=== PATIENT | male | born 1985 | race American Indian/Alaskan Native ===

== ENCOUNTER 2018-06-05 23:47 | Emergency (ER) | payer SELFPAY ==
[2018-06-05] MEDS ORDERED: ZOFRAN ONE (23:56)
[2018-06-05] MEDS ORDERED: NACL 0.9% 1000 ML 1,000 ML ONE (23:57)
[2018-06-06] MEDS ORDERED: NACL 0.9% 1000 ML 1,000 ML IV ONE ×2 (00:10→01:25)
[2018-06-06] MEDS ORDERED: ZOFRAN IV ONE (00:10)
[2018-06-06] MEDS ORDERED: PEPCID IV ONE (00:18)
[2018-06-06] MEDS ORDERED: HALDOL IM ONE (00:18)
--- NOTE | 2018-06-06 00:19 | Emergency Department Report ---
ED General Adult HPI - General Chief complaint: Nausea/Vomiting/Diarrhea Stated complaint: BLOOD IN EMESIS Time Seen by Provider: 06/06/18 00:13 Source: patient, EMS (ems notes not available at time of chart dictation), RN notes reviewed Mode of arrival: Stretcher Limitations: No Limitations - History of Present Illness Initial comments: This is a 32-year-old male who is unknown to this provider previously. Patient reports being a type II diabetic since the age of 18, also reports a history of appendectomy. he does not know his hemoglobin A1c. He presents to the ER with a complaint of left lower quadrant cramping, initial nonbloody, nonbilious emesis, and then subsequent multiple episodes of emesis, which have become coffee ground. His symptoms are constant, did not radiate anywhere, and did not have exacerbating or relieving factors. He denies testicular pain, and urinary symptoms. He denies cannabis consumption. He indicates his symptoms have no change when taking a hot bath or hot shower. -: Gradual Location: abdomen Quality: aching Consistency: constant Improves with: none Worsens with: none Associated Symptoms: diaphoresis, loss of appetite, malaise, nausea/vomiting, weakness. denies: confusion, chest pain, cough, fever/chills, headaches, rash, seizure, shortness of breath, syncope - Related Data Previous Rx's Medication Instructions Recorded Last Taken Type Acetaminophen [Tylenol Arthritis] 650 mg PO Q6HR PRN #30 tablet.er 06/06/18 Unknown Rx Famotidine [Pepcid] 20 mg PO BID #60 tablet 06/06/18 Unknown Rx Metoclopramide [Reglan] 10 mg PO QID PRN #30 tablet 06/06/18 Unknown Rx Promethazine [Phenergan SUPPOS] 50 mg AR Q6H PRN #20 supp.rect 06/06/18 Unknown Rx Allergies Allergy/AdvReac Type Severity Reaction Status Date / Time No Known Allergies Allergy Unverified 06/06/18 00:04 ED Review of Systems ROS: Stated complaint: BLOOD IN EMESIS Other details as noted in HPI Constitutional: malaise Eyes: denies: eye discharge ENT: denies: epistaxis Respiratory: denies: cough Cardiovascular: denies: chest pain Gastrointestinal: abdominal pain, nausea, vomiting Genitourinary: denies: urgency, dysuria Neurological: weakness ED Past Medical Hx - Past Medical History Hx Diabetes: Yes - Surgical History Past Surgical History?: No - Social History Smoking Status: Never Smoker Substance Use Type: None - Medications Home Medications: Home Medications Medication Instructions Recorded Confirmed Last Taken Type Acetaminophen [Tylenol Arthritis] 650 mg PO Q6HR PRN #30 tablet.er 06/06/18 Unknown Rx Famotidine [Pepcid] 20 mg PO BID #60 tablet 06/06/18 Unknown Rx Metoclopramide [Reglan] 10 mg PO QID PRN #30 tablet 06/06/18 Unknown Rx Promethazine [Phenergan SUPPOS] 50 mg AR Q6H PRN #20 supp.rect 06/06/18 Unknown Rx ED Physical Exam - General Limitations: No Limitations General appearance: alert, in distress - Head Head exam: Present: atraumatic, normocephalic - Eye Eye exam: Present: normal appearance, EOMI. Absent: nystagmus - ENT ENT exam: Present: normal exam, mucous membranes dry, normal external ear exam - Neck Neck exam: Present: normal inspection, full ROM - Respiratory Respiratory exam: Present: normal lung sounds bilaterally. Absent: respiratory distress - Cardiovascular Cardiovascular Exam: Present: normal rhythm, tachycardia, normal heart sounds. Absent: systolic murmur, diastolic murmur, rubs, gallop - GI/Abdominal GI/Abdominal exam: Present: soft. Absent: distended, tenderness, guarding, rebound, rigid, pulsatile mass - Rectal Rectal exam: Present: deferred - exam: Present: normal inspection, other (there is no testicular tenderness. There is normal testicular lie bilaterally. There is normal cremasteric reflex bilaterally.). Absent: testicular tenderness External exam: Present: normal external exam, other (escorted by nurse Ivette Singh) - Extremities Exam Extremities exam: Present: normal inspection, full ROM, normal capillary refill , other (2+ pulses noted in the bilateral upper, lower extremities. Compartments soft. No long bony tenderness. The pelvis is stable.). Absent: pedal edema, joint swelling, calf tenderness - Back Exam Back exam: Present: normal inspection, full ROM. Absent: tenderness, CVA tenderness (R), paraspinal tenderness, vertebral tenderness - Neurological Exam Neurological exam: Present: alert, CN II-XII intact, other (Extraocular movements intact. Tongue midline. No facial droop. Facial sensation intact to light touch in the V1, V2, V3 distribution bilaterally. 5 and 5 strength in 4 extremities.. Sensation is intact to light touch in 4 extremities.). Absent : motor sensory deficit - Psychiatric Psychiatric exam: Present: anxious - Skin Skin exam: Present: warm, dry, intact, normal color. Absent: rash ED Course Vital Signs 06/06/18 06/06/18 06/06/18 00:06 00:16 00:19 Temperature 98.7 F Pulse Rate 106 H 103 H Respiratory 18 20 Rate Blood Pressure 172/113 Blood Pressure 173/113 [Right] O2 Sat by Pulse 100 100 100 Oximetry 06/06/18 06/06/18 06/06/18 00:30 00:46 00:50 Temperature Pulse Rate 100 H 98 H 104 H Respiratory 12 15 17 Rate Blood Pressure 210/103 210/103 210/103 Blood Pressure [Right] O2 Sat by Pulse 96 97 95 Oximetry 06/06/18 06/06/18 06/06/18 00:52 00:54 00:56 Temperature Pulse Rate 98 H 106 H 105 H Respiratory 13 14 16 Rate Blood Pressure 210/103 210/103 210/103 Blood Pressure [Right] O2 Sat by Pulse 96 98 98 Oximetry 06/06/18 06/06/18 06/06/18 00:58 01:00 01:02 Temperature Pulse Rate 110 H 109 H 104 H Respiratory 17 11 L 15 Rate Blood Pressure 210/103 173/66 173/66 Blood Pressure [Right] O2 Sat by Pulse 98 98 99 Oximetry 06/06/18 06/06/18 06/06/18 01:04 01:06 01:08 Temperature Pulse Rate 100 H 105 H 101 H Respiratory 13 17 13 Rate Blood Pressure 173/66 173/66 173/66 Blood Pressure [Right] O2 Sat by Pulse 97 96 98 Oximetry 06/06/18 06/06/18 06/06/18 01:10 01:12 01:14 Temperature Pulse Rate 107 H 103 H 108 H Respiratory 17 12 20 Rate Blood Pressure 173/66 210/103 210/103 Blood Pressure [Right] O2 Sat by Pulse 99 99 98 Oximetry 06/06/18 06/06/18 01:16 01:18 Temperature Pulse Rate 106 H 104 H Respiratory 13 15 Rate Blood Pressure 210/103 210/103 Blood Pressure [Right] O2 Sat by Pulse 99 99 Oximetry - Reevaluation(s) Reevaluation #1: 06/06/18 00:46 Differential diagnosis, including not limited to: Constipation, gastroparesis, rheumatoid hyperemesis syndrome, cyclic vomiting syndrome, Ayaka-Cevallos tear Assessment and plan: 32-year-old male, diabetic, hyperglycemic, presenting initially with nontraumatic nausea and vomiting, and lower abdominal cramping. He is afebrile, and has no abdominal tenderness, rebound or guarding. Also a diabetic gastroparesis. He is medicated with Zofran, IV fluids, and 2.5 mg of IM Haldol. He will also be given insulin. Laboratory studies pending. Reevaluation #2: 06/06/18 01:26 Patient is looking much improved. He is currently sleeping. Heart rate in the low 100s. Blood pressure in the 170s. Laboratories demonstrate acute renal insufficiency, mild hyperglycemia and no anion gap acidosis. Does not have significant anemia. Hemodynamically stable. He can follow up with outpatient primary care for his mild renal insufficiency, mild anemia and hyperglycemia. Urinalysis is pending. Abdomen remained soft on repeat examination. Reevaluation #3: 06/06/18 02:37 Heart rate in the 90s. Blood pressure in the 150s, 160s. No active vomiting. Sleeping comfortably. Belly soft on yet another repeat examination. Patient appears to be medically suitable for discharge at this time. ED Medical Decision Making - Lab Data Result diagrams: 06/06/18 00:24 06/06/18 00:25 Critical care attestation.: If time is entered above; I have spent that time in minutes in the direct care of this critically ill patient, excluding procedure time. ED Disposition Clinical Impression: Nausea and vomiting Disposition: DC-01 TO HOME OR SELFCARE Is pt being admited?: No Does the pt Need Aspirin: No Condition: Stable Instructions: Acute Nausea and Vomiting (ED) Additional Instructions: Avoid consumption of alcohol, Motrin, ibuprofen, Naprosyn, Aleve. Laboratory studies indicated high blood sugar level as well as mild renal impairment. This is most likely coming from dehydration. Symptoms also most likely coming from combination of gastroparesis, secondary to diabetes, and small tear in the lining of the stomach (Ayaka Cevallos tear.) Take the pain medication, nausea medication as needed/directed. Take the Reglan first, and then use the Phenergan suppository as needed for intractable nausea, vomiting. Follow up with a primary care doctor within the next month for multiple abnormalities noted today, including mild renal insufficiency, as well as elevated blood pressure and elevated blood sugar level. Long-term complications of the aforementioned can cause stroke, disability, paralysis, loss of quality of life. Dr. Kraus is a local primary care doctor. Alternatively, the patient may follow up with the nephrology specialist, such as Dr. Reddy, for the mild renal impairment. Patient should also follow up with the gastroenterology specialist within the next [address] Gonzales is a local gastroenterology specialist. Please return to the ER right away with new pain, worsened pain, migration of pain, intractable nausea or vomiting, confusion, fevers or chills, inability to tolerate liquid feeds. Referrals: PRIMARY CARE, [Primary Care Provider] - 3-5 Days MARSHA KRAUS MD [Staff Physician] - 3-5 Days HELENA TATE MD [Staff Physician] - 3-5 Days CARLYN GONZALES MD [Staff Physician] - 3-5 Days
[2018-06-06] MEDS ORDERED: HumuLIN R IV ONE (00:42)
[2018-06-06 00:56] LABS: Hematocrit 32.2 % (35.5-45.6); Hemoglobin 10.4 gm/dl (11.8-15.2); Mean Corpuscular HGB Conc 32 % (32-34); Mean Corpuscular Hemoglobin 26 pg (28-32); Mean Corpuscular Volume 82 fl (84-94); Platelet Count 284 K/mm3 (140-440); Red Blood Count 3.94 M/mm3 (3.65-5.03)
[2018-06-06 01:12] LABS: Albumin 3.7 g/dL (3.9-5); Calcium 9.4 mg/dL (8.4-10.2)
[2018-06-06] MEDS ORDERED: APRESOLINE IV ONE (01:21)
[2018-06-06] MEDS ORDERED: HALDOL IM PRN (04:22)
[2018-06-06 05:44] VITALS: BP 162/99
== END 2018-06-06 05:46 | disposition home or self-care (01) ==
LOC: EDSEX → ED 23:47
DX: R11.2 Nausea with vomiting, unspecified (principal); R10.32 Left lower quadrant pain; R53.1 Weakness; E11.9 Type 2 diabetes mellitus without complications
CPT/HCPCS: 36415; 80053; 82805; 82962; 83690; 85027; 96361; 96372; 96374; 96375; 99284; J1630; J2405; J7030; J1815

== ENCOUNTER 2018-11-12 06:33 | Inpatient (IN) | payer SELFPAY ==
[2018-11-12] MEDS ORDERED: NACL 0.9% 1000 ML 1,000 ML IV ONE ×2 (07:13→12:52)
[2018-11-12] MEDS ORDERED: ZOFRAN IV ONE (08:03)
[2018-11-12] MEDS ORDERED: PROTONIX IV ONE (08:05)
[2018-11-12] MEDS ORDERED: CATAPRES PO ONE (08:09)
--- NOTE | 2018-11-12 08:10 | Emergency Department Report ---
HPI - General Chief Complaint: GI Bleed Time Seen by Provider: 11/12/18 07:55 - HPI HPI: Room 7 The patient is a 33-year-old male presenting with a chief complaint of hematemesis. The patient states this morning he developed vomiting with streaks of blood. The patient has a history of severe ulcerative esophagitis seen on EGD approximately one week ago. Patient states he has been compliant with all of his medication including his Protonix. Patient denies bright red blood per rectum or melena. Patient denies pain of any type Location: Gastrointestinal system Duration: Onset this morning Quality: Painless Severity: [See above] Modifying factors: [see above] Context: [see above] Mode of transportation: Unknown ED Past Medical Hx - Past Medical History Previous Medical History?: Yes Hx Hypertension: Yes Hx Diabetes: Yes Additional medical history: Ulcerative esophagitis - Surgical History Hx Appendectomy: Yes - Family History Family history: no significant - Social History Smoking Status: Never Smoker Substance Use Type: None (denies illicit drug use) - Medications Home Medications: Home Medications Medication Instructions Recorded Confirmed Last Taken Type Acetaminophen [Tylenol Arthritis] 650 mg PO Q6HR PRN #30 tablet.er 10/25/18 11/01/18 10/31/18 09:00 Rx Labetalol [Normodyne TAB] 300 mg PO BID #180 tablet 11/03/18 Unknown Rx Metoclopramide [Reglan TAB] 10 mg PO QID PRN #30 tablet 11/03/18 Unknown Rx Pantoprazole [Protonix TAB] 40 mg PO BID #60 tablet 11/03/18 Unknown Rx Promethazine [Phenergan SUPPOS] 50 mg LA Q6H PRN #20 supp.rect 11/03/18 Unknown Rx amLODIPine [Norvasc] 10 mg PO QDAY #30 tablet 11/03/18 Unknown Rx ED Review of Systems ROS: Stated complaint: EMESIS/BLOOD Other details as noted in HPI Constitutional: no symptoms reported Eyes: denies: eye pain ENT: denies: throat pain Respiratory: no symptoms reported Cardiovascular: denies: chest pain Endocrine: no symptoms reported Gastrointestinal: nausea, vomiting, hematemesis. denies: abdominal pain, melena, hematochezia Genitourinary: denies: dysuria Musculoskeletal: denies: back pain Neurological: denies: headache Physical Exam - Physical Exam Vital Signs: Vital Signs 11/12/18 07:09 Temperature 99.2 F Pulse Rate 117 H Respiratory 20 Rate Blood Pressure 214/113 O2 Sat by Pulse 98 Oximetry Physical Exam: GENERAL: The patient is well-developed well-nourished male lying on stretcher holding an emesis bag but not appearing to be in acute distress HEENT: Normocephalic. Atraumatic. Extraocular motions are intact. Patient has moist mucous membranes. Dried blood around mouth and nose NECK: Supple. Trachea midline CHEST/LUNGS: Clear to auscultation. There is no respiratory distress noted. HEART/CARDIOVASCULAR: Regular. There is no tachycardia. There is no gallop rub or murmur. ABDOMEN: Abdomen is soft, nontender. Patient has normal bowel sounds. There is no abdominal distention. SKIN: There is no rash. There is no edema. There is no diaphoresis. NEURO: The patient is awake, alert, and oriented. The patient is cooperative. The patient has normal speech MUSCULOSKELETAL: There is no evidence of acute injury. ED Course Vital Signs 11/12/18 07:09 Temperature 99.2 F Pulse Rate 117 H Respiratory 20 Rate Blood Pressure 214/113 O2 Sat by Pulse 98 Oximetry - Reevaluation(s) Reevaluation #1: 11/12/18 14:42 Patient has failed po challenge 2 despite medication. Will admit the patient to the hospital for intractable nausea and vomiting ED Medical Decision Making - Lab Data Result diagrams: 11/12/18 07:41 11/12/18 07:41 - EKG Data -: EKG Interpreted by Pa EKG shows normal: sinus rhythm Rate: tachycardia (116 bpm) - EKG Data When compared to previous EKG there are: previous EKG unavailable Interpretation: other (no ischemic changes seen) - Differential Diagnosis GI bleed Critical care attestation.: If time is entered above; I have spent that time in minutes in the direct care of this critically ill patient, excluding procedure time. ED Disposition Clinical Impression: Intractable nausea and vomiting, Ulcerative esophagitis Disposition: OP ADMIT IP TO THIS HOSP Is pt being admited?: Yes Does the pt Need Aspirin: No Condition: Fair Referrals: PRIMARY CARE,MD [Primary Care Provider] - 3-5 Days Forms: Accompanied Note Time of Disposition: 14:43 (hospitalist paged (Dr Gaytan))
[2018-11-12 08:21] LABS: Basophils # (Auto) 0.1 K/mm3 (0.0-0.1); Basophils % (Auto) 1.1 % (0.0-1.8); Eosinophils % (Auto) 0.1 % (0.0-4.3); Hematocrit 33.4 % (35.5-45.6); Hemoglobin 10.9 gm/dl (11.8-15.2); Lymphocytes # (Auto) 1.3 K/mm3 (1.2-5.4); Lymphocytes % (Auto) 14.5 % (13.4-35.0); Mean Corpuscular HGB Conc 33 % (32-34); Mean Corpuscular Volume 85 fl (84-94); Monocytes # (Auto) 0.6 K/mm3 (0.0-0.8); Monocytes % (Auto) 6.1 % (0.0-7.3); Platelet Count 437 K/mm3 (140-440); Red Blood Count 3.93 M/mm3 (3.65-5.03); Red Cell Distribution Width 15.4 % (13.2-15.2)
[2018-11-12 08:26] LABS: Albumin 2.6 g/dL (3.9-5); Calcium 9.2 mg/dL (8.4-10.2)
[2018-11-12 08:30] LABS: INR 0.94 (0.87-1.13)
[2018-11-12] MEDS ORDERED: NORMODYNE IV ONE ×2 (10:49→10:52)
[2018-11-12] MEDS ORDERED: REGLAN IV ONE (13:45)
[2018-11-12] MEDS ORDERED: PHENERGAN PR ONE (14:42)
[2018-11-12] MEDS ORDERED: SODIUM CHLORIDE FLUSH SYRINGE 10 ML IV PRN (21:20)
[2018-11-12] MEDS ORDERED: DILAUDID IV PRN (21:20)
[2018-11-12] MEDS ORDERED: TYLENOL PO PRN (21:20)
[2018-11-12] MEDS ORDERED: REGLAN PO PRN (21:20)
--- NOTE | 2018-11-12 21:20 | Event Note ---
Date: 11/12/18 See H/p in reports Upper GI Bleed
[2018-11-12] MEDS: D5NS 1,000 ML IV SCH (22:35)
[2018-11-12] MEDS: SODIUM CHLORIDE FLUSH SYRINGE 10 ML IV SCH (22:35)
[2018-11-12] MEDS: PROTONIX 80 MG in NACL 0.9% 100 ML IV SCH (22:35)
[2018-11-13 00:23] LABS: Hematocrit 29.5 % (35.5-45.6); Hemoglobin 9.9 gm/dl (11.8-15.2)
[2018-11-13] MEDS ORDERED: APRESOLINE IV PRN ×2 (00:31→07:33)
[2018-11-13] MEDS: PROTONIX 80 MG in NACL 0.9% 100 ML IV SCH (06:17)
[2018-11-13 06:33] LABS: Basophils # (Auto) 0.1 K/mm3 (0.0-0.1); Basophils % (Auto) 0.8 % (0.0-1.8); Eosinophils % (Auto) 0.2 % (0.0-4.3); Hematocrit 28.9 % (35.5-45.6); Hemoglobin 9.8 gm/dl (11.8-15.2); Lymphocytes % (Auto) 19.2 % (13.4-35.0); Mean Corpuscular HGB Conc 34 % (32-34); Mean Corpuscular Volume 84 fl (84-94); Monocytes # (Auto) 0.7 K/mm3 (0.0-0.8); Platelet Count 378 K/mm3 (140-440); Red Blood Count 3.43 M/mm3 (3.65-5.03); Red Cell Distribution Width 15.2 % (13.2-15.2)
[2018-11-13 07:01] LABS: Albumin 2.5 g/dL (3.9-5); Calcium 8.4 mg/dL (8.4-10.2)
--- NOTE | 2018-11-13 07:57 | History and Physical Report ---
CHIEF COMPLAINT: Hematemesis. HISTORY OF PRESENT ILLNESS: A 33-year-old male comes in for vomiting of blood since morning. The patient apparently had a severe ulcerative esophagitis on EGD approximately one week ago. The patient has been compliant with his medications including Protonix. Denies any bright red blood per rectum or melena. PAST MEDICAL HISTORY: Ulcerative esophagitis, hypertension, diabetes. PAST SURGICAL HISTORY: Appendectomy. FAMILY HISTORY: No significant family history. SOCIAL HISTORY: Does not smoke. No drugs. CURRENT MEDICATIONS: Protonix 40 mg twice a day, amlodipine 10 mg once a day, labetalol 300 mg twice a day. REVIEW OF SYSTEMS: Significant for hematemesis. No syncope. No melena, no bright red blood per rectum. A 14-point review of systems done. PHYSICAL EXAMINATION: GENERAL: Young male, cooperative during examination. VITAL SIGNS: Blood pressure is 209/120, temperature is 99.2, pulse is 100, respirations are 18. HEENT: Unremarkable. NECK: Supple, no lymphadenopathy, no thyromegaly. LUNGS: Clear to auscultation and percussion. Good air entry. CARDIOVASCULAR: S1, S2 heard. No gallop, no murmur, no rub. Apical impulse in left fifth intercostal space and midclavicular line. ABDOMEN: Soft and benign. No hepatosplenomegaly. No guarding, no rigidity. EXTREMITIES: Good pedal pulses. No pedal edema. CENTRAL NERVOUS SYSTEM: Alert and oriented x 4, nonfocal exam. SKIN: Normal. LABORATORY DATA: Significant for white count of 9300, H and H of 10.9 and 33.4, platelet count is 432,000. Electrolytes: Sodium is 142, potassium is 4.2, bicarbonate is 18, BUN and creatinine is 25 and 2.5. Total protein is 2.9, albumin is 2.6, glucose is 297. ASSESSMENT AND PLAN: 1. Upper gastrointestinal bleed. IV Protonix drip started. The patient's hemoglobin and hematocrit check q. 6-8 hours. Transfuse if necessary. If H and H is less than 8 and 24. IV fluids. 2. Uncontrolled diabetes. Accu-Cheks and insulin. 3. Hypertensive emergency. Catapres patch initiated. Also, hydralazine IV q.3 hours p.r.n. 4. Acute kidney injury. IV fluids for the time being. 5. Malnutrition. The patient's albumin of 2.6. We will get a dietary consult. 6. Deep venous thrombosis prophylaxis, SCDs only. JOB# [id number] MORRIS/NTS
[2018-11-13] MEDS: ZOFRAN IV PRN ×2 (09:35→23:20)
[2018-11-13 09:45] LABS: Hematocrit 27.9 % (35.5-45.6); Hemoglobin 9.4 gm/dl (11.8-15.2)
[2018-11-13] MEDS: HumaLOG SUB-Q SCH ×3 (10:00→17:39)
[2018-11-13] MEDS ORDERED: CATAPRES-TTS PATCH TD SCH (10:00)
--- NOTE | 2018-11-13 10:17 | Gastroenterology Consultation ---
<EZEQUIEL SMITH - Last Filed: 11/13/18 10:42> History of Present Illness - Reason for Consult Consult date: 11/13/18 UGIB Requesting physician: BRENDA MORFIN - History of Present Illness Patient is a 33 y/o male with PMH of HTN, DM (uncontrolled), PUD, appendectomy, and renal insufficiency who presented to ED with c/o hematemesis to which GI has been consulted. Patient is previously known to our service from 2 prior hospitalizations/consults within the last month for similar symptoms with patient undergoing an EGD on 10/20/18 and again on 11/01/18 that revealed ulcerative esophagitis. This morning patient was resting in bed w/o acute d istress. Reports onset of N/V that began on Saturday (3 days ago) with first few episodes with non-bloody emesis and then developed hematemesis with bright red blood. Last episode of hematemesis was yesterday morning (no active signs of bleeding overnight or this am per pt and nursing). No melena or hematochezia. Denies fever, CP, SOB, wt loss, abd pain, or LGI symptoms. No NSAID or alcohol use. No hx of liver disease. Admits to being noncompliant with taking PPI at home as previously recommended due to cost. Past History Past Medical History: diabetes, hypertension, other (PUD, renal insufficiency) Past Surgical History: appendectomy Social history: denies: smoking, alcohol abuse Family history: hypertension Medications and Allergies Allergies Allergy/AdvReac Type Severity Reaction Status Date / Time No Known Allergies Allergy Unverified 06/06/18 00:04 Home Medications Medication Instructions Recorded Confirmed Last Taken Type Labetalol [Normodyne TAB] 300 mg PO BID #180 tablet 11/03/18 11/12/18 Unknown Rx Metoclopramide [Reglan TAB] 10 mg PO QID PRN #30 tablet 11/03/18 11/12/18 Unknown Rx Pantoprazole [Protonix TAB] 40 mg PO BID #60 tablet 11/03/18 11/12/18 Unknown Rx Promethazine [Phenergan SUPPOS] 50 mg TN Q6H PRN #20 supp.rect 11/03/18 11/12/18 Unknown Rx amLODIPine [Norvasc] 10 mg PO QDAY #30 tablet 11/03/18 11/12/18 Unknown Rx Active Meds: Active Medications Acetaminophen (Tylenol) 650 mg PO Q4H PRN PRN Reason: Pain MILD(1-3)/Fever >100.5/LANZA Clonidine HCl (Catapres-Tts Patch) 0.2 mg TD Th KESHIA Hydralazine HCl (Apresoline) 10 mg IV Q3H PRN PRN Reason: Hypertension Hydralazine HCl (Apresoline) 10 mg IV Q6H KESHIA Hydromorphone HCl (Dilaudid) 0.5 mg IV Q3H PRN PRN Reason: Pain , Severe (7-10) Dextrose/Sodium Chloride (D5ns) 1,000 mls @ 100 mls/hr IV DIRECT [facility] Last Admin: 11/12/18 22:35 Dose: 100 mls/hr Documented by: Pantoprazole Sodium 80 mg/ (Sodium Chloride) 100 mls @ 10 mls/hr IV DIRECT KESHIA Last Admin: 11/13/18 06:17 Dose: 8 mg/hr, 10 mls/hr Documented by: Insulin Human Lispro (Humalog) 0 unit SUB-Q Q6HR [facility]; Protocol Metoclopramide HCl (Reglan) 10 mg PO Q6H PRN PRN Reason: Nausea And Vomiting Last Admin: 11/12/18 22:55 Dose: 10 mg Documented by: Ondansetron HCl (Zofran) 4 mg IV Q3H PRN PRN Reason: Nausea And Vomiting Last Admin: 11/13/18 09:35 Dose: 4 mg Documented by: Sodium Chloride (Sodium Chloride Flush Syringe 10 Ml) 10 ml IV BID [facility] Last Admin: 11/12/18 22:35 Dose: 10 ml Documented by: Sodium Chloride (Sodium Chloride Flush Syringe 10 Ml) 10 ml IV PRN PRN PRN Reason: LINE FLUSH medications reviewed/updated as required Review of Systems - Review of Systems All systems: negative Gastrointestinal: hematemesis Exam - Constitutional Vital Signs: Temp Pulse Resp BP Pulse Ox 99.2 F 92 H 18 199/103 100 11/13/18 05:25 11/13/18 06:08 11/13/18 05:25 11/13/18 06:08 11/12/18 21:45 General appearance: no acute distress - Respiratory Respiratory: bilateral: CTA - Cardiovascular Rhythm: regular Heart Sounds: Present: S1 & S2 - Gastrointestinal General gastrointestinal: Present: soft, non-tender, non-distended, normal bowel sounds - Neurologic Neurological: alert and oriented x3 - Labs CBC & Chem 7: 11/13/18 09:11 11/13/18 05:48 Lab Results: Laboratory Results - last 24 hr 11/12/18 11/13/18 11/13/18 23:51 05:48 05:48 WBC 10.3 RBC 3.43 L Hgb 9.9 L 9.8 L Hct 29.5 L 28.9 L MCV 84 MCH 29 MCHC 34 RDW 15.2 Plt Count 378 Lymph % (Auto) 19.2 [place] % (Auto) 7.0 Eos % (Auto) 0.2 Baso % (Auto) 0.8 Lymph # 2.0 [place] # 0.7 Eos # 0.0 Baso # 0.1 Seg Neutrophils % 72.8 H Seg Neutrophils # 7.5 Sodium 144 Potassium 4.3 Chloride 111.0 H Carbon Dioxide 24 Anion Gap 13 BUN 25 H Creatinine 2.3 H Estimated GFR 40 BUN/Creatinine Ratio 11 Glucose 283 H Calcium 8.4 Total Bilirubin 0.40 AST 16 ALT 12 Alkaline Phosphatase 56 Total Protein 4.8 L Albumin 2.5 L Albumin/Globulin Ratio 1.1 11/13/18 09:11 WBC RBC Hgb 9.4 L Hct 27.9 L MCV MCH MCHC RDW Plt Count Lymph % (Auto) [place] % (Auto) Eos % (Auto) Baso % (Auto) Lymph # [place] # Eos # Baso # Seg Neutrophils % Seg Neutrophils # Sodium Potassium Chloride Carbon Dioxide Anion Gap BUN Creatinine Estimated GFR BUN/Creatinine Ratio Glucose Calcium Total Bilirubin AST ALT Alkaline Phosphatase Total Protein Albumin Albumin/Globulin Ratio Assessment and Plan 1.UGIB 2.DM (uncontrolled) -H/H 9.4/27.9-stable compared to previous labs -continue to monitor H/H and transfuse as needed -patient reports N/V x 3 days with hematemesis noted after multiple episodes of vomiting. No melena or hematochezia. -no active signs of bleeding overnight or this am -currently HD stable -recent EGDs on 10/20/18 and 11/01/18 for similar symptoms showed ulcerative esophagitis -etiology-likely 2/2 known ulcerative esophagitis vs other (M-W tear?) -no plans to repeat EGD at this time unless overt bleeding develops -continue high dose PPI -okay for clear liquids as tolerated -continue supportive care (IVF, antiemetics, etc.) -optimize glycemic control (likely has gastroparesis although no diagnostic test yet; consider GES in future) -will follow <ULISES HAMLIN - Last Filed: 11/13/18 15:03> Medications and Allergies Active Meds: Active Medications Acetaminophen (Tylenol) 650 mg PO Q4H PRN PRN Reason: Pain MILD(1-3)/Fever >100.5/LANZA Clonidine HCl (Catapres-Tts Patch) 0.2 mg TD Th [facility] Last Admin: 11/13/18 13:06 Dose: 0.2 mg Documented by: Hydralazine HCl (Apresoline) 10 mg IV Q3H PRN PRN Reason: Hypertension Hydralazine HCl (Apresoline) 10 mg IV Q6H [facility] Last Admin: 11/13/18 11:09 Dose: 10 mg Documented by: Hydromorphone HCl (Dilaudid) 0.5 mg IV Q3H PRN PRN Reason: Pain , Severe (7-10) Dextrose/Sodium Chloride (D5ns) 1,000 mls @ 100 mls/hr IV DIRECT [facility] Last Admin: 11/12/18 22:35 Dose: 100 mls/hr Documented by: Insulin Human Lispro (Humalog) 0 unit SUB-Q Q6HR [facility]; Protocol Last Admin: 11/13/18 12:57 Dose: 4 unit Documented by: Metoclopramide HCl (Reglan) 10 mg PO Q6H PRN PRN Reason: Nausea And Vomiting Last Admin: 11/12/18 22:55 Dose: 10 mg Documented by: Ondansetron HCl (Zofran) 4 mg IV Q3H PRN PRN Reason: Nausea And Vomiting Last Admin: 11/13/18 09:35 Dose: 4 mg Documented by: Pantoprazole Sodium (Protonix) 40 mg IV BID [facility] Sodium Chloride (Sodium Chloride Flush Syringe 10 Ml) 10 ml IV BID [facility] Last Admin: 11/13/18 11:10 Dose: 10 ml Documented by: Sodium Chloride (Sodium Chloride Flush Syringe 10 Ml) 10 ml IV PRN PRN PRN Reason: LINE FLUSH Exam - Constitutional Vital Signs: Temp Pulse Resp BP Pulse Ox 99.9 F H 101 H 20 172/104 99 11/13/18 11:03 11/13/18 14:00 11/13/18 11:03 11/13/18 14:00 11/12/18 22:20 - Labs CBC & Chem 7: 11/13/18 09:11 11/13/18 05:48 Lab Results: Laboratory Results - last 24 hr 11/12/18 11/13/18 11/13/18 23:51 05:48 05:48 WBC 10.3 RBC 3.43 L Hgb 9.9 L 9.8 L Hct 29.5 L 28.9 L MCV 84 MCH 29 MCHC 34 RDW 15.2 Plt Count 378 Lymph % (Auto) 19.2 [place] % (Auto) 7.0 Eos % (Auto) 0.2 Baso % (Auto) 0.8 Lymph # 2.0 [place] # 0.7 Eos # 0.0 Baso # 0.1 Seg Neutrophils % 72.8 H Seg Neutrophils # 7.5 Sodium 144 Potassium 4.3 Chloride 111.0 H Carbon Dioxide 24 Anion Gap 13 BUN 25 H Creatinine 2.3 H Estimated GFR 40 BUN/Creatinine Ratio 11 Glucose 283 H POC Glucose Calcium 8.4 Total Bilirubin 0.40 AST 16 ALT 12 Alkaline Phosphatase 56 Total Protein 4.8 L Albumin 2.5 L Albumin/Globulin Ratio 1.1 11/13/18 11/13/18 09:11 11:33 WBC RBC Hgb 9.4 L Hct 27.9 L MCV MCH MCHC RDW Plt Count Lymph % (Auto) [place] % (Auto) Eos % (Auto) Baso % (Auto) Lymph # [place] # Eos # Baso # Seg Neutrophils % Seg Neutrophils # Sodium Potassium Chloride Carbon Dioxide Anion Gap BUN Creatinine Estimated GFR BUN/Creatinine Ratio Glucose POC Glucose 292 H Calcium Total Bilirubin AST ALT Alkaline Phosphatase Total Protein Albumin Albumin/Globulin Ratio Assessment and Plan Pt seen and examined. Has known ulcerative esophagitis, scoped x 2 last month. Not taking meds at home. - would avoid narcotics - Consider SW referral so pt can be seen in indigent clinic and get help with meds. No further GI recommendations. Will sign off. Thanks.
[2018-11-13] MEDS: APRESOLINE IV SCH ×3 (11:09→22:29)
[2018-11-13] MEDS: SODIUM CHLORIDE FLUSH SYRINGE 10 ML IV SCH ×2 (11:10→22:30)
--- NOTE | 2018-11-13 11:53 | Progress Note ---
Assessment and Plan Assessment and plan: Acute GI bleed with hematemesis. Now resolved H/H stable. Discussed with GI-no plans for EGD since H/H stable EGD done X2 within past 1 month-revealed ulcertaive Esophagitis Protonix bid Hypertension Monotor BP Diabetes mellitus type 2. Monitor Qac and HS Full code History Interval history: Vomiting blood Hospitalist Physical - Physical exam Narrative exam: GEN: Not in acute distress, HEENT: Normocephalic, atraumatic, Neck: supple, No JVD Lungs: Clear to auscultation, no wheeze Heart:S1 and S2 regular, no murmurs, rubs or gallop, Abd:soft, non tender, non distended, normal bowel sounds Ext: No edema, no clubbing or cyanosis Neuro: Awake,alert, oriented x 3, No focal signs - Constitutional Vitals: Temp Pulse Resp BP Pulse Ox 99.2 F 92 H 18 195/111 100 11/13/18 05:25 11/13/18 11:09 11/13/18 05:25 11/13/18 11:09 11/12/18 21:45 Results - Labs CBC & Chem 7: 11/13/18 09:11 11/13/18 05:48 Labs: Laboratory Last Values WBC 10.3 K/mm3 (4.5-11.0) 11/13/18 05:48 RBC 3.43 M/mm3 (3.65-5.03) L 11/13/18 05:48 Hgb 9.4 gm/dl (11.8-15.2) L 11/13/18 09:11 Hct 27.9 % (35.5-45.6) L 11/13/18 09:11 MCV 84 fl (84-94) 11/13/18 05:48 MCH 29 pg (28-32) 11/13/18 05:48 MCHC 34 % (32-34) 11/13/18 05:48 RDW 15.2 % (13.2-15.2) 11/13/18 05:48 Plt Count 378 K/mm3 (140-440) 11/13/18 05:48 Lymph % (Auto) 19.2 % (13.4-35.0) 11/13/18 05:48 [place] % (Auto) 7.0 % (0.0-7.3) 11/13/18 05:48 Eos % (Auto) 0.2 % (0.0-4.3) 11/13/18 05:48 Baso % (Auto) 0.8 % (0.0-1.8) 11/13/18 05:48 Lymph # 2.0 K/mm3 (1.2-5.4) 11/13/18 05:48 [place] # 0.7 K/mm3 (0.0-0.8) 11/13/18 05:48 Eos # 0.0 K/mm3 (0.0-0.4) 11/13/18 05:48 Baso # 0.1 K/mm3 (0.0-0.1) 11/13/18 05:48 Seg Neutrophils % 72.8 % (40.0-70.0) H 11/13/18 05:48 Seg Neutrophils # 7.5 K/mm3 (1.8-7.7) 11/13/18 05:48 PT 13.0 Sec. (12.2-14.9) 11/12/18 07:41 INR 0.94 (0.87-1.13) 11/12/18 07:41 APTT 25.0 Sec. (24.2-36.6) 11/12/18 07:41 Sodium 144 mmol/L (137-145) 11/13/18 05:48 Potassium 4.3 mmol/L (3.6-5.0) 11/13/18 05:48 Chloride 111.0 mmol/L (98-107) H 11/13/18 05:48 Carbon Dioxide 24 mmol/L (22-30) 11/13/18 05:48 Anion Gap 13 mmol/L 11/13/18 05:48 BUN 25 mg/dL (9-20) H 11/13/18 05:48 Creatinine 2.3 mg/dL (0.8-1.5) H 11/13/18 05:48 Estimated GFR 40 ml/min 11/13/18 05:48 BUN/Creatinine Ratio 11 % 11/13/18 05:48 Glucose 283 mg/dL (75-100) H 11/13/18 05:48 POC Glucose 292 (70-105) H 11/13/18 11:33 Calcium 8.4 mg/dL (8.4-10.2) 11/13/18 05:48 Total Bilirubin 0.40 mg/dL (0.1-1.2) 11/13/18 05:48 AST 16 units/L (5-40) 11/13/18 05:48 ALT 12 units/L (7-56) 11/13/18 05:48 Alkaline Phosphatase 56 units/L (35-129) 11/13/18 05:48 Total Protein 4.8 g/dL (6.3-8.2) L 11/13/18 05:48 Albumin 2.5 g/dL (3.9-5) L 11/13/18 05:48 Albumin/Globulin Ratio 1.1 % 11/13/18 05:48 Lipase 36 units/L (13-60) 11/12/18 07:41 Blood Type O POSITIVE 11/12/18 07:41 Antibody Screen Negative 11/12/18 07:41
[2018-11-13] MEDS: D5NS 1,000 ML IV SCH (19:03)
[2018-11-13] MEDS: PROTONIX IV SCH (22:29)
[2018-11-13] MEDS: NORVASC PO SCH (23:20)
[2018-11-13] MEDS: NORMODYNE PO SCH (23:21)
[2018-11-14] MEDS: HumaLOG SUB-Q SCH ×4 (01:14→16:30)
[2018-11-14] MEDS: ZOFRAN IV PRN ×4 (04:37→17:30)
[2018-11-14] MEDS: APRESOLINE IV SCH ×3 (04:38→17:30)
[2018-11-14] MEDS: D5NS 1,000 ML IV SCH (04:38)
[2018-11-14 05:37] LABS: Hematocrit 27.4 % (35.5-45.6); Hemoglobin 9.2 gm/dl (11.8-15.2)
[2018-11-14] MEDS: PROTONIX IV SCH ×2 (07:51→17:31)
[2018-11-14] MEDS: NORMODYNE PO SCH (11:47)
[2018-11-14] MEDS ORDERED: HumaLOG SUB-Q ONE ×2 (12:53→15:37)
[2018-11-14] MEDS: SODIUM CHLORIDE FLUSH SYRINGE 10 ML IV SCH (13:25)
[2018-11-14] MEDS: NORVASC PO SCH (13:25)
--- NOTE | 2018-11-14 15:42 | Discharge Summary ---
Providers - Providers Date of Admission: 11/12/18 21:20 Date of discharge: 11/14/18 Attending physician: GAIL PERRY 11/12/18 21:20 Consult to Physician [CONS] Routine Comment: Consulting Provider: ULISES GARCIA Physician Instructions: Reason For Exam: UGI Bleed Primary care physician: BOOKKEEPING ASSISTANT Hospitalization Condition: Fair Hospital course: Patient is 33-year-old with history of ulcerative esophagitis. He presented with vomiting of blood. He was evaluated in Emergency Department, hemoglobin was 10.9. He was admitted for further management. Serial H/H was stable. Patient evaluated by GI physician. He has had 2 EGDs in less than a month and his H&H was stable therefore GI Physician recommended patient to be discharged home to follow as outpatient. Disposition: TO HOME OR SELFCARE - Discharge Diagnoses (1) Hematemesis Status: Acute (2) Upper GI bleed Status: Acute (3) HTN (hypertension) Status: Chronic Qualifiers: (4) T2DM (type 2 diabetes mellitus) Status: Chronic Core Measure Documentation - Palliative Care Palliative Care/ Comfort Measures: Not Applicable - Core Measures Any of the following diagnoses?: none Exam - Constitutional Vitals: Temp Pulse Resp BP Pulse Ox 99.0 F 113 H 20 170/77 98 11/14/18 06:14 11/14/18 13:25 11/14/18 06:14 11/14/18 13:25 11/14/18 06:14 Plan Activity: no restrictions Diet: low fat, low cholesterol, low salt, other (GI soft diet) Additional Instructions: 1.Follow up with PCP or [facility] in 1 week. 2.Follow up with Dr. Garcia in 1 week. Follow up with: PRIMARY MD ISABEL [Primary Care Provider] - 3-5 Days Forms: Accompanied Note
[2018-11-14 17:30] VITALS: BP 148/76
== END 2018-11-14 19:30 | disposition home or self-care (01) | DRG 378 ==
LOC: ED 06:33 → 3A 21:20
PROVIDERS: ADMIT Internal Medicine; ATTEND Internal Medicine
DX: K92.0 Hematemesis (principal); E46 Unspecified protein-calorie malnutrition; N17.9 Acute kidney failure, unspecified; I16.1 Hypertensive emergency; I10 Essential (primary) hypertension; E11.65 Type 2 diabetes mellitus with hyperglycemia; Z90.49 Acquired absence of other specified parts of digestive tract; Z79.899 Other long term (current) drug therapy; Z87.11 Personal history of peptic ulcer disease; Z82.49 Family history of ischemic heart disease and other diseases of the circulatory system; Z68.28 Body mass index [BMI] 28.0-28.9, adult
CPT/HCPCS: 36415; 80053; 82962; 83036; 83690; 85014; 85018; 85025; 85610; 85730; 86850; 86900; 86901; 93005; 93010; 96361; 96374; 96375; G0378; C9113; J0360; J1815; J2405; J2765; J7030; J7042

== ENCOUNTER 2018-11-21 17:41 | Inpatient (IN) | payer SELFPAY ==
[2018-11-21] MEDS ORDERED: ZOFRAN IV ONE ×2 (17:57→19:16)
[2018-11-21] MEDS ORDERED: ZOFRAN ONE (18:01)
[2018-11-21 18:43] LABS: Basophils # (Auto) 0.1 K/mm3 (0.0-0.1); Basophils % (Auto) 0.9 % (0.0-1.8); Eosinophils # (Auto) 0.1 K/mm3 (0.0-0.4); Eosinophils % (Auto) 1.2 % (0.0-4.3); Hematocrit 33.5 % (35.5-45.6); Lymphocytes # (Auto) 1.3 K/mm3 (1.2-5.4); Lymphocytes % (Auto) 18.6 % (13.4-35.0); Mean Corpuscular HGB Conc 33 % (32-34); Mean Corpuscular Volume 86 fl (84-94); Monocytes # (Auto) 0.3 K/mm3 (0.0-0.8); Monocytes % (Auto) 4.6 % (0.0-7.3); Platelet Count 369 K/mm3 (140-440); Red Blood Count 3.92 M/mm3 (3.65-5.03); Red Cell Distribution Width 15.4 % (13.2-15.2)
[2018-11-21] MEDS ORDERED: PROTONIX IV ONE (18:47)
[2018-11-21] MEDS ORDERED: PROTONIX 80 MG in NACL 0.9% 100 ML IV ONE (18:47)
[2018-11-21] MEDS ORDERED: NACL 0.9% 1000 ML 1,000 ML IV ONE ×2 (18:47→18:49)
[2018-11-21 18:56] LABS: Calcium 8.9 mg/dL (8.4-10.2)
[2018-11-21] MEDS ORDERED: APRESOLINE IV ONE (19:18)
[2018-11-21] MEDS ORDERED: REGLAN IV ONE (19:18)
--- NOTE | 2018-11-21 19:18 | Emergency Department Report ---
ED GI Bleed HPI - General Chief complaint: GI Bleed Stated complaint: VOMITING BLOOD Time Seen by Provider: 11/21/18 18:31 Source: patient Mode of arrival: Stretcher Limitations: No Limitations - History of Present Illness MD complaint: coffee ground emesis -: Sudden, This afternoon Severity scale (0 -10): 0 Consistency: constant Improves with: none Worsens with: none Context: history of GI bleed Associated Symptoms: nausea, vomiting Treatments Prior to Arrival: none - Related Data Home Medications Medication Instructions Recorded Confirmed Last Taken Humalog 7 units SC AC 11/14/18 11/14/18 11/12/18 Levemir VIAL 15 units SC HS 11/14/18 11/14/18 11/12/18 Previous Rx's Medication Instructions Recorded Last Taken Type Metoclopramide [Reglan TAB] 10 mg PO QID PRN #30 tablet 11/03/18 Unknown Rx Promethazine [Phenergan SUPPOS] [address] Q6H PRN #20 supp.rect 11/03/18 Unknown Rx Hydralazine HCl 50 mg PO TID 30 Days tablet 11/14/18 Unknown Rx Labetalol [Normodyne TAB] 300 mg PO BID 30 Days tablet 11/14/18 Unknown Rx Pantoprazole [Protonix TAB] 40 mg PO BID #60 tablet 11/14/18 Unknown Rx amLODIPine [Norvasc] 10 mg PO QDAY #30 tablet 11/14/18 Unknown Rx Allergies Allergy/AdvReac Type Severity Reaction Status Date / Time No Known Allergies Allergy Verified 11/21/18 17:51 ED Review of Systems ROS: Stated complaint: VOMITING BLOOD Other details as noted in HPI Comment: All other systems reviewed and negative Constitutional: denies: chills, fever Eyes: denies: eye pain, eye discharge, vision change ENT: denies: ear pain, throat pain Respiratory: denies: cough, shortness of breath, wheezing Cardiovascular: denies: chest pain, palpitations Endocrine: no symptoms reported Gastrointestinal: nausea, vomiting, hematemesis (coffee grounds). denies: abdominal pain, diarrhea Genitourinary: denies: urgency, dysuria Musculoskeletal: denies: back pain, joint swelling, arthralgia Skin: denies: rash, lesions Neurological: denies: headache, weakness, numbness, paresthesias Psychiatric: denies: anxiety, depression Hematological/Lymphatic: denies: easy bleeding, easy bruising ED Past Medical Hx - Past Medical History Hx Hypertension: Yes Hx Heart Attack/AMI: No Hx Congestive Heart Failure: No Hx Diabetes: Yes Hx Asthma: Yes Hx COPD: No Additional medical history: Ulcerative esophagitis - Surgical History Hx Appendectomy: Yes - Social History Smoking Status: Never Smoker Substance Use Type: None - Medications Home Medications: Home Medications Medication Instructions Recorded Confirmed Last Taken Type Metoclopramide [Reglan TAB] 10 mg PO QID PRN #30 tablet 11/03/18 11/12/18 Unknown Rx Promethazine [Phenergan SUPPOS] [address] Q6H PRN #20 supp.rect 11/03/18 11/12/18 Unknown Rx Humalog 7 units SC AC 11/14/18 11/14/18 11/12/18 History Hydralazine HCl 50 mg PO TID 30 Days tablet 11/14/18 Unknown Rx Labetalol [Normodyne TAB] 300 mg PO BID 30 Days tablet 11/14/18 Unknown Rx Levemir VIAL 15 units SC HS 11/14/18 11/14/18 11/12/18 History Pantoprazole [Protonix TAB] 40 mg PO BID #60 tablet 11/14/18 Unknown Rx amLODIPine [Norvasc] 10 mg PO QDAY #30 tablet 11/14/18 Unknown Rx ED Physical Exam - General Limitations: No Limitations General appearance: alert, in no apparent distress - Head Head exam: Present: atraumatic, normocephalic, normal inspection - Eye Eye exam: Present: normal appearance Pupils: Present: normal accommodation - ENT ENT exam: Present: mucous membranes moist - Neck Neck exam: Present: normal inspection - Respiratory Respiratory exam: Present: normal lung sounds bilaterally. Absent: respiratory distress - Cardiovascular Cardiovascular Exam: Present: regular rate, normal rhythm, normal heart sounds. Absent: systolic murmur, diastolic murmur, rubs, gallop - GI/Abdominal GI/Abdominal exam: Present: soft, normal bowel sounds. Absent: distended, tenderness, guarding, rebound - Rectal Rectal exam: Present: deferred - Extremities Exam Extremities exam: Present: normal inspection, full ROM, normal capillary refill - Back Exam Back exam: Present: normal inspection, full ROM - Neurological Exam Neurological exam: Present: alert, oriented X3, CN II-XII intact - Psychiatric Psychiatric exam: Present: normal affect, normal mood - Skin Skin exam: Present: warm, intact, normal color, diaphoretic. Absent: rash ED Course Vital Signs 11/21/18 11/21/18 11/21/18 17:54 19:40 19:45 Temperature 99.4 F Pulse Rate 94 H 93 H 94 H Respiratory 18 12 13 Rate Blood Pressure 175/99 Blood Pressure 200/109 186/107 [Right] O2 Sat by Pulse 100 94 100 Oximetry 11/21/18 11/21/18 11/21/18 20:00 20:15 20:30 Temperature Pulse Rate 100 H 106 H 106 H Respiratory 15 16 16 Rate Blood Pressure 167/98 162/89 163/99 Blood Pressure [Right] O2 Sat by Pulse 100 99 Oximetry 11/21/18 11/21/18 11/21/18 20:46 21:06 21:15 Temperature Pulse Rate 125 H 110 H 101 H Respiratory 18 19 15 Rate Blood Pressure 135/78 135/78 151/92 Blood Pressure [Right] O2 Sat by Pulse 99 91 Oximetry - Consultations Consultation #1: 11/21/18 20:45 I consulted the [employer] Repairer outbound sales consultant Dr Kian Stokes, she wants patient admitte d by the hospitalist for further management. Consultation #2: 11/21/18 21:05 Dr Raquel Ward to admit patient. - EJ/Peripheral Line Neck R Time Out Performed: Yes Indications: nurses unable to establis Skin Cleansed in Sterile Fashion: Yes Size: 18 Dressing Placed: Tegaderm, tape Patient Tolerated Procedure: well, no complications ED Medical Decision Making - Lab Data Result diagrams: 11/21/18 21:20 11/21/18 18:22 Lab Results 11/21/18 11/21/18 11/21/18 Range/Units 18:04 18:22 18:22 WBC 6.9 (4.5-11.0) K/mm3 RBC 3.92 (3.65-5.03) M/mm3 Hgb 11.0 L (11.8-15.2) gm/dl Hct 33.5 L (35.5-45.6) % MCV 86 (84-94) fl MCH 28 (28-32) pg MCHC 33 (32-34) % RDW 15.4 H (13.2-15.2) % Plt Count 369 (140-440) K/mm3 Lymph % (Auto) 18.6 (13.4-35.0) % [place] % (Auto) 4.6 (0.0-7.3) % Eos % (Auto) 1.2 (0.0-4.3) % Baso % (Auto) 0.9 (0.0-1.8) % Lymph # 1.3 (1.2-5.4) K/mm3 [place] # 0.3 (0.0-0.8) K/mm3 Eos # 0.1 (0.0-0.4) K/mm3 Baso # 0.1 (0.0-0.1) K/mm3 Seg Neutrophils % 74.7 H (40.0-70.0) % Seg Neutrophils # 5.2 (1.8-7.7) K/mm3 PT (12.2-14.9) Sec. INR (0.87-1.13) APTT (24.2-36.6) Sec. Sodium 141 (137-145) mmol/L Potassium 4.5 (3.6-5.0) mmol/L Chloride 103.3 (98-107) mmol/L Carbon Dioxide 23 (22-30) mmol/L Anion Gap 19 mmol/L BUN 19 (9-20) mg/dL Creatinine 2.5 H (0.8-1.5) mg/dL Estimated GFR 37 ml/min BUN/Creatinine Ratio 8 % Glucose 225 H (75-100) mg/dL POC Glucose 222 H (70-105) Lactic Acid (0.7-2.0) mmol/L Calcium 8.9 (8.4-10.2) mg/dL Magnesium (1.7-2.3) mg/dL Total Bilirubin (0.1-1.2) mg/dL AST (5-40) units/L ALT (7-56) units/L Alkaline Phosphatase (35-129) units/L Total Protein (6.3-8.2) g/dL Albumin (3.9-5) g/dL Albumin/Globulin Ratio % Lipase (13-60) units/L Blood Type Antibody Screen Crossmatch 11/21/18 11/21/18 11/21/18 Range/Units 18:22 18:22 19:07 WBC 6.2 (4.5-11.0) K/mm3 RBC 3.37 L (3.65-5.03) M/mm3 Hgb 9.2 L (11.8-15.2) gm/dl Hct 28.3 L (35.5-45.6) % MCV 84 (84-94) fl MCH 27 L (28-32) pg MCHC 33 (32-34) % RDW 14.9 (13.2-15.2) % Plt Count 382 (140-440) K/mm3 Lymph % (Auto) 15.1 (13.4-35.0) % [place] % (Auto) 6.3 (0.0-7.3) % Eos % (Auto) 0.8 (0.0-4.3) % Baso % (Auto) 1.3 (0.0-1.8) % Lymph # 0.9 L (1.2-5.4) K/mm3 [place] # 0.4 (0.0-0.8) K/mm3 Eos # 0.1 (0.0-0.4) K/mm3 Baso # 0.1 (0.0-0.1) K/mm3 Seg Neutrophils % 76.5 H (40.0-70.0) % Seg Neutrophils # 4.8 (1.8-7.7) K/mm3 PT (12.2-14.9) Sec. INR (0.87-1.13) APTT (24.2-36.6) Sec. Sodium 141 (137-145) mmol/L Potassium 4.5 (3.6-5.0) mmol/L Chloride 103.7 (98-107) mmol/L Carbon Dioxide 22 (22-30) mmol/L Anion Gap 20 mmol/L BUN 18 (9-20) mg/dL Creatinine 2.6 H (0.8-1.5) mg/dL Estimated GFR 35 ml/min BUN/Creatinine Ratio 7 % Glucose 236 H (75-100) mg/dL POC Glucose (70-105) Lactic Acid (0.7-2.0) mmol/L Calcium 9.0 (8.4-10.2) mg/dL Magnesium 1.90 (1.7-2.3) mg/dL Total Bilirubin 0.40 (0.1-1.2) mg/dL AST 19 (5-40) units/L ALT 13 (7-56) units/L Alkaline Phosphatase 71 (35-129) units/L Total Protein 5.4 L (6.3-8.2) g/dL Albumin 3.0 L (3.9-5) g/dL Albumin/Globulin Ratio 1.3 % Lipase 24 (13-60) units/L Blood Type O POSITIVE Antibody Screen Negative Crossmatch See Detail 11/21/18 11/21/18 11/21/18 Range/Units 19:07 19:07 21:20 WBC (4.5-11.0) K/mm3 RBC (3.65-5.03) M/mm3 Hgb 9.4 L (11.8-15.2) gm/dl Hct 26.6 L (35.5-45.6) % MCV (84-94) fl MCH (28-32) pg MCHC (32-34) % RDW (13.2-15.2) % Plt Count (140-440) K/mm3 Lymph % (Auto) (13.4-35.0) % [place] % (Auto) (0.0-7.3) % Eos % (Auto) (0.0-4.3) % Baso % (Auto) (0.0-1.8) % Lymph # (1.2-5.4) K/mm3 [place] # (0.0-0.8) K/mm3 Eos # (0.0-0.4) K/mm3 Baso # (0.0-0.1) K/mm3 Seg Neutrophils % (40.0-70.0) % Seg Neutrophils # (1.8-7.7) K/mm3 PT 13.1 (12.2-14.9) Sec. INR 0.95 (0.87-1.13) APTT 24.4 (24.2-36.6) Sec. Sodium (137-145) mmol/L Potassium (3.6-5.0) mmol/L Chloride (98-107) mmol/L Carbon Dioxide (22-30) mmol/L Anion Gap mmol/L BUN (9-20) mg/dL Creatinine (0.8-1.5) mg/dL Estimated GFR ml/min BUN/Creatinine Ratio % Glucose (75-100) mg/dL POC Glucose (70-105) Lactic Acid 1.10 (0.7-2.0) mmol/L Calcium (8.4-10.2) mg/dL Magnesium (1.7-2.3) mg/dL Total Bilirubin (0.1-1.2) mg/dL AST (5-40) units/L ALT (7-56) units/L Alkaline Phosphatase (35-129) units/L Total Protein (6.3-8.2) g/dL Albumin (3.9-5) g/dL Albumin/Globulin Ratio % Lipase (13-60) units/L Blood Type Antibody Screen Crossmatch - Radiology Data Radiology results: report reviewed, image reviewed CXR is negative. - Medical Decision Making Upper G.I. Bleeding. Poorly controlled Diabetes. Intractable Nausea and vomiting. Critical Care Time: Yes Critical care time in (mins) excluding proc time.: 65 Critical care attestation.: If time is entered above; I have spent that time in minutes in the direct care of this critically ill patient, excluding procedure time. ED Disposition Clinical Impression: Upper GI bleed Intractable nausea and vomiting Qualifiers: Vomiting type: unspecified Qualified Code(s): R11.2 - Nausea with vomiting, unspecified Uncontrolled diabetes mellitus Qualifiers: Diabetes mellitus type: type 2 Glycemic state: with hyperglycemia Qualified Code(s): E11.65 - Type 2 diabetes mellitus with hyperglycemia Disposition: 09 OP ADMIT IP TO THIS HOSP Is pt being admited?: Yes Does the pt Need Aspirin: No Condition: Stable Instructions: Diabetes Mellitus Type 2 in Adults (ED) Referrals: PRIMARY CARE, [Primary Care Provider] - 3-5 Days Forms: Accompanied Note Time of Disposition: 21:10
[2018-11-21 20:17] LABS: Basophils # (Auto) 0.1 K/mm3 (0.0-0.1); Basophils % (Auto) 1.3 % (0.0-1.8); Eosinophils # (Auto) 0.1 K/mm3 (0.0-0.4); Eosinophils % (Auto) 0.8 % (0.0-4.3); Hematocrit 28.3 % (35.5-45.6); Hemoglobin 9.2 gm/dl (11.8-15.2); Lymphocytes # (Auto) 0.9 K/mm3 (1.2-5.4); Lymphocytes % (Auto) 15.1 % (13.4-35.0); Mean Corpuscular HGB Conc 33 % (32-34); Mean Corpuscular Volume 84 fl (84-94); Monocytes # (Auto) 0.4 K/mm3 (0.0-0.8); Monocytes % (Auto) 6.3 % (0.0-7.3); Platelet Count 382 K/mm3 (140-440); Red Blood Count 3.37 M/mm3 (3.65-5.03); Red Cell Distribution Width 14.9 % (13.2-15.2)
--- NOTE | 2018-11-21 20:19 | XRay Report ---
FINAL REPORT PROCEDURE: Chest. TECHNIQUE: Portable AP view. HISTORY: Gastrointestinal hemorrhage. COMPARISON: Chest 11/01/2018. FINDINGS: The heart and mediastinum appear normal. The lungs are clear and well expanded. There are no pleural effusions. The soft tissues and regional skeleton are unremarkable. IMPRESSION: Negative portable chest.
[2018-11-21 20:22] LABS: INR 0.95 (0.87-1.13)
[2018-11-21 20:23] LABS: Partial Thromboplastin Time 24.4 Sec. (24.2-36.6)
[2018-11-21] MEDS ORDERED: NACL 0.9% 500 ML 500 ML IV ONE (20:25)
[2018-11-21] MEDS ORDERED: PHENERGAN PR ONE (20:27)
[2018-11-21 21:43] LABS: Hematocrit 26.6 % (35.5-45.6); Hemoglobin 9.4 gm/dl (11.8-15.2)
[2018-11-21] MEDS ORDERED: SODIUM CHLORIDE FLUSH SYRINGE 10 ML IV PRN (22:31)
[2018-11-21] MEDS ORDERED: TYLENOL PO PRN (22:31)
[2018-11-21] MEDS ORDERED: D50W (25GM) Syringe IV PRN (22:31)
[2018-11-21] MEDS ORDERED: REGLAN IV PRN (22:31)
--- NOTE | 2018-11-21 22:34 | History and Physical Report ---
History of Present Illness Date of examination: 11/21/18 History of present illness: 33-year-old man with a history of hypertension, diabetes, complicated by gastroparesis, chronic kidney disease, gastric ulcer comes emergency room because he has been vomiting blood today, 8 episodes. Prior to this he had several episodes of nausea vomiting. Admits to dizziness, mild shortness of breath, no melena. Status post endoscopy in October which shows esophagitis Review of systems Constitutional: no weight loss, chills, fever Ears, eyes, nose, mouth and throat: no nasal congestion, no nasal discharge, no sinus pressure, no vision change, no red eye. Neck: No neck pain or rigidity. Cardiovascular: no chest pain, palpitations Respiratory: no cough Gastrointestinal: no hematochezia, abdominal pain Genitourinary : no frequency , no hematuria Musculoskeletal: no joint swelling or muscle ache Integumentary: no rash, no pruritis Neurological: no parathesias, no numbness, no focal weakness Endocrine: no cold or heat intolerance, no polyuria or polydipsia Hematologic/Lymphatic: no easy bruising, no easy bleeding, no gland swelling Allergic/Immunologic: no urticaria, no angioedema. PAST MEDICAL HISTORY: Hypertension, diabetes, compensated by gastroparesis, chronic kidney disease, gastric ulcer PAST SURGICAL HISTORY: Appendectomy SOCIAL HISTORY: No alcohol, no drugs, tobacco FAMILY HISTORY: Hypertension Medications and Allergies Allergies Allergy/AdvReac Type Severity Reaction Status Date / Time No Known Allergies Allergy Verified 11/21/18 17:51 Home Medications Medication Instructions Recorded Confirmed Last Taken Type Metoclopramide [Reglan TAB] 10 mg PO QID PRN #30 tablet 11/03/18 11/12/18 Unknown Rx Promethazine [Phenergan SUPPOS] 50 mg [place] Q6H PRN #20 supp.rect 11/03/18 11/12/18 Unknown Rx Humalog 7 units SC AC 11/14/18 11/14/18 11/12/18 History Hydralazine HCl 50 mg PO TID 30 Days tablet 11/14/18 Unknown Rx Labetalol [Normodyne TAB] 300 mg PO BID 30 Days tablet 11/14/18 Unknown Rx Levemir VIAL 15 units SC HS 11/14/18 11/14/18 11/12/18 History Pantoprazole [Protonix TAB] 40 mg PO BID #60 tablet 11/14/18 Unknown Rx amLODIPine [Norvasc] 10 mg PO QDAY #30 tablet 11/14/18 Unknown Rx Active Meds: Active Medications Pantoprazole Sodium 80 mg/ (Sodium Chloride) 100 mls @ 10 mls/hr IV ONCE ONE Stop: 11/22/18 04:46 Last Admin: 11/21/18 19:44 Dose: 8 mg/hr, 10 mls/hr Documented by: Exam - Physical Exam Narrative exam: Gen. appearance: Patient lying in bed, no apparent distress HEENT: Normocephalic, atraumatic, pupils equally round and reactive to light, extraocular movement intact, and no sclericterus,. No JVD or thyromegaly or nodule,neck supple, no carotid bruit ,mucous membranes moist, no exudate or erythema Heart: S1, S2, regular rate and rhythm Lungs: Clear bilaterally, breathing comfortable Abdomen: Positive bowel sounds, non-tender, nondistended, no organomegaly Extremity:no edema cyanosis, clubbing Skin: no rash, dry, warm Neuro: Oriented 3, cranial nerves II-12 intact, speech is fluent, motor and sensory intact - Constitutional Vitals: Temp Pulse Resp BP Pulse Ox 99.4 F 101 H 15 151/92 91 11/21/18 17:54 11/21/18 21:15 11/21/18 21:15 11/21/18 21:15 11/21/18 21:15 Results - Labs CBC & Chem 7: 11/22/18 02:13 11/22/18 02:13 Labs: Abnormal lab results 11/21/18 11/21/18 11/21/18 Range/Units 18:04 18:22 18:22 RBC (3.65-5.03) M/mm3 Hgb 11.0 L (11.8-15.2) gm/dl Hct 33.5 L (35.5-45.6) % MCH (28-32) pg RDW 15.4 H (13.2-15.2) % Lymph # (1.2-5.4) K/mm3 Seg Neutrophils % 74.7 H (40.0-70.0) % Creatinine 2.5 H (0.8-1.5) mg/dL Glucose 225 H (75-100) mg/dL POC Glucose 222 H (70-105) Total Protein (6.3-8.2) g/dL Albumin (3.9-5) g/dL Crossmatch 11/21/18 11/21/18 11/21/18 Range/Units 18:22 18:22 19:07 RBC 3.37 L (3.65-5.03) M/mm3 Hgb 9.2 L (11.8-15.2) gm/dl Hct 28.3 L (35.5-45.6) % MCH 27 L (28-32) pg RDW (13.2-15.2) % Lymph # 0.9 L (1.2-5.4) K/mm3 Seg Neutrophils % 76.5 H (40.0-70.0) % Creatinine 2.6 H (0.8-1.5) mg/dL Glucose 236 H (75-100) mg/dL POC Glucose (70-105) Total Protein 5.4 L (6.3-8.2) g/dL Albumin 3.0 L (3.9-5) g/dL Crossmatch See Detail 11/21/18 Range/Units 21:20 RBC (3.65-5.03) M/mm3 Hgb 9.4 L (11.8-15.2) gm/dl Hct 26.6 L (35.5-45.6) % MCH (28-32) pg RDW (13.2-15.2) % Lymph # (1.2-5.4) K/mm3 Seg Neutrophils % (40.0-70.0) % Creatinine (0.8-1.5) mg/dL Glucose (75-100) mg/dL POC Glucose (70-105) Total Protein (6.3-8.2) g/dL Albumin (3.9-5) g/dL Crossmatch - Imaging and Cardiology EKG: image reviewed Chest x-ray: report reviewed Assessment and Plan Assessment GI bleed, history of gastric ulcer gastroparesis, acute on chronic Hypertension Diabetes Chronic kidney disease Plan Admit to medicine Start IV fluid, Protonix drip Consult GI, check serial hemoglobin Check fingersticks, initiate insulin sliding scale DVT prophylaxis
[2018-11-21 23:06] LABS: Hematocrit 24.3 % (35.5-45.6); Hemoglobin 8.4 gm/dl (11.8-15.2)
[2018-11-22] MEDS ORDERED: APRESOLINE IV PRN (01:20)
[2018-11-22 02:44] LABS: Hemolysis Index 0
[2018-11-22 02:46] LABS: BUN/Creatinine Ratio TNR; Basophils # (Auto) 0.1 K/mm3 (0.0-0.1); Basophils % (Auto) 1.5 % (0.0-1.8); Blood Urea Nitrogen TNR mg/dL (9-20); Calcium TNR mg/dL (8.4-10.2); Eosinophils # (Auto) 0.1 K/mm3 (0.0-0.4); Hematocrit 28.2 % (35.5-45.6); Hemoglobin 9.5 gm/dl (11.8-15.2); Lymphocytes # (Auto) 1.4 K/mm3 (1.2-5.4); Lymphocytes % (Auto) 21.6 % (13.4-35.0); Mean Corpuscular HGB Conc 34 % (32-34); Mean Corpuscular Volume 83 fl (84-94); Monocytes # (Auto) 0.5 K/mm3 (0.0-0.8); Monocytes % (Auto) 7.7 % (0.0-7.3); Platelet Count 341 K/mm3 (140-440); Red Cell Distribution Width 14.9 % (13.2-15.2)
[2018-11-22] MEDS: HumaLOG SUB-Q SCH ×4 (05:56→18:49)
[2018-11-22] MEDS: APRESOLINE IV PRN ×2 (07:15→21:41)
[2018-11-22 09:00] LABS: Hematocrit 24.7 % (35.5-45.6); Hemoglobin 8.4 gm/dl (11.8-15.2)
[2018-11-22 09:25] LABS: Calcium 8.2 mg/dL (8.4-10.2)
[2018-11-22] MEDS: SODIUM CHLORIDE FLUSH SYRINGE 10 ML IV SCH ×2 (10:37→21:41)
[2018-11-22 15:09] LABS: Hemoglobin 8.4 gm/dl (11.8-15.2)
--- NOTE | 2018-11-22 16:08 | Progress Note ---
Assessment and Plan GI bleed, history of gastric ulcer Gastroparesis, acute on chronic Hypertension Diabetes Chronic kidney disease Plan No EGD per Dr Burnette IV fluid and Protonix drip check serial hemoglobin Check fingersticks, initiate insulin sliding scale DVT prophylaxis Probable discharge tomorrow Subjective Date of service: 11/22/18 Principal diagnosis: GI Bleed Interval history: No further bleed Objective - Constitutional Vitals: Vital Signs - 12hr 11/22/18 11/22/18 11/22/18 05:37 06:40 08:32 Temperature 98.1 F Pulse Rate 101 H Pulse Rate [ 90 84 Apical] Respiratory 18 20 18 Rate Blood Pressure 180/103 O2 Sat by Pulse 100 97 98 Oximetry 11/22/18 11/22/18 11/22/18 09:19 12:08 12:41 Temperature 98.9 F 99.0 F Pulse Rate 102 H 93 H Pulse Rate [ Apical] Respiratory 18 18 Rate Blood Pressure 168/99 184/104 O2 Sat by Pulse 100 100 100 Oximetry General appearance: Present: no acute distress, well-nourished - EENT Eyes: PERRL, EOM intact ENT: hearing intact, clear oral mucosa Ears: bilateral: normal - Neck Neck: supple, normal ROM - Respiratory Respiratory effort: normal Respiratory: bilateral: CTA - Breasts Breasts: normal - Cardiovascular Rhythm: regular Heart Sounds: Present: S1 & S2. Absent: gallop, rub Extremities: pulses intact, No edema, normal color, Full ROM - Gastrointestinal General gastrointestinal: Present: soft, non-tender, non-distended, normal bowel sounds - Genitourinary Male genitourinary: normal - Integumentary Integumentary: clear, warm, dry - Musculoskeletal Musculoskeletal: 1, strength equal bilaterally - Neurologic Neurologic: moves all extremities - Psychiatric Psychiatric: memory intact, appropriate mood/affect, intact judgment & insight - Labs CBC & Chem 7: 11/22/18 14:47 11/22/18 08:50 Labs: Abnormal lab results 11/21/18 11/21/18 11/21/18 Range/Units 18:04 18:22 18:22 RBC (3.65-5.03) M/mm3 Hgb 11.0 L (11.8-15.2) gm/dl Hct 33.5 L (35.5-45.6) % MCV (84-94) fl MCH (28-32) pg RDW 15.4 H (13.2-15.2) % [place] % (Auto) (0.0-7.3) % Lymph # (1.2-5.4) K/mm3 Seg Neutrophils % 74.7 H (40.0-70.0) % Sodium (137-145) mmol/L Chloride (98-107) mmol/L Creatinine 2.5 H (0.8-1.5) mg/dL Glucose 225 H (75-100) mg/dL POC Glucose 222 H (70-105) Calcium (8.4-10.2) mg/dL Total Protein (6.3-8.2) g/dL Albumin (3.9-5) g/dL Crossmatch 11/21/18 11/21/18 11/21/18 Range/Units 18:22 18:22 19:07 RBC 3.37 L (3.65-5.03) M/mm3 Hgb 9.2 L (11.8-15.2) gm/dl Hct 28.3 L (35.5-45.6) % MCV (84-94) fl MCH 27 L (28-32) pg RDW (13.2-15.2) % [place] % (Auto) (0.0-7.3) % Lymph # 0.9 L (1.2-5.4) K/mm3 Seg Neutrophils % 76.5 H (40.0-70.0) % Sodium (137-145) mmol/L Chloride (98-107) mmol/L Creatinine 2.6 H (0.8-1.5) mg/dL Glucose 236 H (75-100) mg/dL POC Glucose (70-105) Calcium (8.4-10.2) mg/dL Total Protein 5.4 L (6.3-8.2) g/dL Albumin 3.0 L (3.9-5) g/dL Crossmatch See Detail 11/21/18 11/21/18 11/22/18 Range/Units 21:20 22:59 01:10 RBC (3.65-5.03) M/mm3 Hgb 9.4 L 8.4 L (11.8-15.2) gm/dl Hct 26.6 L 24.3 L (35.5-45.6) % MCV (84-94) fl MCH (28-32) pg RDW (13.2-15.2) % [place] % (Auto) (0.0-7.3) % Lymph # (1.2-5.4) K/mm3 Seg Neutrophils % (40.0-70.0) % Sodium (137-145) mmol/L Chloride (98-107) mmol/L Creatinine (0.8-1.5) mg/dL Glucose (75-100) mg/dL POC Glucose 192 H (70-105) Calcium (8.4-10.2) mg/dL Total Protein (6.3-8.2) g/dL Albumin (3.9-5) g/dL Crossmatch 11/22/18 11/22/18 11/22/18 Range/Units 02:13 06:50 08:50 RBC 3.40 L (3.65-5.03) M/mm3 Hgb 9.5 L 8.4 L (11.8-15.2) gm/dl Hct 28.2 L 24.7 L (35.5-45.6) % MCV 83 L (84-94) fl MCH (28-32) pg RDW (13.2-15.2) % [place] % (Auto) 7.7 H (0.0-7.3) % Lymph # (1.2-5.4) K/mm3 Seg Neutrophils % (40.0-70.0) % Sodium (137-145) mmol/L Chloride (98-107) mmol/L Creatinine (0.8-1.5) mg/dL Glucose (75-100) mg/dL POC Glucose 174 H (70-105) Calcium (8.4-10.2) mg/dL Total Protein (6.3-8.2) g/dL Albumin (3.9-5) g/dL Crossmatch 11/22/18 11/22/18 11/22/18 Range/Units 08:50 12:41 14:47 RBC (3.65-5.03) M/mm3 Hgb 8.4 L (11.8-15.2) gm/dl Hct 25.0 L (35.5-45.6) % MCV (84-94) fl MCH (28-32) pg RDW (13.2-15.2) % [place] % (Auto) (0.0-7.3) % Lymph # (1.2-5.4) K/mm3 Seg Neutrophils % (40.0-70.0) % Sodium 146 H (137-145) mmol/L Chloride 111.5 H (98-107) mmol/L Creatinine 2.8 H (0.8-1.5) mg/dL Glucose 170 H (75-100) mg/dL POC Glucose 54 L (70-105) Calcium 8.2 L (8.4-10.2) mg/dL Total Protein (6.3-8.2) g/dL Albumin (3.9-5) g/dL Crossmatch 11/22/18 Range/Units 14:57 RBC (3.65-5.03) M/mm3 Hgb (11.8-15.2) gm/dl Hct (35.5-45.6) % MCV (84-94) fl MCH (28-32) pg RDW (13.2-15.2) % [place] % (Auto) (0.0-7.3) % Lymph # (1.2-5.4) K/mm3 Seg Neutrophils % (40.0-70.0) % Sodium (137-145) mmol/L Chloride (98-107) mmol/L Creatinine (0.8-1.5) mg/dL Glucose (75-100) mg/dL POC Glucose 179 H (70-105) Calcium (8.4-10.2) mg/dL Total Protein (6.3-8.2) g/dL Albumin (3.9-5) g/dL Crossmatch
--- NOTE | 2018-11-22 18:19 | Gastroenterology Consultation ---
History of Present Illness - Reason for Consult Consult date: 11/22/18 nausea/vomiting Requesting physician: BRENDA MORFIN - History of Present Illness This is a 33 yo AAM with pmh of uncontrolled DM, PUD, and ulcerative esophagitis admitted overnight for nausea/vomiting and hematemesis concerning upper GI bleed. No further episodes of hematemesis today. Tolerating liquids this afternoon. He has h/o chronic nausea/vomiting for past 1 year. He had admission late last year 2017 at [facility] for nausea/vomiting and had EGD. He was admitted 2 times in 10/2018 at [facility] for similar presentations and underwent EGD x 2 showing ulcerative esophagitis and normal appearing stomach. He was placed on PPI bid. He had taken NSAIDs recently. Past History Past Medical History: diabetes Social history: lives with family Medications and Allergies Allergies Allergy/AdvReac Type Severity Reaction Status Date / Time No Known Allergies Allergy Verified 11/21/18 17:51 Home Medications Medication Instructions Recorded Confirmed Last Taken Type Metoclopramide [Reglan TAB] 10 mg PO QID PRN #30 tablet 11/03/18 11/22/18 11/21/18 10:00 Rx Promethazine [Phenergan SUPPOS] 50 mg [place] Q6H PRN #20 supp.rect 11/03/18 11/22/18 11/21/18 10:00 Rx Humalog 7 units SC AC 11/14/18 11/22/18 11/21/18 10:00 History Hydralazine HCl 50 mg PO TID 30 Days tablet 11/14/18 11/22/18 11/21/18 10:00 Rx Labetalol [Normodyne TAB] 300 mg PO BID 30 Days tablet 11/14/18 11/22/18 11/21/18 10:00 Rx 100mg Levemir VIAL 15 units SC HS 11/14/18 11/22/18 11/21/18 10:00 History Pantoprazole [Protonix TAB] 40 mg PO BID #60 tablet 11/14/18 11/22/18 11/21/18 10:00 Rx 10mg amLODIPine [Norvasc] 10 mg PO QDAY #30 tablet 11/14/18 11/22/18 1 Day Ago Rx ~11/21/18 Active Meds: Active Medications Acetaminophen (Tylenol) 650 mg PO Q4H PRN PRN Reason: Pain MILD(1-3)/Fever >100.5/LANZA Dextrose (D50w (25gm) Syringe) 50 ml IV PRN PRN PRN Reason: Hypoglycemia Hydralazine HCl (Apresoline) 5 mg IV Q4H PRN PRN Reason: Hypertension Last Admin: 11/22/18 07:15 Dose: 5 mg Documented by: Insulin Human Lispro (Humalog) 0 unit SUB-Q Q6HR KESHIA; Protocol Last Admin: 11/22/18 07:08 Dose: 1 unit Documented by: Metoclopramide HCl (Reglan) 5 mg IV Q6H PRN PRN Reason: Nausea And Vomiting Ondansetron HCl (Zofran) 4 mg IV Q4H PRN PRN Reason: Nausea And Vomiting Sodium Chloride (Sodium Chloride Flush Syringe 10 Ml) 10 ml IV BID KESHIA Sodium Chloride (Sodium Chloride Flush Syringe 10 Ml) 10 ml IV PRN PRN PRN Reason: LINE FLUSH Sucralfate (Carafate) 1 gm PO Q6HR KESHIA Review of Systems - Review of Systems Constitutional: no weight loss, no weight gain Cardiovascular: no chest pain, no edema Gastrointestinal: abdominal pain, nausea, vomiting, hematemesis, no diarrhea, no constipation, no melena Musculoskeletal: no joint pain Exam - Constitutional Vital Signs: Temp Pulse Resp BP Pulse Ox 99.0 F 89 18 181/104 100 11/22/18 17:30 11/22/18 17:33 11/22/18 17:33 11/22/18 17:33 11/22/18 17:33 General appearance: no acute distress, obese - EENT Eyes: PERRL, EOM intact ENT: hearing intact, clear oral mucosa - Neck Neck: supple, normal ROM - Respiratory Respiratory effort: normal Respiratory: bilateral: CTA - Cardiovascular Rhythm: regular Heart Sounds: Present: S1 & S2 - Gastrointestinal General gastrointestinal: Present: soft, non-tender, non-distended, normal bowel sounds - Integumentary Integumentary: Present: clear, warm - Neurologic Neurological: alert and oriented x3 - Labs CBC & Chem 7: 11/22/18 14:47 11/22/18 08:50 Lab Results: Laboratory Results - last 24 hr 11/21/18 11/21/18 11/21/18 18:04 18:22 18:22 WBC 6.9 RBC 3.92 Hgb 11.0 L Hct 33.5 L MCV 86 MCH 28 MCHC 33 RDW 15.4 H Plt Count 369 Lymph % (Auto) 18.6 [place] % (Auto) 4.6 Eos % (Auto) 1.2 Baso % (Auto) 0.9 Lymph # 1.3 [place] # 0.3 Eos # 0.1 Baso # 0.1 Seg Neutrophils % 74.7 H Seg Neutrophils # 5.2 PT INR APTT Sodium 141 Potassium 4.5 Chloride 103.3 Carbon Dioxide 23 Anion Gap 19 BUN 19 Creatinine 2.5 H Estimated GFR 37 BUN/Creatinine Ratio 8 Glucose 225 H POC Glucose 222 H Lactic Acid Calcium 8.9 Magnesium Total Bilirubin AST ALT Alkaline Phosphatase Total Protein Albumin Albumin/Globulin Ratio Lipase Blood Type Antibody Screen Crossmatch 11/21/18 11/21/18 11/21/18 18:22 18:22 19:07 WBC 6.2 RBC 3.37 L Hgb 9.2 L Hct 28.3 L MCV 84 MCH 27 L MCHC 33 RDW 14.9 Plt Count 382 Lymph % (Auto) 15.1 [place] % (Auto) 6.3 Eos % (Auto) 0.8 Baso % (Auto) 1.3 Lymph # 0.9 L [place] # 0.4 Eos # 0.1 Baso # 0.1 Seg Neutrophils % 76.5 H Seg Neutrophils # 4.8 PT INR APTT Sodium 141 Potassium 4.5 Chloride 103.7 Carbon Dioxide 22 Anion Gap 20 BUN 18 Creatinine 2.6 H Estimated GFR 35 BUN/Creatinine Ratio 7 Glucose 236 H POC Glucose Lactic Acid Calcium 9.0 Magnesium 1.90 Total Bilirubin 0.40 AST 19 ALT 13 Alkaline Phosphatase 71 Total Protein 5.4 L Albumin 3.0 L Albumin/Globulin Ratio 1.3 Lipase 24 Blood Type O POSITIVE Antibody Screen Negative Crossmatch See Detail 11/21/18 11/21/18 11/21/18 19:07 19:07 21:20 WBC RBC Hgb 9.4 L Hct 26.6 L MCV MCH MCHC RDW Plt Count Lymph % (Auto) [place] % (Auto) Eos % (Auto) Baso % (Auto) Lymph # [place] # Eos # Baso # Seg Neutrophils % Seg Neutrophils # PT 13.1 INR 0.95 APTT 24.4 Sodium Potassium Chloride Carbon Dioxide Anion Gap BUN Creatinine Estimated GFR BUN/Creatinine Ratio Glucose POC Glucose Lactic Acid 1.10 Calcium Magnesium Total Bilirubin AST ALT Alkaline Phosphatase Total Protein Albumin Albumin/Globulin Ratio Lipase Blood Type Antibody Screen Crossmatch 11/21/18 11/22/18 11/22/18 22:59 01:10 02:13 WBC 6.7 RBC 3.40 L Hgb 8.4 L 9.5 L Hct 24.3 L 28.2 L MCV 83 L MCH 28 MCHC 34 RDW 14.9 Plt Count 341 Lymph % (Auto) 21.6 [place] % (Auto) 7.7 H Eos % (Auto) 1.0 Baso % (Auto) 1.5 Lymph # 1.4 [place] # 0.5 Eos # 0.1 Baso # 0.1 Seg Neutrophils % 68.2 Seg Neutrophils # 4.6 PT INR APTT Sodium Potassium Chloride Carbon Dioxide Anion Gap BUN Creatinine Estimated GFR BUN/Creatinine Ratio Glucose POC Glucose 192 H Lactic Acid Calcium Magnesium Total Bilirubin AST ALT Alkaline Phosphatase Total Protein Albumin Albumin/Globulin Ratio Lipase Blood Type Antibody Screen Crossmatch 11/22/18 11/22/18 11/22/18 02:13 06:50 08:50 WBC RBC Hgb 8.4 L Hct 24.7 L MCV MCH MCHC RDW Plt Count Lymph % (Auto) [place] % (Auto) Eos % (Auto) Baso % (Auto) Lymph # [place] # Eos # Baso # Seg Neutrophils % Seg Neutrophils # PT INR APTT Sodium TNR Potassium TNR Chloride TNR Carbon Dioxide TNR Anion Gap TNR BUN TNR Creatinine TNR Estimated GFR > 60 BUN/Creatinine Ratio TNR Glucose TNR POC Glucose 174 H Lactic Acid Calcium TNR Magnesium Total Bilirubin AST ALT Alkaline Phosphatase Total Protein Albumin Albumin/Globulin Ratio Lipase Blood Type Antibody Screen Crossmatch 11/22/18 11/22/18 11/22/18 08:50 12:41 14:47 WBC RBC Hgb 8.4 L Hct 25.0 L MCV MCH MCHC RDW Plt Count Lymph % (Auto) [place] % (Auto) Eos % (Auto) Baso % (Auto) Lymph # [place] # Eos # Baso # Seg Neutrophils % Seg Neutrophils # PT INR APTT Sodium 146 H Potassium 3.9 Chloride 111.5 H Carbon Dioxide 25 Anion Gap 13 BUN 19 Creatinine 2.8 H Estimated GFR 32 BUN/Creatinine Ratio 7 Glucose 170 H POC Glucose 54 L Lactic Acid Calcium 8.2 L Magnesium Total Bilirubin AST ALT Alkaline Phosphatase Total Protein Albumin Albumin/Globulin Ratio Lipase Blood Type Antibody Screen Crossmatch 11/22/18 14:57 WBC RBC Hgb Hct MCV MCH MCHC RDW Plt Count Lymph % (Auto) [place] % (Auto) Eos % (Auto) Baso % (Auto) Lymph # [place] # Eos # Baso # Seg Neutrophils % Seg Neutrophils # PT INR APTT Sodium Potassium Chloride Carbon Dioxide Anion Gap BUN Creatinine Estimated GFR BUN/Creatinine Ratio Glucose POC Glucose 179 H Lactic Acid Calcium Magnesium Total Bilirubin AST ALT Alkaline Phosphatase Total Protein Albumin Albumin/Globulin Ratio Lipase Blood Type Antibody Screen Crossmatch Assessment and Plan 33 yo AAM with poorly controlled DM and ulcerative esophagitis and chronic nausea/vomiting admitted for hematemesis. - Patient Problems (1) Intractable nausea and vomiting Current Visit: Yes Status: Acute Qualifiers: Vomiting type: unspecified Qualified Code(s): R11.2 - Nausea with vomiting, unspecified (2) Upper GI bleed Current Visit: Yes Status: Acute Plan to address problem: Nausea/vomiting/hematemesis - currently tolerating liquids well. No additional episodes of hematemesis. - likely 2/2 possible gastroparesis and known ulcerative esophagitis. - H/H stable. Rec: - advance diet slowly. changed to full liquids. - continue with antiemetics with reglan. - monitor H/H. - no plans for EGD. Patient has had EGD x 2 in 10/2018 and previously recent EGD at [facility] for similar symptoms and all with similar findings of esophagitis.
[2018-11-22] MEDS: CARAFATE PO SCH (21:41)
[2018-11-23] MEDS: HumaLOG SUB-Q SCH ×5 (00:55→23:45)
[2018-11-23] MEDS: CARAFATE PO SCH ×5 (01:49→23:30)
[2018-11-23 05:33] LABS: Basophils % (Auto) 0.3 % (0.0-1.8); Eosinophils # (Auto) 0.1 K/mm3 (0.0-0.4); Eosinophils % (Auto) 2.3 % (0.0-4.3); Hematocrit 26.2 % (35.5-45.6); Hemoglobin 8.5 gm/dl (11.8-15.2); Lymphocytes % (Auto) 32.2 % (13.4-35.0); Mean Corpuscular HGB Conc 33 % (32-34); Mean Corpuscular Volume 86 fl (84-94); Monocytes # (Auto) 0.6 K/mm3 (0.0-0.8); Monocytes % (Auto) 9.2 % (0.0-7.3); Platelet Count 292 K/mm3 (140-440); Red Blood Count 3.06 M/mm3 (3.65-5.03); Red Cell Distribution Width 14.9 % (13.2-15.2)
[2018-11-23 05:48] LABS: Albumin 1.7 g/dL (3.9-5)
[2018-11-23] MEDS: SODIUM CHLORIDE FLUSH SYRINGE 10 ML IV SCH ×2 (09:20→21:28)
--- NOTE | 2018-11-23 13:46 | Discharge Summary ---
Providers - Providers Date of Admission: 11/21/18 22:31 Date of discharge: 11/23/18 Attending physician: BRENDA MORFIN 11/21/18 22:31 Consult to Physician [CONS] Routine Comment: Dr. Ivory spoke with Dr. 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: [employer] Hospitalization Condition: Stable Hospital course: GI bleed Resolved Gastroparesis, acute on chronic Hypertension Diabetes Chronic kidney disease Plan No EGD per Dr Burnette PO Protonix and Reglan Serial hemoglobin-Stable Disposition: - TO HOME OR SELFCARE Core Measure Documentation - Palliative Care Palliative Care/ Comfort Measures: Not Applicable - Core Measures Any of the following diagnoses?: none Exam - Constitutional Vitals: Temp Pulse Resp BP Pulse Ox 98.8 F 85 18 177/101 98 11/23/18 11:40 11/23/18 11:38 11/23/18 11:38 11/23/18 11:38 11/23/18 11:38 General appearance: Present: no acute distress, well-nourished - EENT Eyes: Present: PERRL ENT: hearing intact, clear oral mucosa - Neck Neck: Present: supple, normal ROM - Respiratory Respiratory effort: normal Respiratory: bilateral: CTA - Cardiovascular Heart Sounds: Present: S1 & S2. Absent: rub, click - Extremities Extremities: pulses symmetrical, No edema Peripheral Pulses: within normal limits - Abdominal General gastrointestinal: Present: soft, non-tender, non-distended, normal bowel sounds Male genitourinary: Present: normal - Integumentary Integumentary: Present: clear, warm, dry - Musculoskeletal Musculoskeletal: gait normal, strength equal bilaterally - Psychiatric Psychiatric: appropriate mood/affect, intact judgment & insight - Neurologic Neurologic: CNII-XII intact, moves all extremities Plan Activity: advance as tolerated Diet: low fat, low cholesterol, low salt, diabetic Follow up with: CLEOPATRA HALL MD [Primary Care Provider] - 3-5 Days MIKY YOUNG MD [Staff Physician] - 7 Days Forms: Accompanied Note
--- NOTE | 2018-11-23 15:24 | Gastroenterology Progress Note ---
Assessment and Plan 33 yo AAM with poorly controlled DM and ulcerative esophagitis and chronic nausea/vomiting admitted for hematemesis. Nausea/vomiting/hematemesis - currently tolerating full liquid diet. No additional episodes of hematemesis. - likely 2/2 possible gastroparesis and known ulcerative esophagitis. - H/H stable. Rec: - advance diet. - continue with antiemetics with reglan. - no plans for EGD. Patient has had EGD x 2 in 10/2018 and previously recent EGD at [place] for similar symptoms and all with similar findings of esophagitis. - ok for discharge per GI standpoint. follow up outpatient GI clinic. - optimize DM control. - Patient Problems (1) Intractable nausea and vomiting Current Visit: Yes Status: Acute Qualifiers: Vomiting type: unspecified Qualified Code(s): R11.2 - Nausea with vomiting, unspecified (2) Upper GI bleed Current Visit: Yes Status: Acute Subjective Date of service: 11/23/18 Principal diagnosis: GI Bleed Objective - Constitutional Vitals: Temp Pulse Resp BP Pulse Ox 98.8 F 85 18 177/101 98 11/23/18 11:40 11/23/18 11:38 11/23/18 11:38 11/23/18 11:38 11/23/18 11:38 - Labs CBC & Chem 7: 11/23/18 05:01 11/23/18 05:01 Labs: Laboratory Results - last 24 hr 11/22/18 11/22/18 11/23/18 17:31 23:38 05:01 WBC 6.2 RBC 3.06 L Hgb 8.5 L Hct 26.2 L MCV 86 MCH 28 MCHC 33 RDW 14.9 Plt Count 292 Lymph % (Auto) 32.2 [place] % (Auto) 9.2 H Eos % (Auto) 2.3 Baso % (Auto) 0.3 Lymph # 2.0 [place] # 0.6 Eos # 0.1 Baso # 0.0 Seg Neutrophils % 56.0 Seg Neutrophils # 3.5 Sodium Potassium Chloride Carbon Dioxide Anion Gap BUN Creatinine Estimated GFR BUN/Creatinine Ratio Glucose POC Glucose 220 H 231 H Calcium Total Bilirubin AST ALT Alkaline Phosphatase Total Protein Albumin Albumin/Globulin Ratio 11/23/18 11/23/18 11/23/18 05:01 06:16 11:38 WBC RBC Hgb Hct MCV MCH MCHC RDW Plt Count Lymph % (Auto) [place] % (Auto) Eos % (Auto) Baso % (Auto) Lymph # [place] # Eos # Baso # Seg Neutrophils % Seg Neutrophils # Sodium 140 Potassium 3.9 Chloride 109.1 H Carbon Dioxide 22 Anion Gap 13 BUN 16 Creatinine 2.3 H Estimated GFR 40 BUN/Creatinine Ratio 7 Glucose 100 POC Glucose 76 127 H Calcium 8.0 L Total Bilirubin 0.20 AST 13 ALT 8 Alkaline Phosphatase 50 Total Protein 4.0 L D Albumin 1.7 L Albumin/Globulin Ratio 0.7
[2018-11-23] MEDS: APRESOLINE IV PRN (19:01)
[2018-11-24] MEDS: CARAFATE PO SCH ×3 (05:21→18:15)
[2018-11-24] MEDS: APRESOLINE IV PRN ×3 (05:26→18:20)
[2018-11-24] MEDS: ZOFRAN IV PRN ×3 (05:26→18:20)
[2018-11-24] MEDS: HumaLOG SUB-Q SCH ×3 (08:00→18:29)
[2018-11-24] MEDS: SODIUM CHLORIDE FLUSH SYRINGE 10 ML IV SCH (10:58)
[2018-11-24] MEDS ORDERED: APRESOLINE IV ONE (14:11)
[2018-11-24] MEDS ORDERED: CATAPRES-TTS PATCH TD SCH (18:14)
--- NOTE | 2018-11-24 23:34 | Progress Note ---
Assessment and Plan - Patient Problems (1) Intractable nausea and vomiting Current Visit: Yes Status: Acute Qualifiers: Vomiting type: unspecified Qualified Code(s): R11.2 - Nausea with vomiting, unspecified Plan to address problem: Cont IV protonix IV Zofran and IV Reglan (2) GI bleed Current Visit: Yes Status: Inactive Plan to address problem: No acteive GI bleed Cont IV Protonix No EGD Reconsult GI if necessary (3) Gastroparesis Current Visit: Yes Status: Acute Plan to address problem: Patient has Gastroparesis causing recurrent vomiting episodes Unclear whether he had NM Gastric emptying scan (4) HTN (hypertension) Current Visit: Yes Status: Chronic Qualifiers: Hypertension type: essential hypertension Qualified Code(s): I10 - Essential (primary) hypertension Plan to address problem: Cont antihypertensives (5) T2DM (type 2 diabetes mellitus) Current Visit: Yes Status: Chronic Qualifiers: Diabetes mellitus intermediate insulin use: without terminal carman use Plan to address problem: Cont coverage (6) CKD (chronic kidney disease) Current Visit: Yes Status: Chronic Qualifiers: Chronic kidney disease stage: stage 3 (moderate) Qualified Code(s): N18.3 - Chronic kidney disease, stage 3 (moderate) Plan to address problem: Stable Renal consult requested (7) DVT prophylaxis Current Visit: Yes Status: Acute Plan to address problem: On Scd's and GI prophylaxis Subjective Date of service: 11/24/18 Principal diagnosis: GI Bleed Interval history: Continues to vomit Objective - Constitutional Vitals: Vital Signs - 12hr 11/24/18 11/24/18 11/24/18 12:54 13:01 13:46 Temperature Pulse Rate 114 H 105 H Respiratory Rate Blood Pressure 182/125 182/125 191/116 Blood Pressure [Right] O2 Sat by Pulse 97 Oximetry 11/24/18 11/24/18 11/24/18 14:30 18:06 18:11 Temperature Pulse Rate 103 H Respiratory Rate Blood Pressure 181/111 187/105 Blood Pressure 191/116 [Right] O2 Sat by Pulse Oximetry 11/24/18 11/24/18 11/24/18 18:20 18:42 18:45 Temperature Pulse Rate 109 H 103 H Respiratory Rate Blood Pressure 181/111 194/115 194/115 Blood Pressure [Right] O2 Sat by Pulse Oximetry 11/24/18 11/24/18 19:19 22:00 Temperature 98.0 F Pulse Rate 100 H 93 H Respiratory 18 Rate Blood Pressure 165/93 Blood Pressure [Right] O2 Sat by Pulse 98 Oximetry General appearance: Present: no acute distress, well-nourished - EENT Eyes: PERRL, EOM intact ENT: hearing intact, clear oral mucosa Ears: bilateral: normal - Neck Neck: supple, normal ROM - Respiratory Respiratory effort: normal Respiratory: bilateral: CTA - Breasts Breasts: normal - Cardiovascular Heart rate: 78 Rhythm: regular Heart Sounds: Present: S1 & S2. Absent: gallop, rub Extremities: pulses intact, No edema, normal color, Full ROM - Gastrointestinal General gastrointestinal: Present: soft, non-tender, non-distended, normal bowel sounds - Genitourinary Male genitourinary: normal - Integumentary Integumentary: clear, warm, dry - Musculoskeletal Musculoskeletal: 1, strength equal bilaterally - Neurologic Neurologic: moves all extremities - Psychiatric Psychiatric: memory intact, appropriate mood/affect, intact judgment & insight - Allied health notes Allied health notes reviewed: nursing, case management - Labs CBC & Chem 7: 11/23/18 05:01 11/23/18 05:01 Labs: Abnormal lab results 11/24/18 11/24/18 11/24/18 Range/Units 06:45 12:21 18:18 POC Glucose 208 H 226 H 190 H (70-105) 11/24/18 Range/Units 21:28 POC Glucose 199 H (70-105)
--- NOTE | 2018-11-24 23:41 | Progress Note ---
Assessment and Plan - Patient Problems (1) Intractable nausea and vomiting Current Visit: Yes Status: Acute Qualifiers: Vomiting type: unspecified Qualified Code(s): R11.2 - Nausea with vomiting, unspecified Plan to address problem: Cont IV protonix IV Zofran and IV Reglan (2) GI bleed Current Visit: Yes Status: Inactive Plan to address problem: No acteive GI bleed Cont IV Protonix No EGD Reconsult GI if necessary (3) Gastroparesis Current Visit: Yes Status: Acute Plan to address problem: Patient has Gastroparesis causing recurrent vomiting episodes Unclear whether he had NM Gastric emptying scan (4) HTN (hypertension) Current Visit: Yes Status: Chronic Qualifiers: Hypertension type: essential hypertension Qualified Code(s): I10 - Essential (primary) hypertension Plan to address problem: Cont antihypertensives (5) T2DM (type 2 diabetes mellitus) Current Visit: Yes Status: Chronic Qualifiers: Diabetes mellitus fci insulin use: without vermin exterminator use Plan to address problem: Cont coverage (6) CKD (chronic kidney disease) Current Visit: Yes Status: Chronic Qualifiers: Chronic kidney disease stage: stage 3 (moderate) Qualified Code(s): N18.3 - Chronic kidney disease, stage 3 (moderate) Plan to address problem: Stable Renal consult requested (7) DVT prophylaxis Current Visit: Yes Status: Acute Plan to address problem: On Scd's and GI prophylaxis Subjective Date of service: 11/24/18 Principal diagnosis: GI Bleed Interval history: Continues to vomit Objective - Constitutional Vitals: Vital Signs - 12hr 11/24/18 11/24/18 11/24/18 12:54 13:01 13:46 Temperature Pulse Rate 114 H 105 H Respiratory Rate Blood Pressure 182/125 182/125 191/116 Blood Pressure [Right] O2 Sat by Pulse 97 Oximetry 11/24/18 11/24/18 11/24/18 14:30 18:06 18:11 Temperature Pulse Rate 103 H Respiratory Rate Blood Pressure 181/111 187/105 Blood Pressure 191/116 [Right] O2 Sat by Pulse Oximetry 11/24/18 11/24/18 11/24/18 18:20 18:42 18:45 Temperature Pulse Rate 109 H 103 H Respiratory Rate Blood Pressure 181/111 194/115 194/115 Blood Pressure [Right] O2 Sat by Pulse Oximetry 11/24/18 11/24/18 19:19 22:00 Temperature 98.0 F Pulse Rate 100 H 93 H Respiratory 18 Rate Blood Pressure 165/93 Blood Pressure [Right] O2 Sat by Pulse 98 Oximetry General appearance: Present: no acute distress, well-nourished - EENT Eyes: PERRL, EOM intact ENT: hearing intact, clear oral mucosa Ears: bilateral: normal - Neck Neck: supple, normal ROM - Respiratory Respiratory effort: normal Respiratory: bilateral: CTA - Breasts Breasts: normal - Cardiovascular Heart rate: 78 Rhythm: regular Heart Sounds: Present: S1 & S2. Absent: gallop, rub Extremities: no ischemia, pulses intact, No edema, normal color, Full ROM - Gastrointestinal General gastrointestinal: Present: soft, non-tender, non-distended, normal bowel sounds - Genitourinary Male genitourinary: normal - Integumentary Integumentary: clear, warm, dry - Musculoskeletal Musculoskeletal: 1, strength equal bilaterally - Neurologic Neurologic: moves all extremities - Psychiatric Psychiatric: memory intact, appropriate mood/affect, intact judgment & insight - Allied health notes Allied health notes reviewed: nursing, case management - Labs CBC & Chem 7: 11/23/18 05:01 11/23/18 05:01 Labs: Abnormal lab results 11/24/18 11/24/18 11/24/18 Range/Units 06:45 12:21 18:18 POC Glucose 208 H 226 H 190 H (70-105) 11/24/18 Range/Units 21:28 POC Glucose 199 H (70-105)
[2018-11-25] MEDS: ZOFRAN IV PRN
[2018-11-25] MEDS: HumaLOG SUB-Q SCH ×4 (04:17→20:19)
[2018-11-25] MEDS: APRESOLINE IV PRN ×4 (05:10→20:11)
[2018-11-25] MEDS: CARAFATE PO SCH ×5 (06:55→23:05)
--- NOTE | 2018-11-25 08:35 | Progress Note ---
Assessment and Plan Assessment and plan: Patient is 33 yo man with a history of Type 1 DM, gastroparesis and hypertension who presented with n/v which is still present -Intractable n/v most likely due to Gastroparesis flare: check labs for electrolyte dysfunction -Gastroparesis flare: downgrade diet back to clear liquids, change reglan from prn to achs and increase the dose -Type 1 DM: continue q6hr ssi -IV lines assessment: remove the right EJ line and right finger IV line and establish new peripheral iv line in a better location (pt initially refusing to get rid of right finger iv line, ?reason) History Interval history: Patient was seen and examined. Follow-up on current diagnosis of n/v, actively vomiting during visit. Overnight uneventful. Imaging, nursing note, chart, labs and old chart reviewed. Discussed with patient. Hospitalist Physical - Physical exam Narrative exam: GEN: WDWN, unkempt with stool soiled sheets and musty odor, ill appearing with n/v, NAD, Awake, Alert, Orientated HEENT: NCAT, EOMI, PERRL, OP Clear NECK: supple, no adenopathy, no thyromegaly, no JVD, right EJ CVS/HEART: RRR, normal S1S2, pulses present bilaterally CHEST/LUNGS: CTA B, Symmetrical chest expansion, good air entry bilaterally GI/Abdomen: soft, diffuse tenderness, nondistended good bowel sounds, no guarding or rebound /Bladder: no suprapubic tenderness, no CVA or paraspinal tenderness EXT/Skin: no c/c/e, no obvious rash, right finger iv line MSK: FROM x 4 Neuro: CN 2-12 grossly intact, no new focal deficits Psych: calm - Constitutional Vitals: Temp Pulse Resp BP Pulse Ox 98.0 F 100 H 18 179/89 98 11/25/18 04:16 11/25/18 04:16 11/25/18 04:16 11/25/18 05:10 11/25/18 04:16 General appearance: Present: no acute distress, well-nourished Results - Labs CBC & Chem 7: 11/23/18 05:01 11/23/18 05:01 Labs: Laboratory Last Values WBC 6.2 K/mm3 (4.5-11.0) 11/23/18 05:01 RBC 3.06 M/mm3 (3.65-5.03) L 11/23/18 05:01 Hgb 8.5 gm/dl (11.8-15.2) L 11/23/18 05:01 Hct 26.2 % (35.5-45.6) L 11/23/18 05:01 MCV 86 fl (84-94) 11/23/18 05:01 MCH 28 pg (28-32) 11/23/18 05:01 MCHC 33 % (32-34) 11/23/18 05:01 RDW 14.9 % (13.2-15.2) 11/23/18 05:01 Plt Count 292 K/mm3 (140-440) 11/23/18 05:01 Lymph % (Auto) 32.2 % (13.4-35.0) 11/23/18 05:01 [place] % (Auto) 9.2 % (0.0-7.3) H 11/23/18 05:01 Eos % (Auto) 2.3 % (0.0-4.3) 11/23/18 05:01 Baso % (Auto) 0.3 % (0.0-1.8) 11/23/18 05:01 Lymph # 2.0 K/mm3 (1.2-5.4) 11/23/18 05:01 [place] # 0.6 K/mm3 (0.0-0.8) 11/23/18 05:01 Eos # 0.1 K/mm3 (0.0-0.4) 11/23/18 05:01 Baso # 0.0 K/mm3 (0.0-0.1) 11/23/18 05:01 Seg Neutrophils % 56.0 % (40.0-70.0) 11/23/18 05:01 Seg Neutrophils # 3.5 K/mm3 (1.8-7.7) 11/23/18 05:01 PT 13.1 Sec. (12.2-14.9) 11/21/18 19:07 INR 0.95 (0.87-1.13) 11/21/18 19:07 APTT 24.4 Sec. (24.2-36.6) 11/21/18 19:07 Sodium 140 mmol/L (137-145) 11/23/18 05:01 Potassium 3.9 mmol/L (3.6-5.0) 11/23/18 05:01 Chloride 109.1 mmol/L (98-107) H 11/23/18 05:01 Carbon Dioxide 22 mmol/L (22-30) 11/23/18 05:01 Anion Gap 13 mmol/L 11/23/18 05:01 BUN 16 mg/dL (9-20) 11/23/18 05:01 Creatinine 2.3 mg/dL (0.8-1.5) H 11/23/18 05:01 Estimated GFR 40 ml/min 11/23/18 05:01 BUN/Creatinine Ratio 7 % 11/23/18 05:01 Glucose 100 mg/dL (75-100) 11/23/18 05:01 POC Glucose 196 (70-105) H 11/25/18 06:07 Lactic Acid 1.10 mmol/L (0.7-2.0) 11/21/18 19:07 Calcium 8.0 mg/dL (8.4-10.2) L 11/23/18 05:01 Magnesium 1.90 mg/dL (1.7-2.3) 11/21/18 18:22 Total Bilirubin 0.20 mg/dL (0.1-1.2) 11/23/18 05:01 AST 13 units/L (5-40) 11/23/18 05:01 ALT 8 units/L (7-56) 11/23/18 05:01 Alkaline Phosphatase 50 units/L (35-129) 11/23/18 05:01 Total Protein 4.0 g/dL (6.3-8.2) L D 11/23/18 05:01 Albumin 1.7 g/dL (3.9-5) L 11/23/18 05:01 Albumin/Globulin Ratio 0.7 % 11/23/18 05:01 Lipase 24 units/L (13-60) 11/21/18 18:22 Blood Type O POSITIVE 11/21/18 18:22 Antibody Screen Negative 11/21/18 18:22 Crossmatch See Detail 11/21/18 18:22
[2018-11-25] MEDS: REGLAN FEEDTUBE SCH ×3 (13:06→23:05)
[2018-11-25] MEDS: SODIUM CHLORIDE FLUSH SYRINGE 10 ML IV SCH ×3 (13:16→23:05)
[2018-11-25] MEDS: PROTONIX IV SCH (13:19)
[2018-11-25] MEDS ORDERED: K-DUR PO ONE (16:03)
[2018-11-26] MEDS: HumaLOG SUB-Q SCH ×3 (01:22→12:55)
[2018-11-26] MEDS: CARAFATE PO SCH ×2 (05:35→12:34)
[2018-11-26 05:44] LABS: Hematocrit 24.8 % (35.5-45.6); Hemoglobin 8.4 gm/dl (11.8-15.2); Mean Corpuscular HGB Conc 34 % (32-34); Mean Corpuscular Volume 84 fl (84-94); Platelet Count 316 K/mm3 (140-440); Red Blood Count 2.96 M/mm3 (3.65-5.03)
[2018-11-26 06:07] LABS: Calcium 7.7 mg/dL (8.4-10.2)
[2018-11-26] MEDS: REGLAN FEEDTUBE SCH ×2 (10:32→13:09)
[2018-11-26] MEDS: PROTONIX IV SCH (12:33)
[2018-11-26] MEDS: SODIUM CHLORIDE FLUSH SYRINGE 10 ML IV SCH (12:34)
[2018-11-26] MEDS ORDERED: POTASSIUM CHLORIDE PO ONE (12:52)
--- NOTE | 2018-11-26 12:59 | Discharge Summary ---
Providers - Providers Date of Admission: 11/21/18 22:31 Date of discharge: 11/26/18 Attending physician: RODIRGUEZ HAMMONDS 11/21/18 22:31 Consult to Physician [CONS] Routine Comment: Dr. Ivory spoke with Dr. 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 Hospitalization Condition: Stable Hospital course: Patient is 33 yo man with a history of Type 1 DM, gastroparesis and hypertension who presented with n/v -Intractable n/v most likely due to Gastroparesis flare resolved with clear diet and reglan -Gastroparesis flare: patient on reglan at home, counseled on side effects and voiced understanding and wants to continue -Hematemesis/AGIB anemia most likely due to ulcerative esophagitis -Type 1 DM: difference in previous discharge summary is changed levemir to novolin 70/30 because of cost and patient doesnt have insurance and changed humalog to novolin r ssi Disposition: DC- TO HOME OR SELFCARE Time spent for discharge: 35 minutes Core Measure Documentation - Palliative Care Palliative Care/ Comfort Measures: Not Applicable - Core Measures Any of the following diagnoses?: none - VTE Discharge Requirements Deep Vein Thrombosis/Pulmonary Embolism Present on Admission: No Has pt received <5 days of overlap therapy or INR<2.0: No Anticoagulant overlap therapy prescribed at discharge: No Contraindication No Overlap Therapy order at DC: Not Indicated Exam - Physical Exam Narrative exam: GEN: WDWN, unkempt with stool soiled sheets and musty odor, ill appearing with n/v, NAD, Awake, Alert, Orientated HEENT: NCAT, EOMI, PERRL, OP Clear NECK: supple, no adenopathy, no thyromegaly, no JVD, right EJ CVS/HEART: RRR, normal S1S2, pulses present bilaterally CHEST/LUNGS: CTA B, Symmetrical chest expansion, good air entry bilaterally GI/Abdomen: soft, diffuse tenderness, nondistended good bowel sounds, no guarding or rebound /Bladder: no suprapubic tenderness, no CVA or paraspinal tenderness EXT/Skin: no c/c/e, no obvious rash, right finger iv line MSK: FROM x 4 Neuro: CN 2-12 grossly intact, no new focal deficits Psych: calm - Constitutional Vitals: Temp Pulse Resp BP Pulse Ox 97.9 F 68 18 143/90 97 11/26/18 04:44 11/26/18 04:44 11/26/18 04:44 11/26/18 04:44 11/26/18 04:44 Plan Activity: other (no strenous activity unless cleared by PCP) Diet: diabetic (NO Breads, no Broccoli, No cauliflower) Follow up with: CLEOPATRA HALL MD [Primary Care Provider] - 3-5 Days MIKY YOUNG MD [Staff Physician] - 7 Days Forms: Accompanied Note Prescriptions: amLODIPine [Norvasc] 10 mg PO QDAY #30 tablet Hydralazine HCl 50 mg PO TID 30 Days #90 tablet Insulin NPH/Regular [Novolin 70/30] 7 unit SQ BIDDIAB #1 vial Insulin Regular, Human [Novolin R] 1 dose SQ ACHS PRN #1 vial PRN Reason: Hyperglycemia Labetalol [Normodyne TAB] 300 mg PO BID 30 Days #60 tablet Metoclopramide [Reglan TAB] 10 mg PO QID PRN #60 tablet PRN Reason: Nausea Pantoprazole [Protonix TAB] 40 mg PO BID #60 tablet Promethazine [Phenergan SUPPOS] 50 mg MD Q6H PRN #20 supp.rect PRN Reason: Nausea Sucralfate [Carafate] 1 gm PO Q6HR #120 oral.liqd
[2018-11-26 13:33] VITALS: BP 167/99
== END 2018-11-26 16:25 | disposition home or self-care (01) | DRG 73 ==
LOC: ED 17:41 → 4A 22:31 → 3A 11-25 20:44
PROVIDERS: ADMIT Internal Medicine; ATTEND Internal Medicine
DX: E10.43 Type 1 diabetes mellitus with diabetic autonomic (poly)neuropathy (principal); K22.11 Ulcer of esophagus with bleeding; K31.84 Gastroparesis; N18.3 Chronic kidney disease, stage 3 (moderate); E10.22 Type 1 diabetes mellitus with diabetic chronic kidney disease; E10.65 Type 1 diabetes mellitus with hyperglycemia; I12.9 Hypertensive chronic kidney disease with stage 1 through stage 4 chronic kidney disease, or unspecified chronic kidney disease; Z82.49 Family history of ischemic heart disease and other diseases of the circulatory system; Z90.49 Acquired absence of other specified parts of digestive tract; Z87.11 Personal history of peptic ulcer disease
CPT/HCPCS: 36415; 71045; 80048; 80053; 82140; 82962; 83690; 83735; 85014; 85018; 85025; 85027; 85610; 85730; 86850; 86900; 86901; 86920; 87116; 93005; 93010; 96374; G0378; C9113; J0360; J1815; J2405; J2765; J7030

== ENCOUNTER 2018-12-01 11:00 | Emergency (ER) | payer SELFPAY ==
[2018-12-01] MEDS ORDERED: NACL 0.9% 1000 ML 1,000 ML IV ONE (11:10)
[2018-12-01] MEDS ORDERED: NACL 0.9% 500 ML 500 ML IV ONE (11:23)
[2018-12-01] MEDS ORDERED: PEPCID IV ONE (11:23)
[2018-12-01] MEDS ORDERED: HALDOL IM STA (11:24)
--- NOTE | 2018-12-01 11:24 | Emergency Department Report ---
ED GI Bleed HPI - General Chief complaint: GI Bleed Stated complaint: N/V Time Seen by Provider: 12/01/18 11:14 Source: patient, RN notes reviewed, old records reviewed Mode of arrival: Ambulatory Limitations: No Limitations - History of Present Illness Initial comments: This is a 33-year-old gentleman. I have evaluated this patient multiple times in the past. Has a history of renal insufficiency, endoscopically proven esophagitis, self- induced vomiting, stomach ulcer, hypertension, diabetes. Today, patient presents to the ER with a complaint of unopposed nausea and vomiting, which is accompanied by bloody emesis. He has vomited 4 times since this morning by his report. His symptoms are constant. They worsened with eating and drinking. It decreased with rest. He has mild abdominal wall pain. He denies headache, neck pain, severe shortness of breath, chest pain, bright red blood per rectum. Of note, patient has recently had multiple endoscopies at this hospital, which have demonstrated erosive esophagitis. He also has a history of self-induced vomiting, for which she was evaluated by psychiatry. In the emergency room, the patient is given Haldol, IV fluids, intravenous histamine antagonist, and all these improved his symptoms. He is now currently sleeping on a stretcher, and in no acute distress. MD complaint: blood streaked emesis -: Gradual Location: epigastric Radiation: none Quality: cramping Consistency: intermittent Improves with: other Worsens with: other Context: history of GI bleed, other Associated Symptoms: nausea, vomiting, loss of appetite, malaise, weakness. denies: epistaxis, fever/chills, headaches, easy bruising, rash, other bleeding, shortness of breath, syncope - Related Data Previous Rx's Medication Instructions Recorded Last Taken Type Hydralazine HCl 50 mg PO TID 30 Days #90 tablet 11/23/18 Unknown Rx Labetalol [Normodyne TAB] 300 mg PO BID 30 Days #60 tablet 11/23/18 Unknown Rx amLODIPine [Norvasc] 10 mg PO QDAY #30 tablet 11/23/18 Unknown Rx Insulin NPH/Regular [Novolin 70/30] 7 unit SQ BIDDIAB #1 vial 11/26/18 Unknown Rx Insulin Regular, Human [Novolin R] 1 dose SQ ACHS PRN #1 vial 11/26/18 Unknown Rx Metoclopramide [Reglan TAB] 10 mg PO QID PRN #60 tablet 12/01/18 Unknown Rx Pantoprazole [Protonix TAB] 40 mg PO BID #60 tablet 12/01/18 Unknown Rx Promethazine [Phenergan SUPPOS] 50 mg [place] Q6H PRN #20 supp.rect 12/01/18 Unknown Rx Sucralfate [Carafate] 1 gm PO Q6HR #120 oral.liqd 12/01/18 Unknown Rx Allergies Allergy/AdvReac Type Severity Reaction Status Date / Time No Known Allergies Allergy Verified 11/21/18 17:51 ED Review of Systems ROS: Stated complaint: N/V Other details as noted in HPI Constitutional: malaise. denies: fever Eyes: denies: eye discharge, vision change ENT: denies: epistaxis Respiratory: denies: cough Cardiovascular: denies: syncope Gastrointestinal: abdominal pain, nausea, vomiting Genitourinary: denies: dysuria Musculoskeletal: arthralgia, myalgia Skin: denies: lesions Neurological: weakness Psychiatric: anxiety ED Past Medical Hx - Past Medical History Hx Hypertension: Yes Hx Heart Attack/AMI: No Hx Congestive Heart Failure: No Hx Diabetes: Yes Hx Asthma: Yes Hx COPD: No Hx HIV: No Additional medical history: Ulcerative esophagitis - Surgical History Hx Appendectomy: Yes Additional Surgical History: right great toe removed - Social History Smoking Status: Never Smoker Substance Use Type: None - Medications Home Medications: Home Medications Medication Instructions Recorded Confirmed Last Taken Type Hydralazine HCl 50 mg PO TID 30 Days #90 tablet 11/23/18 Unknown Rx Labetalol [Normodyne TAB] 300 mg PO BID 30 Days #60 tablet 11/23/18 Unknown Rx amLODIPine [Norvasc] 10 mg PO QDAY #30 tablet 11/23/18 Unknown Rx Insulin NPH/Regular [Novolin 70/30] 7 unit SQ BIDDIAB #1 vial 11/26/18 Unknown Rx Insulin Regular, Human [Novolin R] 1 dose SQ ACHS PRN #1 vial 11/26/18 Unknown Rx Metoclopramide [Reglan TAB] 10 mg PO QID PRN #60 tablet 12/01/18 Unknown Rx Pantoprazole [Protonix TAB] 40 mg PO BID #60 tablet 12/01/18 Unknown Rx Promethazine [Phenergan SUPPOS] 50 mg [place] Q6H PRN #20 supp.rect 12/01/18 Unknown Rx Sucralfate [Carafate] 1 gm PO Q6HR #120 oral.liqd 12/01/18 Unknown Rx ED Physical Exam - General Limitations: No Limitations General appearance: alert, anxious - Head Head exam: Present: atraumatic, normocephalic - Eye Eye exam: Present: normal appearance, EOMI. Absent: nystagmus - ENT ENT exam: Present: normal exam, normal orophraynx, mucous membranes moist, normal external ear exam - Neck Neck exam: Present: normal inspection, full ROM. Absent: tenderness, meningismus - Respiratory Respiratory exam: Present: normal lung sounds bilaterally. Absent: respiratory distress - Cardiovascular Cardiovascular Exam: Present: normal rhythm, tachycardia, normal heart sounds. Absent: systolic murmur, diastolic murmur, rubs, gallop - GI/Abdominal GI/Abdominal exam: Present: soft. Absent: distended, tenderness, guarding, rebound, rigid, pulsatile mass - Rectal Rectal exam: Present: deferred - Extremities Exam Extremities exam: Present: normal inspection, full ROM, other (2+ pulses noted in the bilateral upper, lower extremities. Compartments soft. No long bony tenderness. The pelvis is stable.). Absent: calf tenderness - Back Exam Back exam: Present: normal inspection, full ROM. Absent: tenderness, CVA tender ness (R), paraspinal tenderness, vertebral tenderness - Neurological Exam Neurological exam: Present: alert, other (Extraocular movements intact. Tongue midline. No facial droop. Facial sensation intact to light touch in the V1, V2, V3 distribution bilaterally. 5 and 5 strength in 4 extremities.. Sensation is intact to light touch in 4 extremities.). Absent: motor sensory deficit - Psychiatric Psychiatric exam: Present: anxious - Skin Skin exam: Present: warm, dry, intact, normal color. Absent: rash ED Course Vital Signs 12/01/18 12/01/18 12/01/18 11:06 12:46 13:24 Temperature 98.4 F 99 F Pulse Rate 117 H 99 H 97 H Respiratory 18 18 16 Rate Blood Pressure 188/143 Blood Pressure 184/106 153/81 [Right] O2 Sat by Pulse 99 99 99 Oximetry - Reevaluation(s) Reevaluation #1: 12/01/18 13:29 Differential diagnosis, including but not limited to: Gastroparesis, hiatal hernia, Ayaka-Cevallos tear, esophagitis, medication noncompliance Assessment and plan: 33-year-old gentleman with recurrent presentation of hypertension, nausea and vomiting, emesis which is bloody. Patient has been evaluated by gastroenterology multiple times at this hospital. Laboratory studies appear to be at baseline. No active vomiting currently. We will continue the patient's current outpatient medications, and he'll be counseled to follow up with outpatient gastroenterology. He was treated supportively and symptomatically with IV fluids, pain control, antiemetic medication, and desmopressin given his history of mild renal insufficiency. ED Medical Decision Making - Lab Data Result diagrams: 12/01/18 11:27 12/01/18 11:27 Vital Signs 12/01/18 12/01/18 12/01/18 11:06 12:46 13:24 Temperature 98.4 F 99 F Pulse Rate 117 H 99 H 97 H Respiratory 18 18 16 Rate Blood Pressure 188/143 Blood Pressure 184/106 153/81 [Right] O2 Sat by Pulse 99 99 99 Oximetry Lab Results 12/01/18 12/01/18 12/01/18 Range/Units 11:27 11:27 11:27 WBC 7.7 (4.5-11.0) K/mm3 RBC 3.49 L (3.65-5.03) M/mm3 Hgb 9.9 L (11.8-15.2) gm/dl Hct 29.4 L (35.5-45.6) % MCV 84 (84-94) fl MCH 28 (28-32) pg MCHC 34 (32-34) % RDW 15.1 (13.2-15.2) % Plt Count 472 H (140-440) K/mm3 Lymph % (Auto) 24.2 (13.4-35.0) % [place] % (Auto) 6.2 (0.0-7.3) % Eos % (Auto) 1.2 (0.0-4.3) % Baso % (Auto) 0.8 (0.0-1.8) % Lymph # 1.9 (1.2-5.4) K/mm3 [place] # 0.5 (0.0-0.8) K/mm3 Eos # 0.1 (0.0-0.4) K/mm3 Baso # 0.1 (0.0-0.1) K/mm3 Seg Neutrophils % 67.6 (40.0-70.0) % Seg Neutrophils # 5.2 (1.8-7.7) K/mm3 PT 13.6 (12.2-14.9) Sec. INR 1.00 (0.87-1.13) APTT 35.5 (24.2-36.6) Sec. Sodium 142 (137-145) mmol/L Potassium 4.4 (3.6-5.0) mmol/L Chloride 106.4 (98-107) mmol/L Carbon Dioxide 20 L (22-30) mmol/L Anion Gap 20 mmol/L BUN 18 (9-20) mg/dL Creatinine 2.5 H (0.8-1.5) mg/dL Estimated GFR 37 ml/min BUN/Creatinine Ratio 7 % Glucose 258 H (75-100) mg/dL Calcium 8.9 (8.4-10.2) mg/dL Magnesium (1.7-2.3) mg/dL Total Bilirubin 0.30 (0.1-1.2) mg/dL AST 18 (5-40) units/L ALT 12 (7-56) units/L Alkaline Phosphatase 69 (35-129) units/L Total Protein 5.7 L (6.3-8.2) g/dL Albumin 2.6 L (3.9-5) g/dL Albumin/Globulin Ratio 0.8 % Blood Type Antibody Screen 12/01/18 12/01/18 Range/Units 11:27 11:27 WBC (4.5-11.0) K/mm3 RBC (3.65-5.03) M/mm3 Hgb (11.8-15.2) gm/dl Hct (35.5-45.6) % MCV (84-94) fl MCH (28-32) pg MCHC (32-34) % RDW (13.2-15.2) % Plt Count (140-440) K/mm3 Lymph % (Auto) (13.4-35.0) % [place] % (Auto) (0.0-7.3) % Eos % (Auto) (0.0-4.3) % Baso % (Auto) (0.0-1.8) % Lymph # (1.2-5.4) K/mm3 [place] # (0.0-0.8) K/mm3 Eos # (0.0-0.4) K/mm3 Baso # (0.0-0.1) K/mm3 Seg Neutrophils % (40.0-70.0) % Seg Neutrophils # (1.8-7.7) K/mm3 PT (12.2-14.9) Sec. INR (0.87-1.13) APTT (24.2-36.6) Sec. Sodium (137-145) mmol/L Potassium (3.6-5.0) mmol/L Chloride (98-107) mmol/L Carbon Dioxide (22-30) mmol/L Anion Gap mmol/L BUN (9-20) mg/dL Creatinine (0.8-1.5) mg/dL Estimated GFR ml/min BUN/Creatinine Ratio % Glucose (75-100) mg/dL Calcium (8.4-10.2) mg/dL Magnesium 1.90 (1.7-2.3) mg/dL Total Bilirubin (0.1-1.2) mg/dL AST (5-40) units/L ALT (7-56) units/L Alkaline Phosphatase (35-129) units/L Total Protein (6.3-8.2) g/dL Albumin (3.9-5) g/dL Albumin/Globulin Ratio % Blood Type O POSITIVE Antibody Screen Negative - EKG Data -: EKG Interpreted by Ri EKG shows normal: sinus rhythm - EKG Data 12/01/18 13:29 Sinus tachycardia, 105 bpm, normal intervals, normal axis, motion artifact, not consistent with ST elevation myocardial infarction. - Radiology Data Radiology results: report reviewed, image reviewed X-ray of the chest is negative for acute disease Critical care attestation.: If time is entered above; I have spent that time in minutes in the direct care of this critically ill patient, excluding procedure time. ED Disposition Clinical Impression: CKD (chronic kidney disease), Ulcerative esophagitis Disposition: - TO HOME OR SELFCARE Is pt being admited?: No Does the pt Need Aspirin: No Condition: Stable Instructions: Corrosive Esophagitis (ED) Additional Instructions: Avoid consumption of Motrin, ibuprofen, Naprosyn, Aleve, heavy, spicy foods. Take the medications as needed/directed. Follow-up with a components engineer within the next month. Follow up with a photo print specialist for chronic renal insufficiency within the next 4-6 weeks. Please return to the ER right away with new pain, worsened pain, migration of pain, persistent or worsening vomiting, change in mental status, confusion, inability to speak, inability to breathe, it, worsened or different symptoms. Referrals: BRENDA MORFIN MD [Primary Care Provider] - 3-5 Days HELENA TATE MD [Staff Physician] - 7-10 days CARLYN GONZALES MD [Staff Physician] - 7-10 days Forms: Accompanied Note
[2018-12-01] MEDS ORDERED: DDAVP IV ONE (12:00)
[2018-12-01] MEDS ORDERED: NACL 0.9% IV ONE (12:00)
[2018-12-01 12:05] LABS: Basophils # (Auto) 0.1 K/mm3 (0.0-0.1); Basophils % (Auto) 0.8 % (0.0-1.8); Eosinophils # (Auto) 0.1 K/mm3 (0.0-0.4); Eosinophils % (Auto) 1.2 % (0.0-4.3); Hematocrit 29.4 % (35.5-45.6); Hemoglobin 9.9 gm/dl (11.8-15.2); Lymphocytes # (Auto) 1.9 K/mm3 (1.2-5.4); Lymphocytes % (Auto) 24.2 % (13.4-35.0); Mean Corpuscular HGB Conc 34 % (32-34); Mean Corpuscular Volume 84 fl (84-94); Monocytes # (Auto) 0.5 K/mm3 (0.0-0.8); Monocytes % (Auto) 6.2 % (0.0-7.3); Platelet Count 472 K/mm3 (140-440); Red Blood Count 3.49 M/mm3 (3.65-5.03); Red Cell Distribution Width 15.1 % (13.2-15.2)
[2018-12-01 12:18] LABS: Partial Thromboplastin Time 35.5 Sec. (24.2-36.6)
[2018-12-01 12:33] LABS: Albumin 2.6 g/dL (3.9-5); Calcium 8.9 mg/dL (8.4-10.2)
--- NOTE | 2018-12-01 12:48 | XRay Report ---
AP CHEST: HISTORY: Nausea and vomiting, hematemesis AP view of the chest demonstrates a normal mediastinal and cardiac contour with clear lungs and normal bony and soft tissue structures. IMPRESSION: Unremarkable AP chest. No change since 11/21/18.
[2018-12-01 15:19] VITALS: BP 155/77
== END 2018-12-01 15:30 | disposition home or self-care (01) ==
LOC: ED 11:00
DX: K22.10 Ulcer of esophagus without bleeding (principal); I12.9 Hypertensive chronic kidney disease with stage 1 through stage 4 chronic kidney disease, or unspecified chronic kidney disease; N18.9 Chronic kidney disease, unspecified; E11.22 Type 2 diabetes mellitus with diabetic chronic kidney disease; J45.909 Unspecified asthma, uncomplicated; Z90.49 Acquired absence of other specified parts of digestive tract
CPT/HCPCS: 36415; 71045; 80053; 83735; 85025; 85610; 85730; 86850; 86900; 86901; 93005; 93010; 96361; 96365; 96366; 96375; 99284; J2597; J7040

== ENCOUNTER 2019-04-16 20:31 | Inpatient (IN) | payer OTHER ==
[2019-04-16] MEDS ORDERED: ZOFRAN ODT PO ONE (21:19)
--- NOTE | 2019-04-16 21:19 | Event Note ---
ED Screening Note ED Screening Note: pt presents with N/V/D that began two days ago abd cramping subjective fever "recent abx at [place] for his stomach" does not know what it was PMHx DM, esophagitis, gastroparesis non smoker non drinker no drug use This initial assessment/diagnostic orders/clinical plan/treatment(s) is/are subject to change based on patients health status, clinical progression and re- assessment by fellow clinical providers in the ED. Further treatment and workup at subsequent clinical providers discretion. Patient/guardian urged not to elope from the ED as their condition may be serious if not clinically assessed and managed. Initial orders include: labs zofran given in triage
[2019-04-16] MEDS ORDERED: ZOFRAN ODT ONE (21:22)
[2019-04-16] MEDS ORDERED: ZOFRAN IV ONE (21:31)
[2019-04-16] MEDS ORDERED: NACL 0.9% 1000 ML 1,000 ML IV ONE (21:31)
[2019-04-16] MEDS ORDERED: CATAPRES PO ONE (21:31)
[2019-04-16] MEDS ORDERED: APRESOLINE IV ONE (21:33)
--- NOTE | 2019-04-16 21:58 | Emergency Department Report ---
Blank Doc - Documentation Documentation: This is a 33-year-old male that presents with upper GI bleed. Hypertension in ED. I will start IV fluids, hydralazine, Zofran, Pepcid. Labs ordered. EKG ordered. CT of abdomen with IV contrast has been ordered. Patient signed out to Dr. Harp for further evaluation and treatment. Patient sent to MAIN side ED.
[2019-04-16 22:47] LABS: Basophils # (Auto) 0.1 K/mm3 (0.0-0.1); Basophils % (Auto) 0.6 % (0.0-1.8); Hematocrit 22.8 % (35.5-45.6); Hemoglobin 7.8 gm/dl (11.8-15.2); Lymphocytes # (Auto) 1.5 K/mm3 (1.2-5.4); Lymphocytes % (Auto) 15.1 % (13.4-35.0); Mean Corpuscular HGB Conc 34 % (32-34); Mean Corpuscular Volume 82 fl (84-94); Monocytes # (Auto) 0.8 K/mm3 (0.0-0.8); Monocytes % (Auto) 7.7 % (0.0-7.3); Platelet Count 381 K/mm3 (140-440); Red Blood Count 2.77 M/mm3 (3.65-5.03); Red Cell Distribution Width 15.1 % (13.2-15.2)
[2019-04-16 22:57] LABS: INR 1.01 (0.87-1.13)
[2019-04-16] MEDS ORDERED: REGLAN IV ONE (23:04)
[2019-04-16] MEDS ORDERED: PROTONIX IV ONE (23:04)
[2019-04-16] MEDS ORDERED: MORPHINE IV ONE (23:04)
[2019-04-16 23:09] LABS: Albumin 2.3 g/dL (3.9-5); Calcium 8.7 mg/dL (8.4-10.2)
--- NOTE | 2019-04-16 23:18 | Emergency Department Report ---
ED GI Bleed HPI - General Chief complaint: GI Bleed Stated complaint: VOMITING Time Seen by Provider: 04/16/19 21:17 Source: patient, EMS Mode of arrival: Ambulatory Limitations: No Limitations - History of Present Illness Initial comments: 33-year-old male with history of diabetes, gastroparesis, esophagitis, chronic kidney disease presents to ED with epigastric pain and coffee-ground emesis. Patient states symptoms began 2 days ago, however, patient reports he was discharged from [facility] 4 days ago following a 5 day admission for same symptoms. Patient denies getting EGD at [place] or receiving a blood transfusion. Patient states that is diffuse, however worse in the epigastric region. Patient states this is the usual location of his pain. MD complaint: coffee ground emesis -: days(s) (2) Location: epigastric Radiation: other (diffusely) Quality: cramping, sharp Consistency: constant Improves with: none Worsens with: none Context: history of GI bleed Associated Symptoms: abdominal pain, nausea, vomiting - Related Data Previous Rx's Medication Instructions Recorded Last Taken Type Hydralazine HCl 50 mg PO TID 30 Days #90 tablet 11/23/18 Unknown Rx Labetalol [Labetalol 100mg TAB] 300 mg PO BID 30 Days #60 tablet 11/23/18 Unk nown Rx amLODIPine [Norvasc] 10 mg PO QDAY #30 tablet 11/23/18 Unknown Rx Insulin NPH/Regular [Novolin 70/30] 7 unit SQ BIDDIAB #1 vial 11/26/18 Unknown Rx Insulin Regular, Human [Novolin R] 1 dose SQ ACHS PRN #1 vial 11/26/18 Unknown Rx Metoclopramide [Reglan TAB] 10 mg PO QID PRN #60 tablet 12/01/18 Unknown Rx Pantoprazole [Protonix TAB] 40 mg PO BID #60 tablet 12/01/18 Unknown Rx Promethazine [Phenergan SUPPOS] [address] Q6H PRN #20 supp.rect 12/01/18 Unknown Rx Sucralfate [Carafate] 1 gm PO Q6HR #120 oral.liqd 12/01/18 Unknown Rx Allergies Allergy/AdvReac Type Severity Reaction Status Date / Time No Known Allergies Allergy Verified 11/21/18 17:51 ED Review of Systems ROS: Stated complaint: VOMITING Other details as noted in HPI Comment: All other systems reviewed and negative Constitutional: denies: chills, fever Gastrointestinal: abdominal pain, nausea, vomiting, hematemesis ED Past Medical Hx - Past Medical History Previous Medical History?: Yes Hx Hypertension: Yes Hx Heart Attack/AMI: No Hx Congestive Heart Failure: No Hx Diabetes: Yes Hx Asthma: Yes Hx COPD: No Hx HIV: No Additional medical history: Ulcerative esophagitis, Gastroparesis - Surgical History Past Surgical History?: Yes Hx Appendectomy: Yes Additional Surgical History: right great toe removed - Social History Smoking Status: Never Smoker Substance Use Type: None - Medications Home Medications: Home Medications Medication Instructions Recorded Confirmed Last Taken Type Hydralazine HCl 50 mg PO TID 30 Days #90 tablet 11/23/18 Unknown Rx Labetalol [Labetalol 100mg TAB] 300 mg PO BID 30 Days #60 tablet 11/23/18 Unknown Rx amLODIPine [Norvasc] 10 mg PO QDAY #30 tablet 11/23/18 Unknown Rx Insulin NPH/Regular [Novolin 70/30] 7 unit SQ BIDDIAB #1 vial 11/26/18 Unknown Rx Insulin Regular, Human [Novolin R] 1 dose SQ ACHS PRN #1 vial 11/26/18 Unknown Rx Metoclopramide [Reglan TAB] 10 mg PO QID PRN #60 tablet 12/01/18 Unknown Rx Pantoprazole [Protonix TAB] 40 mg PO BID #60 tablet 12/01/18 Unknown Rx Promethazine [Phenergan SUPPOS] [address] Q6H PRN #20 supp.rect 12/01/18 Unknown Rx Sucralfate [Carafate] 1 gm PO Q6HR #120 oral.liqd 12/01/18 Unknown Rx ED Physical Exam - General Limitations: No Limitations General appearance: alert, in no apparent distress - Head Head exam: Present: atraumatic, normocephalic - Eye Eye exam: Present: normal appearance - ENT ENT exam: Present: mucous membranes moist - Neck Neck exam: Present: normal inspection - Respiratory Respiratory exam: Present: normal lung sounds bilaterally. Absent: respiratory distress - Cardiovascular Cardiovascular Exam: Present: normal rhythm, tachycardia - GI/Abdominal GI/Abdominal exam: Present: soft, tenderness. Absent: distended - Extremities Exam Extremities exam: Present: pedal edema - Neurological Exam Neurological exam: Present: alert, oriented X3 - Psychiatric Psychiatric exam: Present: normal affect, normal mood - Skin Skin exam: Present: warm, dry, intact, normal color ED Course Vital Signs 04/16/19 04/16/19 04/16/19 20:44 23:02 23:31 Temperature 99.5 F 99.5 F Pulse Rate 115 H 97 H 113 H Respiratory 20 18 20 Rate Blood Pressure 196/120 204/109 204/112 Blood Pressure 204/109 [Left] O2 Sat by Pulse 100 100 100 Oximetry 04/16/19 04/17/19 23:45 00:00 Temperature Pulse Rate 106 H 109 H Respiratory 18 19 Rate Blood Pressure 204/112 171/92 Blood Pressure [Left] O2 Sat by Pulse 100 100 Oximetry - Consultations Consultation #1: 04/16/19 23:18 Spoke w/ Dr Lagunas. Aware of pt. ED Medical Decision Making - Lab Data Result diagrams: 04/16/19 22:25 04/16/19 22:25 - Medical Decision Making 33-year-old male with epigastric pain and coffee-ground emesis. Patient has had multiple admissions for same in the past. Patient actively vomiting coffee grounds, however no bright red blood has been present in his emesis. Patient started on Protonix drip. Hemoglobin of 7.8, baseline has been around 9, so one unit of PRBCs ordered for transfusion. Dr. Lagunas with GI was consultated, is aware of the patient. Patient has history of chronic kidney disease, however currently has acute on chronic renal failure with BUN and creatinine currently 50 and 5.9, baseline creatinine is usually around 2.5. Potassium is normal. Patient given IV fluid bolus. Patient was also hypertensive upon arrival, with history of hypertension. Hydralazine and clonidine given the improvement in blood pressure. NG tube was ordered, however patient refused. Will admit to hospitalist, Dr Ward, for further management. - Differential Diagnosis ulcer, gastritis, esophagitis Critical Care Time: Yes Critical care time in (mins) excluding proc time.: 35 Critical care attestation.: If time is entered above; I have spent that time in minutes in the direct care of this critically ill patient, excluding procedure time. Critical Care Time: 35 minutes ED Disposition Clinical Impression: Upper GI bleed, Hypertensive urgency, Anemia, Acute on chronic renal insufficiency Disposition: OP ADMIT IP TO THIS HOSP Is pt being admited?: Yes Condition: Stable Referrals: SANCHEZ NANCE MD [Primary Care Provider] - 3-5 Days Forms: Accompanied Note
[2019-04-16] MEDS ORDERED: NACL 0.9% 500 ML 500 ML IV ONE (23:19)
[2019-04-17] MEDS: PROTONIX 80 MG in NACL 0.9% 100 ML IV SCH ×3 (00:12→19:53)
[2019-04-17] MEDS ORDERED: APRESOLINE IV PRN ×2 (01:07→04:18)
--- NOTE | 2019-04-17 01:07 | History and Physical Report ---
History of Present Illness Date of examination: 04/16/19 History of present illness: 33-year-old man with a history of hypertension, diabetes, complicated by gastroparesis, chronic kidney disease, gastric ulcer, esophagitis comes emergency room because he has been vomiting blood for 2 days, unable to tolerate oral intake, + coffee ground emesis. He was at [facility] 4 days ago for similar symptoms, he was admitted there for 4 days, status post endoscopy does not know the results. Blood transfusion started in the ER Review of systems Constitutional: no weight loss, chills, fever Ears, eyes, nose, mouth and throat: no nasal congestion, no nasal discharge, no sinus pressure, no vision change, no red eye. Neck: No neck pain or rigidity. Cardiovascular: no chest pain, palpitations Respiratory: no cough Gastrointestinal: no hematochezia, abdominal pain Genitourinary : no frequency , no hematuria Musculoskeletal: no joint swelling or muscle ache Integumentary: no rash, no pruritis Neurological: no parathesias, no numbness, no focal weakness Endocrine: no cold or heat intolerance, no polyuria or polydipsia Hematologic/Lymphatic: no easy bruising, no easy bleeding, no gland swelling Allergic/Immunologic: no urticaria, no angioedema. PAST MEDICAL HISTORY: Hypertension, diabetes, compensated by gastroparesis, chronic kidney disease, gastric ulcer PAST SURGICAL HISTORY: Appendectomy SOCIAL HISTORY: No alcohol, no drugs, tobacco FAMILY HISTORY: Hypertension Medications and Allergies Allergies Allergy/AdvReac Type Severity Reaction Status Date / Time No Known Allergies Allergy Verified 11/21/18 17:51 Home Medications Medication Instructions Recorded Confirmed Last Taken Type Hydralazine HCl 50 mg PO TID 30 Days #90 tablet 11/23/18 04/17/19 Unknown Rx Insulin NPH/Regular [Novolin 70/30] 7 unit SQ BIDDIAB #1 vial 11/26/18 04/17/19 Unknown Rx Insulin Regular, Human [Novolin R] 1 dose SQ ACHS PRN #1 vial 11/26/18 04/17/19 Unknown Rx Active Meds: Active Medications Pantoprazole Sodium 80 mg/ (Sodium Chloride) 100 mls @ 10 mls/hr IV DIRECT KESHIA Last Admin: 04/17/19 00:12 Dose: 8 mg/hr, 10 mls/hr Documented by: Exam - Physical Exam Narrative exam: General Apperance: The patient lying in bed, breathing comfortable HEENT: Normocephalic, atraumatic. Pupils equally round and reactive to light, EOMI, no sclericterus or JVD or thyromegaly or nodule. , no carotid bruit, mucous membranes moist, no exudate or erythema Heart: S1-S2, regular is rhythm Lungs: Clear to auscultation bilaterally, breathing comfortable Abdomen: Positive bowel sounds, soft, nontender, nondistended, no organomegaly Extremities: No edema cyanosis clubbing Skin: no rash, nodule, warm and dry Neuro: cranial nerves 2-12 intact, speech is fluent, motor/sensory intact - Constitutional Vitals: Temp Pulse Resp BP Pulse Ox 99.5 F 109 H 19 171/92 100 04/16/19 23:02 04/17/19 00:00 04/17/19 00:00 04/17/19 00:00 04/17/19 00:00 Results - Labs CBC & Chem 7: 04/19/19 Unknown 04/19/19 Unknown Labs: Abnormal lab results 04/16/19 04/16/19 Range/Units 22:25 22:25 RBC 2.77 L (3.65-5.03) M/mm3 Hgb 7.8 L (11.8-15.2) gm/dl Hct 22.8 L (35.5-45.6) % MCV 82 L (84-94) fl [place] % (Auto) 7.7 H (0.0-7.3) % Seg Neutrophils % 76.6 H (40.0-70.0) % Chloride 109.6 H (98-107) mmol/L Carbon Dioxide 20 L (22-30) mmol/L BUN 50 H (9-20) mg/dL Creatinine 5.9 H (0.8-1.5) mg/dL Glucose 322 H (75-100) mg/dL Total Protein 5.1 L (6.3-8.2) g/dL Albumin 2.3 L (3.9-5) g/dL Assessment and Plan Assessment Upper GI bleed, history of gastric ulcer Acute on Chronic kidney disease gastroparesis, acute on chronic Hypertension Diabetes Plan Admit to medicine Start IV fluid, Protonix drip Consult GI,follow hemoglobin Check fingersticks, initiate insulin sliding scale IV hydralazine for blood pressure control DVT prophylaxis
[2019-04-17] MEDS ORDERED: D50W (25GM) Syringe IV PRN (01:30)
[2019-04-17] MEDS ORDERED: REGLAN IV PRN (01:34)
[2019-04-17] MEDS ORDERED: MORPHINE IV PRN (04:19)
[2019-04-17] MEDS ORDERED: SODIUM CHLORIDE FLUSH SYRINGE 10 ML IV PRN (04:19)
[2019-04-17] MEDS ORDERED: TYLENOL PO PRN (04:19)
[2019-04-17] MEDS ORDERED: ZOFRAN ONE (04:51)
[2019-04-17 05:24] LABS: Chol/HDL Ratio 5.48 %
[2019-04-17] MEDS ORDERED: NACL 0.9% 500 ML 500 ML ONE (05:39)
[2019-04-17] MEDS: REGLAN IV PRN ×2 (06:26→17:09)
[2019-04-17] MEDS: HumaLOG SUB-Q SCH ×3 (06:26→18:17)
[2019-04-17] MEDS: SODIUM CHLORIDE FLUSH SYRINGE 10 ML IV SCH (10:26)
[2019-04-17] MEDS: ZOFRAN IV PRN ×2 (11:17→22:43)
[2019-04-17] MEDS: NACL 0.45% 1000 ML 1,000 ML IV SCH (11:28)
[2019-04-17 12:20] LABS: Bilirubin,Urine NEG (Negative); Blood,Urine NEG (Negative); Color,Urine Yellow (Yellow); Mucus,Urine FEW /HPF; Urobilinogen,Urine < 2.0 mg/dL (<2.0)
[2019-04-17 12:23] LABS: Protein,Urine >500 mg/dL (Negative)
--- NOTE | 2019-04-17 13:00 | Consultation ---
History of Present Illness - Reason for Consult Consult date: 04/17/19 acute renal failure - History of Present Illness Patient is a poor historian. Only states that he feels "different". History obtained from medical records Mr. Eddy is a 33-year-old male with Type I diabetes, diabetic gastroparesis, and chronic kidney disease who presented to ED with c/o epigastric pain and coffee-ground emesis. Patient reported that symptoms began 2 days prior to admission; he also reports recent d/c from [facility] 4 days ago Past History Past Medical History: diabetes, other (chronic kidney disease) Social history: other (unable to obtain) Family history: other (unable to obtain) Medications and Allergies Allergies Allergy/AdvReac Type Severity Reaction Status Date / Time No Known Allergies Allergy Verified 11/21/18 17:51 Home Medications Medication Instructions Recorded Confirmed Last Taken Type Hydralazine HCl 50 mg PO TID 30 Days #90 tablet 11/23/18 04/17/19 Unknown Rx Insulin NPH/Regular [Novolin 70/30] 7 unit SQ BIDDIAB #1 vial 11/26/18 04/17/19 Unknown Rx Insulin Regular, Human [Novolin R] 1 dose SQ ACHS PRN #1 vial 11/26/18 04/17/19 Unknown Rx Active Meds: Active Medications Acetaminophen (Tylenol) 650 mg PO Q4H PRN PRN Reason: Pain MILD(1-3)/Fever >100.5/LANZA Dextrose (D50w (25gm) Syringe) 50 ml IV PRN PRN PRN Reason: Hypoglycemia Hydralazine HCl (Apresoline) 10 mg IV Q6H PRN PRN Reason: Hypertension Pantoprazole Sodium 80 mg/ (Sodium Chloride) 100 mls @ 10 mls/hr IV DIRECT KESHIA Last Admin: 04/17/19 10:26 Dose: 8 mg/hr, 10 mls/hr Documented by: Sodium Chloride (Nacl 0.45% 1000 Ml) 1,000 mls @ 75 mls/hr IV DIRECT KESHIA Last Admin: 04/17/19 11:28 Dose: 75 mls/hr Documented by: Insulin Human Lispro (Humalog) 0 unit SUB-Q Q6HR KESHIA; Protocol Last Admin: 04/17/19 11:25 Dose: 2 unit Documented by: Metoclopramide HCl (Reglan) 5 mg IV Q6H PRN PRN Reason: Nausea And Vomiting Last Admin: 04/17/19 06:26 Dose: 5 mg Documented by: Morphine Sulfate (Morphine) 2 mg IV Q4H PRN PRN Reason: Pain, Moderate (4-6) Ondansetron HCl (Zofran) 4 mg IV Q4H PRN PRN Reason: Nausea And Vomiting Last Admin: 04/17/19 11:17 Dose: 4 mg Documented by: Sodium Chloride (Sodium Chloride Flush Syringe 10 Ml) 10 ml IV BID KESHIA Last Admin: 04/17/19 10:26 Dose: 10 ml Documented by: Sodium Chloride (Sodium Chloride Flush Syringe 10 Ml) 10 ml IV PRN PRN PRN Reason: LINE FLUSH Review of Systems ROS unobtainable: due to mental status Exam - Vital Signs Vital signs: Vital Signs Temp Pulse Resp BP Pulse Ox 99.5 F 115 H 20 196/120 100 04/16/19 20:44 04/16/19 20:44 04/16/19 20:44 04/16/19 20:44 04/16/19 20:44 - General Appearance General appearance: well-developed, well-nourished EENT: ATNC Respiratory: Clear to Ascultation Heart: regular, S1S2 Gastrointestinal: Present: normal. Absent: tenderness, distended Integumentary: no rash, warm and dry Musculoskeletal: Present: other (no edema) Results - Lab Results 04/17/19 12:46 04/17/19 12:46 Most recent lab results WBC 9.8 K/mm3 (4.5-11.0) 04/16/19 22:25 RBC 2.77 M/mm3 (3.65-5.03) L 04/16/19 22:25 Hgb 7.8 gm/dl (11.8-15.2) L 04/16/19 22:25 Hct 22.8 % (35.5-45.6) L 04/16/19 22:25 MCV 82 fl (84-94) L 04/16/19 22:25 MCH 28 pg (28-32) 04/16/19 22:25 MCHC 34 % (32-34) 04/16/19 22:25 RDW 15.1 % (13.2-15.2) 04/16/19 22:25 Plt Count 381 K/mm3 (140-440) 04/16/19 22:25 Lymph % (Auto) 15.1 % (13.4-35.0) 04/16/19 22:25 [place] % (Auto) 7.7 % (0.0-7.3) H 04/16/19 22:25 Eos % (Auto) 0.0 % (0.0-4.3) 04/16/19 22:25 Baso % (Auto) 0.6 % (0.0-1.8) 04/16/19 22:25 Lymph # 1.5 K/mm3 (1.2-5.4) 04/16/19 22:25 [place] # 0.8 K/mm3 (0.0-0.8) 04/16/19 22:25 Eos # 0.0 K/mm3 (0.0-0.4) 04/16/19 22:25 Baso # 0.1 K/mm3 (0.0-0.1) 04/16/19 22:25 Seg Neutrophils % 76.6 % (40.0-70.0) H 04/16/19 22:25 Seg Neutrophils # 7.5 K/mm3 (1.8-7.7) 04/16/19 22:25 PT 13.9 Sec. (12.2-14.9) 04/16/19 22:25 INR 1.01 (0.87-1.13) 04/16/19 22:25 APTT 28.0 Sec. (24.2-36.6) 04/16/19 22:25 Sodium 144 mmol/L (137-145) 04/16/19 22:25 Potassium 4.4 mmol/L (3.6-5.0) 04/16/19 22:25 Chloride 109.6 mmol/L (98-107) H 04/16/19 22:25 Carbon Dioxide 20 mmol/L (22-30) L 04/16/19 22:25 19 mmol/L 04/16/19 22:25 BUN 50 mg/dL (9-20) H 04/16/19 22:25 5.9 mg/dL (0.8-1.5) H 04/16/19 22:25 Estimated GFR 14 ml/min 04/16/19 22:25 8 % 04/16/19 22:25 Glucose 322 mg/dL (75-100) H 04/16/19 22:25 POC Glucose 219 (70-105) H 04/17/19 11:21 Calcium 8.7 mg/dL (8.4-10.2) 04/16/19 22:25 0.20 mg/dL (0.1-1.2) 04/16/19 22:25 AST 14 units/L (5-40) 04/16/19 22:25 ALT 12 units/L (7-56) 04/16/19 22:25 56 units/L (35-129) 04/16/19 22:25 Cancelled 04/16/19 22:25 CK-MB (CK-2) Cancelled 04/16/19 22:25 CK-MB (CK-2) Rel Index Cancelled 04/16/19 22:25 0.166 ng/mL (0.00-0.029) H* 04/16/19 22:25 5.1 g/dL (6.3-8.2) L 04/16/19 22:25 2.3 g/dL (3.9-5) L 04/16/19 22:25 0.8 % 04/16/19 22:25 Triglycerides 170 mg/dL (2-149) H 04/16/19 22:25 Cholesterol 274 mg/dL (50-199) H 04/16/19 22:25 214 mg/dL (50-130) H 04/16/19 22:25 50 mg/dL (40-59) 04/16/19 22:25 5.48 % 04/16/19 22:25 26 units/L (13-60) 04/16/19 22:25 Yellow (Yellow) 04/17/19 11:15 Clear (Clear) 04/17/19 11:15 7.0 (5.0-7.0) 04/17/19 11:15 Ur Specific [place] 1.017 (1.003-1.030) 04/17/19 11:15 >500 mg/dL (Negative) 04/17/19 11:15 >=500 mg/dL (Negative) 04/17/19 11:15 Neg mg/dL (Negative) 04/17/19 11:15 Neg (Negative) 04/17/19 11:15 Neg (Negative) 04/17/19 11:15 Neg (Negative) 04/17/19 11:15 < 2.0 mg/dL (<2.0) 04/17/19 11:15 Ur Leukocyte Esterase Neg (Negative) 04/17/19 11:15 3.0 /HPF (0.0-6.0) 04/17/19 11:15 2.0 /HPF (0.0-6.0) 04/17/19 11:15 U Epithel Cells (Auto) < 1.0 /HPF (0-13.0) 04/17/19 11:15 Few /HPF 04/17/19 11:15 Assessment and Plan Impression: * Acute kidney injury secondary to volume depletion on Stage III CKD * Coffee ground emesis r/o UGIB * Diabetic gastroparesis * Type I DM * Accelerated HTN * Anemia Plan: * Agree w/ IVF for hydration. Renal prognosis is guarded * GI consultation pending * Glycemic control per primary team * Will order clonidine patch for BP control * Avoid potential nephrotoxic agents * Dose medications for renal function * Strict I/O * AM labs
--- NOTE | 2019-04-17 13:00 | Event Note ---
Date: 04/17/19 Patient with hematemesis, acute on CKD. I have seen and examined him. Consulted nephrology.
[2019-04-17 13:33] LABS: Hematocrit 25.4 % (35.5-45.6); Hemoglobin 8.5 gm/dl (11.8-15.2); Mean Corpuscular HGB Conc 33 % (32-34); Mean Corpuscular Volume 83 fl (84-94); Platelet Count 389 K/mm3 (140-440); Red Blood Count 3.05 M/mm3 (3.65-5.03); Red Cell Distribution Width 15.3 % (13.2-15.2)
[2019-04-17 13:45] LABS: Alanine Aminotransferase 11 units/L (7-56); Albumin 2.2 g/dL (3.9-5); BUN/Creatinine Ratio 8; Blood Urea Nitrogen 50 mg/dL (9-20); Calcium 8.5 mg/dL (8.4-10.2); Hemolysis Index 3
[2019-04-17 13:47] LABS: Bilirubin,Direct < 0.2 mg/dL (0-0.2)
[2019-04-17 14:42] LABS: Basophils % (Manual) 0 % (0.0-1.8); Eosinophils % (Manual) 0 % (0.0-4.3); Myelocytes # (Manual) 0.1 K/mm3; Total Cells Counted 100
[2019-04-17 14:43] LABS: Anisocytosis 1+; Platelet Estimate Consistent w Auto; Poikilocytosis 1+
[2019-04-17] MEDS ORDERED: CATAPRES-TTS PATCH TD SCH (16:00)
[2019-04-17] MEDS ORDERED: ATIVAN IV PRN (16:37)
--- NOTE | 2019-04-17 16:37 | Gastroenterology Consultation ---
History of Present Illness - Reason for Consult Consult date: 04/17/19 coffee ground emesis Requesting physician: GAIL PERRY - History of Present Illness This is a 33 yo male with pmh of poorly controlled type 1 DM, PUD, and ulcerative esophagitis admitted overnight for nausea/vomiting and coffee ground emesis. History is limited as he is a poor historian. He was admitted at [facility] last week for same symptoms and had EGD 4 days ago. He does not know the resul ts. He states he had persistent nausea/vomiting even on discharge. He complains of diffuse abdominal pain, which started after nausea/vomiting. Work up so far revealed acute on chronic kidney disease with worsening kidney function. nephrology was consulted. He continues to vomit today but no hematemesis. No blood in the stool or melena. Past History Past Medical History: diabetes, other (chronic kidney disease) Social history: other (unable to obtain) Family history: other (unable to obtain) Medications and Allergies Allergies Allergy/AdvReac Type Severity Reaction Status Date / Time No Known Allergies Allergy Verified 11/21/18 17:51 Home Medications Medication Instructions Recorded Confirmed Last Taken Type Hydralazine HCl 50 mg PO TID 30 Days #90 tablet 11/23/18 04/17/19 Unknown Rx Insulin NPH/Regular [Novolin 70/30] 7 unit SQ BIDDIAB #1 vial 11/26/18 04/17/19 Unknown Rx Insulin Regular, Human [Novolin R] 1 dose SQ ACHS PRN #1 vial 11/26/18 04/17/19 Unknown Rx Active Meds: Active Medications Acetaminophen (Tylenol) 650 mg PO Q4H PRN PRN Reason: Pain MILD(1-3)/Fever >100.5/LANZA Clonidine HCl (Catapres-Tts Patch) 0.1 mg TD Fr KESHIA Dextrose (D50w (25gm) Syringe) 50 ml IV PRN PRN PRN Reason: Hypoglycemia Hydralazine HCl (Apresoline) 10 mg IV Q6H PRN PRN Reason: Hypertension Pantoprazole Sodium 80 mg/ (Sodium Chloride) 100 mls @ 10 mls/hr IV DIRECT KESHIA Last Admin: 04/17/19 10:26 Dose: 8 mg/hr, 10 mls/hr Documented by: Sodium Chloride (Nacl 0.45% 1000 Ml) 1,000 mls @ 75 mls/hr IV DIRECT [facility] Last Admin: 04/17/19 11:28 Dose: 75 mls/hr Documented by: Insulin Human Lispro (Humalog) 0 unit SUB-Q Q6HR [facility]; Protocol Last Admin: 04/17/19 11:25 Dose: 2 unit Documented by: Metoclopramide HCl (Reglan) 5 mg IV Q6H PRN PRN Reason: Nausea And Vomiting Last Admin: 04/17/19 06:26 Dose: 5 mg Documented by: Morphine Sulfate (Morphine) 2 mg IV Q4H PRN PRN Reason: Pain, Moderate (4-6) Ondansetron HCl (Zofran) 4 mg IV Q4H PRN PRN Reason: Nausea And Vomiting Last Admin: 04/17/19 11:17 Dose: 4 mg Documented by: Sodium Chloride (Sodium Chloride Flush Syringe 10 Ml) 10 ml IV BID [facility] Last Admin: 04/17/19 10:26 Dose: 10 ml Documented by: Sodium Chloride (Sodium Chloride Flush Syringe 10 Ml) 10 ml IV PRN PRN PRN Reason: LINE FLUSH Medication list reviewed and updated Review of Systems - Review of Systems All systems: negative (j) Eyes: deferred Cardiovascular: no chest pain Gastrointestinal: abdominal pain, nausea, vomiting Rectal: no pain Neurological: weakness Exam - Constitutional Vital Signs: Temp Pulse Resp BP Pulse Ox 98.3 F 93 H 16 173/97 99 04/17/19 06:19 04/17/19 08:08 04/17/19 08:08 04/17/19 08:08 04/17/19 10:19 General appearance: no acute distress - EENT Eyes: EOM intact ENT: hearing intact - Neck Neck: supple - Respiratory Respiratory effort: normal - Cardiovascular Rhythm: regular Heart Sounds: Present: S1 & S2 - Gastrointestinal General gastrointestinal: Present: soft, tender, non-distended, normal bowel sounds - Integumentary Integumentary: Present: warm, dry - Neurologic Neurological: alert and oriented x3 - Labs CBC & Chem 7: 04/17/19 12:46 04/17/19 12:46 Lab Results: Laboratory Results - last 24 hr 04/16/19 04/16/19 04/16/19 22:25 22:25 22:25 WBC 9.8 RBC 2.77 L Hgb 7.8 L Hct 22.8 L MCV 82 L MCH 28 MCHC 34 RDW 15.1 Plt Count 381 Lymph % (Auto) 15.1 [place] % (Auto) 7.7 H Eos % (Auto) 0.0 Baso % (Auto) 0.6 Lymph # 1.5 [place] # 0.8 Eos # 0.0 Baso # 0.1 Add Manual Diff Total Counted Seg Neutrophils % 76.6 H Seg Neuts % (Manual) Band Neutrophils % Lymphocytes % (Manual) Reactive Lymphs % (Man) Monocytes % (Manual) Eosinophils % (Manual) Basophils % (Manual) Metamyelocytes % Myelocytes % Promyelocytes % Blast Cells % Nucleated RBC % Seg Neutrophils # 7.5 Seg Neutrophils # Man Band Neutrophils # Lymphocytes # (Manual) Abs React Lymphs (Man) Monocytes # (Manual) Eosinophils # (Manual) Basophils # (Manual) Metamyelocytes # Myelocytes # Promyelocytes # Blast Cells # WBC Morphology Hypersegmented Neuts Hyposegmented Neuts Hypogranular Neuts Smudge Cells Toxic Granulation Toxic Vacuolation Dohle Bodies Pelger-Huet Anomaly Julio Cesar Rods Platelet Estimate Clumped Platelets Plt Clumps, EDTA Large Platelets Giant Platelets Platelet Satelliting Plt Morphology Comment RBC Morphology Dimorphic RBCs Polychromasia Hypochromasia Poikilocytosis Anisocytosis Microcytosis Macrocytosis Spherocytes Pappenheimer Bodies Sickle Cells Target Cells Tear Drop Cells Ovalocytes Helmet Cells Pak-[place] Bodies [place] Rings Olive Cells Bite Cells Crenated Cell Elliptocytes Acanthocytes (Spur) Rouleaux Hemoglobin C Crystals Schistocytes Malaria parasites David Bodies Hem Pathologist Commnt PT INR APTT Sodium 144 Potassium 4.4 Chloride 109.6 H Carbon Dioxide 20 L Anion Gap 19 BUN 50 H Creatinine 5.9 H Estimated GFR 14 BUN/Creatinine Ratio 8 Glucose 322 H POC Glucose Calcium 8.7 Total Bilirubin 0.20 Direct Bilirubin AST 14 ALT 12 Alkaline Phosphatase 56 Total Creatine Kinase CK-MB (CK-2) CK-MB (CK-2) Rel Index Troponin T Total Protein 5.1 L Albumin 2.3 L Albumin/Globulin Ratio 0.8 Triglycerides Cholesterol LDL Cholesterol Direct HDL Cholesterol Cholesterol/HDL Ratio Lipase 26 Urine Color Urine Turbidity Urine pH Ur Specific [place] Urine Protein Urine Glucose (UA) Urine Ketones Urine Blood Urine Nitrite Urine Bilirubin Urine Urobilinogen Ur Leukocyte Esterase Urine WBC (Auto) Urine RBC (Auto) U Epithel Cells (Auto) Urine Mucus Blood Type Antibody Screen Crossmatch 04/16/19 04/16/19 04/16/19 22:25 22:25 23:30 WBC RBC Hgb Hct MCV MCH MCHC RDW Plt Count Lymph % (Auto) [place] % (Auto) Eos % (Auto) Baso % (Auto) Lymph # [place] # Eos # Baso # Add Manual Diff Total Counted Seg Neutrophils % Seg Neuts % (Manual) Band Neutrophils % Lymphocytes % (Manual) Reactive Lymphs % (Man) Monocytes % (Manual) Eosinophils % (Manual) Basophils % (Manual) Metamyelocytes % Myelocytes % Promyelocytes % Blast Cells % Nucleated RBC % Seg Neutrophils # Seg Neutrophils # Man Band Neutrophils # Lymphocytes # (Manual) Abs React Lymphs (Man) Monocytes # (Manual) Eosinophils # (Manual) Basophils # (Manual) Metamyelocytes # Myelocytes # Promyelocytes # Blast Cells # WBC Morphology Hypersegmented Neuts Hyposegmented Neuts Hypogranular Neuts Smudge Cells Toxic Granulation Toxic Vacuolation Dohle Bodies Pelger-Huet Anomaly Julio Cesar Rods Platelet Estimate Clumped Platelets Plt Clumps, EDTA Large Platelets Giant Platelets Platelet Satelliting Plt Morphology Comment RBC Morphology Dimorphic RBCs Polychromasia Hypochromasia Poikilocytosis Anisocytosis Microcytosis Macrocytosis Spherocytes Pappenheimer Bodies Sickle Cells Target Cells Tear Drop Cells Ovalocytes Helmet Cells Pak-[place] Bodies [place] Rings Olive Cells Bite Cells Crenated Cell Elliptocytes Acanthocytes (Spur) Rouleaux Hemoglobin C Crystals Schistocytes Malaria parasites David Bodies Hem Pathologist Commnt PT 13.9 INR 1.01 APTT 28.0 Sodium Potassium Chloride Carbon Dioxide Anion Gap BUN Creatinine Estimated GFR BUN/Creatinine Ratio Glucose POC Glucose Calcium Total Bilirubin Direct Bilirubin AST ALT Alkaline Phosphatase Total Creatine Kinase Cancelled CK-MB (CK-2) Cancelled CK-MB (CK-2) Rel Index Cancelled Troponin T 0.166 H* Total Protein Albumin Albumin/Globulin Ratio Triglycerides 170 H Cholesterol 274 H LDL Cholesterol Direct 214 H HDL Cholesterol 50 Cholesterol/HDL Ratio 5.48 Lipase Urine Color Urine Turbidity Urine pH Ur Specific [place] Urine Protein Urine Glucose (UA) Urine Ketones Urine Blood Urine Nitrite Urine Bilirubin Urine Urobilinogen Ur Leukocyte Esterase Urine WBC (Auto) Urine RBC (Auto) U Epithel Cells (Auto) Urine Mucus Blood Type O POSITIVE Antibody Screen Negative Crossmatch See Detail 04/17/19 04/17/19 04/17/19 06:21 11:15 11:21 WBC RBC Hgb Hct MCV MCH MCHC RDW Plt Count Lymph % (Auto) [place] % (Auto) Eos % (Auto) Baso % (Auto) Lymph # [place] # Eos # Baso # Add Manual Diff Total Counted Seg Neutrophils % Seg Neuts % (Manual) Band Neutrophils % Lymphocytes % (Manual) Reactive Lymphs % (Man) Monocytes % (Manual) Eosinophils % (Manual) Basophils % (Manual) Metamyelocytes % Myelocytes % Promyelocytes % Blast Cells % Nucleated RBC % Seg Neutrophils # Seg Neutrophils # Man Band Neutrophils # Lymphocytes # (Manual) Abs React Lymphs (Man) Monocytes # (Manual) Eosinophils # (Manual) Basophils # (Manual) Metamyelocytes # Myelocytes # Promyelocytes # Blast Cells # WBC Morphology Hypersegmented Neuts Hyposegmented Neuts Hypogranular Neuts Smudge Cells Toxic Granulation Toxic Vacuolation Dohle Bodies Pelger-Huet Anomaly Julio Cesar Rods Platelet Estimate Clumped Platelets Plt Clumps, EDTA Large Platelets Giant Platelets Platelet Satelliting Plt Morphology Comment RBC Morphology Dimorphic RBCs Polychromasia Hypochromasia Poikilocytosis Anisocytosis Microcytosis Macrocytosis Spherocytes Pappenheimer Bodies Sickle Cells Target Cells Tear Drop Cells Ovalocytes Helmet Cells Pak-[place] Bodies [place] Rings [place] Cells Bite Cells Crenated Cell Elliptocytes Acanthocytes (Spur) Rouleaux Hemoglobin C Crystals Schistocytes Malaria parasites David Bodies Hem Pathologist Commnt PT INR APTT Sodium Potassium Chloride Carbon Dioxide Anion Gap BUN Creatinine Estimated GFR BUN/Creatinine Ratio Glucose POC Glucose 342 H 219 H Calcium Total Bilirubin Direct Bilirubin AST ALT Alkaline Phosphatase Total Creatine Kinase CK-MB (CK-2) CK-MB (CK-2) Rel Index Troponin T Total Protein Albumin Albumin/Globulin Ratio Triglycerides Cholesterol LDL Cholesterol Direct HDL Cholesterol Cholesterol/HDL Ratio Lipase Urine Color Yellow Urine Turbidity Clear Urine pH 7.0 Ur Specific [place] 1.017 Urine Protein >500 Urine Glucose (UA) >=500 Urine Ketones Neg Urine Blood Neg Urine Nitrite Neg Urine Bilirubin Neg Urine Urobilinogen < 2.0 Ur Leukocyte Esterase Neg Urine WBC (Auto) 3.0 Urine RBC (Auto) 2.0 U Epithel Cells (Auto) < 1.0 Urine Mucus Few Blood Type Antibody Screen Crossmatch 04/17/19 04/17/19 12:46 12:46 WBC 13.0 H RBC 3.05 L Hgb 8.5 L Hct 25.4 L MCV 83 L MCH 28 MCHC 33 RDW 15.3 H Plt Count 389 Lymph % (Auto) [place] % (Auto) Eos % (Auto) Baso % (Auto) Lymph # [place] # Eos # Baso # Add Manual Diff Complete Total Counted 100 Seg Neutrophils % Seg Neuts % (Manual) 83.0 H Band Neutrophils % 0 Lymphocytes % (Manual) 14.0 Reactive Lymphs % (Man) 0 Monocytes % (Manual) 2.0 Eosinophils % (Manual) 0 Basophils % (Manual) 0 Metamyelocytes % 0 Myelocytes % 1.0 Promyelocytes % 0 Blast Cells % 0 Nucleated RBC % Not Reportable Seg Neutrophils # Seg Neutrophils # Man 10.8 H Band Neutrophils # 0.0 Lymphocytes # (Manual) 1.8 Abs React Lymphs (Man) 0.0 Monocytes # (Manual) 0.3 Eosinophils # (Manual) 0.0 Basophils # (Manual) 0.0 Metamyelocytes # 0.0 Myelocytes # 0.1 Promyelocytes # 0.0 Blast Cells # 0.0 WBC Morphology Not Reportable Hypersegmented Neuts Not Reportable Hyposegmented Neuts Not Reportable Hypogranular Neuts Not Reportable Smudge Cells Not Reportable Toxic Granulation Not Reportable Toxic Vacuolation Not Reportable Dohle Bodies Not Reportable Pelger-Huet Anomaly Not Reportable Julio Cesar Rods Not Reportable Platelet Estimate Consistent w auto Clumped Platelets Not Reportable Plt Clumps, EDTA Not Reportable Large Platelets Not Reportable Giant Platelets Not Reportable Platelet Satelliting Not Reportable Plt Morphology Comment Not Reportable RBC Morphology Not Reportable Dimorphic RBCs Not Reportable Polychromasia Not Reportable Hypochromasia Not Reportable Poikilocytosis 1+ Anisocytosis 1+ Microcytosis Not Reportable Macrocytosis Not Reportable Spherocytes Not Reportable Pappenheimer Bodies Not Reportable Sickle Cells Not Reportable Target Cells Not Reportable Tear Drop Cells Not Reportable Ovalocytes Not Reportable Helmet Cells Not Reportable [place] Bodies Not Reportable [place] Rings Not Reportable Olive Cells Not Reportable Bite Cells Not Reportable Crenated Cell Not Reportable Elliptocytes Not Reportable Acanthocytes (Spur) Not Reportable Rouleaux Not Reportable Hemoglobin C Crystals Not Reportable Schistocytes Not Reportable Malaria parasites Not Reportable David Bodies Not Reportable Hem Pathologist Commnt No PT INR APTT Sodium 145 Potassium 4.0 Chloride 109.6 H Carbon Dioxide 21 L Anion Gap 18 BUN 50 H Creatinine 6.0 H Estimated GFR 13 BUN/Creatinine Ratio 8 Glucose 211 H POC Glucose Calcium 8.5 Total Bilirubin 0.30 Direct Bilirubin < 0.2 AST 13 ALT 11 Alkaline Phosphatase 56 Total Creatine Kinase CK-MB (CK-2) CK-MB (CK-2) Rel Index Troponin T 0.160 H* Total Protein 5.0 L Albumin 2.2 L Albumin/Globulin Ratio 0.8 Triglycerides Cholesterol LDL Cholesterol Direct HDL Cholesterol Cholesterol/HDL Ratio Lipase Urine Color Urine Turbidity Urine pH Ur Specific [place] Urine Protein Urine Glucose (UA) Urine Ketones Urine Blood Urine Nitrite Urine Bilirubin Urine Urobilinogen Ur Leukocyte Esterase Urine WBC (Auto) Urine RBC (Auto) U Epithel Cells (Auto) Urine Mucus Blood Type Antibody Screen Crossmatch Assessment and Plan # Nausea/vomiting/coffee ground emesis # Abdominal pain - persistent vomiting but no overt bleeding. Hgb responded to blood transfusion and at 8. - likely 2/2 possible gastroparesis and known ulcerative esophagitis. - recent EGD at [facility] 4 days ago per report but records not available at this time. - Previous EGD at [facility] twice in 10/2018 both showing severe esophagitis. Rec: - keep NPO given persistent vomiting. - continue with antiemetics with reglan. - add ativan prn for vomiting. - monitor H/H. - no plans for EGD. Patient has had EGD x 2 in 10/2018 and previously recent EGD at [facility] for similar symptoms. - recommend CT abdomen/pelvis for evaluation of diffuse abdominal pain. - will follow. - Patient Problems (1) Intractable nausea and vomiting Current Visit: No Status: Acute Qualifiers: Vomiting type: unspecified Qualified Code(s): R11.2 - Nausea with vomiting, unspecified (2) Ulcerative esophagitis Current Visit: No Status: Acute
[2019-04-17] MEDS: APRESOLINE IV PRN (19:52)
[2019-04-18] MEDS: APRESOLINE IV PRN ×5 (00:15→21:15)
[2019-04-18 05:34] LABS: Hematocrit 21.4 % (35.5-45.6); Hemoglobin 7.1 gm/dl (11.8-15.2); Mean Corpuscular HGB Conc 33 % (32-34); Mean Corpuscular Volume 84 fl (84-94); Platelet Count 302 K/mm3 (140-440); Red Blood Count 2.53 M/mm3 (3.65-5.03); Red Cell Distribution Width 15.9 % (13.2-15.2)
[2019-04-18 05:59] LABS: Calcium 8.1 mg/dL (8.4-10.2)
[2019-04-18] MEDS ORDERED: NACL 0.9% 500 ML 500 ML IV ONE (09:00)
[2019-04-18] MEDS: HumaLOG SUB-Q SCH ×4 (09:06→18:06)
--- NOTE | 2019-04-18 09:51 | Cat Scan Report ---
PROCEDURE: CT ABDOMEN PELVIS WO CON TECHNIQUE: Axial images obtained from pelvis without intravenous contrast. Sagittal and coronal refo rmatted images obtained. HISTORY: abdominal pain COMPARISONS: Abdominal pelvic CT October 19, 2018 FINDINGS: There is generalized subcutaneous edema which is increased compared to prior study. There are small bilateral pleural effusions increased compared to prior study Bibasilar airspace disease compatible with atelectasis Low volume ascites which is increased compared to prior study Small hypodense focus right lobe of liver unchanged from prior study compatible with cyst. Liver othe rwise unremarkable noncontrast appearance Normal size spleen Inflammatory change and fluid surrounding the pancreas are improved compared to prior study. Pancreas demonstrates no ductal dilatation. Adrenal glands unremarkable Nonspecific perinephric stranding. No renal calculus. No hydronephrosis. No ureteral calculus. Bladde r unremarkable. Aorta normal caliber. Note is made the cardiac blood pool is hypodense compatible with anemia. No retroperitoneal adenopathy No bowel obstruction. No diverticulosis. No diverticulitis. Status post appendectomy. Omentum and mes entery are otherwise unremarkable. The gastric wall is thickened and edematous. No acute bony abnormality IMPRESSION: Increase in subcutaneous edema. Increase in bilateral effusion. Mild increase in ascites. Findings atkins ggest anasarca Thickened and edematous gastric wall compatible with gastritis Hypodense blood pool compatible with anemia No free air. No bowel obstruction No hydronephrosis. This document is electronically signed by Wilner Benítez MD., April 18 2019 09:49:47 AM ET
[2019-04-18] MEDS ORDERED: CATAPRES-TTS PATCH TD SCH (10:00)
[2019-04-18] MEDS: LOPRESSOR IV SCH ×3 (10:36→17:46)
[2019-04-18] MEDS: SODIUM CHLORIDE FLUSH SYRINGE 10 ML IV SCH ×2 (10:37→21:20)
--- NOTE | 2019-04-18 12:16 | Progress Note ---
Assessment and Plan Assessment and plan: Upper GI bleed gregorio hematemesis Admitted to Telemetry protonix iv GI following Monitor H/H Transfused PRBC Acute on CKD Neohrology following iv fluids Diabetes mellitus type 2 Accucheck q ac and hs Hypertensive urgency Clonidine patch Hyydralazine iv prn Full code status History Interval history: Vomiting blood shortness of breath Hospitalist Physical - Physical exam Narrative exam: Gen: Not in acute distress, lying in bed, morbidly obese HEENT: Normocephalic, atraumatic Neck: supple, no JVD Heart: S1 and S2 reg, no murmurs, rubs or gallop Lungs: Clear, no crackles, no wheeze Abd: soft, non tender, non distended, normal BS Ext: No edema, no clubbing, no cyanosis, Neuro: Awake,alert, oriented x 3, moves all ext, non focal Psych:Normal mood - Constitutional Vitals: Temp Pulse Resp BP Pulse Ox 98.3 F 103 H 16 212/112 99 04/18/19 08:44 04/18/19 08:44 04/18/19 08:44 04/18/19 08:44 04/18/19 08:44 Results - Labs CBC & Chem 7: 04/19/19 Unknown 04/19/19 Unknown Labs: Laboratory Last Values WBC 9.9 K/mm3 (4.5-11.0) 04/18/19 04:51 RBC 2.53 M/mm3 (3.65-5.03) L 04/18/19 04:51 Hgb 7.1 gm/dl (11.8-15.2) L 04/18/19 04:51 Hct 21.4 % (35.5-45.6) L 04/18/19 04:51 MCV 84 fl (84-94) 04/18/19 04:51 MCH 28 pg (28-32) 04/18/19 04:51 MCHC 33 % (32-34) 04/18/19 04:51 RDW 15.9 % (13.2-15.2) H 04/18/19 04:51 Plt Count 302 K/mm3 (140-440) 04/18/19 04:51 Lymph % (Auto) 15.1 % (13.4-35.0) 04/16/19 22:25 [place] % (Auto) 7.7 % (0.0-7.3) H 04/16/19 22:25 Eos % (Auto) 0.0 % (0.0-4.3) 04/16/19 22:25 Baso % (Auto) 0.6 % (0.0-1.8) 04/16/19 22:25 Lymph # 1.5 K/mm3 (1.2-5.4) 04/16/19 22:25 [place] # 0.8 K/mm3 (0.0-0.8) 04/16/19 22:25 Eos # 0.0 K/mm3 (0.0-0.4) 04/16/19 22:25 Baso # 0.1 K/mm3 (0.0-0.1) 04/16/19 22:25 Add Manual Diff Complete 04/17/19 12:46 Total Counted 100 04/17/19 12:46 Seg Neutrophils % 76.6 % (40.0-70.0) H 04/16/19 22:25 Seg Neuts % (Manual) 83.0 % (40.0-70.0) H 04/17/19 12:46 0 % 04/17/19 12:46 14.0 % (13.4-35.0) 04/17/19 12:46 Reactive Lymphs % (Man) 0 % 04/17/19 12:46 2.0 % (0.0-7.3) 04/17/19 12:46 0 % (0.0-4.3) 04/17/19 12:46 0 % (0.0-1.8) 04/17/19 12:46 0 % 04/17/19 12:46 1.0 % 04/17/19 12:46 0 % 04/17/19 12:46 0 % 04/17/19 12:46 Nucleated RBC % Not Reportable 04/17/19 12:46 Seg Neutrophils # 7.5 K/mm3 (1.8-7.7) 04/16/19 22:25 Seg Neutrophils # Man 10.8 K/mm3 (1.8-7.7) H 04/17/19 12:46 Band Neutrophils # 0.0 K/mm3 04/17/19 12:46 1.8 K/mm3 (1.2-5.4) 04/17/19 12:46 Abs React Lymphs (Man) 0.0 K/mm3 04/17/19 12:46 0.3 K/mm3 (0.0-0.8) 04/17/19 12:46 0.0 K/mm3 (0.0-0.4) 04/17/19 12:46 0.0 K/mm3 (0.0-0.1) 04/17/19 12:46 0.0 K/mm3 04/17/19 12:46 0.1 K/mm3 04/17/19 12:46 0.0 K/mm3 04/17/19 12:46 Blast Cells # 0.0 K/mm3 04/17/19 12:46 WBC Morphology Not Reportable 04/17/19 12:46 Hypersegmented Neuts Not Reportable 04/17/19 12:46 Hyposegmented Neuts Not Reportable 04/17/19 12:46 Hypogranular Neuts Not Reportable 04/17/19 12:46 Not Reportable 04/17/19 12:46 Not Reportable 04/17/19 12:46 Not Reportable 04/17/19 12:46 Not Reportable 04/17/19 12:46 Not Reportable 04/17/19 12:46 Not Reportable 04/17/19 12:46 Consistent w auto 04/17/19 12:46 Not Reportable 04/17/19 12:46 Plt Clumps, EDTA Not Reportable 04/17/19 12:46 Not Reportable 04/17/19 12:46 Not Reportable 04/17/19 12:46 Not Reportable 04/17/19 12:46 Plt Morphology Comment Not Reportable 04/17/19 12:46 RBC Morphology Not Reportable 04/17/19 12:46 Dimorphic RBCs Not Reportable 04/17/19 12:46 Not Reportable 04/17/19 12:46 Not Reportable 04/17/19 12:46 1+ 04/17/19 12:46 1+ 04/17/19 12:46 Not Reportable 04/17/19 12:46 Not Reportable 04/17/19 12:46 Not Reportable 04/17/19 12:46 Not Reportable 04/17/19 12:46 Not Reportable 04/17/19 12:46 Not Reportable 04/17/19 12:46 Not Reportable 04/17/19 12:46 Not Reportable 04/17/19 12:46 Not Reportable 04/17/19 12:46 Not Reportable 04/17/19 12:46 Not Reportable 04/17/19 12:46 Not Reportable 04/17/19 12:46 Not Reportable 04/17/19 12:46 Not Reportable 04/17/19 12:46 Not Reportable 04/17/19 12:46 Acanthocytes (Spur) Not Reportable 04/17/19 12:46 Rouleaux Not Reportable 04/17/19 12:46 Not Reportable 04/17/19 12:46 Not Reportable 04/17/19 12:46 Not Reportable 04/17/19 12:46 Not Reportable 04/17/19 12:46 Hem Pathologist Commnt No 04/17/19 12:46 PT 13.9 Sec. (12.2-14.9) 04/16/19 22:25 INR 1.01 (0.87-1.13) 04/16/19 22:25 APTT 28.0 Sec. (24.2-36.6) 04/16/19 22:25 Sodium 145 mmol/L (137-145) 04/18/19 04:51 Potassium 4.4 mmol/L (3.6-5.0) 04/18/19 04:51 Chloride 115.4 mmol/L (98-107) H 04/18/19 04:51 Carbon Dioxide 22 mmol/L (22-30) 04/18/19 04:51 12 mmol/L 04/18/19 04:51 BUN 48 mg/dL (9-20) H 04/18/19 04:51 5.9 mg/dL (0.8-1.5) H 04/18/19 04:51 Estimated GFR 14 ml/min 04/18/19 04:51 8 % 04/18/19 04:51 Glucose 190 mg/dL (75-100) H 04/18/19 04:51 POC Glucose 201 (70-105) H 04/18/19 11:36 Calcium 8.1 mg/dL (8.4-10.2) L 04/18/19 04:51 0.30 mg/dL (0.1-1.2) 04/17/19 12:46 < 0.2 mg/dL (0-0.2) 04/17/19 12:46 AST 13 units/L (5-40) 04/17/19 12:46 ALT 11 units/L (7-56) 04/17/19 12:46 56 units/L (35-129) 04/17/19 12:46 Cancelled 04/16/19 22:25 CK-MB (CK-2) Cancelled 04/16/19 22:25 CK-MB (CK-2) Rel Index Cancelled 04/16/19 22:25 0.160 ng/mL (0.00-0.029) H* 04/17/19 12:46 5.0 g/dL (6.3-8.2) L 04/17/19 12:46 2.2 g/dL (3.9-5) L 04/17/19 12:46 0.8 % 04/17/19 12:46 Triglycerides 170 mg/dL (2-149) H 04/16/19 22:25 Cholesterol 274 mg/dL (50-199) H 04/16/19 22:25 214 mg/dL (50-130) H 04/16/19 22:25 50 mg/dL (40-59) 04/16/19 22:25 5.48 % 04/16/19 22:25 26 units/L (13-60) 04/16/19 22:25 Yellow (Yellow) 04/17/19 11:15 Clear (Clear) 04/17/19 11:15 7.0 (5.0-7.0) 04/17/19 11:15 Ur Specific [place] 1.017 (1.003-1.030) 04/17/19 11:15 >500 mg/dL (Negative) 04/17/19 11:15 >=500 mg/dL (Negative) 04/17/19 11:15 Neg mg/dL (Negative) 04/17/19 11:15 Neg (Negative) 04/17/19 11:15 Neg (Negative) 04/17/19 11:15 Neg (Negative) 04/17/19 11:15 < 2.0 mg/dL (<2.0) 04/17/19 11:15 Ur Leukocyte Esterase Neg (Negative) 06/07/19 11:15 3.0 /HPF (0.0-6.0) 04/17/19 11:15 2.0 /HPF (0.0-6.0) 04/17/19 11:15 U Epithel Cells (Auto) < 1.0 /HPF (0-13.0) 04/17/19 11:15 Few /HPF 04/17/19 11:15 Blood Type O POSITIVE 04/16/19 23:30 Antibody Screen Negative 04/16/19 23:30 Crossmatch See Detail 04/16/19 23:30 Active Medications - Current Medications Current Medications: Generic Name Dose Route Start Last Admin Trade Name Freq PRN Reason Stop Dose Admin Acetaminophen 650 mg 04/17/19 04:19 Tylenol PO Q4H PRN Pain MILD(1-3)/Fever >100.5/LANZA Clonidine HCl 0.3 mg 04/18/19 10:00 Catapres-Tts Patch TD QWEEK KESHIA Dextrose 50 ml 04/17/19 01:30 D50w (25gm) Syringe IV PRN PRN Hypoglycemia Hydralazine HCl 20 mg 04/17/19 17:35 04/18/19 09:06 Apresoline IV 20 mg Q4HR PRN Administration SBP>170 or DBP>110 Pantoprazole Sodium 80 mg/ 100 mls @ 10 mls/hr 04/16/19 23:45 04/17/19 19:53 Sodium Chloride IV 8 mg/hr DIRECT KESHIA 10 mls/hr Administration 8 MG/HR Sodium Chloride 1,000 mls @ 75 mls/hr 04/17/19 02:00 04/17/19 11:28 Nacl 0.45% 1000 Ml IV 75 mls/hr DIRECT KESHIA Administration Insulin Human Lispro 0 unit 04/17/19 06:00 04/18/19 09:06 Humalog SUB-Q Not Given Q6HR KESHIA Protocol Lorazepam 1 mg 04/17/19 16:37 04/17/19 17:09 Ativan IV 1 mg Q6HR PRN Administration Vomiting Metoclopramide HCl 5 mg 04/17/19 01:41 04/17/19 17:09 Reglan IV 5 mg Q6H PRN Administration Nausea And Vomiting Metoprolol Tartrate 5 mg 04/18/19 09:20 04/18/19 10:36 Lopressor IV 5 mg Q6HR KESHIA Administration Morphine Sulfate 2 mg 04/17/19 04:19 Morphine IV Q4H PRN Pain, Moderate (4-6) Ondansetron HCl 4 mg 04/17/19 04:19 04/17/19 22:43 Zofran IV 4 mg Q4H PRN Administration Nausea And Vomiting Sodium Chloride 10 ml 04/17/19 10:00 04/18/19 10:37 Sodium Chloride Flush Syringe 10 Ml IV 10 ml BID KESHIA Administration Sodium Chloride 10 ml 04/17/19 04:19 Sodium Chloride Flush Syringe 10 Ml IV PRN PRN LINE FLUSH
[2019-04-18] MEDS: PROTONIX 80 MG in NACL 0.9% 100 ML IV SCH (13:07)
--- NOTE | 2019-04-18 13:44 | XRay Report ---
EXAM: XR CHEST 1V AP HISTORY: PICC LINE PLACEMENT TECHNIQUE: Portable CXR dated 04/18/2019 at 1:24 PM. COMPARISON: None available. FINDINGS: There is a left upper extremity PICC line with the distal tip in the expected location of the distal SVC (adequate position). Recommend careful clinical correlation to ensure venous blood return. There is evidence for cardiomegaly. The pulmonary vascularity and interstitial markings are diffusely prominent, consistent with CHF or volume overload in the appropriate clinical setting. There is no gross focal lung consolidation, pleural effusion, or pneumothorax seen. The visualized karthik ny structures are within normal limits. IMPRESSION: 1. Findings consistent with mild CHF or volume overload in the appropriate clinical setting. Recomme nd clinical correlation and appropriate follow-up evaluation to ensure complete clearance. 2. Left upper extremity PICC line with the distal tip in the expected location of the distal SVC (ad equate position). Recommend careful clinical correlation to ensure venous blood return. This document is electronically signed by Stephanie Kaplan MD., April 18 2019 01:42:52 PM ET
[2019-04-18] MEDS: NACL 0.45% 1000 ML 1,000 ML IV SCH (17:43)
--- NOTE | 2019-04-18 18:54 | Progress Note ---
Assessment and Plan Impression: * Acute kidney injury secondary to volume depletion on Stage III CKD * Coffee ground emesis r/o UGIB * Diabetic gastroparesis * Type I DM * Accelerated HTN * Anemia Plan: * Renal prognosis is guarded - may require initiation of renal replacement therapy if renal function fails to improve * GI recommendations reviewed * Glycemic control per primary team * Continue antiHTN medications * pRBC transfusion in progress * Avoid potential nephrotoxic agents * Dose medications for renal function * Strict I/O * AM labs Subjective Date of service: 04/18/19 Interval history: Patient more communicative today. He has no complaints - states that he is feeling better. Objective - Vital Signs Vital signs: Vital Signs - 12hr 04/18/19 04/18/19 04/18/19 08:44 11:29 13:40 Temperature 98.3 F 98.6 F Pulse Rate 103 H 88 Respiratory 16 16 18 Rate Blood Pressure 212/112 187/103 187/106 O2 Sat by Pulse 99 99 Oximetry 04/18/19 04/18/19 04/18/19 13:53 14:28 14:30 Temperature Pulse Rate Respiratory 18 18 Rate Blood Pressure 183/101 165/105 O2 Sat by Pulse Oximetry 04/18/19 04/18/19 04/18/19 16:09 16:44 17:46 Temperature 98.3 F Pulse Rate Respiratory 18 14 Rate Blood Pressure 205/113 181/95 171/109 O2 Sat by Pulse Oximetry 04/18/19 04/18/19 17:47 18:37 Temperature Pulse Rate Respiratory 18 18 Rate Blood Pressure 150/93 O2 Sat by Pulse Oximetry - General Appearance General appearance: well-developed, well-nourished EENT: ATNC Respiratory: Present: Clear to Ascultation Cardiology: regular, S1S2 Gastrointestinal: normal, no tenderness, no distended Integumentary: no rash, warm and dry Neurologic: alert and oriented x3 Musculoskeletal: other (no edema) Psychiatric: cooperative - Lab 04/18/19 04:51 04/18/19 04:51 Most recent lab results Calcium 8.1 mg/dL (8.4-10.2) L 04/18/19 04:51 Medications & Allergies - Medications Allergies/Adverse Reactions: Allergies No Known Allergies Allergy (Verified 11/21/18 17:51) Home Medications: Home Medications Medication Instructions Recorded Confirmed Last Taken Type Hydralazine HCl 50 mg PO TID 30 Days #90 tablet 11/23/18 04/17/19 Unknown Rx Insulin NPH/Regular [Novolin 70/30] 7 unit SQ BIDDIAB #1 vial 11/26/18 04/17/19 Unknown Rx Insulin Regular, Human [Novolin R] 1 dose SQ ACHS PRN #1 vial 11/26/18 04/17/19 Unknown Rx Active Medications: Generic Name Dose Route Start Last Admin Trade Name Edmundo PRN Reason Stop Dose Admin Acetaminophen 650 mg 04/17/19 04:19 Tylenol PO Q4H PRN Pain MILD(1-3)/Fever >100.5/LANZA Clonidine HCl 0.3 mg 04/18/19 10:00 04/18/19 13:08 Catapres-Tts Patch TD 0.3 mg QWEEK KESHIA Administration Dextrose 50 ml 04/17/19 01:30 D50w (25gm) Syringe IV PRN PRN Hypoglycemia Hydralazine HCl 20 mg 04/17/19 17:35 04/18/19 16:11 Apresoline IV 20 mg Q4HR PRN Administration SBP>170 or DBP>110 Pantoprazole Sodium 80 mg/ 100 mls @ 10 mls/hr 04/16/19 23:45 04/18/19 13:07 Sodium Chloride IV 8 mg/hr DIRECT KESHIA 10 mls/hr Administration 8 MG/HR Sodium Chloride 1,000 mls @ 75 mls/hr 04/17/19 02:00 04/18/19 17:43 Nacl 0.45% 1000 Ml IV 75 mls/hr DIRECT KESHIA Administration Insulin Human Lispro 0 unit 04/17/19 06:00 04/18/19 18:06 Humalog SUB-Q 2 unit Q6HR KESHIA Administration Protocol Lorazepam 1 mg 04/17/19 16:37 04/17/19 17:09 Ativan IV 1 mg Q6HR PRN Administration Vomiting Metoclopramide HCl 5 mg 04/17/19 01:41 04/17/19 17:09 Reglan IV 5 mg Q6H PRN Administration Nausea And Vomiting Metoprolol Tartrate 5 mg 04/18/19 09:20 04/18/19 17:46 Lopressor IV 5 mg Q6HR KESHIA Administration Morphine Sulfate 2 mg 04/17/19 04:19 Morphine IV Q4H PRN Pain, Moderate (4-6) Ondansetron HCl 4 mg 04/17/19 04:19 04/17/19 22:43 Zofran IV 4 mg Q4H PRN Administration Nausea And Vomiting Sodium Chloride 10 ml 04/17/19 10:00 04/18/19 10:37 Sodium Chloride Flush Syringe 10 Ml IV 10 ml BID KESHIA Administration Sodium Chloride 10 ml 04/17/19 04:19 Sodium Chloride Flush Syringe 10 Ml IV PRN PRN LINE FLUSH
[2019-04-19] MEDS: HumaLOG SUB-Q SCH ×4 (00:24→17:59)
[2019-04-19] MEDS: LOPRESSOR IV SCH ×4 (00:24→17:59)
[2019-04-19] MEDS: PROTONIX 80 MG in NACL 0.9% 100 ML IV SCH ×2 (05:39→13:38)
[2019-04-19] MEDS: APRESOLINE IV PRN (08:04)
[2019-04-19] MEDS: SODIUM CHLORIDE FLUSH SYRINGE 10 ML IV SCH ×2 (09:18→21:49)
[2019-04-19 09:23] LABS: Hematocrit 29.2 % (35.5-45.6); Mean Corpuscular HGB Conc 34 % (32-34); Mean Corpuscular Volume 83 fl (84-94); Platelet Count 323 K/mm3 (140-440); Red Blood Count 3.51 M/mm3 (3.65-5.03); Red Cell Distribution Width 15.7 % (13.2-15.2)
[2019-04-19 09:37] LABS: Calcium 7.8 mg/dL (8.4-10.2)
[2019-04-19] MEDS: NACL 0.45% 1000 ML 1,000 ML IV SCH (11:30)
--- NOTE | 2019-04-19 14:36 | Progress Note ---
Assessment and Plan Impression: * Acute kidney injury secondary to volume depletion on Stage III CKD vs progression of CKD to ESRD * Coffee ground emesis r/o UGIB * Diabetic gastroparesis * Type I DM * Accelerated HTN * Anemia s/p pRBC transfusion Plan: * Renal prognosis is guarded - has failed to improve with conservative management; potential need for dialysis discussed with patient * Will start 24h urine CrCl * CT reviewed; will order renal u/s to assess echogenicity/size * Tolerating po; continue clonidine patch; will resume hydralazine (home med), will also add amlodipine * GI recommendations reviewed * Glycemic control per primary team * Avoid potential nephrotoxic agents * Dose medications for renal function * Strict I/O * AM labs Subjective Date of service: 04/19/19 Interval history: Patient denies vomiting. He has no complaints today. Objective - Vital Signs Vital signs: Vital Signs - 12hr 04/19/19 04/19/19 04/19/19 05:36 05:38 07:41 Temperature 98.1 F 98.3 F Pulse Rate 70 70 69 Pulse Rate [ From Monitor] Respiratory 18 18 Rate Blood Pressure 183/91 192/102 Blood Pressure 183/91 [Left] O2 Sat by Pulse 98 98 Oximetry 04/19/19 04/19/19 04/19/19 08:04 10:00 12:25 Temperature 98.3 F Pulse Rate 67 67 68 Pulse Rate [ 69 From Monitor] Respiratory 18 16 Rate Blood Pressure 192/102 171/96 Blood Pressure [Left] O2 Sat by Pulse 98 97 Oximetry - General Appearance General appearance: well-developed, well-nourished EENT: ATNC Respiratory: Present: Clear to Ascultation Cardiology: regular, S1S2 Gastrointestinal: normal, no tenderness, no distended Musculoskeletal: other (no edema) Psychiatric: cooperative - Lab 04/19/19 Unknown 04/19/19 Unknown Most recent lab results Calcium 7.8 mg/dL (8.4-10.2) L 04/19/19 Unknown Medications & Allergies - Medications Allergies/Adverse Reactions: Allergies No Known Allergies Allergy (Verified 11/21/18 17:51) Home Medications: Home Medications Medication Instructions Recorded Confirmed Last Taken Type Hydralazine HCl 50 mg PO TID 30 Days #90 tablet 11/23/18 04/17/19 Unknown Rx Insulin NPH/Regular [Novolin 70/30] 7 unit SQ BIDDIAB #1 vial 11/26/18 04/17/19 Unknown Rx Insulin Regular, Human [Novolin R] 1 dose SQ ACHS PRN #1 vial 11/26/18 04/17/19 Unknown Rx Active Medications: Generic Name Dose Route Start Last Admin Trade Name Freq PRN Reason Stop Dose Admin Acetaminophen 650 mg 04/17/19 04:19 Tylenol PO Q4H PRN Pain MILD(1-3)/Fever >100.5/LANZA Clonidine HCl 0.3 mg 04/18/19 10:00 04/18/19 13:08 Catapres-Tts Patch TD 0.3 mg QWEEK KESHIA Administration Dextrose 50 ml 04/17/19 01:30 D50w (25gm) Syringe IV PRN PRN Hypoglycemia Hydralazine HCl 20 mg 04/17/19 17:35 04/19/19 08:04 Apresoline IV 20 mg Q4HR PRN Administration SBP>170 or DBP>110 Pantoprazole Sodium 80 mg/ 100 mls @ 10 mls/hr 04/16/19 23:45 04/19/19 13:38 Sodium Chloride IV 8 mg/hr DIRECT KESHIA 10 mls/hr Administration 8 MG/HR Sodium Chloride 1,000 mls @ 75 mls/hr 04/17/19 02:00 04/19/19 11:30 Nacl 0.45% 1000 Ml IV 75 mls/hr DIRECT KESHIA Administration Insulin Human Lispro 0 unit 04/17/19 06:00 04/19/19 13:16 Humalog SUB-Q 2 unit Q6HR KESHIA Administration Protocol Lorazepam 1 mg 04/17/19 16:37 04/17/19 17:09 Ativan IV 1 mg Q6HR PRN Administration Vomiting Metoclopramide HCl 5 mg 04/17/19 01:41 04/17/19 17:09 Reglan IV 5 mg Q6H PRN Administration Nausea And Vomiting Metoprolol Tartrate 5 mg 04/18/19 09:20 04/19/19 13:17 Lopressor IV 5 mg Q6HR KESHIA Administration Morphine Sulfate 2 mg 04/17/19 04:19 Morphine IV Q4H PRN Pain, Moderate (4-6) Ondansetron HCl 4 mg 04/17/19 04:19 04/17/19 22:43 Zofran IV 4 mg Q4H PRN Administration Nausea And Vomiting Sodium Chloride 10 ml 04/17/19 10:00 04/19/19 09:18 Sodium Chloride Flush Syringe 10 Ml IV 10 ml BID KESHIA Administration Sodium Chloride 10 ml 04/17/19 04:19 Sodium Chloride Flush Syringe 10 Ml IV PRN PRN LINE FLUSH
--- NOTE | 2019-04-19 14:57 | Progress Note ---
Assessment and Plan Assessment and plan: Upper GI bleed with hematemesis Subsided Admitted to Telemetry protonix iv GI following Monitor H/H Transfused PRBC Acute on CKD Nephrology following iv fluids Cr improving, trending downwards Diabetes mellitus type 2 Accucheck q ac and hs Hypertensive urgency Clonidine patch Hyydralazine iv prn Full code status History Interval history: No more vomiting blood Asking about more food Hospitalist Physical - Physical exam Narrative exam: Gen: Not in acute distress, lying in bed, morbidly obese HEENT: Normocephalic, atraumatic Neck: supple, no JVD Heart: S1 and S2 reg, no murmurs, rubs or gallop Lungs: Clear, no crackles, no wheeze Abd: soft, non tender, non distended, normal BS Ext: No edema, no clubbing, no cyanosis, Neuro: Awake,alert, oriented x 3, moves all ext, non focal Psych:Normal mood - Constitutional Vitals: Temp Pulse Resp BP Pulse Ox 98.3 F 68 16 171/96 97 04/19/19 12:25 04/19/19 12:25 04/19/19 12:25 04/19/19 12:25 04/19/19 12:25 Results - Labs CBC & Chem 7: 04/19/19 Unknown 04/19/19 Unknown Labs: Laboratory Last Values WBC 8.0 K/mm3 (4.5-11.0) 04/19/19 Unknown RBC 3.51 M/mm3 (3.65-5.03) L 04/19/19 Unknown Hgb 10.0 gm/dl (11.8-15.2) L 04/19/19 Unknown Hct 29.2 % (35.5-45.6) L D 04/19/19 Unknown MCV 83 fl (84-94) L 04/19/19 Unknown MCH 29 pg (28-32) 04/19/19 Unknown MCHC 34 % (32-34) 04/19/19 Unknown RDW 15.7 % (13.2-15.2) H 04/19/19 Unknown Plt Count 323 K/mm3 (140-440) 04/19/19 Unknown Lymph % (Auto) 15.1 % (13.4-35.0) 04/16/19 22:25 [place] % (Auto) 7.7 % (0.0-7.3) H 04/16/19 22:25 Eos % (Auto) 0.0 % (0.0-4.3) 04/16/19 22:25 Baso % (Auto) 0.6 % (0.0-1.8) 04/16/19 22:25 Lymph # 1.5 K/mm3 (1.2-5.4) 04/16/19 22:25 [place] # 0.8 K/mm3 (0.0-0.8) 04/16/19 22:25 Eos # 0.0 K/mm3 (0.0-0.4) 04/16/19 22:25 Baso # 0.1 K/mm3 (0.0-0.1) 04/16/19 22:25 Add Manual Diff Complete 04/17/19 12:46 Total Counted 100 04/17/19 12:46 Seg Neutrophils % 76.6 % (40.0-70.0) H 04/16/19 22:25 Seg Neuts % (Manual) 83.0 % (40.0-70.0) H 04/17/19 12:46 0 % 04/17/19 12:46 14.0 % (13.4-35.0) 04/17/19 12:46 Reactive Lymphs % (Man) 0 % 04/17/19 12:46 2.0 % (0.0-7.3) 04/17/19 12:46 0 % (0.0-4.3) 04/17/19 12:46 0 % (0.0-1.8) 04/17/19 12:46 0 % 04/17/19 12:46 1.0 % 04/17/19 12:46 0 % 04/17/19 12:46 0 % 04/17/19 12:46 Nucleated RBC % Not Reportable 04/17/19 12:46 Seg Neutrophils # 7.5 K/mm3 (1.8-7.7) 04/16/19 22:25 Seg Neutrophils # Man 10.8 K/mm3 (1.8-7.7) H 04/17/19 12:46 Band Neutrophils # 0.0 K/mm3 04/17/19 12:46 1.8 K/mm3 (1.2-5.4) 04/17/19 12:46 Abs React Lymphs (Man) 0.0 K/mm3 04/17/19 12:46 0.3 K/mm3 (0.0-0.8) 04/17/19 12:46 0.0 K/mm3 (0.0-0.4) 04/17/19 12:46 0.0 K/mm3 (0.0-0.1) 04/17/19 12:46 0.0 K/mm3 04/17/19 12:46 0.1 K/mm3 04/17/19 12:46 0.0 K/mm3 04/17/19 12:46 Blast Cells # 0.0 K/mm3 04/17/19 12:46 WBC Morphology Not Reportable 04/17/19 12:46 Hypersegmented Neuts Not Reportable 04/17/19 12:46 Hyposegmented Neuts Not Reportable 04/17/19 12:46 Hypogranular Neuts Not Reportable 04/17/19 12:46 Not Reportable 04/17/19 12:46 Not Reportable 04/17/19 12:46 Not Reportable 04/17/19 12:46 Not Reportable 04/17/19 12:46 Not Reportable 04/17/19 12:46 Not Reportable 04/17/19 12:46 Consistent w auto 04/17/19 12:46 Not Reportable 04/17/19 12:46 Plt Clumps, EDTA Not Reportable 04/17/19 12:46 Not Reportable 04/17/19 12:46 Not Reportable 04/17/19 12:46 Not Reportable 04/17/19 12:46 Plt Morphology Comment Not Reportable 04/17/19 12:46 RBC Morphology Not Reportable 04/17/19 12:46 Dimorphic RBCs Not Reportable 04/17/19 12:46 Not Reportable 04/17/19 12:46 Not Reportable 04/17/19 12:46 1+ 04/17/19 12:46 1+ 04/17/19 12:46 Not Reportable 04/17/19 12:46 Not Reportable 04/17/19 12:46 Not Reportable 04/17/19 12:46 Not Reportable 04/17/19 12:46 Not Reportable 04/17/19 12:46 Not Reportable 04/17/19 12:46 Not Reportable 04/17/19 12:46 Not Reportable 04/17/19 12:46 Not Reportable 04/17/19 12:46 Not Reportable 04/17/19 12:46 Not Reportable 04/17/19 12:46 Not Reportable 04/17/19 12:46 Not Reportable 04/17/19 12:46 Not Reportable 04/17/19 12:46 Not Reportable 04/17/19 12:46 Acanthocytes (Spur) Not Reportable 04/17/19 12:46 Rouleaux Not Reportable 04/17/19 12:46 Not Reportable 04/17/19 12:46 Not Reportable 04/17/19 12:46 Not Reportable 04/17/19 12:46 Not Reportable 04/17/19 12:46 Hem Pathologist Commnt No 04/17/19 12:46 PT 13.9 Sec. (12.2-14.9) 04/16/19 22:25 INR 1.01 (0.87-1.13) 04/16/19 22:25 APTT 28.0 Sec. (24.2-36.6) 04/16/19 22:25 Sodium 136 mmol/L (137-145) L D 04/19/19 Unknown Potassium 3.8 mmol/L (3.6-5.0) 04/19/19 Unknown Chloride 102.9 mmol/L (98-107) 04/19/19 Unknown Carbon Dioxide 22 mmol/L (22-30) 04/19/19 Unknown 15 mmol/L 04/19/19 Unknown BUN 40 mg/dL (9-20) H 04/19/19 Unknown 5.3 mg/dL (0.8-1.5) H 04/19/19 Unknown Estimated GFR 15 ml/min 04/19/19 Unknown 8 % 04/19/19 Unknown Glucose 213 mg/dL (75-100) H 04/19/19 Unknown POC Glucose 216 (70-105) H 04/19/19 12:28 Calcium 7.8 mg/dL (8.4-10.2) L 04/19/19 Unknown 0.30 mg/dL (0.1-1.2) 04/17/19 12:46 < 0.2 mg/dL (0-0.2) 04/17/19 12:46 AST 13 units/L (5-40) 04/17/19 12:46 ALT 11 units/L (7-56) 04/17/19 12:46 56 units/L (35-129) 04/17/19 12:46 Cancelled 04/16/19 22:25 CK-MB (CK-2) Cancelled 04/16/19 22:25 CK-MB (CK-2) Rel Index Cancelled 04/16/19 22:25 0.160 ng/mL (0.00-0.029) H* 04/17/19 12:46 5.0 g/dL (6.3-8.2) L 04/17/19 12:46 2.2 g/dL (3.9-5) L 04/17/19 12:46 0.8 % 04/17/19 12:46 Triglycerides 170 mg/dL (2-149) H 04/16/19 22:25 Cholesterol 274 mg/dL (50-199) H 04/16/19 22:25 214 mg/dL (50-130) H 04/16/19 22:25 50 mg/dL (40-59) 04/16/19 22:25 5.48 % 04/16/19 22:25 26 units/L (13-60) 04/16/19 22:25 Yellow (Yellow) 04/17/19 11:15 Clear (Clear) 04/17/19 11:15 7.0 (5.0-7.0) 04/17/19 11:15 Ur Specific [place] 1.017 (1.003-1.030) 04/17/19 11:15 >500 mg/dL (Negative) 04/17/19 11:15 >=500 mg/dL (Negative) 04/17/19 11:15 Neg mg/dL (Negative) 04/17/19 11:15 Neg (Negative) 04/17/19 11:15 Neg (Negative) 04/17/19 11:15 Neg (Negative) 04/17/19 11:15 < 2.0 mg/dL (<2.0) 04/17/19 11:15 Ur Leukocyte Esterase Neg (Negative) 04/17/19 11:15 3.0 /HPF (0.0-6.0) 04/17/19 11:15 2.0 /HPF (0.0-6.0) 04/17/19 11:15 U Epithel Cells (Auto) < 1.0 /HPF (0-13.0) 04/17/19 11:15 Few /HPF 04/17/19 11:15 Blood Type O POSITIVE 04/16/19 23:30 Antibody Screen Negative 04/16/19 23:30 Crossmatch See Detail 04/16/19 23:30 Active Medications - Current Medications Current Medications: Generic Name Dose Route Start Last Admin Trade Name Freq PRN Reason Stop Dose Admin Acetaminophen 650 mg 04/17/19 04:19 Tylenol PO Q4H PRN Pain MILD(1-3)/Fever >100.5/LANZA Clonidine HCl 0.3 mg 04/18/19 10:00 04/18/19 13:08 Catapres-Tts Patch TD 0.3 mg QWEEK KESHIA Administration Dextrose 50 ml 04/17/19 01:30 D50w (25gm) Syringe IV PRN PRN Hypoglycemia Hydralazine HCl 20 mg 04/17/19 17:35 04/19/19 08:04 Apresoline IV 20 mg Q4HR PRN Administration SBP>170 or DBP>110 Pantoprazole Sodium 80 mg/ 100 mls @ 10 mls/hr 04/16/19 23:45 04/19/19 13:38 Sodium Chloride IV 8 mg/hr DIRECT KESHIA 10 mls/hr Administration 8 MG/HR Sodium Chloride 1,000 mls @ 75 mls/hr 04/17/19 02:00 04/19/19 11:30 Nacl 0.45% 1000 Ml IV 75 mls/hr DIRECT KESHIA Administration Insulin Human Lispro 0 unit 04/17/19 06:00 04/19/19 13:16 Humalog SUB-Q 2 unit Q6HR KESHIA Administration Protocol Lorazepam 1 mg 04/17/19 16:37 04/17/19 17:09 Ativan IV 1 mg Q6HR PRN Administration Vomiting Metoclopramide HCl 5 mg 04/17/19 01:41 04/17/19 17:09 Reglan IV 5 mg Q6H PRN Administration Nausea And Vomiting Metoprolol Tartrate 5 mg 04/18/19 09:20 04/19/19 13:17 Lopressor IV 5 mg Q6HR KESHIA Administration Morphine Sulfate 2 mg 06/07/19 04:19 Morphine IV Q4H PRN Pain, Moderate (4-6) Ondansetron HCl 4 mg 04/17/19 04:19 04/17/19 22:43 Zofran IV 4 mg Q4H PRN Administration Nausea And Vomiting Sodium Chloride 10 ml 04/17/19 10:00 04/19/19 09:18 Sodium Chloride Flush Syringe 10 Ml IV 10 ml BID KESHIA Administration Sodium Chloride 10 ml 04/17/19 04:19 Sodium Chloride Flush Syringe 10 Ml IV PRN PRN LINE FLUSH
--- NOTE | 2019-04-19 16:19 | Progress Note ---
Assessment and Plan 1. N/V - multifactorial, and due to poorly controlled DM. Resolved. - adv diet 2. Gastritis - s/p recent EGD at [place]. H/H stable. No evid of active bleeding. - no evaluation at present Subjective Date of service: 04/19/19 Interval history: Pt doing well. No N/V. Osvaldo clears well. Was seen yesterday, but neglected to write note though I spoke with Dr. Barr. Objective - Constitutional Vitals: Vital Signs - 12hr 04/19/19 04/19/19 04/19/19 05:36 05:38 07:41 Temperature 98.1 F 98.3 F Pulse Rate 70 70 69 Pulse Rate [ From Monitor] Respiratory 18 18 Rate Blood Pressure 183/91 192/102 Blood Pressure 183/91 [Left] O2 Sat by Pulse 98 98 Oximetry 04/19/19 04/19/19 04/19/19 08:04 10:00 12:25 Temperature 98.3 F Pulse Rate 67 67 68 Pulse Rate [ 69 From Monitor] Respiratory 18 16 Rate Blood Pressure 192/102 171/96 Blood Pressure [Left] O2 Sat by Pulse 98 97 Oximetry 04/19/19 16:16 Temperature 98.2 F Pulse Rate 64 Pulse Rate [ From Monitor] Respiratory 20 Rate Blood Pressure Blood Pressure 175/86 [Left] O2 Sat by Pulse 96 Oximetry General appearance: Present: no acute distress - EENT Eyes: PERRL, EOM intact ENT: hearing intact - Respiratory Respiratory effort: normal - Gastrointestinal General gastrointestinal: Present: soft, non-tender - Labs CBC & Chem 7: 04/19/19 Unknown 04/19/19 Unknown Labs: Abnormal lab results 04/16/19 04/18/19 04/18/19 Range/Units 23:30 18:04 23:25 RBC (3.65-5.03) M/mm3 Hgb (11.8-15.2) gm/dl Hct (35.5-45.6) % MCV (84-94) fl RDW (13.2-15.2) % Sodium (137-145) mmol/L BUN (9-20) mg/dL Creatinine (0.8-1.5) mg/dL Glucose (75-100) mg/dL POC Glucose 225 H 219 H (70-105) Calcium (8.4-10.2) mg/dL Crossmatch See Detail 04/19/19 04/19/19 04/19/19 Range/Units 07:08 12:28 Unknown RBC 3.51 L (3.65-5.03) M/mm3 Hgb 10.0 L (11.8-15.2) gm/dl Hct 29.2 L D (35.5-45.6) % MCV 83 L (84-94) fl RDW 15.7 H (13.2-15.2) % Sodium (137-145) mmol/L BUN (9-20) mg/dL Creatinine (0.8-1.5) mg/dL Glucose (75-100) mg/dL POC Glucose 179 H 216 H (70-105) Calcium (8.4-10.2) mg/dL Crossmatch 04/19/19 Range/Units Unknown RBC (3.65-5.03) M/mm3 Hgb (11.8-15.2) gm/dl Hct (35.5-45.6) % MCV (84-94) fl RDW (13.2-15.2) % Sodium 136 L D (137-145) mmol/L BUN 40 H (9-20) mg/dL Creatinine 5.3 H (0.8-1.5) mg/dL Glucose 213 H (75-100) mg/dL POC Glucose (70-105) Calcium 7.8 L (8.4-10.2) mg/dL Crossmatch Medications & Allergies - Medications Allergies/Adverse Reactions: Allergies No Known Allergies Allergy (Verified 11/21/18 17:51) Home Medications: Home Medications Medication Instructions Recorded Confirmed Last Taken Type Hydralazine HCl 50 mg PO TID 30 Days #90 tablet 11/23/18 04/17/19 Unknown Rx Insulin NPH/Regular [Novolin 70/30] 7 unit SQ BIDDIAB #1 vial 11/26/18 04/17/19 Unknown Rx Insulin Regular, Human [Novolin R] 1 dose SQ ACHS PRN #1 vial 11/26/18 04/17/19 Unknown Rx Active Medications: Generic Name Dose Route Start Last Admin Trade Name Freq PRN Reason Stop Dose Admin Acetaminophen 650 mg 04/17/19 04:19 Tylenol PO Q4H PRN Pain MILD(1-3)/Fever >100.5/LANZA Clonidine HCl 0.3 mg 04/18/19 10:00 04/18/19 13:08 Catapres-Tts Patch TD 0.3 mg QWEEK KESHIA Administration Dextrose 50 ml 04/17/19 01:30 D50w (25gm) Syringe IV PRN PRN Hypoglycemia Hydralazine HCl 20 mg 04/17/19 17:35 04/19/19 08:04 Apresoline IV 20 mg Q4HR PRN Administration SBP>170 or DBP>110 Pantoprazole Sodium 80 mg/ 100 mls @ 10 mls/hr 04/16/19 23:45 04/19/19 13:38 Sodium Chloride IV 8 mg/hr DIRECT KESHIA 10 mls/hr Administration 8 MG/HR Sodium Chloride 1,000 mls @ 75 mls/hr 04/17/19 02:00 04/19/19 11:30 Nacl 0.45% 1000 Ml IV 75 mls/hr DIRECT KESHIA Administration Insulin Human Lispro 0 unit 04/17/19 06:00 04/19/19 13:16 Humalog SUB-Q 2 unit Q6HR KESHIA Administration Protocol Lorazepam 1 mg 04/17/19 16:37 04/17/19 17:09 Ativan IV 1 mg Q6HR PRN Administration Vomiting Metoclopramide HCl 5 mg 04/17/19 01:41 04/17/19 17:09 Reglan IV 5 mg Q6H PRN Administration Nausea And Vomiting Metoprolol Tartrate 5 mg 04/18/19 09:20 04/19/19 13:17 Lopressor IV 5 mg Q6HR KESHIA Administration Morphine Sulfate 2 mg 04/17/19 04:19 Morphine IV Q4H PRN Pain, Moderate (4-6) Ondansetron HCl 4 mg 04/17/19 04:19 04/17/19 22:43 Zofran IV 4 mg Q4H PRN Administration Nausea And Vomiting Sodium Chloride 10 ml 04/17/19 10:00 04/19/19 09:18 Sodium Chloride Flush Syringe 10 Ml IV 10 ml BID KESHIA Administration Sodium Chloride 10 ml 04/17/19 04:19 Sodium Chloride Flush Syringe 10 Ml IV PRN PRN LINE FLUSH
[2019-04-19 17:26] LABS: Hepatitis B Surface Antigen Non-Reactive (Negative); Hepatitis C Virus Antibody Non-Reactive (NonReactive)
[2019-04-19] MEDS: APRESOLINE PO SCH ×2 (17:59→21:48)
[2019-04-19] MEDS: NORVASC PO SCH (17:59)
[2019-04-20] MEDS: LOPRESSOR IV SCH ×3 (01:00→14:45)
[2019-04-20] MEDS: PROTONIX 80 MG in NACL 0.9% 100 ML IV SCH (03:36)
[2019-04-20] MEDS: NACL 0.45% 1000 ML 1,000 ML IV SCH ×2 (03:37→19:56)
[2019-04-20] MEDS: APRESOLINE PO SCH ×4 (05:28→21:19)
[2019-04-20 05:43] LABS: Hematocrit 25.6 % (35.5-45.6); Hemoglobin 8.7 gm/dl (11.8-15.2); Mean Corpuscular HGB Conc 34 % (32-34); Mean Corpuscular Volume 83 fl (84-94); Platelet Count 283 K/mm3 (140-440); Red Blood Count 3.09 M/mm3 (3.65-5.03); Red Cell Distribution Width 15.1 % (13.2-15.2)
[2019-04-20 06:09] LABS: Calcium 7.2 mg/dL (8.4-10.2)
--- NOTE | 2019-04-20 09:50 | Progress Note ---
Subjective Interval history: Patient was seen today for follow-up on multiple renal related issues Events of this hospitalization noted Patient denies having any chest pain pressure or shortness of breath Vitals labs intake output medications were reviewed Social history: Reviewed Allergies: Reviewed Family history: Reviewed Physical examination HEENT: Oral mucosa moist no pallor or icterus Neck: Supple no JVD Chest: Clear to auscultation anteriorly CVS: Regular rate and rhythm S1 and S2 heard Abdomen: Soft nontender no suprapubic masses no organomegaly appreciable Extremity: Dry skin less than 1+ peripheral edema Musculoskeletal: No joint effusion noted in knees and ankle Neurological: Alert awake Dermatology: No petechial rashes Psychiatry: No evidence of any agitation and aggression noted Assessment and plan; Acute kidney injury with underlying stage III chronic kidney disease, patient's renal prognosis is guarded at this time, admitted with upper GI bleed coffee- ground emesis in the setting of diabetes as well as diabetic gastroparesis/also noted to have ulcerative esophagitis/has had an endoscopy done at [facility] y being followed by gastroenterology Baseline creatinine has been around 2.5 in November 2018, patient is a very high risk candidate for progression of renal failure due to underlying chronic kidney disease and gradual progression overtime Metabolic acidosis may consider starting sodium bicarbonate tablets CT scan of abdomen obtain April 17 shows evidence of perinephric stranding, Sodium currently 135 potassium 3.7 bicarbonate 20 BUN 35 creatinine is 4.5 which is slowly improving Abnormal cardiac enzyme likely due to renal failure, patient is at risk, and hence will need to follow-up with cardiology as well GI bleeding, status post packed red blood cell transfusion some of the anemia could be due to underlying chronic kidney disease Current hemoglobin is currently 8.7 which was 10.0 on the April 19 platelet count normal 283,000 Patient is a high risk for progression of renal failure too end-stage renal disease made aware Patient was adequately counseled and educated regarding multiple renal related issues, advised to make a follow-up appointment in the office upon discharge Pertinent lab findings were discussed with patient and patient does exhibit good understanding of renal issues. We'll continue to follow and make recommendation from renal standpoint Objective - Vital Signs Vital signs: Vital Signs - 12hr 04/20/19 04/20/19 04/20/19 00:00 01:00 04:38 Temperature 98.1 F 98.4 F Pulse Rate 65 65 59 L Respiratory 18 18 Rate Blood Pressure 141/91 142/79 Blood Pressure 141/91 [Left] O2 Sat by Pulse 100 99 Oximetry 04/20/19 04/20/19 05:28 07:55 Temperature 98.1 F Pulse Rate 68 Respiratory 18 Rate Blood Pressure 142/79 166/89 Blood Pressure [Left] O2 Sat by Pulse Oximetry - Lab 04/20/19 Unknown 04/20/19 Unknown Most recent lab results Calcium 7.2 mg/dL (8.4-10.2) L 04/20/19 Unknown Medications & Allergies - Medications Allergies/Adverse Reactions: Allergies No Known Allergies Allergy (Verified 11/21/18 17:51) Home Medications: Home Medications Medication Instructions Recorded Confirmed Last Taken Type Hydralazine HCl 50 mg PO TID 30 Days #90 tablet 11/23/18 04/17/19 Unknown Rx Insulin NPH/Regular [Novolin 70/30] 7 unit SQ BIDDIAB #1 vial 11/26/18 04/17/19 Unknown Rx Insulin Regular, Human [Novolin R] 1 dose SQ ACHS PRN #1 vial 11/26/18 04/17/19 Unknown Rx Active Medications: Generic Name Dose Route Start Last Admin Trade Name Freq PRN Reason Stop Dose Admin Acetaminophen 650 mg 04/17/19 04:19 Tylenol PO Q4H PRN Pain MILD(1-3)/Fever >100.5/LANZA Amlodipine Besylate 10 mg 04/19/19 18:00 04/19/19 17:59 Norvasc PO 10 mg QDAY KESHIA Administration Clonidine HCl 0.3 mg 04/18/19 10:00 04/18/19 13:08 Catapres-Tts Patch TD 0.3 mg QWEEK KESHIA Administration Dextrose 50 ml 04/17/19 01:30 D50w (25gm) Syringe IV PRN PRN Hypoglycemia Hydralazine HCl 20 mg 04/17/19 17:35 04/19/19 08:04 Apresoline IV 20 mg Q4HR PRN Administration SBP>170 or DBP>110 Hydralazine HCl 50 mg 04/19/19 18:00 04/20/19 05:28 Apresoline PO 50 mg Q8HR KESHIA Administration Pantoprazole Sodium 80 mg/ 100 mls @ 10 mls/hr 04/16/19 23:45 04/20/19 03:36 Sodium Chloride IV 8 mg/hr DIRECT KESHIA 10 mls/hr Administration 8 MG/HR Sodium Chloride 1,000 mls @ 75 mls/hr 04/17/19 02:00 04/20/19 03:37 Nacl 0.45% 1000 Ml IV 75 mls/hr DIRECT KESHIA Administration Insulin Human Lispro 0 unit 04/20/19 07:30 Humalog SUB-Q ACHS KESHIA Protocol Lorazepam 1 mg 04/17/19 16:37 04/17/19 17:09 Ativan IV 1 mg Q6HR PRN Administration Vomiting Metoclopramide HCl 5 mg 04/17/19 01:41 04/17/19 17:09 Reglan IV 5 mg Q6H PRN Administration Nausea And Vomiting Metoprolol Tartrate 5 mg 04/18/19 09:20 04/20/19 05:28 Lopressor IV 5 mg Q6HR KESHIA Administration Morphine Sulfate 2 mg 04/17/19 04:19 Morphine IV Q4H PRN Pain, Moderate (4-6) Ondansetron HCl 4 mg 04/17/19 04:19 04/17/19 22:43 Zofran IV 4 mg Q4H PRN Administration Nausea And Vomiting Sodium Chloride 10 ml 04/17/19 10:00 04/19/19 21:49 Sodium Chloride Flush Syringe 10 Ml IV 10 ml BID KESHIA Administration Sodium Chloride 10 ml 04/17/19 04:19 Sodium Chloride Flush Syringe 10 Ml IV PRN PRN LINE FLUSH
[2019-04-20] MEDS: SODIUM CHLORIDE FLUSH SYRINGE 10 ML IV SCH ×2 (11:37→21:20)
[2019-04-20] MEDS: HumaLOG SUB-Q SCH ×4 (11:37→22:44)
[2019-04-20] MEDS: NORVASC PO SCH (11:38)
--- NOTE | 2019-04-20 12:07 | Progress Note ---
Assessment and Plan Assessment and plan: Patient is 33-year-old man with a history of hypertension, diabetes, complicated by gastroparesis, chronic kidney disease, gastric ulcer, esophagitis comes to emergency room because he has been vomiting blood for 2 days, unable to tolerate oral intake, and had coffee ground emesis. He was at [facility] 4 days prior to this admission for similar symptoms, he was admitted there for 4 days, status post endoscopy does not know the results. He was seen and evaluated in Emergency Department. Hemoglobin was 7.8 and Creatinine 5.9. He was diagnosed with acute on chronic kidney disease and upper GI bleed. He was admitted and put on Protonix drip, transfused total 3 units PRBC bringing hemoglobin to 8.7. He was seen by GI physician who recommended conservative management since he has had a recent evaluation at [facility]. He was also seen by a break out worker and creatinine has improved from 5.9 on admission down to 4.5 today. Plan is to follow Cr and to discharge when at baseline. Upper GI bleed with hematemesis Subsided, no more hematemesis Admitted to Telemetry protonix iv GI following Monitor H/H Transfused PRBC Anemia due to acute blood loss s/p 3 Units PRBC Acute on CKD Nephrology following iv fluids Cr improving, trending downwards Diabetes mellitus type 2 Accucheck q ac and hs Hypertensive urgency Clonidine patch Hyydralazine iv prn Full code status History Interval history: No more vomiting blood No chest pain or SOB Hospitalist Physical - Physical exam Narrative exam: Gen: Not in acute distress, lying in bed, HEENT: Normocephalic, atraumatic Neck: supple, no JVD Heart: S1 and S2 reg, no murmurs, rubs or gallop Lungs: Clear, no crackles, no wheeze Abd: soft, non tender, non distended, normal BS Ext: No edema, no clubbing, no cyanosis, Neuro: Awake,alert, oriented x 3, moves all ext, non focal Psych:Normal mood - Constitutional Vitals: Temp Pulse Resp BP Pulse Ox 98.1 F 70 18 166/80 99 04/20/19 07:55 04/20/19 11:38 04/20/19 07:55 04/20/19 11:38 04/20/19 04:38 General appearance: Present: no acute distress Results - Labs CBC & Chem 7: 04/20/19 Unknown 04/20/19 Unknown Labs: Laboratory Last Values WBC 6.3 K/mm3 (4.5-11.0) 04/20/19 Unknown RBC 3.09 M/mm3 (3.65-5.03) L 04/20/19 Unknown Hgb 8.7 gm/dl (11.8-15.2) L 04/20/19 Unknown Hct 25.6 % (35.5-45.6) L 04/20/19 Unknown MCV 83 fl (84-94) L 04/20/19 Unknown MCH 28 pg (28-32) 04/20/19 Unknown MCHC 34 % (32-34) 04/20/19 Unknown RDW 15.1 % (13.2-15.2) 04/20/19 Unknown Plt Count 283 K/mm3 (140-440) 04/20/19 Unknown Lymph % (Auto) 15.1 % (13.4-35.0) 04/16/19 22:25 [place] % (Auto) 7.7 % (0.0-7.3) H 04/16/19 22:25 Eos % (Auto) 0.0 % (0.0-4.3) 04/16/19 22:25 Baso % (Auto) 0.6 % (0.0-1.8) 04/16/19 22:25 Lymph # 1.5 K/mm3 (1.2-5.4) 04/16/19 22:25 [place] # 0.8 K/mm3 (0.0-0.8) 04/16/19 22:25 Eos # 0.0 K/mm3 (0.0-0.4) 04/16/19 22:25 Baso # 0.1 K/mm3 (0.0-0.1) 04/16/19 22:25 Add Manual Diff Complete 04/17/19 12:46 Total Counted 100 04/17/19 12:46 Seg Neutrophils % 76.6 % (40.0-70.0) H 04/16/19 22:25 Seg Neuts % (Manual) 83.0 % (40.0-70.0) H 04/17/19 12:46 0 % 04/17/19 12:46 14.0 % (13.4-35.0) 04/17/19 12:46 Reactive Lymphs % (Man) 0 % 04/17/19 12:46 2.0 % (0.0-7.3) 04/17/19 12:46 0 % (0.0-4.3) 04/17/19 12:46 0 % (0.0-1.8) 04/17/19 12:46 0 % 04/17/19 12:46 1.0 % 04/17/19 12:46 0 % 04/17/19 12:46 0 % 04/17/19 12:46 Nucleated RBC % Not Reportable 04/17/19 12:46 Seg Neutrophils # 7.5 K/mm3 (1.8-7.7) 04/16/19 22:25 Seg Neutrophils # Man 10.8 K/mm3 (1.8-7.7) H 04/17/19 12:46 Band Neutrophils # 0.0 K/mm3 04/17/19 12:46 1.8 K/mm3 (1.2-5.4) 04/17/19 12:46 Abs React Lymphs (Man) 0.0 K/mm3 04/17/19 12:46 0.3 K/mm3 (0.0-0.8) 04/17/19 12:46 0.0 K/mm3 (0.0-0.4) 04/17/19 12:46 0.0 K/mm3 (0.0-0.1) 04/17/19 12:46 0.0 K/mm3 04/17/19 12:46 0.1 K/mm3 04/17/19 12:46 0.0 K/mm3 04/17/19 12:46 Blast Cells # 0.0 K/mm3 04/17/19 12:46 WBC Morphology Not Reportable 04/17/19 12:46 Hypersegmented Neuts Not Reportable 04/17/19 12:46 Hyposegmented Neuts Not Reportable 04/17/19 12:46 Hypogranular Neuts Not Reportable 04/17/19 12:46 Not Reportable 04/17/19 12:46 Not Reportable 04/17/19 12:46 Not Reportable 04/17/19 12:46 Not Reportable 04/17/19 12:46 Not Reportable 04/17/19 12:46 Not Reportable 04/17/19 12:46 Consistent w auto 04/17/19 12:46 Not Reportable 04/17/19 12:46 Plt Clumps, EDTA Not Reportable 04/17/19 12:46 Not Reportable 04/17/19 12:46 Not Reportable 04/17/19 12:46 Not Reportable 04/17/19 12:46 Plt Morphology Comment Not Reportable 04/17/19 12:46 RBC Morphology Not Reportable 04/17/19 12:46 Dimorphic RBCs Not Reportable 04/17/19 12:46 Not Reportable 04/17/19 12:46 Not Reportable 04/17/19 12:46 1+ 04/17/19 12:46 1+ 04/17/19 12:46 Not Reportable 04/17/19 12:46 Not Reportable 04/17/19 12:46 Not Reportable 04/17/19 12:46 Not Reportable 04/17/19 12:46 Not Reportable 04/17/19 12:46 Not Reportable 04/17/19 12:46 Not Reportable 04/17/19 12:46 Not Reportable 04/17/19 12:46 Not Reportable 04/17/19 12:46 Not Reportable 04/17/19 12:46 Not Reportable 04/17/19 12:46 Not Reportable 04/17/19 12:46 Not Reportable 04/17/19 12:46 Not Reportable 04/17/19 12:46 Not Reportable 04/17/19 12:46 Acanthocytes (Spur) Not Reportable 04/17/19 12:46 [place] Not Reportable 04/17/19 12:46 Not Reportable 04/17/19 12:46 Not Reportable 04/17/19 12:46 Not Reportable 04/17/19 12:46 Not Reportable 04/17/19 12:46 Hem Pathologist Commnt No 04/17/19 12:46 PT 13.9 Sec. (12.2-14.9) 04/16/19 22:25 INR 1.01 (0.87-1.13) 04/16/19 22:25 APTT 28.0 Sec. (24.2-36.6) 04/16/19 22:25 Sodium 135 mmol/L (137-145) L 04/20/19 Unknown Potassium 3.7 mmol/L (3.6-5.0) 04/20/19 Unknown Chloride 106.7 mmol/L (98-107) 04/20/19 Unknown Carbon Dioxide 20 mmol/L (22-30) L 04/20/19 Unknown 12 mmol/L 04/20/19 Unknown BUN 34 mg/dL (9-20) H 04/20/19 Unknown 4.5 mg/dL (0.8-1.5) H 04/20/19 Unknown Estimated GFR 19 ml/min 04/20/19 Unknown 8 % 04/20/19 Unknown Glucose 228 mg/dL (75-100) H 04/20/19 Unknown POC Glucose 233 (70-105) H 04/20/19 07:59 Calcium 7.2 mg/dL (8.4-10.2) L 04/20/19 Unknown 0.30 mg/dL (0.1-1.2) 04/17/19 12:46 < 0.2 mg/dL (0-0.2) 04/17/19 12:46 AST 13 units/L (5-40) 04/17/19 12:46 ALT 11 units/L (7-56) 04/17/19 12:46 56 units/L (35-129) 04/17/19 12:46 Cancelled 04/16/19 22:25 CK-MB (CK-2) Cancelled 04/16/19 22:25 CK-MB (CK-2) Rel Index Cancelled 04/16/19 22:25 0.160 ng/mL (0.00-0.029) H* 04/17/19 12:46 5.0 g/dL (6.3-8.2) L 04/17/19 12:46 2.2 g/dL (3.9-5) L 04/17/19 12:46 0.8 % 04/17/19 12:46 Triglycerides 170 mg/dL (2-149) H 04/16/19 22:25 Cholesterol 274 mg/dL (50-199) H 04/16/19 22:25 214 mg/dL (50-130) H 04/16/19 22:25 50 mg/dL (40-59) 04/16/19 22:25 5.48 % 04/16/19 22:25 26 units/L (13-60) 04/16/19 22:25 Yellow (Yellow) 04/17/19 11:15 Clear (Clear) 04/17/19 11:15 7.0 (5.0-7.0) 04/17/19 11:15 Ur Specific [place] 1.017 (1.003-1.030) 04/17/19 11:15 >500 mg/dL (Negative) 04/17/19 11:15 >=500 mg/dL (Negative) 04/17/19 11:15 Neg mg/dL (Negative) 04/17/19 11:15 Neg (Negative) 04/17/19 11:15 Neg (Negative) 04/17/19 11:15 Neg (Negative) 04/17/19 11:15 < 2.0 mg/dL (<2.0) 04/17/19 11:15 Ur Leukocyte Esterase Neg (Negative) 04/17/19 11:15 3.0 /HPF (0.0-6.0) 04/17/19 11:15 2.0 /HPF (0.0-6.0) 04/17/19 11:15 U Epithel Cells (Auto) < 1.0 /HPF (0-13.0) 04/17/19 11:15 Few /HPF 04/17/19 11:15 Hepatitis A IgM Ab Non-reactive (NonReactive) 04/19/19 Unknown Hep Bs Antigen Non-reactive (Negative) 04/19/19 Unknown Hep B Core IgM Ab Non-reactive (NonReactive) 04/19/19 Unknown Non-reactive (NonReactive) 04/19/19 Unknown Blood Type O POSITIVE 04/16/19 23:30 Antibody Screen Negative 04/16/19 23:30 Crossmatch See Detail 04/16/19 23:30 Active Medications - Current Medications Current Medications: Generic Name Dose Route Start Last Admin Trade Name Freq PRN Reason Stop Dose Admin Acetaminophen 650 mg 04/17/19 04:19 Tylenol PO Q4H PRN Pain MILD(1-3)/Fever >100.5/LANZA Amlodipine Besylate 10 mg 04/19/19 18:00 04/20/19 11:38 Norvasc PO 10 mg QDAY KESHIA Administration Clonidine HCl 0.3 mg 04/18/19 10:00 04/18/19 13:08 Catapres-Tts Patch TD 0.3 mg QWEEK KESHIA Administration Dextrose 50 ml 04/17/19 01:30 D50w (25gm) Syringe IV PRN PRN Hypoglycemia Hydralazine HCl 20 mg 04/17/19 17:35 04/19/19 08:04 Apresoline IV 20 mg Q4HR PRN Administration SBP>170 or DBP>110 Hydralazine HCl 50 mg 04/19/19 18:00 04/20/19 05:28 Apresoline PO 50 mg Q8HR KESHIA Administration Pantoprazole Sodium 80 mg/ 100 mls @ 10 mls/hr 04/16/19 23:45 04/20/19 03:36 Sodium Chloride IV 8 mg/hr DIRECT KESHIA 10 mls/hr Administration 8 MG/HR Sodium Chloride 1,000 mls @ 75 mls/hr 04/17/19 02:00 04/20/19 03:37 Nacl 0.45% 1000 Ml IV 75 mls/hr DIRECT KESHIA Administration Insulin Human Lispro 0 unit 04/20/19 07:30 04/20/19 11:37 Humalog SUB-Q 2 unit ACHS KESHIA Administration Protocol Lorazepam 1 mg 04/17/19 16:37 04/17/19 17:09 Ativan IV 1 mg Q6HR PRN Administration Vomiting Metoclopramide HCl 5 mg 04/17/19 01:41 04/17/19 17:09 Reglan IV 5 mg Q6H PRN Administration Nausea And Vomiting Metoprolol Tartrate 5 mg 04/18/19 09:20 04/20/19 05:28 Lopressor IV 5 mg Q6HR KESHIA Administration Morphine Sulfate 2 mg 04/17/19 04:19 Morphine IV Q4H PRN Pain, Moderate (4-6) Ondansetron HCl 4 mg 04/17/19 04:19 04/17/19 22:43 Zofran IV 4 mg Q4H PRN Administration Nausea And Vomiting Sodium Chloride 10 ml 04/17/19 10:00 04/20/19 11:37 Sodium Chloride Flush Syringe 10 Ml IV 10 ml BID KESHIA Administration Sodium Chloride 10 ml 04/17/19 04:19 Sodium Chloride Flush Syringe 10 Ml IV PRN PRN LINE FLUSH
[2019-04-20] MEDS ORDERED: PROTONIX IV SCH (13:00)
--- NOTE | 2019-04-20 14:07 | Ultrasound Report ---
ULTRASOUND RENAL BILATERAL HISTORY: Acute kidney injury. TECHNIQUE: transabdominal ultrasound with color Doppler interrogation. COMPARISON: None. FINDINGS: The right kidney measures 12.2cm. Right renal cortex: 2.4cm. The left kidney measures 11.1cm. Left renal cortex: 2.4cm. The kidneys are normal size, contour and position. There is increased renal cortical echotexture bilaterally consistent with nonspecific renal parenchymal disease. Corticomedullary differentiation is preserved. No evidence for cystic disease, mass, nephrolithiasis, hydronephrosis or perinephric fluid. The views of the bladder and the region of the ureters appear normal. IMPRESSION: Renal parenchymal disease.
[2019-04-20] MEDS: PROTONIX PO SCH ×2 (14:45→22:44)
[2019-04-20 17:46] LABS: Creatinine,Urine 106.6 mg/dL (0.1-20.0)
[2019-04-20 17:48] LABS: Patient Weight,Urine 217.2 lbs
[2019-04-20] MEDS ORDERED: APRESOLINE PO SCH (17:50)
[2019-04-20] MEDS: APRESOLINE IV PRN (18:13)
[2019-04-21] MEDS: APRESOLINE PO SCH ×3 (06:45→23:25)
[2019-04-21 08:20] LABS: Hematocrit 26.3 % (35.5-45.6); Hemoglobin 9.1 gm/dl (11.8-15.2); Mean Corpuscular HGB Conc 35 % (32-34); Mean Corpuscular Volume 83 fl (84-94); Platelet Count 297 K/mm3 (140-440); Red Blood Count 3.18 M/mm3 (3.65-5.03); Red Cell Distribution Width 14.9 % (13.2-15.2)
[2019-04-21 08:35] LABS: Calcium 7.4 mg/dL (8.4-10.2)
--- NOTE | 2019-04-21 08:50 | Progress Note ---
Subjective Interval history: Patient was seen today for follow-up on multiple renal related issues Events of this hospitalization noted Patient is better aware about the degree and severity of renal failure now Is willing to make an appointment in the office for follow-up Patient denies having any chest pain pressure or shortness of breath Vitals labs intake output medications were reviewed Social history: Reviewed Allergies: Reviewed Family history: Reviewed Physical examination HEENT: Oral mucosa moist no pallor or icterus Neck: Supple no JVD Chest: Clear to auscultation anteriorly CVS: Regular rate and rhythm S1 and S2 heard Abdomen: Soft nontender no suprapubic masses no organomegaly appreciable Extremity: Dry skin less than 1+ peripheral edema Musculoskeletal: No joint effusion noted in knees and ankle Neurological: Alert awake Dermatology: No petechial rashes Psychiatry: No evidence of any agitation and aggression noted Assessment and plan; Acute kidney injury with underlying stage III chronic kidney disease, patient's renal prognosis is guarded at this time, admitted with upper GI bleed coffee- ground emesis in the setting of diabetes as well as diabetic gastroparesis/also noted to have ulcerative esophagitis/has had an endoscopy done at [place] currently being followed by gastroenterology Will also order workup for anemia, if required may receive iron infusion His creatinine is currently stabilizing around 4.5-4.8, baseline creatinine is around the 2.5 as of November 2018 Patient is high risk for progression of renal failure over time in the absence of proper renal follow-up There is no emergent indication for renal replacement therapy, need to patiently monitor renal function for now Mild hyponatremia: We'll continue to follow, discontinue half-normal saline Anemia in chronic kidney disease Will give erythropoietin Metabolic acidosis Will start the patient and sodium bicarbonate Currently his creatinine clearance has been estimated to be around 20 mL/m, hepatitis profile is negative CT scan of abdomen obtain April 17 shows evidence of perinephric stranding, Abnormal cardiac enzyme likely due to renal failure, patient is at risk, and hence will need to follow-up with cardiology as well GI bleeding, status post packed red blood cell transfusion some of the anemia could be due to underlying chronic kidney disease Patient is a high risk for progression of renal failure too end-stage renal disease made aware Patient was adequately counseled and educated regarding multiple renal related issues, advised to make a follow-up appointment in the office upon discharge Pertinent lab findings were discussed with patient and patient does exhibit good understanding of renal issues. We'll continue to follow and make recommendation from renal standpoint Objective - Vital Signs Vital signs: Vital Signs - 12hr 04/20/19 04/21/19 04/21/19 21:16 00:16 06:01 Temperature 97.3 F L 97.3 F L 97.9 F Pulse Rate 67 68 69 Respiratory 18 17 18 Rate Blood Pressure 158/95 158/95 157/95 O2 Sat by Pulse 98 97 98 Oximetry - Lab 04/21/19 08:00 04/21/19 08:00 Most recent lab results Calcium 7.4 mg/dL (8.4-10.2) L 04/21/19 08:00 106.6 mg/dL (0.1-20.0) H 04/20/19 Unknown Medications & Allergies - Medications Allergies/Adverse Reactions: Allergies No Known Allergies Allergy (Verified 11/21/18 17:51) Home Medications: Home Medications Medication Instructions Recorded Confirmed Last Taken Type Hydralazine HCl 50 mg PO TID 30 Days #90 tablet 11/23/18 04/17/19 Unknown Rx Insulin NPH/Regular [Novolin 70/30] 7 unit SQ BIDDIAB #1 vial 11/26/18 04/17/19 Unknown Rx Insulin Regular, Human [Novolin R] 1 dose SQ ACHS PRN #1 vial 11/26/18 04/17/19 Unknown Rx Active Medications: Generic Name Dose Route Start Last Admin Trade Name Freq PRN Reason Stop Dose Admin Acetaminophen 650 mg 04/17/19 04:19 Tylenol PO Q4H PRN Pain MILD(1-3)/Fever >100.5/LANZA Amlodipine Besylate 10 mg 04/19/19 18:00 04/20/19 11:38 Norvasc PO 10 mg QDAY KESHIA Administration Dextrose 50 ml 04/17/19 01:30 D50w (25gm) Syringe IV PRN PRN Hypoglycemia Hydralazine HCl 20 mg 04/17/19 17:35 04/20/19 18:13 Apresoline IV 20 mg Q4HR PRN Administration SBP>170 or DBP>110 Hydralazine HCl 100 mg 04/20/19 18:00 04/21/19 06:45 Apresoline PO 100 mg Q8HR KESHIA Administration Sodium Chloride 1,000 mls @ 75 mls/hr 04/17/19 02:00 04/20/19 19:56 Nacl 0.45% 1000 Ml IV 75 mls/hr DIRECT KESHIA Administration Insulin Human Lispro 0 unit 04/20/19 07:30 04/20/19 22:44 Humalog SUB-Q 1 unit ACHS KESHIA Administration Protocol Lorazepam 1 mg 04/17/19 16:37 04/17/19 17:09 Ativan IV 1 mg Q6HR PRN Administration Vomiting Metoclopramide HCl 5 mg 04/17/19 01:41 04/17/19 17:09 Reglan IV 5 mg Q6H PRN Administration Nausea And Vomiting Morphine Sulfate 2 mg 04/17/19 04:19 Morphine IV Q4H PRN Pain, Moderate (4-6) Ondansetron HCl 4 mg 04/17/19 04:19 04/17/19 22:43 Zofran IV 4 mg Q4H PRN Administration Nausea And Vomiting Pantoprazole Sodium 40 mg 04/20/19 14:00 04/20/19 22:44 Protonix PO 40 mg BID KESHIA Administration Sodium Chloride 10 ml 04/17/19 10:00 04/20/19 21:20 Sodium Chloride Flush Syringe 10 Ml IV 10 ml BID KESHIA Administration Sodium Chloride 10 ml 04/17/19 04:19 Sodium Chloride Flush Syringe 10 Ml IV PRN PRN LINE FLUSH
[2019-04-21] MEDS ORDERED: PROCRIT SUB-Q NR (08:52)
[2019-04-21] MEDS: HumaLOG SUB-Q SCH ×4 (09:17→23:35)
[2019-04-21] MEDS: PROTONIX PO SCH ×2 (09:18→23:25)
[2019-04-21] MEDS: NORVASC PO SCH (09:18)
[2019-04-21] MEDS: NACL 0.45% 1000 ML 1,000 ML IV SCH (09:19)
[2019-04-21] MEDS: SODIUM BICARBONATE PO SCH ×2 (09:23→23:25)
[2019-04-21] MEDS: SODIUM CHLORIDE FLUSH SYRINGE 10 ML IV SCH ×2 (09:24→23:25)
[2019-04-21 10:33] LABS: % Iron Saturation 23.44 %
--- NOTE | 2019-04-21 11:17 | Progress Note ---
Assessment and Plan Assessment and plan: Upper GI bleed with hematemesis Subsided, no more hematemesis protonix iv GI signing off today Monitor H/H Transfused PRBC Anemia due to acute blood loss s/p 3 Units PRBC Acute on CKD Nephrology following iv fluids Await creatinine returned to baseline. Diabetes mellitus type 2 Accucheck q ac and hs Hypertensive urgency Clonidine patch Hyydralazine iv prn Resolved Full code status History Interval history: Patient is 33-year-old man with a history of hypertension, diabetes, complicated by gastroparesis, chronic kidney disease, gastric ulcer, esophagitis comes to emergency room because he has been vomiting blood for 2 days, unable to tolerate oral intake, and had coffee ground emesis. He was at [place] 4 days prior to this admission for similar symptoms, he was admitted there for 4 days, status post endoscopy does not know the results. He was seen and evaluated in Emergency Department. Hemoglobin was 7.8 and Creatinine 5.9. He was diagnosed with acute on chronic kidney disease and upper GI bleed. He was admitted and put on Protonix drip, transfused total 3 units PRBC bringing hemoglobin to 8.7. He was seen by GI physician who recommended conservative management since he has had a recent evaluation at [place]. He was also seen by a learning and development director and creatinine has improved from 5.9 on admission down to 4.5 today. Plan is to follow Cr and to discharge when at baseline. Hospitalist Physical - Constitutional Vitals: Temp Pulse Resp BP Pulse Ox 97.9 F 70 18 157/95 98 04/21/19 06:01 04/21/19 09:40 04/21/19 06:01 04/21/19 06:01 04/21/19 06:01 General appearance: Present: no acute distress - EENT Eyes: Present: PERRL, EOM intact ENT: hearing intact, clear oral mucosa, dentition normal - Neck Neck: Present: supple, normal ROM - Respiratory Respiratory effort: normal Respiratory: bilateral: CTA - Cardiovascular Rhythm: regular Heart Sounds: Present: S1 & S2. Absent: gallop, rub - Extremities Extremities: no ischemia, No edema, Full ROM - Abdominal General gastrointestinal: soft, non-tender, non-distended, normal bowel sounds - Integumentary Integumentary: Present: clear, warm, dry - Neurologic Neurologic: CNII-XII intact, moves all extremities Results - Labs CBC & Chem 7: 04/21/19 08:00 04/21/19 08:00 Labs: Laboratory Last Values WBC 5.4 K/mm3 (4.5-11.0) 04/21/19 08:00 RBC 3.18 M/mm3 (3.65-5.03) L 04/21/19 08:00 Hgb 9.1 gm/dl (11.8-15.2) L 04/21/19 08:00 Hct 26.3 % (35.5-45.6) L 04/21/19 08:00 MCV 83 fl (84-94) L 04/21/19 08:00 MCH 29 pg (28-32) 04/21/19 08:00 MCHC 35 % (32-34) H 04/21/19 08:00 RDW 14.9 % (13.2-15.2) 04/21/19 08:00 Plt Count 297 K/mm3 (140-440) 04/21/19 08:00 Lymph % (Auto) 15.1 % (13.4-35.0) 04/16/19 22:25 [place] % (Auto) 7.7 % (0.0-7.3) H 04/16/19 22:25 Eos % (Auto) 0.0 % (0.0-4.3) 04/16/19 22:25 Baso % (Auto) 0.6 % (0.0-1.8) 04/16/19 22:25 Lymph # 1.5 K/mm3 (1.2-5.4) 04/16/19 22:25 [place] # 0.8 K/mm3 (0.0-0.8) 04/16/19 22:25 Eos # 0.0 K/mm3 (0.0-0.4) 04/16/19 22:25 Baso # 0.1 K/mm3 (0.0-0.1) 04/16/19 22:25 Add Manual Diff Complete 04/17/19 12:46 Total Counted 100 04/17/19 12:46 Seg Neutrophils % 76.6 % (40.0-70.0) H 04/16/19 22:25 Seg Neuts % (Manual) 83.0 % (40.0-70.0) H 04/17/19 12:46 0 % 04/17/19 12:46 14.0 % (13.4-35.0) 04/17/19 12:46 Reactive Lymphs % (Man) 0 % 04/17/19 12:46 2.0 % (0.0-7.3) 04/17/19 12:46 0 % (0.0-4.3) 04/17/19 12:46 0 % (0.0-1.8) 04/17/19 12:46 0 % 04/17/19 12:46 1.0 % 04/17/19 12:46 0 % 04/17/19 12:46 0 % 04/17/19 12:46 Nucleated RBC % Not Reportable 04/17/19 12:46 Seg Neutrophils # 7.5 K/mm3 (1.8-7.7) 04/16/19 22:25 Seg Neutrophils # Man 10.8 K/mm3 (1.8-7.7) H 04/17/19 12:46 Band Neutrophils # 0.0 K/mm3 04/17/19 12:46 1.8 K/mm3 (1.2-5.4) 04/17/19 12:46 Abs React Lymphs (Man) 0.0 K/mm3 04/17/19 12:46 0.3 K/mm3 (0.0-0.8) 04/17/19 12:46 0.0 K/mm3 (0.0-0.4) 04/17/19 12:46 0.0 K/mm3 (0.0-0.1) 04/17/19 12:46 0.0 K/mm3 04/17/19 12:46 0.1 K/mm3 04/17/19 12:46 0.0 K/mm3 04/17/19 12:46 Blast Cells # 0.0 K/mm3 04/17/19 12:46 WBC Morphology Not Reportable 04/17/19 12:46 Hypersegmented Neuts Not Reportable 04/17/19 12:46 Hyposegmented Neuts Not Reportable 04/17/19 12:46 Hypogranular Neuts Not Reportable 04/17/19 12:46 Not Reportable 04/17/19 12:46 Not Reportable 04/17/19 12:46 Not Reportable 04/17/19 12:46 Not Reportable 04/17/19 12:46 Not Reportable 04/17/19 12:46 Not Reportable 04/17/19 12:46 Consistent w auto 04/17/19 12:46 Not Reportable 04/17/19 12:46 Plt Clumps, EDTA Not Reportable 04/17/19 12:46 Not Reportable 04/17/19 12:46 Not Reportable 04/17/19 12:46 Not Reportable 04/17/19 12:46 Plt Morphology Comment Not Reportable 04/17/19 12:46 RBC Morphology Not Reportable 04/17/19 12:46 Dimorphic RBCs Not Reportable 04/17/19 12:46 Not Reportable 04/17/19 12:46 Not Reportable 04/17/19 12:46 1+ 04/17/19 12:46 1+ 04/17/19 12:46 Not Reportable 04/17/19 12:46 Not Reportable 04/17/19 12:46 Not Reportable 04/17/19 12:46 Not Reportable 04/17/19 12:46 Not Reportable 04/17/19 12:46 Not Reportable 04/17/19 12:46 Not Reportable 04/17/19 12:46 Not Reportable 04/17/19 12:46 Not Reportable 04/17/19 12:46 Not Reportable 04/17/19 12:46 Not Reportable 04/17/19 12:46 Not Reportable 04/17/19 12:46 Not Reportable 04/17/19 12:46 Not Reportable 04/17/19 12:46 Not Reportable 04/17/19 12:46 Acanthocytes (Spur) Not Reportable 04/17/19 12:46 Rouleaux Not Reportable 04/17/19 12:46 Not Reportable 04/17/19 12:46 Not Reportable 04/17/19 12:46 Not Reportable 04/17/19 12:46 Percent Retic 1.65 % (0.78-2.58) 04/21/19 09:35 Not Reportable 04/17/19 12:46 Hem Pathologist Commnt No 04/17/19 12:46 PT 13.9 Sec. (12.2-14.9) 04/16/19 22:25 INR 1.01 (0.87-1.13) 04/16/19 22:25 APTT 28.0 Sec. (24.2-36.6) 04/16/19 22:25 Sodium 132 mmol/L (137-145) L 04/21/19 08:00 Potassium 4.3 mmol/L (3.6-5.0) 04/21/19 08:00 Chloride 103.2 mmol/L (98-107) 04/21/19 08:00 Carbon Dioxide 21 mmol/L (22-30) L 04/21/19 08:00 12 mmol/L 04/21/19 08:00 BUN 37 mg/dL (9-20) H 04/21/19 08:00 4.8 mg/dL (0.8-1.5) H 04/21/19 08:00 Estimated GFR 17 ml/min 04/21/19 08:00 8 % 04/21/19 08:00 Glucose 298 mg/dL (75-100) H 04/21/19 08:00 POC Glucose 324 (70-105) H 04/21/19 07:58 Calcium 7.4 mg/dL (8.4-10.2) L 04/21/19 08:00 Iron 30 ug/dL (49-181) L 04/21/19 09:35 TIBC 128 mcg/dL (250-450) L 04/21/19 09:35 % Saturation 23.44 % 04/21/19 09:35 119 mg/dl (180-329) L 04/21/19 09:35 233.1 ng/mL (13.0-400.0) 04/21/19 09:35 0.30 mg/dL (0.1-1.2) 04/17/19 12:46 < 0.2 mg/dL (0-0.2) 04/17/19 12:46 AST 13 units/L (5-40) 04/17/19 12:46 ALT 11 units/L (7-56) 04/17/19 12:46 56 units/L (35-129) 04/17/19 12:46 Cancelled 04/16/19 22:25 CK-MB (CK-2) Cancelled 04/16/19 22:25 CK-MB (CK-2) Rel Index Cancelled 04/16/19 22:25 0.160 ng/mL (0.00-0.029) H* 04/17/19 12:46 5.0 g/dL (6.3-8.2) L 04/17/19 12:46 2.2 g/dL (3.9-5) L 04/17/19 12:46 0.8 % 04/17/19 12:46 Triglycerides 170 mg/dL (2-149) H 04/16/19 22:25 Cholesterol 274 mg/dL (50-199) H 04/16/19 22:25 214 mg/dL (50-130) H 04/16/19 22:25 50 mg/dL (40-59) 04/16/19 22:25 5.48 % 04/16/19 22:25 26 units/L (13-60) 04/16/19 22:25 Vitamin B12 949.0 pg/mL (211-911) H 04/21/19 09:35 Yellow (Yellow) 04/17/19 11:15 Clear (Clear) 04/17/19 11:15 7.0 (5.0-7.0) 04/17/19 11:15 Ur Specific [place] 1.017 (1.003-1.030) 04/17/19 11:15 >500 mg/dL (Negative) 04/17/19 11:15 >=500 mg/dL (Negative) 04/17/19 11:15 Neg mg/dL (Negative) 04/17/19 11:15 Neg (Negative) 04/17/19 11:15 Neg (Negative) 04/17/19 11:15 Neg (Negative) 04/17/19 11:15 < 2.0 mg/dL (<2.0) 04/17/19 11:15 Ur Leukocyte Esterase Neg (Negative) 04/17/19 11:15 3.0 /HPF (0.0-6.0) 04/17/19 11:15 2.0 /HPF (0.0-6.0) 04/17/19 11:15 U Epithel Cells (Auto) < 1.0 /HPF (0-13.0) 04/17/19 11:15 Few /HPF 04/17/19 11:15 1600 ml 04/20/19 Unknown 106.6 mg/dL (0.1-20.0) H 04/20/19 Unknown Height (in) 75.0 inches 04/20/19 Unknown Weight (lb) 217.2 lbs 04/20/19 Unknown 20 04/20/19 Unknown Hepatitis A IgM Ab Non-reactive (NonReactive) 04/19/19 Unknown Hep Bs Antigen Non-reactive (Negative) 04/19/19 Unknown Hep B Core IgM Ab Non-reactive (NonReactive) 04/19/19 Unknown Non-reactive (NonReactive) 04/19/19 Unknown Blood Type O POSITIVE 04/16/19 23:30 Antibody Screen Negative 04/16/19 23:30 Crossmatch See Detail 04/16/19 23:30 Active Medications - Current Medications Current Medications: Generic Name Dose Route Start Last Admin Trade Name Freq PRN Reason Stop Dose Admin Acetaminophen 650 mg 04/17/19 04:19 Tylenol PO Q4H PRN Pain MILD(1-3)/Fever >100.5/LANZA Amlodipine Besylate 10 mg 04/19/19 18:00 04/21/19 09:18 Norvasc PO 10 mg QDAY KESHIA Administration Dextrose 50 ml 04/17/19 01:30 D50w (25gm) Syringe IV PRN PRN Hypoglycemia Hydralazine HCl 20 mg 04/17/19 17:35 04/20/19 18:13 Apresoline IV 20 mg Q4HR PRN Administration SBP>170 or DBP>110 Hydralazine HCl 100 mg 04/20/19 18:00 04/21/19 06:45 Apresoline PO 100 mg Q8HR KESHIA Administration Insulin Human Lispro 0 unit 04/20/19 07:30 04/21/19 09:17 Humalog SUB-Q 4 unit ACHS KESHIA Administration Protocol Lorazepam 1 mg 04/17/19 16:37 04/17/19 17:09 Ativan IV 1 mg Q6HR PRN Administration Vomiting Metoclopramide HCl 5 mg 04/17/19 01:41 04/17/19 17:09 Reglan IV 5 mg Q6H PRN Administration Nausea And Vomiting Morphine Sulfate 2 mg 04/17/19 04:19 Morphine IV Q4H PRN Pain, Moderate (4-6) Ondansetron HCl 4 mg 04/17/19 04:19 04/17/19 22:43 Zofran IV 4 mg Q4H PRN Administration Nausea And Vomiting Pantoprazole Sodium 40 mg 04/20/19 14:00 04/21/19 09:18 Protonix PO 40 mg BID KESHIA Administration Sodium Bicarbonate 1,300 mg 04/21/19 10:00 04/21/19 09:23 Sodium Bicarbonate PO 1,300 mg BID KESHIA Administration Sodium Chloride 10 ml 04/17/19 10:00 04/21/19 09:24 Sodium Chloride Flush Syringe 10 Ml IV 10 ml BID KESHIA Administration Sodium Chloride 10 ml 04/17/19 04:19 Sodium Chloride Flush Syringe 10 Ml IV PRN PRN LINE FLUSH
--- NOTE | 2019-04-21 12:02 | Gastroenterology Progress Note ---
Assessment and Plan 1. N/V - multifactorial, and due to poorly controlled DM. Resolved. - tolerating diet 2. Gastritis - s/p recent EGD at [place]. H/H stable. No evid of active bleeding. - no plan for repeat scope - continue PPI and supportive care - patient okay to be d/c per GI standpoint with f/u in clinic - will sign off, please call if needed Subjective Date of service: 04/21/19 Principal diagnosis: UGIB Interval history: No acute distress. N/V resolved and tolerating diet. No abd pain or signs of bleeding. Objective - Constitutional Vitals: Temp Pulse Resp BP Pulse Ox 97.9 F 70 18 157/95 98 04/21/19 06:01 04/21/19 09:40 04/21/19 06:01 04/21/19 06:01 04/21/19 06:01 General appearance: no acute distress - Respiratory Respiratory effort: normal - Cardiovascular Rhythm: regular - Gastrointestinal General gastrointestinal: Present: soft, non-tender, non-distended, normal bowel sounds - Labs CBC & Chem 7: 04/21/19 08:00 04/21/19 08:00 Labs: Laboratory Results - last 24 hr 04/20/19 04/20/19 04/20/19 14:47 16:59 21:28 WBC RBC Hgb Hct MCV MCH MCHC RDW Plt Count Percent Retic Sodium Potassium Chloride Carbon Dioxide Anion Gap BUN Creatinine Estimated GFR BUN/Creatinine Ratio Glucose POC Glucose 248 H 208 H 152 H Calcium Iron TIBC % Saturation Transferrin Ferritin Vitamin B12 Urine Total Volume Urine Creatinine Height (in) Weight (lb) Creatinine Clearance 04/20/19 04/21/19 04/21/19 Unknown 07:58 08:00 WBC 5.4 RBC 3.18 L Hgb 9.1 L Hct 26.3 L MCV 83 L MCH 29 MCHC 35 H RDW 14.9 Plt Count 297 Percent Retic Sodium Potassium Chloride Carbon Dioxide Anion Gap BUN Creatinine Estimated GFR BUN/Creatinine Ratio Glucose POC Glucose 324 H Calcium Iron TIBC % Saturation Transferrin Ferritin Vitamin B12 Urine Total Volume 1600 Urine Creatinine 106.6 H Height (in) 75.0 Weight (lb) 217.2 Creatinine Clearance 20 04/21/19 04/21/19 04/21/19 08:00 09:35 09:35 WBC RBC Hgb Hct MCV MCH MCHC RDW Plt Count Percent Retic 1.65 Sodium 132 L Potassium 4.3 Chloride 103.2 Carbon Dioxide 21 L Anion Gap 12 BUN 37 H Creatinine 4.8 H Estimated GFR 17 BUN/Creatinine Ratio 8 Glucose 298 H POC Glucose Calcium 7.4 L Iron 30 L TIBC 128 L % Saturation 23.44 Transferrin 119 L Ferritin Vitamin B12 Urine Total Volume Urine Creatinine Height (in) Weight (lb) Creatinine Clearance 04/21/19 04/21/19 09:35 09:35 WBC RBC Hgb Hct MCV MCH MCHC RDW Plt Count Percent Retic Sodium Potassium Chloride Carbon Dioxide Anion Gap BUN Creatinine Estimated GFR BUN/Creatinine Ratio Glucose POC Glucose Calcium Iron TIBC % Saturation Transferrin Ferritin 233.1 Vitamin B12 949.0 H Urine Total Volume Urine Creatinine Height (in) Weight (lb) Creatinine Clearance
[2019-04-22] MEDS: APRESOLINE PO SCH ×2 (05:55→13:25)
--- NOTE | 2019-04-22 08:02 | Discharge Summary ---
Providers - Providers Date of Admission: 04/17/19 01:00 Date of discharge: 04/22/19 Attending physician: CLEMENT CHEN 04/16/19 23:17 Consult to Physician [CONS] Stat Comment: Consulting Provider: RJ RICHARDSON Physician Instructions: Reason For Exam: upper gi bleed 04/17/19 07:28 Consult to Physician [CONS] Routine Comment: Consulting Provider: NYA MORENO Physician Instructions: Reason For Exam: Acute on CKD 04/18/19 10:23 PICC Line Insertion [Consult to PICC Line RN] [CONS] Routine Reason For Exam: PICC LINE Type Line:: PICC 04/20/19 12:12 Consult to Dietitian/Nutrition [CONS] Routine Physician Instructions: Reason For Exam: Reason for Consult: Diet education [facility] Hospital[facility] Reason for admission: N/V, UGIB Condition: Stable Hospital course: Patient is 33-year-old man with a history of hypertension, diabetes, complicated by gastroparesis, chronic kidney disease, gastric ulcer, esophagitis comes to emergency room because he has been vomiting blood for 2 days, unable to tolerate oral intake, and had coffee ground emesis. He was at [place] 4 days prior to this admission for similar symptoms, he was admitted there for 4 days, status post endoscopy does not know the results. He was seen and evaluated in Em ergency Department. Hemoglobin was 7.8 and Creatinine 5.9. He was diagnosed with acute on chronic kidney disease and upper GI bleed. He was admitted and put on Protonix drip, transfused total 3 units PRBC bringing hemoglobin to 8.7. He was seen by GI physician who recommended conservative management since he has had a recent evaluation at [place]. No evid of active bleeding. GI with no plan for repeat scope. GI reports patient okay to be d/c from there standpoint with f/u in clinic. He was also seen by a engraver automatic for the chronic kidney disease and was to creatinine remained stable. Dedicated discharge time 32 minutes. Disposition: - TO HOME OR SELFCARE Time spent for discharge: 32 - Discharge Diagnoses (1) Anemia Status: Acute (2) Upper GI bleed Status: Acute (3) Gastroparesis Status: Acute (4) Hematemesis Status: Acute (5) CKD (chronic kidney disease) Status: Chronic Qualifiers: (6) Accelerated hypertension Status: Resolved Core Measure Documentation - Palliative Care Palliative Care/ Comfort Measures: Not Applicable - Core Measures Any of the following diagnoses?: none Exam - Constitutional Vitals: Temp Pulse Resp BP Pulse Ox 98.2 F 64 18 164/92 98 04/22/19 05:17 04/22/19 05:54 04/22/19 05:54 04/22/19 05:54 04/22/19 05:54 General appearance: Present: no acute distress, well-nourished - EENT Eyes: Present: PERRL ENT: hearing intact, clear oral mucosa - Neck Neck: Present: supple, normal ROM - Respiratory Respiratory effort: normal Respiratory: bilateral: CTA - Cardiovascular Heart Sounds: Present: S1 & S2. Absent: rub, click - Extremities Extremities: pulses symmetrical, No edema Peripheral Pulses: within normal limits - Abdominal General gastrointestinal: Present: soft, non-tender, non-distended, normal bowel sounds Male genitourinary: Present: normal - Integumentary Integumentary: Present: clear, warm, dry - Musculoskeletal Musculoskeletal: gait normal, strength equal bilaterally - Psychiatric Psychiatric: appropriate mood/affect, intact judgment & insight - Neurologic Neurologic: CNII-XII intact, moves all extremities Plan Activity: no restrictions Weight Bearing Status: Full Weight Bearing Follow up with: SANCHEZ NANCE MD [Primary Care Provider] - 3-5 Days Forms: Accompanied Note Prescriptions: hydrALAZINE [Apresoline TAB] 100 mg PO Q8HR #90 tab Hydralazine HCl 50 mg PO TID 30 Days #90 tablet amLODIPine [Norvasc] 10 mg PO QDAY #30 tablet Pantoprazole [Protonix TAB] 40 mg PO BID #60 tablet Sodium Bicarbonate 1,300 mg PO BID #60 tablet
[2019-04-22] MEDS: HumaLOG SUB-Q SCH ×2 (09:03→12:42)
[2019-04-22] MEDS: SODIUM BICARBONATE PO SCH (10:55)
[2019-04-22] MEDS: NORVASC PO SCH (10:55)
[2019-04-22] MEDS: SODIUM CHLORIDE FLUSH SYRINGE 10 ML IV SCH (10:56)
[2019-04-22] MEDS: PROTONIX PO SCH (10:56)
[2019-04-22] MEDS ORDERED: TRIPLE ANTIBIOTIC TP ONE (13:15)
[2019-04-22 13:26] VITALS: BP 121/85
[2019-04-22] MEDS ORDERED: CATAPRES PO SCH (14:00)
[2019-04-22 20:22] LABS: Myeloperoxidase Antibody <1.0 AI (<1.0)
== END 2019-04-22 14:10 | disposition home or self-care (01) | DRG 682 ==
LOC: ED 20:31 → 4A 04-17 01:00 → 3A 04-20 16:26
PROVIDERS: ADMIT Internal Medicine; ATTEND Hospitalist
PROC: 30233N1 Transfusion of Nonautologous Red Blood Cells into Peripheral Vein, Percutaneous Approach (ICD-10-PCS; principal; 2019-04-17)
PROC: 02HV33Z Insertion of Infusion Device into Superior Vena Cava, Percutaneous Approach (ICD-10-PCS; 2019-04-18)
DX: N17.9 Acute kidney failure, unspecified (principal); K22.11 Ulcer of esophagus with bleeding; K29.71 Gastritis, unspecified, with bleeding; E87.2 Acidosis; D62 Acute posthemorrhagic anemia; E87.1 Hypo-osmolality and hyponatremia; E11.22 Type 2 diabetes mellitus with diabetic chronic kidney disease; E11.43 Type 2 diabetes mellitus with diabetic autonomic (poly)neuropathy; I16.0 Hypertensive urgency; I12.9 Hypertensive chronic kidney disease with stage 1 through stage 4 chronic kidney disease, or unspecified chronic kidney disease; K31.84 Gastroparesis; J45.909 Unspecified asthma, uncomplicated; E86.9 Volume depletion, unspecified; N18.3 Chronic kidney disease, stage 3 (moderate); Z90.49 Acquired absence of other specified parts of digestive tract; Z82.49 Family history of ischemic heart disease and other diseases of the circulatory system; Z79.899 Other long term (current) drug therapy; Z79.4 Long term (current) use of insulin
CPT/HCPCS: 36415; 36430; 71045; 74176; 76770; 80048; 80053; 80061; 80074; 80076; 81001; 82565; 82570; 82575; 82607; 82728; 82962; 83550; 83690; 84484; 85007; 85025; 85027; 85045; 85610; 85730; 86021; 86160; 86334; 86850; 86900; 86901; 86920; 93005; 93010; 96374; G0378; A6250; C9113; J0360; J0885; J1815; J2060; J2270; J2405; J2765; J7030; J7040; P9016; Q0162

== ENCOUNTER 2019-08-21 09:31 | Inpatient (IN) | payer OTHER ==
--- NOTE | 2019-08-21 10:06 | Emergency Department Report ---
ED GI Bleed HPI - General Chief complaint: GI Bleed Stated complaint: VOMITING BLOOD Time Seen by Provider: 08/21/19 10:04 Source: patient, EMS Mode of arrival: Stretcher Limitations: No Limitations - Related Data Previous Rx's Medication Instructions Recorded Last Taken Type Insulin NPH/Regular [NovoLIN 70/30] 7 unit SQ BIDDIAB #1 vial 11/26/18 Unknown Rx Insulin Regular, Human [Novolin R] 1 dose SQ ACHS PRN #1 vial 11/26/18 Unknown Rx Hydralazine HCl 50 mg PO TID 30 Days #90 tablet 04/22/19 Unknown Rx Pantoprazole [Protonix TAB] 40 mg PO BID #60 tablet 04/22/19 Unknown Rx Sodium Bicarbonate 1,300 mg PO BID #60 tablet 04/22/19 Unknown Rx amLODIPine [Norvasc] 10 mg PO QDAY #30 tablet 04/22/19 Unknown Rx hydrALAZINE [Apresoline TAB] 100 mg PO Q8HR #90 tab 04/22/19 Unknown Rx Allergies Allergy/AdvReac Type Severity Reaction Status Date / Time No Known Allergies Allergy Verified 11/21/18 17:51 ED Review of Systems ROS: Stated complaint: VOMITING BLOOD Other details as noted in HPI ED Past Medical Hx - Past Medical History Hx Hypertension: Yes Hx Heart Attack/AMI: No Hx Congestive Heart Failure: No Hx Diabetes: Yes Hx Deep Vein Thrombosis: No Hx Asthma: Yes Hx COPD: No Hx HIV: No Additional medical history: Ulcerative esophagitis, Gastroparesis - Surgical History Hx Pacemaker: No Hx Internal Defibrillator: No Hx Appendectomy: Yes Additional Surgical History: right great toe removed - Social History Smoking Status: Never Smoker Substance Use Type: Alcohol - Medications Home Medications: Home Medications Medication Instructions Recorded Confirmed Last Taken Type Insulin NPH/Regular [NovoLIN 70/30] 7 unit SQ BIDDIAB #1 vial 11/26/18 04/17/19 Unknown Rx Insulin Regular, Human [Novolin R] 1 dose SQ ACHS PRN #1 vial 11/26/18 04/17/19 Unknown Rx Hydralazine HCl 50 mg PO TID 30 Days #90 tablet 04/22/19 Unknown Rx Pantoprazole [Protonix TAB] 40 mg PO BID #60 tablet 04/22/19 Unknown Rx Sodium Bicarbonate 1,300 mg PO BID #60 tablet 04/22/19 Unknown Rx amLODIPine [Norvasc] 10 mg PO QDAY #30 tablet 04/22/19 Unknown Rx hydrALAZINE [Apresoline TAB] 100 mg PO Q8HR #90 tab 04/22/19 Unknown Rx ED Physical Exam - General Limitations: No Limitations ED Course Vital Signs 08/21/19 09:52 Temperature 98.9 F Pulse Rate 114 H Respiratory 20 Rate Blood Pressure 222/129 O2 Sat by Pulse 100 Oximetry Critical care attestation.: If time is entered above; I have spent that time in minutes in the direct care of this critically ill patient, excluding procedure time. ED Disposition Condition: Stable
[2019-08-21] MEDS ORDERED: ONDANSETRON 4 MG/2 ML INJ IV ONE (10:11)
[2019-08-21] MEDS ORDERED: PANTOPRAZOLE 40 MG INJ IV ONE ×2 (10:12→12:18)
[2019-08-21] MEDS ORDERED: hydrALAZINE 20 MG/1 ML INJ IV ONE ×2 (10:12→13:10)
--- NOTE | 2019-08-21 10:22 | Emergency Department Report ---
HPI - General Chief Complaint: GI Bleed Time Seen by Provider: 08/21/19 10:04 - HPI HPI: 33-year-old -Portuguese male presents to the emergency department via EMS from home with complaint of abdominal pain, nausea, vomiting and vomiting of blood that has been going on over the past 3 days. The patient does have a history of ulcerative esophagitis, gastroparesis, CK D without hemodialysis, diabetes, hypertension. The patient was seen here in April of this year for similar symptoms. He did not take anything for his symptoms prior to arrival. He does not have a primary care physician or it web development consultant. Currently, the patient is just nodding/shaking his head to answer questions. He did have an episode of vomiting with hematemesis upon arrival to the emergency department. ED Past Medical Hx - Past Medical History Hx Hypertension: Yes Hx Heart Attack/AMI: No Hx Congestive Heart Failure: No Hx Diabetes: Yes Hx Deep Vein Thrombosis: No Hx Asthma: Yes Hx COPD: No Hx HIV: No Additional medical history: Ulcerative esophagitis, Gastroparesis - Surgical History Hx Pacemaker: No Hx Internal Defibrillator: No Hx Appendectomy: Yes Additional Surgical History: right great toe removed - Social History Smoking Status: Never Smoker Substance Use Type: Alcohol - Medications Home Medications: Home Medications Medication Instructions Recorded Confirmed Last Taken Type Insulin NPH/Regular [NovoLIN 70/30] 7 unit SQ BIDDIAB #1 vial 11/26/18 04/17/19 Unknown Rx Insulin Regular, Human [Novolin R] 1 dose SQ ACHS PRN #1 vial 11/26/18 04/17/19 Unknown Rx Hydralazine HCl 50 mg PO TID 30 Days #90 tablet 04/22/19 Unknown Rx Pantoprazole [Protonix TAB] 40 mg PO BID #60 tablet 04/22/19 Unknown Rx Sodium Bicarbonate 1,300 mg PO BID #60 tablet 04/22/19 Unknown Rx amLODIPine [Norvasc] 10 mg PO QDAY #30 tablet 04/22/19 Unknown Rx hydrALAZINE [Apresoline TAB] 100 mg PO Q8HR #90 tab 04/22/19 Unknown Rx ED Review of Systems ROS: Stated complaint: VOMITING BLOOD Other details as noted in HPI Comment: All other systems reviewed and negative Constitutional: denies: chills, fever Eyes: denies: eye pain, vision change Respiratory: denies: cough, shortness of breath Cardiovascular: denies: chest pain, palpitations Gastrointestinal: abdominal pain, nausea, vomiting, hematemesis Physical Exam - Physical Exam Vital Signs: Vital Signs 08/21/19 09:52 Temperature 98.9 F Pulse Rate 114 H Respiratory 20 Rate Blood Pressure 222/129 O2 Sat by Pulse 100 Oximetry Physical Exam: GENERAL: Patient is seen and vomiting some dark coffee-ground emesis. HENT: Normocephalic. Atraumatic. Patient has moist mucous membranes. EYES: Extraocular motions are intact. NECK: Supple. Trachea is midline. CHEST/LUNGS: Clear to auscultation. There is no respiratory distress noted. HEART/CARDIOVASCULAR: Regular. There is mild tachycardia. There is no murmur. ABDOMEN: Abdomen is soft midline and epigastric tenderness to palpation. No guarding. Patient has normal bowel sounds. There is no abdominal distention. SKIN: Skin is warm and dry. NEURO: The patient is awake, alert. Follows commands. Withdraws from painful stimuli. MUSCULOSKELETAL: There is no tenderness or deformity. There is no evidence of acute injury. ED Course Vital Signs 08/21/19 09:52 Temperature 98.9 F Pulse Rate 114 H Respiratory 20 Rate Blood Pressure 222/129 O2 Sat by Pulse 100 Oximetry - Consultations Consultation #1: I spoke with the it web development consultant on-call, Dr. Lagunas, to let him know the patient's admission and his presentation for coffee ground hematemesis. They will see the patient has a consult. 08/21/19 13:58 ED Medical Decision Making - Lab Data Result diagrams: 08/21/19 10:29 08/21/19 10:29 - Radiology Data Radiology results: image reviewed interpreted by me: Chest x-ray does not show any acute process. There are no pleural effusions, obvious pneumonia and there is no pneumothorax. Abdominal x-ray shows nonspecific nonobstructive bowel gas - Medical Decision Making Patient presents with 3 days of upper abdominal pain and nausea with vomiting and now has some dark coffee-ground hematemesis. He did have a few episodes of this upon presentation to the emergency department. He does have anemia with hemoglobin of 8.5 which is slightly decreased from his last visit in April. He has some acute on chronic renal insufficiency/failure. Patient also presents with hypertensive urgency. He was given Protonix bolus and drip, antihypertensive medication and antiemetics. Patient will be admitted to the hospital for further evaluation and treatment, as well as a GI consult, and the patient was accepted for admission by the hospitalist, Dr. Gaytan. - Differential Diagnosis esophagitis, Ayaka-Cevallos tear, variceal Critical Care Time: No Critical care attestation.: If time is entered above; I have spent that time in minutes in the direct care of this critically ill patient, excluding procedure time. ED Disposition Clinical Impression: Upper GI bleed, Intractable nausea and vomiting, Gastroparesis, Acute on chronic renal insufficiency, Hematemesis, Hypertensive urgency Disposition: DC-09 OP ADMIT IP TO THIS HOSP Is pt being admited?: Yes Condition: Fair Referrals: PRIMARY CARE, [Primary Care Provider] - 3-5 Days Forms: Accompanied Note Time of Disposition: 13:12
[2019-08-21 10:59] LABS: Basophils # (Auto) 0.1 K/mm3 (0.0-0.1); Basophils % (Auto) 0.8 % (0.0-1.8); Hematocrit 25.1 % (35.5-45.6); Hemoglobin 8.5 gm/dl (11.8-15.2); Lymphocytes # (Auto) 1.1 K/mm3 (1.2-5.4); Lymphocytes % (Auto) 10.2 % (13.4-35.0); Mean Corpuscular HGB Conc 34 % (32-34); Mean Corpuscular Volume 83 fl (84-94); Monocytes # (Auto) 0.4 K/mm3 (0.0-0.8); Monocytes % (Auto) 3.5 % (0.0-7.3); Platelet Count 469 K/mm3 (140-440); Red Blood Count 3.02 M/mm3 (3.65-5.03); Red Cell Distribution Width 14.7 % (13.2-15.2)
--- NOTE | 2019-08-21 11:04 | XRay Report ---
ABDOMINAL SERIES WITH CHEST X-RAY ONE VIEW HISTORY: Abdominal pain, hematemesis, upper GI bleed FINDINGS: No comparison. Single view of the chest is within normal limits. Supine and upright views the abdomen demonstrate a normal bowel gas pattern. No dilated bowel, fluid levels or free air. No pathologic ca lcifications. IMPRESSION: Normal exam. Signer Name: Jakub Dupree Jr, MD Signed: 08/21/2019 11:00 AM Workstation Name: [id number]
[2019-08-21 11:05] LABS: INR 1.12 (0.87-1.13)
[2019-08-21 11:06] LABS: Partial Thromboplastin Time 34.3 Sec. (24.2-36.6)
[2019-08-21 11:17] LABS: Albumin 2.5 g/dL (3.9-5); Calcium 8.5 mg/dL (8.4-10.2)
[2019-08-21] MEDS ORDERED: ONDANSETRON 4 MG/2 ML INJ ONE (12:18)
[2019-08-21] MEDS ORDERED: hydrALAZINE 20 MG/1 ML INJ ONE (12:19)
[2019-08-21] MEDS ORDERED: LABETALOL 20 MG/4 ML INJ IV ONE ×2 (13:56→14:23)
[2019-08-21] MEDS ORDERED: PANTOPRAZOLE 80 MG in SODIUM CHLORIDE 0.9% 100 ML IV SCH (14:00)
--- NOTE | 2019-08-21 14:08 | Gastroenterology Consultation ---
History of Present Illness - Reason for Consult Consult date: 08/21/19 Coffee ground emesis Requesting physician: CIARA ESTRADA - History of Present Illness The patient is a 33 yo aam with h/o ulcerative esophagitis presenting with abdominal/chest pain, htn, and coffee ground emesis. pt reports having abd/chest pain x 3 days. Symptoms similar to prior presentations. he has had coffee ground emesis during same time frame, similar to past presentations. he has had recent endoscopy at [facility] which showed ulcerative esophagitis. His H/H on admission similar to his baseline. Emesis episodes in ED revealed dark brown color without blood. He has a h/o gastroparesis, poorly controlled dm, and CKD not on dialysis (creatinine 11 on admission). Denies nsaid use Past History Past Medical History: diabetes, hypertension, renal failure Past Surgical History: No surgical history Social history: no significant social history Family history: no significant family history Medications and Allergies Allergies Allergy/AdvReac Type Severity Reaction Status Date / Time No Known Allergies Allergy Verified 11/21/18 17:51 Home Medications Medication Instructions Recorded Confirmed Last Taken Type Insulin NPH/Regular [NovoLIN 70/30] 7 unit SQ BIDDIAB #1 vial 11/26/18 04/17/19 Unknown Rx Insulin Regular, Human [Novolin R] 1 dose SQ ACHS PRN #1 vial 11/26/18 04/17/19 Unknown Rx Hydralazine HCl 50 mg PO TID 30 Days #90 tablet 04/22/19 Unknown Rx Pantoprazole [Protonix TAB] 40 mg PO BID #60 tablet 04/22/19 Unknown Rx Sodium Bicarbonate 1,300 mg PO BID #60 tablet 04/22/19 Unknown Rx amLODIPine [Norvasc] 10 mg PO QDAY #30 tablet 04/22/19 Unknown Rx hydrALAZINE [Apresoline TAB] 100 mg PO Q8HR #90 tab 04/22/19 Unknown Rx Active Meds: Active Medications Pantoprazole Sodium 80 mg/ (Sodium Chloride) 100 mls @ 10 mls/hr IV DIRECT KESHIA Revoewed/updated patient's home and current medications Review of Systems - Review of Systems All systems: negative (per HPI) Exam - Constitutional Vital Signs: Temp Pulse Resp BP Pulse Ox 98.9 F 114 H 18 190/106 99 08/21/19 09:52 08/21/19 13:30 08/21/19 11:51 08/21/19 13:30 08/21/19 11:51 General appearance: mild distress - EENT Eyes: PERRL ENT: hearing intact - Respiratory Respiratory effort: normal Respiratory: bilateral: CTA - Cardiovascular Rhythm: regular Heart Sounds: Present: S1 & S2 - Gastrointestinal General gastrointestinal: Present: soft, tender, non-distended, normal bowel sounds - Integumentary Integumentary: Present: clear, warm - Neurologic Neurological: alert and oriented x3 - Psychiatric Psychiatric: appropriate mood/affect - Labs CBC & Chem 7: 08/21/19 10:29 08/21/19 10:29 Lab Results: Laboratory Results - last 24 hr 08/21/19 08/21/19 08/21/19 10:20 10:20 10:29 WBC 10.7 RBC 3.02 L Hgb 8.5 L Hct 25.1 L MCV 83 L MCH 28 MCHC 34 RDW 14.7 Plt Count 469 H Lymph % (Auto) 10.2 L [place] % (Auto) 3.5 Eos % (Auto) 0.0 Baso % (Auto) 0.8 Lymph # 1.1 L [place] # 0.4 Eos # 0.0 Baso # 0.1 Seg Neutrophils % 85.5 H Seg Neutrophils # 9.2 H PT 14.1 INR 1.12 APTT 34.3 Sodium Potassium Chloride Carbon Dioxide Anion Gap BUN Creatinine Estimated GFR BUN/Creatinine Ratio Glucose Calcium Total Bilirubin AST ALT Alkaline Phosphatase Total Protein Albumin Albumin/Globulin Ratio Blood Type O POSITIVE Antibody Screen Negative 08/21/19 10:29 WBC RBC Hgb Hct MCV MCH MCHC RDW Plt Count Lymph % (Auto) [place] % (Auto) Eos % (Auto) Baso % (Auto) Lymph # [place] # Eos # Baso # Seg Neutrophils % Seg Neutrophils # PT INR APTT Sodium 147 H Potassium 4.1 Chloride 107.3 H Carbon Dioxide 15 L Anion Gap 29 BUN 68 H Creatinine 11.5 H Estimated GFR 6 BUN/Creatinine Ratio 6 Glucose 305 H Calcium 8.5 Total Bilirubin 0.30 AST 16 ALT 9 Alkaline Phosphatase 57 Total Protein 6.0 L Albumin 2.5 L Albumin/Globulin Ratio 0.7 Blood Type Antibody Screen Assessment and Plan 1. Abdominal pain, nausea/vomiting 2. Coffee ground emesis 3. H/o ulcerative esophagitis 4. poorly controlled diabetes complicated by gastroparesis -pt with acute on chronic renal failure; abd pain with n/v, ? related to renal failure vs gastroparesis/poorly controlled dm. emesis episodes with dark brown material, no blood and H/H within baseline. supportive/conservative care from gi stand point unless change in clinical course. PPI IV, trend labs, and diabetes control per primary. will follow
--- NOTE | 2019-08-21 23:20 | History and Physical Report ---
History of Present Illness Date of examination: 08/21/19 Date of admission: 08/21/19 13:12 Chief complaint: Vomiting coffee ground emesisx3 since AM History of present illness: 33-year-old -Salvad[place] male presents to the emergency department via EMS from home with complaint of abdominal pain, nausea, vomiting and vomiting of blood that has been going on over the past 3 days. The patient does have a history of ulcerative esophagitis, gastroparesis, CK D without hemodialysis, diabetes, hypertension. The patient was seen here in April of this year for similar symptoms. He did not take anything for his symptoms prior to arrival. He does not have a primary care physician or pictures editor. Currently, the patient is just nodding/shaking his head to answer questions. He did have an episode of vomiting with hematemesis upon arrival to the emergency department. Past Medical History Hypertension Diabetes-Insulin dependent Asthma Additional medical history: Ulcerative esophagitis, Gastroparesis Surgical History Hx Appendectomy: Yes Additional Surgical History: right great toe removed Social History Smoking Status: Never Smoker Substance Use Type: Alcohol Family history Htn - Medications Home Medications: Home Medications Medication Instructions Recorded Confirmed Last Taken Type Insulin NPH/Regular [NovoLIN 70/30] 7 unit SQ BIDDIAB #1 vial 11/26/18 04/17/19 Unknown Rx Insulin Regular, Human [Novolin R] 1 dose SQ ACHS PRN #1 vial 11/26/18 04/17/19 Unknown Rx Hydralazine HCl 50 mg PO TID 30 Days #90 tablet 04/22/19 Unknown Rx Pantoprazole [Protonix TAB] 40 mg PO BID #60 tablet 04/22/19 Unknown Rx Sodium Bicarbonate 1,300 mg PO BID #60 tablet 04/22/19 Unknown Rx amLODIPine [Norvasc] 10 mg PO QDAY #30 tablet 04/22/19 Unknown Rx hydrALAZINE [Apresoline TAB] 100 mg PO Q8HR #90 tab 04/22/19 Unknown Rx Review of Systems ROS: Stated complaint: VOMITING BLOOD Other details as noted in HPI Comment: All other systems reviewed and negative Constitutional: denies: chills, fever Eyes: denies: eye pain, vision change Respiratory: denies: cough, shortness of breath Cardiovascular: denies: chest pain, palpitations Gastrointestinal: abdominal pain, nausea, vomiting, hematemesis Past History Past Medical History: diabetes, hypertension, renal failure Past Surgical History: No surgical history Social history: no significant social history Family history: no significant family history Medications and Allergies Allergies Allergy/AdvReac Type Severity Reaction Status Date / Time No Known Allergies Allergy Verified 11/21/18 17:51 Home Medications Medication Instructions Recorded Confirmed Last Taken Type ALBUTEROL Inhaler (OR & NICU) 1 puff IH Q4H PRN 08/21/19 08/21/19 Unknown History [Proair] Carvedilol [Coreg] 25 mg PO Q12H 08/21/19 08/21/19 Unknown History Furosemide [Lasix TAB] 40 mg PO BID 08/21/19 08/21/19 Unknown History Lisinopril [Zestril] 5 mg PO QDAY 08/21/19 08/21/19 Unknown History Metoclopramide [Reglan ORAL LIQ] 10 mg PO QID 08/21/19 08/21/19 Unknown History Pantoprazole [Protonix TAB] 40 mg PO BIDAC 08/21/19 08/21/19 Unknown History hydrALAZINE [Apresoline] 25 mg PO Q8HR 08/21/19 08/21/19 Unknown History Active Meds: Active Medications Pantoprazole Sodium 80 mg/ (Sodium Chloride) 100 mls @ 10 mls/hr IV DIRECT KESHIA Last Admin: 08/21/19 14:28 Dose: 8 mg/hr, 10 mls/hr Documented by: Exam - Constitutional Vitals: Temp Pulse Resp BP Pulse Ox 98.6 F 106 H 18 177/93 100 08/21/19 21:44 08/21/19 21:44 08/21/19 21:44 08/21/19 21:44 08/21/19 21:44 General appearance: Present: mild distress, well-nourished - EENT Eyes: Present: PERRL ENT: hearing intact, clear oral mucosa - Neck Neck: Present: supple, normal ROM - Respiratory Respiratory effort: normal Respiratory: bilateral: CTA - Cardiovascular Heart rate: 78 Rhythm: regular Heart Sounds: Present: S1 & S2. Absent: rub, click - Extremities Extremities: no ischemia, pulses intact, pulses symmetrical, No edema Peripheral Pulses: within normal limits - Abdominal General gastrointestinal: Present: soft, tender, non-distended, normal bowel sounds Localized gastrointestinal: tender: epigastric periumbilical, guarding: epig astric periumbilical Male genitourinary: Present: normal - Rectal Rectal Exam: stool brown - Integumentary Integumentary: Present: clear, warm, dry - Musculoskeletal Musculoskeletal: gait normal, strength equal bilaterally - Psychiatric Psychiatric: appropriate mood/affect, intact judgment & insight - Neurologic Neurologic: CNII-XII intact, moves all extremities - Allied Health Allied health notes reviewed: nursing, case management Results - Labs CBC & Chem 7: 08/21/19 10:08/21/19 10:29 Labs: Laboratory Last Values WBC 10.7 K/mm3 (4.5-11.0) 08/21/19 10: RBC 3.02 M/mm3 (3.65-5.03) L 08/21/19 10: Hgb 8.5 gm/dl (11.8-15.2) L 08/21/19 10: Hct 25.1 % (35.5-45.6) L 08/21/19 10: MCV 83 fl (84-94) L 08/21/19 10:29 MCH 28 pg (28-32) 08/21/19 10: MCHC 34 % (32-34) 08/21/19 10: RDW 14.7 % (13.2-15.2) 08/21/19 10: Plt Count 469 K/mm3 (140-440) H 08/21/19 10:29 Lymph % (Auto) 10.2 % (13.4-35.0) L 08/21/19 10: [place] % (Auto) 3.5 % (0.0-7.3) 08/21/19 10:29 Eos % (Auto) 0.0 % (0.0-4.3) 08/21/19 10:29 Baso % (Auto) 0.8 % (0.0-1.8) 08/21/19 10: Lymph # 1.1 K/mm3 (1.2-5.4) L 08/21/19 10:29 [place] # 0.4 K/mm3 (0.0-0.8) 08/21/19 10:29 Eos # 0.0 K/mm3 (0.0-0.4) 08/21/19 10:29 Baso # 0.1 K/mm3 (0.0-0.1) 08/21/19 10:29 Seg Neutrophils % 85.5 % (40.0-70.0) H 08/21/19 10:29 Seg Neutrophils # 9.2 K/mm3 (1.8-7.7) H 08/21/19 10:29 PT 14.1 Sec. (12.2-14.9) 08/21/19 10:20 INR 1.12 (0.87-1.13) 08/21/19 10:20 APTT 34.3 Sec. (24.2-36.6) 08/21/19 10:20 Sodium 147 mmol/L (137-145) H 08/21/19 10:29 Potassium 4.1 mmol/L (3.6-5.0) 08/21/19 10:29 Chloride 107.3 mmol/L (98-107) H 08/21/19 10:29 Carbon Dioxide 15 mmol/L (22-30) L 08/21/19 10:29 Anion Gap 29 mmol/L 08/21/19 10:29 BUN 68 mg/dL (9-20) H 08/21/19 10:29 Creatinine 11.5 mg/dL (0.8-1.5) H 08/21/19 10:29 Estimated GFR 6 ml/min 08/21/19 10:29 BUN/Creatinine Ratio 6 % 08/21/19 10:29 Glucose 305 mg/dL (75-100) H 08/21/19 10:29 Calcium 8.5 mg/dL (8.4-10.2) 08/21/19 10:29 Total Bilirubin 0.30 mg/dL (0.1-1.2) 08/21/19 10:29 AST 16 units/L (5-40) 08/21/19 10:29 ALT 9 units/L (7-56) 08/21/19 10:29 Alkaline Phosphatase 57 units/L (35-129) 08/21/19 10:29 Total Protein 6.0 g/dL (6.3-8.2) L 08/21/19 10:29 Albumin 2.5 g/dL (3.9-5) L 08/21/19 10:29 Albumin/Globulin Ratio 0.7 % 08/21/19 10:29 Blood Type O POSITIVE 08/21/19 10:20 Antibody Screen Negative 08/21/19 10:20 Short CBC 08/21/19 Range/Units 10:29 WBC 10.7 (4.5-11.0) K/mm3 Hgb 8.5 L (11.8-15.2) gm/dl Hct 25.1 L (35.5-45.6) % Plt Count 469 H (140-440) K/mm3 BMP 08/21/19 10:29 Sodium 147 H Potassium 4.1 Chloride 107.3 H Carbon Dioxide 15 L BUN 68 H Creatinine 11.5 H Glucose 305 H Calcium 8.5 Liver Function 08/21/19 Range/Units 10:29 Total Bilirubin 0.30 (0.1-1.2) mg/dL AST 16 (5-40) units/L ALT 9 (7-56) units/L Alkaline Phosphatase 57 (35-129) units/L Albumin 2.5 L (3.9-5) g/dL - Imaging and Cardiology EKG: report reviewed Chest x-ray: report reviewed (NAF) CT scan - abdomen: report reviewed (NAF) Assessment and Plan Advance Directives: Yes (Full code) VTE prophylaxis?: Chemical, Mechanical Plan of care discussed with patient/family: Yes - Patient Problems (1) Upper GI bleed Current Visit: Yes Status: Acute Plan to address problem: IV protonix drip IV zofran and IV Reglan (2) Gastroparesis Current Visit: Yes Status: Acute Plan to address problem: IV Reglan and IV Zofran for now (3) IDDM (insulin dependent diabetes mellitus) Current Visit: Yes Status: Chronic Plan to address problem: Accu cheks q6 and Moderae dose s/s Insulin protocol. (4) HTN (hypertension) Current Visit: Yes Status: Chronic Qualifiers: Hypertension type: essential hypertension Qualified Code(s): I10 - Essential (primary) hypertension Plan to address problem: Hold oral antihypertensives Catapress TTs 2 patch (5) Asthma Current Visit: Yes Status: Inactive Qualifiers: Asthma severity: mild Plan to address problem: Albuterol MDI qid prn (6) Anemia Current Visit: Yes Status: Chronic Qualifiers: Anemia type: due to chronic kidney disease Chronic kidney disease stage: stage 5, not on chronic dialysis Qualified Code(s): N18.5 - Chronic kidney disease, stage 5; D63.1 - Anemia in chronic kidney disease Plan to address problem: Sec to ESRD Monitor H/H and transfuse as necessary (7) Hypernatremia Current Visit: Yes Status: Acute Plan to address problem: Volume depleted?? IV NS at 42 cc/hr (8) Malnutrition Current Visit: Yes Status: Chronic Qualifiers: Malnutrition type: protein-calorie malnutrition Protein-calorie malnutrition severity: severe Qualified Code(s): E43 - Unspecified severe protein-calorie malnutrition Plan to address problem: Dietitian consult (9) DVT prophylaxis Current Visit: Yes Status: Acute Plan to address problem: SCd's only and GI prophylaxis
[2019-08-21] MEDS ORDERED: ALBUTEROL 8.5 GM INHALATION IH PRN (23:51)
[2019-08-22] MEDS ORDERED: ALBUTEROL 2.5 MG/3 ML NEBU IH PRN (00:01)
[2019-08-22] MEDS ORDERED: METOCLOPRAMIDE 10 MG/2 ML INJ IV PRN ×3 (00:20→12:32)
[2019-08-22] MEDS ORDERED: SODIUM CHLORIDE 0.9% 1000 ML 1,000 ML IV SCH (01:00)
[2019-08-22] MEDS: INSULIN LISPRO 100 UNIT/ML SUB-Q SCH ×5 (01:27→22:23)
[2019-08-22 02:04] LABS: Hematocrit 23.5 % (35.5-45.6); Hemoglobin 7.9 gm/dl (11.8-15.2)
[2019-08-22] MEDS: ONDANSETRON 4 MG/2 ML INJ IV PRN ×3 (02:52→22:35)
--- NOTE | 2019-08-22 08:27 | Progress Note ---
Assessment and Plan Assessment and plan: Upper GI bleed IV protonix drip IV zofran and IV Reglan GI consulted Gastroparesis IV Reglan and IV Zofran for now IDDM (insulin dependent diabetes mellitus) Accu cheks q6 and Moderae dose s/s Insulin protocol. Hypertension Hold oral antihypertensives Catapress TTs 2 patch Asthma Albuterol MDI qid prn Anemia due to acute blood loss from GI bleed and ESRD Hgb 7.1 Transfuse 1 unit PRBC Hypernatremia Volume depleted?? IV NS at 42 cc/hr Malnutrition Dietitian consult DVT prophylaxis SCd's only and GI prophylaxis History Interval history: Patient admitted with GI bleed Vomited blood Hospitalist Physical - Physical exam Narrative exam: Gen: Not in acute distress, lying in bed, HEENT: Normocephalic, atraumatic Neck: supple, no JVD Heart: S1 and S2 reg, no murmurs, rubs or gallop Lungs: Clear to auscultation, no rhonchi, no wheeze Abd: soft, non tender, non distended, normal BS, Ext: No edema, no clubbing, no cyanosis Neuro: Awake, alert, oriented X 3, no focal neurological signs - Constitutional Vitals: Temp Pulse Resp BP Pulse Ox 99.0 F 123 H 18 151/111 99 08/22/19 04:05 08/22/19 04:05 08/22/19 04:05 08/22/19 04:05 08/22/19 04:05 Results - Labs CBC & Chem 7: 08/22/19 08:57 08/21/19 10:29 Labs: Laboratory Last Values WBC 10.7 K/mm3 (4.5-11.0) 08/21/19 10:29 RBC 3.02 M/mm3 (3.65-5.03) L 08/21/19 10:29 Hgb 7.9 gm/dl (11.8-15.2) L 08/22/19 01:46 Hct 23.5 % (35.5-45.6) L 08/22/19 01:46 MCV 83 fl (84-94) L 08/21/19 10:29 MCH 28 pg (28-32) 08/21/19 10:29 MCHC 34 % (32-34) 08/21/19 10:29 RDW 14.7 % (13.2-15.2) 08/21/19 10:29 Plt Count 469 K/mm3 (140-440) H 08/21/19 10:29 Lymph % (Auto) 10.2 % (13.4-35.0) L 08/21/19 10:29 [place] % (Auto) 3.5 % (0.0-7.3) 08/21/19 10:29 Eos % (Auto) 0.0 % (0.0-4.3) 08/21/19 10:29 Baso % (Auto) 0.8 % (0.0-1.8) 08/21/19 10:29 Lymph # 1.1 K/mm3 (1.2-5.4) L 08/21/19 10:29 [place] # 0.4 K/mm3 (0.0-0.8) 08/21/19 10:29 Eos # 0.0 K/mm3 (0.0-0.4) 08/21/19 10:29 Baso # 0.1 K/mm3 (0.0-0.1) 08/21/19 10:29 Seg Neutrophils % 85.5 % (40.0-70.0) H 08/21/19 10:29 Seg Neutrophils # 9.2 K/mm3 (1.8-7.7) H 08/21/19 10:29 PT 14.1 Sec. (12.2-14.9) 08/21/19 10:20 INR 1.12 (0.87-1.13) 08/21/19 10:20 APTT 34.3 Sec. (24.2-36.6) 08/21/19 10:20 Sodium 147 mmol/L (137-145) H 08/21/19 10:29 Potassium 4.1 mmol/L (3.6-5.0) 08/21/19 10:29 Chloride 107.3 mmol/L (98-107) H 08/21/19 10:29 Carbon Dioxide 15 mmol/L (22-30) L 08/21/19 10:29 Anion Gap 29 mmol/L 08/21/19 10:29 BUN 68 mg/dL (9-20) H 08/21/19 10:29 Creatinine 11.5 mg/dL (0.8-1.5) H 08/21/19 10:29 Estimated GFR 6 ml/min 08/21/19 10:29 BUN/Creatinine Ratio 6 % 08/21/19 10:29 Glucose 305 mg/dL (75-100) H 08/21/19 10:29 POC Glucose 326 (70-105) H 08/22/19 01:21 Calcium 8.5 mg/dL (8.4-10.2) 08/21/19 10:29 Total Bilirubin 0.30 mg/dL (0.1-1.2) 08/21/19 10:29 AST 16 units/L (5-40) 08/21/19 10:29 ALT 9 units/L (7-56) 08/21/19 10:29 Alkaline Phosphatase 57 units/L (35-129) 08/21/19 10:29 Total Protein 6.0 g/dL (6.3-8.2) L 08/21/19 10:29 Albumin 2.5 g/dL (3.9-5) L 08/21/19 10:29 Albumin/Globulin Ratio 0.7 % 08/21/19 10:29 Blood Type O POSITIVE 08/21/19 10:20 Antibody Screen Negative 08/21/19 10:20 Active Medications - Current Medications Current Medications: Generic Name Dose Route Start Last Admin Trade Name Freq PRN Reason Stop Dose Admin Albuterol 2.5 mg 08/22/19 00:01 Proventil IH Q4HRT PRN Shortness Of Breath Clonidine HCl 0.3 mg 08/22/19 10:00 Catapres-Tts Patch TD Sa KESHIA Pantoprazole Sodium 80 mg/ 100 mls @ 10 mls/hr 08/21/19 14:00 08/21/19 14:28 Sodium Chloride IV 8 mg/hr DIRECT KESHIA 10 mls/hr Administration 8 MG/HR Sodium Chloride 1,000 mls @ 45 mls/hr 08/22/19 01:00 Nacl 0.9% 1000 Ml IV DIRECT KESHIA Insulin Human Lispro 0 unit 08/22/19 00:00 08/22/19 06:08 Humalog SUB-Q 3 unit Q6HR KESHIA Administration Protocol Metoclopramide HCl 5 mg 08/22/19 00:26 Reglan IV Q6H PRN Nausea And Vomiting Ondansetron HCl 4 mg 08/21/19 23:10 10/12/19 02:52 Zofran IV 4 mg Q6H PRN Administration Nausea And Vomiting
--- NOTE | 2019-08-22 08:32 | Consultation ---
History of Present Illness - Reason for Consult Consult date: 08/22/19 end stage renal disease Requesting physician: BERNARDINO PHAN - History of Present Illness 33-year-old -H[place] male presents to the emergency department via EMS from home with complaint of abdominal pain, nausea, vomiting and vomiting of blood that has been going on over the past 3 days. The patient does have a history of ulcerative esophagitis, gastroparesis, CK D without hemodialysis, diabetes, hypertension. The patient was seen here in April of this year for similar symptoms. He did not take anything for his symptoms prior to arrival. He does not have a primary care physician or basket patcher. Currently, the patient is just nodding/shaking his head to answer questions. He did have an episode of vomiting with hematemesis upon arrival to the emergency department. - Past Medical History Hx Hypertension: Yes Hx Heart Attack/AMI: No Hx Congestive Heart Failure: No Hx Diabetes: Yes Hx Deep Vein Thrombosis: No Hx Asthma: Yes Hx COPD: No Hx HIV: No Additional medical history: Ulcerative esophagitis, Gastroparesis - Surgical History Hx Pacemaker: No Hx Internal Defibrillator: No Hx Appendectomy: Yes Additional Surgical History: right great toe removed - Social History Smoking Status: Never Smoker Substance Use Type: Alcohol ROS: Stated complaint: VOMITING BLOOD Other details as noted in HPI Comment: All other systems reviewed and negative Constitutional: denies: chills, fever Eyes: denies: eye pain, vision change Respiratory: denies: cough, shortness of breath Cardiovascular: denies: chest pain, palpitations Gastrointestinal: abdominal pain, nausea, vomiting, hematemesis Past History Past Medical History: diabetes, hypertension, renal failure Past Surgical History: No surgical history Social history: no significant social history Family history: no significant family history Medications and Allergies Allergies Allergy/AdvReac Type Severity Reaction Status Date / Time No Known Allergies Allergy Verified 11/21/18 17:51 Home Medications Medication Instructions Recorded Confirmed Last Taken Type ALBUTEROL Inhaler (OR & NICU) 1 puff IH Q4H PRN 08/21/19 08/21/19 Unknown History [Proair] Carvedilol [Coreg] 25 mg PO Q12H 08/21/19 08/21/19 Unknown History Furosemide [Lasix TAB] 40 mg PO BID 08/21/19 08/21/19 Unknown History Lisinopril [Zestril] 5 mg PO QDAY 08/21/19 08/21/19 Unknown History Metoclopramide [Reglan ORAL LIQ] 10 mg PO QID 08/21/19 08/21/19 Unknown History Pantoprazole [Protonix TAB] 40 mg PO BIDAC 08/21/19 08/21/19 Unknown History hydrALAZINE [Apresoline] 25 mg PO Q8HR 08/21/19 08/21/19 Unknown History Active Meds: Active Medications Albuterol (Proventil) 2.5 mg IH Q4HRT PRN PRN Reason: Shortness Of Breath Clonidine HCl (Catapres-Tts Patch) 0.3 mg TD Sa KESHIA Pantoprazole Sodium 80 mg/ (Sodium Chloride) 100 mls @ 10 mls/hr IV DIRECT KESHIA Last Admin: 08/21/19 14:28 Dose: 8 mg/hr, 10 mls/hr Documented by: Sodium Chloride (Nacl 0.9% 1000 Ml) 1,000 mls @ 45 mls/hr IV DIRECT KESHIA Insulin Human Lispro (Humalog) 0 unit SUB-Q Q6HR KESHIA; Protocol Last Admin: 08/22/19 06:08 Dose: 3 unit Documented by: Metoclopramide HCl (Reglan) 5 mg IV Q6H PRN PRN Reason: Nausea And Vomiting Ondansetron HCl (Zofran) 4 mg IV Q6H PRN PRN Reason: Nausea And Vomiting Last Admin: 08/22/19 02:52 Dose: 4 mg Documented by: Exam - Vital Signs Vital signs: Vital Signs Temp Pulse Resp BP Pulse Ox 98.9 F 114 H 20 222/129 100 08/21/19 09:52 08/21/19 09:52 08/21/19 09:52 08/21/19 09:52 08/21/19 09:52 - Physical Exam Narrative exam: GENERAL: Patient is seen and vomiting some dark coffee-ground emesis. HENT: Normocephalic. Atraumatic. Patient has moist mucous membranes. EYES: Extraocular motions are intact. NECK: Supple. Trachea is midline. CHEST/LUNGS: Clear to auscultation. There is no respiratory distress noted. HEART/CARDIOVASCULAR: Regular. There is mild tachycardia. There is no murmur. ABDOMEN: Abdomen is soft midline and epigastric tenderness to palpation. No guarding. Patient has normal bowel sounds. There is no abdominal distention. SKIN: Skin is warm and dry. NEURO: The patient is awake, alert. Follows commands. Withdraws from painful stimuli. MUSCULOSKELETAL: There is no tenderness or deformity. There is no evidence of acute injury. Results - Lab Results 08/22/19 01:46 08/21/19 10:29 Most recent lab results Calcium 8.5 mg/dL (8.4-10.2) 08/21/19 10:29 Assessment and Plan Impression: * Acute kidney injury secondary to volume depletion on Stage 5 CKD vs progression of CKD to ESRD * UGIB * Diabetic gastroparesis * Type I DM * Accelerated HTN * Anemia Plan: * Renal prognosis is guarded - if fails to improve with conservative management; potential need for dialysis discussed with patient * Will start 24h urine CrCl * previous CT and ultrasound reviewed * GI recommendations needed * Glycemic control per primary team * Avoid potential nephrotoxic agents * Dose medications for renal function * Strict I/O * AM labs
[2019-08-22 09:31] LABS: Hematocrit 21.1 % (35.5-45.6); Hemoglobin 7.1 gm/dl (11.8-15.2)
[2019-08-22] MEDS ORDERED: SODIUM CHLORIDE 0.9% 500 ML 500 ML IV NR (09:49)
[2019-08-22] MEDS ORDERED: cloNIDine TTS 0.3 MG/24 HR PATCH TD SCH (10:00)
[2019-08-22] MEDS ORDERED: DEXTROSE 50% IN WATER (25GM) 50 ML SYRINGE IV STA (12:32)
--- NOTE | 2019-08-22 12:44 | Gastroenterology Progress Note ---
Assessment and Plan 1. Coffee ground emesis - resolved; drop in H/H from admission but no further vomiting episodes or signs of bleeding. monitor for time being unless signs of overt bleeding develops. known ulcerative esophagitis. PPI BID and carafate QID. 2. Poorly controlled diabetes 3. CKD Subjective Date of service: 08/22/19 Principal diagnosis: n/v, abd pain Interval history: pt seen and examined; no further emesis episodes since admission. n/v improved. Objective - Exam Narrative Exam: Gen: NAD CV: RRR Lungs: CTAB Abd: soft, mild epigastric ttp, no r/g, +bs - Constitutional Vitals: Temp Pulse Resp BP Pulse Ox 98.3 F 91 H 18 172/106 100 08/22/19 11:52 08/22/19 11:52 08/22/19 11:52 08/22/19 11:52 08/22/19 11:52 - Labs CBC & Chem 7: 08/22/19 08:57 08/21/19 10:29 Labs: Laboratory Results - last 24 hr 08/21/19 08/22/19 08/22/19 10:20 01:21 01:46 Hgb 7.9 L Hct 23.5 L POC Glucose 326 H Blood Type O POSITIVE Antibody Screen Negative Crossmatch See Detail 08/22/19 08/22/19 08/22/19 05:13 08:57 11:25 Hgb 7.1 L Hct 21.1 L POC Glucose 210 H 213 H Blood Type Antibody Screen Crossmatch
[2019-08-22] MEDS: hydrALAZINE 20 MG/1 ML INJ IV PRN ×2 (13:05→19:11)
[2019-08-22] MEDS: SODIUM BICARBONATE 75 MEQ in DEXTROSE 5% IN WATER 1,000 ML IV SCH (14:08)
[2019-08-22 14:54] LABS: Hematocrit 23.3 % (35.5-45.6); Hemoglobin 7.8 gm/dl (11.8-15.2)
[2019-08-22] MEDS: PANTOPRAZOLE 40 MG TAB PO SCH (22:24)
[2019-08-23] MEDS: SODIUM BICARBONATE 75 MEQ in DEXTROSE 5% IN WATER 1,000 ML IV SCH (02:11)
[2019-08-23] MEDS: hydrALAZINE 20 MG/1 ML INJ IV PRN (05:34)
[2019-08-23] MEDS: ONDANSETRON 4 MG/2 ML INJ IV PRN ×3 (05:35→17:15)
--- NOTE | 2019-08-23 08:38 | Progress Note ---
Assessment and Plan Assessment and plan: Upper GI bleed IV protonix drip IV zofran and IV Reglan GI consulted, following No indication for EGD for now Gastroparesis IV Reglan and IV Zofran for now IDDM (insulin dependent diabetes mellitus) Accu [facility] Acute on CKD stage 5 may need dialysis if no improvement Hypertension Hold oral antihypertensives Catapress TTS patch Asthma Albuterol MDI qid prn Anemia due to acute blood loss from GI bleed and ESRD Hgb 9.8 after 1 Unit it PRBC Hypernatremia Malnutrition Dietitian consult DVT prophylaxis SCd's only and GI prophylaxis History Interval history: Patient admitted with GI bleed Vomited blood prior to admission No more vomiting of blood Non compliant, initially refused blood draw, later agreed Hospitalist Physical - Physical exam Narrative exam: Gen: Not in acute distress, lying in bed, HEENT: Normocephalic, atraumatic Neck: supple, no JVD Heart: S1 and S2 reg, no murmurs, rubs or gallop Lungs: Clear to auscultation, no rhonchi, no wheeze Abd: soft, non tender, non distended, normal BS, Ext: No edema, no clubbing, no cyanosis Neuro: Awake, alert, oriented X 3, no focal neurological signs - Constitutional Vitals: Temp Pulse Resp BP Pulse Ox 97.5 F L 107 H 18 136/72 100 08/23/19 04:58 08/23/19 05:34 08/23/19 04:58 08/23/19 06:36 08/23/19 04:58 Results - Labs CBC & Chem 7: 08/23/19 08:55 08/21/19 10:29 Labs: Laboratory Last Values WBC 10.7 K/mm3 (4.5-11.0) 08/21/19 10:29 RBC 3.02 M/mm3 (3.65-5.03) L 08/21/19 10:29 Hgb 7.8 gm/dl (11.8-15.2) L 08/22/19 14:19 Hct 23.3 % (35.5-45.6) L 08/22/19 14:19 MCV 83 fl (84-94) L 08/21/19 10:29 MCH 28 pg (28-32) 08/21/19 10:29 MCHC 34 % (32-34) 08/21/19 10:29 RDW 14.7 % (13.2-15.2) 08/21/19 10:29 Plt Count 469 K/mm3 (140-440) H 08/21/19 10:29 Lymph % (Auto) 10.2 % (13.4-35.0) L 08/21/19 10:29 [place] % (Auto) 3.5 % (0.0-7.3) 08/21/19 10:29 Eos % (Auto) 0.0 % (0.0-4.3) 08/21/19 10:29 Baso % (Auto) 0.8 % (0.0-1.8) 08/21/19 10:29 Lymph # 1.1 K/mm3 (1.2-5.4) L 08/21/19 10:29 [place] # 0.4 K/mm3 (0.0-0.8) 08/21/19 10:29 Eos # 0.0 K/mm3 (0.0-0.4) 08/21/19 10:29 Baso # 0.1 K/mm3 (0.0-0.1) 08/21/19 10:29 Seg Neutrophils % 85.5 % (40.0-70.0) H 08/21/19 10:29 Seg Neutrophils # 9.2 K/mm3 (1.8-7.7) H 08/21/19 10:29 PT 14.1 Sec. (12.2-14.9) 08/21/19 10:20 INR 1.12 (0.87-1.13) 08/21/19 10:20 APTT 34.3 Sec. (24.2-36.6) 08/21/19 10:20 Sodium 147 mmol/L (137-145) H 08/21/19 10:29 Potassium 4.1 mmol/L (3.6-5.0) 08/21/19 10:29 Chloride 107.3 mmol/L (98-107) H 08/21/19 10:29 Carbon Dioxide 15 mmol/L (22-30) L 08/21/19 10:29 Anion Gap 29 mmol/L 08/21/19 10:29 BUN 68 mg/dL (9-20) H 08/21/19 10:29 Creatinine 11.5 mg/dL (0.8-1.5) H 08/21/19 10:29 Estimated GFR 6 ml/min 08/21/19 10:29 BUN/Creatinine Ratio 6 % 08/21/19 10:29 Glucose 305 mg/dL (75-100) H 08/21/19 10:29 POC Glucose 315 (70-105) H 08/23/19 07:26 Calcium 8.5 mg/dL (8.4-10.2) 08/21/19 10:29 Magnesium 1.80 mg/dL (1.7-2.3) 08/22/19 14:12 Total Bilirubin 0.30 mg/dL (0.1-1.2) 08/21/19 10:29 AST 16 units/L (5-40) 08/21/19 10:29 ALT 9 units/L (7-56) 08/21/19 10:29 Alkaline Phosphatase 57 units/L (35-129) 08/21/19 10:29 Total Protein 6.0 g/dL (6.3-8.2) L 08/21/19 10:29 Albumin 2.5 g/dL (3.9-5) L 08/21/19 10:29 Albumin/Globulin Ratio 0.7 % 08/21/19 10:29 Hep Bs Antigen Non-reactive (Negative) 08/22/19 14:12 Hepatitis C Antibody Non-reactive (NonReactive) 08/22/19 14:12 Blood Type O POSITIVE 08/21/19 10:20 Antibody Screen Negative 08/21/19 10:20 Crossmatch See Detail 08/21/19 10:20 Active Medications - Current Medications Current Medications: Generic Name Dose Route Start Last Admin Trade Name Freq PRN Reason Stop Dose Admin Albuterol 2.5 mg 08/22/19 00:01 Proventil IH Q4HRT PRN Shortness Of Breath Clonidine HCl 0.3 mg 08/22/19 10:00 08/22/19 09:53 Catapres-Tts Patch TD 0.3 mg Sa KESHIA Administration Hydralazine HCl 20 mg 08/22/19 12:29 08/23/19 05:34 Apresoline IV 20 mg Q4H PRN Administration SBP>160 or DBP>110 Sodium Bicarbonate 75 meq/ 1,075 mls @ 100 mls/hr 08/22/19 09:00 08/23/19 02:11 Dextrose IV 100 mls/hr DIRECT KESHIA Administration Insulin Human Lispro 0 unit 08/22/19 22:00 08/22/19 22:23 Humalog SUB-Q 3 unit ACHS KESHIA Administration Protocol Metoclopramide HCl 5 mg 08/22/19 00:26 Reglan IV Q6H PRN Nausea And Vomiting Ondansetron HCl 4 mg 08/21/19 23:10 08/23/19 05:35 Zofran IV 4 mg Q6H PRN Administration Nausea And Vomiting Pantoprazole Sodium 40 mg 08/22/19 22:00 08/22/19 22:24 Protonix PO 40 mg BID KESHIA Administration Nutrition/Malnutrition Assess - Dietary Evaluation Nutrition/Malnutrition Findings: Nutrition Notes Start: 08/22/19 12: 39 Freq: Status: Active Protocol: Document 08/22/19 12:39 JOSUE (Rec: 08/22/19 12:48 JOSUE [email or web address]) Nutrition Notes Need for Assessment generated from: MD Order Initial or Follow up Assessment Current Diagnosis CKD(stage I-IV),Diabetes, Hypertension Other Pertinent Diagnosis Upper GIB, Anemia, Gastroparesis Current Diet No diet ordered Labs/Tests POC Glu 326 08/21/19: BUN 68, Cr 11.5 Pertinent Medications Protonix gtt Height 6 ft 3 in Weight 88.4 kg Usual Body Weight 88.6 kg [place] Body Weight (kg) 89.09 BMI 24.3 Intake Prior to Admission Poor Weight change and time frame Pt reports no recent wt loss Weight Status Appropriate Subjective/Other Information RD consulted for NTR recommendations and malnutrition. Pt groggy at time of visit; reports last PO meal nearly three days ago. Per records, pt with hx of ulcerative esophagitis and poorly controlled DM. Per nephrology, pt may need HD if renal function fails to improve with conservative management. Burn Absent Trauma Absent GI Symptoms Nausea,Vomiting Minimum of two criteria No #1 Nutrition Diagnosis Altered GI function Etiology gastroparesis, upper GIB As Evidenced by Signs and Symptoms pt NPO and has not tolerated PO intake for past three days Is patient on ventilator? No Is Patient Ambulatory and/or Out of Bed Yes REE-([facility]. Jeor-ambulatory/OOB) [ 2502.019 [id number]] Calculation Used for Recommendations Elizabeth Haque Additional Notes Pro needs 0.8-0.9g/k-80g/ day Fluid needs 1ml/kcal Nutrition Intervention Change Diet Order: Advance diet to Renal/ Consistent CHO when medically feasible Goal #1 Diet advancement to meet nutrient needs Anticipated Discharge Needs: Renal/CHO-controlled diet Follow-Up By: 08/24/19 Additional Comments F/U: diet advancement
[2019-08-23] MEDS: INSULIN LISPRO 100 UNIT/ML SUB-Q SCH ×4 (09:11→22:05)
[2019-08-23 09:17] LABS: Basophils # (Auto) 0.1 K/mm3 (0.0-0.1); Basophils % (Auto) 0.5 % (0.0-1.8); Eosinophils % (Auto) 0.3 % (0.0-4.3); Hematocrit 27.4 % (35.5-45.6); Hemoglobin 9.2 gm/dl (11.8-15.2); Lymphocytes # (Auto) 1.5 K/mm3 (1.2-5.4); Lymphocytes % (Auto) 12.8 % (13.4-35.0); Mean Corpuscular HGB Conc 33 % (32-34); Mean Corpuscular Volume 84 fl (84-94); Monocytes # (Auto) 0.8 K/mm3 (0.0-0.8); Monocytes % (Auto) 6.4 % (0.0-7.3); Platelet Count 392 K/mm3 (140-440); Red Blood Count 3.28 M/mm3 (3.65-5.03); Red Cell Distribution Width 14.7 % (13.2-15.2)
[2019-08-23 09:34] LABS: Calcium 8.1 mg/dL (8.4-10.2)
--- NOTE | 2019-08-23 09:34 | Progress Note ---
Assessment and Plan Impression: * Acute kidney injury on CKD 5 with progression to ESRD * UGIB * UREMIA * Diabetic gastroparesis * Type I DM * Accelerated HTN * Anemia Plan: * Renal prognosis is guarded - will need dialysis discussed with patient * plans to initiate hd in am * po sodium bicarb, stop gtt * nausea and emesis likely uremia * he was intially refusing labs this morning, results noted * attempt 24h urine CrCl * previous CT and ultrasound reviewed * GI recommendations needed * Glycemic control per primary team * Avoid potential nephrotoxic agents * Dose medications for renal function * Strict I/O * AM labs if patient agrees Subjective Date of service: 08/23/19 Principal diagnosis: n/v, abd pain Interval history: resting well in bed today Objective - Exam Narrative Exam: GENERAL: Patient is seen and vomiting some dark coffee-ground emesis. HENT: Normocephalic. Atraumatic. Patient has moist mucous membranes. EYES: Extraocular motions are intact. NECK: Supple. Trachea is midline. CHEST/LUNGS: Clear to auscultation. There is no respiratory distress noted. HEART/CARDIOVASCULAR: Regular. There is mild tachycardia. There is no murmur. ABDOMEN: Abdomen is soft midline and epigastric tenderness to palpation. No guarding. Patient has normal bowel sounds. There is no abdominal distention. SKIN: Skin is warm and dry. NEURO: The patient is awake, alert. Follows commands. Withdraws from painful stimuli. MUSCULOSKELETAL: There is no tenderness or deformity. There is no evidence of acute injury. - Vital Signs Vital signs: Vital Signs - 12hr 08/23/19 08/23/19 08/23/19 04:58 05:34 06:36 Temperature 97.5 F L Pulse Rate 117 H 107 H Respiratory 18 Rate Blood Pressure 187/104 187/104 136/72 O2 Sat by Pulse 100 Oximetry - Lab 08/23/19 08:55 08/23/19 08:55 Most recent lab results Calcium 8.5 mg/dL (8.4-10.2) 08/21/19 10:29 Magnesium 1.80 mg/dL (1.7-2.3) 08/22/19 14:12 Medications & Allergies - Medications Allergies/Adverse Reactions: Allergies No Known Allergies Allergy (Verified 11/21/18 17:51) Home Medications: Home Medications Medication Instructions Recorded Confirmed Last Taken Type ALBUTEROL Inhaler (OR & NICU) 1 puff IH Q4H PRN 08/21/19 08/21/19 Unknown History [Proair] Carvedilol [Coreg] 25 mg PO Q12H 08/21/19 08/21/19 Unknown History Furosemide [Lasix TAB] 40 mg PO BID 08/21/19 08/21/19 Unknown History Lisinopril [Zestril] 5 mg PO QDAY 08/21/19 08/21/19 Unknown History Metoclopramide [Reglan ORAL LIQ] 10 mg PO QID 08/21/19 08/21/19 Unknown History RX: Pantoprazole [Protonix TAB] 40 mg PO BIDAC 08/21/19 08/21/19 Unknown History hydrALAZINE [Apresoline] 25 mg PO Q8HR 08/21/19 08/21/19 Unknown History Active Medications: Generic Name Dose Route Start Last Admin Trade Name Freq PRN Reason Stop Dose Admin Albuterol 2.5 mg 08/22/19 00:01 Proventil IH Q4HRT PRN Shortness Of Breath Clonidine HCl 0.3 mg 08/22/19 10:00 08/22/19 09:53 Catapres-Tts Patch TD 0.3 mg Sa KESHIA Administration Hydralazine HCl 20 mg 08/22/19 12:29 08/23/19 05:34 Apresoline IV 20 mg Q4H PRN Administration SBP>160 or DBP>110 Sodium Bicarbonate 75 meq/ 1,075 mls @ 100 mls/hr 08/22/19 09:00 08/23/19 02:11 Dextrose IV 100 mls/hr DIRECT KESHIA Administration Insulin Human Lispro 0 unit 08/22/19 22:00 08/23/19 09:11 Humalog SUB-Q 6 unit ACHS KESHIA Administration Protocol Metoclopramide HCl 5 mg 08/22/19 00:26 Reglan IV Q6H PRN Nausea And Vomiting Ondansetron HCl 4 mg 08/21/19 23:10 08/23/19 05:35 Zofran IV 4 mg Q6H PRN Administration Nausea And Vomiting Pantoprazole Sodium 40 mg 08/22/19 22:00 08/22/19 22:24 Protonix PO 40 mg BID KESHIA Administration
[2019-08-23] MEDS ORDERED: SODIUM CHLORIDE 0.9% 100 ML IV PRN (10:13)
[2019-08-23] MEDS ORDERED: ALBUMIN HUMAN 25% (25 GM/100 ML) INJ IV PRN (10:13)
[2019-08-23] MEDS: CARVEDILOL 25 MG TAB PO SCH ×2 (11:12→22:04)
[2019-08-23] MEDS: hydrALAZINE 25 MG TAB PO SCH ×3 (11:13→21:25)
[2019-08-23] MEDS: PANTOPRAZOLE 40 MG TAB PO SCH ×2 (11:13)
[2019-08-23] MEDS: SODIUM BICARBONATE 650 MG TAB PO SCH ×2 (11:13→21:26)
[2019-08-23 11:49] LABS: % Iron Saturation 30.38 %
[2019-08-23 12:05] LABS: Bacteria,Urine 1+ /HPF (Negative); Bilirubin,Urine NEG (Negative); Blood,Urine SM (Negative); Color,Urine Yellow (Yellow); Hyaline Casts,Urine 6 /LPF; Mucus,Urine FEW /HPF; Urobilinogen,Urine < 2.0 mg/dL (<2.0)
[2019-08-23 12:06] LABS: Protein,Urine >500 mg/dL (Negative)
--- NOTE | 2019-08-23 16:01 | Gastroenterology Progress Note ---
Assessment and Plan 1. Coffee ground emesis - resolved, H/H stable; h/o known ulcerative esophagitis (egd x 2 this year) 2. Renal failure - nephrology following for possible dialysis -no plans for EGD at this time unless signs of further bleeding or inability to tolerate po (change in symptoms). cont anti-acid medication daily Will sign off, please call as needed or with questions Subjective Date of service: 08/23/19 Principal diagnosis: n/v, abd pain Interval history: Pt seen and examined; no further vomiting episodes. H/H stable. tolerating po but + nausea symptoms Objective - Constitutional Vitals: Temp Pulse Resp BP Pulse Ox 98.4 F 93 H 18 120/67 98 08/23/19 12:06 08/23/19 12:06 08/23/19 12:06 08/23/19 12:06 08/23/19 12:06 General appearance: no acute distress - Respiratory Respiratory effort: normal Respiratory: bilateral: CTA - Cardiovascular Rhythm: regular Heart Sounds: Present: S1 & S2 - Gastrointestinal General gastrointestinal: Present: soft, non-tender, non-distended - Labs CBC & Chem 7: 08/23/19 08:55 08/23/19 08:55 Labs: Laboratory Results - last 24 hr 08/21/19 08/22/19 08/22/19 10:20 14:12 16:23 WBC RBC Hgb Hct MCV MCH MCHC RDW Plt Count Lymph % (Auto) [place] % (Auto) Eos % (Auto) Baso % (Auto) Lymph # [place] # Eos # Baso # Seg Neutrophils % Seg Neutrophils # Sodium Potassium Chloride Carbon Dioxide Anion Gap BUN Creatinine Estimated GFR BUN/Creatinine Ratio Glucose POC Glucose 143 H Calcium Phosphorus Iron TIBC % Saturation Transferrin Urine Color Urine Turbidity Urine pH Ur Specific [place] Urine Protein Urine Glucose (UA) Urine Ketones Urine Blood Urine Nitrite Urine Bilirubin Urine Urobilinogen Ur Leukocyte Esterase Urine WBC (Auto) Urine RBC (Auto) U Epithel Cells (Auto) Urine Bacteria (Auto) Hyaline Casts Urine Mucus Urine Eosinophils Hep Bs Antigen Non-reactive Crossmatch See Detail 08/22/19 08/23/19 08/23/19 21:35 07:26 08:55 WBC 12.0 H RBC 3.28 L Hgb 9.2 L Hct 27.4 L MCV 84 MCH 28 MCHC 33 RDW 14.7 Plt Count 392 Lymph % (Auto) 12.8 L [place] % (Auto) 6.4 Eos % (Auto) 0.3 Baso % (Auto) 0.5 Lymph # 1.5 [place] # 0.8 Eos # 0.0 Baso # 0.1 Seg Neutrophils % 80.0 H Seg Neutrophils # 9.6 H Sodium Potassium Chloride Carbon Dioxide Anion Gap BUN Creatinine Estimated GFR BUN/Creatinine Ratio Glucose POC Glucose 217 H 315 H Calcium Phosphorus Iron TIBC % Saturation Transferrin Urine Color Urine Turbidity Urine pH Ur Specific [place] Urine Protein Urine Glucose (UA) Urine Ketones Urine Blood Urine Nitrite Urine Bilirubin Urine Urobilinogen Ur Leukocyte Esterase Urine WBC (Auto) Urine RBC (Auto) U Epithel Cells (Auto) Urine Bacteria (Auto) Hyaline Casts Urine Mucus Urine Eosinophils Hep Bs Antigen Crossmatch 08/23/19 08/23/19 08/23/19 08:55 08:55 11:43 WBC RBC Hgb Hct MCV MCH MCHC RDW Plt Count Lymph % (Auto) [place] % (Auto) Eos % (Auto) Baso % (Auto) Lymph # [place] # Eos # Baso # Seg Neutrophils % Seg Neutrophils # Sodium 141 Potassium 3.6 Chloride 101.9 Carbon Dioxide 19 L Anion Gap 24 BUN 77 H Creatinine 11.5 H Estimated GFR 6 BUN/Creatinine Ratio 7 Glucose 298 H POC Glucose Calcium 8.1 L Phosphorus 5.70 H Iron 48 L TIBC 158 L % Saturation 30.38 Transferrin 138 L Urine Color Yellow Urine Turbidity Clear Urine pH 6.0 Ur Specific [place] 1.016 Urine Protein >500 Urine Glucose (UA) >=500 Urine Ketones Neg Urine Blood Sm Urine Nitrite Neg Urine Bilirubin Neg Urine Urobilinogen < 2.0 Ur Leukocyte Esterase Neg Urine WBC (Auto) 5.0 Urine RBC (Auto) 1.0 U Epithel Cells (Auto) < 1.0 Urine Bacteria (Auto) 1+ Hyaline Casts 6 Urine Mucus Few Urine Eosinophils Hep Bs Antigen Crossmatch 08/23/19 08/23/19 11:43 11:48 WBC RBC Hgb Hct MCV MCH MCHC RDW Plt Count Lymph % (Auto) [place] % (Auto) Eos % (Auto) Baso % (Auto) Lymph # [place] # Eos # Baso # Seg Neutrophils % Seg Neutrophils # Sodium Potassium Chloride Carbon Dioxide Anion Gap BUN Creatinine Estimated GFR BUN/Creatinine Ratio Glucose POC Glucose 244 H Calcium Phosphorus Iron TIBC % Saturation Transferrin Urine Color Urine Turbidity Urine pH Ur Specific [place] Urine Protein Urine Glucose (UA) Urine Ketones Urine Blood Urine Nitrite Urine Bilirubin Urine Urobilinogen Ur Leukocyte Esterase Urine WBC (Auto) Urine RBC (Auto) U Epithel Cells (Auto) Urine Bacteria (Auto) Hyaline Casts Urine Mucus Urine Eosinophils None seen Hep Bs Antigen Crossmatch
[2019-08-24] MEDS: hydrALAZINE 25 MG TAB PO SCH ×3 (05:42→21:28)
[2019-08-24 07:14] LABS: Basophils # (Auto) 0.1 K/mm3 (0.0-0.1); Basophils % (Auto) 0.7 % (0.0-1.8); Eosinophils # (Auto) 0.3 K/mm3 (0.0-0.4); Eosinophils % (Auto) 2.8 % (0.0-4.3); Hematocrit 22.7 % (35.5-45.6); Hemoglobin 7.7 gm/dl (11.8-15.2); Lymphocytes # (Auto) 2.9 K/mm3 (1.2-5.4); Lymphocytes % (Auto) 32.5 % (13.4-35.0); Mean Corpuscular HGB Conc 34 % (32-34); Mean Corpuscular Volume 84 fl (84-94); Monocytes # (Auto) 0.6 K/mm3 (0.0-0.8); Monocytes % (Auto) 7.2 % (0.0-7.3); Platelet Count 321 K/mm3 (140-440); Red Blood Count 2.69 M/mm3 (3.65-5.03); Red Cell Distribution Width 14.3 % (13.2-15.2)
[2019-08-24 07:28] LABS: Calcium 7.3 mg/dL (8.4-10.2)
[2019-08-24] MEDS: INSULIN LISPRO 100 UNIT/ML SUB-Q SCH ×4 (08:46→21:23)
[2019-08-24] MEDS ORDERED: SODIUM CHLORIDE 0.9% 100 ML IV PRN (09:21)
[2019-08-24] MEDS ORDERED: HEPARIN/NS 5000 UNIT/500ML 500 ML IR ONE (09:25)
[2019-08-24] MEDS ORDERED: SODIUM CHLORIDE 0.9% 250ML 250 ML ONE (09:26)
[2019-08-24] MEDS ORDERED: LIDOCAINE 1%/EPINEPHRINE 1:100,000 VIAL (20 ML) INFILTRATI ONE ×2 (09:26→10:11)
[2019-08-24] MEDS: fentaNYL 100 MCG/2 ML INJ ONE ×2 (09:55→09:59)
[2019-08-24] MEDS: MIDAZOLAM 2 MG/2 ML INJ ONE ×2 (09:55→09:59)
[2019-08-24] MEDS: HEPARIN 10,000 UNITS/10 ML VIAL ONE ×3 (10:11→10:15)
[2019-08-24] MEDS ORDERED: hydrALAZINE 20 MG/1 ML INJ ONE (10:16)
--- NOTE | 2019-08-24 10:53 | Progress Note ---
Subjective Principal diagnosis: n/v, abd pain Interval history: Patient was seen today for follow-up of multiple renal related issues No complaints of any chest pain pressure or shortness of breath Interdisciplinary notes that also reviewed Events of 24 hours vitals labs intake output medications were reviewed Past medical history: Reviewed Family history: Reviewed Social history: Reviewed Allergies: Reviewed Physical examination: Vitals: Reviewed HEENT: No pallor or icterus oral mucosa moist Neck: Supple no JVD no thyromegaly Chest: Bilateral clear to auscultation anteriorly Heart: Regular rate and rhythm S1-S2 heard no S3-S4 Abdomen: Soft nontender no voluntary guarding rigidity rebound Extremity: Dry skin less than 1+ peripheral edema Psychiatric: No evidence of agitation and aggression noted Dermatology: No petechial rashes Labs and x-rays: Reviewed from today Assessment and plan Acute kidney injury with underlying stage V chronic kidney disease patient has progressed to end-stage renal disease, renal notes reviewed, patient will need ongoing hemodialysis Uremia, anemia, accelerated hypertension metabolic acidosis coffee-ground emesis could be due to uremic gastritis/peptic ulcer disease Patient will need ongoing dialysis from now on and also requires placement in the outpatient setting renal ultrasound obtained 2017 shows evidence of chronic kidney disease Anemia: Hemoglobin is currently 7.7 Hypokalemia potassium is 3.3 Metabolic acidosis bicarbonate is currently 20 Iron saturation 30% patient will need erythropoietin at least 10,000 units 3 times a week for now We'll check intact PTH, calcium is 7.3 phosphorus 5.7 magnesium 1.8 Patient was adequately counseled and educated regarding all the renal related issues Laboratory studies, pertinent for discussed with patient All questions were answered and simple [place] We'll continue to follow and make recommendation for renal standpoint Objective - Vital Signs Vital signs: Vital Signs - 12hr 08/24/19 08/24/19 04:43 05:42 Temperature 98.3 F Pulse Rate 71 71 Respiratory 16 Rate Blood Pressure 131/83 131/83 O2 Sat by Pulse 99 Oximetry - Lab 08/24/19 06:11 08/24/19 06:11 Most recent lab results Calcium 7.3 mg/dL (8.4-10.2) L 08/24/19 06:11 Phosphorus 5.70 mg/dL (2.5-4.5) H 08/23/19 08:55 Magnesium 1.80 mg/dL (1.7-2.3) 08/22/19 14:12 Medications & Allergies - Medications Allergies/Adverse Reactions: Allergies No Known Allergies Allergy (Verified 11/21/18 17:51) Home Medications: Home Medications Medication Instructions Recorded Confirmed Last Taken Type ALBUTEROL Inhaler (OR & NICU) 1 puff IH Q4H PRN 08/21/19 08/21/19 Unknown History [Proair] Carvedilol [Coreg] 25 mg PO Q12H 08/21/19 08/21/19 Unknown History Furosemide [Lasix TAB] 40 mg PO BID 08/21/19 08/21/19 Unknown History Lisinopril [Zestril] 5 mg PO QDAY 08/21/19 08/21/19 Unknown History Metoclopramide [Reglan ORAL LIQ] 10 mg PO QID 08/21/19 08/21/19 Unknown History Pantoprazole [Protonix TAB] 40 mg PO BIDAC 08/21/19 08/21/19 Unknown History hydrALAZINE [Apresoline] 25 mg PO Q8HR 08/21/19 08/21/19 Unknown History Active Medications: Generic Name Dose Route Start Last Admin Trade Name Freq PRN Reason Stop Dose Admin Albumin Human 25 gm 08/23/19 10:13 Alburx 25% (Albumin) IV BRENDAN PRN Hypotension Albuterol 2.5 mg 08/22/19 00:01 Proventil IH Q4HRT PRN Shortness Of Breath Carvedilol 25 mg 08/23/19 10:00 08/23/19 22:04 Coreg PO 25 mg Q12H KESHIA Administration Clonidine HCl 0.3 mg 08/22/19 10:00 08/22/19 09:53 Catapres-Tts Patch TD 0.3 mg Sa KESHIA Administration Epoetin Wale 10,000 unit 08/23/19 10:13 Procrit IV BRENDAN PRN hemodialysis Hydralazine HCl 20 mg 08/22/19 12:29 08/23/19 05:34 Apresoline IV 20 mg Q4H PRN Administration SBP>160 or DBP>110 Hydralazine HCl 25 mg 08/23/19 10:00 08/24/19 05:42 Apresoline PO 25 mg Q8HR KESHIA Administration Sodium Chloride 100 mls @ 999 mls/hr 08/23/19 10:13 Nacl 0.9% IV BRENDAN PRN Hypotension Sodium Chloride 100 mls @ 999 mls/hr 08/24/19 09:21 Nacl 0.9% IV BRENDAN PRN Hypotension Insulin Human Lispro 0 unit 08/22/19 22:00 08/24/19 08:46 Humalog SUB-Q Not Given ACHS [facility] Protocol Metoclopramide HCl 5 mg 08/22/19 00:26 08/23/19 11:15 Reglan IV 5 mg Q6H PRN Administration Nausea And Vomiting Ondansetron HCl 4 mg 08/21/19 23:10 08/23/19 17:15 Zofran IV 4 mg Q6H PRN Administration Nausea And Vomiting Pantoprazole Sodium 40 mg 08/23/19 11:00 08/23/19 11:13 Protonix PO Not Given QDAY [facility] Sodium Bicarbonate 1,300 mg 08/23/19 10:00 08/23/19 21:26 Sodium Bicarbonate PO 1,300 mg BID KESHIA Administration
--- NOTE | 2019-08-24 11:45 | Consultation ---
History of Present Illness - Reason for Consult Consult date: 08/24/19 ESRD - History of Present Illness 33-year-old -[place] male presents to the emergency department via EMS from home with complaint of abdominal pain, nausea, vomiting and vomiting of blood that has been going on over the past 3 days. The patient does have a history of ulcerative esophagitis, gastroparesis, CK D without hemodialysis, diabetes, hypertension. The patient was seen here in April of this year for roc lar symptoms. He did not take anything for his symptoms prior to arrival. 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 Currently, the patient is just nodding/shaking his head to answer questions. He did have an episode of vomiting with hematemesis upon arrival to the emergency department. During his hospitalization he progressed to ESRD. Vascular was then consulted. - Past Medical History Hx Hypertension: Yes Hx Heart Attack/AMI: No Hx Congestive Heart Failure: No Hx Diabetes: Yes Hx Deep Vein Thrombosis: No Hx Asthma: Yes Hx COPD: No Hx HIV: No Additional medical history: Ulcerative esophagitis, Gastroparesis - Surgical History Hx Pacemaker: No Hx Internal Defibrillator: No Hx Appendectomy: Yes Additional Surgical History: right great toe removed - Social History Smoking Status: Never Smoker Substance Use Type: Alcohol ROS: Stated complaint: VOMITING BLOOD Other details as noted in HPI Comment: All other systems reviewed and negative Constitutional: denies: chills, fever Eyes: denies: eye pain, vision change Respiratory: denies: cough, shortness of breath Cardiovascular: denies: chest pain, palpitations Gastrointestinal: abdominal pain, nausea, vomiting, hematemesis Past History Past Medical History: diabetes, hypertension, renal failure Past Surgical History: No surgical history Social history: no significant social history Family history: no significant family history Medications and Allergies Allergies Allergy/AdvReac Type Severity Reaction Status Date / Time No Known Allergies Allergy Verified 11/21/18 17:51 Home Medications Medication Instructions Recorded Confirmed Last Taken Type ALBUTEROL Inhaler (OR & NICU) 1 puff IH Q4H PRN 08/21/19 08/21/19 Unknown History [Proair] Carvedilol [Coreg] 25 mg PO Q12H 08/21/19 08/21/19 Unknown History Furosemide [Lasix TAB] 40 mg PO BID 08/21/19 08/21/19 Unknown History Lisinopril [Zestril] 5 mg PO QDAY 08/21/19 08/21/19 Unknown History Metoclopramide [Reglan ORAL LIQ] 10 mg PO QID 08/21/19 08/21/19 Unknown History Pantoprazole [Protonix TAB] 40 mg PO BIDAC 08/21/19 08/21/19 Unknown History hydrALAZINE [Apresoline] 25 mg PO Q8HR 08/21/19 08/21/19 Unknown History Active Meds: Active Medications Albumin Human (Alburx 25% (Albumin)) 25 gm IV BRENDAN PRN PRN Reason: Hypotension Albuterol (Proventil) 2.5 mg IH Q4HRT PRN PRN Reason: Shortness Of Breath Carvedilol (Coreg) 25 mg PO Q12H [facility] Last Admin: 08/23/19 22:04 Dose: 25 mg Documented by: Clonidine HCl (Catapres-Tts Patch) 0.3 mg TD Sa [facility] Last Admin: 08/22/19 09:53 Dose: 0.3 mg Documented by: Epoetin Wale (Procrit) 10,000 unit IV BRENDAN PRN PRN Reason: hemodialysis Hydralazine HCl (Apresoline) 20 mg IV Q4H PRN PRN Reason: SBP>160 or DBP>110 Last Admin: 08/23/19 05:34 Dose: 20 mg Documented by: Hydralazine HCl (Apresoline) 25 mg PO Q8HR [facility] Last Admin: 08/24/19 05:42 Dose: 25 mg Documented by: Sodium Chloride (Nacl 0.9%) 100 mls @ 999 mls/hr IV BRENDAN PRN PRN Reason: Hypotension Sodium Chloride (Nacl 0.9%) 100 mls @ 999 mls/hr IV BRENDAN PRN PRN Reason: Hypotension Insulin Human Lispro (Humalog) 0 unit SUB-Q ACHS [facility]; Protocol Last Admin: 08/24/19 08:46 Dose: Not Given Documented by: Metoclopramide HCl (Reglan) 5 mg IV Q6H PRN PRN Reason: Nausea And Vomiting Last Admin: 08/23/19 11:15 Dose: 5 mg Documented by: Ondansetron HCl (Zofran) 4 mg IV Q6H PRN PRN Reason: Nausea And Vomiting Last Admin: 08/23/19 17:15 Dose: 4 mg Documented by: Pantoprazole Sodium (Protonix) 40 mg PO QDAY [facility] Last Admin: 08/23/19 11:13 Dose: Not Given Documented by: Sodium Bicarbonate (Sodium Bicarbonate) 1,300 mg PO BID [facility] Last Admin: 08/23/19 21:26 Dose: 1,300 mg Documented by: Review of Systems All systems: negative (see HPI) Exam - Constitutional Vitals: Temp Pulse Resp BP Pulse Ox 98.3 F 71 16 131/83 99 08/24/19 04:43 08/24/19 05:42 08/24/19 04:43 08/24/19 05:42 08/24/19 04:43 General appearance: Present: no acute distress - EENT Eyes: Present: EOM intact ENT: hearing intact - Respiratory Respiratory effort: normal - Psychiatric Psychiatric: appropriate mood/affect, cooperative Results - Labs CBC & Chem 7: 08/24/19 06:11 08/24/19 06:11 Labs: Abnormal lab results 08/23/19 08/23/19 08/23/19 Range/Units 08:55 11:48 16:39 RBC (3.65-5.03) M/mm3 Hgb (11.8-15.2) gm/dl Hct (35.5-45.6) % Potassium (3.6-5.0) mmol/L BUN (9-20) mg/dL Creatinine (0.8-1.5) mg/dL Glucose (75-100) mg/dL POC Glucose 244 H 123 H (70-105) Calcium (8.4-10.2) mg/dL Phosphorus 5.70 H (2.5-4.5) mg/dL Iron 48 L (49-181) ug/dL TIBC 158 L (250-450) mcg/dL Transferrin 138 L (180-329) mg/dl 08/23/19 08/24/19 08/24/19 Range/Units 21:24 06:11 06:11 RBC 2.69 L (3.65-5.03) M/mm3 Hgb 7.7 L (11.8-15.2) gm/dl Hct 22.7 L (35.5-45.6) % Potassium 3.3 L (3.6-5.0) mmol/L BUN 69 H (9-20) mg/dL Creatinine 11.3 H (0.8-1.5) mg/dL Glucose 136 H (75-100) mg/dL POC Glucose 228 H (70-105) Calcium 7.3 L (8.4-10.2) mg/dL Phosphorus (2.5-4.5) mg/dL Iron (49-181) ug/dL TIBC (250-450) mcg/dL Transferrin (180-329) mg/dl 08/24/19 Range/Units 08:20 RBC (3.65-5.03) M/mm3 Hgb (11.8-15.2) gm/dl Hct (35.5-45.6) % Potassium (3.6-5.0) mmol/L BUN (9-20) mg/dL Creatinine (0.8-1.5) mg/dL Glucose (75-100) mg/dL POC Glucose 172 H (70-105) Calcium (8.4-10.2) mg/dL Phosphorus (2.5-4.5) mg/dL Iron (49-181) ug/dL TIBC (250-450) mcg/dL Transferrin (180-329) mg/dl Assessment and Plan 33-year-old male with end-stage renal disease who requires permacath placement. Risks, benefits, and alternatives of permacath placement discussed with patient. Avoid venipunctures, intramuscular sticks, or IVs in the right upper extremity. Patient is left-handed and all future IV/IM/BP cuff measurement should be through the left left upper extremity in order to save the right upper extremity for possible hemodialysis. Vein mapping ordered. Card provided.
--- NOTE | 2019-08-24 11:50 | Operative Report ---
Operative Report Operative Report: EXAM: 1. Ultrasound-guided puncture of the right internal jugular vein 2. Fluoroscopic-guided placement of a right internal jugular tunneled cuffed hemodialysis catheter. DATE: 08/24/19 INDICATION: End stage renal disease requiring hemodialysis MEDICATIONS: Please see nursing report for full details. DEVICES: 23 cm tip to cuff 15 Fr dual lumen hemodialysis catheter DIRECTOR OF OPTIMIZATION: ERNESTINA ALLISON MD CONTRAST: None PROCEDURE: The risks, benefits, and alternatives were discussed and informed consent was ob tained. The patient was transported to the angiography suite in satisfactory/stable condition and was transported onto the angiography table. The patient's right internal jugular vein was assessed with ultrasound and determined to be patent prior to procedure. The patient was prepped and draped in a sterile fashion. The puncture site was anesthetized. Under sonographic guidance, the right inte rnal jugular vein was punctured with a 21-gauge micropuncture needle and a 0.018 inch wire was advanced into the inferior vena cava. The micropuncture needle was exchanged for a transitional dilator and the wire was retracted into the right atrium to natalee intravascular distance. The wire and inner dilator were removed. 0.035 inch wire was advanced through the transitional dilator into the inferior vena cava. A suitable exit site was identified on the patient's chest inferior and lateral to the venotomy. The site was anesthetized with local anesthetic and the track was anesthetized. Dermatotomy was made. The PermCath was attached to the tunneling device and tunneled between the dermatotomy to the venotomy. Over the 0.035 inch wire, serial dilatation was performed with ultimate place ment of a peel-away sheath. The catheter was advanced through the peel-away sheath after the wire was removed and positioned centrally under fluoroscopic guidance. The peel-away sheath was removed. 4-0 Vicryl suture was used to close the venotomy and Dermabond was then applied. 2-0 Ethilon suture was used to secure the catheter at the dermatotomy. The catheter was charged with heparin 1000 units per mL of space. Sterile dressing and Biopatch applied. The patient was transferred from the angiography suite back to the floor in stable condition. FINDINGS: 1. Excellent flow was obtained through the dialysis catheter with 20 mL syringes. 2. The catheter tip is in the right atrium. IMPRESSION: 1. Successful ultrasound and fluoroscopically guided placement of a right internal jugular tunneled cuffed hemodialysis catheter.
[2019-08-24] MEDS: EPOETIN ALFA 10,000 UNIT/1 ML INJ IV PRN (13:00)
[2019-08-24] MEDS: CARVEDILOL 25 MG TAB PO SCH ×2 (14:24→21:26)
[2019-08-24] MEDS: SODIUM BICARBONATE 650 MG TAB PO SCH ×2 (14:24→21:25)
[2019-08-24] MEDS: PANTOPRAZOLE 40 MG TAB PO SCH (14:24)
[2019-08-24 14:33] LABS: Creatinine,Urine 142.7 mg/dL (0.1-20.0)
[2019-08-24 14:41] LABS: Creatinine 24 Hour,Urine 1.7 (0.8-2.8)
--- NOTE | 2019-08-24 15:02 | Progress Note ---
Assessment and Plan Assessment and plan: Patient is 33-year-old -[place] male presents to the emergency department via EMS from home with complaint of abdominal pain, nausea, vomiting and vomiting of blood that has been going on for 3 days prior to presentation. The patient does have a history of ulcerative esophagitis, gastroparesis, CKD stage 5 not on without hemodialysis, diabetes, hypertension. 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 He was seen and evaluated in ED and admitted. he was evaluated by Nephrology and GI Physician. Conservative management was recommended by GI Physician since he has had EGD X 2 this year. Nephrology recommend to initiate dialysis fo acute on chronic kidney disease stage 5, going to ESRD. hemodialysis cather placed today. Upper GI bleed IV protonix IV zofran and IV Reglan GI consulted, following No indication for EGD for now Gastroparesis IV Reglan and IV Zofran for now IDDM (insulin dependent diabetes mellitus) Accu cheks Qac Acute on CKD stage 5 To initiate hemodiialysis Dialysis catheter placed today Hypertension Monitor BP Asthma Albuterol MDI qid prn Anemia due to acute blood loss from GI bleed and ESRD Hgb 7.7 after 1 Unit PRBC Hypernatremia Malnutrition Dietitian consult DVT prophylaxis SCD's only because GI bleed History Interval history: Patient admitted with GI bleed Vomited blood prior to admission No more vomiting of blood Non compliant, initially refused blood draw for labs, later agreed Hospitalist Physical - Physical exam Narrative exam: Gen: Not in acute distress, lying in bed, HEENT: Normocephalic, atraumatic Neck: supple, no JVD Heart: S1 and S2 reg, no murmurs, rubs or gallop Lungs: Clear to auscultation, no rhonchi, no wheeze Abd: soft, non tender, non distended, normal BS, Ext: No edema, no clubbing, no cyanosis Neuro: Awake, alert, oriented X 3, no focal neurological signs - Constitutional Vitals: Temp Pulse Resp BP Pulse Ox 97.1 F L 69 16 118/85 99 08/24/19 14:36 08/24/19 14:36 08/24/19 14:36 08/24/19 14:36 08/24/19 14:36 General appearance: Present: no acute distress Results - Labs CBC & Chem 7: 08/24/19 06:11 10/14/19 06:11 Labs: Laboratory Last Values WBC 9.0 K/mm3 (4.5-11.0) 08/24/19 06:11 RBC 2.69 M/mm3 (3.65-5.03) L 08/24/19 06:11 Hgb 7.7 gm/dl (11.8-15.2) L 08/24/19 06:11 Hct 22.7 % (35.5-45.6) L 08/24/19 06:11 MCV 84 fl (84-94) 08/24/19 06:11 MCH 29 pg (28-32) 08/24/19 06:11 MCHC 34 % (32-34) 08/24/19 06:11 RDW 14.3 % (13.2-15.2) 08/24/19 06:11 Plt Count 321 K/mm3 (140-440) 08/24/19 06:11 Lymph % (Auto) 32.5 % (13.4-35.0) 08/24/19 06:11 [place] % (Auto) 7.2 % (0.0-7.3) 08/24/19 06:11 Eos % (Auto) 2.8 % (0.0-4.3) 08/24/19 06:11 Baso % (Auto) 0.7 % (0.0-1.8) 08/24/19 06:11 Lymph # 2.9 K/mm3 (1.2-5.4) 08/24/19 06:11 [place] # 0.6 K/mm3 (0.0-0.8) 08/24/19 06:11 Eos # 0.3 K/mm3 (0.0-0.4) 08/24/19 06:11 Baso # 0.1 K/mm3 (0.0-0.1) 08/24/19 06:11 Seg Neutrophils % 56.8 % (40.0-70.0) 08/24/19 06:11 Seg Neutrophils # 5.1 K/mm3 (1.8-7.7) 08/24/19 06:11 PT 14.1 Sec. (12.2-14.9) 08/21/19 10:20 INR 1.12 (0.87-1.13) 08/21/19 10:20 APTT 34.3 Sec. (24.2-36.6) 08/21/19 10:20 Sodium 138 mmol/L (137-145) 08/24/19 06:11 Potassium 3.3 mmol/L (3.6-5.0) L 08/24/19 06:11 Chloride 99.4 mmol/L (98-107) 08/24/19 06:11 Carbon Dioxide 22 mmol/L (22-30) 08/24/19 06:11 Anion Gap 20 mmol/L 08/24/19 06:11 BUN 69 mg/dL (9-20) H 08/24/19 06:11 Creatinine 11.3 mg/dL (0.8-1.5) H 08/24/19 06:11 Estimated GFR 6 ml/min 08/24/19 06:11 BUN/Creatinine Ratio 6 % 08/24/19 06:11 Glucose 136 mg/dL (75-100) H 08/24/19 06:11 POC Glucose 172 (70-105) H 08/24/19 08:20 Calcium 7.3 mg/dL (8.4-10.2) L 08/24/19 06:11 Phosphorus 5.70 mg/dL (2.5-4.5) H 08/23/19 08:55 Magnesium 1.80 mg/dL (1.7-2.3) 08/22/19 14:12 Iron 48 ug/dL (49-181) L 08/23/19 08:55 TIBC 158 mcg/dL (250-450) L 08/23/19 08:55 % Saturation 30.38 % 08/23/19 08:55 Transferrin 138 mg/dl (180-329) L 08/23/19 08:55 Ferritin 211.5 ng/mL (13.0-400.0) 08/24/19 03:01 Total Bilirubin 0.30 mg/dL (0.1-1.2) 08/21/19 10:29 AST 16 units/L (5-40) 08/21/19 10:29 ALT 9 units/L (7-56) 08/21/19 10:29 Alkaline Phosphatase 57 units/L (35-129) 08/21/19 10:29 Total Protein 6.0 g/dL (6.3-8.2) L 08/21/19 10:29 Albumin 2.5 g/dL (3.9-5) L 08/21/19 10: Albumin/Globulin Ratio 0.7 % 08/21/19 10:29 Urine Color Yellow (Yellow) 08/23/19 11:43 Urine Turbidity Clear (Clear) 08/23/19 11:43 Urine pH 6.0 (5.0-7.0) 08/23/19 11:43 Ur Specific [place] 1.016 (1.003-1.030) 08/23/19 11:43 Urine Protein >500 mg/dL (Negative) 08/23/19 11:43 Urine Glucose (UA) >=500 mg/dL (Negative) 08/23/19 11:43 Urine Ketones Neg mg/dL (Negative) 08/23/19 11:43 Urine Blood Sm (Negative) 08/23/19 11:43 Urine Nitrite Neg (Negative) 08/23/19 11:43 Urine Bilirubin Neg (Negative) 08/23/19 11:43 Urine Urobilinogen < 2.0 mg/dL (<2.0) 08/23/19 11:43 Ur Leukocyte Esterase Neg (Negative) 08/23/19 11:43 Urine WBC (Auto) 5.0 /HPF (0.0-6.0) 08/23/19 11:43 Urine RBC (Auto) 1.0 /HPF (0.0-6.0) 08/23/19 11:43 U Epithel Cells (Auto) < 1.0 /HPF (0-13.0) 08/23/19 11:43 Urine Bacteria (Auto) 1+ /HPF (Negative) 08/23/19 11:43 Hyaline Casts 6 /LPF 08/23/19 11:43 Urine Mucus Few /HPF 08/23/19 11:43 Urine Eosinophils None seen (None Seen) 08/23/19 11:43 Urine Total Volume 1200 ml 08/22/19 08:36 Urine Creatinine 142.7 mg/dL (0.1-20.0) H 08/22/19 08:36 Ur Creatinine 24 Hour 1.7 (0.8-2.8) 08/22/19 08:36 Hep Bs Antigen Non-reactive (Negative) 08/22/19 14:12 Hepatitis C Antibody Non-reactive (NonReactive) 08/22/19 14:12 Blood Type O POSITIVE 08/21/19 10:20 Antibody Screen Negative 08/21/19 10:20 Crossmatch See Detail 08/21/19 10:20 Active Medications - Current Medications Current Medications: Generic Name Dose Route Start Last Admin Trade Name Freq PRN Reason Stop Dose Admin Albumin Human 25 gm 08/23/19 10:13 Alburx 25% (Albumin) IV BRENDAN PRN Hypotension Albuterol 2.5 mg 08/22/19 00:01 Proventil IH Q4HRT PRN Shortness Of Breath Carvedilol 25 mg 08/23/19 10:00 08/24/19 14:24 Coreg PO 25 mg Q12H KESHIA Administration Clonidine HCl 0.3 mg 08/22/19 10:00 08/22/19 09:53 Catapres-Tts Patch TD 0.3 mg Sa KESHIA Administration Epoetin Wale 10,000 unit 08/23/19 10:13 Procrit IV BRENDAN PRN hemodialysis Hydralazine HCl 20 mg 08/22/19 12:29 08/23/19 05:34 Apresoline IV 20 mg Q4H PRN Administration SBP>160 or DBP>110 Hydralazine HCl 25 mg 08/23/19 10:00 08/24/19 14:25 Apresoline PO 25 mg Q8HR KESHIA Administration Sodium Chloride 100 mls @ 999 mls/hr 08/24/19 09:21 Nacl 0.9% IV BRENDAN PRN Hypotension Insulin Human Lispro 0 unit 08/22/19 22:00 08/24/19 12:38 Humalog SUB-Q Not Given ACHS [facility] Protocol Metoclopramide HCl 5 mg 08/22/19 00:26 08/23/19 11:15 Reglan IV 5 mg Q6H PRN Administration Nausea And Vomiting Ondansetron HCl 4 mg 08/21/19 23:10 08/23/19 17:15 Zofran IV 4 mg Q6H PRN Administration Nausea And Vomiting Pantoprazole Sodium 40 mg 08/23/19 11:00 08/24/19 14:24 Protonix PO 40 mg QDAY KESHIA Administration Sodium Bicarbonate 1,300 mg 08/23/19 10:00 08/24/19 14:24 Sodium Bicarbonate PO 1,300 mg BID KESHIA Administration Nutrition/Malnutrition Assess - Dietary Evaluation Nutrition/Malnutrition Findings: Nutrition Notes Start: 08/22/19 12:39 Freq: Status: Active Protocol: Document 08/24/19 12:19 JOSUE (Rec: 08/24/19 12:21 JOSUE [id number] [email or web address]) Nutrition Notes Initial or Follow up Brief Note Current Diet NPO Subjective/Other Information Diet advanced yesterday, but pt currently NPO for procedure today. Pt not in room at time of visit (11:15). He is scheduled for VasCath placement today for initiation of HD. Nutrition Intervention Follow-Up By: 08/25/19 Additional Comments F/U: diet advancement, PO tolerance
[2019-08-24 16:41] LABS: Hepatitis B Surface Antigen Non-Reactive (Negative); Hepatitis C Virus Antibody Non-Reactive (NonReactive)
--- NOTE | 2019-08-24 18:30 | Vascular Lab Report ---
DOPPLER ULTRASOUND UPPER EXTREMITY VENOUS MAPPING, BILATERAL INDICATION: vein mapping for ESRD TECHNIQUE: Grayscale, color and spectral Doppler imaging of the venous system of the right and left upper extrem ities was performed. COMPARISON: None available. FINDINGS: RIGHT UPPER EXTREMITY: Subclavian Vein: Patent. Axillary Vein: Patent. Cephalic Vein (Diameter / Depth in mm): - Upper Arm: 0.22 / not recorded - Mid Arm: 0.11 / - Antecubital: 0.10 / - Upper Forearm: 0.10 / - Mid Forearm: 0.08 / - Wrist: 0.08 / Basilic Vein (Diameter / Depth in mm): - Upper Arm: 0.24 / not recorded - Mid Arm: 0.19 / - Antecubital: 0.12 / - Upper Forearm: 0.14 / - Mid Forearm: 0.08 / - Wrist: 0.09 / Peak systolic velocity within the radial artery is 106 cm/s. Peak systolic velocity within the brachial artery is 80 cm/s. LEFT UPPER EXTREMITY: Subclavian Vein: Patent. Axillary Vein: Patent. Cephalic Vein (Diameter / Depth in mm): - Upper Arm: 0.18 / not recorded - Mid Arm: 0.12 / - Antecubital: 0.11 / - Upper Forearm: 0.1 / - Mid Forearm: 0.12 / - Wrist: 0.08 / Basilic Vein (Diameter / Depth in mm): - Upper Arm: 0.26 / not recorded - Mid Arm: 0.24 / - Antecubital: 0.14 / - Upper Forearm: 0.1 / - Mid Forearm: 0.1 / - Wrist: 0.07 / Peak systolic velocity within the radial artery is 132 cm/s. Peak systolic velocity within the brachial artery is 95 cm/s. Additional Findings: None. IMPRESSION: 1. No thrombus identified. 2. Upper extremity venous mapping as above. Signer Name: Jai Clark MD Signed: 08/24/2019 6:26 PM Workstation Name: [id number]
[2019-08-24] MEDS: oxyCODONE /ACETAMINOPHEN 5-325MG TAB PO PRN (21:15)
[2019-08-25] MEDS: hydrALAZINE 25 MG TAB PO SCH (05:35)
[2019-08-25] MEDS ORDERED: HYDROmorphone 1 MG/1 ML INJ IV PRN (07:17)
[2019-08-25 07:58] LABS: Basophils # (Auto) 0.1 K/mm3 (0.0-0.1); Eosinophils # (Auto) 0.2 K/mm3 (0.0-0.4); Eosinophils % (Auto) 3.6 % (0.0-4.3); Hematocrit 24.3 % (35.5-45.6); Hemoglobin 8.1 gm/dl (11.8-15.2); Lymphocytes # (Auto) 2.8 K/mm3 (1.2-5.4); Lymphocytes % (Auto) 39.7 % (13.4-35.0); Mean Corpuscular HGB Conc 33 % (32-34); Mean Corpuscular Volume 85 fl (84-94); Monocytes # (Auto) 0.5 K/mm3 (0.0-0.8); Monocytes % (Auto) 7.3 % (0.0-7.3); Platelet Count 321 K/mm3 (140-440); Red Blood Count 2.84 M/mm3 (3.65-5.03); Red Cell Distribution Width 14.4 % (13.2-15.2)
[2019-08-25] MEDS: INSULIN LISPRO 100 UNIT/ML SUB-Q SCH ×4 (08:19→21:47)
--- NOTE | 2019-08-25 08:46 | Progress Note ---
Subjective Principal diagnosis: n/v, abd pain Interval history: Patient was seen today for follow-up of multiple renal related issues No complaints of any chest pain pressure or shortness of breath tolerating hemodialysis treatment fairly well Discussed with nurse blood pressure has been on the low side Interdisciplinary notes that also reviewed Events of 24 hours vitals labs intake output medications were reviewed Past medical history: Reviewed Family history: Reviewed Social history: Reviewed Allergies: Reviewed Physical examination: Vitals: Reviewed HEENT: No pallor or icterus oral mucosa moist Neck: Supple no JVD no thyromegaly Chest: Bilateral clear to auscultation anteriorly Heart: Regular rate and rhythm S1-S2 heard no S3-S4 Abdomen: Soft nontender no voluntary guarding rigidity rebound Extremity: Dry skin less than 1+ peripheral edema Psychiatric: No evidence of agitation and aggression noted Dermatology: No petechial rashes Labs and x-rays: Reviewed from today Assessment and plan Acute kidney injury with underlying stage V chronic kidney disease patient has progressed to end-stage renal disease, for hypertension would like to discontinue clonidine and discontinue hydralazine would also like to discontinue sodium bicarbonate will start the patient on losartan Uremia, anemia, accelerated hypertension metabolic acidosis Patient is clinically feeling better He will require fistula once he receives his insurance He will need placement for dialysis in the [facility] coffee-ground emesis could be due to uremic gastritis/peptic ulcer disease Patient will need ongoing dialysis from now on and also requires placement in the outpatient setting renal ultrasound obtained 2017 shows evidence of chronic kidney disease Anemia: Hemoglobin is currently 7.7 Hypokalemia potassium is 3.3 Metabolic acidosis bicarbonate is currently 20 Iron saturation 30% patient will need erythropoietin at least 10,000 units 3 times a week for now We'll check intact PTH, calcium is 7.3 phosphorus 5.7 magnesium 1.8 Patient was adequately counseled and educated regarding all the renal related issues Laboratory studies, pertinent for discussed with patient All questions were answered and simple Spanish We'll continue to follow and make recommendation for renal standpoint Objective - Vital Signs Vital signs: Vital Signs - 12hr 08/24/19 08/24/19 08/24/19 21:15 21:19 21:26 Temperature 97.5 F L Pulse Rate 71 71 Respiratory 18 24 Rate Blood Pressure 138/87 138/87 O2 Sat by Pulse 99 Oximetry 08/24/19 08/25/19 08/25/19 21:28 05:01 05:35 Temperature 97.5 F L Pulse Rate 71 79 Respiratory 24 Rate Blood Pressure 138/87 120/73 120/73 O2 Sat by Pulse Oximetry - Lab 08/25/19 07:28 08/25/19 07:28 Most recent lab results Calcium 7.0 mg/dL (8.4-10.2) L 08/25/19 07:28 Phosphorus 5.70 mg/dL (2.5-4.5) H 08/23/19 08:55 Magnesium 1.80 mg/dL (1.7-2.3) 08/22/19 14:12 Urine Creatinine 142.7 mg/dL (0.1-20.0) H 08/22/19 08:36 Medications & Allergies - Medications Allergies/Adverse Reactions: Allergies No Known Allergies Allergy (Verified 11/21/18 17:51) Home Medications: Home Medications Medication Instructions Recorded Confirmed Last Taken Type ALBUTEROL Inhaler (OR & NICU) 1 puff IH Q4H PRN 08/21/19 08/21/19 Unknown History [Proair] Carvedilol [Coreg] 25 mg PO Q12H 08/21/19 08/21/19 Unknown History Furosemide [Lasix TAB] 40 mg PO BID 08/21/19 08/21/19 Unknown History Lisinopril [Zestril] 5 mg PO QDAY 08/21/19 08/21/19 Unknown History Metoclopramide [Reglan ORAL LIQ] 10 mg PO QID 08/21/19 08/21/19 Unknown History Pantoprazole [Protonix TAB] 40 mg PO BIDAC 08/21/19 08/21/19 Unknown History hydrALAZINE [Apresoline] 25 mg PO Q8HR 08/21/19 08/21/19 Unknown History Active Medications: Generic Name Dose Route Start Last Admin Trade Name Freq PRN Reason Stop Dose Admin Albumin Human 25 gm 08/23/19 10:13 Alburx 25% (Albumin) IV BRENDAN PRN Hypotension Albuterol 2.5 mg 08/22/19 00:01 Proventil IH Q4HRT PRN Shortness Of Breath Carvedilol 25 mg 08/23/19 10:00 08/24/19 21:26 Coreg PO 25 mg Q12H KESHIA Administration Clonidine HCl 0.3 mg 08/22/19 10:00 08/22/19 09:53 Catapres-Tts Patch TD 0.3 mg Sa KESHIA Administration Epoetin Wale 10,000 unit 08/23/19 10:13 08/24/19 13:00 Procrit IV 10,000 unit BRENDAN PRN Administration hemodialysis Hydralazine HCl 20 mg 08/22/19 12:29 08/23/19 05:34 Apresoline IV 20 mg Q4H PRN Administration SBP>160 or DBP>110 Hydralazine HCl 25 mg 08/23/19 10:00 08/25/19 05:35 Apresoline PO 25 mg Q8HR KESHIA Administration Hydromorphone HCl 0.5 mg 08/25/19 07:17 Dilaudid IV Q3H PRN Pain , Severe (7-10) Sodium Chloride 100 mls @ 999 mls/hr 08/24/19 09:21 Nacl 0.9% IV BRENDAN PRN Hypotension Insulin Human Lispro 0 unit 08/22/19 22:00 08/25/19 08:19 Humalog SUB-Q 4 unit ACHS KESHIA Administration Protocol Metoclopramide HCl 5 mg 08/22/19 00:26 08/23/19 11:15 Reglan IV 5 mg Q6H PRN Administration Nausea And Vomiting Ondansetron HCl 4 mg 08/21/19 23:10 08/23/19 17:15 Zofran IV 4 mg Q6H PRN Administration Nausea And Vomiting Oxycodone/Acetaminophen 1 tab 08/24/19 20:39 08/24/19 21:15 Percocet 5/325 PO 1 tab Q6H PRN Administration Pain, Moderate (4-6) Pantoprazole Sodium 40 mg 08/23/19 11:00 08/24/19 14:24 Protonix PO 40 mg QDAY KESHIA Administration Sodium Bicarbonate 1,300 mg 08/23/19 10:00 08/24/19 21:25 Sodium Bicarbonate PO 1,300 mg BID KESHIA Administration
[2019-08-25] MEDS: PANTOPRAZOLE 40 MG TAB PO SCH (10:14)
[2019-08-25] MEDS: CARVEDILOL 25 MG TAB PO SCH ×2 (10:17→21:45)
[2019-08-25] MEDS: LOSARTAN 50 MG TAB PO SCH (10:17)
--- NOTE | 2019-08-25 18:51 | Progress Note ---
Assessment and Plan Assessment and plan: Patient is 33-year-old -[place] male presents to the emergency department via EMS from home with complaint of abdominal pain, nausea, vomiting and vomiting of blood that has been going on for 3 days prior to presentation. The patient does have a history of ulcerative esophagitis, gastroparesis, CKD stage 5 not on without hemodialysis, diabetes, hypertension. 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 He was seen and evaluated in ED and admitted. he was evaluated by Nephrology and GI Physician. Conservative management was recommended by GI Physician since he has had EGD X 2 this year. Nephrology recommend to initiate dialysis fo acute on chronic kidney disease stage 5, going to ESRD. hemodialysis cather placed today. Upper GI bleed IV protonix IV zofran and IV Reglan GI consulted, following No indication for EGD for now Gastroparesis IV Reglan and IV Zofran for now IDDM (insulin dependent diabetes mellitus) Accu cheks Qac Acute on CKD stage 5 To initiate hemodiialysis Dialysis catheter placed Hypertension Monitor BP Asthma Albuterol MDI qid prn Anemia due to acute blood loss from GI bleed and ESRD Hgb 7.7 after 1 Unit PRBC Hypernatremia Malnutrition Dietitian consult DVT prophylaxis SCD's only because GI bleed History Interval history: Patient seen and examined, reports no new complaints. Hospitalist Physical - Physical exam Narrative exam: Gen: Not in acute distress, lying in bed, HEENT: Normocephalic, atraumatic Neck: supple, no JVD Heart: S1 and S2 reg, no murmurs, rubs or gallop Lungs: Clear to auscultation, no rhonchi, no wheeze Abd: soft, non tender, non distended, normal BS, Ext: No edema, no clubbing, no cyanosis, swelling on the left upper ext, non tender. Neuro: Awake, alert, oriented X 3, no focal neurological signs, - Constitutional Vitals: Temp Pulse Resp BP Pulse Ox 98.4 F 70 16 120/73 100 08/25/19 16:51 08/25/19 16:51 08/25/19 16:51 08/25/19 16:51 08/25/19 16:51 General appearance: Present: no acute distress Results - Labs CBC & Chem 7: 08/26/19 05:18 08/26/19 05:18 Labs: Laboratory Last Values WBC 7.0 K/mm3 (4.5-11.0) 08/25/19 07:28 RBC 2.84 M/mm3 (3.65-5.03) L 08/25/19 07:28 Hgb 8.1 gm/dl (11.8-15.2) L 08/25/19 07:28 Hct 24.3 % (35.5-45.6) L 08/25/19 07:28 MCV 85 fl (84-94) 08/25/19 07:28 MCH 28 pg (28-32) 08/25/19 07: MCHC 33 % (32-34) 08/25/19 07: RDW 14.4 % (13.2-15.2) 08/25/19 07:28 Plt Count 321 K/mm3 (140-440) 08/25/19 07:28 Lymph % (Auto) 39.7 % (13.4-35.0) H 08/25/19 07:28 [place] % (Auto) 7.3 % (0.0-7.3) 08/25/19 07:28 Eos % (Auto) 3.6 % (0.0-4.3) 08/25/19 07: Baso % (Auto) 1.0 % (0.0-1.8) 08/25/19 07:28 Lymph # 2.8 K/mm3 (1.2-5.4) 08/25/19 07:28 [place] # 0.5 K/mm3 (0.0-0.8) 08/25/19 07:28 Eos # 0.2 K/mm3 (0.0-0.4) 08/25/19 07:28 Baso # 0.1 K/mm3 (0.0-0.1) 08/25/19 07:28 Seg Neutrophils % 48.4 % (40.0-70.0) 08/25/19 07: Seg Neutrophils # 3.4 K/mm3 (1.8-7.7) 08/25/19 07:28 PT 14.1 Sec. (12.2-14.9) 08/21/19 10:20 INR 1.12 (0.87-1.13) 08/21/19 10:20 APTT 34.3 Sec. (24.2-36.6) 08/21/19 10:20 Sodium 133 mmol/L (137-145) L 08/25/19 07:28 Potassium 3.6 mmol/L (3.6-5.0) 08/25/19 07:28 Chloride 97.1 mmol/L (98-107) L 08/25/19 07:28 Carbon Dioxide 23 mmol/L (22-30) 08/25/19 07:28 Anion Gap 17 mmol/L 08/25/19 07:28 BUN 49 mg/dL (9-20) H 08/25/19 07:28 Creatinine 8.4 mg/dL (0.8-1.5) H 08/25/19 07:28 Estimated GFR 9 ml/min 08/25/19 07:28 BUN/Creatinine Ratio 6 % 08/25/19 07:28 Glucose 258 mg/dL (75-100) H 08/25/19 07:28 POC Glucose 131 (70-105) H 08/25/19 17:03 Calcium 7.0 mg/dL (8.4-10.2) L 08/25/19 07:28 Phosphorus 5.70 mg/dL (2.5-4.5) H 08/23/19 08:55 Magnesium 1.80 mg/dL (1.7-2.3) 08/22/19 14:12 Iron 48 ug/dL (49-181) L 08/23/19 08:55 TIBC 158 mcg/dL (250-450) L 08/23/19 08:55 % Saturation 30.38 % 08/23/19 08:55 Transferrin 138 mg/dl (180-329) L 08/23/19 08:55 Ferritin 211.5 ng/mL (13.0-400.0) 08/24/19 03:01 Total Bilirubin 0.30 mg/dL (0.1-1.2) 08/21/19 10:29 AST 16 units/L (5-40) 08/21/19 10:29 ALT 9 units/L (7-56) 08/21/19 10:29 Alkaline Phosphatase 57 units/L (35-129) 08/21/19 10:29 Total Protein 6.0 g/dL (6.3-8.2) L 08/21/19 10:29 Albumin 2.5 g/dL (3.9-5) L 08/21/19 10:29 Albumin/Globulin Ratio 0.7 % 08/21/19 10:29 Urine Color Yellow (Yellow) 08/23/19 11:43 Urine Turbidity Clear (Clear) 08/23/19 11:43 Urine pH 6.0 (5.0-7.0) 08/23/19 11:43 Ur Specific [place] 1.016 (1.003-1.030) 08/23/19 11:43 Urine Protein >500 mg/dL (Negative) 08/23/19 11:43 Urine Glucose (UA) >=500 mg/dL (Negative) 08/23/19 11:43 Urine Ketones Neg mg/dL (Negative) 08/23/19 11:43 Urine Blood Sm (Negative) 08/23/19 11:43 Urine Nitrite Neg (Negative) 08/23/19 11:43 Urine Bilirubin Neg (Negative) 08/23/19 11:43 Urine Urobilinogen < 2.0 mg/dL (<2.0) 08/23/19 11:43 Ur Leukocyte Esterase Neg (Negative) 08/23/19 11:43 Urine WBC (Auto) 5.0 /HPF (0.0-6.0) 08/23/19 11:43 Urine RBC (Auto) 1.0 /HPF (0.0-6.0) 08/23/19 11:43 U Epithel Cells (Auto) < 1.0 /HPF (0-13.0) 08/23/19 11:43 Urine Bacteria (Auto) 1+ /HPF (Negative) 08/23/19 11:43 Hyaline Casts 6 /LPF 08/23/19 11:43 Urine Mucus Few /HPF 08/23/19 11:43 Urine Eosinophils None seen (None Seen) 08/23/19 11:43 Urine Total Volume 1200 ml 08/22/19 08:36 Urine Creatinine 142.7 mg/dL (0.1-20.0) H 08/22/19 08:36 Ur Creatinine 24 Hour 1.7 (0.8-2.8) 08/22/19 08:36 Hepatitis A IgM Ab Non-reactive (NonReactive) 08/24/19 15:01 Hep Bs Antigen Non-reactive (Negative) 08/24/19 15:01 Hep B Core IgM Ab Non-reactive (NonReactive) 08/24/19 15:01 Hepatitis C Antibody Non-reactive (NonReactive) 08/24/19 15:01 Blood Type O POSITIVE 08/21/19 10:20 Antibody Screen Negative 08/21/19 10:20 Crossmatch See Detail 08/21/19 10:20 Active Medications - Current Medications Current Medications: Generic Name Dose Route Start Last Admin Trade Name Freq PRN Reason Stop Dose Admin Albumin Human 25 gm 08/23/19 10:13 Alburx 25% (Albumin) IV BRENDAN PRN Hypotension Albuterol 2.5 mg 08/22/19 00:01 Proventil IH Q4HRT PRN Shortness Of Breath Carvedilol 25 mg 08/23/19 10:00 08/25/19 10:17 Coreg PO Not Given Q12H [facility] Epoetin [place]ale 10,000 unit 08/23/19 10:13 08/24/19 13:00 Procrit IV 10,000 unit BRENDAN PRN Administration hemodialysis Hydralazine HCl 20 mg 08/22/19 12:29 08/23/19 05:34 Apresoline IV 20 mg Q4H PRN Administration SBP>160 or DBP>110 Hydromorphone HCl 0.5 mg 08/25/19 07:17 Dilaudid IV Q3H PRN Pain , Severe (7-10) Sodium Chloride 100 mls @ 999 mls/hr 08/24/19 09:21 Nacl 0.9% IV BRENDAN PRN Hypotension Insulin Human Lispro 0 unit 08/22/19 22:00 08/25/19 17:07 Humalog SUB-Q Not Given ACHS [facility] Protocol Losartan Potassium 100 mg 08/25/19 10:00 08/25/19 10:17 Cozaar PO Not Given QDAY KESHIA Metoclopramide HCl 5 mg 08/22/19 00:26 08/23/19 11:15 Reglan IV 5 mg Q6H PRN Administration Nausea And Vomiting Ondansetron HCl 4 mg 08/21/19 23:10 08/23/19 17:15 Zofran IV 4 mg Q6H PRN Administration Nausea And Vomiting Oxycodone/Acetaminophen 1 tab 08/24/19 20:39 08/24/19 21:15 Percocet 5/325 PO 1 tab Q6H PRN Administration Pain, Moderate (4-6) Pantoprazole Sodium 40 mg 08/23/19 11:00 08/25/19 10:14 Protonix PO 40 mg QDAY KESIHA Administration Nutrition/Malnutrition Assess - Dietary Evaluation Nutrition/Malnutrition Findings: Nutrition Notes Start: 08/22/19 12:39 Freq: Status: Active Protocol: Document 08/25/19 10:31 CC (Rec: 08/25/19 13:40 CC [email or web address]) Co-Sign 08/25/19 10:31 KH Nutrition Notes Initial or Follow up Reassessment Current Diagnosis CKD(stage I-IV),Diabetes, Hypertension Other Pertinent Diagnosis Upper GIB, Anemia, Gastroparesis Current Diet Renal Labs/Tests Na 133, GFR 9, Creat 8.4, BUN 49, Glu 258 Pertinent Medications Reviewed Height 6 ft 3 in Weight 85.4 kg Usual Body Weight 88.6 kg [place] Body Weight (kg) 89.09 BMI 23.5 Intake Prior to Admission Good Weight change and time frame Pt continues to deny recent wt loss. Pt denied holding fluid Weight Status Appropriate Subjective/Other Information F/U for diet advancement, PO tolerance Advanced to renal diet per pt tolerating well. Per ADL note pt consumed 75% of dinner . Nurse stated pt has been asking for more food and requested double portions. Pharmaceutical Officer observed 100% of lunch consumed. Pt has no visible signs of muscle or fat wasting Percent of energy/protein needs met: 85%/100% Burn Absent Trauma Absent Current % PO Good (75-100%) Minimum of two criteria No physical signs of malnutrition #2 Nutrition Diagnosis Food and nutrition-related knowledge deficit Etiology Pt is to begin HD once placement is found As Evidenced by Signs and Symptoms Pt report of no knowledge of renal diet #1 Nutrition Diagnosis Altered GI function As Evidenced by Signs and Symptoms Pt tolerating renal diet Diagnosis Progress(for reassessment Resolved documentation) Is patient on ventilator? No Is Patient Ambulatory and/or Out of Bed Yes REE-([place]-St. Jeor-ambulatory/OOB) [ 2463.019 [id number]] Calculation Used for Recommendations [place]-St Jeor Additional Notes Pro needs 0.8-0.9g/k-80g/ day Fluid needs 1ml/kcal Nutrition Intervention Change Diet Order: Continue renal diet Teaching Recipient Patient Learning Readiness Good Teaching Methods Discussion,Handout Response to Teaching Verbalize understanding Education Handouts Provided CKD Stage 5 Tips for People on Dialysis Barriers to Learning Financial RD phone number provided Yes Patient aware of follow up options Yes Anticipated Discharge Needs: Renal/CHO-controlled diet Revisit per MD consult or patient Sign Off request:
[2019-08-26 05:40] LABS: Basophils # (Auto) 0.1 K/mm3 (0.0-0.1); Basophils % (Auto) 0.8 % (0.0-1.8); Eosinophils # (Auto) 0.3 K/mm3 (0.0-0.4); Eosinophils % (Auto) 3.9 % (0.0-4.3); Hematocrit 26.4 % (35.5-45.6); Hemoglobin 8.8 gm/dl (11.8-15.2); Lymphocytes # (Auto) 2.9 K/mm3 (1.2-5.4); Lymphocytes % (Auto) 36.6 % (13.4-35.0); Mean Corpuscular HGB Conc 33 % (32-34); Mean Corpuscular Volume 85 fl (84-94); Monocytes # (Auto) 0.7 K/mm3 (0.0-0.8); Monocytes % (Auto) 8.6 % (0.0-7.3); Platelet Count 349 K/mm3 (140-440); Red Blood Count 3.09 M/mm3 (3.65-5.03); Red Cell Distribution Width 14.7 % (13.2-15.2)
[2019-08-26 06:06] LABS: Calcium 7.5 mg/dL (8.4-10.2)
[2019-08-26] MEDS: INSULIN LISPRO 100 UNIT/ML SUB-Q SCH ×4 (07:30→22:55)
[2019-08-26] MEDS: CARVEDILOL 25 MG TAB PO SCH ×2 (09:25→22:57)
[2019-08-26] MEDS: LOSARTAN 50 MG TAB PO SCH (09:26)
[2019-08-26] MEDS: PANTOPRAZOLE 40 MG TAB PO SCH (09:30)
--- NOTE | 2019-08-26 11:04 | Progress Note ---
Subjective Principal diagnosis: n/v, abd pain Interval history: Patient was seen today for follow-up of multiple renal related issues No complaints of any chest pain pressure or shortness of breath currently on dialysis now will require 3 times a week Interdisciplinary notes that also reviewed Events of 24 hours vitals labs intake output medications were reviewed Past medical history: Reviewed Family history: Reviewed Social history: Reviewed Allergies: Reviewed Physical examination: Vitals: Reviewed HEENT: No pallor or icterus oral mucosa moist Neck: Supple no JVD no thyromegaly Chest: Bilateral clear to auscultation anteriorly Heart: Regular rate and rhythm S1-S2 heard no S3-S4 Abdomen: Soft nontender no voluntary guarding rigidity rebound Extremity: Dry skin less than 1+ peripheral edema Psychiatric: No evidence of agitation and aggression noted Dermatology: No petechial rashes Labs and x-rays: Reviewed from today Assessment and plan end-stage renal disease continue with hemodialysis Saturday Gastritis peptic ulcer disease coffee-ground emesis being followed by gastroenterology service Will place him on hemodialysis Saturday and Saturday Monitor dialysis-related labs periodically Needs outpatient placement had dialysis facility Current dialysis access is central venous catheter Fistula when he gets insurance renal ultrasound obtained 2017 shows evidence of chronic kidney disease Metabolic acidosis bicarbonate is currently 20 Iron saturation 30% patient will need erythropoietin at least 10,000 units 3 times a week for now We'll check intact PTH, calcium is 7.3 phosphorus 5.7 magnesium 1.8 Patient was adequately counseled and educated regarding all the renal related issues Laboratory studies, pertinent for discussed with patient All questions were answered and simple Swedish We'll continue to follow and make recommendation for renal standpoint Objective - Vital Signs Vital signs: Vital Signs - 12hr 08/26/19 08/26/19 08/26/19 05:27 09:25 09:26 Temperature 98.1 F Pulse Rate 76 76 76 Respiratory 18 Rate Blood Pressure 120/78 107/61 107/61 O2 Sat by Pulse 99 Oximetry - Lab 08/26/19 05:18 08/26/19 05:18 Most recent lab results Calcium 7.5 mg/dL (8.4-10.2) L 08/26/19 05:18 Phosphorus 5.70 mg/dL (2.5-4.5) H 08/23/19 08:55 Magnesium 1.80 mg/dL (1.7-2.3) 08/22/19 14:12 Urine Creatinine 142.7 mg/dL (0.1-20.0) H 08/22/19 08:36 Medications & Allergies - Medications Allergies/Adverse Reactions: Allergies No Known Allergies Allergy (Verified 11/21/18 17:51) Home Medications: Home Medications Medication Instructions Recorded Confirmed Last Taken Type ALBUTEROL Inhaler (OR & NICU) 1 puff IH Q4H PRN 08/21/19 08/21/19 Unknown History [Proair] Carvedilol [Coreg] 25 mg PO Q12H 08/21/19 08/21/19 Unknown History Furosemide [Lasix TAB] 40 mg PO BID 08/21/19 08/21/19 Unknown History Lisinopril [Zestril] 5 mg PO QDAY 08/21/19 08/21/19 Unknown History Metoclopramide [Reglan ORAL LIQ] 10 mg PO QID 08/21/19 08/21/19 Unknown History Pantoprazole [Protonix TAB] 40 mg PO BIDAC 08/21/19 08/21/19 Unknown History hydrALAZINE [Apresoline] 25 mg PO Q8HR 08/21/19 08/21/19 Unknown History Active Medications: Generic Name Dose Route Start Last Admin Trade Name Freq PRN Reason Stop Dose Admin Albumin Human 25 gm 08/23/19 10:13 Alburx 25% (Albumin) IV BRENDAN PRN Hypotension Albuterol 2.5 mg 08/22/19 00:01 Proventil IH Q4HRT PRN Shortness Of Breath Carvedilol 25 mg 08/23/19 10:00 08/26/19 09:25 Coreg PO Not Given Q12H KESHIA Epoetin [place] 10,000 unit 08/23/19 10:13 08/24/19 13:00 Procrit IV 10,000 unit BRENDAN PRN Administration hemodialysis Hydralazine HCl 20 mg 08/22/19 12:29 08/23/19 05:34 Apresoline IV 20 mg Q4H PRN Administration SBP>160 or DBP>110 Hydromorphone HCl 0.5 mg 08/25/19 07:17 Dilaudid IV Q3H PRN Pain , Severe (7-10) Sodium Chloride 100 mls @ 999 mls/hr 08/24/19 09:21 Nacl 0.9% IV BRENDAN PRN Hypotension Insulin Human Lispro 0 unit 08/22/19 22:00 08/26/19 07:30 Humalog SUB-Q 3 unit ACHS KESHIA Administration Protocol Losartan Potassium 100 mg 08/25/19 10:00 08/26/19 09:26 Cozaar PO Not Given QDAY KESHIA Metoclopramide HCl 5 mg 08/22/19 00:26 08/23/19 11:15 Reglan IV 5 mg Q6H PRN Administration Nausea And Vomiting Ondansetron HCl 4 mg 08/21/19 23:10 08/23/19 17:15 Zofran IV 4 mg Q6H PRN Administration Nausea And Vomiting Oxycodone/Acetaminophen 1 tab 08/24/19 20:39 08/24/19 21:15 Percocet 5/325 PO 1 tab Q6H PRN Administration Pain, Moderate (4-6) Pantoprazole Sodium 40 mg 08/23/19 11:00 08/26/19 09:30 Protonix PO 40 mg QDAY KESHIA Administration
--- NOTE | 2019-08-26 15:49 | Progress Note ---
Assessment and Plan Assessment and plan: Patient is 33-year-old -[place] male presents to the emergency department via EMS from home with complaint of abdominal pain, nausea, vomiting and vomiting of blood that has been going on for 3 days prior to presentation. The patient does have a history of ulcerative esophagitis, gastroparesis, CKD stage 5 not on without hemodialysis, diabetes, hypertension. 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 He was seen and evaluated in ED and admitted. he was evaluated by Nephrology and GI Physician. Conservative management was recommended by GI Physician since he has had EGD X 2 this year. Nephrology recommend to initiate dialysis fo acute on chronic kidney disease stage 5, going to ESRD. hemodialysis cather placed today. Acute on CKD stage 5 Started on hemodilaysis Dialysis catheter placed Upper GI bleed IV protonix IV zofran and IV Reglan GI consulted, following No indication for EGD for now will consider changing to PO Gastroparesis IV Reglan and IV Zofran for now IDDM (insulin dependent diabetes mellitus) Accu cheks Qac Hypertension Monitor BP Asthma Albuterol MDI qid prn Anemia due to acute blood loss from GI bleed and ESRD Hgb 7.7 after 1 Unit PRBC now 8.8 Hypernatremia Malnutrition Dietitian consult DVT prophylaxis SCD's only because GI bleed awaiting placement for dialysis chiar time History Interval history: Patient seen and examined, reports no new complaints. had reported right upper ext swelling, now improved Hospitalist Physical - Physical exam Narrative exam: Gen: Not in acute distress, lying in bed, HEENT: Normocephalic, atraumatic Neck: supple, no JVD Heart: S1 and S2 reg, no murmurs, rubs or gallop Lungs: Clear to auscultation, no rhonchi, no wheeze Abd: soft, non tender, non distended, normal BS, Ext: No edema, no clubbing, no cyanosis, swelling on the left upper ext now improved, non tender. Neuro: Awake, alert, oriented X 3, no focal neurological signs, - Constitutional Vitals: Temp Pulse Resp BP Pulse Ox 98.1 F 69 20 122/79 100 08/26/19 12:16 08/26/19 12:16 08/26/19 12:16 08/26/19 12:16 08/26/19 12:16 General appearance: Present: no acute distress Results - Labs CBC & Chem 7: 08/26/19 05:18 08/26/19 05:18 Labs: Laboratory Last Values WBC 7.9 K/mm3 (4.5-11.0) 08/26/19 05:18 RBC 3.09 M/mm3 (3.65-5.03) L 08/26/19 05:18 Hgb 8.8 gm/dl (11.8-15.2) L 08/26/19 05:18 Hct 26.4 % (35.5-45.6) L 08/26/19 05:18 MCV 85 fl (84-94) 08/26/19 05:18 MCH 28 pg (28-32) 08/26/19 05:18 MCHC 33 % (32-34) 08/26/19 05:18 RDW 14.7 % (13.2-15.2) 08/26/19 05:18 Plt Count 349 K/mm3 (140-440) 08/26/19 05:18 Lymph % (Auto) 36.6 % (13.4-35.0) H 08/26/19 05:18 [place] % (Auto) 8.6 % (0.0-7.3) H 08/26/19 05:18 Eos % (Auto) 3.9 % (0.0-4.3) 08/26/19 05:18 Baso % (Auto) 0.8 % (0.0-1.8) 08/26/19 05:18 Lymph # 2.9 K/mm3 (1.2-5.4) 08/26/19 05:18 [place] # 0.7 K/mm3 (0.0-0.8) 08/26/19 05:18 Eos # 0.3 K/mm3 (0.0-0.4) 08/26/19 05:18 Baso # 0.1 K/mm3 (0.0-0.1) 08/26/19 05:18 Seg Neutrophils % 50.1 % (40.0-70.0) 08/26/19 05:18 Seg Neutrophils # 3.9 K/mm3 (1.8-7.7) 08/26/19 05:18 PT 14.1 Sec. (12.2-14.9) 08/21/19 10:20 INR 1.12 (0.87-1.13) 08/21/19 10:20 APTT 34.3 Sec. (24.2-36.6) 08/21/19 10:20 Sodium 136 mmol/L (137-145) L 08/26/19 05:18 Potassium 3.6 mmol/L (3.6-5.0) 08/26/19 05:18 Chloride 99.6 mmol/L (98-107) 08/26/19 05:18 Carbon Dioxide 23 mmol/L (22-30) 08/26/19 05:18 Anion Gap 17 mmol/L 08/26/19 05:18 BUN 52 mg/dL (9-20) H 08/26/19 05:18 Creatinine 8.9 mg/dL (0.8-1.5) H 08/26/19 05:18 Estimated GFR 8 ml/min 08/26/19 05:18 BUN/Creatinine Ratio 6 % 08/26/19 05:18 Glucose 165 mg/dL (75-100) H 08/26/19 05:18 POC Glucose 186 (70-105) H 08/26/19 12:26 Calcium 7.5 mg/dL (8.4-10.2) L 08/26/19 05:18 Phosphorus 5.70 mg/dL (2.5-4.5) H 08/23/19 08:55 Magnesium 1.80 mg/dL (1.7-2.3) 08/22/19 14:12 Iron 48 ug/dL (49-181) L 08/23/19 08:55 TIBC 158 mcg/dL (250-450) L 08/23/19 08:55 % Saturation 30.38 % 08/23/19 08:55 Transferrin 138 mg/dl (180-329) L 08/23/19 08:55 Ferritin 211.5 ng/mL (13.0-400.0) 08/24/19 03:01 Total Bilirubin 0.30 mg/dL (0.1-1.2) 08/21/19 10:29 AST 16 units/L (5-40) 08/21/19 10:29 ALT 9 units/L (7-56) 08/21/19 10:29 Alkaline Phosphatase 57 units/L (35-129) 08/21/19 10:29 Total Protein 6.0 g/dL (6.3-8.2) L 08/21/19 10:29 Albumin 2.5 g/dL (3.9-5) L 08/21/19 10: Albumin/Globulin Ratio 0.7 % 08/21/19 10:29 Urine Color Yellow (Yellow) 08/23/19 11:43 Urine Turbidity Clear (Clear) 08/23/19 11:43 Urine pH 6.0 (5.0-7.0) 08/23/19 11:43 Ur Specific [place] 1.016 (1.003-1.030) 08/23/19 11:43 Urine Protein >500 mg/dL (Negative) 08/23/19 11:43 Urine Glucose (UA) >=500 mg/dL (Negative) 08/23/19 11:43 Urine Ketones Neg mg/dL (Negative) 08/23/19 11:43 Urine Blood Sm (Negative) 08/23/19 11:43 Urine Nitrite Neg (Negative) 08/23/19 11:43 Urine Bilirubin Neg (Negative) 08/23/19 11:43 Urine Urobilinogen < 2.0 mg/dL (<2.0) 08/23/19 11:43 Ur Leukocyte Esterase Neg (Negative) 08/23/19 11:43 Urine WBC (Auto) 5.0 /HPF (0.0-6.0) 08/23/19 11:43 Urine RBC (Auto) 1.0 /HPF (0.0-6.0) 08/23/19 11:43 U Epithel Cells (Auto) < 1.0 /HPF (0-13.0) 08/23/19 11:43 Urine Bacteria (Auto) 1+ /HPF (Negative) 08/23/19 11:43 Hyaline Casts 6 /LPF 08/23/19 11:43 Urine Mucus Few /HPF 08/23/19 11:43 Urine Eosinophils None seen (None Seen) 08/23/19 11:43 Urine Total Volume 1200 ml 08/22/19 08:36 Urine Creatinine 142.7 mg/dL (0.1-20.0) H 08/22/19 08:36 Ur Creatinine 24 Hour 1.7 (0.8-2.8) 08/22/19 08:36 Hepatitis A IgM Ab Non-reactive (NonReactive) 08/24/19 15:01 Hep Bs Antigen Non-reactive (Negative) 08/24/19 15:01 Hep B Core IgM Ab Non-reactive (NonReactive) 08/24/19 15:01 Hepatitis C Antibody Non-reactive (NonReactive) 08/24/19 15:01 Blood Type O POSITIVE 08/21/19 10:20 Antibody Screen Negative 08/21/19 10:20 Crossmatch See Detail 08/21/19 10:20 Active Medications - Current Medications Current Medications: Generic Name Dose Route Start Last Admin Trade Name Freq PRN Reason Stop Dose Admin Albumin Human 25 gm 08/23/19 10:13 Alburx 25% (Albumin) IV BRENDAN PRN Hypotension Albuterol 2.5 mg 08/22/19 00:01 Proventil IH Q4HRT PRN Shortness Of Breath Carvedilol 25 mg 08/23/19 10:00 08/26/19 09:25 Coreg PO Not Given Q12H KESHIA Epoetin [place] 10,000 unit 08/23/19 10:13 08/24/19 13:00 Procrit IV 10,000 unit BRENDAN PRN Administration hemodialysis Hydralazine HCl 20 mg 08/22/19 12:29 08/23/19 05:34 Apresoline IV 20 mg Q4H PRN Administration SBP>160 or DBP>110 Hydromorphone HCl 0.5 mg 08/25/19 07:17 Dilaudid IV Q3H PRN Pain , Severe (7-10) Sodium Chloride 100 mls @ 999 mls/hr 08/24/19 09:21 Nacl 0.9% IV BRENDAN PRN Hypotension Insulin Human Lispro 0 unit 08/22/19 22:00 08/26/19 11:30 Humalog SUB-Q 2 unit ACHS KESHIA Administration Protocol Losartan Potassium 100 mg 08/25/19 10:00 08/26/19 09:26 Cozaar PO Not Given QDAY KESHIA Metoclopramide HCl 5 mg 08/22/19 00:26 08/23/19 11:15 Reglan IV 5 mg Q6H PRN Administration Nausea And Vomiting Ondansetron HCl 4 mg 08/21/19 23:10 08/23/19 17:15 Zofran IV 4 mg Q6H PRN Administration Nausea And Vomiting Oxycodone/Acetaminophen 1 tab 08/24/19 20:39 08/24/19 21:15 Percocet 5/325 PO 1 tab Q6H PRN Administration Pain, Moderate (4-6) Pantoprazole Sodium 40 mg 08/23/19 11:00 08/26/19 09:30 Protonix PO 40 mg QDAY KESHIA Administration Nutrition/Malnutrition Assess - Dietary Evaluation Nutrition/Malnutrition Findings: Nutrition Notes Start: 08/22/19 12:39 Freq: Status: Active Protocol: Document 08/25/19 10:31 CC (Rec: 08/25/19 13:40 CC [email or web address]) Co-Sign 08/25/19 10:31 KH Nutrition Notes Initial or Follow up Reassessment Current Diagnosis CKD(stage I-IV),Diabetes, Hypertension Other Pertinent Diagnosis Upper GIB, Anemia, Gastroparesis Current Diet Renal Labs/Tests Na 133, GFR 9, Creat 8.4, BUN 49, Glu 258 Pertinent Medications Reviewed Height 6 ft 3 in Weight 85.4 kg Usual Body Weight 88.6 kg [place] Body Weight (kg) 89.09 BMI 23.5 Intake Prior to Admission Good Weight change and time frame Pt continues to deny recent wt loss. Pt denied holding fluid Weight Status Appropriate Subjective/Other Information F/U for diet advancement, PO tolerance Advanced to renal diet per pt tolerating well. Per ADL note pt consumed 75% of dinner . Nurse stated pt has been asking for more food and requested double portions. Proof Tester observed 100% of lunch consumed. Pt has no visible signs of muscle or fat wasting Percent of energy/protein needs met: 85%/100% Burn Absent Trauma Absent Current % PO Good (75-100%) Minimum of two criteria No physical signs of malnutrition #2 Nutrition Diagnosis Food and nutrition-related knowledge deficit Etiology Pt is to begin HD once placement is found As Evidenced by Signs and Symptoms Pt report of no knowledge of renal diet #1 Nutrition Diagnosis Altered GI function As Evidenced by Signs and Symptoms Pt tolerating renal diet Diagnosis Progress(for reassessment Resolved documentation) Is patient on ventilator? No Is Patient Ambulatory and/or Out of Bed Yes REE-([place]-St. Jeor-ambulatory/OOB) [ 2463.019 [id number]] Calculation Used for Recommendations [place] Jeor Additional Notes Pro needs 0.8-0.9g/k-80g/ day Fluid needs 1ml/kcal Nutrition Intervention Change Diet Order: Continue renal diet Teaching Recipient Patient Learning Readiness Good Teaching Methods Discussion,Handout Response to Teaching Verbalize understanding Education Handouts Provided CKD Stage 5 Tips for People on Dialysis Barriers to Learning Financial RD phone number provided Yes Patient aware of follow up options Yes Anticipated Discharge Needs: Renal/CHO-controlled diet Revisit per MD consult or patient Sign Off request:
[2019-08-26] MEDS: EPOETIN ALFA 10,000 UNIT/1 ML INJ IV PRN (19:10)
[2019-08-27 06:48] LABS: Calcium 7.4 mg/dL (8.4-10.2)
--- NOTE | 2019-08-27 08:27 | Progress Note ---
Assessment and Plan Assessment and plan: Patient is 33-year-old -[place] male presents to the emergency department via EMS from home with complaint of abdominal pain, nausea, vomiting and vomiting of blood that has been going on for 3 days prior to presentation. The patient does have a history of ulcerative esophagitis, gastroparesis, CKD stage 5 not on without hemodialysis, diabetes, hypertension. 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 He was seen and evaluated in ED and admitted. he was evaluated by Nephrology and GI Physician. Conservative management was recommended by GI Physician since he has had EGD X 2 this year. Nephrology recommend to initiate dialysis fo acute on chronic kidney disease stage 5, going to ESRD. hemodialysis cather placed today. ESRD Started on hemodilysis AND PLAN FOR MWF outpatient Dialysis catheter placed Awaiting outpatient placement Metabolic acidosis Secondary to Renal function, will continue to monitor Upper GI bleed switch to PO PPI GI following No indication for EGD for now Gastroparesis IV Reglan and IV Zofran for now Resolved, tolerating PO IDDM (insulin dependent diabetes mellitus) Accu cheks Qac AND adjust as needed Check A1c Hypertension Monitor BP Asthma Albuterol MDI qid prn Anemia due to acute blood loss from GI bleed and ESRD Hgb 7.7 after 1 Unit PRBC now 8.8 Hypernatremia-RESOLVED Malnutrition Dietitian consult DVT prophylaxis SCD's only because GI bleed awaiting placement for dialysis chair time History Interval history: Patient seen and examined, reports no new complaints. had reported right upper ext swelling, now improved Hospitalist Physical - Physical exam Narrative exam: Gen: Not in acute distress, lying in bed, HEENT: Normocephalic, atraumatic Neck: supple, no JVD Heart: S1 and S2 reg, no murmurs, rubs or gallop Lungs: Clear to auscultation, no rhonchi, no wheeze Abd: soft, non tender, non distended, normal BS, Ext: No edema, no clubbing, no cyanosis, swelling on the left upper ext now improved, non tender. skin: Right chest wall tunnel catheter Neuro: Awake, alert, oriented X 3, no focal neurological signs, - Constitutional Vitals: Temp Pulse Resp BP Pulse Ox 98.3 F 69 18 158/95 100 08/27/19 05:26 08/27/19 05:26 08/27/19 05:26 08/27/19 05:26 08/27/19 05:26 General appearance: Present: no acute distress Results - Labs CBC & Chem 7: 08/27/19 08:16 08/27/19 05:44 Labs: Laboratory Last Values WBC 7.9 K/mm3 (4.5-11.0) 08/26/19 05:18 RBC 3.09 M/mm3 (3.65-5.03) L 08/26/19 05:18 Hgb 8.8 gm/dl (11.8-15.2) L 08/26/19 05:18 Hct 26.4 % (35.5-45.6) L 08/26/19 05:18 MCV 85 fl (84-94) 08/26/19 05:18 MCH 28 pg (28-32) 08/26/19 05:18 MCHC 33 % (32-34) 08/26/19 05:18 RDW 14.7 % (13.2-15.2) 08/26/19 05:18 Plt Count 349 K/mm3 (140-440) 08/26/19 05:18 Lymph % (Auto) 36.6 % (13.4-35.0) H 08/26/19 05:18 [place] % (Auto) 8.6 % (0.0-7.3) H 08/26/19 05:18 Eos % (Auto) 3.9 % (0.0-4.3) 08/26/19 05:18 Baso % (Auto) 0.8 % (0.0-1.8) 08/26/19 05:18 Lymph # 2.9 K/mm3 (1.2-5.4) 08/26/19 05:18 [place] # 0.7 K/mm3 (0.0-0.8) 08/26/19 05:18 Eos # 0.3 K/mm3 (0.0-0.4) 08/26/19 05:18 Baso # 0.1 K/mm3 (0.0-0.1) 08/26/19 05:18 Seg Neutrophils % 50.1 % (40.0-70.0) 08/26/19 05:18 Seg Neutrophils # 3.9 K/mm3 (1.8-7.7) 08/26/19 05:18 PT 14.1 Sec. (12.2-14.9) 08/21/19 10:20 INR 1.12 (0.87-1.13) 08/21/19 10:20 APTT 34.3 Sec. (24.2-36.6) 08/21/19 10:20 Sodium 135 mmol/L (137-145) L 08/27/19 05:44 Potassium 3.9 mmol/L (3.6-5.0) 08/27/19 05:44 Chloride 101.9 mmol/L (98-107) 08/27/19 05:44 Carbon Dioxide 23 mmol/L (22-30) 08/27/19 05:44 Anion Gap 14 mmol/L 08/27/19 05:44 BUN 32 mg/dL (9-20) H 08/27/19 05:44 Creatinine 5.9 mg/dL (0.8-1.5) H 08/27/19 05:44 Estimated GFR 14 ml/min 08/27/19 05:44 BUN/Creatinine Ratio 5 % 08/27/19 05:44 Glucose 202 mg/dL (75-100) H 08/27/19 05:44 POC Glucose 236 (70-105) H 08/27/19 07:52 Calcium 7.4 mg/dL (8.4-10.2) L 08/27/19 05:44 Phosphorus 5.70 mg/dL (2.5-4.5) H 08/23/19 08:55 Magnesium 1.80 mg/dL (1.7-2.3) 08/22/19 14:12 Iron 48 ug/dL (49-181) L 08/23/19 08:55 TIBC 158 mcg/dL (250-450) L 08/23/19 08:55 % Saturation 30.38 % 08/23/19 08:55 Transferrin 138 mg/dl (180-329) L 08/23/19 08:55 Ferritin 211.5 ng/mL (13.0-400.0) 08/24/19 03:01 Total Bilirubin 0.30 mg/dL (0.1-1.2) 08/21/19 10:29 AST 16 units/L (5-40) 08/21/19 10:29 ALT 9 units/L (7-56) 08/21/19 10:29 Alkaline Phosphatase 57 units/L (35-129) 08/21/19 10:29 Total Protein 6.0 g/dL (6.3-8.2) L 08/21/19 10:29 Albumin 2.5 g/dL (3.9-5) L 08/21/19 10:29 Albumin/Globulin Ratio 0.7 % 08/21/19 10:29 Urine Color Yellow (Yellow) 08/23/19 11:43 Urine Turbidity Clear (Clear) 08/23/19 11:43 Urine pH 6.0 (5.0-7.0) 08/23/19 11:43 Ur Specific [place] 1.016 (1.003-1.030) 08/23/19 11:43 Urine Protein >500 mg/dL (Negative) 08/23/19 11:43 Urine Glucose (UA) >=500 mg/dL (Negative) 08/23/19 11:43 Urine Ketones Neg mg/dL (Negative) 08/23/19 11:43 Urine Blood Sm (Negative) 08/23/19 11:43 Urine Nitrite Neg (Negative) 08/23/19 11:43 Urine Bilirubin Neg (Negative) 08/23/19 11:43 Urine Urobilinogen < 2.0 mg/dL (<2.0) 08/23/19 11:43 Ur Leukocyte Esterase Neg (Negative) 08/23/19 11:43 Urine WBC (Auto) 5.0 /HPF (0.0-6.0) 08/23/19 11:43 Urine RBC (Auto) 1.0 /HPF (0.0-6.0) 08/23/19 11:43 U Epithel Cells (Auto) < 1.0 /HPF (0-13.0) 08/23/19 11:43 Urine Bacteria (Auto) 1+ /HPF (Negative) 08/23/19 11:43 Hyaline Casts 6 /LPF 08/23/19 11:43 Urine Mucus Few /HPF 08/23/19 11:43 Urine Eosinophils None seen (None Seen) 08/23/19 11:43 Urine Total Volume 1200 ml 08/22/19 08:36 Urine Creatinine 142.7 mg/dL (0.1-20.0) H 08/22/19 08:36 Ur Creatinine 24 Hour 1.7 (0.8-2.8) 08/22/19 08:36 Hepatitis A IgM Ab Non-reactive (NonReactive) 08/24/19 15:01 Hep Bs Antigen Non-reactive (Negative) 08/24/19 15:01 Hep B Core IgM Ab Non-reactive (NonReactive) 08/24/19 15:01 Hepatitis C Antibody Non-reactive (NonReactive) 08/24/19 15:01 Blood Type O POSITIVE 08/21/19 10:20 Antibody Screen Negative 08/21/19 10:20 Crossmatch See Detail 08/21/19 10:20 Active Medications - Current Medications Current Medications: Generic Name Dose Route Start Last Admin Trade Name Freq PRN Reason Stop Dose Admin Albumin Human 25 gm 08/23/19 10:13 Alburx 25% (Albumin) IV BRENDAN PRN Hypotension Albuterol 2.5 mg 08/22/19 00:01 Proventil IH Q4HRT PRN Shortness Of Breath Carvedilol 25 mg 08/23/19 10:00 08/26/19 22:57 Coreg PO Not Given Q12H KESHIA Epoetin [place] 10,000 unit 08/23/19 10:13 08/26/19 19:10 Procrit IV 10,000 unit BRENDAN PRN Administration hemodialysis Hydralazine HCl 20 mg 08/22/19 12:29 08/23/19 05:34 Apresoline IV 20 mg Q4H PRN Administration SBP>160 or DBP>110 Hydromorphone HCl 0.5 mg 08/25/19 07:17 Dilaudid IV Q3H PRN Pain , Severe (7-10) Sodium Chloride 100 mls @ 999 mls/hr 08/24/19 09:21 Nacl 0.9% IV BRENDAN PRN Hypotension Insulin Human Lispro 0 unit 08/22/19 22:00 08/26/19 22:55 Humalog SUB-Q 4 unit ACHS KESHIA Administration Protocol Losartan Potassium 100 mg 08/25/19 10:00 08/26/19 09:26 Cozaar PO Not Given QDAY KESHIA Metoclopramide HCl 5 mg 08/22/19 00:26 08/23/19 11:15 Reglan IV 5 mg Q6H PRN Administration Nausea And Vomiting Ondansetron HCl 4 mg 08/21/19 23:10 08/23/19 17:15 Zofran IV 4 mg Q6H PRN Administration Nausea And Vomiting Oxycodone/Acetaminophen 1 tab 08/24/19 20:39 08/24/19 21:15 Percocet 5/325 PO 1 tab Q6H PRN Administration Pain, Moderate (4-6) Pantoprazole Sodium 40 mg 08/23/19 11:00 08/26/19 09:30 Protonix PO 40 mg QDAY KESHIA Administration Nutrition/Malnutrition Assess - Dietary Evaluation Nutrition/Malnutrition Findings: Nutrition Notes Start: 08/22/19 12:39 Freq: Status: Active Protocol: Document 08/25/19 10:31 CC (Rec: 08/25/19 13:40 CC [email or web address]) Co-Sign 08/25/19 10:31 KH Nutrition Notes Initial or Follow up Reassessment Current Diagnosis CKD(stage I-IV),Diabetes, Hypertension Other Pertinent Diagnosis Upper GIB, Anemia, Gastroparesis Current Diet Renal Labs/Tests Na 133, GFR 9, Creat 8.4, BUN 49, Glu 258 Pertinent Medications Reviewed Height 6 ft 3 in Weight 85.4 kg Usual Body Weight 88.6 kg [place] Body Weight (kg) 89.09 BMI 23.5 Intake Prior to Admission Good Weight change and time frame Pt continues to deny recent wt loss. Pt denied holding fluid Weight Status Appropriate Subjective/Other Information F/U for diet advancement, PO tolerance Advanced to renal diet per pt tolerating well. Per ADL note pt consumed 75% of dinner . Nurse stated pt has been asking for more food and requested double portions. Network Planner observed 100% of lunch consumed. Pt has no visible signs of muscle or fat wasting Percent of energy/protein needs met: 85%/100% Burn Absent Trauma Absent Current % PO Good (75-100%) Minimum of two criteria No physical signs of malnutrition #2 Nutrition Diagnosis Food and nutrition-related knowledge deficit Etiology Pt is to begin HD once placement is found As Evidenced by Signs and Symptoms Pt report of no knowledge of renal diet #1 Nutrition Diagnosis Altered GI function As Evidenced by Signs and Symptoms Pt tolerating renal diet Diagnosis Progress(for reassessment Resolved documentation) Is patient on ventilator? No Is Patient Ambulatory and/or Out of Bed Yes REE-([place]-St. Jeor-ambulatory/OOB) [ 2463.019 NUTR.MSJOOB] Calculation Used for Recommendations [place]-St Jeor Additional Notes Pro needs 0.8-0.9g/k-80g/ day Fluid needs 1ml/kcal Nutrition Intervention Change Diet Order: Continue renal diet Teaching Recipient Patient Learning Readiness Good Teaching Methods Discussion,Handout Response to Teaching Verbalize understanding Education Handouts Provided CKD Stage 5 Tips for People on Dialysis Barriers to Learning Financial RD phone number provided Yes Patient aware of follow up options Yes Anticipated Discharge Needs: Renal/CHO-controlled diet Revisit per MD consult or patient Sign Off request:
[2019-08-27 08:51] LABS: Basophils # (Auto) 0.1 K/mm3 (0.0-0.1); Basophils % (Auto) 0.9 % (0.0-1.8); Eosinophils # (Auto) 0.2 K/mm3 (0.0-0.4); Eosinophils % (Auto) 2.8 % (0.0-4.3); Hematocrit 25.6 % (35.5-45.6); Hemoglobin 8.6 gm/dl (11.8-15.2); Lymphocytes # (Auto) 2.6 K/mm3 (1.2-5.4); Lymphocytes % (Auto) 31.7 % (13.4-35.0); Mean Corpuscular HGB Conc 34 % (32-34); Mean Corpuscular Volume 85 fl (84-94); Monocytes # (Auto) 0.8 K/mm3 (0.0-0.8); Platelet Count 317 K/mm3 (140-440); Red Blood Count 3.02 M/mm3 (3.65-5.03)
[2019-08-27] MEDS ORDERED: LISINOPRIL 5 MG TAB PO SCH (10:00)
[2019-08-27] MEDS: INSULIN LISPRO 100 UNIT/ML SUB-Q SCH ×4 (10:17→22:15)
[2019-08-27] MEDS: PANTOPRAZOLE 40 MG TAB PO SCH (10:25)
[2019-08-27] MEDS: LOSARTAN 50 MG TAB PO SCH (10:26)
[2019-08-27] MEDS: CARVEDILOL 25 MG TAB PO SCH ×2 (10:33→22:15)
[2019-08-27] MEDS: oxyCODONE /ACETAMINOPHEN 5-325MG TAB PO PRN (20:43)
[2019-08-28 05:14] LABS: Basophils # (Auto) 0.1 K/mm3 (0.0-0.1); Basophils % (Auto) 0.8 % (0.0-1.8); Eosinophils # (Auto) 0.2 K/mm3 (0.0-0.4); Hematocrit 25.7 % (35.5-45.6); Hemoglobin 8.4 gm/dl (11.8-15.2); Lymphocytes # (Auto) 2.9 K/mm3 (1.2-5.4); Lymphocytes % (Auto) 38.9 % (13.4-35.0); Mean Corpuscular HGB Conc 33 % (32-34); Mean Corpuscular Volume 87 fl (84-94); Monocytes # (Auto) 0.8 K/mm3 (0.0-0.8); Monocytes % (Auto) 10.3 % (0.0-7.3); Platelet Count 360 K/mm3 (140-440); Red Blood Count 2.96 M/mm3 (3.65-5.03); Red Cell Distribution Width 15.1 % (13.2-15.2)
[2019-08-28] MEDS: INSULIN LISPRO 100 UNIT/ML SUB-Q SCH ×4 (09:02→23:06)
[2019-08-28] MEDS: LOSARTAN 50 MG TAB PO SCH (10:04)
[2019-08-28] MEDS: PANTOPRAZOLE 40 MG TAB PO SCH (10:04)
[2019-08-28] MEDS: CARVEDILOL 25 MG TAB PO SCH ×2 (10:04→23:05)
[2019-08-28] MEDS ORDERED: SODIUM CHLORIDE*PRIMING MACHINE ONLY FOR DIALYSIS MC ONE (11:57)
--- NOTE | 2019-08-28 12:20 | Progress Note ---
Subjective Principal diagnosis: n/v, abd pain Interval history: Patient was seen today for follow-up of multiple renal related issues also seen on hemodialysis Events of 24 hours vitals labs intake output medications were reviewed Past medical history: Reviewed Family history: Reviewed Social history: Reviewed Allergies: Reviewed Physical examination: Vitals: Reviewed HEENT: No pallor or icterus oral mucosa moist Neck: Supple no JVD no thyromegaly Chest: Bilateral clear to auscultation anteriorly Heart: Regular rate and rhythm S1-S2 heard no S3-S4 Abdomen: Soft nontender no voluntary guarding rigidity rebound Extremity: Dry skin less than 1+ peripheral edema Psychiatric: No evidence of agitation and aggression noted Dermatology: No petechial rashes Labs and x-rays: Reviewed from today Assessment and plan end-stage renal disease continue with hemodialysis Saturday patient is tolerating hemodialysis treatment very well Continue with hemodialysis treatment 3 times per week Continue to monitor blood pressure Currently on erythropoietin 10,000 units with dialysis Fist[place] when he receives insurance Placement of the [facility] per patient's choice Gastritis peptic ulcer disease coffee-ground emesis being followed by gastroenterology service educated about renal diet, dialysis diet All questions were answered and simple [place] We'll continue to follow and make recommendation for renal standpoint Objective - Vital Signs Vital signs: Vital Signs - 12hr 08/28/19 08/28/19 08/28/19 05:11 09:56 10:00 Temperature 98.8 F 98.7 F Pulse Rate 70 69 67 Respiratory 20 16 Rate Blood Pressure 119/79 128/66 139/81 O2 Sat by Pulse 100 Oximetry 08/28/19 08/28/19 08/28/19 10:15 10:30 10:45 Temperature Pulse Rate 69 69 70 Respiratory Rate Blood Pressure 134/78 121/66 120/64 O2 Sat by Pulse Oximetry 08/28/19 08/28/19 08/28/19 11:00 11:15 11:30 Temperature Pulse Rate 70 70 70 Respiratory Rate Blood Pressure 117/64 119/61 115/62 O2 Sat by Pulse Oximetry 08/28/19 08/28/19 11:45 12:00 Temperature Pulse Rate 70 70 Respiratory Rate Blood Pressure 122/66 120/67 O2 Sat by Pulse Oximetry - Lab 08/28/19 04:48 08/28/19 04:48 Most recent lab results Calcium 8.0 mg/dL (8.4-10.2) L 08/28/19 04:48 Phosphorus 5.70 mg/dL (2.5-4.5) H 08/23/19 08:55 Magnesium 1.80 mg/dL (1.7-2.3) 08/22/19 14:12 Urine Creatinine 142.7 mg/dL (0.1-20.0) H 08/22/19 08:36 Medications & Allergies - Medications Allergies/Adverse Reactions: Allergies No Known Allergies Allergy (Verified 11/21/18 17:51) Home Medications: Home Medications Medication Instructions Recorded Confirmed Last Taken Type ALBUTEROL Inhaler (OR & NICU) 1 puff IH Q4H PRN 08/21/19 08/21/19 Unknown History [Proair] Carvedilol [Coreg] 25 mg PO Q12H 08/21/19 08/21/19 Unknown History Furosemide [Lasix TAB] 40 mg PO BID 08/21/19 08/21/19 Unknown History Lisinopril [Zestril] 5 mg PO QDAY 08/21/19 08/21/19 Unknown History Metoclopramide [Reglan ORAL LIQ] 10 mg PO QID 08/21/19 08/21/19 Unknown History Pantoprazole [Protonix TAB] 40 mg PO BIDAC 08/21/19 08/21/19 Unknown History hydrALAZINE [Apresoline] 25 mg PO Q8HR 08/21/19 08/21/19 Unknown History Active Medications: Generic Name Dose Route Start Last Admin Trade Name Freq PRN Reason Stop Dose Admin Albumin Human 25 gm 08/23/19 10:13 Alburx 25% (Albumin) IV BRENDAN PRN Hypotension Albuterol 2.5 mg 08/22/19 00:01 Proventil IH Q4HRT PRN Shortness Of Breath Carvedilol 25 mg 08/23/19 10:00 08/28/19 10:04 Coreg PO Not Given Q12H KESHIA Epoetin [place] 10,000 unit 08/23/19 10:13 08/26/19 19:10 Procrit IV 10,000 unit BRENDAN PRN Administration hemodialysis Hydralazine HCl 20 mg 08/22/19 12:29 08/23/19 05:34 Apresoline IV 20 mg Q4H PRN Administration SBP>160 or DBP>110 Hydromorphone HCl 0.5 mg 08/25/19 07:17 Dilaudid IV Q3H PRN Pain , Severe (7-10) Sodium Chloride 100 mls @ 999 mls/hr 08/24/19 09:21 Nacl 0.9% IV BRENDAN PRN Hypotension Insulin Human Lispro 0 unit 08/22/19 22:00 08/28/19 12:02 Humalog SUB-Q Not Given ACHS KESHIA Protocol Losartan Potassium 100 mg 08/25/19 10:00 08/28/19 10:04 Cozaar PO Not Given QDAY [facility] Metoclopramide HCl 5 mg 08/22/19 00:26 08/23/19 11:15 Reglan IV 5 mg Q6H PRN Administration Nausea And Vomiting Ondansetron HCl 4 mg 08/21/19 23:10 08/23/19 17:15 Zofran IV 4 mg Q6H PRN Administration Nausea And Vomiting Oxycodone/Acetaminophen 1 tab 08/24/19 20:39 08/27/19 20:43 Percocet 5/325 PO 1 tab Q6H PRN Administration Pain, Moderate (4-6) Pantoprazole Sodium 40 mg 08/23/19 11:00 08/28/19 10:04 Protonix PO Not Given QDAY [facility]
--- NOTE | 2019-08-28 12:31 | Progress Note ---
Assessment and Plan Assessment and plan: Patient is 33-year-old -[place] male presents to the emergency department via EMS from home with complaint of abdominal pain, nausea, vomiting and vomiting of blood that has been going on for 3 days prior to presentation. The patient does have a history of ulcerative esophagitis, gastroparesis, CKD stage 5 not on without hemodialysis, diabetes, hypertension. 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 He was seen and evaluated in ED and admitted. he was evaluated by Nephrology and GI Physician. Conservative management was recommended by GI Physician since he has had EGD X 2 this year. Nephrology recommend to initiate dialysis fo acute on chronic kidney disease stage 5, going to ESRD. hemodialysis cather placed today. ESRD Started on hemodilysis AND PLAN FOR MWF outpatient Dialysis catheter placed Awaiting outpatient placement Metabolic acidosis Secondary to Renal function, will continue to monitor Upper GI bleed switch to PO PPI GI following No indication for EGD for now Gastroparesis IV Reglan and IV Zofran for now Resolved, tolerating PO IDDM (insulin dependent diabetes mellitus) Accu checks Qac AND adjust as needed A1c 5.5 Hypertension Monitor BP Asthma Albuterol MDI qid prn Anemia due to acute blood loss from GI bleed and ESRD Hgb 7.7 after 1 Unit PRBC now 8.8 Hypernatremia-RESOLVED Malnutrition Dietitian consult DVT prophylaxis SCD's only because GI bleed awaiting placement for dialysis chair time History Interval history: Patient seen and examined, reports no new complaints. Awaiting placement Hospitalist Physical - Physical exam Narrative exam: Gen: Not in acute distress, lying in bed, HEENT: Normocephalic, atraumatic Neck: supple, no JVD Heart: S1 and S2 reg, no murmurs, rubs or gallop Lungs: Clear to auscultation, no rhonchi, no wheeze Abd: soft, non tender, non distended, normal BS, Ext: No edema, no clubbing, no cyanosis, swelling on the left upper ext now improved, non tender. skin: Right chest wall tunnel catheter Neuro: Awake, alert, oriented X 3, no focal neurological signs, - Constitutional Vitals: Temp Pulse Resp BP Pulse Ox 98.7 F 70 16 120/67 100 08/28/19 09:56 08/28/19 12:00 08/28/19 09:56 08/28/19 12:00 08/28/19 05:11 General appearance: Present: no acute distress Results - Labs CBC & Chem 7: 08/28/19 04:48 08/28/19 04:48 Labs: Laboratory Last Values WBC 7.6 K/mm3 (4.5-11.0) 08/28/19 04:48 RBC 2.96 M/mm3 (3.65-5.03) L 08/28/19 04:48 Hgb 8.4 gm/dl (11.8-15.2) L 08/28/19 04:48 Hct 25.7 % (35.5-45.6) L 08/28/19 04:48 MCV 87 fl (84-94) 08/28/19 04:48 MCH 28 pg (28-32) 08/28/19 04:48 MCHC 33 % (32-34) 08/28/19 04:48 RDW 15.1 % (13.2-15.2) 08/28/19 04:48 Plt Count 360 K/mm3 (140-440) 08/28/19 04:48 Lymph % (Auto) 38.9 % (13.4-35.0) H 08/28/19 04:48 [place] % (Auto) 10.3 % (0.0-7.3) H 08/28/19 04:48 Eos % (Auto) 3.0 % (0.0-4.3) 08/28/19 04:48 Baso % (Auto) 0.8 % (0.0-1.8) 08/28/19 04:48 Lymph # 2.9 K/mm3 (1.2-5.4) 08/28/19 04:48 [place] # 0.8 K/mm3 (0.0-0.8) 08/28/19 04:48 Eos # 0.2 K/mm3 (0.0-0.4) 08/28/19 04:48 Baso # 0.1 K/mm3 (0.0-0.1) 08/28/19 04:48 Seg Neutrophils % 47.0 % (40.0-70.0) 08/28/19 04:48 Seg Neutrophils # 3.6 K/mm3 (1.8-7.7) 08/28/19 04:48 PT 14.1 Sec. (12.2-14.9) 08/21/19 10:20 INR 1.12 (0.87-1.13) 08/21/19 10:20 APTT 34.3 Sec. (24.2-36.6) 08/21/19 10:20 Sodium 137 mmol/L (137-145) 08/28/19 04:48 Potassium 4.2 mmol/L (3.6-5.0) 08/28/19 04:48 Chloride 102.5 mmol/L (98-107) 08/28/19 04:48 Carbon Dioxide 24 mmol/L (22-30) 08/28/19 04:48 Anion Gap 15 mmol/L 08/28/19 04:48 BUN 36 mg/dL (9-20) H 08/28/19 04:48 Creatinine 7.1 mg/dL (0.8-1.5) H 08/28/19 04:48 Estimated GFR 11 ml/min 08/28/19 04:48 BUN/Creatinine Ratio 5 % 08/28/19 04:48 Glucose 157 mg/dL (75-100) H 08/28/19 04:48 POC Glucose 185 (70-105) H 08/28/19 07:53 Hemoglobin A1c 5.5 % (4-6) 08/27/19 08:30 Calcium 8.0 mg/dL (8.4-10.2) L 08/28/19 04:48 Phosphorus 5.70 mg/dL (2.5-4.5) H 08/23/19 08:55 Magnesium 1.80 mg/dL (1.7-2.3) 08/22/19 14:12 Iron 48 ug/dL (49-181) L 08/23/19 08:55 TIBC 158 mcg/dL (250-450) L 08/23/19 08:55 % Saturation 30.38 % 08/23/19 08:55 Transferrin 138 mg/dl (180-329) L 08/23/19 08:55 Ferritin 211.5 ng/mL (13.0-400.0) 08/24/19 03:01 Total Bilirubin 0.30 mg/dL (0.1-1.2) 08/21/19 10:29 AST 16 units/L (5-40) 08/21/19 10:29 ALT 9 units/L (7-56) 08/21/19 10:29 Alkaline Phosphatase 57 units/L (35-129) 08/21/19 10:29 Total Protein 6.0 g/dL (6.3-8.2) L 08/21/19 10:29 Albumin 2.5 g/dL (3.9-5) L 08/21/19 10:29 Albumin/Globulin Ratio 0.7 % 08/21/19 10:29 Urine Color Yellow (Yellow) 08/23/19 11:43 Urine Turbidity Clear (Clear) 08/23/19 11:43 Urine pH 6.0 (5.0-7.0) 08/23/19 11:43 Ur Specific [place] 1.016 (1.003-1.030) 08/23/19 11:43 Urine Protein >500 mg/dL (Negative) 08/23/19 11:43 Urine Glucose (UA) >=500 mg/dL (Negative) 08/23/19 11:43 Urine Ketones Neg mg/dL (Negative) 08/23/19 11:43 Urine Blood Sm (Negative) 08/23/19 11:43 Urine Nitrite Neg (Negative) 08/23/19 11:43 Urine Bilirubin Neg (Negative) 08/23/19 11:43 Urine Urobilinogen < 2.0 mg/dL (<2.0) 08/23/19 11:43 Ur Leukocyte Esterase Neg (Negative) 08/23/19 11:43 Urine WBC (Auto) 5.0 /HPF (0.0-6.0) 08/23/19 11:43 Urine RBC (Auto) 1.0 /HPF (0.0-6.0) 08/23/19 11:43 U Epithel Cells (Auto) < 1.0 /HPF (0-13.0) 08/23/19 11:43 Urine Bacteria (Auto) 1+ /HPF (Negative) 08/23/19 11:43 Hyaline Casts 6 /LPF 08/23/19 11:43 Urine Mucus Few /HPF 08/23/19 11:43 Urine Eosinophils None seen (None Seen) 08/23/19 11:43 Urine Total Volume 1200 ml 08/22/19 08:36 Urine Creatinine 142.7 mg/dL (0.1-20.0) H 08/22/19 08:36 Ur Creatinine 24 Hour 1.7 (0.8-2.8) 08/22/19 08:36 Hepatitis A IgM Ab Non-reactive (NonReactive) 08/24/19 15:01 Hep Bs Antigen Non-reactive (Negative) 08/24/19 15:01 Hep B Core IgM Ab Non-reactive (NonReactive) 08/24/19 15:01 Hepatitis C Antibody Non-reactive (NonReactive) 08/24/19 15:01 Blood Type O POSITIVE 08/21/19 10:20 Antibody Screen Negative 08/21/19 10:20 Crossmatch See Detail 08/21/19 10:20 Active Medications - Current Medications Current Medications: Generic Name Dose Route Start Last Admin Trade Name Freq PRN Reason Stop Dose Admin Albumin Human 25 gm 08/23/19 10:13 Alburx 25% (Albumin) IV BRENDAN PRN Hypotension Albuterol 2.5 mg 08/22/19 00:01 Proventil IH Q4HRT PRN Shortness Of Breath Carvedilol 25 mg 08/23/19 10:00 08/28/19 10:04 Coreg PO Not Given Q12H [facility] Epoetin Wale 10,000 unit 08/23/19 10:13 08/26/19 19:10 Procrit IV 10,000 unit BRENDAN PRN Administration hemodialysis Hydralazine HCl 20 mg 08/22/19 12:29 08/23/19 05:34 Apresoline IV 20 mg Q4H PRN Administration SBP>160 or DBP>110 Hydromorphone HCl 0.5 mg 08/25/19 07:17 Dilaudid IV Q3H PRN Pain , Severe (7-10) Sodium Chloride 100 mls @ 999 mls/hr 08/24/19 09:21 Nacl 0.9% IV BRENDAN PRN Hypotension Insulin Human Lispro 0 unit 08/22/19 22:00 08/28/19 12:02 Humalog SUB-Q Not Given ACHS [facility] Protocol Losartan Potassium 100 mg 08/25/19 10:00 08/28/19 10:04 Cozaar PO Not Given QDAY KESHIA Metoclopramide HCl 5 mg 08/22/19 00:26 08/23/19 11:15 Reglan IV 5 mg Q6H PRN Administration Nausea And Vomiting Ondansetron HCl 4 mg 08/21/19 23:10 08/23/19 17:15 Zofran IV 4 mg Q6H PRN Administration Nausea And Vomiting Oxycodone/Acetaminophen 1 tab 08/24/19 20:39 08/27/19 20:43 Percocet 5/325 PO 1 tab Q6H PRN Administration Pain, Moderate (4-6) Pantoprazole Sodium 40 mg 08/23/19 11:00 08/28/19 10:04 Protonix PO Not Given QDAY KESHIA Nutrition/Malnutrition Assess - Dietary Evaluation Nutrition/Malnutrition Findings: Nutrition Notes Start: 08/22/19 12:39 Freq: Status: Active Protocol: Document 08/25/19 10:31 CC (Rec: 08/25/19 13:40 CC [id number]) Co-Sign 08/25/19 10:31 Nutrition Notes Initial or Follow up Reassessment Current Diagnosis CKD(stage I-IV),Diabetes, Hypertension Other Pertinent Diagnosis Upper GIB, Anemia, Gastroparesis Current Diet Renal Labs/Tests Na 133, GFR 9, Creat 8.4, BUN 49, Glu 258 Pertinent Medications Reviewed Height 6 ft 3 in Weight 85.4 kg Usual Body Weight 88.6 kg [place] Body Weight (kg) 89.09 BMI 23.5 Intake Prior to Admission Good Weight change and time frame Pt continues to deny recent wt loss. Pt denied holding fluid Weight Status Appropriate Subjective/Other Information F/U for diet advancement, PO tolerance Advanced to renal diet per pt tolerating well. Per ADL note pt consumed 75% of dinner . Nurse stated pt has been asking for more food and requested double portions. Die Tester observed 100% of lunch consumed. Pt has no visible signs of muscle or fat wasting Percent of energy/protein needs met: 85%/100% Burn Absent Trauma Absent Current % PO Good (75-100%) Minimum of two criteria No physical signs of malnutrition #2 Nutrition Diagnosis Food and nutrition-related knowledge deficit Etiology Pt is to begin HD once placement is found As Evidenced by Signs and Symptoms Pt report of no knowledge of renal diet #1 Nutrition Diagnosis Altered GI function As Evidenced by Signs and Symptoms Pt tolerating renal diet Diagnosis Progress(for reassessment Resolved documentation) Is patient on ventilator? No Is Patient Ambulatory and/or Out of Bed Yes REE-([facility]-ambulatory/OOB) [ 2463.019 NUTR.MSJOOB] Calculation Used for Recommendations [facility] Additional Notes Pro needs 0.8-0.9g/k-80g/ day Fluid needs 1ml/kcal Nutrition Intervention Change Diet Order: Continue renal diet Teaching Recipient Patient Learning Readiness Good Teaching Methods Discussion,Handout Response to Teaching Verbalize understanding Education Handouts Provided CKD Stage 5 Tips for People on Dialysis Barriers to Learning Financial RD phone number provided Yes Patient aware of follow up options Yes Anticipated Discharge Needs: Renal/CHO-controlled diet Revisit per MD consult or patient Sign Off request: - Attestation Statement I have reviewed and agreed w/ Malnutrition eval & tx plan: Yes
[2019-08-28] MEDS: EPOETIN ALFA 10,000 UNIT/1 ML INJ IV PRN (13:33)
[2019-08-29 05:19] LABS: Basophils # (Auto) 0.1 K/mm3 (0.0-0.1); Basophils % (Auto) 1.5 % (0.0-1.8); Eosinophils # (Auto) 0.2 K/mm3 (0.0-0.4); Eosinophils % (Auto) 2.8 % (0.0-4.3); Hemoglobin 7.9 gm/dl (11.8-15.2); Lymphocytes % (Auto) 26.5 % (13.4-35.0); Mean Corpuscular HGB Conc 33 % (32-34); Mean Corpuscular Volume 86 fl (84-94); Monocytes # (Auto) 0.9 K/mm3 (0.0-0.8); Monocytes % (Auto) 12.5 % (0.0-7.3); Platelet Count 354 K/mm3 (140-440); Red Blood Count 2.79 M/mm3 (3.65-5.03); Red Cell Distribution Width 14.7 % (13.2-15.2)
[2019-08-29 05:28] LABS: Calcium 7.8 mg/dL (8.4-10.2)
[2019-08-29] MEDS: INSULIN LISPRO 100 UNIT/ML SUB-Q SCH ×4 (09:13→23:19)
[2019-08-29] MEDS: LOSARTAN 50 MG TAB PO SCH (09:14)
[2019-08-29] MEDS: CARVEDILOL 25 MG TAB PO SCH ×2 (09:15→23:18)
[2019-08-29] MEDS: PANTOPRAZOLE 40 MG TAB PO SCH (09:15)
--- NOTE | 2019-08-29 11:14 | Progress Note ---
Subjective Principal diagnosis: n/v, abd pain Objective - Vital Signs Vital signs: Vital Signs - 12hr 08/29/19 04:19 Temperature 98.3 F Pulse Rate 74 Respiratory 18 Rate Blood Pressure 138/80 O2 Sat by Pulse 100 Oximetry - Lab 08/29/19 04:18 08/29/19 04:18 Most recent lab results Calcium 7.8 mg/dL (8.4-10.2) L 08/29/19 04:18 Phosphorus 5.70 mg/dL (2.5-4.5) H 08/23/19 08:55 Magnesium 1.80 mg/dL (1.7-2.3) 08/22/19 14:12 Urine Creatinine 142.7 mg/dL (0.1-20.0) H 08/22/19 08:36 Medications & Allergies - Medications Allergies/Adverse Reactions: Allergies No Known Allergies Allergy (Verified 11/21/18 17:51) Home Medications: Home Medications Medication Instructions Recorded Confirmed Last Taken Type ALBUTEROL Inhaler (OR & NICU) 1 puff IH Q4H PRN 08/21/19 08/21/19 Unknown History [Proair] Carvedilol [Coreg] 25 mg PO Q12H 08/21/19 08/21/19 Unknown History Furosemide [Lasix TAB] 40 mg PO BID 08/21/19 08/21/19 Unknown History Lisinopril [Zestril] 5 mg PO QDAY 08/21/19 08/21/19 Unknown History Metoclopramide [Reglan ORAL LIQ] 10 mg PO QID 08/21/19 08/21/19 Unknown History Pantoprazole [Protonix TAB] 40 mg PO BIDAC 08/21/19 08/21/19 Unknown History hydrALAZINE [Apresoline] 25 mg PO Q8HR 08/21/19 08/21/19 Unknown History Active Medications: Generic Name Dose Route Start Last Admin Trade Name Freq PRN Reason Stop Dose Admin Albumin Human 25 gm 08/23/19 10:13 Alburx 25% (Albumin) IV BRENDAN PRN Hypotension Albuterol 2.5 mg 08/22/19 00:01 Proventil IH Q4HRT PRN Shortness Of Breath Carvedilol 25 mg 08/23/19 10:00 08/29/19 09:15 Coreg PO 25 mg Q12H [facility] Administration Epoetin [place]ale 10,000 unit 08/23/19 10:13 08/28/19 13:33 Procrit IV 10,000 unit BRENDAN PRN Administration hemodialysis Hydralazine HCl 20 mg 08/22/19 12:29 08/23/19 05:34 Apresoline IV 20 mg Q4H PRN Administration SBP>160 or DBP>110 Hydromorphone HCl 0.5 mg 08/25/19 07:17 Dilaudid IV Q3H PRN Pain , Severe (7-10) Sodium Chloride 100 mls @ 999 mls/hr 08/24/19 09:21 Nacl 0.9% IV BRENDAN PRN Hypotension Insulin Human Lispro 0 unit 08/22/19 22:00 08/29/19 09:13 Humalog SUB-Q 4 unit ACHS [facility] Administration Protocol Losartan Potassium 100 mg 08/25/19 10:00 08/29/19 09:14 Cozaar PO 100 mg QDAY [facility] Administration Metoclopramide HCl 5 mg 08/22/19 00:26 08/23/19 11:15 Reglan IV 5 mg Q6H PRN Administration Nausea And Vomiting Ondansetron HCl 4 mg 08/21/19 23:10 08/23/19 17:15 Zofran IV 4 mg Q6H PRN Administration Nausea And Vomiting Oxycodone/Acetaminophen 1 tab 08/24/19 20:39 08/27/19 20:43 Percocet 5/325 PO 1 tab Q6H PRN Administration Pain, Moderate (4-6) Pantoprazole Sodium 40 mg 08/23/19 11:00 08/29/19 09:15 Protonix PO 40 mg QDAY KESHIA Administration
--- NOTE | 2019-08-29 12:33 | Progress Note ---
Assessment and Plan Assessment and plan: Patient is 33-year-old -[place] male presents to the emergency department via EMS from home with complaint of abdominal pain, nausea, vomiting and vomiting of blood that has been going on for 3 days prior to presentation. The patient does have a history of ulcerative esophagitis, gastroparesis, CKD stage 5 not on without hemodialysis, diabetes, hypertension. 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 He was seen and evaluated in ED and admitted. he was evaluated by Nephrology and GI Physician. Conservative management was recommended by GI Physician since he has had EGD X 2 this year. Nephrology recommend to initiate dialysis fo acute on chronic kidney disease stage 5, going to ESRD. hemodialysis cather placed today. ESRD Started on hemodilysis AND PLAN FOR MWF outpatient Dialysis catheter placed 24HR URINE Collection ongoing Awaiting outpatient placement Metabolic acidosis- Resolved Secondary to Renal function, will continue to monitor Upper GI bleed switch to PO PPI GI following No indication for EGD for now Gastroparesis IV Reglan and IV Zofran for now Resolved, tolerating PO IDDM (insulin dependent diabetes mellitus) Accu checks Qac AND adjust as needed A1c 5.5 Hypertension Monitor BP Asthma- stable at this time Albuterol MDI qid prn Anemia due to acute blood loss from GI bleed and ESRD Hgb 7.7 after 1 Unit PRBC went to 8.8 and now 7.9- continue to monitor Hypernatremia-RESOLVED Malnutrition Dietitian consult DVT prophylaxis SCD's only because GI bleed awaiting placement for dialysis chair time History Interval history: Patient seen and examined, reports no new complaints. Awaiting placement, SITTING UP. No adverse event overnight reported Hospitalist Physical - Physical exam Narrative exam: Gen: Not in acute distress, lying in bed, HEENT: Normocephalic, atraumatic Neck: supple, no JVD Heart: S1 and S2 reg, no murmurs, rubs or gallop Lungs: Clear to auscultation, no rhonchi, no wheeze Abd: soft, non tender, non distended, normal BS, Ext: No edema, no clubbing, no cyanosis, swelling on the left upper ext now impr cameron, non tender. skin: Right chest wall tunnel catheter Neuro: Awake, alert, oriented X 3, no focal neurological signs, - Constitutional Vitals: Temp Pulse Resp BP Pulse Ox 99.5 F 82 14 100/59 98 08/29/19 12:01 08/29/19 12:01 08/29/19 12:01 08/29/19 12:01 08/29/19 12:01 General appearance: Present: no acute distress Results - Labs CBC & Chem 7: 08/29/19 04:18 08/29/19 04:18 Labs: Laboratory Last Values WBC 7.5 K/mm3 (4.5-11.0) 08/29/19 04:18 RBC 2.79 M/mm3 (3.65-5.03) L 08/29/19 04:18 Hgb 7.9 gm/dl (11.8-15.2) L 08/29/19 04:18 Hct 24.0 % (35.5-45.6) L 08/29/19 04:18 MCV 86 fl (84-94) 08/29/19 04:18 MCH 28 pg (28-32) 08/29/19 04:18 MCHC 33 % (32-34) 08/29/19 04:18 RDW 14.7 % (13.2-15.2) 08/29/19 04:18 Plt Count 354 K/mm3 (140-440) 08/29/19 04:18 Lymph % (Auto) 26.5 % (13.4-35.0) 08/29/19 04:18 [place] % (Auto) 12.5 % (0.0-7.3) H 08/29/19 04:18 Eos % (Auto) 2.8 % (0.0-4.3) 08/29/19 04:18 Baso % (Auto) 1.5 % (0.0-1.8) 08/29/19 04:18 Lymph # 2.0 K/mm3 (1.2-5.4) 08/29/19 04:18 [place] # 0.9 K/mm3 (0.0-0.8) H 08/29/19 04:18 Eos # 0.2 K/mm3 (0.0-0.4) 08/29/19 04:18 Baso # 0.1 K/mm3 (0.0-0.1) 08/29/19 04:18 Seg Neutrophils % 56.7 % (40.0-70.0) 08/29/19 04:18 Seg Neutrophils # 4.2 K/mm3 (1.8-7.7) 08/29/19 04:18 PT 14.1 Sec. (12.2-14.9) 08/21/19 10:20 INR 1.12 (0.87-1.13) 08/21/19 10:20 APTT 34.3 Sec. (24.2-36.6) 08/21/19 10:20 Sodium 138 mmol/L (137-145) 08/29/19 04:18 Potassium 3.9 mmol/L (3.6-5.0) 08/29/19 04:18 Chloride 101.2 mmol/L (98-107) 08/29/19 04:18 Carbon Dioxide 28 mmol/L (22-30) 08/29/19 04:18 Anion Gap 13 mmol/L 08/29/19 04:18 BUN 21 mg/dL (9-20) H 08/29/19 04:18 Creatinine 4.7 mg/dL (0.8-1.5) H 08/29/19 04:18 Estimated GFR 18 ml/min 08/29/19 04:18 BUN/Creatinine Ratio 4 % 08/29/19 04:18 Glucose 167 mg/dL (75-100) H 08/29/19 04:18 POC Glucose 231 (70-105) H 08/29/19 08:40 Hemoglobin A1c 5.5 % (4-6) 08/27/19 08:30 Calcium 7.8 mg/dL (8.4-10.2) L 08/29/19 04:18 Phosphorus 5.70 mg/dL (2.5-4.5) H 08/23/19 08:55 Magnesium 1.80 mg/dL (1.7-2.3) 08/22/19 14:12 Iron 48 ug/dL (49-181) L 08/23/19 08:55 TIBC 158 mcg/dL (250-450) L 08/23/19 08:55 % Saturation 30.38 % 08/23/19 08:55 Transferrin 138 mg/dl (180-329) L 08/23/19 08:55 Ferritin 211.5 ng/mL (13.0-400.0) 08/24/19 03:01 Total Bilirubin 0.30 mg/dL (0.1-1.2) 08/21/19 10: AST 16 units/L (5-40) 08/21/19 10:29 ALT 9 units/L (7-56) 08/21/19 10:29 Alkaline Phosphatase 57 units/L (35-129) 08/21/19 10:29 Total Protein 6.0 g/dL (6.3-8.2) L 08/21/19 10:29 Albumin 2.5 g/dL (3.9-5) L 08/21/19 10:29 Albumin/Globulin Ratio 0.7 % 08/21/19 10:29 Urine Color Yellow (Yellow) 08/23/19 11:43 Urine Turbidity Clear (Clear) 08/23/19 11:43 Urine pH 6.0 (5.0-7.0) 08/23/19 11:43 Ur Specific [place] 1.016 (1.003-1.030) 08/23/19 11:43 Urine Protein >500 mg/dL (Negative) 08/23/19 11:43 Urine Glucose (UA) >=500 mg/dL (Negative) 08/23/19 11:43 Urine Ketones Neg mg/dL (Negative) 08/23/19 11:43 Urine Blood Sm (Negative) 08/23/19 11:43 Urine Nitrite Neg (Negative) 08/23/19 11:43 Urine Bilirubin Neg (Negative) 08/23/19 11:43 Urine Urobilinogen < 2.0 mg/dL (<2.0) 08/23/19 11:43 Ur Leukocyte Esterase Neg (Negative) 08/23/19 11:43 Urine WBC (Auto) 5.0 /HPF (0.0-6.0) 08/23/19 11:43 Urine RBC (Auto) 1.0 /HPF (0.0-6.0) 08/23/19 11:43 U Epithel Cells (Auto) < 1.0 /HPF (0-13.0) 08/23/19 11:43 Urine Bacteria (Auto) 1+ /HPF (Negative) 08/23/19 11:43 Hyaline Casts 6 /LPF 08/23/19 11:43 Urine Mucus Few /HPF 08/23/19 11:43 Urine Eosinophils None seen (None Seen) 08/23/19 11:43 Urine Total Volume 1200 ml 08/22/19 08:36 Urine Creatinine 142.7 mg/dL (0.1-20.0) H 08/22/19 08:36 Ur Creatinine 24 Hour 1.7 (0.8-2.8) 08/22/19 08:36 Hepatitis A IgM Ab Non-reactive (NonReactive) 08/24/19 15:01 Hep Bs Antigen Non-reactive (Negative) 08/24/19 15:01 Hep B Core IgM Ab Non-reactive (NonReactive) 08/24/19 15:01 Hepatitis C Antibody Non-reactive (NonReactive) 08/24/19 15:01 Blood Type O POSITIVE 08/21/19 10:20 Antibody Screen Negative 08/21/19 10:20 Crossmatch See Detail 08/21/19 10:20 Active Medications - Current Medications Current Medications: Generic Name Dose Route Start Last Admin Trade Name Freq PRN Reason Stop Dose Admin Albumin Human 25 gm 08/23/19 10:13 Alburx 25% (Albumin) IV BRENDAN PRN Hypotension Albuterol 2.5 mg 08/22/19 00:01 Proventil IH Q4HRT PRN Shortness Of Breath Carvedilol 25 mg 08/23/19 10:00 08/29/19 09:15 Coreg PO 25 mg Q12H [facility] Administration Epoetin [place] 10,000 unit 08/23/19 10:13 08/28/19 13:33 Procrit IV 10,000 unit BRENDAN PRN Administration hemodialysis Hydralazine HCl 20 mg 08/22/19 12:29 08/23/19 05:34 Apresoline IV 20 mg Q4H PRN Administration SBP>160 or DBP>110 Hydromorphone HCl 0.5 mg 08/25/19 07:17 Dilaudid IV Q3H PRN Pain , Severe (7-10) Sodium Chloride 100 mls @ 999 mls/hr 08/24/19 09:21 Nacl 0.9% IV BRENDAN PRN Hypotension Insulin Human Lispro 0 unit 08/22/19 22:00 08/29/19 09:13 Humalog SUB-Q 4 unit ACHS [facility] Administration Protocol Losartan Potassium 100 mg 08/25/19 10:00 08/29/19 09:14 Cozaar PO 100 mg QDAY KESHIA Administration Metoclopramide HCl 5 mg 08/22/19 00:26 08/23/19 11:15 Reglan IV 5 mg Q6H PRN Administration Nausea And Vomiting Ondansetron HCl 4 mg 08/21/19 23:10 08/23/19 17:15 Zofran IV 4 mg Q6H PRN Administration Nausea And Vomiting Oxycodone/Acetaminophen 1 tab 08/24/19 20:39 08/27/19 20:43 Percocet 5/325 PO 1 tab Q6H PRN Administration Pain, Moderate (4-6) Pantoprazole Sodium 40 mg 08/23/19 11:00 08/29/19 09:15 Protonix PO 40 mg QDAY KESHIA Administration Nutrition/Malnutrition Assess - Dietary Evaluation Nutrition/Malnutrition Findings: Nutrition Notes Start: 08/22/19 12:39 Freq: Status: Active Protocol: Document 08/25/19 10:31 CC (Rec: 08/25/19 13:40 CC [email or web address]) Co-Sign 08/25/19 10:31 Nutrition Notes Initial or Follow up Reassessment Current Diagnosis CKD(stage I-IV),Diabetes, Hypertension Other Pertinent Diagnosis Upper GIB, Anemia, Gastroparesis Current Diet Renal Labs/Tests Na 133, GFR 9, Creat 8.4, BUN 49, Glu 258 Pertinent Medications Reviewed Height 6 ft 3 in Weight 85.4 kg Usual Body Weight 88.6 kg [place] Body Weight (kg) 89.09 BMI 23.5 Intake Prior to Admission Good Weight change and time frame Pt continues to deny recent wt loss. Pt denied holding fluid Weight Status Appropriate Subjective/Other Information F/U for diet advancement, PO tolerance Advanced to renal diet per pt tolerating well. Per ADL note pt consumed 75% of dinner . Nurse stated pt has been asking for more food and requested double portions. Group Manager observed 100% of lunch consumed. Pt has no visible signs of muscle or fat wasting Percent of energy/protein needs met: 85%/100% Burn Absent Trauma Absent Current % PO Good (75-100%) Minimum of two criteria No physical signs of malnutrition #2 Nutrition Diagnosis Food and nutrition-related knowledge deficit Etiology Pt is to begin HD once placement is found As Evidenced by Signs and Symptoms Pt report of no knowledge of renal diet #1 Nutrition Diagnosis Altered GI function As Evidenced by Signs and Symptoms Pt tolerating renal diet Diagnosis Progress(for reassessment Resolved documentation) Is patient on ventilator? No Is Patient Ambulatory and/or Out of Bed Yes [facility] [ 2463.019 NUTR.[id number]] Calculation Used for Recommendations [facility] Additional Notes Pro needs 0.8-0.9g/k-80g/ day Fluid needs 1ml/kcal Nutrition Intervention Change Diet Order: Continue renal diet Teaching Recipient Patient Learning Readiness Good Teaching Methods Discussion,Handout Response to Teaching Verbalize understanding Education Handouts Provided CKD Stage 5 Tips for People on Dialysis Barriers to Learning Financial RD phone number provided Yes Patient aware of follow up options Yes Anticipated Discharge Needs: Renal/CHO-controlled diet Revisit per MD consult or patient Sign Off request:
[2019-08-29] MEDS: hydrALAZINE 20 MG/1 ML INJ IV PRN (23:22)
[2019-08-30 05:04] LABS: Hematocrit 22.7 % (35.5-45.6); Hemoglobin 7.5 gm/dl (11.8-15.2); Mean Corpuscular HGB Conc 33 % (32-34); Mean Corpuscular Volume 86 fl (84-94); Platelet Count 359 K/mm3 (140-440); Red Blood Count 2.64 M/mm3 (3.65-5.03); Red Cell Distribution Width 15.1 % (13.2-15.2)
[2019-08-30 05:27] LABS: Calcium 8.2 mg/dL (8.4-10.2)
[2019-08-30] MEDS: LOSARTAN 50 MG TAB PO SCH (09:33)
[2019-08-30] MEDS: INSULIN LISPRO 100 UNIT/ML SUB-Q SCH ×4 (09:33→22:01)
[2019-08-30] MEDS: PANTOPRAZOLE 40 MG TAB PO SCH (09:33)
[2019-08-30] MEDS: CARVEDILOL 25 MG TAB PO SCH (09:44)
--- NOTE | 2019-08-30 12:01 | Progress Note ---
Subjective Principal diagnosis: n/v, abd pain Interval history: Patient was seen today for follow-up of multiple renal related issues also seen on hemodialysis Events of 24 hours vitals labs intake output medications were reviewed Past medical history: Reviewed Family history: Reviewed Social history: Reviewed Allergies: Reviewed Physical examination: Vitals: Reviewed HEENT: No pallor or icterus oral mucosa moist Neck: Supple no JVD no thyromegaly Chest: Bilateral clear to auscultation anteriorly Heart: Regular rate and rhythm S1-S2 heard no S3-S4 Abdomen: Soft nontender no voluntary guarding rigidity rebound Extremity: Dry skin less than 1+ peripheral edema Psychiatric: No evidence of agitation and aggression noted Dermatology: No petechial rashes Labs and x-rays: Reviewed from today Assessment and plan end-stage renal disease continue with hemodialysis Saturday Patient will need workup for anemia Will adjust his blood pressure medications/ Should be able to be accepted at [facility] will contact them tomorrow Likely will require iron infusion, with history of GI bleed, 250 mg while the workup is in progress Fistula when he receives insurance Placement of the [facility] per patient's choice Gastritis peptic ulcer disease coffee-ground emesis being [place] [facility] educated about renal diet, dialysis diet All questions were answered and simple [place] We'll continue to follow and make recommendation for renal standpoint Objective - Vital Signs Vital signs: Vital Signs - 12hr 08/30/19 08/30/19 05:48 08:54 Temperature 98.7 F Pulse Rate 74 Pulse Rate [ 74 From Monitor] Respiratory 20 Rate Blood Pressure 162/86 O2 Sat by Pulse 99 Oximetry - Lab 08/30/19 04:27 08/30/19 04:27 Most recent lab results Calcium 8.2 mg/dL (8.4-10.2) L 08/30/19 04:27 Phosphorus 5.70 mg/dL (2.5-4.5) H 08/23/19 08:55 Magnesium 1.80 mg/dL (1.7-2.3) 08/22/19 14:12 Urine Creatinine 56.0 mg/dL (0.1-20.0) H 08/24/19 15:16 Medications & Allergies - Medications Allergies/Adverse Reactions: Allergies No Known Allergies Allergy (Verified 11/21/18 17:51) Home Medications: Home Medications Medication Instructions Recorded Confirmed Last Taken Type ALBUTEROL Inhaler (OR & NICU) 1 puff IH Q4H PRN 08/21/19 08/21/19 Unknown History [Proair] Carvedilol [Coreg] 25 mg PO Q12H 08/21/19 08/21/19 Unknown History Furosemide [Lasix TAB] 40 mg PO BID 08/21/19 08/21/19 Unknown History Lisinopril [Zestril] 5 mg PO QDAY 08/21/19 08/21/19 Unknown History Metoclopramide [Reglan ORAL LIQ] 10 mg PO QID 08/21/19 08/21/19 Unknown History Pantoprazole [Protonix TAB] 40 mg PO BIDAC 08/21/19 08/21/19 Unknown History hydrALAZINE [Apresoline] 25 mg PO Q8HR 08/21/19 08/21/19 Unknown History Active Medications: Generic Name Dose Route Start Last Admin Trade Name Freq PRN Reason Stop Dose Admin Albumin Human 25 gm 08/23/19 10:13 Alburx 25% (Albumin) IV BRENDAN PRN Hypotension Albuterol 2.5 mg 08/22/19 00:01 Proventil IH Q4HRT PRN Shortness Of Breath Carvedilol 25 mg 08/23/19 10:00 08/30/19 09:44 Coreg PO 25 mg Q12H KESHIA Administration Epoetin Wale 10,000 unit 08/23/19 10:13 08/28/19 13:33 Procrit IV 10,000 unit BRENDAN PRN Administration hemodialysis Hydralazine HCl 20 mg 08/22/19 12:29 08/29/19 23:22 Apresoline IV 20 mg Q4H PRN Administration SBP>160 or DBP>110 Hydromorphone HCl 0.5 mg 08/25/19 07:17 Dilaudid IV Q3H PRN Pain , Severe (7-10) Sodium Chloride 100 mls @ 999 mls/hr 08/24/19 09:21 Nacl 0.9% IV BRENDAN PRN Hypotension Insulin Human Lispro 0 unit 08/22/19 22:00 08/30/19 09:33 Humalog SUB-Q 4 unit ACHS KESHIA Administration Protocol Losartan Potassium 100 mg 08/25/19 10:00 08/30/19 09:33 Cozaar PO 100 mg QDAY KESHIA Administration Metoclopramide HCl 5 mg 08/22/19 00:26 08/23/19 11:15 Reglan IV 5 mg Q6H PRN Administration Nausea And Vomiting Ondansetron HCl 4 mg 08/21/19 23:10 08/23/19 17:15 Zofran IV 4 mg Q6H PRN Administration Nausea And Vomiting Oxycodone/Acetaminophen 1 tab 08/24/19 20:39 08/27/19 20:43 Percocet 5/325 PO 1 tab Q6H PRN Administration Pain, Moderate (4-6) Pantoprazole Sodium 40 mg 08/23/19 11:00 08/30/19 09:33 Protonix PO 40 mg QDAY KESHIA Administration
[2019-08-30] MEDS ORDERED: SODIUM FERRIC GLUCON/SUCRO 250 MG in SODIUM CHLORIDE 0.9% 100 ML IV ONE (13:00)
--- NOTE | 2019-08-30 13:35 | Progress Note ---
Assessment and Plan ESRD Started on hemodilysis AND PLAN FOR MWF outpatient Dialysis catheter placed 24HR URINE Collection ongoing Awaiting outpatient placement Metabolic acidosis- Resolved Secondary to Renal function, will continue to monitor Upper GI bleed On PO PPI GI following No indication for EGD for now Gastroparesis IV Reglan and IV Zofran for now Resolved, tolerating PO IDDM (insulin dependent diabetes mellitus) Accu checks Qac AND adjust as needed A1c 5.5 Hypertension Monitor BP Asthma- stable at this time Albuterol MDI qid prn Anemia due to acute blood loss from GI bleed and ESRD Hgb 7.7 after 1 Unit PRBC went to 8.8 and now 7.9- continue to monitor Hypernatremia-RESOLVED Malnutrition Dietitian consult DVT prophylaxis SCD's only because GI bleed Awaiting placement for dialysis chair time Subjective Date of service: 08/30/19 Principal diagnosis: ESRD, Interval history: Patient is 33-year-old -Latvian male presents to the emergency department via EMS from home with complaint of abdominal pain, nausea, vomiting and vomiting of blood that has been going on for 3 days prior to presentation. The patient does have a history of ulcerative esophagitis, gastroparesis, CKD stage 5 not on without hemodialysis, diabetes, hypertension. 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 He was seen and evaluated in ED and admitted. he was evaluated by Nephrology and GI Physician. Conservative management was recommended by GI Physician since he has had EGD X 2 this year. Nephrology recommend to initiate dialysis fo acute on chronic kidney disease stage 5, going to ESRD. hemodialysis cather placed today. Objective - Constitutional Vitals: Vital Signs - 12hr 08/30/19 08/30/19 05:48 08:54 Temperature 98.7 F Pulse Rate 74 Pulse Rate [ 74 From Monitor] Respiratory 20 Rate Blood Pressure 162/86 O2 Sat by Pulse 99 Oximetry General appearance: Present: no acute distress, well-nourished - EENT Eyes: PERRL, EOM intact ENT: hearing intact, clear oral mucosa Ears: bilateral: normal - Neck Neck: supple, normal ROM - Respiratory Respiratory effort: normal Respiratory: bilateral: CTA - Breasts Breasts: normal - Cardiovascular Rhythm: regular Heart Sounds: Present: S1 & S2. Absent: gallop, rub Extremities: pulses intact, No edema, normal color, Full ROM - Gastrointestinal General gastrointestinal: Present: soft, non-tender, non-distended, normal bowel sounds - Genitourinary Male genitourinary: normal - Integumentary Integumentary: clear, warm, dry - Musculoskeletal Musculoskeletal: 1, strength equal bilaterally - Neurologic Neurologic: moves all extremities - Psychiatric Psychiatric: memory intact, appropriate mood/affect, intact judgment & insight - Labs CBC & Chem 7: 08/30/19 04:27 08/30/19 04:27 Labs: Abnormal lab results 08/24/19 08/29/19 08/29/19 Range/Units 15:16 16:16 21:55 RBC (3.65-5.03) M/mm3 Hgb (11.8-15.2) gm/dl Hct (35.5-45.6) % Sodium (137-145) mmol/L BUN (9-20) mg/dL Creatinine (0.8-1.5) mg/dL Glucose (75-100) mg/dL POC Glucose 217 H 204 H (70-105) Calcium (8.4-10.2) mg/dL Urine Creatinine 56.0 H (0.1-20.0) mg/dL 08/30/19 08/30/19 08/30/19 Range/Units 04:27 04:27 08:20 RBC 2.64 L (3.65-5.03) M/mm3 Hgb 7.5 L (11.8-15.2) gm/dl Hct 22.7 L (35.5-45.6) % Sodium 135 L (137-145) mmol/L BUN 28 H (9-20) mg/dL Creatinine 6.2 H (0.8-1.5) mg/dL Glucose 277 H (75-100) mg/dL POC Glucose 240 H (70-105) Calcium 8.2 L (8.4-10.2) mg/dL Urine Creatinine (0.1-20.0) mg/dL 08/30/19 Range/Units 11:20 RBC (3.65-5.03) M/mm3 Hgb (11.8-15.2) gm/dl Hct (35.5-45.6) % Sodium (137-145) mmol/L BUN (9-20) mg/dL Creatinine (0.8-1.5) mg/dL Glucose (75-100) mg/dL POC Glucose 297 H (70-105) Calcium (8.4-10.2) mg/dL Urine Creatinine (0.1-20.0) mg/dL
[2019-08-30] MEDS: METOPROLOL TARTRATE 50 MG TAB PO SCH ×2 (14:15→22:00)
[2019-08-30 15:24] LABS: Iron 21 ug/dL (49-181); Total Iron Binding Capacity 178 mcg/dL (250-450)
[2019-08-31] MEDS: METOPROLOL TARTRATE 50 MG TAB PO SCH ×3 (09:26→20:37)
[2019-08-31] MEDS: INSULIN LISPRO 100 UNIT/ML SUB-Q SCH ×4 (09:26→23:14)
[2019-08-31] MEDS: LOSARTAN 50 MG TAB PO SCH (09:26)
[2019-08-31] MEDS: PANTOPRAZOLE 40 MG TAB PO SCH (10:02)
[2019-08-31] MEDS: INSULIN GLARGINE 100 UNITS/ML SUB-Q SCH (10:02)
[2019-08-31] MEDS ORDERED: SODIUM CHLORIDE*PRIMING MACHINE ONLY FOR DIALYSIS MC ONE (11:58)
[2019-08-31] MEDS: hydrALAZINE 20 MG/1 ML INJ IV PRN (12:00)
--- NOTE | 2019-08-31 12:00 | Progress Note ---
Assessment and Plan Assessment and plan: Patient is 33-year-old -Guyanese male presents to the emergency department via EMS from home with complaint of abdominal pain, nausea, vomiting and vomiting of blood that has been going on for 3 days prior to presentation. The patient does have a history of ulcerative esophagitis, gastroparesis, CKD stage 5 not on without hemodialysis, diabetes, hypertension. 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 He was seen and evaluated in ED and admitted. he was evaluated by Nephrology and GI Physician. Conservative management was recommended by GI Physician since he has had EGD X 2 this year. Nephrology recommend to initiate dialysis fo acute on chronic kidney disease stage 5, going to ESRD. hemodialysis cather placed today. ESRD Started on hemodilysis AND PLAN FOR MWF outpatient Dialysis catheter placed 24HR URINE Collection completed Awaiting outpatient placement Metabolic acidosis- Resolved Secondary to Renal function, will continue to monitor Upper GI bleed switch to PO PPI GI following No indication for EGD for now Gastroparesis IV Reglan and IV Zofran for now Resolved, tolerating PO IDDM (insulin dependent diabetes mellitus) Accu checks Qac AND adjust as needed A1c 5.5 Hypertension Monitor BP Asthma- stable at this time Albuterol MDI qid prn Anemia due to acute blood loss from GI bleed and ESRD Hgb 7.7 after 1 Unit PRBC went to 8.8 and now 7.9- continue to monitor Hypernatremia-RESOLVED Malnutrition Dietitian consult DVT prophylaxis SCD's only because GI bleed awaiting placement for dialysis chair time History Interval history: Patient seen and examined, reports no new complaints. Awaiting placement, sitting up. No adverse event overnight reported Hospitalist Physical - Physical exam Narrative exam: Gen: Not in acute distress, lying in bed, HEENT: Normocephalic, atraumatic Neck: supple, no JVD Heart: S1 and S2 reg, no murmurs, rubs or gallop Lungs: Clear to auscultation, no rhonchi, no wheeze Abd: soft, non tender, non distended, normal BS, Ext: No edema, no clubbing, no cyanosis, non tender. skin: Right chest wall tunnel catheter Neuro: Awake, alert, oriented X 3, no focal neurological signs, - Constitutional Vitals: Temp Pulse Resp BP Pulse Ox 98.3 F 80 18 167/104 98 08/31/19 09:30 08/31/19 10:30 08/31/19 09:30 08/31/19 10:30 08/31/19 06:17 General appearance: Present: no acute distress, well-nourished Results - Labs CBC & Chem 7: 08/30/19 04:27 08/30/19 04:27 Labs: Laboratory Last Values WBC 7.2 K/mm3 (4.5-11.0) 08/30/19 04:27 RBC 2.64 M/mm3 (3.65-5.03) L 08/30/19 04:27 Hgb 7.5 gm/dl (11.8-15.2) L 08/30/19 04:27 Hct 22.7 % (35.5-45.6) L 08/30/19 04:27 MCV 86 fl (84-94) 08/30/19 04:27 MCH 28 pg (28-32) 08/30/19 04:27 MCHC 33 % (32-34) 08/30/19 04:27 RDW 15.1 % (13.2-15.2) 08/30/19 04:27 Plt Count 359 K/mm3 (140-440) 08/30/19 04:27 Lymph % (Auto) 26.5 % (13.4-35.0) 08/29/19 04:18 [place] % (Auto) 12.5 % (0.0-7.3) H 08/29/19 04:18 Eos % (Auto) 2.8 % (0.0-4.3) 08/29/19 04:18 Baso % (Auto) 1.5 % (0.0-1.8) 08/29/19 04:18 Lymph # 2.0 K/mm3 (1.2-5.4) 08/29/19 04:18 [place] # 0.9 K/mm3 (0.0-0.8) H 08/29/19 04:18 Eos # 0.2 K/mm3 (0.0-0.4) 08/29/19 04:18 Baso # 0.1 K/mm3 (0.0-0.1) 08/29/19 04:18 Seg Neutrophils % 56.7 % (40.0-70.0) 08/29/19 04:18 Seg Neutrophils # 4.2 K/mm3 (1.8-7.7) 08/29/19 04:18 Percent Retic 3.77 % (0.78-2.58) H 08/30/19 14:30 PT 14.1 Sec. (12.2-14.9) 08/21/19 10:20 INR 1.12 (0.87-1.13) 08/21/19 10:20 APTT 34.3 Sec. (24.2-36.6) 08/21/19 10:20 Sodium 135 mmol/L (137-145) L 08/30/19 04:27 Potassium 4.2 mmol/L (3.6-5.0) 08/30/19 04:27 Chloride 98.2 mmol/L (98-107) 08/30/19 04:27 Carbon Dioxide 26 mmol/L (22-30) 08/30/19 04:27 Anion Gap 15 mmol/L 08/30/19 04:27 BUN 28 mg/dL (9-20) H 08/30/19 04:27 Creatinine 6.2 mg/dL (0.8-1.5) H 08/30/19 04:27 Estimated GFR 13 ml/min 08/30/19 04:27 BUN/Creatinine Ratio 5 % 08/30/19 04:27 Glucose 277 mg/dL (75-100) H 08/30/19 04:27 POC Glucose 209 (70-105) H 08/31/19 08:34 Hemoglobin A1c 5.5 % (4-6) 08/27/19 08:30 Calcium 8.2 mg/dL (8.4-10.2) L 08/30/19 04:27 Phosphorus 5.70 mg/dL (2.5-4.5) H 08/23/19 08:55 Magnesium 1.80 mg/dL (1.7-2.3) 08/22/19 14:12 Iron 21 ug/dL (49-181) L 08/30/19 14:30 TIBC 178 mcg/dL (250-450) L 08/30/19 14:30 % Saturation 30.38 % 08/23/19 08:55 Transferrin 138 mg/dl (180-329) L 08/23/19 08:55 Ferritin 211.5 ng/mL (13.0-400.0) 08/24/19 03:01 Total Bilirubin 0.30 mg/dL (0.1-1.2) 08/21/19 10:29 AST 16 units/L (5-40) 08/21/19 10:29 ALT 9 units/L (7-56) 08/21/19 10:29 Alkaline Phosphatase 57 units/L (35-129) 08/21/19 10:29 Total Protein 6.0 g/dL (6.3-8.2) L 08/21/19 10:29 Albumin 2.5 g/dL (3.9-5) L 08/21/19 10:29 Albumin/Globulin Ratio 0.7 % 08/21/19 10:29 Vitamin B12 771.7 pg/mL (211-911) 08/30/19 14:30 Folate 5.52 ng/mL (7.3-26.0) L 08/30/19 14:30 PTH Intact 63.81 pg/mL (15-65) 08/31/19 06:30 Urine Color Yellow (Yellow) 08/23/19 11:43 Urine Turbidity Clear (Clear) 08/23/19 11:43 Urine pH 6.0 (5.0-7.0) 08/23/19 11:43 Ur Specific [place] 1.016 (1.003-1.030) 08/23/19 11:43 Urine Protein >500 mg/dL (Negative) 08/23/19 11:43 Urine Glucose (UA) >=500 mg/dL (Negative) 08/23/19 11:43 Urine Ketones Neg mg/dL (Negative) 08/23/19 11:43 Urine Blood Sm (Negative) 08/23/19 11:43 Urine Nitrite Neg (Negative) 08/23/19 11:43 Urine Bilirubin Neg (Negative) 08/23/19 11:43 Urine Urobilinogen < 2.0 mg/dL (<2.0) 08/23/19 11:43 Ur Leukocyte Esterase Neg (Negative) 08/23/19 11:43 Urine WBC (Auto) 5.0 /HPF (0.0-6.0) 08/23/19 11:43 Urine RBC (Auto) 1.0 /HPF (0.0-6.0) 08/23/19 11:43 U Epithel Cells (Auto) < 1.0 /HPF (0-13.0) 08/23/19 11:43 Urine Bacteria (Auto) 1+ /HPF (Negative) 08/23/19 11:43 Hyaline Casts 6 /LPF 08/23/19 11:43 Urine Mucus Few /HPF 08/23/19 11:43 Urine Eosinophils None seen (None Seen) 08/23/19 11:43 Urine Total Volume 515 ml 08/24/19 15:16 Urine Creatinine 56.0 mg/dL (0.1-20.0) H 08/24/19 15:16 Ur Creatinine 24 Hour 1.7 (0.8-2.8) 08/22/19 08:36 Height (in) 75.0 inches 08/24/19 15:16 Weight (lb) 206.0 lbs 08/24/19 15:16 Creatinine Clearance 1 08/24/19 15:16 Hepatitis A IgM Ab Non-reactive (NonReactive) 08/24/19 15:01 Hep Bs Antigen Non-reactive (Negative) 08/24/19 15:01 Hep B Core IgM Ab Non-reactive (NonReactive) 08/24/19 15:01 Hepatitis C Antibody Non-reactive (NonReactive) 08/24/19 15:01 Blood Type O POSITIVE 08/21/19 10:20 Antibody Screen Negative 08/21/19 10:20 Crossmatch See Detail 08/21/19 10:20 Active Medications - Current Medications Current Medications: Generic Name Dose Route Start Last Admin Trade Name Freq PRN Reason Stop Dose Admin Albuterol 2.5 mg 08/22/19 00:01 Proventil IH Q4HRT PRN Shortness Of Breath Epoetin Wale 10,000 unit 08/23/19 10:13 08/28/19 13:33 Procrit IV 10,000 unit BRENDAN PRN Administration hemodialysis Hydralazine HCl 20 mg 08/22/19 12:29 08/29/19 23:22 Apresoline IV 20 mg Q4H PRN Administration SBP>160 or DBP>110 Hydromorphone HCl 0.5 mg 08/25/19 07:17 Dilaudid IV Q3H PRN Pain , Severe (7-10) Sodium Chloride 100 mls @ 999 mls/hr 08/24/19 09:21 Nacl 0.9% IV BRENDAN PRN Hypotension Insulin Glargine 10 units 08/31/19 10:00 08/31/19 10:02 Lantus SUB-Q Not Given QAM [facility] Insulin Human Lispro 0 unit 08/22/19 22:00 08/31/19 09:26 Humalog SUB-Q Not Given ACHS [facility] Protocol Losartan Potassium 100 mg 08/25/19 10:00 08/31/19 09:26 Cozaar PO Not Given QDAY [facility] Metoclopramide HCl 5 mg 08/22/19 00:26 08/23/19 11:15 Reglan IV 5 mg Q6H PRN Administration Nausea And Vomiting Metoprolol Tartrate 50 mg 08/30/19 14:00 08/31/19 09:26 Lopressor PO Not Given TID [facility] Ondansetron HCl 4 mg 08/21/19 23:10 08/23/19 17:15 Zofran IV 4 mg Q6H PRN Administration Nausea And Vomiting Oxycodone/Acetaminophen 1 tab 08/24/19 20:39 08/27/19 20:43 Percocet 5/325 PO 1 tab Q6H PRN Administration Pain, Moderate (4-6) Pantoprazole Sodium 40 mg 08/23/19 11:00 08/31/19 10:02 Protonix PO Not Given QDAY [facility] Nutrition/Malnutrition Assess - Dietary Evaluation Nutrition/Malnutrition Findings: Nutrition Notes Start: 08/22/19 12:39 Freq: Status: Active Protocol: Document 08/25/19 10:31 CC (Rec: 08/25/19 13:40 CC [email or web address]) Co-Sign 08/25/19 10:31 Nutrition Notes Initial or Follow up Reassessment Current Diagnosis CKD(stage I-IV),Diabetes, Hypertension Other Pertinent Diagnosis Upper GIB, Anemia, Gastroparesis Current Diet Renal Labs/Tests Na 133, GFR 9, Creat 8.4, BUN 49, Glu 258 Pertinent Medications Reviewed Height 6 ft 3 in Weight 85.4 kg Usual Body Weight 88.6 kg [place] Body Weight (kg) 89.09 BMI 23.5 Intake Prior to Admission Good Weight change and time frame Pt continues to deny recent wt loss. Pt denied holding fluid Weight Status Appropriate Subjective/Other Information F/U for diet advancement, PO tolerance Advanced to renal diet per pt tolerating well. Per ADL note pt consumed 75% of dinner . Nurse stated pt has been asking for more food and requested double portions. [employer] Supervisor observed 100% of lunch consumed. Pt has no visible signs of muscle or fat wasting Percent of energy/protein needs met: 85%/100% Burn Absent Trauma Absent Current % PO Good (75-100%) Minimum of two criteria No physical signs of malnutrition #2 Nutrition Diagnosis Food and nutrition-related knowledge deficit Etiology Pt is to begin HD once placement is found As Evidenced by Signs and Symptoms Pt report of no knowledge of renal diet #1 Nutrition Diagnosis Altered GI function As Evidenced by Signs and Symptoms Pt tolerating renal diet Diagnosis Progress(for reassessment Resolved documentation) Is patient on ventilator? No Is Patient Ambulatory and/or Out of Bed Yes REE-([place]-St. Jeor-ambulatory/OOB) [ 2463.019 [id number]] Calculation Used for Recommendations [place]-St Jeor Additional Notes Pro needs 0.8-0.9g/k-80g/ day Fluid needs 1ml/kcal Nutrition Intervention Change Diet Order: Continue renal diet Teaching Recipient Patient Learning Readiness Good Teaching Methods Discussion,Handout Response to Teaching Verbalize understanding Education Handouts Provided CKD Stage 5 Tips for People on Dialysis Barriers to Learning Financial RD phone number provided Yes Patient aware of follow up options Yes Anticipated Discharge Needs: Renal/CHO-controlled diet Revisit per MD consult or patient Sign Off request:
[2019-08-31] MEDS: EPOETIN ALFA 10,000 UNIT/1 ML INJ IV PRN (13:10)
--- NOTE | 2019-08-31 14:50 | Progress Note ---
Assessment and Plan - Patient Problems (1) Acute on chronic renal insufficiency Current Visit: Yes Status: Acute Plan to address problem: acute on chronic renal insufficiency now with concern for ESRD - has been started on hemodialysis I reviewed urinalysis with proteinuria obtain renal US has right IJ cath awaiting dialysis placement (2) Anemia Current Visit: No Status: Acute Qualifiers: Other causes of anemia: chronic disease, other Plan to address problem: Moderate Anemia 2/2 Chronic kidney disease hb: 7.5g[place] [id number] monitor CBC. (3) Uncontrolled diabetes mellitus Current Visit: No Status: Acute Qualifiers: Diabetes mellitus type: type 2 Glycemic state: with hyperglycemia Qualified Code(s): E11.65 - Type 2 diabetes mellitus with hyperglycemia Plan to address problem: DM TYPE ii :Uncontrolled. Ensure medications monitor fingersticks. (4) HTN (hypertension) Current Visit: No Status: Chronic Plan to address problem: HTN: controlled. continue current medications. Subjective Principal diagnosis: ESRD, Interval history: 33 year old with abdominal pain , nausea, vomitting, ulcerative esophagitis ,gastroparesis , CKD admitted with worsening renal function . He was started on dialysis I attest I saw the patient on HD. Objective - Vital Signs Vital signs: Vital Signs - 12hr 08/31/19 08/31/19 08/31/19 06:17 09:30 09:41 Temperature 98.1 F 98.3 F Pulse Rate 74 78 78 Respiratory 20 18 Rate Blood Pressure 170/93 141/79 155/86 O2 Sat by Pulse 98 Oximetry 08/31/19 08/31/19 08/31/19 09:45 10:00 10:15 Temperature Pulse Rate 79 76 76 Respiratory Rate Blood Pressure 142/82 167/87 167/96 O2 Sat by Pulse Oximetry 08/31/19 08/31/19 08/31/19 10:30 10:45 11:00 Temperature Pulse Rate 80 73 77 Respiratory Rate Blood Pressure 167/104 169/93 128/63 O2 Sat by Pulse Oximetry 08/31/19 08/31/19 08/31/19 11:15 11:30 11:45 Temperature Pulse Rate 75 72 72 Respiratory Rate Blood Pressure 175/97 196/112 197/109 O2 Sat by Pulse Oximetry 08/31/19 08/31/19 08/31/19 12:00 12:15 12:30 Temperature Pulse Rate 73 79 79 Respiratory Rate Blood Pressure 175/100 161/86 154/81 O2 Sat by Pulse Oximetry 08/31/19 08/31/19 08/31/19 12:45 13:00 13:10 Temperature Pulse Rate 79 80 82 Respiratory Rate Blood Pressure 143/79 135/69 154/82 O2 Sat by Pulse Oximetry 08/31/19 13:20 Temperature 98.0 F Pulse Rate 82 Respiratory 18 Rate Blood Pressure 150/84 O2 Sat by Pulse Oximetry - General Appearance General appearance: well-developed, well-nourished EENT: ATNC, PERRL, mucous membranes moist Neck: no JVD Respiratory: Present: Clear to Ascultation Cardiology: regular Gastrointestinal: normal, normoactive bowel sounds Integumentary: no rash Neurologic: alert and oriented x3, CN 3-12 intact Musculoskeletal: other (no edema. ) Psychiatric: mood/affect appropriate - Lab 08/30/19 04:27 08/30/19 04:27 Most recent lab results Calcium 8.2 mg/dL (8.4-10.2) L 08/30/19 04:27 Phosphorus 5.70 mg/dL (2.5-4.5) H 08/23/19 08:55 Magnesium 1.80 mg/dL (1.7-2.3) 08/22/19 14:12 Urine Creatinine 56.0 mg/dL (0.1-20.0) H 08/24/19 15:16 Medications & Allergies - Medications Allergies/Adverse Reactions: Allergies No Known Allergies Allergy (Verified 11/21/18 17:51) Home Medications: Home Medications Medication Instructions Recorded Confirmed Last Taken Type ALBUTEROL Inhaler (OR & NICU) 1 puff IH Q4H PRN 08/21/19 08/21/19 Unknown History [Proair] Carvedilol [Coreg] 25 mg PO Q12H 08/21/19 08/21/19 Unknown History Furosemide [Lasix TAB] 40 mg PO BID 08/21/19 08/21/19 Unknown History Lisinopril [Zestril] 5 mg PO QDAY 08/21/19 08/21/19 Unknown History Metoclopramide [Reglan ORAL LIQ] 10 mg PO QID 08/21/19 08/21/19 Unknown History Pantoprazole [Protonix TAB] 40 mg PO BIDAC 08/21/19 08/21/19 Unknown History hydrALAZINE [Apresoline] 25 mg PO Q8HR 08/21/19 08/21/19 Unknown History Active Medications: Generic Name Dose Route Start Last Admin Trade Name Edmundo PRN Reason Stop Dose Admin Albuterol 2.5 mg 08/22/19 00:01 Proventil IH Q4HRT PRN Shortness Of Breath Epoetin [place] 10,000 unit 08/23/19 10:13 08/31/19 13:10 Procrit IV 10,000 unit BRENDAN PRN Administration hemodialysis Hydralazine HCl 20 mg 08/22/19 12:29 08/31/19 12:00 Apresoline IV 20 mg Q4H PRN Administration SBP>160 or DBP>110 Hydromorphone HCl 0.5 mg 08/25/19 07:17 Dilaudid IV Q3H PRN Pain , Severe (7-10) Sodium Chloride 100 mls @ 999 mls/hr 08/24/19 09:21 Nacl 0.9% IV BRENDAN PRN Hypotension Insulin Glargine 10 units 08/31/19 10:00 08/31/19 10:02 Lantus SUB-Q Not Given QAM [facility] Insulin Human Lispro 0 unit 08/22/19 22:00 08/31/19 11:30 Humalog SUB-Q Not Given ACHS [facility] Protocol Losartan Potassium 100 mg 08/25/19 10:00 08/31/19 09:26 Cozaar PO Not Given QDAY [facility] Metoclopramide HCl 5 mg 08/22/19 00:26 08/23/19 11:15 Reglan IV 5 mg Q6H PRN Administration Nausea And Vomiting Metoprolol Tartrate 50 mg 08/30/19 14:00 08/31/19 09:26 Lopressor PO Not Given TID [facility] Ondansetron HCl 4 mg 08/21/19 23:10 08/23/19 17:15 Zofran IV 4 mg Q6H PRN Administration Nausea And Vomiting Oxycodone/Acetaminophen 1 tab 08/24/19 20:39 08/27/19 20:43 Percocet 5/325 PO 1 tab Q6H PRN Administration Pain, Moderate (4-6) Pantoprazole Sodium 40 mg 08/23/19 11:00 08/31/19 10:02 Protonix PO Not Given QDAY [facility]
[2019-08-31] MEDS ORDERED: EPOETIN ALFA 10,000 UNIT/1 ML INJ IV PRN (18:00)
[2019-09-01 05:22] LABS: Hematocrit 23.2 % (35.5-45.6); Hemoglobin 7.5 gm/dl (11.8-15.2); Mean Corpuscular HGB Conc 32 % (32-34); Mean Corpuscular Volume 87 fl (84-94); Platelet Count 337 K/mm3 (140-440); Red Blood Count 2.68 M/mm3 (3.65-5.03)
[2019-09-01 06:41] LABS: Blood Urea Nitrogen TNR mg/dL (9-20)
[2019-09-01 06:42] LABS: BUN/Creatinine Ratio TNR; Calcium TNR mg/dL (8.4-10.2); Hemolysis Index TNR
[2019-09-01] MEDS: METOPROLOL TARTRATE 50 MG TAB PO SCH ×3 (08:17→21:05)
[2019-09-01 08:18] LABS: Calcium 8.3 mg/dL (8.4-10.2)
[2019-09-01] MEDS: INSULIN LISPRO 100 UNIT/ML SUB-Q SCH ×3 (08:19→18:05)
[2019-09-01] MEDS: INSULIN GLARGINE 100 UNITS/ML SUB-Q SCH (10:38)
[2019-09-01] MEDS: PANTOPRAZOLE 40 MG TAB PO SCH (10:47)
[2019-09-01] MEDS: LOSARTAN 50 MG TAB PO SCH (10:49)
--- NOTE | 2019-09-01 11:19 | Progress Note ---
Assessment and Plan Assessment and plan: Patient is 33-year-old -Malag[place] male presents to the emergency department via EMS from home with complaint of abdominal pain, nausea, vomiting and vomiting of blood that has been going on for 3 days prior to presentation. The patient does have a history of ulcerative esophagitis, gastroparesis, CKD stage 5 not on without hemodialysis, diabetes, hypertension. 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 He was seen and evaluated in ED and admitted. he was evaluated by Nephrology and GI Physician. Conservative management was recommended by GI Physician since he has had EGD X 2 this year. Nephrology recommend to initiate dialysis fo acute on chronic kidney disease stage 5, going to ESRD. hemodialysis cather placed today. ESRD Started on hemodilysis AND PLAN FOR MWF outpatient Dialysis catheter placed 24HR URINE Collection completed Awaiting outpatient placement Metabolic acidosis- Resolved Secondary to Renal function, will continue to monitor Upper GI bleed switch to PO PPI GI following No indication for EGD for now Gastroparesis IV Reglan and IV Zofran for now Resolved, tolerating PO IDDM (insulin dependent diabetes mellitus) Accu checks Qac AND adjust as needed A1c 5.5 Hypertension Monitor BP Asthma- stable at this time Albuterol MDI qid prn Anemia due to acute blood loss from GI bleed and ESRD Hgb 7.7 after 1 Unit PRBC went to 8.8 and now 7.9- continue to monitor Hypernatremia-RESOLVED Malnutrition Dietitian consult DVT prophylaxis SCD's only because GI bleed awaiting placement for dialysis chair time History Interval history: Patient seen and examined medical records reviewed No new complaints, Vital signs reviewed Patient is stable , pending outpatient HD chair time Hospitalist Physical - Constitutional Vitals: Temp Pulse Resp BP Pulse Ox 98.3 F 75 20 160/91 99 09/01/19 04:17 09/01/19 10:49 09/01/19 04:17 09/01/19 10:49 09/01/19 04:17 General appearance: Present: no acute distress, well-nourished - EENT Eyes: Present: PERRL, EOM intact - Neck Neck: Present: supple, normal ROM - Respiratory Respiratory effort: normal Respiratory: bilateral: diminished, negative: rales, rhonchi, wheezing - Cardiovascular Rhythm: regular Heart Sounds: Present: S1 & S2 - Extremities Extremities: no ischemia, No edema - Abdominal General gastrointestinal: soft, non-tender, non-distended, normal bowel sounds - Integumentary Integumentary: Present: clear, warm - Psychiatric Psychiatric: appropriate mood/affect, cooperative - Neurologic Neurologic: CNII-XII intact, moves all extremities Results - Labs CBC & Chem 7: 09/01/19 04:48 09/01/19 07:24 Labs: Laboratory Last Values WBC 6.9 K/mm3 (4.5-11.0) 09/01/19 04:48 RBC 2.68 M/mm3 (3.65-5.03) L 09/01/19 04:48 Hgb 7.5 gm/dl (11.8-15.2) L 09/01/19 04:48 Hct 23.2 % (35.5-45.6) L 09/01/19 04:48 MCV 87 fl (84-94) 09/01/19 04:48 MCH 28 pg (28-32) 09/01/19 04:48 MCHC 32 % (32-34) 09/01/19 04:48 RDW 15.0 % (13.2-15.2) 09/01/19 04:48 Plt Count 337 K/mm3 (140-440) 09/01/19 04:48 Lymph % (Auto) 26.5 % (13.4-35.0) 08/29/19 04:18 Hardy % (Auto) 12.5 % (0.0-7.3) H 08/29/19 04:18 Eos % (Auto) 2.8 % (0.0-4.3) 08/29/19 04:18 Baso % (Auto) 1.5 % (0.0-1.8) 08/29/19 04:18 Lymph # 2.0 K/mm3 (1.2-5.4) 08/29/19 04:18 Hardy # 0.9 K/mm3 (0.0-0.8) H 08/29/19 04:18 Eos # 0.2 K/mm3 (0.0-0.4) 08/29/19 04:18 Baso # 0.1 K/mm3 (0.0-0.1) 08/29/19 04:18 Seg Neutrophils % 56.7 % (40.0-70.0) 08/29/19 04:18 Seg Neutrophils # 4.2 K/mm3 (1.8-7.7) 08/29/19 04:18 Percent Retic 3.77 % (0.78-2.58) H 08/30/19 14:30 PT 14.1 Sec. (12.2-14.9) 08/21/19 10:20 INR 1.12 (0.87-1.13) 08/21/19 10:20 APTT 34.3 Sec. (24.2-36.6) 08/21/19 10:20 Sodium 137 mmol/L (137-145) 09/01/19 07:24 Potassium 4.0 mmol/L (3.6-5.0) 09/01/19 07:24 Chloride 100.8 mmol/L (98-107) 09/01/19 07:24 Carbon Dioxide 25 mmol/L (22-30) 09/01/19 07:24 Anion Gap 15 mmol/L 09/01/19 07:24 BUN 26 mg/dL (9-20) H 09/01/19 07:24 Creatinine 5.5 mg/dL (0.8-1.5) H 09/01/19 07:24 Estimated GFR 15 ml/min 09/01/19 07:24 BUN/Creatinine Ratio 5 % 09/01/19 07:24 Glucose 193 mg/dL (75-100) H 09/01/19 07:24 POC Glucose 190 (70-105) H 09/01/19 07:48 Hemoglobin A1c 5.5 % (4-6) 08/27/19 08:30 Calcium 8.3 mg/dL (8.4-10.2) L 09/01/19 07:24 Phosphorus 5.70 mg/dL (2.5-4.5) H 08/23/19 08:55 Magnesium 1.80 mg/dL (1.7-2.3) 08/22/19 14:12 Iron 21 ug/dL (49-181) L 08/30/19 14:30 TIBC 178 mcg/dL (250-450) L 08/30/19 14:30 % Saturation 30.38 % 08/23/19 08:55 Transferrin 138 mg/dl (180-329) L 08/23/19 08:55 Ferritin 211.5 ng/mL (13.0-400.0) 08/24/19 03:01 Total Bilirubin 0.30 mg/dL (0.1-1.2) 08/21/19 10:29 AST 16 units/L (5-40) 08/21/19 10:29 ALT 9 units/L (7-56) 08/21/19 10:29 Alkaline Phosphatase 57 units/L (35-129) 08/21/19 10:29 Total Protein 6.0 g/dL (6.3-8.2) L 08/21/19 10:29 Albumin 2.5 g/dL (3.9-5) L 08/21/19 10:29 Albumin/Globulin Ratio 0.7 % 08/21/19 10:29 Vitamin B12 771.7 pg/mL (211-911) 08/30/19 14:30 Folate 5.52 ng/mL (7.3-26.0) L 08/30/19 14:30 PTH Intact 63.81 pg/mL (15-65) 08/31/19 06:30 Urine Color Yellow (Yellow) 08/23/19 11:43 Urine Turbidity Clear (Clear) 08/23/19 11:43 Urine pH 6.0 (5.0-7.0) 08/23/19 11:43 Ur Specific [place] 1.016 (1.003-1.030) 08/23/19 11:43 Urine Protein >500 mg/dL (Negative) 08/23/19 11:43 Urine Glucose (UA) >=500 mg/dL (Negative) 08/23/19 11:43 Urine Ketones Neg mg/dL (Negative) 08/23/19 11:43 Urine Blood Sm (Negative) 08/23/19 11:43 Urine Nitrite Neg (Negative) 08/23/19 11:43 Urine Bilirubin Neg (Negative) 08/23/19 11:43 Urine Urobilinogen < 2.0 mg/dL (<2.0) 08/23/19 11:43 Ur Leukocyte Esterase Neg (Negative) 08/23/19 11:43 Urine WBC (Auto) 5.0 /HPF (0.0-6.0) 08/23/19 11:43 Urine RBC (Auto) 1.0 /HPF (0.0-6.0) 08/23/19 11:43 U Epithel Cells (Auto) < 1.0 /HPF (0-13.0) 08/23/19 11:43 Urine Bacteria (Auto) 1+ /HPF (Negative) 08/23/19 11:43 Hyaline Casts 6 /LPF 08/23/19 11:43 Urine Mucus Few /HPF 08/23/19 11:43 Urine Eosinophils None seen (None Seen) 08/23/19 11:43 Urine Total Volume 515 ml 08/24/19 15:16 Urine Creatinine 56.0 mg/dL (0.1-20.0) H 08/24/19 15:16 Ur Creatinine 24 Hour 1.7 (0.8-2.8) 08/22/19 08:36 Height (in) 75.0 inches 08/24/19 15:16 Weight (lb) 206.0 lbs 08/24/19 15:16 Creatinine Clearance 1 08/24/19 15:16 Hepatitis A IgM Ab Non-reactive (NonReactive) 08/24/19 15:01 Hep Bs Antigen Non-reactive (Negative) 08/24/19 15:01 Hep B Core IgM Ab Non-reactive (NonReactive) 08/24/19 15:01 Hepatitis C Antibody Non-reactive (NonReactive) 08/24/19 15:01 Blood Type O POSITIVE 08/21/19 10:20 Antibody Screen Negative 08/21/19 10:20 Crossmatch See Detail 08/21/19 10:20 Active Medications - Current Medications Current Medications: Generic Name Dose Route Start Last Admin Trade Name Freq PRN Reason Stop Dose Admin Albuterol 2.5 mg 08/22/19 00:01 Proventil IH Q4HRT PRN Shortness Of Breath Epoetin Wale 20,000 unit 08/31/19 18:00 Procrit IV BRENDAN PRN hemodialysis Hydralazine HCl 20 mg 08/22/19 12:29 08/31/19 12:00 Apresoline IV 20 mg Q4H PRN Administration SBP>160 or DBP>110 Hydromorphone HCl 0.5 mg 08/25/19 07:17 Dilaudid IV Q3H PRN Pain , Severe (7-10) Sodium Chloride 100 mls @ 999 mls/hr 08/24/19 09:21 Nacl 0.9% IV BRENDAN PRN Hypotension Insulin Glargine 10 units 08/31/19 10:00 09/01/19 10:38 Lantus SUB-Q 10 units QAM KESHIA Administration Insulin Human Lispro 0 unit 08/22/19 22:00 09/01/19 08:19 Humalog SUB-Q 3 unit ACHS KESHIA Administration Protocol Losartan Potassium 100 mg 08/25/19 10:00 09/01/19 10:49 Cozaar PO 100 mg QDAY KESHIA Administration Metoclopramide HCl 5 mg 08/22/19 00:26 08/23/19 11:15 Reglan IV 5 mg Q6H PRN Administration Nausea And Vomiting Metoprolol Tartrate 50 mg 08/30/19 14:00 09/01/19 08:17 Lopressor PO 50 mg TID KESHIA Administration Ondansetron HCl 4 mg 08/21/19 23:10 08/23/19 17:15 Zofran IV 4 mg Q6H PRN Administration Nausea And Vomiting Oxycodone/Acetaminophen 1 tab 08/24/19 20:39 08/27/19 20:43 Percocet 5/325 PO 1 tab Q6H PRN Administration Pain, Moderate (4-6) Pantoprazole Sodium 40 mg 08/23/19 11:00 09/01/19 10:47 Protonix PO 40 mg QDAY KESHIA Administration Nutrition/Malnutrition Assess - Dietary Evaluation Nutrition/Malnutrition Findings: Nutrition Notes Start: 08/22/19 12:39 Freq: Status: Active Protocol: Document 08/25/19 10:31 CC (Rec: 08/25/19 13:40 CC [email or web address]) Co-Sign 08/25/19 10:31 Nutrition Notes Initial or Follow up Reassessment Current Diagnosis CKD(stage I-IV),Diabetes, Hypertension Other Pertinent Diagnosis Upper GIB, Anemia, Gastroparesis Current Diet Renal Labs/Tests Na 133, GFR 9, Creat 8.4, BUN 49, Glu 258 Pertinent Medications Reviewed Height 6 ft 3 in Weight 85.4 kg Usual Body Weight 88.6 kg [place] Body Weight (kg) 89.09 BMI 23.5 Intake Prior to Admission Good Weight change and time frame Pt continues to deny recent wt loss. Pt denied holding fluid Weight Status Appropriate Subjective/Other Information F/U for diet advancement, PO tolerance Advanced to renal diet per pt tolerating well. Per ADL note pt consumed 75% of dinner . Nurse stated pt has been asking for more food and requested double portions. Tail Edger observed 100% of lunch consumed. Pt has no visible signs of muscle or fat wasting Percent of energy/protein needs met: 85%/100% Burn Absent Trauma Absent Current % PO Good (75-100%) Minimum of two criteria No physical signs of malnutrition #2 Nutrition Diagnosis Food and nutrition-related knowledge deficit Etiology Pt is to begin HD once placement is found As Evidenced by Signs and Symptoms Pt report of no knowledge of renal diet #1 Nutrition Diagnosis Altered GI function As Evidenced by Signs and Symptoms Pt tolerating renal diet Diagnosis Progress(for reassessment Resolved documentation) Is patient on ventilator? No Is Patient Ambulatory and/or Out of Bed Yes REE-([place]-St. Jeor-ambulatory/OOB) [ 2463.019 [id number]] Calculation Used for Recommendations [place]-St Jeor Additional Notes Pro needs 0.8-0.9g/k-80g/ day Fluid needs 1ml/kcal Nutrition Intervention Change Diet Order: Continue renal diet Teaching Recipient Patient Learning Readiness Good Teaching Methods Discussion,Handout Response to Teaching Verbalize understanding Education Handouts Provided CKD Stage 5 Tips for People on Dialysis Barriers to Learning Financial RD phone number provided Yes Patient aware of follow up options Yes Anticipated Discharge Needs: Renal/CHO-controlled diet Revisit per MD consult or patient Sign Off request:
--- NOTE | 2019-09-01 14:16 | Progress Note ---
Assessment and Plan - Patient Problems (1) Acute on chronic renal insufficiency Current Visit: Yes Status: Acute Plan to address problem: acute on chronic renal insufficiency now with concern for ESRD - has been started on hemodialysis I reviewed urinalysis with proteinuria obtain renal US has right IJ cath awaiting dialysis placement (2) Anemia Current Visit: No Status: Acute Qualifiers: Other causes of anemia: chronic disease, other Plan to address problem: Moderate Anemia 2/2 Chronic kidney disease hb: 7.5g[place] [id number] monitor CBC. (3) Uncontrolled diabetes mellitus Current Visit: No Status: Acute Qualifiers: Diabetes mellitus type: type 2 Glycemic state: with hyperglycemia Qualified Code(s): E11.65 - Type 2 diabetes mellitus with hyperglycemia Plan to address problem: DM TYPE ii :Uncontrolled. Ensure medications monitor fingersticks. (4) HTN (hypertension) Current Visit: No Status: Chronic Plan to address problem: HTN: controlled. continue current medications. Subjective Principal diagnosis: ESRD, Interval history: 33 year old with abdominal pain , nausea, vomitting, ulcerative esophagitis ,gastroparesis , CKD admitted with worsening renal function . He was started on dialysis Awaiting dialysis placement. Objective - Vital Signs Vital signs: Vital Signs - 12hr 09/01/19 09/01/19 09/01/19 04:17 08:17 10:49 Temperature 98.3 F Pulse Rate 76 77 75 Respiratory 20 Rate Blood Pressure 167/95 183/94 160/91 O2 Sat by Pulse 99 Oximetry 09/01/19 14:03 Temperature Pulse Rate Respiratory Rate Blood Pressure 167/97 O2 Sat by Pulse Oximetry - General Appearance General appearance: well-developed, well-nourished EENT: ATNC, PERRL Neck: no JVD Respiratory: Present: Clear to Ascultation Cardiology: regular, S1S2 Gastrointestinal: normal, normoactive bowel sounds Integumentary: no rash Neurologic: alert and oriented x3, CN 3-12 intact Psychiatric: mood/affect appropriate - Lab 09/01/19 04:48 09/01/19 07:24 Most recent lab results Calcium 8.3 mg/dL (8.4-10.2) L 09/01/19 07:24 Phosphorus 5.70 mg/dL (2.5-4.5) H 08/23/19 08:55 Magnesium 1.80 mg/dL (1.7-2.3) 08/22/19 14:12 Urine Creatinine 56.0 mg/dL (0.1-20.0) H 08/24/19 15:16 - Imaging Chest x-ray: image reviewed Medications & Allergies - Medications Allergies/Adverse Reactions: Allergies No Known Allergies Allergy (Verified 11/21/18 17:51) Home Medications: Home Medications Medication Instructions Recorded Confirmed Last Taken Type ALBUTEROL Inhaler (OR & NICU) 1 puff IH Q4H PRN 08/21/19 08/21/19 Unknown History [Proair] Carvedilol [Coreg] 25 mg PO Q12H 08/21/19 08/21/19 Unknown History Furosemide [Lasix TAB] 40 mg PO BID 08/21/19 08/21/19 Unknown History Lisinopril [Zestril] 5 mg PO QDAY 08/21/19 08/21/19 Unknown History Metoclopramide [Reglan ORAL LIQ] 10 mg PO QID 08/21/19 08/21/19 Unknown History Pantoprazole [Protonix TAB] 40 mg PO BIDAC 08/21/19 08/21/19 Unknown History hydrALAZINE [Apresoline] 25 mg PO Q8HR 08/21/19 08/21/19 Unknown History Active Medications: Generic Name Dose Route Start Last Admin Trade Name Freq PRN Reason Stop Dose Admin Albuterol 2.5 mg 08/22/19 00:01 Proventil IH Q4HRT PRN Shortness Of Breath Epoetin Wale 20,000 unit 08/31/19 18:00 Procrit IV BRENDAN PRN hemodialysis Hydralazine HCl 20 mg 08/22/19 12:29 08/31/19 12:00 Apresoline IV 20 mg Q4H PRN Administration SBP>160 or DBP>110 Hydromorphone HCl 0.5 mg 08/25/19 07:17 Dilaudid IV Q3H PRN Pain , Severe (7-10) Sodium Chloride 100 mls @ 999 mls/hr 08/24/19 09:21 Nacl 0.9% IV BRENDAN PRN Hypotension Insulin Glargine 10 units 08/31/19 10:00 09/01/19 10:38 Lantus SUB-Q 10 units QAM KESHIA Administration Insulin Human Lispro 0 unit 08/22/19 22:00 09/01/19 13:50 Humalog SUB-Q 8 unit ACHS KESHIA Administration Protocol Losartan Potassium 100 mg 08/25/19 10:00 09/01/19 10:49 Cozaar PO 100 mg QDAY KESHIA Administration Metoclopramide HCl 5 mg 08/22/19 00:26 08/23/19 11:15 Reglan IV 5 mg Q6H PRN Administration Nausea And Vomiting Metoprolol Tartrate 50 mg 08/30/19 14:00 09/01/19 14:03 Lopressor PO 50 mg TID KESHIA Administration Ondansetron HCl 4 mg 08/21/19 23:10 08/23/19 17:15 Zofran IV 4 mg Q6H PRN Administration Nausea And Vomiting Oxycodone/Acetaminophen 1 tab 08/24/19 20:39 08/27/19 20:43 Percocet 5/325 PO 1 tab Q6H PRN Administration Pain, Moderate (4-6) Pantoprazole Sodium 40 mg 08/23/19 11:00 09/01/19 10:47 Protonix PO 40 mg QDAY KESHIA Administration
[2019-09-02] MEDS: INSULIN LISPRO 100 UNIT/ML SUB-Q SCH ×5 (00:15→23:15)
[2019-09-02] MEDS: METOPROLOL TARTRATE 50 MG TAB PO SCH ×3 (08:27→23:14)
--- NOTE | 2019-09-02 08:29 | Ultrasound Report ---
ULTRASOUND RENAL INDICATION / CLINICAL INFORMATION: End-stage renal disease. COMPARISON: 04/20/2019 FINDINGS: RIGHT KIDNEY: Length = 12.6 cm. [normal > 9 cm] - Parenchymal Thickness = 2.0 cm. [normal > 1.5 cm] - Echogenicity: Increased - Hydronephrosis: None. - Cyst or mass: No significant abnormality. - Stones: None seen. LEFT KIDNEY: Length = 12.5 cm. [normal > 9 cm] - Parenchymal Thickness = 2.4 cm. [normal > 1.5 cm] - Echogenicity: Increased - Hydronephrosis: None. - Cyst or mass: No significant abnormality. - Stones: None seen. URINARY BLADDER: No significant abnormality. FREE FLUID: None. ADDITIONAL FINDINGS: Trace ascites IMPRESSION: Nonspecific renal parenchymal disease. No focal renal lesion or hydronephrosis. No significant guidry e since a renal ultrasound dated 04/20/2019. Trace ascites. Signer Name: Jakub Dupree Jr, MD Signed: 09/01/2019 1:48 PM Workstation Name: [id number]
[2019-09-02] MEDS: INSULIN GLARGINE 100 UNITS/ML SUB-Q SCH (10:00)
[2019-09-02] MEDS: PANTOPRAZOLE 40 MG TAB PO SCH (10:20)
[2019-09-02] MEDS: LOSARTAN 50 MG TAB PO SCH (10:20)
[2019-09-02] MEDS ORDERED: SODIUM CHLORIDE 0.9% 100 ML IV PRN (12:47)
--- NOTE | 2019-09-02 13:05 | Progress Note ---
Assessment and Plan Assessment and plan: Patient is 33-year-old -[place] male presents to the emergency department via EMS from home with complaint of abdominal pain, nausea, vomiting and vomiting of blood that has been going on for 3 days prior to presentation. The patient does have a history of ulcerative esophagitis, gastroparesis, CKD stage 5 not on without hemodialysis, diabetes, hypertension. 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 He was seen and evaluated in ED and admitted. he was evaluated by Nephrology and GI Physician. Conservative management was recommended by GI Physician since he has had EGD X 2 this year. Nephrology initiated hemodialysis , stable for discharge awaiting outpatient HD placement ESRD Started on hemodilysis AND PLAN FOR MWF Awaiting outpatient HD placement Metabolic acidosis- Resolved Secondary to Renal function, will continue to monitor Upper GI bleed switch to PO PPI GI following No indication for EGD for now Gastroparesis IV Reglan and IV Zofran for now Resolved, tolerating PO IDDM (insulin dependent diabetes mellitus) Accu checks Qac AND adjust as needed A1c 5.5 Hypertension Monitor BP Asthma- stable at this time Albuterol MDI qid prn Anemia due to acute blood loss from GI bleed and ESRD Hgb 7.7 after 1 Unit PRBC went to 8.8 and now 7.9- continue to monitor Hypernatremia-RESOLVED Severe Malnutrition; Disupportive care supportive care Dietitian consult DVT prophylaxis SCD's only because GI bleed Awaiting outpatient HD placement Patient is medically stable for discharge History Interval history: Patient seen and examined medical records reviewed Patient is slightly better Receiving hemodialysis per schedule Medically stable for discharge Awaiting outpatient HD chairs scheduling No new complaints Hospitalist Physical - Constitutional Vitals: Temp Pulse Resp BP Pulse Ox 98.3 F 72 20 152/88 100 09/01/19 23:39 09/02/19 08:27 09/02/19 10:00 09/02/19 08:27 09/01/19 23:39 General appearance: Present: no acute distress, well-nourished - EENT Eyes: Present: PERRL, EOM intact - Neck Neck: Present: supple, normal ROM - Respiratory Respiratory effort: normal Respiratory: bilateral: diminished, negative: rales, rhonchi, wheezing - Cardiovascular Rhythm: regular Heart Sounds: Present: S1 & S2 - Extremities Extremities: no ischemia, No edema - Abdominal General gastrointestinal: soft, non-tender, non-distended, normal bowel sounds - Integumentary Integumentary: Present: clear, warm - Psychiatric Psychiatric: appropriate mood/affect, cooperative - Neurologic Neurologic: CNII-XII intact, moves all extremities Results - Labs CBC & Chem 7: 09/01/19 04:48 09/01/19 07:24 Labs: Laboratory Last Values WBC 6.9 K/mm3 (4.5-11.0) 09/01/19 04:48 RBC 2.68 M/mm3 (3.65-5.03) L 09/01/19 04:48 Hgb 7.5 gm/dl (11.8-15.2) L 09/01/19 04:48 Hct 23.2 % (35.5-45.6) L 09/01/19 04:48 MCV 87 fl (84-94) 09/01/19 04:48 MCH 28 pg (28-32) 09/01/19 04:48 MCHC 32 % (32-34) 09/01/19 04:48 RDW 15.0 % (13.2-15.2) 09/01/19 04:48 Plt Count 337 K/mm3 (140-440) 09/01/19 04:48 Lymph % (Auto) 26.5 % (13.4-35.0) 08/29/19 04:18 [place] % (Auto) 12.5 % (0.0-7.3) H 08/29/19 04:18 Eos % (Auto) 2.8 % (0.0-4.3) 08/29/19 04:18 Baso % (Auto) 1.5 % (0.0-1.8) 08/29/19 04:18 Lymph # 2.0 K/mm3 (1.2-5.4) 08/29/19 04:18 [place] # 0.9 K/mm3 (0.0-0.8) H 08/29/19 04:18 Eos # 0.2 K/mm3 (0.0-0.4) 08/29/19 04:18 Baso # 0.1 K/mm3 (0.0-0.1) 08/29/19 04:18 Seg Neutrophils % 56.7 % (40.0-70.0) 08/29/19 04:18 Seg Neutrophils # 4.2 K/mm3 (1.8-7.7) 08/29/19 04:18 Percent Retic 3.77 % (0.78-2.58) H 08/30/19 14:30 PT 14.1 Sec. (12.2-14.9) 08/21/19 10:20 INR 1.12 (0.87-1.13) 08/21/19 10:20 APTT 34.3 Sec. (24.2-36.6) 08/21/19 10:20 Sodium 137 mmol/L (137-145) 09/01/19 07:24 Potassium 4.0 mmol/L (3.6-5.0) 09/01/19 07:24 Chloride 100.8 mmol/L (98-107) 09/01/19 07:24 Carbon Dioxide 25 mmol/L (22-30) 09/01/19 07:24 Anion Gap 15 mmol/L 09/01/19 07:24 BUN 26 mg/dL (9-20) H 09/01/19 07:24 Creatinine 5.5 mg/dL (0.8-1.5) H 09/01/19 07:24 Estimated GFR 15 ml/min 09/01/19 07:24 BUN/Creatinine Ratio 5 % 09/01/19 07:24 Glucose 193 mg/dL (75-100) H 09/01/19 07:24 POC Glucose 182 (70-105) H 09/02/19 08:07 Hemoglobin A1c 5.5 % (4-6) 08/27/19 08:30 Calcium 8.3 mg/dL (8.4-10.2) L 09/01/19 07:24 Phosphorus 5.70 mg/dL (2.5-4.5) H 08/23/19 08:55 Magnesium 1.80 mg/dL (1.7-2.3) 08/22/19 14:12 Iron 21 ug/dL (49-181) L 08/30/19 14:30 TIBC 178 mcg/dL (250-450) L 08/30/19 14:30 % Saturation 30.38 % 08/23/19 08:55 Transferrin 138 mg/dl (180-329) L 08/23/19 08:55 Ferritin 211.5 ng/mL (13.0-400.0) 08/24/19 03:01 Total Bilirubin 0.30 mg/dL (0.1-1.2) 08/21/19 10:29 AST 16 units/L (5-40) 08/21/19 10:29 ALT 9 units/L (7-56) 08/21/19 10:29 Alkaline Phosphatase 57 units/L (35-129) 08/21/19 10:29 Total Protein 6.0 g/dL (6.3-8.2) L 08/21/19 10:29 Albumin 2.5 g/dL (3.9-5) L 08/21/19 10:29 Albumin/Globulin Ratio 0.7 % 08/21/19 10:29 Vitamin B12 771.7 pg/mL (211-911) 08/30/19 14:30 Folate 5.52 ng/mL (7.3-26.0) L 08/30/19 14:30 PTH Intact 63.81 pg/mL (15-65) 08/31/19 06:30 Urine Color Yellow (Yellow) 08/23/19 11:43 Urine Turbidity Clear (Clear) 08/23/19 11:43 Urine pH 6.0 (5.0-7.0) 08/23/19 11:43 Ur Specific [place] 1.016 (1.003-1.030) 08/23/19 11:43 Urine Protein >500 mg/dL (Negative) 08/23/19 11:43 Urine Glucose (UA) >=500 mg/dL (Negative) 08/23/19 11:43 Urine Ketones Neg mg/dL (Negative) 08/23/19 11:43 Urine Blood Sm (Negative) 08/23/19 11:43 Urine Nitrite Neg (Negative) 08/23/19 11:43 Urine Bilirubin Neg (Negative) 08/23/19 11:43 Urine Urobilinogen < 2.0 mg/dL (<2.0) 08/23/19 11:43 Ur Leukocyte Esterase Neg (Negative) 08/23/19 11:43 Urine WBC (Auto) 5.0 /HPF (0.0-6.0) 08/23/19 11:43 Urine RBC (Auto) 1.0 /HPF (0.0-6.0) 08/23/19 11:43 U Epithel Cells (Auto) < 1.0 /HPF (0-13.0) 08/23/19 11:43 Urine Bacteria (Auto) 1+ /HPF (Negative) 08/23/19 11:43 Hyaline Casts 6 /LPF 08/23/19 11:43 Urine Mucus Few /HPF 08/23/19 11:43 Urine Eosinophils None seen (None Seen) 08/23/19 11:43 Urine Total Volume 515 ml 08/24/19 15:16 Urine Creatinine 56.0 mg/dL (0.1-20.0) H 08/24/19 15:16 Ur Creatinine 24 Hour 1.7 (0.8-2.8) 08/22/19 08:36 Height (in) 75.0 inches 08/24/19 15:16 Weight (lb) 206.0 lbs 08/24/19 15:16 Creatinine Clearance 1 08/24/19 15:16 Hepatitis A IgM Ab Non-reactive (NonReactive) 08/24/19 15:01 Hep Bs Antigen Non-reactive (Negative) 08/24/19 15:01 Hep B Core IgM Ab Non-reactive (NonReactive) 08/24/19 15:01 Hepatitis C Antibody Non-reactive (NonReactive) 08/24/19 15:01 Blood Type O POSITIVE 08/21/19 10:20 Antibody Screen Negative 08/21/19 10:20 Crossmatch See Detail 08/21/19 10:20 Active Medications - Current Medications Current Medications: Generic Name Dose Route Start Last Admin Trade Name Freq PRN Reason Stop Dose Admin Albuterol 2.5 mg 08/22/19 00:01 Proventil IH Q4HRT PRN Shortness Of Breath Epoetin Wale 20,000 unit 08/31/19 18:00 Procrit IV BRENDAN PRN hemodialysis Hydralazine HCl 20 mg 08/22/19 12:29 08/31/19 12:00 Apresoline IV 20 mg Q4H PRN Administration SBP>160 or DBP>110 Hydromorphone HCl 0.5 mg 08/25/19 07:17 Dilaudid IV Q3H PRN Pain , Severe (7-10) Sodium Chloride 100 mls @ 999 mls/hr 09/02/19 12:47 Nacl 0.9% IV BRENDAN PRN Hypotension Insulin Glargine 10 units 08/31/19 10:00 09/01/19 10:38 Lantus SUB-Q 10 units QAM KESHIA Administration Insulin Human Lispro 0 unit 08/22/19 22:00 09/02/19 08:27 Humalog SUB-Q 3 unit ACHS KESHIA Administration Protocol Losartan Potassium 100 mg 08/25/19 10:00 09/02/19 10:20 Cozaar PO 100 mg QDAY KESHIA Administration Metoclopramide HCl 5 mg 08/22/19 00:26 08/23/19 11:15 Reglan IV 5 mg Q6H PRN Administration Nausea And Vomiting Metoprolol Tartrate 50 mg 08/30/19 14:00 09/02/19 08:27 Lopressor PO 50 mg TID KESHIA Administration Ondansetron HCl 4 mg 08/21/19 23:10 08/23/19 17:15 Zofran IV 4 mg Q6H PRN Administration Nausea And Vomiting Oxycodone/Acetaminophen 1 tab 08/24/19 20:39 08/27/19 20:43 Percocet 5/325 PO 1 tab Q6H PRN Administration Pain, Moderate (4-6) Pantoprazole Sodium 40 mg 08/23/19 11:00 09/02/19 10:20 Protonix PO 40 mg QDAY KESHIA Administration Nutrition/Malnutrition Assess - Dietary Evaluation Nutrition/Malnutrition Findings: Nutrition Notes Start: 08/22/19 12:39 Freq: Status: Active Protocol: Document 08/25/19 10:31 CC (Rec: 08/25/19 13:40 CC [email or web address]) Co-Sign 08/25/19 10:31 KH Nutrition Notes Initial or Follow up Reassessment Current Diagnosis CKD(stage I-IV),Diabetes, Hypertension Other Pertinent Diagnosis Upper GIB, Anemia, Gastroparesis Current Diet Renal Labs/Tests Na 133, GFR 9, Creat 8.4, BUN 49, Glu 258 Pertinent Medications Reviewed Height 6 ft 3 in Weight 85.4 kg Usual Body Weight 88.6 kg [place] Body Weight (kg) 89.09 BMI 23.5 Intake Prior to Admission Good Weight change and time frame Pt continues to deny recent wt loss. Pt denied holding fluid Weight Status Appropriate Subjective/Other Information F/U for diet advancement, PO tolerance Advanced to renal diet per pt tolerating well. Per ADL note pt consumed 75% of dinner . Nurse stated pt has been asking for more food and requested double portions. 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 Pt has no visible signs of muscle or fat wasting Percent of energy/protein needs met: 85%/100% Burn Absent Trauma Absent Current % PO Good (75-100%) Minimum of two criteria No physical signs of malnutrition #2 Nutrition Diagnosis Food and nutrition-related knowledge deficit Etiology Pt is to begin HD once placement is found As Evidenced by Signs and Symptoms Pt report of no knowledge of renal diet #1 Nutrition Diagnosis Altered GI function As Evidenced by Signs and Symptoms Pt tolerating renal diet Diagnosis Progress(for reassessment Resolved documentation) Is patient on ventilator? No Is Patient Ambulatory and/or Out of Bed Yes REE-([place]-St. Jeor-ambulatory/OOB) [ 2463.019 [id number]] Calculation Used for Recommendations [place]-St Jeor Additional Notes Pro needs 0.8-0.9g/k-80g/ day Fluid needs 1ml/kcal Nutrition Intervention Change Diet Order: Continue renal diet Teaching Recipient Patient Learning Readiness Good Teaching Methods Discussion,Handout Response to Teaching Verbalize understanding Education Handouts Provided CKD Stage 5 Tips for People on Dialysis Barriers to Learning Financial RD phone number provided Yes Patient aware of follow up options Yes Anticipated Discharge Needs: Renal/CHO-controlled diet Revisit per MD consult or patient Sign Off request:
[2019-09-02] MEDS ORDERED: SODIUM CHLORIDE*PRIMING MACHINE ONLY FOR DIALYSIS MC ONE (13:33)
[2019-09-02] MEDS: EPOETIN ALFA 20,000 UNIT/1 ML INJ IV PRN (14:40)
[2019-09-02] MEDS: hydrALAZINE 20 MG/1 ML INJ IV PRN (14:51)
--- NOTE | 2019-09-02 15:46 | Progress Note ---
Assessment and Plan - Patient Problems (1) Acute on chronic renal insufficiency Current Visit: Yes Status: Acute Plan to address problem: acute on chronic renal insufficiency now with Probable ESRD - has been started on hemodialysis I reviewed urinalysis with proteinuria I reviewed renal US with echogenic kidneys. has right IJ cath awaiting dialysis placement (2) Anemia Current Visit: No Status: Acute Qualifiers: Other causes of anemia: chronic disease, other Plan to address problem: Moderate Anemia 2/2 Chronic kidney disease hb: 7.5g[place] [id number] monitor CBC. (3) Uncontrolled diabetes mellitus Current Visit: No Status: Acute Qualifiers: Diabetes mellitus type: type 2 Glycemic state: with hyperglycemia Qualified Code(s): E11.65 - Type 2 diabetes mellitus with hyperglycemia Plan to address problem: DM TYPE ii :Uncontrolled. Ensure medications monitor fingersticks. (4) HTN (hypertension) Current Visit: No Status: Chronic Plan to address problem: HTN: controlled. continue current medications. Subjective Principal diagnosis: ESRD, Interval history: 33 year old with abdominal pain , nausea, vomitting, ulcerative esophagitis ,gastroparesis , CKD admitted with worsening renal function . He was started on dialysis I attest I saw the patient on hemodialysis. Awaiting dialysis placement. Objective - Vital Signs Vital signs: Vital Signs - 12hr 09/02/19 09/02/19 09/02/19 08:27 10:00 10:35 Temperature 98.1 F Pulse Rate 72 70 Respiratory 20 16 Rate Blood Pressure 152/88 163/97 09/02/19 09/02/19 09/02/19 10:45 11:00 11:15 Temperature Pulse Rate 70 72 71 Respiratory Rate Blood Pressure 170/98 153/94 158/91 09/02/19 09/02/19 09/02/19 11:30 11:45 12:00 Temperature Pulse Rate 72 72 72 Respiratory Rate Blood Pressure 173/87 169/94 162/87 09/02/19 09/02/19 09/02/19 12:15 12:30 12:45 Temperature Pulse Rate 73 72 70 Respiratory Rate Blood Pressure 151/86 173/94 162/95 09/02/19 09/02/19 13:00 14:51 Temperature Pulse Rate 71 72 Respiratory Rate Blood Pressure 174/96 205/118 - General Appearance General appearance: well-developed, well-nourished EENT: ATNC, PERRL, mucous membranes moist Neck: no JVD Respiratory: Present: Clear to Ascultation Cardiology: regular, S1S2 Gastrointestinal: normal, normoactive bowel sounds Integumentary: no rash Neurologic: no focal deficit, CN 3-12 intact Psychiatric: mood/affect appropriate - Lab 09/01/19 04:48 09/01/19 07:24 Most recent lab results Calcium 8.3 mg/dL (8.4-10.2) L 09/01/19 07:24 Phosphorus 5.70 mg/dL (2.5-4.5) H 08/23/19 08:55 Magnesium 1.80 mg/dL (1.7-2.3) 08/22/19 14:12 Urine Creatinine 56.0 mg/dL (0.1-20.0) H 08/24/19 15:16 - Imaging Chest x-ray: image reviewed (I reviewed CXR without edema) Kidney/bladder ultrasound: image reviewed (i reviewed renal us with echogenic kidneys no hydronephrosis. ) Medications & Allergies - Medications Allergies/Adverse Reactions: Allergies No Known Allergies Allergy (Verified 11/21/18 17:51) Home Medications: Home Medications Medication Instructions Recorded Confirmed Last Taken Type ALBUTEROL Inhaler (OR & NICU) 1 puff IH Q4H PRN 08/21/19 08/21/19 Unknown History [Proair] Carvedilol [Coreg] 25 mg PO Q12H 08/21/19 08/21/19 Unknown History Furosemide [Lasix TAB] 40 mg PO BID 08/21/19 08/21/19 Unknown History Lisinopril [Zestril] 5 mg PO QDAY 08/21/19 08/21/19 Unknown History Metoclopramide [Reglan ORAL LIQ] 10 mg PO QID 08/21/19 08/21/19 Unknown History Pantoprazole [Protonix TAB] 40 mg PO BIDAC 08/21/19 08/21/19 Unknown History hydrALAZINE [Apresoline] 25 mg PO Q8HR 08/21/19 08/21/19 Unknown History Active Medications: Generic Name Dose Route Start Last Admin Trade Name Freq PRN Reason Stop Dose Admin Albuterol 2.5 mg 08/22/19 00:01 Proventil IH Q4HRT PRN Shortness Of Breath Epoetin [place] 20,000 unit 09/02/19 15:00 09/02/19 14:40 Procrit IV 20,000 unit BRENDAN PRN Administration hemodialysis Hydralazine HCl 20 mg 08/22/19 12:29 09/02/19 14:51 Apresoline IV 20 mg Q4H PRN Administration SBP>160 or DBP>110 Hydromorphone HCl 0.5 mg 08/25/19 07:17 Dilaudid IV Q3H PRN Pain , Severe (7-10) Sodium Chloride 100 mls @ 999 mls/hr 09/02/19 12:47 Nacl 0.9% IV BRENDAN PRN Hypotension Insulin Glargine 10 units 08/31/19 10:00 09/01/19 10:38 Lantus SUB-Q 10 units QAM KESHIA Administration Insulin Human Lispro 0 unit 08/22/19 22:00 09/02/19 08:27 Humalog SUB-Q 3 unit ACHS KESHIA Administration Protocol Losartan Potassium 100 mg 08/25/19 10:00 09/02/19 10:20 Cozaar PO 100 mg QDAY KESHIA Administration Metoclopramide HCl 5 mg 08/22/19 00:26 08/23/19 11:15 Reglan IV 5 mg Q6H PRN Administration Nausea And Vomiting Metoprolol Tartrate 50 mg 08/30/19 14:00 09/02/19 08:27 Lopressor PO 50 mg TID KESHIA Administration Ondansetron HCl 4 mg 08/21/19 23:10 08/23/19 17:15 Zofran IV 4 mg Q6H PRN Administration Nausea And Vomiting Oxycodone/Acetaminophen 1 tab 08/24/19 20:39 08/27/19 20:43 Percocet 5/325 PO 1 tab Q6H PRN Administration Pain, Moderate (4-6) Pantoprazole Sodium 40 mg 08/23/19 11:00 09/02/19 10:20 Protonix PO 40 mg QDAY KESHIA Administration
--- NOTE | 2019-09-03 08:30 | Progress Note ---
Assessment and Plan Assessment and plan: Patient is 33-year-old -[place] male presents to the emergency department via EMS from home with complaint of abdominal pain, nausea, vomiting and vomiting of blood that has been going on for 3 days prior to presentation. The patient does have a history of ulcerative esophagitis, gastroparesis, CKD stage 5 not on without hemodialysis, diabetes, hypertension. 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 He was seen and evaluated in ED and admitted. he was evaluated by Nephrology and GI Physician. Conservative management was recommended by GI Physician since he has had EGD X 2 this year. Nephrology initiated hemodialysis , stable for discharge awaiting outpatient HD placement --ESRD: Started on hemodilysis HD per schedule MWF Awaiting outpatient HD placement --Metabolic acidosis- Resolved; HD per schedule --Upper GI bleed; resolved Evaluated by GI , stable No indication for EGD op follow-up --Gastroparesis; Resolved, tolerating PO --IDDM (insulin dependent diabetes mellitus) Accu checks Qac AND Lantus, A1c 5.5 --Hypertension; moderate control Optimize BP meds --History of bronchial Asthma- stable Albuterol MDI qid prn --Anemia due to acute blood loss: from GI bleed and ESRD s/p 1 Unit PRBC H&H improved , nonicteric --Hypernatremia-RESOLVED --Severe Malnutrition/hypoalbuminemia supportive care supportive care , Dietitian consult --DVT prophylaxis; SCD's No pharmacologic anticoagulation In view of GI bleeding and anemia Awaiting outpatient HD placement Plan of care is reviewed with the patient and his nurse And also case management Patient is medically stable for discharge History Interval history: Patient seen and examined in his room this morning medical records reviewed No new complaints, Vital signs noted Patient is awaiting outpatient HD placement Hospitalist Physical - Constitutional Vitals: Temp Pulse Resp BP Pulse Ox 99.2 F 81 16 152/91 100 09/03/19 04:51 09/03/19 04:51 09/03/19 04:51 09/03/19 04:51 09/03/19 04:51 General appearance: Present: no acute distress, well-nourished - EENT Eyes: Present: PERRL, EOM intact - Neck Neck: Present: supple, normal ROM - Respiratory Respiratory effort: normal Respiratory: bilateral: diminished, negative: rales, rhonchi, wheezing - Cardiovascular Rhythm: regular Heart Sounds: Present: S1 & S2 - Extremities Extremities: no ischemia, No edema - Abdominal General gastrointestinal: soft, non-tender, non-distended, normal bowel sounds - Integumentary Integumentary: Present: clear, warm - Psychiatric Psychiatric: appropriate mood/affect, cooperative - Neurologic Neurologic: CNII-XII intact, moves all extremities Results - Labs CBC & Chem 7: 09/01/19 04:48 09/01/19 07:24 Labs: Laboratory Last Values WBC 6.9 K/mm3 (4.5-11.0) 09/01/19 04:48 RBC 2.68 M/mm3 (3.65-5.03) L 09/01/19 04:48 Hgb 7.5 gm/dl (11.8-15.2) L 09/01/19 04:48 Hct 23.2 % (35.5-45.6) L 09/01/19 04:48 MCV 87 fl (84-94) 09/01/19 04:48 MCH 28 pg (28-32) 09/01/19 04:48 MCHC 32 % (32-34) 09/01/19 04:48 RDW 15.0 % (13.2-15.2) 09/01/19 04:48 Plt Count 337 K/mm3 (140-440) 09/01/19 04:48 Lymph % (Auto) 26.5 % (13.4-35.0) 08/29/19 04:18 [place] % (Auto) 12.5 % (0.0-7.3) H 08/29/19 04:18 Eos % (Auto) 2.8 % (0.0-4.3) 08/29/19 04:18 Baso % (Auto) 1.5 % (0.0-1.8) 08/29/19 04:18 Lymph # 2.0 K/mm3 (1.2-5.4) 08/29/19 04:18 [place] # 0.9 K/mm3 (0.0-0.8) H 08/29/19 04:18 Eos # 0.2 K/mm3 (0.0-0.4) 08/29/19 04:18 Baso # 0.1 K/mm3 (0.0-0.1) 08/29/19 04:18 Seg Neutrophils % 56.7 % (40.0-70.0) 08/29/19 04:18 Seg Neutrophils # 4.2 K/mm3 (1.8-7.7) 08/29/19 04:18 Percent Retic 3.77 % (0.78-2.58) H 08/30/19 14:30 PT 14.1 Sec. (12.2-14.9) 08/21/19 10:20 INR 1.12 (0.87-1.13) 08/21/19 10:20 APTT 34.3 Sec. (24.2-36.6) 08/21/19 10:20 Sodium 137 mmol/L (137-145) 09/01/19 07:24 Potassium 4.0 mmol/L (3.6-5.0) 09/01/19 07:24 Chloride 100.8 mmol/L (98-107) 09/01/19 07:24 Carbon Dioxide 25 mmol/L (22-30) 09/01/19 07:24 Anion Gap 15 mmol/L 09/01/19 07:24 BUN 26 mg/dL (9-20) H 09/01/19 07:24 Creatinine 5.5 mg/dL (0.8-1.5) H 09/01/19 07:24 Estimated GFR 15 ml/min 09/01/19 07:24 BUN/Creatinine Ratio 5 % 09/01/19 07:24 Glucose 193 mg/dL (75-100) H 09/01/19 07:24 POC Glucose 351 (70-105) H 09/02/19 21:21 Hemoglobin A1c 5.5 % (4-6) 08/27/19 08:30 Calcium 8.3 mg/dL (8.4-10.2) L 09/01/19 07:24 Phosphorus 5.70 mg/dL (2.5-4.5) H 08/23/19 08:55 Magnesium 1.80 mg/dL (1.7-2.3) 08/22/19 14:12 Iron 21 ug/dL (49-181) L 08/30/19 14:30 TIBC 178 mcg/dL (250-450) L 08/30/19 14:30 % Saturation 30.38 % 08/23/19 08:55 Transferrin 138 mg/dl (180-329) L 08/23/19 08:55 Ferritin 211.5 ng/mL (13.0-400.0) 08/24/19 03:01 Total Bilirubin 0.30 mg/dL (0.1-1.2) 08/21/19 10:29 AST 16 units/L (5-40) 08/21/19 10:29 ALT 9 units/L (7-56) 08/21/19 10:29 Alkaline Phosphatase 57 units/L (35-129) 08/21/19 10:29 Total Protein 6.0 g/dL (6.3-8.2) L 08/21/19 10:29 Albumin 2.5 g/dL (3.9-5) L 08/21/19 10:29 Albumin/Globulin Ratio 0.7 % 08/21/19 10:29 Vitamin B12 771.7 pg/mL (211-911) 08/30/19 14:30 Folate 5.52 ng/mL (7.3-26.0) L 08/30/19 14:30 PTH Intact 63.81 pg/mL (15-65) 08/31/19 06:30 Urine Color Yellow (Yellow) 08/23/19 11:43 Urine Turbidity Clear (Clear) 08/23/19 11:43 Urine pH 6.0 (5.0-7.0) 08/23/19 11:43 Ur Specific [place] 1.016 (1.003-1.030) 08/23/19 11:43 Urine Protein >500 mg/dL (Negative) 08/23/19 11:43 Urine Glucose (UA) >=500 mg/dL (Negative) 08/23/19 11:43 Urine Ketones Neg mg/dL (Negative) 08/23/19 11:43 Urine Blood Sm (Negative) 08/23/19 11:43 Urine Nitrite Neg (Negative) 08/23/19 11:43 Urine Bilirubin Neg (Negative) 08/23/19 11:43 Urine Urobilinogen < 2.0 mg/dL (<2.0) 08/23/19 11:43 Ur Leukocyte Esterase Neg (Negative) 08/23/19 11:43 Urine WBC (Auto) 5.0 /HPF (0.0-6.0) 08/23/19 11:43 Urine RBC (Auto) 1.0 /HPF (0.0-6.0) 08/23/19 11:43 U Epithel Cells (Auto) < 1.0 /HPF (0-13.0) 08/23/19 11:43 Urine Bacteria (Auto) 1+ /HPF (Negative) 08/23/19 11:43 Hyaline Casts 6 /LPF 08/23/19 11:43 Urine Mucus Few /HPF 08/23/19 11:43 Urine Eosinophils None seen (None Seen) 08/23/19 11:43 Urine Total Volume 515 ml 08/24/19 15:16 Urine Creatinine 56.0 mg/dL (0.1-20.0) H 08/24/19 15:16 Ur Creatinine 24 Hour 1.7 (0.8-2.8) 08/22/19 08:36 Height (in) 75.0 inches 08/24/19 15:16 Weight (lb) 206.0 lbs 08/24/19 15:16 Creatinine Clearance 1 08/24/19 15:16 Hepatitis A IgM Ab Non-reactive (NonReactive) 08/24/19 15:01 Hep Bs Antigen Non-reactive (Negative) 08/24/19 15:01 Hep B Core IgM Ab Non-reactive (NonReactive) 08/24/19 15:01 Hepatitis C Antibody Non-reactive (NonReactive) 08/24/19 15:01 Blood Type O POSITIVE 08/21/19 10:20 Antibody Screen Negative 08/21/19 10:20 Crossmatch See Detail 08/21/19 10:20 Active Medications - Current Medications Current Medications: Generic Name Dose Route Start Last Admin Trade Name Freq PRN Reason Stop Dose Admin Albuterol 2.5 mg 08/22/19 00:01 Proventil IH Q4HRT PRN Shortness Of Breath Epoetin Wale 20,000 unit 09/02/19 15:00 09/02/19 14:40 Procrit IV 20,000 unit BRENDAN PRN Administration hemodialysis Hydralazine HCl 20 mg 08/22/19 12:29 09/02/19 14:51 Apresoline IV 20 mg Q4H PRN Administration SBP>160 or DBP>110 Hydromorphone HCl 0.5 mg 08/25/19 07:17 Dilaudid IV Q3H PRN Pain , Severe (7-10) Sodium Chloride 100 mls @ 999 mls/hr 09/02/19 12:47 Nacl 0.9% IV BRENDAN PRN Hypotension Insulin Glargine 10 units 08/31/19 10:00 09/02/19 10:00 Lantus SUB-Q Not Given QAM KESHIA Insulin Human Lispro 0 unit 08/22/19 22:00 09/02/19 23:15 Humalog SUB-Q 10 unit ACHS KESHIA Administration Protocol Losartan Potassium 100 mg 08/25/19 10:00 09/02/19 10:20 Cozaar PO 100 mg QDAY KESHIA Administration Metoclopramide HCl 5 mg 08/22/19 00:26 08/23/19 11:15 Reglan IV 5 mg Q6H PRN Administration Nausea And Vomiting Metoprolol Tartrate 50 mg 08/30/19 14:00 09/02/19 23:14 Lopressor PO 50 mg TID KESHIA Administration Ondansetron HCl 4 mg 08/21/19 23:10 08/23/19 17:15 Zofran IV 4 mg Q6H PRN Administration Nausea And Vomiting Oxycodone/Acetaminophen 1 tab 08/24/19 20:39 08/27/19 20:43 Percocet 5/325 PO 1 tab Q6H PRN Administration Pain, Moderate (4-6) Pantoprazole Sodium 40 mg 08/23/19 11:00 09/02/19 10:20 Protonix PO 40 mg QDAY KESHIA Administration Nutrition/Malnutrition Assess - Dietary Evaluation Nutrition/Malnutrition Findings: Nutrition Notes Start: 08/22/19 12:39 Freq: Status: Active Protocol: Document 08/25/19 10:31 CC (Rec: 08/25/19 13:40 CC [id number]) Co-Sign 08/25/19 10:31 KH Nutrition Notes Initial or Follow up Reassessment Current Diagnosis CKD(stage I-IV),Diabetes, Hypertension Other Pertinent Diagnosis Upper GIB, Anemia, Gastroparesis Current Diet Renal Labs/Tests Na 133, GFR 9, Creat 8.4, BUN 49, Glu 258 Pertinent Medications Reviewed Height 6 ft 3 in Weight 85.4 kg Usual Body Weight 88.6 kg [place] Body Weight (kg) 89.09 BMI 23.5 Intake Prior to Admission Good Weight change and time frame Pt continues to deny recent wt loss. Pt denied holding fluid Weight Status Appropriate Subjective/Other Information F/U for diet advancement, PO tolerance Advanced to renal diet per pt tolerating well. Per ADL note pt consumed 75% of dinner . Nurse stated pt has been asking for more food and requested double portions. Pack Out Operator observed 100% of lunch consumed. Pt has no visible signs of muscle or fat wasting Percent of energy/protein needs met: 85%/100% Burn Absent Trauma Absent Current % PO Good (75-100%) Minimum of two criteria No physical signs of malnutrition #2 Nutrition Diagnosis Food and nutrition-related knowledge deficit Etiology Pt is to begin HD once placement is found As Evidenced by Signs and Symptoms Pt report of no knowledge of renal diet #1 Nutrition Diagnosis Altered GI function As Evidenced by Signs and Symptoms Pt tolerating renal diet Diagnosis Progress(for reassessment Resolved documentation) Is patient on ventilator? No Is Patient Ambulatory and/or Out of Bed Yes REE-(Pickett-St. Jeor-ambulatory/OOB) [ 2463.019 [id number]] Calculation Used for Recommendations Pickett-St Jeor Additional Notes Pro needs 0.8-0.9g/k-80g/ day Fluid needs 1ml/kcal Nutrition Intervention Change Diet Order: Continue renal diet Teaching Recipient Patient Learning Readiness Good Teaching Methods Discussion,Handout Response to Teaching Verbalize understanding Education Handouts Provided CKD Stage 5 Tips for People on Dialysis Barriers to Learning Financial RD phone number provided Yes Patient aware of follow up options Yes Anticipated Discharge Needs: Renal/CHO-controlled diet Revisit per MD consult or patient Sign Off request:
[2019-09-03] MEDS: INSULIN LISPRO 100 UNIT/ML SUB-Q SCH ×4 (08:54→21:56)
[2019-09-03] MEDS: METOPROLOL TARTRATE 50 MG TAB PO SCH ×3 (08:55→21:30)
[2019-09-03] MEDS: LOSARTAN 50 MG TAB PO SCH (09:01)
[2019-09-03] MEDS: PANTOPRAZOLE 40 MG TAB PO SCH (09:03)
[2019-09-03] MEDS: INSULIN GLARGINE 100 UNITS/ML SUB-Q SCH ×2 (09:31→18:20)
--- NOTE | 2019-09-03 09:46 | Progress Note ---
Assessment and Plan - Patient Problems (1) Acute on chronic renal insufficiency Current Visit: Yes Status: Acute Plan to address problem: acute on chronic renal insufficiency now with Probable ESRD - has been started on hemodialysis I reviewed urinalysis with proteinuria I reviewed renal US with echogenic kidneys. has right IJ cath awaiting dialysis placement (2) Anemia Current Visit: No Status: Acute Qualifiers: Other causes of anemia: chronic disease, other Plan to address problem: Moderate Anemia 2/2 Chronic kidney disease hb: 7.5g/dl [place] [id number] monitor CBC. (3) Uncontrolled diabetes mellitus Current Visit: No Status: Acute Qualifiers: Diabetes mellitus type: type 2 Glycemic state: with hyperglycemia Qualified Code(s): E11.65 - Type 2 diabetes mellitus with hyperglycemia Plan to address problem: DM TYPE ii :Uncontrolled. Ensure medications monitor fingersticks. (4) HTN (hypertension) Current Visit: No Status: Chronic Plan to address problem: HTN: controlled. continue current medications. Subjective Principal diagnosis: ESRD, Interval history: 33 year old with abdominal pain , nausea, vomitting, ulcerative esophagitis ,gastroparesis , CKD admitted with worsening renal function . He was started on dialysis tolerated hemodialysis yesterday. I have spoken to the Cuprous Chloride Operator at [facility] regarding dialysis placement , Per Director they did not receive admission documents Need to clarify with case management Objective - Vital Signs Vital signs: Vital Signs - 12hr 09/02/19 09/02/19 09/03/19 23:13 23:14 04:51 Temperature 97.7 F 99.2 F Pulse Rate 84 81 Respiratory 16 Rate Blood Pressure 125/68 152/91 O2 Sat by Pulse 100 Oximetry 09/03/19 09/03/19 08:55 09:01 Temperature Pulse Rate 81 81 Respiratory Rate Blood Pressure 152/91 152/91 O2 Sat by Pulse Oximetry - General Appearance General appearance: well-developed, well-nourished EENT: ATNC, PERRL, mucous membranes moist Neck: no JVD Respiratory: Present: Clear to Ascultation, Decreased Breath Sounds Cardiology: S1S2 Gastrointestinal: normal, normoactive bowel sounds Integumentary: no rash Neurologic: alert and oriented x3, CN 3-12 intact Psychiatric: mood/affect appropriate - Lab 09/01/19 04:48 09/01/19 07:24 Most recent lab results Calcium 8.3 mg/dL (8.4-10.2) L 09/01/19 07:24 Phosphorus 5.70 mg/dL (2.5-4.5) H 08/23/19 08:55 Magnesium 1.80 mg/dL (1.7-2.3) 08/22/19 14:12 Urine Creatinine 56.0 mg/dL (0.1-20.0) H 08/24/19 15:16 - Imaging Chest x-ray: image reviewed (i reviewed CXR without edema. ) Medications & Allergies - Medications Allergies/Adverse Reactions: Allergies No Known Allergies Allergy (Verified 11/21/18 17:51) Home Medications: Home Medications Medication Instructions Recorded Confirmed Last Taken Type ALBUTEROL Inhaler (OR & NICU) 1 puff IH Q4H PRN 08/21/19 08/21/19 Unknown History [Proair] Carvedilol [Coreg] 25 mg PO Q12H 08/21/19 08/21/19 Unknown History Furosemide [Lasix TAB] 40 mg PO BID 08/21/19 08/21/19 Unknown History Lisinopril [Zestril] 5 mg PO QDAY 08/21/19 08/21/19 Unknown History Metoclopramide [Reglan ORAL LIQ] 10 mg PO QID 08/21/19 08/21/19 Unknown History Pantoprazole [Protonix TAB] 40 mg PO BIDAC 08/21/19 08/21/19 Unknown History hydrALAZINE [Apresoline] 25 mg PO Q8HR 08/21/19 08/21/19 Unknown History Active Medications: Generic Name Dose Route Start Last Admin Trade Name Freq PRN Reason Stop Dose Admin Albuterol 2.5 mg 08/22/19 00:01 Proventil IH Q4HRT PRN Shortness Of Breath Epoetin Wale 20,000 unit 09/02/19 15:00 09/02/19 14:40 Procrit IV 20,000 unit BRENDAN PRN Administration hemodialysis Hydralazine HCl 20 mg 08/22/19 12:29 09/02/19 14:51 Apresoline IV 20 mg Q4H PRN Administration SBP>160 or DBP>110 Hydromorphone HCl 0.5 mg 08/25/19 07:17 Dilaudid IV Q3H PRN Pain , Severe (7-10) Sodium Chloride 100 mls @ 999 mls/hr 09/02/19 12:47 Nacl 0.9% IV BRENDAN PRN Hypotension Insulin Glargine 10 units 08/31/19 10:00 09/03/19 09:31 Lantus SUB-Q 10 units QAM KESHIA Administration Insulin Human Lispro 0 unit 08/22/19 22:00 09/03/19 08:54 Humalog SUB-Q 3 unit ACHS KESHIA Administration Protocol Losartan Potassium 100 mg 08/25/19 10:00 09/03/19 09:01 Cozaar PO 100 mg QDAY KESHIA Administration Metoclopramide HCl 5 mg 08/22/19 00:26 08/23/19 11:15 Reglan IV 5 mg Q6H PRN Administration Nausea And Vomiting Metoprolol Tartrate 50 mg 08/30/19 14:00 09/03/19 08:55 Lopressor PO 50 mg TID KESHIA Administration Ondansetron HCl 4 mg 08/21/19 23:10 08/23/19 17:15 Zofran IV 4 mg Q6H PRN Administration Nausea And Vomiting Oxycodone/Acetaminophen 1 tab 08/24/19 20:39 08/27/19 20:43 Percocet 5/325 PO 1 tab Q6H PRN Administration Pain, Moderate (4-6) Pantoprazole Sodium 40 mg 08/23/19 11:00 09/03/19 09:03 Protonix PO 40 mg QDAY KESHIA Administration
[2019-09-03] MEDS: hydrALAZINE 20 MG/1 ML INJ IV PRN (18:23)
[2019-09-03] MEDS: oxyCODONE /ACETAMINOPHEN 5-325MG TAB PO PRN (22:13)
[2019-09-04 05:41] LABS: Basophils # (Auto) 0.1 K/mm3 (0.0-0.1); Basophils % (Auto) 1.5 % (0.0-1.8); Eosinophils # (Auto) 0.2 K/mm3 (0.0-0.4); Eosinophils % (Auto) 2.5 % (0.0-4.3); Hematocrit 24.9 % (35.5-45.6); Lymphocytes # (Auto) 2.9 K/mm3 (1.2-5.4); Lymphocytes % (Auto) 36.5 % (13.4-35.0); Mean Corpuscular HGB Conc 32 % (32-34); Mean Corpuscular Volume 86 fl (84-94); Monocytes # (Auto) 0.9 K/mm3 (0.0-0.8); Monocytes % (Auto) 11.3 % (0.0-7.3); Platelet Count 326 K/mm3 (140-440); Red Cell Distribution Width 14.8 % (13.2-15.2)
[2019-09-04 06:09] LABS: Calcium 8.4 mg/dL (8.4-10.2)
[2019-09-04] MEDS: hydrALAZINE 20 MG/1 ML INJ IV PRN (06:16)
[2019-09-04] MEDS: INSULIN LISPRO 100 UNIT/ML SUB-Q SCH ×4 (07:30→23:41)
[2019-09-04] MEDS: INSULIN GLARGINE 100 UNITS/ML SUB-Q SCH (08:00)
[2019-09-04] MEDS: METOPROLOL TARTRATE 50 MG TAB PO SCH ×3 (08:35→20:48)
[2019-09-04] MEDS ORDERED: SODIUM CHLORIDE*PRIMING MACHINE ONLY FOR DIALYSIS MC ONE (12:05)
[2019-09-04] MEDS: EPOETIN ALFA 20,000 UNIT/1 ML INJ IV PRN (12:36)
--- NOTE | 2019-09-04 15:21 | Progress Note ---
Assessment and Plan Assessment and plan: Patient is 33-year-old -[place] male presents to the emergency department via EMS from home with complaint of abdominal pain, nausea, vomiting and vomiting of blood that has been going on for 3 days prior to presentation. The patient does have a history of ulcerative esophagitis, gastroparesis, CKD stage 5 not on without hemodialysis, diabetes, hypertension. He does not have a primary care physician or manager change. He was seen and evaluated in ED and admitted. he was evaluated by Nephrology and GI Physician. Conservative management was recommended by GI Physician since he has had EGD X 2 this year. Nephrology initiated hemodialysis , stable for discharge awaiting outpatient HD placement --ESRD: Started on hemodilysis HD per schedule MWF Awaiting outpatient HD placement --Metabolic acidosis- Resolved; HD per schedule --Upper GI bleed; resolved Evaluated by GI , stable No indication for EGD op follow-up --Gastroparesis; Resolved, tolerating PO --IDDM (insulin dependent diabetes mellitus) Accu checks Qac AND Lantus, A1c 5.5 --Hypertension; moderate control Optimize BP meds --History of bronchial Asthma- stable Albuterol MDI qid prn --Anemia due to acute blood loss: from GI bleed and ESRD s/p 1 Unit PRBC H&H improved , nonicteric --Hypernatremia-RESOLVED --Severe Malnutrition/hypoalbuminemia supportive care supportive care , Dietitian consult --DVT prophylaxis; SCD's No pharmacologic anticoagulation In view of GI bleeding and anemia Awaiting outpatient HD placement Plan of care is reviewed with the patient and his nurse And also case management Patient is medically stable for discharge History Interval history: Patient seen and examined medical records reviewed no new complaints vital signs noted Awaiting outpatient HD scheduleding Hospitalist Physical - Constitutional Vitals: Temp Pulse Resp BP Pulse Ox 98.6 F 83 18 165/89 100 09/04/19 13:15 09/04/19 13:15 09/04/19 13:15 09/04/19 13:15 09/04/19 11:00 General appearance: Present: no acute distress, well-nourished - EENT Eyes: Present: PERRL, EOM intact - Neck Neck: Present: supple, normal ROM - Respiratory Respiratory effort: normal Respiratory: bilateral: diminished, negative: rales, rhonchi, wheezing - Cardiovascular Rhythm: regular Heart Sounds: Present: S1 & S2 - Extremities Extremities: no ischemia, No edema - Abdominal General gastrointestinal: soft, non-tender, non-distended, normal bowel sounds - Integumentary Integumentary: Present: clear, warm - Psychiatric Psychiatric: appropriate mood/affect, cooperative - Neurologic Neurologic: CNII-XII intact, moves all extremities Results - Labs CBC & Chem 7: 09/04/19 05:28 09/04/19 05:28 Labs: Laboratory Last Values WBC 8.0 K/mm3 (4.5-11.0) 09/04/19 05:28 RBC 2.90 M/mm3 (3.65-5.03) L 09/04/19 05:28 Hgb 8.0 gm/dl (11.8-15.2) L 09/04/19 05:28 Hct 24.9 % (35.5-45.6) L 09/04/19 05:28 MCV 86 fl (84-94) 09/04/19 05:28 MCH 28 pg (28-32) 09/04/19 05:28 MCHC 32 % (32-34) 09/04/19 05:28 RDW 14.8 % (13.2-15.2) 09/04/19 05:28 Plt Count 326 K/mm3 (140-440) 09/04/19 05:28 Lymph % (Auto) 36.5 % (13.4-35.0) H 09/04/19 05:28 [place] % (Auto) 11.3 % (0.0-7.3) H 09/04/19 05:28 Eos % (Auto) 2.5 % (0.0-4.3) 09/04/19 05:28 Baso % (Auto) 1.5 % (0.0-1.8) 09/04/19 05:28 Lymph # 2.9 K/mm3 (1.2-5.4) 09/04/19 05:28 [place] # 0.9 K/mm3 (0.0-0.8) H 09/04/19 05:28 Eos # 0.2 K/mm3 (0.0-0.4) 09/04/19 05:28 Baso # 0.1 K/mm3 (0.0-0.1) 09/04/19 05:28 Seg Neutrophils % 48.2 % (40.0-70.0) 09/04/19 05:28 Seg Neutrophils # 3.9 K/mm3 (1.8-7.7) 09/04/19 05:28 Percent Retic 3.77 % (0.78-2.58) H 08/30/19 14:30 PT 14.1 Sec. (12.2-14.9) 08/21/19 10: INR 1.12 (0.87-1.13) 08/21/19 10:20 APTT 34.3 Sec. (24.2-36.6) 08/21/19 10:20 Sodium 142 mmol/L (137-145) 09/04/19 05:28 Potassium 3.9 mmol/L (3.6-5.0) 09/04/19 05:28 Chloride 104.4 mmol/L (98-107) 09/04/19 05:28 Carbon Dioxide 28 mmol/L (22-30) 09/04/19 05:28 Anion Gap 14 mmol/L 09/04/19 05:28 BUN 24 mg/dL (9-20) H 09/04/19 05:28 Creatinine 6.4 mg/dL (0.8-1.5) H 09/04/19 05:28 Estimated GFR 12 ml/min 09/04/19 05:28 BUN/Creatinine Ratio 4 % 09/04/19 05:28 Glucose 80 mg/dL (75-100) 09/04/19 05:28 POC Glucose 86 (70-105) 09/04/19 07:34 Hemoglobin A1c 5.5 % (4-6) 08/27/19 08:30 Calcium 8.4 mg/dL (8.4-10.2) 09/04/19 05:28 Phosphorus 5.70 mg/dL (2.5-4.5) H 08/23/19 08:55 Magnesium 1.80 mg/dL (1.7-2.3) 08/22/19 14:12 Iron 21 ug/dL (49-181) L 08/30/19 14:30 TIBC 178 mcg/dL (250-450) L 08/30/19 14:30 % Saturation 30.38 % 08/23/19 08:55 Transferrin 138 mg/dl (180-329) L 08/23/19 08:55 Ferritin 211.5 ng/mL (13.0-400.0) 08/24/19 03:01 Total Bilirubin 0.30 mg/dL (0.1-1.2) 08/21/19 10:29 AST 16 units/L (5-40) 08/21/19 10:29 ALT 9 units/L (7-56) 08/21/19 10:29 Alkaline Phosphatase 57 units/L (35-129) 08/21/19 10:29 Total Protein 6.0 g/dL (6.3-8.2) L 08/21/19 10:29 Albumin 2.5 g/dL (3.9-5) L 08/21/19 10:29 Albumin/Globulin Ratio 0.7 % 08/21/19 10:29 Vitamin B12 771.7 pg/mL (211-911) 08/30/19 14:30 Folate 5.52 ng/mL (7.3-26.0) L 08/30/19 14:30 PTH Intact 63.81 pg/mL (15-65) 08/31/19 06:30 Urine Color Yellow (Yellow) 08/23/19 11:43 Urine Turbidity Clear (Clear) 08/23/19 11:43 Urine pH 6.0 (5.0-7.0) 08/23/19 11:43 Ur Specific [place] 1.016 (1.003-1.030) 08/23/19 11:43 Urine Protein >500 mg/dL (Negative) 08/23/19 11:43 Urine Glucose (UA) >=500 mg/dL (Negative) 08/23/19 11:43 Urine Ketones Neg mg/dL (Negative) 08/23/19 11:43 Urine Blood Sm (Negative) 08/23/19 11:43 Urine Nitrite Neg (Negative) 08/23/19 11:43 Urine Bilirubin Neg (Negative) 08/23/19 11:43 Urine Urobilinogen < 2.0 mg/dL (<2.0) 08/23/19 11:43 Ur Leukocyte Esterase Neg (Negative) 08/23/19 11:43 Urine WBC (Auto) 5.0 /HPF (0.0-6.0) 08/23/19 11:43 Urine RBC (Auto) 1.0 /HPF (0.0-6.0) 08/23/19 11:43 U Epithel Cells (Auto) < 1.0 /HPF (0-13.0) 08/23/19 11:43 Urine Bacteria (Auto) 1+ /HPF (Negative) 08/23/19 11:43 Hyaline Casts 6 /LPF 08/23/19 11:43 Urine Mucus Few /HPF 08/23/19 11:43 Urine Eosinophils None seen (None Seen) 08/23/19 11:43 Urine Total Volume 515 ml 08/24/19 15:16 Urine Creatinine 56.0 mg/dL (0.1-20.0) H 08/24/19 15:16 Ur Creatinine 24 Hour 1.7 (0.8-2.8) 08/22/19 08:36 Height (in) 75.0 inches 08/24/19 15:16 Weight (lb) 206.0 lbs 08/24/19 15:16 Creatinine Clearance 1 08/24/19 15:16 Hepatitis A IgM Ab Non-reactive (NonReactive) 08/24/19 15:01 Hep Bs Antigen Non-reactive (Negative) 08/24/19 15:01 Hep B Core IgM Ab Non-reactive (NonReactive) 08/24/19 15:01 Hepatitis C Antibody Non-reactive (NonReactive) 08/24/19 15:01 Blood Type O POSITIVE 08/21/19 10:20 Antibody Screen Negative 08/21/19 10:20 Crossmatch See Detail 08/21/19 10:20 Active Medications - Current Medications Current Medications: Generic Name Dose Route Start Last Admin Trade Name Jonathanq PRN Reason Stop Dose Admin Albuterol 2.5 mg 08/22/19 00:01 Proventil IH Q4HRT PRN Shortness Of Breath Epoetin Wale 20,000 unit 09/02/19 15:00 09/04/19 12:36 Procrit IV 20,000 unit BRENDAN PRN Administration hemodialysis Hydralazine HCl 20 mg 08/22/19 12:29 09/04/19 06:16 Apresoline IV 20 mg Q4H PRN Administration SBP>160 or DBP>110 Sodium Chloride 100 mls @ 999 mls/hr 09/02/19 12:47 Nacl 0.9% IV BRENDAN PRN Hypotension Insulin Glargine 13 units 09/03/19 16:30 09/04/19 08:00 Lantus SUB-Q 13 units QAMDIAB KESHIA Administration Insulin Human Lispro 0 unit 08/22/19 22:00 09/04/19 12:44 Humalog SUB-Q Not Given ACHS [facility] Protocol Losartan Potassium 100 mg 08/25/19 10:00 09/03/19 09:01 Cozaar PO 100 mg QDAY KESHIA Administration Metoprolol Tartrate 50 mg 08/30/19 14:00 09/04/19 08:35 Lopressor PO 50 mg TID KESHIA Administration Ondansetron HCl 4 mg 08/21/19 23:10 08/23/19 17:15 Zofran IV 4 mg Q6H PRN Administration Nausea And Vomiting Oxycodone/Acetaminophen 1 tab 08/24/19 20:39 09/03/19 22:13 Percocet 5/325 PO 1 tab Q6H PRN Administration Pain, Moderate (4-6) Pantoprazole Sodium 40 mg 08/23/19 11:00 09/03/19 09:03 Protonix PO 40 mg QDAY [facility] Administration Nutrition/Malnutrition Assess - Dietary Evaluation Nutrition/Malnutrition Findings: Nutrition Notes Start: 08/22/19 12:39 Freq: Status: Active Protocol: Document 08/25/19 10:31 CC (Rec: 08/25/19 13:40 CC [id number]) Co-Sign 08/25/19 10:31 Nutrition Notes Initial or Follow up Reassessment Current Diagnosis CKD(stage I-IV),Diabetes, Hypertension Other Pertinent Diagnosis Upper GIB, Anemia, Gastroparesis Current Diet Renal Labs/Tests Na 133, GFR 9, Creat 8.4, BUN 49, Glu 258 Pertinent Medications Reviewed Height 6 ft 3 in Weight 85.4 kg Usual Body Weight 88.6 kg [place] Body Weight (kg) 89.09 BMI 23.5 Intake Prior to Admission Good Weight change and time frame Pt continues to deny recent wt loss. Pt denied holding fluid Weight Status Appropriate Subjective/Other Information F/U for diet advancement, PO tolerance Advanced to renal diet per pt tolerating well. Per ADL note pt consumed 75% of dinner . Nurse stated pt has been asking for more food and requested double portions. Load Manager observed 100% of lunch consumed. Pt has no visible signs of muscle or fat wasting Percent of energy/protein needs met: 85%/100% Burn Absent Trauma Absent Current % PO Good (75-100%) Minimum of two criteria No physical signs of malnutrition #2 Nutrition Diagnosis Food and nutrition-related knowledge deficit Etiology Pt is to begin HD once placement is found As Evidenced by Signs and Symptoms Pt report of no knowledge of renal diet #1 Nutrition Diagnosis Altered GI function As Evidenced by Signs and Symptoms Pt tolerating renal diet Diagnosis Progress(for reassessment Resolved documentation) Is patient on ventilator? No Is Patient Ambulatory and/or Out of Bed Yes REE-(Josephine-St. Jeor-ambulatory/OOB) [ [id number] [id number]] Calculation Used for Recommendations Josephine-St Jeor Additional Notes Pro needs 0.8-0.9g/k-80g/ day Fluid needs 1ml/kcal Nutrition Intervention Change Diet Order: Continue renal diet Teaching Recipient Patient Learning Readiness Good Teaching Methods Discussion,Handout Response to Teaching Verbalize understanding Education Handouts Provided CKD Stage 5 Tips for People on Dialysis Barriers to Learning Financial RD phone number provided Yes Patient aware of follow up options Yes Anticipated Discharge Needs: Renal/CHO-controlled diet Revisit per MD consult or patient Sign Off request:
--- NOTE | 2019-09-04 16:08 | Consultation ---
Past History Past Medical History: diabetes, hypertension, renal failure Past Surgical History: No surgical history Social history: no significant social history Family history: no significant family history Medications and Allergies Allergies Allergy/AdvReac Type Severity Reaction Status Date / Time No Known Allergies Allergy Verified 11/21/18 17:51 Home Medications Medication Instructions Recorded Confirmed Last Taken Type ALBUTEROL Inhaler (OR & NICU) 1 puff IH Q4H PRN 08/21/19 08/21/19 Unknown History [Proair] Carvedilol [Coreg] 25 mg PO Q12H 08/21/19 08/21/19 Unknown History Furosemide [Lasix TAB] 40 mg PO BID 08/21/19 08/21/19 Unknown History Lisinopril [Zestril] 5 mg PO QDAY 08/21/19 08/21/19 Unknown History Metoclopramide [Reglan ORAL LIQ] 10 mg PO QID 08/21/19 08/21/19 Unknown History Pantoprazole [Protonix TAB] 40 mg PO BIDAC 08/21/19 08/21/19 Unknown History hydrALAZINE [Apresoline] 25 mg PO Q8HR 08/21/19 08/21/19 Unknown History Active Meds: Active Medications Albuterol (Proventil) 2.5 mg IH Q4HRT PRN PRN Reason: Shortness Of Breath Epoetin [place] (Procrit) 20,000 unit IV BRENDAN PRN PRN Reason: hemodialysis Last Admin: 09/04/19 12:36 Dose: 20,000 unit Documented by: Hydralazine HCl (Apresoline) 20 mg IV Q4H PRN PRN Reason: SBP>160 or DBP>110 Last Admin: 09/04/19 06:16 Dose: 20 mg Documented by: Sodium Chloride (Nacl 0.9%) 100 mls @ 999 mls/hr IV BRENDAN PRN PRN Reason: Hypotension Insulin Glargine (Lantus) 13 units SUB-Q QAMDIAB [facility] Last Admin: 09/04/19 08:00 Dose: 13 units Documented by: Insulin Human Lispro (Humalog) 0 unit SUB-Q ACHS [facility]; Protocol Last Admin: 09/04/19 12:44 Dose: Not Given Documented by: Losartan Potassium (Cozaar) 100 mg PO QDAY [facility] Last Admin: 09/03/19 09:01 Dose: 100 mg Documented by: Metoprolol Tartrate (Lopressor) 50 mg PO TID [facility] Last Admin: 09/04/19 08:35 Dose: 50 mg Documented by: Ondansetron HCl (Zofran) 4 mg IV Q6H PRN PRN Reason: Nausea And Vomiting Last Admin: 08/23/19 17:15 Dose: 4 mg Documented by: Oxycodone/Acetaminophen (Percocet 5/325) 1 tab PO Q6H PRN PRN Reason: Pain, Moderate (4-6) Last Admin: 09/03/19 22:13 Dose: 1 tab Documented by: Pantoprazole Sodium (Protonix) 40 mg PO QDAY [facility] Last Admin: 09/03/19 09:03 Dose: 40 mg Documented by: Exam - Vital Signs Vital signs: Vital Signs Temp Pulse Resp BP Pulse Ox 98.9 F 114 H 20 222/129 100 08/21/19 09:52 08/21/19 09:52 08/21/19 09:52 08/21/19 09:52 08/21/19 09:52 Results - Lab Results 09/04/19 05:28 09/04/19 05:28 Most recent lab results Calcium 8.4 mg/dL (8.4-10.2) 09/04/19 05:28 Phosphorus 5.70 mg/dL (2.5-4.5) H 08/23/19 08:55 Magnesium 1.80 mg/dL (1.7-2.3) 08/22/19 14:12 Urine Creatinine 56.0 mg/dL (0.1-20.0) H 08/24/19 15:16 Assessment and Plan # Acute on chronic renal insufficiency: acute on chronic renal disease now with likely ESRD, started on hemodialysis via [facility] CVC - continue hemodialysis MWF while inpatient - awaiting outpatient placement, appreciate social work assistance # Anemia: likely anemia secondary to chronic kidney disease. Last hemoglobin hb: 7.5g/dl [place] [id number] monitor CBC. (3) Uncontrolled diabetes mellitus Current Visit: No Status: Acute Qualifiers: Diabetes mellitus type: type 2 Glycemic state: with hyperglycemia Qualified Code(s): E11.65 - Type 2 diabetes mellitus with hyperglycemia Plan to address problem: DM TYPE ii :Uncontrolled. Ensure medications monitor fingersticks. (4) HTN (hypertension) Current Visit: No Status: Chronic Plan to address problem: HTN: controlled. continue current medications.
--- NOTE | 2019-09-04 16:11 | Progress Note ---
Assessment and Plan # Acute on chronic renal insufficiency: acute on chronic renal disease now with likely ESRD, started on hemodialysis via [facility] CVC - continue hemodialysis MWF while inpatient - awaiting outpatient placement, appreciate social work assistance - avoid nephrotoxins - renally dose all medications # Anemia: likely anemia secondary to chronic kidney disease. Last hemoglobin 8.0 - will continue ESAs, [place] epogen to [id number] # Uncontrolled diabetes mellitus - care per primary team # HTN (hypertension): BP has been controlled. - continue current medications. Subjective Date of service: 09/04/19 Principal diagnosis: ESRD, Interval history: No acute events noted overnight. Tolerated hemodialysis well this morning. Denies any cramping, dizziness with HD. No dyspnea, chest pain. Objective - Exam Narrative Exam: General appearance: well-developed, well-nourished EENT: ATNC, PERRL, mucous membranes moist Neck: no JVD Respiratory: Present: Clear to Auscultation, Decreased Breath Sounds Cardiology: S1S2 Gastrointestinal: normal, normoactive bowel sounds Integumentary: no rash Neurologic: alert and oriented x3, CN 3-12 intact Psychiatric: mood/affect appropriate - Vital Signs Vital signs: Vital Signs - 12hr 09/04/19 09/04/19 09/04/19 05:23 06:16 08:35 Temperature 98.1 F Pulse Rate 77 91 H Pulse Rate [ Left Radial] Respiratory 20 Rate Blood Pressure 193/107 193/107 160/100 Blood Pressure [Left] O2 Sat by Pulse 99 Oximetry 09/04/19 09/04/19 09/04/19 09:09 09:25 09:30 Temperature 98.0 F 98.4 F Pulse Rate 94 H 86 86 Pulse Rate [ Left Radial] Respiratory 18 16 Rate Blood Pressure 190/105 190/105 Blood Pressure 167/100 [Left] O2 Sat by Pulse 100 Oximetry 09/04/19 09/04/19 09/04/19 09:45 10:00 10:15 Temperature Pulse Rate 87 82 83 Pulse Rate [ Left Radial] Respiratory Rate Blood Pressure 173/95 170/90 148/82 Blood Pressure [Left] O2 Sat by Pulse Oximetry 09/04/19 09/04/19 09/04/19 10:30 10:45 11:00 Temperature Pulse Rate 89 84 91 H Pulse Rate [ 94 H Left Radial] Respiratory Rate Blood Pressure 151/80 157/83 160/80 Blood Pressure [Left] O2 Sat by Pulse 100 Oximetry 09/04/19 09/04/19 09/04/19 11:15 11:30 11:45 Temperature Pulse Rate 83 81 81 Pulse Rate [ Left Radial] Respiratory Rate Blood Pressure 154/82 145/72 153/78 Blood Pressure [Left] O2 Sat by Pulse Oximetry 09/04/19 09/04/19 09/04/19 12:00 12:15 12:30 Temperature Pulse Rate 84 85 85 Pulse Rate [ Left Radial] Respiratory Rate Blood Pressure 158/89 145/82 154/85 Blood Pressure [Left] O2 Sat by Pulse Oximetry 09/04/19 09/04/19 09/04/19 12:45 13:00 13:15 Temperature 98.6 F Pulse Rate 84 83 83 Pulse Rate [ Left Radial] Respiratory 18 Rate Blood Pressure 157/85 166/90 165/89 Blood Pressure [Left] O2 Sat by Pulse Oximetry - Lab 09/04/19 05:28 09/04/19 05:28 Most recent lab results Calcium 8.4 mg/dL (8.4-10.2) 09/04/19 05:28 Phosphorus 5.70 mg/dL (2.5-4.5) H 08/23/19 08:55 Magnesium 1.80 mg/dL (1.7-2.3) 08/22/19 14:12 Urine Creatinine 56.0 mg/dL (0.1-20.0) H 08/24/19 15:16 Medications & Allergies - Medications Allergies/Adverse Reactions: Allergies No Known Allergies Allergy (Verified 11/21/18 17:51) Home Medications: Home Medications Medication Instructions Recorded Confirmed Last Taken Type ALBUTEROL Inhaler (OR & NICU) 1 puff IH Q4H PRN 08/21/19 08/21/19 Unknown History [Proair] Carvedilol [Coreg] 25 mg PO Q12H 08/21/19 08/21/19 Unknown History Furosemide [Lasix TAB] 40 mg PO BID 08/21/19 08/21/19 Unknown History Lisinopril [Zestril] 5 mg PO QDAY 08/21/19 08/21/19 Unknown History Metoclopramide [Reglan ORAL LIQ] 10 mg PO QID 08/21/19 08/21/19 Unknown History Pantoprazole [Protonix TAB] 40 mg PO BIDAC 08/21/19 08/21/19 Unknown History hydrALAZINE [Apresoline] 25 mg PO Q8HR 08/21/19 08/21/19 Unknown History Active Medications: Generic Name Dose Route Start Last Admin Trade Name Freq PRN Reason Stop Dose Admin Albuterol 2.5 mg 08/22/19 00:01 Proventil IH Q4HRT PRN Shortness Of Breath Epoetin [place]ale 20,000 unit 09/02/19 15:00 09/04/19 12:36 Procrit IV 20,000 unit BRENDAN PRN Administration hemodialysis Hydralazine HCl 20 mg 08/22/19 12:29 09/04/19 06:16 Apresoline IV 20 mg Q4H PRN Administration SBP>160 or DBP>110 Sodium Chloride 100 mls @ 999 mls/hr 09/02/19 12:47 Nacl 0.9% IV BRENDAN PRN Hypotension Insulin Glargine 13 units 09/03/19 16:30 09/04/19 08:00 Lantus SUB-Q 13 units QAMDIAB KESHIA Administration Insulin Human Lispro 0 unit 08/22/19 22:00 09/04/19 12:44 Humalog SUB-Q Not Given ACHS [facility] Protocol Losartan Potassium 100 mg 08/25/19 10:00 09/03/19 09:01 Cozaar PO 100 mg QDAY KESHIA Administration Metoprolol Tartrate 50 mg 08/30/19 14:00 09/04/19 08:35 Lopressor PO 50 mg TID KESHIA Administration Ondansetron HCl 4 mg 08/21/19 23:10 08/23/19 17:15 Zofran IV 4 mg Q6H PRN Administration Nausea And Vomiting Oxycodone/Acetaminophen 1 tab 08/24/19 20:39 09/03/19 22:13 Percocet 5/325 PO 1 tab Q6H PRN Administration Pain, Moderate (4-6) Pantoprazole Sodium 40 mg 08/23/19 11:00 09/03/19 09:03 Protonix PO 40 mg QDAY KESHIA Administration
[2019-09-04] MEDS: LOSARTAN 50 MG TAB PO SCH (17:57)
[2019-09-04] MEDS: PANTOPRAZOLE 40 MG TAB PO SCH (17:58)
--- NOTE | 2019-09-05 09:13 | Progress Note ---
Assessment and Plan Assessment and plan: Patient is 33-year-old -[place] male presents to the emergency department via EMS from home with complaint of abdominal pain, nausea, vomiting and vomiting of blood that has been going on for 3 days prior to presentation. The patient does have a history of ulcerative esophagitis, gastroparesis, CKD stage 5 not on without hemodialysis, diabetes, hypertension. He does not have a primary care physician or internal medicine veterinary technician. He was seen and evaluated in ED and admitted. he was evaluated by Nephrology and GI Physician. Conservative management was recommended by GI Physician since he has had EGD X 2 this year. Nephrology initiated hemodialysis , stable for discharge awaiting outpatient HD placement --ESRD: hemodilysis HD per schedule MWF Awaiting outpatient HD placement --Metabolic acidosis- Resolved; --Upper GI bleed; resolved Evaluated by GI , stable No indication for EGD op follow-up --Gastroparesis; Resolved, tolerating PO --IDDM (insulin dependent diabetes mellitus) Accu checks Qac AND Lantus, A1c 5.5 --Hypertension; moderate control Optimize BP meds --History of bronchial Asthma- stable Albuterol MDI qid prn --Anemia due to acute blood loss: from GI bleed and ESRD s/p 1 Unit PRBC H&H improved. --Hypernatremia-RESOLVED --Severe Malnutrition/hypoalbuminemia supportive care supportive care , Dietitian consult --DVT prophylaxis; SCD's No pharmacologic anticoagulation In view of GI bleeding and anemia Awaiting outpatient HD placement Plan of care is reviewed with the patient and his nurse And also case management Patient is medically stable for discharge History Interval history: No new complaints Vital signs stable Awaiting for outpatient HD scheduling Hospitalist Physical - Constitutional Vitals: Temp Pulse Resp BP Pulse Ox 98.3 F 76 20 179/85 100 09/05/19 05:32 09/05/19 05:32 09/05/19 05:32 09/05/19 05:32 09/05/19 05:32 General appearance: Present: no acute distress, well-nourished - EENT Eyes: Present: PERRL, EOM intact - Neck Neck: Present: supple, normal ROM - Respiratory Respiratory effort: normal Respiratory: bilateral: diminished, negative: rales, rhonchi, wheezing - Cardiovascular Rhythm: regular Heart Sounds: Present: S1 & S2 - Extremities Extremities: no ischemia, No edema - Abdominal General gastrointestinal: soft, non-tender, non-distended, normal bowel sounds - Integumentary Integumentary: Present: clear, warm - Psychiatric Psychiatric: appropriate mood/affect, cooperative - Neurologic Neurologic: CNII-XII intact, moves all extremities Results - Labs CBC & Chem 7: 09/04/19 05:28 09/04/19 05:28 Labs: Laboratory Last Values WBC 8.0 K/mm3 (4.5-11.0) 09/04/19 05:28 RBC 2.90 M/mm3 (3.65-5.03) L 09/04/19 05:28 Hgb 8.0 gm/dl (11.8-15.2) L 09/04/19 05:28 Hct 24.9 % (35.5-45.6) L 09/04/19 05:28 MCV 86 fl (84-94) 09/04/19 05:28 MCH 28 pg (28-32) 09/04/19 05:28 MCHC 32 % (32-34) 09/04/19 05:28 RDW 14.8 % (13.2-15.2) 09/04/19 05:28 Plt Count 326 K/mm3 (140-440) 09/04/19 05:28 Lymph % (Auto) 36.5 % (13.4-35.0) H 09/04/19 05:28 [place] % (Auto) 11.3 % (0.0-7.3) H 09/04/19 05:28 Eos % (Auto) 2.5 % (0.0-4.3) 09/04/19 05:28 Baso % (Auto) 1.5 % (0.0-1.8) 09/04/19 05:28 Lymph # 2.9 K/mm3 (1.2-5.4) 09/04/19 05:28 [place] # 0.9 K/mm3 (0.0-0.8) H 09/04/19 05:28 Eos # 0.2 K/mm3 (0.0-0.4) 09/04/19 05:28 Baso # 0.1 K/mm3 (0.0-0.1) 09/04/19 05:28 Seg Neutrophils % 48.2 % (40.0-70.0) 09/04/19 05:28 Seg Neutrophils # 3.9 K/mm3 (1.8-7.7) 09/04/19 05:28 Percent Retic 3.77 % (0.78-2.58) H 08/30/19 14:30 PT 14.1 Sec. (12.2-14.9) 08/21/19 10:20 INR 1.12 (0.87-1.13) 08/21/19 10:20 APTT 34.3 Sec. (24.2-36.6) 08/21/19 10:20 Sodium 142 mmol/L (137-145) 09/04/19 05:28 Potassium 3.9 mmol/L (3.6-5.0) 09/04/19 05:28 Chloride 104.4 mmol/L (98-107) 09/04/19 05:28 Carbon Dioxide 28 mmol/L (22-30) 09/04/19 05:28 Anion Gap 14 mmol/L 09/04/19 05:28 BUN 24 mg/dL (9-20) H 09/04/19 05:28 Creatinine 6.4 mg/dL (0.8-1.5) H 09/04/19 05:28 Estimated GFR 12 ml/min 09/04/19 05:28 BUN/Creatinine Ratio 4 % 09/04/19 05:28 Glucose 80 mg/dL (75-100) 09/04/19 05:28 POC Glucose 117 (70-105) H 09/05/19 08:17 Hemoglobin A1c 5.5 % (4-6) 08/27/19 08:30 Calcium 8.4 mg/dL (8.4-10.2) 09/04/19 05:28 Phosphorus 5.70 mg/dL (2.5-4.5) H 08/23/19 08:55 Magnesium 1.80 mg/dL (1.7-2.3) 08/22/19 14:12 Iron 21 ug/dL (49-181) L 08/30/19 14:30 TIBC 178 mcg/dL (250-450) L 08/30/19 14:30 % Saturation 30.38 % 08/23/19 08:55 Transferrin 138 mg/dl (180-329) L 08/23/19 08:55 Ferritin 211.5 ng/mL (13.0-400.0) 08/24/19 03:01 Total Bilirubin 0.30 mg/dL (0.1-1.2) 08/21/19 10:29 AST 16 units/L (5-40) 08/21/19 10:29 ALT 9 units/L (7-56) 08/21/19 10:29 Alkaline Phosphatase 57 units/L (35-129) 08/21/19 10:29 Total Protein 6.0 g/dL (6.3-8.2) L 08/21/19 10:29 Albumin 2.5 g/dL (3.9-5) L 08/21/19 10:29 Albumin/Globulin Ratio 0.7 % 08/21/19 10:29 Vitamin B12 771.7 pg/mL (211-911) 08/30/19 14:30 Folate 5.52 ng/mL (7.3-26.0) L 08/30/19 14:30 PTH Intact 63.81 pg/mL (15-65) 08/31/19 06:30 Urine Color Yellow (Yellow) 08/23/19 11:43 Urine Turbidity Clear (Clear) 08/23/19 11:43 Urine pH 6.0 (5.0-7.0) 08/23/19 11:43 Ur Specific [place] 1.016 (1.003-1.030) 08/23/19 11:43 Urine Protein >500 mg/dL (Negative) 08/23/19 11:43 Urine Glucose (UA) >=500 mg/dL (Negative) 08/23/19 11:43 Urine Ketones Neg mg/dL (Negative) 08/23/19 11:43 Urine Blood Sm (Negative) 08/23/19 11:43 Urine Nitrite Neg (Negative) 08/23/19 11:43 Urine Bilirubin Neg (Negative) 08/23/19 11:43 Urine Urobilinogen < 2.0 mg/dL (<2.0) 08/23/19 11:43 Ur Leukocyte Esterase Neg (Negative) 08/23/19 11:43 Urine WBC (Auto) 5.0 /HPF (0.0-6.0) 08/23/19 11:43 Urine RBC (Auto) 1.0 /HPF (0.0-6.0) 08/23/19 11:43 U Epithel Cells (Auto) < 1.0 /HPF (0-13.0) 08/23/19 11:43 Urine Bacteria (Auto) 1+ /HPF (Negative) 08/23/19 11:43 Hyaline Casts 6 /LPF 08/23/19 11:43 Urine Mucus Few /HPF 08/23/19 11:43 Urine Eosinophils None seen (None Seen) 08/23/19 11:43 Urine Total Volume 515 ml 08/24/19 15:16 Urine Creatinine 56.0 mg/dL (0.1-20.0) H 08/24/19 15:16 Ur Creatinine 24 Hour 1.7 (0.8-2.8) 08/22/19 08:36 Height (in) 75.0 inches 08/24/19 15:16 Weight (lb) 206.0 lbs 08/24/19 15:16 Creatinine Clearance 1 08/24/19 15:16 Hepatitis A IgM Ab Non-reactive (NonReactive) 08/24/19 15:01 Hep Bs Antigen Non-reactive (Negative) 08/24/19 15:01 Hep B Core IgM Ab Non-reactive (NonReactive) 08/24/19 15:01 Hepatitis C Antibody Non-reactive (NonReactive) 08/24/19 15:01 Blood Type O POSITIVE 08/21/19 10:20 Antibody Screen Negative 08/21/19 10:20 Crossmatch See Detail 08/21/19 10:20 Active Medications - Current Medications Current Medications: Generic Name Dose Route Start Last Admin Trade Name Freq PRN Reason Stop Dose Admin Albuterol 2.5 mg 08/22/19 00:01 Proventil IH Q4HRT PRN Shortness Of Breath Epoetin Wale 20,000 unit 09/02/19 15:00 09/04/19 12:36 Procrit IV 20,000 unit BRENDAN PRN Administration hemodialysis Hydralazine HCl 20 mg 08/22/19 12:29 09/04/19 06:16 Apresoline IV 20 mg Q4H PRN Administration SBP>160 or DBP>110 Sodium Chloride 100 mls @ 999 mls/hr 09/02/19 12:47 Nacl 0.9% IV BRENDAN PRN Hypotension Insulin Glargine 13 units 09/03/19 16:30 09/04/19 08:00 Lantus SUB-Q 13 units QAMDIAB KESHIA Administration Insulin Human Lispro 0 unit 08/22/19 22:00 09/04/19 23:41 Humalog SUB-Q 4 unit ACHS KESHIA Administration Protocol Losartan Potassium 100 mg 08/25/19 10:00 09/04/19 17:57 Cozaar PO 100 mg QDAY KESHIA Administration Metoprolol Tartrate 50 mg 08/30/19 14:00 09/04/19 20:48 Lopressor PO 50 mg TID KESHIA Administration Ondansetron HCl 4 mg 08/21/19 23:10 08/23/19 17:15 Zofran IV 4 mg Q6H PRN Administration Nausea And Vomiting Oxycodone/Acetaminophen 1 tab 08/24/19 20:39 09/03/19 22:13 Percocet 5/325 PO 1 tab Q6H PRN Administration Pain, Moderate (4-6) Pantoprazole Sodium 40 mg 08/23/19 11:00 09/04/19 17:58 Protonix PO 40 mg QDAY KESHIA Administration Nutrition/Malnutrition Assess - Dietary Evaluation Nutrition/Malnutrition Findings: Nutrition Notes Start: 08/22/19 12:39 Freq: Status: Active Protocol: Document 08/25/19 10:31 CC (Rec: 08/25/19 13:40 CC [email or web address]) Co-Sign 08/25/19 10:31 Nutrition Notes Initial or Follow up Reassessment Current Diagnosis CKD(stage I-IV),Diabetes, Hypertension Other Pertinent Diagnosis Upper GIB, Anemia, Gastroparesis Current Diet Renal Labs/Tests Na 133, GFR 9, Creat 8.4, BUN 49, Glu 258 Pertinent Medications Reviewed Height 6 ft 3 in Weight 85.4 kg Usual Body Weight 88.6 kg [place] Body Weight (kg) 89.09 BMI 23.5 Intake Prior to Admission Good Weight change and time frame Pt continues to deny recent wt loss. Pt denied holding fluid Weight Status Appropriate Subjective/Other Information F/U for diet advancement, PO tolerance Advanced to renal diet per pt tolerating well. Per ADL note pt consumed 75% of dinner . Nurse stated pt has been asking for more food and requested double portions. Bookbinder Chief observed 100% of lunch consumed. Pt has no visible signs of muscle or fat wasting Percent of energy/protein needs met: 85%/100% Burn Absent Trauma Absent Current % PO Good (75-100%) Minimum of two criteria No physical signs of malnutrition #2 Nutrition Diagnosis Food and nutrition-related knowledge deficit Etiology Pt is to begin HD once placement is found As Evidenced by Signs and Symptoms Pt report of no knowledge of renal diet #1 Nutrition Diagnosis Altered GI function As Evidenced by Signs and Symptoms Pt tolerating renal diet Diagnosis Progress(for reassessment Resolved documentation) Is patient on ventilator? No Is Patient Ambulatory and/or Out of Bed Yes REE-([facility]-ambulatory/OOB) [ 2463.019 [id number]] Calculation Used for Recommendations [facility] Additional Notes Pro needs 0.8-0.9g/k-80g/ day Fluid needs 1ml/kcal Nutrition Intervention Change Diet Order: Continue renal diet Teaching Recipient Patient Learning Readiness Good Teaching Methods Discussion,Handout Response to Teaching Verbalize understanding Education Handouts Provided CKD Stage 5 Tips for People on Dialysis Barriers to Learning Financial RD phone number provided Yes Patient aware of follow up options Yes Anticipated Discharge Needs: Renal/CHO-controlled diet Revisit per MD consult or patient Sign Off request:
[2019-09-05] MEDS: LOSARTAN 50 MG TAB PO SCH (10:15)
[2019-09-05] MEDS: METOPROLOL TARTRATE 50 MG TAB PO SCH ×3 (10:15→21:26)
[2019-09-05] MEDS: INSULIN GLARGINE 100 UNITS/ML SUB-Q SCH (10:20)
[2019-09-05] MEDS: INSULIN LISPRO 100 UNIT/ML SUB-Q SCH ×4 (10:20→22:40)
[2019-09-05] MEDS: PANTOPRAZOLE 40 MG TAB PO SCH (10:24)
--- NOTE | 2019-09-05 18:05 | Progress Note ---
Assessment and Plan # Acute on chronic renal insufficiency: acute on chronic renal disease now with likely ESRD, started on hemodialysis via [facility] CVC - continue hemodialysis MWF while inpatient, next due on 09/07/19 - awaiting outpatient placement, appreciate social work assistance - avoid nephrotoxins - renally dose all medications # Anemia: likely anemia secondary to chronic kidney disease. Last hemoglobin 8.0 - will continue ESAs, currently on epogen to [id number] # Uncontrolled diabetes mellitus - care per primary team # HTN (hypertension): BP has been controlled. - continue current medications. Subjective Date of service: 09/05/19 Principal diagnosis: ESRD, Interval history: No acute events noted overnight. Has not had issues with HD. Denies any aircraft accessories mechanic mping, dizziness with HD. No dyspnea, chest pain. Waiting to hear about outpatient dialysis placement. Objective - Exam Narrative Exam: General appearance: well-developed, well-nourished EENT: ATNC, PERRL, mucous membranes moist Neck: no JVD Respiratory: Present: Clear to Auscultation Cardiology: S1S2 Gastrointestinal: normal, normoactive bowel sounds Integumentary: no rash Neurologic: alert and oriented x3, CN 3-12 intact Psychiatric: mood/affect appropriate - Vital Signs Vital signs: Vital Signs - 12hr 09/05/19 10:15 Blood Pressure 165/91 - Lab 09/04/19 05:28 09/04/19 05:28 Most recent lab results Calcium 8.4 mg/dL (8.4-10.2) 09/04/19 05:28 Phosphorus 5.70 mg/dL (2.5-4.5) H 08/23/19 08:55 Magnesium 1.80 mg/dL (1.7-2.3) 08/22/19 14:12 Urine Creatinine 56.0 mg/dL (0.1-20.0) H 08/24/19 15:16 Medications & Allergies - Medications Allergies/Adverse Reactions: Allergies No Known Allergies Allergy (Verified 11/21/18 17:51) Home Medications: Home Medications Medication Instructions Recorded Confirmed Last Taken Type ALBUTEROL Inhaler (OR & NICU) 1 puff IH Q4H PRN 08/21/19 08/21/19 Unknown History [Proair] Carvedilol [Coreg] 25 mg PO Q12H 08/21/19 08/21/19 Unknown History Furosemide [Lasix TAB] 40 mg PO BID 08/21/19 08/21/19 Unknown History Lisinopril [Zestril] 5 mg PO QDAY 08/21/19 08/21/19 Unknown History Metoclopramide [Reglan ORAL LIQ] 10 mg PO QID 08/21/19 08/21/19 Unknown History Pantoprazole [Protonix TAB] 40 mg PO BIDAC 08/21/19 08/21/19 Unknown History hydrALAZINE [Apresoline] 25 mg PO Q8HR 08/21/19 08/21/19 Unknown History Active Medications: Generic Name Dose Route Start Last Admin Trade Name Freq PRN Reason Stop Dose Admin Albuterol 2.5 mg 08/22/19 00:01 Proventil IH Q4HRT PRN Shortness Of Breath Epoetin Wale 20,000 unit 09/02/19 15:00 09/04/19 12:36 Procrit IV 20,000 unit BRENDAN PRN Administration hemodialysis Hydralazine HCl 20 mg 08/22/19 12:29 09/04/19 06:16 Apresoline IV 20 mg Q4H PRN Administration SBP>160 or DBP>110 Sodium Chloride 100 mls @ 999 mls/hr 09/02/19 12:47 Nacl 0.9% IV BRENDAN PRN Hypotension Insulin Glargine 13 units 09/03/19 16:30 09/05/19 10:20 Lantus SUB-Q 13 units QAMDIAB KESHIA Administration Insulin Human Lispro 0 unit 08/22/19 22:00 09/05/19 17:09 Humalog SUB-Q Not Given [facility] Protocol Losartan Potassium 100 mg 08/25/19 10:00 09/05/19 10:15 Cozaar PO 100 mg QDAY KESHIA Administration Metoprolol Tartrate 50 mg 08/30/19 14:00 09/05/19 13:25 Lopressor PO 50 mg TID KESHIA Administration Ondansetron HCl 4 mg 08/21/19 23:10 08/23/19 17:15 Zofran IV 4 mg Q6H PRN Administration Nausea And Vomiting Oxycodone/Acetaminophen 1 tab 08/24/19 20:39 09/03/19 22:13 Percocet 5/325 PO 1 tab Q6H PRN Administration Pain, Moderate (4-6) Pantoprazole Sodium 40 mg 08/23/19 11:00 09/05/19 10:24 Protonix PO 40 mg QDAY KESHIA Administration
[2019-09-06] MEDS: hydrALAZINE 20 MG/1 ML INJ IV PRN (06:28)
[2019-09-06] MEDS: INSULIN LISPRO 100 UNIT/ML SUB-Q SCH ×4 (08:14→22:37)
[2019-09-06] MEDS: LOSARTAN 50 MG TAB PO SCH (09:35)
[2019-09-06] MEDS: PANTOPRAZOLE 40 MG TAB PO SCH (09:35)
[2019-09-06] MEDS: METOPROLOL TARTRATE 50 MG TAB PO SCH ×3 (09:35→20:03)
[2019-09-06] MEDS: INSULIN GLARGINE 100 UNITS/ML SUB-Q SCH (09:36)
--- NOTE | 2019-09-06 09:38 | Progress Note ---
Assessment and Plan Assessment and plan: Patient is 33-year-old -[place] male presents to the emergency department via EMS from home with complaint of abdominal pain, nausea, vomiting and vomiting of blood that has been going on for 3 days prior to presentation. The patient does have a history of ulcerative esophagitis, gastroparesis, CKD stage 5 not on without hemodialysis, diabetes, hypertension. 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 He was seen and evaluated in ED and admitted. he was evaluated by Nephrology and GI Physician. Conservative management was recommended by GI Physician since he has had EGD X 2 this year. Nephrology initiated hemodialysis , stable for discharge awaiting outpatient HD placement --ESRD: Started on hemodilysis HD per schedule MWF Awaiting outpatient HD placement --Metabolic acidosis- Resolved; HD per schedule --Upper GI bleed; resolved Evaluated by GI , stable No indication for EGD op follow-up --Gastroparesis; Resolved, tolerating PO --IDDM (insulin dependent diabetes mellitus) Accu checks Qac AND Lantus, A1c 5.5 --Hypertension; moderate control Optimize BP meds --History of bronchial Asthma- stable Albuterol MDI qid prn --Anemia due to acute blood loss: from GI bleed and ESRD s/p 1 Unit PRBC H&H improved , nonicteric --Hypernatremia-RESOLVED --Severe Malnutrition/hypoalbuminemia supportive care supportive care , Dietitian consult --DVT prophylaxis; SCD's No pharmacologic anticoagulation In view of GI bleeding and anemia Awaiting outpatient HD placement Plan of care is reviewed with the patient and his nurse And also case management Patient is medically stable for discharge History Interval history: Patient comfortable, no new complaints Vital signs stable Hospitalist Physical - Constitutional Vitals: Temp Pulse Resp BP Pulse Ox 98.1 F 71 24 162/96 100 09/06/19 05:17 09/06/19 06:28 09/06/19 05:17 09/06/19 09:35 09/06/19 05:17 General appearance: Present: no acute distress, well-nourished - EENT Eyes: Present: PERRL, EOM intact - Neck Neck: Present: supple, normal ROM - Respiratory Respiratory effort: normal Respiratory: bilateral: diminished, negative: rales, rhonchi, wheezing - Cardiovascular Rhythm: regular Heart Sounds: Present: S1 & S2 - Extremities Extremities: no ischemia, No edema - Abdominal General gastrointestinal: soft, non-tender, non-distended, normal bowel sounds - Integumentary Integumentary: Present: clear, warm - Psychiatric Psychiatric: appropriate mood/affect, cooperative - Neurologic Neurologic: CNII-XII intact, moves all extremities Results - Labs CBC & Chem 7: 09/04/19 05:28 09/04/19 05:28 Labs: Laboratory Last Values WBC 8.0 K/mm3 (4.5-11.0) 09/04/19 05:28 RBC 2.90 M/mm3 (3.65-5.03) L 09/04/19 05:28 Hgb 8.0 gm/dl (11.8-15.2) L 09/04/19 05:28 Hct 24.9 % (35.5-45.6) L 09/04/19 05: MCV 86 fl (84-94) 09/04/19 05: MCH 28 pg (28-32) 09/04/19 05: MCHC 32 % (32-34) 09/04/19 05:28 RDW 14.8 % (13.2-15.2) 09/04/19 05:28 Plt Count 326 K/mm3 (140-440) 09/04/19 05:28 Lymph % (Auto) 36.5 % (13.4-35.0) H 09/04/19 05:28 [place] % (Auto) 11.3 % (0.0-7.3) H 09/04/19 05:28 Eos % (Auto) 2.5 % (0.0-4.3) 09/04/19 05:28 Baso % (Auto) 1.5 % (0.0-1.8) 09/04/19 05:28 Lymph # 2.9 K/mm3 (1.2-5.4) 09/04/19 05:28 [place] # 0.9 K/mm3 (0.0-0.8) H 09/04/19 05:28 Eos # 0.2 K/mm3 (0.0-0.4) 09/04/19 05:28 Baso # 0.1 K/mm3 (0.0-0.1) 09/04/19 05:28 Seg Neutrophils % 48.2 % (40.0-70.0) 09/04/19 05:28 Seg Neutrophils # 3.9 K/mm3 (1.8-7.7) 09/04/19 05:28 Percent Retic 3.77 % (0.78-2.58) H 08/30/19 14:30 PT 14.1 Sec. (12.2-14.9) 08/21/19 10:20 INR 1.12 (0.87-1.13) 08/21/19 10:20 APTT 34.3 Sec. (24.2-36.6) 08/21/19 10:20 Sodium 142 mmol/L (137-145) 09/04/19 05:28 Potassium 3.9 mmol/L (3.6-5.0) 09/04/19 05:28 Chloride 104.4 mmol/L (98-107) 09/04/19 05:28 Carbon Dioxide 28 mmol/L (22-30) 09/04/19 05:28 Anion Gap 14 mmol/L 09/04/19 05:28 BUN 24 mg/dL (9-20) H 09/04/19 05:28 Creatinine 6.4 mg/dL (0.8-1.5) H 09/04/19 05:28 Estimated GFR 12 ml/min 09/04/19 05:28 BUN/Creatinine Ratio 4 % 09/04/19 05:28 Glucose 80 mg/dL (75-100) 09/04/19 05:28 POC Glucose 92 (70-105) 09/06/19 07:45 Hemoglobin A1c 5.5 % (4-6) 08/27/19 08:30 Calcium 8.4 mg/dL (8.4-10.2) 09/04/19 05:28 Phosphorus 5.70 mg/dL (2.5-4.5) H 08/23/19 08:55 Magnesium 1.80 mg/dL (1.7-2.3) 08/22/19 14:12 Iron 21 ug/dL (49-181) L 08/30/19 14:30 TIBC 178 mcg/dL (250-450) L 08/30/19 14:30 % Saturation 30.38 % 08/23/19 08:55 Transferrin 138 mg/dl (180-329) L 08/23/19 08:55 Ferritin 211.5 ng/mL (13.0-400.0) 08/24/19 03:01 Total Bilirubin 0.30 mg/dL (0.1-1.2) 08/21/19 10:29 AST 16 units/L (5-40) 08/21/19 10:29 ALT 9 units/L (7-56) 08/21/19 10:29 Alkaline Phosphatase 57 units/L (35-129) 08/21/19 10:29 Total Protein 6.0 g/dL (6.3-8.2) L 08/21/19 10:29 Albumin 2.5 g/dL (3.9-5) L 08/21/19 10:29 Albumin/Globulin Ratio 0.7 % 08/21/19 10:29 Vitamin B12 771.7 pg/mL (211-911) 08/30/19 14:30 Folate 5.52 ng/mL (7.3-26.0) L 08/30/19 14:30 PTH Intact 63.81 pg/mL (15-65) 08/31/19 06:30 Urine Color Yellow (Yellow) 08/23/19 11:43 Urine Turbidity Clear (Clear) 08/23/19 11:43 Urine pH 6.0 (5.0-7.0) 08/23/19 11:43 Ur Specific [place] 1.016 (1.003-1.030) 08/23/19 11:43 Urine Protein >500 mg/dL (Negative) 08/23/19 11:43 Urine Glucose (UA) >=500 mg/dL (Negative) 08/23/19 11:43 Urine Ketones Neg mg/dL (Negative) 08/23/19 11:43 Urine Blood Sm (Negative) 08/23/19 11:43 Urine Nitrite Neg (Negative) 08/23/19 11:43 Urine Bilirubin Neg (Negative) 08/23/19 11:43 Urine Urobilinogen < 2.0 mg/dL (<2.0) 08/23/19 11:43 Ur Leukocyte Esterase Neg (Negative) 08/23/19 11:43 Urine WBC (Auto) 5.0 /HPF (0.0-6.0) 08/23/19 11:43 Urine RBC (Auto) 1.0 /HPF (0.0-6.0) 08/23/19 11:43 U Epithel Cells (Auto) < 1.0 /HPF (0-13.0) 08/23/19 11:43 Urine Bacteria (Auto) 1+ /HPF (Negative) 08/23/19 11:43 Hyaline Casts 6 /LPF 08/23/19 11:43 Urine Mucus Few /HPF 08/23/19 11:43 Urine Eosinophils None seen (None Seen) 08/23/19 11:43 Urine Total Volume 515 ml 08/24/19 15:16 Urine Creatinine 56.0 mg/dL (0.1-20.0) H 08/24/19 15:16 Ur Creatinine 24 Hour 1.7 (0.8-2.8) 08/22/19 08:36 Height (in) 75.0 inches 08/24/19 15:16 Weight (lb) 206.0 lbs 08/24/19 15:16 Creatinine Clearance 1 08/24/19 15:16 Hepatitis A IgM Ab Non-reactive (NonReactive) 08/24/19 15:01 Hep Bs Antigen Non-reactive (Negative) 08/24/19 15:01 Hep B Core IgM Ab Non-reactive (NonReactive) 08/24/19 15:01 Hepatitis C Antibody Non-reactive (NonReactive) 08/24/19 15:01 Blood Type O POSITIVE 08/21/19 10:20 Antibody Screen Negative 08/21/19 10:20 Crossmatch See Detail 08/21/19 10:20 Active Medications - Current Medications Current Medications: Generic Name Dose Route Start Last Admin Trade Name Freq PRN Reason Stop Dose Admin Albuterol 2.5 mg 08/22/19 00:01 Proventil IH Q4HRT PRN Shortness Of Breath Epoetin Wale 20,000 unit 09/02/19 15:00 09/04/19 12:36 Procrit IV 20,000 unit BRENDAN PRN Administration hemodialysis Hydralazine HCl 20 mg 08/22/19 12:29 09/06/19 06:28 Apresoline IV 20 mg Q4H PRN Administration SBP>160 or DBP>110 Sodium Chloride 100 mls @ 999 mls/hr 09/02/19 12:47 Nacl 0.9% IV BRENDAN PRN Hypotension Insulin Glargine 13 units 09/03/19 16:30 09/06/19 09:36 Lantus SUB-Q 13 units QAMDIAB KESHIA Administration Insulin Human Lispro 0 unit 08/22/19 22:00 09/06/19 08:14 Humalog SUB-Q Not Given ACHS [facility] Protocol Losartan Potassium 100 mg 08/25/19 10:00 09/06/19 09:35 Cozaar PO 100 mg QDAY KESHIA Administration Metoprolol Tartrate 50 mg 08/30/19 14:00 09/06/19 09:35 Lopressor PO 50 mg TID KESHIA Administration Ondansetron HCl 4 mg 08/21/19 23:10 08/23/19 17:15 Zofran IV 4 mg Q6H PRN Administration Nausea And Vomiting Oxycodone/Acetaminophen 1 tab 08/24/19 20:39 09/03/19 22:13 Percocet 5/325 PO 1 tab Q6H PRN Administration Pain, Moderate (4-6) Pantoprazole Sodium 40 mg 08/23/19 11:00 09/06/19 09:35 Protonix PO 40 mg QDAY KESHIA Administration Nutrition/Malnutrition Assess - Dietary Evaluation Nutrition/Malnutrition Findings: Nutrition Notes Start: 08/22/19 12:39 Freq: Status: Active Protocol: Document 08/25/19 10:31 CC (Rec: 08/25/19 13:40 CC [email or web address]) Co-Sign 08/25/19 10:31 Nutrition Notes Initial or Follow up Reassessment Current Diagnosis CKD(stage I-IV),Diabetes, Hypertension Other Pertinent Diagnosis Upper GIB, Anemia, Gastroparesis Current Diet Renal Labs/Tests Na 133, GFR 9, Creat 8.4, BUN 49, Glu 258 Pertinent Medications Reviewed Height 6 ft 3 in Weight 85.4 kg Usual Body Weight 88.6 kg [place] Body Weight (kg) 89.09 BMI 23.5 Intake Prior to Admission Good Weight change and time frame Pt continues to deny recent wt loss. Pt denied holding fluid Weight Status Appropriate Subjective/Other Information F/U for diet advancement, PO tolerance Advanced to renal diet per pt tolerating well. Per ADL note pt consumed 75% of dinner . Nurse stated pt has been asking for more food and requested double portions. Sterile Processing Technician observed 100% of lunch consumed. Pt has no visible signs of muscle or fat wasting Percent of energy/protein needs met: 85%/100% Burn Absent Trauma Absent Current % PO Good (75-100%) Minimum of two criteria No physical signs of malnutrition #2 Nutrition Diagnosis Food and nutrition-related knowledge deficit Etiology Pt is to begin HD once placement is found As Evidenced by Signs and Symptoms Pt report of no knowledge of renal diet #1 Nutrition Diagnosis Altered GI function As Evidenced by Signs and Symptoms Pt tolerating renal diet Diagnosis Progress(for reassessment Resolved documentation) Is patient on ventilator? No Is Patient Ambulatory and/or Out of Bed Yes REE-([facility]-ambulatory/OOB) [ 2463.019 [id number]] Calculation Used for Recommendations [facility] Additional Notes Pro needs 0.8-0.9g/k-80g/ day Fluid needs 1ml/kcal Nutrition Intervention Change Diet Order: Continue renal diet Teaching Recipient Patient Learning Readiness Good Teaching Methods Discussion,Handout Response to Teaching Verbalize understanding Education Handouts Provided CKD Stage 5 Tips for People on Dialysis Barriers to Learning Financial RD phone number provided Yes Patient aware of follow up options Yes Anticipated Discharge Needs: Renal/CHO-controlled diet Revisit per MD consult or patient Sign Off request:
[2019-09-06] MEDS: oxyCODONE /ACETAMINOPHEN 5-325MG TAB PO PRN (12:08)
--- NOTE | 2019-09-06 13:08 | Progress Note ---
Assessment and Plan # Acute on chronic renal insufficiency: acute on chronic renal disease now with likely ESRD, started on hemodialysis via [facility] CVC - continue hemodialysis MWF while inpatient, next due on 09/07/19 - awaiting outpatient placement, appreciate social work assistance, will follow up tomorrow - avoid nephrotoxins - renally dose all medications # Anemia: likely anemia secondary to chronic kidney disease. Last hemoglobin 8.0 - will continue ESAs, currently on epogen to [id number] # Uncontrolled diabetes mellitus - care per primary team # HTN (hypertension): BP has been controlled. - continue current medications. Subjective Date of service: 09/06/19 Principal diagnosis: ESRD, Interval history: No acute events noted overnight. Has not had issues with HD. Denies any cramping, dizziness with HD. No dyspnea, chest pain. Waiting to hear about o utpatient dialysis placement, hoping to go to [facility] Objective - Exam Narrative Exam: General appearance: well-developed, well-nourished EENT: ATNC, PERRL, mucous membranes moist Neck: no JVD Respiratory: Present: Clear to Auscultation Cardiology: S1S2 Gastrointestinal: normal, normoactive bowel sounds Integumentary: no rash Neurologic: alert and oriented x3, CN 3-12 intact Psychiatric: mood/affect appropriate - Vital Signs Vital signs: Vital Signs - 12hr 09/06/19 09/06/19 09/06/19 05:17 06:28 09:35 Temperature 98.1 F Pulse Rate 70 71 Respiratory 24 Rate Blood Pressure 178/107 178/107 162/96 O2 Sat by Pulse 100 Oximetry - Lab 09/04/19 05:28 09/04/19 05:28 Most recent lab results Calcium 8.4 mg/dL (8.4-10.2) 09/04/19 05:28 Phosphorus 5.70 mg/dL (2.5-4.5) H 08/23/19 08:55 Magnesium 1.80 mg/dL (1.7-2.3) 08/22/19 14:12 Urine Creatinine 56.0 mg/dL (0.1-20.0) H 08/24/19 15:16 Medications & Allergies - Medications Allergies/Adverse Reactions: Allergies No Known Allergies Allergy (Verified 11/21/18 17:51) Home Medications: Home Medications Medication Instructions Recorded Confirmed Last Taken Type ALBUTEROL Inhaler (OR & NICU) 1 puff IH Q4H PRN 08/21/19 08/21/19 Unknown History [Proair] Carvedilol [Coreg] 25 mg PO Q12H 08/21/19 08/21/19 Unknown History Furosemide [Lasix TAB] 40 mg PO BID 08/21/19 08/21/19 Unknown History Lisinopril [Zestril] 5 mg PO QDAY 08/21/19 08/21/19 Unknown History Metoclopramide [Reglan ORAL LIQ] 10 mg PO QID 08/21/19 08/21/19 Unknown History Pantoprazole [Protonix TAB] 40 mg PO BIDAC 08/21/19 08/21/19 Unknown History hydrALAZINE [Apresoline] 25 mg PO Q8HR 08/21/19 08/21/19 Unknown History Active Medications: Generic Name Dose Route Start Last Admin Trade Name Freq PRN Reason Stop Dose Admin Albuterol 2.5 mg 08/22/19 00:01 Proventil IH Q4HRT PRN Shortness Of Breath Epoetin Wale 20,000 unit 09/02/19 15:00 09/04/19 12:36 Procrit IV 20,000 unit BRENDAN PRN Administration hemodialysis Hydralazine HCl 20 mg 08/22/19 12:29 09/06/19 06:28 Apresoline IV 20 mg Q4H PRN Administration SBP>160 or DBP>110 Sodium Chloride 100 mls @ 999 mls/hr 09/02/19 12:47 Nacl 0.9% IV BRENDAN PRN Hypotension Insulin Glargine 13 units 09/03/19 16:30 09/06/19 09:36 Lantus SUB-Q 13 units QAMDIAB KESHIA Administration Insulin Human Lispro 0 unit 08/22/19 22:00 09/06/19 12:05 Humalog SUB-Q 4 unit ACHS KESHIA Administration Protocol Losartan Potassium 100 mg 08/25/19 10:00 09/06/19 09:35 Cozaar PO 100 mg QDAY KESHIA Administration Metoprolol Tartrate 50 mg 08/30/19 14:00 09/06/19 09:35 Lopressor PO 50 mg TID KESHIA Administration Ondansetron HCl 4 mg 08/21/19 23:10 08/23/19 17:15 Zofran IV 4 mg Q6H PRN Administration Nausea And Vomiting Oxycodone/Acetaminophen 1 tab 08/24/19 20:39 09/06/19 12:08 Percocet 5/325 PO 1 tab Q6H PRN Administration Pain, Moderate (4-6) Pantoprazole Sodium 40 mg 08/23/19 11:00 09/06/19 09:35 Protonix PO 40 mg QDAY KESHIA Administration
--- NOTE | 2019-09-07 07:43 | Progress Note ---
Assessment and Plan Assessment and plan: Patient is 33-year-old -[place] male presents to the emergency department via EMS from home with complaint of abdominal pain, nausea, vomiting and vomiting of blood that has been going on for 3 days prior to presentation. The patient does have a history of ulcerative esophagitis, gastroparesis, CKD stage 5 not on without hemodialysis, diabetes, hypertension. 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 He was seen and evaluated in ED and admitted. he was evaluated by Nephrology and GI Physician. Conservative management was recommended by GI Physician since he has had EGD X 2 this year. Nephrology initiated hemodialysis , stable for discharge awaiting outpatient HD placement --ESRD: Started on hemodilysis HD per schedule MWF Awaiting outpatient HD placement --Metabolic acidosis- Resolved; HD per schedule --Upper GI bleed; resolved Evaluated by GI , stable No indication for EGD op follow-up --Gastroparesis; Resolved, tolerating PO --IDDM (insulin dependent diabetes mellitus) Accu checks Qac AND Lantus, A1c 5.5 --Hypertension; moderate control Optimize BP meds --History of bronchial Asthma- stable Albuterol MDI qid prn --Anemia due to acute blood loss: from GI bleed and ESRD s/p 1 Unit PRBC H&H improved , nonicteric --Hypernatremia-RESOLVED --Severe Malnutrition/hypoalbuminemia supportive care supportive care , Dietitian consult --DVT prophylaxis; SCD's No pharmacologic anticoagulation In view of GI bleeding and anemia Disposition ;awaiting outpatient HD placement Patient is medically stable for discharge History Interval history: Patient seen and examined medical records reviewed No new complaints, vital signs noted Awaiting outpatient HD placement Hospitalist Physical - Constitutional Vitals: Temp Pulse Resp BP Pulse Ox 98.0 F 74 18 161/91 99 09/07/19 04:48 09/07/19 04:48 09/07/19 04:48 09/07/19 04:48 09/07/19 04:48 General appearance: Present: no acute distress, well-nourished - EENT Eyes: Present: PERRL, EOM intact - Neck Neck: Present: supple, normal ROM - Respiratory Respiratory effort: normal Respiratory: bilateral: diminished, negative: rales, rhonchi, wheezing - Cardiovascular Rhythm: regular Heart Sounds: Present: S1 & S2 - Extremities Extremities: no ischemia, No edema - Abdominal General gastrointestinal: soft, non-tender, non-distended, normal bowel sounds - Integumentary Integumentary: Present: clear, warm - Psychiatric Psychiatric: appropriate mood/affect, cooperative - Neurologic Neurologic: CNII-XII intact, moves all extremities Results - Labs CBC & Chem 7: 09/04/19 05:28 09/04/19 05:28 Labs: Laboratory Last Values WBC 8.0 K/mm3 (4.5-11.0) 09/04/19 05:28 RBC 2.90 M/mm3 (3.65-5.03) L 09/04/19 05:28 Hgb 8.0 gm/dl (11.8-15.2) L 09/04/19 05:28 Hct 24.9 % (35.5-45.6) L 09/04/19 05:28 MCV 86 fl (84-94) 09/04/19 05:28 MCH 28 pg (28-32) 09/04/19 05: MCHC 32 % (32-34) 09/04/19 05:28 RDW 14.8 % (13.2-15.2) 09/04/19 05:28 Plt Count 326 K/mm3 (140-440) 09/04/19 05:28 Lymph % (Auto) 36.5 % (13.4-35.0) H 09/04/19 05:28 [place] % (Auto) 11.3 % (0.0-7.3) H 09/04/19 05:28 Eos % (Auto) 2.5 % (0.0-4.3) 09/04/19 05:28 Baso % (Auto) 1.5 % (0.0-1.8) 09/04/19 05:28 Lymph # 2.9 K/mm3 (1.2-5.4) 09/04/19 05:28 [place] # 0.9 K/mm3 (0.0-0.8) H 09/04/19 05:28 Eos # 0.2 K/mm3 (0.0-0.4) 09/04/19 05:28 Baso # 0.1 K/mm3 (0.0-0.1) 09/04/19 05:28 Seg Neutrophils % 48.2 % (40.0-70.0) 09/04/19 05:28 Seg Neutrophils # 3.9 K/mm3 (1.8-7.7) 09/04/19 05:28 Percent Retic 3.77 % (0.78-2.58) H 08/30/19 14:30 PT 14.1 Sec. (12.2-14.9) 08/21/19 10:20 INR 1.12 (0.87-1.13) 08/21/19 10:20 APTT 34.3 Sec. (24.2-36.6) 08/21/19 10:20 Sodium 142 mmol/L (137-145) 09/04/19 05:28 Potassium 3.9 mmol/L (3.6-5.0) 09/04/19 05:28 Chloride 104.4 mmol/L (98-107) 09/04/19 05:28 Carbon Dioxide 28 mmol/L (22-30) 09/04/19 05:28 Anion Gap 14 mmol/L 09/04/19 05:28 BUN 24 mg/dL (9-20) H 09/04/19 05:28 Creatinine 6.4 mg/dL (0.8-1.5) H 09/04/19 05:28 Estimated GFR 12 ml/min 09/04/19 05:28 BUN/Creatinine Ratio 4 % 09/04/19 05:28 Glucose 80 mg/dL (75-100) 09/04/19 05:28 POC Glucose 155 (70-105) H 09/06/19 21:30 Hemoglobin A1c 5.5 % (4-6) 08/27/19 08:30 Calcium 8.4 mg/dL (8.4-10.2) 09/04/19 05:28 Phosphorus 5.70 mg/dL (2.5-4.5) H 08/23/19 08:55 Magnesium 1.80 mg/dL (1.7-2.3) 08/22/19 14:12 Iron 21 ug/dL (49-181) L 08/30/19 14:30 TIBC 178 mcg/dL (250-450) L 08/30/19 14:30 % Saturation 30.38 % 08/23/19 08:55 Transferrin 138 mg/dl (180-329) L 08/23/19 08:55 Ferritin 211.5 ng/mL (13.0-400.0) 08/24/19 03:01 Total Bilirubin 0.30 mg/dL (0.1-1.2) 08/21/19 10:29 AST 16 units/L (5-40) 08/21/19 10:29 ALT 9 units/L (7-56) 08/21/19 10:29 Alkaline Phosphatase 57 units/L (35-129) 08/21/19 10:29 Total Protein 6.0 g/dL (6.3-8.2) L 08/21/19 10:29 Albumin 2.5 g/dL (3.9-5) L 08/21/19 10:29 Albumin/Globulin Ratio 0.7 % 08/21/19 10:29 Vitamin B12 771.7 pg/mL (211-911) 08/30/19 14:30 Folate 5.52 ng/mL (7.3-26.0) L 08/30/19 14:30 PTH Intact 63.81 pg/mL (15-65) 08/31/19 06:30 Urine Color Yellow (Yellow) 08/23/19 11:43 Urine Turbidity Clear (Clear) 08/23/19 11:43 Urine pH 6.0 (5.0-7.0) 08/23/19 11:43 Ur Specific [place] 1.016 (1.003-1.030) 08/23/19 11:43 Urine Protein >500 mg/dL (Negative) 08/23/19 11:43 Urine Glucose (UA) >=500 mg/dL (Negative) 08/23/19 11:43 Urine Ketones Neg mg/dL (Negative) 08/23/19 11:43 Urine Blood Sm (Negative) 08/23/19 11:43 Urine Nitrite Neg (Negative) 08/23/19 11:43 Urine Bilirubin Neg (Negative) 08/23/19 11:43 Urine Urobilinogen < 2.0 mg/dL (<2.0) 08/23/19 11:43 Ur Leukocyte Esterase Neg (Negative) 08/23/19 11:43 Urine WBC (Auto) 5.0 /HPF (0.0-6.0) 08/23/19 11:43 Urine RBC (Auto) 1.0 /HPF (0.0-6.0) 08/23/19 11:43 U Epithel Cells (Auto) < 1.0 /HPF (0-13.0) 08/23/19 11:43 Urine Bacteria (Auto) 1+ /HPF (Negative) 08/23/19 11:43 Hyaline Casts 6 /LPF 08/23/19 11:43 Urine Mucus Few /HPF 08/23/19 11:43 Urine Eosinophils None seen (None Seen) 08/23/19 11:43 Urine Total Volume 515 ml 08/24/19 15:16 Urine Creatinine 56.0 mg/dL (0.1-20.0) H 08/24/19 15:16 Ur Creatinine 24 Hour 1.7 (0.8-2.8) 08/22/19 08:36 Height (in) 75.0 inches 08/24/19 15:16 Weight (lb) 206.0 lbs 08/24/19 15:16 Creatinine Clearance 1 08/24/19 15:16 Hepatitis A IgM Ab Non-reactive (NonReactive) 08/24/19 15:01 Hep Bs Antigen Non-reactive (Negative) 08/24/19 15:01 Hep B Core IgM Ab Non-reactive (NonReactive) 08/24/19 15:01 Hepatitis C Antibody Non-reactive (NonReactive) 08/24/19 15:01 Blood Type O POSITIVE 08/21/19 10:20 Antibody Screen Negative 08/21/19 10:20 Crossmatch See Detail 08/21/19 10:20 Active Medications - Current Medications Current Medications: Generic Name Dose Route Start Last Admin Trade Name Freq PRN Reason Stop Dose Admin Albuterol 2.5 mg 08/22/19 00:01 Proventil IH Q4HRT PRN Shortness Of Breath Epoetin Wale 20,000 unit 09/02/19 15:00 09/04/19 12:36 Procrit IV 20,000 unit BRENDAN PRN Administration hemodialysis Hydralazine HCl 20 mg 08/22/19 12:29 09/06/19 06:28 Apresoline IV 20 mg Q4H PRN Administration SBP>160 or DBP>110 Sodium Chloride 100 mls @ 999 mls/hr 09/02/19 12:47 Nacl 0.9% IV BRENDAN PRN Hypotension Insulin Glargine 13 units 09/03/19 16:30 09/06/19 09:36 Lantus SUB-Q 13 units QAMDIAB KESHIA Administration Insulin Human Lispro 0 unit 08/22/19 22:00 09/06/19 22:37 Humalog SUB-Q 3 unit ACHS KESHIA Administration Protocol Losartan Potassium 100 mg 08/25/19 10:00 09/06/19 09:35 Cozaar PO 100 mg QDAY KESHIA Administration Metoprolol Tartrate 50 mg 08/30/19 14:00 09/06/19 20:03 Lopressor PO 50 mg TID KESHIA Administration Ondansetron HCl 4 mg 08/21/19 23:10 08/23/19 17:15 Zofran IV 4 mg Q6H PRN Administration Nausea And Vomiting Oxycodone/Acetaminophen 1 tab 08/24/19 20:39 09/06/19 12:08 Percocet 5/325 PO 1 tab Q6H PRN Administration Pain, Moderate (4-6) Pantoprazole Sodium 40 mg 08/23/19 11:00 09/06/19 09:35 Protonix PO 40 mg QDAY KESHIA Administration Nutrition/Malnutrition Assess - Dietary Evaluation Nutrition/Malnutrition Findings: Nutrition Notes Start: 08/22/19 12:39 Freq: Status: Active Protocol: Document 08/25/19 10:31 CC (Rec: 08/25/19 13:40 CC [email or web address]) Co-Sign 08/25/19 10:31 Nutrition Notes Initial or Follow up Reassessment Current Diagnosis CKD(stage I-IV),Diabetes, Hypertension Other Pertinent Diagnosis Upper GIB, Anemia, Gastroparesis Current Diet Renal Labs/Tests Na 133, GFR 9, Creat 8.4, BUN 49, Glu 258 Pertinent Medications Reviewed Height 6 ft 3 in Weight 85.4 kg Usual Body Weight 88.6 kg [place] Body Weight (kg) 89.09 BMI 23.5 Intake Prior to Admission Good Weight change and time frame Pt continues to deny recent wt loss. Pt denied holding fluid Weight Status Appropriate Subjective/Other Information F/U for diet advancement, PO tolerance Advanced to renal diet per pt tolerating well. Per ADL note pt consumed 75% of dinner . Nurse stated pt has been asking for more food and requested double portions. Manager Of Purchasing observed 100% of lunch consumed. Pt has no visible signs of muscle or fat wasting Percent of energy/protein needs met: 85%/100% Burn Absent Trauma Absent Current % PO Good (75-100%) Minimum of two criteria No physical signs of malnutrition #2 Nutrition Diagnosis Food and nutrition-related knowledge deficit Etiology Pt is to begin HD once placement is found As Evidenced by Signs and Symptoms Pt report of no knowledge of renal diet #1 Nutrition Diagnosis Altered GI function As Evidenced by Signs and Symptoms Pt tolerating renal diet Diagnosis Progress(for reassessment Resolved documentation) Is patient on ventilator? No Is Patient Ambulatory and/or Out of Bed Yes REE-([facility]. or-ambulatory/OOB) [ [id number] [id number]] Calculation Used for Recommendations [facility] Additional Notes Pro needs 0.8-0.9g/k-80g/ day Fluid needs 1ml/kcal Nutrition Intervention Change Diet Order: Continue renal diet Teaching Recipient Patient Learning Readiness Good Teaching Methods Discussion,Handout Response to Teaching Verbalize understanding Education Handouts Provided CKD Stage 5 Tips for People on Dialysis Barriers to Learning Financial RD phone number provided Yes Patient aware of follow up options Yes Anticipated Discharge Needs: Renal/CHO-controlled diet Revisit per MD consult or patient Sign Off request:
[2019-09-07] MEDS: METOPROLOL TARTRATE 50 MG TAB PO SCH ×3 (09:47→22:15)
[2019-09-07] MEDS: LOSARTAN 50 MG TAB PO SCH (09:47)
[2019-09-07] MEDS: INSULIN GLARGINE 100 UNITS/ML SUB-Q SCH (09:48)
[2019-09-07] MEDS: PANTOPRAZOLE 40 MG TAB PO SCH (09:48)
[2019-09-07] MEDS: INSULIN LISPRO 100 UNIT/ML SUB-Q SCH ×4 (09:49→22:16)
[2019-09-07] MEDS ORDERED: SODIUM CHLORIDE*PRIMING MACHINE ONLY FOR DIALYSIS MC ONE (17:13)
--- NOTE | 2019-09-07 17:25 | Progress Note ---
Assessment and Plan Assessment: * End stage renal disease * Hypertension * Type II DM * Coffee ground emesis --Hx of ulcerative esophagitis * Anemia secondary to ESRD vs ABL Plan: * Hemodialysis today * Continue HD MWF - UF as tolerated * Glycemic control per primary team * Continue antiHTN medications - reassess BP post HD * Epogen TIW prn * Outpatient dialysis clinic placement in progress Subjective Date of service: 09/07/19 Principal diagnosis: ESRD, Interval history: Attempted to see patient x 2 this AM - in restroom both times. Objective - Exam Narrative Exam: Deferred - Vital Signs Vital signs: Vital Signs - 12hr 09/07/19 09/07/19 09/07/19 14:10 14:15 14:30 Temperature 98.4 F Pulse Rate 77 73 78 Respiratory 18 Rate Blood Pressure 181/105 192/96 187/109 09/07/19 09/07/19 09/07/19 14:45 15:00 15:15 Temperature Pulse Rate 80 79 80 Respiratory Rate Blood Pressure 183/112 181/105 185/102 09/07/19 09/07/19 09/07/19 15:30 15:45 16:00 Temperature Pulse Rate 82 81 79 Respiratory Rate Blood Pressure 155/80 158/79 179/105 09/07/19 09/07/19 09/07/19 16:15 16:30 16:45 Temperature Pulse Rate 77 78 76 Respiratory Rate Blood Pressure 177/102 183/103 182/101 - Lab 09/08/19 13:50 09/08/19 09:40 Most recent lab results Calcium 8.4 mg/dL (8.4-10.2) 09/04/19 05:28 Phosphorus 5.70 mg/dL (2.5-4.5) H 08/23/19 08:55 Magnesium 1.80 mg/dL (1.7-2.3) 08/22/19 14:12 Urine Creatinine 56.0 mg/dL (0.1-20.0) H 08/24/19 15:16 Medications & Allergies - Medications Allergies/Adverse Reactions: Allergies No Known Allergies Allergy (Verified 11/21/18 17:51) Home Medications: Home Medications Medication Instructions Recorded Confirmed Last Taken Type ALBUTEROL Inhaler (OR & NICU) 1 puff IH Q4H PRN 08/21/19 08/21/19 Unknown History [Proair] Carvedilol [Coreg] 25 mg PO Q12H 08/21/19 08/21/19 Unknown History Furosemide [Lasix TAB] 40 mg PO BID 08/21/19 08/21/19 Unknown History Lisinopril [Zestril] 5 mg PO QDAY 08/21/19 08/21/19 Unknown History Metoclopramide [Reglan ORAL LIQ] 10 mg PO QID 08/21/19 08/21/19 Unknown History Pantoprazole [Protonix TAB] 40 mg PO BIDAC 08/21/19 08/21/19 Unknown History hydrALAZINE [Apresoline] 25 mg PO Q8HR 08/21/19 08/21/19 Unknown History Active Medications: Generic Name Dose Route Start Last Admin Trade Name Freq PRN Reason Stop Dose Admin Albuterol 2.5 mg 08/22/19 00:01 Proventil IH Q4HRT PRN Shortness Of Breath Epoetin Wale 20,000 unit 09/02/19 15:00 09/04/19 12:36 Procrit IV 20,000 unit BRENDAN PRN Administration hemodialysis Hydralazine HCl 20 mg 08/22/19 12:29 09/06/19 06:28 Apresoline IV 20 mg Q4H PRN Administration SBP>160 or DBP>110 Sodium Chloride 100 mls @ 999 mls/hr 09/02/19 12:47 Nacl 0.9% IV BRENDAN PRN Hypotension Insulin Glargine 13 units 09/03/19 16:30 09/07/19 09:48 Lantus SUB-Q 13 units QAMDIAB KESHIA Administration Insulin Human Lispro 0 unit 08/22/19 22:00 09/07/19 12:00 Humalog SUB-Q Not Given ACHS KESHIA Protocol Losartan Potassium 100 mg 08/25/19 10:00 09/07/19 09:47 Cozaar PO 100 mg QDAY KESHIA Administration Metoprolol Tartrate 50 mg 08/30/19 14:00 09/07/19 14:00 Lopressor PO Not Given TID KESHIA Ondansetron HCl 4 mg 08/21/19 23:10 08/23/19 17:15 Zofran IV 4 mg Q6H PRN Administration Nausea And Vomiting Oxycodone/Acetaminophen 1 tab 08/24/19 20:39 09/06/19 12:08 Percocet 5/325 PO 1 tab Q6H PRN Administration Pain, Moderate (4-6) Pantoprazole Sodium 40 mg 08/23/19 11:00 09/07/19 09:48 Protonix PO 40 mg QDAY KESHIA Administration
[2019-09-08] MEDS: hydrALAZINE 20 MG/1 ML INJ IV PRN ×3 (00:12→12:32)
[2019-09-08] MEDS: ONDANSETRON 4 MG/2 ML INJ IV PRN ×2 (05:48→09:35)
--- NOTE | 2019-09-08 08:24 | Progress Note ---
Assessment and Plan Assessment: * End stage renal disease * Coffee ground emesis --Hx of ulcerative esophagitis * Type II DM * Hypertension * Anemia secondary to ESRD vs ABL Plan: * Patient is s/p HD yesterday. No acute indication for HD today * Continue HD MWF - UF as tolerated * GI following * Gentle IVF for now * Epogen TIW prn * Outpatient dialysis clinic placement in progress Subjective Date of service: 09/08/19 Principal diagnosis: ESRD, Interval history: Patient w/ coffee ground emesis this AM. Objective - Vital Signs Vital signs: Vital Signs - 12hr 09/07/19 09/07/19 09/07/19 22:08 22:12 22:15 Temperature 98.4 F 98.4 F Pulse Rate 81 81 Respiratory 18 Rate Blood Pressure 168/93 168/93 Blood Pressure 168/93 [Left] O2 Sat by Pulse Oximetry 09/08/19 09/08/19 09/08/19 00:12 05:27 05:48 Temperature Pulse Rate 79 90 90 Respiratory Rate Blood Pressure 177/100 179/93 Blood Pressure [Left] O2 Sat by Pulse 100 Oximetry - General Appearance General appearance: well-developed, well-nourished EENT: ATNC Cardiology: regular, S1S2 Gastrointestinal: normal, no tenderness, no distended Integumentary: no rash Neurologic: alert and oriented x3 Musculoskeletal: other (no edema) Psychiatric: cooperative - Lab 09/08/19 13:50 09/08/19 09:40 Most recent lab results Calcium 8.4 mg/dL (8.4-10.2) 09/04/19 05:28 Phosphorus 5.70 mg/dL (2.5-4.5) H 08/23/19 08:55 Magnesium 1.80 mg/dL (1.7-2.3) 08/22/19 14:12 Urine Creatinine 56.0 mg/dL (0.1-20.0) H 08/24/19 15:16 Medications & Allergies - Medications Allergies/Adverse Reactions: Allergies No Known Allergies Allergy (Verified 11/21/18 17:51) Home Medications: Home Medications Medication Instructions Recorded Confirmed Last Taken Type ALBUTEROL Inhaler (OR & NICU) 1 puff IH Q4H PRN 08/21/19 08/21/19 Unknown History [Proair] Carvedilol [Coreg] 25 mg PO Q12H 08/21/19 08/21/19 Unknown History Furosemide [Lasix TAB] 40 mg PO BID 08/21/19 08/21/19 Unknown History Lisinopril [Zestril] 5 mg PO QDAY 08/21/19 08/21/19 Unknown History Metoclopramide [Reglan ORAL LIQ] 10 mg PO QID 08/21/19 08/21/19 Unknown History Pantoprazole [Protonix TAB] 40 mg PO BIDAC 08/21/19 08/21/19 Unknown History hydrALAZINE [Apresoline] 25 mg PO Q8HR 08/21/19 08/21/19 Unknown History Active Medications: Generic Name Dose Route Start Last Admin Trade Name Freq PRN Reason Stop Dose Admin Albuterol 2.5 mg 08/22/19 00:01 Proventil IH Q4HRT PRN Shortness Of Breath Epoetin Wale 20,000 unit 09/02/19 15:00 09/04/19 12:36 Procrit IV 20,000 unit BRENDAN PRN Administration hemodialysis Hydralazine HCl 20 mg 08/22/19 12:29 09/08/19 05:48 Apresoline IV 20 mg Q4H PRN Administration SBP>160 or DBP>110 Sodium Chloride 100 mls @ 999 mls/hr 09/02/19 12:47 Nacl 0.9% IV BRENDAN PRN Hypotension Insulin Glargine 13 units 09/03/19 16:30 09/07/19 09:48 Lantus SUB-Q 13 units QAMDIAB KESHIA Administration Insulin Human Lispro 0 unit 08/22/19 22:00 09/07/19 22:16 Humalog SUB-Q Not Given [facility] Protocol Losartan Potassium 100 mg 08/25/19 10:00 09/07/19 09:47 Cozaar PO 100 mg QDAY KESHIA Administration Metoprolol Tartrate 50 mg 08/30/19 14:00 09/07/19 22:15 Lopressor PO 50 mg TID KESHIA Administration Ondansetron HCl 4 mg 08/21/19 23:10 09/08/19 05:48 Zofran IV 4 mg Q6H PRN Administration Nausea And Vomiting Oxycodone/Acetaminophen 1 tab 08/24/19 20:39 09/06/19 12:08 Percocet 5/325 PO 1 tab Q6H PRN Administration Pain, Moderate (4-6) Pantoprazole Sodium 40 mg 08/23/19 11:00 09/07/19 09:48 Protonix PO 40 mg QDAY KESHIA Administration
[2019-09-08] MEDS: INSULIN LISPRO 100 UNIT/ML SUB-Q SCH ×4 (09:27→22:48)
[2019-09-08] MEDS: INSULIN GLARGINE 100 UNITS/ML SUB-Q SCH (09:43)
[2019-09-08] MEDS: METOPROLOL TARTRATE 50 MG TAB PO SCH (09:43)
[2019-09-08] MEDS: PANTOPRAZOLE 40 MG TAB PO SCH ×2 (10:00→22:49)
[2019-09-08] MEDS: SODIUM CHLORIDE 0.9% 1000 ML 1,000 ML IV SCH (10:10)
[2019-09-08 10:24] LABS: Basophils # (Auto) 0.2 K/mm3 (0.0-0.1); Basophils % (Auto) 1.9 % (0.0-1.8); Eosinophils # (Auto) 0.1 K/mm3 (0.0-0.4); Eosinophils % (Auto) 0.8 % (0.0-4.3); Hematocrit 31.2 % (35.5-45.6); Hemoglobin 9.7 gm/dl (11.8-15.2); Lymphocytes # (Auto) 1.1 K/mm3 (1.2-5.4); Lymphocytes % (Auto) 12.5 % (13.4-35.0); Mean Corpuscular HGB Conc 31 % (32-34); Mean Corpuscular Volume 86 fl (84-94); Monocytes # (Auto) 0.5 K/mm3 (0.0-0.8); Monocytes % (Auto) 6.3 % (0.0-7.3); Platelet Count 432 K/mm3 (140-440); Red Blood Count 3.63 M/mm3 (3.65-5.03); Red Cell Distribution Width 15.2 % (13.2-15.2)
[2019-09-08 10:40] LABS: Calcium 8.6 mg/dL (8.4-10.2)
[2019-09-08] MEDS ORDERED: ONDANSETRON 4 MG/2 ML INJ IV PRN (10:46)
--- NOTE | 2019-09-08 10:50 | Progress Note ---
Assessment and Plan /-Upper GI bleed; intermittent with coffee ground emesis Evaluated by GI , stable No indication for EGD, op follow-up We will change Protonix BID, and Reglan scheduled Will monitor H&H and if H&H drops will reconsult GI /-ESRD: Started on hemodilysis HD per schedule MWF Awaiting outpatient HD placement /-Metabolic acidosis- Resolved; HD per schedule /-Gastroparesis; Resolved, tolerating PO reglan scheduled /-IDDM (insulin dependent diabetes mellitus) Accu checks Qac AND Lantus, A1c 5.5 / Hypertension; moderate control Optimize BP meds as needed /-History of bronchial Asthma- stable Albuterol MDI qid prn /-Anemia due to acute blood loss: from GI bleed and ESRD s/p 1 Unit PRBC H&H improved , nonicteric /-Hypernatremia-RESOLVED /-Severe Malnutrition/hypoalbuminemia supportive care supportive care , Dietitian consult /-DVT prophylaxis; SCD's No pharmacologic anticoagulation In view of GI bleeding and anemia Disposition; awaiting outpatient HD placement Brief History Patient is 33-year-old -[place] male presents to the emergency department via EMS from home with complaint of abdominal pain, nausea, vomiting and vomiting of blood that has been going on for 3 days prior to presentation. The patient does have a history of ulcerative esophagitis, gastroparesis, CKD stage 5 not on without hemodialysis, diabetes, hypertension. He does not have a primary care physician or emergency registrar. He was seen and evaluated in ED and admitted. he was evaluated by Nephrology and GI Physician. Conservative management was recommended by GI Physician since he has had EGD X 2 this year. Nephrology initiated hemodialysis, HD cath placed on 08/24/19, awaiting outpatient HD placement Hospitalist Physical General appearance: Present: no acute distress, well-nourished - EENT Eyes: Present: PERRL, EOM intact - Neck Neck: Present: supple, normal ROM - Respiratory Respiratory effort: normal Respiratory: bilateral: diminished, negative: rales, rhonchi, wheezing - Cardiovascular Rhythm: regular Heart Sounds: Present: S1 & S2 - Extremities Extremities: no ischemia, No edema - Abdominal General gastrointestinal: soft, non-tender, non-distended, normal bowel sounds - Integumentary Integumentary: Present: clear, warm - Psychiatric Psychiatric: appropriate mood/affect, cooperative - Neurologic Neurologic: CNII-XII intact, moves all extremities Subjective Date of service: 09/08/19 Principal diagnosis: ESRD, Interval history: Patient seen and examined. Medical records and medication list reviewed. No acute event overnight noted by the RN. Patient denies any chest pain or difficulty breathing. Patient had 1 episode of coffee-ground emesis this morning. Discussed plan of care at bedside with patient and RN. Objective - Constitutional Vitals: Vital Signs - 12hr 09/08/19 09/08/19 09/08/19 00:12 05:27 05:48 Pulse Rate 79 90 90 Blood Pressure 177/100 179/93 O2 Sat by Pulse 100 Oximetry - Labs CBC & Chem 7: 09/08/19 13:50 09/08/19 09:40 Labs: Abnormal lab results 09/07/19 09/07/19 09/07/19 Range/Units 11:47 18:22 21:26 RBC (3.65-5.03) M/mm3 Hgb (11.8-15.2) gm/dl Hct (35.5-45.6) % MCH (28-32) pg MCHC (32-34) % Lymph % (Auto) (13.4-35.0) % Baso % (Auto) (0.0-1.8) % Lymph # (1.2-5.4) K/mm3 Baso # (0.0-0.1) K/mm3 Seg Neutrophils % (40.0-70.0) % Creatinine (0.8-1.5) mg/dL Glucose (75-100) mg/dL POC Glucose 144 H 171 H 136 H (70-105) 09/08/19 09/08/19 09/08/19 Range/Units 07:59 09:40 09:40 RBC 3.63 L (3.65-5.03) M/mm3 Hgb 9.7 L (11.8-15.2) gm/dl Hct 31.2 L (35.5-45.6) % MCH 27 L (28-32) pg MCHC 31 L (32-34) % Lymph % (Auto) 12.5 L (13.4-35.0) % Baso % (Auto) 1.9 H (0.0-1.8) % Lymph # 1.1 L (1.2-5.4) K/mm3 Baso # 0.2 H (0.0-0.1) K/mm3 Seg Neutrophils % 78.5 H (40.0-70.0) % Creatinine 5.1 H (0.8-1.5) mg/dL Glucose 156 H (75-100) mg/dL POC Glucose 131 H (70-105) 09/08/19 Range/Units 09:42 RBC (3.65-5.03) M/mm3 Hgb (11.8-15.2) gm/dl Hct (35.5-45.6) % MCH (28-32) pg MCHC (32-34) % Lymph % (Auto) (13.4-35.0) % Baso % (Auto) (0.0-1.8) % Lymph # (1.2-5.4) K/mm3 Baso # (0.0-0.1) K/mm3 Seg Neutrophils % (40.0-70.0) % Creatinine (0.8-1.5) mg/dL Glucose (75-100) mg/dL POC Glucose 160 H (70-105)
[2019-09-08] MEDS ORDERED: CARVEDILOL 6.25 MG TAB PO SCH (12:00)
[2019-09-08] MEDS: LOSARTAN 50 MG TAB PO SCH (12:31)
[2019-09-08] MEDS: METOCLOPRAMIDE 10 MG/2 ML INJ IV SCH ×2 (12:31→17:06)
[2019-09-08] MEDS: amLODIPine 10 MG TAB PO SCH (13:42)
[2019-09-08 14:10] LABS: Hematocrit 31.1 % (35.5-45.6); Hemoglobin 9.9 gm/dl (11.8-15.2)
--- NOTE | 2019-09-08 15:19 | Gastroenterology Progress Note ---
<EZEQUIEL SMITH - Last Filed: 09/08/19 15:26> Assessment and Plan 1.persistent N/V 2.coffee ground emesis -H/H remains stable (9.9/31.1) -continue to monitor and transfuse as needed -multiple prior EGDs (x 2 this year) for similar symptoms showing ulcerative esophagitis, which is most likely the etiology of CGE -no plan for repeat EGD unless drop in H/H or overt bleeding develops -continue high dose PPI -avoid narcotic for this may exacerbate symptoms -start on trial of Ativan for vomiting -optimize glycemic control (possibly has underlying gastroparesis due to uncontrolled DM) -continue supportive care -will follow 3.DM 4.ESRD Subjective Date of service: 09/08/19 Principal diagnosis: N/V, coffee-ground emesis Interval history: GI has been re-consulted on this patient due to persistent N/V continued dark coffee-ground emesis. No hematemesis, melena, or hematochezia. Objective - Constitutional Vitals: Temp Pulse Resp BP Pulse Ox 99.2 F 113 H 20 211/124 100 09/08/19 12:21 09/08/19 12:32 09/08/19 12:21 09/08/19 12:32 09/08/19 12:21 General appearance: no acute distress - EENT Eyes: PERRL, EOM intact ENT: hearing intact - Cardiovascular Rhythm: other (tachycardia) - Gastrointestinal General gastrointestinal: Present: soft, non-distended, normal bowel sounds - Neurologic Neurological: alert and oriented x3 - Labs CBC & Chem 7: 09/08/19 13:50 09/08/19 09:40 Labs: Laboratory Results - last 24 hr 09/07/19 09/07/19 09/08/19 18:22 21:26 05:43 WBC RBC Hgb Hct MCV MCH MCHC RDW Plt Count Lymph % (Auto) [place] % (Auto) Eos % (Auto) Baso % (Auto) Lymph # [place] # Eos # Baso # Seg Neutrophils % Seg Neutrophils # Sodium Potassium Chloride Carbon Dioxide Anion Gap BUN Creatinine Estimated GFR BUN/Creatinine Ratio Glucose POC Glucose 171 H 136 H 95 Calcium 09/08/19 09/08/19 09/08/19 07:59 09:40 09:40 WBC 8.4 RBC 3.63 L Hgb 9.7 L Hct 31.2 L MCV 86 MCH 27 L MCHC 31 L RDW 15.2 Plt Count 432 Lymph % (Auto) 12.5 L [place] % (Auto) 6.3 Eos % (Auto) 0.8 Baso % (Auto) 1.9 H Lymph # 1.1 L [place] # 0.5 Eos # 0.1 Baso # 0.2 H Seg Neutrophils % 78.5 H Seg Neutrophils # 6.6 Sodium 141 Potassium 4.1 Chloride 101.2 Carbon Dioxide 26 Anion Gap 18 BUN 20 Creatinine 5.1 H Estimated GFR 16 BUN/Creatinine Ratio 4 Glucose 156 H POC Glucose 131 H Calcium 8.6 09/08/19 09/08/19 09/08/19 09:42 12:26 13:50 WBC RBC Hgb 9.9 L Hct 31.1 L MCV MCH MCHC RDW Plt Count Lymph % (Auto) [place] % (Auto) Eos % (Auto) Baso % (Auto) Lymph # [place] # Eos # Baso # Seg Neutrophils % Seg Neutrophils # Sodium Potassium Chloride Carbon Dioxide Anion Gap BUN Creatinine Estimated GFR BUN/Creatinine Ratio Glucose POC Glucose 160 H 169 H Calcium <YAKELINULISES R - Last Filed: 09/08/19 15:31> Assessment and Plan Pt seen and examined. 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 Acute onset of symptoms this AM for no clear reason, but has had these symptoms for years, with EGD x 2 this year and known ulcerative esophagitis. Likely has functional component, as, on observation, almost seems to be inducing retching. Objective - Constitutional Vitals: Temp Pulse Resp BP Pulse Ox 99.2 F 113 H 20 211/124 100 09/08/19 12:21 09/08/19 12:32 09/08/19 12:21 09/08/19 12:32 09/08/19 12:21 - Labs CBC & Chem 7: 09/08/19 13:50 09/08/19 09:40 Labs: Laboratory Results - last 24 hr 09/07/19 09/07/19 09/08/19 18:22 21:26 05:43 WBC RBC Hgb Hct MCV MCH MCHC RDW Plt Count Lymph % (Auto) [place] % (Auto) Eos % (Auto) Baso % (Auto) Lymph # [place] # Eos # Baso # Seg Neutrophils % Seg Neutrophils # Sodium Potassium Chloride Carbon Dioxide Anion Gap BUN Creatinine Estimated GFR BUN/Creatinine Ratio Glucose POC Glucose 171 H 136 H 95 Calcium 09/08/19 09/08/19 09/08/19 07:59 09:40 09:40 WBC 8.4 RBC 3.63 L Hgb 9.7 L Hct 31.2 L MCV 86 MCH 27 L MCHC 31 L RDW 15.2 Plt Count 432 Lymph % (Auto) 12.5 L [place] % (Auto) 6.3 Eos % (Auto) 0.8 Baso % (Auto) 1.9 H Lymph # 1.1 L [place] # 0.5 Eos # 0.1 Baso # 0.2 H Seg Neutrophils % 78.5 H Seg Neutrophils # 6.6 Sodium 141 Potassium 4.1 Chloride 101.2 Carbon Dioxide 26 Anion Gap 18 BUN 20 Creatinine 5.1 H Estimated GFR 16 BUN/Creatinine Ratio 4 Glucose 156 H POC Glucose 131 H Calcium 8.6 09/08/19 09/08/19 09/08/19 09:42 12:26 13:50 WBC RBC Hgb 9.9 L Hct 31.1 L MCV MCH MCHC RDW Plt Count Lymph % (Auto) [place] % (Auto) Eos % (Auto) Baso % (Auto) Lymph # [place] # Eos # Baso # Seg Neutrophils % Seg Neutrophils # Sodium Potassium Chloride Carbon Dioxide Anion Gap BUN Creatinine Estimated GFR BUN/Creatinine Ratio Glucose POC Glucose 160 H 169 H Calcium
[2019-09-08] MEDS: LABETALOL 100 MG TAB PO SCH ×2 (16:42→22:49)
[2019-09-08] MEDS ORDERED: PROMETHAZINE 25 MG RECT SUPP PR ONE (23:50)
[2019-09-08] MEDS ORDERED: ACETAMINOPHEN 325 MG RECT SUPP PR PRN (23:51)
[2019-09-09] MEDS: METOCLOPRAMIDE 10 MG/2 ML INJ IV SCH ×5 (00:20→23:08)
[2019-09-09] MEDS ORDERED: cloNIDine TTS 0.3 MG/24 HR PATCH TD SCH (01:00)
[2019-09-09] MEDS ORDERED: PROMETHAZINE 25 MG RECT SUPP PR PRN (05:19)
[2019-09-09] MEDS: LABETALOL 100 MG TAB PO SCH ×2 (06:53→13:10)
[2019-09-09] MEDS: INSULIN LISPRO 100 UNIT/ML SUB-Q SCH ×4 (07:30→23:10)
--- NOTE | 2019-09-09 07:44 | Progress Note ---
Assessment and Plan Assessment: * End stage renal disease * Hypertension - uncontrolled * Type II DM * Coffee ground emesis --Hx of ulcerative esophagitis * Anemia secondary to ESRD vs ABL Plan: * Hold dialysis today * Will plan for HD tomorrow * GI following * Glycemic control per primary team * Continue antiHTN medications - note addition of Clonidine patch today * Epogen TIW prn * Outpatient dialysis clinic placement in progress Subjective Date of service: 09/09/19 Principal diagnosis: ESRD, Interval history: Patient arrived to dialysis this AM vomiting and diaphoretic. MET called. Patient returned to room. Presently, patient complains of abdominal pain. He denies melena/BRBPR Objective - Vital Signs Vital signs: Vital Signs - 12hr 09/08/19 09/09/19 09/09/19 22:00 00:30 00:49 Temperature 100.1 F H Pulse Rate 111 H Pulse Rate [ 111 H Left Radial] Respiratory 24 Rate Blood Pressure 212/116 O2 Sat by Pulse 100 Oximetry - General Appearance General appearance: well-developed, well-nourished EENT: ATNC Respiratory: Present: Clear to Ascultation Cardiology: regular, S1S2 Gastrointestinal: normal, no tenderness, no distended Integumentary: no rash, warm and dry Musculoskeletal: other (no edema) Psychiatric: cooperative - Lab 09/09/19 09:29 09/09/19 09:29 Most recent lab results Calcium 8.6 mg/dL (8.4-10.2) 09/08/19 09:40 Phosphorus 5.70 mg/dL (2.5-4.5) H 08/23/19 08:55 Magnesium 1.80 mg/dL (1.7-2.3) 08/22/19 14:12 Urine Creatinine 56.0 mg/dL (0.1-20.0) H 08/24/19 15:16 Medications & Allergies - Medications Allergies/Adverse Reactions: Allergies No Known Allergies Allergy (Verified 11/21/18 17:51) Home Medications: Home Medications Medication Instructions Recorded Confirmed Last Taken Type ALBUTEROL Inhaler (OR & NICU) 1 puff IH Q4H PRN 08/21/19 08/21/19 Unknown History [Proair] Carvedilol [Coreg] 25 mg PO Q12H 08/21/19 08/21/19 Unknown History Furosemide [Lasix TAB] 40 mg PO BID 08/21/19 08/21/19 Unknown History Lisinopril [Zestril] 5 mg PO QDAY 08/21/19 08/21/19 Unknown History Metoclopramide [Reglan ORAL LIQ] 10 mg PO QID 08/21/19 08/21/19 Unknown History Pantoprazole [Protonix TAB] 40 mg PO BIDAC 08/21/19 08/21/19 Unknown History hydrALAZINE [Apresoline] 25 mg PO Q8HR 08/21/19 08/21/19 Unknown History Active Medications: Generic Name Dose Route Start Last Admin Trade Name Freq PRN Reason Stop Dose Admin Acetaminophen 325 mg 09/08/19 23:51 09/09/19 00:31 Tylenol TN 325 mg Q6H PRN Administration Fever >101 Albuterol 2.5 mg 08/22/19 00:01 Proventil IH Q4HRT PRN Shortness Of Breath Amlodipine Besylate 10 mg 09/08/19 13:00 09/08/19 13:42 Amlodipine PO Not Given QDAY KESHIA Clonidine HCl 0.3 mg 09/09/19 01:00 09/09/19 00:30 Catapres-Tts Patch TD 0.3 mg We KESHIA Administration Epoetin Wale 20,000 unit 09/02/19 15:00 09/04/19 12:36 Procrit IV 20,000 unit BRENDAN PRN Administration hemodialysis Hydralazine HCl 20 mg 08/22/19 12:29 09/08/19 12:32 Apresoline IV 20 mg Q4H PRN Administration SBP>160 or DBP>110 Sodium Chloride 100 mls @ 999 mls/hr 09/02/19 12:47 Nacl 0.9% IV BRENDAN PRN Hypotension Sodium Chloride 1,000 mls @ 50 mls/hr 09/08/19 10:00 09/08/19 10:10 Nacl 0.9% 1000 Ml IV 50 mls/hr DIRECT KESHIA Administration Insulin Glargine 13 units 09/03/19 16:30 09/08/19 09:43 Lantus SUB-Q Not Given QAMDIAB [facility] Insulin Human Lispro 0 unit 08/22/19 22:00 09/08/19 22:48 Humalog SUB-Q Not Given ACHS [facility] Protocol Labetalol HCl 100 mg 09/08/19 14:00 09/09/19 06:53 Labetalol PO Not Given Q8HR [facility] Losartan Potassium 100 mg 08/25/19 10:00 09/08/19 12:31 Cozaar PO Not Given QDAY KESHIA Metoclopramide HCl 5 mg 09/08/19 11:30 09/09/19 00:20 Reglan IV Not Given ACHS [facility] Ondansetron HCl 4 mg 09/08/19 10:46 09/08/19 16:44 Zofran IV 4 mg Q4H PRN Administration Nausea And Vomiting Oxycodone/Acetaminophen 1 tab 08/24/19 20:39 09/06/19 12:08 Percocet 5/325 PO 1 tab Q6H PRN Administration Pain, Moderate (4-6) Pantoprazole Sodium 40 mg 09/08/19 22:00 09/08/19 22:49 Protonix PO Not Given BID [facility] Promethazine HCl 25 mg 09/09/19 05:19 Phenergan TN Q6H PRN Nausea And Vomiting
[2019-09-09] MEDS: INSULIN GLARGINE 100 UNITS/ML SUB-Q SCH (08:00)
[2019-09-09] MEDS ORDERED: MORPHINE 2 MG/1 ML INJ IV ONE (08:45)
[2019-09-09] MEDS ORDERED: LABETALOL 20 MG/4 ML INJ IV ONE ×2 (08:55→16:00)
[2019-09-09] MEDS ORDERED: MORPHINE 2 MG/1 ML INJ ONE ×2 (08:56)
[2019-09-09 10:12] LABS: Hematocrit 28.7 % (35.5-45.6); Hemoglobin 9.1 gm/dl (11.8-15.2)
[2019-09-09] MEDS: PANTOPRAZOLE 40 MG TAB PO SCH (10:19)
[2019-09-09] MEDS: amLODIPine 10 MG TAB PO SCH (10:19)
[2019-09-09] MEDS: LOSARTAN 50 MG TAB PO SCH (10:19)
[2019-09-09 10:35] LABS: Calcium 8.5 mg/dL (8.4-10.2)
[2019-09-09 10:55] LABS: Chol/HDL Ratio 3.39 %
[2019-09-09] MEDS ORDERED: SODIUM CHLORIDE 0.9% 100 ML IV PRN (11:09)
--- NOTE | 2019-09-09 11:28 | Gastroenterology Progress Note ---
<EZEQUIEL SMITH - Last Filed: 09/09/19 12:02> Assessment and Plan 1.persistent N/V 2.coffee ground emesis -H/H 9.1/28.7- stable -continue to monitor and transfuse as needed -multiple prior EGDs (x 2 this year) for similar symptoms showing ulcerative esophagitis, which is most likely the etiology of CGE (No hematemesis, melena, o r hematochezia). N/V etiology likely multifactorial (gastroparesis due to uncontrolled DM vs functional component vs other) -no plan for repeat EGD unless drop in H/H or overt bleeding develops -continue high dose PPI -avoid narcotics for this may exacerbate symptoms -start on trial of Ativan for vomiting -optimize glycemic control -continue supportive care -will follow 3.DM 4.ESRD Subjective Date of service: 09/09/19 Principal diagnosis: CGE, N/V Interval history: Patient with code Met this am after going for hemodialysis 2/2 hypertension with associated CP, continued N/V, and diaphoretic. Objective - Constitutional Vitals: Temp Pulse Resp BP Pulse Ox 100.1 F H 111 H 24 212/116 100 09/09/19 00:49 09/09/19 00:30 09/08/19 22:00 09/09/19 00:30 09/08/19 22:00 General appearance: no acute distress - Respiratory Respiratory effort: normal - Cardiovascular Rhythm: other (tachycardia) - Gastrointestinal General gastrointestinal: Present: soft, tender (slightly TTP), non-distended, normal bowel sounds - Neurologic Neurological: alert and oriented x3 - Labs CBC & Chem 7: 09/09/19 09:29 09/09/19 09:29 Labs: Laboratory Results - last 24 hr 09/08/19 09/08/19 09/08/19 12:26 13:50 16:46 Hgb 9.9 L Hct 31.1 L Sodium Potassium Chloride Carbon Dioxide Anion Gap BUN Creatinine Estimated GFR BUN/Creatinine Ratio Glucose POC Glucose 169 H 218 H Calcium Troponin T Triglycerides Cholesterol LDL Cholesterol Direct HDL Cholesterol Cholesterol/HDL Ratio 09/08/19 09/09/19 09/09/19 21:20 05:15 08:01 Hgb Hct Sodium Potassium Chloride Carbon Dioxide Anion Gap BUN Creatinine Estimated GFR BUN/Creatinine Ratio Glucose POC Glucose 297 H 293 H 269 H Calcium Troponin T Triglycerides Cholesterol LDL Cholesterol Direct HDL Cholesterol Cholesterol/HDL Ratio 09/09/19 09/09/19 09/09/19 09:14 09:29 09:29 Hgb 9.1 L Hct 28.7 L Sodium 141 Potassium 4.8 Chloride 100.7 Carbon Dioxide 22 Anion Gap 23 BUN 35 H Creatinine 7.3 H Estimated GFR 11 BUN/Creatinine Ratio 5 Glucose 304 H POC Glucose 311 H Calcium 8.5 Troponin T Triglycerides Cholesterol LDL Cholesterol Direct HDL Cholesterol Cholesterol/HDL Ratio 09/09/19 09:29 Hgb Hct Sodium Potassium Chloride Carbon Dioxide Anion Gap BUN Creatinine Estimated GFR BUN/Creatinine Ratio Glucose POC Glucose Calcium Troponin T 0.387 H* Triglycerides 85 Cholesterol 231 H LDL Cholesterol Direct 172 H HDL Cholesterol 68 H Cholesterol/HDL Ratio 3.39 <ULISES HAMLIN R - Last Filed: 09/09/19 15:59> Assessment and Plan Pt seen and plan as noted. Minimize narcotics. Objective - Constitutional Vitals: Temp Pulse Resp BP Pulse Ox 100.1 F H 111 H 24 212/116 100 09/09/19 00:49 09/09/19 00:30 09/08/19 22:00 09/09/19 00:30 09/08/19 22:00 - Labs CBC & Chem 7: 09/09/19 09:29 09/09/19 09:29 Labs: Laboratory Results - last 24 hr 09/08/19 09/08/19 09/09/19 16:46 21:20 05:15 Hgb Hct Sodium Potassium Chloride Carbon Dioxide Anion Gap BUN Creatinine Estimated GFR BUN/Creatinine Ratio Glucose POC Glucose 218 H 297 H 293 H Calcium Troponin T Triglycerides Cholesterol LDL Cholesterol Direct HDL Cholesterol Cholesterol/HDL Ratio 09/09/19 09/09/19 09/09/19 08:01 09:14 09:29 Hgb 9.1 L Hct 28.7 L Sodium Potassium Chloride Carbon Dioxide Anion Gap BUN Creatinine Estimated GFR BUN/Creatinine Ratio Glucose POC Glucose 269 H 311 H Calcium Troponin T Triglycerides Cholesterol LDL Cholesterol Direct HDL Cholesterol Cholesterol/HDL Ratio 09/09/19 09/09/19 09/09/19 09:29 09:29 11:40 Hgb Hct Sodium 141 Potassium 4.8 Chloride 100.7 Carbon Dioxide 22 Anion Gap 23 BUN 35 H Creatinine 7.3 H Estimated GFR 11 BUN/Creatinine Ratio 5 Glucose 304 H POC Glucose 298 H Calcium 8.5 Troponin T 0.387 H* Triglycerides 85 Cholesterol 231 H LDL Cholesterol Direct 172 H HDL Cholesterol 68 H Cholesterol/HDL Ratio 3.39
[2019-09-09] MEDS: PANTOPRAZOLE 40 MG INJ IV SCH ×2 (13:05→23:08)
--- NOTE | 2019-09-09 14:04 | Progress Note ---
Assessment and Plan /Low grade temp - order blood cx, temp spiked one time, clinically monitor for now /-Gastroparesis with intractable N/V not tolerating PO cont reglan scheduled, ativan po /Elevated troponin - likely NSTEMI type 2 - will not put AC for GI bleed - place on asp. statin and consult cardiology /-Upper GI bleed; intermittent with coffee ground emesis Evaluated by GI , stable No indication for EGD, op follow-up We will change Protonix BID, and Reglan scheduled Cont to monitor H&H /-ESRD: Started on hemodilysis HD per schedule MWF Awaiting outpatient HD placement /-Metabolic acidosis- Resolved; HD per schedule /-IDDM (insulin dependent diabetes mellitus) Accu checks Qac AND Lantus, A1c 5.5 / Hypertension; moderate control Optimize BP meds as needed /-History of bronchial Asthma- stable Albuterol MDI qid prn /-Anemia due to acute blood loss: from GI bleed and ESRD s/p 1 Unit PRBC H&H improved , nonicteric /-Hypernatremia-RESOLVED /-Severe Malnutrition/hypoalbuminemia supportive care supportive care , Dietitian consult /-DVT prophylaxis; SCD's No pharmacologic anticoagulation In view of GI bleeding and anemia Disposition; awaiting outpatient HD placement Brief History Patient is 33-year-old -[place] male presents to the emergency department via EMS from home with complaint of abdominal pain, nausea, vomiting and vomiting of blood that has been going on for 3 days prior to presentation. The patient does have a history of ulcerative esophagitis, gastroparesis, CKD stage 5 not on without hemodialysis, diabetes, hypertension. 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 He was seen and evaluated in ED and admitted. he was evaluated by Nephrology and GI Physician. Conservative management was recommended by GI Physician since he has had EGD X 2 this year. Nephrology initiated hemodialysis, HD cath placed on 08/24/19, awaiting outpatient HD placement Hospitalist Physical General appearance: Present: no acute distress - EENT Eyes: Present: PERRL, EOM intact - Neck Neck: Present: supple, normal ROM - Respiratory Respiratory effort: normal Respiratory: bilateral: diminished, negative: rales, rhonchi, wheezing - Cardiovascular Rhythm: regular Heart Sounds: Present: S1 & S2 - Extremities Extremities: no ischemia, No edema - Abdominal General gastrointestinal: soft, non-tender, non-distended, normal bowel sounds - Integumentary Integumentary: Present: clear, warm - Psychiatric Psychiatric: appropriate mood/affect, cooperative - Neurologic Neurologic: CNII-XII intact, moves all extremities Subjective Date of service: 09/09/19 Principal diagnosis: ESRD, Interval history: Patient seen and examined. Medical records and medication list reviewed. Patient with code Met this am after going for hemodialysis 2/2 hypertension with associated CP, continued N/V, and diaphoretic - consulted cardiology spiked low grade temp last night - cx ordered Discussed plan of care at bedside with patient and RN. Objective - Labs CBC & Chem 7: 09/10/19 05:35 09/09/19 09:29 Labs: Abnormal lab results 09/08/19 09/08/19 09/08/19 Range/Units 13:50 16:46 21:20 Hgb 9.9 L (11.8-15.2) gm/dl Hct 31.1 L (35.5-45.6) % BUN (9-20) mg/dL Creatinine (0.8-1.5) mg/dL Glucose (75-100) mg/dL POC Glucose 218 H 297 H (70-105) Troponin T (0.00-0.029) ng/mL Cholesterol (50-199) mg/dL LDL Cholesterol Direct (50-130) mg/dL HDL Cholesterol (40-59) mg/dL 09/09/19 09/09/19 09/09/19 Range/Units 05:15 08:01 09:14 Hgb (11.8-15.2) gm/dl Hct (35.5-45.6) % BUN (9-20) mg/dL Creatinine (0.8-1.5) mg/dL Glucose (75-100) mg/dL POC Glucose 293 H 269 H 311 H (70-105) Troponin T (0.00-0.029) ng/mL Cholesterol (50-199) mg/dL LDL Cholesterol Direct (50-130) mg/dL HDL Cholesterol (40-59) mg/dL 09/09/19 09/09/19 09/09/19 Range/Units 09:29 09:29 09:29 Hgb 9.1 L (11.8-15.2) gm/dl Hct 28.7 L (35.5-45.6) % BUN 35 H (9-20) mg/dL Creatinine 7.3 H (0.8-1.5) mg/dL Glucose 304 H (75-100) mg/dL POC Glucose (70-105) Troponin T 0.387 H* (0.00-0.029) ng/mL Cholesterol 231 H (50-199) mg/dL LDL Cholesterol Direct 172 H (50-130) mg/dL HDL Cholesterol 68 H (40-59) mg/dL 09/09/19 Range/Units 11:40 Hgb (11.8-15.2) gm/dl Hct (35.5-45.6) % BUN (9-20) mg/dL Creatinine (0.8-1.5) mg/dL Glucose (75-100) mg/dL POC Glucose 298 H (70-105) Troponin T (0.00-0.029) ng/mL Cholesterol (50-199) mg/dL LDL Cholesterol Direct (50-130) mg/dL HDL Cholesterol (40-59) mg/dL
--- NOTE | 2019-09-09 14:16 | Consultation ---
History of Present Illness Consult date: 09/09/19 Requesting physician: ANASTACIO CEDEÑO Consult reason: elevated troponin History of present illness: The patient is 33-year-old -[place] male with a past medical history of CKD now requiring HD, HTN, DM, gastroparesis, ulcerative esophagitis. He presented to the emergency department via EMS from home on 08/22/2019 with complaint of abdominal pain, nausea, vomiting and vomiting of blood that has been going on for 3 days prior to presentation. 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 He was seen and evaluated in ED and admitted. he was evaluated by Nephrology and GI Physician. Conservative management was recommended by GI Physician since he has had EGD X 2 this year. Nephrology ini tiated hemodialysis, HD cath placed on 08/24/19, awaiting outpatient HD placement. He was noted to have elevated troponin and thus cardiology has been consulted. Pt denies any occurrence of chest pain, palpitations, diaphoresis, dizziness or syncope. Past History Past Medical History: diabetes, hypertension, renal failure Past Surgical History: No surgical history Social history: no significant social history Family history: no significant family history Medications and Allergies Allergies Allergy/AdvReac Type Severity Reaction Status Date / Time No Known Allergies Allergy Verified 11/21/18 17:51 Home Medications Medication Instructions Recorded Confirmed Last Taken Type ALBUTEROL Inhaler (OR & NICU) 1 puff IH Q4H PRN 08/21/19 08/21/19 Unknown History [Proair] Carvedilol [Coreg] 25 mg PO Q12H 08/21/19 08/21/19 Unknown History Furosemide [Lasix TAB] 40 mg PO BID 08/21/19 08/21/19 Unknown History Lisinopril [Zestril] 5 mg PO QDAY 08/21/19 08/21/19 Unknown History Metoclopramide [Reglan ORAL LIQ] 10 mg PO QID 08/21/19 08/21/19 Unknown History Pantoprazole [Protonix TAB] 40 mg PO BIDAC 08/21/19 08/21/19 Unknown History hydrALAZINE [Apresoline] 25 mg PO Q8HR 08/21/19 08/21/19 Unknown History Active Meds: Active Medications Acetaminophen (Tylenol) 325 mg NM Q6H PRN PRN Reason: Fever >101 Last Admin: 09/09/19 00:31 Dose: 325 mg Documented by: Albuterol (Proventil) 2.5 mg IH Q4HRT PRN PRN Reason: Shortness Of Breath Amlodipine Besylate (Amlodipine) 10 mg PO QDAY [facility] Last Admin: 09/09/19 10:19 Dose: Not Given Documented by: Clonidine HCl (Catapres-Tts Patch) 0.3 mg TD We [facility] Last Admin: 09/09/19 00:30 Dose: 0.3 mg Documented by: Epoetin Wale (Procrit) 20,000 unit IV BRENDAN PRN PRN Reason: hemodialysis Last Admin: 09/04/19 12:36 Dose: 20,000 unit Documented by: Hydralazine HCl (Apresoline) 20 mg IV Q4H PRN PRN Reason: SBP>160 or DBP>110 Last Admin: 09/08/19 12:32 Dose: 20 mg Documented by: Sodium Chloride (Nacl 0.9% 1000 Ml) 1,000 mls @ 50 mls/hr IV DIRECT [facility] Last Admin: 09/08/19 10:10 Dose: 50 mls/hr Documented by: Sodium Chloride (Nacl 0.9%) 100 mls @ 999 mls/hr IV BRENDAN PRN PRN Reason: Hypotension Insulin Glargine (Lantus) 13 units SUB-Q QANJIAB [facility] Last Admin: 09/09/19 08:00 Dose: Not Given Documented by: Insulin Human Lispro (Humalog) 0 unit SUB-Q [facility]; Protocol Last Admin: 09/09/19 13:06 Dose: 6 unit Documented by: Labetalol HCl (Labetalol) 100 mg PO Q8HR [facility] Last Admin: 09/09/19 13:10 Dose: Not Given Documented by: Losartan Potassium (Cozaar) 100 mg PO QDAY [facility] Last Admin: 09/09/19 10:19 Dose: Not Given Documented by: Metoclopramide HCl (Reglan) 5 mg IV [facility] Last Admin: 09/09/19 13:05 Dose: 5 mg Documented by: Ondansetron HCl (Zofran) 4 mg IV Q4H PRN PRN Reason: Nausea And Vomiting Last Admin: 09/08/19 16:44 Dose: 4 mg Documented by: Oxycodone/Acetaminophen (Percocet 5/325) 1 tab PO Q6H PRN PRN Reason: Pain, Moderate (4-6) Last Admin: 09/06/19 12:08 Dose: 1 tab Documented by: Pantoprazole Sodium (Protonix) 40 mg IV BID [facility] Last Admin: 09/09/19 13:05 Dose: 40 mg Documented by: Promethazine HCl (Phenergan) 25 mg NM Q6H PRN PRN Reason: Nausea And Vomiting Review of Systems Constitutional: no weight loss, no weight gain, no fever, no chills, no sweats Ears, nose, mouth and throat: no ear pain, no nose pain, no sinus pressure, no sinus pain Cardiovascular: no chest pain, no orthopnea, no palpitations, no rapid/irregular heart beat, no edema, no syncope, no lightheadedness, no dyspnea on exertion Respiratory: no cough, no shortness of breath, no dyspnea on exertion, no congestion, no wheezing, no pain on inspiration Gastrointestinal: abdominal pain, nausea, vomiting, coffee ground emesis Genitourinary Male: no dysuria, no hematuria, no flank pain, no discharge, no urinary frequency, no urinary hesitancy Musculoskeletal: no neck stiffness, no neck pain, no shooting arm pain, no arm numbness/tingling, no low back pain, no shooting leg pain Integumentary: no rash, no pruritis, no redness, no sores, no wounds Neurological: no head injury, no paralysis, no weakness, no parathesias, no numbness, no tingling, no seizures, no syncope Psychiatric: no anxiety Endocrine: no cold intolerance, no heat intolerance Hematologic/Lymphatic: no easy bruising, no easy bleeding Allergic/Immunologic: no urticaria, no wheezing Physical Examination Vital Signs Temp Pulse Resp BP Pulse Ox 98.9 F 114 H 20 222/129 100 08/21/19 09:52 08/21/19 09:52 08/21/19 09:52 08/21/19 09:52 08/21/19 09:52 General appearance: no acute distress HEENT: Positive: PERRL, Normocephaly, Mucus Membranes Moist Neck: Positive: neck supple, trachea midline Cardiac: Positive: Reg Rate and Rhythm, S1/S2 Lungs: Positive: Decreased Breath Sounds Neuro: Positive: Grossly Intact Abdomen: Negative: Tender Skin: Negative: Rash Musculoskeletal: No Pain Extremities: Absent: edema Results 09/09/19 09:29 09/09/19 09:29 Lipids 09/09/19 Range/Units 09:29 Triglycerides 85 (2-149) mg/dL Cholesterol 231 H (50-199) mg/dL HDL Cholesterol 68 H (40-59) mg/dL Cholesterol/HDL Ratio 3.39 % CBC 09/09/19 Range/Units 09:29 Hgb 9.1 L (11.8-15.2) gm/dl Hct 28.7 L (35.5-45.6) % Comprehensive Metabolic Panel 09/09/19 Range/Units 09:29 Sodium 141 (137-145) mmol/L Potassium 4.8 (3.6-5.0) mmol/L Chloride 100.7 (98-107) mmol/L Carbon Dioxide 22 (22-30) mmol/L BUN 35 H (9-20) mg/dL Creatinine 7.3 H (0.8-1.5) mg/dL Glucose 304 H (75-100) mg/dL Calcium 8.5 (8.4-10.2) mg/dL - Imaging and Cardiology Echo: pending EKG: report reviewed, image reviewed EKG interpretations - Telemetry EKG Rhythm: Sinus Rhythm - EKG Sinus rhythms and dysrhythmias: sinus rhythm Assessment and Plan Pt with probable NSTEMI type II. Cont to trend Mason and f/u ECG in AM. Obtain echo. Optimize anti-hypertensive regimen - increase labetalol. Pt noted to have low grade fever overnight. Blood cultures pending. Further recs to follow per hospital course. The patient has been seen in conjunction with Dr. Matamoros who agrees with the assessment and plan of care. - Patient Problems (1) Acute on chronic renal insufficiency Current Visit: Yes Status: Acute (2) GI bleed Current Visit: Yes Status: Inactive (3) Anemia Current Visit: Yes Status: Acute Qualifiers: Other causes of anemia: chronic disease, other (4) Intractable nausea and vomiting Current Visit: Yes Status: Acute (5) Gastroparesis Current Visit: Yes Status: Chronic (6) NSTEMI (non-ST elevated myocardial infarction) Current Visit: Yes Status: Acute Plan to address problem: type II (7) HTN (hypertension) Current Visit: Yes Status: Chronic (8) T2DM (type 2 diabetes mellitus) Current Visit: Yes Status: Chronic
[2019-09-09] MEDS ORDERED: LABETALOL 100 MG TAB PO SCH (14:25)
[2019-09-09] MEDS: SODIUM CHLORIDE 0.9% 1000 ML 1,000 ML IV SCH (15:46)
[2019-09-09] MEDS: LABETALOL 200 MG TAB PO SCH ×2 (15:49→23:11)
[2019-09-09] MEDS: LORazepam 2 MG/ML VIAL IV SCH (17:25)
[2019-09-10] MEDS: LORazepam 2 MG/ML VIAL IV SCH ×2 (01:47→12:41)
[2019-09-10] MEDS: LABETALOL 200 MG TAB PO SCH ×3 (06:03→16:38)
[2019-09-10 06:22] LABS: Hematocrit 24.6 % (35.5-45.6); Hemoglobin 7.9 gm/dl (11.8-15.2); Mean Corpuscular HGB Conc 32 % (32-34); Mean Corpuscular Volume 84 fl (84-94); Platelet Count 366 K/mm3 (140-440); Red Blood Count 2.94 M/mm3 (3.65-5.03); Red Cell Distribution Width 14.8 % (13.2-15.2)
[2019-09-10] MEDS: METOCLOPRAMIDE 10 MG/2 ML INJ IV SCH ×3 (08:01→17:44)
[2019-09-10] MEDS: INSULIN LISPRO 100 UNIT/ML SUB-Q SCH ×4 (09:52→17:32)
[2019-09-10] MEDS: LOSARTAN 50 MG TAB PO SCH ×2 (10:00→16:38)
--- NOTE | 2019-09-10 10:29 | Progress Note ---
Assessment and Plan Pt with probable NSTEMI type II. Echo reviewed - EF 45-50%, mod LVH, impaired relaxation, trivial pericardial effusion. BPs improved. Currently stable cardiac status. Pt denies any current cardiac complaints. Nothing further to add from cardiac perspective at this time. Will sign off. Recommend follow up in our office with Dr. Matamoros within 1-2 weeks ([phone]). The patient has been seen in conjunction with Dr. Matamoros who agrees with the assessment and plan of care. - Patient Problems (1) Acute on chronic renal insufficiency Current Visit: Yes Status: Acute (2) GI bleed Current Visit: Yes Status: Inactive (3) Anemia Current Visit: Yes Status: Acute Qualifiers: Other causes of anemia: chronic disease, other (4) Intractable nausea and vomiting Current Visit: Yes Status: Acute (5) Gastroparesis Current Visit: Yes Status: Chronic (6) NSTEMI (non-ST elevated myocardial infarction) Current Visit: Yes Status: Acute Plan to address problem: type II (7) HTN (hypertension) Current Visit: Yes Status: Chronic (8) T2DM (type 2 diabetes mellitus) Current Visit: Yes Status: Chronic Subjective Date of service: 09/10/19 Principal diagnosis: ESRD, Interval history: pt seen in dialysis, more alert today, no current complaints. Objective Last Vital Signs Temp 98.6 F 09/10/19 09:48 Pulse 84 09/10/19 11:30 Resp 18 09/10/19 09:48 BP 117/67 09/10/19 11:30 Pulse Ox 97 09/10/19 09:48 - Physical Examination General: No Apparent Distress HEENT: Positive: PERRL, Normocephaly, Mucus Membranes Moist Neck: Positive: neck supple, trachea midline Cardiac: Positive: Reg Rate and Rhythm, S1/S2 Lungs: Positive: Decreased Breath Sounds Neuro: Positive: Grossly Intact Abdomen: Negative: Tender Skin: Negative: Rash Musculoskeletal: No Pain Extremities: Absent: edema - Labs and Meds Lipids 09/09/19 Range/Units 09:29 Triglycerides 85 (2-149) mg/dL Cholesterol 231 H (50-199) mg/dL HDL Cholesterol 68 H (40-59) mg/dL Cholesterol/HDL Ratio 3.39 % CBC 09/10/19 Range/Units 05:35 WBC 8.8 (4.5-11.0) K/mm3 RBC 2.94 L (3.65-5.03) M/mm3 Hgb 7.9 L (11.8-15.2) gm/dl Hct 24.6 L (35.5-45.6) % Plt Count 366 (140-440) K/mm3 Comprehensive Metabolic Panel 09/09/19 Range/Units 09:29 Sodium 141 (137-145) mmol/L Potassium 4.8 (3.6-5.0) mmol/L Chloride 100.7 (98-107) mmol/L Carbon Dioxide 22 (22-30) mmol/L BUN 35 H (9-20) mg/dL Creatinine 7.3 H (0.8-1.5) mg/dL Glucose 304 H (75-100) mg/dL Calcium 8.5 (8.4-10.2) mg/dL - Imaging and Cardiology EKG: report reviewed, image reviewed Echo: pending - Telemetry EKG Rhythm: Sinus Rhythm - EKG Sinus rhythms and dysrhythmias: sinus rhythm
--- NOTE | 2019-09-10 11:15 | Gastroenterology Progress Note ---
<EZEQUIEL SMITH - Last Filed: 09/10/19 11:15> Assessment and Plan 1.persistent N/V 2.coffee ground emesis -H/H 7.9/24.6-trend down -continue to monitor H/H and transfuse as needed -multiple prior EGDs (x 2 this year) for similar symptoms showing ulcerative esophagitis, which is most likely the etiology of CGE (No hematemesis, melena, or hematochezia). N/V etiology likely multifactorial (gastroparesis due to uncontrolled DM vs functional component vs other) -clinically, patient reports feeling better this am with N/V now improved. Tolerating liquids. -no plan for repeat EGD at this time unless overt bleeding develops -continue high dose PPI -avoid narcotics for this may exacerbate symptoms -continue on short term/low dose Ativan for vomiting -optimize glycemic control -advance diet as tolerated -continue supportive care -If tolerates advanced diet and H/H stable in am, patient okay to be d/c per GI standpoint on PPI with f/u in clinic 3.DM 4.ESRD Subjective Date of service: 09/10/19 Principal diagnosis: ESRD, Interval history: Patient resting in bed receiving dialysis this am w/o acute distress. Reports feeling better with now N/V improved (no episodes of vomiting this am). Tolerating liquids. Objective - Constitutional Vitals: Temp Pulse Resp BP Pulse Ox 98.6 F 86 18 119/74 97 09/10/19 09:48 09/10/19 11:00 09/10/19 09:48 09/10/19 11:00 09/10/19 09:48 General appearance: no acute distress - Respiratory Respiratory effort: normal - Cardiovascular Rhythm: regular - Gastrointestinal General gastrointestinal: Present: soft, non-distended, normal bowel sounds - Neurologic Neurological: alert and oriented x3 - Labs CBC & Chem 7: 09/10/19 05:35 09/09/19 09:29 Labs: Laboratory Results - last 24 hr 09/09/19 09/09/19 09/09/19 11:40 16:35 21:00 WBC RBC Hgb Hct MCV MCH MCHC RDW Plt Count POC Glucose 298 H 148 H 330 H Troponin T 09/09/19 09/09/19 09/10/19 21:52 23:20 05:35 WBC RBC Hgb Hct MCV MCH MCHC RDW Plt Count POC Glucose Troponin T 0.372 H* 0.375 H* 0.404 H* 09/10/19 09/10/19 05:35 07:58 WBC 8.8 RBC 2.94 L Hgb 7.9 L Hct 24.6 L MCV 84 MCH 27 L MCHC 32 RDW 14.8 Plt Count 366 POC Glucose 207 H Troponin T <ULISES HAMLIN - Last Filed: 09/10/19 13:34> Assessment and Plan Doing well, on dialysis. Reduce Ativan. Objective - Constitutional Vitals: Temp Pulse Resp BP Pulse Ox 98.6 F 68 18 109/68 97 09/10/19 09:48 09/10/19 12:00 09/10/19 09:48 09/10/19 12:00 09/10/19 09:48 - Labs CBC & Chem 7: 09/10/19 05:35 09/09/19 09:29 Labs: Laboratory Results - last 24 hr 09/09/19 09/09/19 09/09/19 16:35 21:00 21:52 WBC RBC Hgb Hct MCV MCH MCHC RDW Plt Count POC Glucose 148 H 330 H Troponin T 0.372 H* 09/09/19 09/10/19 09/10/19 23:20 05:35 05:35 WBC 8.8 RBC 2.94 L Hgb 7.9 L Hct 24.6 L MCV 84 MCH 27 L MCHC 32 RDW 14.8 Plt Count 366 POC Glucose Troponin T 0.375 H* 0.404 H* 09/10/19 07:58 WBC RBC Hgb Hct MCV MCH MCHC RDW Plt Count POC Glucose 207 H Troponin T
[2019-09-10] MEDS ORDERED: SODIUM CHLORIDE*PRIMING MACHINE ONLY FOR DIALYSIS MC ONE (11:20)
[2019-09-10] MEDS: amLODIPine 10 MG TAB PO SCH ×2 (12:41→14:39)
[2019-09-10] MEDS: EPOETIN ALFA 20,000 UNIT/1 ML INJ IV PRN (13:19)
[2019-09-10] MEDS ORDERED: LORazepam 2 MG/ML VIAL IV SCH (13:45)
--- NOTE | 2019-09-10 13:55 | Discharge Summary ---
Providers - Providers Date of Admission: 08/22/19 12:33 Date of discharge: 09/10/19 Attending physician: ANASTACIO CEDEÑO 08/21/19 11:12 Midline [Consult to PICC Line RN] [CONS] Stat Reason For Exam: IV Type Line:: Midline 08/21/19 13:56 Consult to Physician [CONS] Routine Comment: Consulting Provider: RJ RICHARDSON Physician Instructions: Reason For Exam: Upper GI bleed, hematemesis 08/21/19 23:50 Consult to Physician [CONS] Routine Comment: Consulting Provider: NICK ESTEBAN Physician Instructions: Reason For Exam: CKD/ESRD 08/22/19 00:19 Consult to Dietitian/Nutrition [CONS] Routine Physician Instructions: Reason For Exam: Reason for Consult: Nutrition Recommendations Reason for Consult: Malnutrition 08/24/19 06:00 Consult to Physician [CONS] Routine Comment: Consulting Provider: ERNESTINA REYES Physician Instructions: Reason For Exam: tunelled hd cath insertion 09/09/19 11:49 Consult to Physician [CONS] Routine Comment: Consulting Provider: MELODY CORTEZ Physician Instructions: Reason For Exam: ELEVATED TROPONIN Primary care physician: HIDE MILL WORKER Hospitalization Condition: Fair Hospital course: Patient is 33-year-old -Omani male presents to the emergency department via EMS from home with complaint of abdominal pain, nausea, vomiting and vomiting of blood that has been going on for 3 days prior to presentation. The patient does have a history of ulcerative esophagitis, gastroparesis, CKD stage 5 not on without hemodialysis, diabetes, hypertension. 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 He was seen and evaluated in ED and admitted. he was evaluated by Nephrology and GI Physician. Conservative management was recommended by GI Physician since he has had EGD X 2 this year. Nephrology initiated hemodialysis, HD cath placed on 08/24/19, awaiting outpatient HD placement Discharge diagnosis and mx: /Low grade temp - ordered blood cx, temp spiked one time on 09/09/19, clinically monitored /-Gastroparesis with intractable N/V Improved with reglan scheduled, ativan po, as needed zofran /Elevated troponin - likely NSTEMI type 2 - Not placed on AC for GI bleed - placed on asp. statin and consulted cardiology recommended medical Mx /-Upper GI bleed; intermittent with coffee ground emesis Evaluated by GI , stable No indication for EGD, op follow-up We will change Protonix BID, and Reglan scheduled Cont to monitor H&H /-ESRD: Started on hemodilysis HD per schedule MWF Awaiting outpatient HD placement /-Metabolic acidosis- Resolved; HD per schedule /-IDDM (insulin dependent diabetes mellitus) Accu checks Qac AND Lantus, A1c 5.5 / Hypertension; moderate control Optimize BP meds as needed /-History of bronchial Asthma- stable Albuterol MDI qid prn /-Anemia due to acute blood loss: from GI bleed and ESRD s/p 1 Unit PRBC H&H improved , nonicteric /-Hypernatremia-RESOLVED /-Severe Malnutrition/hypoalbuminemia supportive care supportive care , Dietitian consult /-DVT prophylaxis; SCD's No pharmacologic anticoagulation In view of GI bleeding and anemia Disposition; awaiting outpatient HD placement Hospitalist Physical General appearance: Present: no acute distress - EENT Eyes: Present: PERRL, EOM intact - Neck Neck: Present: supple, normal ROM - Respiratory Respiratory effort: normal Respiratory: bilateral: diminished, negative: rales, rhonchi, wheezing - Cardiovascular Rhythm: regular Heart Sounds: Present: S1 & S2 - Extremities Extremities: no ischemia, No edema - Abdominal General gastrointestinal: soft, non-tender, non-distended, normal bowel sounds - Integumentary Integumentary: Present: clear, warm - Psychiatric Psychiatric: appropriate mood/affect, cooperative - Neurologic Neurologic: CNII-XII intact, moves all extremities Disposition: TO HOME OR SELFCARE Time spent for discharge: 34 minutes Core Measure Documentation - Palliative Care Palliative Care/ Comfort Measures: Not Applicable - Core Measures Any of the following diagnoses?: history only Exam - Constitutional Vitals: Temp Pulse Resp BP Pulse Ox 98.6 F 85 18 141/92 97 09/10/19 09:48 09/10/19 13:26 09/10/19 09:48 09/10/19 13:26 09/10/19 09:48 Plan Activity: fall precautions Weight Bearing Status: Weight Bear as Tolerated Diet: renal Special Instructions: restrict fluid intake to (1.2L daily), record daily BP diary Follow up with: CLEOPATRA HALL MD [Primary Care Provider] - 3-5 Days BRENDA MORFIN MD [Staff Physician] - 7 Days Forms: Accompanied Note Prescriptions: amLODIPine 10 mg PO QDAY #30 tablet LORazepam [Ativan] 0.5 mg PO Q6H PRN #10 tablet PRN Reason: N/V Unrelieved By Santiago Losartan [Cozaar] 100 mg PO QDAY #30 tablet Labetalol [Labetalol 200mg TAB] 200 mg PO Q8HR #90 tablet Insulin Glargine [Lantus VIAL] 13 units SUB-Q QAMDIAB 30 Days Pantoprazole [Protonix TAB] 40 mg PO BIDAC #60 Metoclopramide [Reglan ORAL LIQ] 10 mg PO QID 30 Days
[2019-09-10] MEDS: INSULIN GLARGINE 100 UNITS/ML SUB-Q SCH (14:31)
[2019-09-10] MEDS: PANTOPRAZOLE 40 MG INJ IV SCH (14:32)
[2019-09-10 18:08] VITALS: BP 122/70
== END 2019-09-10 18:58 | disposition home or self-care (01) | DRG 673 ==
LOC: ED 09:31 → 3A 13:12 → OBSVTOIN 08-22 12:33
PROVIDERS: ADMIT Internal Medicine; ATTEND Internal Medicine
PROC: 30233N1 Transfusion of Nonautologous Red Blood Cells into Peripheral Vein, Percutaneous Approach (ICD-10-PCS; 2019-08-22)
PROC: 0JH63XZ Insertion of Tunneled Vascular Access Device into Chest Subcutaneous Tissue and Fascia, Percutaneous Approach (ICD-10-PCS; principal; 2019-08-24)
PROC: 02H633Z Insertion of Infusion Device into Right Atrium, Percutaneous Approach (ICD-10-PCS; 2019-08-24)
PROC: B548ZZA Ultrasonography of Superior Vena Cava, Guidance (ICD-10-PCS; 2019-08-24)
PROC: B5181ZA Fluoroscopy of Superior Vena Cava using Low Osmolar Contrast, Guidance (ICD-10-PCS; 2019-08-24)
PROC: 5A1D70Z Performance of Urinary Filtration, Intermittent, Less than 6 Hours Per Day (ICD-10-PCS; 2019-08-24)
PROC: 5A1D70Z Performance of Urinary Filtration, Intermittent, Less than 6 Hours Per Day (ICD-10-PCS; 2019-08-26)
PROC: 5A1D70Z Performance of Urinary Filtration, Intermittent, Less than 6 Hours Per Day (ICD-10-PCS; 2019-08-28)
PROC: 5A1D70Z Performance of Urinary Filtration, Intermittent, Less than 6 Hours Per Day (ICD-10-PCS; 2019-08-31)
PROC: 5A1D70Z Performance of Urinary Filtration, Intermittent, Less than 6 Hours Per Day (ICD-10-PCS; 2019-09-02)
PROC: 5A1D70Z Performance of Urinary Filtration, Intermittent, Less than 6 Hours Per Day (ICD-10-PCS; 2019-09-04)
PROC: 5A1D70Z Performance of Urinary Filtration, Intermittent, Less than 6 Hours Per Day (ICD-10-PCS; 2019-09-07)
PROC: 5A1D70Z Performance of Urinary Filtration, Intermittent, Less than 6 Hours Per Day (ICD-10-PCS; 2019-09-10)
DX: N17.9 Acute kidney failure, unspecified (principal); E43 Unspecified severe protein-calorie malnutrition; I21.A1 Myocardial infarction type 2; K92.2 Gastrointestinal hemorrhage, unspecified; I12.0 Hypertensive chronic kidney disease with stage 5 chronic kidney disease or end stage renal disease; E87.0 Hyperosmolality and hypernatremia; D62 Acute posthemorrhagic anemia; E87.2 Acidosis; D63.1 Anemia in chronic kidney disease; E11.22 Type 2 diabetes mellitus with diabetic chronic kidney disease; N18.6 End stage renal disease; E86.9 Volume depletion, unspecified; I16.0 Hypertensive urgency; E11.65 Type 2 diabetes mellitus with hyperglycemia; E11.43 Type 2 diabetes mellitus with diabetic autonomic (poly)neuropathy; K31.84 Gastroparesis; J45.909 Unspecified asthma, uncomplicated; Z90.49 Acquired absence of other specified parts of digestive tract; Z89.411 Acquired absence of right great toe; Z82.49 Family history of ischemic heart disease and other diseases of the circulatory system; Z79.4 Long term (current) use of insulin; Z79.51 Long term (current) use of inhaled steroids; Z79.899 Other long term (current) drug therapy; Z68.25 Body mass index [BMI] 25.0-25.9, adult
CPT/HCPCS: 36415; 36558; 74022; 76770; 77001; 80048; 80053; 80061; 80074; 81001; 82565; 82570; 82575; 82607; 82728; 82747; 82962; 83036; 83550; 83735; 83970; 84100; 84484; 85014; 85018; 85025; 85027; 85045; 85610; 85730; 86706; 86803; 86850; 86900; 86901; 86920; 87040; 89050; 93005; 93010; 93306; 93970; 94640; 96374; G0378; C1750; C1751; C9113; J0360; J0885; J1644; J1815; J2060; J2250; J2270; J2405; J2765; J2916; J3010; J7030; J7040; J7050; J7070; P9016

== ENCOUNTER 2019-10-21 19:08 | Inpatient (IN) | payer MEDICAID, OTHER ==
[2019-10-21] MEDS ORDERED: ONDANSETRON 4 MG/2 ML INJ ONE (19:37)
[2019-10-21] MEDS ORDERED: METOCLOPRAMIDE 10 MG/2 ML INJ IV ONE (19:56)
[2019-10-21] MEDS ORDERED: PANTOPRAZOLE 40 MG INJ IV ONE (19:58)
--- NOTE | 2019-10-21 20:01 | Emergency Department Report ---
ED Abdominal Pain HPI - General Chief Complaint: Abdominal Pain Stated Complaint: VOMITING Time Seen by Provider: 10/21/19 19:33 Source: patient Mode of arrival: Ambulatory Limitations: No Limitations - History of Present Illness Initial Comments: Patient is 33 years old male with history of end-stage renal disease on hemodialysis. Patient missed his dialysis for a whole week because of nausea and vomiting and abdominal pain. Patient brought to the emergency room via EMS actively vomiting. Patient described his abdominal pain as crampy is no radi ation. He stated that is similar to what he had before. Patient denied any fever or chills. No chest pain. Patient found to have a blood pressure of 240/134. MD Complaint: abdominal pain Location: diffuse Migration to: no migration Quality: cramping - Related Data Previous Rx's Medication Instructions Recorded Last Taken Type Insulin Glargine [Lantus VIAL] 13 units SUB-Q QAMDIAB 30 Days 09/10/19 Unknown Rx LORazepam [Ativan] 0.5 mg PO Q6H PRN #10 tablet 09/10/19 Unknown Rx Losartan [Cozaar] 100 mg PO QDAY #30 tablet 09/10/19 Unknown Rx Metoclopramide [Reglan ORAL LIQ] 10 mg PO QID 30 Days 09/10/19 Unknown Rx Pantoprazole [Protonix TAB] 40 mg PO BIDAC #60 09/10/19 Unknown Rx amLODIPine 10 mg PO QDAY #30 tablet 09/10/19 Unknown Rx labetaloL [Labetalol 200mg TAB] 200 mg PO Q8HR #90 tablet 09/10/19 Unknown Rx Allergies Allergy/AdvReac Type Severity Reaction Status Date / Time No Known Allergies Allergy Verified 11/21/18 17:51 ED Review of Systems ROS: Stated complaint: VOMITING Other details as noted in HPI Comment: All other systems reviewed and negative Constitutional: denies: chills, fever Respiratory: denies: cough, shortness of breath, SOB with exertion, SOB at rest, wheezing Cardiovascular: denies: chest pain Gastrointestinal: abdominal pain, nausea, vomiting Musculoskeletal: denies: back pain Neurological: denies: headache, weakness, numbness, paresthesias, confusion, abnormal gait ED Past Medical Hx - Past Medical History Previous Medical History?: Yes Hx Hypertension: Yes Hx Heart Attack/AMI: No Hx Congestive Heart Failure: No Hx Diabetes: Yes Hx Deep Vein Thrombosis: No Hx Sickle Cell Disease: No Hx Asthma: Yes Hx COPD: No Hx HIV: No Additional medical history: Ulcerative esophagitis, Gastroparesis - Surgical History Past Surgical History?: Yes Hx Pacemaker: No Hx Internal Defibrillator: No Hx Appendectomy: Yes Additional Surgical History: right great toe removed - Social History Smoking Status: Never Smoker Substance Use Type: None - Medications Home Medications: Home Medications Medication Instructions Recorded Confirmed Last Taken Type Insulin Glargine [Lantus VIAL] 13 units SUB-Q QAMDIAB 30 Days 09/10/19 Unknown Rx LORazepam [Ativan] 0.5 mg PO Q6H PRN #10 tablet 09/10/19 Unknown Rx Losartan [Cozaar] 100 mg PO QDAY #30 tablet 09/10/19 Unknown Rx Metoclopramide [Reglan ORAL LIQ] 10 mg PO QID 30 Days 09/10/19 Unknown Rx Pantoprazole [Protonix TAB] 40 mg PO BIDAC #60 09/10/19 Unknown Rx amLODIPine 10 mg PO QDAY #30 tablet 09/10/19 Unknown Rx labetaloL [Labetalol 200mg TAB] 200 mg PO Q8HR #90 tablet 09/10/19 Unknown Rx ED Physical Exam - General Limitations: No Limitations General appearance: alert, in no apparent distress - Head Head exam: Present: atraumatic, normocephalic, normal inspection - Eye Eye exam: Present: normal appearance - ENT ENT exam: Present: normal exam, normal orophraynx, mucous membranes moist - Neck Neck exam: Present: normal inspection, full ROM. Absent: tenderness, meningismus, lymphadenopathy, thyromegaly - Respiratory Respiratory exam: Present: normal lung sounds bilaterally - Cardiovascular Cardiovascular Exam: Present: regular rate, normal rhythm, normal heart sounds - GI/Abdominal GI/Abdominal exam: Present: soft, normal bowel sounds. Absent: distended, tenderness, guarding, rebound, rigid, organomegaly, mass, bruit, pulsatile mass, hernia - Extremities Exam Extremities exam: Present: normal inspection, full ROM, normal capillary refill - Back Exam Back exam: Present: normal inspection, full ROM. Absent: CVA tenderness (R), CVA tenderness (L) - Neurological Exam Neurological exam: Present: alert, oriented X3, CN II-XII intact. Absent: motor sensory deficit - Skin Skin exam: Present: warm, intact, normal color ED Course Vital Signs 10/21/19 10/21/19 10/21/19 19:22 19:24 19:26 Pulse Rate 116 H 111 H 106 H Respiratory 26 H 21 21 Rate Blood Pressure O2 Sat by Pulse 100 100 100 Oximetry 10/21/19 10/21/19 10/21/19 19:28 19:30 19:31 Pulse Rate 107 H 104 H 105 H Respiratory 23 17 26 H Rate Blood Pressure 253/143 O2 Sat by Pulse 100 100 100 Oximetry 10/21/19 10/21/19 10/21/19 19:50 19:52 19:54 Pulse Rate 113 H 105 H 107 H Respiratory 21 27 H 23 Rate Blood Pressure 253/143 253/143 253/143 O2 Sat by Pulse 100 100 100 Oximetry 10/21/19 10/21/19 10/21/19 19:56 19:58 20:00 Pulse Rate 112 H 119 H 115 H Respiratory 16 17 29 H Rate Blood Pressure 253/143 253/143 260/154 O2 Sat by Pulse 100 100 100 Oximetry 10/21/19 10/21/19 10/21/19 20:02 20:04 20:06 Pulse Rate 110 H 104 H 100 H Respiratory 24 26 H 25 H Rate Blood Pressure 260/154 260/154 260/154 O2 Sat by Pulse 100 98 96 Oximetry 10/21/19 10/21/19 10/21/19 20:08 20:10 20:12 Pulse Rate 100 H 102 H 101 H Respiratory 26 H 20 19 Rate Blood Pressure 260/154 260/154 260/154 O2 Sat by Pulse 99 100 91 Oximetry 10/21/19 10/21/19 10/21/19 20:14 20:16 20:18 Pulse Rate 98 H 97 H 97 H Respiratory 17 19 14 Rate Blood Pressure 260/154 260/154 260/154 O2 Sat by Pulse 94 97 95 Oximetry 10/21/19 10/21/19 10/21/19 20:20 20:21 20:22 Pulse Rate 96 H 96 H 98 H Respiratory 14 14 Rate Blood Pressure 260/154 260/154 260/154 O2 Sat by Pulse 96 98 Oximetry 10/21/19 10/21/19 10/21/19 20:24 20:26 20:28 Pulse Rate 98 H 96 H 97 H Respiratory 15 13 15 Rate Blood Pressure 260/154 260/154 260/154 O2 Sat by Pulse 99 99 99 Oximetry 10/21/19 10/21/19 10/21/19 20:30 20:32 20:34 Pulse Rate 97 H 96 H 97 H Respiratory 20 12 14 Rate Blood Pressure 186/110 186/110 186/110 O2 Sat by Pulse 98 99 98 Oximetry 10/21/19 10/21/19 10/21/19 20:36 20:38 20:40 Pulse Rate 101 H 113 H 137 H Respiratory 17 16 19 Rate Blood Pressure 186/110 186/110 186/110 O2 Sat by Pulse 99 100 99 Oximetry 10/21/19 10/21/19 10/21/19 20:42 20:44 20:46 Pulse Rate 120 H 123 H 122 H Respiratory 22 20 21 Rate Blood Pressure 186/110 186/110 186/110 O2 Sat by Pulse 100 100 Oximetry 10/21/19 10/21/19 10/21/19 20:48 20:50 20:52 Pulse Rate 123 H 119 H 114 H Respiratory 15 17 20 Rate Blood Pressure 186/110 186/110 186/110 O2 Sat by Pulse Oximetry 10/21/19 10/21/19 10/21/19 20:54 20:55 20:56 Pulse Rate 112 H 107 H 109 H Respiratory 13 19 17 Rate Blood Pressure 186/110 186/110 186/110 O2 Sat by Pulse Oximetry 10/21/19 10/21/19 10/21/19 20:58 21:00 21:02 Pulse Rate 109 H 105 H 102 H Respiratory 16 16 15 Rate Blood Pressure 186/110 209/123 209/123 O2 Sat by Pulse Oximetry 10/21/19 10/21/19 10/21/19 21:04 21:06 21:08 Pulse Rate 102 H 101 H 101 H Respiratory 20 14 13 Rate Blood Pressure 209/123 209/123 209/123 O2 Sat by Pulse Oximetry 10/21/19 10/21/19 10/21/19 21:10 21:12 21:14 Pulse Rate 101 H 101 H 100 H Respiratory 15 15 14 Rate Blood Pressure 209/123 209/123 209/123 O2 Sat by Pulse Oximetry 10/21/19 10/21/19 10/21/19 21:16 21:18 21:20 Pulse Rate 99 H 98 H 98 H Respiratory 13 13 12 Rate Blood Pressure 209/123 209/123 209/123 O2 Sat by Pulse Oximetry 10/21/19 10/21/19 10/21/19 21:22 21:24 21:26 Pulse Rate 96 H 97 H 95 H Respiratory 12 13 12 Rate Blood Pressure 209/123 209/123 209/123 O2 Sat by Pulse Oximetry - Consultations Consultation #1: 10/21/19 21:38 I discussed the patient was Dr. Graves, ship pilot dispatcher, she advised to start patient on nitroglycerin drip and patient will be dialyzed in the morning. - EJ/Peripheral Line Neck R Time Out Performed: Yes Indications: nurses unable to establis Skin Cleansed in Sterile Fashion: Yes Size: 20 Dressing Placed: Tegaderm, tape Patient Tolerated Procedure: well, no complications ED Medical Decision Making - Lab Data Result diagrams: 10/21/19 19:59 10/21/19 19:59 - EKG Data -: EKG Interpreted by Me EKG shows normal: sinus rhythm Rate: tachycardia - EKG Data Interpretation: no acute changes - Radiology Data Radiology results: report reviewed - Medical Decision Making Patient is 33 years old male with history of end-stage renal disease on hemodialysis. Patient missed his dialysis for a whole week because of nausea and vomiting and abdominal pain. Patient brought to the emergency room via EMS actively vomiting. Patient described his abdominal pain as crampy is no radiation. He stated that is similar to what he had before. Patient denied any fever or chills. No chest pain. Patient found to have a blood pressure of 240/134. Patient received Zofran, Reglan, Protonix and hydralazine. No more vomiting observed. Patient felt pressure improved a little bit with hydralazine but not too much. I discussed the patient with Dr Dove, to admit the patient to medical service for further management. Critical Care Time: Yes Critical care time in (mins) excluding proc time.: 30 Critical care attestation.: If time is entered above; I have spent that time in minutes in the direct care of this critically ill patient, excluding procedure time. ED Disposition Clinical Impression: Hypertensive emergency, Volume overload, Acute hyperkalemia, End-stage renal disease needing dialysis, Intractable nausea and vomiting Disposition: OP ADMIT IP TO THIS HOSP Is pt being admited?: Yes Condition: Stable Instructions: Hypertension (ED)
[2019-10-21] MEDS ORDERED: hydrALAZINE 20 MG/1 ML INJ IV ONE (20:02)
[2019-10-21 20:22] LABS: Basophils # (Auto) 0.1 K/mm3 (0.0-0.1); Eosinophils % (Auto) 0.5 % (0.0-4.3); Hematocrit 32.4 % (35.5-45.6); Hemoglobin 10.6 gm/dl (11.8-15.2); Lymphocytes # (Auto) 1.6 K/mm3 (1.2-5.4); Lymphocytes % (Auto) 15.6 % (13.4-35.0); Mean Corpuscular HGB Conc 33 % (32-34); Mean Corpuscular Volume 79 fl (84-94); Monocytes # (Auto) 0.3 K/mm3 (0.0-0.8); Monocytes % (Auto) 2.6 % (0.0-7.3); Platelet Count 404 K/mm3 (140-440); Red Blood Count 4.13 M/mm3 (3.65-5.03)
[2019-10-21 20:24] LABS: Red Cell Distribution Width 20.2 % (13.2-15.2)
[2019-10-21 20:45] LABS: INR 1.04 (0.87-1.13)
[2019-10-21 20:51] LABS: Alanine Aminotransferase 11 units/L (7-56); Albumin 2.9 g/dL (3.9-5); BUN/Creatinine Ratio 5; Blood Urea Nitrogen 69 mg/dL (9-20); Calcium 9.7 mg/dL (8.4-10.2); Hemolysis Index 11
[2019-10-21 20:52] LABS: Bilirubin,Direct < 0.2 mg/dL (0-0.2)
[2019-10-21] MEDS ORDERED: SODIUM POLYSTYRENE 15 GM/60 ML ORAL LIQD PO ONE (21:40)
[2019-10-21] MEDS: NITROGLYCERIN DRIP 50 MG/250 ML BOTTLE IV SCH (21:49)
[2019-10-21] MEDS ORDERED: MORPHINE 2 MG/1 ML INJ IV PRN (22:36)
[2019-10-21] MEDS ORDERED: MAGNESIUM HYDROXIDE (MOM) ORAL LIQD UDC PO PRN (22:36)
--- NOTE | 2019-10-21 22:49 | XRay Report ---
CHEST 1 VIEW 10/21/2019 10:05 PM INDICATION / CLINICAL INFORMATION: SOB. COMPARISON: One view of the chest from 04/18/2019. FINDINGS: SUPPORT DEVICES: The previously seen left arm PICC has been removed. A right internal jugular vein Pe rmCath has been placed that terminates over the right atrium. HEART / MEDIASTINUM: No significant abnormality. LUNGS / PLEURA: No significant pulmonary or pleural abnormality. No pneumothorax. ADDITIONAL FINDINGS: No significant additional findings. IMPRESSION: 1. No acute abnormality of the chest. Signer Name: Stepan Valentine MD Signed: 10/21/2019 10:45 PM Workstation Name: [id number]
--- NOTE | 2019-10-21 23:58 | History and Physical Report ---
History of Present Illness Date of examination: 10/21/19 Date of admission: 10/21/19 22:11 Chief complaint: Nausea and vomiting. Abdominal pain History of present illness: 33-year-old -[place] male with known history of end-stage renal disease on dialysis presented to the emergency room today complaining of nausea and vomiting with associated abdominal pain. Patient indicates he has not been able to go for his dialysis for about a week because he has not been feeling quite well. He denies any fever no chills, denies any chest pain but has had some shortness of breath. Upon arrival in the emergency room his work-up reveals hypokalemia, he was quite hypertensive, and he was volume overloaded on the chest x-ray. Patient was subsequently started on nitro drip and order desk caller on-call was consulted by the ER physician. Patient will be promptly scheduled for dialysis. Past History Past Medical History: ESRD, other (Esophagitis, gastroparesis) Past Surgical History: Other (Right great toe amputation) Social history: no significant social history Family history: no significant family history Medications and Allergies Allergies Allergy/AdvReac Type Severity Reaction Status Date / Time No Known Allergies Allergy Verified 11/21/18 17:51 Home Medications Medication Instructions Recorded Confirmed Last Taken Type Insulin Glargine [Lantus VIAL] 13 units SUB-Q QAMDIAB 30 Days 09/10/19 Unknown Rx LORazepam [Ativan] 0.5 mg PO Q6H PRN #10 tablet 09/10/19 Unknown Rx Losartan [Cozaar] 100 mg PO QDAY #30 tablet 09/10/19 Unknown Rx Metoclopramide [Reglan ORAL LIQ] 10 mg PO QID 30 Days 09/10/19 Unknown Rx Pantoprazole [Protonix TAB] 40 mg PO BIDAC #60 09/10/19 Unknown Rx amLODIPine 10 mg PO QDAY #30 tablet 09/10/19 Unknown Rx labetaloL [Labetalol 200mg TAB] 200 mg PO Q8HR #90 tablet 09/10/19 Unknown Rx Active Meds: Active Medications Nitroglycerin/Dextrose (Tridil Drip 50mg/250ml) 50 mg in 250 mls @ 3 mls/hr IV TITR KESHIA; Protocol Last Titration: 10/21/19 22:51 Dose: 40 mcg/min, 12 mls/hr Documented by: Magnesium Hydroxide (Milk Of Magnesia) 30 ml PO Q4H PRN PRN Reason: Constipation Morphine Sulfate (Morphine) 2 mg IV Q4H PRN PRN Reason: Pain, Moderate (4-6) Ondansetron HCl (Zofran) 4 mg IV Q8H PRN PRN Reason: Nausea And Vomiting Sodium Chloride (Sodium Chloride Flush Syringe 10 Ml) 10 ml IV BID KESHIA Sodium Chloride (Sodium Chloride Flush Syringe 10 Ml) 10 ml IV PRN PRN PRN Reason: LINE FLUSH Review of Systems Gastrointestinal: abdominal pain, nausea, vomiting Exam - Constitutional Vitals: Temp Pulse Resp BP Pulse Ox 101 H 19 160/105 98 10/21/19 23:28 10/21/19 23:28 10/21/19 23:28 10/21/19 23:28 General appearance: Present: no acute distress - EENT Eyes: Present: PERRL, EOM intact ENT: hearing intact, clear oral mucosa, dentition normal - Neck Neck: Present: supple, normal ROM - Respiratory Respiratory effort: normal Respiratory: bilateral: CTA - Cardiovascular Rhythm: regular Heart Sounds: Present: S1 & S2 - Extremities Extremities: no ischemia, pulses intact, No edema Peripheral Pulses: within normal limits - Abdominal General gastrointestinal: Present: soft, non-tender, non-distended - Integumentary Integumentary: Present: clear, warm, dry - Musculoskeletal Musculoskeletal: strength equal bilaterally - Psychiatric Psychiatric: appropriate mood/affect, intact judgment & insight, cooperative - Neurologic Neurologic: CNII-XII intact, moves all extremities Results - Labs CBC & Chem 7: 10/21/19 19:59 10/21/19 19:59 Labs: Abnormal lab results 10/21/19 10/21/19 Range/Units 19:59 19:59 Hgb 10.6 L (11.8-15.2) gm/dl Hct 32.4 L (35.5-45.6) % MCV 79 L (84-94) fl MCH 26 L (28-32) pg RDW 20.2 H (13.2-15.2) % Seg Neutrophils % 80.3 H (40.0-70.0) % Seg Neutrophils # 8.2 H (1.8-7.7) K/mm3 Potassium 5.3 H (3.6-5.0) mmol/L Carbon Dioxide 17 L (22-30) mmol/L BUN 69 H (9-20) mg/dL Creatinine 13.0 H (0.8-1.5) mg/dL Glucose 233 H (75-100) mg/dL Albumin 2.9 L (3.9-5) g/dL Assessment and Plan - Patient Problems (1) Acute hyperkalemia Current Visit: Yes Status: Acute Plan to address problem: Patient has had some Kayexalate in the emergency room. Will monitor potassium levels. We will also monitor EKG. (2) End-stage renal disease needing dialysis Current Visit: Yes Status: Acute Plan to address problem: Patient is on dialysis. Application Support Intern on-call has been notified. (3) Hypertensive emergency Current Visit: Yes Status: Acute Plan to address problem: Patient has been placed on nitro drip . We will monitor blood pressure closely. (4) Intractable nausea and vomiting Current Visit: Yes Status: Acute Plan to address problem: We placed on IV Zofran. Patient has had some IV Reglan in the emergency room. (5) Volume overload Current Visit: Yes Status: Acute Plan to address problem: Possibly secondary to noncompliance with dialysis. He will be scheduled for dialysis in the a.m. (6) DVT prophylaxis Current Visit: No Status: Acute Plan to address problem: Patient placed on subcutaneous heparin. (7) Full code status Current Visit: Yes Status: Acute
[2019-10-22] MEDS: ONDANSETRON 4 MG/2 ML INJ IV PRN ×3 (04:40→19:43)
[2019-10-22] MEDS: HEPARIN 5,000 UNIT/1 ML VIAL SUB-Q SCH ×3 (05:09→21:37)
[2019-10-22 05:31] LABS: Hematocrit 26.9 % (35.5-45.6); Hemoglobin 8.7 gm/dl (11.8-15.2); Mean Corpuscular HGB Conc 32 % (32-34); Mean Corpuscular Volume 79 fl (84-94); Platelet Count 402 K/mm3 (140-440); Red Blood Count 3.42 M/mm3 (3.65-5.03)
[2019-10-22 05:33] LABS: Red Cell Distribution Width 20.5 % (13.2-15.2)
[2019-10-22 05:38] LABS: INR 1.06 (0.87-1.13)
[2019-10-22 05:39] LABS: Partial Thromboplastin Time 41.1 Sec. (24.2-36.6)
[2019-10-22 05:51] LABS: Calcium 9.4 mg/dL (8.4-10.2)
[2019-10-22] MEDS: METOPROLOL TARTRATE 5 MG/5 ML INJ IV SCH ×4 (08:30→21:37)
[2019-10-22 08:50] LABS: Total Cells Counted 100
[2019-10-22 08:51] LABS: Anisocytosis 1+; Eosinophils % (Manual) 0 % (0.0-4.3); Hypochromasia 1+; Platelet Estimate Consistent w Auto; Poikilocytosis Few
[2019-10-22] MEDS: NITROGLYCERIN DRIP 50 MG/250 ML BOTTLE IV SCH ×2 (09:00→19:46)
[2019-10-22] MEDS: PANTOPRAZOLE 40 MG INJ IV SCH ×2 (09:19→21:37)
--- NOTE | 2019-10-22 10:21 | Gastroenterology Consultation ---
History of Present Illness - Reason for Consult Consult date: 10/22/19 hematemesis Requesting physician: BERNARDINO PHAN - History of Present Illness Patient is a 33 y/o male with PMH of ESRD on HD, HTN, DM (uncontrolled, complicated with neuropathy), remote hx of PUD, and noncompliance who presented to ED with c/o not feeliing well with SOB, diffuse abdominal pain, and N/V with bloody emesis after not going to dialysis for about a week. Upon admission, he was found to have acute hyperkalemia, volume overload, adn hypertensive emergency to which he was admitted and promptly scheduled for dialysis. GI has been consulted for vomiting blood (hematemesis). Patient is well known to our service with multiple prior hospitalizations for similar symptoms with undergoing multiple prior EGDs that showed severe ulcerative esophagitis but no high risk lesions. This morning patient was resting in bed in ICU receiving dialysis w/o acute distress but ill appearing with continued vomiting. Emesis noted to be dark black/brown in color upon exam. No hematemesis. Denies melena or hematochezia. No NSAID use or hx of liver disease. Unsure if patient has been compliant with daily PPI at home as previously recommended. Past History Past Medical History: other (as per HPI) Past Surgical History: appendectomy, Other (Right great toe amputation) Social history: denies: smoking, alcohol abuse Medications and Allergies Allergies Allergy/AdvReac Type Severity Reaction Status Date / Time No Known Allergies Allergy Verified 11/21/18 17:51 Home Medications Medication Instructions Recorded Confirmed Last Taken Type Insulin Glargine [Lantus VIAL] 13 units SUB-Q QAMDIAB 30 Days 09/10/19 Unknown Rx LORazepam [Ativan] 0.5 mg PO Q6H PRN #10 tablet 09/10/19 Unknown Rx Losartan [Cozaar] 100 mg PO QDAY #30 tablet 09/10/19 Unknown Rx Metoclopramide [Reglan ORAL LIQ] 10 mg PO QID 30 Days 09/10/19 Unknown Rx Pantoprazole [Protonix TAB] 40 mg PO BIDAC #60 09/10/19 Unknown Rx amLODIPine 10 mg PO QDAY #30 tablet 09/10/19 Unknown Rx labetaloL [Labetalol 200mg TAB] 200 mg PO Q8HR #90 tablet 09/10/19 Unknown Rx Active Meds: Active Medications Heparin Sodium (Porcine) (Heparin) 5,000 unit SUB-Q Q8HR [facility] Last Admin: 10/22/19 05:09 Dose: 5,000 unit Documented by: Nitroglycerin/Dextrose (Tridil Drip 50mg/250ml) 50 mg in 250 mls @ 3 mls/hr IV TITR [facility]; Protocol Last Titration: 10/22/19 09:50 Dose: 170 mcg/min, 51 mls/hr Documented by: Magnesium Hydroxide (Milk Of Magnesia) 30 ml PO Q4H PRN PRN Reason: Constipation Metoclopramide HCl (Reglan) 5 mg IV [facility] Metoprolol Tartrate (Metoprolol) 5 mg IV Q6HR [facility] Last Admin: 10/22/19 08:30 Dose: 5 mg Documented by: Morphine Sulfate (Morphine) 2 mg IV Q4H PRN PRN Reason: Pain, Moderate (4-6) Ondansetron HCl (Zofran) 4 mg IV Q8H PRN PRN Reason: Nausea And Vomiting Last Admin: 10/22/19 04:40 Dose: 4 mg Documented by: Pantoprazole Sodium (Protonix) 40 mg IV BID [facility] Last Admin: 10/22/19 09:19 Dose: 40 mg Documented by: Sodium Chloride (Sodium Chloride Flush Syringe 10 Ml) 10 ml IV BID [facility] Last Admin: 10/22/19 09:39 Dose: 10 ml Documented by: Sodium Chloride (Sodium Chloride Flush Syringe 10 Ml) 10 ml IV PRN PRN PRN Reason: LINE FLUSH medications reviewed/updated as required Review of Systems - Review of Systems All systems: negative Gastrointestinal: abdominal pain (diffuse), nausea, vomiting, coffee ground emesis Exam - Constitutional Vital Signs: Temp Pulse Resp BP Pulse Ox 98.6 F 116 H 23 154/95 100 10/22/19 09:00 10/22/19 10:05 10/22/19 10:05 10/22/19 10:05 10/22/19 10:05 General appearance: no acute distress, other (ill appearing) - EENT Eyes: PERRL, EOM intact ENT: hearing intact - Respiratory Respiratory effort: normal - Cardiovascular Rhythm: other (tachycardia) - Gastrointestinal General gastrointestinal: Present: soft, tender (slight generalized TTP), non- distended, normal bowel sounds - Integumentary Integumentary: Present: warm, clammy - Neurologic Neurological: alert and oriented x3 - Labs CBC & Chem 7: 10/22/19 05:05 10/22/19 05:05 Lab Results: Laboratory Results - last 24 hr 10/21/19 10/21/19 10/21/19 19:39 19:59 19:59 WBC 10.2 RBC 4.13 Hgb 10.6 L Hct 32.4 L MCV 79 L MCH 26 L MCHC 33 RDW 20.2 H Plt Count 404 Lymph % (Auto) 15.6 King % (Auto) 2.6 Eos % (Auto) 0.5 Baso % (Auto) 1.0 Lymph # 1.6 King # 0.3 Eos # 0.0 Baso # 0.1 Add Manual Diff Total Counted Seg Neutrophils % 80.3 H Seg Neuts % (Manual) Band Neutrophils % Lymphocytes % (Manual) Reactive Lymphs % (Man) Monocytes % (Manual) Eosinophils % (Manual) Basophils % (Manual) Metamyelocytes % Myelocytes % Promyelocytes % Blast Cells % Nucleated RBC % Seg Neutrophils # 8.2 H Seg Neutrophils # Man Band Neutrophils # Lymphocytes # (Manual) Abs React Lymphs (Man) Monocytes # (Manual) Eosinophils # (Manual) Basophils # (Manual) Metamyelocytes # Myelocytes # Promyelocytes # Blast Cells # WBC Morphology Hypersegmented Neuts Hyposegmented Neuts Hypogranular Neuts Smudge Cells Toxic Granulation Toxic Vacuolation Dohle Bodies Pelger-Huet Anomaly Julio Cesar Rods Platelet Estimate Clumped Platelets Plt Clumps, EDTA Large Platelets Giant Platelets Platelet Satelliting Plt Morphology Comment RBC Morphology Dimorphic RBCs Polychromasia Hypochromasia Poikilocytosis Anisocytosis Microcytosis Macrocytosis Spherocytes Pappenheimer Bodies Sickle Cells Target Cells Tear Drop Cells Ovalocytes Helmet Cells [place] Bodies [place] Rings [place] Cells Bite Cells Crenated Cell Elliptocytes Acanthocytes (Spur) Rouleaux Hemoglobin C Crystals Schistocytes Malaria parasites David Bodies Hem Pathologist Commnt PT INR APTT Sodium 144 Potassium 5.3 H Chloride 103.6 Carbon Dioxide 17 L Anion Gap 29 BUN 69 H Creatinine 13.0 H Estimated GFR 5 BUN/Creatinine Ratio 5 Glucose 233 H POC Glucose Calcium 9.7 Total Bilirubin 0.30 Direct Bilirubin < 0.2 Indirect Bilirubin 0.1 AST 18 ALT 11 Alkaline Phosphatase 82 Total Protein 6.7 Albumin 2.9 L Albumin/Globulin Ratio 0.8 Lipase 42 10/21/19 10/22/19 10/22/19 19:59 05:05 05:05 WBC 11.5 H RBC 3.42 L Hgb 8.7 L Hct 26.9 L MCV 79 L MCH 26 L MCHC 32 RDW 20.5 H Plt Count 402 Lymph % (Auto) King % (Auto) Eos % (Auto) Baso % (Auto) Lymph # King # Eos # Baso # Add Manual Diff Complete Total Counted 100 Seg Neutrophils % Seg Neuts % (Manual) 84.0 H Band Neutrophils % 0 Lymphocytes % (Manual) 12.0 L Reactive Lymphs % (Man) 1.0 Monocytes % (Manual) 1.0 Eosinophils % (Manual) 0 Basophils % (Manual) 2.0 H Metamyelocytes % 0 Myelocytes % 0 Promyelocytes % 0 Blast Cells % 0 Nucleated RBC % Not Reportable Seg Neutrophils # Seg Neutrophils # Man 9.7 H Band Neutrophils # 0.0 Lymphocytes # (Manual) 1.4 Abs React Lymphs (Man) 0.1 Monocytes # (Manual) 0.1 Eosinophils # (Manual) 0.0 Basophils # (Manual) 0.2 H Metamyelocytes # 0.0 Myelocytes # 0.0 Promyelocytes # 0.0 Blast Cells # 0.0 WBC Morphology Not Reportable Hypersegmented Neuts Not Reportable Hyposegmented Neuts Not Reportable Hypogranular Neuts Not Reportable Smudge Cells Not Reportable Toxic Granulation Not Reportable Toxic Vacuolation Not Reportable Dohle Bodies Not Reportable Pelger-Huet Anomaly Not Reportable Julio Cesar Rods Not Reportable Platelet Estimate Consistent w auto Clumped Platelets Not Reportable Plt Clumps, EDTA Not Reportable Large Platelets Not Reportable Giant Platelets Not Reportable Platelet Satelliting Not Reportable Plt Morphology Comment Not Reportable RBC Morphology Not Reportable Dimorphic RBCs Not Reportable Polychromasia Not Reportable Hypochromasia 1+ Poikilocytosis Few Anisocytosis 1+ Microcytosis Few Macrocytosis Not Reportable Spherocytes Not Reportable Pappenheimer Bodies Not Reportable Sickle Cells Not Reportable Target Cells Not Reportable Tear Drop Cells Not Reportable Ovalocytes Not Reportable Helmet Cells Not Reportable [place] Bodies Not Reportable [place] Rings Not Reportable [place] Cells Not Reportable Bite Cells Not Reportable Crenated Cell Not Reportable Elliptocytes Not Reportable Acanthocytes (Spur) Not Reportable Rouleaux Not Reportable Hemoglobin C Crystals Not Reportable Schistocytes Not Reportable Malaria parasites Not Reportable David Bodies Not Reportable Hem Pathologist Commnt No PT 13.7 13.9 INR 1.04 1.06 APTT 36.0 41.1 H Sodium Potassium Chloride Carbon Dioxide Anion Gap BUN Creatinine Estimated GFR BUN/Creatinine Ratio Glucose POC Glucose Calcium Total Bilirubin Direct Bilirubin Indirect Bilirubin AST ALT Alkaline Phosphatase Total Protein Albumin Albumin/Globulin Ratio Lipase 10/22/19 10/22/19 05:05 08:26 WBC RBC Hgb Hct MCV MCH MCHC RDW Plt Count Lymph % (Auto) King % (Auto) Eos % (Auto) Baso % (Auto) Lymph # King # Eos # Baso # Add Manual Diff Total Counted Seg Neutrophils % Seg Neuts % (Manual) Band Neutrophils % Lymphocytes % (Manual) Reactive Lymphs % (Man) Monocytes % (Manual) Eosinophils % (Manual) Basophils % (Manual) Metamyelocytes % Myelocytes % Promyelocytes % Blast Cells % Nucleated RBC % Seg Neutrophils # Seg Neutrophils # Man Band Neutrophils # Lymphocytes # (Manual) Abs React Lymphs (Man) Monocytes # (Manual) Eosinophils # (Manual) Basophils # (Manual) Metamyelocytes # Myelocytes # Promyelocytes # Blast Cells # WBC Morphology Hypersegmented Neuts Hyposegmented Neuts Hypogranular Neuts Smudge Cells Toxic Granulation Toxic Vacuolation Dohle Bodies Pelger-Huet Anomaly Julio Cesar Rods Platelet Estimate Clumped Platelets Plt Clumps, EDTA Large Platelets Giant Platelets Platelet Satelliting Plt Morphology Comment RBC Morphology Dimorphic RBCs Polychromasia Hypochromasia Poikilocytosis Anisocytosis Microcytosis Macrocytosis Spherocytes Pappenheimer Bodies Sickle Cells Target Cells Tear Drop Cells Ovalocytes Helmet Cells [place] Bodies [place] Rings [place] Cells Bite Cells Crenated Cell Elliptocytes Acanthocytes (Spur) Rouleaux Hemoglobin C Crystals Schistocytes Malaria parasites David Bodies Hem Pathologist Commnt PT INR APTT Sodium 144 Potassium 5.3 H Chloride 106.8 Carbon Dioxide 18 L Anion Gap 25 BUN 69 H Creatinine 13.8 H Estimated GFR 5 BUN/Creatinine Ratio 5 Glucose 271 H POC Glucose 266 H Calcium 9.4 Total Bilirubin Direct Bilirubin Indirect Bilirubin AST ALT Alkaline Phosphatase Total Protein Albumin Albumin/Globulin Ratio Lipase Assessment and Plan 1.UGIB -coffee-ground emesis noted upon exam; no hematemesis, melena, or hematochezia -H/H 8.7/26.9-at baseline compared to previous labs -continue to monitor H/H and transfuse as needed -multiple prior EGDs (x 2 this year) for similar symptoms showing ulcerative esophagitis, which is most likely the etiology of CGE 2.N/V-etiology multifactorial (gastroparesis due to uncontrolled DM vs functional component vs other) -no plan for repeat EGD unless drop in H/H or overt bleeding develops -continue high dose PPI -avoid narcotics for this may exacerbate symptoms -consider low dose/short term Ativan if N/V persists -optimize glycemic control -continue supportive care 3.DM 4.ESRD 5.noncompliance
--- NOTE | 2019-10-22 11:52 | Consultation ---
History of Present Illness Consult date: 10/22/19 Requesting physician: BERNARDINO PHAN Reason for consult: other (Hypertensive Emergency) History of present illness: PULMONARY/CCM CONSULT NOTE (Full dictation # [id number]) Please see dictated notes for full details Past History Past Medical History: ESRD, other (Esophagitis, gastroparesis) Past Surgical History: Other (Right great toe amputation) Social history: no significant social history Family history: no significant family history Medications and Allergies Allergies Allergy/AdvReac Type Severity Reaction Status Date / Time No Known Allergies Allergy Verified 11/21/18 17:51 Home Medications Medication Instructions Recorded Confirmed Last Taken Type Insulin Glargine [Lantus VIAL] 13 units SUB-Q QAMDIAB 30 Days 09/10/19 Unknown Rx LORazepam [Ativan] 0.5 mg PO Q6H PRN #10 tablet 09/10/19 Unknown Rx Losartan [Cozaar] 100 mg PO QDAY #30 tablet 09/10/19 Unknown Rx Metoclopramide [Reglan ORAL LIQ] 10 mg PO QID 30 Days 09/10/19 Unknown Rx Pantoprazole [Protonix TAB] 40 mg PO BIDAC #60 09/10/19 Unknown Rx amLODIPine 10 mg PO QDAY #30 tablet 09/10/19 Unknown Rx labetaloL [Labetalol 200mg TAB] 200 mg PO Q8HR #90 tablet 09/10/19 Unknown Rx Active Meds: Active Medications Heparin Sodium (Porcine) (Heparin) 5,000 unit SUB-Q Q8HR [facility] Last Admin: 10/22/19 05:09 Dose: 5,000 unit Documented by: Nitroglycerin/Dextrose (Tridil Drip 50mg/250ml) 50 mg in 250 mls @ 3 mls/hr IV TITR [facility]; Protocol Last Titration: 10/22/19 10:35 Dose: 0 mcg/min, 0 mls/hr Documented by: Magnesium Hydroxide (Milk Of Magnesia) 30 ml PO Q4H PRN PRN Reason: Constipation Metoclopramide HCl (Reglan) 5 mg IV ACHS [facility] Metoprolol Tartrate (Metoprolol) 5 mg IV Q6HR [facility] Last Admin: 10/22/19 08:30 Dose: 5 mg Documented by: Morphine Sulfate (Morphine) 2 mg IV Q4H PRN PRN Reason: Pain, Moderate (4-6) Ondansetron HCl (Zofran) 4 mg IV Q8H PRN PRN Reason: Nausea And Vomiting Last Admin: 10/22/19 04:40 Dose: 4 mg Documented by: Pantoprazole Sodium (Protonix) 40 mg IV BID [facility] Last Admin: 10/22/19 09:19 Dose: 40 mg Documented by: Sodium Chloride (Sodium Chloride Flush Syringe 10 Ml) 10 ml IV BID [facility] Last Admin: 10/22/19 09:39 Dose: 10 ml Documented by: Sodium Chloride (Sodium Chloride Flush Syringe 10 Ml) 10 ml IV PRN PRN PRN Reason: LINE FLUSH Physical Examination Vital signs: Vital Signs Pulse Resp Pulse Ox 116 H 26 H 100 10/21/19 19:22 10/21/19 19:22 10/21/19 19:22 Results - Laboratory Findings CBC and BMP: 10/22/19 05:05 10/22/19 05:05 PT/INR, D-dimer PT 13.9 Sec. (12.2-14.9) 10/22/19 05:05 INR 1.06 (0.87-1.13) 10/22/19 05:05 Abnormal lab findings: Abnormal Labs 10/21/19 10/21/19 10/22/19 19:59 19:59 05:05 WBC 11.5 H RBC 3.42 L Hgb 10.6 L 8.7 L Hct 32.4 L 26.9 L MCV 79 L 79 L MCH 26 L 26 L RDW 20.2 H 20.5 H Seg Neutrophils % 80.3 H Seg Neuts % (Manual) 84.0 H Lymphocytes % (Manual) 12.0 L Basophils % (Manual) 2.0 H Seg Neutrophils # 8.2 H Seg Neutrophils # Man 9.7 H Basophils # (Manual) 0.2 H APTT Potassium 5.3 H Carbon Dioxide 17 L BUN 69 H Creatinine 13.0 H Glucose 233 H POC Glucose Albumin 2.9 L 10/22/19 10/22/19 10/22/19 05:05 05:05 08:26 WBC RBC Hgb Hct MCV MCH RDW Seg Neutrophils % Seg Neuts % (Manual) Lymphocytes % (Manual) Basophils % (Manual) Seg Neutrophils # Seg Neutrophils # Man Basophils # (Manual) APTT 41.1 H Potassium 5.3 H Carbon Dioxide 18 L BUN 69 H Creatinine 13.8 H Glucose 271 H POC Glucose 266 H Albumin
[2019-10-22 12:04] LABS: Hepatitis B Surface Antigen Non-Reactive (Negative); Hepatitis C Virus Antibody Non-Reactive (NonReactive)
--- NOTE | 2019-10-22 13:50 | Consultation ---
History of Present Illness - Reason for Consult end stage renal disease - History of Present Illness 33-year-old gentleman with medical history significant for Hypertension, end- stage renal disease on hemodialysis admitted with complaints of missed dialysis found to have malignant hypertension requiring nitroglycerin drip. Denies any fevers chills denies any abdominal pain nausea vomiting he undergoes dialysis in [place]. The last dialysis was about a week ago. Patient reports feeling well is why he did not go to dialysis! He does have some shortness of breath was with exertion denies any significant lower extremity edema Past History Past Medical History: other (as per HPI) Past Surgical History: appendectomy, Other (Right great toe amputation) Social history: denies: smoking, alcohol abuse Family history: no significant family history Medications and Allergies Allergies Allergy/AdvReac Type Severity Reaction Status Date / Time No Known Allergies Allergy Verified 11/21/18 17:51 Home Medications Medication Instructions Recorded Confirmed Last Taken Type Insulin Glargine [Lantus VIAL] 13 units SUB-Q QAMDIAB 30 Days 09/10/19 Unknown Rx LORazepam [Ativan] 0.5 mg PO Q6H PRN #10 tablet 09/10/19 Unknown Rx Losartan [Cozaar] 100 mg PO QDAY #30 tablet 09/10/19 Unknown Rx Metoclopramide [Reglan ORAL LIQ] 10 mg PO QID 30 Days 09/10/19 Unknown Rx Pantoprazole [Protonix TAB] 40 mg PO BIDAC #60 09/10/19 Unknown Rx amLODIPine 10 mg PO QDAY #30 tablet 09/10/19 Unknown Rx labetaloL [Labetalol 200mg TAB] 200 mg PO Q8HR #90 tablet 09/10/19 Unknown Rx Active Meds: Active Medications Clonidine HCl (Catapres-Tts Patch) 0.2 mg TD Th [facility] Last Admin: 10/22/19 13:30 Dose: 0.2 mg Documented by: Heparin Sodium (Porcine) (Heparin) 5,000 unit SUB-Q Q8HR [facility] Last Admin: 10/22/19 05:09 Dose: 5,000 unit Documented by: Nitroglycerin/Dextrose (Tridil Drip 50mg/250ml) 50 mg in 250 mls @ 3 mls/hr IV TITR [facility]; Protocol Last Titration: 10/22/19 10:35 Dose: 0 mcg/min, 0 mls/hr Documented by: Insulin Glargine (Lantus) 13 units SUB-Q QAMDIAB [facility] Insulin Human Lispro (Humalog) 0 unit SUB-Q Q6HR [facility]; Protocol Magnesium Hydroxide (Milk Of Magnesia) 30 ml PO Q4H PRN PRN Reason: Constipation Metoclopramide HCl (Reglan) 5 mg IV ACHS [facility] Metoprolol Tartrate (Metoprolol) 5 mg IV Q6HR [facility] Last Admin: 10/22/19 08:30 Dose: 5 mg Documented by: Morphine Sulfate (Morphine) 2 mg IV Q4H PRN PRN Reason: Pain, Moderate (4-6) Ondansetron HCl (Zofran) 4 mg IV Q8H PRN PRN Reason: Nausea And Vomiting Last Admin: 10/22/19 12:20 Dose: 4 mg Documented by: Pantoprazole Sodium (Protonix) 40 mg IV BID [facility] Last Admin: 10/22/19 09:19 Dose: 40 mg Documented by: Sodium Chloride (Sodium Chloride Flush Syringe 10 Ml) 10 ml IV BID [facility] Last Admin: 10/22/19 09:39 Dose: 10 ml Documented by: Sodium Chloride (Sodium Chloride Flush Syringe 10 Ml) 10 ml IV PRN PRN PRN Reason: LINE FLUSH Review of Systems Constitutional: weight gain, weakness, no fever, no chills, no anorexia, no fatigue Ears, nose, mouth and throat: no deferred, no ear pain, no ear discharge Cardiovascular: no chest pain, no orthopnea, no palpitations Respiratory: no cough, no cough with sputum, no excessive sputum Gastrointestinal: no abdominal pain, no nausea, no vomiting Genitourinary Male: no dysuria, no hematuria, no flank pain Rectal: no pain, no incontinence Musculoskeletal: no neck stiffness, no neck pain, no shooting arm pain Integumentary: no deferred, no rash, no pruritis Neurological: no head injury, no transient paralysis Psychiatric: no anxiety, no memory loss Endocrine: no cold intolerance, no heat intolerance Hematologic/Lymphatic: no easy bruising, no easy bleeding Allergic/Immunologic: no urticaria, no allergic rhinitis Exam - Vital Signs Vital signs: Vital Signs Pulse Resp Pulse Ox 116 H 26 H 100 10/21/19 19:22 10/21/19 19:22 10/21/19 19:22 - General Appearance General appearance: well-developed, well-nourished EENT: ATNC, PERRL Neck: Present: neck supple Respiratory: Clear to Ascultation Heart: regular, S1S2 Gastrointestinal: Present: normal, normoactive bowel sounds Neurologic: no focal deficit, alert and oriented x3 Musculoskeletal: Present: deferred Psychiatric: mood/affect appropriate Results - Lab Results 10/22/19 05:05 10/22/19 05:05 Most recent lab results Calcium 9.4 mg/dL (8.4-10.2) 10/22/19 05:05 - Image Kidney/bladder ultrasound: other (reviewed chest x-ray without overt edema) Assessment and Plan - Patient Problems (1) End-stage renal disease needing dialysis Current Visit: Yes Status: Acute Plan to address problem: End-stage renal disease I attest I saw the patient on dialysis ultrafiltration on 3 L (2) Uncontrolled diabetes mellitus Current Visit: No Status: Acute Qualifiers: Diabetes mellitus type: type 2 Glycemic state: with hyperglycemia Qualified Code(s): E11.65 - Type 2 diabetes mellitus with hyperglycemia Plan to address problem: Diabetes mellitus type 2 uncontrolled Continue medications (3) HTN (hypertension) Current Visit: No Status: Chronic Plan to address problem: Malignant hypertension Received nitroglycerin drip Nitroglycerin drip was weaned off during dialysis however worsening blood pressure We'll give labetalol 20 mg IV Continue oral medications (4) Acute hyperkalemia Current Visit: Yes Status: Acute Plan to address problem: Hyperkalemia Secondary to renal failure missed dialysis Will initiate dialysis
[2019-10-22] MEDS: METOCLOPRAMIDE 10 MG/2 ML INJ IV SCH ×3 (13:52→21:38)
[2019-10-22] MEDS ORDERED: cloNIDine TTS 0.2 MG/24 HR PATCH TD SCH (14:00)
[2019-10-22] MEDS: INSULIN LISPRO 100 UNIT/ML SUB-Q SCH ×3 (14:00→23:59)
[2019-10-22 14:35] LABS: Creatine Kinase MB 9.9 ng/mL (0.0-4.0)
[2019-10-22 15:05] LABS: Chol/HDL Ratio 4.41 %
--- NOTE | 2019-10-22 19:06 | Progress Note ---
Assessment and Plan Assessment and plan: 33-year-old -Irish male with known history of end-stage renal disease on dialysis presented to the emergency room today complaining of nausea and vomiting with associated abdominal pain. Patient indicates he has not been able to go for his dialysis for about a week because he has not been feeling quite well. He denies any fever no chills, denies any chest pain but has had some shortness of breath. Upon arrival in the emergency room his work-up reveals hypokalemia, he was quite hypertensive, and he was volume overloaded on the chest x-ray. Patient was subsequently started on nitro drip and windows application packager on-call was consulted by the ER physician. Patient will be promptly scheduled for dialysis. (1) Acute hyperkalemia Current Visit: Yes Status: Acute Plan to address problem: Patient has had some Kayexalate in the emergency room. Will monitor potassium levels. We will also monitor EKG. (2) End-stage renal disease needing dialysis Current Visit: Yes Status: Acute Plan to address problem: Patient is on dialysis. Rental Car Deliverer on-call has been notified. (3) Hypertensive emergency Current Visit: Yes Status: Acute Plan to address problem: Patient has been placed on nitro drip . We will monitor blood pressure closely. (4) Intractable nausea and vomiting Current Visit: Yes Status: Acute Plan to address problem: We placed on IV Zofran. Patient has had some IV Reglan in the emergency room. (5) Volume overload Current Visit: Yes Status: Acute Plan to address problem: Possibly secondary to noncompliance with dialysis. He will be scheduled for dialysis in the a.m. (6) DVT prophylaxis Current Visit: No Status: Acute Plan to address problem: Patient placed on subcutaneous heparin. (7) Full code status Current Visit: Yes Status: Acute The high probability of a clinically significant, sudden or life threatening deterioration of the [GI, VASCULAR, CARDIAC, ] system(s) required my full and direct attention, intervention and personal management. The aggregate critical care time was [45] minutes. This time is in addition to time spent performing reported procedures but includes the following: [X] Data Review and interpretation [X] Patient assessment and monitoring of vital signs [X] Documentation [X] Medication orders and management History Interval history: Patient seen and examined, very distressed, still with nausea and vomiting and BP still elevated per nursing staff. Hospitalist Physical - Physical exam Narrative exam: General appearance: Present: mild distress - EENT Eyes: Present: PERRL, EOM intact ENT: hearing intact, clear oral mucosa, dentition normal - Neck Neck: Present: supple, normal ROM - Respiratory Respiratory effort: normal Respiratory: bilateral: CTA - Cardiovascular Rhythm: regular Heart Sounds: Present: S1 & S2 - Extremities Extremities: no ischemia, pulses intact, No edema Peripheral Pulses: within normal limits - Abdominal General gastrointestinal: Present: soft, non-tender, non-distended - Integumentary Integumentary: Present: clear, warm, dry - Musculoskeletal Musculoskeletal: strength equal bilaterally - Psychiatric Psychiatric: appropriate mood/affect, intact judgment & insight, cooperative - Neurologic Neurologic: CNII-XII intact, moves all extremities - Constitutional Vitals: Temp Pulse Resp BP Pulse Ox 99.5 F 106 H 14 169/107 100 10/22/19 16:00 10/22/19 17:30 10/22/19 17:25 10/22/19 17:30 10/22/19 17:25 General appearance: Present: no acute distress Results - Labs CBC & Chem 7: 10/23/19 05:06 10/23/19 05:06 Labs: Laboratory Last Values WBC 11.5 K/mm3 (4.5-11.0) H 10/22/19 05:05 RBC 3.42 M/mm3 (3.65-5.03) L 10/22/19 05:05 Hgb 8.7 gm/dl (11.8-15.2) L 10/22/19 05:05 Hct 26.9 % (35.5-45.6) L 10/22/19 05:05 MCV 79 fl (84-94) L 10/22/19 05:05 MCH 26 pg (28-32) L 10/22/19 05:05 MCHC 32 % (32-34) 10/22/19 05:05 RDW 20.5 % (13.2-15.2) H 10/22/19 05:05 Plt Count 402 K/mm3 (140-440) 10/22/19 05:05 Lymph % (Auto) 15.6 % (13.4-35.0) 10/21/19 19:59 [place] % (Auto) 2.6 % (0.0-7.3) 10/21/19 19:59 Eos % (Auto) 0.5 % (0.0-4.3) 10/21/19 19:59 Baso % (Auto) 1.0 % (0.0-1.8) 10/21/19 19:59 Lymph # 1.6 K/mm3 (1.2-5.4) 10/21/19 19:59 [place] # 0.3 K/mm3 (0.0-0.8) 10/21/19 19:59 Eos # 0.0 K/mm3 (0.0-0.4) 10/21/19 19:59 Baso # 0.1 K/mm3 (0.0-0.1) 10/21/19 19:59 Add Manual Diff Complete 10/22/19 05:05 Total Counted 100 10/22/19 05:05 Seg Neutrophils % 80.3 % (40.0-70.0) H 10/21/19 19:59 Seg Neuts % (Manual) 84.0 % (40.0-70.0) H 10/22/19 05:05 Band Neutrophils % 0 % 10/22/19 05:05 Lymphocytes % (Manual) 12.0 % (13.4-35.0) L 10/22/19 05:05 Reactive Lymphs % (Man) 1.0 % 10/22/19 05:05 Monocytes % (Manual) 1.0 % (0.0-7.3) 10/22/19 05:05 Eosinophils % (Manual) 0 % (0.0-4.3) 10/22/19 05:05 Basophils % (Manual) 2.0 % (0.0-1.8) H 10/22/19 05:05 Metamyelocytes % 0 % 10/22/19 05:05 Myelocytes % 0 % 10/22/19 05:05 Promyelocytes % 0 % 10/22/19 05:05 Blast Cells % 0 % 10/22/19 05:05 Nucleated RBC % Not Reportable 10/22/19 05:05 Seg Neutrophils # 8.2 K/mm3 (1.8-7.7) H 10/21/19 19:59 Seg Neutrophils # Man 9.7 K/mm3 (1.8-7.7) H 10/22/19 05:05 Band Neutrophils # 0.0 K/mm3 10/22/19 05:05 Lymphocytes # (Manual) 1.4 K/mm3 (1.2-5.4) 10/22/19 05:05 Abs React Lymphs (Man) 0.1 K/mm3 10/22/19 05:05 Monocytes # (Manual) 0.1 K/mm3 (0.0-0.8) 10/22/19 05:05 Eosinophils # (Manual) 0.0 K/mm3 (0.0-0.4) 10/22/19 05:05 Basophils # (Manual) 0.2 K/mm3 (0.0-0.1) H 10/22/19 05:05 Metamyelocytes # 0.0 K/mm3 10/22/19 05:05 Myelocytes # 0.0 K/mm3 10/22/19 05:05 Promyelocytes # 0.0 K/mm3 10/22/19 05:05 Blast Cells # 0.0 K/mm3 10/22/19 05:05 WBC Morphology Not Reportable 10/22/19 05:05 Hypersegmented Neuts Not Reportable 10/22/19 05:05 Hyposegmented Neuts Not Reportable 10/22/19 05:05 Hypogranular Neuts Not Reportable 10/22/19 05:05 Smudge Cells Not Reportable 10/22/19 05:05 Toxic Granulation Not Reportable 10/22/19 05:05 Toxic Vacuolation Not Reportable 10/22/19 05:05 Dohle Bodies Not Reportable 10/22/19 05:05 Pelger-Huet Anomaly Not Reportable 10/22/19 05:05 Julio Cesar Rods Not Reportable 10/22/19 05:05 Platelet Estimate Consistent w auto 10/22/19 05:05 Clumped Platelets Not Reportable 10/22/19 05:05 Plt Clumps, EDTA Not Reportable 10/22/19 05:05 Large Platelets Not Reportable 10/22/19 05:05 Giant Platelets Not Reportable 10/22/19 05:05 Platelet Satelliting Not Reportable 10/22/19 05:05 Plt Morphology Comment Not Reportable 10/22/19 05:05 RBC Morphology Not Reportable 10/22/19 05:05 Dimorphic RBCs Not Reportable 10/22/19 05:05 Polychromasia Not Reportable 10/22/19 05:05 Hypochromasia 1+ 10/22/19 05:05 Poikilocytosis Few 10/22/19 05:05 Anisocytosis 1+ 10/22/19 05:05 Microcytosis Few 10/22/19 05:05 Macrocytosis Not Reportable 10/22/19 05:05 Spherocytes Not Reportable 10/22/19 05:05 Pappenheimer Bodies Not Reportable 10/22/19 05:05 Sickle Cells Not Reportable 10/22/19 05:05 Target Cells Not Reportable 10/22/19 05:05 Tear Drop Cells Not Reportable 10/22/19 05:05 Ovalocytes Not Reportable 10/22/19 05:05 Helmet Cells Not Reportable 10/22/19 05:05 [place] Bodies Not Reportable 10/22/19 05:05 [place] Rings Not Reportable 10/22/19 05:05 Olive Cells Not Reportable 10/22/19 05:05 Bite Cells Not Reportable 10/22/19 05:05 Crenated Cell Not Reportable 10/22/19 05:05 Elliptocytes Not Reportable 10/22/19 05:05 Acanthocytes (Spur) Not Reportable 10/22/19 05:05 Rouleaux Not Reportable 10/22/19 05:05 Hemoglobin C Crystals Not Reportable 10/22/19 05:05 Schistocytes Not Reportable 10/22/19 05:05 Malaria parasites Not Reportable 10/22/19 05:05 David Bodies Not Reportable 10/22/19 05:05 Hem Pathologist Commnt No 10/22/19 05:05 PT 13.9 Sec. (12.2-14.9) 10/22/19 05:05 INR 1.06 (0.87-1.13) 10/22/19 05:05 APTT 41.1 Sec. (24.2-36.6) H 10/22/19 05:05 Sodium 144 mmol/L (137-145) 10/22/19 05:05 Potassium 5.3 mmol/L (3.6-5.0) H 10/22/19 05:05 Chloride 106.8 mmol/L (98-107) 10/22/19 05:05 Carbon Dioxide 18 mmol/L (22-30) L 10/22/19 05:05 Anion Gap 25 mmol/L 10/22/19 05:05 BUN 69 mg/dL (9-20) H 10/22/19 05:05 Creatinine 13.8 mg/dL (0.8-1.5) H 10/22/19 05:05 Estimated GFR 5 ml/min 10/22/19 05:05 BUN/Creatinine Ratio 5 % 10/22/19 05:05 Glucose 271 mg/dL (75-100) H 10/22/19 05:05 POC Glucose 244 (70-105) H 10/22/19 13:00 Calcium 9.4 mg/dL (8.4-10.2) 10/22/19 05:05 Total Bilirubin 0.30 mg/dL (0.1-1.2) 10/21/19 19:59 Direct Bilirubin < 0.2 mg/dL (0-0.2) 10/21/19 19:59 Indirect Bilirubin 0.1 mg/dL 10/21/19 19:59 AST 18 units/L (5-40) 10/21/19 19:59 ALT 11 units/L (7-56) 10/21/19 19:59 Alkaline Phosphatase 82 units/L (35-129) 10/21/19 19:59 Total Creatine Kinase 525 units/L (55-170) H 10/22/19 13:56 CK-MB (CK-2) 9.9 ng/mL (0.0-4.0) H 10/22/19 13:56 CK-MB (CK-2) Rel Index 1.8 (0-4) 10/22/19 13:56 Troponin T 1.010 ng/mL (0.00-0.029) H* 10/22/19 13:56 Total Protein 6.7 g/dL (6.3-8.2) 10/21/19 19:59 Albumin 2.9 g/dL (3.9-5) L 10/21/19 19:59 Albumin/Globulin Ratio 0.8 % 10/21/19 19:59 Triglycerides 225 mg/dL (2-149) H 10/22/19 13:56 Cholesterol 274 mg/dL (50-199) H 10/22/19 13:56 LDL Cholesterol Direct 186 mg/dL (50-130) H 10/22/19 13:56 HDL Cholesterol 62 mg/dL (40-59) H 10/22/19 13:56 Cholesterol/HDL Ratio 4.41 % 10/22/19 13:56 Lipase 42 units/L (13-60) 10/21/19 19:39 Hepatitis A IgM Ab Non-reactive (NonReactive) 10/22/19 08:49 Hep Bs Antigen Non-reactive (Negative) 10/22/19 08:49 Hep B Core IgM Ab Non-reactive (NonReactive) 10/22/19 08:49 Hepatitis C Antibody Non-reactive (NonReactive) 10/22/19 08:49 Active Medications - Current Medications Current Medications: Generic Name Dose Route Start Last Admin Trade Name Freq PRN Reason Stop Dose Admin Clonidine HCl 0.2 mg 10/22/19 14:00 10/22/19 13:30 Catapres-Tts Patch TD 0.2 mg Th [facility] Administration Heparin Sodium (Porcine) 5,000 unit 10/22/19 06:00 10/22/19 13:52 Heparin SUB-Q 5,000 unit Q8HR [facility] Administration Nitroglycerin/Dextrose 50 mg in 250 mls @ 3 mls/hr 10/21/19 22:00 10/22/19 17:15 Tridil Drip 50mg/250ml IV 200 mcg/min TITR KESHIA 60 mls/hr Titration Protocol 10 MCG/MIN Insulin Glargine 13 units 10/23/19 08:00 Lantus SUB-Q QAMDIAB KESHIA Insulin Human Lispro 0 unit 10/22/19 13:00 10/22/19 18:32 Humalog SUB-Q Not Given Q6HR [facility] Protocol Magnesium Hydroxide 30 ml 10/21/19 22:36 Milk Of Magnesia PO Q4H PRN Constipation Metoclopramide HCl 5 mg 10/22/19 11:30 10/22/19 17:30 Reglan IV 5 mg ACHS KESHIA Administration Metoprolol Tartrate 5 mg 10/22/19 22:00 Metoprolol IV Q4HR [facility] Morphine Sulfate 2 mg 10/21/19 22:36 Morphine IV Q4H PRN Pain, Moderate (4-6) Ondansetron HCl 4 mg 10/21/19 22:36 10/22/19 12:20 Zofran IV 4 mg Q8H PRN Administration Nausea And Vomiting Pantoprazole Sodium 40 mg 10/22/19 10:00 10/22/19 09:19 Protonix IV 40 mg BID KESHIA Administration Sodium Chloride 10 ml 10/22/19 10:00 10/22/19 09:39 Sodium Chloride Flush Syringe 10 Ml IV 10 ml BID KESHIA Administration Sodium Chloride 10 ml 10/21/19 22:36 Sodium Chloride Flush Syringe 10 Ml IV PRN PRN LINE FLUSH Nutrition/Malnutrition Assess - Dietary Evaluation Nutrition/Malnutrition Findings: Nutrition Notes Start: 10/22/19 11:19 Freq: Status: Active Protocol: Document 10/22/19 11:19 DW (Rec: 10/22/19 11:21 DW [id number]) Co-Sign 10/22/19 11:19 LP Nutrition Notes Need for Assessment generated from: MD Order,Education Initial or Follow up Brief Note Current Diagnosis CKD (stage V CKD),Diabetes Other Pertinent Diagnosis on HD Current Diet Cardiac Labs/Tests K 5.3 BUN 69 Cr 13.8 Glu 271 Pertinent Medications Heparin Height 6 ft 3 in Weight 86.183 kg [place] Body Weight (kg) 89.09 BMI 23.7 Subjective/Other Information MD consult for education Pt receiving HD and asleep upon arrival. Unable to assess or educate. Nutrition Intervention Follow-Up By: 10/23/19 Additional Comments FU education/assessment
--- NOTE | 2019-10-23 00:42 | Consultation ---
PULMONARY CRITICAL CARE CONSULTATION CONSULTING PHYSICIAN: Sandip Boyce MD REASON FOR CONSULTATION: Critical care management, hypertensive emergency. CHIEF COMPLAINT AND HISTORY OF PRESENT ILLNESS: The patient is a 33-year-old -[place] male with past medical history significant for a diagnosis of end-stage renal disease, on dialysis perhaps with an element of noncompliance showed up in the Emergency Room yesterday complaining of nausea and vomiting and abdominal pain. He stated he was sick at home and therefore, had missed about a week of dialysis. Emergency medical services brought him in actively vomiting. Pain was crampy, no radiation. He denied fevers or chills. Blood pressure was 240/134 when measured. He was stabilized in the Emergency Room, placed on a nitroglycerin drip and admitted to the intensive care unit when I stopped by to see him. I should mention the patient also complained of some chest pain. He denied any significant radiation of the pain and really could not describe alleviating or relieving factors well. He could not tell me if the pain began prior to these episodes of nausea and vomiting or afterwards, but he denies any hematemesis. With regards to tobacco use/abuse history, he denies history of tobacco use or abuse whatsoever. It really is as much of the history of presentation as I have. PAST MEDICAL HISTORY: End-stage renal disease, on dialysis; history of esophagitis; history of gastroparesis. Also, history of hypertension, history of diabetes, history of asthma. PAST SURGICAL HISTORY: He has had his right great toe amputated. MEDICATIONS: He was on at the time I stopped by to see him were reviewed. Pertinent medications included the following: He had just been started on a Catapres, clonidine 0.2 mg transdermal q. week patch; heparin 5000 units subcutaneous q. 8 hours; insulin via sliding scale; Reglan 5 mg IV q.a.c. and at bedtime; metoprolol 5 mg IV q. 6 hours scheduled; morphine sulfate 2 mg IV q. 4 hours p.r.n. moderate pain; Tridil drip was going at 170 mcg per minute, initially this was before dialysis; Zofran 4 mg IV q. 8 hours p.r.n. nausea and vomiting; Protonix 40 mg IV b.i.d. ALLERGIES: No known drug allergies. DIET: Well-built gentleman. Denies acute weight loss or gain in the preceding few weeks to months. FAMILY AND SOCIAL HISTORY: Lives in the community. Denies alcohol, tobacco, or illicit drug use or abuse. Family history is otherwise noncontributory. REVIEW OF SYSTEMS: No loss of consciousness. No new onset seizures. No new onset focal weakness. Denies gross hematochezia or melena. Denies gross hematuria or dysuria. No hematemesis. No hemoptysis, no palpitations. He did have the chest pain. Denies polydipsia or polyuria. Denied heat or cold intolerance. Complete 13-system review of systems obtained. Pertinent positives and/or negatives as in body of history above, otherwise noncontributory. PHYSICAL EXAMINATION: VITAL SIGNS: At presentation in the Emergency Room, he was afebrile, temperature was 98.6 degrees Fahrenheit. Pulse was 116, respiratory rate 26, blood pressure was 253/143, O2 sats 100%, in spite oxygen concentration at that time was not recorded. When I stopped by to see him, O2 sats were 99% on room air. GENERAL: He is a well-built young -[place] male. Normocephalic, atraumatic, resting in bed with mildly increased respiratory effort at rest. HEAD, EYES, EARS, NOSE, AND THROAT: Anicteric. No conjunctival erythema. Oropharynx is moist. Mallampati #2 oropharynx. No gross jugular venous distention. Grossly, no palpable lymph nodes of the supraclavicular or submandibular lymph node chains. LUNGS: Auscultation of both lung stallworth were unremarkable. Lungs were clear bilaterally with good bilateral breath sounds. He had a right IJ, I believe Vas-Cath in the right upper anterior chest wall. ABDOMEN: Soft, flat. Bowel sounds are positive, nontender. No palpable hepatosplenomegaly. EXTREMITIES: Without overt digital clubbing, no cyanosis, no pedal edema. He has the right great toe amputation. NEUROLOGIC: Pupils are equal, round, about 4 mm, reactive to light. Extraocular muscle movements are intact. He moves all 4 extremities spontaneously. SKIN: Poor turgor; however, without overt cellulitis or rash. PSYCHIATRIC: Mood was normal. Affect was appropriate. LABORATORY DATA: From my review are as follows: Admission white cell count 10,200 with a hemoglobin of 10.6, hematocrit of 32.4, platelet count of 404. No band forms were reported. INR 1.04. Serum sodium was 144, potassium 5.3, chloride 104, bicarbonate was 17, BUN 69, creatinine 13.0, glucose 233. Liver function tests essentially within normal limits. Albumin was low at 2.9. Hepatitis screen nonreactive. No microbiology studies to my review. Chest x-ray showed borderline cardiomegaly. Right IJ Vas-Cath with the tip in the distal SVC/right atrium junction. No focal infiltrates. EKG was done, a 12-lead EKG. I have reviewed the film. No ST elevations. He did have a slightly prolonged QT interval. No significant T-wave inversions. This was from yesterday night. ASSESSMENT: 1. Hypertensive emergency. 2. Chest pain. 3. End-stage renal disease, on dialysis, poorly compliant. 4. Nausea and vomiting. 5. Abdominal pain. 6. Anemia that is microcytic. 7. Mild metabolic acidosis. 8. Hyperkalemia. 9. Hyperglycemia. 10. History of diabetes. PLAN: I do agree with current therapies. I certain that the uremia and possible element of volume overload are contributing to the hypertensive emergency. He is doing better as he is on dialysis. We are able to hold the Tridil drip for now. He will probably need it once that is done and I will probably be continued for the question of the chest pain. He is not complaining about. Cardiac enzymes will be ordered and addressed as necessary. I will repeat a 12-lead EKG on this gentleman just been told that the serum troponin is up at 1.01, I believe. I have counseled better medical care compliance. I will defer to the education intern for hemodialysis and ultrafiltration for volume and toxin control. Reglan as scheduled will be continued. We will put him on a sliding scale for his diabetes. I will also begin Lantus insulin at 5 units daily and increase it to his home dose of 13 as tolerated. PT/OT will be ordered once he is more stable. Cardiology consult to be placed. He is appropriately on GI prophylaxis. He will be on ulcer and DVT prophylaxis with heparin. Flu and pneumonia vaccination will be addressed per protocol. We will wean the Tridil drip to keep his systolic blood pressures about 150-160 or less and I will leave it on for a possible acute coronary syndrome until reevaluated by the photogrammetrist. Thank you very much for the consult Dr. Boyce. We will follow along and make further recommendations as picture progresses/becomes clearer. He is critically ill on life-sustaining interventions including the vasopressor support with the Tridil or vasoactive medications I should say at risk of further decompensation including the risk of . At this time, I spent about 35-40 minutes of critical care time without overlap and excluding any procedural time that may be necessary. JOB# [id number] J LUIS/EASTON MORA
[2019-10-23] MEDS: NITROGLYCERIN DRIP 50 MG/250 ML BOTTLE IV SCH ×2 (01:00→08:47)
[2019-10-23] MEDS: METOPROLOL TARTRATE 5 MG/5 ML INJ IV SCH ×3 (02:03→09:56)
[2019-10-23 05:36] LABS: Hematocrit 24.7 % (35.5-45.6); Hemoglobin 8.1 gm/dl (11.8-15.2); Mean Corpuscular HGB Conc 33 % (32-34); Mean Corpuscular Volume 78 fl (84-94); Platelet Count 343 K/mm3 (140-440); Red Blood Count 3.15 M/mm3 (3.65-5.03)
[2019-10-23 05:37] LABS: Red Cell Distribution Width 20.3 % (13.2-15.2)
[2019-10-23] MEDS: HEPARIN 5,000 UNIT/1 ML VIAL SUB-Q SCH ×3 (05:39→22:13)
[2019-10-23] MEDS: INSULIN LISPRO 100 UNIT/ML SUB-Q SCH ×4 (05:42→22:15)
--- NOTE | 2019-10-23 08:12 | Progress Note ---
Assessment and Plan Hypertensive emergency. Chest pain. End-stage renal disease, on dialysis, poorly compliant. Nausea and vomiting. Abdominal pain. Anemia that is microcytic. Mild metabolic acidosis. Hyperkalemia. Hyperglycemia. History of diabetes. - supplemental oxygen as needed to keep O2 sat's > 90% - complete ACS w/up per cardiology - uptitrate oral antihypertensives - continue HD/UF per nephrology prescription for toxin and volume clearance - prn antiemetics - PT/OT as tolerated - mobility protocols for pressure ulcer prophylaxis - continue accuchecks with glycemic control per SSI for target BG < 180 mg/dl - GI & VTE prophylaxis - Flu & pneumovax addressed per protocol - continue other care per attending / other consultants ... re-evaluate in am & prn Subjective Date of service: 10/23/19 Principal diagnosis: HTNsive emergency; Chest pain; ESRD on Dialysis; N & V; Abd. pain; DM II Interval history: Patient is seen today for: Hypertensive emergency; Chest pain; ESRD on Dialysis; N & V; Abdominal pain; DM II Seen and examined at bedside; 24hour events reviewed; nursing and respiratory care staff consulted; no adverse overnight events reported to me; resting peacefully in bed; feels better; seen by cardiology and ACS w/up ongoing; no chest pains or palpitations Objective Vital Signs - 12hr 10/22/19 10/22/19 10/22/19 20:10 20:15 20:18 Temperature Pulse Rate 98 H 98 H 113 H Respiratory 16 14 Rate Blood Pressure O2 Sat by Pulse Oximetry 10/22/19 10/22/19 10/22/19 20:20 20:25 20:30 Temperature Pulse Rate 98 H 102 H 100 H Respiratory 14 19 19 Rate Blood Pressure 168/110 195/120 205/130 O2 Sat by Pulse 100 100 Oximetry 10/22/19 10/22/19 10/22/19 20:35 20:40 20:45 Temperature Pulse Rate 98 H 96 H 97 H Respiratory 14 15 15 Rate Blood Pressure 204/126 191/115 179/113 O2 Sat by Pulse 100 100 100 Oximetry 10/22/19 10/22/19 10/22/19 20:50 20:55 21:00 Temperature Pulse Rate 97 H 96 H 96 H Respiratory 15 13 14 Rate Blood Pressure 181/112 180/111 191/115 O2 Sat by Pulse 100 100 Oximetry 10/22/19 10/22/19 10/22/19 21:05 21:10 21:15 Temperature Pulse Rate 95 H 98 H 95 H Respiratory 14 14 13 Rate Blood Pressure 171/105 169/107 172/109 O2 Sat by Pulse 100 100 100 Oximetry 10/22/19 10/22/19 10/22/19 21:20 21:25 21:30 Temperature Pulse Rate 102 H 99 H 98 H Respiratory 12 15 14 Rate Blood Pressure 179/104 177/111 166/105 O2 Sat by Pulse 100 98 Oximetry 10/22/19 10/22/19 10/22/19 21:35 21:37 21:40 Temperature Pulse Rate 100 H 112 H 115 H Respiratory 15 22 Rate Blood Pressure 167/108 167/108 146/89 O2 Sat by Pulse 99 100 Oximetry 10/22/19 10/22/19 10/22/19 21:45 21:50 21:56 Temperature Pulse Rate 103 H 100 H 92 H Respiratory 17 28 H 12 Rate Blood Pressure 154/100 O2 Sat by Pulse 100 100 100 Oximetry 10/22/19 10/22/19 10/22/19 22:00 22:05 22:10 Temperature Pulse Rate 91 H 90 91 H Respiratory 14 13 19 Rate Blood Pressure O2 Sat by Pulse 100 100 100 Oximetry 10/22/19 10/22/19 10/22/19 22:15 22:20 22:25 Temperature Pulse Rate 92 H 94 H 108 H Respiratory 13 14 32 H Rate Blood Pressure 175/111 177/112 159/106 O2 Sat by Pulse 100 100 99 Oximetry 10/22/19 10/22/19 10/22/19 22:30 22:35 22:40 Temperature Pulse Rate 102 H 90 90 Respiratory 19 12 13 Rate Blood Pressure 185/103 O2 Sat by Pulse 100 100 100 Oximetry 10/22/19 10/23/19 10/23/19 23:25 00:00 00:20 Temperature 98.4 F Pulse Rate 90 Respiratory 17 Rate Blood Pressure 214/126 O2 Sat by Pulse 100 100 Oximetry 10/23/19 10/23/19 10/23/19 00:25 00:30 00:35 Temperature Pulse Rate 90 93 H 93 H Respiratory 11 L 12 12 Rate Blood Pressure 202/123 202/123 158/102 O2 Sat by Pulse 100 100 Oximetry 10/23/19 10/23/19 10/23/19 00:40 00:45 00:50 Temperature Pulse Rate 96 H 100 H 97 H Respiratory 14 15 14 Rate Blood Pressure 144/94 151/101 139/89 O2 Sat by Pulse 100 Oximetry 10/23/19 10/23/19 10/23/19 00:55 01:00 01:06 Temperature Pulse Rate 97 H 102 H 114 H Respiratory 13 15 22 Rate Blood Pressure 137/90 143/96 143/96 O2 Sat by Pulse 100 Oximetry 10/23/19 10/23/19 10/23/19 01:10 01:15 01:20 Temperature Pulse Rate 96 H 93 H 94 H Respiratory 12 12 12 Rate Blood Pressure 158/101 141/85 122/83 O2 Sat by Pulse 100 100 100 Oximetry 10/23/19 10/23/19 10/23/19 01:25 01:30 01:35 Temperature Pulse Rate 91 H 92 H 92 H Respiratory 12 12 14 Rate Blood Pressure 139/86 125/77 124/74 O2 Sat by Pulse 100 100 99 Oximetry 10/23/19 10/23/19 10/23/19 01:40 01:45 01:50 Temperature Pulse Rate 96 H 94 H 93 H Respiratory 13 12 13 Rate Blood Pressure 138/93 143/87 129/83 O2 Sat by Pulse 99 99 99 Oximetry 10/23/19 10/23/19 10/23/19 01:55 02:00 02:03 Temperature Pulse Rate 93 H 92 H 93 H Respiratory 11 L 13 Rate Blood Pressure 144/96 147/94 147/94 O2 Sat by Pulse 100 100 Oximetry 10/23/19 10/23/19 10/23/19 02:05 02:10 02:15 Temperature Pulse Rate 89 85 84 Respiratory 14 11 L 13 Rate Blood Pressure 149/96 138/93 137/84 O2 Sat by Pulse 100 100 100 Oximetry 10/23/19 10/23/19 10/23/19 02:20 02:25 02:30 Temperature Pulse Rate 89 89 89 Respiratory 19 18 13 Rate Blood Pressure 135/87 136/90 142/90 O2 Sat by Pulse 100 100 100 Oximetry 10/23/19 10/23/19 10/23/19 02:35 02:40 02:45 Temperature Pulse Rate 85 85 87 Respiratory 14 12 17 Rate Blood Pressure 148/93 128/83 127/82 O2 Sat by Pulse 100 100 100 Oximetry 10/23/19 10/23/19 10/23/19 02:50 02:55 03:00 Temperature Pulse Rate 89 87 84 Respiratory 17 12 12 Rate Blood Pressure 148/90 152/95 148/89 O2 Sat by Pulse 100 100 100 Oximetry 10/23/19 10/23/19 10/23/19 03:05 03:10 03:15 Temperature Pulse Rate 84 84 84 Respiratory 11 L 18 11 L Rate Blood Pressure 144/90 159/93 154/92 O2 Sat by Pulse 100 100 100 Oximetry 10/23/19 10/23/19 10/23/19 03:17 03:20 03:25 Temperature 98.8 F Pulse Rate 84 83 Respiratory 10 L 10 L Rate Blood Pressure 167/94 150/87 O2 Sat by Pulse 100 100 Oximetry 10/23/19 10/23/19 10/23/19 03:30 03:35 03:40 Temperature Pulse Rate 86 84 86 Respiratory 17 12 16 Rate Blood Pressure 149/95 156/96 168/102 O2 Sat by Pulse 100 100 100 Oximetry 10/23/19 10/23/19 10/23/19 03:46 03:50 03:55 Temperature Pulse Rate 91 H 86 87 Respiratory 16 9 L 12 Rate Blood Pressure 165/103 187/105 178/108 O2 Sat by Pulse 98 99 99 Oximetry 10/23/19 10/23/19 10/23/19 04:00 04:05 04:10 Temperature Pulse Rate 84 85 86 Respiratory 11 L 12 12 Rate Blood Pressure 186/101 176/103 174/100 O2 Sat by Pulse 100 100 100 Oximetry 10/23/19 10/23/19 10/23/19 04:15 04:20 04:25 Temperature Pulse Rate 86 91 H 85 Respiratory 12 15 10 L Rate Blood Pressure 169/100 171/101 O2 Sat by Pulse 100 100 100 Oximetry 10/23/19 10/23/19 10/23/19 04:30 04:35 04:40 Temperature Pulse Rate 84 84 88 Respiratory 12 9 L 12 Rate Blood Pressure 171/100 168/100 165/106 O2 Sat by Pulse 100 100 100 Oximetry 10/23/19 10/23/19 10/23/19 04:45 04:50 04:55 Temperature Pulse Rate 83 85 83 Respiratory 13 21 11 L Rate Blood Pressure 159/92 154/100 178/100 O2 Sat by Pulse 100 100 100 Oximetry 10/23/19 10/23/19 10/23/19 05:00 05:05 05:10 Temperature Pulse Rate 83 86 98 H Respiratory 13 13 14 Rate Blood Pressure 171/96 165/102 196/113 O2 Sat by Pulse 100 100 99 Oximetry 10/23/19 10/23/19 10/23/19 05:16 05:20 05:25 Temperature Pulse Rate 86 87 82 Respiratory 15 17 10 L Rate Blood Pressure O2 Sat by Pulse 100 100 100 Oximetry 10/23/19 10/23/19 10/23/19 05:30 05:35 05:39 Temperature Pulse Rate 81 81 87 Respiratory 10 L 11 L Rate Blood Pressure 197/110 176/104 176/104 O2 Sat by Pulse 100 100 Oximetry 10/23/19 10/23/19 10/23/19 05:40 05:45 05:50 Temperature Pulse Rate 86 83 81 Respiratory 14 17 12 Rate Blood Pressure O2 Sat by Pulse 100 100 100 Oximetry 10/23/19 10/23/19 10/23/19 05:55 06:00 06:05 Temperature Pulse Rate 81 80 82 Respiratory 10 L 10 L 13 Rate Blood Pressure 163/107 163/98 O2 Sat by Pulse 100 100 100 Oximetry 10/23/19 10/23/19 10/23/19 06:10 06:15 06:20 Temperature Pulse Rate 83 84 83 Respiratory 11 L 11 L 10 L Rate Blood Pressure 146/97 144/91 153/97 O2 Sat by Pulse 100 100 100 Oximetry 10/23/19 10/23/19 10/23/19 06:25 06:30 06:35 Temperature Pulse Rate 82 81 87 Respiratory 12 10 L 9 L Rate Blood Pressure 153/98 150/93 145/98 O2 Sat by Pulse 100 100 100 Oximetry 10/23/19 10/23/19 10/23/19 06:40 06:45 06:50 Temperature Pulse Rate 84 83 82 Respiratory 12 12 11 L Rate Blood Pressure 153/97 156/98 158/95 O2 Sat by Pulse 100 100 100 Oximetry Constitutional: no acute distress, other (young AAM normocephalic with normal resp effort at rest) Eyes: non-icteric ENT: oropharynx moist Neck: supple, no lymphadenopathy, no JVD Effort: normal Ascultation: Bilateral: clear Percussion: Bilateral: not dull Cardiovascular: regular rate and rhythm Gastrointestinal: normoactive bowel sounds, soft, non-tender, non-distended Integumentary: normal Extremities: no cyanosis, no edema, pulses normal, no ischemia or petechiae Neurologic: normal mental status, non-focal exam, pupils equal and round, CN II- XII normal Psychiatric: mood appropriate, affect normal CBC and BMP: 10/23/19 05:06 10/23/19 05:06 ABG, PT/INR, D-dimer: PT/INR, D-dimer PT 13.9 Sec. (12.2-14.9) 10/22/19 05:05 INR 1.06 (0.87-1.13) 10/22/19 05:05 Abnormal lab findings: Abnormal Labs 10/21/19 10/21/19 10/22/19 19:59 19:59 05:05 WBC 11.5 H RBC 3.42 L Hgb 10.6 L 8.7 L Hct 32.4 L 26.9 L MCV 79 L 79 L MCH 26 L 26 L RDW 20.2 H 20.5 H Seg Neutrophils % 80.3 H Seg Neuts % (Manual) 84.0 H Lymphocytes % (Manual) 12.0 L Basophils % (Manual) 2.0 H Seg Neutrophils # 8.2 H Seg Neutrophils # Man 9.7 H Basophils # (Manual) 0.2 H APTT Potassium 5.3 H Carbon Dioxide 17 L BUN 69 H Creatinine 13.0 H Glucose 233 H POC Glucose Total Creatine Kinase CK-MB (CK-2) Troponin T Total Protein Albumin 2.9 L Triglycerides Cholesterol LDL Cholesterol Direct HDL Cholesterol 10/22/19 10/22/19 10/22/19 05:05 05:05 08:26 WBC RBC Hgb Hct MCV MCH RDW Seg Neutrophils % Seg Neuts % (Manual) Lymphocytes % (Manual) Basophils % (Manual) Seg Neutrophils # Seg Neutrophils # Man Basophils # (Manual) APTT 41.1 H Potassium 5.3 H Carbon Dioxide 18 L BUN 69 H Creatinine 13.8 H Glucose 271 H POC Glucose 266 H Total Creatine Kinase CK-MB (CK-2) Troponin T Total Protein Albumin Triglycerides Cholesterol LDL Cholesterol Direct HDL Cholesterol 10/22/19 10/22/19 10/22/19 13:00 13:56 23:20 WBC RBC Hgb Hct MCV MCH RDW Seg Neutrophils % Seg Neuts % (Manual) Lymphocytes % (Manual) Basophils % (Manual) Seg Neutrophils # Seg Neutrophils # Man Basophils # (Manual) APTT Potassium Carbon Dioxide BUN Creatinine Glucose POC Glucose 244 H 266 H Total Creatine Kinase 525 H CK-MB (CK-2) 9.9 H Troponin T 1.010 H* Total Protein Albumin Triglycerides 225 H Cholesterol 274 H LDL Cholesterol Direct 186 H HDL Cholesterol 62 H 10/23/19 10/23/19 10/23/19 05:06 05:06 05:29 WBC RBC 3.15 L Hgb 8.1 L Hct 24.7 L MCV 78 L MCH 26 L RDW 20.3 H Seg Neutrophils % Seg Neuts % (Manual) Lymphocytes % (Manual) Basophils % (Manual) Seg Neutrophils # Seg Neutrophils # Man Basophils # (Manual) APTT Potassium Carbon Dioxide BUN 34 H Creatinine 8.9 H Glucose 148 H POC Glucose 133 H Total Creatine Kinase CK-MB (CK-2) Troponin T Total Protein 5.7 L Albumin 3.0 L Triglycerides Cholesterol LDL Cholesterol Direct HDL Cholesterol Chest x-ray: image reviewed Allied health notes reviewed: nursing
[2019-10-23] MEDS: METOCLOPRAMIDE 10 MG/2 ML INJ IV SCH ×4 (08:28→22:14)
[2019-10-23] MEDS: INSULIN GLARGINE 100 UNITS/ML SUB-Q SCH (08:29)
[2019-10-23 09:03] LABS: Creatine Kinase MB 6.6 ng/mL (0.0-4.0)
[2019-10-23] MEDS: PANTOPRAZOLE 40 MG INJ IV SCH (09:56)
[2019-10-23] MEDS ORDERED: LORazepam 0.5 MG TAB PO PRN (10:05)
[2019-10-23] MEDS ORDERED: METOPROLOL TARTRATE 5 MG/5 ML INJ IV PRN (10:41)
[2019-10-23] MEDS: amLODIPine 10 MG TAB PO SCH (11:00)
[2019-10-23] MEDS: LOSARTAN 50 MG TAB PO SCH (11:00)
--- NOTE | 2019-10-23 11:48 | Gastroenterology Progress Note ---
Assessment and Plan 1.UGIB/coffee-ground emesis -H/H 8.1/24.7-stable -continue to monitor H/H and transfuse as needed -multiple prior EGDs (x 2 this year) for similar symptoms showing ulcerative esophagitis, which is most likely the etiology of CGE 2.N/V-etiology multifactorial (gastroparesis due to uncontrolled DM vs functional component vs other) -clinically, patient reports feeling better with N/V now improved. Denies abd pain. No active signs of bleeding overnight or this am. -no plan for repeat EGD unless drop in H/H or overt bleeding develops -okay to start on trial of clear liquids-advance diet as tolerated -continue high dose PPI -avoid narcotics for this may exacerbate symptoms -consider low dose/short term Ativan if N/V persists -optimize glycemic control -continue supportive care -patient okay to be d/c per GI standpoint once tolerating PO in PPI BID with f/u in clinic -will sign off, please call if needed 3.DM 4.ESRD 5.noncompliance Subjective Date of service: 10/23/19 Principal diagnosis: UGIB Interval history: Patient sitting up in bedside chair this am w/o acute distress. Reports feeling better with N/V now improved (no episodes of vomiting since yesterday). Requesting water to drink. Denies abd pain or active signs of bleeding overnight or this am. Objective - Constitutional Vitals: Temp Pulse Resp BP Pulse Ox 98.9 F 89 18 148/94 100 10/23/19 08:00 10/23/19 11:00 10/23/19 11:00 10/23/19 11:00 10/23/19 11:00 General appearance: no acute distress - EENT Eyes: PERRL, EOM intact ENT: hearing intact - Respiratory Respiratory effort: normal - Cardiovascular Rhythm: regular - Gastrointestinal General gastrointestinal: Present: soft, non-tender, non-distended, normal bowel sounds - Neurologic Neurological: alert and oriented x3 - Labs CBC & Chem 7: 10/23/19 05:06 10/23/19 05:06 Labs: Laboratory Results - last 24 hr 10/22/19 10/22/19 10/22/19 08:49 13:00 13:56 WBC RBC Hgb Hct MCV MCH MCHC RDW Plt Count Sodium Potassium Chloride Carbon Dioxide Anion Gap BUN Creatinine Estimated GFR BUN/Creatinine Ratio Glucose POC Glucose 244 H Calcium Total Bilirubin AST ALT Alkaline Phosphatase Total Creatine Kinase 525 H CK-MB (CK-2) 9.9 H CK-MB (CK-2) Rel Index 1.8 Troponin T 1.010 H* Total Protein Albumin Albumin/Globulin Ratio Triglycerides 225 H Cholesterol 274 H LDL Cholesterol Direct 186 H HDL Cholesterol 62 H Cholesterol/HDL Ratio 4.41 Hepatitis A IgM Ab Non-reactive Hep Bs Antigen Non-reactive Hep B Core IgM Ab Non-reactive Hepatitis C Antibody Non-reactive 10/22/19 10/23/19 10/23/19 23:20 05:06 05:06 WBC 10.9 RBC 3.15 L Hgb 8.1 L Hct 24.7 L MCV 78 L MCH 26 L MCHC 33 RDW 20.3 H Plt Count 343 Sodium 142 Potassium 4.6 Chloride 101.1 Carbon Dioxide 28 D Anion Gap 18 BUN 34 H Creatinine 8.9 H Estimated GFR 8 BUN/Creatinine Ratio 4 Glucose 148 H POC Glucose 266 H Calcium 9.0 Total Bilirubin 0.20 AST 18 ALT 10 Alkaline Phosphatase 67 Total Creatine Kinase CK-MB (CK-2) CK-MB (CK-2) Rel Index Troponin T Total Protein 5.7 L Albumin 3.0 L Albumin/Globulin Ratio 1.1 Triglycerides Cholesterol LDL Cholesterol Direct HDL Cholesterol Cholesterol/HDL Ratio Hepatitis A IgM Ab Hep Bs Antigen Hep B Core IgM Ab Hepatitis C Antibody 10/23/19 10/23/19 05:06 05:29 WBC RBC Hgb Hct MCV MCH MCHC RDW Plt Count Sodium Potassium Chloride Carbon Dioxide Anion Gap BUN Creatinine Estimated GFR BUN/Creatinine Ratio Glucose POC Glucose 133 H Calcium Total Bilirubin AST ALT Alkaline Phosphatase Total Creatine Kinase 647 H CK-MB (CK-2) 6.6 H CK-MB (CK-2) Rel Index 1.0 Troponin T 0.869 H* Total Protein Albumin Albumin/Globulin Ratio Triglycerides Cholesterol LDL Cholesterol Direct HDL Cholesterol Cholesterol/HDL Ratio Hepatitis A IgM Ab Hep Bs Antigen Hep B Core IgM Ab Hepatitis C Antibody
--- NOTE | 2019-10-23 12:20 | Consultation ---
History of Present Illness Consult date: 10/23/19 Requesting physician: FAITH [facility] Consult reason: chest pain, elevated troponin History of present illness: The patient is a 33-year-old -[place] male with a past medical history of ESRD on HD, HTN, DM, gastroparesis, ulcerative esophagitis. He has been seen by our practice on prior hospitalization. He presented with complaint of abdominal pain, nausea, vomiting and chest pain for the past 1 week. He missed dialysis for the past 1 week. He is a rather poor historian and will not provide any additional details. He was noted to have hypertensive emergency following arrival and was initiated on nitro gtt. On evaluation, he is laying in bed with blankets over his head with no current complaints. Nitro gtt has been weaned off. Echo done 08/2019 showed EF 45-50%, mod LVH, impaired relaxation, trivial pericardial effusion. Past History Past Medical History: ESRD, other (Esophagitis, gastroparesis) Past Surgical History: Other (Right great toe amputation) Social history: no significant social history Family history: no significant family history Medications and Allergies Allergies Allergy/AdvReac Type Severity Reaction Status Date / Time No Known Allergies Allergy Verified 11/21/18 17:51 Home Medications Medication Instructions Recorded Confirmed Last Taken Type Losartan [Cozaar] 100 mg PO QDAY #30 tablet 09/10/19 10/23/19 10/20/19 16:00 Rx Metoclopramide [Reglan ORAL LIQ] 10 mg PO QID 30 Days 09/10/19 10/23/19 10/21/19 08:00 Rx Pantoprazole [Protonix TAB] 40 mg PO BIDAC #60 09/10/19 10/23/19 10/21/19 07:00 Rx amLODIPine 10 mg PO QDAY #30 tablet 09/10/19 10/23/19 10/21/19 08:00 Rx Insulin Glargine [Lantus VIAL] 13 units SUB-Q QHS 10/23/19 10/23/19 10/20/19 22:00 History Lispro Insulin [HumaLOG] 5 units SUB-Q PC 10/23/19 10/23/19 10/20/19 15:30 History labetaloL [Labetalol 200mg TAB] 200 mg PO BID 10/23/19 10/23/19 10/21/19 History Active Meds: Active Medications Amlodipine Besylate (Amlodipine) 10 mg PO QDAY [facility] Last Admin: 10/23/19 11:00 Dose: 10 mg Documented by: Clonidine HCl (Catapres-Tts Patch) 0.1 mg TD Th [facility] Heparin Sodium (Porcine) (Heparin) 5,000 unit SUB-Q Q8HR [facility] Last Admin: 10/23/19 05:39 Dose: 5,000 unit Documented by: Nitroglycerin/Dextrose (Tridil Drip 50mg/250ml) 50 mg in 250 mls @ 3 mls/hr IV TITR [facility]; Protocol Last Titration: 10/23/19 12:15 Dose: 50 mcg/min, 15 mls/hr Documented by: Insulin Glargine (Lantus) 13 units SUB-Q QAMDIAB [facility] Last Admin: 10/23/19 08:29 Dose: 13 units Documented by: Insulin Human Lispro (Humalog) 0 unit SUB-Q Q6HR [facility]; Protocol Last Admin: 10/23/19 05:42 Dose: Not Given Documented by: Labetalol HCl (Labetalol) 200 mg PO Q8HR [facility] Last Admin: 10/23/19 11:00 Dose: 200 mg Documented by: Lorazepam (Ativan) 0.5 mg PO Q6H PRN PRN Reason: N/V unrelieved by ZOFRAN Losartan Potassium (Cozaar) 100 mg PO QDAY [facility] Last Admin: 10/23/19 11:00 Dose: 100 mg Documented by: Magnesium Hydroxide (Milk Of Magnesia) 30 ml PO Q4H PRN PRN Reason: Constipation Metoclopramide HCl (Reglan) 5 mg IV [facility] Last Admin: 10/23/19 11:31 Dose: 5 mg Documented by: Metoprolol Tartrate (Metoprolol) 5 mg IV Q4HR PRN PRN Reason: Hypertension Morphine Sulfate (Morphine) 2 mg IV Q4H PRN PRN Reason: Pain, Moderate (4-6) Ondansetron HCl (Zofran) 4 mg IV Q8H PRN PRN Reason: Nausea And Vomiting Last Admin: 10/22/19 19:43 Dose: 4 mg Documented by: Pantoprazole Sodium (Protonix) 40 mg IV BID [facility] Last Admin: 10/23/19 09:56 Dose: 40 mg Documented by: Sodium Chloride (Sodium Chloride Flush Syringe 10 Ml) 10 ml IV BID [facility] Last Admin: 10/23/19 09:56 Dose: 10 ml Documented by: Sodium Chloride (Sodium Chloride Flush Syringe 10 Ml) 10 ml IV PRN PRN PRN Reason: LINE FLUSH Review of Systems Cardiovascular: chest pain, shortness of breath, dyspnea on exertion Gastrointestinal: abdominal pain, nausea, vomiting Physical Examination Vital Signs Pulse Resp Pulse Ox 116 H 26 H 100 10/21/19 19:22 10/21/19 19:22 10/21/19 19:22 General appearance: no acute distress HEENT: Positive: PERRL, Normocephaly, Mucus Membranes Moist Neck: Positive: neck supple, trachea midline Cardiac: Positive: Reg Rate and Rhythm, S1/S2 Lungs: Positive: Decreased Breath Sounds Neuro: Positive: Grossly Intact Abdomen: Negative: Tender Male genitourinary: Negative: tender Musculoskeletal: No Pain Extremities: Absent: edema Results 10/23/19 05:06 10/23/19 05:06 Cardiac Enzymes 10/22/19 10/23/19 10/23/19 Range/Units 13:56 05:06 05:06 AST 18 (5-40) units/L CK-MB (CK-2) 9.9 H 6.6 H (0.0-4.0) ng/mL Lipids 10/22/19 Range/Units 13:56 Triglycerides 225 H (2-149) mg/dL Cholesterol 274 H (50-199) mg/dL HDL Cholesterol 62 H (40-59) mg/dL Cholesterol/HDL Ratio 4.41 % CBC 10/23/19 Range/Units 05:06 WBC 10.9 (4.5-11.0) K/mm3 RBC 3.15 L (3.65-5.03) M/mm3 Hgb 8.1 L (11.8-15.2) gm/dl Hct 24.7 L (35.5-45.6) % Plt Count 343 (140-440) K/mm3 Comprehensive Metabolic Panel 10/23/19 Range/Units 05:06 Sodium 142 (137-145) mmol/L Potassium 4.6 (3.6-5.0) mmol/L Chloride 101.1 (98-107) mmol/L Carbon Dioxide 28 D (22-30) mmol/L BUN 34 H (9-20) mg/dL Creatinine 8.9 H (0.8-1.5) mg/dL Glucose 148 H (75-100) mg/dL Calcium 9.0 (8.4-10.2) mg/dL AST 18 (5-40) units/L ALT 10 (7-56) units/L Alkaline Phosphatase 67 (35-129) units/L Total Protein 5.7 L (6.3-8.2) g/dL Albumin 3.0 L (3.9-5) g/dL - Imaging and Cardiology Echo: report reviewed (08/2019 showed EF 45-50%, mod LVH, impaired relaxation, trivial pericardial effusion. ) EKG: report reviewed, image reviewed EKG interpretations - Telemetry EKG Rhythm: Sinus Rhythm - EKG Sinus rhythms and dysrhythmias: sinus rhythm Assessment and Plan CE elevation appears c/w NSTEMI type II. Chest pain currently resolved. ECG with NAF. No prior ischemic evaluation on record and thus will proceed with lexiscan MPI stress test in AM. NPO after MN. Optimize anti-hypertensive regimen. The patient has been seen in conjunction with Dr. Matamoros who agrees with the assessment and plan of care. - Patient Problems (1) Chest pain Current Visit: Yes Status: Acute (2) NSTEMI (non-ST elevated myocardial infarction) Current Visit: Yes Status: Acute Plan to address problem: type II (3) Hypertensive emergency Current Visit: Yes Status: Acute (4) Intractable nausea and vomiting Current Visit: Yes Status: Acute (5) Gastroparesis Current Visit: Yes Status: Chronic (6) Abdominal pain Current Visit: Yes Status: Acute Qualifiers: Abdominal location: epigastric Qualified Code(s): R10.13 - Epigastric pain (7) End-stage renal disease needing dialysis Current Visit: Yes Status: Acute (8) Anemia Current Visit: Yes Status: Chronic Qualifiers: Other causes of anemia: chronic disease, other (9) T2DM (type 2 diabetes mellitus) Current Visit: Yes Status: Chronic (10) Non-compliance Current Visit: Yes Status: Chronic
--- NOTE | 2019-10-23 12:46 | Progress Note ---
Subjective Principal diagnosis: UGIB Interval history: Patient was seen today for follow-up on multiple renal related issues urrently in hemodialysis Saturday Patient denies any complaints of chest pain shortness of breath nausea vomiting Events over 24 hours were noted Vitals intake output medications were reviewed Allergies: Reviewed Social/family history: Reviewed Physical examination: Gen.: No acute distress HEENT: Oral mucosa moist, no icterus Neck: Supple no thyromegaly maass or JVD Chest: Clear to auscultation Heart: Regular rate and rhythm S1-S2 heard no S3-S4 Abdomen: Soft nontender no suprapubic masses nor organomegaly Extremity: Dry skin less than 1+ edema,No petechial rashes Psych: No evidence of any agitation and aggression noted Neurological: Alert awake Assessment and plan End-stage renal disease currently on maintenance hemodialysis admitted with missing dialysis treatment uncontrolled hypertension He is currently in maintenance hemodialysis Saturday and Saturday Anemia and end-stage renal disease: To monitor and follow complicated by upper GI bleed with history of gastroparalysis noted to have ulcerative esophagitis, Secondary hyperparathyroidism: To monitor and follow Noncompliance: This can resultant high mortality risk patient has been educated about this His last dialysis was approximately a week ago prior to admission Hyperkalemia to monitor and follow metabolic acidosis: To monitor and follow Mild leukocytosis must be monitored Anemia in end-stage renal disease current hemoglobin 8.7 to monitor and follow Hypertension currently well controlled Significantly elevated troponin in a patient who is noncompliant end-stage renal disease status must be followed by cardiology Patient has been adequately counseled and educated regarding all the renal related issues and does have a good understanding Lab results as well as renal progress was discussed with patient and simple Citizen Of [place] Will give him erythropoietin 20,000 units subcutaneous 1 Multiple health issues including dialysis hypertension diabetes gastroparesis ulcerative esophagitis ejection fraction 45-50%, moderate LVH small pericardial effusion Prognosis: Long-term guarded to poor will depend on his compliance We will continue to follow and make recommendation from renal standpoint. For any questions please call me at: [phone] Objective - Vital Signs Vital signs: Vital Signs - 12hr 10/23/19 10/23/19 10/23/19 00:50 00:55 01:00 Temperature Pulse Rate 97 H 97 H 102 H Pulse Rate [ Apical] Pulse Rate [ From Monitor] Respiratory 14 13 15 Rate Blood Pressure 139/89 137/90 143/96 O2 Sat by Pulse Oximetry 10/23/19 10/23/19 10/23/19 01:06 01:10 01:15 Temperature Pulse Rate 114 H 96 H 93 H Pulse Rate [ Apical] Pulse Rate [ From Monitor] Respiratory 22 12 12 Rate Blood Pressure 143/96 158/101 141/85 O2 Sat by Pulse 100 100 100 Oximetry 10/23/19 10/23/19 10/23/19 01:20 01:25 01:30 Temperature Pulse Rate 94 H 91 H 92 H Pulse Rate [ Apical] Pulse Rate [ From Monitor] Respiratory 12 12 12 Rate Blood Pressure 122/83 139/86 125/77 O2 Sat by Pulse 100 100 100 Oximetry 10/23/19 10/23/19 10/23/19 01:35 01:40 01:45 Temperature Pulse Rate 92 H 96 H 94 H Pulse Rate [ Apical] Pulse Rate [ From Monitor] Respiratory 14 13 12 Rate Blood Pressure 124/74 138/93 143/87 O2 Sat by Pulse 99 99 99 Oximetry 10/23/19 10/23/19 10/23/19 01:50 01:55 02:00 Temperature Pulse Rate 93 H 93 H 92 H Pulse Rate [ Apical] Pulse Rate [ From Monitor] Respiratory 13 11 L 13 Rate Blood Pressure 129/83 144/96 147/94 O2 Sat by Pulse 99 100 100 Oximetry 10/23/19 10/23/19 10/23/19 02:03 02:05 02:10 Temperature Pulse Rate 93 H 89 85 Pulse Rate [ Apical] Pulse Rate [ From Monitor] Respiratory 14 11 L Rate Blood Pressure 147/94 149/96 138/93 O2 Sat by Pulse 100 100 Oximetry 10/23/19 10/23/19 10/23/19 02:15 02:20 02:25 Temperature Pulse Rate 84 89 89 Pulse Rate [ Apical] Pulse Rate [ From Monitor] Respiratory 13 19 18 Rate Blood Pressure 137/84 135/87 136/90 O2 Sat by Pulse 100 100 100 Oximetry 10/23/19 10/23/19 10/23/19 02:30 02:35 02:40 Temperature Pulse Rate 89 85 85 Pulse Rate [ Apical] Pulse Rate [ From Monitor] Respiratory 13 14 12 Rate Blood Pressure 142/90 148/93 128/83 O2 Sat by Pulse 100 100 100 Oximetry 10/23/19 10/23/1910/23/19 02:45 02:50 02:55 Temperature Pulse Rate 87 89 87 Pulse Rate [ Apical] Pulse Rate [ From Monitor] Respiratory 17 17 12 Rate Blood Pressure 127/82 148/90 152/95 O2 Sat by Pulse 100 100 100 Oximetry 10/23/19 10/23/19 10/23/19 03:00 03:05 03:10 Temperature Pulse Rate 84 84 84 Pulse Rate [ Apical] Pulse Rate [ From Monitor] Respiratory 12 11 L 18 Rate Blood Pressure 148/89 144/90 159/93 O2 Sat by Pulse 100 100 100 Oximetry 10/23/19 10/23/19 10/23/19 03:15 03:17 03:20 Temperature 98.8 F Pulse Rate 84 84 Pulse Rate [ Apical] Pulse Rate [ From Monitor] Respiratory 11 L 10 L Rate Blood Pressure 154/92 167/94 O2 Sat by Pulse 100 100 Oximetry 10/23/19 10/23/19 10/23/19 03:25 03:30 03:35 Temperature Pulse Rate 83 86 84 Pulse Rate [ Apical] Pulse Rate [ From Monitor] Respiratory 10 L 17 12 Rate Blood Pressure 150/87 149/95 156/96 O2 Sat by Pulse 100 100 100 Oximetry 10/23/19 10/23/19 10/23/19 03:40 03:46 03:50 Temperature Pulse Rate 86 91 H 86 Pulse Rate [ Apical] Pulse Rate [ From Monitor] Respiratory 16 16 9 L Rate Blood Pressure 168/102 165/103 187/105 O2 Sat by Pulse 100 98 99 Oximetry 10/23/19 10/23/19 10/23/19 03:55 04:00 04:05 Temperature Pulse Rate 87 84 85 Pulse Rate [ Apical] Pulse Rate [ From Monitor] Respiratory 12 11 L 12 Rate Blood Pressure 178/108 186/101 176/103 O2 Sat by Pulse 99 100 100 Oximetry 10/23/19 10/23/19 10/23/19 04:10 04:15 04:20 Temperature Pulse Rate 86 86 91 H Pulse Rate [ Apical] Pulse Rate [ From Monitor] Respiratory 12 12 15 Rate Blood Pressure 174/100 169/100 171/101 O2 Sat by Pulse 100 100 100 Oximetry 10/23/19 10/23/19 10/23/19 04:25 04:30 04:35 Temperature Pulse Rate 85 84 84 Pulse Rate [ Apical] Pulse Rate [ From Monitor] Respiratory 10 L 12 9 L Rate Blood Pressure 171/100 168/100 O2 Sat by Pulse 100 100 100 Oximetry 10/23/19 10/23/19 10/23/19 04:40 04:45 04:50 Temperature Pulse Rate 88 83 85 Pulse Rate [ Apical] Pulse Rate [ From Monitor] Respiratory 12 13 21 Rate Blood Pressure 165/106 159/92 154/100 O2 Sat by Pulse 100 100 100 Oximetry 10/23/19 10/23/19 10/23/19 04:55 05:00 05:05 Temperature Pulse Rate 83 83 86 Pulse Rate [ Apical] Pulse Rate [ From Monitor] Respiratory 11 L 13 13 Rate Blood Pressure 178/100 171/96 165/102 O2 Sat by Pulse 100 100 100 Oximetry 10/23/19 10/23/19 10/23/19 05:10 05:16 05:20 Temperature Pulse Rate 98 H 86 87 Pulse Rate [ Apical] Pulse Rate [ From Monitor] Respiratory 14 15 17 Rate Blood Pressure 196/113 O2 Sat by Pulse 99 100 100 Oximetry 10/23/19 10/23/19 10/23/19 05:25 05:30 05:35 Temperature Pulse Rate 82 81 81 Pulse Rate [ Apical] Pulse Rate [ From Monitor] Respiratory 10 L 10 L 11 L Rate Blood Pressure 197/110 176/104 O2 Sat by Pulse 100 100 100 Oximetry 10/23/19 10/23/19 10/23/19 05:39 05:40 05:45 Temperature Pulse Rate 87 86 83 Pulse Rate [ Apical] Pulse Rate [ From Monitor] Respiratory 14 17 Rate Blood Pressure 176/104 O2 Sat by Pulse 100 100 Oximetry 10/23/19 10/23/19 10/23/19 05:50 05:55 06:00 Temperature Pulse Rate 81 81 80 Pulse Rate [ Apical] Pulse Rate [ From Monitor] Respiratory 12 10 L 10 L Rate Blood Pressure 163/107 163/98 O2 Sat by Pulse 100 100 100 Oximetry 10/23/19 10/23/19 10/23/19 06:05 06:10 06:15 Temperature Pulse Rate 82 83 84 Pulse Rate [ Apical] Pulse Rate [ From Monitor] Respiratory 13 11 L 11 L Rate Blood Pressure 146/97 144/91 O2 Sat by Pulse 100 100 100 Oximetry 10/23/19 10/23/19 10/23/19 06:20 06:25 06:30 Temperature Pulse Rate 83 82 81 Pulse Rate [ Apical] Pulse Rate [ From Monitor] Respiratory 10 L 12 10 L Rate Blood Pressure 153/97 153/98 150/93 O2 Sat by Pulse 100 100 100 Oximetry 10/23/19 10/23/19 10/23/19 06:35 06:40 06:45 Temperature Pulse Rate 87 84 83 Pulse Rate [ Apical] Pulse Rate [ From Monitor] Respiratory 9 L 12 12 Rate Blood Pressure 145/98 153/97 156/98 O2 Sat by Pulse 100 100 100 Oximetry 10/23/19 10/23/19 10/23/19 06:50 06:55 07:00 Temperature Pulse Rate 82 84 85 Pulse Rate [ Apical] Pulse Rate [ From Monitor] Respiratory 11 L 14 10 L Rate Blood Pressure 158/95 173/102 161/107 O2 Sat by Pulse 100 100 100 Oximetry 10/23/19 10/23/19 10/23/19 07:05 07:10 07:15 Temperature Pulse Rate 83 82 86 Pulse Rate [ Apical] Pulse Rate [ From Monitor] Respiratory 11 L 12 13 Rate Blood Pressure 162/105 173/102 176/102 O2 Sat by Pulse 100 100 100 Oximetry 10/23/19 10/23/19 10/23/19 07:20 07:25 07:30 Temperature Pulse Rate 83 92 H 96 H Pulse Rate [ Apical] Pulse Rate [ From Monitor] Respiratory 10 L 15 26 H Rate Blood Pressure 160/98 170/108 153/90 O2 Sat by Pulse 100 100 99 Oximetry 10/23/19 10/23/19 10/23/19 07:35 07:40 07:45 Temperature Pulse Rate 103 H 96 H 87 Pulse Rate [ Apical] Pulse Rate [ From Monitor] Respiratory 17 19 12 Rate Blood Pressure 160/103 156/98 170/97 O2 Sat by Pulse 100 100 100 Oximetry 10/23/19 10/23/19 10/23/19 07:50 07:55 08:00 Temperature 98.9 F Pulse Rate 82 79 79 Pulse Rate [ 88 Apical] Pulse Rate [ 88 From Monitor] Respiratory 12 8 L 9 L Rate Blood Pressure 172/102 178/102 155/93 O2 Sat by Pulse 100 100 100 Oximetry 10/23/19 10/23/19 10/23/19 08:05 08:10 08:15 Temperature Pulse Rate 81 82 80 Pulse Rate [ Apical] Pulse Rate [ From Monitor] Respiratory 12 9 L 11 L Rate Blood Pressure 158/89 146/93 150/86 O2 Sat by Pulse 100 100 100 Oximetry 10/23/19 10/23/19 10/23/19 08:20 08:26 08:30 Temperature Pulse Rate 87 90 97 H Pulse Rate [ Apical] Pulse Rate [ From Monitor] Respiratory 13 13 18 Rate Blood Pressure 151/99 178/101 162/101 O2 Sat by Pulse 100 100 Oximetry 10/23/19 10/23/19 10/23/19 08:35 08:40 08:45 Temperature Pulse Rate 97 H 85 86 Pulse Rate [ Apical] Pulse Rate [ From Monitor] Respiratory 12 19 10 L Rate Blood Pressure 171/138 168/107 182/105 O2 Sat by Pulse 100 100 100 Oximetry 10/23/19 10/23/19 10/23/19 08:50 08:55 09:00 Temperature Pulse Rate 85 87 81 Pulse Rate [ Apical] Pulse Rate [ From Monitor] Respiratory 20 17 8 L Rate Blood Pressure 188/103 184/105 162/98 O2 Sat by Pulse 100 100 100 Oximetry 10/23/19 10/23/19 10/23/19 09:05 09:10 09:15 Temperature Pulse Rate 82 91 H 88 Pulse Rate [ Apical] Pulse Rate [ From Monitor] Respiratory 11 L 13 14 Rate Blood Pressure 159/96 152/98 168/106 O2 Sat by Pulse 100 100 100 Oximetry 10/23/19 10/23/19 10/23/19 09:20 09:25 09:30 Temperature Pulse Rate 82 88 95 H Pulse Rate [ Apical] Pulse Rate [ From Monitor] Respiratory 11 L 31 H 21 Rate Blood Pressure 155/92 163/98 157/99 O2 Sat by Pulse 100 100 99 Oximetry 10/23/19 10/23/19 10/23/19 09:35 09:40 09:45 Temperature Pulse Rate 88 81 81 Pulse Rate [ Apical] Pulse Rate [ From Monitor] Respiratory 14 11 L 10 L Rate Blood Pressure 176/110 173/105 166/104 O2 Sat by Pulse 100 100 100 Oximetry 10/23/19 10/23/19 10/23/19 09:50 09:55 09:56 Temperature Pulse Rate 80 91 H 90 Pulse Rate [ Apical] Pulse Rate [ From Monitor] Respiratory 11 L 13 Rate Blood Pressure 153/98 166/104 166/104 O2 Sat by Pulse 100 100 Oximetry 10/23/19 10/23/19 10/23/19 10:00 10:05 10:10 Temperature Pulse Rate 83 83 85 Pulse Rate [ Apical] Pulse Rate [ From Monitor] Respiratory 16 16 12 Rate Blood Pressure 176/118 182/104 166/104 O2 Sat by Pulse 100 100 100 Oximetry 10/23/19 10/23/19 10/23/19 10:15 10:20 10:25 Temperature Pulse Rate 85 102 H 90 Pulse Rate [ Apical] Pulse Rate [ From Monitor] Respiratory 14 12 10 L Rate Blood Pressure 154/107 154/107 134/89 O2 Sat by Pulse 100 98 99 Oximetry 10/23/19 10/23/19 10/23/19 10:30 10:35 10:40 Temperature Pulse Rate 91 H 91 H 92 H Pulse Rate [ Apical] Pulse Rate [ From Monitor] Respiratory 9 L 10 L 17 Rate Blood Pressure 139/100 130/89 143/87 O2 Sat by Pulse 99 98 98 Oximetry 10/23/19 10/23/19 10/23/19 10:45 10:50 10:55 Temperature Pulse Rate 92 H 91 H 90 Pulse Rate [ Apical] Pulse Rate [ From Monitor] Respiratory 20 19 18 Rate Blood Pressure 148/99 133/90 141/90 O2 Sat by Pulse 97 100 99 Oximetry 10/23/19 10/23/19 10/23/19 11:00 11:06 11:10 Temperature Pulse Rate 89 87 91 H Pulse Rate [ Apical] Pulse Rate [ From Monitor] Respiratory 18 11 L 15 Rate Blood Pressure 148/94 140/95 140/95 O2 Sat by Pulse 100 99 100 Oximetry 10/23/19 10/23/19 10/23/19 11:15 11:20 11:25 Temperature Pulse Rate 82 81 82 Pulse Rate [ Apical] Pulse Rate [ From Monitor] Respiratory 12 14 18 Rate Blood Pressure 169/97 171/99 186/102 O2 Sat by Pulse 100 100 100 Oximetry 10/23/19 10/23/19 10/23/19 11:30 11:35 11:40 Temperature Pulse Rate 84 84 85 Pulse Rate [ Apical] Pulse Rate [ From Monitor] Respiratory 17 13 15 Rate Blood Pressure 168/101 180/103 167/100 O2 Sat by Pulse 100 100 100 Oximetry 10/23/19 10/23/19 10/23/19 11:45 11:50 11:55 Temperature Pulse Rate 85 85 85 Pulse Rate [ Apical] Pulse Rate [ From Monitor] Respiratory 13 14 11 L Rate Blood Pressure 168/94 147/88 138/87 O2 Sat by Pulse 100 100 97 Oximetry 10/23/19 10/23/19 10/23/19 12:00 12:05 12:10 Temperature 98.5 F Pulse Rate 84 84 84 Pulse Rate [ Apical] Pulse Rate [ From Monitor] Respiratory 9 L 14 12 Rate Blood Pressure 134/85 135/83 129/76 O2 Sat by Pulse 95 95 94 Oximetry 10/23/19 12:15 Temperature Pulse Rate 84 Pulse Rate [ Apical] Pulse Rate [ From Monitor] Respiratory 12 Rate Blood Pressure 126/76 O2 Sat by Pulse 95 Oximetry - Lab 10/23/19 05:06 10/23/19 05:06 Most recent lab results Calcium 9.0 mg/dL (8.4-10.2) 10/23/19 05:06 Medications & Allergies - Medications Allergies/Adverse Reactions: Allergies No Known Allergies Allergy (Verified 11/21/18 17:51) Home Medications: Home Medications Medication Instructions Recorded Confirmed Last Taken Type Losartan [Cozaar] 100 mg PO QDAY #30 tablet 09/10/19 10/23/19 10/20/19 16:00 Rx Metoclopramide [Reglan ORAL LIQ] 10 mg PO QID 30 Days 09/10/19 10/23/19 10/21/19 08:00 Rx Pantoprazole [Protonix TAB] 40 mg PO BIDAC #60 09/10/19 10/23/19 10/21/19 07:00 Rx amLODIPine 10 mg PO QDAY #30 tablet 09/10/19 10/23/19 10/21/19 08:00 Rx Insulin Glargine [Lantus VIAL] 13 units SUB-Q QHS 10/23/19 10/23/19 10/20/19 22:00 History Lispro Insulin [HumaLOG] 5 units SUB-Q PC 10/23/19 10/23/19 10/20/19 15:30 History labetaloL [Labetalol 200mg TAB] 200 mg PO BID 10/23/19 10/23/19 10/21/19 History Active Medications: Generic Name Dose Route Start Last Admin Trade Name Freq PRN Reason Stop Dose Admin Amlodipine Besylate 10 mg 10/23/19 11:00 10/23/19 11:00 Amlodipine PO 10 mg QDAY KESHIA Administration Clonidine HCl 0.1 mg 10/29/19 11:00 Catapres-Tts Patch TD Th [facility] Heparin Sodium (Porcine) 5,000 unit 10/22/19 06:00 10/23/19 05:39 Heparin SUB-Q 5,000 unit Q8HR KESHIA Administration Nitroglycerin/Dextrose 50 mg in 250 mls @ 3 mls/hr 10/21/19 22:00 10/23/19 12:20 Tridil Drip 50mg/250ml IV 45 mcg/min TITR KESHIA 13.5 mls/hr Titration Protocol 10 MCG/MIN Insulin Glargine 13 units 10/23/19 08:00 10/23/19 08:29 Lantus SUB-Q 13 units QAMDIAB KESHIA Administration Insulin Human Lispro 0 unit 10/22/19 13:00 10/23/19 05:42 Humalog SUB-Q Not Given Q6HR [facility] Protocol Labetalol HCl 200 mg 10/23/19 11:00 10/23/19 11:00 Labetalol PO 200 mg Q8HR KESHIA Administration Lorazepam 0.5 mg 10/23/19 10:05 Ativan PO Q6H PRN N/V unrelieved by ZOFRAN Losartan Potassium 100 mg 10/23/19 11:00 10/23/19 11:00 Cozaar PO 100 mg QDAY KESHIA Administration Magnesium Hydroxide 30 ml 10/21/19 22:36 Milk Of Magnesia PO Q4H PRN Constipation Metoclopramide HCl 5 mg 10/22/19 11:30 10/23/19 11:31 Reglan IV 5 mg ACHS KESHIA Administration Metoprolol Tartrate 5 mg 10/23/19 10:41 Metoprolol IV Q4HR PRN Hypertension Morphine Sulfate 2 mg 10/21/19 22:36 Morphine IV Q4H PRN Pain, Moderate (4-6) Ondansetron HCl 4 mg 10/21/19 22:36 10/22/19 19:43 Zofran IV 4 mg Q8H PRN Administration Nausea And Vomiting Pantoprazole Sodium 40 mg 10/22/19 10:00 10/23/19 09:56 Protonix IV 40 mg BID KESHIA Administration Sodium Chloride 10 ml 10/22/19 10:00 10/23/19 09:56 Sodium Chloride Flush Syringe 10 Ml IV 10 ml BID KESHIA Administration Sodium Chloride 10 ml 10/21/19 22:36 Sodium Chloride Flush Syringe 10 Ml IV PRN PRN LINE FLUSH
[2019-10-23] MEDS ORDERED: EPOETIN ALFA 20,000 UNIT/1 ML INJ SUB-Q ONE (13:00)
--- NOTE | 2019-10-23 18:01 | Progress Note ---
Assessment and Plan Assessment and plan: 33-year-old -[place] male with known history of end-stage renal disease on dialysis presented to the emergency room today complaining of nausea and vomiting with associated abdominal pain. Patient indicates he has not been able to go for his dialysis for about a week because he has not been feeling quite well. He denies any fever no chills, denies any chest pain but has had some shortness of breath. Upon arrival in the emergency room his work-up reveals hypokalemia, he was quite hypertensive, and he was volume overloaded on the chest x-ray. Patient was subsequently started on nitro drip and watch commander on-call was consulted by the ER physician. Patient will be promptly scheduled for dialysis. (1) Acute hyperkalemia Current Visit: Yes Status: Acute Plan to address problem: Patient has had some Kayexalate in the emergency room. Will monitor potassium levels. We will also monitor EKG. (2) End-stage renal disease needing dialysis Current Visit: Yes Status: Acute Plan to address problem: Patient is on dialysis. Slag Dumper on-call has been notified. (3) Hypertensive emergency Current Visit: Yes Status: Acute Plan to address problem: Patient has been placed on nitro drip . off drip today, plan to transfer to floor, We will monitor blood pressure closely. (4) Intractable nausea and vomiting Current Visit: Yes Status: Acute Plan to address problem: We placed on IV Zofran. Patient has had some IV Reglan in the emergency room. (5) Volume overload Current Visit: Yes Status: Acute Plan to address problem: Possibly secondary to noncompliance with dialysis. continue dialysis (6) DVT prophylaxis Current Visit: No Status: Acute Plan to address problem: Patient placed on subcutaneous heparin. (7) TYPE 2 MT LIKELY SECONDARY TO HTN URGENY AND ALSO ESRD CARDIOLOGY FOLLOWING (8) Full code status Current Visit: Yes Status: Acute DOWNGRADE TO THE TELE History Interval history: Patient seen and examined, improved today, wants to eat, bp better Hospitalist Physical - Physical exam Narrative exam: General appearance: Present: mild distress - EENT Eyes: Present: PERRL, EOM intact ENT: hearing intact, clear oral mucosa, dentition normal - Neck Neck: Present: supple, normal ROM - Respiratory Respiratory effort: normal Respiratory: bilateral: CTA - Cardiovascular Rhythm: regular Heart Sounds: Present: S1 & S2 - Extremities Extremities: no ischemia, pulses intact, No edema Peripheral Pulses: within normal limits - Abdominal General gastrointestinal: Present: soft, non-tender, non-distended - Integumentary Integumentary: Present: clear, warm, dry - Musculoskeletal Musculoskeletal: strength equal bilaterally - Psychiatric Psychiatric: appropriate mood/affect, intact judgment & insight, cooperative - Neurologic Neurologic: CNII-XII intact, moves all extremities - Constitutional Vitals: Temp Pulse Resp BP Pulse Ox 97.5 F L 80 14 146/87 99 10/23/19 16:00 10/23/19 17:20 10/23/19 17:20 10/23/19 17:20 10/23/19 16:35 General appearance: Present: no acute distress Results - Labs CBC & Chem 7: 10/23/19 05:06 10/23/19 05:06 Labs: Laboratory Last Values WBC 10.9 K/mm3 (4.5-11.0) 10/23/19 05:06 RBC 3.15 M/mm3 (3.65-5.03) L 10/23/19 05:06 Hgb 8.1 gm/dl (11.8-15.2) L 10/23/19 05:06 Hct 24.7 % (35.5-45.6) L 10/23/19 05:06 MCV 78 fl (84-94) L 10/23/19 05:06 MCH 26 pg (28-32) L 10/23/19 05:06 MCHC 33 % (32-34) 10/23/19 05:06 RDW 20.3 % (13.2-15.2) H 10/23/19 05:06 Plt Count 343 K/mm3 (140-440) 10/23/19 05:06 Lymph % (Auto) 15.6 % (13.4-35.0) 10/21/19 19:59 [place] % (Auto) 2.6 % (0.0-7.3) 10/21/19 19:59 Eos % (Auto) 0.5 % (0.0-4.3) 10/21/19 19:59 Baso % (Auto) 1.0 % (0.0-1.8) 10/21/19 19:59 Lymph # 1.6 K/mm3 (1.2-5.4) 10/21/19 19:59 [place]le # 0.3 K/mm3 (0.0-0.8) 10/21/19 19:59 Eos # 0.0 K/mm3 (0.0-0.4) 10/21/19 19:59 Baso # 0.1 K/mm3 (0.0-0.1) 10/21/19 19:59 Add Manual Diff Complete 10/22/19 05:05 Total Counted 100 10/22/19 05:05 Seg Neutrophils % 80.3 % (40.0-70.0) H 10/21/19 19:59 Seg Neuts % (Manual) 84.0 % (40.0-70.0) H 10/22/19 05:05 Band Neutrophils % 0 % 10/22/19 05:05 Lymphocytes % (Manual) 12.0 % (13.4-35.0) L 10/22/19 05:05 Reactive Lymphs % (Man) 1.0 % 10/22/19 05:05 Monocytes % (Manual) 1.0 % (0.0-7.3) 10/22/19 05:05 Eosinophils % (Manual) 0 % (0.0-4.3) 10/22/19 05:05 Basophils % (Manual) 2.0 % (0.0-1.8) H 10/22/19 05:05 Metamyelocytes % 0 % 10/22/19 05:05 Myelocytes % 0 % 10/22/19 05:05 Promyelocytes % 0 % 10/22/19 05:05 Blast Cells % 0 % 10/22/19 05:05 Nucleated RBC % Not Reportable 10/22/19 05:05 Seg Neutrophils # 8.2 K/mm3 (1.8-7.7) H 10/21/19 19:59 Seg Neutrophils # Man 9.7 K/mm3 (1.8-7.7) H 10/22/19 05:05 Band Neutrophils # 0.0 K/mm3 10/22/19 05:05 Lymphocytes # (Manual) 1.4 K/mm3 (1.2-5.4) 10/22/19 05:05 Abs React Lymphs (Man) 0.1 K/mm3 10/22/19 05:05 Monocytes # (Manual) 0.1 K/mm3 (0.0-0.8) 10/22/19 05:05 Eosinophils # (Manual) 0.0 K/mm3 (0.0-0.4) 10/22/19 05:05 Basophils # (Manual) 0.2 K/mm3 (0.0-0.1) H 10/22/19 05:05 Metamyelocytes # 0.0 K/mm3 10/22/19 05:05 Myelocytes # 0.0 K/mm3 10/22/19 05:05 Promyelocytes # 0.0 K/mm3 10/22/19 05:05 Blast Cells # 0.0 K/mm3 10/22/19 05:05 WBC Morphology Not Reportable 10/22/19 05:05 Hypersegmented Neuts Not Reportable 10/22/19 05:05 Hyposegmented Neuts Not Reportable 10/22/19 05:05 Hypogranular Neuts Not Reportable 10/22/19 05:05 Smudge Cells Not Reportable 10/22/19 05:05 Toxic Granulation Not Reportable 10/22/19 05:05 Toxic Vacuolation Not Reportable 10/22/19 05:05 Dohle Bodies Not Reportable 10/22/19 05:05 Pelger-Huet Anomaly Not Reportable 10/22/19 05:05 Julio Cesar Rods Not Reportable 10/22/19 05:05 Platelet Estimate Consistent w auto 10/22/19 05:05 Clumped Platelets Not Reportable 10/22/19 05:05 Plt Clumps, EDTA Not Reportable 10/22/19 05:05 Large Platelets Not Reportable 10/22/19 05:05 Giant Platelets Not Reportable 10/22/19 05:05 Platelet Satelliting Not Reportable 10/22/19 05:05 Plt Morphology Comment Not Reportable 10/22/19 05:05 RBC Morphology Not Reportable 10/22/19 05:05 Dimorphic RBCs Not Reportable 10/22/19 05:05 Polychromasia Not Reportable 10/22/19 05:05 Hypochromasia 1+ 10/22/19 05:05 Poikilocytosis Few 10/22/19 05:05 Anisocytosis 1+ 10/22/19 05:05 Microcytosis Few 10/22/19 05:05 Macrocytosis Not Reportable 10/22/19 05:05 Spherocytes Not Reportable 10/22/19 05:05 Pappenheimer Bodies Not Reportable 10/22/19 05:05 Sickle Cells Not Reportable 10/22/19 05:05 Target Cells Not Reportable 10/22/19 05:05 Tear Drop Cells Not Reportable 10/22/19 05:05 Ovalocytes Not Reportable 10/22/19 05:05 Helmet Cells Not Reportable 10/22/19 05:05 [place] Bodies Not Reportable 10/22/19 05:05 [place] Rings Not Reportable 10/22/19 05:05 [place] Cells Not Reportable 10/22/19 05:05 Bite Cells Not Reportable 10/22/19 05:05 Crenated Cell Not Reportable 10/22/19 05:05 Elliptocytes Not Reportable 10/22/19 05:05 Acanthocytes (Spur) Not Reportable 10/22/19 05:05 Rouleaux Not Reportable 10/22/19 05:05 Hemoglobin C Crystals Not Reportable 10/22/19 05:05 Schistocytes Not Reportable 10/22/19 05:05 Malaria parasites Not Reportable 10/22/19 05:05 David Bodies Not Reportable 10/22/19 05:05 Hem Pathologist Commnt No 10/22/19 05:05 PT 13.9 Sec. (12.2-14.9) 10/22/19 05:05 INR 1.06 (0.87-1.13) 10/22/19 05:05 APTT 41.1 Sec. (24.2-36.6) H 10/22/19 05:05 Sodium 142 mmol/L (137-145) 10/23/19 05:06 Potassium 4.6 mmol/L (3.6-5.0) 10/23/19 05:06 Chloride 101.1 mmol/L (98-107) 10/23/19 05:06 Carbon Dioxide 28 mmol/L (22-30) D 10/23/19 05:06 Anion Gap 18 mmol/L 10/23/19 05:06 BUN 34 mg/dL (9-20) H 10/23/19 05:06 Creatinine 8.9 mg/dL (0.8-1.5) H 10/23/19 05:06 Estimated GFR 8 ml/min 10/23/19 05:06 BUN/Creatinine Ratio 4 % 10/23/19 05:06 Glucose 148 mg/dL (75-100) H 10/23/19 05:06 POC Glucose 156 (70-105) H 10/23/19 16:50 Calcium 9.0 mg/dL (8.4-10.2) 10/23/19 05:06 Total Bilirubin 0.20 mg/dL (0.1-1.2) 10/23/19 05:06 Direct Bilirubin < 0.2 mg/dL (0-0.2) 10/21/19 19:59 Indirect Bilirubin 0.1 mg/dL 10/21/19 19:59 AST 18 units/L (5-40) 10/23/19 05:06 ALT 10 units/L (7-56) 10/23/19 05:06 Alkaline Phosphatase 67 units/L (35-129) 10/23/19 05:06 Total Creatine Kinase 647 units/L (55-170) H 10/23/19 05:06 CK-MB (CK-2) 6.6 ng/mL (0.0-4.0) H 10/23/19 05:06 CK-MB (CK-2) Rel Index 1.0 (0-4) 10/23/19 05:06 Troponin T 0.869 ng/mL (0.00-0.029) H* 10/23/19 05:06 Total Protein 5.7 g/dL (6.3-8.2) L 10/23/19 05:06 Albumin 3.0 g/dL (3.9-5) L 10/23/19 05:06 Albumin/Globulin Ratio 1.1 % 10/23/19 05:06 Triglycerides 225 mg/dL (2-149) H 10/22/19 13:56 Cholesterol 274 mg/dL (50-199) H 10/22/19 13:56 LDL Cholesterol Direct 186 mg/dL (50-130) H 10/22/19 13:56 HDL Cholesterol 62 mg/dL (40-59) H 10/22/19 13:56 Cholesterol/HDL Ratio 4.41 % 10/22/19 13:56 Lipase 42 units/L (13-60) 10/21/19 19:39 Hepatitis A IgM Ab Non-reactive (NonReactive) 10/22/19 08:49 Hep Bs Antigen Non-reactive (Negative) 10/22/19 08:49 Hep B Core IgM Ab Non-reactive (NonReactive) 10/22/19 08:49 Hepatitis C Antibody Non-reactive (NonReactive) 10/22/19 08:49 Active Medications - Current Medications Current Medications: Generic Name Dose Route Start Last Admin Trade Name Freq PRN Reason Stop Dose Admin Amlodipine Besylate 10 mg 10/23/19 11:00 10/23/19 11:00 Amlodipine PO 10 mg QDAY KESHIA Administration Clonidine HCl 0.1 mg 10/29/19 11:00 Catapres-Tts Patch TD Th KESHIA Heparin Sodium (Porcine) 5,000 unit 10/22/19 06:00 10/23/19 14:08 Heparin SUB-Q 5,000 unit Q8HR KESHIA Administration Nitroglycerin/Dextrose 50 mg in 250 mls @ 3 mls/hr 10/21/19 22:00 10/23/19 13:24 Tridil Drip 50mg/250ml IV 0 mcg/min TITR KESHIA 0 mls/hr Titration Protocol 10 MCG/MIN Insulin Glargine 13 units 10/23/19 08:00 10/23/19 08:29 Lantus SUB-Q 13 units QAMDIAB KESHIA Administration Insulin Human Lispro 0 unit 10/23/19 22:00 Humalog SUB-Q ACHS KESHIA Protocol Labetalol HCl 200 mg 10/23/19 11:00 10/23/19 11:00 Labetalol PO 200 mg Q8HR KESHIA Administration Lorazepam 0.5 mg 10/23/19 10:05 Ativan PO Q6H PRN N/V unrelieved by ZOFRALEXANDER Losartan Potassium 100 mg 10/23/19 11:00 10/23/19 11:00 Cozaar PO 100 mg QDAY KESHIA Administration Magnesium Hydroxide 30 ml 10/21/19 22:36 Milk Of Magnesia PO Q4H PRN Constipation Metoclopramide HCl 5 mg 10/22/19 11:30 10/23/19 16:50 Reglan IV 5 mg ACHS KESHIA Administration Metoprolol Tartrate 5 mg 10/23/19 10:41 Metoprolol IV Q4HR PRN Hypertension Morphine Sulfate 2 mg 10/21/19 22:36 Morphine IV Q4H PRN Pain, Moderate (4-6) Ondansetron HCl 4 mg 10/21/19 22:36 10/22/19 19:43 Zofran IV 4 mg Q8H PRN Administration Nausea And Vomiting Pantoprazole Sodium 40 mg 10/23/19 22:00 Protonix PO BID KESHIA Sodium Chloride 10 ml 10/22/19 10:00 10/23/19 09:56 Sodium Chloride Flush Syringe 10 Ml IV 10 ml BID KESHIA Administration Sodium Chloride 10 ml 10/21/19 22:36 Sodium Chloride Flush Syringe 10 Ml IV PRN PRN LINE FLUSH Nutrition/Malnutrition Assess - Dietary Evaluation Nutrition/Malnutrition Findings: Nutrition Notes Start: 10/22/19 11:19 Freq: Status: Active Protocol: Document 10/23/19 09:36 DW (Rec: 10/23/19 10:40 DW [id number]) Co-Sign 10/23/19 09:36 LP Nutrition Notes Initial or Follow up Assessment Current Diagnosis CKD (stage V CKD),Diabetes, Hypertension Other Pertinent Diagnosis on HD, gastroparesis, esophagitis Current Diet NPO Labs/Tests BUN 34 Cr 8.9 Glu 148 Pertinent Medications Reiviewed Height 6 ft 3 in Weight 86.183 kg [place] Body Weight (kg) 89.09 BMI 23.7 Subjective/Other Information FU for assessment/education Pt stated his appetite was poor for 3 days [employer] d/t N/V. Last noted emesis 10/22 before dialysis. Pt stated he has no recent wt changes and has had a better appetite since adm. Pt denied education and stated he is aware of nutrition related diet Burn Absent Trauma Absent GI Symptoms Nausea Minimum of two criteria No physical signs of malnutrition #1 Nutrition Diagnosis Inadequate oral intake Etiology esosagitis As Evidenced by Signs and Symptoms pt NPO, N/V Is patient on ventilator? No Is Patient Ambulatory and/or Out of Bed No REE-([place] Jeor-confined to bed) [phone] Calculation [facility] Additional Notes PRO needs: >103g (>1.2 g/kg) Fluid needs: Urine Ouput + 1, 000ml (Oliguric) Nutrition Intervention Change Diet Order: Advance Diet when medically able Goal #1 Diet Advancement Anticipated Discharge Needs: Renal/Consistent CHO Diet Follow-Up By: 10/27/19 Additional Comments FU PO intakes
[2019-10-23] MEDS: PANTOPRAZOLE 40 MG TAB PO SCH (22:13)
[2019-10-24] MEDS: HEPARIN 5,000 UNIT/1 ML VIAL SUB-Q SCH ×2 (06:10→15:28)
[2019-10-24] MEDS ORDERED: REGADENOSON 0.4 MG/5 ML INJ IV ONE ×2 (08:09)
--- NOTE | 2019-10-24 09:59 | Progress Note ---
Assessment and Plan stress mpi this am neg for ischemia (EF- 44%) htn under much better control tte from 08/29 rereviewed stable cv status f/u us in office - Patient Problems (1) End-stage renal disease needing dialysis Current Visit: Yes Status: Acute (2) Hypertensive emergency Current Visit: Yes Status: Acute (3) NSTEMI (non-ST elevated myocardial infarction) Current Visit: Yes Status: Acute (4) Anemia Current Visit: Yes Status: Chronic Qualifiers: Other causes of anemia: chronic disease, other (5) Non-compliance Current Visit: Yes Status: Chronic (6) T2DM (type 2 diabetes mellitus) Current Visit: Yes Status: Chronic (7) Hypertensive cardiomyopathy Current Visit: No Status: Chronic Qualifiers: Heart failure presence: without heart failure Qualified Code(s): I11.9 - Hypertensive heart disease without heart failure; I43 - Cardiomyopathy in diseases classified elsewhere Subjective Date of service: 10/24/19 Principal diagnosis: UGIB Interval history: seen in stress lab feels a lot better Objective Vital Signs Temp Pulse Pulse Pulse Pulse Pulse Resp 10/24/19 08:58 10/24/19 08:57 10/24/19 08:55 10/24/19 08:53 10/24/19 08:52 10/24/19 08:46 10/24/19 08:14 79 10/24/19 07:32 98.0 F 79 18 10/24/19 06:10 80 10/24/19 04:32 98.5 F 81 20 10/24/19 04:00 76 10/24/19 00:00 76 10/23/19 23:42 98.4 F 76 18 10/23/19 22:13 77 10/23/19 20:00 76 78 78 78 78 18 10/23/19 19:56 98.2 F 78 20 10/23/19 18:30 77 11 L 10/23/19 18:25 77 13 10/23/19 18:20 77 12 10/23/19 18:15 78 12 10/23/19 18:10 76 12 10/23/19 18:05 76 12 10/23/19 18:00 76 13 10/23/19 17:55 76 10 L 10/23/19 17:50 77 13 10/23/19 17:45 81 15 10/23/19 17:40 79 14 10/23/19 17:35 78 13 10/23/19 17:30 78 14 10/23/19 17:25 77 14 10/23/19 17:20 80 14 10/23/19 17:15 78 13 10/23/19 17:10 80 13 10/23/19 17:05 82 13 10/23/19 17:00 79 12 10/23/19 16:55 84 10 L 10/23/19 16:50 82 12 10/23/19 16:45 79 14 10/23/19 16:40 81 17 10/23/19 16:35 78 19 10/23/19 16:30 78 14 10/23/19 16:25 76 11 L 10/23/19 16:20 78 14 10/23/19 16:15 79 12 10/23/19 16:10 79 12 10/23/19 16:05 81 10 L 10/23/19 16:01 80 12 10/23/19 16:00 97.5 F L 82 82 82 11 L 10/23/19 15:55 77 14 10/23/19 15:51 79 11 L 10/23/19 15:45 79 13 10/23/19 15:40 79 14 10/23/19 15:35 80 12 10/23/19 15:31 77 16 10/23/19 15:25 77 12 10/23/19 15:20 78 12 10/23/19 15:15 77 9 L 10/23/19 15:10 79 14 10/23/19 15:05 80 16 10/23/19 15:00 77 11 L 10/23/19 14:55 80 12 10/23/19 14:50 78 12 10/23/19 14:45 78 10 L 10/23/19 14:40 79 22 10/23/19 14:35 80 11 L 10/23/19 14:30 81 13 10/23/19 14:25 82 12 10/23/19 14:20 82 9 L 10/23/19 14:19 82 12 10/23/19 14:10 92 H 13 10/23/19 14:05 89 18 10/23/19 14:00 87 19 10/23/19 13:55 86 16 10/23/19 13:50 90 12 12/13/19 13:45 93 H 10 L 10/23/19 13:40 90 11 L 10/23/19 13:35 86 13 10/23/19 13:30 86 12 10/23/19 13:26 89 18 10/23/19 13:20 85 13 10/23/19 13:15 84 14 10/23/19 13:10 84 13 10/23/19 13:05 85 14 10/23/19 13:00 86 12 10/23/19 12:55 88 13 10/23/19 12:50 86 11 L 10/23/19 12:45 87 10 L 10/23/19 12:40 88 18 10/23/19 12:35 87 12 10/23/19 12:30 89 15 10/23/19 12:25 90 10 L 10/23/19 12:20 85 16 10/23/19 12:15 84 12 10/23/19 12:10 84 12 10/23/19 12:05 84 14 10/23/19 12:00 98.5 F 84 84 84 13 10/23/19 11:55 85 11 L 10/23/19 11:50 85 14 10/23/19 11:45 85 13 10/23/19 11:40 85 15 10/23/19 11:35 84 13 10/23/19 11:30 84 17 10/23/19 11:25 82 18 10/23/19 11:20 81 14 10/23/19 11:15 82 12 10/23/19 11:10 91 H 15 10/23/19 11:06 87 11 L 10/23/19 11:00 89 18 10/23/19 10:55 90 18 10/23/19 10:50 91 H 19 10/23/19 10:45 92 H 20 10/23/19 10:40 92 H 17 10/23/19 10:35 91 H 10 L 10/23/19 10:30 91 H 9 L 10/23/19 10:25 90 10 L 10/23/19 10:20 102 H 12 10/23/19 10:15 85 14 10/23/19 10:10 85 12 10/23/19 10:05 83 16 10/23/19 10:00 83 16 BP Pulse Ox 10/24/19 08:58 129/82 10/24/19 08:57 132/79 10/24/19 08:55 123/81 10/24/19 08:53 115/66 10/24/19 08:52 155/88 10/24/19 08:46 155/96 10/24/19 08:14 10/24/19 07:32 133/76 99 10/24/19 06:10 166/96 10/24/19 04:32 158/95 100 10/24/19 04:00 10/24/19 00:00 10/23/19 23:42 140/86 97 10/23/19 22:13 131/80 10/23/19 20:00 100 10/23/19 19:56 119/76 100 10/23/19 18:30 129/79 100 10/23/19 18:25 130/78 100 10/23/19 18:20 135/80 100 10/23/19 18:15 140/84 99 10/23/19 18:10 132/80 100 10/23/19 18:05 139/81 10/23/19 18:00 137/80 10/23/19 17:55 133/78 10/23/19 17:50 137/80 10/23/19 17:45 126/70 10/23/19 17:40 130/59 10/23/19 17:35 139/70 10/23/19 17:30 146/87 10/23/19 17:25 141/86 10/23/19 17:20 146/87 10/23/19 17:15 133/79 10/23/19 17:10 137/77 10/23/19 17:05 134/80 10/23/19 17:00 142/84 10/23/19 16:55 135/83 10/23/19 16:50 134/81 10/23/19 16:45 134/75 10/23/19 16:40 145/87 10/23/19 16:35 142/88 99 10/23/19 16:30 141/96 100 10/23/19 16:25 149/87 99 10/23/19 16:20 145/86 100 10/23/19 16:15 141/83 97 10/23/19 16:10 138/85 99 10/23/19 16:05 117/67 99 10/23/19 16:01 119/64 100 10/23/19 16:00 98 10/23/19 15:55 137/83 98 10/23/19 15:51 139/80 99 10/23/19 15:45 115/57 100 10/23/19 15:40 123/72 97 10/23/19 15:35 123/60 100 10/23/19 15:31 116/65 97 10/23/19 15:25 139/79 97 10/23/19 15:20 142/84 98 10/23/19 15:15 126/67 99 10/23/19 15:10 116/64 99 10/23/19 15:05 136/73 99 10/23/19 15:00 131/80 98 10/23/19 14:55 133/80 99 10/23/19 14:50 114/61 100 10/23/19 14:45 122/71 99 10/23/19 14:40 122/66 100 10/23/19 14:35 123/72 99 10/23/19 14:30 132/81 99 10/23/19 14:25 133/79 98 10/23/19 14:20 100 10/23/19 14:19 99 10/23/19 14:10 98/71 100 10/23/19 14:05 98/71 99 10/23/19 14:00 106/69 99 10/23/19 13:55 110/67 98 10/23/19 13:50 110/62 99 10/23/19 13:45 109/58 97 10/23/19 13:40 112/61 98 10/23/19 13:35 115/70 99 10/23/19 13:30 115/67 98 10/23/19 13:26 110/53 100 10/23/19 13:20 112/61 98 10/23/19 13:15 110/62 98 10/23/19 13:10 110/63 98 10/23/19 13:05 112/63 98 10/23/19 13:00 120/73 97 10/23/19 12:55 125/75 99 10/23/19 12:50 124/76 98 10/23/19 12:45 118/65 97 10/23/19 12:40 126/75 98 10/23/19 12:35 133/81 98 10/23/19 12:30 130/79 100 10/23/19 12:25 133/82 99 10/23/19 12:20 131/83 97 10/23/19 12:15 126/76 95 10/23/19 12:10 129/76 94 10/23/19 12:05 135/83 95 10/23/19 12:00 134/85 98 10/23/19 11:55 138/87 97 10/23/19 11:50 147/88 100 10/23/19 11:45 168/94 100 10/23/19 11:40 167/100 100 10/23/19 11:35 180/103 100 10/23/19 11:30 168/101 100 10/23/19 11:25 186/102 100 10/23/19 11:20 171/99 100 10/23/19 11:15 169/97 100 10/23/19 11:10 140/95 100 10/23/19 11:06 140/95 99 10/23/19 11:00 148/94 100 10/23/19 10:55 141/90 99 10/23/19 10:50 133/90 100 10/23/19 10:45 148/99 97 10/23/19 10:40 143/87 98 10/23/19 10:35 130/89 98 10/23/19 10:30 139/100 99 10/23/19 10:25 134/89 99 10/23/19 10:20 154/107 98 10/23/19 10:15 154/107 100 10/23/19 10:10 166/104 100 10/23/19 10:05 182/104 100 10/23/19 10:00 176/118 100 - Physical Examination HEENT: Positive: PERRL, Normocephaly, Mucus Membranes Moist Neck: Positive: neck supple, trachea midline Neuro: Positive: Grossly Intact Abdomen: Negative: Tender Musculoskeletal: No Pain Extremities: Absent: edema - Imaging and Cardiology EKG: report reviewed, image reviewed Echo: report reviewed (08/2019 showed EF 45-50%, mod LVH, impaired relaxation, trivial pericardial effusion. ) - EKG Sinus rhythms and dysrhythmias: sinus rhythm
[2019-10-24] MEDS: INSULIN LISPRO 100 UNIT/ML SUB-Q SCH ×2 (11:18→12:42)
[2019-10-24] MEDS: INSULIN GLARGINE 100 UNITS/ML SUB-Q SCH (11:20)
[2019-10-24] MEDS: METOCLOPRAMIDE 10 MG/2 ML INJ IV SCH ×2 (11:22→12:30)
--- NOTE | 2019-10-24 11:38 | Progress Note ---
Assessment and Plan Hypertensive emergency. Chest pain. End-stage renal disease, on dialysis, poorly compliant. Nausea and vomiting. Abdominal pain. Anemia that is microcytic. Mild metabolic acidosis. Hyperkalemia. Hyperglycemia. History of diabetes. Subjective Date of service: 10/24/19 Principal diagnosis: UGIB Interval history: Patient is seen today for: Hypertensive emergency; Chest pain; ESRD on Dialysis; N & V; Abdominal pain; DM II Seen and examined at bedside; 24hour events reviewed; nursing and respiratory care staff consulted; no adverse overnight events reported to me; Objective Vital Signs - 12hr 10/23/19 10/24/19 10/24/19 23:42 00:00 04:00 Temperature 98.4 F Pulse Rate 76 76 76 Respiratory 18 Rate Blood Pressure 140/86 O2 Sat by Pulse 97 Oximetry 10/24/19 10/24/19 10/24/19 04:32 06:10 07:32 Temperature 98.5 F 98.0 F Pulse Rate 81 80 79 Respiratory 20 18 Rate Blood Pressure 158/95 166/96 133/76 O2 Sat by Pulse 100 99 Oximetry 10/24/19 10/24/19 10/24/19 08:14 08:46 08:52 Temperature Pulse Rate 79 Respiratory Rate Blood Pressure 155/96 155/88 O2 Sat by Pulse Oximetry 10/24/19 10/24/19 10/24/19 08:53 08:55 08:57 Temperature Pulse Rate Respiratory Rate Blood Pressure 115/66 123/81 132/79 O2 Sat by Pulse Oximetry 10/24/19 08:58 Temperature Pulse Rate Respiratory Rate Blood Pressure 129/82 O2 Sat by Pulse Oximetry CBC and BMP: 10/23/19 05:06 10/23/19 05:06 ABG, PT/INR, D-dimer: PT/INR, D-dimer PT 13.9 Sec. (12.2-14.9) 10/22/19 05:05 INR 1.06 (0.87-1.13) 10/22/19 05:05 Abnormal lab findings: Abnormal Labs 10/21/19 10/21/19 10/22/19 19:59 19:59 05:05 WBC 11.5 H RBC 3.42 L Hgb 10.6 L 8.7 L Hct 32.4 L 26.9 L MCV 79 L 79 L MCH 26 L 26 L RDW 20.2 H 20.5 H Seg Neutrophils % 80.3 H Seg Neuts % (Manual) 84.0 H Lymphocytes % (Manual) 12.0 L Basophils % (Manual) 2.0 H Seg Neutrophils # 8.2 H Seg Neutrophils # Man 9.7 H Basophils # (Manual) 0.2 H APTT Potassium 5.3 H Carbon Dioxide 17 L BUN 69 H Creatinine 13.0 H Glucose 233 H POC Glucose Total Creatine Kinase CK-MB (CK-2) Troponin T Total Protein Albumin 2.9 L Triglycerides Cholesterol LDL Cholesterol Direct HDL Cholesterol 10/22/19 10/22/19 10/22/19 05:05 05:05 08:26 WBC RBC Hgb Hct MCV MCH RDW Seg Neutrophils % Seg Neuts % (Manual) Lymphocytes % (Manual) Basophils % (Manual) Seg Neutrophils # Seg Neutrophils # Man Basophils # (Manual) APTT 41.1 H Potassium 5.3 H Carbon Dioxide 18 L BUN 69 H Creatinine 13.8 H Glucose 271 H POC Glucose 266 H Total Creatine Kinase CK-MB (CK-2) Troponin T Total Protein Albumin Triglycerides Cholesterol LDL Cholesterol Direct HDL Cholesterol 10/22/19 10/22/19 10/22/19 13:00 13:56 18:38 WBC RBC Hgb Hct MCV MCH RDW Seg Neutrophils % Seg Neuts % (Manual) Lymphocytes % (Manual) Basophils % (Manual) Seg Neutrophils # Seg Neutrophils # Man Basophils # (Manual) APTT Potassium Carbon Dioxide BUN Creatinine Glucose POC Glucose 244 H 238 H Total Creatine Kinase 525 H CK-MB (CK-2) 9.9 H Troponin T 1.010 H* Total Protein Albumin Triglycerides 225 H Cholesterol 274 H LDL Cholesterol Direct 186 H HDL Cholesterol 62 H 10/22/19 10/23/19 10/23/19 23:20 05:06 05:06 WBC RBC 3.15 L Hgb 8.1 L Hct 24.7 L MCV 78 L MCH 26 L RDW 20.3 H Seg Neutrophils % Seg Neuts % (Manual) Lymphocytes % (Manual) Basophils % (Manual) Seg Neutrophils # Seg Neutrophils # Man Basophils # (Manual) APTT Potassium Carbon Dioxide BUN 34 H Creatinine 8.9 H Glucose 148 H POC Glucose 266 H Total Creatine Kinase CK-MB (CK-2) Troponin T Total Protein 5.7 L Albumin 3.0 L Triglycerides Cholesterol LDL Cholesterol Direct HDL Cholesterol 10/23/19 10/23/19 10/23/19 05:06 05:29 12:28 WBC RBC Hgb Hct MCV MCH RDW Seg Neutrophils % Seg Neuts % (Manual) Lymphocytes % (Manual) Basophils % (Manual) Seg Neutrophils # Seg Neutrophils # Man Basophils # (Manual) APTT Potassium Carbon Dioxide BUN Creatinine Glucose POC Glucose 133 H 170 H Total Creatine Kinase 647 H CK-MB (CK-2) 6.6 H Troponin T 0.869 H* Total Protein Albumin Triglycerides Cholesterol LDL Cholesterol Direct HDL Cholesterol 10/23/19 10/23/19 10/24/19 16:50 18:07 07:40 WBC RBC Hgb Hct MCV MCH RDW Seg Neutrophils % Seg Neuts % (Manual) Lymphocytes % (Manual) Basophils % (Manual) Seg Neutrophils # Seg Neutrophils # Man Basophils # (Manual) APTT Potassium Carbon Dioxide BUN Creatinine Glucose POC Glucose 156 H 262 H 179 H Total Creatine Kinase CK-MB (CK-2) Troponin T Total Protein Albumin Triglycerides Cholesterol LDL Cholesterol Direct HDL Cholesterol 10/24/19 11:38 WBC RBC Hgb Hct MCV MCH RDW Seg Neutrophils % Seg Neuts % (Manual) Lymphocytes % (Manual) Basophils % (Manual) Seg Neutrophils # Seg Neutrophils # Man Basophils # (Manual) APTT Potassium Carbon Dioxide BUN Creatinine Glucose POC Glucose 256 H Total Creatine Kinase CK-MB (CK-2) Troponin T Total Protein Albumin Triglycerides Cholesterol LDL Cholesterol Direct HDL Cholesterol
[2019-10-24] MEDS: LOSARTAN 50 MG TAB PO SCH (12:28)
--- NOTE | 2019-10-24 12:28 | Progress Note ---
Subjective Principal diagnosis: UGIB Interval history: Patient was seen today for follow-up on multiple renal related issues urrently in hemodialysis Saturday he is currently out of the ICU Patient denies any complaints of chest pain shortness of breath nausea vomiting Events over 24 hours were noted Vitals intake output medications were reviewed Allergies: Reviewed Social/family history: Reviewed Physical examination: Gen.: No acute distress HEENT: Oral mucosa moist, no icterus Neck: Supple no thyromegaly maass or JVD Chest: Clear to auscultation Heart: Regular rate and rhythm S1-S2 heard no S3-S4 Abdomen: Soft nontender no suprapubic masses nor organomegaly Extremity: Dry skin less than 1+ edema,No petechial rashes Psych: No evidence of any agitation and aggression noted Neurological: Alert awake Assessment and plan End-stage renal disease currently on maintenance hemodialysis admitted with missing dialysis treatment uncontrolled hypertension He is currently in maintenance hemodialysis Saturday and Saturday Anemia and end-stage renal disease: To monitor and follow complicated by upper GI bleed with history of gastroparesis noted to have ulcerative esophagitis, Secondary hyperparathyroidism: To monitor and follow Noncompliance: This can resultant high mortality risk patient has been educated about this His last dialysis was approximately a week ago prior to admission Hyperkalemia to monitor and follow metabolic acidosis: To monitor and follow Mild leukocytosis must be monitored Anemia in end-stage renal disease current hemoglobin 8.7 to monitor and follow Hypertension currently well controlled Significantly elevated troponin in a patient who is noncompliant end-stage renal disease status must be followed by cardiology Patient has been adequately counseled and educated regarding all the renal related issues and does have a good understanding Lab results as well as renal progress was discussed with patient and simple Norwegian Will give him erythropoietin 20,000 units subcutaneous 1 Multiple health issues including dialysis hypertension diabetes gastroparesis ulcerative esophagitis ejection fraction 45-50%, moderate LVH small pericardial effusion Prognosis: Long-term guarded to poor will depend on his compliance We will continue to follow and make recommendation from renal standpoint. For any questions please call me at: [phone] Objective - Vital Signs Vital signs: Vital Signs - 12hr 10/24/19 10/24/19 10/24/19 04:00 04:32 06:10 Temperature 98.5 F Pulse Rate 76 81 80 Respiratory 20 Rate Blood Pressure 158/95 166/96 O2 Sat by Pulse 100 Oximetry 10/24/19 10/24/19 10/24/19 07:32 08:14 08:46 Temperature 98.0 F Pulse Rate 79 79 Respiratory 18 Rate Blood Pressure 133/76 155/96 O2 Sat by Pulse 99 Oximetry 10/24/19 10/24/19 10/24/19 08:52 08:53 08:55 Temperature Pulse Rate Respiratory Rate Blood Pressure 155/88 115/66 123/81 O2 Sat by Pulse Oximetry 10/24/19 10/24/19 10/24/19 08:57 08:58 12:21 Temperature Pulse Rate 72 Respiratory Rate Blood Pressure 132/79 129/82 O2 Sat by Pulse Oximetry - Lab 10/23/19 05:06 10/23/19 05:06 Most recent lab results Calcium 9.0 mg/dL (8.4-10.2) 10/23/19 05:06 Medications & Allergies - Medications Allergies/Adverse Reactions: Allergies No Known Allergies Allergy (Verified 11/21/18 17:51) Home Medications: Home Medications Medication Instructions Recorded Confirmed Last Taken Type Losartan [Cozaar] 100 mg PO QDAY #30 tablet 09/10/19 10/23/19 10/20/19 16:00 Rx Metoclopramide [Reglan ORAL LIQ] 10 mg PO QID 30 Days 09/10/19 10/23/19 10/21/19 08:00 Rx Pantoprazole [Protonix TAB] 40 mg PO BIDAC #60 09/10/19 10/23/19 10/21/19 07:00 Rx amLODIPine 10 mg PO QDAY #30 tablet 09/10/19 10/23/19 10/21/19 08:00 Rx Insulin Glargine [Lantus VIAL] 13 units SUB-Q QHS 10/23/19 10/23/19 10/20/19 22:00 History Lispro Insulin [HumaLOG] 5 units SUB-Q PC 10/23/19 10/23/19 10/20/19 15:30 History labetaloL [Labetalol 200mg TAB] 200 mg PO BID 10/23/19 10/23/19 10/21/19 History Active Medications: Generic Name Dose Route Start Last Admin Trade Name Freq PRN Reason Stop Dose Admin Amlodipine Besylate 10 mg 10/23/19 11:00 10/23/19 11:00 Amlodipine PO 10 mg QDAY [facility] Administration Clonidine HCl 0.1 mg 10/29/19 11:00 Catapres-Tts Patch TD Th [facility] Heparin Sodium (Porcine) 5,000 unit 10/22/19 06:00 10/24/19 06:10 Heparin SUB-Q 5,000 unit Q8HR KESHIA Administration Insulin Glargine 13 units 10/23/19 08:00 10/24/19 11:20 Lantus SUB-Q Not Given QAMDIAB [facility] Insulin Human Lispro 0 unit 10/23/19 22:00 10/24/19 11:18 Humalog SUB-Q Not Given ACHS [facility] Protocol Labetalol HCl 200 mg 10/23/19 11:00 10/24/19 06:10 Labetalol PO 200 mg Q8HR KESHIA Administration Lorazepam 0.5 mg 10/23/19 10:05 Ativan PO Q6H PRN N/V unrelieved by ZOFRAN Losartan Potassium 100 mg 10/23/19 11:00 10/23/19 11:00 Cozaar PO 100 mg QDAY [facility] Administration Magnesium Hydroxide 30 ml 10/21/19 22:36 Milk Of Magnesia PO Q4H PRN Constipation Metoclopramide HCl 5 mg 10/22/19 11:30 10/24/19 11:22 Reglan IV Not Given [facility] Metoprolol Tartrate 5 mg 10/23/19 10:41 Metoprolol IV Q4HR PRN Hypertension Morphine Sulfate 2 mg 10/21/19 22:36 Morphine IV Q4H PRN Pain, Moderate (4-6) Ondansetron HCl 4 mg 10/21/19 22:36 10/22/19 19:43 Zofran IV 4 mg Q8H PRN Administration Nausea And Vomiting Pantoprazole Sodium 40 mg 10/23/19 22:00 10/23/19 22:13 Protonix PO 40 mg BID KESHIA Administration Sodium Chloride 10 ml 10/22/19 10:00 10/23/19 22:14 Sodium Chloride Flush Syringe 10 Ml IV 10 ml BID KESHIA Administration Sodium Chloride 10 ml 10/21/19 22:36 Sodium Chloride Flush Syringe 10 Ml IV PRN PRN LINE FLUSH
[2019-10-24] MEDS: amLODIPine 10 MG TAB PO SCH (12:29)
[2019-10-24] MEDS: PANTOPRAZOLE 40 MG TAB PO SCH (12:30)
--- NOTE | 2019-10-24 13:12 | Discharge Summary ---
Providers - Providers Date of Admission: 10/21/19 22:11 Attending physician: BERNARDINO PHAN MD 10/21/19 21:36 Consult to Physician [CONS] Stat Comment: Dr. Luna spoke with Dr. Romano @ [id number] Consulting Provider: MARYELLEN ROMANO Physician Instructions: Reason For Exam: end-stage renal disease, volume overload, hyperten 10/21/19 22:36 Consult to Dietitian/Nutrition [CONS] Routine Physician Instructions: Reason For Exam: Reason for Consult: Diet education 10/22/19 07:51 Consult to Physician [CONS] Routine Comment: Consulting Provider: CARLYN GONZALES Physician Instructions: Reason For Exam: hemetemsis 10/22/19 07:52 Consult to PICC Line RN [CONS] Routine Reason For Exam: access Type Line:: Midline 10/22/19 11:40 Consult to Physician [CONS] Routine Comment: Consulting Provider: FAITH ST Physician Instructions: Reason For Exam: critical care 10/22/19 15:57 Consult to Physician [CONS] Routine Comment: Consulting Provider: JOSE RESENDEZ Physician Instructions: Reason For Exam: chest pain; NSTEMI Primary care physician: EMERGENCY MEDICAL DISPATCHER Hospitalization Reason for admission: Hypertensive urgency Condition: Stable Hospital course: 33-year-old -[place] male with known history of end-stage renal disease on dialysis presented to the emergency room today complaining of nausea and vomiting with associated abdominal pain. Patient indicates he has not been able to go for his dialysis for about a week because he has not been feeling quite well. He denies any fever no chills, denies any chest pain but has had some shortness of breath. Upon arrival in the emergency room his work-up reveals hypokalemia, he was quite hypertensive, and he was volume overloaded on the chest x-ray. Patient was subsequently started on nitro drip and party host on-call was consulted by the ER physician. Patient will be promptly scheduled for dialysis. Patient was treated with dialysis and improved blood pressure medications were restarted patient has not been compliant I did discuss with him the need to be compliant we also added a Catapres patch for him for when he has persistent nausea vomiting I did discuss how he should use this. He verbalized understanding he is clinically stable at this point he was seen by cardiology and had a stress test today that was negative and cleared for discharge. (1) Acute hyperkalemia (2) End-stage renal disease needing dialysis (3) Hypertensive emergency (4) Intractable nausea and vomiting (5) Volume overload (6) TYPE 2 [place] Disposition: - TO HOME OR SELFCARE Time spent for discharge: 35 minutes Core Measure Documentation - Palliative Care Palliative Care/ Comfort Measures: Not Applicable - Core Measures Any of the following diagnoses?: none Exam - Physical Exam Narrative exam: General appearance: Present: No distress, sitting up eating his lunch. - EENT Eyes: Present: PERRL, EOM intact ENT: hearing intact, clear oral mucosa, dentition normal - Neck Neck: Present: supple, normal ROM - Respiratory Respiratory effort: normal Respiratory: bilateral: CTA - Cardiovascular Rhythm: regular Heart Sounds: Present: S1 & S2 - Extremities Extremities: no ischemia, pulses intact, No edema Peripheral Pulses: within normal limits - Abdominal General gastrointestinal: Present: soft, non-tender, non-distended - Integumentary Integumentary: Present: clear, warm, dry - Musculoskeletal Musculoskeletal: strength equal bilaterally - Psychiatric Psychiatric: appropriate mood/affect, intact judgment & insight, cooperative - Neurologic Neurologic: CNII-XII intact, moves all extremities - Constitutional Vitals: Temp Pulse Resp BP Pulse Ox 98.0 F 72 18 129/82 99 10/24/19 07:32 10/24/19 12:21 10/24/19 07:32 10/24/19 08:58 10/24/19 07:32 Plan Activity: advance as tolerated, fall precautions Diet: diabetic, renal Special Instructions: record daily weights, record daily BP diary, record blood sugar diary Additional Instructions: must be complaint with meds Follow up with: CLEOPATRA HALL MD [Primary Care Provider] - 7 Days NICK ESTEBAN MD [Staff Physician] - 7 Days LAM LIVINGSTON MD [Staff Physician] - 7 Days KALYAN MCALLISTER MD [Staff Physician] - 7 Days Prescriptions: amLODIPine 10 mg PO QDAY #30 tablet cloNIDine-TTS PATCH [Catapres-Tts 0.1MG Patch] 0.1 mg TD Th #7 patch Losartan [Cozaar] 100 mg PO QDAY #60 tablet labetaloL [Labetalol 200mg TAB] 200 mg PO Q8HR #90 tablet Insulin Glargine [Lantus VIAL] 18 units SUB-Q QAMDIAB #100 units Pantoprazole [Protonix TAB] 40 mg PO DAILY #30 tablet
[2019-10-24] MEDS ORDERED: SODIUM CHLORIDE*PRIMING MACHINE ONLY FOR DIALYSIS MC ONE (13:27)
[2019-10-24 14:46] VITALS: BP 105/62
--- NOTE | 2019-10-25 01:46 | Treadmill Report ---
REFERRING PHYSICIAN: Hospitalist service. PROTOCOL: The patient was brought to the stress lab in a postoperative state, given 10 mCi of technetium 99m at rest. The patient underwent rest imaging. The patient underwent Lexiscan stress test. At peak stress, the patient was given 26 mCi of technetium 99m. Shortly thereafter, the patient underwent stress imaging. Raw imaging reveals mild GI artifact, no significant motion effect. SPECT imaging examined carefully in horizontal long axis, vertical long axis, short axis views. There is normal mitral uptake of radioisotope in all four segments. No evidence of significant fixed or reversible perfusion defects suggestive of prior infarction or ischemia. Gated wall motion reveals mild global left ventricular hypokinesis. Calculated ejection fraction of 44%. No TID. CONCLUSIONS: 1. Normal myocardial perfusion scan without evidence of active ischemia or prior infarction. 2. Mild global left ventricular hypokinesis. Calculated ejection fraction of 44% without evidence of stress-induced segmental wall motion abnormalities or transient ischemic dilation. JOB# [id number] [facility]UB[facility]
[2019-10-29] MEDS ORDERED: cloNIDine TTS 0.1 MG/24 HR PATCH TD SCH (11:00)
== END 2019-10-24 15:00 | disposition home or self-care (01) | DRG 377 ==
LOC: ED 19:08 → CC1 22:11 → 4A 10-23 18:39
PROVIDERS: ADMIT Internal Medicine Geriatric Medicine; ATTEND Internal Medicine
PROC: 5A1D70Z Performance of Urinary Filtration, Intermittent, Less than 6 Hours Per Day (ICD-10-PCS; principal; 2019-10-22)
DX: K92.0 Hematemesis (principal); I21.A1 Myocardial infarction type 2; N18.6 End stage renal disease; I16.1 Hypertensive emergency; I43 Cardiomyopathy in diseases classified elsewhere; I13.11 Hypertensive heart and chronic kidney disease without heart failure, with stage 5 chronic kidney disease, or end stage renal disease; E87.2 Acidosis; E87.5 Hyperkalemia; E11.43 Type 2 diabetes mellitus with diabetic autonomic (poly)neuropathy; E87.70 Fluid overload, unspecified; K31.84 Gastroparesis; J45.909 Unspecified asthma, uncomplicated; E11.22 Type 2 diabetes mellitus with diabetic chronic kidney disease; E11.65 Type 2 diabetes mellitus with hyperglycemia; D50.9 Iron deficiency anemia, unspecified; E11.40 Type 2 diabetes mellitus with diabetic neuropathy, unspecified; D63.1 Anemia in chronic kidney disease; E21.1 Secondary hyperparathyroidism, not elsewhere classified; D72.829 Elevated white blood cell count, unspecified; Z89.411 Acquired absence of right great toe; Z99.2 Dependence on renal dialysis; Z90.49 Acquired absence of other specified parts of digestive tract; Z79.4 Long term (current) use of insulin; Z79.899 Other long term (current) drug therapy; Z91.19 Patient's noncompliance with other medical treatment and regimen; Z91.15 Patient's noncompliance with renal dialysis
CPT/HCPCS: 36415; 71045; 78452; 80048; 80053; 80061; 80074; 80076; 82550; 82553; 82962; 83690; 84484; 85007; 85025; 85027; 85610; 85730; 87116; 93005; 93010; 93017; 96374; 96375; G0378; A9502; C9113; J0360; J0885; J1644; J1815; J2405; J2765; J2785; J7030

== ENCOUNTER 2019-11-02 20:51 | Observation (INO) | payer MEDICAID, OTHER ==
--- NOTE | 2019-11-02 21:26 | Event Note ---
ED Screening Note Date of service: 11/02/19 Time: 21:24 ED Screening Note: c/o upper abdominal pain and N/V x 2 days dialysis pt-last HD today +diaphoresis on exam This initial assessment/diagnostic orders/clinical plan/treatment(s) is/are subject to change based on patients health status, clinical progression and re- assessment by fellow clinical providers in the ED. Further treatment and workup at subsequent clinical providers discretion. Patient/guardian urged not to elope from the ED as their condition may be serious if not clinically assessed and managed. Initial orders include: labs CT abdomen
[2019-11-02] MEDS ORDERED: ONDANSETRON 4 MG ODT TAB PO ONE (21:27)
[2019-11-02] MEDS ORDERED: ONDANSETRON 4 MG ODT TAB ONE (21:29)
[2019-11-02 22:07] LABS: Basophils # (Auto) 0.1 K/mm3 (0.0-0.1); Basophils % (Auto) 0.9 % (0.0-1.8); Eosinophils % (Auto) 0.1 % (0.0-4.3); Hematocrit 33.2 % (35.5-45.6); Hemoglobin 10.4 gm/dl (11.8-15.2); Lymphocytes # (Auto) 1.2 K/mm3 (1.2-5.4); Lymphocytes % (Auto) 10.3 % (13.4-35.0); Mean Corpuscular HGB Conc 31 % (32-34); Mean Corpuscular Volume 80 fl (84-94); Monocytes # (Auto) 0.6 K/mm3 (0.0-0.8); Monocytes % (Auto) 5.3 % (0.0-7.3); Platelet Count 475 K/mm3 (140-440); Red Blood Count 4.14 M/mm3 (3.65-5.03)
[2019-11-02 22:08] LABS: Red Cell Distribution Width 22.7 % (13.2-15.2)
[2019-11-02 22:19] LABS: INR 0.96 (0.87-1.13)
--- NOTE | 2019-11-02 22:19 | XRay Report ---
CHEST 1 VIEW INDICATION: chest pain COMPARISON: 10/21/2019 FINDINGS: Support devices: Right central line position unchanged Heart: Normal and unchanged Lungs/Pleura: No acute pulmonary or pleural findings. IMPRESSION: 1. No acute disease and no interval change. Signer Name: Temo Malone MD Signed: 11/02/2019 10:15 PM Workstation Name: [id number]
[2019-11-02] MEDS ORDERED: HALOPERIDOL LACTATE 5 MG/1 ML INJ IM ONE (22:24)
[2019-11-02 22:39] LABS: Albumin 3.2 g/dL (3.9-5); Calcium 9.5 mg/dL (8.4-10.2)
--- NOTE | 2019-11-02 23:12 | Cat Scan Report ---
CT abdomen pelvis wo con INDICATION: upper abdominal pain, hemoptysis. TECHNIQUE: All CT scans at this location are performed using CT dose reduction for ALARA by means of automated e xposure control. COMPARISON: 04/18/2019 FINDINGS: Small right effusion. Lung bases are clear. Liver, gallbladder, spleen, pancreas, kidneys and adrenal s are grossly negative. Abdominal aorta is normal in size. Pelvis Small amount of ascites in the dependent pelvis. Urinary bladder appears unremarkable. Appendix canno t be identified and may well have been resected. Mild, diffuse subcutaneous edema is actually much improved since April. IMPRESSION: 1. Improved anasarca, now with only mild subcutaneous edema and small amount of ascites. 2. No new abnormalities. Signer Name: Temo Malone MD Signed: 11/02/2019 11:07 PM Workstation Name: [id number]
[2019-11-02] MEDS ORDERED: CALCIUM GLUCONATE 1,000 MG in SODIUM CHLORIDE 0.9% 100 ML IV ONE (23:32)
[2019-11-02] MEDS ORDERED: SODIUM BICARB 8.4% 50 MEQ/50 ML SYRINGE IV ONE (23:35)
[2019-11-02] MEDS ORDERED: INSULIN REGULAR, HUMAN 100 UNITS/1 ML IV ONE (23:35)
[2019-11-02] MEDS ORDERED: DEXTROSE 50% IN WATER (25GM) 50 ML SYRINGE IV ONE (23:35)
--- NOTE | 2019-11-02 23:35 | Emergency Department Report ---
ED Abdominal Pain HPI - General Chief Complaint: Abdominal Pain Stated Complaint: UPPER GI BLEED/VOMITTING BLOOD Time Seen by Provider: 11/02/19 21:24 Source: patient, EMS Mode of arrival: Ambulatory Limitations: No Limitations - History of Present Illness Initial Comments: PAtient reports hx of gastroparesis. Reports abd, n/v that feels similar to pas t flares of gastroparesis. Reports hx ESRD on HD MWF. Reports he did not go to HD today because of N/v and unable to take his medications. MD Complaint: abdominal pain -: Gradual, days(s) Location: periumbilical Radiation: none Migration to: no migration Severity: mild Severity scale (0 -10): 3 Quality: aching Consistency: intermittent Improves With: nothing Worsens With: nothing Context: other (hx gastroparesis) Associated Symptoms: nausea, vomiting, anorexia. denies: diarrhea, fever, chills, constipation, dysuria, hematochezia, melena, hematuria, syncope - Related Data Home Medications Medication Instructions Recorded Confirmed Last Taken Lispro Insulin [HumaLOG] 5 units SUB-Q PC 10/23/19 10/23/19 10/20/19 15:30 Previous Rx's Medication Instructions Recorded Last Taken Type Metoclopramide [Reglan ORAL LIQ] 10 mg PO QID 30 Days 09/10/19 10/21/19 08:00 Rx Insulin Glargine [Lantus VIAL] 18 units SUB-Q QAMDIAB #100 units 10/24/19 Unknown Rx Losartan [Cozaar] 100 mg PO QDAY #60 tablet 10/24/19 Unknown Rx Pantoprazole [Protonix TAB] 40 mg PO DAILY #30 tablet 10/24/19 Unknown Rx amLODIPine 10 mg PO QDAY #30 tablet 10/24/19 Unknown Rx cloNIDine-TTS PATCH [Catapres-Tts 1 patch TD Q7D PRN #7 patch 10/24/19 Unknown Rx 0.1MG Patch] labetaloL [Labetalol 200mg TAB] 200 mg PO Q8HR #90 tablet 10/24/19 Unknown Rx Allergies Allergy/AdvReac Type Severity Reaction Status Date / Time No Known Allergies Allergy Verified 11/21/18 17:51 ED Review of Systems ROS: Stated complaint: UPPER GI BLEED/VOMITTING BLOOD Other details as noted in HPI Other: GENERAL: No weight change, fatigue, fever, chills, or night sweats SKIN: No changes in skin or hair, no itching, no rashes, no jaundice HEAD: No trauma EYES: No blurriness, tearing, itching, acute visual loss, conjunctival discoloration, or scleral icterus EARS: No hearing loss, tinnitus, vertigo, or earache NOSE: No rhinorrhea, stuffiness, sneezing, itching, or epistaxis MOUTH: No bleeding gums, hoarseness, sore throat, or swelling CARDIAC: No new murmur, chest pain, palpitations, dyspnea on exertion, orthopnea, PND, or edema RESPIRATORY: No shortness of breath, wheeze, cough, sputum production, hemoptysis GI: Abdominal pain, nausea, vomiting. No dysphagia, diarrhea, constipation, melena, hematochezia URINARY: No frequency, urgency, polyuria, dysuria, hematuria, or incontinence MUSCULOSKELETAL: No muscle weakness, joint stiffness, decrease in range of motion, redness, swelling NEUROLOGIC: No headache, syncope, loss of sensation, numbness, tingling, tremors, weakness, paralysis, seizures HEMATOLOGIC: No anemia, easy bruising, bleeding, petechiae, or purpura ENDOCRINE: No hot or cold intolerance, sweating, polyuria, polydipsia or, polyphagia no thyroid problems ED Past Medical Hx - Past Medical History Hx Hypertension: Yes Hx Heart Attack/AMI: No Hx Congestive Heart Failure: No Hx Diabetes: Yes Hx Deep Vein Thrombosis: No Hx Sickle Cell Disease: No Hx Asthma: Yes Hx COPD: No Hx HIV: No Additional medical history: Ulcerative esophagitis, Gastroparesis - Surgical History Hx Pacemaker: No Hx Internal Defibrillator: No Hx Appendectomy: Yes Additional Surgical History: right great toe removed - Social History Smoking Status: Unknown if ever smoked Substance Use Type: None - Medications Home Medications: Home Medications Medication Instructions Recorded Confirmed Last Taken Type Metoclopramide [Reglan ORAL LIQ] 10 mg PO QID 30 Days 09/10/19 10/23/19 10/21/19 08:00 Rx Lispro Insulin [HumaLOG] 5 units SUB-Q PC 10/23/19 10/23/19 10/20/19 15:30 History Insulin Glargine [Lantus VIAL] 18 units SUB-Q QAMDIAB #100 units 10/24/19 Unknown Rx Losartan [Cozaar] 100 mg PO QDAY #60 tablet 10/24/19 Unknown Rx Pantoprazole [Protonix TAB] 40 mg PO DAILY #30 tablet 10/24/19 Unknown Rx amLODIPine 10 mg PO QDAY #30 tablet 10/24/19 Unknown Rx cloNIDine-TTS PATCH [Catapres-Tts 1 patch TD Q7D PRN #7 patch 10/24/19 Unknown Rx 0.1MG Patch] labetaloL [Labetalol 200mg TAB] 200 mg PO Q8HR #90 tablet 10/24/19 Unknown Rx ED Physical Exam - General Limitations: No Limitations - Other Other exam information: GENERAL: Patient in no acute distress HEAD: Normocephalic, atraumatic EYES: PERRLA, EOM intact, no scleral icterus, no conjunctival hemorrhage, visual stallworth and acuity wnl NOSE: No tenderness, discharge, sinus tenderness MOUTH: No erythema, bleeding, exudate HEART: Regular rate and rhythm, no murmur, S1-S2 are auscultated, no edema, pulses are symmetric LUNGS: No respiratory distress. Bilateral breath sounds, No tachypnea, No retractions, No wheezing, rales, rhonchi ABDOMEN: Normal bowel sounds, abdomen soft, no tenderness, no rebound, no guarding, no distention, no masses, no CVA tenderness MUSCULOSKELETAL: Normal joint range of motion, no redness, no swelling, no tenderness NEUROLOGIC: GCS 15, Alert and Oriented x3, Cranial nerves intact, normal sensation, normal strength, no cerebellar deficit, NIHSS 0 SKIN: Skin is warm and dry, ED Course Vital Signs 11/02/19 11/02/19 21:22 21:25 Temperature 99.0 F 99 F Pulse Rate 119 H 119 H Respiratory 18 22 Rate Blood Pressure 152/99 159/99 O2 Sat by Pulse 100 100 Oximetry ED Medical Decision Making - Lab Data Result diagrams: 11/02/19 21:50 11/02/19 21:50 Laboratory Results - last 24 hr 11/02/19 11/02/19 11/02/19 21:50 21:50 21:50 WBC 11.5 H RBC 4.14 Hgb 10.4 L Hct 33.2 L MCV 80 L MCH 25 L MCHC 31 L RDW 22.7 H Plt Count 475 H Lymph % (Auto) 10.3 L [place] % (Auto) 5.3 Eos % (Auto) 0.1 Baso % (Auto) 0.9 Lymph # 1.2 [place] # 0.6 Eos # 0.0 Baso # 0.1 Seg Neutrophils % 83.4 H Seg Neutrophils # 9.6 H PT 12.9 INR 0.96 APTT 34.0 Sodium 133 L Potassium 5.1 H Chloride 95.4 L Carbon Dioxide 15 L Anion Gap 28 BUN 66 H Creatinine 12.3 H Estimated GFR 6 BUN/Creatinine Ratio 5 Glucose 295 H Calcium 9.5 Total Bilirubin 0.50 AST 27 ALT 14 Alkaline Phosphatase 82 Total Protein 7.0 Albumin 3.2 L Albumin/Globulin Ratio 0.8 Lipase 61 H - EKG Data When compared to previous EKG there are: no significant change - Radiology Data Radiology results: report reviewed - Medical Decision Making Patient comfortable. Updated with results. Plan admit for further evaluation. Hospitalist updated and accepts admission. Critical care attestation.: If time is entered above; I have spent that time in minutes in the direct care of this critically ill patient, excluding procedure time. ED Disposition Clinical Impression: End-stage renal disease needing dialysis, Metabolic acidosis, increased anion gap, Acute hyperkalemia, Intractable nausea and vomiting, Uremia Disposition: 09 OP ADMIT IP TO THIS HOSP Is pt being admited?: Yes Condition: Stable Referrals: PRIMARY CARE, [Primary Care Provider] - 3-5 Days
[2019-11-02] MEDS ORDERED: ACETAMINOPHEN 325 MG TAB PO PRN (23:46)
[2019-11-02] MEDS ORDERED: ONDANSETRON 4 MG/2 ML INJ IV PRN ×2 (23:46→23:54)
[2019-11-02] MEDS ORDERED: METOCLOPRAMIDE 10 MG/2 ML INJ IV PRN (23:54)
[2019-11-02] MEDS ORDERED: cloNIDine TTS 0.1 MG/24 HR PATCH TD PRN (23:57)
[2019-11-03] MEDS ORDERED: DEXTROSE 50% IN WATER (25GM) 50 ML SYRINGE IV PRN (00:08)
[2019-11-03] MEDS ORDERED: DEXTROSE 50% IN WATER (25GM) 50 ML SYRINGE IV ONE (00:09)
[2019-11-03] MEDS ORDERED: INSULIN REGULAR, HUMAN 100 UNITS/1 ML ONE (00:11)
[2019-11-03] MEDS ORDERED: SODIUM BICARB 4.2% 5 MEQ/10 ML SYRINGE ONE (00:11)
[2019-11-03] MEDS ORDERED: SODIUM BICARB 8.4% 50 MEQ/50 ML SYRINGE IV ONE (00:12)
[2019-11-03] MEDS ORDERED: METOCLOPRAMIDE 10 MG/2 ML INJ IV PRN (00:25)
[2019-11-03] MEDS ORDERED: PANTOPRAZOLE 40 MG INJ IV ONE (00:29)
[2019-11-03] MEDS: PANTOPRAZOLE 40 MG INJ IV SCH ×2 (00:34→10:43)
--- NOTE | 2019-11-03 01:36 | History and Physical Report ---
History of Present Illness Date of examination: 11/02/19 Date of admission: 11/02/19 23:46 Chief complaint: Abdominal pain, N/V, Coffee ground emesis, missed HD History of present illness: 33-year-old -[place] male with history of gastroparesis, upper GI bleed, hypertension, diabetes, asthma, and ulcerative esophagitis who presents to [facility] ED with complaints of abdominal pain, nausea, vomiting, large amount of coffee- ground emesis. Patient states that he feels like he is having a "gastroparesis flareup", because his symptoms are similar to gastroparesis flare. Patient has been experiencing abdominal pain, nausea, vomiting for the past 3 to 4 days. He describes his pain as sharp/cramping and rates it 7/10. Patient states that he was unable to go to scheduled hemodialysis session today due to abdominal pain, and n/V. He admits to one episode of large coffee ground emesis. Patient states he has been unable to keep anything down and feels weak. Will admit for further evaluation and treatment. Past History Past Medical History: diabetes, hypertension, other (Asthma, ulcerative esophagitis, gastroparesis, upper GI bleed) Past Surgical History: Other (Right upper chest permacath) Social history: lives with family (With mother) Family history: no significant family history Medications and Allergies Allergies Allergy/AdvReac Type Severity Reaction Status Date / Time No Known Allergies Allergy Verified 11/21/18 17:51 Home Medications Medication Instructions Recorded Confirmed Last Taken Type Metoclopramide [Reglan ORAL LIQ] 10 mg PO QID 30 Days 09/10/19 11/03/19 10/21/19 08:00 Rx Lispro Insulin [HumaLOG] 5 units SUB-Q PC 10/23/19 11/03/19 10/20/19 15:30 History Insulin Glargine [Lantus VIAL] 18 units SUB-Q QAMDIAB #100 units 10/24/19 11/03/19 Unknown Rx Losartan [Cozaar] 100 mg PO QDAY #60 tablet 10/24/19 11/03/19 Unknown Rx Pantoprazole [Protonix TAB] 40 mg PO DAILY #30 tablet 10/24/19 11/03/19 Unknown Rx amLODIPine 10 mg PO QDAY #30 tablet 10/24/19 11/03/19 Unknown Rx cloNIDine-TTS PATCH [Catapres-Tts 1 patch TD Q7D PRN #7 patch 10/24/19 11/03/19 Unknown Rx 0.1MG Patch] labetaloL [Labetalol 200mg TAB] 200 mg PO Q8HR #90 tablet 10/24/19 11/03/19 Unknown Rx Active Meds: Active Medications Acetaminophen (Tylenol) 650 mg PO Q4H PRN PRN Reason: Pain MILD(1-3)/Fever >100.5/LANZA Amlodipine Besylate (Amlodipine) 10 mg PO QDAY [facility] Clonidine HCl (Catapres-Tts Patch) 0.1 mg TD Q7D PRN PRN Reason: Hypertension Dextrose (D50w (25gm) Syringe) 50 ml IV Q30MIN PRN; Protocol PRN Reason: Hypoglycemia Insulin Glargine (Lantus) 15 units SUB-Q QAMDIAB KESH[facility] Insulin Human Lispro (Humalog) 0 unit SUB-Q Q6HR [facility]; Protocol Labetalol HCl (Labetalol) 200 mg PO Q8HR KESH[facility] Losartan Potassium (Cozaar) 100 mg PO QDAY [facility] Metoclopramide HCl (Reglan) 5 mg IV Q6H PRN PRN Reason: Nausea And Vomiting Ondansetron HCl (Zofran) 4 mg IV Q4H PRN PRN Reason: Nausea And Vomiting Pantoprazole Sodium (Protonix) 40 mg IV BID [facility] Last Admin: 11/03/19 00:34 Dose: 40 mg Documented by: Sodium Chloride (Sodium Chloride Flush Syringe 10 Ml) 10 ml IV PRN PRN PRN Reason: LINE FLUSH Review of Systems All systems: negative Constitutional: anorexia, weakness Gastrointestinal: abdominal pain, nausea, vomiting, coffee ground emesis Exam - Physical Exam Narrative exam: Physical exam General appearance: Present: Mild discomfort, alert and oriented x3, well- developed, adult male, - EENT Eyes: Present: PERRL, EOM intact ENT: hearing intact, normal dentition - Neck Neck: Present: supple, normal ROM - Respiratory Respiratory effort: Non-labored Respiratory: Clear throughout - Cardiovascular Heart rate: 108 (bpm) Rhythm: Sinus tachycardia Heart Sounds: Present: S1 & S2. Absent: rub, click - Extremities Extremities: no ischemia, pulses intact, right upper chest permacath - Peripheral Assessment Peripheral Pulses: within normal limits - Abdominal General gastrointestinal: soft, non-tender, normal bowel sounds - Integumentary Integumentary: Present: warm, dry - Musculoskeletal Musculoskeletal: Able to move all extremities -Neurological Neurological: CN II-XII intact - Psychiatric Psychiatric: cooperative - Constitutional Vitals: Temp Pulse Resp BP Pulse Ox 98.6 F 97 H 19 151/93 99 11/03/19 01:02 11/03/19 01:02 11/03/19 01:02 11/03/19 01:02 11/03/19 01:02 Results - Labs CBC & Chem 7: 11/02/19 21:50 11/02/19 21:50 Labs: Laboratory Last Values WBC 11.5 K/mm3 (4.5-11.0) H 11/02/19 21:50 RBC 4.14 M/mm3 (3.65-5.03) 11/02/19 21:50 Hgb 10.4 gm/dl (11.8-15.2) L 11/02/19 21:50 Hct 33.2 % (35.5-45.6) L 11/02/19 21:50 MCV 80 fl (84-94) L 11/02/19 21:50 MCH 25 pg (28-32) L 11/02/19 21:50 MCHC 31 % (32-34) L 11/02/19 21:50 RDW 22.7 % (13.2-15.2) H 11/02/19 21:50 Plt Count 475 K/mm3 (140-440) H 11/02/19 21:50 Lymph % (Auto) 10.3 % (13.4-35.0) L 11/02/19 21:50 [place] % (Auto) 5.3 % (0.0-7.3) 11/02/19 21:50 Eos % (Auto) 0.1 % (0.0-4.3) 11/02/19 21:50 Baso % (Auto) 0.9 % (0.0-1.8) 11/02/19 21:50 Lymph # 1.2 K/mm3 (1.2-5.4) 11/02/19 21:50 [place] # 0.6 K/mm3 (0.0-0.8) 11/02/19 21:50 Eos # 0.0 K/mm3 (0.0-0.4) 11/02/19 21:50 Baso # 0.1 K/mm3 (0.0-0.1) 11/02/19 21:50 Seg Neutrophils % 83.4 % (40.0-70.0) H 11/02/19 21:50 Seg Neutrophils # 9.6 K/mm3 (1.8-7.7) H 11/02/19 21:50 PT 12.9 Sec. (12.2-14.9) 11/02/19 21:50 INR 0.96 (0.87-1.13) 11/02/19 21:50 APTT 34.0 Sec. (24.2-36.6) 11/02/19 21:50 Sodium 133 mmol/L (137-145) L 11/02/19 21:50 Potassium 5.1 mmol/L (3.6-5.0) H 11/02/19 21:50 Chloride 95.4 mmol/L (98-107) L 11/02/19 21:50 Carbon Dioxide 15 mmol/L (22-30) L 11/02/19 21:50 Anion Gap 28 mmol/L 11/02/19 21:50 BUN 66 mg/dL (9-20) H 11/02/19 21:50 Creatinine 12.3 mg/dL (0.8-1.5) H 11/02/19 21:50 Estimated GFR 6 ml/min 11/02/19 21:50 BUN/Creatinine Ratio 5 % 11/02/19 21:50 Glucose 295 mg/dL (75-100) H 11/02/19 21:50 POC Glucose 306 (70-105) H 11/03/19 00:26 Calcium 9.5 mg/dL (8.4-10.2) 11/02/19 21:50 Total Bilirubin 0.50 mg/dL (0.1-1.2) 11/02/19 21:50 AST 27 units/L (5-40) 11/02/19 21:50 ALT 14 units/L (7-56) 11/02/19 21:50 Alkaline Phosphatase 82 units/L (35-129) 11/02/19 21:50 Total Protein 7.0 g/dL (6.3-8.2) 11/02/19 21:50 Albumin 3.2 g/dL (3.9-5) L 11/02/19 21:50 Albumin/Globulin Ratio 0.8 % 11/02/19 21:50 Lipase 61 units/L (13-60) H 11/02/19 21:50 - Imaging and Cardiology Imaging and Cardiology: CXR: Impression no acute disease and no interval change CT abdomen/pelvis: Impression: 1. Improved anasarca, now with only mild subcutaneous edema with small amount of ascites 2. No new abnormalities Assessment and Plan Assessment and plan: 33-year-old -[place] male with history of gastroparesis, upper GI bleed, hypertension, diabetes, asthma, and ulcerative esophagitis who presents to [facility] ED with complaints of abdominal pain, nausea, vomiting, large amount of coffee- ground emesis. Gastroparesis -C/o abdominal pain, nausea, vomiting -History of gastroparesis -Clear liquid diet -Start Antiemetics -Continue supportive care GI bleed -Complains of large amount of coffee-ground emesis -History of ulcerated esophagitis -History of GI bleed -Hgb 10.4 -Continue to monitor Hgb -Transfuse for Hgb less than 7 as needed -GI consulted Anemia -Hemoglobin on admission 10.4 -Suspected GI bleed -Continue to monitor hemoglobin -Transfuse as needed ESRD on HD -M/W/F -Dialyzed on 10/30/2019 -Missed today's HD session due to abdominal pain, n/v -Renal dose all meds -Nephrology consulted DM -With hypoglycemia BG 295 on admission -POC BG monitoring -Scheduled Lantus and SSI coverage prn HTN -Monitor BP -Resume home hypertensive meds Hx Asthma -Albuterol as needed DVT PPX -On SCD's -Hold all anticoagulation due to suspected GI bleed and anemia Advance Directives: No VTE prophylaxis?: Mechanical Plan of care discussed with patient/family: Yes
[2019-11-03] MEDS ORDERED: ALBUTEROL 2.5 MG/3 ML NEBU IH PRN (01:54)
[2019-11-03] MEDS: INSULIN LISPRO 100 UNIT/ML SUB-Q SCH ×4 (07:20→19:19)
[2019-11-03] MEDS ORDERED: INSULIN GLARGINE 100 UNITS/ML SUB-Q SCH (08:00)
--- NOTE | 2019-11-03 08:31 | Gastroenterology Consultation ---
History of Present Illness - Reason for Consult Consult date: 11/03/19 Coffee Ground emesis Requesting physician: DARREN MAIER - History of Present Illness This pleasant 33-year-old gentleman for whom we're consultated for nausea vomiting coffee-ground emesis Patient reports having periodic flares of these symptoms. He does have multiple severe medical comorbidities. He reports his last flare started approximately 2-3 days ago upper abdominal pain associated with nausea and vomiting he did have some emesis that appeared coffee-ground. The pain is moderate, cramping in quality, there was nothing, worse with eating. He reports currently that the symptoms are starting to improve, he reports the pain is only mild down and the nausea is slowly improving Obtained, updated, and reviewed patients current medications Past History Past Medical History: diabetes, hypertension, other (Asthma, ulcerative esophagitis, gastroparesis, upper GI bleed) Past Surgical History: Other (Right upper chest permacath) Social history: lives with family (With mother) Family history: no significant family history Medications and Allergies Allergies Allergy/AdvReac Type Severity Reaction Status Date / Time No Known Allergies Allergy Verified 11/21/18 17:51 Home Medications Medication Instructions Recorded Confirmed Last Taken Type Lispro Insulin [HumaLOG] 5 units SUB-Q PC 10/23/19 11/03/19 10/20/19 15:30 History Insulin Glargine [Lantus VIAL] 18 units SUB-Q QAMDIAB #100 units 10/24/19 11/03/19 Unknown Rx cloNIDine-TTS PATCH [Catapres-Tts 1 patch TD Q7D PRN #7 patch 10/24/19 11/03/19 Unknown Rx 0.1MG Patch] Epoetin [place]ale 10,000 Unit [Procrit] 10,000 unit IV BRENDAN PRN vial 11/03/19 Unknown Rx Insulin Glargine [Lantus VIAL] 15 units SUB-Q QAMDIAB units 11/03/19 Unknown Rx Losartan [Cozaar] 100 mg PO QDAY #30 tablet 11/03/19 Unknown Rx Metoclopramide [Reglan ORAL LIQ] 10 mg PO QID 30 Days #30 11/03/19 Unknown Rx Pantoprazole [Protonix TAB] 40 mg PO DAILY #30 tablet 11/03/19 Unknown Rx amLODIPine 10 mg PO QDAY #30 tablet 11/03/19 Unknown Rx labetaloL [Labetalol 200mg TAB] 200 mg PO Q8HR #90 tablet 11/03/19 Unknown Rx Active Meds: Active Medications Acetaminophen (Tylenol) 650 mg PO Q4H PRN PRN Reason: Pain MILD(1-3)/Fever >100.5/LANZA Albuterol (Proventil) 2.5 mg IH Q4HRT PRN PRN Reason: Shortness Of Breath Amlodipine Besylate (Amlodipine) 10 mg PO QDAY [facility] Clonidine HCl (Catapres-Tts Patch) 0.1 mg TD Q7D PRN PRN Reason: Hypertension Dextrose (D50w (25gm) Syringe) 50 ml IV Q30MIN PRN; Protocol PRN Reason: Hypoglycemia Insulin Glargine (Lantus) 15 units SUB-Q QAMDIAB KESHIA Insulin Human Lispro (Humalog) 0 unit SUB-Q Q6HR [facility]; Protocol Last Admin: 11/03/19 07:20 Dose: 3 unit Documented by: Labetalol HCl (Labetalol) 200 mg PO Q8HR [facility] Last Admin: 11/03/19 05:25 Dose: 200 mg Documented by: Losartan Potassium (Cozaar) 100 mg PO QDAY [facility] Metoclopramide HCl (Reglan) 5 mg IV Q6H PRN PRN Reason: Nausea And Vomiting Ondansetron HCl (Zofran) 4 mg IV Q4H PRN PRN Reason: Nausea And Vomiting Pantoprazole Sodium (Protonix) 40 mg IV BID [facility] Last Admin: 11/03/19 00:34 Dose: 40 mg Documented by: Sodium Chloride (Sodium Chloride Flush Syringe 10 Ml) 10 ml IV PRN PRN PRN Reason: LINE FLUSH Review of Systems - Review of Systems All systems: negative (10 systems reviewed and negative except as mentioned above history of present illness) Exam - Constitutional Vital Signs: Temp Pulse Resp BP Pulse Ox 98.9 F 97 H 16 167/107 99 11/03/19 02:43 11/03/19 05:25 11/03/19 02:43 11/03/19 05:25 11/03/19 02:43 General appearance: other (mildly lethargic) - EENT Eyes: EOM intact ENT: hearing intact - Neck Neck: supple - Respiratory Respiratory effort: normal - Cardiovascular Rhythm: regular - Gastrointestinal General gastrointestinal: Present: soft, tender - Integumentary Integumentary: Present: dry - Neurologic Neurological: oriented to person, oriented to place, oriented to time - Psychiatric Psychiatric: appropriate mood/affect - Labs CBC & Chem 7: 11/02/19 21:50 11/02/19 21:50 Lab Results: Laboratory Results - last 24 hr 11/02/19 11/02/19 11/02/19 21:36 21:50 21:50 WBC 11.5 H RBC 4.14 Hgb 10.4 L Hct 33.2 L MCV 80 L MCH 25 L MCHC 31 L RDW 22.7 H Plt Count 475 H Lymph % (Auto) 10.3 L [place] % (Auto) 5.3 Eos % (Auto) 0.1 Baso % (Auto) 0.9 Lymph # 1.2 [place] # 0.6 Eos # 0.0 Baso # 0.1 Seg Neutrophils % 83.4 H Seg Neutrophils # 9.6 H PT INR APTT Sodium 133 L Potassium 5.1 H Chloride 95.4 L Carbon Dioxide 15 L Anion Gap 28 BUN 66 H Creatinine 12.3 H Estimated GFR 6 BUN/Creatinine Ratio 5 Glucose 295 H POC Glucose 308 H Hemoglobin A1c Calcium 9.5 Total Bilirubin 0.50 AST 27 ALT 14 Alkaline Phosphatase 82 Total Protein 7.0 Albumin 3.2 L Albumin/Globulin Ratio 0.8 Lipase 61 H 11/02/19 11/02/19 11/03/19 21:50 21:50 00:26 WBC RBC Hgb Hct MCV MCH MCHC RDW Plt Count Lymph % (Auto) [place] % (Auto) Eos % (Auto) Baso % (Auto) Lymph # [place] # Eos # Baso # Seg Neutrophils % Seg Neutrophils # PT 12.9 INR 0.96 APTT 34.0 Sodium Potassium Chloride Carbon Dioxide Anion Gap BUN Creatinine Estimated GFR BUN/Creatinine Ratio Glucose POC Glucose 306 H Hemoglobin A1c 6.7 H Calcium Total Bilirubin AST ALT Alkaline Phosphatase Total Protein Albumin Albumin/Globulin Ratio Lipase 11/03/19 07:24 WBC RBC Hgb Hct MCV MCH MCHC RDW Plt Count Lymph % (Auto) [place] % (Auto) Eos % (Auto) Baso % (Auto) Lymph # [place] # Eos # Baso # Seg Neutrophils % Seg Neutrophils # PT INR APTT Sodium Potassium Chloride Carbon Dioxide Anion Gap BUN Creatinine Estimated GFR BUN/Creatinine Ratio Glucose POC Glucose 235 H Hemoglobin A1c Calcium Total Bilirubin AST ALT Alkaline Phosphatase Total Protein Albumin Albumin/Globulin Ratio Lipase Assessment and Plan Patient without overt GI bleeding now, and Hgb on admission above baseline (though do suspect repeat s/p hydration will be lower, to the level of baseline) Therefore no need for EGD at this time. Continue glycemic control, anti-emetics, PPI - Patient Problems (1) Coffee ground emesis Current Visit: Yes Status: Acute (2) Intractable nausea and vomiting Current Visit: Yes Status: Acute (3) Abdominal pain Current Visit: No Status: Acute Qualifiers: Abdominal location: epigastric Qualified Code(s): R10.13 - Epigastric pain (4) Ulcerative esophagitis Current Visit: No Status: Acute
[2019-11-03] MEDS ORDERED: LOSARTAN 50 MG TAB PO SCH (10:00)
[2019-11-03] MEDS ORDERED: amLODIPine 10 MG TAB PO SCH (10:00)
--- NOTE | 2019-11-03 10:17 | Consultation ---
History of Present Illness - Reason for Consult Consult date: 11/03/19 end stage renal disease, hyperkalemia, metabolic acidosis Requesting physician: ERNESTINA ADAMSON - History of Present Illness PAtient reports hx of gastroparesis. Reports abd, n/v that feels similar to past flares of gastroparesis. Reports hx ESRD on HD MWF. Reports he did not go to HD today because of N/v and unable to take his medications. MD Complaint: abdominal pain -: Gradual, days(s) Location: periumbilical Radiation: none Migration to: no migration Severity: mild Severity scale (0 -10): 3 Quality: aching Consistency: intermittent Improves With: nothing Worsens With: nothing Context: other (hx gastroparesis) Associated Symptoms: nausea, vomiting, anorexia. denies: diarrhea, fever, chills, constipation, dysuria, hematochezia, melena, hematuria, syncope ROS: Stated complaint: UPPER GI BLEED/VOMITTING BLOOD Other details as noted in HPI Other: GENERAL: No weight change, fatigue, fever, chills, or night sweats SKIN: No changes in skin or hair, no itching, no rashes, no jaundice HEAD: No trauma EYES: No blurriness, tearing, itching, acute visual loss, conjunctival discoloration, or scleral icterus EARS: No hearing loss, tinnitus, vertigo, or earache NOSE: No rhinorrhea, stuffiness, sneezing, itching, or epistaxis MOUTH: No bleeding gums, hoarseness, sore throat, or swelling CARDIAC: No new murmur, chest pain, palpitations, dyspnea on exertion, orthopnea, PND, or edema RESPIRATORY: No shortness of breath, wheeze, cough, sputum production, hemoptysis GI: Abdominal pain, nausea, vomiting. No dysphagia, diarrhea, constipation, melena, hematochezia URINARY: No frequency, urgency, polyuria, dysuria, hematuria, or incontinence MUSCULOSKELETAL: No muscle weakness, joint stiffness, decrease in range of motion, redness, swelling NEUROLOGIC: No headache, syncope, loss of sensation, numbness, tingling, tremors, weakness, paralysis, seizures HEMATOLOGIC: No anemia, easy bruising, bleeding, petechiae, or purpura ENDOCRINE: No hot or cold intolerance, sweating, polyuria, polydipsia or, polyphagia no thyroid problems - Past Medical History Hx Hypertension: Yes Hx Heart Attack/AMI: No Hx Congestive Heart Failure: No Hx Diabetes: Yes Hx Deep Vein Thrombosis: No Hx Sickle Cell Disease: No Hx Asthma: Yes Hx COPD: No Hx HIV: No Additional medical history: Ulcerative esophagitis, Gastroparesis - Surgical History Hx Pacemaker: No Hx Internal Defibrillator: No Hx Appendectomy: Yes Additional Surgical History: right great toe removed - Social History Smoking Status: Unknown if ever smoked Substance Use Type: None - General Limitations: No Limitations - Other Other exam information: , Past History Past Medical History: diabetes, hypertension, other (Asthma, ulcerative esophagitis, gastroparesis, upper GI bleed) Past Surgical History: Other (Right upper chest permacath) Social history: lives with family (With mother) Family history: no significant family history Medications and Allergies Allergies Allergy/AdvReac Type Severity Reaction Status Date / Time No Known Allergies Allergy Verified 11/21/18 17:51 Home Medications Medication Instructions Recorded Confirmed Last Taken Type Metoclopramide [Reglan ORAL LIQ] 10 mg PO QID 30 Days 09/10/19 11/03/19 10/21/19 08:00 Rx Lispro Insulin [HumaLOG] 5 units SUB-Q PC 10/23/19 11/03/19 10/20/19 15:30 History Insulin Glargine [Lantus VIAL] 18 units SUB-Q QAMDIAB #100 units 10/24/19 11/03/19 Unknown Rx Losartan [Cozaar] 100 mg PO QDAY #60 tablet 10/24/19 11/03/19 Unknown Rx Pantoprazole [Protonix TAB] 40 mg PO DAILY #30 tablet 10/24/19 11/03/19 Unknown Rx amLODIPine 10 mg PO QDAY #30 tablet 10/24/19 11/03/19 Unknown Rx cloNIDine-TTS PATCH [Catapres-Tts 1 patch TD Q7D PRN #7 patch 10/24/19 11/03/19 Unknown Rx 0.1MG Patch] labetaloL [Labetalol 200mg TAB] 200 mg PO Q8HR #90 tablet 10/24/19 11/03/19 Unknown Rx Active Meds: Active Medications Acetaminophen (Tylenol) 650 mg PO Q4H PRN PRN Reason: Pain MILD(1-3)/Fever >100.5/LANZA Albuterol (Proventil) 2.5 mg IH Q4HRT PRN PRN Reason: Shortness Of Breath Amlodipine Besylate (Amlodipine) 10 mg PO QDAY KESHIA Clonidine HCl (Catapres-Tts Patch) 0.1 mg TD Q7D PRN PRN Reason: Hypertension Dextrose (D50w (25gm) Syringe) 50 ml IV Q30MIN PRN; Protocol PRN Reason: Hypoglycemia Insulin Glargine (Lantus) 15 units SUB-Q QAMDIAB KESHIA Insulin Human Lispro (Humalog) 0 unit SUB-Q Q6HR KESHIA; Protocol Last Admin: 11/03/19 07:20 Dose: 3 unit Documented by: Labetalol HCl (Labetalol) 200 mg PO Q8HR [facility] Last Admin: 11/03/19 05:25 Dose: 200 mg Documented by: Losartan Potassium (Cozaar) 100 mg PO QDAY [facility] Metoclopramide HCl (Reglan) 5 mg IV Q6H PRN PRN Reason: Nausea And Vomiting Ondansetron HCl (Zofran) 4 mg IV Q4H PRN PRN Reason: Nausea And Vomiting Pantoprazole Sodium (Protonix) 40 mg IV BID [facility] Last Admin: 11/03/19 00:34 Dose: 40 mg Documented by: Sodium Chloride (Sodium Chloride Flush Syringe 10 Ml) 10 ml IV PRN PRN PRN Reason: LINE FLUSH Exam - Vital Signs Vital signs: Vital Signs Temp Pulse Resp BP Pulse Ox 99.0 F 119 H 18 152/99 100 11/02/19 21:22 11/02/19 21:22 11/02/19 21:22 11/02/19 21:22 11/02/19 21:22 - Physical Exam Narrative exam: GENERAL: Patient in no acute distress HEAD: Normocephalic, atraumatic EYES: PERRLA, EOM intact, no scleral icterus, no conjunctival hemorrhage, visual stallworth and acuity wnl NOSE: No tenderness, discharge, sinus tenderness MOUTH: No erythema, bleeding, exudate HEART: Regular rate and rhythm, no murmur, S1-S2 are auscultated, no edema, pulses are symmetric LUNGS: No respiratory distress. Bilateral breath sounds, No tachypnea, No retractions, No wheezing, rales, rhonchi ABDOMEN: Normal bowel sounds, abdomen soft, no tenderness, no rebound, no guarding, no distention, no masses, no CVA tenderness MUSCULOSKELETAL: Normal joint range of motion, no redness, no swelling, no tenderness NEUROLOGIC: GCS 15, Alert and Oriented x3, Cranial nerves intact, normal sens ation, normal strength, no cerebellar deficit, NIHSS 0 SKIN: Skin is warm and dry Results - Lab Results 11/02/19 21:50 11/02/19 21:50 Most recent lab results Calcium 9.5 mg/dL (8.4-10.2) 11/02/19 21:50 Assessment and Plan Assessment: * End stage renal disease * Hypertension - uncontrolled * Type II DM * Coffee ground emesis --Hx of ulcerative esophagitis * 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
[2019-11-03] MEDS ORDERED: SODIUM CHLORIDE 0.9% 100 ML IV PRN (10:19)
[2019-11-03] MEDS ORDERED: EPOETIN ALFA 10,000 UNIT/1 ML INJ IV PRN (10:19)
[2019-11-03] MEDS ORDERED: ALBUMIN HUMAN 25% (25 GM/100 ML) INJ IV PRN (10:19)
--- NOTE | 2019-11-03 18:07 | Discharge Summary ---
Providers - Providers Date of Admission: 11/02/19 23:46 Date of discharge: 11/03/19 Attending physician: BRENDA MORFIN 11/02/19 23:54 Consult to Physician [CONS] Routine Comment: Consulting Provider: NYA MORENO Physician Instructions: Reason For Exam: ESRD M/W/F need HD 11/03/19 00:23 Consult to Physician [CONS] Routine Comment: Consulting Provider: AYO MILLS Physician Instructions: Reason For Exam: large amount coffee ground emesis, hx gi bleed Primary care physician: DIRECTOR [employer] Hospitalization Condition: Stable Hospital course: 33-year-old -[place]ian male with history of gastroparesis, upper GI bleed, hypertension, diabetes, asthma, and ulcerative esophagitis who presents to [facility] ED with complaints of abdominal pain, nausea, vomiting, large amount of coffee- ground emesis. Patient states that he feels like he is having a "gastroparesis flareup", because his symptoms are similar to gastroparesis flare. Patient has been experiencing abdominal pain, nausea, vomiting for the past 3 to 4 days. He describes his pain as sharp/cramping and rates it 7/10. Patient states that he was unable to go to scheduled hemodialysis session today due to abdominal pain, and n/V. He admits to one episode of large coffee ground emesis.Not clear about history. Patient states he has been unable to keep anything down and feels weak. Patient tells me that he did not throw up for 3 days. Not a reliable historian. No vomiting in Ed or on the floor Gastroparesis -Improved Antiemetics prn GI bleed -Patient without overt GI bleeding now, and Hgb on admission above baseline (though do suspect repeat s/p hydration will be lower, to the level of baseline) Therefore no need for EGD at this time. Continue glycemic control, anti-emetics, PPI Anemia -Hemoglobin on admission 10.4 - GI bleed--no evidence - - ESRD on HD -M/W/F -Dialyzed on 11/03/2019 -Missed yesterday HD session due to abdominal pain, n/v -Renal dose all meds -Nephrology consulted Had HD today Feeling better DM -With hypoglycemia BG 295 on admission -POC BG monitoring -Scheduled Lantus and SSI coverage prn HTN -Monitor BP -Resume home hypertensive meds Hx Asthma -Albuterol as needed Disposition: DC-01 TO HOME OR SELFCARE Core Measure Documentation - Palliative Care Palliative Care/ Comfort Measures: Not Applicable - Core Measures Any of the following diagnoses?: none Exam - Constitutional Vitals: Temp Pulse Resp BP Pulse Ox 98.6 F 86 20 153/89 99 11/03/19 12:50 11/03/19 14:30 11/03/19 12:50 11/03/19 14:30 11/03/19 02:43 General appearance: Present: no acute distress, well-nourished - EENT Eyes: Present: PERRL ENT: hearing intact, clear oral mucosa - Neck Neck: Present: supple, normal ROM - Respiratory Respiratory effort: normal Respiratory: bilateral: CTA - Cardiovascular Heart rate: 78 Rhythm: regular Heart Sounds: Present: S1 & S2. Absent: rub, click - Extremities Extremities: no ischemia, pulses intact, pulses symmetrical, No edema Peripheral Pulses: within normal limits - Abdominal General gastrointestinal: Present: soft, non-tender, non-distended, normal bowel sounds Male genitourinary: Present: normal - Integumentary Integumentary: Present: clear, warm, dry - Musculoskeletal Musculoskeletal: gait normal, strength equal bilaterally - Psychiatric Psychiatric: appropriate mood/affect, intact judgment & insight - Neurologic Neurologic: CNII-XII intact, moves all extremities - Allied Health Allied health notes reviewed: nursing Plan Activity: no restrictions Diet: renal Follow up with: CLEOPATRA HALL MD [Primary Care Provider] - 3-5 Days NICK ESTEBAN MD [Staff Physician] - 7 Days
[2019-11-03] MEDS ORDERED: SODIUM CHLORIDE*PRIMING MACHINE ONLY FOR DIALYSIS MC ONE (18:58)
[2019-11-03 19:57] VITALS: BP 148/72
== END 2019-11-03 20:35 | disposition home or self-care (01) ==
LOC: ED 20:51 → 4A 23:46
PROVIDERS: ADMIT Internal Medicine Geriatric Medicine; ATTEND Internal Medicine
DX: K92.2 Gastrointestinal hemorrhage, unspecified (principal); D64.9 Anemia, unspecified; I12.0 Hypertensive chronic kidney disease with stage 5 chronic kidney disease or end stage renal disease; N18.6 End stage renal disease; E11.22 Type 2 diabetes mellitus with diabetic chronic kidney disease; J45.909 Unspecified asthma, uncomplicated; R11.2 Nausea with vomiting, unspecified; E87.5 Hyperkalemia; E87.2 Acidosis; Z99.2 Dependence on renal dialysis; Z79.4 Long term (current) use of insulin; Z90.49 Acquired absence of other specified parts of digestive tract
CPT/HCPCS: 36415; 71045; 74176; 80053; 82962; 83036; 83690; 85025; 85610; 85730; 93005; 93010; 96372; 96374; 96375; 96376; 99284; C9113; G0378; J0610; J1630; J7030; G0257; J1815; Q0162

== ENCOUNTER 2019-11-11 17:40 | Inpatient (IN) | payer MEDICAID ==
[2019-11-11] MEDS ORDERED: PANTOPRAZOLE 40 MG INJ IV ONE (18:20)
[2019-11-11] MEDS ORDERED: diphenhydrAMINE 50 MG/ML VIAL IV ONE (18:28)
[2019-11-11] MEDS ORDERED: METOCLOPRAMIDE 10 MG/2 ML INJ IV ONE (18:28)
[2019-11-11] MEDS ORDERED: hydrALAZINE 20 MG/1 ML INJ IV ONE (18:29)
[2019-11-11 18:49] LABS: Basophils # (Auto) 0.1 K/mm3 (0.0-0.1); Basophils % (Auto) 1.7 % (0.0-1.8); Eosinophils % (Auto) 0.6 % (0.0-4.3); Hematocrit 26.7 % (35.5-45.6); Hemoglobin 9.2 gm/dl (11.8-15.2); Lymphocytes # (Auto) 1.5 K/mm3 (1.2-5.4); Lymphocytes % (Auto) 17.9 % (13.4-35.0); Mean Corpuscular HGB Conc 34 % (32-34); Mean Corpuscular Volume 81 fl (84-94); Monocytes # (Auto) 0.2 K/mm3 (0.0-0.8); Monocytes % (Auto) 2.8 % (0.0-7.3); Platelet Count 417 K/mm3 (140-440)
[2019-11-11 19:12] LABS: Alanine Aminotransferase 13 units/L (7-56); Albumin 3.1 g/dL (3.9-5); BUN/Creatinine Ratio 6; Blood Urea Nitrogen 65 mg/dL (9-20); Hemolysis Index 40
[2019-11-11 19:20] LABS: Bilirubin,Direct < 0.2 mg/dL (0-0.2)
--- NOTE | 2019-11-11 20:10 | XRay Report ---
ACUTE ABDOMINAL SERIES 3 VIEWS INDICATION: vomiting. COMPARISON: CT abdomen 11/02/2019. FINDINGS: No dilated loops of small bowel are seen. Gas is noted throughout the colon, which is normal in calib er. No free air is identified. There is diffuse increased density over the abdomen/pelvis which may b e due to the presence of mild ascites. No acute pulmonary or pleural findings. IMPRESSION: 1. No radiographic evidence of bowel obstruction. 2. Probable ascites. Signer Name: Ricardo Jaimes MD Signed: 11/11/2019 8:05 PM Workstation Name: [id number]
--- NOTE | 2019-11-11 20:18 | Emergency Department Report ---
ED General Adult HPI - General Chief complaint: Hyperglycemia Stated complaint: HIGH BLOOD SUGAR Time Seen by Provider: 11/11/19 18:16 Source: patient Mode of arrival: Stretcher Limitations: No Limitations - History of Present Illness Initial comments: 34-year-old male with history of ESRD, gastroparesis, ulcerative esophagitis presents to ED stating "I missed dialysis." Patient refuses to speak to me any further, only shakes his head and answers yes or no to my questions. Patient states he missed dialysis yesterday. Patient currently has an emesis bag in hand with coffee-ground emesis in it. When asked if he feels like he is having an exacerbation of his gastroparesis, patient answers yes. For whatever reason, patient will not speak to me, but nurse states he spoke to her and gave her information. Upon reviewing previous charts, pt has exhibited similar behavior in the past. Severity scale (0 -10): 0 Consistency: constant Improves with: none Worsens with: none Associated Symptoms: nausea/vomiting Treatments Prior to Arrival: none - Related Data Home Medications Medication Instructions Recorded Confirmed Last Taken Lispro Insulin [HumaLOG] 5 units SUB-Q PC 10/23/19 11/03/19 10/20/19 15:30 Previous Rx's Medication Instructions Recorded Last Taken Type Insulin Glargine [Lantus VIAL] 18 units SUB-Q QAMDIAB #100 units 10/24/19 Unknown Rx cloNIDine-TTS PATCH [Catapres-Tts 1 patch TD Q7D PRN #7 patch 10/24/19 Unknown Rx 0.1MG Patch] Epoetin Wale 10,000 Unit [Procrit] 10,000 unit IV BRENDAN PRN vial 11/03/19 Unknown Rx Insulin Glargine [Lantus VIAL] 15 units SUB-Q QAMDIAB units 11/03/19 Unknown Rx Losartan [Cozaar] 100 mg PO QDAY #30 tablet 11/03/19 Unknown Rx Metoclopramide [Reglan ORAL LIQ] 10 mg PO QID 30 Days #30 11/03/19 Unknown Rx Pantoprazole [Protonix TAB] 40 mg PO DAILY #30 tablet 11/03/19 Unknown Rx amLODIPine 10 mg PO QDAY #30 tablet 11/03/19 Unknown Rx labetaloL [Labetalol 200mg TAB] 200 mg PO Q8HR #90 tablet 11/03/19 Unknown Rx Allergies Allergy/AdvReac Type Severity Reaction Status Date / Time No Known Allergies Allergy Verified 11/21/18 17:51 ED Review of Systems ROS: Stated complaint: HIGH BLOOD SUGAR Other details as noted in HPI Comment: All other systems reviewed and negative Respiratory: denies: shortness of breath Cardiovascular: denies: chest pain Gastrointestinal: abdominal pain, nausea, vomiting ED Past Medical Hx - Past Medical History Hx Hypertension: Yes Hx Heart Attack/AMI: No Hx Congestive Heart Failure: No Hx Diabetes: Yes Hx Deep Vein Thrombosis: No Hx Sickle Cell Disease: No Hx Asthma: Yes Hx COPD: No Hx HIV: No Additional medical history: Ulcerative esophagitis, Gastroparesis - Surgical History Hx Pacemaker: No Hx Internal Defibrillator: No Hx Appendectomy: Yes Additional Surgical History: right great toe removed - Social History Smoking Status: Never Smoker Substance Use Type: None - Medications Home Medications: Home Medications Medication Instructions Recorded Confirmed Last Taken Type Lispro Insulin [HumaLOG] 5 units SUB-Q PC 10/23/19 11/03/19 10/20/19 15:30 History Insulin Glargine [Lantus VIAL] 18 units SUB-Q QAMDIAB #100 units 10/24/19 11/03/19 Unknown Rx cloNIDine-TTS PATCH [Catapres-Tts 1 patch TD Q7D PRN #7 patch 10/24/19 11/03/19 Unknown Rx 0.1MG Patch] Epoetin Wale 10,000 Unit [Procrit] 10,000 unit IV BRENDAN PRN vial 11/03/19 Unknown Rx Insulin Glargine [Lantus VIAL] 15 units SUB-Q QAMDIAB units 11/03/19 Unknown Rx Losartan [Cozaar] 100 mg PO QDAY #30 tablet 11/03/19 Unknown Rx Metoclopramide [Reglan ORAL LIQ] 10 mg PO QID 30 Days #30 11/03/19 Unknown Rx Pantoprazole [Protonix TAB] 40 mg PO DAILY #30 tablet 11/03/19 Unknown Rx amLODIPine 10 mg PO QDAY #30 tablet 11/03/19 Unknown Rx labetaloL [Labetalol 200mg TAB] 200 mg PO Q8HR #90 tablet 11/03/19 Unknown Rx ED Physical Exam - General Limitations: No Limitations General appearance: alert, in no apparent distress - Head Head exam: Present: atraumatic, normocephalic - Eye Eye exam: Present: normal appearance - ENT ENT exam: Present: mucous membranes moist - Neck Neck exam: Present: normal inspection - Respiratory Respiratory exam: Present: normal lung sounds bilaterally. Absent: respiratory distress - Cardiovascular Cardiovascular Exam: Present: regular rate, normal rhythm - GI/Abdominal GI/Abdominal exam: Present: soft, tenderness (mild diffuse tenderness). Absent: distended - Extremities Exam Extremities exam: Present: normal inspection - Neurological Exam Neurological exam: Present: alert, oriented X3 - Psychiatric Psychiatric exam: Present: flat affect - Skin Skin exam: Present: warm, dry, intact, normal color ED Course Vital Signs 11/11/19 11/11/19 11/11/19 18:21 18:25 19:26 Temperature 98.4 F Pulse Rate 114 H Respiratory 19 25 H Rate Blood Pressure 251/138 Blood Pressure 251/138 [Left] O2 Sat by Pulse 100 100 Oximetry 11/11/19 11/11/19 11/11/19 19:30 19:45 20:01 Temperature Pulse Rate 103 H 90 96 H Respiratory 17 14 12 Rate Blood Pressure 227/127 193/106 220/118 Blood Pressure [Left] O2 Sat by Pulse 98 98 100 Oximetry 11/11/19 11/11/19 11/11/19 20:15 20:30 20:45 Temperature Pulse Rate 91 H 100 H 96 H Respiratory 13 16 17 Rate Blood Pressure 206/116 218/125 221/121 Blood Pressure [Left] O2 Sat by Pulse 100 100 100 Oximetry 11/11/19 11/11/19 11/11/19 21:00 21:15 21:30 Temperature Pulse Rate 80 80 77 Respiratory 13 13 12 Rate Blood Pressure 210/120 187/111 180/107 Blood Pressure [Left] O2 Sat by Pulse 97 98 99 Oximetry 11/11/19 11/11/19 11/11/19 21:45 22:00 22:15 Temperature Pulse Rate 77 76 77 Respiratory 11 L 12 11 L Rate Blood Pressure 186/108 182/109 194/114 Blood Pressure [Left] O2 Sat by Pulse 98 99 98 Oximetry 11/11/19 11/11/19 11/11/19 22:30 22:45 23:00 Temperature Pulse Rate 84 83 Respiratory 0 L 0 L 17 Rate Blood Pressure 196/112 192/109 197/112 Blood Pressure [Left] O2 Sat by Pulse 99 98 98 Oximetry 11/11/19 11/11/19 11/11/19 23:17 23:21 23:30 Temperature Pulse Rate Respiratory Rate Blood Pressure 207/126 207/126 210/118 Blood Pressure [Left] O2 Sat by Pulse 99 99 99 Oximetry 11/11/19 11/11/19 23:41 23:51 Temperature Pulse Rate Respiratory 10 L 10 L Rate Blood Pressure 210/118 207/121 Blood Pressure [Left] O2 Sat by Pulse 98 99 Oximetry - Consultations Consultation #1: 11/11/19 22:16 Spoke w/ Dr Baird, will dialyze pt in the AM. ED Medical Decision Making - Lab Data Result diagrams: 11/12/19 07:20 11/12/19 07:20 - Radiology Data Radiology results: report reviewed, image reviewed - Medical Decision Making - hx of noncompliance w/ dialysis, reports missed dialysis yesterday - also c/o N/V, pt w/ coffee ground emesis; has been seen by GI multiple times, hx gastroparesis; Hb stable; protonix given - potassium is normal - BMP stable compared to 11/02 when pt was diacharged - lungs clear on CXR - pt currently tolerating PO after reglan and benadryl - BP improved following hydralazine, clonidine, labetalol - spoke w/ nephrology, pt to be dialyzed in the AM - will admit to hospitalist - Differential Diagnosis pulm edema, hyperkalemia Critical Care Time: Yes Critical care time in (mins) excluding proc time.: 35 Critical care attestation.: If time is entered above; I have spent that time in minutes in the direct care of this critically ill patient, excluding procedure time. Critical Care Time: 35 min ED Disposition Clinical Impression: Gastroparesis, Hypertensive emergency, ESRD needing dialysis Disposition: DC-09 OP ADMIT IP TO THIS HOSP Is pt being admited?: Yes Condition: Stable
[2019-11-11] MEDS ORDERED: cloNIDine 0.2 MG TAB PO ONE (20:23)
[2019-11-11] MEDS ORDERED: HEPARIN 10,000 UNIT/1 ML VIAL IV PRN (22:21)
[2019-11-11] MEDS ORDERED: SODIUM CHLORIDE 0.9% 100 ML IV PRN (22:21)
[2019-11-11] MEDS ORDERED: hydrALAZINE 20 MG/1 ML INJ IV PRN (23:07)
--- NOTE | 2019-11-11 23:39 | History and Physical Report ---
History of Present Illness Date of admission: 11/11/19 23:06 History of present illness: 34-year-old man with a history of hypertension, diabetes, complicated by gastroparesis, ESRD, gastric ulcer, esophagitis comes emergency room because he has missed dialysis yesterday and now complain of shortness of breath. He stated that this morning, he started having coffee ground emesis, 4 episodes. Denies use of NSAID, abdominal pain. S/p protonix and antihypertensives in the ER, blood pressure as been uncontrolled Review of systems Constitutional: no weight loss, chills, fever Ears, eyes, nose, mouth and throat: no nasal congestion, no nasal discharge, no sinus pressure, no vision change, no red eye. Neck: No neck pain or rigidity. Cardiovascular: no chest pain, palpitations Respiratory: no cough Gastrointestinal: no hematochezia, abdominal pain Genitourinary : no frequency , no hematuria Musculoskeletal: no joint swelling or muscle ache Integumentary: no rash, no pruritis Neurological: no parathesias, no numbness, no focal weakness Endocrine: no cold or heat intolerance, no polyuria or polydipsia Hematologic/Lymphatic: no easy bruising, no easy bleeding, no gland swelling Allergic/Immunologic: no urticaria, no angioedema. PAST MEDICAL HISTORY: Hypertension, diabetes complicated by gastroparesis, ESRD, gastric ulcer PAST SURGICAL HISTORY: Appendectomy SOCIAL HISTORY: No alcohol, no drugs, tobacco FAMILY HISTORY: Hypertension Medications and Allergies Allergies Allergy/AdvReac Type Severity Reaction Status Date / Time No Known Allergies Allergy Verified 11/21/18 17:51 Home Medications Medication Instructions Recorded Confirmed Last Taken Type Lispro Insulin [HumaLOG] 5 units SUB-Q PC 10/23/19 11/03/19 10/20/19 15:30 History Insulin Glargine [Lantus VIAL] 18 units SUB-Q QAMDIAB #100 units 10/24/19 11/03/19 Unknown Rx cloNIDine-TTS PATCH [Catapres-Tts 1 patch TD Q7D PRN #7 patch 10/24/19 11/03/19 Unknown Rx 0.1MG Patch] Epoetin Wale 10,000 Unit [Procrit] 10,000 unit IV BRENDAN PRN vial 11/03/19 Unknown Rx Insulin Glargine [Lantus VIAL] 15 units SUB-Q QAMDIAB units 11/03/19 Unknown Rx Losartan [Cozaar] 100 mg PO QDAY #30 tablet 11/03/19 Unknown Rx Metoclopramide [Reglan ORAL LIQ] 10 mg PO QID 30 Days #30 11/03/19 Unknown Rx Pantoprazole [Protonix TAB] 40 mg PO DAILY #30 tablet 11/03/19 Unknown Rx amLODIPine 10 mg PO QDAY #30 tablet 11/03/19 Unknown Rx labetaloL [Labetalol 200mg TAB] 200 mg PO Q8HR #90 tablet 11/03/19 Unknown Rx Active Meds: Active Medications Heparin Sodium (Porcine) (Heparin) 5,000 unit IV BRENDAN PRN PRN Reason: hemodialysis Hydralazine HCl (Apresoline) 10 mg IV Q6H PRN PRN Reason: Hypertension Sodium Chloride (Nacl 0.9%) 100 mls @ 999 mls/hr IV BRENDAN PRN PRN Reason: Hypotension Pantoprazole Sodium (Protonix) 40 mg IV BID KESHIA Exam - Physical Exam Narrative exam: General Apperance: The patient lying in bed, breathing comfortable HEENT: Normocephalic, atraumatic. Pupils equally round and reactive to light, EOMI, no sclericterus or JVD or thyromegaly or nodule. , no carotid bruit, mucous membranes moist, no exudate or erythema Heart: S1-S2, regular is rhythm Lungs: Decrease breath sound at the bases bilaterally, breathing comfortable Abdomen: Positive bowel sounds, soft, nontender, nondistended, no organomegaly Extremities: No edema cyanosis clubbing Skin: no rash, nodule, warm and dry Neuro: cranial nerves 2-12 intact, speech is fluent, motor/sensory intact - Constitutional Vitals: Temp Pulse Resp BP Pulse Ox 98.4 F 83 17 197/112 98 11/11/19 18:21 11/11/19 22:45 11/11/19 23:00 11/11/19 23:00 11/11/19 23:00 Results - Labs CBC & Chem 7: 11/11/19 18:37 11/11/19 18:37 Labs: Abnormal lab results 11/11/19 11/11/19 11/11/19 Range/Units 18:13 18:37 18:37 RBC 3.30 L (3.65-5.03) M/mm3 Hgb 9.2 L (11.8-15.2) gm/dl Hct 26.7 L (35.5-45.6) % MCV 81 L (84-94) fl RDW 21.0 H (13.2-15.2) % Seg Neutrophils % 77.0 H (40.0-70.0) % Sodium 148 H (137-145) mmol/L Chloride 108.2 H (98-107) mmol/L Carbon Dioxide 17 L (22-30) mmol/L BUN 65 H (9-20) mg/dL Creatinine 10.4 H (0.8-1.5) mg/dL Glucose 296 H (75-100) mg/dL POC Glucose 276 H (70-105) Albumin 3.1 L (3.9-5) g/dL Lipase 87 H (13-60) units/L - Imaging and Cardiology Chest x-ray: report reviewed Abdominal x-ray: report reviewed Assessment and Plan Assessment Coffee ground emesis, history of gastric ulcer s/p protonix in the ER, continue protonix Hemoglobin sable, continue to monitor Consult GI, start antiemetics ESRD needind dialysis Renal was consulted to see the patient He will go for dialysis tonight Diabetes/gastroparesis Check fingersticks, initiate insulin sliding scale Hypertension, uncontrolled IV hydralazine for blood pressure control DVT prophylaxis
[2019-11-11] MEDS ORDERED: ACETAMINOPHEN 325 MG TAB PO PRN (23:44)
[2019-11-11] MEDS ORDERED: ONDANSETRON 4 MG/2 ML INJ IV PRN (23:44)
[2019-11-12] MEDS ORDERED: DEXTROSE 50% IN WATER (25GM) 50 ML SYRINGE IV PRN (00:10)
[2019-11-12 08:11] LABS: Basophils # (Auto) 0.1 K/mm3 (0.0-0.1); Basophils % (Auto) 1.2 % (0.0-1.8); Eosinophils # (Auto) 0.1 K/mm3 (0.0-0.4); Eosinophils % (Auto) 1.5 % (0.0-4.3); Hematocrit 23.6 % (35.5-45.6); Hemoglobin 7.6 gm/dl (11.8-15.2); Lymphocytes # (Auto) 2.8 K/mm3 (1.2-5.4); Mean Corpuscular HGB Conc 32 % (32-34); Mean Corpuscular Volume 81 fl (84-94); Monocytes # (Auto) 0.7 K/mm3 (0.0-0.8); Monocytes % (Auto) 8.4 % (0.0-7.3); Platelet Count 330 K/mm3 (140-440); Red Blood Count 2.92 M/mm3 (3.65-5.03); Red Cell Distribution Width 19.7 % (13.2-15.2)
[2019-11-12 08:29] LABS: Calcium 8.5 mg/dL (8.4-10.2)
--- NOTE | 2019-11-12 10:08 | Consultation ---
History of Present Illness - Reason for Consult end stage renal disease - History of Present Illness 34-year-old gentleman with medical history significant for diabetes and hypertension, end-stage renal disease on hemodialysis on Saturday at [facility] admitted with nausea vomiting overnight has received antiemetics reports missing dialysis he has had elevated blood pressures denies any shortness of breath denies any lower extremity edema he denies any nausea vomiting or chills. Patient seen on dialysis I saqib I saw the patient on dialysis at 10:00 AM Reports nausea vomiting is improving Medications and Allergies Allergies Allergy/AdvReac Type Severity Reaction Status Date / Time No Known Allergies Allergy Verified 11/21/18 17:51 Home Medications Medication Instructions Recorded Confirmed Last Taken Type Lispro Insulin [HumaLOG] 5 units SUB-Q PC 10/23/19 11/03/19 10/20/19 15:30 History Insulin Glargine [Lantus VIAL] 18 units SUB-Q QAMDIAB #100 units 10/24/19 11/03/19 Unknown Rx cloNIDine-TTS PATCH [Catapres-Tts 1 patch TD Q7D PRN #7 patch 10/24/19 11/03/19 Unknown Rx 0.1MG Patch] Epoetin Wale 10,000 Unit [Procrit] 10,000 unit IV BRENDAN PRN vial 11/03/19 Unknown Rx Insulin Glargine [Lantus VIAL] 15 units SUB-Q QAMDIAB units 11/03/19 Unknown Rx Losartan [Cozaar] 100 mg PO QDAY #30 tablet 11/03/19 Unknown Rx Metoclopramide [Reglan ORAL LIQ] 10 mg PO QID 30 Days #30 11/03/19 Unknown Rx Pantoprazole [Protonix TAB] 40 mg PO DAILY #30 tablet 11/03/19 Unknown Rx amLODIPine 10 mg PO QDAY #30 tablet 11/03/19 Unknown Rx labetaloL [Labetalol 200mg TAB] 200 mg PO Q8HR #90 tablet 11/03/19 Unknown Rx Active Meds: Active Medications Acetaminophen (Tylenol) 650 mg PO Q4H PRN PRN Reason: Pain MILD(1-3)/Fever >100.5/LANZA Dextrose (D50w (25gm) Syringe) 0 ml IV Q30MIN PRN; Protocol PRN Reason: Hypoglycemia Heparin Sodium (Porcine) (Heparin) 5,000 unit IV BRENDAN PRN PRN Reason: hemodialysis Hydralazine HCl (Apresoline) 10 mg IV Q6H PRN PRN Reason: Hypertension Sodium Chloride (Nacl 0.9%) 100 mls @ 999 mls/hr IV BRENDAN PRN PRN Reason: Hypotension Insulin Human Lispro (Humalog) 0 unit SUB-Q Q6HR KESHIA; Protocol Labetalol HCl (Labetalol) 20 mg IV ONCE ONE Stop: 11/12/19 10:00 Metoclopramide HCl (Reglan) 5 mg IV Q6H PRN PRN Reason: Nausea And Vomiting Ondansetron HCl (Zofran) 4 mg IV Q4H PRN PRN Reason: Nausea And Vomiting Pantoprazole Sodium (Protonix) 40 mg IV BID KESHIA Sodium Chloride (Sodium Chloride Flush Syringe 10 Ml) 10 ml IV BID KESHIA Sodium Chloride (Sodium Chloride Flush Syringe 10 Ml) 10 ml IV PRN PRN PRN Reason: LINE FLUSH Review of Systems Constitutional: no weight loss, no weight gain, no fever, no chills Ears, nose, mouth and throat: no deferred, no ear pain, no ear discharge Cardiovascular: no chest pain, no orthopnea, no palpitations Respiratory: no cough, no cough with sputum, no excessive sputum Gastrointestinal: nausea, vomiting, no abdominal pain Genitourinary Male: no dysuria, no hematuria Rectal: no pain, no incontinence Musculoskeletal: no neck stiffness, no neck pain Neurological: no head injury Psychiatric: no anxiety, no memory loss Hematologic/Lymphatic: no easy bruising Allergic/Immunologic: no urticaria Exam - Vital Signs Vital signs: Vital Signs Temp Pulse Resp BP Pulse Ox 98.4 F 114 H 19 251/138 100 11/11/19 18:21 11/11/19 18:21 11/11/19 18:21 11/11/19 18:21 11/11/19 18:21 - General Appearance General appearance: well-developed, well-nourished EENT: ATNC, PERRL Neck: Present: neck supple Respiratory: Clear to Ascultation Heart: regular, S1S2 Gastrointestinal: Present: normal, normoactive bowel sounds Integumentary: no rash Neurologic: alert and oriented x3, CN 3-12 intact Musculoskeletal: Present: deferred Psychiatric: mood/affect appropriate Results - Lab Results 11/12/19 07:20 11/12/19 07:20 Most recent lab results Calcium 8.5 mg/dL (8.4-10.2) 11/12/19 07:20 Assessment and Plan - Patient Problems (1) End-stage renal disease needing dialysis Current Visit: Yes Status: Acute Plan to address problem: End-stage renal disease Access reviewed We'll initiate dialysis (2) Hypertensive emergency Current Visit: Yes Status: Acute Plan to address problem: Hypertensive emergency We'll give labetalol 20 mg IV Optimize volume status with dialysis Continue oral medication (3) Intractable nausea and vomiting Current Visit: No Status: Acute Plan to address problem: Intractable nausea and vomiting Continue antiemetics (4) T2DM (type 2 diabetes mellitus) Current Visit: No Status: Chronic Plan to address problem: Diabetes mellitus type 2 with complications Continue medications
--- NOTE | 2019-11-12 12:14 | Gastroenterology Consultation ---
History of Present Illness - Reason for Consult Consult date: 11/12/19 coffee-ground emesis Requesting physician: MALA WELHS - History of Present Illness Patient is a 34 y/o male with PMH of ESRD on HD, HTN, DM (uncontrolled, complicated with neuropathy and likely gastroparesis), remote hx of PUD, and noncompliance who presented to ED with c/o SOB after missing dialysis. Patient with also c/o coffee ground emesis to which GI has been consulted. Patient is well known to our service with multiple prior hospitalizations for similar symptoms with undergoing multiple prior EGDs that showed severe ulcerative esophagitis but no high risk lesions. This morning patient was resting in bed receiving dialysis w/o acute distress. Reports feeling better with vomiting now improved with no episodes this am or further signs of bleeding. Requesting diet. Denies fever, CP, SOB, hematemesis, melena, diarrhea, constipation, or hematochezia. No NSAID use or hx of liver disease. Reports taking PPI at home as previously recommended. Past History Past Medical History: other (as per HPI) Past Surgical History: appendectomy, Other (Right great toe amputation, permacath) Social history: other (marijuana ) Medications and Allergies Allergies Allergy/AdvReac Type Severity Reaction Status Date / Time No Known Allergies Allergy Verified 11/21/18 17:51 Home Medications Medication Instructions Recorded Confirmed Last Taken Type Lispro Insulin [HumaLOG] 5 units SUB-Q PC 10/23/19 11/03/19 10/20/19 15:30 History Insulin Glargine [Lantus VIAL] 18 units SUB-Q QAMDIAB #100 units 10/24/19 11/03/19 Unknown Rx cloNIDine-TTS PATCH [Catapres-Tts 1 patch TD Q7D PRN #7 patch 10/24/19 11/03/19 Unknown Rx 0.1MG Patch] Epoetin Wale 10,000 Unit [Procrit] 10,000 unit IV BRENDAN PRN vial 11/03/19 Unknown Rx Insulin Glargine [Lantus VIAL] 15 units SUB-Q QAMDIAB units 11/03/19 Unknown Rx Losartan [Cozaar] 100 mg PO QDAY #30 tablet 11/03/19 Unknown Rx Metoclopramide [Reglan ORAL LIQ] 10 mg PO QID 30 Days #30 11/03/19 Unknown Rx Pantoprazole [Protonix TAB] 40 mg PO DAILY #30 tablet 11/03/19 Unknown Rx amLODIPine 10 mg PO QDAY #30 tablet 11/03/19 Unknown Rx labetaloL [Labetalol 200mg TAB] 200 mg PO Q8HR #90 tablet 11/03/19 Unknown Rx Active Meds: Active Medications Acetaminophen (Tylenol) 650 mg PO Q4H PRN PRN Reason: Pain MILD(1-3)/Fever >100.5/LANZA Dextrose (D50w (25gm) Syringe) 0 ml IV Q30MIN PRN; Protocol PRN Reason: Hypoglycemia Heparin Sodium (Porcine) (Heparin) 5,000 unit IV BRENDAN PRN PRN Reason: hemodialysis Hydralazine HCl (Apresoline) 10 mg IV Q6H PRN PRN Reason: Hypertension Last Admin: 11/12/19 11:41 Dose: 10 mg Documented by: Sodium Chloride (Nacl 0.9%) 100 mls @ 999 mls/hr IV BRENDAN PRN PRN Reason: Hypotension Insulin Human Lispro (Humalog) 0 unit SUB-Q Q6HR KESHIA; Protocol Metoclopramide HCl (Reglan) 5 mg IV Q6H PRN PRN Reason: Nausea And Vomiting Ondansetron HCl (Zofran) 4 mg IV Q4H PRN PRN Reason: Nausea And Vomiting Pantoprazole Sodium (Protonix) 40 mg IV BID KESHIA Sodium Chloride (Sodium Chloride Flush Syringe 10 Ml) 10 ml IV BID KESHIA Sodium Chloride (Sodium Chloride Flush Syringe 10 Ml) 10 ml IV PRN PRN PRN Reason: LINE FLUSH medications reviewed/updated as required Review of Systems - Review of Systems All systems: negative Gastrointestinal: coffee ground emesis Exam - Constitutional Vital Signs: Temp Pulse Resp BP Pulse Ox 98.4 F 84 10 L 198/107 99 11/12/19 08:40 11/12/19 12:00 11/12/19 08:40 11/12/19 12:00 11/12/19 00:00 General appearance: no acute distress - EENT Eyes: PERRL, EOM intact ENT: hearing intact - Respiratory Respiratory effort: normal - Cardiovascular Rhythm: regular - Gastrointestinal General gastrointestinal: Present: soft, non-tender, non-distended, normal bowel sounds - Integumentary Integumentary: Present: warm, dry - Neurologic Neurological: alert and oriented x3 - Labs CBC & Chem 7: 11/12/19 07:20 11/12/19 07:20 Lab Results: Laboratory Results - last 24 hr 11/11/19 11/11/19 11/11/19 18:13 18:37 18:37 WBC 8.4 RBC 3.30 L Hgb 9.2 L Hct 26.7 L MCV 81 L MCH 28 MCHC 34 RDW 21.0 H Plt Count 417 Lymph % (Auto) 17.9 Page % (Auto) 2.8 Eos % (Auto) 0.6 Baso % (Auto) 1.7 Lymph # 1.5 Page # 0.2 Eos # 0.0 Baso # 0.1 Seg Neutrophils % 77.0 H Seg Neutrophils # 6.5 Sodium 148 H Potassium 4.9 Chloride 108.2 H Carbon Dioxide 17 L Anion Gap 28 BUN 65 H Creatinine 10.4 H Estimated GFR 7 BUN/Creatinine Ratio 6 Glucose 296 H POC Glucose 276 H Calcium 9.0 Total Bilirubin 0.30 Direct Bilirubin < 0.2 Indirect Bilirubin 0.1 AST 19 ALT 13 Alkaline Phosphatase 93 Total Protein 6.5 Albumin 3.1 L Albumin/Globulin Ratio 0.9 Lipase 87 H 11/12/19 11/12/19 11/12/19 07:20 07:20 07:43 WBC 8.0 RBC 2.92 L Hgb 7.6 L Hct 23.6 L MCV 81 L MCH 26 L MCHC 32 RDW 19.7 H Plt Count 330 Lymph % (Auto) 35.0 Page % (Auto) 8.4 H Eos % (Auto) 1.5 Baso % (Auto) 1.2 Lymph # 2.8 Page # 0.7 Eos # 0.1 Baso # 0.1 Seg Neutrophils % 53.9 Seg Neutrophils # 4.3 Sodium 138 D Potassium 4.5 Chloride 102.1 Carbon Dioxide 17 L Anion Gap 23 BUN 67 H Creatinine 10.6 H Estimated GFR 7 BUN/Creatinine Ratio 6 Glucose 260 H POC Glucose 257 H Calcium 8.5 Total Bilirubin Direct Bilirubin Indirect Bilirubin AST ALT Alkaline Phosphatase Total Protein Albumin Albumin/Globulin Ratio Lipase Assessment and Plan 1.coffee-ground emesis -H/H 7.6/23.6 -continue to monitor H/H and transfuse as needed -multiple prior EGDs (x 2 2018) for similar symptoms showing ulcerative esophagitis, which is most likely the etiology of CGE 2.N/V-etiology multifactorial (gastroparesis due to uncontrolled DM vs functional component vs other) -clinically, patient reports feeling better with N/V now improved and no further signs of bleeding this am. Denies abd pain. No hematemesis, melena, or hematochezia. Currently HD stable. -no plan for repeat EGD unless overt bleeding develops -okay to start on trial of clear liquids-advance diet as tolerated -continue high dose PPI -avoid narcotics for this may exacerbate symptoms -consider low dose/short term Ativan if N/V persists -optimize glycemic control -continue supportive care -if no further signs of bleeding and H/H stable in am, once tolerating PO okay to d/c per GI standpoint on PPI with f/u in clinic 3.DM 4.ESRD 5.noncompliance
[2019-11-12] MEDS: PANTOPRAZOLE 40 MG INJ IV SCH ×2 (12:29→21:26)
[2019-11-12] MEDS: INSULIN LISPRO 100 UNIT/ML SUB-Q SCH ×2 (14:30→18:35)
--- NOTE | 2019-11-12 20:07 | Progress Note ---
Assessment and Plan Assessment and plan: --Hypertensive emergency; Continue current antihypertensives, when necessary medications Hemodialysis per schedule --Coffee ground emesis/GI bleeding; GI evaluation or treatment appreciated, no new episodes of bleeding No plans of EGD unless patient has severe bleeding overnight Continue Protonix --Intractable nausea vomiting; Antiemetics IV fluid supportive care --End-stage renal disease on dialysis HD per schedule, nephrology following --Type 2 diabetes mellitus; Accu-Chek sliding scale coverage ADA diet and insulin Check hemoglobin A1c if needed --DVT prophylaxis; heparin and renal dose Monitor closely and adjust the management as needed Consults and recommendations noted and appreciated History Interval history: Patient Seen and examined Patient complains of some headache Admitted with uncontrolled hypertension and coffee-ground emesis Patient also has end-stage renal disease on hemodialysis Alert awake oriented 3 Vital signs reviewed Hospitalist Physical - Constitutional Vitals: Temp Pulse Resp BP Pulse Ox 97.9 F 87 18 168/94 96 11/12/19 18:12 11/12/19 18:12 11/12/19 18:12 11/12/19 18:12 11/12/19 18:12 General appearance: Present: no acute distress, well-nourished - EENT Eyes: Present: PERRL, EOM intact - Neck Neck: Present: supple, normal ROM - Respiratory Respiratory effort: normal Respiratory: bilateral: diminished, negative: rales, rhonchi, wheezing - Cardiovascular Rhythm: regular Heart Sounds: Present: S1 & S2 - Extremities Extremities: no ischemia, No edema - Abdominal General gastrointestinal: soft, non-tender, non-distended, normal bowel sounds - Integumentary Integumentary: Present: clear, warm, erythema - Psychiatric Psychiatric: appropriate mood/affect, cooperative - Neurologic Neurologic: CNII-XII intact, moves all extremities Results - Labs CBC & Chem 7: 11/12/19 07:20 11/12/19 07:20 Labs: Laboratory Last Values WBC 8.0 K/mm3 (4.5-11.0) 11/12/19 07:20 RBC 2.92 M/mm3 (3.65-5.03) L 11/12/19 07:20 Hgb 7.6 gm/dl (11.8-15.2) L 11/12/19 07:20 Hct 23.6 % (35.5-45.6) L 01/02/20 07:20 MCV 81 fl (84-94) L 11/12/19 07:20 MCH 26 pg (28-32) L 11/12/19 07:20 MCHC 32 % (32-34) 11/12/19 07:20 RDW 19.7 % (13.2-15.2) H 11/12/19 07:20 Plt Count 330 K/mm3 (140-440) 11/12/19 07:20 Lymph % (Auto) 35.0 % (13.4-35.0) 11/12/19 07:20 [place] % (Auto) 8.4 % (0.0-7.3) H 11/12/19 07:20 Eos % (Auto) 1.5 % (0.0-4.3) 11/12/19 07:20 Baso % (Auto) 1.2 % (0.0-1.8) 11/12/19 07:20 Lymph # 2.8 K/mm3 (1.2-5.4) 11/12/19 07:20 [place] # 0.7 K/mm3 (0.0-0.8) 11/12/19 07:20 Eos # 0.1 K/mm3 (0.0-0.4) 11/12/19 07:20 Baso # 0.1 K/mm3 (0.0-0.1) 11/12/19 07:20 Seg Neutrophils % 53.9 % (40.0-70.0) 11/12/19 07:20 Seg Neutrophils # 4.3 K/mm3 (1.8-7.7) 11/12/19 07:20 Sodium 138 mmol/L (137-145) D 11/12/19 07:20 Potassium 4.5 mmol/L (3.6-5.0) 11/12/19 07:20 Chloride 102.1 mmol/L (98-107) 11/12/19 07:20 Carbon Dioxide 17 mmol/L (22-30) L 11/12/19 07:20 Anion Gap 23 mmol/L 11/12/19 07:20 BUN 67 mg/dL (9-20) H 11/12/19 07:20 Creatinine 10.6 mg/dL (0.8-1.5) H 01/02/20 07:20 Estimated GFR 7 ml/min 11/12/19 07:20 BUN/Creatinine Ratio 6 % 11/12/19 07:20 Glucose 260 mg/dL (75-100) H 11/12/19 07:20 POC Glucose 254 (70-105) H 11/12/19 16:21 Calcium 8.5 mg/dL (8.4-10.2) 11/12/19 07:20 Total Bilirubin 0.30 mg/dL (0.1-1.2) 11/11/19 18:37 Direct Bilirubin < 0.2 mg/dL (0-0.2) 11/11/19 18:37 Indirect Bilirubin 0.1 mg/dL 11/11/19 18:37 AST 19 units/L (5-40) 11/11/19 18:37 ALT 13 units/L (7-56) 11/11/19 18:37 Alkaline Phosphatase 93 units/L (35-129) 11/11/19 18:37 Total Protein 6.5 g/dL (6.3-8.2) 11/11/19 18:37 Albumin 3.1 g/dL (3.9-5) L 11/11/19 18:37 Albumin/Globulin Ratio 0.9 % 11/11/19 18:37 Lipase 87 units/L (13-60) H 11/11/19 18:37 Active Medications - Current Medications Current Medications: Generic Name Dose Route Start Last Admin Trade Name Freq PRN Reason Stop Dose Admin Acetaminophen 650 mg 11/11/19 23:44 Tylenol PO Q4H PRN Pain MILD(1-3)/Fever >100.5/LANZA Dextrose 0 ml 11/12/19 00:10 D50w (25gm) Syringe IV Q30MIN PRN Hypoglycemia Protocol Heparin Sodium (Porcine) 5,000 unit 11/11/19 22:21 Heparin IV BRENDAN PRN hemodialysis Hydralazine HCl 10 mg 11/12/19 20:06 Apresoline IV Q4H PRN Hypertension Hydralazine HCl 25 mg 11/12/19 22:00 Apresoline PO Q8HR KESHIA Sodium Chloride 100 mls @ 999 mls/hr 11/11/19 22:21 Nacl 0.9% IV BRENDAN PRN Hypotension Insulin Human Lispro 0 unit 11/12/19 06:00 11/12/19 14:30 Humalog SUB-Q 2 unit Q6HR KESHIA Administration Protocol Metoclopramide HCl 5 mg 11/11/19 23:44 Reglan IV Q6H PRN Nausea And Vomiting Ondansetron HCl 4 mg 11/11/19 23:44 Zofran IV Q4H PRN Nausea And Vomiting Pantoprazole Sodium 40 mg 11/12/19 10:00 11/12/19 12:29 Protonix IV Not Given BID KESHIA Sodium Chloride 10 ml 11/12/19 10:00 11/12/19 12:29 Sodium Chloride Flush Syringe 10 Ml IV Not Given BID KESHIA Sodium Chloride 10 ml 11/11/19 23:44 Sodium Chloride Flush Syringe 10 Ml IV PRN PRN LINE FLUSH
[2019-11-12] MEDS: hydrALAZINE 25 MG TAB PO SCH (21:26)
[2019-11-13] MEDS: hydrALAZINE 20 MG/1 ML INJ IV PRN ×3 (00:02→14:36)
[2019-11-13] MEDS: INSULIN LISPRO 100 UNIT/ML SUB-Q SCH ×5 (00:02→18:33)
[2019-11-13] MEDS: hydrALAZINE 25 MG TAB PO SCH ×3 (05:35→21:11)
[2019-11-13] MEDS: METOCLOPRAMIDE 10 MG/2 ML INJ IV PRN ×2 (08:51→14:36)
--- NOTE | 2019-11-13 09:12 | Gastroenterology Progress Note ---
Assessment and Plan 1.coffee-ground emesis -H/H 7.6/23.6 yesterday -continue to monitor H/H and transfuse as needed -multiple prior EGDs (x 2 2018) for similar symptoms showing ulcerative esophagitis, which is most likely the etiology of CGE 2.epigastric pain and N/V-etiology multifactorial (gastroparesis due to uncontrolled DM vs functional component vs other) -clinically, patient reports no further episodes of vomiting yesterday or no active signs of bleeding overnight or this am. Tolerating liquids. No hematemesis, melena, or hematochezia. -no plan for repeat EGD unless overt bleeding develops -okay to advance diet as tolerated -continue high dose PPI -avoid narcotics for this may exacerbate symptoms -consider low dose/short term Ativan if N/V persists -optimize glycemic control -continue supportive care -will order repeat H/H today, if labs stable okay to be d/c per GI standpoint on PPI with f/u in clinic 3.DM 4.ESRD 5.noncompliance Subjective Date of service: 11/13/19 Principal diagnosis: coffee-ground emesis Interval history: No acute distress. Reports no further vomiting or active signs of bleeding. Admits to upper/epigastric abd pain which is chronic and unchanged from previous. Tolerating liquids. Objective - Constitutional Vitals: Temp Pulse Resp BP Pulse Ox 98.6 F 101 H 20 211/119 100 11/13/19 08:19 11/13/19 08:52 11/13/19 08:19 11/13/19 08:52 11/13/19 08:19 General appearance: no acute distress - EENT Eyes: PERRL, EOM intact ENT: hearing intact - Respiratory Respiratory effort: normal - Cardiovascular Rhythm: other (tachycardia) - Gastrointestinal General gastrointestinal: Present: soft, tender (slight epigastric), non- distended, normal bowel sounds - Neurologic Neurological: alert and oriented x3 - Labs CBC & Chem 7: 11/12/19 07:20 11/12/19 07:20 Labs: Laboratory Results - last 24 hr 11/12/19 11/12/19 11/12/19 13:27 16:21 21:03 POC Glucose 221 H 254 H 199 H 11/13/19 11/13/19 05:50 08:28 POC Glucose 167 H 198 H
[2019-11-13] MEDS ORDERED: EPOETIN ALFA 10,000 UNIT/1 ML INJ IV PRN (09:30)
--- NOTE | 2019-11-13 09:40 | Progress Note ---
Assessment and Plan - Patient Problems (1) End-stage renal disease needing dialysis Current Visit: Yes Status: Acute Plan to address problem: End-stage renal disease Access reviewed Right IJ Shira Received HD yesterday We'll repeat HD again today. (2) Hypertensive emergency Current Visit: Yes Status: Acute Plan to address problem: Hypertensive emergency Received labetalol 20 mg IV and multiple doses of hydralazine Optimize volume status with dialysis Has resumed amlodipine and labetalol and losartan (3) Intractable nausea and vomiting Current Visit: No Status: Acute Plan to address problem: Intractable nausea and vomiting Continue antiemetics (4) T2DM (type 2 diabetes mellitus) Current Visit: No Status: Chronic Plan to address problem: Diabetes mellitus type 2 with complications Continue medications Subjective Principal diagnosis: coffee-ground emesis Interval history: 34-year-old gentleman with medical history significant for diabetes and hypertension, end-stage renal disease on hemodialysis on Saturday at [facility]3] admitted with nausea vomiting overnight has received antiemetics reports missing dialysis he has had elevated blood pressures denies any shortness of breath denies any lower extremity edema he denies any nausea vomiting or chills. Patient seen on dialysis I attest I saw the patient on dialysis at 9:30 AM Still has nausea vomiting Patient's blood pressure significantly elevated oral Antihypertensives have been adjusted Objective - Vital Signs Vital signs: Vital Signs - 12hr 11/12/19 11/12/19 11/13/19 23:07 23:48 04:22 Temperature 98.0 F 98.0 F Pulse Rate 84 89 Respiratory 18 18 Rate Blood Pressure 203/115 179/92 O2 Sat by Pulse 98 100 100 Oximetry 11/13/19 11/13/19 08:19 08:52 Temperature 98.6 F Pulse Rate 101 H 101 H Respiratory 20 Rate Blood Pressure 211/119 211/119 O2 Sat by Pulse 100 Oximetry - General Appearance General appearance: well-developed, well-nourished EENT: ATNC, PERRL Neck: no JVD Respiratory: Present: Decreased Breath Sounds Cardiology: regular, S1S2 Gastrointestinal: normal, normoactive bowel sounds Integumentary: no rash Neurologic: alert and oriented x3, CN 3-12 intact Psychiatric: mood/affect appropriate - Lab 11/12/19 07:20 11/12/19 07:20 Most recent lab results Calcium 8.5 mg/dL (8.4-10.2) 11/12/19 07:20 - Imaging Chest x-ray: image reviewed Medications & Allergies - Medications Allergies/Adverse Reactions: Allergies No Known Allergies Allergy (Verified 11/21/18 17:51) Home Medications: Home Medications Medication Instructions Recorded Confirmed Last Taken Type Lispro Insulin [HumaLOG] 5 units SUB-Q PC 10/23/19 11/03/19 10/20/19 15:30 History Insulin Glargine [Lantus VIAL] 18 units SUB-Q QAMDIAB #100 units 10/24/19 Unknown Rx cloNIDine-TTS PATCH [Catapres-Tts 1 patch TD Q7D PRN #7 patch 10/24/19 11/03/19 Unknown Rx 0.1MG Patch] Epoetin Wale 10,000 Unit [Procrit] 10,000 unit IV BRENDAN PRN vial 11/03/19 Unknown Rx Insulin Glargine [Lantus VIAL] 15 units SUB-Q QAMDIAB units 11/03/19 Unknown Rx Losartan [Cozaar] 100 mg PO QDAY #30 tablet 11/03/19 Unknown Rx Metoclopramide [Reglan ORAL LIQ] 10 mg PO QID 30 Days #30 11/03/19 Unknown Rx Pantoprazole [Protonix TAB] 40 mg PO DAILY #30 tablet 11/03/19 Unknown Rx amLODIPine 10 mg PO QDAY #30 tablet 11/03/19 Unknown Rx labetaloL [Labetalol 200mg TAB] 200 mg PO Q8HR #90 tablet 11/03/19 Unknown Rx Active Medications: Generic Name Dose Route Start Last Admin Trade Name Freq PRN Reason Stop Dose Admin Acetaminophen 650 mg 11/11/19 23:44 Tylenol PO Q4H PRN Pain MILD(1-3)/Fever >100.5/LANZA Amlodipine Besylate 10 mg 11/13/19 10:00 Amlodipine PO QDAY KESHIA Clonidine HCl 0.1 mg 11/13/19 10:00 Catapres-Tts Patch TD Q7D PRN Hypertension Dextrose 0 ml 11/12/19 00:10 D50w (25gm) Syringe IV Q30MIN PRN Hypoglycemia Protocol Epoetin Wale 10,000 unit 11/13/19 09:30 Procrit IV BRENDAN PRN hemodialysis Heparin Sodium (Porcine) 5,000 unit 11/11/19 22:21 Heparin IV BRENDAN PRN hemodialysis Hydralazine HCl 10 mg 11/12/19 20:06 11/13/19 08:52 Apresoline IV 10 mg Q4H PRN Administration Hypertension Hydralazine HCl 25 mg 11/12/19 22:00 11/13/19 05:35 Apresoline PO 25 mg Q8HR KESHIA Administration Sodium Chloride 100 mls @ 999 mls/hr 11/11/19 22:21 Nacl 0.9% IV BRENDAN PRN Hypotension Insulin Glargine 18 units 11/14/19 08:00 Lantus SUB-Q QAMDIAB [facility] Insulin Human Lispro 0 unit 11/12/19 06:00 11/13/19 06:23 Humalog SUB-Q Not Given Q6HR [facility] Protocol Labetalol HCl 400 mg 11/13/19 14:00 Labetalol PO Q8HR [facility] Losartan Potassium 100 mg 11/13/19 10:00 Cozaar PO QDAY [facility] Metoclopramide HCl 5 mg 11/11/19 23:44 11/13/19 08:51 Reglan IV 5 mg Q6H PRN Administration Nausea And Vomiting Ondansetron HCl 4 mg 11/11/19 23:44 Zofran IV Q4H PRN Nausea And Vomiting Pantoprazole Sodium 40 mg 11/12/19 10:00 11/12/19 21:26 Protonix IV 40 mg BID KESHIA Administration Sodium Chloride 10 ml 11/12/19 10:00 11/12/19 21:26 Sodium Chloride Flush Syringe 10 Ml IV 10 ml BID KESHIA Administration Sodium Chloride 10 ml 11/11/19 23:44 Sodium Chloride Flush Syringe 10 Ml IV PRN PRN LINE FLUSH
[2019-11-13] MEDS ORDERED: cloNIDine TTS 0.1 MG/24 HR PATCH TD PRN (10:00)
[2019-11-13] MEDS: LOSARTAN 50 MG TAB PO SCH (14:34)
[2019-11-13] MEDS: amLODIPine 10 MG TAB PO SCH (14:34)
[2019-11-13] MEDS: PANTOPRAZOLE 40 MG INJ IV SCH ×2 (14:34→21:11)
[2019-11-13 15:37] LABS: Hematocrit 26.9 % (35.5-45.6); Hemoglobin 8.9 gm/dl (11.8-15.2)
[2019-11-13] MEDS ORDERED: SODIUM CHLORIDE*PRIMING MACHINE ONLY FOR DIALYSIS MC ONE (18:26)
--- NOTE | 2019-11-13 20:20 | Progress Note ---
Assessment and Plan Assessment and plan: --Hypertensive emergency; Patient refused all his blood pressure medications today Blood pressures are uncontrolled Encouraged to comply with treatment plan antihypertensives, when necessary medications Hemodialysis per schedule --Coffee ground emesis/GI bleeding; resolved GI evaluation or treatment appreciated, no new episodes of bleeding No plans of EGD unless patient has severe bleeding overnight Continue Protonix --Intractable nausea vomiting; improved Antiemetics IV fluid supportive care --End-stage renal disease on dialysis HD per schedule, nephrology following --Type 2 diabetes mellitus; Accu-Chek sliding scale coverage ADA diet and insulin Check hemoglobin A1c if needed --Medical noncompliance; noncompliant with medications Diet and follow-up. Strongly advised to comply --DVT prophylaxis; heparin and renal dose Monitor closely and adjust the management as needed Consults and recommendations noted and appreciated Possible discharge home tomorrow if stable History Interval history: Patient seen and examined medical records reviewed Patient is noncompliant with medications Refusing multiple antihypertensives that are in his regimen Blood pressures are poorly controlled Patient alert awake oriented Vital signs noted Hospitalist Physical - Constitutional Vitals: Temp Pulse Resp BP Pulse Ox 99.2 F 106 H 18 151/84 97 11/13/19 16:39 11/13/19 16:39 11/13/19 16:39 11/13/19 16:39 11/13/19 16:39 General appearance: Present: no acute distress, well-nourished - EENT Eyes: Present: PERRL, EOM intact - Neck Neck: Present: supple, normal ROM - Respiratory Respiratory effort: normal Respiratory: bilateral: diminished, negative: rales, rhonchi, wheezing - Cardiovascular Rhythm: regular Heart Sounds: Present: S1 & S2 - Extremities Extremities: no ischemia, No edema - Abdominal General gastrointestinal: soft, non-tender, non-distended, normal bowel sounds - Integumentary Integumentary: Present: clear, warm - Psychiatric Psychiatric: appropriate mood/affect, cooperative - Neurologic Neurologic: moves all extremities Results - Labs CBC & Chem 7: 11/13/19 14:43 11/12/19 07:20 Labs: Laboratory Last Values WBC 8.0 K/mm3 (4.5-11.0) 11/12/19 07:20 RBC 2.92 M/mm3 (3.65-5.03) L 11/12/19 07:20 Hgb 8.9 gm/dl (11.8-15.2) L 11/13/19 14:43 Hct 26.9 % (35.5-45.6) L 11/13/19 14:43 MCV 81 fl (84-94) L 11/12/19 07:20 MCH 26 pg (28-32) L 11/12/19 07:20 MCHC 32 % (32-34) 11/12/19 07:20 RDW 19.7 % (13.2-15.2) H 11/12/19 07:20 Plt Count 330 K/mm3 (140-440) 11/12/19 07:20 Lymph % (Auto) 35.0 % (13.4-35.0) 11/12/19 07:20 Stanley % (Auto) 8.4 % (0.0-7.3) H 11/12/19 07:20 Eos % (Auto) 1.5 % (0.0-4.3) 11/12/19 07:20 Baso % (Auto) 1.2 % (0.0-1.8) 11/12/19 07:20 Lymph # 2.8 K/mm3 (1.2-5.4) 11/12/19 07:20 Stanley # 0.7 K/mm3 (0.0-0.8) 11/12/19 07:20 Eos # 0.1 K/mm3 (0.0-0.4) 11/12/19 07:20 Baso # 0.1 K/mm3 (0.0-0.1) 11/12/19 07:20 Seg Neutrophils % 53.9 % (40.0-70.0) 11/12/19 07:20 Seg Neutrophils # 4.3 K/mm3 (1.8-7.7) 11/12/19 07:20 Sodium 138 mmol/L (137-145) D 11/12/19 07:20 Potassium 4.5 mmol/L (3.6-5.0) 11/12/19 07:20 Chloride 102.1 mmol/L (98-107) 11/12/19 07:20 Carbon Dioxide 17 mmol/L (22-30) L 11/12/19 07:20 Anion Gap 23 mmol/L 11/12/19 07:20 BUN 67 mg/dL (9-20) H 11/12/19 07:20 Creatinine 10.6 mg/dL (0.8-1.5) H 11/12/19 07:20 Estimated GFR 7 ml/min 11/12/19 07:20 BUN/Creatinine Ratio 6 % 11/12/19 07:20 Glucose 260 mg/dL (75-100) H 11/12/19 07:20 POC Glucose 280 (70-105) H 11/13/19 16:47 Calcium 8.5 mg/dL (8.4-10.2) 11/12/19 07:20 Total Bilirubin 0.30 mg/dL (0.1-1.2) 11/11/19 18:37 Direct Bilirubin < 0.2 mg/dL (0-0.2) 11/11/19 18:37 Indirect Bilirubin 0.1 mg/dL 11/11/19 18:37 AST 19 units/L (5-40) 11/11/19 18:37 ALT 13 units/L (7-56) 11/11/19 18:37 Alkaline Phosphatase 93 units/L (35-129) 11/11/19 18:37 Total Protein 6.5 g/dL (6.3-8.2) 11/11/19 18:37 Albumin 3.1 g/dL (3.9-5) L 11/11/19 18:37 Albumin/Globulin Ratio 0.9 % 11/11/19 18:37 Lipase 87 units/L (13-60) H 11/11/19 18:37 Active Medications - Current Medications Current Medications: Generic Name Dose Route Start Last Admin Trade Name Freq PRN Reason Stop Dose Admin Acetaminophen 650 mg 11/11/19 23:44 Tylenol PO Q4H PRN Pain MILD(1-3)/Fever >100.5/LANZA Amlodipine Besylate 10 mg 11/13/19 10:00 11/13/19 14:34 Amlodipine PO Not Given QDAY KESHIA Clonidine HCl 0.1 mg 11/13/19 10:00 Catapres-Tts Patch TD Q7D PRN Hypertension Dextrose 0 ml 11/12/19 00:10 D50w (25gm) Syringe IV Q30MIN PRN Hypoglycemia Protocol Epoetin Wale 10,000 unit 11/13/19 09:30 Procrit IV BRENDAN PRN hemodialysis Heparin Sodium (Porcine) 5,000 unit 11/11/19 22:21 Heparin IV BRENDAN PRN hemodialysis Hydralazine HCl 10 mg 11/12/19 20:06 11/13/19 14:36 Apresoline IV 10 mg Q4H PRN Administration Hypertension Hydralazine HCl 25 mg 11/12/19 22:00 11/13/19 14:35 Apresoline PO Not Given Q8HR KESHIA Sodium Chloride 100 mls @ 999 mls/hr 11/11/19 22:21 Nacl 0.9% IV BRENDAN PRN Hypotension Insulin Glargine 18 units 11/14/19 08:00 Lantus SUB-Q QAMDIAB KESHIA Insulin Human Lispro 0 unit 11/12/19 06:00 11/13/19 18:33 Humalog SUB-Q 3 unit Q6HR KESHIA Administration Protocol Labetalol HCl 400 mg 11/13/19 14:00 11/13/19 14:35 Labetalol PO Not Given Q8HR [facility] Losartan Potassium 100 mg 11/13/19 10:00 11/13/19 14:34 Cozaar PO Not Given QDAY [facility] Metoclopramide HCl 5 mg 11/11/19 23:44 11/13/19 14:36 Reglan IV 5 mg Q6H PRN Administration Nausea And Vomiting Ondansetron HCl 4 mg 11/11/19 23:44 Zofran IV Q4H PRN Nausea And Vomiting Pantoprazole Sodium 40 mg 11/12/19 10:00 11/13/19 14:34 Protonix IV Not Given BID KESHIA Sodium Chloride 10 ml 11/12/19 10:00 11/13/19 14:34 Sodium Chloride Flush Syringe 10 Ml IV Not Given BID KESHIA Sodium Chloride 10 ml 11/11/19 23:44 Sodium Chloride Flush Syringe 10 Ml IV PRN PRN LINE FLUSH
[2019-11-14] MEDS: INSULIN LISPRO 100 UNIT/ML SUB-Q SCH ×3 (00:19→14:30)
[2019-11-14] MEDS: hydrALAZINE 25 MG TAB PO SCH ×2 (07:54→15:09)
[2019-11-14] MEDS ORDERED: INSULIN GLARGINE 100 UNITS/ML SUB-Q SCH (08:00)
[2019-11-14] MEDS: LOSARTAN 50 MG TAB PO SCH (09:18)
[2019-11-14] MEDS: PANTOPRAZOLE 40 MG INJ IV SCH (09:18)
[2019-11-14] MEDS: amLODIPine 10 MG TAB PO SCH (09:19)
[2019-11-14 11:07] VITALS: BP 152/85
--- NOTE | 2019-11-14 14:25 | Discharge Summary ---
Providers - Providers Date of Admission: 11/11/19 23:06 Date of discharge: 11/14/19 Attending physician: JIMBO DOWLING 11/11/19 22:15 Consult to Physician [CONS] Stat Comment: Consulting Provider: NYA MORENO Physician Instructions: Reason For Exam: needing dialysis 11/12/19 00:06 Consult to Physician [CONS] Routine Comment: Consulting Provider: AYO MILLS Physician Instructions: Reason For Exam: coffee ground emesi Primary care physician: [employer] FINISHER Hospitalization Condition: Stable Disposition: DC-01 TO HOME OR SELFCARE Time spent for discharge: 32 min Core Measure Documentation - Palliative Care Palliative Care/ Comfort Measures: Not Applicable - Core Measures Any of the following diagnoses?: none Exam - Constitutional Vitals: Temp Pulse Resp BP Pulse Ox 98.9 F 79 16 152/85 98 11/14/19 10:56 11/14/19 09:05 11/14/19 10:56 11/14/19 10:56 11/14/19 12:11 General appearance: Present: no acute distress, well-nourished - EENT Eyes: Present: PERRL, EOM intact Plan Activity: no restrictions Diet: diabetic, renal Additional Instructions: Hemo-dialysis per schedule Follow up with: PRIMARY CAREMD [Primary Care Provider] - 3-5 Days MARYELLEN ROMANO MD [Staff Physician] - 7 Days Prescriptions: hydrALAZINE [Apresoline TAB] 25 mg PO Q8HR #90 tablet
--- NOTE | 2019-11-14 15:33 | Progress Note ---
Assessment and Plan # End-stage renal disease needing dialysis - continue HD MWF or prn based on labs/volume, no indication today - patient would like to transfer care to dialysis center closer to his home in [place]. Advised him to discuss with FA at his current unit; will also have our office follow up # Hypertensive emergency - BP improved, continue current regimen - UF with HD as tolerated # Intractable nausea and vomiting - resolved # Anemia: hemoglobin low at 8.9, continue NNACY with HD Subjective Date of service: 11/14/19 Principal diagnosis: coffee-ground emesis Interval history: No acute events noted overnight. Ready to go home. Denies dyspnea, edema, chest pain. Good appetite. No issues with HD recently. Objective - Exam Narrative Exam: General appearance: well-developed, well-nourished EENT: ATNC, PERRL Neck: no JVD Respiratory: clear breath sounds bilaterally Cardiology: regular, S1S2 Gastrointestinal: normal, normoactive bowel sounds Integumentary: no rash Neurologic: alert and oriented x3, CN 3-12 intact Psychiatric: mood/affect appropriate - Vital Signs Vital signs: Vital Signs - 12hr 11/14/19 11/14/19 11/14/19 04:22 08:13 09:05 Temperature 97.9 F Pulse Rate 85 86 79 Respiratory 18 Rate Blood Pressure 152/87 178/101 O2 Sat by Pulse 100 100 Oximetry 11/14/19 11/14/19 10:56 12:11 Temperature 98.9 F Pulse Rate Respiratory 16 Rate Blood Pressure 152/85 O2 Sat by Pulse 98 Oximetry - Lab 11/13/19 14:43 11/12/19 07:20 Most recent lab results Calcium 8.5 mg/dL (8.4-10.2) 11/12/19 07:20 Medications & Allergies - Medications Allergies/Adverse Reactions: Allergies No Known Allergies Allergy (Verified 11/21/18 17:51) Home Medications: Home Medications Medication Instructions Recorded Confirmed Last Taken Type Lispro Insulin [HumaLOG] 5 units SUB-Q PC 10/23/19 11/03/19 10/20/19 15:30 History Insulin Glargine [Lantus VIAL] 18 units SUB-Q QAMDIAB #100 units 10/24/19 11/03/19 Unknown Rx cloNIDine-TTS PATCH [Catapres-Tts 1 patch TD Q7D PRN #7 patch 10/24/19 11/03/19 Unknown Rx 0.1MG Patch] Epoetin Wale 10,000 Unit [Procrit] 10,000 unit IV BRENDAN PRN vial 11/03/19 Unk nown Rx Losartan [Cozaar] 100 mg PO QDAY #30 tablet 11/03/19 Unknown Rx Pantoprazole [Protonix TAB] 40 mg PO DAILY #30 tablet 11/03/19 Unknown Rx amLODIPine 10 mg PO QDAY #30 tablet 11/03/19 Unknown Rx labetaloL [Labetalol 200mg TAB] 200 mg PO Q8HR #90 tablet 11/03/19 Unknown Rx hydrALAZINE [Apresoline TAB] 25 mg PO Q8HR #90 tablet 11/14/19 Unknown Rx Active Medications: Generic Name Dose Route Start Last Admin Trade Name Freq PRN Reason Stop Dose Admin Acetaminophen 650 mg 11/11/19 23:44 Tylenol PO Q4H PRN Pain MILD(1-3)/Fever >100.5/LANZA Amlodipine Besylate 10 mg 11/13/19 10:00 11/14/19 09:19 Amlodipine PO 10 mg QDAY KESHIA Administration Clonidine HCl 0.1 mg 11/13/19 10:00 Catapres-Tts Patch TD Q7D PRN Hypertension Dextrose 0 ml 11/12/19 00:10 D50w (25gm) Syringe IV Q30MIN PRN Hypoglycemia Protocol Epoetin Wale 10,000 unit 11/13/19 09:30 Procrit IV BRENDAN PRN hemodialysis Heparin Sodium (Porcine) 5,000 unit 11/11/19 22:21 Heparin IV BRENDAN PRN hemodialysis Hydralazine HCl 10 mg 11/12/19 20:06 11/13/19 14:36 Apresoline IV 10 mg Q4H PRN Administration Hypertension Hydralazine HCl 25 mg 11/12/19 22:00 11/14/19 15:09 Apresoline PO 25 mg Q8HR KESHIA Administration Sodium Chloride 100 mls @ 999 mls/hr 11/11/19 22:21 Nacl 0.9% IV BRENDAN PRN Hypotension Insulin Glargine 18 units 11/14/19 08:00 11/14/19 09:18 Lantus SUB-Q 18 units QAMDIAB KESHIA Administration Insulin Human Lispro 0 unit 11/12/19 06:00 11/14/19 14:30 Humalog SUB-Q Not Given Q6HR KESHIA Protocol Labetalol HCl 400 mg 11/13/19 14:00 11/14/19 15:10 Labetalol PO 400 mg Q8HR KESHIA Administration Losartan Potassium 100 mg 11/13/19 10:00 11/14/19 09:18 Cozaar PO 100 mg QDAY KESHIA Administration Metoclopramide HCl 5 mg 11/11/19 23:44 11/13/19 14:36 Reglan IV 5 mg Q6H PRN Administration Nausea And Vomiting Ondansetron HCl 4 mg 11/11/19 23:44 Zofran IV Q4H PRN Nausea And Vomiting Pantoprazole Sodium 40 mg 11/12/19 10:00 11/14/19 09:18 Protonix IV 40 mg BID KESHIA Administration Sodium Chloride 10 ml 11/12/19 10:00 11/14/19 09:19 Sodium Chloride Flush Syringe 10 Ml IV 10 ml BID KESHIA Administration Sodium Chloride 10 ml 11/11/19 23:44 Sodium Chloride Flush Syringe 10 Ml IV PRN PRN LINE FLUSH
== END 2019-11-14 16:34 | disposition home or self-care (01) | DRG 377 ==
LOC: ED 17:40 → 4A 23:06
PROVIDERS: ADMIT Internal Medicine; ATTEND Internal Medicine
PROC: 5A1D70Z Performance of Urinary Filtration, Intermittent, Less than 6 Hours Per Day (ICD-10-PCS; principal; 2019-11-12)
PROC: 5A1D70Z Performance of Urinary Filtration, Intermittent, Less than 6 Hours Per Day (ICD-10-PCS; 2019-11-13)
DX: K92.0 Hematemesis (principal); N18.6 End stage renal disease; I12.0 Hypertensive chronic kidney disease with stage 5 chronic kidney disease or end stage renal disease; I16.1 Hypertensive emergency; E11.43 Type 2 diabetes mellitus with diabetic autonomic (poly)neuropathy; K31.84 Gastroparesis; E11.22 Type 2 diabetes mellitus with diabetic chronic kidney disease; D64.9 Anemia, unspecified; J45.909 Unspecified asthma, uncomplicated; Z90.49 Acquired absence of other specified parts of digestive tract; Z82.49 Family history of ischemic heart disease and other diseases of the circulatory system; Z89.411 Acquired absence of right great toe; Z91.19 Patient's noncompliance with other medical treatment and regimen
CPT/HCPCS: 36415; 74022; 80048; 80076; 82962; 83690; 85014; 85018; 85025; 93005; 93010; G0378; C9113; J0360; J1200; J1815; J2765; J7030

== ENCOUNTER 2019-11-20 17:49 | Observation (INO) | payer MEDICAID ==
[2019-11-20] MEDS ORDERED: ONDANSETRON 4 MG/2 ML INJ IV ONE (19:22)
[2019-11-20] MEDS ORDERED: hydrALAZINE 20 MG/1 ML INJ IV ONE (19:22)
[2019-11-20] MEDS ORDERED: MORPHINE 4 MG/1 ML INJ IV ONE (19:22)
[2019-11-20 19:53] LABS: Partial Thromboplastin Time 52.7 Sec. (24.2-36.6)
--- NOTE | 2019-11-20 20:03 | XRay Report ---
ACUTE ABDOMINAL SERIES, 5 VIEWS INDICATION / CLINICAL INFORMATION: Abd pain. Diaphoresis, nausea and vomiting COMPARISON: 11/11/2019 FINDINGS: PermCath is stable in position. Cardiac silhouette remains mildly enlarged. There is pulmonary vascul ar congestion without overt interstitial pulmonary edema. Both lungs are grossly clear. No large pleu ral effusion or suggestion of pneumonia is noted. Views of the abdomen demonstrate a normal bowel gas pattern. No free air or suggestion of abdominal m ass. No abnormal calcifications. IMPRESSION: 1. No acute abdominal finding. 2. Mild cardiomegaly with pulmonary vascular congestion. This is unchanged from recent chest radiogra ph. Signer Name: Clarice Meraz MD Signed: 11/20/2019 7:58 PM Workstation Name: [id number]
[2019-11-20 20:05] LABS: Albumin 3.2 g/dL (3.9-5); Calcium 9.3 mg/dL (8.4-10.2)
[2019-11-20 20:10] LABS: Basophils % (Auto) 0.4 % (0.0-1.8); Eosinophils % (Auto) 0.2 % (0.0-4.3); Hematocrit 29.5 % (35.5-45.6); Lymphocytes # (Auto) 1.2 K/mm3 (1.2-5.4); Lymphocytes % (Auto) 14.9 % (13.4-35.0); Mean Corpuscular HGB Conc 33 % (32-34); Mean Corpuscular Volume 80 fl (84-94); Monocytes % (Auto) 4.5 % (0.0-7.3); Platelet Count 468 K/mm3 (140-440); Red Cell Distribution Width 19.9 % (13.2-15.2)
[2019-11-20 20:12] LABS: Hemoglobin 9.7 gm/dl (11.8-15.2); Monocytes # (Auto) 0.4 K/mm3 (0.0-0.8)
[2019-11-20] MEDS ORDERED: INSULIN REGULAR, HUMAN 100 UNITS/1 ML IV ONE (20:13)
--- NOTE | 2019-11-20 20:35 | Emergency Department Report ---
HPI - General Chief Complaint: High BP Time Seen by Provider: 11/20/19 19:12 - HPI HPI: 34-year-old male presents to the emergency department with a complaint of a 2 day history of nausea, vomiting, abdominal pain and presents with extremely elevated blood pressure. The patient says he missed his last 2 dialysis sessions. He has not taken anything for her symptoms prior to presentation. He has a past mental history of diabetes, hypertension, ulcerative esophagitis, gastroparesis, and this end-stage renal disease on hemodialysis on Saturday/Saturday/Saturday. He does not have a primary care physician. His central aisle cashier is Dr. aSntos. He has not taken his blood pressure medications today secondary to the nausea and vomiting. Patient was just recently admitted to this hospital for nausea, vomiting, abdominal pain and what appeared to be esophagitis. ED Past Medical Hx - Past Medical History Hx Hypertension: Yes Hx Heart Attack/AMI: No Hx Congestive Heart Failure: No Hx Diabetes: Yes Hx Deep Vein Thrombosis: No Hx Sickle Cell Disease: No Hx Asthma: Yes Hx COPD: No Hx HIV: No Additional medical history: Ulcerative esophagitis, Gastroparesis - Surgical History Hx Pacemaker: No Hx Internal Defibrillator: No Hx Appendectomy: Yes Additional Surgical History: right great toe removed - Social History Smoking Status: Never Smoker - Medications Home Medications: Home Medications Medication Instructions Recorded Confirmed Last Taken Type hydrALAZINE [Apresoline TAB] 25 mg PO Q8HR #90 tablet 11/14/19 11/20/19 Unknown Rx amLODIPine 10 mg PO BID 11/20/19 11/20/19 Unknown History labetaloL [Labetalol 200mg TAB] 200 mg PO BID 11/20/19 11/20/19 Unknown History ED Review of Systems ROS: Stated complaint: EMESIS Other details as noted in HPI Comment: All other systems reviewed and negative Constitutional: diaphoresis. denies: chills, fever Eyes: denies: eye pain, vision change ENT: denies: ear pain, throat pain Respiratory: denies: cough, shortness of breath Cardiovascular: denies: chest pain, palpitations Gastrointestinal: abdominal pain, nausea, vomiting Genitourinary: denies: dysuria, discharge Musculoskeletal: denies: back pain, arthralgia Skin: denies: rash, lesions Neurological: denies: headache, weakness Physical Exam - Physical Exam Vital Signs: Vital Signs 11/20/19 11/20/19 11/20/19 18:58 19:32 19:35 Temperature 99.2 F 99 F Pulse Rate 105 H 101 H Respiratory 22 15 15 Rate Blood Pressure 229/118 Blood Pressure 217/117 [Right] O2 Sat by Pulse 100 99 Oximetry 11/20/19 19:40 Temperature Pulse Rate 101 H Respiratory Rate Blood Pressure 217/117 Blood Pressure [Right] O2 Sat by Pulse Oximetry Physical Exam: GENERAL: The patient is well-developed well-nourished. HEENT: Normocephalic. Atraumatic. Patient has moist mucous membranes. EYES: Extraocular motions are intact. NECK: Supple. Trachea is midline. CHEST/LUNGS: Coarse breath sounds throughout the chest. No tachypnea or accessory muscle use. There is no respiratory distress noted. Vas-Cath in the right chest wall. HEART/CARDIOVASCULAR: Regular. There is no tachycardia. There is no murmur. ABDOMEN: Abdomen is soft. Mild generalized tenderness to palpation. No guarding. Patient has normal bowel sounds. There is no abdominal distention. SKIN: Patient is slightly diaphoretic. NEURO: The patient is awake, alert, and oriented. The patient is cooperative. The patient has no focal neurologic deficits. Normal speech. MUSCULOSKELETAL: There is no tenderness or deformity. There is no limitation range of motion. There is no evidence of acute injury. ED Course Vital Signs 11/20/19 11/20/19 11/20/19 18:58 19:32 19:35 Temperature 99.2 F 99 F Pulse Rate 105 H 101 H Respiratory 22 15 15 Rate Blood Pressure 229/118 Blood Pressure 217/117 [Right] O2 Sat by Pulse 100 99 Oximetry 11/20/19 19:40 Temperature Pulse Rate 101 H Respiratory Rate Blood Pressure 217/117 Blood Pressure [Right] O2 Sat by Pulse Oximetry - Consultations Consultation #1: 11/20/19 22:37 I spoke with the patient's central aisle cashier, Dr. Santos, who has been consulted and the patient will receive dialysis tomorrow. ED Medical Decision Making - Lab Data Result diagrams: 11/20/19 19:27 11/20/19 19:27 - Radiology Data Radiology results: image reviewed interpreted by me: Abdominal x-ray shows nonspecific nonobstructive bowel gas Chest x-ray shows some pulmonary vascular congestion and cardiomegaly. No overt pleural effusions. No pneumonia. - Medical Decision Making This patient presents with a 2 day history of nausea, vomiting, abdominal pain and he has missed his last 2 dialysis sessions. Chest x-ray shows some pulmonary vascular congestion without pleural effusions. Abdominal x-ray shows nonspecific nonobstructive bowel gas. Also the patient was just here for a full GI workup for similar symptoms and was found to have esophagitis. The patient does present with extremely elevated blood pressure. He has been given some hydralazine, labetalol, and the central aisle cashier has ordered for a Catapres patch. Patient's labs show end-stage renal disease without any hyperkalemia. Patient will receive dialysis tomorrow. He has been accepted for admission by the hospitalist, Dr. Dove. - Differential Diagnosis CHF, Gastroparesis, Esophagitis, Gastritis Critical Care Time: No Critical care attestation.: If time is entered above; I have spent that time in minutes in the direct care of this critically ill patient, excluding procedure time. ED Disposition Clinical Impression: Gastroparesis, Hypertensive emergency, End-stage renal disease needing dialysis Disposition: -09 OP ADMIT IP TO THIS HOSP Is pt being admited?: Yes Condition: Serious Instructions: Hypertension (ED) Referrals: PRIMARY CARE, [Primary Care Provider] - 3-5 Days Time of Disposition: 22:01
[2019-11-20] MEDS ORDERED: SODIUM CHLORIDE 0.9% 100 ML IV PRN (20:56)
--- NOTE | 2019-11-20 20:56 | Event Note ---
Admitted with HTN , N/V missing dialysis Needs better BP control Will order HD in am Start clonidine if needed , start Minoxidil 2.5 mg po bid
[2019-11-20] MEDS ORDERED: cloNIDine TTS 0.3 MG/24 HR PATCH TD SCH (22:00)
[2019-11-20] MEDS ORDERED: MORPHINE 2 MG/1 ML INJ IV PRN (22:35)
[2019-11-20] MEDS ORDERED: ACETAMINOPHEN 325 MG TAB PO PRN (22:35)
[2019-11-20] MEDS ORDERED: DEXTROSE 50% IN WATER (25GM) 50 ML SYRINGE IV PRN (22:35)
[2019-11-20] MEDS ORDERED: MAGNESIUM HYDROXIDE (MOM) ORAL LIQD UDC PO PRN (22:35)
[2019-11-20] MEDS: hydrALAZINE 20 MG/1 ML INJ IV PRN (23:33)
[2019-11-21] MEDS ORDERED: hydrALAZINE 20 MG/1 ML INJ IV ONE (01:33)
--- NOTE | 2019-11-21 02:25 | History and Physical Report ---
History of Present Illness Date of examination: 11/21/19 Date of admission: 11/20/19 22:01 Chief complaint: 11/21/2019 History of present illness: 34-year-old male with known history of end-stage renal disease on dialysis Saturday and Saturday, diabetes mellitus hypertension presenting to the emergency room today complaining of nausea and vomiting with associated abdominal pain. He denies any fever or chills, denies any diarrhea, denies any hematuria or dysuria denies any chest pain. He was recently admitted in the hospital with similar symptoms and patient was said to have had esophagitis and probably upper GI bleed. Blood pressure was quite elevated when patient arrived in the emergency room and he was given some clonidine. He has not been able to take his blood pressure medication today because of the nausea and vomiting. He has also missed his last 2 sessions of dialysis. Past History Past Medical History: diabetes, ESRD, hypertension, other (Asthma, ulcerative esophagitis, gastroparesis) Past Surgical History: Other (Right great toe amputation) Social history: no significant social history Family history: no significant family history Medications and Allergies Allergies Allergy/AdvReac Type Severity Reaction Status Date / Time No Known Allergies Allergy Verified 11/21/18 17:51 Home Medications Medication Instructions Recorded Confirmed Last Taken Type hydrALAZINE [Apresoline TAB] 25 mg PO Q8HR #90 tablet 11/14/19 11/20/19 Unknown Rx amLODIPine 10 mg PO BID 11/20/19 11/20/19 Unknown History labetaloL [Labetalol 200mg TAB] 200 mg PO BID 11/20/19 11/20/19 Unknown History Active Meds: Active Medications Acetaminophen (Tylenol) 650 mg PO Q4H PRN PRN Reason: Pain MILD(1-3)/Fever >100.5/LANZA Clonidine HCl (Catapres-Tts Patch) 0.3 mg TD Fr KESHIA Last Admin: 11/20/19 21:34 Dose: 0.3 mg Documented by: Dextrose (D50w (25gm) Syringe) 0 ml IV Q30MIN PRN; Protocol PRN Reason: Hypoglycemia Hydralazine HCl (Apresoline) 10 mg IV Q4H PRN PRN Reason: Blood Pressure Last Admin: 11/20/19 23:33 Dose: 10 mg Documented by: Sodium Chloride (Nacl 0.9%) 100 mls @ 999 mls/hr IV BRENDAN PRN PRN Reason: Hypotension Insulin Human Lispro (Humalog) 0 unit SUB-Q ACHS KESHIA; Protocol Magnesium Hydroxide (Milk Of Magnesia) 30 ml PO Q4H PRN PRN Reason: Constipation Morphine Sulfate (Morphine) 2 mg IV Q4H PRN PRN Reason: Pain, Moderate (4-6) Ondansetron HCl (Zofran) 4 mg IV Q8H PRN PRN Reason: Nausea And Vomiting Sodium Chloride (Sodium Chloride Flush Syringe 10 Ml) 10 ml IV BID KESHIA Sodium Chloride (Sodium Chloride Flush Syringe 10 Ml) 10 ml IV PRN PRN PRN Reason: LINE FLUSH Review of Systems Constitutional: weakness, no fever, no chills Cardiovascular: shortness of breath, no chest pain Respiratory: shortness of breath, no cough Gastrointestinal: abdominal pain, nausea, vomiting, no hematemesis, no coffee ground emesis, no BRBPR, no melena Musculoskeletal: no neck stiffness Exam - Constitutional Vitals: Temp Pulse Resp BP Pulse Ox 99 F 112 H 30 H 226/129 97 11/20/19 19:32 11/21/19 01:47 11/21/19 00:00 11/21/19 01:47 11/21/19 00:00 General appearance: Present: no acute distress, well-nourished - EENT Eyes: Present: PERRL, EOM intact ENT: hearing intact, clear oral mucosa, dentition normal - Neck Neck: Present: supple, normal ROM - Respiratory Respiratory effort: normal Respiratory: bilateral: CTA - Cardiovascular Rhythm: regular Heart Sounds: Present: S1 & S2 - Extremities Extremities: no ischemia, pulses intact, pulses symmetrical, No edema, Full ROM Peripheral Pulses: within normal limits - Abdominal General gastrointestinal: Present: soft, tender (Mild tenderness in the e pigastric region), non-distended - Integumentary Integumentary: Present: clear, warm, dry - Musculoskeletal Musculoskeletal: strength equal bilaterally - Psychiatric Psychiatric: appropriate mood/affect, intact judgment & insight, cooperative - Neurologic Neurologic: CNII-XII intact, moves all extremities Results - Labs CBC & Chem 7: 11/21/19 06:11 11/20/19 19:27 Labs: Abnormal lab results 01/10/20 01/10/20 01/10/20 Range/Units 19:27 19:27 19:27 Hgb 9.7 L (11.8-15.2) gm/dl Hct 29.5 L (35.5-45.6) % MCV 80 L (84-94) fl MCH 26 L (28-32) pg RDW 19.9 H (13.2-15.2) % Plt Count 468 H (140-440) K/mm3 Seg Neutrophils % 80.0 H (40.0-70.0) % APTT 52.7 H (24.2-36.6) Sec. BUN 34 H (9-20) mg/dL Creatinine 9.2 H (0.8-1.5) mg/dL Glucose 308 H (75-100) mg/dL POC Glucose (70-105) Albumin 3.2 L (3.9-5) g/dL 11/20/19 11/21/19 11/21/19 Range/Units 20:34 00:14 01:30 Hgb (11.8-15.2) gm/dl Hct (35.5-45.6) % MCV (84-94) fl MCH (28-32) pg RDW (13.2-15.2) % Plt Count (140-440) K/mm3 Seg Neutrophils % (40.0-70.0) % APTT (24.2-36.6) Sec. BUN (9-20) mg/dL Creatinine (0.8-1.5) mg/dL Glucose (75-100) mg/dL POC Glucose 308 H 203 H 258 H (70-105) Albumin (3.9-5) g/dL Assessment and Plan - Patient Problems (1) Intractable nausea and vomiting Current Visit: No Status: Acute Plan to address problem: Possibly secondary to gastroparesis. Patient has been placed on IV Zofran. (2) End-stage renal disease needing dialysis Current Visit: Yes Status: Acute Plan to address problem: Patient is on dialysis Saturday and Saturday. [employer] has been consulted for dialysis. (3) Hypertensive urgency Current Visit: No Status: Acute Plan to address problem: Patient has been given IV hydralazine. We will resume routine home medications once reconciled and monitor vital signs closely (4) T2DM (type 2 diabetes mellitus) Current Visit: No Status: Chronic Plan to address problem: Meanwhile patient has been placed on sliding scale insulin. We will monitor Accu-Cheks closely (5) Anemia Current Visit: No Status: Chronic Qualifiers: Other causes of anemia: chronic disease, other Plan to address problem: Probably chronic. We monitor CBC (6) DVT prophylaxis Current Visit: No Status: Acute Plan to address problem: Patient placed on subcutaneous heparin. (7) Full code status Current Visit: No Status: Acute
[2019-11-21] MEDS: ONDANSETRON 4 MG/2 ML INJ IV PRN ×3 (04:15→18:21)
[2019-11-21 06:30] LABS: Basophils # (Auto) 0.1 K/mm3 (0.0-0.1); Basophils % (Auto) 1.1 % (0.0-1.8); Eosinophils % (Auto) 0.1 % (0.0-4.3); Hematocrit 23.4 % (35.5-45.6); Hemoglobin 7.9 gm/dl (11.8-15.2); Lymphocytes # (Auto) 0.8 K/mm3 (1.2-5.4); Lymphocytes % (Auto) 12.8 % (13.4-35.0); Mean Corpuscular HGB Conc 34 % (32-34); Mean Corpuscular Volume 80 fl (84-94); Monocytes # (Auto) 0.4 K/mm3 (0.0-0.8); Monocytes % (Auto) 7.3 % (0.0-7.3); Platelet Count 366 K/mm3 (140-440); Red Blood Count 2.94 M/mm3 (3.65-5.03); Red Cell Distribution Width 19.9 % (13.2-15.2)
[2019-11-21 06:46] LABS: INR 1.1 (0.87-1.13); Partial Thromboplastin Time 38.1 Sec. (24.2-36.6)
[2019-11-21 06:52] LABS: Calcium 8.7 mg/dL (8.4-10.2)
[2019-11-21] MEDS: INSULIN LISPRO 100 UNIT/ML SUB-Q SCH ×4 (08:25→22:45)
[2019-11-21] MEDS: hydrALAZINE 20 MG/1 ML INJ IV PRN ×2 (09:21→15:40)
--- NOTE | 2019-11-21 10:57 | Consultation ---
History of Present Illness - History of Present Illness Thank you for the consultation ! My assessment and plan are as follows: End-stage renal disease: Patient will continue with hemodialysis treatment as tolerated, monitor dialysis related labs Will keep him on hemodialysis while here on Saturday and Saturday patient was also seen and supervised on hemodialysis which she seems to be tolerating well his access appears to be working well Admitted with nausea vomiting which is a recurrent issue needs to be seen by GI Hypertension and volume: Monitor for now, dialysis nurse to ultrafiltrate as tolerated goal systolic blood pressure less than 140, will follow-up on his blood pressure after dialysis Anemia and end-stage renal disease: Monitor and follow erythropoietin as required Secondary hyperparathyroidism: Monitor phosphorus and PTH periodically and adjust binders as needed Diet and nutrition: Fluid restriction 1200 mL per day, high-protein preferably 1.5 g per KG body weight All dialysis related issues have been discussed with the patient Patient does exhibit good understanding of the renal related issues Patient has been adequately counseled and educated regarding all the renal related issues and renal care plan was discussed with patient at length Patient was advised to make an appointment upon discharge, for follow-up in the office We'll continue to follow and make recommendation from renal standpoint If you have any questions please feel free to contact me at [phone] Bryan Santos M.D. [facility] (Formerly [facility]3] Nephrology, [address] [facility] [place] [address] History of presenting illness 35-year-old -Spanish male who has been admitted here with uncontrolled hypertension currently on dialysis, admitted with nausea vomiting has had similar admission in the past consultation was placed for management of end- stage renal disease, Patient did receive IV fluid in the ER due to nausea vomiting, blood pressure was markedly elevated patient stated that he was unable to keep any medication down past medical history significant for end-stage renal disease Anemia and end-stage renal disease Hypertension Nausea vomiting Diabetes Current allergies: None Home medication present medication: Reviewed Social history, family history: Reviewed Review of systems positive for intermittent nausea vomiting unable to keep food or medication down no fever or chills atient did miss his dialysis today due to nausea vomiting All other review of system negative Physical examination: General: No acute distress HEENT: Oral mucosa moist no icterus, no facial swelling Neck: Supple no thyromegaly no lymphadenopathy no JVD Chest: Clear to auscultation no crackles rales or wheezes Heart: Regular rate and rhythm S1-S2 heard no S3-S4 Abdomen: Soft mild epigastric tendernessno organomegaly no masses palpable no renal bruit no suprapubic masses no CVA tenderness Dermatology: No petechial skin rashes noted Extremity: Less than 1+ peripheral edema, dry skin Musculoskeletal: No joint effusion noted in knee and ankle area Psych: No evidence of agitation and aggression noted Neurological: Alert awake follows commands no tremors no myoclonus Back: No CVA tenderness Past History Past Medical History: diabetes, ESRD, hypertension, other (Asthma, ulcerative esophagitis, gastroparesis) Past Surgical History: Other (Right great toe amputation) Social history: no significant social history Family history: no significant family history Medications and Allergies Allergies Allergy/AdvReac Type Severity Reaction Status Date / Time No Known Allergies Allergy Verified 11/21/18 17:51 Home Medications Medication Instructions Recorded Confirmed Last Taken Type hydrALAZINE [Apresoline TAB] 25 mg PO Q8HR #90 tablet 11/14/19 11/20/19 Unknown Rx amLODIPine 10 mg PO BID 11/20/19 11/20/19 Unknown History labetaloL [Labetalol 200mg TAB] 200 mg PO BID 11/20/19 11/20/19 Unknown History Active Meds: Active Medications Acetaminophen (Tylenol) 650 mg PO Q4H PRN PRN Reason: Pain MILD(1-3)/Fever >100.5/LANZA Clonidine HCl (Catapres-Tts Patch) 0.3 mg TD Fr KESHIA Last Admin: 11/20/19 21:34 Dose: 0.3 mg Documented by: Dextrose (D50w (25gm) Syringe) 0 ml IV Q30MIN PRN; Protocol PRN Reason: Hypoglycemia Hydralazine HCl (Apresoline) 10 mg IV Q4H PRN PRN Reason: Blood Pressure Last Admin: 11/21/19 09:21 Dose: 10 mg Documented by: Sodium Chloride (Nacl 0.9%) 100 mls @ 999 mls/hr IV BRENDAN PRN PRN Reason: Hypotension Insulin Human Lispro (Humalog) 0 unit SUB-Q ACHS KESHIA; Protocol Last Admin: 11/21/19 08:25 Dose: Not Given Documented by: Magnesium Hydroxide (Milk Of Magnesia) 30 ml PO Q4H PRN PRN Reason: Constipation Morphine Sulfate (Morphine) 2 mg IV Q4H PRN PRN Reason: Pain, Moderate (4-6) Ondansetron HCl (Zofran) 4 mg IV Q8H PRN PRN Reason: Nausea And Vomiting Last Admin: 11/21/19 09:23 Dose: 4 mg Documented by: Sodium Chloride (Sodium Chloride Flush Syringe 10 Ml) 10 ml IV BID KESHIA Last Admin: 11/21/19 10:22 Dose: Not Given Documented by: Sodium Chloride (Sodium Chloride Flush Syringe 10 Ml) 10 ml IV PRN PRN PRN Reason: LINE FLUSH Exam - Vital Signs Vital signs: Vital Signs Temp Pulse Resp BP Pulse Ox 99.2 F 105 H 22 229/118 100 11/20/19 18:58 11/20/19 18:58 11/20/19 18:58 11/20/19 18:58 11/20/19 18:58 Results - Lab Results 11/21/19 06:11 11/21/19 06:10 Most recent lab results Calcium 8.7 mg/dL (8.4-10.2) 11/21/19 06:10
[2019-11-21 11:59] LABS: Hepatitis B Surface Antigen Non-Reactive (Negative); Hepatitis C Virus Antibody Non-Reactive (NonReactive)
--- NOTE | 2019-11-21 12:16 | Progress Note ---
Assessment and Plan Assessment and plan: ESRD. Continue hemodialysis per nephrology. Intractable nausea and vomiting. GI consultation. Hypertension. Continue antihypertensive medications. Anemia of CKD. Follow-up H&H and transfuse for hemoglobin less than 7. History Interval history: No new issues overnight. Patient still complains of nausea. Patient seen in hemodialysis. Hospitalist Physical - Constitutional Vitals: Temp Pulse Resp BP Pulse Ox 98.2 F 103 H 16 167/101 99 11/21/19 08:20 11/21/19 11:45 11/21/19 08:20 11/21/19 11:45 11/21/19 06:06 General appearance: Present: no acute distress, well-nourished - EENT Eyes: Present: PERRL, EOM intact ENT: hearing intact, clear oral mucosa, dentition normal - Neck Neck: Present: supple, normal ROM - Respiratory Respiratory effort: normal Respiratory: bilateral: CTA - Cardiovascular Rhythm: regular Heart Sounds: Present: S1 & S2. Absent: gallop, rub - Extremities Extremities: no ischemia, No edema, Full ROM - Abdominal General gastrointestinal: soft, non-tender, non-distended, normal bowel sounds - Integumentary Integumentary: Present: clear, warm, dry - Neurologic Neurologic: CNII-XII intact, moves all extremities Results - Labs CBC & Chem 7: 11/21/19 06:11 11/21/19 06:10 Labs: Laboratory Last Values WBC 6.2 K/mm3 (4.5-11.0) 11/21/19 06:11 RBC 2.94 M/mm3 (3.65-5.03) L 11/21/19 06:11 Hgb 7.9 gm/dl (11.8-15.2) L 11/21/19 06:11 Hct 23.4 % (35.5-45.6) L D 11/21/19 06:11 MCV 80 fl (84-94) L 11/21/19 06:11 MCH 27 pg (28-32) L 11/21/19 06:11 MCHC 34 % (32-34) 11/21/19 06:11 RDW 19.9 % (13.2-15.2) H 11/21/19 06:11 Plt Count 366 K/mm3 (140-440) 11/21/19 06:11 Lymph % (Auto) 12.8 % (13.4-35.0) L 11/21/19 06:11 [place] % (Auto) 7.3 % (0.0-7.3) 11/21/19 06:11 Eos % (Auto) 0.1 % (0.0-4.3) 11/21/19 06:11 Baso % (Auto) 1.1 % (0.0-1.8) 11/21/19 06:11 Lymph # 0.8 K/mm3 (1.2-5.4) L 11/21/19 06:11 [place] # 0.4 K/mm3 (0.0-0.8) 11/21/19 06:11 Eos # 0.0 K/mm3 (0.0-0.4) 11/21/19 06:11 Baso # 0.1 K/mm3 (0.0-0.1) 11/21/19 06:11 Seg Neutrophils % 78.7 % (40.0-70.0) H 11/21/19 06:11 Seg Neutrophils # 4.9 K/mm3 (1.8-7.7) 11/21/19 06:11 PT 14.3 Sec. (12.2-14.9) 11/21/19 06:10 INR 1.10 (0.87-1.13) 11/21/19 06:10 APTT 38.1 Sec. (24.2-36.6) H 11/21/19 06:10 Sodium 145 mmol/L (137-145) 11/21/19 06:10 Potassium 4.0 mmol/L (3.6-5.0) 11/21/19 06:10 Chloride 103.2 mmol/L (98-107) 11/21/19 06:10 Carbon Dioxide 22 mmol/L (22-30) 11/21/19 06:10 Anion Gap 24 mmol/L 11/21/19 06:10 BUN 41 mg/dL (9-20) H 11/21/19 06:10 Creatinine 10.4 mg/dL (0.8-1.5) H 11/21/19 06:10 Estimated GFR 7 ml/min 11/21/19 06:10 BUN/Creatinine Ratio 4 % 11/21/19 06:10 Glucose 295 mg/dL (75-100) H 11/21/19 06:10 POC Glucose 258 (70-105) H 11/21/19 01:30 Calcium 8.7 mg/dL (8.4-10.2) 11/21/19 06:10 Total Bilirubin 0.40 mg/dL (0.1-1.2) 11/20/19 19:27 AST 18 units/L (5-40) 11/20/19 19:27 ALT 12 units/L (7-56) 11/20/19 19:27 Alkaline Phosphatase 93 units/L (35-129) 11/20/19 19:27 Total Protein 7.0 g/dL (6.3-8.2) 11/20/19 19:27 Albumin 3.2 g/dL (3.9-5) L 11/20/19 19: Albumin/Globulin Ratio 0.8 % 11/20/19 19:27 Hepatitis A IgM Ab Non-reactive (NonReactive) 11/21/19 11:00 Hep Bs Antigen Non-reactive (Negative) 11/21/19 11:00 Hep B Core IgM Ab Non-reactive (NonReactive) 11/21/19 11:00 Hepatitis C Antibody Non-reactive (NonReactive) 11/21/19 11:00 Active Medications - Current Medications Current Medications: Generic Name Dose Route Start Last Admin Trade Name Freq PRN Reason Stop Dose Admin Acetaminophen 650 mg 11/20/19 22:35 Tylenol PO Q4H PRN Pain MILD(1-3)/Fever >100.5/LANZA Clonidine HCl 0.3 mg 11/20/19 22:00 11/20/19 21:34 Catapres-Tts Patch TD 0.3 mg Fr KESHIA Administration Dextrose 0 ml 11/20/19 22:35 D50w (25gm) Syringe IV Q30MIN PRN Hypoglycemia Protocol Hydralazine HCl 10 mg 11/20/19 22:41 11/21/19 09:21 Apresoline IV 10 mg Q4H PRN Administration Blood Pressure Sodium Chloride 100 mls @ 999 mls/hr 11/20/19 20:56 Nacl 0.9% IV BRENDAN PRN Hypotension Insulin Human Lispro 0 unit 11/21/19 07:30 11/21/19 08:25 Humalog SUB-Q Not Given ACHS KESHIA Protocol Magnesium Hydroxide 30 ml 11/20/19 22:35 Milk Of Magnesia PO Q4H PRN Constipation Morphine Sulfate 2 mg 11/20/19 22:35 Morphine IV Q4H PRN Pain, Moderate (4-6) Ondansetron HCl 4 mg 11/20/19 22:35 11/21/19 09:23 Zofran IV 4 mg Q8H PRN Administration Nausea And Vomiting Sodium Chloride 10 ml 11/21/19 10:00 11/21/19 10:22 Sodium Chloride Flush Syringe 10 Ml IV Not Given BID KESHIA Sodium Chloride 10 ml 11/20/19 22:35 Sodium Chloride Flush Syringe 10 Ml IV PRN PRN LINE FLUSH
--- NOTE | 2019-11-21 15:19 | Consultation ---
History of Present Illness - Reason for Consult Consult date: 11/21/19 N/V, coffee ground emesis Requesting physician: CLEMENT CHEN - History of Present Illness Dariel Rowland is a 34-year-old man with poorly controlled diabetes on dialysis for end-stage renal disease who is well known to us. He has recurrent problems with nausea vomiting and coffee-ground emesis. He was last seen in consultation for this on November 12, and prior to that on 10/22/2019, and on 08/21/2019. His current attack is similar to his prior ones. On questioning, he believes it may be precipitated by smoking marijuana. He states he is feeling better at present. He denies melena. He denies chest pain or lightheadedness or dizziness. He last had an endoscopy for this at [facility] in the fall. Results are not available. Past History Past Medical History: diabetes, ESRD, hypertension, other (Asthma, ulcerative esophagitis, gastroparesis) Past Surgical History: Other (Right great toe amputation) Social history: no significant social history Family history: no significant family history Medications and Allergies Allergies Allergy/AdvReac Type Severity Reaction Status Date / Time No Known Allergies Allergy Verified 11/21/18 17:51 Home Medications Medication Instructions Recorded Confirmed Last Taken Type hydrALAZINE [Apresoline TAB] 25 mg PO Q8HR #90 tablet 11/14/19 11/20/19 Unknown Rx amLODIPine 10 mg PO BID 11/20/19 11/20/19 Unknown History labetaloL [Labetalol 200mg TAB] 200 mg PO BID 11/20/19 11/20/19 Unknown History Active Meds: Active Medications Acetaminophen (Tylenol) 650 mg PO Q4H PRN PRN Reason: Pain MILD(1-3)/Fever >100.5/LANZA Clonidine HCl (Catapres-Tts Patch) 0.3 mg TD Fr KESHIA Last Admin: 11/20/19 21:34 Dose: 0.3 mg Documented by: Dextrose (D50w (25gm) Syringe) 0 ml IV Q30MIN PRN; Protocol PRN Reason: Hypoglycemia Hydralazine HCl (Apresoline) 10 mg IV Q4H PRN PRN Reason: Blood Pressure Last Admin: 11/21/19 09:21 Dose: 10 mg Documented by: Sodium Chloride (Nacl 0.9%) 100 mls @ 999 mls/hr IV BRENDAN PRN PRN Reason: Hypotension Insulin Human Lispro (Humalog) 0 unit SUB-Q ACHS KESHIA; Protocol Last Admin: 11/21/19 08:25 Dose: Not Given Documented by: Magnesium Hydroxide (Milk Of Magnesia) 30 ml PO Q4H PRN PRN Reason: Constipation Morphine Sulfate (Morphine) 2 mg IV Q4H PRN PRN Reason: Pain, Moderate (4-6) Ondansetron HCl (Zofran) 4 mg IV Q8H PRN PRN Reason: Nausea And Vomiting Last Admin: 11/21/19 09:23 Dose: 4 mg Documented by: Sodium Chloride (Sodium Chloride Flush Syringe 10 Ml) 10 ml IV BID KESHIA Last Admin: 11/21/19 10:22 Dose: Not Given Documented by: Sodium Chloride (Sodium Chloride Flush Syringe 10 Ml) 10 ml IV PRN PRN PRN Reason: LINE FLUSH Review of Systems All systems: negative (as noted in HPI) Exam - Constitutional Vitals: Temp Pulse Resp BP Pulse Ox 98.2 F 105 H 16 198/111 99 11/21/19 13:15 11/21/19 13:15 11/21/19 13:15 11/21/19 13:15 11/21/19 06:06 General appearance: Present: no acute distress - EENT Eyes: Present: PERRL, EOM intact ENT: hearing intact - Neck Neck: Present: supple - Respiratory Respiratory effort: normal Respiratory: bilateral: CTA - Cardiovascular Rhythm: regular Heart Sounds: Present: S1 & S2 - Abdominal General gastrointestinal: Present: soft, tender (mild epigastric) Results - Labs CBC & Chem 7: 11/21/19 06:11 11/21/19 06:10 Labs: Abnormal lab results 11/20/19 11/20/19 11/20/19 Range/Units 19:27 19:27 19:27 RBC (3.65-5.03) M/mm3 Hgb 9.7 L (11.8-15.2) gm/dl Hct 29.5 L (35.5-45.6) % MCV 80 L (84-94) fl MCH 26 L (28-32) pg RDW 19.9 H (13.2-15.2) % Plt Count 468 H (140-440) K/mm3 Lymph % (Auto) (13.4-35.0) % Lymph # (1.2-5.4) K/mm3 Seg Neutrophils % 80.0 H (40.0-70.0) % APTT 52.7 H (24.2-36.6) Sec. BUN 34 H (9-20) mg/dL Creatinine 9.2 H (0.8-1.5) mg/dL Glucose 308 H (75-100) mg/dL POC Glucose (70-105) Albumin 3.2 L (3.9-5) g/dL 11/20/19 11/21/19 11/21/19 Range/Units 20:34 00:14 01:30 RBC (3.65-5.03) M/mm3 Hgb (11.8-15.2) gm/dl Hct (35.5-45.6) % MCV (84-94) fl MCH (28-32) pg RDW (13.2-15.2) % Plt Count (140-440) K/mm3 Lymph % (Auto) (13.4-35.0) % Lymph # (1.2-5.4) K/mm3 Seg Neutrophils % (40.0-70.0) % APTT (24.2-36.6) Sec. BUN (9-20) mg/dL Creatinine (0.8-1.5) mg/dL Glucose (75-100) mg/dL POC Glucose 308 H 203 H 258 H (70-105) Albumin (3.9-5) g/dL 11/21/19 11/21/19 11/21/19 Range/Units 06:10 06:10 06:11 RBC 2.94 L (3.65-5.03) M/mm3 Hgb 7.9 L (11.8-15.2) gm/dl Hct 23.4 L D (35.5-45.6) % MCV 80 L (84-94) fl MCH 27 L (28-32) pg RDW 19.9 H (13.2-15.2) % Plt Count (140-440) K/mm3 Lymph % (Auto) 12.8 L (13.4-35.0) % Lymph # 0.8 L (1.2-5.4) K/mm3 Seg Neutrophils % 78.7 H (40.0-70.0) % APTT 38.1 H (24.2-36.6) Sec. BUN 41 H (9-20) mg/dL Creatinine 10.4 H (0.8-1.5) mg/dL Glucose 295 H (75-100) mg/dL POC Glucose (70-105) Albumin (3.9-5) g/dL Assessment and Plan 1. N/V - multi-factorial. Due to diabetic gastroparesis, electrolyte abnormalities with dialysis, and marijuana use. This is his usual attack, and he is improving with supportive care. We discussed the need to discontinue marijuana usage in order to prevent this problem from recurring, as well as improved control of his diabetes. - Give PPI empirically - Low-dose Ativan if necessary if symptoms persist - Monitor H&H and transfuse as needed - No plans for endoscopy unless symptoms persist Will sign off. Please call as needed.
[2019-11-21] MEDS: PANTOPRAZOLE 40 MG INJ IV SCH ×2 (16:04→21:03)
[2019-11-21] MEDS ORDERED: SODIUM CHLORIDE*PRIMING MACHINE ONLY FOR DIALYSIS MC ONE (22:28)
[2019-11-22] MEDS: hydrALAZINE 20 MG/1 ML INJ IV PRN (00:04)
[2019-11-22] MEDS: ONDANSETRON 4 MG/2 ML INJ IV PRN (05:29)
[2019-11-22] MEDS: INSULIN LISPRO 100 UNIT/ML SUB-Q SCH (08:30)
[2019-11-22 09:09] LABS: Basophils # (Auto) 0.1 K/mm3 (0.0-0.1); Basophils % (Auto) 1.1 % (0.0-1.8); Eosinophils # (Auto) 0.1 K/mm3 (0.0-0.4); Eosinophils % (Auto) 1.8 % (0.0-4.3); Hematocrit 23.2 % (35.5-45.6); Hemoglobin 7.6 gm/dl (11.8-15.2); Lymphocytes % (Auto) 27.4 % (13.4-35.0); Mean Corpuscular HGB Conc 33 % (32-34); Mean Corpuscular Volume 81 fl (84-94); Monocytes # (Auto) 0.8 K/mm3 (0.0-0.8); Monocytes % (Auto) 10.9 % (0.0-7.3); Platelet Count 347 K/mm3 (140-440); Red Blood Count 2.87 M/mm3 (3.65-5.03); Red Cell Distribution Width 19.3 % (13.2-15.2)
[2019-11-22 09:17] LABS: Calcium 8.3 mg/dL (8.4-10.2)
--- NOTE | 2019-11-22 10:29 | Progress Note ---
Objective - Vital Signs Vital signs: Vital Signs - 12hr 11/21/19 11/22/19 11/22/19 23:50 00:04 06:40 Temperature 99.1 F 99.0 F Pulse Rate 105 H 105 H 79 Respiratory 24 18 Rate Blood Pressure 157/100 157/70 175/97 O2 Sat by Pulse 98 100 Oximetry 11/22/19 10:09 Temperature Pulse Rate 74 Respiratory Rate Blood Pressure 144/87 O2 Sat by Pulse 100 Oximetry - Lab 11/22/19 08:10 11/22/19 08:10 Most recent lab results Calcium 8.3 mg/dL (8.4-10.2) L 11/22/19 08:10 Medications & Allergies - Medications Allergies/Adverse Reactions: Allergies No Known Allergies Allergy (Verified 11/21/18 17:51) Home Medications: Home Medications Medication Instructions Recorded Confirmed Last Taken Type hydrALAZINE [Apresoline TAB] 25 mg PO Q8HR #90 tablet 11/14/19 11/20/19 Unknown Rx amLODIPine 10 mg PO BID 11/20/19 11/20/19 Unknown History labetaloL [Labetalol 200mg TAB] 200 mg PO BID 11/20/19 11/20/19 Unknown History Active Medications: Generic Name Dose Route Start Last Admin Trade Name Freq PRN Reason Stop Dose Admin Acetaminophen 650 mg 11/20/19 22:35 Tylenol PO Q4H PRN Pain MILD(1-3)/Fever >100.5/LANZA Clonidine HCl 0.3 mg 11/20/19 22:00 11/20/19 21:34 Catapres-Tts Patch TD 0.3 mg Fr KESHIA Administration Dextrose 0 ml 11/20/19 22:35 D50w (25gm) Syringe IV Q30MIN PRN Hypoglycemia Protocol Hydralazine HCl 10 mg 11/20/19 22:41 11/22/19 00:04 Apresoline IV 10 mg Q4H PRN Administration Blood Pressure Sodium Chloride 100 mls @ 999 mls/hr 11/20/19 20:56 Nacl 0.9% IV BRENDAN PRN Hypotension Insulin Human Lispro 0 unit 11/21/19 07:30 11/22/19 08:30 Humalog SUB-Q 4 unit ACHS KESHIA Administration Protocol Magnesium Hydroxide 30 ml 11/20/19 22:35 Milk Of Magnesia PO Q4H PRN Constipation Morphine Sulfate 2 mg 11/20/19 22:35 11/22/19 00:04 Morphine IV 2 mg Q4H PRN Administration Pain, Moderate (4-6) Ondansetron HCl 4 mg 11/20/19 22:35 11/22/19 05:29 Zofran IV 4 mg Q8H PRN Administration Nausea And Vomiting Pantoprazole Sodium 40 mg 11/21/19 16:00 11/21/19 21:03 Protonix IV 40 mg BID KESHIA Administration Sodium Chloride 10 ml 11/21/19 10:00 11/21/19 21:03 Sodium Chloride Flush Syringe 10 Ml IV 10 ml BID KESHIA Administration Sodium Chloride 10 ml 11/20/19 22:35 Sodium Chloride Flush Syringe 10 Ml IV PRN PRN LINE FLUSH
[2019-11-22 12:17] VITALS: BP 138/87
--- NOTE | 2019-11-22 12:32 | Discharge Summary ---
Providers - Providers Date of Admission: 11/20/19 22:01 Date of discharge: 11/22/19 Attending physician: CLEMENT CHEN 11/20/19 20:56 Consult to Physician [CONS] Routine Comment: Dr. Nelson spoke with Dr. Santos @ 2052 Consulting Provider: NICK SANTOS Physician Instructions: Reason For Exam: ESRD, Dialysis 11/21/19 12:16 Consult to Physician [CONS] Routine Comment: Consulting Provider: CARLYN GONZALES Physician Instructions: Reason For Exam: intractable N/V Primary care physician: [facility] Hospitalization Reason for admission: Intractable n/v Condition: Serious Hospital course: 34-year-old male with known history of end-stage renal disease on dialysis Saturday and Saturday, diabetes mellitus hypertension presenting to the emergency room today complaining of nausea and vomiting with associated abdominal pain. The patient has recurrent problems with nausea vomiting and coffee-ground emesis. He was last seen in consultation by GI for similar episode on November 12, and prior to that on 10/22/2019, and on 08/21/2019. Etiology of his intractable nausea and vomiting is likely secondary to marijuana +/-gastroparesis from diabetes. Patient was again seen by GI in consultation per nephrology request who recommended patient be discharged home with proton pump inhibitors. No plans for intervention/endoscopy. Patient had diet advanced which he tolerated. Patient was also seen by nephrology in consultation and received hemodialysis for which he missed prior to admission. Patient is felt to receive maximal hospital benefit and will be discharged home. Dedicated discharge time 32 minutes. Disposition: TO HOME OR SELFCARE Time spent for discharge: 32 - Discharge Diagnoses (1) End-stage renal disease needing dialysis Status: Acute (2) Gastroparesis Status: Chronic (3) Abdominal pain Status: Acute Qualifiers: Abdominal location: epigastric Qualified Code(s): R10.13 - Epigastric pain (4) Intractable nausea and vomiting Status: Acute (5) Ulcerative esophagitis Status: Acute Core Measure Documentation - Palliative Care Palliative Care/ Comfort Measures: Not Applicable - Core Measures Any of the following diagnoses?: none Exam - Constitutional Vitals: Temp Pulse Resp BP Pulse Ox 98.7 F 78 22 138/87 98 11/22/19 11:07 11/22/19 11:07 11/22/19 11:07 11/22/19 11:07 11/22/19 11:07 General appearance: Present: no acute distress, well-nourished - EENT Eyes: Present: PERRL ENT: hearing intact, clear oral mucosa - Neck Neck: Present: supple, normal ROM - Respiratory Respiratory effort: normal Respiratory: bilateral: CTA - Cardiovascular Heart Sounds: Present: S1 & S2. Absent: rub, click - Extremities Extremities: pulses symmetrical, No edema Peripheral Pulses: within normal limits - Abdominal General gastrointestinal: Present: soft, non-tender, non-distended, normal bowel sounds Male genitourinary: Present: normal - Integumentary Integumentary: Present: clear, warm, dry - Musculoskeletal Musculoskeletal: gait normal, strength equal bilaterally - Psychiatric Psychiatric: appropriate mood/affect, intact judgment & insight - Neurologic Neurologic: CNII-XII intact, moves all extremities Plan Activity: advance as tolerated Weight Bearing Status: Weight Bear as Tolerated Follow up with: PRIMARY CAREMD [Primary Care Provider] - 3-5 Days NICK SANTOS MD [Staff Physician] - 7 Days CARLYN GONZALES MD [Staff Physician] - 7 Days Prescriptions: Pantoprazole [Protonix] 40 mg PO QDAY #30 tablet
== END 2019-11-22 15:50 | disposition home or self-care (01) ==
LOC: ED 17:49 → 3A 22:01
PROVIDERS: ADMIT Internal Medicine Geriatric Medicine; ATTEND Hospitalist
DX: K31.84 Gastroparesis (principal); K22.10 Ulcer of esophagus without bleeding; I12.0 Hypertensive chronic kidney disease with stage 5 chronic kidney disease or end stage renal disease; E11.22 Type 2 diabetes mellitus with diabetic chronic kidney disease; N18.6 End stage renal disease; D63.1 Anemia in chronic kidney disease; I16.0 Hypertensive urgency; I16.1 Hypertensive emergency; J45.909 Unspecified asthma, uncomplicated; Z79.899 Other long term (current) drug therapy; Z99.2 Dependence on renal dialysis
CPT/HCPCS: 36415; 74022; 80048; 80053; 80074; 82962; 85025; 85610; 85730; 96372; 96374; 96375; 96376; 99284; C9113; G0257; G0378; J0360; J2270; J2405; J7030; J1815

== ENCOUNTER 2019-12-06 15:22 | Observation (INO) | payer MEDICAID ==
[2019-12-06] MEDS ORDERED: ONDANSETRON 4 MG/2 ML INJ IV ONE (15:35)
[2019-12-06] MEDS ORDERED: PANTOPRAZOLE 40 MG INJ IV STA (15:35)
[2019-12-06] MEDS ORDERED: LORazepam 2 MG/ML VIAL IV ONE (15:37)
--- NOTE | 2019-12-06 15:49 | Emergency Department Report ---
ED GI Bleed HPI - General Chief complaint: Nausea/Vomiting/Diarrhea Stated complaint: VOMITING BLOOD Time Seen by Provider: 12/06/19 15:35 Source: patient, EMS, old records reviewed Mode of arrival: Stretcher Limitations: No Limitations - History of Present Illness Initial comments: Mr. Eddy is a 34 yo male with hx of ESRD on HD MWF, ulcerative esophagitis, IDDM,anemia, HTN gastroparesis who presents with vomiting coffee ground emesis. He also had mild lower abdominal pain, constant, no radiation. Missed dialysis on Saturday. Arrived per EMS. Has BG > 400. SBG 230 mm Hg. complaint: coffee ground emesis -: Gradual, days(s) (1), This morning Location: LLQ, RLQ Radiation: none Severity scale (0 -10): 5 Quality: dull Consistency: constant Improves with: eating Worsens with: none Context: history of GI bleed (history of recurrent hematemesis due to ulcerative esophagitis) Associated Symptoms: abdominal pain, nausea, vomiting - Related Data Home Medications Medication Instructions Recorded Confirmed Last Taken amLODIPine 10 mg PO BID 11/20/19 11/29/19 Unknown Lispro Insulin [HumaLOG] 0 unit SQ TID 11/30/19 11/30/19 Unknown Previous Rx's Medication Instructions Recorded Last Taken Type Metoclopramide [Reglan] 10 mg PO TID #30 tab 12/02/19 Unknown Rx Ondansetron [Zofran Odt] 4 mg PO Q8HR #10 tab.rapdis 12/02/19 Unknown Rx Pantoprazole [Protonix TAB] 40 mg PO QDAY 30 Days #30 tablet 12/02/19 Unknown Rx hydrALAZINE [Apresoline TAB] 25 mg PO Q8HR 30 Days #90 tablet 12/02/19 Unknown Rx labetaloL [Labetalol 200mg TAB] 200 mg PO BID #60 12/02/19 Unknown Rx Allergies Allergy/AdvReac Type Severity Reaction Status Date / Time No Known Allergies Allergy Verified 11/21/18 17:51 ED Review of Systems ROS: Stated complaint: VOMITING BLOOD Other details as noted in HPI Comment: All other systems reviewed and negative Constitutional: malaise. denies: fever Respiratory: denies: cough, shortness of breath Cardiovascular: denies: chest pain Gastrointestinal: abdominal pain, nausea, vomiting, hematemesis ED Past Medical Hx - Past Medical History Previous Medical History?: Yes Hx Hypertension: Yes Hx Heart Attack/AMI: No Hx Congestive Heart Failure: No Hx Diabetes: Yes Hx Deep Vein Thrombosis: No Hx Sickle Cell Disease: No Hx Asthma: Yes Hx COPD: No Hx HIV: No Additional medical history: Ulcerative esophagitis, Gastroparesis HD MWF - Surgical History Hx Pacemaker: No Hx Internal Defibrillator: No Hx Appendectomy: Yes Additional Surgical History: right great toe removed, Right chest PERMA-CATH - Social History Smoking Status: Unknown if ever smoked Substance Use Type: None - Medications Home Medications: Home Medications Medication Instructions Recorded Confirmed Last Taken Type amLODIPine 10 mg PO BID 11/20/19 11/29/19 Unknown History Lispro Insulin [HumaLOG] 0 unit SQ TID 11/30/19 11/30/19 Unknown History Metoclopramide [Reglan] 10 mg PO TID #30 tab 12/02/19 Unknown Rx Ondansetron [Zofran Odt] 4 mg PO Q8HR #10 tab.rapdis 12/02/19 Unknown Rx Pantoprazole [Protonix TAB] 40 mg PO QDAY 30 Days #30 tablet 12/02/19 Unknown Rx hydrALAZINE [Apresoline TAB] 25 mg PO Q8HR 30 Days #90 tablet 12/02/19 Unknown Rx labetaloL [Labetalol 200mg TAB] 200 mg PO BID #60 12/02/19 Unknown Rx ED Physical Exam - General Limitations: No Limitations General appearance: alert, in no apparent distress, other (appears clammy sweating actively spitting up coffee ground emesis) - Head Head exam: Present: atraumatic, normocephalic - Eye Eye exam: Present: normal appearance - ENT ENT exam: Present: mucous membranes moist - Neck Neck exam: Present: normal inspection, full ROM - Respiratory Respiratory exam: Present: normal lung sounds bilaterally. Absent: respiratory distress, wheezes, rales, rhonchi - Cardiovascular Cardiovascular Exam: Present: normal rhythm, tachycardia, normal heart sounds, other (right sided Vas-Cath insertion site without erythema or drainage). Absent: systolic murmur, diastolic murmur, rubs, gallop - GI/Abdominal GI/Abdominal exam: Present: soft, normal bowel sounds. Absent: distended, tenderness, guarding, rebound - Rectal Rectal exam: Present: deferred - Extremities Exam Extremities exam: Present: normal inspection - Neurological Exam Neurological exam: Present: alert, oriented X3 - Psychiatric Psychiatric exam: Present: normal affect, normal mood - Skin Skin exam: Present: warm, dry, intact, normal color. Absent: rash ED Course Vital Signs 12/06/19 12/06/19 12/06/19 15:30 16:07 16:52 Temperature 98.6 F Pulse Rate 117 H 102 H Respiratory 16 24 21 Rate Blood Pressure 228/126 Blood Pressure 203/119 [Left] O2 Sat by Pulse 100 92 Oximetry 12/06/19 17:21 Temperature Pulse Rate 105 H Respiratory Rate Blood Pressure 202/120 Blood Pressure [Left] O2 Sat by Pulse Oximetry - EJ/Peripheral Line Neck L Time Out Performed: Yes Indications: nurses unable to establis Skin Cleansed in Sterile Fashion: Yes Size: 20 Dressing Placed: Tegaderm Patient Tolerated Procedure: well Additional Comments: Procedure note: peripheral IV placement Indication: Lack of peripheral venous access Using clean technique, I was able to place a 20-gauge Angiocath into the left external jugular vein with the patient's verbal consent. Neck R Time Out Performed: Yes Indications: nurses unable to establis Skin Cleansed in Sterile Fashion: Yes Size: 20 Dressing Placed: Tegaderm Patient Tolerated Procedure: well ED Medical Decision Making - Lab Data Result diagrams: 12/06/19 15:51 12/06/19 15:51 Laboratory Results - last 24 hr 12/06/19 12/06/19 12/06/19 15:46 15:51 15:51 WBC 14.9 H RBC 3.38 L Hgb 9.2 L Hct 27.7 L MCV 82 L MCH 27 L MCHC 33 RDW 19.6 H Plt Count 414 PT 13.7 INR 1.04 APTT 33.2 Sodium Potassium Chloride Carbon Dioxide Anion Gap BUN Creatinine Estimated GFR BUN/Creatinine Ratio Glucose POC Glucose 391 H Calcium Total Bilirubin AST ALT Alkaline Phosphatase Total Protein Albumin Albumin/Globulin Ratio Lipase Blood Type Antibody Screen 12/06/19 12/06/19 12/06/19 15:51 15:51 15:51 WBC RBC Hgb Hct MCV MCH MCHC RDW Plt Count PT INR APTT Sodium 134 L Potassium 4.3 Chloride 89.1 L Carbon Dioxide 20 L Anion Gap 29 BUN 52 H Creatinine 13.6 H Estimated GFR 5 BUN/Creatinine Ratio 4 Glucose 377 H POC Glucose Calcium 8.9 Total Bilirubin 0.40 AST 15 ALT 10 Alkaline Phosphatase 94 Total Protein 6.4 Albumin 3.0 L Albumin/Globulin Ratio 0.9 Lipase 82 H Blood Type O POSITIVE Antibody Screen Negative - EKG Data 12/06/19 15:49 EKG obtained 1541 Sinus tachycardia rate 115 bpm normal axis normal intervals no ST elevation no T signs of ischemia positive LVH normal morphology and amplitude of T waves no signs of hyperkalemia - Radiology Data Radiology results: report reviewed Chest 1 view: Right internal jugular dialysis catheter without significant acute findings otherwise - Medical Decision Making 1. Mr. Rowland presents with recurrent hematemesis. He has history of ulcerative esophagitis. Treated with IV Protonix. Hemoglobin at baseline when compared to previous lab values. Will benefit from serial H&H's. 2. Intractable nausea vomiting exacerbating hematemesis history of gastroparesis. Symptom improves with IV anti-medic and IV lorazepam 3. Hypertensive urgency address with IV labetalol 4. End-stage renal disease: No indication for emergent dialysis at this time. W Admitted to the hospitalist service for further treatment and evaluation. Critical care attestation.: If time is entered above; I have spent that time in minutes in the direct care of this critically ill patient, excluding procedure time. ED Disposition Clinical Impression: Intractable nausea and vomiting, Hematemesis, Gastroparesis, End-stage renal disease needing dialysis Disposition: OP ADMIT IP TO THIS HOSP Is pt being admited?: Yes Does the pt Need Aspirin: No Condition: Stable
[2019-12-06 16:11] LABS: Hematocrit 27.7 % (35.5-45.6); Hemoglobin 9.2 gm/dl (11.8-15.2); Mean Corpuscular HGB Conc 33 % (32-34); Mean Corpuscular Volume 82 fl (84-94); Platelet Count 414 K/mm3 (140-440); Red Blood Count 3.38 M/mm3 (3.65-5.03); Red Cell Distribution Width 19.6 % (13.2-15.2)
[2019-12-06 16:20] LABS: INR 1.04 (0.87-1.13); Partial Thromboplastin Time 33.2 Sec. (24.2-36.6)
[2019-12-06 16:32] LABS: Calcium 8.9 mg/dL (8.4-10.2)
--- NOTE | 2019-12-06 17:01 | XRay Report ---
CHEST 1 VIEW 12/06/2019 3:36 PM INDICATION / CLINICAL INFORMATION: GI Bleed. COMPARISON: Chest x-ray 11/02/2019 FINDINGS: SUPPORT DEVICES: Right internal jugular dialysis catheter again has tip overlying SVC. HEART / MEDIASTINUM: No significant abnormality. LUNGS / PLEURA: No significant pulmonary or pleural abnormality. No pneumothorax. ADDITIONAL FINDINGS: No significant additional findings. IMPRESSION: 1. No acute findings. Signer Name: Shreyas Powell MD Signed: 12/06/2019 4:57 PM Workstation Name: [id number]
--- NOTE | 2019-12-06 17:03 | History and Physical Report ---
History of Present Illness Chief complaint: I have been vomiting of blood again History of present illness: 34-year-old male with hypertension, diabetes, complicated by gastroparesis, ESRD on HD (M, W, F), gastric ulcer, ulcerative esophagitis presents to ED for evaluation. Patient states that he has experienced abdominal discomfort and coffee-ground emesis admits to nausea vomiting, several episodes, + coffe ground emesis over the past 1 day. EMS was notified this morning and upon arrival the patient was found to be in distress and subsequently transported to [facility] for further care and evaluation. Patient was seen and evaluated in the emergency department. Lab and imaging studies reviewed. Patient was found to have end- stage renal disease, systemic inflammatory response syndrome, acidosis, malignant hypertension, and uncontrolled diabetes mellitus. Patient oropharynx did not reveal any dried blood or any evidence of recent hematemesis. Patient also reports that he last underwent dialysis 4 days ago. Patient admitted to telemetry due to increased risk of decompensation. Nephrology consulted for urgent dialysis, GI team consulted for GI bleed. Prior admission on 11/20/2019 reviewed. All listed medication reconciled at time of admission. Patient denies fever, chills, chest pain, palpitations, productive cough, recent ill contacts, ingestion of food/water from new or different sources, skin rash, dark stools, bright red blood per rectum, trauma, syncope, falls. Past History Past Medical History: diabetes, ESRD, other (See HPI) Past Surgical History: appendectomy, Other (Right chest permacath) Social history: single. denies: smoking, alcohol abuse, prescription drug abuse Family history: diabetes, hypertension Medications and Allergies Allergies Allergy/AdvReac Type Severity Reaction Status Date / Time No Known Allergies Allergy Verified 11/21/18 17:51 Home Medications Medication Instructions Recorded Confirmed Last Taken Type amLODIPine 10 mg PO BID 11/20/19 12/06/19 Unknown History Lispro Insulin [HumaLOG] 0 unit SQ TID 11/30/19 12/06/19 Unknown History Metoclopramide [Reglan] 10 mg PO TID #30 tab 12/02/19 12/06/19 Unknown Rx Ondansetron [Zofran Odt] 4 mg PO Q8HR #10 tab.rapdis 12/02/19 12/06/19 Unknown Rx Pantoprazole [Protonix TAB] 40 mg PO QDAY 30 Days #30 tablet 12/02/19 12/06/19 Unknown Rx hydrALAZINE [Apresoline TAB] 25 mg PO Q8HR 30 Days #90 tablet 12/02/19 12/06/19 Unknown Rx labetaloL [Labetalol 200mg TAB] 200 mg PO BID #60 12/02/19 12/06/19 Unknown Rx Review of Systems Constitutional: other (Coughing up blood), no weight loss, no weight gain, no fever, no chills Ears, nose, mouth and throat: no ear pain, no ear discharge, no nose pain Cardiovascular: no chest pain, no orthopnea, no palpitations, no rapid/irregular heart beat Respiratory: no hemoptysis, no shortness of breath Gastrointestinal: no abdominal pain, no diarrhea, no constipation, no change in bowel habits, no hematemesis Genitourinary Male: no dysuria, no flank pain, no discharge, no urinary hesitancy, no nocturia, no incontinence Rectal: no pain, no incontinence, no bleeding Musculoskeletal: no neck stiffness, no neck pain, no arm numbness/tingling, no low back pain, no leg numbness/tingling Integumentary: no rash, no pruritis, no redness, no sores, no wounds, no jaundice, no boils Neurological: no head injury, no transient paralysis, no weakness, no numbness, no tingling, no seizures, no tremors, no lack of coordination Psychiatric: no anxiety, no change in sleep habits, no sleep disturbances, no insomnia, no change in appetite, no suicidal ideation Endocrine: no cold intolerance, no heat intolerance, no excessive thirst, no polydipsia, no flushing, no weight change Hematologic/Lymphatic: no easy bruising, no easy bleeding, no lymphedema Allergic/Immunologic: no allergic rhinitis, no wheezing Exam - Constitutional Vitals: Temp Pulse Resp BP Pulse Ox 98.6 F 117 H 24 228/126 100 12/06/19 15:30 12/06/19 15:30 12/06/19 16:07 12/06/19 15:30 12/06/19 15:30 General appearance: Present: mild distress - EENT Eyes: Present: PERRL ENT: hearing intact, clear oral mucosa - Neck Neck: Present: supple, normal ROM - Respiratory Respiratory effort: normal Respiratory: bilateral: CTA - Cardiovascular Heart Sounds: Present: S1 & S2. Absent: rub, click - Extremities Extremities: pulses symmetrical, No edema Peripheral Pulses: within normal limits - Abdominal General gastrointestinal: Present: soft, non-tender, non-distended, normal bowel sounds Male genitourinary: Present: normal - Integumentary Integumentary: Present: clear, warm, dry - Musculoskeletal Musculoskeletal: gait normal, strength equal bilaterally - Psychiatric Psychiatric: appropriate mood/affect, intact judgment & insight - Neurologic Neurologic: CNII-XII intact, moves all extremities Results - Labs CBC & Chem 7: 12/06/19 15:51 12/06/19 15:51 Labs: Abnormal lab results 12/06/19 12/06/19 12/06/19 Range/Units 15:46 15:51 15:51 WBC 14.9 H (4.5-11.0) K/mm3 RBC 3.38 L (3.65-5.03) M/mm3 Hgb 9.2 L (11.8-15.2) gm/dl Hct 27.7 L (35.5-45.6) % MCV 82 L (84-94) fl MCH 27 L (28-32) pg RDW 19.6 H (13.2-15.2) % Sodium 134 L (137-145) mmol/L Chloride 89.1 L (98-107) mmol/L Carbon Dioxide 20 L (22-30) mmol/L BUN 52 H (9-20) mg/dL Creatinine 13.6 H (0.8-1.5) mg/dL Glucose 377 H (75-100) mg/dL POC Glucose 391 H (70-105) Albumin 3.0 L (3.9-5) g/dL Lipase (13-60) units/L 12/06/19 Range/Units 15:51 WBC (4.5-11.0) K/mm3 RBC (3.65-5.03) M/mm3 Hgb (11.8-15.2) gm/dl Hct (35.5-45.6) % MCV (84-94) fl MCH (28-32) pg RDW (13.2-15.2) % Sodium (137-145) mmol/L Chloride (98-107) mmol/L Carbon Dioxide (22-30) mmol/L BUN (9-20) mg/dL Creatinine (0.8-1.5) mg/dL Glucose (75-100) mg/dL POC Glucose (70-105) Albumin (3.9-5) g/dL Lipase 82 H (13-60) units/L Assessment and Plan - Patient Problems (1) SIRS (systemic inflammatory response syndrome) Current Visit: Yes Status: Acute Plan to address problem: CBC, CMP, chest x-ray, urinalysis, empiric IV antibiotic therapy, monitor urine output every shift repeat CBC in a.m. (2) End stage renal disease Current Visit: Yes Status: Acute Plan to address problem: Nephrology consulted in ED. Strict I's/O, daily weight, monitor urine output every shift, avoid nephrotoxic agents. Dialysis as per renal team (3) Metabolic acidosis Current Visit: Yes Status: Acute Plan to address problem: IV fluid resuscitation therapy, dialysis as per renal team, BMP, repeat BMP in a.m. (4) Malignant hypertension Current Visit: Yes Status: Acute Plan to address problem: Monitor blood pressure every shift, resume prehospital antihypertensive medication. IV hydralazine as needed for systolic blood blood pressure greater than 160 (5) Diabetes Current Visit: Yes Status: Acute Plan to address problem: Sliding scale insulin therapy, consistent carbohydrate diet, Accu-Chek, hypoglycemia protocol. (6) Ulcerative esophagitis Current Visit: Yes Status: Acute Plan to address problem: Supportive care, GI consulted, Carafate p.o. x1. Supportive care. No evidence of hematemesis or upper GI bleed at time of my evaluation. Continue medical monitoring, supportive care, PPI therapy. (7) GI bleed Current Visit: No Status: Inactive Plan to address problem: IV PPI therapy, supportive care, p.o. Carafate therapy, GI team consulted. No evidence of GI bleed at time of my evaluation. (8) DVT prophylaxis Current Visit: Yes Status: Acute Plan to address problem: SCD to bilateral lower extremities while in bed, patient ambulatory.
[2019-12-06] MEDS ORDERED: hydrALAZINE 20 MG/1 ML INJ IV PRN (17:06)
[2019-12-06] MEDS ORDERED: DEXTROSE 50% IN WATER (25GM) 50 ML SYRINGE IV PRN (17:08)
[2019-12-06] MEDS ORDERED: SUCRALFATE 1 GM/10 ML ORAL LIQD PO ONE (17:11)
[2019-12-06] MEDS ORDERED: INSULIN REGULAR, HUMAN 100 UNITS/1 ML ONE (18:10)
[2019-12-06] MEDS: INSULIN LISPRO 100 UNIT/ML SUB-Q SCH (18:14)
[2019-12-06] MEDS ORDERED: INSULIN LISPRO 100 UNIT/ML SUB-Q ONE (18:15)
[2019-12-06 19:08] LABS: Eosinophils % (Manual) 0 % (0.0-4.3); Helmet Cells Few; Poikilocytosis 1+; Schistocytes Few; Total Cells Counted 100
[2019-12-06 19:09] LABS: Anisocytosis 1+; Platelet Estimate Consistent w Auto
[2019-12-06] MEDS: METOCLOPRAMIDE 10 MG TAB PO SCH (20:04)
[2019-12-06] MEDS: PANTOPRAZOLE 40 MG INJ IV SCH (21:05)
[2019-12-06] MEDS: amLODIPine 10 MG TAB PO SCH (21:06)
[2019-12-06] MEDS: hydrALAZINE 25 MG TAB PO SCH (21:06)
[2019-12-06] MEDS: ONDANSETRON 4 MG ODT TAB PO SCH (21:07)
[2019-12-07] MEDS: INSULIN LISPRO 100 UNIT/ML SUB-Q SCH ×4 (01:49→17:00)
[2019-12-07] MEDS: ONDANSETRON 4 MG ODT TAB PO SCH ×3 (06:09→19:54)
[2019-12-07] MEDS: hydrALAZINE 25 MG TAB PO SCH ×2 (06:09→14:15)
[2019-12-07] MEDS: METOCLOPRAMIDE 10 MG TAB PO SCH ×2 (08:00→14:15)
[2019-12-07] MEDS: amLODIPine 10 MG TAB PO SCH (10:00)
[2019-12-07] MEDS: PANTOPRAZOLE 40 MG INJ IV SCH (10:00)
--- NOTE | 2019-12-07 10:19 | Gastroenterology Consultation ---
History of Present Illness - Reason for Consult Consult date: 12/07/19 [facility] Requesting physician: JANNIE TERAN - History of Present Illness Patient is a 34 y/o male with PMH of ESRD on HD, HTN, DM (uncontrolled, complicated with neuropathy and likely gastroparesis), remote hx of PUD, and noncompliance who presented to ED with c/o vomiting coffee-ground emesis with a ssociated mild abdominal pain after missing dialysis. Patient is well known to our service with multiple prior hospitalizations for similar symptoms with last consult just last week on 11/30/19. He has undergone multiple prior EGDs that showed severe ulcerative esophagits but no high risk lesions (last endoscopy at [facility] this past fall). His current attack is similar to his prior ones. This morning patient was resting in bed w/o acute distress. States he is feeling better at persent with last episode of vomiting overnight. Denies hematemesis, melena, or hematochezia. Hx of substance abuse with marijuana but denies recent use. Past History Past Medical History: other (See HPI) Past Surgical History: appendectomy, Other (Right chest permacath) Social history: single. denies: smoking, alcohol abuse, prescription drug abuse Family history: diabetes, hypertension Medications and Allergies Allergies Allergy/AdvReac Type Severity Reaction Status Date / Time No Known Allergies Allergy Verified 11/21/18 17:51 Home Medications Medication Instructions Recorded Confirmed Last Taken Type amLODIPine 10 mg PO BID 11/20/19 12/06/19 Unknown History Lispro Insulin [HumaLOG] 0 unit SQ TID 11/30/19 12/06/19 Unknown History Metoclopramide [Reglan] 10 mg PO TID #30 tab 12/02/19 12/06/19 Unknown Rx Ondansetron [Zofran Odt] 4 mg PO Q8HR #10 tab.rapdis 12/02/19 12/06/19 Unknown Rx Pantoprazole [Protonix TAB] 40 mg PO QDAY 30 Days #30 tablet 12/02/19 12/06/19 Unknown Rx hydrALAZINE [Apresoline TAB] 25 mg PO Q8HR 30 Days #90 tablet 12/02/19 12/06/19 Unknown Rx labetaloL [Labetalol 200mg TAB] 200 mg PO BID #60 12/02/19 12/06/19 Unknown Rx Active Meds: Active Medications Amlodipine Besylate (Amlodipine) 10 mg PO BID [facility] Last Admin: 12/07/19 10:00 Dose: 10 mg Documented by: Dextrose (D50w (25gm) Syringe) 50 ml IV Q30MIN PRN; Protocol PRN Reason: Hypoglycemia Hydralazine HCl (Apresoline) 10 mg IV Q4HR PRN PRN Reason: Hypertension Last Admin: 12/06/19 17:21 Dose: 10 mg Documented by: Hydralazine HCl (Apresoline) 25 mg PO Q8HR [facility] Last Admin: 12/07/19 06:09 Dose: 25 mg Documented by: Levofloxacin/Dextrose (Levaquin 250mg/50ml) 250 mg in 50 mls @ 50 mls/hr IV Q48H [facility] Insulin Human Lispro (Humalog) 0 unit SUB-Q Q6HR [facility]; Protocol Last Admin: 12/07/19 06:42 Dose: 3 unit Documented by: Labetalol HCl (Labetalol) 200 mg PO BID [facility] Last Admin: 12/07/19 09:59 Dose: 200 mg Documented by: Metoclopramide HCl (Reglan) 10 mg PO TID [facility] Last Admin: 12/07/19 08:00 Dose: 10 mg Documented by: Ondansetron HCl (Zofran Odt) 4 mg PO Q8HR [facility] Last Admin: 12/07/19 06:09 Dose: 4 mg Documented by: Pantoprazole Sodium (Protonix) 40 mg IV BID [facility] Last Admin: 12/07/19 10:00 Dose: 40 mg Documented by: medications reviewed/updated as required Review of Systems - Review of Systems All systems: negative Gastrointestinal: coffee ground emesis Exam - Constitutional Vital Signs: Temp Pulse Resp BP Pulse Ox 99.1 F 102 H 18 158/92 100 12/07/19 07:39 12/07/19 10:00 12/07/19 07:39 12/07/19 10:00 12/07/19 07:39 General appearance: no acute distress - EENT Eyes: PERRL, EOM intact ENT: hearing intact - Respiratory Respiratory effort: normal Respiratory: bilateral: CTA - Cardiovascular Rhythm: other (tachycardia) - Gastrointestinal General gastrointestinal: Present: soft, non-tender, non-distended, normal bowel sounds - Neurologic Neurological: alert and oriented x3 - Labs CBC & Chem 7: 12/06/19 15:51 12/06/19 15:51 Lab Results: Laboratory Results - last 24 hr 12/06/19 12/06/19 12/06/19 15:46 15:51 15:51 WBC 14.9 H RBC 3.38 L Hgb 9.2 L Hct 27.7 L MCV 82 L MCH 27 L MCHC 33 RDW 19.6 H Plt Count 414 Add Manual Diff Complete Total Counted 100 Seg Neuts % (Manual) 86.0 H Band Neutrophils % 0 Lymphocytes % (Manual) 7.0 L Reactive Lymphs % (Man) 0 Monocytes % (Manual) 6.0 Eosinophils % (Manual) 0 Basophils % (Manual) 1.0 Metamyelocytes % 0 Myelocytes % 0 Promyelocytes % 0 Blast Cells % 0 Nucleated RBC % Not Reportable Seg Neutrophils # Man 12.8 H Band Neutrophils # 0.0 Lymphocytes # (Manual) 1.0 L Abs React Lymphs (Man) 0.0 Monocytes # (Manual) 0.9 H Eosinophils # (Manual) 0.0 Basophils # (Manual) 0.1 Metamyelocytes # 0.0 Myelocytes # 0.0 Promyelocytes # 0.0 Blast Cells # 0.0 WBC Morphology Not Reportable Hypersegmented Neuts Not Reportable Hyposegmented Neuts Not Reportable Hypogranular Neuts Not Reportable Smudge Cells Not Reportable Toxic Granulation Not Reportable Toxic Vacuolation Not Reportable Dohle Bodies Not Reportable Pelger-Huet Anomaly Not Reportable Julio Cesar Rods Not Reportable Platelet Estimate Consistent w auto Clumped Platelets Not Reportable Plt Clumps, EDTA Not Reportable Large Platelets Not Reportable Giant Platelets Not Reportable Platelet Satelliting Not Reportable Plt Morphology Comment Not Reportable RBC Morphology Not Reportable Dimorphic RBCs Not Reportable Polychromasia Not Reportable Hypochromasia Not Reportable Poikilocytosis 1+ Anisocytosis 1+ Microcytosis Not Reportable Macrocytosis Not Reportable Spherocytes Not Reportable Pappenheimer Bodies Not Reportable Sickle Cells Not Reportable Target Cells Not Reportable Tear Drop Cells Not Reportable Ovalocytes Not Reportable Helmet Cells Few Pak-Osage Bodies Not Reportable [place] Rings Not Reportable Jewell Cells Not Reportable Bite Cells Not Reportable Crenated Cell Not Reportable Elliptocytes Not Reportable Acanthocytes (Spur) Few Rouleaux Not Reportable Hemoglobin C Crystals Not Reportable Schistocytes Few Malaria parasites Not Reportable David Bodies Not Reportable Hem Pathologist Commnt No PT 13.7 INR 1.04 APTT 33.2 Sodium Potassium Chloride Carbon Dioxide Anion Gap BUN Creatinine Estimated GFR BUN/Creatinine Ratio Glucose POC Glucose 391 H Calcium Total Bilirubin AST ALT Alkaline Phosphatase Total Protein Albumin Albumin/Globulin Ratio Lipase Blood Type Antibody Screen 12/06/19 12/06/19 12/06/19 15:51 15:51 15:51 WBC RBC Hgb Hct MCV MCH MCHC RDW Plt Count Add Manual Diff Total Counted Seg Neuts % (Manual) Band Neutrophils % Lymphocytes % (Manual) Reactive Lymphs % (Man) Monocytes % (Manual) Eosinophils % (Manual) Basophils % (Manual) Metamyelocytes % Myelocytes % Promyelocytes % Blast Cells % Nucleated RBC % Seg Neutrophils # Man Band Neutrophils # Lymphocytes # (Manual) Abs React Lymphs (Man) Monocytes # (Manual) Eosinophils # (Manual) Basophils # (Manual) Metamyelocytes # Myelocytes # Promyelocytes # Blast Cells # WBC Morphology Hypersegmented Neuts Hyposegmented Neuts Hypogranular Neuts Smudge Cells Toxic Granulation Toxic Vacuolation Dohle Bodies Pelger-Huet Anomaly Julio Cesar Rods Platelet Estimate Clumped Platelets Plt Clumps, EDTA Large Platelets Giant Platelets Platelet Satelliting Plt Morphology Comment RBC Morphology Dimorphic RBCs Polychromasia Hypochromasia Poikilocytosis Anisocytosis Microcytosis Macrocytosis Spherocytes Pappenheimer Bodies Sickle Cells Target Cells Tear Drop Cells Ovalocytes Helmet Cells Pak-[place] Bodies [place] Rings Jewell Cells Bite Cells Crenated Cell Elliptocytes Acanthocytes (Spur) Rouleaux Hemoglobin C Crystals Schistocytes Malaria parasites David Bodies Hem Pathologist Commnt PT INR APTT Sodium 134 L Potassium 4.3 Chloride 89.1 L Carbon Dioxide 20 L Anion Gap 29 BUN 52 H Creatinine 13.6 H Estimated GFR 5 BUN/Creatinine Ratio 4 Glucose 377 H POC Glucose Calcium 8.9 Total Bilirubin 0.40 AST 15 ALT 10 Alkaline Phosphatase 94 Total Protein 6.4 Albumin 3.0 L Albumin/Globulin Ratio 0.9 Lipase 82 H Blood Type O POSITIVE Antibody Screen Negative 12/06/19 12/07/19 12/07/19 18:16 00:38 06:19 WBC RBC Hgb Hct MCV MCH MCHC RDW Plt Count Add Manual Diff Total Counted Seg Neuts % (Manual) Band Neutrophils % Lymphocytes % (Manual) Reactive Lymphs % (Man) Monocytes % (Manual) Eosinophils % (Manual) Basophils % (Manual) Metamyelocytes % Myelocytes % Promyelocytes % Blast Cells % Nucleated RBC % Seg Neutrophils # Man Band Neutrophils # Lymphocytes # (Manual) Abs React Lymphs (Man) Monocytes # (Manual) Eosinophils # (Manual) Basophils # (Manual) Metamyelocytes # Myelocytes # Promyelocytes # Blast Cells # WBC Morphology Hypersegmented Neuts Hyposegmented Neuts Hypogranular Neuts Smudge Cells Toxic Granulation Toxic Vacuolation Dohle Bodies Pelger-Huet Anomaly Julio Cesar Rods Platelet Estimate Clumped Platelets Plt Clumps, EDTA Large Platelets Giant Platelets Platelet Satelliting Plt Morphology Comment RBC Morphology Dimorphic RBCs Polychromasia Hypochromasia Poikilocytosis Anisocytosis Microcytosis Macrocytosis Spherocytes Pappenheimer Bodies Sickle Cells Target Cells Tear Drop Cells Ovalocytes Helmet Cells Pak-Osage Bodies [place] Rings Olive Cells Bite Cells Crenated Cell Elliptocytes Acanthocytes (Spur) Rouleaux Hemoglobin C Crystals Schistocytes Malaria parasites David Bodies Hem Pathologist Commnt PT INR APTT Sodium Potassium Chloride Carbon Dioxide Anion Gap BUN Creatinine Estimated GFR BUN/Creatinine Ratio Glucose POC Glucose 404 H 171 H 199 H Calcium Total Bilirubin AST ALT Alkaline Phosphatase Total Protein Albumin Albumin/Globulin Ratio Lipase Blood Type Antibody Screen 12/07/19 08:40 WBC RBC Hgb Hct MCV MCH MCHC RDW Plt Count Add Manual Diff Total Counted Seg Neuts % (Manual) Band Neutrophils % Lymphocytes % (Manual) Reactive Lymphs % (Man) Monocytes % (Manual) Eosinophils % (Manual) Basophils % (Manual) Metamyelocytes % Myelocytes % Promyelocytes % Blast Cells % Nucleated RBC % Seg Neutrophils # Man Band Neutrophils # Lymphocytes # (Manual) Abs React Lymphs (Man) Monocytes # (Manual) Eosinophils # (Manual) Basophils # (Manual) Metamyelocytes # Myelocytes # Promyelocytes # Blast Cells # WBC Morphology Hypersegmented Neuts Hyposegmented Neuts Hypogranular Neuts Smudge Cells Toxic Granulation Toxic Vacuolation Dohle Bodies Pelger-Huet Anomaly Julio Cesar Rods Platelet Estimate Clumped Platelets Plt Clumps, EDTA Large Platelets Giant Platelets Platelet Satelliting Plt Morphology Comment RBC Morphology Dimorphic RBCs Polychromasia Hypochromasia Poikilocytosis Anisocytosis Microcytosis Macrocytosis Spherocytes Pappenheimer Bodies Sickle Cells Target Cells Tear Drop Cells Ovalocytes Helmet Cells Pak-Osage Bodies Philadelphia Rings Olive Cells Bite Cells Crenated Cell Elliptocytes Acanthocytes (Spur) Rouleaux Hemoglobin C Crystals Schistocytes Malaria parasites David Bodies Hem Pathologist Commnt PT INR APTT Sodium Potassium Chloride Carbon Dioxide Anion Gap BUN Creatinine Estimated GFR BUN/Creatinine Ratio Glucose POC Glucose 143 H Calcium Total Bilirubin AST ALT Alkaline Phosphatase Total Protein Albumin Albumin/Globulin Ratio Lipase Blood Type Antibody Screen Assessment and Plan 1.recurrent N/V/coffee-ground emesis 2.epigastric pain-chronic 3.anemia-chronic -LFTs WNL -last abd CT 11/02/19 reviewed -H/H 9.2/27.7-improved compared to prior labs; monitor/transfuse as needed -no active signs of bleeding this am; no hematemesis, melena, or hematochezia -s/p multiple prior EGDs (x 2 2018) for similar symptoms showing ulcerative esophagitis -etiology- multifactorial (gastroparesis, electrolyte abnormalities with dialysis, possible functional component, and marijuana use) -clinically, patient reports feeling better with symptoms now improving. -no plan for repeat EGD at this time -advance diet as tolerated -chronic PPI -avoid narcotics for this may exacerbate symptoms -consider low dose/short term Ativan if N/V persists -optimize glycemic control -continue substance (marijuana) cessation encouraged -continue supportive care -no further GI recommendations at this time, Will sign off. Please call back if needed 4.DM 5.ESRD 6.noncompliance
[2019-12-07] MEDS ORDERED: LORazepam 2 MG/ML VIAL IV ONE (10:28)
--- NOTE | 2019-12-07 11:07 | Consultation ---
History of Present Illness - Reason for Consult Consult date: 12/07/19 end stage renal disease, accelerated hypertension Requesting physician: JANNIE TERAN - History of Present Illness Mr. Eddy is a 34 yo male with hx of ESRD on HD MWF, ulcerative esophagitis, IDDM,anemia, HTN gastroparesis who presents with vomiting coffee ground emesis. He also had mild lower abdominal pain, constant, no radiation. Missed dialysis on Saturday. Arrived per EMS. Has BG > 400. SBG 230 mm Hg. ROS: Stated complaint: VOMITING BLOOD Other details as noted in HPI Comment: All other systems reviewed and negative Constitutional: malaise. denies: fever Respiratory: denies: cough, shortness of breath Cardiovascular: denies: chest pain Gastrointestinal: abdominal pain, nausea, vomiting, hematemesis - Past Medical History Previous Medical History?: Yes Hx Hypertension: Yes Hx Heart Attack/AMI: No Hx Congestive Heart Failure: No Hx Diabetes: Yes Hx Deep Vein Thrombosis: No Hx Sickle Cell Disease: No Hx Asthma: Yes Hx COPD: No Hx HIV: No Additional medical history: Ulcerative esophagitis, Gastroparesis HD MWF - Surgical History Hx Pacemaker: No Hx Internal Defibrillator: No Hx Appendectomy: Yes Additional Surgical History: right great toe removed, Right chest PERMA-CATH - Social History Smoking Status: Unknown if ever smoked Substance Use Type: None Past History Past Medical History: other (See HPI) Past Surgical History: appendectomy, Other (Right chest permacath) Social history: single. denies: smoking, alcohol abuse, prescription drug abuse Family history: diabetes, hypertension Medications and Allergies Allergies Allergy/AdvReac Type Severity Reaction Status Date / Time No Known Allergies Allergy Verified 11/21/18 17:51 Home Medications Medication Instructions Recorded Confirmed Last Taken Type amLODIPine 10 mg PO BID 11/20/19 12/06/19 Unknown History Lispro Insulin [HumaLOG] 0 unit SQ TID 11/30/19 12/06/19 Unknown History Metoclopramide [Reglan] 10 mg PO TID #30 tab 12/02/19 12/06/19 Unknown Rx Ondansetron [Zofran Odt] 4 mg PO Q8HR #10 tab.rapdis 12/02/19 12/06/19 Unknown Rx Pantoprazole [Protonix TAB] 40 mg PO QDAY 30 Days #30 tablet 12/02/19 12/06/19 Unknown Rx hydrALAZINE [Apresoline TAB] 25 mg PO Q8HR 30 Days #90 tablet 12/02/19 12/06/19 Unknown Rx labetaloL [Labetalol 200mg TAB] 200 mg PO BID #60 12/02/19 12/06/19 Unknown Rx Active Meds: Active Medications Amlodipine Besylate (Amlodipine) 10 mg PO BID [facility] Last Admin: 12/07/19 10:00 Dose: 10 mg Documented by: Dextrose (D50w (25gm) Syringe) 50 ml IV Q30MIN PRN; Protocol PRN Reason: Hypoglycemia Hydralazine HCl (Apresoline) 10 mg IV Q4HR PRN PRN Reason: Hypertension Last Admin: 12/06/19 17:21 Dose: 10 mg Documented by: Hydralazine HCl (Apresoline) 25 mg PO Q8HR [facility] Last Admin: 12/07/19 06:09 Dose: 25 mg Documented by: Levofloxacin/Dextrose (Levaquin 250mg/50ml) 250 mg in 50 mls @ 50 mls/hr IV Q48H [facility] Insulin Human Lispro (Humalog) 0 unit SUB-Q Q6HR [facility]; Protocol Last Admin: 12/07/19 06:42 Dose: 3 unit Documented by: Labetalol HCl (Labetalol) 200 mg PO BID [facility] Last Admin: 12/07/19 09:59 Dose: 200 mg Documented by: Metoclopramide HCl (Reglan) 10 mg PO TID [facility] Last Admin: 12/07/19 08:00 Dose: 10 mg Documented by: Ondansetron HCl (Zofran Odt) 4 mg PO Q8HR [facility] Last Admin: 12/07/19 06:09 Dose: 4 mg Documented by: Pantoprazole Sodium (Protonix) 40 mg PO BID [facility] Exam - Vital Signs Vital signs: Vital Signs Temp Pulse Resp BP Pulse Ox 98.6 F 117 H 16 228/126 100 12/06/19 15:30 12/06/19 15:30 12/06/19 15:30 12/06/19 15:30 12/06/19 15:30 - Physical Exam Narrative exam: - General Limitations: No Limitations General appearance: alert, in no apparent distress, other (appears clammy sweating actively spitting up coffee ground emesis) - Head Head exam: Present: atraumatic, normocephalic - Eye Eye exam: Present: normal appearance - ENT ENT exam: Present: mucous membranes moist - Neck Neck exam: Present: normal inspection, full ROM - Respiratory Respiratory exam: Present: normal lung sounds bilaterally. Absent: respiratory distress, wheezes, rales, rhonchi - Cardiovascular Cardiovascular Exam: Present: normal rhythm, tachycardia, normal heart sounds, other (right sided Vas-Cath insertion site without erythema or drainage). Absent: systolic murmur, diastolic murmur, rubs, gallop - GI/Abdominal GI/Abdominal exam: Present: soft, normal bowel sounds. Absent: distended, tenderness, guarding, rebound - Rectal Rectal exam: Present: deferred - Extremities Exam Extremities exam: Present: normal inspection - Neurological Exam Neurological exam: Present: alert, oriented X3 - Psychiatric Psychiatric exam: Present: normal affect, normal mood - Skin Skin exam: Present: warm, dry, intact, normal color. Absent: rash Results - Lab Results 12/06/19 15:51 12/06/19 15:51 Most recent lab results Calcium 8.9 mg/dL (8.4-10.2) 12/06/19 15:51 Assessment and Plan Assessment: * End stage renal disease * Hypertension - uncontrolled * Type II DM * Coffee ground emesis --Hx of ulcerative esophagitis * Anemia secondary to ESRD vs ABL Plan: * plan for dialysis q MWF * stress compliance with HD * GI following * Glycemic control per primary team * Continue antiHTN medications - * Epogen TIW prn
[2019-12-07] MEDS ORDERED: ALBUMIN HUMAN 25% (25 GM/100 ML) INJ IV PRN (11:09)
[2019-12-07] MEDS ORDERED: EPOETIN ALFA 10,000 UNIT/1 ML INJ IV PRN (11:09)
[2019-12-07] MEDS ORDERED: SODIUM CHLORIDE 0.9% 100 ML IV PRN (11:09)
[2019-12-07] MEDS ORDERED: ACETAMINOPHEN 325 MG TAB PO PRN (12:30)
--- NOTE | 2019-12-07 12:32 | Discharge Summary ---
Providers - Providers Date of Admission: 12/06/19 16:51 Attending physician: BERNARDINO PHAN MD 12/06/19 17:09 Consult to Physician [CONS] Routine Comment: Consulting Provider: NICK ESTEBAN Physician Instructions: Reason For Exam: ESRD 12/06/19 17:11 Consult to Physician [CONS] Routine Comment: [facility] ANSW SVC TO ADV OF HOSPITALIST CONSULT @[id number] Consulting Provider: MIKY YOUNG Physician Instructions: Reason For Exam: upper GI bleed 12/07/19 10:28 Consult to Case Management [CONS] Routine Services Needed at Discharge: Deputy Jailer Notified:: social Additional Physician Instructions: patient needs rides for dialysis,. He returns when ever he misses dialysis [facility] Reason for admission: GI bleed Condition: Stable Hospital course: 34-year-old male with hypertension, diabetes, complicated by gastroparesis, ESRD on HD (M, W, F), gastric ulcer, ulcerative esophagitis presents to ED for evaluation. Patient states that he has experienced abdominal discomfort and coffee-ground emesis admits to nausea vomiting, several episodes, + coffe ground emesis over the past 1 day. EMS was notified this morning and upon arrival the patient was found to be in distress and subsequently transported to [facility] for further care and evaluation. Patient was seen and evaluated in the emergency department. Lab and imaging studies reviewed. Patient was found to have end- stage renal disease, systemic inflammatory response syndrome, acidosis, malignant hypertension, and uncontrolled diabetes mellitus. Patient oropharynx did not reveal any dried blood or any evidence of recent hematemesis. Patient also reports that he last underwent dialysis 4 days ago. Patient admitted to telemetry due to increased risk of decompensation. Nephrology consulted for urgent dialysis, GI team consulted for GI bleed. Prior admission on 11/20/2019 reviewed. All listed medication reconciled at time of admission. Patient denies fever, chills, chest pain, palpitations, productive cough, recent ill contacts, ingestion of food/water from new or different sources, skin rash, dark stools, bright red blood per rectum, trauma, syncope, falls. * Patient symptoms improved * Review of records shows that this happens when ever he misses dialysis * Patient reports that he misses dialysis due to transportation issues, case management consulted to assist * GI cleared for discharge following dialysis * Patient tolerating diet. (1) SIRS (systemic inflammatory response syndrome) (2) End stage renal disease (3) Metabolic acidosis (4) Malignant hypertension (5) Diabetes (6) Ulcerative esophagitis (7) GI bleed secondary to esophatigit Disposition: TO HOME OR SELFCARE Time spent for discharge: 35 mins Core Measure Documentation - Palliative Care Palliative Care/ Comfort Measures: Not Applicable - Core Measures Any of the following diagnoses?: none Exam - Physical Exam Narrative exam: General appearance: Present: no distress, chronically sick appearing - EENT Eyes: Present: PERRL ENT: hearing intact, clear oral mucosa - Neck Neck: Present: supple, normal ROM - Respiratory Respiratory effort: normal Respiratory: bilateral: CTA - Cardiovascular Heart Sounds: Present: S1 & S2. Absent: rub, click - Extremities Extremities: pulses symmetrical, No edema Peripheral Pulses: within normal limits - Abdominal General gastrointestinal: Present: soft, non-tender, non-distended, normal bowel sounds Male genitourinary: Present: normal - Integumentary Integumentary: Present: clear, warm, dry - Musculoskeletal Musculoskeletal: gait normal, strength equal bilaterally - Psychiatric Psychiatric: appropriate mood/affect, intact judgment & insight - Neurologic Neurologic: CNII-XII intact, moves all extremities - Constitutional Vitals: Temp Pulse Resp BP Pulse Ox 100.3 F H 97 H 18 147/89 100 12/07/19 11:01 12/07/19 11:01 12/07/19 11:01 12/07/19 11:12/07/19 11:01 Plan Activity: advance as tolerated, fall precautions Diet: diabetic, renal Special Instructions: record daily weights, record daily BP diary, record blood sugar diary Follow up with: SANCHEZ NANCE MD [Primary Care Provider] - 7 Days CAT BOWLES MD [Staff Physician] - 7 Days CARLYN GONZALES MD [Staff Physician] - 7 Days Prescriptions: Dicyclomine [Bentyl] 10 mg PO QID #30 capsule Pantoprazole [Protonix TAB] 40 mg PO BID #60 tablet
[2019-12-07 12:36] LABS: Bilirubin,Urine NEG (Negative); Blood,Urine NEG (Negative); Color,Urine Yellow (Yellow); Mucus,Urine FEW /HPF; Urobilinogen,Urine < 2.0 mg/dL (<2.0)
[2019-12-07 12:37] LABS: Protein,Urine >2000 mg dL mg/dL (Negative)
[2019-12-07 13:49] LABS: Hepatitis B Surface Antigen Non-Reactive (Negative); Hepatitis C Virus Antibody Non-Reactive (NonReactive)
[2019-12-07 20:01] VITALS: BP 154/87
[2019-12-07] MEDS ORDERED: PANTOPRAZOLE 40 MG TAB PO SCH (22:00)
== END 2019-12-07 21:45 | disposition home or self-care (01) ==
LOC: ED 15:22 → INTOOBSV 16:51 → 4A 16:51
PROVIDERS: ADMIT Internal Medicine; ATTEND Internal Medicine
DX: K92.2 Gastrointestinal hemorrhage, unspecified (principal); R65.10 Systemic inflammatory response syndrome (SIRS) of non-infectious origin without acute organ dysfunction; I12.0 Hypertensive chronic kidney disease with stage 5 chronic kidney disease or end stage renal disease; N18.6 End stage renal disease; E11.22 Type 2 diabetes mellitus with diabetic chronic kidney disease; E87.2 Acidosis; K22.10 Ulcer of esophagus without bleeding; K31.84 Gastroparesis; J45.909 Unspecified asthma, uncomplicated; Z90.49 Acquired absence of other specified parts of digestive tract; Z98.890 Other specified postprocedural states; Z79.4 Long term (current) use of insulin
CPT/HCPCS: 36415; 36556; 71045; 80053; 80074; 81001; 82962; 83690; 85007; 85025; 85610; 85730; 86850; 86900; 86901; 87086; 93005; 93010; 96365; 96372; 96375; 96376; 99285; C9113; G0257; G0378; J0360; J0885; J1956; J2060; J2405; J1815; Q0162

== ENCOUNTER 2019-12-25 15:07 | Inpatient (IN) | payer MEDICAID ==
[~2019-12-25 15:07] MED LIST: cloNIDine TTS 0.3 MG/24 HR PATCH TD SCH
[2019-12-25] MEDS ORDERED: ONDANSETRON 4 MG/2 ML INJ IV STA (16:50)
[2019-12-25] MEDS ORDERED: SODIUM CHLORIDE 0.9% 1000 ML 500 ML IV ONE (16:51)
[2019-12-25 17:08] LABS: Basophils # (Auto) 0.2 K/mm3 (0.0-0.1); Basophils % (Auto) 2.9 % (0.0-1.8); Eosinophils # (Auto) 0.1 K/mm3 (0.0-0.4); Eosinophils % (Auto) 1.3 % (0.0-4.3); Hematocrit 27.8 % (35.5-45.6); Lymphocytes # (Auto) 1.4 K/mm3 (1.2-5.4); Lymphocytes % (Auto) 18.9 % (13.4-35.0); Mean Corpuscular HGB Conc 33 % (32-34); Mean Corpuscular Volume 85 fl (84-94); Monocytes # (Auto) 0.7 K/mm3 (0.0-0.8); Monocytes % (Auto) 9.2 % (0.0-7.3); Platelet Count 448 K/mm3 (140-440); Red Blood Count 3.29 M/mm3 (3.65-5.03); Red Cell Distribution Width 16.5 % (13.2-15.2)
[2019-12-25 17:30] LABS: Albumin 3.2 g/dL (3.9-5); BUN/Creatinine Ratio 5; Blood Urea Nitrogen 39 mg/dL (9-20); Calcium 9.4 mg/dL (8.4-10.2); Hemolysis Index 150
[2019-12-25 17:43] LABS: Bilirubin,Direct < 0.2 mg/dL (0-0.2)
[2019-12-25 17:48] LABS: Alanine Aminotransferase 15 units/L (7-56)
[2019-12-25] MEDS ORDERED: ALBUTEROL 2.5 MG/3 ML NEBU IH ONE (18:03)
--- NOTE | 2019-12-25 18:23 | Emergency Department Report ---
<DONAVAN GLYNN - Last Filed: 12/25/19 18:19> ED N/V/D HPI - General Chief complaint: Abdominal Pain Stated complaint: VOMITING BLOOD Time Seen by Provider: 12/25/19 15:49 Source: patient, EMS Mode of arrival: Stretcher Limitations: No Limitations - History of Present Illness Initial comments: 34-year-old old -[place] male with past medical history of end-stage renal disease (acquired Saturday dialysis of which he missed today due to the symptoms )and diabetes presents emerged department complaining of 1 day history of profuse nausea vomiting and abdominal pain which began after he ate some a fried chicken which he thinks might have been undercooked. States that after several episodes of vomiting he noticed a few streaks of blood in his vomit earlier this morning. Reports no fever, chills, no rashes no hematemesis no hematochezia no shortness of breath. The symptoms are worse if he attempts to eat or drink. The symptoms will improve with some rest MD complaint: nausea, vomiting, abdominal pain -: Sudden Description of Vomiting: food contents, bilious Location: epigastric Radiation: none Severity: moderate Quality: sharp (And burning) Context: possible food poisoning Associated Symptoms: loss of appetite. denies: cough, rash, shortness of breath, syncope, weakness - Related Data Home Medications Medication Instructions Recorded Confirmed Last Taken amLODIPine 10 mg PO BID 11/20/19 12/06/19 Unknown Lispro Insulin [HumaLOG] 0 unit SQ TID 11/30/19 12/06/19 Unknown Previous Rx's Medication Instructions Recorded Last Taken Type Metoclopramide [Reglan TAB] 10 mg PO TID #30 tab 12/02/19 Unknown Rx Ondansetron [Zofran ODT TAB] 4 mg PO Q8HR #10 tab.rapdis 12/02/19 Unknown Rx Pantoprazole [Protonix TAB] 40 mg PO QDAY 30 Days #30 tablet 12/02/19 Unknown Rx hydrALAZINE [Apresoline TAB] 25 mg PO Q8HR 30 Days #90 tablet 12/02/19 Unknown Rx labetaloL [Labetalol 200mg TAB] 200 mg PO BID #60 12/02/19 Unknown Rx Dicyclomine [Bentyl] 10 mg PO QID #30 capsule 12/07/19 Unknown Rx Pantoprazole [Protonix TAB] 40 mg PO BID #60 tablet 12/07/19 Unknown Rx Allergies Allergy/AdvReac Type Severity Reaction Status Date / Time No Known Allergies Allergy Verified 11/21/18 17:51 ED Review of Systems Comment: All other systems reviewed and negative ED Past Medical Hx - Past Medical History Hx Hypertension: Yes Hx Heart Attack/AMI: No Hx Congestive Heart Failure: No Hx Diabetes: Yes Hx Deep Vein Thrombosis: No Hx Sickle Cell Disease: No Hx Asthma: Yes Hx COPD: No Hx HIV: No Additional medical history: Ulcerative esophagitis, Gastroparesis HD MWF - Surgical History Hx Pacemaker: No Hx Internal Defibrillator: No Hx Appendectomy: Yes Additional Surgical History: right great toe removed, Right chest PERMA-CATH - Social History Smoking Status: Never Smoker Substance Use Type: None - Medications Home Medications: Home Medications Medication Instructions Recorded Confirmed Last Taken Type amLODIPine 10 mg PO BID 11/20/19 12/06/19 Unknown History Lispro Insulin [HumaLOG] 0 unit SQ TID 11/30/19 12/06/19 Unknown History Metoclopramide [Reglan TAB] 10 mg PO TID #30 tab 12/02/19 12/06/19 Unknown Rx Ondansetron [Zofran ODT TAB] 4 mg PO Q8HR #10 tab.rapdis 12/02/19 12/06/19 Unknown Rx Pantoprazole [Protonix TAB] 40 mg PO QDAY 30 Days #30 tablet 12/02/19 12/06/19 U nknown Rx hydrALAZINE [Apresoline TAB] 25 mg PO Q8HR 30 Days #90 tablet 12/02/19 12/06/19 Unknown Rx labetaloL [Labetalol 200mg TAB] 200 mg PO BID #60 12/02/19 12/06/19 Unknown Rx Dicyclomine [Bentyl] 10 mg PO QID #30 capsule 12/07/19 Unknown Rx Pantoprazole [Protonix TAB] 40 mg PO BID #60 tablet 12/07/19 Unknown Rx ED Physical Exam - General Limitations: No Limitations General appearance: alert, in no apparent distress - Head Head exam: Present: atraumatic, normocephalic - Eye Eye exam: Present: normal appearance - ENT ENT exam: Present: normal exam, normal orophraynx, mucous membranes moist - Neck Neck exam: Present: normal inspection - Respiratory Respiratory exam: Present: normal lung sounds bilaterally. Absent: respiratory distress - Cardiovascular Cardiovascular Exam: Present: regular rate, normal rhythm. Absent: systolic murmur, diastolic murmur, rubs, gallop - GI/Abdominal GI/Abdominal exam: Present: soft, tenderness, normal bowel sounds, other (No Rovsing, no tenderness at McBurney's, no Rosas Rodriguez's, no Kristian's). Absent: distended - Rectal Rectal exam: Present: deferred. Absent: normal inspection, normal rectal tone - Extremities Exam Extremities exam: Present: normal inspection, full ROM, normal capillary refill - Back Exam Back exam: Present: normal inspection - Neurological Exam Neurological exam: Present: alert, oriented X3 - Psychiatric Psychiatric exam: Present: normal affect, normal mood - Skin Skin exam: Present: warm, dry, intact, normal color. Absent: rash ED Medical Decision Making - Lab Data Result diagrams: 12/25/19 16:06 12/25/19 16:06 - Medical Decision Making Case discussed with attending Dr. ARMENDARIZ who will take over the care and follow-up on the repeat potassium and CT scan ED Disposition Clinical Impression: Intractable nausea and vomiting, Hyperkalemia, Gastroparesis, Uncontrolled hyp ertension, End-stage renal disease needing dialysis Disposition: -09 OP ADMIT IP TO THIS HOSP Condition: Stable <KELBY ARMENDARIZ - Last Filed: 12/25/19 22:20> ED Review of Systems ROS: Stated complaint: VOMITING BLOOD Other details as noted in HPI ED Course Vital Signs 12/25/19 12/25/19 12/25/19 15:30 15:35 16:00 Temperature 98.4 F Pulse Rate 95 H 89 87 Pulse Rate [ Anterior] Respiratory 15 15 22 Rate Respiratory Rate [Anterior] Blood Pressure 257/150 237/125 Blood Pressure [Left] O2 Sat by Pulse 100 97 Oximetry 12/25/19 12/25/19 12/25/19 16:30 17:01 17:17 Temperature Pulse Rate 86 90 87 Pulse Rate [ Anterior] Respiratory 12 15 16 Rate Respiratory Rate [Anterior] Blood Pressure 231/130 213/127 Blood Pressure 213/127 [Left] O2 Sat by Pulse 90 89 97 Oximetry 12/25/19 12/25/19 12/25/19 17:30 18:00 18:35 Temperature Pulse Rate 82 90 Pulse Rate [ Anterior] Respiratory 14 16 Rate Respiratory Rate [Anterior] Blood Pressure 207/122 228/144 228/144 Blood Pressure [Left] O2 Sat by Pulse 84 99 99 Oximetry 12/25/19 12/25/19 12/25/19 19:00 19:20 19:30 Temperature Pulse Rate Pulse Rate [ 92 H Anterior] Respiratory Rate Respiratory 22 Rate [Anterior] Blood Pressure 239/133 234/138 Blood Pressure [Left] O2 Sat by Pulse 93 100 Oximetry 12/25/19 12/25/19 12/25/19 20:00 20:30 21:00 Temperature Pulse Rate 109 H Pulse Rate [ Anterior] Respiratory 18 Rate Respiratory Rate [Anterior] Blood Pressure 208/105 221/123 218/120 Blood Pressure [Left] O2 Sat by Pulse 100 97 90 Oximetry 12/25/19 21:31 Temperature Pulse Rate 94 H Pulse Rate [ Anterior] Respiratory Rate Respiratory Rate [Anterior] Blood Pressure Blood Pressure 198/108 [Left] O2 Sat by Pulse Oximetry ED Medical Decision Making - Lab Data Result diagrams: 12/25/19 16:06 12/25/19 18:03 Lab Results 12/25/19 12/25/19 12/25/19 Range/Units 16:06 16:06 17:59 WBC 7.5 (4.5-11.0) K/mm3 RBC 3.29 L (3.65-5.03) M/mm3 Hgb 9.0 L (11.8-15.2) gm/dl Hct 27.8 L (35.5-45.6) % MCV 85 (84-94) fl MCH 28 (28-32) pg MCHC 33 (32-34) % RDW 16.5 H (13.2-15.2) % Plt Count 448 H (140-440) K/mm3 Lymph % (Auto) 18.9 (13.4-35.0) % [place] % (Auto) 9.2 H (0.0-7.3) % Eos % (Auto) 1.3 (0.0-4.3) % Baso % (Auto) 2.9 H (0.0-1.8) % Lymph # 1.4 (1.2-5.4) K/mm3 [place] # 0.7 (0.0-0.8) K/mm3 Eos # 0.1 (0.0-0.4) K/mm3 Baso # 0.2 H (0.0-0.1) K/mm3 Seg Neutrophils % 67.7 (40.0-70.0) % Seg Neutrophils # 5.1 (1.8-7.7) K/mm3 PT 12.8 (12.2-14.9) Sec. INR 0.95 (0.87-1.13) Sodium 143 (137-145) mmol/L Potassium 5.8 H (3.6-5.0) mmol/L Chloride 104.3 (98-107) mmol/L Carbon Dioxide 22 (22-30) mmol/L Anion Gap 23 mmol/L BUN 39 H (9-20) mg/dL Creatinine 8.4 H (0.8-1.5) mg/dL Estimated GFR 9 ml/min BUN/Creatinine Ratio 5 % Glucose 143 H (75-100) mg/dL POC Glucose (70-105) Calcium 9.4 (8.4-10.2) mg/dL Total Bilirubin 0.30 (0.1-1.2) mg/dL Direct Bilirubin < 0.2 (0-0.2) mg/dL Indirect Bilirubin 0.1 mg/dL AST 29 (5-40) units/L ALT 15 (7-56) units/L Alkaline Phosphatase 80 (35-129) units/L Total Protein 6.5 (6.3-8.2) g/dL Albumin 3.2 L (3.9-5) g/dL Albumin/Globulin Ratio 1.0 % Lipase 45 (13-60) units/L 12/25/19 12/25/19 12/25/19 Range/Units 18:03 19:10 20:41 WBC (4.5-11.0) K/mm3 RBC (3.65-5.03) M/mm3 Hgb (11.8-15.2) gm/dl Hct (35.5-45.6) % MCV (84-94) fl MCH (28-32) pg MCHC (32-34) % RDW (13.2-15.2) % Plt Count (140-440) K/mm3 Lymph % (Auto) (13.4-35.0) % [place] % (Auto) (0.0-7.3) % Eos % (Auto) (0.0-4.3) % Baso % (Auto) (0.0-1.8) % Lymph # (1.2-5.4) K/mm3 [place] # (0.0-0.8) K/mm3 Eos # (0.0-0.4) K/mm3 Baso # (0.0-0.1) K/mm3 Seg Neutrophils % (40.0-70.0) % Seg Neutrophils # (1.8-7.7) K/mm3 PT (12.2-14.9) Sec. INR (0.87-1.13) Sodium (137-145) mmol/L Potassium 5.8 H (3.6-5.0) mmol/L Chloride (98-107) mmol/L Carbon Dioxide (22-30) mmol/L Anion Gap mmol/L BUN (9-20) mg/dL Creatinine (0.8-1.5) mg/dL Estimated GFR ml/min BUN/Creatinine Ratio % Glucose (75-100) mg/dL POC Glucose 135 H 146 H (70-105) Calcium (8.4-10.2) mg/dL Total Bilirubin (0.1-1.2) mg/dL Direct Bilirubin (0-0.2) mg/dL Indirect Bilirubin mg/dL AST (5-40) units/L ALT (7-56) units/L Alkaline Phosphatase (35-129) units/L Total Protein (6.3-8.2) g/dL Albumin (3.9-5) g/dL Albumin/Globulin Ratio % Lipase (13-60) units/L - Medical Decision Making Patient received 8 mg of IV Zofran and continues to have vomiting and nausea. No pain reported. CT reviewed and does not show acute findings. Previous medical record review. Patient has a history of gastroparesis and remote history of peptic ulcer disease. Nausea and vomiting episodes typically associated with dialysis noncompliance. Patient missed dialysis today secondary to his nausea and vomiting after eating possibly undercooked chicken. CT abdomen pelvis does not show any acute findings. Patient has mild hyperkalemia and received insulin, glucose, calcium gluconate, albuterol 10 mg. Lasix ot provided since patient does not make urine. Also patient received several IV boluses of labetalol for persistently elevated blood pressure. Reglan and Benadryl ordered for additional nausea and vomiting control. IV Protonix ordered for reports of blood-streaked vomitus and remote history of p eptic ulcer disease. Given that patient continues to have nausea and vomiting, hyperkalemia, and uncontrolled blood pressure he will be admitted to the hospital service for further evaluation with nephrology consultation to manage dialysis. DR Silas vázquez informed and orders placed Critical Care Time: No Critical care attestation.: If time is entered above; I have spent that time in minutes in the direct care of this critically ill patient, excluding procedure time. ED Disposition Is pt being admited?: Yes Time of Disposition: 21:03 (Hospitalist to admit)
[2019-12-25 18:28] LABS: INR 0.95 (0.87-1.13)
[2019-12-25] MEDS ORDERED: ONDANSETRON 4 MG/2 ML INJ ONE (18:55)
[2019-12-25] MEDS ORDERED: ONDANSETRON 4 MG/2 ML INJ IV ONE (19:01)
[2019-12-25] MEDS ORDERED: INSULIN REGULAR, HUMAN 100 UNITS/1 ML IV ONE (19:16)
[2019-12-25] MEDS ORDERED: DEXTROSE 50% IN WATER (25GM) 50 ML VIAL IV ONE (19:16)
[2019-12-25] MEDS ORDERED: SODIUM BICARB 8.4% 50 MEQ/50 ML SYRINGE IV ONE (19:16)
[2019-12-25] MEDS ORDERED: CALCIUM GLUCONATE 1,000 MG in SODIUM CHLORIDE 0.9% 100 ML IV ONE (19:17)
--- NOTE | 2019-12-25 19:34 | Cat Scan Report ---
CT abdomen pelvis wo con INDICATION / CLINICAL INFORMATION: Abdominal Pain. Vomiting, nausea TECHNIQUE: Axial CT imaging of abdomen and pelvis was obtained without contrast. Coronal and sagittal reformatte d imaging obtained and reviewed. All CT scans at this location are performed using CT dose reduction for ALARA by means of automated exposure control. COMPARISON: Prior CT, 11/02/2019 FINDINGS: CT abdomen without contrast demonstrates grossly normal appearance of the liver, spleen, pancreas, ad renal glands, and gallbladder. There is mild perinephric inflammatory change bilaterally, without hyd ronephrosis or visible renal mass. Small amount of ascites is noted throughout the abdomen and pelvis . CT pelvis without contrast demonstrates no acute inflammatory change or mass. As noted within the abd omen, there is a small amount of ascites visible. The appendix appears to have been surgically remove d. Mild anasarca is noted. Visualized lung bases show a small right pleural effusion and a small pericardial effusion. Cardiac s ize is slightly enlarged. No osseous abnormality. IMPRESSION: 1. No definite acute finding within the abdomen or pelvis. 2. Small right pleural effusion and small amount of ascites are not appreciably changed from prior CT abdomen/pelvis, 11/02/2019. Signer Name: Clarice Meraz MD Signed: 12/25/2019 7:29 PM Workstation Name: [id number]
[2019-12-25] MEDS ORDERED: DEXTROSE 50% IN WATER (25GM) 50 ML SYRINGE IV ONE ×2 (20:22→21:00)
[2019-12-25] MEDS ORDERED: PANTOPRAZOLE 40 MG INJ IV ONE (20:44)
[2019-12-25] MEDS ORDERED: METOCLOPRAMIDE 10 MG/2 ML INJ IV ONE (20:58)
[2019-12-25] MEDS ORDERED: diphenhydrAMINE 50 MG/ML VIAL IV ONE (20:58)
[2019-12-25] MEDS ORDERED: SODIUM CHLORIDE 0.9% 100 ML IV PRN (21:24)
[2019-12-25] MEDS ORDERED: ALBUTEROL 2.5 MG/3 ML NEBU IH PRN (21:38)
[2019-12-25] MEDS ORDERED: ACETAMINOPHEN 325 MG TAB PO PRN (21:38)
[2019-12-25] MEDS ORDERED: DEXTROSE 50% IN WATER (25GM) 50 ML SYRINGE IV PRN (21:54)
[2019-12-25] MEDS ORDERED: INSULIN LISPRO 100 UNIT/ML SUB-Q ONE (21:57)
--- NOTE | 2019-12-25 22:48 | History and Physical Report ---
History of Present Illness Date of examination: 12/25/19 Chief complaint: Persistent nausea and vomiting since this morning History of present illness: Nunu Henry is a 34-year-old old -British male with past medical history of end-stage renal disease (acquired Saturday dialysis of which he missed today due to the symptoms )and insulin-dependent diabetes and hypertension presents to the emergency department complaining of 1 day history of profuse nausea vomiting and abdominal pain which began after he ate some fried chicken which he thinks might have been undercooked. States that after several episodes of vomiting he noticed a few streaks of blood in his vomit earlier this morning. Reports no fever, chills, no rashes no hematemesis no hematochezia no shortness of breath. The symptoms are worse if he attempts to eat or drink. Patient is being admitted for intractable nausea and vomiting. Past History Past Medical History: diabetes, ESRD, hypertension Past Surgical History: No surgical history Social history: no significant social history Family history: hypertension Medications and Allergies Allergies Allergy/AdvReac Type Severity Reaction Status Date / Time No Known Allergies Allergy Verified 11/21/18 17:51 Home Medications Medication Instructions Recorded Confirmed Last Taken Type amLODIPine 10 mg PO BID 11/20/19 12/06/19 Unknown History Lispro Insulin [HumaLOG] 0 unit SQ TID 11/30/19 12/06/19 Unknown History Metoclopramide [Reglan TAB] 10 mg PO TID #30 tab 12/02/19 12/06/19 Unknown Rx Ondansetron [Zofran ODT TAB] 4 mg PO Q8HR #10 tab.rapdis 12/02/19 12/06/19 Unknown Rx Pantoprazole [Protonix TAB] 40 mg PO QDAY 30 Days #30 tablet 12/02/19 12/06/19 Unknown Rx hydrALAZINE [Apresoline TAB] 25 mg PO Q8HR 30 Days #90 tablet 12/02/19 12/06/19 Unknown Rx labetaloL [Labetalol 200mg TAB] 200 mg PO BID #60 12/02/19 12/06/19 Unknown Rx Dicyclomine [Bentyl] 10 mg PO QID #30 capsule 12/07/19 Unknown Rx Pantoprazole [Protonix TAB] 40 mg PO BID #60 tablet 12/07/19 Unknown Rx Active Meds: Active Medications Acetaminophen (Tylenol) 650 mg PO Q4H PRN PRN Reason: Pain MILD(1-3)/Fever >100.5/LANZA Albuterol (Proventil) 2.5 mg IH Q4HRT PRN PRN Reason: Shortness Of Breath Clonidine HCl (Catapres-Tts Patch) 0.3 mg TD QWEEK KESHIA Dextrose (D50w (25gm) Syringe) 50 ml IV Q30MIN PRN; Protocol PRN Reason: Hypoglycemia Heparin Sodium (Porcine) (Heparin) 5,000 unit SUB-Q Q12HR KESHIA Hydralazine HCl (Apresoline) 10 mg IV Q6H PRN PRN Reason: Hypertension Sodium Chloride (Nacl 0.9%) 100 mls @ 999 mls/hr IV BRENDAN PRN PRN Reason: Hypotension Ondansetron HCl (Zofran) 4 mg IV Q6H PRN PRN Reason: Nausea And Vomiting Pantoprazole Sodium (Protonix) 40 mg IV DAILY KESHIA Sodium Chloride (Sodium Chloride Flush Syringe 10 Ml) 10 ml IV BID KESHIA Sodium Chloride (Sodium Chloride Flush Syringe 10 Ml) 10 ml IV PRN PRN PRN Reason: LINE FLUSH Review of Systems Constitutional: fatigue, no weight loss, no fever, no chills Ears, nose, mouth and throat: no nasal congestion, no sore throat, no headache Cardiovascular: no chest pain, no syncope, no lightheadedness, no shortness of breath Respiratory: no cough, no shortness of breath Gastrointestinal: nausea, vomiting, no abdominal pain, no diarrhea, no constipation, no coffee ground emesis, no melena Genitourinary Male: no dysuria Musculoskeletal: no neck pain Integumentary: no rash Exam - Constitutional Vitals: Temp Pulse Resp BP Pulse Ox 98.4 F 94 H 18 198/108 90 12/25/19 15:35 12/25/19 21:31 12/25/19 21:00 12/25/19 21:31 12/25/19 21:00 General appearance: Present: no acute distress, well-nourished - EENT Eyes: Present: PERRL, EOM intact ENT: hearing intact, clear oral mucosa - Neck Neck: Present: supple, normal ROM - Respiratory Respiratory effort: normal Respiratory: bilateral: CTA - Cardiovascular Rhythm: regular Heart Sounds: Present: S1 & S2 - Extremities Extremities: No edema - Abdominal General gastrointestinal: Present: soft, non-tender. Absent: hepatomegaly, splenomegaly - Rectal Rectal Exam: deferred - Integumentary Integumentary: Present: clear - Musculoskeletal Musculoskeletal: strength equal bilaterally - Psychiatric Psychiatric: appropriate mood/affect - Neurologic Neurologic: no focal deficits Results - Labs CBC & Chem 7: 12/25/19 16:06 12/25/19 18:03 Labs: Abnormal lab results 12/25/19 12/25/19 12/25/19 Range/Units 16:06 16:06 18:03 RBC 3.29 L (3.65-5.03) M/mm3 Hgb 9.0 L (11.8-15.2) gm/dl Hct 27.8 L (35.5-45.6) % RDW 16.5 H (13.2-15.2) % Plt Count 448 H (140-440) K/mm3 [place] % (Auto) 9.2 H (0.0-7.3) % Baso % (Auto) 2.9 H (0.0-1.8) % Baso # 0.2 H (0.0-0.1) K/mm3 Potassium 5.8 H 5.8 H (3.6-5.0) mmol/L BUN 39 H (9-20) mg/dL Creatinine 8.4 H (0.8-1.5) mg/dL Glucose 143 H (75-100) mg/dL POC Glucose (70-105) Albumin 3.2 L (3.9-5) g/dL 12/25/19 12/25/19 Range/Units 19:10 20:41 RBC (3.65-5.03) M/mm3 Hgb (11.8-15.2) gm/dl Hct (35.5-45.6) % RDW (13.2-15.2) % Plt Count (140-440) K/mm3 [place] % (Auto) (0.0-7.3) % Baso % (Auto) (0.0-1.8) % Baso # (0.0-0.1) K/mm3 Potassium (3.6-5.0) mmol/L BUN (9-20) mg/dL Creatinine (0.8-1.5) mg/dL Glucose (75-100) mg/dL POC Glucose 135 H 146 H (70-105) Albumin (3.9-5) g/dL Assessment and Plan - Patient Problems (1) Normocytic anemia Current Visit: Yes Status: Chronic Plan to address problem: Likely chronic from chronic kidney disease No overt bleed Monitor H&H (2) Insulin dependent diabetes mellitus Current Visit: Yes Status: Chronic Plan to address problem: We will initiate insulin sliding scale coverage for now (3) End-stage renal disease needing dialysis Current Visit: Yes Status: Chronic Plan to address problem: Nephrology was informed by ED physician Patient scheduled for hemodialysis tomorrow morning (4) Hyperkalemia Current Visit: Yes Status: Acute Plan to address problem: Secondary to end-stage renal disease and not undergoing hemodialysis today Patient was given IV calcium gluconate and IV dextrose in the ED Monitor electrolytes Patient scheduled for hemodialysis in a.m. Nephrology aware of serum potassium level of 5.8 (5) Intractable nausea and vomiting Current Visit: Yes Status: Acute Plan to address problem: Most likely secondary to diabetic gastroparesis Keep patient n.p.o. IV hydralazine PRN Empiric IV PPI (6) Gastroparesis Current Visit: Yes Status: Chronic (7) Accelerated hypertension Current Visit: No Status: Acute Plan to address problem: Patient is n.p.o. Start the patient on clonidine transdermal patch and IV hydralazine
[2019-12-26] MEDS: HEPARIN 5,000 UNIT/1 ML VIAL SUB-Q SCH ×2 (01:50→12:54)
[2019-12-26] MEDS: hydrALAZINE 20 MG/1 ML INJ IV PRN ×3 (05:53→15:28)
[2019-12-26] MEDS ORDERED: SODIUM CHLORIDE 0.9% 100 ML IV PRN (09:18)
[2019-12-26] MEDS ORDERED: SODIUM CHLORIDE*PRIMING MACHINE ONLY FOR DIALYSIS MC ONE (11:31)
[2019-12-26] MEDS: PANTOPRAZOLE 40 MG INJ IV SCH (12:54)
[2019-12-26 13:00] LABS: Hepatitis B Surface Antigen Non-Reactive (Negative); Hepatitis C Virus Antibody Non-Reactive (NonReactive)
--- NOTE | 2019-12-26 13:07 | Progress Note ---
Assessment and Plan Assessment and plan: Normocytic anemia Likely chronic from chronic kidney disease No overt bleed Monitor H&H Insulin dependent diabetes mellitus We will initiate insulin sliding scale coverage for now End-stage renal disease needing dialysis Nephrology was informed by ED physician Dialysis today Hyperkalemia Secondary to end-stage renal disease and not undergoing hemodialysis today Patient was given IV calcium gluconate and IV dextrose in the ED Monitor electrolytes Dialysis Intractable nausea and vomiting Most likely secondary to diabetic gastroparesis Keep patient n.p.o. IV hydralazine PRN Empiric IV PPI Gastroparesis Hypertensive urgency, BP 257/150 on admission Patient is n.p.o. Continue patient on clonidine transdermal patch, and IV hydralazine Cont Metoprolol iv Q 6h Add Hydraazine iv scheduled History Interval history: nausea and vomiting Cannot tolerate diet Hospitalist Physical - Physical exam Narrative exam: GEN: Not in acute distress, lying in bed, HEENT: Normocephalic, atraumatic, Neck: supple, No JVD Lungs: Clear to auscultation bilat, no wheeze, heart;S1 and S2 reg, no murmurs, rubs or gallop Abd:soft, non tender , non distended, normal bowel sounds Ext: No edema, no clubbing, no cyanosis Neuro: Awake,alert, oriented X 3, no focal neurological signs - Constitutional Vitals: Temp Pulse Resp BP Pulse Ox 98.2 F 96 H 18 206/116 97 12/26/19 09:00 12/26/19 11:45 12/26/19 09:00 12/26/19 11:45 12/26/19 08:03 General appearance: Present: no acute distress, well-nourished Results - Labs CBC & Chem 7: 12/25/19 16:06 12/26/19 05:47 Labs: Laboratory Last Values WBC 7.5 K/mm3 (4.5-11.0) 12/25/19 16:06 RBC 3.29 M/mm3 (3.65-5.03) L 12/25/19 16:06 Hgb 9.0 gm/dl (11.8-15.2) L 12/25/19 16:06 Hct 27.8 % (35.5-45.6) L 12/25/19 16:06 MCV 85 fl (84-94) 12/25/19 16:06 MCH 28 pg (28-32) 12/25/19 16:06 MCHC 33 % (32-34) 12/25/19 16:06 RDW 16.5 % (13.2-15.2) H 12/25/19 16:06 Plt Count 448 K/mm3 (140-440) H 12/25/19 16:06 Lymph % (Auto) 18.9 % (13.4-35.0) 12/25/19 16:06 [place] % (Auto) 9.2 % (0.0-7.3) H 12/25/19 16:06 Eos % (Auto) 1.3 % (0.0-4.3) 12/25/19 16:06 Baso % (Auto) 2.9 % (0.0-1.8) H 12/25/19 16:06 Lymph # 1.4 K/mm3 (1.2-5.4) 12/25/19 16:06 [place] # 0.7 K/mm3 (0.0-0.8) 12/25/19 16:06 Eos # 0.1 K/mm3 (0.0-0.4) 12/25/19 16:06 Baso # 0.2 K/mm3 (0.0-0.1) H 12/25/19 16:06 Seg Neutrophils % 67.7 % (40.0-70.0) 12/25/19 16:06 Seg Neutrophils # 5.1 K/mm3 (1.8-7.7) 12/25/19 16:06 PT 12.8 Sec. (12.2-14.9) 12/25/19 17:59 INR 0.95 (0.87-1.13) 12/25/19 17:59 Sodium 145 mmol/L (137-145) 12/26/19 05:47 Potassium 4.9 mmol/L (3.6-5.0) 12/26/19 05:47 Chloride 106.2 mmol/L (98-107) 12/26/19 05:47 Carbon Dioxide 23 mmol/L (22-30) 12/26/19 05:47 Anion Gap 21 mmol/L 12/26/19 05:47 BUN 45 mg/dL (9-20) H 12/26/19 05:47 Creatinine 9.3 mg/dL (0.8-1.5) H 12/26/19 05:47 Estimated GFR 8 ml/min 12/26/19 05:47 BUN/Creatinine Ratio 5 % 12/26/19 05:47 Glucose 138 mg/dL (75-100) H 12/26/19 05:47 POC Glucose 168 (70-105) H 12/26/19 13:02 Calcium 9.0 mg/dL (8.4-10.2) 12/26/19 05:47 Total Bilirubin 0.30 mg/dL (0.1-1.2) 12/25/19 16:06 Direct Bilirubin < 0.2 mg/dL (0-0.2) 12/25/19 16:06 Indirect Bilirubin 0.1 mg/dL 12/25/19 16:06 AST 29 units/L (5-40) 12/25/19 16:06 ALT 15 units/L (7-56) 12/25/19 16:06 Alkaline Phosphatase 80 units/L (35-129) 12/25/19 16:06 Total Protein 6.5 g/dL (6.3-8.2) 12/25/19 16:06 Albumin 3.2 g/dL (3.9-5) L 12/25/19 16:06 Albumin/Globulin Ratio 1.0 % 12/25/19 16:06 Lipase 45 units/L (13-60) 12/25/19 16:06 Hepatitis A IgM Ab Non-reactive (NonReactive) 12/26/19 09:20 Hep Bs Antigen Non-reactive (Negative) 12/26/19 09:20 Hep B Core IgM Ab Non-reactive (NonReactive) 12/26/19 09:20 Hepatitis C Antibody Non-reactive (NonReactive) 12/26/19 09:20 Active Medications - Current Medications Current Medications: Generic Name Dose Route Start Last Admin Trade Name Freq PRN Reason Stop Dose Admin Acetaminophen 650 mg 12/25/19 21:38 Tylenol PO Q4H PRN Pain MILD(1-3)/Fever >100.5/LANZA Albuterol 2.5 mg 12/25/19 21:38 Proventil IH Q4HRT PRN Shortness Of Breath Clonidine HCl 0.3 mg 12/25/19 10:00 12/26/19 01:08 Catapres-Tts Patch TD 0.3 mg QWEEK KESHIA Administration Dextrose 50 ml 12/25/19 21:54 D50w (25gm) Syringe IV Q30MIN PRN Hypoglycemia Protocol Heparin Sodium (Porcine) 5,000 unit 12/25/19 22:00 12/26/19 12:54 Heparin SUB-Q 5,000 unit Q12HR KESHIA Administration Hydralazine HCl 10 mg 12/25/19 21:44 12/26/19 11:35 Apresoline IV 10 mg Q6H PRN Administration Hypertension Sodium Chloride 100 mls @ 999 mls/hr 12/25/19 21:24 12/26/19 11:35 Nacl 0.9% IV 999 mls/hr BRENDAN PRN Administration Hypotension Sodium Chloride 100 mls @ 999 mls/hr 12/26/19 09:18 Nacl 0.9% IV BRENDAN PRN Hypotension Ondansetron HCl 4 mg 12/25/19 21:38 Zofran IV Q6H PRN Nausea And Vomiting Pantoprazole Sodium 40 mg 12/26/19 10:00 12/26/19 12:54 Protonix IV 40 mg DAILY KESHIA Administration Sodium Chloride 10 ml 12/25/19 22:00 12/26/19 12:54 Sodium Chloride Flush Syringe 10 Ml IV 10 ml BID KESHIA Administration Sodium Chloride 10 ml 12/25/19 21:38 Sodium Chloride Flush Syringe 10 Ml IV PRN PRN LINE FLUSH
[2019-12-26] MEDS: hydrALAZINE 25 MG TAB PO SCH (13:56)
[2019-12-26] MEDS: DICYCLOMINE 10 MG CAP PO SCH ×3 (13:56→18:11)
[2019-12-26] MEDS: FUROSEMIDE 40 MG TAB PO SCH ×2 (13:56→14:05)
[2019-12-26] MEDS: LISINOPRIL 5 MG TAB PO SCH ×2 (13:57→14:05)
[2019-12-26] MEDS ORDERED: METOCLOPRAMIDE 10 MG TAB PO SCH ×2 (14:00)
[2019-12-26] MEDS ORDERED: amLODIPine 5 MG TAB PO SCH (14:00)
[2019-12-26] MEDS: ONDANSETRON 4 MG/2 ML INJ IV PRN (14:13)
[2019-12-26] MEDS: METOCLOPRAMIDE 10 MG/2 ML INJ IV SCH (16:51)
[2019-12-26] MEDS: METOPROLOL TARTRATE 5 MG/5 ML INJ IV SCH (16:52)
--- NOTE | 2019-12-26 20:25 | Consultation ---
History of Present Illness - Reason for Consult Consult date: 12/26/19 end stage renal disease - History of Present Illness This is a 34 year-old man with ESRD who presents for nausea, vomiting, abdominal distress, found to have hyperkalemia. Notes that symptoms started prior to last HD session and therefore he missed HD. He denies any recent issues with HD itself, including dizziness, lightheadedness, cramping, chest pain on HD. Currently, patient denies any issues including dyspnea, edema, access issues, nausea, vomiting, headaches. He is seen on HD. Notes that abdominal pain remai ns. Past History Past Medical History: diabetes, ESRD, hypertension Past Surgical History: No surgical history Social history: no significant social history Family history: hypertension Medications and Allergies Allergies Allergy/AdvReac Type Severity Reaction Status Date / Time No Known Allergies Allergy Verified 11/21/18 17:51 Home Medications Medication Instructions Recorded Confirmed Last Taken Type amLODIPine 5 mg PO DAILY 11/20/19 12/26/19 Unknown History Lispro Insulin [HumaLOG] 0 unit SQ TID 11/30/19 12/26/19 Unknown History Ondansetron [Zofran ODT TAB] 4 mg PO Q8HR #10 tab.rapdis 12/02/19 12/06/19 Unknown Rx hydrALAZINE [Apresoline TAB] 25 mg PO Q8HR 30 Days #90 tablet 12/02/19 12/26/19 Unknown Rx Dicyclomine [Bentyl] 10 mg PO QID #30 capsule 12/07/19 12/26/19 Unknown Rx Albuterol Sulfate [Albuterol 0.63% 0.63 mg IH Q4HR PRN 12/26/19 12/26/19 Unknown History NEBS] Furosemide [Lasix TAB] 40 mg PO BID 12/26/19 12/26/19 Unknown History Metoclopramide [Reglan TAB] 10 mg PO QID 12/26/19 12/26/19 Unknown History Pantoprazole [Protonix] 40 mg PO QDAY 12/26/19 12/26/19 Unknown History carvediloL [Coreg] 12/26/19 Unknown History labetaloL [Labetalol 200mg TAB] 100 mg PO BID 12/26/19 12/26/19 Unknown History lisinopriL [Zestril TAB] 5 mg PO DAILY 12/26/19 12/26/19 Unknown History Active Meds: Active Medications Acetaminophen (Tylenol) 650 mg PO Q4H PRN PRN Reason: Pain MILD(1-3)/Fever >100.5/LANZA Albuterol (Proventil) 2.5 mg IH Q4HRT PRN PRN Reason: Shortness Of Breath Clonidine HCl (Catapres-Tts Patch) 0.3 mg TD QWEEK [facility] Last Admin: 12/26/19 01:08 Dose: 0.3 mg Documented by: Dextrose (D50w (25gm) Syringe) 50 ml IV Q30MIN PRN; Protocol PRN Reason: Hypoglycemia Dicyclomine HCl (Bentyl) 10 mg PO QID [facility] Last Admin: 12/26/19 18:11 Dose: Not Given Documented by: Furosemide (Lasix) 40 mg PO BID [facility] Last Admin: 12/26/19 13:56 Dose: Not Given Documented by: Heparin Sodium (Porcine) (Heparin) 5,000 unit SUB-Q Q12HR [facility] Last Admin: 12/26/19 12:54 Dose: 5,000 unit Documented by: Hydralazine HCl (Apresoline) 25 mg PO Q8HR [facility] Last Admin: 12/26/19 13:56 Dose: Not Given Documented by: Hydralazine HCl (Apresoline) 20 mg IV Q4HR PRN PRN Reason: SBP>160 or DBP>110 Last Admin: 12/26/19 15:28 Dose: 20 mg Documented by: Sodium Chloride (Nacl 0.9%) 100 mls @ 999 mls/hr IV BRENDAN PRN PRN Reason: Hypotension Last Admin: 12/26/19 11:35 Dose: 999 mls/hr Documented by: Sodium Chloride (Nacl 0.9%) 100 mls @ 999 mls/hr IV BRENDAN PRN PRN Reason: Hypotension Labetalol HCl (Labetalol) 100 mg PO BID [facility] Lisinopril (Zestril) 5 mg PO DAILY [facility] Last Admin: 12/26/19 13:57 Dose: Not Given Documented by: Metoclopramide HCl (Reglan) 10 mg IV ACHS [facility] Last Admin: 12/26/19 16:51 Dose: 10 mg Documented by: Metoprolol Tartrate (Metoprolol) 5 mg IV Q6H [facility] Last Admin: 12/26/19 16:52 Dose: 5 mg Documented by: Ondansetron HCl (Zofran) 4 mg IV Q6H PRN PRN Reason: Nausea And Vomiting Last Admin: 12/26/19 14:13 Dose: 4 mg Documented by: Pantoprazole Sodium (Protonix) 40 mg IV DAILY [facility] Last Admin: 12/26/19 12:54 Dose: 40 mg Documented by: Sodium Chloride (Sodium Chloride Flush Syringe 10 Ml) 10 ml IV BID [facility] Last Admin: 12/26/19 12:54 Dose: 10 ml Documented by: Sodium Chloride (Sodium Chloride Flush Syringe 10 Ml) 10 ml IV PRN PRN PRN Reason: LINE FLUSH Review of Systems All systems: negative (as per HPI) Exam - Vital Signs Vital signs: Vital Signs Pulse Resp 95 H 15 12/25/19 15:30 12/25/19 15:30 - Physical Exam Narrative exam: Constitutional: no acute distress Head: NC/AT Neck: supple Lungs: clear to auscultation CV: RRR, no M/R/G Abdomen: soft, non-tender, bowel sounds present Back: nontender Extremities: no edema, pulses WNL Skin: intact Neuro: no focal deficits, alert and oriented x4 Results - Lab Results 12/25/19 16:06 12/26/19 05:47 Most recent lab results Calcium 9.0 mg/dL (8.4-10.2) 12/26/19 05:47 Assessment and Plan This is a 34 year old man who presents with abdominal pain after eating fried chicken. # ESRD: HD today for hyperkalemia, volume. Thereafter, continue HD MWF per outpatient - daily labs - renally dose meds - avoid nephrotoxins - renal diet # Anemia: last hemoglobin 9.0, continue ESAs with HD # HTN: UF as tolerated. BP high. # Secondary Hyperparathyroidism: continue home binders as needed # N/V/Abdominal Pain
[2019-12-26] MEDS ORDERED: hydrALAZINE 20 MG/1 ML INJ IM PRN (21:59)
[2019-12-27] MEDS: hydrALAZINE 25 MG TAB PO SCH ×2 (00:16→05:53)
[2019-12-27] MEDS: METOPROLOL TARTRATE 5 MG/5 ML INJ IV SCH ×6 (00:17→22:26)
[2019-12-27] MEDS: FUROSEMIDE 40 MG TAB PO SCH ×3 (00:17→22:27)
[2019-12-27] MEDS: METOCLOPRAMIDE 10 MG/2 ML INJ IV SCH ×6 (00:17→22:27)
[2019-12-27] MEDS: DICYCLOMINE 10 MG CAP PO SCH ×5 (00:17→22:27)
[2019-12-27] MEDS ORDERED: PROMETHAZINE 25 MG RECT SUPP PR PRN (01:11)
[2019-12-27] MEDS: HEPARIN 5,000 UNIT/1 ML VIAL SUB-Q SCH ×3 (01:35→22:27)
--- NOTE | 2019-12-27 02:07 | Consultation ---
REFERRING PHYSICIAN: Carl Barr MD INDICATION: Nausea, vomiting. HISTORY OF PRESENT ILLNESS: The patient is a 34-year-old black male with history of end-stage renal disease, on dialysis as well as insulin-dependent diabetes and hypertension now being seen for nausea and vomiting. The patient reports 1 day of profuse nausea, vomiting, and inability to keep p.o. down. He reports this started after eating undercooked food. He reports some bloody streaks. He reports no hematemesis. He denies any melena. He denies any other specific GI complaints. The patient subsequently was admitted and GI consulted. PAST MEDICAL HISTORY: 1. Hypertension. 2. Diabetes. 3. End-stage renal disease. MEDICATIONS: Reviewed and updated in chart. ALLERGIES: No known drug allergies. SOCIAL HISTORY: Denies alcohol, tobacco, or drug abuse. FAMILY HISTORY: Negative for colon cancer, IBD, or liver disease. REVIEW OF SYSTEMS: GENERAL: Reports mild weakness. HEENT: No visual complaints or tinnitus. PULMONARY: No shortness of breath. No cough. No chest pain. GASTROINTESTINAL: Reports some nausea and vomiting. All points of 13-point review of systems otherwise negative. PHYSICAL EXAMINATION: VITAL SIGNS: Temperature of 99.0, pulse 100, respirations 20, blood pressure 188/90. GENERAL: Fairly nourished male, in no acute distress. HEENT: Pupils equal, round, reactive. PULMONARY: Rhonchi. CARDIOVASCULAR: Regular rhythm. Normal S1, S2. ABDOMEN: Positive bowel sounds, soft. SKIN: No obvious rashes. LABORATORY DATA: Pertinent for a white count of 7.5, hemoglobin and hematocrit of 9 and 27.8, platelet count of 448. Chem-7 pertinent for potassium of 5.8. LFTs within normal limits. CT scan of abdomen and pelvis with contrast on 12/25/2019 showed no significant GI pathology. ASSESSMENT: A 34-year-old male with history of diabetes, end-stage renal disease, presents with acute nausea, vomiting. Possibility of gastroenteritis versus gastroparesis versus other. PLAN: 1. We will review a CT scan. 2. Agree with advance diet to full liquid and advance as tolerated. 3. Electrolyte management per primary team. 4. No plans for EGD at this time, but we will consider based on progress. We will also consider further workup for gastroparesis. 5. If tolerating p.o. and stable in a.m., okay to discharge from GI standpoint. 6. We will follow. JOB# [id number] CAB/NTS
[2019-12-27] MEDS: ONDANSETRON 4 MG/2 ML INJ IV PRN ×2 (03:42→09:12)
[2019-12-27] MEDS: hydrALAZINE 20 MG/1 ML INJ IV PRN (05:50)
[2019-12-27] MEDS: PANTOPRAZOLE 40 MG INJ IV SCH (09:12)
[2019-12-27] MEDS: LISINOPRIL 5 MG TAB PO SCH (11:09)
[2019-12-27] MEDS: hydrALAZINE 20 MG/1 ML INJ IV SCH ×2 (13:29→18:19)
--- NOTE | 2019-12-27 15:40 | Gastroenterology Progress Note ---
Assessment and Plan GI: pt h/o poorly controlled DM and reported diagnosed gastroparesis at [facility] w/ last EGD reportedly benign there 3 months ago now with nausea, vomiting - symptoms suggest gastropareiss - reports only mild improvement in symptoms at this time - continue full liquid diet, advance based on progress - Reglan qid (pt reports taking this as outpt) - no plans EGD at this time - DM and other issues per primary - ok to d/c when tolerating soft diet - will follow Subjective Date of service: 12/27/19 Interval history: - reports still with nausea, does not want diet advanced Objective - Constitutional Vitals: Temp Pulse Resp BP Pulse Ox 98.8 F 95 H 18 156/87 98 12/27/19 08:57 12/27/19 10:00 12/27/19 08:57 12/27/19 13:29 12/27/19 12:25 General appearance: no acute distress - EENT Eyes: PERRL - Respiratory Respiratory: bilateral: CTA - Cardiovascular Rhythm: regular Heart Sounds: Present: S1 & S2 - Gastrointestinal General gastrointestinal: Present: soft, non-tender, non-distended - Labs CBC & Chem 7: 12/25/19 16:06 12/26/19 05:47 Labs: Laboratory Results - last 24 hr 12/26/19 12/27/19 12/27/19 16:53 00:35 06:00 POC Glucose 147 H 179 H 198 H 12/27/19 11:43 POC Glucose 208 H
[2019-12-27] MEDS ORDERED: SODIUM CHLORIDE 0.9% 100 ML IV PRN (16:43)
--- NOTE | 2019-12-27 16:43 | Progress Note ---
Assessment and Plan This is a 34 year old man who presents with abdominal pain after eating fried chicken. # ESRD: HD yesterday on admission for hyperkalemia, volume. Thereafter, continue HD MWF per outpatient, due tomorrow - daily labs - renally dose meds - avoid nephrotoxins - renal diet # Anemia: last hemoglobin 9.0, continue ESAs with HD # HTN: UF as tolerated. BP high but improving # Secondary Hyperparathyroidism: continue home binders as needed # N/V/Abdominal Pain: appreciate GI Subjective Date of service: 12/27/19 Interval history: No acute events noted. Abdominal pain improving. Toelrated HD well yesterday. Objective - Exam Narrative Exam: Constitutional: no acute distress Head: NC/AT Neck: supple Lungs: clear to auscultation CV: RRR, no M/R/G Abdomen: soft, non-tender, bowel sounds present Back: nontender Extremities: no edema, pulses WNL Skin: intact Neuro: no focal deficits, alert and oriented x4 - Vital Sign Vital Signs - 12hr 12/27/19 12/27/19 12/27/19 08:57 10:00 12:25 Temperature 98.8 F Pulse Rate 96 H 95 H Respiratory 18 Rate Blood Pressure 154/87 O2 Sat by Pulse 99 98 Oximetry 12/27/19 13:29 Temperature Pulse Rate Respiratory Rate Blood Pressure 156/87 O2 Sat by Pulse Oximetry - Laboratory Findings CBC and BMP: 12/25/19 16:06 12/26/19 05:47 Abnormal Lab Findings: Abnormal Labs 12/25/19 12/25/19 12/25/19 16:06 16:06 18:03 RBC 3.29 L Hgb 9.0 L Hct 27.8 L RDW 16.5 H Plt Count 448 H Milam % (Auto) 9.2 H Baso % (Auto) 2.9 H Baso # 0.2 H Potassium 5.8 H 5.8 H BUN 39 H Creatinine 8.4 H Glucose 143 H POC Glucose Albumin 3.2 L 12/25/19 12/25/19 12/26/19 19:10 20:41 05:44 RBC Hgb Hct RDW Plt Count Milam % (Auto) Baso % (Auto) Baso # Potassium BUN Creatinine Glucose POC Glucose 135 H 146 H 118 H Albumin 12/26/19 12/26/19 12/26/19 05:47 13:02 16:53 RBC Hgb Hct RDW Plt Count Milam % (Auto) Baso % (Auto) Baso # Potassium BUN 45 H Creatinine 9.3 H Glucose 138 H POC Glucose 168 H 147 H Albumin 12/27/19 12/27/19 12/27/19 00:35 06:00 11:43 RBC Hgb Hct RDW Plt Count Milam % (Auto) Baso % (Auto) Baso # Potassium BUN Creatinine Glucose POC Glucose 179 H 198 H 208 H Albumin
--- NOTE | 2019-12-27 22:50 | Progress Note ---
Hospitalist Physical - Constitutional Vitals: Temp Pulse Resp BP Pulse Ox 98.7 F 76 18 167/95 98 12/27/19 20:25 12/27/19 22:27 12/27/19 21:44 12/27/19 22:27 12/27/19 21:44 General appearance: Present: no acute distress, well-nourished Results - Labs CBC & Chem 7: 12/25/19 16:06 12/26/19 05:47 Labs: Laboratory Last Values WBC 7.5 K/mm3 (4.5-11.0) 12/25/19 16:06 RBC 3.29 M/mm3 (3.65-5.03) L 12/25/19 16:06 Hgb 9.0 gm/dl (11.8-15.2) L 12/25/19 16:06 Hct 27.8 % (35.5-45.6) L 12/25/19 16:06 MCV 85 fl (84-94) 12/25/19 16:06 MCH 28 pg (28-32) 12/25/19 16:06 MCHC 33 % (32-34) 12/25/19 16:06 RDW 16.5 % (13.2-15.2) H 12/25/19 16:06 Plt Count 448 K/mm3 (140-440) H 12/25/19 16:06 Lymph % (Auto) 18.9 % (13.4-35.0) 12/25/19 16:06 Daniels % (Auto) 9.2 % (0.0-7.3) H 12/25/19 16:06 Eos % (Auto) 1.3 % (0.0-4.3) 12/25/19 16:06 Baso % (Auto) 2.9 % (0.0-1.8) H 12/25/19 16:06 Lymph # 1.4 K/mm3 (1.2-5.4) 12/25/19 16:06 Daniels # 0.7 K/mm3 (0.0-0.8) 12/25/19 16:06 Eos # 0.1 K/mm3 (0.0-0.4) 12/25/19 16:06 Baso # 0.2 K/mm3 (0.0-0.1) H 12/25/19 16:06 Seg Neutrophils % 67.7 % (40.0-70.0) 12/25/19 16:06 Seg Neutrophils # 5.1 K/mm3 (1.8-7.7) 12/25/19 16:06 PT 12.8 Sec. (12.2-14.9) 12/25/19 17:59 INR 0.95 (0.87-1.13) 12/25/19 17:59 Sodium 145 mmol/L (137-145) 12/26/19 05:47 Potassium 4.9 mmol/L (3.6-5.0) 12/26/19 05:47 Chloride 106.2 mmol/L (98-107) 12/26/19 05:47 Carbon Dioxide 23 mmol/L (22-30) 12/26/19 05:47 Anion Gap 21 mmol/L 12/26/19 05:47 BUN 45 mg/dL (9-20) H 12/26/19 05:47 Creatinine 9.3 mg/dL (0.8-1.5) H 12/26/19 05:47 Estimated GFR 8 ml/min 12/26/19 05:47 BUN/Creatinine Ratio 5 % 12/26/19 05:47 Glucose 138 mg/dL (75-100) H 12/26/19 05:47 POC Glucose 208 (70-105) H 12/27/19 11:43 Calcium 9.0 mg/dL (8.4-10.2) 12/26/19 05:47 Total Bilirubin 0.30 mg/dL (0.1-1.2) 12/25/19 16:06 Direct Bilirubin < 0.2 mg/dL (0-0.2) 12/25/19 16:06 Indirect Bilirubin 0.1 mg/dL 12/25/19 16:06 AST 29 units/L (5-40) 12/25/19 16:06 ALT 15 units/L (7-56) 12/25/19 16:06 Alkaline Phosphatase 80 units/L (35-129) 12/25/19 16:06 Total Protein 6.5 g/dL (6.3-8.2) 12/25/19 16:06 Albumin 3.2 g/dL (3.9-5) L 12/25/19 16:06 Albumin/Globulin Ratio 1.0 % 12/25/19 16:06 Lipase 45 units/L (13-60) 12/25/19 16:06 Hepatitis A IgM Ab Non-reactive (NonReactive) 12/26/19 09:20 Hep Bs Antigen Non-reactive (Negative) 12/26/19 09:20 Hep B Core IgM Ab Non-reactive (NonReactive) 12/26/19 09:20 Hepatitis C Antibody Non-reactive (NonReactive) 12/26/19 09:20 Active Medications - Current Medications Current Medications: Generic Name Dose Route Start Last Admin Trade Name Freq PRN Reason Stop Dose Admin Acetaminophen 650 mg 12/25/19 21:38 Tylenol PO Q4H PRN Pain MILD(1-3)/Fever >100.5/LANZA Albuterol 2.5 mg 12/25/19 21:38 Proventil IH Q4HRT PRN Shortness Of Breath Clonidine HCl 0.3 mg 12/25/19 10:00 12/26/19 01:08 Catapres-Tts Patch TD 0.3 mg QWEEK [facility] Administration Dextrose 50 ml 12/25/19 21:54 D50w (25gm) Syringe IV Q30MIN PRN Hypoglycemia Protocol Dicyclomine HCl 10 mg 12/26/19 14:00 12/27/19 22:27 Bentyl PO 10 mg QID [facility] Administration Furosemide 40 mg 12/26/19 14:00 12/27/19 22:27 Lasix PO 40 mg BID KESHIA Administration Heparin Sodium (Porcine) 5,000 unit 12/25/19 22:00 12/27/19 22:27 Heparin SUB-Q 5,000 unit Q12HR [facility] Administration Hydralazine HCl 20 mg 12/26/19 15:10 12/27/19 05:50 Apresoline IV 20 mg Q4HR PRN Administration SBP>160 or DBP>110 Hydralazine HCl 10 mg 12/27/19 12:00 12/27/19 18:19 Apresoline IV Not Given Q6H KESHIA Sodium Chloride 100 mls @ 999 mls/hr 12/25/19 21:24 12/26/19 11:35 Nacl 0.9% IV 999 mls/hr BRENDAN PRN Administration Hypotension Sodium Chloride 100 mls @ 999 mls/hr 12/26/19 09:18 Nacl 0.9% IV BRENDAN PRN Hypotension Sodium Chloride 100 mls @ 999 mls/hr 12/27/19 16:43 Nacl 0.9% IV BRENDAN PRN Hypotension Labetalol HCl 100 mg 12/26/19 22:00 12/27/19 22:27 Labetalol PO 100 mg BID K[facility]IA Administration Lisinopril 5 mg 12/26/19 14:00 12/27/19 11:09 Zestril PO 5 mg DAILY [facility] Administration Metoclopramide HCl 10 mg 12/26/19 16:30 12/27/19 22:27 Reglan IV 10 mg ACHS KESHIA Administration Metoprolol Tartrate 5 mg 12/26/19 16:00 12/27/19 22:26 Metoprolol IV 5 mg Q6H K[facility] Administration Ondansetron HCl 4 mg 12/25/19 21:38 12/27/19 09:12 Zofran IV 4 mg Q6H PRN Administration Nausea And Vomiting Pantoprazole Sodium 40 mg 12/26/19 10:00 12/27/19 09:12 Protonix IV 40 mg DAILY KESHIA Administration Promethazine HCl 25 mg 12/27/19 01:11 Phenergan [place] Q6H PRN Nausea And Vomiting Sodium Chloride 10 ml 12/25/19 22:00 12/27/19 22:27 Sodium Chloride Flush Syringe 10 Ml IV 10 ml BID KESHIA Administration Sodium Chloride 10 ml 12/25/19 21:38 Sodium Chloride Flush Syringe 10 Ml IV PRN PRN LINE FLUSH Nutrition/Malnutrition Assess - Dietary Evaluation Nutrition/Malnutrition Findings: Nutrition Notes Start: 12/27/19 12:04 Freq: Status: Active Protocol: Document 12/27/19 12:04 AMARILIS (Rec: 12/27/19 12:14 [id number]) Nutrition Notes Need for Assessment generated from: MD Order Initial or Follow up Brief Note Current Diagnosis CKD (stage V CKD),Diabetes, Hypertension Other Pertinent Diagnosis ESRD, gastroparesis Current Diet full liquid Subjective/Other Information MD consult for diet education. RD provided education on consistent CHO diet, and gastroparesis. RD encouraged pt to consume small frequent meals in order to stabalize blood sugar and reduce amount of food in GI tract at one time. RD also discussed CHO servings, meal planning and label reading. GI Symptoms Nausea,Vomiting #1 Nutrition Diagnosis Food and nutrition-related knowledge deficit Etiology No prior knowledge on consistent CHO diet or gastroparesis diet As Evidenced by Signs and Symptoms Pt having many questions about consistent CHO diet, POC BG of 198, N/V 2/2 gastroparesis Nutrition Intervention Teaching Recipient Patient Learning Readiness Good Teaching Methods Discussion,Handout Response to Teaching Verbalize understanding Education Handouts Provided Carbohydrate Counting for People with Diabetes, Using the Food Label: Carbohydrates, MNT for Gsstroparesis Barriers to Learning Physical,Age related RD phone number provided Yes Patient aware of follow up options Yes Anticipated Discharge Needs: consistent CHO diet with small , frequent meals Revisit per MD consult or patient Sign Off request:
[2019-12-28] MEDS: hydrALAZINE 20 MG/1 ML INJ IV SCH ×4 (00:23→17:05)
[2019-12-28] MEDS: METOPROLOL TARTRATE 5 MG/5 ML INJ IV SCH ×2 (05:33→09:24)
[2019-12-28] MEDS: METOCLOPRAMIDE 10 MG/2 ML INJ IV SCH ×3 (08:06→17:05)
[2019-12-28] MEDS: DICYCLOMINE 10 MG CAP PO SCH ×3 (09:24→17:05)
[2019-12-28] MEDS: LISINOPRIL 5 MG TAB PO SCH (09:24)
[2019-12-28] MEDS: FUROSEMIDE 40 MG TAB PO SCH (09:24)
[2019-12-28] MEDS: PANTOPRAZOLE 40 MG INJ IV SCH (09:25)
[2019-12-28] MEDS: HEPARIN 5,000 UNIT/1 ML VIAL SUB-Q SCH (09:25)
[2019-12-28] MEDS ORDERED: SODIUM CHLORIDE*PRIMING MACHINE ONLY FOR DIALYSIS MC ONE (11:24)
[2019-12-28] MEDS: hydrALAZINE 20 MG/1 ML INJ IV PRN ×2 (12:45→16:07)
[2019-12-28] MEDS ORDERED: amLODIPine 5 MG TAB PO SCH (13:00)
--- NOTE | 2019-12-28 14:14 | Gastroenterology Progress Note ---
Assessment and Plan 1.recurrent N/V 2.anemia-chronic 3.epigastric pain-chronic -LFTs and lipase WNL -abd CT 12/25/19 w/o acute process -H/H 9.0/27.8-stable compared to prior labs; monitor/transfuse as needed -no active signs of bleeding -s/p multiple prior EGDs (x 2 2018) for similar symptoms showing ulcerative esophagitis -etiology- multifactorial (gastroparesis, electrolyte abnormalities with dialysis, possible functional component, and marijuana use) -clinically, patient reports feeling better no further episodes of vomiting. Denies abd pain. -no plan for repeat EGD at this time -advance diet as tolerated- gastroparesis diet with small frequent meals -chronic PPI -avoid narcotics for this may exacerbate symptoms -consider low dose/short term Ativan if N/V persists -optimize glycemic control -continue substance (marijuana) cessation encouraged -continue supportive care -once tolerating PO, okay to be d/c per GI standpoint. Will sign off. Please call back if needed 4.DM 5.ESRD 6.noncompliance Subjective Date of service: 12/28/19 Principal diagnosis: N/V Interval history: No acute distress. N/V resolved with no further episodes of vomiting. No signs of bleeding. Objective - Constitutional Vitals: Temp Pulse Resp BP Pulse Ox 98.2 F 75 18 211/115 98 12/28/19 09:45 12/28/19 12:45 12/28/19 10:00 12/28/19 12:45 12/28/19 10:00 General appearance: no acute distress - EENT Eyes: PERRL, EOM intact ENT: hearing intact - Respiratory Respiratory effort: normal Respiratory: bilateral: diminished - Cardiovascular Rhythm: regular - Gastrointestinal General gastrointestinal: Present: soft, non-tender, non-distended, normal bowel sounds - Neurologic Neurological: alert and oriented x3 - Labs CBC & Chem 7: 12/25/19 16:06 12/26/19 05:47 Labs: Laboratory Results - last 24 hr 12/28/19 12/28/19 00:11 05:20 POC Glucose 203 H 163 H
--- NOTE | 2019-12-28 15:54 | Discharge Summary ---
Providers - Providers Date of Admission: 12/27/19 15:40 Date of discharge: 12/28/19 Attending physician: GAIL PERRY 12/25/19 21:08 Consult to Physician [CONS] Urgent Comment: Consulting Provider: LEN ULRICH Physician Instructions: Reason For Exam: esrd, hyperkalemia, needing dialysis 12/25/19 21:54 Consult to Dietitian/Nutrition [CONS] Routine Physician Instructions: Reason For Exam: Reason for Consult: Diet education 12/25/19 21:59 Consult to Physician [CONS] Routine Comment: Consulting Provider: LEN ULRICH Physician Instructions: Reason For Exam: ESRD 12/26/19 07:49 Consult to Physician [CONS] Routine Comment: Consulting Provider: AYO MILLS Physician Instructions: Reason For Exam: nausea,vomiting Primary care physician: RAILROAD COOK Hospitalization Condition: Fair Disposition: DC-01 TO HOME OR SELFCARE Core Measure Documentation - Palliative Care Palliative Care/ Comfort Measures: Not Applicable Exam - Constitutional Vitals: Temp Pulse Resp BP Pulse Ox 98.0 F 79 20 152/92 98 12/28/19 13:30 12/28/19 14:26 12/28/19 13:30 12/28/19 14:26 12/28/19 10:00 Plan Activity: no restrictions Diet: low fat, low cholesterol, low salt, diabetic, renal Plan of Treatment: 1.Follow up with PCP in 1 week. 2.Follow up with KARY Tate in 1 week 3.Continue hemodialysis as scheduled Follow up with: PRIMARY CAREMD [Primary Care Provider] - 7 Days
[2019-12-28 16:08] VITALS: BP 174/94
--- NOTE | 2019-12-28 16:30 | Progress Note ---
Assessment and Plan - Patient Problems (1) End stage renal disease Current Visit: Yes Status: Acute Plan to address problem: End-stage renal disease on dialysis continue dialysis Saturday Access right IJ PermCath Ultrafiltration 2 to 3 L (2) Intractable nausea and vomiting Current Visit: Yes Status: Acute Plan to address problem: Intractable nausea and vomiting gastroenterology on board Continue antiemetics (3) Uncontrolled hypertension Current Visit: Yes Status: Acute Plan to address problem: Uncontrolled hypertension Continue medications Optimize volume status with dialysis (4) Insulin dependent diabetes mellitus Current Visit: Yes Status: Chronic Plan to address problem: Diabetes uncontrolled Monitor fingersticks Continue medications Subjective Principal diagnosis: N/V Interval history: 34-year-old with end-stage renal disease on hemodialysis Saturday with recurrence nausea and vomiting admitted for the same I attest I saw the patient dialysis Denies any orthopnea or PND No fevers or chills Still has some nausea Objective - Vital Signs Vital signs: Vital Signs - 12hr 12/28/19 12/28/19 12/28/19 04:37 05:33 09:24 Temperature 98.2 F Pulse Rate 75 75 76 Pulse Rate [ Apical] Pulse Rate [ Left Radial] Pulse Rate [ Right Radial] Respiratory 18 Rate Blood Pressure 172/95 172/95 166/95 O2 Sat by Pulse 96 Oximetry 12/28/19 12/28/19 12/28/19 09:45 10:00 10:15 Temperature 98.2 F Pulse Rate 73 75 75 Pulse Rate [ 85 Apical] Pulse Rate [ 85 Left Radial] Pulse Rate [ 85 Right Radial] Respiratory 18 18 Rate Blood Pressure 182/100 175/91 178/99 O2 Sat by Pulse 98 Oximetry 12/28/19 12/28/19 12/28/19 10:30 10:45 11:00 Temperature Pulse Rate 73 74 73 Pulse Rate [ Apical] Pulse Rate [ Left Radial] Pulse Rate [ Right Radial] Respiratory Rate Blood Pressure 177/93 182/90 173/88 O2 Sat by Pulse Oximetry 12/28/19 12/28/19 12/28/19 11:15 11:30 11:45 Temperature Pulse Rate 74 75 73 Pulse Rate [ Apical] Pulse Rate [ Left Radial] Pulse Rate [ Right Radial] Respiratory Rate Blood Pressure 183/91 188/95 189/97 O2 Sat by Pulse Oximetry 12/28/19 12/28/19 12/28/19 12:00 12:15 12:30 Temperature Pulse Rate 73 76 74 Pulse Rate [ Apical] Pulse Rate [ Left Radial] Pulse Rate [ Right Radial] Respiratory Rate Blood Pressure 189/97 187/92 184/90 O2 Sat by Pulse Oximetry 12/28/19 12/28/19 12/28/19 12:45 13:00 13:15 Temperature Pulse Rate 75 74 74 Pulse Rate [ Apical] Pulse Rate [ Left Radial] Pulse Rate [ Right Radial] Respiratory Rate Blood Pressure 211/115 190/100 190/88 O2 Sat by Pulse Oximetry 12/28/19 12/28/19 12/28/19 13:30 14:25 14:26 Temperature 98.0 F Pulse Rate 78 79 79 Pulse Rate [ Apical] Pulse Rate [ Left Radial] Pulse Rate [ Right Radial] Respiratory 20 Rate Blood Pressure 191/105 157/92 152/92 O2 Sat by Pulse Oximetry 12/28/19 16:07 Temperature Pulse Rate 78 Pulse Rate [ Apical] Pulse Rate [ Left Radial] Pulse Rate [ Right Radial] Respiratory Rate Blood Pressure 174/94 O2 Sat by Pulse Oximetry - General Appearance General appearance: well-developed, well-nourished EENT: ATNC, PERRL Neck: no JVD Respiratory: Present: Clear to Ascultation Cardiology: regular, S1S2 Gastrointestinal: normal, normoactive bowel sounds Integumentary: no rash Neurologic: alert and oriented x3, CN 3-12 intact Psychiatric: mood/affect appropriate - Lab 12/25/19 16:06 12/26/19 05:47 Most recent lab results Calcium 9.0 mg/dL (8.4-10.2) 12/26/19 05:47 - Imaging CT scan - abdomen: other (CT with evidence of ascites seen) Medications & Allergies - Medications Allergies/Adverse Reactions: Allergies No Known Allergies Allergy (Verified 11/21/18 17:51) Home Medications: Home Medications Medication Instructions Recorded Confirmed Last Taken Type amLODIPine 5 mg PO DAILY 11/20/19 12/26/19 Unknown History Lispro Insulin [HumaLOG] 0 unit SQ TID 11/30/19 12/26/19 Unknown History Ondansetron [Zofran ODT TAB] 4 mg PO Q8HR #10 tab.rapdis 12/02/19 12/28/19 Unknown Rx hydrALAZINE [Apresoline TAB] 25 mg PO Q8HR 30 Days #90 tablet 12/02/19 12/26/19 Unknown Rx Dicyclomine [Bentyl] 10 mg PO QID #30 capsule 12/07/19 12/26/19 Unknown Rx Albuterol Sulfate [Albuterol 0.63% 0.63 mg IH Q4HR PRN 12/26/19 12/26/19 Unknown History NEBS] Furosemide [Lasix TAB] 40 mg PO BID 12/26/19 12/26/19 Unknown History Metoclopramide [Reglan TAB] 10 mg PO QID 12/26/19 12/26/19 Unknown History Pantoprazole [Protonix TAB] 40 mg PO QDAY 12/26/19 12/26/19 Unknown History carvediloL [Coreg] 25 mg PO TID 12/26/19 12/28/19 Unknown History labetaloL [Labetalol 200mg TAB] 100 mg PO BID 12/26/19 12/26/19 Unknown History lisinopriL [Zestril TAB] 5 mg PO DAILY 12/26/19 12/26/19 Unknown History Active Medications: Generic Name Dose Route Start Last Admin Trade Name Freq PRN Reason Stop Dose Admin Acetaminophen 650 mg 12/25/19 21:38 Tylenol PO Q4H PRN Pain MILD(1-3)/Fever >100.5/LANZA Albuterol 2.5 mg 12/25/19 21:38 Proventil IH Q4HRT PRN Shortness Of Breath Amlodipine Besylate 5 mg 12/28/19 13:00 12/28/19 14:25 Amlodipine PO 5 mg QDAY KESHIA Administration Clonidine HCl 0.3 mg 12/25/19 10:00 12/26/19 01:08 Catapres-Tts Patch TD 0.3 mg QWEEK KESHIA Administration Dextrose 50 ml 12/25/19 21:54 D50w (25gm) Syringe IV Q30MIN PRN Hypoglycemia Protocol Dicyclomine HCl 10 mg 12/26/19 14:00 12/28/19 14:25 Bentyl PO 10 mg QID KESHIA Administration Furosemide 40 mg 12/26/19 14:00 12/28/19 09:24 Lasix PO 40 mg BID KESHIA Administration Heparin Sodium (Porcine) 5,000 unit 12/25/19 22:00 12/28/19 09:25 Heparin SUB-Q 5,000 unit Q12HR KESHIA Administration Hydralazine HCl 20 mg 12/26/19 15:10 12/28/19 16:07 Apresoline IV 20 mg Q4HR PRN Administration SBP>160 or DBP>110 Hydralazine HCl 10 mg 12/27/19 12:00 12/28/19 14:26 Apresoline IV 10 mg Q6H KESHIA Administration Sodium Chloride 100 mls @ 999 mls/hr 12/25/19 21:24 12/26/19 11:35 Nacl 0.9% IV 999 mls/hr BRENDAN PRN Administration Hypotension Sodium Chloride 100 mls @ 999 mls/hr 12/26/19 09:18 Nacl 0.9% IV BRENDAN PRN Hypotension Sodium Chloride 100 mls @ 999 mls/hr 12/27/19 16:43 Nacl 0.9% IV BRENDAN PRN Hypotension Labetalol HCl 100 mg 12/26/19 22:00 12/28/19 09:24 Labetalol PO 100 mg BID KESHIA Administration Lisinopril 5 mg 12/26/19 14:00 12/28/19 09:24 Zestril PO 5 mg DAILY KESHIA Administration Metoclopramide HCl 10 mg 12/26/19 16:30 12/28/19 14:26 Reglan IV Not Given ACHS KESHIA Ondansetron HCl 4 mg 12/25/19 21:38 12/27/19 09:12 Zofran IV 4 mg Q6H PRN Administration Nausea And Vomiting Pantoprazole Sodium 40 mg 12/26/19 10:00 12/28/19 09:25 Protonix IV 40 mg DAILY KESHIA Administration Promethazine HCl 25 mg 12/27/19 01:11 Phenergan NV Q6H PRN Nausea And Vomiting Sodium Chloride 10 ml 12/25/19 22:00 12/28/19 09:27 Sodium Chloride Flush Syringe 10 Ml IV 10 ml BID KESHIA Administration Sodium Chloride 10 ml 12/25/19 21:38 Sodium Chloride Flush Syringe 10 Ml IV PRN PRN LINE FLUSH
== END 2019-12-28 18:29 | disposition home or self-care (01) | DRG 73 ==
LOC: ED 15:07 → 4A 21:33 → OBSVTOIN 12-27 15:40
PROVIDERS: ADMIT Internal Medicine; ATTEND Internal Medicine
PROC: 5A1D70Z Performance of Urinary Filtration, Intermittent, Less than 6 Hours Per Day (ICD-10-PCS; principal; 2019-12-26)
PROC: 5A1D70Z Performance of Urinary Filtration, Intermittent, Less than 6 Hours Per Day (ICD-10-PCS; 2019-12-28)
DX: E11.43 Type 2 diabetes mellitus with diabetic autonomic (poly)neuropathy (principal); N18.6 End stage renal disease; K31.84 Gastroparesis; E87.5 Hyperkalemia; I12.0 Hypertensive chronic kidney disease with stage 5 chronic kidney disease or end stage renal disease; D64.9 Anemia, unspecified; E11.22 Type 2 diabetes mellitus with diabetic chronic kidney disease; N25.81 Secondary hyperparathyroidism of renal origin; I16.0 Hypertensive urgency; J45.909 Unspecified asthma, uncomplicated; Z99.2 Dependence on renal dialysis; Z91.14 Patient's other noncompliance with medication regimen; Z79.4 Long term (current) use of insulin; Z82.49 Family history of ischemic heart disease and other diseases of the circulatory system; Z79.899 Other long term (current) drug therapy; Z90.49 Acquired absence of other specified parts of digestive tract
CPT/HCPCS: 36415; 74176; 80048; 80074; 80076; 82962; 83690; 84132; 85025; 85610; 94644; G0378; C9113; J0360; J0610; J1200; J1644; J1815; J2405; J2765; J7030

== ENCOUNTER 2020-01-12 16:49 | Inpatient (IN) | payer MEDICAID ==
[2020-01-12] MEDS ORDERED: SODIUM CHLORIDE 0.9% 1000 ML 1,000 ML IV ONE (19:03)
[2020-01-12] MEDS ORDERED: ONDANSETRON 4 MG/2 ML INJ IV ONE (19:03)
[2020-01-12] MEDS ORDERED: PANTOPRAZOLE 40 MG INJ IV ONE (19:04)
[2020-01-12 20:05] LABS: Basophils # (Auto) 0.2 K/mm3 (0.0-0.1); Basophils % (Auto) 1.3 % (0.0-1.8); Eosinophils % (Auto) 0.1 % (0.0-4.3); Hemoglobin 9.5 gm/dl (11.8-15.2); Lymphocytes # (Auto) 0.9 K/mm3 (1.2-5.4); Lymphocytes % (Auto) 6.9 % (13.4-35.0); Mean Corpuscular HGB Conc 34 % (32-34); Mean Corpuscular Volume 82 fl (84-94); Monocytes # (Auto) 1.1 K/mm3 (0.0-0.8); Monocytes % (Auto) 8.4 % (0.0-7.3); Platelet Count 468 K/mm3 (140-440); Red Blood Count 3.41 M/mm3 (3.65-5.03); Red Cell Distribution Width 16.2 % (13.2-15.2)
[2020-01-12 20:16] LABS: INR 1.03 (0.87-1.13)
[2020-01-12 20:17] LABS: Partial Thromboplastin Time 37.5 Sec. (24.2-36.6)
[2020-01-12] MEDS ORDERED: ZIPRASIDONE MESYLATE 20 MG VIAL IM ONE ×2 (20:23→23:04)
[2020-01-12] MEDS ORDERED: WATER FOR INJ Sterile (PF) 10 ML ONE (20:24)
[2020-01-12 20:31] LABS: Albumin 3.6 g/dL (3.9-5); Calcium 9.6 mg/dL (8.4-10.2)
[2020-01-12] MEDS ORDERED: METOCLOPRAMIDE 10 MG/2 ML INJ IV ONE (21:40)
--- NOTE | 2020-01-12 21:57 | Emergency Department Report ---
ED General Adult HPI - General Chief complaint: GI Bleed Stated complaint: VOMITING X2DAYS Time Seen by Provider: 01/12/20 19:03 Source: patient Mode of arrival: Ambulatory Limitations: No Limitations - History of Present Illness Initial comments: Patient is a 34-year-old F Maced[place] male with a past medical history of end- stage renal disease diabetes and hypertension who also has recently been having episodes of coffee-ground emesis secondary to the ulcerative esophagitis likely secondary to chronic gastroparesis who is presenting with nausea vomiting. Patient states he has been having nausea vomiting that appears to be bloody for the last 2 days. Patient missed dialysis yesterday secondary to not feeling well. Patient denies fever diarrhea cough cold or congestion. Patient is choosing not to speak get rather to shakes his head yes or no. - Related Data Home Medications Medication Instructions Recorded Confirmed Last Taken amLODIPine 5 mg PO DAILY 11/20/19 01/03/20 Unknown Lispro Insulin [HumaLOG] 0 unit SQ TID 11/30/19 01/03/20 01/02/20 Albuterol Sulfate [Albuterol 0.63% 0.63 mg IH Q4HR PRN 12/26/19 01/03/20 Unknown NEBS] Metoclopramide [Reglan TAB] 10 mg PO QID 12/26/19 01/03/20 Unknown Pantoprazole [Protonix TAB] 40 mg PO QDAY 12/26/19 01/04/20 Unknown carvediloL [Coreg] 25 mg PO BID 12/26/19 01/03/20 01/02/20 labetaloL [Labetalol 200mg TAB] 100 mg PO BID 12/26/19 01/03/20 01/02/20 lisinopriL [Zestril TAB] 5 mg PO DAILY 12/26/19 01/03/20 01/02/20 Previous Rx's Medication Instructions Recorded Last Taken Type Ondansetron [Zofran ODT TAB] 4 mg PO Q8HR #10 tab.rapdis 12/02/19 Unknown Rx hydrALAZINE [Apresoline TAB] 25 mg PO Q8HR 30 Days #90 tablet 12/02/19 01/02/20 Rx Dicyclomine [Bentyl] 10 mg PO QID #30 capsule 12/07/19 Unknown Rx Allergies Allergy/AdvReac Type Severity Reaction Status Date / Time No Known Allergies Allergy Verified 11/21/18 17:51 ED Review of Systems ROS: Stated complaint: VOMITING X2DAYS Other details as noted in HPI Comment: All other systems reviewed and negative ED Past Medical Hx - Past Medical History Previous Medical History?: Yes Hx Hypertension: Yes Hx Heart Attack/AMI: No Hx Congestive Heart Failure: Yes Hx Diabetes: Yes Hx Deep Vein Thrombosis: No Hx Sickle Cell Disease: No Hx Asthma: Yes Hx COPD: No Hx HIV: No Additional medical history: Ulcerative esophagitis, Gastroparesis HD MWF - Surgical History Past Surgical History?: Yes Hx Pacemaker: No Hx Internal Defibrillator: No Hx Cholecystectomy: (v,vas) Hx Appendectomy: Yes Additional Surgical History: right great toe removed, Right chest PERMA-CATH - Social History Smoking Status: Never Smoker Substance Use Type: None - Medications Home Medications: Home Medications Medication Instructions Recorded Confirmed Last Taken Type amLODIPine 5 mg PO DAILY 11/20/19 01/03/20 Unknown History Lispro Insulin [HumaLOG] 0 unit SQ TID 11/30/19 01/03/20 01/02/20 History Ondansetron [Zofran ODT TAB] 4 mg PO Q8HR #10 tab.rapdis 12/02/19 01/04/20 Unknown Rx hydrALAZINE [Apresoline TAB] 25 mg PO Q8HR 30 Days #90 tablet 12/02/19 01/03/20 01/02/20 Rx Dicyclomine [Bentyl] 10 mg PO QID #30 capsule 12/07/19 01/04/20 Unknown Rx Albuterol Sulfate [Albuterol 0.63% 0.63 mg IH Q4HR PRN 12/26/19 01/03/20 Unknown History NEBS] Metoclopramide [Reglan TAB] 10 mg PO QID 12/26/19 01/03/20 Unknown History Pantoprazole [Protonix TAB] 40 mg PO QDAY 12/26/19 01/04/20 Unknown History carvediloL [Coreg] 25 mg PO BID 12/26/19 01/03/20 01/02/20 History labetaloL [Labetalol 200mg TAB] 100 mg PO BID 12/26/19 01/03/20 01/02/20 History lisinopriL [Zestril TAB] 5 mg PO DAILY 12/26/19 01/03/2001/02/20 History ED Physical Exam - General Limitations: No Limitations General appearance: alert, in no apparent distress - Head Head exam: Present: atraumatic, normocephalic - Eye Eye exam: Present: normal appearance, PERRL, EOMI - ENT ENT exam: Present: mucous membranes moist - Neck Neck exam: Present: normal inspection - Respiratory Respiratory exam: Present: normal lung sounds bilaterally. Absent: respiratory distress, wheezes, rales, rhonchi - Cardiovascular Cardiovascular Exam: Present: normal rhythm, tachycardia, normal heart sounds. Absent: systolic murmur, diastolic murmur, rubs, gallop - GI/Abdominal GI/Abdominal exam: Present: soft, tenderness (Epigastric), normal bowel sounds. Absent: distended, guarding, rebound - Rectal Rectal exam: Present: deferred - Extremities Exam Extremities exam: Present: normal inspection - Back Exam Back exam: Present: normal inspection - Neurological Exam Neurological exam: Present: alert, oriented X3 - Psychiatric Psychiatric exam: Present: normal mood, flat affect - Skin Skin exam: Present: warm, dry, intact, normal color. Absent: rash ED Course Vital Signs 01/12/20 01/12/20 01/12/20 18:53 20:03 20:05 Temperature 98.9 F Pulse Rate 107 H 107 H 100 H Respiratory 24 18 Rate Blood Pressure 216/123 219/119 Blood Pressure 219/119 [Left] O2 Sat by Pulse 100 100 Oximetry 01/12/20 01/12/20 20:53 21:09 Temperature Pulse Rate 100 H 100 H Respiratory 18 18 Rate Blood Pressure Blood Pressure 191/108 180/93 [Left] O2 Sat by Pulse 97 97 Oximetry ED Medical Decision Making - Lab Data Result diagrams: 01/12/20 19:53 01/12/20 19:53 Lab Results 01/12/20 01/12/20 01/12/20 Range/Units 19:53 19:53 19:53 WBC 13.7 H (4.5-11.0) K/mm3 RBC 3.41 L (3.65-5.03) M/mm3 Hgb 9.5 L (11.8-15.2) gm/dl Hct 28.0 L (35.5-45.6) % MCV 82 L (84-94) fl MCH 28 (28-32) pg MCHC 34 (32-34) % RDW 16.2 H (13.2-15.2) % Plt Count 468 H (140-440) K/mm3 Lymph % (Auto) 6.9 L (13.4-35.0) % [place] % (Auto) 8.4 H (0.0-7.3) % Eos % (Auto) 0.1 (0.0-4.3) % Baso % (Auto) 1.3 (0.0-1.8) % Lymph # 0.9 L (1.2-5.4) K/mm3 [place] # 1.1 H (0.0-0.8) K/mm3 Eos # 0.0 (0.0-0.4) K/mm3 Baso # 0.2 H (0.0-0.1) K/mm3 Seg Neutrophils % 83.3 H (40.0-70.0) % Seg Neutrophils # 11.4 H (1.8-7.7) K/mm3 PT 13.6 (12.2-14.9) Sec. INR 1.03 (0.87-1.13) APTT 37.5 H (24.2-36.6) Sec. Sodium 138 (137-145) mmol/L Potassium 5.5 H (3.6-5.0) mmol/L Chloride 94.1 L (98-107) mmol/L Carbon Dioxide 25 (22-30) mmol/L Anion Gap 24 mmol/L BUN 53 H (9-20) mg/dL Creatinine 11.8 H (0.8-1.5) mg/dL Estimated GFR 6 ml/min BUN/Creatinine Ratio 4 % Glucose 320 H (75-100) mg/dL Calcium 9.6 (8.4-10.2) mg/dL Total Bilirubin 0.30 (0.1-1.2) mg/dL AST 20 (5-40) units/L ALT 12 (7-56) units/L Alkaline Phosphatase 100 (35-129) units/L Total Protein 6.9 (6.3-8.2) g/dL Albumin 3.6 L (3.9-5) g/dL Albumin/Globulin Ratio 1.1 % Lipase 40 (13-60) units/L Patient's hemoglobin is stable for this patient. Patient's renal function although worse than the levels from when he was discharged last are within his normal limits historically - Medical Decision Making Patient is a 34-year-old F [place] male who has a longstanding standing history of gastroparesis and now having episodes of coffee-ground emesis. Patient has been scoped twice in 2019. Patient seems to be having these episodes every 10 days or so. This is will be the seventh visit this year for this issue. Patient was given 8 of Zofran as well as Reglan and he is still having nausea vomiting. Patient was started on a Protonix drip. Dr. Santos with nephrology has been consulted and they will see the patient in the morning to dialyze him. Critical care attestation.: If time is entered above; I have spent that time in minutes in the direct care of this critically ill patient, excluding procedure time. ED Disposition Clinical Impression: Intractable nausea and vomiting, Ulcerative esophagitis, Acute on chronic renal insufficiency, Gastroparesis, Acute hyperkalemia, End-stage renal disease needing dialysis Disposition: 09 OP ADMIT IP TO THIS HOSP Is pt being admited?: Yes Does the pt Need Aspirin: No Condition: Stable Referrals: PRIMARY CARE, [Primary Care Provider] - 3-5 Days Time of Disposition: 22:00
[2020-01-12] MEDS: PANTOPRAZOLE 80 MG in SODIUM CHLORIDE 0.9% 100 ML IV SCH (22:23)
[2020-01-12] MEDS ORDERED: hydrALAZINE 20 MG/1 ML INJ IV ONE (23:30)
[2020-01-12] MEDS ORDERED: hydrALAZINE 20 MG/1 ML INJ ONE (23:32)
[2020-01-12] MEDS ORDERED: ACETAMINOPHEN 325 MG TAB PO PRN (23:38)
[2020-01-12] MEDS ORDERED: NALOXONE 0.4 MG/1 ML INJ IV PRN (23:38)
[2020-01-12] MEDS ORDERED: ONDANSETRON 4 MG/2 ML INJ IV PRN (23:38)
[2020-01-12] MEDS ORDERED: DEXTROSE 50% IN WATER (25GM) 50 ML SYRINGE IV PRN (23:38)
[2020-01-12] MEDS ORDERED: MAGNESIUM HYDROXIDE (MOM) ORAL LIQD UDC PO PRN (23:38)
[2020-01-12] MEDS ORDERED: MORPHINE 4 MG/1 ML INJ IV PRN (23:38)
[2020-01-12] MEDS ORDERED: oxyCODONE /ACETAMINOPHEN 5-325MG TAB PO PRN (23:38)
[2020-01-12] MEDS ORDERED: SODIUM POLYSTYRENE 15 GM/60 ML ORAL LIQD PO ONE (23:42)
[2020-01-12] MEDS ORDERED: PROMETHAZINE 25 MG RECT SUPP PR PRN (23:43)
[2020-01-12] MEDS ORDERED: LEVALBUTEROL 0.63 MG/3 ML NEBU IH PRN (23:46)
--- NOTE | 2020-01-12 23:49 | History and Physical Report ---
History of Present Illness Date of examination: 01/12/20 Date of admission: 01/12/20 22:01 Chief complaint: Intractable Nausea and Vomiting History of present illness: 34M with PMH of Recurrent ulcerative Esophagitis, Gastroparesis, DM, ESRD on HD, MWF presents with another bout of profuse Nausea and Vomiting. Pt says it " just comes and goes about every week and a half or so" He says there is not much he can do to prevent or shorten the incident or course. He last had a BM 2 days ago. He also missed HD yesterday and was last dialysed 5 days ago. He denies a ny subternal CP, SOB, rash, syncope or falls. He says his emesis was clear but as the had more and more emesis, it became darker and with some blood. He says sometimes Cannabis helps him with the N/V but he has not smoked in recent days. He makes urine still he reports. In the ED, Dr Santos of Nephrology was consulted. Pt was last hospitalized for the same symptoms from 01/02/20-01/06/20 during which he was managed for Recurrent Ulcerative Esophagitis. He was given Carafate and PPI. Monitoring was done by GI but no procedure was performed as pt stabilized with no sustained signs of active Gi bleed. Past History Past Medical History: diabetes, dialysis, ESRD, other (gastroparesis) Social history: smoking, full code. denies: IV drug use Family history: hypertension Medications and Allergies Allergies Allergy/AdvReac Type Severity Reaction Status Date / Time No Known Allergies Allergy Verified 11/21/18 17:51 Home Medications Medication Instructions Recorded Confirmed Last Taken Type amLODIPine 5 mg PO DAILY 11/20/19 01/12/20 Unknown History Lispro Insulin [HumaLOG] 0 unit SQ TID 11/30/19 01/12/20 01/02/20 History Ondansetron [Zofran ODT TAB] 4 mg PO Q8HR #10 tab.rapdis 12/02/19 01/12/20 Unknown Rx hydrALAZINE [Apresoline TAB] 25 mg PO Q8HR 30 Days #90 tablet 12/02/19 01/12/20 01/02/20 Rx Dicyclomine [Bentyl] 10 mg PO QID #30 capsule 12/07/19 01/12/20 Unknown Rx Albuterol Sulfate [Albuterol 0.63% 0.63 mg IH Q4HR PRN 12/26/19 01/12/20 Unknown History NEBS] Metoclopramide [Reglan TAB] 10 mg PO QID 12/26/19 01/12/20 Unknown History Pantoprazole [Protonix TAB] 40 mg PO QDAY 12/26/19 01/12/20 Unknown History carvediloL [Coreg] 25 mg PO BID 12/26/19 01/12/20 01/02/20 History labetaloL [Labetalol 200mg TAB] 100 mg PO BID 12/26/19 01/12/20 01/02/20 History lisinopriL [Zestril TAB] 5 mg PO DAILY 12/26/19 01/12/20 01/02/20 History Active Meds: Active Medications Acetaminophen (Tylenol) 650 mg PO Q4H PRN PRN Reason: Pain MILD(1-3)/Fever >100.5/LANZA Amlodipine Besylate (Amlodipine) 5 mg PO DAILY KESHIA Bisacodyl (Dulcolax) 10 mg CA ONCE ONE Stop: 01/12/20 23:39 Carvedilol (Coreg) 25 mg PO BID KESHIA Dextrose (D50w (25gm) Syringe) 50 ml IV Q30MIN PRN; Protocol PRN Reason: Hypoglycemia Dicyclomine HCl (Bentyl) 10 mg PO QID KESHIA Hydralazine HCl (Apresoline) 20 mg IV Q4HR PRN PRN Reason: SBP > 170, DBP > 100 Hydralazine HCl (Apresoline) 25 mg PO Q8HR KESHIA Pantoprazole Sodium 80 mg/ (Sodium Chloride) 100 mls @ 10 mls/hr IV DIRECT KESHIA Last Admin: 01/12/20 22:23 Dose: 8 mg/hr, 10 mls/hr Documented by: Insulin Human Lispro (Humalog) 0 unit SUB-Q Q6HR KESHIA; Protocol Labetalol HCl (Labetalol) 100 mg PO BID KESHIA Magnesium Hydroxide (Milk Of Magnesia) 30 ml PO Q4H PRN PRN Reason: Constipation Metoclopramide HCl (Reglan) 10 mg PO QID KESHIA Miscellaneous Medication (Albuterol Sulfate [Albuterol 0.63% Nebs]) 0.63 mg IH Q4HR PRN PRN Reason: Wheezing Morphine Sulfate (Morphine) 2 mg IV Q4H PRN PRN Reason: Pain , Severe (7-10) Naloxone HCl (Naloxone) 0.1 mg IV Q2MIN PRN PRN Reason: Res Rate </= 8 or 02 SAT < 92% Ondansetron HCl (Zofran) 6 mg IV Q6H PRN PRN Reason: Nausea And Vomiting Oxycodone/Acetaminophen (Percocet 5/325) 1 tab PO Q6H PRN PRN Reason: Pain, Moderate (4-6) Promethazine HCl (Phenergan) 25 mg CA Q6H PRN PRN Reason: Nausea And Vomiting Sodium Chloride (Sodium Chloride Flush Syringe 10 Ml) 10 ml IV BID KESHIA Sodium Chloride (Sodium Chloride Flush Syringe 10 Ml) 10 ml IV PRN PRN PRN Reason: LINE FLUSH Sodium Polystyrene Sulfonate (Kionex) 15 gm PO ONCE ONE Stop: 01/12/20 23:43 Sucralfate (Carafate) 1 gm PO Q6HR [facility] Exam - Constitutional Vitals: Temp Pulse Resp BP Pulse Ox 98.9 F 101 H 18 192/101 98 01/12/20 18:53 01/12/20 23:32 01/12/20 23:24 01/12/20 23:32 01/12/20 23:24 General appearance: Present: no acute distress, well-nourished, other (actively vomiting) - EENT Eyes: Present: PERRL ENT: hearing intact, clear oral mucosa - Neck Neck: Present: supple, normal ROM - Respiratory Respiratory effort: normal Respiratory: bilateral: CTA - Cardiovascular Heart Sounds: Present: S1 & S2. Absent: rub, click - Extremities Extremities: pulses symmetrical, No edema Peripheral Pulses: within normal limits - Abdominal General gastrointestinal: Present: soft, non-tender, non-distended, normal bowel sounds Male genitourinary: Present: normal - Integumentary Integumentary: Present: clear, warm, dry - Musculoskeletal Musculoskeletal: gait normal, strength equal bilaterally - Psychiatric Psychiatric: appropriate mood/affect, intact judgment & insight - Neurologic Neurologic: CNII-XII intact, moves all extremities Results - Labs CBC & Chem 7: 01/12/20 19:53 01/12/20 19:53 Labs: Laboratory Last Values WBC 13.7 K/mm3 (4.5-11.0) H 01/12/20 19:53 RBC 3.41 M/mm3 (3.65-5.03) L 01/12/20 19:53 Hgb 9.5 gm/dl (11.8-15.2) L 01/12/20 19:53 Hct 28.0 % (35.5-45.6) L 01/12/20 19:53 MCV 82 fl (84-94) L 01/12/20 19:53 MCH 28 pg (28-32) 01/12/20 19:53 MCHC 34 % (32-34) 01/12/20 19:53 RDW 16.2 % (13.2-15.2) H 01/12/20 19:53 Plt Count 468 K/mm3 (140-440) H 01/12/20 19:53 Lymph % (Auto) 6.9 % (13.4-35.0) L 01/12/20 19:53 [place] % (Auto) 8.4 % (0.0-7.3) H 01/12/20 19:53 Eos % (Auto) 0.1 % (0.0-4.3) 01/12/20 19:53 Baso % (Auto) 1.3 % (0.0-1.8) 01/12/20 19:53 Lymph # 0.9 K/mm3 (1.2-5.4) L 01/12/20 19:53 [place] # 1.1 K/mm3 (0.0-0.8) H 01/12/20 19:53 Eos # 0.0 K/mm3 (0.0-0.4) 01/12/20 19:53 Baso # 0.2 K/mm3 (0.0-0.1) H 01/12/20 19:53 Seg Neutrophils % 83.3 % (40.0-70.0) H 01/12/20 19:53 Seg Neutrophils # 11.4 K/mm3 (1.8-7.7) H 01/12/20 19:53 PT 13.6 Sec. (12.2-14.9) 01/12/20 19:53 INR 1.03 (0.87-1.13) 01/12/20 19:53 APTT 37.5 Sec. (24.2-36.6) H 01/12/20 19:53 Sodium 138 mmol/L (137-145) 01/12/20 19:53 Potassium 5.5 mmol/L (3.6-5.0) H 01/12/20 19:53 Chloride 94.1 mmol/L (98-107) L 01/12/20 19:53 Carbon Dioxide 25 mmol/L (22-30) 01/12/20 19:53 Anion Gap 24 mmol/L 01/12/20 19:53 BUN 53 mg/dL (9-20) H 01/12/20 19:53 Creatinine 11.8 mg/dL (0.8-1.5) H 01/12/20 19:53 Estimated GFR 6 ml/min 01/12/20 19:53 BUN/Creatinine Ratio 4 % 01/12/20 19:53 Glucose 320 mg/dL (75-100) H 01/12/20 19:53 Calcium 9.6 mg/dL (8.4-10.2) 01/12/20 19:53 Total Bilirubin 0.30 mg/dL (0.1-1.2) 01/12/20 19:53 AST 20 units/L (5-40) 01/12/20 19:53 ALT 12 units/L (7-56) 01/12/20 19:53 Alkaline Phosphatase 100 units/L (35-129) 01/12/20 19:53 Total Protein 6.9 g/dL (6.3-8.2) 01/12/20 19:53 Albumin 3.6 g/dL (3.9-5) L 01/12/20 19:53 Albumin/Globulin Ratio 1.1 % 01/12/20 19:53 Lipase 40 units/L (13-60) 01/12/20 19:53 Assessment and Plan Assessment and plan: Hypertensive Urgency - Due to missed HD - IV Vasodilators are more effective than BB in this setting. HYdralazine IV ordered. - No signs of focal neurological deficits or CVA thus far but pt is at risk - continue Telemonitoring Recurrent Ulcerative Esophagitis - with N/V with associated gastroparesis - NPO for profuse N/V. - On PPI Gtt . USe PRN IV REglan, Zofran, CA phenergen , whichever is most effective by trial. ALso, PRN IM TIgan if available DM Gastroparesis - chronic - BIsacodyl CA now - benign abdominal exam - continue chronically scheduled Reglan Hyperkalemia, at 5.5 - Gentle IVF and kayexalate - to go for HD tomorrow - Renal consulted in the ED ANemia - with acute Gi blood loss - monitor - transfuse if Hgb < 7 DM type 2 - Accuchecks Q6hrs - RSSI. SCD/PPI VTE prophylaxis?: Mechanical Contraindication Mechanical VTE Prophylaxis: Contraindicated Reason for no VTE Prophylaxis: Bleeding
[2020-01-13] MEDS: carvediloL 25 MG TAB PO SCH ×3 (00:28→22:06)
[2020-01-13] MEDS: INSULIN LISPRO 100 UNIT/ML SUB-Q SCH ×4 (01:05→23:19)
[2020-01-13] MEDS: hydrALAZINE 20 MG/1 ML INJ IV PRN ×2 (06:10→18:05)
[2020-01-13] MEDS: hydrALAZINE 25 MG TAB PO SCH ×3 (06:25→22:07)
[2020-01-13 07:17] LABS: Basophils # (Auto) 0.1 K/mm3 (0.0-0.1); Basophils % (Auto) 0.7 % (0.0-1.8); Eosinophils % (Auto) 0.1 % (0.0-4.3); Hematocrit 26.1 % (35.5-45.6); Hemoglobin 8.3 gm/dl (11.8-15.2); Lymphocytes # (Auto) 1.1 K/mm3 (1.2-5.4); Lymphocytes % (Auto) 8.9 % (13.4-35.0); Mean Corpuscular HGB Conc 32 % (32-34); Mean Corpuscular Volume 86 fl (84-94); Monocytes # (Auto) 1.2 K/mm3 (0.0-0.8); Monocytes % (Auto) 9.7 % (0.0-7.3); Platelet Count 401 K/mm3 (140-440); Red Blood Count 3.04 M/mm3 (3.65-5.03); Red Cell Distribution Width 16.4 % (13.2-15.2)
[2020-01-13 07:32] LABS: Calcium 8.9 mg/dL (8.4-10.2)
[2020-01-13] MEDS: DICYCLOMINE 10 MG CAP PO SCH ×4 (09:50→22:07)
[2020-01-13] MEDS: METOCLOPRAMIDE 10 MG TAB PO SCH ×4 (09:51→22:07)
[2020-01-13] MEDS ORDERED: SODIUM CHLORIDE 0.9% 100 ML IV PRN ×2 (11:00)
[2020-01-13] MEDS ORDERED: EPOETIN ALFA 10,000 UNIT/1 ML INJ IV PRN (11:00)
--- NOTE | 2020-01-13 12:16 | Consultation ---
History of Present Illness - Reason for Consult Consult date: 01/13/20 end stage renal disease - History of Present Illness This is a 34 year-old man with ESRD who presents for nausea, vomiting, and missed HD Patient usually dialyzes MWF but has not had dialysis for past 5 days due to feeling poorly. Denies any recent issues with HD, including dizziness, lightheadedness, cramping, chest pain on HD. Currently, patient denies any issues including dyspnea, edema, access issues, vomiting, headaches. Feels better this AM after admission. Past History Past Medical History: diabetes, dialysis, ESRD, other (gastroparesis) Social history: smoking, full code. denies: IV drug use Family history: hypertension Medications and Allergies Allergies Allergy/AdvReac Type Severity Reaction Status Date / Time No Known Allergies Allergy Verified 11/21/18 17:51 Home Medications Medication Instructions Recorded Confirmed Last Taken Type amLODIPine 5 mg PO DAILY 11/20/19 01/12/20 Unknown History Lispro Insulin [HumaLOG] 0 unit SQ TID 11/30/19 01/12/20 01/02/20 History Ondansetron [Zofran ODT TAB] 4 mg PO Q8HR #10 tab.rapdis 12/02/19 01/12/20 Unknown Rx hydrALAZINE [Apresoline TAB] 25 mg PO Q8HR 30 Days #90 tablet 12/02/19 01/12/20 01/02/20 Rx Dicyclomine [Bentyl] 10 mg PO QID #30 capsule 12/07/19 01/12/20 Unknown Rx Albuterol Sulfate [Albuterol 0.63% 0.63 mg IH Q4HR PRN 12/26/19 01/12/20 Unknown History NEBS] Metoclopramide [Reglan TAB] 10 mg PO QID 12/26/19 01/12/20 Unknown History Pantoprazole [Protonix TAB] 40 mg PO QDAY 12/26/19 01/12/20 Unknown History carvediloL [Coreg] 25 mg PO BID 12/26/19 01/12/20 01/02/20 History labetaloL [Labetalol 200mg TAB] 100 mg PO BID 12/26/19 01/12/20 01/02/20 History lisinopriL [Zestril TAB] 5 mg PO DAILY 12/26/19 01/12/20 01/02/20 History Active Meds: Active Medications Acetaminophen (Tylenol) 650 mg PO Q4H PRN PRN Reason: Pain MILD(1-3)/Fever >100.5/LANZA Amlodipine Besylate (Amlodipine) 5 mg PO DAILY [facility] Carvedilol (Coreg) 25 mg PO BID [facility] Last Admin: 01/13/20 00:28 Dose: 25 mg Documented by: Dextrose (D50w (25gm) Syringe) 50 ml IV Q30MIN PRN; Protocol PRN Reason: Hypoglycemia Dicyclomine HCl (Bentyl) 10 mg PO QID [facility] Epoetin Wale (Procrit) 10,000 unit IV BRENDAN PRN PRN Reason: hemodialysis Hydralazine HCl (Apresoline) 20 mg IV Q4HR PRN PRN Reason: SBP > 170, DBP > 100 Last Admin: 01/13/20 06:10 Dose: 20 mg Documented by: Hydralazine HCl (Apresoline) 25 mg PO Q8HR [facility] Last Admin: 01/13/20 06:25 Dose: Not Given Documented by: Pantoprazole Sodium 80 mg/ (Sodium Chloride) 100 mls @ 10 mls/hr IV DIRECT [facility] Last Admin: 01/12/20 22:23 Dose: 8 mg/hr, 10 mls/hr Documented by: Sodium Chloride (Nacl 0.9%) 100 mls @ 999 mls/hr IV BRENDAN PRN PRN Reason: Hypotension Sodium Chloride (Nacl 0.9%) 100 mls @ 999 mls/hr IV BRENDAN PRN PRN Reason: Hypotension Insulin Human Lispro (Humalog) 0 unit SUB-Q Q6HR [facility]; Protocol Last Admin: 01/13/20 06:02 Dose: Not Given Documented by: Labetalol HCl (Labetalol) 100 mg PO BID [facility] Last Admin: 01/13/20 00:29 Dose: 100 mg Documented by: Levalbuterol HCl (Xopenex) 0.63 mg IH Q4HRT PRN PRN Reason: Wheezing Magnesium Hydroxide (Milk Of Magnesia) 30 ml PO Q4H PRN PRN Reason: Constipation Metoclopramide HCl (Reglan) 10 mg PO QID [facility] Morphine Sulfate (Morphine) 2 mg IV Q4H PRN PRN Reason: Pain , Severe (7-10) Naloxone HCl (Naloxone) 0.1 mg IV Q2MIN PRN PRN Reason: Res Rate </= 8 or 02 SAT < 92% Ondansetron HCl (Zofran) 6 mg IV Q6H PRN PRN Reason: Nausea And Vomiting Oxycodone/Acetaminophen (Percocet 5/325) 1 tab PO Q6H PRN PRN Reason: Pain, Moderate (4-6) Promethazine HCl (Phenergan) 25 mg MT Q6H PRN PRN Reason: Nausea And Vomiting Last Admin: 01/13/20 04:02 Dose: 25 mg Documented by: Sodium Chloride (Sodium Chloride Flush Syringe 10 Ml) 10 ml IV BID KESHIA Sodium Chloride (Sodium Chloride Flush Syringe 10 Ml) 10 ml IV PRN PRN PRN Reason: LINE FLUSH Sucralfate (Carafate) 1 gm PO Q6HR KESHIA Review of Systems Constitutional: no fever, no fatigue, no weakness Respiratory: no dyspnea on exertion, no wheezing Gastrointestinal: nausea, no abdominal pain, no vomiting, no diarrhea Genitourinary Male: no dysuria Musculoskeletal: no neck pain, no muscle weakness, no muscle cramps Integumentary: no rash Neurological: no head injury, no headaches Psychiatric: no anxiety Exam - Vital Signs Vital signs: Vital Signs Temp Pulse Resp BP Pulse Ox 98.9 F 107 H 24 216/123 100 01/12/20 18:53 01/12/20 18:53 01/12/20 18:53 01/12/20 18:53 01/12/20 18:53 - Physical Exam Narrative exam: Constitutional: no acute distress Head: NC/AT Neck: supple Lungs: clear to auscultation CV: RRR, no M/R/G Abdomen: soft, non-tender, bowel sounds present Back: nontender Extremities: no edema, pulses WNL Skin: intact Neuro: no focal deficits, alert and oriented x4 Results - Lab Results 01/13/20 06:48 01/13/20 06:59 Most recent lab results Calcium 8.9 mg/dL (8.4-10.2) 01/13/20 06:59 Assessment and Plan This is a 34 year old man with ESRD who presents with nausea, vomiting interm ittently. # ESRD: HD today given lytes and volume, continue MWF while inpatient - daily labs - renally dose meds - avoid nephrotoxins - renal diet # Hyperkalemia: HD today # Anemia: last hemoglobin 8.3, will continue ESAs with HD # HTN: UF as tolerated. BP high, resume home meds. # Secondary Hyperparathyroidism: continue home binders as needed
--- NOTE | 2020-01-13 12:58 | Progress Note ---
Assessment and Plan Recurrent Ulcerative Esophagitis - with N/V with associated gastroparesis - start on clear liquid diet - On PPI iv . ordered PRN IV REglan, Zofran, [place] phenergen , DM Gastroparesis - chronic, - benign abdominal exam - continue chronically scheduled Reglan Hypertensive Urgency - Due to missed HD - Vasodilator are more effective than BB in this setting. HYdralazine IV ordered. resume home meds - No signs of focal neurological deficits or CVA thus far but pt is at risk - continue Telemonitoring Hyperkalemia, at 5.5 - improved - Gentle IVF and kayexalate - Renal consulted in the ED ANemia - with no furtehr acute GI blood loss - monitor - transfuse if Hgb < 7 DM type 2 - Accuchecks Q6hrs - RSSI. SCD/PPI VTE prophylaxis?: Mechanical Contraindication Mechanical VTE Prophylaxis: Contraindicated Reason for no VTE Prophylaxis: Bleeding Subjective Date of service: 01/13/20 Interval history: Patient seen and examined Continue to c/o N/V, c/p epigastric p[ain missed HD, counselled for compliance Objective - Constitutional Vitals: Vital Signs - 12hr 01/13/20 01/13/20 01/13/20 01:28 01:57 02:36 Temperature Pulse Rate 97 H Pulse Rate [ 103 H Apical] Respiratory 18 Rate Respiratory 18 Rate [Abdomen] Blood Pressure O2 Sat by Pulse 96 Oximetry 01/13/20 01/13/20 01/13/20 04:14 06:10 06:25 Temperature 98.7 F Pulse Rate 99 H 99 H 99 H Pulse Rate [ Apical] Respiratory 18 Rate Respiratory Rate [Abdomen] Blood Pressure 195/108 195/108 195/108 O2 Sat by Pulse 100 Oximetry 01/13/20 01/13/20 08:08 11:22 Temperature 97.6 F 98.7 F Pulse Rate 102 H 99 H Pulse Rate [ Apical] Respiratory 18 18 Rate Respiratory Rate [Abdomen] Blood Pressure 170/101 163/91 O2 Sat by Pulse 97 96 Oximetry General appearance: Present: mild distress, well-nourished - EENT Eyes: PERRL, EOM intact ENT: hearing intact, clear oral mucosa Ears: bilateral: normal - Neck Neck: supple, normal ROM - Respiratory Respiratory effort: normal Respiratory: bilateral: CTA - Cardiovascular Rhythm: regular Heart Sounds: Present: S1 & S2. Absent: gallop, rub Extremities: pulses intact, No edema, normal color, Full ROM - Gastrointestinal General gastrointestinal: Present: soft, non-tender, non-distended, normal bowel sounds - Integumentary Integumentary: clear, warm, dry - Musculoskeletal Musculoskeletal: 1, strength equal bilaterally - Neurologic Neurologic: moves all extremities - Psychiatric Psychiatric: memory intact, appropriate mood/affect, intact judgment & insight - Labs CBC & Chem 7: 01/14/20 08:05 01/14/20 08:05 Labs: Abnormal lab results 01/12/20 01/12/20 01/12/20 Range/Units 19:53 19:53 19:53 WBC 13.7 H (4.5-11.0) K/mm3 RBC 3.41 L (3.65-5.03) M/mm3 Hgb 9.5 L (11.8-15.2) gm/dl Hct 28.0 L (35.5-45.6) % MCV 82 L (84-94) fl MCH (28-32) pg RDW 16.2 H (13.2-15.2) % Plt Count 468 H (140-440) K/mm3 Lymph % (Auto) 6.9 L (13.4-35.0) % [place] % (Auto) 8.4 H (0.0-7.3) % Lymph # 0.9 L (1.2-5.4) K/mm3 [place] # 1.1 H (0.0-0.8) K/mm3 Baso # 0.2 H (0.0-0.1) K/mm3 Seg Neutrophils % 83.3 H (40.0-70.0) % Seg Neutrophils # 11.4 H (1.8-7.7) K/mm3 APTT 37.5 H (24.2-36.6) Sec. Potassium 5.5 H (3.6-5.0) mmol/L Chloride 94.1 L (98-107) mmol/L BUN 53 H (9-20) mg/dL Creatinine 11.8 H (0.8-1.5) mg/dL Glucose 320 H (75-100) mg/dL POC Glucose (70-105) Albumin 3.6 L (3.9-5) g/dL 03/01/2801/13/20 01/13/20 Range/Units 20:13 01:06 05:50 WBC (4.5-11.0) K/mm3 RBC (3.65-5.03) M/mm3 Hgb (11.8-15.2) gm/dl Hct (35.5-45.6) % MCV (84-94) fl MCH (28-32) pg RDW (13.2-15.2) % Plt Count (140-440) K/mm3 Lymph % (Auto) (13.4-35.0) % [place] % (Auto) (0.0-7.3) % Lymph # (1.2-5.4) K/mm3 [place] # (0.0-0.8) K/mm3 Baso # (0.0-0.1) K/mm3 Seg Neutrophils % (40.0-70.0) % Seg Neutrophils # (1.8-7.7) K/mm3 APTT (24.2-36.6) Sec. Potassium (3.6-5.0) mmol/L Chloride (98-107) mmol/L BUN (9-20) mg/dL Creatinine (0.8-1.5) mg/dL Glucose (75-100) mg/dL POC Glucose 342 H 269 H 174 H (70-105) Albumin (3.9-5) g/dL 01/13/20 01/13/20 01/13/20 Range/Units 06:48 06:59 11:34 WBC 12.2 H (4.5-11.0) K/mm3 RBC 3.04 L (3.65-5.03) M/mm3 Hgb 8.3 L (11.8-15.2) gm/dl Hct 26.1 L (35.5-45.6) % MCV (84-94) fl MCH 27 L (28-32) pg RDW 16.4 H (13.2-15.2) % Plt Count (140-440) K/mm3 Lymph % (Auto) 8.9 L (13.4-35.0) % [place] % (Auto) 9.7 H (0.0-7.3) % Lymph # 1.1 L (1.2-5.4) K/mm3 [place] # 1.2 H (0.0-0.8) K/mm3 Baso # (0.0-0.1) K/mm3 Seg Neutrophils % 80.6 H (40.0-70.0) % Seg Neutrophils # 9.8 H (1.8-7.7) K/mm3 APTT (24.2-36.6) Sec. Potassium 5.6 H (3.6-5.0) mmol/L Chloride 97.9 L (98-107) mmol/L BUN 57 H (9-20) mg/dL Creatinine 12.5 H (0.8-1.5) mg/dL Glucose 187 H (75-100) mg/dL POC Glucose 217 H (70-105) Albumin (3.9-5) g/dL
[2020-01-13] MEDS: amLODIPine 10 MG TAB PO SCH (19:22)
[2020-01-13] MEDS: PANTOPRAZOLE 80 MG in SODIUM CHLORIDE 0.9% 100 ML IV SCH (23:17)
[2020-01-13] MEDS: SUCRALFATE 1 GM/10 ML ORAL LIQD PO SCH (23:17)
[2020-01-14] MEDS: INSULIN LISPRO 100 UNIT/ML SUB-Q SCH ×4 (05:42→19:00)
[2020-01-14] MEDS: SUCRALFATE 1 GM/10 ML ORAL LIQD PO SCH ×4 (06:16→19:05)
[2020-01-14] MEDS: hydrALAZINE 25 MG TAB PO SCH ×3 (06:17→21:51)
[2020-01-14 08:50] LABS: Basophils # (Auto) 0.1 K/mm3 (0.0-0.1); Basophils % (Auto) 1.1 % (0.0-1.8); Eosinophils # (Auto) 0.2 K/mm3 (0.0-0.4); Eosinophils % (Auto) 1.9 % (0.0-4.3); Hematocrit 25.1 % (35.5-45.6); Hemoglobin 8.6 gm/dl (11.8-15.2); Lymphocytes # (Auto) 2.6 K/mm3 (1.2-5.4); Lymphocytes % (Auto) 27.2 % (13.4-35.0); Mean Corpuscular HGB Conc 34 % (32-34); Mean Corpuscular Volume 82 fl (84-94); Monocytes # (Auto) 1.1 K/mm3 (0.0-0.8); Monocytes % (Auto) 11.3 % (0.0-7.3); Platelet Count 396 K/mm3 (140-440); Red Blood Count 3.06 M/mm3 (3.65-5.03); Red Cell Distribution Width 15.5 % (13.2-15.2)
[2020-01-14 09:05] LABS: Calcium 8.4 mg/dL (8.4-10.2)
--- NOTE | 2020-01-14 09:46 | Progress Note ---
Assessment and Plan This is a 34 year old man with ESRD who presents with nausea, vomiting intermittently. # ESRD: s/p HD on 01/12 given lytes and volume, continue MWF while inpatient, due tomorrow. No indication for HD today - daily labs - renally dose meds - avoid nephrotoxins - renal diet # Hyperkalemia: continue HD as above, K improved s/p HD # Anemia: last hemoglobin 8.6, will continue ESAs with HD # HTN: UF as tolerated. BP better now, but remains above goal. # Secondary Hyperparathyroidism: continue home binders as needed Subjective Date of service: 01/14/20 Interval history: No acute events noted. Tolerated HD yesterday, no cramping, dizziness noted. No dyspnea today. Continues to have nausea and abdominal pain at times. Objective - Exam Narrative Exam: Constitutional: no acute distress Head: NC/AT Neck: supple Lungs: clear to auscultation CV: RRR, no M/R/G Abdomen: soft, non-tender, bowel sounds present Back: nontender Extremities: no edema, pulses WNL Skin: intact Neuro: no focal deficits, alert and oriented x4 - Vital Signs Vital signs: Vital Signs - 12hr 01/13/20 01/13/20 01/13/20 22:00 22:05 22:06 Temperature Pulse Rate 99 H 99 H 99 H Respiratory Rate Blood Pressure 150/95 150/95 O2 Sat by Pulse Oximetry 01/13/20 01/13/20 01/14/20 22:07 23:36 03:40 Temperature 99.0 F 99.0 F Pulse Rate 99 H 88 85 Respiratory 16 16 Rate Blood Pressure 150/95 157/87 146/88 O2 Sat by Pulse 94 97 Oximetry 01/14/20 01/14/20 06:17 08:30 Temperature 98.0 F Pulse Rate 81 83 Respiratory 22 Rate Blood Pressure 165/96 187/105 O2 Sat by Pulse 100 Oximetry - Lab 01/14/20 08:05 01/14/20 08:05 Most recent lab results Calcium 8.4 mg/dL (8.4-10.2) 01/14/20 08:05 Medications & Allergies - Medications Allergies/Adverse Reactions: Allergies No Known Allergies Allergy (Verified 11/21/18 17:51) Home Medications: Home Medications Medication Instructions Recorded Confirmed Last Taken Type amLODIPine 5 mg PO DAILY 11/20/19 01/12/20 Unknown History Lispro Insulin [HumaLOG] 0 unit SQ TID 11/30/19 01/12/20 01/02/20 History Ondansetron [Zofran ODT TAB] 4 mg PO Q8HR #10 tab.rapdis 12/02/19 01/12/20 Unknown Rx hydrALAZINE [Apresoline TAB] 25 mg PO Q8HR 30 Days #90 tablet 12/02/19 01/12/20 01/02/20 Rx Dicyclomine [Bentyl] 10 mg PO QID #30 capsule 12/07/19 01/12/20 Unknown Rx Albuterol Sulfate [Albuterol 0.63% 0.63 mg IH Q4HR PRN 12/26/19 01/12/20 Unknown History NEBS] Metoclopramide [Reglan TAB] 10 mg PO QID 12/26/19 01/12/20 Unknown History Pantoprazole [Protonix TAB] 40 mg PO QDAY 12/26/19 01/12/20 Unknown History carvediloL [Coreg] 25 mg PO BID 12/26/19 01/12/20 01/02/20 History labetaloL [Labetalol 200mg TAB] 100 mg PO BID 12/26/19 01/12/20 01/02/20 History lisinopriL [Zestril TAB] 5 mg PO DAILY 12/26/19 01/12/20 01/02/20 History Active Medications: Generic Name Dose Route Start Last Admin Trade Name Freq PRN Reason Stop Dose Admin Acetaminophen 650 mg 01/12/20 23:38 Tylenol PO Q4H PRN Pain MILD(1-3)/Fever >100.5/LANZA Amlodipine Besylate 5 mg 01/13/20 10:00 01/13/20 19:22 Amlodipine PO 5 mg DAILY KESHIA Administration Carvedilol 25 mg 01/12/20 23:45 01/13/20 22:06 Coreg PO 25 mg BID KESHIA Administration Dextrose 50 ml 01/12/20 23:38 D50w (25gm) Syringe IV Q30MIN PRN Hypoglycemia Protocol Dicyclomine HCl 10 mg 01/13/20 10:00 01/13/20 22:07 Bentyl PO 10 mg QID KESHIA Administration Epoetin Wale 10,000 unit 01/13/20 11:00 Procrit IV BRENDAN PRN hemodialysis Hydralazine HCl 20 mg 01/12/20 23:43 01/13/20 18:05 Apresoline IV 20 mg Q4HR PRN Administration SBP > 170, DBP > 100 Hydralazine HCl 25 mg 01/13/20 06:00 01/14/20 06:17 Apresoline PO 25 mg Q8HR KESHIA Administration Pantoprazole Sodium 80 mg/ 100 mls @ 10 mls/hr 01/12/20 22:00 01/13/20 23:17 Sodium Chloride IV 8 mg/hr DIRECT KESHIA 10 mls/hr Administration 8 MG/HR Sodium Chloride 100 mls @ 999 mls/hr 01/13/20 11:00 Nacl 0.9% IV BRENDAN PRN Hypotension Sodium Chloride 100 mls @ 999 mls/hr 01/13/20 11:00 Nacl 0.9% IV BRENDAN PRN Hypotension Insulin Human Lispro 0 unit 01/13/20 00:00 01/14/20 08:10 Humalog SUB-Q Not Given Q6HR COUNTS INCLUDE 234 BEDS AT THE [facility] Protocol Labetalol HCl 100 mg 01/12/20 23:45 01/13/20 22:05 Labetalol PO 100 mg BID KESHIA Administration Levalbuterol HCl 0.63 mg 01/12/20 23:46 Xopenex IH Q4HRT PRN Wheezing Magnesium Hydroxide 30 ml 01/12/20 23:38 Milk Of Magnesia PO Q4H PRN Constipation Metoclopramide HCl 10 mg 01/13/20 10:00 01/13/20 22:07 Reglan PO 10 mg QID KESHIA Administration Morphine Sulfate 2 mg 01/12/20 23:38 Morphine IV Q4H PRN Pain , Severe (7-10) Naloxone HCl 0.1 mg 01/12/20 23:38 Naloxone IV Q2MIN PRN Res Rate </= 8 or 02 SAT < 92% Ondansetron HCl 6 mg 01/12/20 23:38 Zofran IV Q6H PRN Nausea And Vomiting Oxycodone/Acetaminophen 1 tab 01/12/20 23:38 Percocet 5/325 PO Q6H PRN Pain, Moderate (4-6) Promethazine HCl 25 mg 01/12/20 23:43 01/13/20 04:02 Phenergan ID 25 mg Q6H PRN Administration Nausea And Vomiting Sodium Chloride 10 ml 01/13/20 10:00 01/14/20 08:10 Sodium Chloride Flush Syringe 10 Ml IV Not Given BID KESHIA Sodium Chloride 10 ml 01/12/20 23:38 Sodium Chloride Flush Syringe 10 Ml IV PRN PRN LINE FLUSH Sucralfate 1 gm 01/13/20 23:48 01/14/20 06:16 Carafate PO 1 gm Q6HR KESHIA Administration
[2020-01-14] MEDS: METOCLOPRAMIDE 10 MG TAB PO SCH ×4 (10:10→21:50)
[2020-01-14] MEDS: DICYCLOMINE 10 MG CAP PO SCH ×4 (10:10→21:50)
[2020-01-14] MEDS: amLODIPine 10 MG TAB PO SCH (10:10)
[2020-01-14] MEDS: carvediloL 25 MG TAB PO SCH ×2 (10:10→21:51)
--- NOTE | 2020-01-14 14:20 | Progress Note ---
Assessment and Plan Recurrent Ulcerative Esophagitis - with N/V with associated gastroparesis - on clear liquid diet - will advance today - On PPI iv . ordered PRN IV REglan, Zofran, [place] phenergen , DM Gastroparesis - chronic, - benign abdominal exam - continue chronically scheduled Reglan Hypertensive Urgency - Due to missed HD - Vasodilator are more effective than BB in this setting. HYdralazine IV ordered. resume home meds - No signs of focal neurological deficits or CVA thus far but pt is at risk - continue Telemonitoring Hyperkalemia, at 5.5 - improved - s/p kayexalate - Renal consulted in the ED for HD Anemia ,likely from CD - with no acute GI blood loss - monitor - transfuse if Hgb < 7 DM type 2 - Accuchecks Q6hrs - RSSI. SCD/PPI Advance diet today, if tolerated d/c tomorrow VTE prophylaxis?: Mechanical Contraindication Mechanical VTE Prophylaxis: Contraindicated Reason for no VTE Prophylaxis: Bleeding Subjective Date of service: 01/14/20 Interval history: Patient seen and examined CImproved N/V, tolerated clear liquid diet s/p HD, feels little better Objective - Exam Narrative Exam: General appearance: Present: no distress, well-nourished - EENT Eyes: PERRL, EOM intact ENT: hearing intact, clear oral mucosa Ears: bilateral: normal - Neck Neck: supple, normal ROM - Respiratory Respiratory effort: normal Respiratory: bilateral: CTA - Cardiovascular Rhythm: regular Heart Sounds: Present: S1 & S2. Absent: gallop, rub Extremities: pulses intact, No edema, normal color, Full ROM - Gastrointestinal General gastrointestinal: Present: soft, non-tender, non-distended, normal bowel sounds - Integumentary Integumentary: clear, warm, dry - Musculoskeletal Musculoskeletal: 1, strength equal bilaterally - Neurologic Neurologic: moves all extremities - Psychiatric Psychiatric: memory intact, appropriate mood/affect, intact judgment & insight - Constitutional Vitals: Vital Signs - 12hr 01/14/20 01/14/20 01/14/20 03:40 06:17 08:30 Temperature 99.0 F 98.0 F Pulse Rate 85 81 83 Respiratory 16 22 Rate Blood Pressure 146/88 165/96 187/105 O2 Sat by Pulse 97 100 Oximetry 01/14/20 01/14/20 01/14/20 10:00 10:51 13:48 Temperature 98.8 F Pulse Rate 87 82 75 Respiratory 18 Rate Blood Pressure 159/88 O2 Sat by Pulse 97 Oximetry - Labs CBC & Chem 7: 01/14/20 08:05 01/14/20 08:05 Labs: Abnormal lab results 01/14/20 01/14/20 01/14/20 Range/Units 01:51 05:37 08:05 RBC 3.06 L (3.65-5.03) M/mm3 Hgb 8.6 L (11.8-15.2) gm/dl Hct 25.1 L (35.5-45.6) % MCV 82 L (84-94) fl RDW 15.5 H (13.2-15.2) % [place] % (Auto) 11.3 H (0.0-7.3) % [place] # 1.1 H (0.0-0.8) K/mm3 Chloride (98-107) mmol/L BUN (9-20) mg/dL Creatinine (0.8-1.5) mg/dL Glucose (75-100) mg/dL POC Glucose 149 H 118 H (70-105) 01/14/20 01/14/20 Range/Units 08:05 08:25 RBC (3.65-5.03) M/mm3 Hgb (11.8-15.2) gm/dl Hct (35.5-45.6) % MCV (84-94) fl RDW (13.2-15.2) % [place] % (Auto) (0.0-7.3) % [place] # (0.0-0.8) K/mm3 Chloride 95.9 L (98-107) mmol/L BUN 29 H (9-20) mg/dL Creatinine 8.6 H (0.8-1.5) mg/dL Glucose 133 H (75-100) mg/dL POC Glucose 127 H (70-105)
[2020-01-15] MEDS: SUCRALFATE 1 GM/10 ML ORAL LIQD PO SCH ×3 (00:14→15:59)
[2020-01-15] MEDS: INSULIN LISPRO 100 UNIT/ML SUB-Q SCH ×4 (00:14→16:33)
[2020-01-15] MEDS: hydrALAZINE 25 MG TAB PO SCH (06:15)
[2020-01-15] MEDS ORDERED: PANTOPRAZOLE 40 MG TAB PO SCH (10:00)
--- NOTE | 2020-01-15 12:06 | Progress Note ---
Assessment and Plan This is a 34 year old man with ESRD who presents with nausea, vomiting intermittently. # ESRD: s/p HD on 01/12 given lytes and volume, continue MWF while inpatient, seen on HD today, tolerating well. Resume outpatient HD per schedule at discharge - daily labs - renally dose meds - avoid nephrotoxins - renal diet # Hyperkalemia: continue HD as above, K improved # Anemia: last hemoglobin 8.6, will continue ESAs with HD # HTN: UF as tolerated. BP better but remains above goal. Continue home meds # Secondary Hyperparathyroidism: continue home binders as needed Subjective Date of service: 01/15/20 Interval history: No acute events noted. Seen on HD today, no cramping, dizziness noted. No dyspnea. Improved nausea and abdominal pain at times. Objective - Exam Narrative Exam: Constitutional: no acute distress Head: NC/AT Neck: supple Lungs: clear to auscultation CV: RRR, no M/R/G Abdomen: soft, non-tender, bowel sounds present Back: nontender Extremities: no edema, pulses WNL Skin: intact Neuro: no focal deficits, alert and oriented x4 - Vital Signs Vital signs: Vital Signs - 12hr 01/15/20 01/15/20 01/15/20 08:34 09:25 09:33 Temperature 98.1 F 98.1 F Pulse Rate 76 80 79 Respiratory 20 20 Rate Blood Pressure 192/105 184/124 182/109 O2 Sat by Pulse 100 Oximetry 01/15/20 01/15/20 01/15/20 09:45 10:00 10:15 Temperature Pulse Rate 79 79 78 Respiratory Rate Blood Pressure 169/100 179/106 180/108 O2 Sat by Pulse Oximetry 01/15/20 01/15/20 01/15/20 10:30 10:45 11:00 Temperature Pulse Rate 77 78 77 Respiratory Rate Blood Pressure 172/110 168/101 165/96 O2 Sat by Pulse Oximetry 01/15/20 01/15/20 01/15/20 11:15 11:30 11:45 Temperature Pulse Rate 78 72 79 Respiratory Rate Blood Pressure 175/109 101/83 182/105 O2 Sat by Pulse Oximetry Seen on HD. Qb 350ml/min via AVF. UF 2.5L goal - Lab 01/14/20 08:05 01/14/20 08:05 Most recent lab results Calcium 8.4 mg/dL (8.4-10.2) 01/14/20 08:05 Medications & Allergies - Medications Allergies/Adverse Reactions: Allergies No Known Allergies Allergy (Verified 11/21/18 17:51) Home Medications: Home Medications Medication Instructions Recorded Confirmed Last Taken Type amLODIPine 5 mg PO DAILY 11/20/19 01/12/20 Unknown History Lispro Insulin [HumaLOG] 0 unit SQ TID 11/30/19 01/12/20 01/02/20 History Ondansetron [Zofran ODT TAB] 4 mg PO Q8HR #10 tab.rapdis 12/02/19 01/12/20 Unknown Rx hydrALAZINE [Apresoline TAB] 25 mg PO Q8HR 30 Days #90 tablet 12/02/19 01/12/20 01/02/20 Rx Dicyclomine [Bentyl] 10 mg PO QID #30 capsule 12/07/19 01/12/20 Unknown Rx Albuterol Sulfate [Albuterol 0.63% 0.63 mg IH Q4HR PRN 12/26/19 01/12/20 Unknown History NEBS] Metoclopramide [Reglan TAB] 10 mg PO QID 12/26/19 01/12/20 Unknown History Pantoprazole [Protonix TAB] 40 mg PO QDAY 12/26/19 01/12/20 Unknown History carvediloL [Coreg] 25 mg PO BID 12/26/19 01/12/20 01/02/20 History labetaloL [Labetalol 200mg TAB] 100 mg PO BID 12/26/19 01/12/20 01/02/20 History lisinopriL [Zestril TAB] 5 mg PO DAILY 12/26/19 01/12/20 01/02/20 History Active Medications: Generic Name Dose Route Start Last Admin Trade Name Freq PRN Reason Stop Dose Admin Acetaminophen 650 mg 01/12/20 23:38 Tylenol PO Q4H PRN Pain MILD(1-3)/Fever >100.5/LANZA Amlodipine Besylate 5 mg 01/13/20 10:00 01/14/20 10:10 Amlodipine PO 5 mg DAILY KESHIA Administration Carvedilol 25 mg 01/12/20 23:45 01/14/20 21:51 Coreg PO 25 mg BID KESHIA Administration Dextrose 50 ml 01/12/20 23:38 D50w (25gm) Syringe IV Q30MIN PRN Hypoglycemia Protocol Dicyclomine HCl 10 mg 01/13/20 10:00 01/14/20 21:50 Bentyl PO 10 mg QID KESHIA Administration Epoetin Wale 10,000 unit 01/13/20 11:00 Procrit IV BRENDAN PRN hemodialysis Hydralazine HCl 20 mg 01/12/20 23:43 01/13/20 18:05 Apresoline IV 20 mg Q4HR PRN Administration SBP > 170, DBP > 100 Hydralazine HCl 25 mg 01/13/20 06:00 01/15/20 06:15 Apresoline PO 25 mg Q8HR [facility] Administration Sodium Chloride 100 mls @ 999 mls/hr 01/13/20 11:00 Nacl 0.9% IV BRENDAN PRN Hypotension Insulin Human Lispro 0 unit 01/13/20 00:00 01/15/20 06:14 Humalog SUB-Q Not Given Q6HR [facility] Protocol Labetalol HCl 100 mg 01/12/20 23:45 01/14/20 21:50 Labetalol PO 100 mg BID [facility] Administration Levalbuterol HCl 0.63 mg 01/12/20 23:46 Xopenex IH Q4HRT PRN Wheezing Magnesium Hydroxide 30 ml 01/12/20 23:38 Milk Of Magnesia PO Q4H PRN Constipation Metoclopramide HCl 10 mg 01/13/20 10:00 01/14/20 21:50 Reglan PO 10 mg QID [facility] Administration Morphine Sulfate 2 mg 01/12/20 23:38 Morphine IV Q4H PRN Pain , Severe (7-10) Naloxone HCl 0.1 mg 01/12/20 23:38 Naloxone IV Q2MIN PRN Res Rate </= 8 or 02 SAT < 92% Ondansetron HCl 6 mg 01/12/20 23:38 Zofran IV Q6H PRN Nausea And Vomiting Oxycodone/Acetaminophen 1 tab 01/12/20 23:38 Percocet 5/325 PO Q6H PRN Pain, Moderate (4-6) Pantoprazole Sodium 40 mg 01/15/20 10:00 Protonix PO DAILY [facility] Promethazine HCl 25 mg 01/12/20 23:43 01/13/20 04:02 Phenergan DE 25 mg Q6H PRN Administration Nausea And Vomiting Sodium Chloride 10 ml 01/13/20 10:00 01/14/20 21:52 Sodium Chloride Flush Syringe 10 Ml IV 10 ml BID KESHIA Administration Sodium Chloride 10 ml 01/12/20 23:38 Sodium Chloride Flush Syringe 10 Ml IV PRN PRN LINE FLUSH Sucralfate 1 gm 01/13/20 23:48 01/15/20 06:15 Carafate PO 1 gm Q6HR KESHIA Administration
[2020-01-15] MEDS ORDERED: amLODIPine 10 MG TAB PO SCH (14:28)
--- NOTE | 2020-01-15 14:36 | Discharge Summary ---
Providers - Providers Date of Admission: 01/12/20 22:01 Date of discharge: 01/15/20 Attending physician: ANASTACIO CEDEÑO 01/12/20 23:39 Consult to Dietitian/Nutrition [CONS] Routine Physician Instructions: Reason For Exam: Reason for Consult: Diet education 01/13/20 08:00 PICC Line Insertion [Consult to PICC Line RN] [CONS] Urgent Reason For Exam: IV protonix Type Line:: PICC 01/13/20 10:18 Consult to Physician [CONS] Routine Comment: Consulting Provider: NICK ESTEBAN Physician Instructions: Reason For Exam: ESRD Primary care physician: CLAY PIGEON LOADER Hospitalization Condition: Stable Hospital course: Discharge diagnosis: Recurrent Ulcerative Esophagitis - with N/V with associated gastroparesis - treated with PPI iv . ordered PRN IV REglan, Zofran, NM phenergen , advance diet as tolerated DM Gastroparesis - chronic, - benign abdominal exam - continue chronically scheduled Reglan Hypertensive Urgency - Due to missed HD - Vasodilator are more effective than BB in this setting. HYdralazine IV ordered. resume home meds - No signs of focal neurological deficits or CVA thus far but pt is at risk - continue Telemonitoring Hyperkalemia, at 5.5 - improved - s/p kayexalate - Renal consulted in the ED for HD Anemia ,likely from CD - with no acute GI blood loss - monitor - transfuse if Hgb < 7 DM type 2 - Accuchecks Q6hrs - RSSI. SCD/PPI Advance diet today, if tolerated d/c tomorrow VTE prophylaxis?: Mechanical Contraindication Mechanical VTE Prophylaxis: Contraindicated Reason for no VTE Prophylaxis: Bleeding Disposition: - TO HOME OR SELFCARE Time spent for discharge: 34 minutes Core Measure Documentation - Palliative Care Palliative Care/ Comfort Measures: Not Applicable - Core Measures Any of the following diagnoses?: none Exam - Physical Exam Narrative exam: General appearance: Present: no distress, well-nourished - EENT Eyes: PERRL, EOM intact ENT: hearing intact, clear oral mucosa Ears: bilateral: normal - Neck Neck: supple, normal ROM - Respiratory Respiratory effort: normal Respiratory: bilateral: CTA - Cardiovascular Rhythm: regular Heart Sounds: Present: S1 & S2. Absent: gallop, rub Extremities: pulses intact, No edema, normal color, Full ROM - Gastrointestinal General gastrointestinal: Present: soft, non-tender, non-distended, normal bowel sounds - Integumentary Integumentary: clear, warm, dry - Musculoskeletal Musculoskeletal: 1, strength equal bilaterally - Neurologic Neurologic: moves all extremities - Psychiatric Psychiatric: memory intact, appropriate mood/affect, intact judgment & insight - Constitutional Vitals: Temp Pulse Resp BP Pulse Ox 98.1 F 79 20 186/109 100 01/15/20 13:33 01/15/20 13:33 01/15/20 13:33 01/15/20 13:33 01/15/20 08:34 Plan Activity: advance as tolerated Weight Bearing Status: Weight Bear as Tolerated Diet: diabetic, renal Special Instructions: restrict fluid intake to (1.2 L daily), record daily BP diary, record blood sugar diary Follow up with: PRIMARY CARE, [Primary Care Provider] - 3-5 Days Prescriptions: Sucralfate [Carafate] 1 gm PO Q6HR 14 Days Hydralazine HCl 100 mg PO Q8H #120 tablet Pantoprazole [Protonix TAB] 40 mg PO DAILY #30 tablet Metoclopramide [Reglan TAB] 10 mg PO QID #120 tablet Ondansetron [Zofran ODT TAB] 4 mg PO Q8HR #10 tab.elijah
[2020-01-15 15:57] VITALS: BP 195/110
[2020-01-15] MEDS: METOCLOPRAMIDE 10 MG TAB PO SCH ×2 (15:58→16:05)
[2020-01-15] MEDS: carvediloL 25 MG TAB PO SCH (15:58)
[2020-01-15] MEDS: DICYCLOMINE 10 MG CAP PO SCH ×2 (16:16)
[2020-01-15] MEDS ORDERED: SODIUM CHLORIDE*PRIMING MACHINE ONLY FOR DIALYSIS MC ONE (17:18)
== END 2020-01-15 16:45 | disposition home or self-care (01) | DRG 380 ==
LOC: ED 16:49 → 4A 22:01
PROVIDERS: ADMIT Hospitalist; ATTEND Internal Medicine
PROC: 5A1D70Z Performance of Urinary Filtration, Intermittent, Less than 6 Hours Per Day (ICD-10-PCS; principal; 2020-01-13)
PROC: 5A1D70Z Performance of Urinary Filtration, Intermittent, Less than 6 Hours Per Day (ICD-10-PCS; 2020-01-15)
DX: K22.10 Ulcer of esophagus without bleeding (principal); N18.6 End stage renal disease; I16.0 Hypertensive urgency; E87.5 Hyperkalemia; E11.43 Type 2 diabetes mellitus with diabetic autonomic (poly)neuropathy; K31.84 Gastroparesis; D63.8 Anemia in other chronic diseases classified elsewhere; N25.81 Secondary hyperparathyroidism of renal origin; E11.22 Type 2 diabetes mellitus with diabetic chronic kidney disease; F17.200 Nicotine dependence, unspecified, uncomplicated; I50.9 Heart failure, unspecified; I13.2 Hypertensive heart and chronic kidney disease with heart failure and with stage 5 chronic kidney disease, or end stage renal disease; J45.909 Unspecified asthma, uncomplicated; Z90.49 Acquired absence of other specified parts of digestive tract; Z82.49 Family history of ischemic heart disease and other diseases of the circulatory system; Z79.899 Other long term (current) drug therapy; Z99.2 Dependence on renal dialysis
CPT/HCPCS: 36415; 80048; 80053; 82962; 83690; 85025; 85027; 85610; 85730; G0378; C9113; J0360; J0885; J1815; J2405; J2765; J3486; J7030

== ENCOUNTER 2020-01-25 15:22 | Inpatient (IN) | payer MEDICAID ==
[2020-01-25] MEDS ORDERED: hydrALAZINE 20 MG/1 ML INJ IV ONE (17:07)
[2020-01-25] MEDS ORDERED: fentaNYL 100 MCG/2 ML INJ IV ONE (17:08)
[2020-01-25] MEDS ORDERED: ONDANSETRON 4 MG/2 ML INJ IV ONE ×2 (17:08→19:51)
[2020-01-25] MEDS ORDERED: PANTOPRAZOLE 40 MG INJ IV ONE (17:08)
--- NOTE | 2020-01-25 17:24 | Emergency Department Report ---
HPI - General Chief Complaint: High BP Time Seen by Provider: 01/25/20 16:56 - HPI HPI: Room 6 The patient is a 34-year-old male present with a chief complaint of hematemesis and abdominal pain. The patient states he developed abdominal pain and hemate mesis this morning. Patient states he has vomitus with streaks of blood. Patient states his last bowel movement occurred approximately 30 minutes ago and was within normal limits. Patient denies melena or bright red blood per rectum. The patient has a history of end-stage renal disease and normally receives dialysis every Saturday. Last time he received dialysis was 01/22/2020 ED Past Medical Hx - Past Medical History Previous Medical History?: Yes Hx Hypertension: Yes Hx Heart Attack/AMI: Yes Hx Congestive Heart Failure: Yes Hx Diabetes: Yes Hx Asthma: Yes Additional medical history: Ulcerative esophagitis, Gastroparesis HD MWF - Surgical History Past Surgical History?: Yes Hx Cholecystectomy: (v,vas) Hx Appendectomy: Yes Additional Surgical History: right great toe removed, Right chest PERMA-CATH - Family History Family history: no significant - Social History Smoking Status: Never Smoker Substance Use Type: None (Denies illicit drug use) - Medications Home Medications: Home Medications Medication Instructions Recorded Confirmed Last Taken Type Lispro Insulin [HumaLOG] 0 unit SQ TID 11/30/19 01/12/20 01/02/20 History Albuterol Sulfate [Albuterol 0.63% 0.63 mg IH Q4HR PRN #30 01/15/20 Unknown Rx NEBS] Dicyclomine [Bentyl] 10 mg PO QID #30 capsule 01/15/20 Unknown Rx Hydralazine HCl 100 mg PO Q8H #120 tablet 01/15/20 Unknown Rx Metoclopramide [Reglan TAB] 10 mg PO QID #120 tablet 01/15/20 Unknown Rx Ondansetron [Zofran ODT TAB] 4 mg PO Q8HR #10 tab.rapdis 01/15/20 Unknown Rx Pantoprazole [Protonix TAB] 40 mg PO DAILY #30 tablet 01/15/20 Unknown Rx Sucralfate [Carafate] 1 gm PO Q6HR 14 Days 01/15/20 Unknown Rx amLODIPine 10 mg PO DAILY #30 01/15/20 Unknown Rx carvediloL [Coreg] 25 mg PO BID #60 01/15/20 Unknown Rx ED Review of Systems ROS: Stated complaint: VOMITING BLOOD Other details as noted in HPI Constitutional: diaphoresis Gastrointestinal: abdominal pain, nausea, vomiting Physical Exam - Physical Exam Vital Signs: Vital Signs 01/25/20 01/25/20 01/25/20 15:49 15:52 16:36 Pulse Rate 110 H 110 H 100 H Respiratory 22 22 15 Rate Blood Pressure 232/125 232/125 [Left] O2 Sat by Pulse 97 97 93 Oximetry Physical Exam: GENERAL: The patient is well-developed well-nourished male sitting on stretcher appearing diaphoretic. [] HEENT: Normocephalic. Atraumatic. Extraocular motions are intact. Patient has moist mucous membranes. Diaphoretic NECK: Supple. Trachea midline CHEST/LUNGS: Clear to auscultation. There is no respiratory distress noted. HEART/CARDIOVASCULAR: Regular. There is no tachycardia. There is no gallop rub or murmur. ABDOMEN: Abdomen is soft, with diffuse tenderness to palpation. Patient has normal bowel sounds. There is no abdominal distention. SKIN: There is no rash. There is no edema. There is no diaphoresis. NEURO: The patient is awake, alert, and oriented. The patient is cooperative. The patient has no focal neurologic deficits. The patient has normal speech MUSCULOSKELETAL: There is no evidence of acute injury. ED Course Vital Signs 01/25/20 01/25/20 01/25/20 15:49 15:52 16:36 Pulse Rate 110 H 110 H 100 H Respiratory 22 22 15 Rate Blood Pressure 232/125 232/125 [Left] O2 Sat by Pulse 97 97 93 Oximetry - Consultations Consultation #1: 01/25/20 17:40 Case discussed with nephrology Dr. Mendosa ED Medical Decision Making - Lab Data Result diagrams: 01/25/20 17:33 01/25/20 17:33 - EKG Data -: EKG Interpreted by Me EKG shows normal: sinus rhythm Rate: tachycardia (104 bpm) - EKG Data When compared to previous EKG there are: previous EKG unavailable Interpretation: nonspecific ST-T wave rosana (T wave inversion in lead aVL) - Radiology Data Radiology results: report reviewed (CT head, CT abdomen pelvis), image reviewed (CT head, CT abdomen pelvis) [facility] [address] [place] [address] Cat Scan Report Signed Patient: GAY OSWALD MR #: [id number] : 1985 Acct:[id number] Age/Sex: 34 / M ADM Date: 01/25/20 Loc: ED Attending Dr: Ordering Physician: BERNARDA YO MD Date of Service: 01/25/20 Procedure(s): CT head/brain wo con Accession Number(s): [id number] cc: BERNARDA YO MD CT HEAD WITHOUT CONTRAST INDICATION / CLINICAL INFORMATION: Hypertension, vomiting. TECHNIQUE: All CT scans at this location are performed using CT dose reduction for ALARA by means of automated exposure control. COMPARISON: None available. FINDINGS: HEMORRHAGE: No evidence of intracranial hemorrhage or extra-axial fluid collection. EXTRA-AXIAL SPACES: Cortical sulci, sylvian fissures and basilar cisterns have an unremarkable appearance. VENTRICULAR SYSTEM: The ventricular system is of normal size and configuration. CEREBRAL PARENCHYMA: No areas of abnormal brain parenchymal attenuation are identified. There is no indication of recent infarction. MIDLINE SHIFT OR HERNIATION: There is no mass effect. CEREBELLUM / BRAINSTEM: Brainstem and cerebellum have an unremarkable appearance. INTRACRANIAL VESSELS:No abnormalities are identified on this noncontrast head CT. ORBITS: visualized portions of the orbits have an unremarkable appearance. SOFT TISSUES of HEAD: No significant abnormality. CALVARIUM: Evaluation of bone windows reveals no abnormalities. PARANASAL SINUSES / MASTOID AIR CELLS: Opacification of the mid ethmoid air cells seen on the left. Paranasal sinuses are otherwise free from inflammatory mucosal disease. Mastoid air cells are normally pneumatized. IMPRESSION: 1. No intercranial abnormalities are identified on head CT without contrast. Signer Name: James Lewis MD Signed: 01/25/2020 7:06 PM Workstation Name: [id number] Transcribed By: Dictated By: James Lewis MD Electronically Authenticated By: James Lewis MD Signed Date/Time: 01/25/201905 DD/ 03 TD/TT: [facility] [address] [place] [address] Cat Scan Report Signed Patient: GAY OSWALD MR #: [id number] : 1985 Acct:[id number] Age/Sex: 34 / M ADM Date: 01/25/20 Loc: ED Attending Dr: Ordering Physician: BERNARDA YO MD Date of Service: 01/25/20 Procedure(s): CT abdomen pelvis wo con Accession Number(s): [id number] cc: BERNARDA YO MD CT ABDOMEN AND PELVIS WITHOUT IV CONTRAST INDICATION: Diffuse abdominal pain greatest in the RLQ. COMPARISON: CT 12/25/2019 TECHNIQUE: All CT scans at this facility use dose modulation, automated exposure control, iterative reconstruction or weight based dosing, when appropriate, to reduce radiation dose to as low as reasonably achievable. FINDINGS: Lung Bases: Pulmonary edema, pericardial effusion, cardiomegaly, and bilateral pleural effusions are noted. Skeletal System: No acute abnormality. ABDOMEN: Liver: No significant abnormality. Gallbladder: No significant abnormality. Bile Ducts: No significant abnormality. Pancreas: No significant abnormality. Spleen: No significant abnormality. Adrenals: No significant abnormality. Right Kidney: No significant abnormality. Left Kidney: No significant abnormality. Upper GI tract: No significant abnormality. Lymph Nodes: No significant adenopathy. Aorta: No significant abnormality. Additional Findings: There is trace ascites. Mild anasarca. PELVIS: Colon: No acute abnormality. Urinary Bladder and Distal Ureters: No significant abnormality. Appendix: Removed. Lymph Nodes: No significant adenopathy. Additional Findings: There is trace free fluid. IMPRESSION: 1. Given noncontrast technique, no bowel obstruction or acute inflammatory process in the abdomen/pelvis. 2. Small pericardial and pleural effusions, cardiomegaly, and interstitial pulmonary edema. Signer Name: Ricardo Jaimes MD Signed: 01/25/2020 7:19 PM Workstation Name: [id number] Transcribed By: SW Dictated By: Ricardo Jaimes MD Electronically Authenticated By: Ricardo Jaimes MD Signed Date/Time: 01/25/201918 DD/ 13 TD/TT: - Differential Diagnosis Hypertensive urgency, hyperkalemia, appendicitis, Critical care attestation.: If time is entered above; I have spent that time in minutes in the direct care of this critically ill patient, excluding procedure time. ED Disposition Clinical Impression: Abdominal pain, End-stage renal disease needing dialysis, Hypertensive crisis Disposition: DC-01 TO HOME OR SELFCARE Is pt being admited?: Yes Does the pt Need Aspirin: No Condition: Fair Instructions: Hypertension (ED) Time of Disposition: 19:49 (Hospitalist paged (Dr Gaytan))
--- NOTE | 2020-01-25 17:45 | Consultation ---
History of Present Illness - Reason for Consult Consult date: 01/25/20 end stage renal disease - History of Present Illness Mr. Eddy is a 34yo with ESRD on HD MWF, DM and diabetic gastroparesis who presented to the hospital w/ intractable nausea, vomiting, coffee-ground emesis. He has a hx of prior admissions with similar history. He reports abdominal pain and loose stools. He reports subjective fever. Past History Past Medical History: diabetes, ESRD, hypertension Social history: no significant social history Family history: no significant family history Medications and Allergies Allergies Allergy/AdvReac Type Severity Reaction Status Date / Time No Known Allergies Allergy Verified 11/21/18 17:51 Home Medications Medication Instructions Recorded Confirmed Last Taken Type Lispro Insulin [HumaLOG] 0 unit SQ TID 11/30/19 01/12/20 01/02/20 History Albuterol Sulfate [Albuterol 0.63% 0.63 mg IH Q4HR PRN #30 01/15/20 Unknown Rx NEBS] Dicyclomine [Bentyl] 10 mg PO QID #30 capsule 01/15/20 Unknown Rx Hydralazine HCl 100 mg PO Q8H #120 tablet 01/15/20 Unknown Rx Metoclopramide [Reglan TAB] 10 mg PO QID #120 tablet 01/15/20 Unknown Rx Ondansetron [Zofran ODT TAB] 4 mg PO Q8HR #10 tab.rapdis 01/15/20 Unknown Rx Pantoprazole [Protonix TAB] 40 mg PO DAILY #30 tablet 01/15/20 Unknown Rx Sucralfate [Carafate] 1 gm PO Q6HR 14 Days 01/15/20 Unknown Rx amLODIPine 10 mg PO DAILY #30 01/15/20 Unknown Rx carvediloL [Coreg] 25 mg PO BID #60 01/15/20 Unknown Rx Review of Systems All systems: negative Exam - Vital Signs Vital signs: Vital Signs Pulse Resp BP Pulse Ox 110 H 22 232/125 97 01/25/20 15:49 01/25/20 15:49 01/25/20 15:49 01/25/20 15:49 - General Appearance General appearance: well-developed, well-nourished EENT: ATNC Respiratory: Clear to Ascultation Heart: regular, S1S2 Gastrointestinal: Present: tenderness (diffuse, minimal tenderness w/ palpation) Integumentary: no rash Neurologic: no focal deficit, alert and oriented x3 Musculoskeletal: Present: other (no edema) Psychiatric: cooperative Results - Lab Results 01/25/20 17:33 01/25/20 17:33 Assessment and Plan Assessment: * End stage renal disease (followed at [facility]) * Accelerated hypertension * Coffee ground emesis (chronic per records) * Type II DM w/ diabetic gastroparesis * Anemia secondary to ESRD Plan: * Patient was last dialyzed on Saturday * Resume MWF HD today * UF as tolerated * Have ordered clonidine patch and prn IV hydralazine * Symptomatic management per primary team * Dose medications for renal function * Epogen once BP control improved
[2020-01-25 17:57] LABS: Basophils # (Auto) 0.1 K/mm3 (0.0-0.1); Basophils % (Auto) 1.1 % (0.0-1.8); Eosinophils # (Auto) 0.1 K/mm3 (0.0-0.4); Eosinophils % (Auto) 0.9 % (0.0-4.3); Hematocrit 24.2 % (35.5-45.6); Hemoglobin 8.2 gm/dl (11.8-15.2); Lymphocytes # (Auto) 0.9 K/mm3 (1.2-5.4); Lymphocytes % (Auto) 8.6 % (13.4-35.0); Mean Corpuscular HGB Conc 34 % (32-34); Mean Corpuscular Volume 83 fl (84-94); Monocytes # (Auto) 0.3 K/mm3 (0.0-0.8); Monocytes % (Auto) 3.2 % (0.0-7.3); Platelet Count 374 K/mm3 (140-440); Red Blood Count 2.92 M/mm3 (3.65-5.03); Red Cell Distribution Width 15.9 % (13.2-15.2)
[2020-01-25] MEDS ORDERED: hydrALAZINE 20 MG/1 ML INJ IV PRN (18:12)
[2020-01-25 18:13] LABS: INR 1.04 (0.87-1.13); Partial Thromboplastin Time 37.8 Sec. (24.2-36.6)
[2020-01-25] MEDS ORDERED: SODIUM CHLORIDE 0.9% 100 ML IV PRN (18:13)
[2020-01-25 18:14] LABS: Albumin 3.5 g/dL (3.9-5); BUN/Creatinine Ratio 2; Blood Urea Nitrogen 28 mg/dL (9-20); Calcium 8.9 mg/dL (8.4-10.2); Hemolysis Index 3
[2020-01-25 18:25] LABS: Alanine Aminotransferase < 5 units/L (7-56)
[2020-01-25] MEDS ORDERED: cloNIDine TTS 0.3 MG/24 HR PATCH TD SCH (19:00)
--- NOTE | 2020-01-25 19:10 | Cat Scan Report ---
CT HEAD WITHOUT CONTRAST INDICATION / CLINICAL INFORMATION: Hypertension, vomiting. TECHNIQUE: All CT scans at this location are performed using CT dose reduction for ALARA by means of automated e xposure control. COMPARISON: None available. FINDINGS: HEMORRHAGE: No evidence of intracranial hemorrhage or extra-axial fluid collection. EXTRA-AXIAL SPACES: Cortical sulci, sylvian fissures and basilar cisterns have an unremarkable appear ance. VENTRICULAR SYSTEM: The ventricular system is of normal size and configuration. CEREBRAL PARENCHYMA: No areas of abnormal brain parenchymal attenuation are identified. There is no i ndication of recent infarction. MIDLINE SHIFT OR HERNIATION: There is no mass effect. CEREBELLUM / BRAINSTEM: Brainstem and cerebellum have an unremarkable appearance. INTRACRANIAL VESSELS:No abnormalities are identified on this noncontrast head CT. ORBITS: visualized portions of the orbits have an unremarkable appearance. SOFT TISSUES of HEAD: No significant abnormality. CALVARIUM: Evaluation of bone windows reveals no abnormalities. PARANASAL SINUSES / MASTOID AIR CELLS: Opacification of the mid ethmoid air cells seen on the left. P aranasal sinuses are otherwise free from inflammatory mucosal disease. Mastoid air cells are normally pneumatized. IMPRESSION: 1. No intercranial abnormalities are identified on head CT without contrast. Signer Name: James Lewis MD Signed: 01/25/2020 7:06 PM Workstation Name: [id number]
--- NOTE | 2020-01-25 19:23 | Cat Scan Report ---
CT ABDOMEN AND PELVIS WITHOUT IV CONTRAST INDICATION: Diffuse abdominal pain greatest in the RLQ. COMPARISON: CT 12/25/2019 TECHNIQUE: All CT scans at this facility use dose modulation, automated exposure control, iterative reconstructi on or weight based dosing, when appropriate, to reduce radiation dose to as low as reasonably achieva ble. FINDINGS: Lung Bases: Pulmonary edema, pericardial effusion, cardiomegaly, and bilateral pleural effusions are noted. Skeletal System: No acute abnormality. ABDOMEN: Liver: No significant abnormality. Gallbladder: No significant abnormality. Bile Ducts: No significant abnormality. Pancreas: No significant abnormality. Spleen: No significant abnormality. Adrenals: No significant abnormality. Right Kidney: No significant abnormality. Left Kidney: No significant abnormality. Upper GI tract: No significant abnormality. Lymph Nodes: No significant adenopathy. Aorta: No significant abnormality. Additional Findings: There is trace ascites. Mild anasarca. PELVIS: Colon: No acute abnormality. Urinary Bladder and Distal Ureters: No significant abnormality. Appendix: Removed. Lymph Nodes: No significant adenopathy. Additional Findings: There is trace free fluid. IMPRESSION: 1. Given noncontrast technique, no bowel obstruction or acute inflammatory process in the abdomen/pe lvis. 2. Small pericardial and pleural effusions, cardiomegaly, and interstitial pulmonary edema. Signer Name: Ricardo Jaimes MD Signed: 01/25/2020 7:19 PM Workstation Name: [id number]
[2020-01-25] MEDS ORDERED: hydrALAZINE 20 MG/1 ML INJ ONE (23:21)
[2020-01-26] MEDS ORDERED: SODIUM CHLORIDE*PRIMING MACHINE ONLY FOR DIALYSIS MC ONE (00:11)
[2020-01-26] MEDS ORDERED: ALBUTEROL SULFATE 0.63 MG IH PRN (00:23)
[2020-01-26] MEDS ORDERED: HYDROmorphone 1 MG/1 ML INJ IV PRN (00:25)
[2020-01-26] MEDS ORDERED: ONDANSETRON 4 MG/2 ML INJ IV PRN (00:25)
[2020-01-26] MEDS ORDERED: ONDANSETRON 4 MG/2 ML INJ ONE (00:25)
[2020-01-26] MEDS ORDERED: ACETAMINOPHEN 325 MG TAB PO PRN (00:25)
[2020-01-26] MEDS ORDERED: MORPHINE 2 MG/1 ML INJ IV PRN (00:25)
[2020-01-26] MEDS ORDERED: HYDRALAZINE HCL 100 MG PO SCH (00:30)
[2020-01-26] MEDS ORDERED: hydrALAZINE 20 MG/1 ML INJ IV PRN (00:31)
[2020-01-26] MEDS ORDERED: ONDANSETRON 4 MG/2 ML INJ IV ONE (00:37)
[2020-01-26] MEDS ORDERED: ALBUTEROL 2.5 MG/3 ML NEBU IH PRN (00:47)
[2020-01-26] MEDS ORDERED: PANTOPRAZOLE 40 MG INJ IV SCH (01:00)
[2020-01-26 01:19] LABS: Hematocrit 24.9 % (35.5-45.6); Hemoglobin 8.4 gm/dl (11.8-15.2)
[2020-01-26] MEDS: carvediloL 25 MG TAB PO SCH ×3 (02:13→21:22)
[2020-01-26] MEDS ORDERED: METOCLOPRAMIDE 10 MG/2 ML INJ IV ONE (04:30)
--- NOTE | 2020-01-26 06:53 | History and Physical Report ---
History of Present Illness Date of examination: 01/25/20 Date of admission: 01/26/20 00:41 Chief complaint: Hematemesis 1 day History of present illness: 34-year-old male present with a chief complaint of hematemesis and abdominal pain. The patient states he developed abdominal pain and hematemesis this morning. Patient states he has vomitus with streaks of blood. Patient states his last bowel movement occurred approximately 30 minutes ago and was within normal limits. Patient denies melena or bright red blood per rectum. The patient has a history of end-stage renal disease and normally receives dialysis every Saturday. Last time he received dialysis was 01/22/2020 which was his regular HD on Saturday.He is due for HD today Past Medical History Previous Medical History?: Yes Hypertension: Yes Heart Attack/AMI: Yes Congestive Heart Failure: Yes Diabetes: Yes Asthma: Yes Additional medical history: Ulcerative esophagitis, Gastroparesis HD MWF Surgical History Past Surgical History?: Yes Hx Cholecystectomy: (v,vas) HAppendectomy: Yes Additional Surgical History: right great toe removed, Right chest PERMA-CATH Family History Family history: no significant Social History Smoking Status: Never Smoker Substance Use Type: None (Denies illicit drug use) - Medications Home Medications: Home Medications Medication Instructions Recorded Confirmed Last Taken Type Lispro Insulin [HumaLOG] 0 unit SQ TID 11/30/19 01/12/20 01/02/20 History Albuterol Sulfate [Albuterol 0.63% 0.63 mg IH Q4HR PRN #30 01/15/20 Unknown Rx NEBS] Dicyclomine [Bentyl] 10 mg PO QID #30 capsule 01/15/20 Unknown Rx Hydralazine HCl 100 mg PO Q8H #120 tablet 01/15/20 Unknown Rx Metoclopramide [Reglan TAB] 10 mg PO QID #120 tablet 01/15/20 Unknown Rx Ondansetron [Zofran ODT TAB] 4 mg PO Q8HR #10 tab.rapdis 01/15/20 Unknown Rx Pantoprazole [Protonix TAB] 40 mg PO DAILY #30 tablet 01/15/20 Unknown Rx Sucralfate [Carafate] 1 gm PO Q6HR 14 Days 01/15/20 Unknown Rx amLODIPine 10 mg PO DAILY #30 01/15/20 Unknown Rx carvediloL [Coreg] 25 mg PO BID #60 01/15/20 Unknown Rx Review of Systems ROS: Stated complaint: VOMITING BLOOD Other details as noted in HPI Constitutional: diaphoresis Gastrointestinal: abdominal pain, nausea, vomiting Past History Past Medical History: diabetes, ESRD, hypertension Social history: no significant social history Family history: no significant family history Medications and Allergies Allergies Allergy/AdvReac Type Severity Reaction Status Date / Time No Known Allergies Allergy Verified 11/21/18 17:51 Home Medications Medication Instructions Recorded Confirmed Last Taken Type Lispro Insulin [HumaLOG] 0 unit SQ TID 11/30/19 01/12/20 01/02/20 History Albuterol Sulfate [Albuterol 0.63% 0.63 mg IH Q4HR PRN #30 01/15/20 Unknown Rx NEBS] Dicyclomine [Bentyl] 10 mg PO QID #30 capsule 01/15/20 Unknown Rx Hydralazine HCl 100 mg PO Q8H #120 tablet 01/15/20 Unknown Rx Metoclopramide [Reglan TAB] 10 mg PO QID #120 tablet 01/15/20 Unknown Rx Ondansetron [Zofran ODT TAB] 4 mg PO Q8HR #10 tab.rapdis 01/15/20 Unknown Rx Pantoprazole [Protonix TAB] 40 mg PO DAILY #30 tablet 01/15/20 Unknown Rx Sucralfate [Carafate] 1 gm PO Q6HR 14 Days 01/15/20 Unknown Rx amLODIPine 10 mg PO DAILY #30 01/15/20 Unknown Rx carvediloL [Coreg] 25 mg PO BID #60 01/15/20 Unknown Rx Active Meds: Active Medications Acetaminophen (Tylenol) 650 mg PO Q4H PRN PRN Reason: Pain MILD(1-3)/Fever >100.5/LANZA Albuterol (Proventil) 2.5 mg IH Q4HRT PRN PRN Reason: Wheezing Amlodipine Besylate (Amlodipine) 10 mg PO DAILY [facility] Carvedilol (Coreg) 25 mg PO BID [facility] Last Admin: 01/26/20 02:13 Dose: 25 mg Documented by: Clonidine HCl (Catapres-Tts Patch) 0.3 mg TD Mo [facility] Last Admin: 01/25/20 19:47 Dose: 0.3 mg Documented by: Dicyclomine HCl (Bentyl) 10 mg PO QID [facility] Hydralazine HCl (Apresoline) 10 mg IV Q3H PRN PRN Reason: Blood Pressure Last Admin: 01/26/20 04:56 Dose: 10 mg Documented by: Hydralazine HCl (Apresoline) 100 mg PO Q8HR [facility] Hydromorphone HCl (Dilaudid) 0.5 mg IV Q3H PRN PRN Reason: Pain , Severe (7-10) Sodium Chloride (Nacl 0.9%) 100 mls @ 999 mls/hr IV BRENDAN PRN PRN Reason: Hypotension Metoclopramide HCl (Reglan) 5 mg PO QID [facility] Morphine Sulfate (Morphine) 2 mg IV Q4H PRN PRN Reason: Pain, Moderate (4-6) Ondansetron HCl (Zofran) 4 mg IV Q8H PRN PRN Reason: Nausea And Vomiting Pantoprazole Sodium (Protonix) 40 mg IV BID [facility] Last Admin: 01/26/20 02:13 Dose: 40 mg Documented by: Sodium Chloride (Sodium Chloride Flush Syringe 10 Ml) 10 ml IV BID [facility] Sodium Chloride (Sodium Chloride Flush Syringe 10 Ml) 10 ml IV PRN PRN PRN Reason: LINE FLUSH Sucralfate (Carafate) 1 gm PO Q6HR [facility] Valsartan (Diovan) 320 mg PO QDAY [facility] Exam - Constitutional Vitals: Temp Pulse Resp BP Pulse Ox 99.0 F 107 H 18 183/89 96 01/26/20 03:50 01/26/20 03:50 01/26/20 03:50 01/26/20 03:50 01/26/20 03:50 General appearance: Present: no acute distress, well-nourished - EENT Eyes: Present: PERRL ENT: hearing intact, clear oral mucosa - Neck Neck: Present: supple, normal ROM - Respiratory Respiratory effort: normal Respiratory: bilateral: CTA - Cardiovascular Heart rate: 78 Rhythm: regular Heart Sounds: Present: S1 & S2. Absent: rub, click - Extremities Extremities: pulses symmetrical, No edema Peripheral Pulses: within normal limits - Abdominal General gastrointestinal: Present: soft, non-tender, non-distended, normal bowel sounds Male genitourinary: Present: normal - Rectal Rectal Exam: deferred - Integumentary Integumentary: Present: clear, warm, dry - Musculoskeletal Musculoskeletal: gait normal, strength equal bilaterally - Psychiatric Psychiatric: appropriate mood/affect, intact judgment & insight - Neurologic Neurologic: CNII-XII intact, moves all extremities Results - Labs CBC & Chem 7: 01/26/20 01:00 01/25/20 17:33 Labs: Laboratory Last Values WBC 10.8 K/mm3 (4.5-11.0) 01/25/20 17:33 RBC 2.92 M/mm3 (3.65-5.03) L 01/25/20 17:33 Hgb 8.4 gm/dl (11.8-15.2) L 01/26/20 01:00 Hct 24.9 % (35.5-45.6) L 01/26/20 01:00 MCV 83 fl (84-94) L 01/25/20 17:33 MCH 28 pg (28-32) 01/25/20 17: MCHC 34 % (32-34) 01/25/20 17:33 RDW 15.9 % (13.2-15.2) H 01/25/20 17:33 Plt Count 374 K/mm3 (140-440) 01/25/20 17:33 Lymph % (Auto) 8.6 % (13.4-35.0) L 01/25/20 17:33 [place] % (Auto) 3.2 % (0.0-7.3) 01/25/20 17:33 Eos % (Auto) 0.9 % (0.0-4.3) 01/25/20 17:33 Baso % (Auto) 1.1 % (0.0-1.8) 01/25/20 17:33 Lymph # 0.9 K/mm3 (1.2-5.4) L 01/25/20 17:33 [place] # 0.3 K/mm3 (0.0-0.8) 01/25/20 17:33 Eos # 0.1 K/mm3 (0.0-0.4) 01/25/20 17:33 Baso # 0.1 K/mm3 (0.0-0.1) 01/25/20 17:33 Seg Neutrophils % 86.2 % (40.0-70.0) H 01/25/20 17:33 Seg Neutrophils # 9.3 K/mm3 (1.8-7.7) H 01/25/20 17:33 PT 13.7 Sec. (12.2-14.9) 01/25/20 17:33 INR 1.04 (0.87-1.13) 01/25/20 17:33 APTT 37.8 Sec. (24.2-36.6) H 01/25/20 17:33 Sodium 141 mmol/L (137-145) 01/25/20 17:33 Potassium 5.1 mmol/L (3.6-5.0) H 01/25/20 17:33 Chloride 100.7 mmol/L (98-107) 01/25/20 17:33 Carbon Dioxide 22 mmol/L (22-30) 01/25/20 17:33 Anion Gap 23 mmol/L 01/25/20 17:33 BUN 28 mg/dL (9-20) H 01/25/20 17:33 Creatinine 11.6 mg/dL (0.8-1.5) H 01/25/20 17:33 Estimated GFR 6 ml/min 01/25/20 17:33 BUN/Creatinine Ratio 2 % 01/25/20 17:33 Glucose 201 mg/dL (75-100) H 01/25/20 17:33 POC Glucose 201 (70-105) H 01/25/20 17:21 Calcium 8.9 mg/dL (8.4-10.2) 01/25/20 17:33 Total Bilirubin 0.30 mg/dL (0.1-1.2) 01/25/20 17:33 AST 16 units/L (5-40) 01/25/20 17:33 ALT < 5 units/L (7-56) L 01/25/20 17:33 Alkaline Phosphatase 105 units/L (35-129) 01/25/20 17:33 Total Protein 6.9 g/dL (6.3-8.2) 01/25/20 17:33 Albumin 3.5 g/dL (3.9-5) L 01/25/20 17:33 Albumin/Globulin Ratio 1.0 % 01/25/20 17:33 Lipase 22 units/L (13-60) 01/25/20 17:33 Short CBC 01/25/20 01/26/20 Range/Units 17:33 01:00 WBC 10.8 (4.5-11.0) K/mm3 Hgb 8.2 L 8.4 L (11.8-15.2) gm/dl Hct 24.2 L 24.9 L (35.5-45.6) % Plt Count 374 (140-440) K/mm3 BMP 01/25/20 17:33 Sodium 141 Potassium 5.1 H Chloride 100.7 Carbon Dioxide 22 BUN 28 H Creatinine 11.6 H Glucose 201 H Calcium 8.9 Liver Function 01/25/20 Range/Units 17:33 Total Bilirubin 0.30 (0.1-1.2) mg/dL AST 16 (5-40) units/L ALT < 5 L (7-56) units/L Alkaline Phosphatase 105 (35-129) units/L Albumin 3.5 L (3.9-5) g/dL - Imaging and Cardiology EKG: report reviewed CT scan - abdomen: report reviewed Imaging and Cardiology: CT Abd Lung Bases: Pulmonary edema, pericardial effusion, cardiomegaly, and bilateral pleural effusions are noted. Skeletal System: No acute abnormality. ABDOMEN: Liver: No significant abnormality. Gallbladder: No significant abnormality. Bile Ducts: No significant abnormality. Pancreas: No significant abnormality. Spleen: No significant abnormality. Adrenals: No significant abnormality. Right Kidney: No significant abnormality. Left Kidney: No significant abnormality. Upper GI tract: No significant abnormality. Lymph Nodes: No significant adenopathy. Aorta: No significant abnormality. Additional Findings: There is trace ascites. Mild anasarca. PELVIS: Colon: No acute abnormality. Urinary Javier dder and Distal Ureters: No significant abnormality. Appendix: Removed. Lymph Nodes: No significant adenopathy. Additional Findings: There is trace free fluid. IMPRESSION: 1. Given noncontrast technique, no bowel obstruction or acute inflammatory process in the abdomen/pelvis. 2. Small pericardial and pleural effusions, cardiomegaly, and interstitial pulmonary edema. Perez/IV: IV Catheter Type [Right Chest] INT / Saline Lock Assessment and Plan Advance Directives: Yes (Full code) VTE prophylaxis?: Chemical, Mechanical Plan of care discussed with patient/family: Yes - Patient Problems (1) Upper GI bleeding Current Visit: No Status: Acute Plan to address problem: IV Protonix H/H q8 GI consult Has hx of ulcerative esophagitis (2) Hypertensive crisis Current Visit: Yes Status: Acute Plan to address problem: IV Hydralazine BP meds adjusted IV Hydraalazine given in dialysis room (3) End stage renal disease Current Visit: No Status: Chronic Plan to address problem: For HD today (4) IDDM (insulin dependent diabetes mellitus) Current Visit: Yes Status: Chronic Plan to address problem: Coverage for now Check A1c (5) DVT prophylaxis Current Visit: No Status: Acute
[2020-01-26] MEDS: hydrALAZINE 100 MG TAB PO SCH ×3 (07:42→21:23)
[2020-01-26] MEDS: SUCRALFATE 1 GM/10 ML ORAL LIQD PO SCH ×3 (07:43→18:00)
[2020-01-26] MEDS ORDERED: PANTOPRAZOLE 40 MG TAB PO SCH (10:00)
[2020-01-26] MEDS ORDERED: METOCLOPRAMIDE 10 MG TAB PO SCH (10:00)
--- NOTE | 2020-01-26 10:08 | Progress Note ---
Assessment and Plan Assessment: * End stage renal disease (followed at [facility]) * Accelerated hypertension * Coffee ground emesis (chronic per records) * Type II DM w/ diabetic gastroparesis * Anemia secondary to ESRD Plan: * Continue HD MWF * UF as tolerated * Continue antiHTN medications * Symptomatic management per primary team * Dose medications for renal function * Epogen once BP control improved Subjective Date of service: 01/26/20 Interval history: Reports feeling better today. No episodes of vomiting today. Objective - Vital Signs Vital signs: Vital Signs - 12hr 01/25/20 01/25/20 01/25/20 22:15 22:30 22:45 Temperature Pulse Rate 100 H 99 H 100 H Respiratory Rate Blood Pressure 207/116 211/113 203/114 O2 Sat by Pulse Oximetry 01/25/20 01/25/20 01/25/20 23:00 23:15 23:30 Temperature Pulse Rate 113 H 103 H 103 H Respiratory Rate Blood Pressure 227/132 233/123 233/123 O2 Sat by Pulse Oximetry 01/26/20 01/26/20 01/26/20 01:44 02:12 02:13 Temperature 99.4 F Pulse Rate 106 H 106 H 106 H Respiratory 22 Rate Blood Pressure 216/112 216/112 216/112 O2 Sat by Pulse 100 Oximetry 01/26/20 01/26/20 01/26/20 03:50 08:23 09:35 Temperature 99.0 F 100.4 F H Pulse Rate 107 H 103 H 103 H Respiratory 18 20 Rate Blood Pressure 183/89 187/98 O2 Sat by Pulse 96 97 Oximetry - General Appearance General appearance: well-developed, well-nourished EENT: ATNC Neck: no JVD Respiratory: Present: Clear to Ascultation Cardiology: regular, S1S2 Gastrointestinal: normoactive bowel sounds (mild tenderness with palpation), tenderness, no distended Integumentary: no rash, warm and dry Neurologic: alert and oriented x3 Musculoskeletal: other (no edema) Psychiatric: cooperative - Lab 01/26/20 01:00 01/25/20 17:33 Most recent lab results Calcium 8.9 mg/dL (8.4-10.2) 01/25/20 17:33 Medications & Allergies - Medications Allergies/Adverse Reactions: Allergies No Known Allergies Allergy (Verified 11/21/18 17:51) Home Medications: Home Medications Medication Instructions Recorded Confirmed Last Taken Type Lispro Insulin [HumaLOG] 0 unit SQ TID 11/30/19 01/12/20 01/02/20 History Albuterol Sulfate [Albuterol 0.63% 0.63 mg IH Q4HR PRN #30 01/15/20 Unknown Rx NEBS] Dicyclomine [Bentyl] 10 mg PO QID #30 capsule 01/15/20 Unknown Rx Hydralazine HCl 100 mg PO Q8H #120 tablet 01/15/20 Unknown Rx Metoclopramide [Reglan TAB] 10 mg PO QID #120 tablet 01/15/20 Unknown Rx Ondansetron [Zofran ODT TAB] 4 mg PO Q8HR #10 tab.rapdis 01/15/20 Unknown Rx Pantoprazole [Protonix TAB] 40 mg PO DAILY #30 tablet 01/15/20 Unknown Rx Sucralfate [Carafate] 1 gm PO Q6HR 14 Days 01/15/20 Unknown Rx amLODIPine 10 mg PO DAILY #30 01/15/20 Unknown Rx carvediloL [Coreg] 25 mg PO BID #60 01/15/20 Unknown Rx Active Medications: Generic Name Dose Route Start Last Admin Trade Name Freq PRN Reason Stop Dose Admin Acetaminophen 650 mg 01/26/20 00:25 Tylenol PO Q4H PRN Pain MILD(1-3)/Fever >100.5/LANZA Albuterol 2.5 mg 01/26/20 00:47 Proventil IH Q4HRT PRN Wheezing Amlodipine Besylate 10 mg 01/26/20 10:00 Amlodipine PO DAILY [facility] Carvedilol 25 mg 01/26/20 01:00 01/26/20 02:13 Coreg PO 25 mg BID [facility] Administration Clonidine HCl 0.3 mg 01/25/20 19:00 01/25/20 19:47 Catapres-Tts Patch TD 0.3 mg Mo [facility] Administration Dicyclomine HCl 10 mg 01/26/20 10:00 Bentyl PO QID [facility] Hydralazine HCl 10 mg 01/26/20 00:31 01/26/20 04:56 Apresoline IV 10 mg Q3H PRN Administration Blood Pressure Hydralazine HCl 100 mg 01/26/20 06:00 01/26/20 07:42 Apresoline PO Not Given Q8HR [facility] Hydromorphone HCl 0.5 mg 01/26/20 00:25 Dilaudid IV Q3H PRN Pain , Severe (7-10) Sodium Chloride 100 mls @ 999 mls/hr 01/25/20 18:13 Nacl 0.9% IV BRENDAN PRN Hypotension Metoclopramide HCl 5 mg 01/26/20 10:00 Reglan PO QID [facility] Morphine Sulfate 2 mg 01/26/20 00:25 01/26/20 09:09 Morphine IV 2 mg Q4H PRN Administration Pain, Moderate (4-6) Ondansetron HCl 4 mg 01/26/20 00:25 01/26/20 09:09 Zofran IV 4 mg Q8H PRN Administration Nausea And Vomiting Pantoprazole Sodium 40 mg 01/26/20 10:00 Protonix PO BID [facility] Sodium Chloride 10 ml 01/26/20 10:00 Sodium Chloride Flush Syringe 10 Ml IV BID [facility] Sodium Chloride 10 ml 01/26/20 00:25 Sodium Chloride Flush Syringe 10 Ml IV PRN PRN LINE FLUSH Sucralfate 1 gm 01/26/20 06:00 01/26/20 07:43 Carafate PO Not Given Q6HR [facility] Valsartan 320 mg 01/26/20 10:00 Diovan PO QDAY [facility]
[2020-01-26] MEDS: VALSARTAN 160MG TAB PO SCH (10:41)
[2020-01-26] MEDS: PANTOPRAZOLE 40 MG TAB PO SCH ×2 (10:41→21:23)
[2020-01-26] MEDS: amLODIPine 10 MG TAB PO SCH (10:41)
[2020-01-26] MEDS: DICYCLOMINE 10 MG CAP PO SCH ×4 (10:42→21:22)
[2020-01-26] MEDS: METOCLOPRAMIDE 10 MG TAB PO SCH ×4 (10:42→21:22)
--- NOTE | 2020-01-26 15:01 | Progress Note ---
Assessment and Plan Assessment and plan: Upper GI bleeding, history of ulcerative esophagitis -Patient is on IV Protonix -Monitor H&H every 8 hours -GI consulted -Patient is on n.p.o., on IV fluids Hypertensive emergency -Continue with IV hydralazine -We will start p.o. medications once patient started on diet End-stage renal disease on hemodialysis -Nephrology is following Diabetes mellitus with hyperglycemia -Sliding scale insulin, Accu-Chek, will check A1c DVT prophylaxis -On SCDs because of GI bleed Disposition -Continue inpatient care. Follow GI recommendations. History Interval history: Patient was seen and evaluated this morning, patient denied any nausea or vomiting overnight. Patient was noncooperative. Hospitalist Physical - Physical exam Narrative exam: Not in cardiopulmonary distress. The patient appeared well nourished and normally developed. Vital signs as documented. Head exam is unremarkable. No scleral icterus . Neck is without jugular venous distension, thyromegaly, or carotid bruits. Lungs are clear to auscultation. Cardiac exam reveals regular rate and Rhythm. Abdominal exam reveals normal bowel sounds, nontender, no organomegaly. Extremities are nonedematous and both femoral and pedal pulses are normal. 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 No focal weakness. - Constitutional Vitals: Temp Pulse Resp BP Pulse Ox 100.4 F H 93 H 20 167/94 90 01/26/20 08:23 01/26/20 11:43 01/26/20 11:43 01/26/20 11:43 01/26/20 11:43 General appearance: Present: no acute distress, well-nourished Results - Labs CBC & Chem 7: 01/26/20 01:00 01/25/20 17:33 Labs: Laboratory Last Values WBC 10.8 K/mm3 (4.5-11.0) 01/25/20 17:33 RBC 2.92 M/mm3 (3.65-5.03) L 01/25/20 17:33 Hgb 8.4 gm/dl (11.8-15.2) L 01/26/20 01:00 Hct 24.9 % (35.5-45.6) L 01/26/20 01:00 MCV 83 fl (84-94) L 01/25/20 17:33 MCH 28 pg (28-32) 01/25/20 17:33 MCHC 34 % (32-34) 01/25/20 17:33 RDW 15.9 % (13.2-15.2) H 01/25/20 17:33 Plt Count 374 K/mm3 (140-440) 01/25/20 17:33 Lymph % (Auto) 8.6 % (13.4-35.0) L 01/25/20 17:33 [place] % (Auto) 3.2 % (0.0-7.3) 01/25/20 17:33 Eos % (Auto) 0.9 % (0.0-4.3) 01/25/20 17:33 Baso % (Auto) 1.1 % (0.0-1.8) 01/25/20 17:33 Lymph # 0.9 K/mm3 (1.2-5.4) L 01/25/20 17:33 [place] # 0.3 K/mm3 (0.0-0.8) 01/25/20 17:33 Eos # 0.1 K/mm3 (0.0-0.4) 01/25/20 17:33 Baso # 0.1 K/mm3 (0.0-0.1) 01/25/20 17:33 Seg Neutrophils % 86.2 % (40.0-70.0) H 01/25/20 17:33 Seg Neutrophils # 9.3 K/mm3 (1.8-7.7) H 01/25/20 17:33 PT 13.7 Sec. (12.2-14.9) 01/25/20 17:33 INR 1.04 (0.87-1.13) 01/25/20 17:33 APTT 37.8 Sec. (24.2-36.6) H 01/25/20 17:33 Sodium 141 mmol/L (137-145) 01/25/20 17:33 Potassium 5.1 mmol/L (3.6-5.0) H 01/25/20 17:33 Chloride 100.7 mmol/L (98-107) 01/25/20 17:33 Carbon Dioxide 22 mmol/L (22-30) 01/25/20 17:33 Anion Gap 23 mmol/L 01/25/20 17:33 BUN 28 mg/dL (9-20) H 01/25/20 17:33 Creatinine 11.6 mg/dL (0.8-1.5) H 01/25/20 17:33 Estimated GFR 6 ml/min 01/25/20 17:33 BUN/Creatinine Ratio 2 % 01/25/20 17:33 Glucose 201 mg/dL (75-100) H 01/25/20 17:33 POC Glucose 135 (70-105) H 01/26/20 11:57 Calcium 8.9 mg/dL (8.4-10.2) 01/25/20 17:33 Total Bilirubin 0.30 mg/dL (0.1-1.2) 01/25/20 17:33 AST 16 units/L (5-40) 01/25/20 17:33 ALT < 5 units/L (7-56) L 01/25/20 17:33 Alkaline Phosphatase 105 units/L (35-129) 01/25/20 17:33 Total Protein 6.9 g/dL (6.3-8.2) 01/25/20 17:33 Albumin 3.5 g/dL (3.9-5) L 01/25/20 17:33 Albumin/Globulin Ratio 1.0 % 01/25/20 17:33 Lipase 22 units/L (13-60) 01/25/20 17:33 Perez/IV: IV Catheter Type [Right Chest] INT / Saline Lock Active Medications - Current Medications Current Medications: Generic Name Dose Route Start Last Admin Trade Name Freq PRN Reason Stop Dose Admin Acetaminophen 650 mg 01/26/20 00:25 01/26/20 10:41 Tylenol PO 650 mg Q4H PRN Administration Pain MILD(1-3)/Fever >100.5/LANZA Albuterol 2.5 mg 01/26/20 00:47 Proventil IH Q4HRT PRN Wheezing Amlodipine Besylate 10 mg 01/26/20 10:00 01/26/20 10:41 Amlodipine PO 10 mg DAILY [facility] Administration Carvedilol 25 mg 01/26/20 01:00 01/26/20 10:41 Coreg PO 25 mg BID [facility] Administration Clonidine HCl 0.3 mg 01/25/20 19:00 01/25/20 19:47 Catapres-Tts Patch TD 0.3 mg Mo K[facility]IA Administration Dicyclomine HCl 10 mg 01/26/20 10:00 01/26/20 10:42 Bentyl PO 10 mg QID [facility] Administration Hydralazine HCl 10 mg 01/26/20 00:31 01/26/20 04:56 Apresoline IV 10 mg Q3H PRN Administration Blood Pressure Hydralazine HCl 100 mg 01/26/20 06:00 01/26/20 07:42 Apresoline PO Not Given Q8HR [facility] Hydromorphone HCl 0.5 mg 01/26/20 00:25 Dilaudid IV Q3H PRN Pain , Severe (7-10) Sodium Chloride 100 mls @ 999 mls/hr 01/25/20 18:13 Nacl 0.9% IV BRENDAN PRN Hypotension Metoclopramide HCl 5 mg 01/26/20 10:00 01/26/20 10:42 Reglan PO 5 mg QID [facility] Administration Morphine Sulfate 2 mg 01/26/20 00:25 01/26/20 09:09 Morphine IV 2 mg Q4H PRN Administration Pain, Moderate (4-6) Ondansetron HCl 4 mg 01/26/20 00:25 01/26/20 09:09 Zofran IV 4 mg Q8H PRN Administration Nausea And Vomiting Pantoprazole Sodium 40 mg 01/26/20 10:00 01/26/20 10:41 Protonix PO 40 mg BID [facility] Administration Sodium Chloride 10 ml 01/26/20 10:00 01/26/20 10:43 Sodium Chloride Flush Syringe 10 Ml IV 10 ml BID [facility] Administration Sodium Chloride 10 ml 01/26/20 00:25 Sodium Chloride Flush Syringe 10 Ml IV PRN PRN LINE FLUSH Sucralfate 1 gm 01/26/20 06:00 01/26/20 07:43 Carafate PO Not Given Q6HR [facility] Valsartan 320 mg 01/26/20 10:00 01/26/20 10:41 Diovan PO 320 mg QDAY [facility] Administration
[2020-01-26 15:52] LABS: Hematocrit 22.8 % (35.5-45.6); Hemoglobin 7.6 gm/dl (11.8-15.2)
--- NOTE | 2020-01-26 18:13 | Gastroenterology Consultation ---
History of Present Illness - Reason for Consult Consult date: 01/26/20 N/V Requesting physician: BERNARDINO PHAN - History of Present Illness - History of Present Illness Patient is a 34 y/o male with PMH of ESRD on HD, HTN, DM (uncontrolled, com plicated with neuropathy and likely gastroparesis), remote hx of PUD, and noncompliance who presented to ED with "feeling sick", and N/V. Currently he feels better and reports just wants stomach medicine Has chronic epigastric pain but currently also denies. Requesting to eat. No fever, CP, SOB, wt loss, diarrhea, or constipation. Patient is well known to our service with multiple prior hospitalizations (admitted on a very frequent basis)for similar symptoms with undergoing multiple prior EGDs (last EGD at [facility] last fall) that showed severe ulcerative esophagitis but no high risk lesions. No NSAIDs or liver disease. States he has been compliant with taking PPI at home. Unclear if there has been continued recent marijuana use. Past History Past Medical History: other (See HPI) Past Surgical History: appendectomy, Other (Right great toe amputation, permacath) Social history: single, other (marijuana) Family history: diabetes, hypertension home meds reviwed / updated / reconciled Past History Past Medical History: diabetes, ESRD, hypertension Social history: no significant social history Family history: no significant family history Medications and Allergies Allergies Allergy/AdvReac Type Severity Reaction Status Date / Time No Known Allergies Allergy Verified 11/21/18 17:51 Home Medications Medication Instructions Recorded Confirmed Last Taken Type Lispro Insulin [HumaLOG] 0 unit SQ TID 11/30/19 01/12/20 01/02/20 History Albuterol Sulfate [Albuterol 0.63% 0.63 mg IH Q4HR PRN #30 01/15/20 Unknown Rx NEBS] Dicyclomine [Bentyl] 10 mg PO QID #30 capsule 01/15/20 Unknown Rx Hydralazine HCl 100 mg PO Q8H #120 tablet 01/15/20 Unknown Rx Metoclopramide [Reglan TAB] 10 mg PO QID #120 tablet 01/15/20 Unknown Rx Ondansetron [Zofran ODT TAB] 4 mg PO Q8HR #10 tab.rapdis 01/15/20 Unknown Rx Pantoprazole [Protonix TAB] 40 mg PO DAILY #30 tablet 01/15/20 Unknown Rx Sucralfate [Carafate] 1 gm PO Q6HR 14 Days 01/15/20 Unknown Rx amLODIPine 10 mg PO DAILY #30 01/15/20 Unknown Rx carvediloL [Coreg] 25 mg PO BID #60 01/15/20 Unknown Rx Active Meds: Active Medications Acetaminophen (Tylenol) 650 mg PO Q4H PRN PRN Reason: Pain MILD(1-3)/Fever >100.5/LANZA Last Admin: 01/26/20 10:41 Dose: 650 mg Documented by: Albuterol (Proventil) 2.5 mg IH Q4HRT PRN PRN Reason: Wheezing Amlodipine Besylate (Amlodipine) 10 mg PO DAILY [facility] Last Admin: 01/26/20 10:41 Dose: 10 mg Documented by: Carvedilol (Coreg) 25 mg PO BID [facility] Last Admin: 01/26/20 10:41 Dose: 25 mg Documented by: Clonidine HCl (Catapres-Tts Patch) 0.3 mg TD Mo [facility] Last Admin: 01/25/20 19:47 Dose: 0.3 mg Documented by: Dicyclomine HCl (Bentyl) 10 mg PO QID [facility] Last Admin: 01/26/20 10:42 Dose: 10 mg Documented by: Hydralazine HCl (Apresoline) 10 mg IV Q3H PRN PRN Reason: Blood Pressure Last Admin: 01/26/20 04:56 Dose: 10 mg Documented by: Hydralazine HCl (Apresoline) 100 mg PO Q8HR [facility] Last Admin: 01/26/20 07:42 Dose: Not Given Documented by: Hydromorphone HCl (Dilaudid) 0.5 mg IV Q3H PRN PRN Reason: Pain , Severe (7-10) Sodium Chloride (Nacl 0.9%) 100 mls @ 999 mls/hr IV BRENDAN PRN PRN Reason: Hypotension Metoclopramide HCl (Reglan) 5 mg PO QID [facility] Last Admin: 01/26/20 10:42 Dose: 5 mg Documented by: Morphine Sulfate (Morphine) 2 mg IV Q4H PRN PRN Reason: Pain, Moderate (4-6) Last Admin: 01/26/20 09:09 Dose: 2 mg Documented by: Ondansetron HCl (Zofran) 4 mg IV Q8H PRN PRN Reason: Nausea And Vomiting Last Admin: 01/26/20 09:09 Dose: 4 mg Documented by: Pantoprazole Sodium (Protonix) 40 mg PO BID [facility] Last Admin: 01/26/20 10:41 Dose: 40 mg Documented by: Sodium Chloride (Sodium Chloride Flush Syringe 10 Ml) 10 ml IV BID [facility] Last Admin: 01/26/20 10:43 Dose: 10 ml Documented by: Sodium Chloride (Sodium Chloride Flush Syringe 10 Ml) 10 ml IV PRN PRN PRN Reason: LINE FLUSH Sucralfate (Carafate) 1 gm PO Q6HR [facility] Last Admin: 01/26/20 07:43 Dose: Not Given Documented by: Valsartan (Diovan) 320 mg PO QDAY [facility] Last Admin: 01/26/20 10:41 Dose: 320 mg Documented by: Review of Systems - Review of Systems All systems: negative (10 systems reviewed and neg except above in hpi) Exam - Constitutional Vital Signs: Temp Pulse Resp BP Pulse Ox 100.4 F H 93 H 20 167/94 90 01/26/20 08:23 01/26/20 11:43 01/26/20 11:43 01/26/20 11:43 01/26/20 11:43 General appearance: no acute distress - EENT ENT: hearing intact - Neck Neck: supple - Respiratory Respiratory effort: normal - Gastrointestinal General gastrointestinal: Present: soft, non-tender - Integumentary Integumentary: Present: warm - Neurologic Neurological: alert and oriented x3 - Psychiatric Psychiatric: appropriate mood/affect - Labs CBC & Chem 7: 01/26/20 15:36 01/25/20 17:33 Lab Results: Laboratory Results - last 24 hr 01/25/20 01/25/20 01/25/20 17:33 17:33 17:33 Hgb Hct PT 13.7 INR 1.04 APTT 37.8 H Sodium 141 Potassium 5.1 H Chloride 100.7 Carbon Dioxide 22 Anion Gap 23 BUN 28 H Creatinine 11.6 H Estimated GFR 6 BUN/Creatinine Ratio 2 Glucose 201 H POC Glucose Hemoglobin A1c Calcium 8.9 Total Bilirubin 0.30 AST 16 ALT < 5 L Alkaline Phosphatase 105 Total Protein 6.9 Albumin 3.5 L Albumin/Globulin Ratio 1.0 Lipase 22 01/26/20 01/26/20 01/26/20 01:00 08:35 11:57 Hgb 8.4 L Hct 24.9 L PT INR APTT Sodium Potassium Chloride Carbon Dioxide Anion Gap BUN Creatinine Estimated GFR BUN/Creatinine Ratio Glucose POC Glucose 132 H 135 H Hemoglobin A1c Calcium Total Bilirubin AST ALT Alkaline Phosphatase Total Protein Albumin Albumin/Globulin Ratio Lipase 01/26/20 01/26/20 01/26/20 15:36 15:36 16:52 Hgb 7.6 L Hct 22.8 L PT INR APTT Sodium Potassium Chloride Carbon Dioxide Anion Gap BUN Creatinine Estimated GFR BUN/Creatinine Ratio Glucose POC Glucose 133 H Hemoglobin A1c 6.2 H Calcium Total Bilirubin AST ALT Alkaline Phosphatase Total Protein Albumin Albumin/Globulin Ratio Lipase Assessment and Plan From GI standpoint may advance diet as tolerated and DC with outpatient followup pt compliance education reviewed and is a must please DC patient with protonix 40mg PO daily (he reported not having PPI as outpatient) GI will sign off, please call back if needed - Patient Problems (1) Abdominal pain Current Visit: Yes Status: Acute (2) Gastroparesis Current Visit: No Status: Chronic
[2020-01-27] MEDS: SUCRALFATE 1 GM/10 ML ORAL LIQD PO SCH ×3 (00:30→13:53)
[2020-01-27] MEDS: hydrALAZINE 100 MG TAB PO SCH ×2 (05:53→13:53)
[2020-01-27 08:23] LABS: Basophils # (Auto) 0.1 K/mm3 (0.0-0.1); Basophils % (Auto) 1.2 % (0.0-1.8); Eosinophils # (Auto) 0.1 K/mm3 (0.0-0.4); Eosinophils % (Auto) 2.2 % (0.0-4.3); Hematocrit 22.6 % (35.5-45.6); Hemoglobin 7.5 gm/dl (11.8-15.2); Lymphocytes # (Auto) 1.8 K/mm3 (1.2-5.4); Lymphocytes % (Auto) 30.9 % (13.4-35.0); Mean Corpuscular HGB Conc 33 % (32-34); Mean Corpuscular Volume 82 fl (84-94); Monocytes # (Auto) 0.6 K/mm3 (0.0-0.8); Monocytes % (Auto) 9.7 % (0.0-7.3); Platelet Count 353 K/mm3 (140-440); Red Blood Count 2.75 M/mm3 (3.65-5.03); Red Cell Distribution Width 15.6 % (13.2-15.2)
[2020-01-27 08:45] LABS: Alanine Aminotransferase < 5 units/L (7-56); Albumin 2.7 g/dL (3.9-5); BUN/Creatinine Ratio 2; Blood Urea Nitrogen 19 mg/dL (9-20); Calcium 8.5 mg/dL (8.4-10.2); Hemolysis Index 18
[2020-01-27] MEDS: PANTOPRAZOLE 40 MG TAB PO SCH (09:03)
[2020-01-27] MEDS: METOCLOPRAMIDE 10 MG TAB PO SCH ×2 (09:03→13:53)
[2020-01-27] MEDS: DICYCLOMINE 10 MG CAP PO SCH ×2 (09:03→13:53)
[2020-01-27] MEDS: VALSARTAN 160MG TAB PO SCH (09:04)
[2020-01-27] MEDS: amLODIPine 10 MG TAB PO SCH (09:05)
[2020-01-27] MEDS: carvediloL 25 MG TAB PO SCH (09:05)
--- NOTE | 2020-01-27 09:55 | Progress Note ---
Assessment and Plan Assessment: * End stage renal disease ([facility] at [facility] * Accelerated hypertension * Coffee ground emesis (chronic per records) * Type II DM w/ diabetic gastroparesis * Anemia secondary to ESRD Plan: * Continue HD MWF * UF as tolerated * Continue antiHTN medications * Symptomatic management per primary team * GI recommendations noted * Dose medications for renal function * Epogen once BP control improved Subjective Date of service: 01/27/20 Interval history: Patient tolerated po intake today. Seen on dialysis. He has no complaints Objective - Vital Signs Vital signs: Vital Signs - 12hr 01/26/20 01/27/20 01/27/20 22:55 07:42 09:04 Temperature 98.6 F 98.6 F Pulse Rate 79 77 77 Respiratory 18 18 Rate Blood Pressure 129/75 175/93 175/93 O2 Sat by Pulse 96 98 Oximetry 01/27/20 09:05 Temperature Pulse Rate 77 Respiratory Rate Blood Pressure 175/93 O2 Sat by Pulse Oximetry - General Appearance General appearance: well-developed, well-nourished EENT: ATNC Respiratory: Present: Clear to Ascultation Cardiology: regular, S1S2 Gastrointestinal: normal, no tenderness, no distended Integumentary: no rash, warm and dry Neurologic: alert and oriented x3 Musculoskeletal: other (no edema) Psychiatric: cooperative - Lab 01/27/20 08:10 01/27/20 08:10 Most recent lab results Calcium 8.5 mg/dL (8.4-10.2) 01/27/20 08:10 Medications & Allergies - Medications Allergies/Adverse Reactions: Allergies No Known Allergies Allergy (Verified 11/21/18 17:51) Home Medications: Home Medications Medication Instructions Recorded Confirmed Last Taken Type Lispro Insulin [HumaLOG] 0 unit SQ TID 11/30/19 01/12/20 01/02/20 History Albuterol Sulfate [Albuterol 0.63% 0.63 mg IH Q4HR PRN #30 01/15/20 Unknown Rx NEBS] Dicyclomine [Bentyl] 10 mg PO QID #30 capsule 01/15/20 Unknown Rx Hydralazine HCl 100 mg PO Q8H #120 tablet 01/15/20 Unknown Rx Metoclopramide [Reglan TAB] 10 mg PO QID #120 tablet 01/15/20 Unknown Rx Ondansetron [Zofran ODT TAB] 4 mg PO Q8HR #10 tab.rapdis 01/15/20 Unknown Rx Pantoprazole [Protonix TAB] 40 mg PO DAILY #30 tablet 01/15/20 Unknown Rx Sucralfate [Carafate] 1 gm PO Q6HR 14 Days 01/15/20 Unknown Rx amLODIPine 10 mg PO DAILY #30 01/15/20 Unknown Rx carvediloL [Coreg] 25 mg PO BID #60 01/15/20 Unknown Rx Active Medications: Generic Name Dose Route Start Last Admin Trade Name Freq PRN Reason Stop Dose Admin Acetaminophen 650 mg 01/26/20 00:25 01/26/20 10:41 Tylenol PO 650 mg Q4H PRN Administration Pain MILD(1-3)/Fever >100.5/LANZA Albuterol 2.5 mg 01/26/20 00:47 Proventil IH Q4HRT PRN Wheezing Amlodipine Besylate 10 mg 01/26/20 10:00 01/27/20 09:05 Amlodipine PO 10 mg DAILY KESHIA Administration Carvedilol 25 mg 01/26/20 01:00 01/27/20 09:05 Coreg PO 25 mg BID KESHIA Administration Clonidine HCl 0.3 mg 01/25/20 19:00 01/25/20 19:47 Catapres-Tts Patch TD 0.3 mg Mo KESHIA Administration Dicyclomine HCl 10 mg 01/26/20 10:00 01/27/20 09:03 Bentyl PO 10 mg QID KESHIA Administration Hydralazine HCl 10 mg 01/26/20 00:31 01/26/20 04:56 Apresoline IV 10 mg Q3H PRN Administration Blood Pressure Hydralazine HCl 100 mg 01/26/20 06:00 01/27/20 05:53 Apresoline PO 100 mg Q8HR KESHIA Administration Hydromorphone HCl 0.5 mg 01/26/20 00:25 Dilaudid IV Q3H PRN Pain , Severe (7-10) Sodium Chloride 100 mls @ 999 mls/hr 01/25/20 18:13 Nacl 0.9% IV BRENDAN PRN Hypotension Sodium Chloride 100 mls @ 999 mls/hr 01/27/20 09:19 Nacl 0.9% IV BRENDAN PRN Hypotension Metoclopramide HCl 5 mg 01/26/20 10:00 01/27/20 09:03 Reglan PO 5 mg QID KESHIA Administration Morphine Sulfate 2 mg 01/26/20 00:25 01/26/20 09:09 Morphine IV 2 mg Q4H PRN Administration Pain, Moderate (4-6) Ondansetron HCl 4 mg 01/26/20 00:25 01/26/20 09:09 Zofran IV 4 mg Q8H PRN Administration Nausea And Vomiting Pantoprazole Sodium 40 mg 01/26/20 10:00 01/27/20 09:03 Protonix PO 40 mg BID KESHIA Administration Sodium Chloride 10 ml 01/26/20 10:00 01/27/20 09:05 Sodium Chloride Flush Syringe 10 Ml IV 10 ml BID KESHIA Administration Sodium Chloride 10 ml 01/26/20 00:25 Sodium Chloride Flush Syringe 10 Ml IV PRN PRN LINE FLUSH Sucralfate 1 gm 01/26/20 06:00 01/27/20 05:53 Carafate PO 1 gm Q6HR KESHIA Administration Valsartan 320 mg 01/26/20 10:00 01/27/20 09:04 Diovan PO 320 mg QDAY KESHIA Administration
[2020-01-27] MEDS ORDERED: SODIUM CHLORIDE 0.9% 100 ML IV PRN (11:30)
--- NOTE | 2020-01-27 11:48 | Discharge Summary ---
Providers - Providers Date of Admission: 01/26/20 00:41 Date of discharge: 01/27/20 Attending physician: HILLARY INGRAM MD 01/26/20 00:25 Consult to Physician [CONS] Routine Comment: Consulting Provider: NYA MORENO Physician Instructions: Reason For Exam: End-stage renal disease on hemodialysis 01/26/20 00:36 Consult to Physician [CONS] Routine Comment: Consulting Provider: RJ RICHARDSON Physician Instructions: Reason For Exam: Hematemesis Primary care physician: ORTHOPAEDIC PHYSICIAN ASSISTANT Hospitalization Reason for admission: GI bleed, ESRD on HD Condition: Stable Hospital course: 34-year-old male present with a chief complaint of hematemesis and abdominal pain. The patient states he developed abdominal pain and hematemesis this morning. Patient states he has vomitus with streaks of blood. Patient states his last bowel movement occurred approximately 30 minutes ago and was within nor mal limits. Patient denies melena or bright red blood per rectum. The patient has a history of end-stage renal disease and normally receives dialysis every Saturday. Last time he received dialysis was 01/22/2020 which was his regular HD on Saturday.He is due for HD today. Patient was admitted to the floor and patient was started with IV pantoprazole, no further GI bleeding, H/H was low but stable. GI was consulted and recommend to discharge the patient with PO pantoprazole and recommended to see the patient as an O/P. Patient's N/V subsided, no abdominal pain and tolerated full liquid diet. Nephrology saw the patient and dialyzed the patient as scheduled. patient was hemodynamically stable at the time of discharge. Patient's pantoprazole and sucralfate was sent to the pharmacy. Disposition: TO HOME OR SELFCARE Time spent for discharge: 34 minutes - Discharge Diagnoses (1) Abdominal pain Status: Acute Qualifiers: Abdominal location: generalized Qualified Code(s): R10.84 - Generalized abdominal pain (2) End-stage renal disease needing dialysis Status: Chronic (3) Upper GI bleeding Status: Acute (4) Gastroparesis Status: Chronic Core Measure Documentation - Palliative Care Palliative Care/ Comfort Measures: Not Applicable - Core Measures Any of the following diagnoses?: none Exam - Physical Exam Narrative exam: Not in cardiopulmonary distress. The patient appeared well nourished and normally developed. Vital signs as documented. Head exam is unremarkable. No scleral icterus . Neck is without jugular venous distension, thyromegaly, or carotid bruits. Lungs are clear to auscultation. Cardiac exam reveals regular rate and Rhythm. Abdominal exam reveals normal bowel sounds, nontender, no organomegaly. Extremities are nonedematous and both femoral and pedal pulses are normal. SHAMPOO TECHNICIAN: Alert and oriented 3. No focal weakness. - Constitutional Vitals: Temp Pulse Resp BP Pulse Ox 97.8 F 78 18 145/81 98 01/27/20 09:50 01/27/20 09:50 01/27/20 09:50 01/27/20 09:50 01/27/20 07:42 Plan Activity: no restrictions Weight Bearing Status: Full Weight Bearing Diet: renal Follow up with: PRIMARY CARE, [Primary Care Provider] - 7 Days Prescriptions: Sucralfate [Carafate] 1 gm PO ACHS #120 tablet Pantoprazole [Protonix TAB] 40 mg PO DAILY #30 tablet Ondansetron [Zofran ODT TAB] 4 mg PO Q8HR #10 tab.[email or web address]
[2020-01-27] MEDS ORDERED: SODIUM CHLORIDE*PRIMING MACHINE ONLY FOR DIALYSIS MC ONE (12:00)
[2020-01-27 15:05] VITALS: BP 167/93
== END 2020-01-27 15:45 | disposition home or self-care (01) | DRG 377 ==
LOC: ED 15:22 → DIA 23:38 → 4A 23:39 → UNDOADMIN 23:39 → DIA 23:39 → 4A 01-26 00:41
PROVIDERS: ADMIT Internal Medicine; ATTEND Internal Medicine
PROC: 5A1D70Z Performance of Urinary Filtration, Intermittent, Less than 6 Hours Per Day (ICD-10-PCS; principal; 2020-01-25)
PROC: 5A1D70Z Performance of Urinary Filtration, Intermittent, Less than 6 Hours Per Day (ICD-10-PCS; 2020-01-27)
DX: K92.2 Gastrointestinal hemorrhage, unspecified (principal); N18.6 End stage renal disease; E11.43 Type 2 diabetes mellitus with diabetic autonomic (poly)neuropathy; K31.84 Gastroparesis; E11.40 Type 2 diabetes mellitus with diabetic neuropathy, unspecified; I16.1 Hypertensive emergency; D63.1 Anemia in chronic kidney disease; I13.2 Hypertensive heart and chronic kidney disease with heart failure and with stage 5 chronic kidney disease, or end stage renal disease; I50.9 Heart failure, unspecified; J45.909 Unspecified asthma, uncomplicated; E11.65 Type 2 diabetes mellitus with hyperglycemia; E11.22 Type 2 diabetes mellitus with diabetic chronic kidney disease; Z90.49 Acquired absence of other specified parts of digestive tract; Z89.421 Acquired absence of other right toe(s); Z82.49 Family history of ischemic heart disease and other diseases of the circulatory system; Z83.3 Family history of diabetes mellitus; Z79.899 Other long term (current) drug therapy; Z99.2 Dependence on renal dialysis; I25.2 Old myocardial infarction; Z79.4 Long term (current) use of insulin
CPT/HCPCS: 36415; 70450; 74176; 80053; 82962; 83036; 83690; 85014; 85018; 85025; 85610; 85730; 87116; 96374; 96375; 96376; G0378; C9113; J0360; J2270; J2405; J2765; J3010; J7030

== ENCOUNTER 2020-02-07 04:33 | Inpatient (IN) | payer MEDICAID ==
[2020-02-07] MEDS ORDERED: SODIUM CHLORIDE 0.9% 1000 ML 1,000 ML IV ONE (04:43)
[2020-02-07] MEDS ORDERED: ONDANSETRON 4 MG/2 ML INJ IV ONE ×2 (04:43→05:40)
[2020-02-07] MEDS ORDERED: PANTOPRAZOLE 80 MG in SODIUM CHLORIDE 0.9% 100 ML IV ONE (04:44)
--- NOTE | 2020-02-07 04:46 | Emergency Department Report ---
ED GI Bleed HPI - General Stated complaint: GI BLEED/STOMACH ULCERS Time Seen by Provider: 02/07/20 04:33 - History of Present Illness Initial comments: Patient is a 34-year-old male that presents emergency room complaint abdominal pain and coffee-ground emesis. Patient states his symptoms been going on for 2 days. Patient states symptoms are worsening. Patient dates his abdominal pain is a 10 out of 10. Patient states it is in the epigastric region. Patient states that it is nonradiating. Patient states his abdominal pain is better with rest and worse with movement and vomiting. Patient states that he is not having a fever. Patient denies chest pain. Patient denies shortness of breath. Patient states he has had this before. Patient denies he has a history of GI bleed secondary to stomach ulcers. Patient denies alcohol use. Patient denies smoking. Patient denies eating spicy foods. Patient denies NSAIDs. MD complaint: coffee ground emesis -: Sudden Location: epigastric Radiation: none Severity scale (0 -10): 10 Quality: sharp Consistency: constant Improves with: rest Worsens with: vomiting, movement Context: history of GI bleed Associated Symptoms: abdominal pain, nausea, vomiting. denies: epistaxis, fever/chills, headaches, loss of appetite, malaise, easy bruising, rash, other bleeding, shortness of breath, syncope, weakness - Related Data Home Medications Medication Instructions Recorded Confirmed Last Taken Lispro Insulin [HumaLOG] 0 unit SQ TID 11/30/19 01/12/20 01/02/20 Previous Rx's Medication Instructions Recorded Last Taken Type Albuterol Sulfate [Albuterol 0.63% 0.63 mg IH Q4HR PRN #30 01/15/20 Unknown Rx NEBS] Dicyclomine [Bentyl] 10 mg PO QID #30 capsule 02/09/20 Unknown Rx Hydralazine HCl 100 mg PO Q8H #120 tablet 02/09/20 Unknown Rx Metoclopramide [Reglan TAB] 10 mg PO QID #120 tablet 02/09/20 Unknown Rx Ondansetron [Zofran ODT TAB] 4 mg PO Q8HR #10 tab.rapdis 02/09/20 Unknown Rx Pantoprazole [Protonix TAB] 40 mg PO DAILY #30 tablet 02/09/20 Unknown Rx Sucralfate [Carafate] 1 gm PO ACHS #120 tablet 02/09/20 Unknown Rx amLODIPine 10 mg PO DAILY #30 02/09/20 Unknown Rx carvediloL [Coreg] 25 mg PO BID #60 02/09/20 Unknown Rx chlorproMAZINE [Thorazine] 25 mg PO TID #20 tablet 02/09/20 Unknown Rx Allergies Allergy/AdvReac Type Severity Reaction Status Date / Time No Known Allergies Allergy Verified 11/21/18 17:51 ED Review of Systems ROS: Stated complaint: GI BLEED/STOMACH ULCERS Other details as noted in HPI Constitutional: denies: chills, fever Eyes: denies: eye pain, eye discharge, vision change ENT: denies: ear pain, throat pain Respiratory: denies: cough, shortness of breath, wheezing Cardiovascular: denies: chest pain, palpitations Endocrine: no symptoms reported Gastrointestinal: abdominal pain, nausea, vomiting, hematemesis, melena. denies: diarrhea, constipation, hematochezia Genitourinary: denies: urgency, dysuria Musculoskeletal: denies: back pain, joint swelling, arthralgia Skin: denies: rash, lesions Neurological: denies: headache, weakness, paresthesias Psychiatric: denies: anxiety, depression Hematological/Lymphatic: denies: easy bleeding, easy bruising ED Past Medical Hx - Past Medical History Previous Medical History?: Yes Hx Hypertension: Yes Hx Heart Attack/AMI: Yes Hx Congestive Heart Failure: Yes Hx Diabetes: Yes Hx Deep Vein Thrombosis: No Hx Pulmonary Embolism: No Hx Liver Disease: No Hx Renal Disease: No Hx Sickle Cell Disease: No Hx Kidney Stones: No Hx Asthma: Yes Hx COPD: No Hx Tuberculosis: No Hx HIV: No Additional medical history: Ulcerative esophagitis, Gastroparesis HD MWF - Surgical History Past Surgical History?: Yes Hx Coronary Stent: No Hx Pacemaker: No Hx Internal Defibrillator: No Hx Cholecystectomy: (v,vas) Hx Appendectomy: Yes Additional Surgical History: right great toe removed, Right chest PERMA-CATH - Family History Family history: no significant - Social History Smoking Status: Never Smoker Substance Use Type: None - Medications Home Medications: Home Medications Medication Instructions Recorded Confirmed Last Taken Type Lispro Insulin [HumaLOG] 0 unit SQ TID 11/30/19 01/12/20 01/02/20 History Albuterol Sulfate [Albuterol 0.63% 0.63 mg IH Q4HR PRN #30 01/15/20 Unknown Rx NEBS] Dicyclomine [Bentyl] 10 mg PO QID #30 capsule 02/09/20 Unknown Rx Hydralazine HCl 100 mg PO Q8H #120 tablet 02/09/20 Unknown Rx Metoclopramide [Reglan TAB] 10 mg PO QID #120 tablet 02/09/20 Unknown Rx Ondansetron [Zofran ODT TAB] 4 mg PO Q8HR #10 tab.rapdis 02/09/20 Unknown Rx Pantoprazole [Protonix TAB] 40 mg PO DAILY #30 tablet 02/09/20 Unknown Rx Sucralfate [Carafate] 1 gm PO ACHS #120 tablet 02/09/20 Unknown Rx amLODIPine 10 mg PO DAILY #30 02/09/20 Unknown Rx carvediloL [Coreg] 25 mg PO BID #60 02/09/20 Unknown Rx chlorproMAZINE [Thorazine] 25 mg PO TID #20 tablet 02/09/20 Unknown Rx ED Physical Exam - General General appearance: alert, in no apparent distress - Head Head exam: Present: atraumatic, normocephalic - Eye Eye exam: Present: normal appearance - ENT ENT exam: Present: mucous membranes moist - Neck Neck exam: Present: normal inspection - Respiratory Respiratory exam: Present: normal lung sounds bilaterally. Absent: respiratory distress - Cardiovascular Cardiovascular Exam: Present: regular rate, normal rhythm. Absent: systolic murmur, diastolic murmur, rubs, gallop - GI/Abdominal GI/Abdominal exam: Present: soft, tenderness (Epigastric tenderness), normal b owel sounds - Rectal Rectal exam: Present: deferred - Extremities Exam Extremities exam: Present: normal inspection - Back Exam Back exam: Present: normal inspection - Neurological Exam Neurological exam: Present: alert, oriented X3 - Psychiatric Psychiatric exam: Present: normal affect, normal mood - Skin Skin exam: Present: warm, dry, intact, normal color. Absent: rash ED Course Vital Signs 02/07/20 02/07/20 02/07/20 04:40 04:44 04:45 Temperature 99.0 F Pulse Rate 100 H 111 H Respiratory 24 27 H Rate Blood Pressure 229/132 Blood Pressure 244/137 [Left] O2 Sat by Pulse 100 98 99 Oximetry 02/07/20 02/07/20 02/07/20 05:00 05:15 05:24 Temperature Pulse Rate 105 H 107 H 114 H Respiratory 16 28 H Rate Blood Pressure 226/168 233/125 233/125 Blood Pressure [Left] O2 Sat by Pulse 99 99 Oximetry 02/07/20 02/07/20 02/07/20 05:30 05:45 05:53 Temperature Pulse Rate 102 H 101 H Respiratory 29 H 17 26 H Rate Blood Pressure 198/111 180/102 Blood Pressure [Left] O2 Sat by Pulse 99 99 Oximetry 02/07/20 02/07/20 02/07/20 06:00 06:15 06:30 Temperature Pulse Rate 97 H 102 H 101 H Respiratory 24 21 13 Rate Blood Pressure 174/98 177/103 178/100 Blood Pressure [Left] O2 Sat by Pulse 80 L 94 90 Oximetry 02/07/20 02/07/20 02/07/20 06:46 07:00 07:15 Temperature Pulse Rate 79 102 H 103 H Respiratory 28 H 29 H Rate Blood Pressure 178/100 181/100 192/108 Blood Pressure [Left] O2 Sat by Pulse 99 99 99 Oximetry 02/07/20 02/07/20 02/07/20 07:28 07:30 07:45 Temperature Pulse Rate 111 H 106 H 103 H Respiratory 24 29 H 18 Rate Blood Pressure 191/96 172/93 Blood Pressure 192/108 [Left] O2 Sat by Pulse 98 99 90 Oximetry 02/07/20 02/07/20 02/07/20 08:00 08:16 08:30 Temperature Pulse Rate 108 H 112 H 107 H Respiratory 17 23 25 H Rate Blood Pressure 182/98 182/98 190/110 Blood Pressure [Left] O2 Sat by Pulse 83 L 99 99 Oximetry 02/07/20 02/07/20 02/07/20 08:46 09:00 09:16 Temperature Pulse Rate 113 H 105 H 105 H Respiratory 25 H 28 H 23 Rate Blood Pressure 190/110 197/106 197/106 Blood Pressure [Left] O2 Sat by Pulse 99 99 82 L Oximetry 02/07/20 02/07/20 02/07/20 09:30 09:46 10:00 Temperature Pulse Rate 110 H 123 H 117 H Respiratory 27 H 28 H 23 Rate Blood Pressure 189/100 189/100 213/111 Blood Pressure [Left] O2 Sat by Pulse 99 99 99 Oximetry 02/07/20 02/07/20 02/07/20 10:10 10:15 10:20 Temperature Pulse Rate 115 H 110 H 119 H Respiratory 27 H 27 H Rate Blood Pressure 213/111 213/111 213/111 Blood Pressure [Left] O2 Sat by Pulse 99 99 Oximetry 02/07/20 02/07/20 02/07/20 10:30 10:40 10:50 Temperature Pulse Rate 114 H 127 H 106 H Respiratory 27 H 20 25 H Rate Blood Pressure 212/122 212/122 223/134 Blood Pressure [Left] O2 Sat by Pulse 96 96 97 Oximetry 02/07/20 02/07/20 02/07/20 11:00 11:10 11:20 Temperature Pulse Rate 105 H 107 H 107 H Respiratory 23 19 25 H Rate Blood Pressure 210/120 210/120 210/120 Blood Pressure [Left] O2 Sat by Pulse 96 98 98 Oximetry 02/07/20 02/07/20 02/07/20 11:30 11:40 11:50 Temperature Pulse Rate 110 H 108 H 108 H Respiratory 28 H 22 25 H Rate Blood Pressure 228/132 228/132 228/132 Blood Pressure [Left] O2 Sat by Pulse 98 98 97 Oximetry 02/07/20 02/07/20 02/07/20 12:00 12:04 12:10 Temperature 99.0 F Pulse Rate 110 H 109 H Respiratory 28 H 29 H 28 H Rate Blood Pressure 202/115 1227/13 224/121 Blood Pressure [Left] O2 Sat by Pulse 98 Oximetry 02/07/20 02/07/20 02/07/20 12:20 12:30 12:40 Temperature Pulse Rate 111 H 111 H 109 H Respiratory 28 H 17 28 H Rate Blood Pressure 224/116 225/117 215/120 Blood Pressure [Left] O2 Sat by Pulse 99 97 99 Oximetry 02/07/20 02/07/20 02/07/20 12:50 13:00 13:06 Temperature 99.1 F Pulse Rate 112 H 111 H 110 H Respiratory 27 H 29 H 16 Rate Blood Pressure 214/125 212/128 198/113 Blood Pressure [Left] O2 Sat by Pulse 98 99 99 Oximetry 02/07/20 02/07/20 02/07/20 13:10 13:20 13:21 Temperature Pulse Rate 106 H 101 H 100 H Respiratory 19 23 23 Rate Blood Pressure 198/113 224/124 187/110 Blood Pressure [Left] O2 Sat by Pulse 97 98 99 Oximetry 02/07/20 02/07/20 02/07/20 13:30 13:32 13:36 Temperature Pulse Rate 104 H 104 H 106 H Respiratory 16 20 27 H Rate Blood Pressure 182/97 182/92 Blood Pressure 187/110 [Left] O2 Sat by Pulse 100 99 99 Oximetry 02/07/20 02/07/20 02/07/20 13:40 13:50 14:00 Temperature Pulse Rate 106 H 107 H 107 H Respiratory 27 H 25 H 25 H Rate Blood Pressure 182/97 192/114 201/111 Blood Pressure [Left] O2 Sat by Pulse 99 100 100 Oximetry 02/07/20 14:10 Temperature Pulse Rate Respiratory Rate Blood Pressure 201/111 Blood Pressure [Left] O2 Sat by Pulse Oximetry - Reevaluation(s) Reevaluation #1: Initial evaluation done. Patient brought in by EMS. Report received from EMS. Patient actively vomiting upon arrival coffee-ground emesis. 02/07/20 04:45 Reevaluation #2: Patient given Dilaudid, 8 of Zofran and hydralazine. Patient vomiting improved. Patient's blood pressure improved. Patient's pain is improving. 02/07/20 05:14 Reevaluation #3: Patient resting comfortably. 02/07/20 06:14 Reevaluation #4: I discussed all results with patient. I discussed plan of care with patient. Patient agrees with plan of care and admission. Patient to be admitted to the hospitalist service. 02/07/20 06:31 - Consultations Consultation #1: GI consulted. 02/07/20 06:16 I discussed case with Dr. Santiago. Dr. Santiago recommends admission, n.p.o. now. 02/07/20 06:22 Consultation #2: Hospitalist consulted for admission. Hospitalist to admit patient. Bridge orders placed. 02/07/20 06:31 ED Medical Decision Making - Lab Data Result diagrams: 02/09/20 15:45 02/09/20 15:45 - Radiology Data Radiology results: report reviewed CT OF THE ABDOMEN AND PELVIS WITHOUT CONTRAST INDICATION / CLINICAL INFORMATION: Abdominal pain and GI bleed. TECHNIQUE: All CT scans at this location are performed using CT dose reduction for ALARA by means of automated exposure control. COMPARISON: 01/25/20. FINDINGS: ABDOMEN: A small right pleural effusion has decreased in size. Minimal pericardial fluid has also improved. There is mild interstitial edema with Paco B lines, similar to the prior exam. There is mild generalized body wall edema has improved. A small blood pool density lesion in the right lobe of the liver is stable. High density bile has not changed. The bile ducts, pancreas, spleen, adrenal glands, kidneys and bowel demonstrate no significant abnormality. A few small left para-aortic lymph nodes are stable. PELVIS: The distal ureters, urinary bladder and prostate gland are normal. The appendix may have been removed. There is no evidence of diverticulitis. No abnormal mass or fluid collection is seen. I do not identify a hernia. No acute osseous abnormality is seen. IMPRESSION: 1. No acute intra-abdominal disease is identified. 2. Mild interstitial edema small right pleural effusion, minimal pericardial effusion and mild anasarca are again identified but have improved. - Medical Decision Making Patient is a 34-year-old male that presents with coffee-ground emesis and multiple bouts of vomiting. Patient given Zofran and Dilaudid for pain and vomiting. Patient's vomiting improved. GI consulted and recommends admission for endoscopE. Patient admitted to the hospital service. Patient's labs significant for anemia, end-stage renal disease. Patient also had a lactic acidosis. Patient given fluids. Patient had a CT done which shows no acute abdominal findings. Patient has some pulmonary findings noted. Patient given a Protonix drip and n.p.o. for possible endoscopic evaluation by GI. - Differential Diagnosis GI bleed, coffee-ground emesis, GERD, PUD, anemia Critical Care Time: Yes Critical care time in (mins) excluding proc time.: 35 Critical care attestation.: If time is entered above; I have spent that time in minutes in the direct care of this critically ill patient, excluding procedure time. Critical Care Time: 35 minutes ED Disposition Clinical Impression: Hypertensive emergency, Coffee ground emesis Anemia Qualifiers: Anemia type: unspecified type Qualified Code(s): D64.9 - Anemia, unspecified GI bleed Qualifiers: GI bleed type/associated pathology: unspecified gastrointestinal hemorrhage type Qualified Code(s): K92.2 - Gastrointestinal hemorrhage, unspecified Disposition: 09 OP ADMIT IP TO THIS HOSP Is pt being admited?: Yes Does the pt Need Aspirin: No Condition: Critical Time of Disposition: 06:32
[2020-02-07] MEDS ORDERED: HYDROmorphone 1 MG/1 ML INJ IV ONE (05:18)
[2020-02-07] MEDS ORDERED: hydrALAZINE 20 MG/1 ML INJ IV ONE (05:20)
[2020-02-07 05:56] LABS: Basophils # (Auto) 0.1 K/mm3 (0.0-0.1); Basophils % (Auto) 1.2 % (0.0-1.8); Hematocrit 26.1 % (35.5-45.6); Hemoglobin 8.8 gm/dl (11.8-15.2); Lymphocytes # (Auto) 0.8 K/mm3 (1.2-5.4); Lymphocytes % (Auto) 11.4 % (13.4-35.0); Mean Corpuscular HGB Conc 34 % (32-34); Mean Corpuscular Volume 82 fl (84-94); Monocytes # (Auto) 0.5 K/mm3 (0.0-0.8); Monocytes % (Auto) 6.1 % (0.0-7.3); Platelet Count 422 K/mm3 (140-440); Red Blood Count 3.19 M/mm3 (3.65-5.03); Red Cell Distribution Width 15.9 % (13.2-15.2)
[2020-02-07 06:10] LABS: INR 1.25 (0.87-1.13)
[2020-02-07 06:11] LABS: Partial Thromboplastin Time 39.1 Sec. (24.2-36.6)
[2020-02-07 06:21] LABS: Albumin 3.5 g/dL (3.9-5); Calcium 9.3 mg/dL (8.4-10.2)
--- NOTE | 2020-02-07 07:16 | Cat Scan Report ---
CT OF THE ABDOMEN AND PELVIS WITHOUT CONTRAST INDICATION / CLINICAL INFORMATION: Abdominal pain and GI bleed. TECHNIQUE: All CT scans at this location are performed using CT dose reduction for ALARA by means of automated e xposure control. COMPARISON: 01/25/20. FINDINGS: ABDOMEN: A small right pleural effusion has decreased in size. Minimal pericardial fluid has also imp roved. There is mild interstitial edema with Paco B lines, similar to the prior exam. There is mild generalized body wall edema has improved. A small blood pool density lesion in the right lobe of the liver is stable. High density bile has not changed. The bile ducts, pancreas, spleen, adrenal glands, kidneys and bowel demonstrate no signific ant abnormality. A few small left para-aortic lymph nodes are stable. PELVIS: The distal ureters, urinary bladder and prostate gland are normal. The appendix may have been removed. There is no evidence of diverticulitis. No abnormal mass or fluid collection is seen. I do not identify a hernia. No acute osseous abnormality is seen. IMPRESSION: 1. No acute intra-abdominal disease is identified. 2. Mild interstitial edema small right pleural effusion, minimal pericardial effusion and mild anasar ca are again identified but have improved. Signer Name: Alfie Haque MD Signed: 02/07/2020 7:12 AM Workstation Name: [email or web address]
--- NOTE | 2020-02-07 09:29 | Event Note ---
Date: 02/07/20 spoke with nurse, patient had overt hematemsis so will plan on EGD today, called in GI team, expected procedure for 12:30PM Please continue PPI and NPO status
[2020-02-07] MEDS ORDERED: DEXTROSE 50% IN WATER (25GM) 50 ML SYRINGE IV PRN (09:41)
--- NOTE | 2020-02-07 09:46 | History and Physical Report ---
History of Present Illness Date of examination: 02/07/20 Chief complaint: Throwing up blood again History of present illness: Patient is a 34 yo AA man with a history of ESRD on HD MWF, type 1 DM, hypertension, asthma, CHF, gastroparesis, DVT and Ulcerative esophagitis who presents to [facility] ED with severe worsening intermittent N/V with coffee-ground emesis and ting of red blood that started yesterday morning associated with severe nonradiating epigastric abdominal pains. He was just discharged from here on 01/27/2020 for same thing. Patient doesn't want to talk. He was found to stick his finger down his throat to self-regurgitate. RN called me and wanted to restrain him for intentionally regurgitation. PMH: as hpi PSH: Right AVF placed in [facility] SH: denies tob/etoh/illicit drugs FH: hypertension and DM ROS: Constitutional: denies: fever ENT: denies: throat or neck pain Respiratory: denies: cough, shortness of breath Cardiovascular: denies: chest pain Endocrine: denies unexplained weight loss or gain Gastrointestinal: +abdominal pain, nausea Genitourinary: denies: dysuria Rectal: denies no incontinence, no bleeding, no itching, no discharge Musculoskeletal: denies swelling, myaglia, muscle weakness Skin: denies: rash Neurological: denies: headache Hematological/Lymphatic: denies: easy bleeding or easy bruising Allergic/Immunologic: no urticaria, no allergic rhinitis, no anaphylaxis Psych: denies sadness or hopelessness, SI/HI Medications and Allergies Allergies Allergy/AdvReac Type Severity Reaction Status Date / Time No Known Allergies Allergy Verified 11/21/18 17:51 Home Medications Medication Instructions Recorded Confirmed Last Taken Type Lispro Insulin [HumaLOG] 0 unit SQ TID 11/30/19 01/12/20 01/02/20 History Albuterol Sulfate [Albuterol 0.63% 0.63 mg IH Q4HR PRN #30 01/15/20 Unknown Rx NEBS] Dicyclomine [Bentyl] 10 mg PO QID #30 capsule 01/15/20 Unknown Rx Hydralazine HCl 100 mg PO Q8H #120 tablet 01/15/20 Unknown Rx Metoclopramide [Reglan TAB] 10 mg PO QID #120 tablet 01/15/20 Unknown Rx amLODIPine 10 mg PO DAILY #30 01/15/20 Unknown Rx carvediloL [Coreg] 25 mg PO BID #60 01/15/20 Unknown Rx Ondansetron [Zofran ODT TAB] 4 mg PO Q8HR #10 tab.rapdis 01/27/20 Unknown Rx Pantoprazole [Protonix TAB] 40 mg PO DAILY #30 tablet 01/27/20 Unknown Rx Sucralfate [Carafate] 1 gm PO ACHS #120 tablet 01/27/20 Unknown Rx Active Meds: Active Medications Pantoprazole Sodium 80 mg/ (Sodium Chloride) 100 mls @ 10 mls/hr IV ONCE ONE Stop: 02/07/20 14:43 Last Admin: 02/07/20 05:18 Dose: 8 mg/hr, 10 mls/hr Documented by: Metoclopramide HCl (Reglan) 10 mg IV Q8H PRN PRN Reason: Nausea And Vomiting Ondansetron HCl (Zofran) 4 mg IV Q4H PRN PRN Reason: N/V unrelieved by Reglan Exam - Physical Exam Narrative exam: Gen: thin ill appearing, WDWN, NAD, Awake, Alert, Orientated x 3 HEENT: NCAT, EOMI, PERRL, OP Clear Neck: supple, no adenopathy, no thyromegaly, no JVD CVS/Heart: Regular tachycardia, normal S1S2, pulses present bilaterally Chest/Lungs: CTA B, Symmetrical chest expansion, good air entry bilaterally GI/Abdomen: soft, epigastric tenderness, good bowel sounds, no guarding or rebound /Bladder: no suprapubic tenderness, no CVA or paraspinal tenderness Extermity/Skin: no c/c/e, no obvious rash MSK: FROM x 4 Neuro: CN 2-12 grossly intact, no new focal deficits Psych: calm - Constitutional Vitals: Temp Pulse Resp BP Pulse Ox 99.0 F 112 H 23 182/98 99 02/07/20 04:44 02/07/20 08:16 02/07/20 08:16 02/07/20 08:16 02/07/20 08:16 Results - Labs CBC & Chem 7: 02/07/20 04:43 02/07/20 04:43 Labs: Laboratory Last Values WBC 7.4 K/mm3 (4.5-11.0) 02/07/20 04:43 RBC 3.19 M/mm3 (3.65-5.03) L 02/07/20 04:43 Hgb 8.8 gm/dl (11.8-15.2) L 02/07/20 04:43 Hct 26.1 % (35.5-45.6) L 02/07/20 04:43 MCV 82 fl (84-94) L 02/07/20 04:43 MCH 28 pg (28-32) 02/07/20 04:43 MCHC 34 % (32-34) 02/07/20 04:43 RDW 15.9 % (13.2-15.2) H 02/07/20 04:43 Plt Count 422 K/mm3 (140-440) 02/07/20 04:43 Lymph % (Auto) 11.4 % (13.4-35.0) L 02/07/20 04:43 [place] % (Auto) 6.1 % (0.0-7.3) 02/07/20 04:43 Eos % (Auto) 0.0 % (0.0-4.3) 02/07/20 04:43 Baso % (Auto) 1.2 % (0.0-1.8) 02/07/20 04:43 Lymph # 0.8 K/mm3 (1.2-5.4) L 02/07/20 04:43 [place] # 0.5 K/mm3 (0.0-0.8) 02/07/20 04:43 Eos # 0.0 K/mm3 (0.0-0.4) 02/07/20 04:43 Baso # 0.1 K/mm3 (0.0-0.1) 02/07/20 04:43 Seg Neutrophils % 81.3 % (40.0-70.0) H 02/07/20 04:43 Seg Neutrophils # 6.0 K/mm3 (1.8-7.7) 02/07/20 04:43 PT 15.9 Sec. (12.2-14.9) H 02/07/20 04:43 INR 1.25 (0.87-1.13) H 02/07/20 04:43 APTT 39.1 Sec. (24.2-36.6) H 02/07/20 04:43 Sodium 141 mmol/L (137-145) 02/07/20 04:43 Potassium 4.6 mmol/L (3.6-5.0) 02/07/20 04:43 Chloride 93.0 mmol/L (98-107) L 02/07/20 04:43 Carbon Dioxide 24 mmol/L (22-30) 02/07/20 04:43 Anion Gap 29 mmol/L 02/07/20 04:43 BUN 29 mg/dL (9-20) H 02/07/20 04:43 Creatinine 12.4 mg/dL (0.8-1.5) H 02/07/20 04:43 Estimated GFR 6 ml/min 02/07/20 04:43 BUN/Creatinine Ratio 2 % 02/07/20 04:43 Glucose 247 mg/dL (75-100) H 02/07/20 04:43 Lactic Acid 1.90 mmol/L (0.7-2.0) 02/07/20 08:54 Calcium 9.3 mg/dL (8.4-10.2) 02/07/20 04:43 Total Bilirubin 0.40 mg/dL (0.1-1.2) 02/07/20 04:43 AST 15 units/L (5-40) 02/07/20 04:43 ALT 6 units/L (7-56) L 02/07/20 04:43 Alkaline Phosphatase 98 units/L (35-129) 02/07/20 04:43 Total Protein 7.0 g/dL (6.3-8.2) 02/07/20 04:43 Albumin 3.5 g/dL (3.9-5) L 02/07/20 04:43 Albumin/Globulin Ratio 1.0 % 02/07/20 04:43 Lipase 19 units/L (13-60) 02/07/20 04:43 Perez/IV: IV Catheter Type [Left INT / Saline Lock External Jugular] IV Catheter Type [Right Chest] INT / Saline Lock Assessment and Plan Assessment and plan: Patient is a 34 yo AA man with a history of ESRD on HD MWF, type 1 DM, hypertension, asthma, CHF, gastroparesis, DVT and Ulcerative esophagitis who presents to [facility] ED with severe worsening intermittent N/V with coffee-ground emesis and ting of red blood that started yesterday morning associated with severe nonradiating epigastric abdominal pains. He was just discharged from here on 01/27/2020 for same thing of hematemesis and abdominal pains. Patient doesn't want to talk. He was found to stick his finger down his throat to self- regurgitate. RN called me and wanted to restrain him for intentionally regurgitation. 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
[2020-02-07] MEDS ORDERED: MORPHINE 2 MG/1 ML INJ IV PRN (09:51)
[2020-02-07] MEDS: METOCLOPRAMIDE 10 MG/2 ML INJ IV PRN (10:15)
[2020-02-07] MEDS: hydrALAZINE 20 MG/1 ML INJ IV PRN ×3 (10:15→21:53)
[2020-02-07] MEDS: ONDANSETRON 4 MG/2 ML INJ IV PRN ×2 (10:50→15:12)
[2020-02-07] MEDS ORDERED: LIDOCAINE MPF (2%) 20 MG/1 ML VIAL 5 ML ONE (11:30)
[2020-02-07] MEDS ORDERED: SODIUM CHLORIDE 0.9% 1000 ML 1,000 ML ONE (11:38)
[2020-02-07] MEDS ORDERED: WATER FOR IRRIG STERILE 250 ML BOTTLE IR ONE (11:38)
[2020-02-07] MEDS ORDERED: EPINEPHrine/PF (1:1,000) 1 MG/1 ML INJ ONE (11:39)
[2020-02-07] MEDS ORDERED: INSULIN LISPRO 100 UNIT/ML SUB-Q ONE (12:21)
[2020-02-07] MEDS: INSULIN LISPRO 100 UNIT/ML SUB-Q SCH ×2 (12:22→17:46)
[2020-02-07] MEDS ORDERED: propofoL 200 MG/20 ML VIAL IV ONE ×2 (12:25→12:26)
--- NOTE | 2020-02-07 12:25 | Consultation ---
History of Present Illness - History of Present Illness Thank you for the consultation Patient was evaluated today, around 10:45 AM My assessment and plan are as follows End-stage renal disease: Patient is currently on maintenance hemodialysis , outpatient dialysis days are Saturday and Saturday No emergent indication for dialysis today, hemoglobin is 8.8 potassium is normal Hemodialysis nurse to ultrafiltrate as tolerated, systolic blood pressure must be kept above 100, heart rate below 100 GI bleed, pending EGD status post GI evaluation today Anemia in end-stage renal disease to monitor hemoglobin and hematocrit period ically erythropoietin as needed, further workup may be required depending on the hemoglobin Bone mineral disorder and secondary hyperparathyroidism: Monitor phosphorus and PTH level periodically, avoid binder such as Renvela due to GI toxicity Author: Bryan Santos M.D. [facility], [address] [place] [address] Tel; [phone] Source of information: From patient / old records current records History of present illness 34-year-old male admitted here with GI bleed, denies having any shortness of breath, patient was seen in the ER currently being given medications for nausea vomiting, due to nausea and vomiting patient does not want to talk much, tells me that he is feeling sick Patient was throwing up coffee ground blood and scant amount when I came to see him, he does have a history of gastroesophageal reflux disorder as well as possible gastroparesis Past medical history: ESRD Hypertension Diabetes Current allergies: Reviewed from the current chart Social history: Reviewed from the current chart Family history: Reviewed from the current chart Review of system: Positive for nausea vomiting coffee-ground emesis this is uncontrollable Complaints of severe abdominal pain present for last 2 days All other review of systems negative Physical examination Vitals: Reviewed General: No acute distress HEENT: Oral mucosa moist no pallor or icterus Neck: Supple without any JVD thyromegaly or nodular mass Chest: Clear to auscultation Heart: Regular rate and rhythm S1-S2 heard no S3-S4 Abdomen: Soft has epigastric tenderness bowel sounds present no renal bruit no suprapubic masses no CVA tenderness noted Extremity: Minimal edema dry skin no peripheral cyanosis Endocrine: Thyroid not enlarged Psychiatric: No agitation and aggression noted Musculoskeletal: No joint effusion noted Labs and x-rays: Reviewed from this admission Medications and Allergies Allergies Allergy/AdvReac Type Severity Reaction Status Date / Time No Known Allergies Allergy Verified 11/21/18 17:51 Home Medications Medication Instructions Recorded Confirmed Last Taken Type Lispro Insulin [HumaLOG] 0 unit SQ TID 11/30/19 01/12/20 01/02/20 History Albuterol Sulfate [Albuterol 0.63% 0.63 mg IH Q4HR PRN #30 01/15/20 Unknown Rx NEBS] Dicyclomine [Bentyl] 10 mg PO QID #30 capsule 01/15/20 Unknown Rx Hydralazine HCl 100 mg PO Q8H #120 tablet 01/15/20 Unknown Rx Metoclopramide [Reglan TAB] 10 mg PO QID #120 tablet 01/15/20 Unknown Rx amLODIPine 10 mg PO DAILY #30 01/15/20 Unknown Rx carvediloL [Coreg] 25 mg PO BID #60 01/15/20 Unknown Rx Ondansetron [Zofran ODT TAB] 4 mg PO Q8HR #10 tab.rapdis 01/27/20 Unknown Rx Pantoprazole [Protonix TAB] 40 mg PO DAILY #30 tablet 01/27/20 Unknown Rx Sucralfate [Carafate] 1 gm PO ACHS #120 tablet 01/27/20 Unknown Rx Active Meds: Active Medications Dextrose (D50w (25gm) Syringe) 50 ml IV Q30MIN PRN; Protocol PRN Reason: Hypoglycemia Hydralazine HCl (Apresoline) 10 mg IV Q4HR PRN PRN Reason: Blood Pressure Last Admin: 02/07/20 10:15 Dose: 10 mg Documented by: Pantoprazole Sodium 80 mg/ (Sodium Chloride) 100 mls @ 10 mls/hr IV ONCE ONE Stop: 02/07/20 14:43 Last Admin: 02/07/20 05:18 Dose: 8 mg/hr, 10 mls/hr Documented by: Sodium Chloride (Nacl 0.9% 1000 Ml) 1,000 mls @ 50 mls/hr IV DIRECT KESHIA Insulin Human Lispro (Humalog) 0 unit SUB-Q Q6HR KESHIA; Protocol Last Admin: 02/07/20 12:22 Dose: 3 unit Documented by: Labetalol HCl (Labetalol) 10 mg IV Q4H PRN PRN Reason: Blood Pressure Last Admin: 02/07/20 10:50 Dose: 10 mg Documented by: Metoclopramide HCl (Reglan) 10 mg IV Q8H PRN PRN Reason: Nausea And Vomiting Last Admin: 02/07/20 10:15 Dose: 10 mg Documented by: Morphine Sulfate (Morphine) 2 mg IV Q4H PRN PRN Reason: Pain , Severe (7-10) Ondansetron HCl (Zofran) 4 mg IV Q4H PRN PRN Reason: N/V unrelieved by Reglan Last Admin: 02/07/20 10:50 Dose: 4 mg Documented by: Exam - Vital Signs Vital signs: Vital Signs Pulse Ox 100 02/07/20 04:40 Results - Lab Results 02/07/20 04:43 02/07/20 04:43 Most recent lab results Calcium 9.3 mg/dL (8.4-10.2) 02/07/20 04:43
--- NOTE | 2020-02-07 12:29 | Anesthesia Consultation ---
Anesthesia Consult and Med Hx Date of service: 02/07/20 - Airway Anesthetic Teeth Evaluation: Poor (reports multiple loose teeth but will not specific which teeth) ROM Head & Neck: Adequate Mental/Hyoid Distance: Adequate Mallampati Class: Class III Intubation Access Assessment: Possibly Difficult - Pulmonary Exam CTA: Yes - Cardiac Exam Cardiac Exam: RRR - Pre-Operative Health Status ASA Pre-Surgery Classification: ASA3, Emergency Proposed Anesthetic Plan: MAC - Pulmonary Hx Smoking: No Hx Asthma: Yes - Cardiovascular System Hx Hypertension: Yes Hx Percutaneous Transluminal Coronary Angioplasty (PTCA): No Hx Cardia Arrhythmia: No - Central Nervous System CVA: No Hx Psychiatric Problems: No - Gastrointestinal Hx Gastroesophageal Reflux Disease: Yes (esophagitis) - Endocrine Hx End Stage Renal Disease: Yes Hx Liver Disease: No Hx Insulin Dependent Diabetes: Yes Hx Thyroid Disease: No - Hematic Hx Anemia: Yes - Additional Comments Anesthesia Medical History Comments: PMH mostly obtained from chart review as patient did not answer many questions during my evaluation.
--- NOTE | 2020-02-07 12:29 | Anesthesia Day of Surgery ---
Anesthesia Day of Surgery - Day of Surgery Patient Examined: Yes Patient H&P Reviewed: Yes Patient is NPO: Yes
[2020-02-07] MEDS ORDERED: ONDANSETRON 4 MG/2 ML INJ ONE (12:42)
--- NOTE | 2020-02-07 13:15 | Post Anesthesia Evaluation ---
- Post Anesthesia Evaluation Patient Participated: Yes (returned to baseline) Airway Patent: Yes Stable Respiratory Function: Yes Nausea/Vomiting: No Temp > 96.8F: Yes Pain Manageable: Yes Adequeate Hydration: Yes Anesthesia Complications: No
--- NOTE | 2020-02-07 13:21 | Gastroenterology Consultation ---
History of Present Illness - Reason for Consult Consult date: 02/07/20 Hematemesis Requesting physician: RODRIGUEZ HAMMONDS - History of Present Illness Patient is a 34 y/o male with PMH of ESRD on HD, HTN, DM (uncontrolled, complicated with neuropathy and likely gastroparesis), remote hx of PUD, and noncompliance who presented to ED with N/V and hematemesis His nurse report that he had laura hematemesis witnessed. Additionally he does have old dried blood on his lips and walter Has chronic epigastric pain. Patient is well known to our service with multiple prior hospitalizations (admitted on a very frequent basis)for similar symptoms with undergoing multiple prior EGDs (last EGD at [place] last fall) that showed severe ulcerative esophagitis but no high risk lesions. No NSAIDs or liver disease. Past History Past Medical History: other (See HPI) Past Surgical History: appendectomy, Other (Right great toe amputation, permacath) Social history: single, other (marijuana) Family history: diabetes, hypertension home meds reviewed / updated / reconciled Past History Past Medical History: diabetes, ESRD, hypertension Social history: no significant social history Family history: no significant family history Medications and Allergies Allergies Allergy/AdvReac Type Severity Reaction Status Date / Time No Known Allergies Allergy Verified 11/21/18 17:51 Home Medications Medication Instructions Recorded Confirmed Last Taken Type Lispro Insulin [HumaLOG] 0 unit SQ TID 11/30/19 01/12/20 01/02/20 History Albuterol Sulfate [Albuterol 0.63% 0.63 mg IH Q4HR PRN #30 01/15/20 Unknown Rx NEBS] Dicyclomine [Bentyl] 10 mg PO QID #30 capsule 01/15/20 Unknown Rx Hydralazine HCl 100 mg PO Q8H #120 tablet 01/15/20 Unknown Rx Metoclopramide [Reglan TAB] 10 mg PO QID #120 tablet 01/15/20 Unknown Rx Ondansetron [Zofran ODT TAB] 4 mg PO Q8HR #10 tab.rapdis 01/15/20 Unknown Rx Pantoprazole [Protonix TAB] 40 mg PO DAILY #30 tablet 01/15/20 Unknown Rx Sucralfate [Carafate] 1 gm PO Q6HR 14 Days 01/15/20 Unknown Rx amLODIPine 10 mg PO DAILY #30 01/15/20 Unknown Rx carvediloL [Coreg] 25 mg PO BID #60 01/15/20 Unknown Rx Medications and Allergies Allergies Allergy/AdvReac Type Severity Reaction Status Date / Time No Known Allergies Allergy Verified 11/21/18 17:51 Home Medications Medication Instructions Recorded Confirmed Last Taken Type Lispro Insulin [HumaLOG] 0 unit SQ TID 11/30/19 01/12/20 01/02/20 History Albuterol Sulfate [Albuterol 0.63% 0.63 mg IH Q4HR PRN #30 01/15/20 Unknown Rx NEBS] Dicyclomine [Bentyl] 10 mg PO QID #30 capsule 01/15/20 Unknown Rx Hydralazine HCl 100 mg PO Q8H #120 tablet 01/15/20 Unknown Rx Metoclopramide [Reglan TAB] 10 mg PO QID #120 tablet 01/15/20 Unknown Rx amLODIPine 10 mg PO DAILY #30 01/15/20 Unknown Rx carvediloL [Coreg] 25 mg PO BID #60 01/15/20 Unknown Rx Ondansetron [Zofran ODT TAB] 4 mg PO Q8HR #10 tab.rapdis 01/27/20 Unknown Rx Pantoprazole [Protonix TAB] 40 mg PO DAILY #30 tablet 01/27/20 Unknown Rx Sucralfate [Carafate] 1 gm PO ACHS #120 tablet 01/27/20 Unknown Rx Active Meds: Active Medications Dextrose (D50w (25gm) Syringe) 50 ml IV Q30MIN PRN; Protocol PRN Reason: Hypoglycemia Hydralazine HCl (Apresoline) 10 mg IV Q4HR PRN PRN Reason: Blood Pressure Last Admin: 02/07/20 10:15 Dose: 10 mg Documented by: Pantoprazole Sodium 80 mg/ (Sodium Chloride) 100 mls @ 10 mls/hr IV ONCE ONE Stop: 02/07/20 14:43 Last Admin: 02/07/20 05:18 Dose: 8 mg/hr, 10 mls/hr Documented by: Sodium Chloride (Nacl 0.9% 1000 Ml) 1,000 mls @ 50 mls/hr IV DIRECT KESHIA Insulin Human Lispro (Humalog) 0 unit SUB-Q Q6HR KESHIA; Protocol Last Admin: 02/07/20 12:22 Dose: 3 unit Documented by: Labetalol HCl (Labetalol) 10 mg IV Q4H PRN PRN Reason: Blood Pressure Last Admin: 02/07/20 10:50 Dose: 10 mg Documented by: Metoclopramide HCl (Reglan) 10 mg IV Q8H PRN PRN Reason: Nausea And Vomiting Last Admin: 02/07/20 10:15 Dose: 10 mg Documented by: Morphine Sulfate (Morphine) 2 mg IV Q4H PRN PRN Reason: Pain , Severe (7-10) Ondansetron HCl (Zofran) 4 mg IV Q4H PRN PRN Reason: N/V unrelieved by Reglan Last Admin: 02/07/20 10:50 Dose: 4 mg Documented by: Review of Systems - Review of Systems All systems: negative (10 systems reviewed negative except as mentioned above in history of present illness) Exam - Constitutional Vital Signs: Temp Pulse Resp BP Pulse Ox 99.0 F 109 H 23 223/134 99 02/07/20 04:44 02/07/20 10:50 02/07/20 10:00 02/07/20 10:50 02/07/20 10:00 General appearance: other (Diaphoretic) - Neck Neck: supple - Respiratory Respiratory effort: normal - Cardiovascular Rhythm: other (Mildly tachy) - Gastrointestinal General gastrointestinal: Present: soft - Integumentary Integumentary: Present: warm (Diaphoretic) - Psychiatric Psychiatric: depressed - Labs CBC & Chem 7: 02/07/20 04:43 02/07/20 04:43 Lab Results: Laboratory Results - last 24 hr 02/07/20 02/07/20 02/07/20 04:43 04:43 04:43 WBC 7.4 RBC 3.19 L Hgb 8.8 L Hct 26.1 L MCV 82 L MCH 28 MCHC 34 RDW 15.9 H Plt Count 422 Lymph % (Auto) 11.4 L Al[place] % (Auto) 6.1 Eos % (Auto) 0.0 Baso % (Auto) 1.2 Lymph # 0.8 L Alpine # 0.5 Eos # 0.0 Baso # 0.1 Seg Neutrophils % 81.3 H Seg Neutrophils # 6.0 PT 15.9 H INR 1.25 H APTT 39.1 H Sodium 141 Potassium 4.6 Chloride 93.0 L Carbon Dioxide 24 Anion Gap 29 BUN 29 H Creatinine 12.4 H Estimated GFR 6 BUN/Creatinine Ratio 2 Glucose 247 H POC Glucose Lactic Acid Calcium 9.3 Total Bilirubin 0.40 AST 15 ALT 6 L Alkaline Phosphatase 98 Total Protein 7.0 Albumin 3.5 L Albumin/Globulin Ratio 1.0 Lipase 19 02/07/20 02/07/20 02/07/20 04:43 07:06 08:54 WBC RBC Hgb Hct MCV MCH MCHC RDW Plt Count Lymph % (Auto) Alpine % (Auto) Eos % (Auto) Baso % (Auto) Lymph # Alpine # Eos # Baso # Seg Neutrophils % Seg Neutrophils # PT INR APTT Sodium Potassium Chloride Carbon Dioxide Anion Gap BUN Creatinine Estimated GFR BUN/Creatinine Ratio Glucose POC Glucose Lactic Acid 2.50 H* 2.00 1.90 Calcium Total Bilirubin AST ALT Alkaline Phosphatase Total Protein Albumin Albumin/Globulin Ratio Lipase 02/07/20 12:28 WBC RBC Hgb Hct MCV MCH MCHC RDW Plt Count Lymph % (Auto) Alpine % (Auto) Eos % (Auto) Baso % (Auto) Lymph # Alpine # Eos # Baso # Seg Neutrophils % Seg Neutrophils # PT INR APTT Sodium Potassium Chloride Carbon Dioxide Anion Gap BUN Creatinine Estimated GFR BUN/Creatinine Ratio Glucose POC Glucose 269 H Lactic Acid Calcium Total Bilirubin AST ALT Alkaline Phosphatase Total Protein Albumin Albumin/Globulin Ratio Lipase Assessment and Plan Regarding immediate issue of hematemesis patient did have laura hematemesis therefore continue PPI drip and will proceed with urgent EGD Highest on the differential diagnosis is esophagitis that he had in the past with peptic ulcer disease AVMs etc. also in the differential diagnosis maintain n.p.o. status and continue PPI. Regarding long-term management, patient with recurrent episodes of admission to the hospital issues suspected with compliance as well. Patient will need to maintain his outpatient hemodialysis schedule continue PPI avoid alcohol tobacco cannabis use etc. - Patient Problems (1) GI bleed Current Visit: Yes Status: Acute Qualifiers: GI bleed type/associated pathology: unspecified gastrointestinal hemorrhage type Qualified Code(s): K92.2 - Gastrointestinal hemorrhage, unspecified (2) Anemia Current Visit: Yes Status: Chronic Qualifiers: Anemia type: unspecified type Qualified Code(s): D64.9 - Anemia, unspecified (3) Abdominal pain Current Visit: No Status: Acute Qualifiers: Abdominal location: generalized Qualified Code(s): R10.84 - Generalized abdominal pain (4) Esophagitis Current Visit: No Status: Acute (5) Gastroparesis Current Visit: No Status: Acute (6) Hematemesis Current Visit: No Status: Acute
--- NOTE | 2020-02-07 13:24 | Operative Report ---
Operative Report Operative Report: DOS: 02/07/2020 SURGEON: Jorge Santiago MD EGD REPORT PREOPERATIVE DIAGNOSIS and POSTOPERATIVE DIAGNOSIS: hematemesis ESTIMATED BLOOD LOSS: none DESCRIPTION OF PROCEDURE: A high-resolution EGD scope was passed through the oropharynx, esophagus, stomach, and second portion of duodenum. The scope was carefully withdrawn. Retroflexion was performed in the stomach. At the end of the procedure, the scope was cleaned using normal technique. Vital signs monitored continuously throughout. SEDATION: Provided by [facility]. COMPLICATIONS: None. FINDINGS: * Normal duodenum * Mild amount of old blood in the gastric body this is carefully suctioned. No bleeding lesions or source for GI bleeding seen in the stomach * GE junction approximately 40 cm from the incisors * 3 cm sliding hiatal hernia * Severe LA grade D esophagitis distal 3cm esophagus with ulceration. No active GI bleeding. Small amount of bright red blood in the esophagus. This was cleared out, no active bleeding. No evidence for tears or rupture of the esophagus on endoscopy RECOMMENDATIONS: * Bleeding appears to again be due to the severe distal esophagitis, no more active bleeding with medical management so endoscopic intervention not required. Biopsy was not obtained to decrease risk of recurrent bleeding * Continue PPI drip, avoid retching and vomiting continue supportive care * Medical compliance to avoid recurrent episodes of nausea vomiting and esophagitis will be important * From GI standpoint, may start patient on a clear liquid diet and if hemoglobin stable can advance as tolerated tomorrow
[2020-02-07] MEDS: SODIUM CHLORIDE 0.9% 1000 ML 1,000 ML IV SCH (15:11)
[2020-02-07] MEDS: amLODIPine 10 MG TAB PO SCH (17:46)
[2020-02-07] MEDS ORDERED: LORazepam 2 MG/ML VIAL IV ONE (18:00)
[2020-02-07 20:56] LABS: Hepatitis B Surface Antigen Non-Reactive (Negative); Hepatitis C Virus Antibody Non-Reactive (NonReactive)
[2020-02-07] MEDS ORDERED: SODIUM CHLORIDE 0.9% 100 ML IV PRN ×2 (22:38→22:39)
[2020-02-07] MEDS ORDERED: EPOETIN ALFA 10,000 UNIT/1 ML INJ IV PRN (22:39)
[2020-02-08] MEDS: INSULIN LISPRO 100 UNIT/ML SUB-Q SCH ×4 (00:40→18:34)
[2020-02-08 01:47] LABS: Hematocrit 26.3 % (35.5-45.6); Hemoglobin 8.4 gm/dl (11.8-15.2)
[2020-02-08 04:20] LABS: Calcium 9.8 mg/dL (8.4-10.2)
[2020-02-08] MEDS: hydrALAZINE 20 MG/1 ML INJ IV PRN (05:39)
[2020-02-08 06:37] LABS: Hematocrit 28.5 % (35.5-45.6); Mean Corpuscular HGB Conc 32 % (32-34); Mean Corpuscular Volume 85 fl (84-94); Platelet Count 370 K/mm3 (140-440); Red Blood Count 3.37 M/mm3 (3.65-5.03); Red Cell Distribution Width 16.6 % (13.2-15.2)
--- NOTE | 2020-02-08 08:48 | Gastroenterology Progress Note ---
Assessment and Plan Patient with change in his mood compared to his baseline that I am used to. He does have mild tachycardia as well as a elevating white count. Unclear source, consider chest x-ray rule out aspiration pneumonia cultures of blood, etc. Regarding hematemesis, continue PPI antiemetics diabetes control electrolyte management Regarding long-term management, patient with recurrent episodes of admission to the hospital issues suspected with compliance as well. Patient will need to maintain his outpatient hemodialysis schedule continue PPI avoid alcohol tobacco cannabis use etc. Given no more acute GI issues and no more bleeding, GI will sign off please call back with any questions - Patient Problems (1) GI bleed Current Visit: Yes Status: Acute Qualifiers: GI bleed type/associated pathology: unspecified gastrointestinal hemorrhage type Qualified Code(s): K92.2 - Gastrointestinal hemorrhage, unspecified (2) Anemia Current Visit: Yes Status: Chronic Qualifiers: Anemia type: unspecified type Qualified Code(s): D64.9 - Anemia, unspecified (3) Abdominal pain Current Visit: No Status: Acute Qualifiers: Abdominal location: generalized Qualified Code(s): R10.84 - Generalized abdominal pain (4) Esophagitis Current Visit: No Status: Acute (5) Gastroparesis Current Visit: No Status: Acute (6) Hematemesis Current Visit: No Status: Acute Subjective Date of service: 02/08/20 Principal diagnosis: Hematemesis Interval history: Patient is not responding to questions. He appears to be more comfortable today than he did last night Hemoglobin trending up no more episodes overt bleeding per report Objective - Constitutional Vitals: Temp Pulse Resp BP Pulse Ox 97.7 F 112 H 18 216/116 95 02/08/20 04:10 02/08/20 04:10 02/08/20 04:10 02/08/20 05:39 02/08/20 04:10 General appearance: no acute distress - Neck Neck: supple - Respiratory Respiratory effort: normal - Cardiovascular Rhythm: other (Tachycardic) - Labs CBC & Chem 7: 02/08/20 05:53 02/08/20 03:30 Labs: Laboratory Results - last 24 hr 02/07/20 02/07/20 02/07/20 08:54 12:28 17:40 WBC RBC Hgb Hct MCV MCH MCHC RDW Plt Count Sodium Potassium Chloride Carbon Dioxide Anion Gap BUN Creatinine Estimated GFR BUN/Creatinine Ratio Glucose POC Glucose 269 H 294 H Lactic Acid 1.90 Calcium Hepatitis A IgM Ab Hep Bs Antigen Hep B Core IgM Ab Hepatitis C Antibody 02/07/20 02/07/20 02/08/20 23:41 Unknown 01:17 WBC RBC Hgb 8.4 L Hct 26.3 L MCV MCH MCHC RDW Plt Count Sodium Potassium Chloride Carbon Dioxide Anion Gap BUN Creatinine Estimated GFR BUN/Creatinine Ratio Glucose POC Glucose 262 H Lactic Acid Calcium Hepatitis A IgM Ab Non-reactive Hep Bs Antigen Non-reactive Hep B Core IgM Ab Non-reactive Hepatitis C Antibody Non-reactive 02/08/20 02/08/20 02/08/20 03:30 05:53 06:10 WBC 15.1 H RBC 3.37 L Hgb 9.0 L Hct 28.5 L MCV 85 MCH 27 L MCHC 32 RDW 16.6 H Plt Count 370 Sodium 143 Potassium 4.6 Chloride 93.7 L Carbon Dioxide 26 Anion Gap 28 BUN 39 H Creatinine 15.5 H Estimated GFR 4 BUN/Creatinine Ratio 3 Glucose 266 H POC Glucose 195 H Lactic Acid Calcium 9.8 Hepatitis A IgM Ab Hep Bs Antigen Hep B Core IgM Ab Hepatitis C Antibody
[2020-02-08] MEDS: amLODIPine 10 MG TAB PO SCH (09:56)
--- NOTE | 2020-02-08 10:38 | Progress Note ---
Assessment and Plan # End-stage renal disease: - continue HD MWF per outpatient regimen, due today - daily labs - renally dose meds - renal friendly diet # HTN: ultrafiltrate as tolerated with HD today, systolic blood pressure must be kept above 100, heart rate below 100. BP remains quite elevated, continue oral meds and IV prn for systolic >200 # GI bleed: s/p EGD, appreciate GI # Anemia in end-stage renal disease: hemoglobin 9.0, continue ESAs with HD # Bone mineral disorder and secondary hyperparathyroidism: Monitor phosphorus and PTH level periodically, avoid binder such as Renvela due to GI toxicity Subjective Date of service: 02/08/20 Principal diagnosis: Hematemesis Interval history: Had EGD yesterday. Denies any issues this AM, notes that he is feeling "ok" Objective - Exam Narrative Exam: General: No acute distress HEENT: Oral mucosa moist Neck: Suppless Chest: Clear to auscultation Heart: Regular rate and rhythm Abdomen: Soft Extremity: no edema Psychiatric: No agitation and aggression noted Musculoskeletal: No joint effusion noted Neuro: alert and oriented, no focal deficits - Vital Signs Vital signs: Vital Signs - 12hr 02/07/20 02/08/20 02/08/20 23:08 02:55 04:00 Temperature 97.4 F L Pulse Rate 114 H 111 H Pulse Rate [ 104 H From Monitor] Respiratory 18 20 Rate Blood Pressure 188/101 Blood Pressure [Left] O2 Sat by Pulse 95 98 Oximetry 02/08/20 02/08/20 02/08/20 04:10 04:41 05:39 Temperature 97.7 F Pulse Rate 112 H Pulse Rate [ From Monitor] Respiratory 18 Rate Blood Pressure 221/125 216/116 Blood Pressure 216/116 [Left] O2 Sat by Pulse 95 Oximetry 02/08/20 02/08/20 08:13 09:56 Temperature 99.0 F Pulse Rate 120 H 120 H Pulse Rate [ From Monitor] Respiratory 16 Rate Blood Pressure 168/94 168/94 Blood Pressure [Left] O2 Sat by Pulse 98 Oximetry - Lab 02/08/20 05:53 02/08/20 03:30 Most recent lab results Calcium 9.8 mg/dL (8.4-10.2) 02/08/20 03:30 Medications & Allergies - Medications Allergies/Adverse Reactions: Allergies No Known Allergies Allergy (Verified 11/21/18 17:51) Home Medications: Home Medications Medication Instructions Recorded Confirmed Last Taken Type Lispro Insulin [HumaLOG] 0 unit SQ TID 11/30/19 01/12/20 01/02/20 History Albuterol Sulfate [Albuterol 0.63% 0.63 mg IH Q4HR PRN #30 01/15/20 Unknown Rx NEBS] Dicyclomine [Bentyl] 10 mg PO QID #30 capsule 01/15/20 Unknown Rx Hydralazine HCl 100 mg PO Q8H #120 tablet 01/15/20 Unknown Rx Metoclopramide [Reglan TAB] 10 mg PO QID #120 tablet 01/15/20 Unknown Rx amLODIPine 10 mg PO DAILY #30 01/15/20 Unknown Rx carvediloL [Coreg] 25 mg PO BID #60 01/15/20 Unknown Rx Ondansetron [Zofran ODT TAB] 4 mg PO Q8HR #10 tab.rapdis 01/27/20 Unknown Rx Pantoprazole [Protonix TAB] 40 mg PO DAILY #30 tablet 01/27/20 Unknown Rx Sucralfate [Carafate] 1 gm PO ACHS #120 tablet 01/27/20 Unknown Rx Active Medications: Generic Name Dose Route Start Last Admin Trade Name Freq PRN Reason Stop Dose Admin Amlodipine Besylate 10 mg 02/07/20 18:00 02/08/20 09:56 Amlodipine PO 10 mg QDAY KESHIA Administration Dextrose 50 ml 02/07/20 09:41 D50w (25gm) Syringe IV Q30MIN PRN Hypoglycemia Protocol Epoetin Wale 10,000 unit 02/07/20 22:39 Procrit IV BRENDAN PRN hemodialysis Hydralazine HCl 10 mg 02/07/20 09:50 02/08/20 05:39 Apresoline IV 10 mg Q4HR PRN Administration Blood Pressure Sodium Chloride 1,000 mls @ 50 mls/hr 02/07/20 11:45 02/07/20 15:11 Nacl 0.9% 1000 Ml IV 50 mls/hr DIRECT KESHIA Administration Sodium Chloride 100 mls @ 999 mls/hr 02/07/20 22:38 Nacl 0.9% IV BRENDAN PRN Hypotension Sodium Chloride 100 mls @ 999 mls/hr 02/07/20 22:39 Nacl 0.9% IV BRENDAN PRN Hypotension Insulin Human Lispro 0 unit 02/07/20 12:00 02/08/20 07:06 Humalog SUB-Q 1 unit Q6HR KESHIA Administration Protocol Labetalol HCl 10 mg 02/07/20 09:50 02/07/20 10:50 Labetalol IV 10 mg Q4H PRN Administration Blood Pressure Metoclopramide HCl 10 mg 02/07/20 09:39 02/07/20 10:15 Reglan IV 10 mg Q8H PRN Administration Nausea And Vomiting Morphine Sulfate 2 mg 02/07/20 09:51 Morphine IV Q4H PRN Pain , Severe (7-10) Ondansetron HCl 4 mg 02/07/20 09:39 02/07/20 15:12 Zofran IV 4 mg Q4H PRN Administration N/V unrelieved by Santiago
--- NOTE | 2020-02-08 11:58 | Progress Note ---
Assessment and Plan Assessment and plan: Patient is a 34 yo AA man with a history of ESRD on HD MWF, type 1 DM, hypertension, asthma, CHF, gastroparesis, DVT and Ulcerative esophagitis who presents to [facility] ED with severe worsening intermittent N/V with coffee-ground emesis and ting of red blood that started yesterday morning associated with sev ere nonradiating epigastric abdominal pains. He was just discharged from here on 01/27/2020 for same thing of hematemesis and abdominal pains. Patient doesn't want to talk. He was found to stick his finger down his throat to self- regurgitate. RN called me and wanted to restrain him for intentionally regurgitation. Acute anemia due to UGIB: treat with IV PPI drip, consulted GI, EGD pending, treat with IV antiemetics, repeat H/H Malignant hypertension: NPO, so use IV labetolol and hydralazine IDDM with hyperglycemia: use SSI ESRD on HD: consulted [employer] DVT by h/o: no A/c due to gib Gastroparesis: treat with iv reglan Asthma: prn nebs CHF: careful with IVFs Ulcerative esophagitis: treat with IV protonix DVT ppx scd only due to anemia Self regurgitation: consult Mental health full code 02/08/20: repeat H/H in AM, if stable and cleared by GI (d/w Dr. Santiago at [facility] and he says that he knows patient well and patient is more fatigue and not at his baseline). Patient is self regurgitating, denies SI, await psych evaluation History Interval history: Patient was seen and examined. Follow-up on current diagnosis of GIB. Overnight uneventful as no events directly reported to me. Patient denies any chest pain, shortness breath, nausea/vomiting or severe headaches. Imaging, nursing note, chart, labs and old chart reviewed. Discussed with patient. He doesn't know why he is sticking his finger down his throat. He denies SI. Patient is not himself per Dr. Santiago, more weak Hospitalist Physical - Physical exam Narrative exam: Gen: thin ill appearing, WDWN, NAD, Awake, Alert, Orientated x 3 HEENT: NCAT, EOMI, PERRL, OP Clear Neck: supple, no adenopathy, no thyromegaly, no JVD CVS/Heart: Regular tachycardia, normal S1S2, pulses present bilaterally Chest/Lungs: CTA B, Symmetrical chest expansion, good air entry bilaterally GI/Abdomen: soft, epigastric tenderness, good bowel sounds, no guarding or rebound /Bladder: no suprapubic tenderness, no CVA or paraspinal tenderness Extermity/Skin: no c/c/e, no obvious rash MSK: FROM x 4 Neuro: CN 2-12 grossly intact, no new focal deficits Psych: calm - Constitutional Vitals: Temp Pulse Resp BP Pulse Ox 99.0 F 120 H 16 168/94 98 02/08/20 08:13 02/08/20 09:56 02/08/20 08:13 02/08/20 09:56 02/08/20 08:13 Results - Labs CBC & Chem 7: 02/08/20 05:53 02/08/20 03:30 Labs: Laboratory Last Values WBC 15.1 K/mm3 (4.5-11.0) H 02/08/20 05:53 RBC 3.37 M/mm3 (3.65-5.03) L 02/08/20 05:53 Hgb 9.0 gm/dl (11.8-15.2) L 02/08/20 05:53 Hct 28.5 % (35.5-45.6) L 02/08/20 05:53 MCV 85 fl (84-94) 02/08/20 05:53 MCH 27 pg (28-32) L 02/08/20 05:53 MCHC 32 % (32-34) 02/08/20 05:53 RDW 16.6 % (13.2-15.2) H 02/08/20 05:53 Plt Count 370 K/mm3 (140-440) 02/08/20 05:53 Lymph % (Auto) 11.4 % (13.4-35.0) L 02/07/20 04:43 Gates % (Auto) 6.1 % (0.0-7.3) 02/07/20 04:43 Eos % (Auto) 0.0 % (0.0-4.3) 02/07/20 04:43 Baso % (Auto) 1.2 % (0.0-1.8) 02/07/20 04:43 Lymph # 0.8 K/mm3 (1.2-5.4) L 02/07/20 04:43 Gates # 0.5 K/mm3 (0.0-0.8) 02/07/20 04:43 Eos # 0.0 K/mm3 (0.0-0.4) 02/07/20 04:43 Baso # 0.1 K/mm3 (0.0-0.1) 02/07/20 04:43 Seg Neutrophils % 81.3 % (40.0-70.0) H 02/07/20 04:43 Seg Neutrophils # 6.0 K/mm3 (1.8-7.7) 02/07/20 04:43 PT 15.9 Sec. (12.2-14.9) H 02/07/20 04:43 INR 1.25 (0.87-1.13) H 02/07/20 04:43 APTT 39.1 Sec. (24.2-36.6) H 02/07/20 04:43 Sodium 143 mmol/L (137-145) 02/08/20 03:30 Potassium 4.6 mmol/L (3.6-5.0) 02/08/20 03:30 Chloride 93.7 mmol/L (98-107) L 02/08/20 03:30 Carbon Dioxide 26 mmol/L (22-30) 02/08/20 03:30 Anion Gap 28 mmol/L 02/08/20 03:30 BUN 39 mg/dL (9-20) H 02/08/20 03:30 Creatinine 15.5 mg/dL (0.8-1.5) H 02/08/20 03:30 Estimated GFR 4 ml/min 02/08/20 03:30 BUN/Creatinine Ratio 3 % 02/08/20 03:30 Glucose 266 mg/dL (75-100) H 02/08/20 03:30 POC Glucose 195 (70-105) H 02/08/20 06:10 Lactic Acid 1.90 mmol/L (0.7-2.0) 02/07/20 08:54 Calcium 9.8 mg/dL (8.4-10.2) 02/08/20 03:30 Total Bilirubin 0.40 mg/dL (0.1-1.2) 02/07/20 04:43 AST 15 units/L (5-40) 02/07/20 04:43 ALT 6 units/L (7-56) L 02/07/20 04:43 Alkaline Phosphatase 98 units/L (35-129) 02/07/20 04:43 Total Protein 7.0 g/dL (6.3-8.2) 02/07/20 04:43 Albumin 3.5 g/dL (3.9-5) L 02/07/20 04:43 Albumin/Globulin Ratio 1.0 % 02/07/20 04:43 Lipase 19 units/L (13-60) 02/07/20 04:43 Hepatitis A IgM Ab Non-reactive (NonReactive) 02/07/20 Unknown Hep Bs Antigen Non-reactive (Negative) 02/07/20 Unknown Hep B Core IgM Ab Non-reactive (NonReactive) 02/07/20 Unknown Hepatitis C Antibody Non-reactive (NonReactive) 02/07/20 Unknown Perez/IV: Voiding Method Urinal IV Catheter Type [Left INT / Saline Lock External Jugular] IV Catheter Type [Right Chest] INT / Saline Lock Active Medications - Current Medications Current Medications: Generic Name Dose Route Start Last Admin Trade Name Freq PRN Reason Stop Dose Admin Amlodipine Besylate 10 mg 02/07/20 18:00 02/08/20 09:56 Amlodipine PO 10 mg QDAY KESHIA Administration Dextrose 50 ml 02/07/20 09:41 D50w (25gm) Syringe IV Q30MIN PRN Hypoglycemia Protocol Epoetin Wale 10,000 unit 02/07/20 22:39 Procrit IV BRENDAN PRN hemodialysis Hydralazine HCl 10 mg 02/07/20 09:50 02/08/20 05:39 Apresoline IV 10 mg Q4HR PRN Administration Blood Pressure Sodium Chloride 1,000 mls @ 50 mls/hr 02/07/20 11:45 02/07/20 15:11 Nacl 0.9% 1000 Ml IV 50 mls/hr DIRECT KESHIA Administration Sodium Chloride 100 mls @ 999 mls/hr 02/07/20 22:38 Nacl 0.9% IV BRENDAN PRN Hypotension Sodium Chloride 100 mls @ 999 mls/hr 02/07/20 22:39 Nacl 0.9% IV BRENDAN PRN Hypotension Insulin Human Lispro 0 unit 02/07/20 12:00 02/08/20 07:06 Humalog SUB-Q 1 unit Q6HR KESHIA Administration Protocol Labetalol HCl 10 mg 02/07/20 09:50 02/07/20 10:50 Labetalol IV 10 mg Q4H PRN Administration Blood Pressure Metoclopramide HCl 10 mg 02/07/20 09:39 02/07/20 10:15 Reglan IV 10 mg Q8H PRN Administration Nausea And Vomiting Morphine Sulfate 2 mg 02/07/20 09:51 Morphine IV Q4H PRN Pain , Severe (7-10) Ondansetron HCl 4 mg 02/07/20 09:39 02/07/20 15:12 Zofran IV 4 mg Q4H PRN Administration N/V unrelieved by Reglan Nutrition/Malnutrition Assess - Dietary Evaluation Nutrition/Malnutrition Findings: Nutrition Notes Start: 02/08/20 10:54 Freq: Status: Active Protocol: Document 02/08/20 10:54 JOSUE (Rec: 02/08/20 11:03 JOSUE [id number] [email or web address]) Nutrition Notes Need for Assessment generated from: ekg tech,MST Initial or Follow up Assessment Current Diagnosis CKD (stage V CKD),Diabetes, Hypertension,Heart Failure Other Pertinent Diagnosis Upper GIB, acute anemia, Malignant HTN Current Diet Cl liq Labs/Tests BUN 39 Cr 15.5 BG 266 Pertinent Medications NS at 50ml/hr Height 6 ft 3 in Weight 82.6 kg [place] Body Weight (kg) 89.09 BMI 22.7 Weight Status Appropriate Subjective/Other Information Pt screened for malnutrition risk (unsure of recent wt loss ). He has PMHx of gastroparesis and ulcerative esophagitis and questionable compliance issues. He was recently D/C'ed (01/27/20) for same symptoms. Per RN, pt had been sticking his finger down his throat to self- regurgitate. Pt had EGD yesterday. BP upon admission was 244/137. Burn Absent Trauma Absent GI Symptoms Vomiting Current % PO Negligible Minimum of two criteria No #1 Nutrition Diagnosis Altered GI function Etiology upper GIB, hx of esophagitis As Evidenced by Signs and Symptoms pt on cl liq diet; was vomiting at admission Is patient on ventilator? No Is Patient Ambulatory and/or Out of Bed No REE-([facility]-confined to bed) 5638.032 Calculation Used for Recommendations [facility] Additional Notes Pro needs >1.2g/kg: >99g/day Fluid needs 1-1.5L/day Nutrition Intervention Change Diet Order: Advance diet to Renal/ Consistent CHO when medically feasible Goal #1 Diet advancement to meet nutrient needs Anticipated Discharge Needs: Renal/Consistent CHO diet Follow-Up By: 02/15/20 Additional Comments F/U: diet advancement, BP
--- NOTE | 2020-02-08 12:08 | Consultation ---
History of Present Illness - Reason for Consult Consult date: 02/08/20 Reason for consult: Self-induced vomiting Requesting physician: RODRIGUEZ HAMMONDS - Chief Complaint Chief complaint: Throwing up blood again - History of Present Psychiatric Illness The Patient is a 34 yo AA man with no psychiatric history, with history of multiple medical problems including ESRD on HD MWF, type 1 DM, hypertension, as thma, CHF, gastroparesis, DVT and Ulcerative esophagitis. Psychiatry consulted for self induced regurgitation. Per medical records, patient presented to [facility] ED with severe worsening in termittent N/V with coffee-ground emesis and ting of red blood that started yesterday morning associated with severe nonradiating epigastric abdominal pains. He was just discharged from here on 01/27/2020 for same thing. He was found to stick his finger down his throat to self-regurgitate. In my interview with the patient he denies trying to make himself throw up and denies history of eating disorder. He denies being depressed or excessively nervous. Patient denies panic attacks, recurrent nightmares or flashbacks. Patient denies symptoms suggestive of OCD or PTSD. Patient denies hallucinations, paranoia, thought interference and no features suggestive of hypomania or breann. He completely denies suicidal or homicidal thoughts. PAST PSYCHIATRIC HISTORY: Patient denies PAST MEDICAL HISTORY: ESRD on HD MWF, type 1 DM, hypertension, asthma, CHF, gastroparesis, DVT and Ulcerative esophagitis Family Psychiatric History None reported or documented SOCIAL HISTORY Marital Status: single Living Arrangements: with mother Employment Status: disabled Access to guns/weapons: Patient denies Education: High School History of Abuse: Patient denies Legal History: Patient denies ROS: Constitutional: Negative for weight loss ENT: Negative for stridor Respiratory: Negative for cough or hemoptysis All other systems reviewed and are negative MENTAL STATUS General Appearance and Behavior: age appropriate, good eye contact, cooperative with questioning and polite Cooperation: Cooperative Psychomotor Behavior: within normal limits Mood: OK Affect and affective range: Congruent with stated mood Thought Process: Fluent/Logical and Goal-directed Thought Content: Within reality Speech: Normal volume and Regular rate and rhythm Intellectual Functioning Average Suicidal Ideation: Denies SI Homicidal Ideation: Denies HI Impulse Control: intact Insight and Judgment: normal insight and judgment Memory: Normal Attention: Normal Orientation: alert and oriented Diagnosis: Self induced vomiting ?cause RECOMMENDATIONS MEDICATIONS: Trial of Thorazine 25mg tid po Risks, benefits and alternatives of medications discussed with the patient, questions answered and consent obtained from patient. PSYCHOTHERAPY: Supportive psychotherapy provided MEDICAL: Per primary team DELIRIUM PRECAUTIONS: Please re-orient patient frequently, keep lights on during the day, and minimize benzodiazepines and opiates as these medications could worsen patient's confusion. 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 Medications and Allergies Allergies Allergy/AdvReac Type Severity Reaction Status Date / Time No Known Allergies Allergy Verified 11/21/18 17:51 Home Medications Medication Instructions Recorded Confirmed Last Taken Type Lispro Insulin [HumaLOG] 0 unit SQ TID 11/30/19 01/12/20 01/02/20 History Albuterol Sulfate [Albuterol 0.63% 0.63 mg IH Q4HR PRN #30 01/15/20 Unknown Rx NEBS] Dicyclomine [Bentyl] 10 mg PO QID #30 capsule 01/15/20 Unknown Rx Hydralazine HCl 100 mg PO Q8H #120 tablet 01/15/20 Unknown Rx Metoclopramide [Reglan TAB] 10 mg PO QID #120 tablet 01/15/20 Unknown Rx amLODIPine 10 mg PO DAILY #30 01/15/20 Unknown Rx carvediloL [Coreg] 25 mg PO BID #60 01/15/20 Unknown Rx Ondansetron [Zofran ODT TAB] 4 mg PO Q8HR #10 tab.rapdis 01/27/20 Unknown Rx Pantoprazole [Protonix TAB] 40 mg PO DAILY #30 tablet 01/27/20 Unknown Rx Sucralfate [Carafate] 1 gm PO ACHS #120 tablet 01/27/20 Unknown Rx Active Meds: Active Medications Amlodipine Besylate (Amlodipine) 10 mg PO QDAY KESHIA Last Admin: 02/08/20 09:56 Dose: 10 mg Documented by: Dextrose (D50w (25gm) Syringe) 50 ml IV Q30MIN PRN; Protocol PRN Reason: Hypoglycemia Epoetin Wale (Procrit) 10,000 unit IV BRENDAN PRN PRN Reason: hemodialysis Hydralazine HCl (Apresoline) 10 mg IV Q4HR PRN PRN Reason: Blood Pressure Last Admin: 02/08/20 05:39 Dose: 10 mg Documented by: Sodium Chloride (Nacl 0.9% 1000 Ml) 1,000 mls @ 50 mls/hr IV DIRECT KESHIA Last Admin: 02/07/20 15:11 Dose: 50 mls/hr Documented by: Sodium Chloride (Nacl 0.9%) 100 mls @ 999 mls/hr IV BRENDAN PRN PRN Reason: Hypotension Sodium Chloride (Nacl 0.9%) 100 mls @ 999 mls/hr IV BRENDAN PRN PRN Reason: Hypotension Insulin Human Lispro (Humalog) 0 unit SUB-Q Q6HR KESHIA; Protocol Last Admin: 02/08/20 07:06 Dose: 1 unit Documented by: Labetalol HCl (Labetalol) 10 mg IV Q4H PRN PRN Reason: Blood Pressure Last Admin: 02/07/20 10:50 Dose: 10 mg Documented by: Metoclopramide HCl (Reglan) 10 mg IV Q8H PRN PRN Reason: Nausea And Vomiting Last Admin: 02/07/20 10:15 Dose: 10 mg Documented by: Morphine Sulfate (Morphine) 2 mg IV Q4H PRN PRN Reason: Pain , Severe (7-10) Ondansetron HCl (Zofran) 4 mg IV Q4H PRN PRN Reason: N/V unrelieved by Reglan Last Admin: 02/07/20 15:12 Dose: 4 mg Documented by: Mental Status Exam - Vital signs Last Vital Signs Temp 99.0 F 02/08/20 08:13 Pulse 120 H 02/08/20 09:56 Resp 16 02/08/20 08:13 BP 168/94 02/08/20 09:56 Pulse Ox 98 02/08/20 08:13 Results Result Diagrams: 02/08/20 05:53 02/08/20 03:30 Abnormal lab results 02/07/20 02/07/20 02/07/20 Range/Units 12:28 17:40 23:41 WBC (4.5-11.0) K/mm3 RBC (3.65-5.03) M/mm3 Hgb (11.8-15.2) gm/dl Hct (35.5-45.6) % MCH (28-32) pg RDW (13.2-15.2) % Chloride (98-107) mmol/L BUN (9-20) mg/dL Creatinine (0.8-1.5) mg/dL Glucose (75-100) mg/dL POC Glucose 269 H 294 H 262 H (70-105) 02/08/20 02/08/20 02/08/20 Range/Units 01:17 03:30 05:53 WBC 15.1 H (4.5-11.0) K/mm3 RBC 3.37 L (3.65-5.03) M/mm3 Hgb 8.4 L 9.0 L (11.8-15.2) gm/dl Hct 26.3 L 28.5 L (35.5-45.6) % MCH 27 L (28-32) pg RDW 16.6 H (13.2-15.2) % Chloride 93.7 L (98-107) mmol/L BUN 39 H (9-20) mg/dL Creatinine 15.5 H (0.8-1.5) mg/dL Glucose 266 H (75-100) mg/dL POC Glucose (70-105) 02/08/20 Range/Units 06:10 WBC (4.5-11.0) K/mm3 RBC (3.65-5.03) M/mm3 Hgb (11.8-15.2) gm/dl Hct (35.5-45.6) % MCH (28-32) pg RDW (13.2-15.2) % Chloride (98-107) mmol/L BUN (9-20) mg/dL Creatinine (0.8-1.5) mg/dL Glucose (75-100) mg/dL POC Glucose 195 H (70-105) All other labs normal.
[2020-02-08] MEDS ORDERED: SODIUM CHLORIDE*PRIMING MACHINE ONLY FOR DIALYSIS MC ONE (12:53)
[2020-02-08] MEDS: METOCLOPRAMIDE 10 MG/2 ML INJ IV PRN (12:56)
[2020-02-08] MEDS: chlorproMAZINE 25 MG TAB PO SCH ×2 (14:00→20:53)
[2020-02-09] MEDS: INSULIN LISPRO 100 UNIT/ML SUB-Q SCH ×3 (06:35→13:49)
[2020-02-09] MEDS: SODIUM CHLORIDE 0.9% 1000 ML 1,000 ML IV SCH (06:47)
[2020-02-09] MEDS: chlorproMAZINE 25 MG TAB PO SCH ×2 (08:46→15:17)
[2020-02-09] MEDS: amLODIPine 10 MG TAB PO SCH ×2 (08:46→13:47)
[2020-02-09] MEDS: hydrALAZINE 20 MG/1 ML INJ IV PRN (08:47)
[2020-02-09] MEDS: METOCLOPRAMIDE 10 MG/2 ML INJ IV PRN (09:01)
--- NOTE | 2020-02-09 10:17 | Progress Note ---
Assessment and Plan # End-stage renal disease: - continue HD MWF per outpatient regimen, due tomorrow, no issues noted with HD yesterday - daily labs - renally dose meds - renal friendly diet # HTN: ultrafiltrate as tolerated with HD. BP remains quite elevated, continue oral amlodipine, start carvedilol 25mg BID. Ok to continue IV prn for systolic >200 # GI bleed: s/p EGD, appreciate GI # Anemia in end-stage renal disease: hemoglobin 9.0, continue ESAs with HD # Bone mineral disorder and secondary hyperparathyroidism: Monitor phosphorus and PTH level periodically, avoid binder such as Renvela due to GI toxicity Subjective Date of service: 02/09/20 Principal diagnosis: Hematemesis Interval history: No acute issues noted. Resting comfortably this AM Objective - Exam Narrative Exam: General: No acute distress HEENT: Oral mucosa moist Neck: Suppless Chest: Clear to auscultation Heart: Regular rate and rhythm Abdomen: Soft Extremity: no edema Psychiatric: No agitation and aggression noted Musculoskeletal: No joint effusion noted Neuro: alert and oriented, no focal deficits - Vital Signs Vital signs: Vital Signs - 12hr 02/08/20 02/09/20 02/09/20 23:33 03:15 08:26 Temperature 99.0 F 98.0 F 99.3 F Pulse Rate 107 H 105 H 107 H Respiratory 18 18 20 Rate Blood Pressure 146/92 169/94 Blood Pressure 190/101 [Left] O2 Sat by Pulse 96 97 99 Oximetry 02/09/20 02/09/20 08:46 08:47 Temperature Pulse Rate Respiratory Rate Blood Pressure 190/101 190/101 Blood Pressure [Left] O2 Sat by Pulse Oximetry - Lab 02/08/20 05:53 02/08/20 03:30 Most recent lab results Calcium 9.8 mg/dL (8.4-10.2) 02/08/20 03:30 Medications & Allergies - Medications Allergies/Adverse Reactions: Allergies No Known Allergies Allergy (Verified 11/21/18 17:51) Home Medications: Home Medications Medication Instructions Recorded Confirmed Last Taken Type Lispro Insulin [HumaLOG] 0 unit SQ TID 11/30/19 01/12/20 01/02/20 History Albuterol Sulfate [Albuterol 0.63% 0.63 mg IH Q4HR PRN #30 01/15/20 Unknown Rx NEBS] Dicyclomine [Bentyl] 10 mg PO QID #30 capsule 01/15/20 Unknown Rx Hydralazine HCl 100 mg PO Q8H #120 tablet 01/15/20 Unknown Rx Metoclopramide [Reglan TAB] 10 mg PO QID #120 tablet 01/15/20 Unknown Rx amLODIPine 10 mg PO DAILY #30 01/15/20 Unknown Rx carvediloL [Coreg] 25 mg PO BID #60 01/15/20 Unknown Rx Ondansetron [Zofran ODT TAB] 4 mg PO Q8HR #10 tab.rapdis 01/27/20 Unknown Rx Pantoprazole [Protonix TAB] 40 mg PO DAILY #30 tablet 01/27/20 Unknown Rx Sucralfate [Carafate] 1 gm PO ACHS #120 tablet 01/27/20 Unknown Rx Active Medications: Generic Name Dose Route Start Last Admin Trade Name Freq PRN Reason Stop Dose Admin Amlodipine Besylate 10 mg 02/07/20 18:00 02/09/20 08:46 Amlodipine PO 10 mg QDAY KESHIA Administration Chlorpromazine HCl 25 mg 02/08/20 14:00 02/09/20 08:46 Thorazine PO 25 mg TID KESHIA Administration Dextrose 50 ml 02/07/20 09:41 D50w (25gm) Syringe IV Q30MIN PRN Hypoglycemia Protocol Epoetin Wale 10,000 unit 02/07/20 22:39 02/08/20 13:45 Procrit IV 10,000 unit BRENDAN PRN Administration hemodialysis Hydralazine HCl 10 mg 02/07/20 09:50 02/09/20 08:47 Apresoline IV 10 mg Q4HR PRN Administration Blood Pressure Sodium Chloride 1,000 mls @ 50 mls/hr 02/07/20 11:45 02/09/20 06:47 Nacl 0.9% 1000 Ml IV 50 mls/hr DIRECT KESHIA Administration Sodium Chloride 100 mls @ 999 mls/hr 02/07/20 22:38 Nacl 0.9% IV BRENDAN PRN Hypotension Sodium Chloride 100 mls @ 999 mls/hr 02/07/20 22:39 Nacl 0.9% IV BRENDAN PRN Hypotension Insulin Human Lispro 0 unit 02/07/20 12:00 02/09/20 06:35 Humalog SUB-Q 2 unit Q6HR KESHIA Administration Protocol Labetalol HCl 10 mg 02/07/20 09:50 02/07/20 10:50 Labetalol IV 10 mg Q4H PRN Administration Blood Pressure Metoclopramide HCl 10 mg 02/07/20 09:39 02/09/20 09:01 Reglan IV 10 mg Q8H PRN Administration Nausea And Vomiting Morphine Sulfate 2 mg 02/07/20 09:51 Morphine IV Q4H PRN Pain , Severe (7-10) Ondansetron HCl 4 mg 02/07/20 09:39 02/07/20 15:12 Zofran IV 4 mg Q4H PRN Administration N/V unrelieved by Santiago
[2020-02-09] MEDS ORDERED: carvediloL 25 MG TAB PO SCH (11:00)
--- NOTE | 2020-02-09 11:37 | XRay Report ---
CHEST 1 VIEW 02/09/2020 10:27 AM INDICATION / CLINICAL INFORMATION: PNA. COMPARISON: Chest x-ray on 01/02/2020 FINDINGS: SUPPORT DEVICES: Stable position of right IJ central venous catheter. HEART / MEDIASTINUM: Stable borderline cardiomegaly. LUNGS / PLEURA: No significant pulmonary or pleural abnormality. No pneumothorax. ADDITIONAL FINDINGS: No significant additional findings. IMPRESSION: 1. No acute findings. No adverse change from the prior exam. Signer Name: Alex Hernandez MD Signed: 02/09/2020 11:33 AM Workstation Name: [id number]
[2020-02-09 13:06] VITALS: BP 167/95
--- NOTE | 2020-02-09 13:36 | Discharge Summary ---
Providers - Providers Date of Admission: 02/07/20 09:37 Date of discharge: 02/09/20 Attending physician: ANASTACIO CEDEÑO 02/07/20 06:23 Consult to Physician [CONS] Routine Comment: Dr. Harp spoke with Dr. Adamson @ 0620 Consulting Provider: ERNESTINA ADAMSON Physician Instructions: Reason For Exam: gi bleed. abd paIN 02/07/20 09:38 Consult to Physician [CONS] Routine Comment: Consulting Provider: NYA MORENO Physician Instructions: Reason For Exam: ESRD on HD, pt known to you 02/07/20 12:23 Consult to Physician [CONS] Routine Comment: Consulting Provider: TEJAL TOVAR Physician Instructions: Reason For Exam: self regurgitation 02/08/20 11:21 Consult to Mental Health [CONS] Urgent Reason For Exam: psych Primary care physician: WELFARE PROJECT MANAGER Hospitalization Condition: Critical Pertinent studies: Chest x-ray, abdominal pelvis CT Hospital course: Patient is a 34 yo AA man with a history of ESRD on HD MWF, type 1 DM, hypertension, asthma, CHF, gastroparesis, DVT and Ulcerative esophagitis who presents to [facility] ED with severe worsening intermittent N/V with coffee-ground emesis associated with severe nonradiating epigastric abdominal pains. He was just discharged from here on 01/27/2020 for same complaints of hematemesis and abdominal pains. He was admitted for further evaluation and management, GI was consulted, he was placed on IV PPI with Protonix. He was found to stick his finger down his throat to self-regurgitate by RN. Psych was consulted and did not feel that patient has any eating disorder. Patient was counseled and he denied any further self regurgitation. He was started on diet and was tolerating. Patient was then discharged home in stable condition with outpatient follow-up. Discharge diagnosis: Acute on chronic anemia due to UGIB: Likely due to recurrent vomiting episode. Treated with IV PPI drip, consulted GI, no plan for EGD pending, cont PPI outpt Malignant hypertension: s/p IV labetolol and hydralazine. adjusted BP meds IDDM with hyperglycemia: use SSI ESRD on HD: consulted Sheet Tailer, on TTS schedule DVT by h/o: no A/c due to GI bleed Gastroparesis: treated with iv reglan Asthma: prn nebs CHF: diastolic, stable, compensated Ulcerative esophagitis: treated with IV protonix Self regurgitation: consulted Mental health. Outpt f/u Leukocytosis, likely reactive, no sepsis or source of infection seen DVT ppx scd only due to anemia Disposition: DC home with outpatient follow-up Hospitalist Physical GENERAL: well-developed and well-nourished -[place]ammar[place] male lying on bed appeared to be in no discomfort. HEENT: Normocephalic. Atraumatic. No conjunctival congestion or icterus. Patient has moist mucous membranes. NECK: Supple. Trachea midline. CHEST/LUNGS: Clear to auscultated bilaterally, breathing nonlabored. No wheezes crackles or rhonchi. HEART/CARDIOVASCULAR: Regular in rate and rhythm. S1 and S2 positive. ABDOMEN: Abdomen is soft, nontender. Patient has normal bowel sounds. SKIN: There is no rash. Warm and dry. NEURO: No focal motor deficit. Follows command. MUSCULOSKELETAL: No joint effusion or tenderness. EXTRIMITY: No edema, no cyanosis or clubbing. PSYCH: Cooperative. Disposition: DC-01 TO HOME OR SELFCARE Time spent for discharge: 34 minutes Core Measure Documentation - Palliative Care Palliative Care/ Comfort Measures: Not Applicable Exam - Constitutional Vitals: Temp Pulse Resp BP Pulse Ox 98.9 F 114 H 22 167/95 100 02/09/20 13:03 02/09/20 13:03 02/09/20 13:03 02/09/20 13:03 02/09/20 13:03 Plan Activity: advance as tolerated Weight Bearing Status: Weight Bear as Tolerated Diet: advance as tolerated Special Instructions: record daily BP diary Follow up with: PRIMARY CAREMD [Primary Care Provider] - 3-5 Days Forms: Accompanied Note Prescriptions: amLODIPine 10 mg PO DAILY #30 Dicyclomine [Bentyl] 10 mg PO QID #30 capsule Sucralfate [Carafate] 1 gm PO ACHS #120 tablet carvediloL [Coreg] 25 mg PO BID #60 Hydralazine HCl 100 mg PO Q8H #120 tablet Pantoprazole [Protonix TAB] 40 mg PO DAILY #30 tablet Metoclopramide [Reglan TAB] 10 mg PO QID #120 tablet chlorproMAZINE [Thorazine] 25 mg PO TID #20 tablet Ondansetron [Zofran ODT TAB] 4 mg PO Q8HR #10 tab.rapdis
[2020-02-09 16:42] LABS: Hematocrit 26.6 % (35.5-45.6); Hemoglobin 8.5 gm/dl (11.8-15.2); Mean Corpuscular HGB Conc 32 % (32-34); Mean Corpuscular Volume 84 fl (84-94); Platelet Count 414 K/mm3 (140-440); Red Blood Count 3.15 M/mm3 (3.65-5.03); Red Cell Distribution Width 16.7 % (13.2-15.2)
[2020-02-09 16:59] LABS: Calcium 8.5 mg/dL (8.4-10.2)
== END 2020-02-09 19:09 | disposition home or self-care (01) | DRG 380 ==
LOC: ED 04:33 → 4A 09:37
PROVIDERS: ADMIT Internal Medicine; ATTEND Internal Medicine
PROC: 0DJ08ZZ Inspection of Upper Intestinal Tract, Via Natural or Artificial Opening Endoscopic (ICD-10-PCS; principal; 2020-02-07)
PROC: 5A1D70Z Performance of Urinary Filtration, Intermittent, Less than 6 Hours Per Day (ICD-10-PCS; 2020-02-08)
DX: K22.11 Ulcer of esophagus with bleeding (principal); N18.6 End stage renal disease; I16.1 Hypertensive emergency; J45.909 Unspecified asthma, uncomplicated; I50.9 Heart failure, unspecified; I13.2 Hypertensive heart and chronic kidney disease with heart failure and with stage 5 chronic kidney disease, or end stage renal disease; K31.84 Gastroparesis; E10.22 Type 1 diabetes mellitus with diabetic chronic kidney disease; D72.829 Elevated white blood cell count, unspecified; N25.81 Secondary hyperparathyroidism of renal origin; D63.1 Anemia in chronic kidney disease; E10.43 Type 1 diabetes mellitus with diabetic autonomic (poly)neuropathy; E10.65 Type 1 diabetes mellitus with hyperglycemia; M89.9 Disorder of bone, unspecified; Z90.49 Acquired absence of other specified parts of digestive tract; Z99.2 Dependence on renal dialysis; Z86.718 Personal history of other venous thrombosis and embolism; Z79.4 Long term (current) use of insulin; Z89.411 Acquired absence of right great toe; Z82.49 Family history of ischemic heart disease and other diseases of the circulatory system; Z83.3 Family history of diabetes mellitus
CPT/HCPCS: 36415; 71045; 74176; 80048; 80053; 80074; 82140; 82962; 83690; 85014; 85018; 85025; 85027; 85610; 85730; 87116; G0378; C9113; J0171; J0360; J0885; J1170; J1815; J2060; J2405; J2704; J2765; J7030; Q0161

== ENCOUNTER 2020-03-29 19:40 | Inpatient (IN) | payer MEDICARE ==
[2020-03-29 21:23] LABS: Basophils # (Auto) 0.2 K/mm3 (0.0-0.1); Basophils % (Auto) 1.3 % (0.0-1.8); Eosinophils % (Auto) 0.1 % (0.0-4.3); Hemoglobin 11.2 gm/dl (11.8-15.2); Lymphocytes # (Auto) 0.7 K/mm3 (1.2-5.4); Lymphocytes % (Auto) 6.2 % (13.4-35.0); Mean Corpuscular HGB Conc 32 % (32-34); Mean Corpuscular Volume 83 fl (84-94); Monocytes # (Auto) 0.7 K/mm3 (0.0-0.8); Monocytes % (Auto) 5.8 % (0.0-7.3); Platelet Count 428 K/mm3 (140-440); Red Blood Count 4.23 M/mm3 (3.65-5.03); Red Cell Distribution Width 18.4 % (13.2-15.2)
[2020-03-29 21:32] LABS: Albumin 3.6 g/dL (3.9-5); Calcium 8.7 mg/dL (8.4-10.2)
--- NOTE | 2020-03-29 23:19 | Emergency Department Report ---
ED Abdominal Pain HPI - General Chief Complaint: Abdominal Pain Stated Complaint: ABDOMINAL/CHEST PAIN Time Seen by Provider: 03/29/20 23:09 Source: patient Mode of arrival: Ambulatory Limitations: Other - History of Present Illness Initial Comments: This is a 34-year-old male with history of hypertension, diabetes mellitus, gastroparesis, end-stage renal disease on hemodialysis Saturday, gastric ulcer, ulcerative esophagitis presents with central abdominal pain. Also has nausea vomiting. Missed dialysis on Saturday. Severe pain. No hematemesis. MD Complaint: abdominal pain -: Gradual, days(s) (several) Radiation: none Severity: severe Quality: cramping Consistency: constant Improves With: nothing Worsens With: nothing Associated Symptoms: nausea, vomiting - Related Data Previous Rx's Medication Instructions Recorded Last Taken Type Dicyclomine [Bentyl] 10 mg PO QID #30 capsule 02/09/20 03/14/20 Rx chlorproMAZINE [Thorazine] 25 mg PO TID #20 tablet 02/09/20 03/12/20 Rx Sucralfate [Carafate] 1 gm PO ACHS #120 tablet 03/05/20 03/12/20 Rx Albuterol Sulfate [Albuterol 0.63% 0.63 mg IH Q4HR PRN #30 03/11/20 03/12/20 Rx NEBS] Lispro Insulin [HumaLOG] See Protocol SQ TID #10 units 03/11/20 03/15/20 Rx amLODIPine 10 mg PO DAILY #30 03/11/20 03/12/20 Rx carvediloL [Coreg] 25 mg PO BID #60 tablet 03/11/20 03/12/20 Rx hydrALAZINE [Apresoline TAB] 100 mg PO Q8HR #90 tab 03/11/20 03/12/20 Rx Metoclopramide [Reglan] 10 mg PO ACHS PRN #30 tablet 03/16/20 Unknown Rx Ondansetron [Zofran ODT TAB] 4 mg PO Q8HR #10 tab.rapdis 03/16/20 Unknown Rx Pantoprazole [Protonix] 40 mg PO BID #60 tablet 03/16/20 Unknown Rx Ondansetron [Zofran Odt] 4 mg PO Q8HR #10 tab.rapdis 03/22/20 Unknown Rx Pantoprazole [Protonix] 40 mg PO QDAY #30 tablet 03/22/20 Unknown Rx Promethazine [Phenergan] 25 mg MS Q6HR PRN #14 supp.rect 03/22/20 Unknown Rx Allergies Allergy/AdvReac Type Severity Reaction Status Date / Time No Known Allergies Allergy Verified 03/09/20 19:55 ED Review of Systems ROS: Stated complaint: ABDOMINAL/CHEST PAIN Other details as noted in HPI Comment: All other systems reviewed and negative Constitutional: malaise. denies: fever Respiratory: denies: shortness of breath Gastrointestinal: abdominal pain, nausea, vomiting ED Past Medical Hx - Past Medical History Previous Medical History?: Yes Hx Hypertension: Yes Hx Heart Attack/AMI: Yes Hx Congestive Heart Failure: Yes Hx Diabetes: Yes Hx Deep Vein Thrombosis: No Hx Pulmonary Embolism: No Hx Liver Disease: No Hx Renal Disease: No Hx Sickle Cell Disease: No Hx Kidney Stones: No Hx Asthma: Yes Hx COPD: No Hx Tuberculosis: No Hx HIV: No Additional medical history: Ulcerative esophagitis, Gastroparesis HD MWF - Surgical History Hx Coronary Stent: No Hx Pacemaker: No Hx Internal Defibrillator: No Hx Cholecystectomy: (v,vas) Hx Appendectomy: Yes Additional Surgical History: right great toe removed, Right chest PERMA-CATH - Social History Smoking Status: Never Smoker Substance Use Type: None - Medications Home Medications: Home Medications Medication Instructions Recorded Confirmed Last Taken Type Dicyclomine [Bentyl] 10 mg PO QID #30 capsule 02/09/20 03/15/20 03/14/20 Rx chlorproMAZINE [Thorazine] 25 mg PO TID #20 tablet 02/09/20 03/15/20 03/12/20 Rx Sucralfate [Carafate] 1 gm PO ACHS #120 tablet 03/05/20 03/15/20 03/12/20 Rx Albuterol Sulfate [Albuterol 0.63% 0.63 mg IH Q4HR PRN #30 03/11/20 03/15/20 03/12/20 Rx NEBS] Lispro Insulin [HumaLOG] See Protocol SQ TID #10 units 03/11/20 03/15/20 03/15/20 Rx amLODIPine 10 mg PO DAILY #30 03/11/20 03/15/20 03/12/20 Rx carvediloL [Coreg] 25 mg PO BID #60 tablet 03/11/20 03/15/20 03/12/20 Rx hydrALAZINE [Apresoline TAB] 100 mg PO Q8HR #90 tab 03/11/20 03/15/20 03/12/20 Rx Metoclopramide [Reglan] 10 mg PO ACHS PRN #30 tablet 03/16/20 Unknown Rx Ondansetron [Zofran ODT TAB] 4 mg PO Q8HR #10 tab.rapdis 03/16/20 Unknown Rx Pantoprazole [Protonix] 40 mg PO BID #60 tablet 03/16/20 Unknown Rx Ondansetron [Zofran Odt] 4 mg PO Q8HR #10 tab.rapdis 03/22/20 Unknown Rx Pantoprazole [Protonix] 40 mg PO QDAY #30 tablet 03/22/20 Unknown Rx Promethazine [Phenergan] 25 mg MS Q6HR PRN #14 supp.rect 03/22/20 Unknown Rx ED Physical Exam - General Limitations: Other General appearance: alert, other (Clammy diaphoretic) - Head Head exam: Present: atraumatic, normocephalic - Eye Eye exam: Present: normal appearance - ENT ENT exam: Present: mucous membranes moist - Neck Neck exam: Present: normal inspection, full ROM - Respiratory Respiratory exam: Present: normal lung sounds bilaterally. Absent: respiratory distress, wheezes, rales, rhonchi - Cardiovascular Cardiovascular Exam: Present: regular rate, normal rhythm, normal heart sounds. Absent: systolic murmur, diastolic murmur, rubs, gallop - GI/Abdominal GI/Abdominal exam: Present: soft, normal bowel sounds. Absent: distended, tenderness, guarding, rebound - Rectal Rectal exam: Present: deferred - Extremities Exam Extremities exam: Present: normal inspection - Back Exam Back exam: Present: normal inspection - Neurological Exam Neurological exam: Present: alert, oriented X3 - Psychiatric Psychiatric exam: Present: normal affect, normal mood - Skin Skin exam: Present: warm, dry, intact, normal color. Absent: rash ED Course Vital Signs 03/29/20 20:30 Temperature 99.5 F Pulse Rate 101 H Respiratory 18 Rate Blood Pressure 241/139 O2 Sat by Pulse 99 Oximetry ED Medical Decision Making - Lab Data Result diagrams: 03/29/20 20:58 03/29/20 20:58 Laboratory Results - last 24 hr 03/29/20 03/29/20 03/29/20 20:37 20:58 20:58 WBC 11.8 H RBC 4.23 Hgb 11.2 L Hct 35.0 L MCV 83 L MCH 27 L MCHC 32 RDW 18.4 H Plt Count 428 Lymph % (Auto) 6.2 L [place] % (Auto) 5.8 Eos % (Auto) 0.1 Baso % (Auto) 1.3 Lymph # 0.7 L [place] # 0.7 Eos # 0.0 Baso # 0.2 H Seg Neutrophils % 86.6 H Seg Neutrophils # 10.2 H Sodium 135 L Potassium 5.8 H Chloride 92.6 L Carbon Dioxide 19 L Anion Gap 29 BUN 72 H Creatinine 15.2 H Estimated GFR 5 BUN/Creatinine Ratio 5 Glucose 275 H POC Glucose 269 H Calcium 8.7 Total Bilirubin 0.50 AST 37 ALT 23 Alkaline Phosphatase 120 Total Protein 7.0 Albumin 3.6 L Albumin/Globulin Ratio 1.1 Lipase 34 03/30/20 00:11 WBC RBC Hgb Hct MCV MCH MCHC RDW Plt Count Lymph % (Auto) [place] % (Auto) Eos % (Auto) Baso % (Auto) Lymph # [place] # Eos # Baso # Seg Neutrophils % Seg Neutrophils # Sodium Potassium Chloride Carbon Dioxide Anion Gap BUN Creatinine Estimated GFR BUN/Creatinine Ratio Glucose POC Glucose 253 H Calcium Total Bilirubin AST ALT Alkaline Phosphatase Total Protein Albumin Albumin/Globulin Ratio Lipase - Radiology Data Radiology results: report reviewed CT chest: Small bilateral chronic pleural effusions with thickening of the esophagus, hiatal hernia, cardiomegaly CT abdomen: No bowel obstruction no inflammation or free air in the abdomen anasarca appears similar to prior study - Medical Decision Making 1. diabetic gastroparesis: abdominal pain, nausea, vomiting; low grade fever, elevated WBC, CT A/P without acute inflammatory process treated with PPI, reglan, analgesia 2. hypertensive urgency: treated with IV labetalol 3. hyperkalemia, ESRD, missed HD: medical treatment with calcium, insulin, sodium bicarbonate, Dr. Jacobson insurance claim auditor consulted, HD will be arranged today, CT scan reveals chronic bilateral pleural effusions and anasarca admitted to the hospitalist servce for further treatment Critical care attestation.: If time is entered above; I have spent that time in minutes in the direct care of this critically ill patient, excluding procedure time. ED Disposition Clinical Impression: Intractable nausea and vomiting, Gastroparesis, Acute hyperkalemia, End-stage renal disease needing dialysis, Malignant hypertension Disposition: OP ADMIT IP TO THIS HOSP Is pt being admited?: Yes Does the pt Need Aspirin: No Condition: Stable
[2020-03-29] MEDS ORDERED: SODIUM BICARB 8.4% 50 MEQ/50 ML SYRINGE IV ONE (23:24)
[2020-03-29] MEDS ORDERED: INSULIN REGULAR, HUMAN 100 UNITS/1 ML IV ONE (23:24)
[2020-03-29] MEDS ORDERED: SODIUM CHLORIDE 0.9% 100 ML IV PRN (23:26)
[2020-03-29] MEDS ORDERED: METOCLOPRAMIDE 10 MG/2 ML INJ IV ONE (23:26)
[2020-03-29] MEDS ORDERED: PANTOPRAZOLE 40 MG INJ IV ONE (23:26)
[2020-03-29] MEDS ORDERED: diphenhydrAMINE 50 MG/ML VIAL IV ONE (23:26)
[2020-03-29] MEDS ORDERED: CALCIUM GLUCONATE 1,000 MG in SODIUM CHLORIDE 0.9% 100 ML IV ONE (23:45)
--- NOTE | 2020-03-30 01:27 | Cat Scan Report ---
CT scan of the chest, abdomen, and pelvis without contrast INDICATION: Pt complains of "Generalized" abdominal pain.. Coughing up blood TECHNIQUE: All CT scans at this location are performed using the following dose modulation technique: Automated exposure control. Helical slices were obtained through the chest, abdomen, and pelvis. No contrast is administered. COMPARISON: CT scans of the abdomen and pelvis dated 02/07/2020, 01/25/2020 and 12/25/2019 FINDINGS: Chest: There is some soft tissue density in the anterior mediastinum which may represent residual thy princess tissue. There are small bilateral pleural effusions right greater than left. The heart is enlarge d. Small amount of pericardial fluid. 2 There is wall thickening in the esophagus and there is a hiatal hernia. ABDOMEN: The liver, spleen, pancreas, adrenal glands, and kidneys show no acute abnormality. There ar e small retroperitoneal lymph nodes. The aorta is normal in diameter. There is no obstruction, inflam mation, or free air. There are no abnormal collections. There is subcutaneous edema. Pelvis: There is a small amount of ascites in the dependent portion of the pelvis. There is no obstru ction or inflammation. Changes of prior appendectomy are noted. On review of bone windows, no acute osseous abnormalities are seen. IMPRESSION: 1. There are small bilateral pleural effusions right greater than left. The right effusion has increa sed since the prior CT. There is some wall thickening noted in the esophagus and there is a hiatal hernia. Soft tissue in the anterior mediastinum likely represents residual thymic tissue. There is cardiomegaly. There is a small amount of pericardial fluid. There is no bowel obstruction, inflammation, or free air in the abdomen. There is anasarca which appears similar to the prior study. Signer Name: Syd Delvalle MD Signed: 03/30/2020 1:23 AM Workstation Name: [id number]
[2020-03-30] MEDS ORDERED: MORPHINE 2 MG/1 ML INJ IV PRN (03:36)
[2020-03-30] MEDS ORDERED: DEXTROSE 50% IN WATER (25GM) 50 ML SYRINGE IV PRN (03:36)
[2020-03-30] MEDS ORDERED: ONDANSETRON 4 MG/2 ML INJ IV PRN (03:36)
[2020-03-30] MEDS ORDERED: ACETAMINOPHEN 325 MG TAB PO PRN (03:36)
[2020-03-30] MEDS ORDERED: METOCLOPRAMIDE 10 MG/2 ML INJ IV PRN (03:36)
--- NOTE | 2020-03-30 03:38 | History and Physical Report ---
History of Present Illness History of present illness: 34-year-old man with a history of hypertension, diabetes, complicated by gastroparesis, ESRD, gastric ulcer, ulcerative esophagitis comes to the emergency room becauseof abdominal pain that started yesterday pain is left lower abdomen, crampy, constant for several hours, intensity 5/10, no radiation, cannot identify exacerbating factors. Admits to nausea vomiting, several episodes, unable to tolerate oral intake, patient will be admitted for acute gastroparesis Review of systems Constitutional: no weight loss, chills, fever Ears, eyes, nose, mouth and throat: no nasal congestion, no nasal discharge, no sinus pressure, no vision change, no red eye. Neck: No neck pain or rigidity. Cardiovascular: no chest pain, palpitations Respiratory: no cough, shortness of breath Gastrointestinal: no hematochezia Genitourinary : no frequency , no hematuria Musculoskeletal: no joint swelling or muscle ache Integumentary: no rash, no pruritis Neurological: no parathesias, no numbness, no focal weakness Endocrine: no cold or heat intolerance, no polyuria or polydipsia Hematologic/Lymphatic: no easy bruising, no easy bleeding, no gland swelling Allergic/Immunologic: no urticaria, no angioedema. PAST MEDICAL HISTORY: Hypertension, diabetes complicated by gastroparesis, ESRD, gastric ulcer, ulcerative esophagitis PAST SURGICAL HISTORY: Appendectomy SOCIAL HISTORY: No alcohol, no drugs, tobacco FAMILY HISTORY: Hypertension Medications and Allergies Allergies Allergy/AdvReac Type Severity Reaction Status Date / Time No Known Allergies Allergy Verified 03/09/20 19:55 Home Medications Medication Instructions Recorded Confirmed Last Taken Type Dicyclomine [Bentyl] 10 mg PO QID #30 capsule 02/09/20 03/15/20 03/14/20 Rx chlorproMAZINE [Thorazine] 25 mg PO TID #20 tablet 02/09/20 03/15/20 03/12/20 Rx Sucralfate [Carafate] 1 gm PO ACHS #120 tablet 03/05/20 03/15/20 03/12/20 Rx Albuterol Sulfate [Albuterol 0.63% 0.63 mg IH Q4HR PRN #30 03/11/20 03/15/20 03/12/20 Rx NEBS] Lispro Insulin [HumaLOG] See Protocol SQ TID #10 units 03/11/20 03/15/20 03/15/20 Rx amLODIPine 10 mg PO DAILY #30 03/11/20 03/15/20 03/12/20 Rx carvediloL [Coreg] 25 mg PO BID #60 tablet 03/11/20 03/15/20 03/12/20 Rx hydrALAZINE [Apresoline TAB] 100 mg PO Q8HR #90 tab 03/11/20 03/15/20 03/12/20 Rx Metoclopramide [Reglan] 10 mg PO ACHS PRN #30 tablet 03/16/20 Unknown Rx Ondansetron [Zofran ODT TAB] 4 mg PO Q8HR #10 tab.rapdis 03/16/20 Unknown Rx Pantoprazole [Protonix] 40 mg PO BID #60 tablet 03/16/20 Unknown Rx Ondansetron [Zofran Odt] 4 mg PO Q8HR #10 tab.rapdis 03/22/20 Unknown Rx Pantoprazole [Protonix] 40 mg PO QDAY #30 tablet 03/22/20 Unknown Rx Promethazine [Phenergan] 25 mg DC Q6HR PRN #14 supp.rect 03/22/20 Unknown Rx Active Meds: Active Medications Enoxaparin Sodium (Enoxaparin) 30 mg SUB-Q QDAY KESHIA Sodium Chloride (Nacl 0.9%) 100 mls @ 999 mls/hr IV BRENDAN PRN PRN Reason: Hypotension Exam - Physical Exam Narrative exam: General Apperance: The patient lying in bed, breathing comfortable HEENT: Normocephalic, atraumatic. Pupils equally round and reactive to light, EOMI, no sclericterus or JVD or thyromegaly or nodule. , no carotid bruit, mucous membranes moist, no exudate or erythema Heart: S1-S2, regular is rhythm Lungs: Clear bilaterally, breathing comfortable Abdomen: Positive bowel sounds, soft, nontender, nondistended, no organomegaly Extremities: No edema cyanosis clubbing Skin: no rash, nodule, warm and dry Neuro: cranial nerves 2-12 intact, speech is fluent, motor/sensory intact - Constitutional Vitals: Temp Pulse Resp BP Pulse Ox 99.5 F 96 H 18 181/106 95 03/29/20 20:30 03/30/20 02:16 03/30/20 02:46 03/30/20 02:46 03/30/20 02:46 Results - Labs CBC & Chem 7: 03/29/20 20:58 03/29/20 20:58 Labs: Abnormal lab results 03/29/20 03/29/20 03/29/20 Range/Units 20:37 20:58 20:58 WBC 11.8 H (4.5-11.0) K/mm3 Hgb 11.2 L (11.8-15.2) gm/dl Hct 35.0 L (35.5-45.6) % MCV 83 L (84-94) fl MCH 27 L (28-32) pg RDW 18.4 H (13.2-15.2) % Lymph % (Auto) 6.2 L (13.4-35.0) % Lymph # 0.7 L (1.2-5.4) K/mm3 Baso # 0.2 H (0.0-0.1) K/mm3 Seg Neutrophils % 86.6 H (40.0-70.0) % Seg Neutrophils # 10.2 H (1.8-7.7) K/mm3 Sodium 135 L (137-145) mmol/L Potassium 5.8 H (3.6-5.0) mmol/L Chloride 92.6 L (98-107) mmol/L Carbon Dioxide 19 L (22-30) mmol/L BUN 72 H (9-20) mg/dL Creatinine 15.2 H (0.8-1.5) mg/dL Glucose 275 H (75-100) mg/dL POC Glucose 269 H (70-105) Albumin 3.6 L (3.9-5) g/dL 03/30/20 Range/Units 00:11 WBC (4.5-11.0) K/mm3 Hgb (11.8-15.2) gm/dl Hct (35.5-45.6) % MCV (84-94) fl MCH (28-32) pg RDW (13.2-15.2) % Lymph % (Auto) (13.4-35.0) % Lymph # (1.2-5.4) K/mm3 Baso # (0.0-0.1) K/mm3 Seg Neutrophils % (40.0-70.0) % Seg Neutrophils # (1.8-7.7) K/mm3 Sodium (137-145) mmol/L Potassium (3.6-5.0) mmol/L Chloride (98-107) mmol/L Carbon Dioxide (22-30) mmol/L BUN (9-20) mg/dL Creatinine (0.8-1.5) mg/dL Glucose (75-100) mg/dL POC Glucose 253 H (70-105) Albumin (3.9-5) g/dL Assessment and Plan Assessment Acute on chronic gastroparesis/Diabetes Initiate antiemetics, IV morphine Check fingersticks, initiate insulin sliding scale ESRD needind dialysis/hyperkalemia Renal was consulted to see the patient Follow potassium level Hypertension, uncontrolled IV hydralazine for blood pressure control DVT prophylaxis
[2020-03-30 04:06] LABS: Basophils # (Auto) 0.1 K/mm3 (0.0-0.1); Hematocrit 35.1 % (35.5-45.6); Lymphocytes # (Auto) 0.8 K/mm3 (1.2-5.4); Lymphocytes % (Auto) 7.1 % (13.4-35.0); Mean Corpuscular HGB Conc 31 % (32-34); Mean Corpuscular Volume 84 fl (84-94); Monocytes # (Auto) 0.9 K/mm3 (0.0-0.8); Monocytes % (Auto) 7.6 % (0.0-7.3); Platelet Count 400 K/mm3 (140-440); Red Blood Count 4.15 M/mm3 (3.65-5.03); Red Cell Distribution Width 18.9 % (13.2-15.2)
[2020-03-30 10:33] LABS: Bilirubin,Urine NEG (Negative); Blood,Urine NEG (Negative); Color,Urine Yellow (Yellow); Mucus,Urine FEW /HPF; Urobilinogen,Urine < 2.0 mg/dL (<2.0)
[2020-03-30 10:36] LABS: Protein,Urine >500 mg/dL (Negative)
[2020-03-30] MEDS ORDERED: cloNIDine 0.1 MG TAB PO ONE (11:39)
--- NOTE | 2020-03-30 11:47 | Consultation ---
History of Present Illness - Reason for Consult Consult date: 03/30/20 end stage renal disease - History of Present Illness This is a 34 year-old man with ESRD who presents for abdominal pain. Patient usually dialyzes MWF. Last HD 03/25, missed HD on 03/28 due to abdominal pain. Known gastroparesis. Denies any recent issues with HD, including dizziness, lightheadedness, cramping, chest pain on HD. Currently, patient denies any issues including dyspnea, edema, access issues, nausea, vomiting, headaches. Past History Past Medical History: diabetes, ESRD, hypertension Past Surgical History: No surgical history Social history: no significant social history Family history: no significant family history Medications and Allergies Allergies Allergy/AdvReac Type Severity Reaction Status Date / Time No Known Allergies Allergy Verified 03/09/20 19:55 Home Medications Medication Instructions Recorded Confirmed Last Taken Type Dicyclomine [Bentyl] 10 mg PO QID #30 capsule 02/09/20 03/30/20 03/14/20 Rx chlorproMAZINE [Thorazine] 25 mg PO TID #20 tablet 02/09/20 03/30/20 03/12/20 Rx Sucralfate [Carafate] 1 gm PO ACHS #120 tablet 03/05/20 03/30/20 03/12/20 Rx Albuterol Sulfate [Albuterol 0.63% 0.63 mg IH Q4HR PRN #30 03/11/20 03/30/20 03/12/20 Rx NEBS] Lispro Insulin [HumaLOG] See Protocol SQ TID #10 units 03/11/20 03/30/20 03/15/20 Rx amLODIPine 10 mg PO DAILY #30 03/11/20 03/30/20 03/12/20 Rx carvediloL [Coreg] 25 mg PO BID #60 tablet 03/11/20 03/30/20 03/12/20 Rx hydrALAZINE [Apresoline TAB] 100 mg PO Q8HR #90 tab 03/11/20 03/30/20 03/12/20 Rx Metoclopramide [Reglan] 10 mg PO ACHS PRN #30 tablet 03/16/20 03/30/20 Unknown Rx Ondansetron [Zofran ODT TAB] 4 mg PO Q8HR #10 tab.rapdis 03/16/20 03/30/20 Unknown Rx Pantoprazole [Protonix] 40 mg PO BID #60 tablet 03/16/20 03/30/20 Unknown Rx Ondansetron [Zofran Odt] 4 mg PO Q8HR #10 tab.rapdis 03/22/20 03/30/20 Unknown Rx Pantoprazole [Protonix] 40 mg PO QDAY #30 tablet 03/22/20 03/30/20 Unknown Rx Promethazine [Phenergan] [address] Q6HR PRN #14 supp.rect 03/22/20 03/30/20 Unknown Rx Active Meds: Active Medications Acetaminophen (Tylenol) 650 mg PO Q4H PRN PRN Reason: Pain MILD(1-3)/Fever >100.5/LANZA Clonidine HCl (Catapres) 0.1 mg PO ONCE ONE Stop: 03/30/20 11:40 Dextrose (D50w (25gm) Syringe) 0 ml IV Q30MIN PRN; Protocol PRN Reason: Hypoglycemia Enoxaparin Sodium (Enoxaparin) 30 mg SUB-Q QDAY KESHIA Sodium Chloride (Nacl 0.9%) 100 mls @ 999 mls/hr IV BRENDAN PRN PRN Reason: Hypotension Metoclopramide HCl (Reglan) 5 mg IV Q6H PRN PRN Reason: Nausea And Vomiting Morphine Sulfate (Morphine) 2 mg IV Q4H PRN PRN Reason: Pain, Moderate (4-6) Ondansetron HCl (Zofran) 4 mg IV Q4H PRN PRN Reason: Nausea And Vomiting Sodium Chloride (Sodium Chloride Flush Syringe 10 Ml) 10 ml IV BID KESHIA Sodium Chloride (Sodium Chloride Flush Syringe 10 Ml) 10 ml IV PRN PRN PRN Reason: LINE FLUSH Review of Systems All systems: negative (as per HPI. Abdominal pain improved from admission per patient) Exam - Vital Signs Vital signs: Vital Signs Temp Pulse Resp BP Pulse Ox 99.5 F 101 H 18 241/139 99 03/29/20 20:30 03/29/20 20:30 03/29/20 20:30 03/29/20 20:30 03/29/20 20:30 - Physical Exam Narrative exam: Constitutional: no acute distress Head: NC/AT Neck: supple Lungs: clear to auscultation CV: RRR, no M/R/G Abdomen: soft, non-tender, bowel sounds present Back: nontender Extremities: no edema, pulses WNL Skin: intact Neuro: no focal deficits, alert and oriented x4 Seen on HD: Qb 400ml/min via AVF, UF goal 3.5L, BP 218/124 Results - Lab Results 03/30/20 03:49 03/30/20 03:49 Most recent lab results Calcium 9.0 mg/dL (8.4-10.2) 03/30/20 03:49 Assessment and Plan This is a 34 year old man who presents with abdominal pain. # ESRD: continue HD MWF, due today given hyperkalemia - daily labs - renally dose meds - avoid nephrotoxins - renal diet # Anemia: last hemoglobin 11.0, no indication for ESAs # HTN: UF as tolerated. BP high today on HD, >200/100. Will provide clonidine on HD, but will need resumption of home meds when on floor (amlodipine, carvedilol, hydralazine). If BP remains high after HD, may need to consider cardene gtt # Secondary Hyperparathyroidism: continue home binders as needed # DM # Gastroparesis
[2020-03-30] MEDS ORDERED: methylPREDNISolone Sod Succinate 125 MG/2 ML INJ ONE (14:04)
[2020-03-30] MEDS ORDERED: PANTOPRAZOLE 40 MG TAB PO ONE (14:04)
[2020-03-30] MEDS ORDERED: ENOXAPARIN 40 MG/0.4 ML INJ SUB-Q ONE (14:04)
[2020-03-30] MEDS: ENOXAPARIN 30 MG/0.3 ML INJ SUB-Q SCH (14:30)
[2020-03-30] MEDS ORDERED: ENOXAPARIN 30 MG/0.3 ML INJ SUB-Q ONE (14:30)
[2020-03-30] MEDS ORDERED: ALBUTEROL SULFATE 0.63 MG IH PRN (16:05)
[2020-03-30] MEDS ORDERED: METOCLOPRAMIDE 10 MG TAB PO PRN (16:05)
--- NOTE | 2020-03-30 16:05 | Event Note ---
Date: 03/30/20 Patient seen and examined SBP still >200, will resume his home meds, hydralazine iv as needed will start clear liquid diet and will advance as tolerated
[2020-03-30] MEDS ORDERED: hydrALAZINE 20 MG/1 ML INJ IV PRN (16:08)
[2020-03-30] MEDS ORDERED: ALBUTEROL 2.5 MG/3 ML NEBU IH PRN (16:15)
[2020-03-30] MEDS ORDERED: DICYCLOMINE 10 MG CAP ONE (16:31)
[2020-03-30] MEDS ORDERED: amLODIPine 10 MG TAB ONE (16:31)
[2020-03-30] MEDS ORDERED: hydrALAZINE 20 MG/1 ML INJ ONE (16:32)
[2020-03-30] MEDS: amLODIPine 10 MG TAB PO SCH (16:33)
[2020-03-30] MEDS: DICYCLOMINE 10 MG CAP PO SCH ×2 (17:35→21:29)
[2020-03-30] MEDS: SUCRALFATE 1 GM TAB PO SCH ×2 (17:35→21:30)
[2020-03-30] MEDS ORDERED: SODIUM CHLORIDE*PRIMING MACHINE ONLY FOR DIALYSIS MC ONE (18:44)
[2020-03-30] MEDS: INSULIN LISPRO 100 UNIT/ML SUB-Q SCH (21:27)
[2020-03-30] MEDS: chlorproMAZINE 25 MG TAB PO SCH (21:29)
[2020-03-30] MEDS: hydrALAZINE 100 MG TAB PO SCH (21:29)
[2020-03-30] MEDS: carvediloL 25 MG TAB PO SCH (21:30)
[2020-03-30] MEDS: PANTOPRAZOLE 40 MG TAB PO SCH (21:31)
[2020-03-31] MEDS: ONDANSETRON 4 MG ODT TAB PO SCH ×3 (00:04→14:26)
[2020-03-31] MEDS: hydrALAZINE 100 MG TAB PO SCH ×2 (05:26→13:13)
[2020-03-31] MEDS: SUCRALFATE 1 GM TAB PO SCH ×3 (07:47→17:12)
--- NOTE | 2020-03-31 08:27 | Discharge Summary ---
Providers - Providers Date of Admission: 03/30/20 17:00 Date of discharge: 03/31/20 Attending physician: ANASTACIO CEDEÑO 03/29/20 23:21 Consult to Physician [CONS] Stat Comment: Consulting Provider: LEN ULRICH Physician Instructions: Reason For Exam: ESRD Primary care physician: AMBULANCE ASSISTANT Hospitalization Condition: Stable Pertinent studies: Chest CT Abdomen/pelvis CT Hospital course: 34-year-old man with a history of hypertension, diabetes, complicated by gastroparesis, ESRD, gastric ulcer, ulcerative esophagitis comes to the emergency room because of abdominal pain, nausea vomiting, unable to tolerate oral intake. CT abdomen/pelvis showed no acute finding. His BP was also elevated on admission, patient was admitted for acute gastroparesis and uncontrolled hypertension. His home medications were resumed, placed on antiemetics, scheduled reglan. Nephrology consulted for HD. His symptom improved with medical Mx, tolerating diet, BP stabilized. Counselled for diet and medication compliance. Patient was then discharged home in stable condition. Discharge diagnosis: Intractable nausea vomiting likely due to gastroparesis, resolved Acute flare of gastroparesis, due to uncontrolled diabetes End-stage renal disease on hemodialysis Accelerated hypertension, now stable Anemia of chronic disease, stable H&H Diabetes mellitus type 2 on insulin Disposition: DC-01 TO HOME OR SELFCARE Time spent for discharge: 34 minutes Core Measure Documentation - Palliative Care Palliative Care/ Comfort Measures: Not Applicable - Core Measures Any of the following diagnoses?: none Exam - Constitutional Vitals: Temp Pulse Resp BP Pulse Ox 98 F 75 18 143/85 95 03/31/20 05:22 03/31/20 05:22 03/31/20 05:22 03/31/20 05:22 03/31/20 05:22 General appearance: Present: no acute distress, well-nourished - EENT Eyes: Present: PERRL ENT: hearing intact, clear oral mucosa - Neck Neck: Present: supple, normal ROM - Respiratory Respiratory effort: normal Respiratory: bilateral: CTA - Cardiovascular Heart Sounds: Present: S1 & S2. Absent: rub, click - Extremities Extremities: pulses symmetrical, No edema Peripheral Pulses: within normal limits - Abdominal General gastrointestinal: Present: soft, non-tender, non-distended, normal bowel sounds - Integumentary Integumentary: Present: clear, warm, dry - Musculoskeletal Musculoskeletal: gait normal, strength equal bilaterally - Psychiatric Psychiatric: appropriate mood/affect, intact judgment & insight - Neurologic Neurologic: CNII-XII intact, moves all extremities Plan Activity: advance as tolerated Weight Bearing Status: Weight Bear as Tolerated Diet: renal Special Instructions: restrict fluid intake to (1.2L per day), record daily BP diary Follow up with: PRIMARY CARE, [Primary Care Provider] - 7 Days
--- NOTE | 2020-03-31 09:12 | Progress Note ---
Assessment and Plan This is a 34 year old man who presents with abdominal pain. # ESRD: continue HD MWF, had yesterday due to hyperkalemia. Due tomorrow, no indication for HD today - daily labs - renally dose meds - avoid nephrotoxins - renal diet # Anemia: last hemoglobin 11.0, no indication for ESAs # HTN: UF as tolerated. BP improved this AM, continue home meds when on floor (amlodipine, carvedilol, hydralazine). # Secondary Hyperparathyroidism: continue home binders as needed # DM # Gastroparesis: symptoms improved Subjective Date of service: 03/31/20 Interval history: No acute events noted, BP improved. Feeling well this AM. Objective - Exam Narrative Exam: Constitutional: no acute distress Head: NC/AT Neck: supple Lungs: clear to auscultation CV: RRR, no M/R/G Abdomen: soft, non-tender, bowel sounds present Back: nontender Extremities: no edema, pulses WNL Skin: intact Neuro: no focal deficits, alert and oriented x4 - Vital Signs Vital signs: Vital Signs - 12hr 03/30/20 03/30/20 03/30/20 21:25 21:30 22:14 Temperature 98.6 F Pulse Rate 81 81 Respiratory 18 Rate Blood Pressure 141/85 Blood Pressure 141/85 [Left] O2 Sat by Pulse 98 98 Oximetry 03/31/20 05:22 Temperature 98 F Pulse Rate 75 Respiratory 18 Rate Blood Pressure Blood Pressure 143/85 [Left] O2 Sat by Pulse 95 Oximetry - Lab 03/30/20 03:49 03/30/20 03:49 Most recent lab results Calcium 9.0 mg/dL (8.4-10.2) 03/30/20 03:49 Medications & Allergies - Medications Allergies/Adverse Reactions: Allergies No Known Allergies Allergy (Verified 03/09/20 19:55) Home Medications: Home Medications Medication Instructions Recorded Confirmed Last Taken Type Dicyclomine [Bentyl] 10 mg PO QID #30 capsule 02/09/20 03/30/20 03/14/20 Rx chlorproMAZINE [Thorazine] 25 mg PO TID #20 tablet 02/09/20 03/30/20 03/12/20 Rx Sucralfate [Carafate] 1 gm PO ACHS #120 tablet 03/05/20 03/30/2003/12/20 Rx Albuterol Sulfate [Albuterol 0.63% 0.63 mg IH Q4HR PRN #30 03/11/20 03/30/20 03/12/20 Rx NEBS] Lispro Insulin [HumaLOG] See Protocol SQ TID #10 units 03/11/20 03/30/20 03/15/20 Rx amLODIPine 10 mg PO DAILY #30 03/11/20 03/30/20 03/12/20 Rx carvediloL [Coreg] 25 mg PO BID #60 tablet 03/11/20 03/30/20 03/12/20 Rx hydrALAZINE [Apresoline TAB] 100 mg PO Q8HR #90 tab 03/11/20 03/30/20 03/12/20 Rx Metoclopramide [Reglan TAB] 10 mg PO ACHS PRN #30 tablet 03/16/20 03/30/20 Unknown Rx Ondansetron [Zofran ODT TAB] 4 mg PO Q8HR #10 tab.rapdis 03/16/20 03/30/20 Unknown Rx Pantoprazole [Protonix TAB] 40 mg PO BID #60 tablet 03/16/20 03/30/20 Unknown Rx Ondansetron [Zofran ODT TAB] 4 mg PO Q8HR #10 tab.rapdis 03/22/20 03/30/20 Unknown Rx Active Medications: Generic Name Dose Route Start Last Admin Trade Name Freq PRN Reason Stop Dose Admin Acetaminophen 650 mg 03/30/20 03:36 Tylenol PO Q4H PRN Pain MILD(1-3)/Fever >100.5/LANZA Albuterol 2.5 mg 03/30/20 16:15 Proventil IH Q4HRT PRN Shortness Of Breath Amlodipine Besylate 10 mg 03/30/20 17:00 03/30/20 16:33 Amlodipine PO 10 mg DAILY KESHIA Administration Carvedilol 25 mg 03/30/20 22:00 03/30/20 21:30 Coreg PO 25 mg BID KESHIA Administration Chlorpromazine HCl 25 mg 03/30/20 20:00 03/30/20 21:29 Thorazine PO 25 mg TID KESHIA Administration Dextrose 0 ml 03/30/20 03:36 D50w (25gm) Syringe IV Q30MIN PRN Hypoglycemia Protocol Dicyclomine HCl 10 mg 03/30/20 18:00 03/30/20 21:29 Bentyl PO 10 mg QID KESHIA Administration Enoxaparin Sodium 30 mg 03/30/20 10:00 03/30/20 14:30 Enoxaparin SUB-Q 30 mg QDAY KESHIA Administration Hydralazine HCl 100 mg 03/30/20 22:00 03/31/20 05:26 Apresoline PO 100 mg Q8HR KESHIA Administration Hydralazine HCl 10 mg 03/30/20 16:08 03/30/20 16:34 Apresoline IV 10 mg Q30MIN PRN Administration Hypertension Sodium Chloride 100 mls @ 999 mls/hr 03/29/20 23:26 Nacl 0.9% IV BRENDAN PRN Hypotension Insulin Human Lispro 0 unit 03/30/20 20:00 03/30/20 21:27 Humalog SUB-Q 3 unit TID KESHIA Administration Protocol Metoclopramide HCl 5 mg 03/30/20 03:36 Reglan IV Q6H PRN Nausea And Vomiting Metoclopramide HCl 10 mg 03/30/20 16:05 Reglan PO ACHS PRN Vomiting Morphine Sulfate 2 mg 03/30/20 03:36 Morphine IV Q4H PRN Pain, Moderate (4-6) Ondansetron HCl 4 mg 03/30/20 03:36 Zofran IV Q4H PRN Nausea And Vomiting Ondansetron HCl 4 mg 03/30/20 22:00 03/31/20 05:26 Zofran Odt PO 4 mg Q8HR KESHIA Administration Pantoprazole Sodium 40 mg 03/30/20 22:00 03/30/20 21:31 Protonix PO 40 mg BID KESHIA Administration Sodium Chloride 10 ml 03/30/20 10:00 03/30/20 21:31 Sodium Chloride Flush Syringe 10 Ml IV 10 ml BID KESHIA Administration Sodium Chloride 10 ml 03/30/20 03:36 Sodium Chloride Flush Syringe 10 Ml IV PRN PRN LINE FLUSH Sucralfate 1 gm 03/30/20 16:30 03/31/20 07:47 Carafate PO 1 gm ACHS KESHIA Administration
[2020-03-31] MEDS: INSULIN LISPRO 100 UNIT/ML SUB-Q SCH ×2 (09:17→13:14)
[2020-03-31] MEDS: DICYCLOMINE 10 MG CAP PO SCH ×3 (09:17→17:12)
[2020-03-31] MEDS: chlorproMAZINE 25 MG TAB PO SCH ×2 (09:17→13:13)
[2020-03-31] MEDS: PANTOPRAZOLE 40 MG TAB PO SCH (09:18)
[2020-03-31] MEDS: ENOXAPARIN 30 MG/0.3 ML INJ SUB-Q SCH (09:18)
[2020-03-31] MEDS: amLODIPine 10 MG TAB PO SCH (09:19)
[2020-03-31] MEDS: carvediloL 25 MG TAB PO SCH (09:19)
[2020-03-31 09:55] LABS: Calcium 7.9 mg/dL (8.4-10.2)
[2020-03-31 17:05] VITALS: BP 136/80
== END 2020-03-31 18:43 | disposition home or self-care (01) | DRG 73 ==
LOC: ED 19:40 → 4A 03-30 02:48 → OBSVTOIN 03-30 17:00 → IMCU 03-30 18:26
PROVIDERS: ADMIT Internal Medicine; ATTEND Internal Medicine
PROC: 5A1D70Z Performance of Urinary Filtration, Intermittent, Less than 6 Hours Per Day (ICD-10-PCS; principal; 2020-03-30)
DX: E11.43 Type 2 diabetes mellitus with diabetic autonomic (poly)neuropathy (principal); N18.6 End stage renal disease; N25.81 Secondary hyperparathyroidism of renal origin; I13.2 Hypertensive heart and chronic kidney disease with heart failure and with stage 5 chronic kidney disease, or end stage renal disease; E87.5 Hyperkalemia; K31.84 Gastroparesis; D64.9 Anemia, unspecified; E11.22 Type 2 diabetes mellitus with diabetic chronic kidney disease; D63.1 Anemia in chronic kidney disease; I50.9 Heart failure, unspecified; J45.909 Unspecified asthma, uncomplicated; Z99.2 Dependence on renal dialysis; Z79.4 Long term (current) use of insulin; Z79.899 Other long term (current) drug therapy; Z82.49 Family history of ischemic heart disease and other diseases of the circulatory system; Z90.49 Acquired absence of other specified parts of digestive tract; I25.2 Old myocardial infarction
CPT/HCPCS: 36415; 71250; 74176; 80048; 80053; 81001; 82962; 83690; 85025; 87086; 87641; G0378; C9113; J0360; J0610; J1200; J1650; J1815; J2765; J2930; J7030; Q0161; Q0162

== ENCOUNTER 2020-04-04 09:58 | Inpatient (IN) | payer MEDICARE ==
[2020-04-04] MEDS ORDERED: ONDANSETRON 4 MG/2 ML INJ IV ONE (10:20)
[2020-04-04] MEDS ORDERED: SODIUM CHLORIDE 0.9% 500 ML 500 ML IV ONE (10:20)
[2020-04-04] MEDS ORDERED: FAMOTIDINE 20 MG/2 ML INJ IV ONE (10:20)
[2020-04-04] MEDS ORDERED: DICYCLOMINE 20 MG/2 ML INJ IM ONE (10:20)
[2020-04-04] MEDS ORDERED: PANTOPRAZOLE 40 MG INJ IV ONE (10:21)
[2020-04-04] MEDS ORDERED: hydrALAZINE 20 MG/1 ML INJ IV ONE (10:24)
[2020-04-04 11:13] LABS: Basophils # (Auto) 0.1 K/mm3 (0.0-0.1); Basophils % (Auto) 1.3 % (0.0-1.8); Eosinophils # (Auto) 0.1 K/mm3 (0.0-0.4); Eosinophils % (Auto) 1.1 % (0.0-4.3); Hematocrit 35.8 % (35.5-45.6); Hemoglobin 11.9 gm/dl (11.8-15.2); Mean Corpuscular HGB Conc 33 % (32-34); Mean Corpuscular Volume 81 fl (84-94); Monocytes # (Auto) 0.6 K/mm3 (0.0-0.8); Monocytes % (Auto) 5.6 % (0.0-7.3); Platelet Count 422 K/mm3 (140-440); Red Blood Count 4.42 M/mm3 (3.65-5.03); Red Cell Distribution Width 17.3 % (13.2-15.2)
[2020-04-04 11:29] LABS: Calcium 7.3 mg/dL (8.4-10.2)
--- NOTE | 2020-04-04 12:34 | Emergency Department Report ---
ED General Adult HPI - General Chief complaint: GI Bleed Stated complaint: VOMITING BLOOD,HTN Time Seen by Provider: 04/04/20 10:18 Source: patient, EMS Mode of arrival: Stretcher Limitations: No Limitations - History of Present Illness Initial comments: Patient is a 34-year-old F [place] male with a past medical history of hypertension diabetes erosive esophagitis and medical noncompliance who is presenting with nausea vomiting and hematemesis. Patient is well-known to our department and has had the same issue multiple times. When the patient misses dialysis he is blood pressure elevates and he begins to vomit and because of his ulcerative esophagitis he vomits blood. He has not had any drops of his hemoglobin as of yet this year. Patient's last dialysis was . His normal schedule is Saturday and Saturday. He did not get dialyzed last Saturday and is presenting today with the above complaints. He denies fever chills Severity scale (0 -10): 10 - Related Data Previous Rx's Medication Instructions Recorded Last Taken Type Dicyclomine [Bentyl] 10 mg PO QID #30 capsule 02/09/20 03/14/20 Rx chlorproMAZINE [Thorazine] 25 mg PO TID #20 tablet 02/09/20 03/12/20 Rx Sucralfate [Carafate] 1 gm PO ACHS #120 tablet 03/05/20 03/12/20 Rx Albuterol Sulfate [Albuterol 0.63% 0.63 mg IH Q4HR PRN #30 03/11/20 03/12/20 Rx NEBS] Lispro Insulin [HumaLOG] See Protocol SQ TID #10 units 03/11/20 03/15/20 Rx amLODIPine 10 mg PO DAILY #30 03/11/20 03/12/20 Rx carvediloL [Coreg] 25 mg PO BID #60 tablet 03/11/20 03/12/20 Rx hydrALAZINE [Apresoline TAB] 100 mg PO Q8HR #90 tab 03/11/20 03/12/20 Rx Metoclopramide [Reglan TAB] 10 mg PO ACHS PRN #30 tablet 03/16/20 Unknown Rx Ondansetron [Zofran ODT TAB] 4 mg PO Q8HR #10 tab.rapdis 03/16/20 Unknown Rx Pantoprazole [Protonix TAB] 40 mg PO BID #60 tablet 03/16/20 Unknown Rx Ondansetron [Zofran ODT TAB] 4 mg PO Q8HR #10 tab.rapdis 03/22/20 Unknown Rx Allergies Allergy/AdvReac Type Severity Reaction Status Date / Time No Known Allergies Allergy Verified 03/09/20 19:55 ED Review of Systems ROS: Stated complaint: VOMITING BLOOD,HTN Other details as noted in HPI Comment: All other systems reviewed and negative ED Past Medical Hx - Past Medical History Previous Medical History?: Yes Hx Hypertension: Yes Hx Heart Attack/AMI: Yes Hx Congestive Heart Failure: Yes Hx Diabetes: Yes Hx Deep Vein Thrombosis: No Hx Pulmonary Embolism: No Hx Liver Disease: No Hx Renal Disease: No Hx Sickle Cell Disease: No Hx Kidney Stones: No Hx Asthma: Yes Hx COPD: No Hx Tuberculosis: No Hx HIV: No Additional medical history: Ulcerative esophagitis, Gastroparesis HD MWF - Surgical History Past Surgical History?: No Hx Coronary Stent: No Hx Pacemaker: No Hx Internal Defibrillator: No Hx Cholecystectomy: (v,vas) Hx Appendectomy: Yes Additional Surgical History: right great toe removed, Right chest PERMA-CATH - Social History Smoking Status: Never Smoker Substance Use Type: None - Medications Home Medications: Home Medications Medication Instructions Recorded Confirmed Last Taken Type Dicyclomine [Bentyl] 10 mg PO QID #30 capsule 02/09/20 03/30/20 03/14/20 Rx chlorproMAZINE [Thorazine] 25 mg PO TID #20 tablet 02/09/20 03/30/20 03/12/20 Rx Sucralfate [Carafate] 1 gm PO ACHS #120 tablet 03/05/20 03/30/20 03/12/20 Rx Albuterol Sulfate [Albuterol 0.63% 0.63 mg IH Q4HR PRN #30 03/11/20 03/30/20 03/12/20 Rx NEBS] Lispro Insulin [HumaLOG] See Protocol SQ TID #10 units 03/11/20 03/30/20 03/15/20 Rx amLODIPine 10 mg PO DAILY #30 03/11/20 03/30/20 03/12/20 Rx carvediloL [Coreg] 25 mg PO BID #60 tablet 03/11/20 03/30/20 03/12/20 Rx hydrALAZINE [Apresoline TAB] 100 mg PO Q8HR #90 tab 03/11/20 03/30/20 03/12/20 Rx Metoclopramide [Reglan TAB] 10 mg PO ACHS PRN #30 tablet 03/16/20 03/30/20 Unknown Rx Ondansetron [Zofran ODT TAB] 4 mg PO Q8HR #10 tab.rapdis 03/16/20 03/30/20 Unknown Rx Pantoprazole [Protonix TAB] 40 mg PO BID #60 tablet 03/16/20 03/30/20 Unknown Rx Ondansetron [Zofran ODT TAB] 4 mg PO Q8HR #10 tab.rapdis 03/22/20 03/30/20 Unknown Rx ED Physical Exam - General Limitations: No Limitations General appearance: alert, in distress, other (Patient is diaphoretic and actively vomiting) - Head Head exam: Present: atraumatic, normocephalic - Eye Eye exam: Present: normal appearance - ENT ENT exam: Present: mucous membranes moist - Neck Neck exam: Present: normal inspection - Respiratory Respiratory exam: Present: normal lung sounds bilaterally. Absent: respiratory distress, wheezes, rales - Cardiovascular Cardiovascular Exam: Present: normal rhythm, tachycardia. Absent: systolic murmur, diastolic murmur, rubs, gallop - GI/Abdominal GI/Abdominal exam: Present: soft, tenderness (Epigastric), normal bowel sounds. Absent: distended, guarding, rebound, rigid - Rectal Rectal exam: Present: deferred - Extremities Exam Extremities exam: Present: normal inspection - Back Exam Back exam: Present: normal inspection - Neurological Exam Neurological exam: Present: alert, oriented X3 - Psychiatric Psychiatric exam: Present: normal affect, normal mood - Skin Skin exam: Present: warm, dry, intact, normal color. Absent: rash ED Course Vital Signs 04/04/20 04/04/20 04/04/20 10:08 10:12 10:15 Temperature 99 F Pulse Rate 110 H 110 H 114 H Respiratory 24 26 H 14 Rate Blood Pressure 250/155 Blood Pressure 239/138 [Left] O2 Sat by Pulse 100 94 Oximetry 04/04/20 04/04/20 04/04/20 10:30 10:46 11:00 Temperature Pulse Rate 109 H 102 H 106 H Respiratory 17 23 24 Rate Blood Pressure 250/155 250/155 250/155 Blood Pressure [Left] O2 Sat by Pulse 100 100 100 Oximetry 04/04/20 04/04/20 04/04/20 11:01 11:16 11:30 Temperature Pulse Rate 105 H 116 H 105 H Respiratory 23 23 Rate Blood Pressure 250/155 191/110 175/96 Blood Pressure [Left] O2 Sat by Pulse 95 96 Oximetry 04/04/20 04/04/20 11:45 12:00 Temperature Pulse Rate 103 H 104 H Respiratory 15 18 Rate Blood Pressure 176/92 167/95 Blood Pressure [Left] O2 Sat by Pulse 97 96 Oximetry ED Medical Decision Making - Lab Data Result diagrams: 04/04/20 10:50 04/04/20 10:50 Lab Results 04/04/20 04/04/20 04/04/20 Range/Units 10:24 10:50 10:50 WBC 10.8 (4.5-11.0) K/mm3 RBC 4.42 (3.65-5.03) M/mm3 Hgb 11.9 (11.8-15.2) gm/dl Hct 35.8 (35.5-45.6) % MCV 81 L (84-94) fl MCH 27 L (28-32) pg MCHC 33 (32-34) % RDW 17.3 H (13.2-15.2) % Plt Count 422 (140-440) K/mm3 Lymph % (Auto) 9.0 L (13.4-35.0) % [place] % (Auto) 5.6 (0.0-7.3) % Eos % (Auto) 1.1 (0.0-4.3) % Baso % (Auto) 1.3 (0.0-1.8) % Lymph # 1.0 L (1.2-5.4) K/mm3 [place] # 0.6 (0.0-0.8) K/mm3 Eos # 0.1 (0.0-0.4) K/mm3 Baso # 0.1 (0.0-0.1) K/mm3 Seg Neutrophils % 83.0 H (40.0-70.0) % Seg Neutrophils # 9.0 H (1.8-7.7) K/mm3 Sodium 137 (137-145) mmol/L Potassium 5.1 H (3.6-5.0) mmol/L Chloride 90.9 L (98-107) mmol/L Carbon Dioxide 23 (22-30) mmol/L Anion Gap 28 mmol/L BUN 65 H (9-20) mg/dL Creatinine 16.8 H (0.8-1.5) mg/dL Estimated GFR 4 ml/min BUN/Creatinine Ratio 4 % Glucose 202 H (75-100) mg/dL POC Glucose 186 H (70-105) Calcium 7.3 L (8.4-10.2) mg/dL Lipase (13-60) units/L 05/25/20 Range/Units 10:50 WBC (4.5-11.0) K/mm3 RBC (3.65-5.03) M/mm3 Hgb (11.8-15.2) gm/dl Hct (35.5-45.6) % MCV (84-94) fl MCH (28-32) pg MCHC (32-34) % RDW (13.2-15.2) % Plt Count (140-440) K/mm3 Lymph % (Auto) (13.4-35.0) % [place] % (Auto) (0.0-7.3) % Eos % (Auto) (0.0-4.3) % Baso % (Auto) (0.0-1.8) % Lymph # (1.2-5.4) K/mm3 [place] # (0.0-0.8) K/mm3 Eos # (0.0-0.4) K/mm3 Baso # (0.0-0.1) K/mm3 Seg Neutrophils % (40.0-70.0) % Seg Neutrophils # (1.8-7.7) K/mm3 Sodium (137-145) mmol/L Potassium (3.6-5.0) mmol/L Chloride (98-107) mmol/L Carbon Dioxide (22-30) mmol/L Anion Gap mmol/L BUN (9-20) mg/dL Creatinine (0.8-1.5) mg/dL Estimated GFR ml/min BUN/Creatinine Ratio % Glucose (75-100) mg/dL POC Glucose (70-105) Calcium (8.4-10.2) mg/dL Lipase 43 (13-60) units/L - Medical Decision Making Dr. Jacobson with nephrology has been consulted. Patient will likely get dialyzed today. Patient's potassium is elevated. Patient was given hydralazine for blood pressure control and his blood pressure did drop to 175 systolic. Patient is continued to have nausea but is vomiting slightly less at the time of admission. Critical care attestation.: If time is entered above; I have spent that time in minutes in the direct care of this critically ill patient, excluding procedure time. ED Disposition Clinical Impression: Abdominal pain, Intractable nausea and vomiting, T2DM (type 2 diabetes mellitus), Hematemesis, Gastroparesis, End-stage renal disease needing dialysis, Acute hyperkalemia, Uncontrolled hypertension, Upper GI bleeding Disposition: -09 OP ADMIT IP TO THIS HOSP Is pt being admited?: Yes Does the pt Need Aspirin: No Condition: Stable Time of Disposition: 12:34
[2020-04-04] MEDS ORDERED: LORazepam 2 MG/ML VIAL ONE (14:26)
--- NOTE | 2020-04-04 14:58 | Consultation ---
History of Present Illness - Reason for Consult Consult date: 04/04/20 end stage renal disease - History of Present Illness This is a 34 year-old man with ESRD who presents for nausea, vomiting, abdominal pain. Patient usually dialyzes // at [facility]. Last HD 03/31 here at [facility]. Missed outpatient HD on 04/02. Denies any recent issues with HD, including dizziness, lightheadedness, cramping, chest pain on HD. Abdominal symptoms including nausea and vomiting has been chronic. Currently, patient denies any issues involving renal care including dyspnea, edema, access issues. Denies any current headaches or vision changes. Past History Past Medical History: CAD, dialysis, ESRD, hypertension Past Surgical History: appendectomy, Other (toe surgery) Social history: denies: smoking Family history: no significant family history Medications and Allergies Allergies Allergy/AdvReac Type Severity Reaction Status Date / Time No Known Allergies Allergy Verified 03/09/20 19:55 Home Medications Medication Instructions Recorded Confirmed Last Taken Type Dicyclomine [Bentyl] 10 mg PO QID #30 capsule 02/09/20 03/30/20 03/14/20 Rx chlorproMAZINE [Thorazine] 25 mg PO TID #20 tablet 02/09/20 03/30/20 03/12/20 Rx Sucralfate [Carafate] 1 gm PO ACHS #120 tablet 03/05/20 03/30/20 03/12/20 Rx Albuterol Sulfate [Albuterol 0.63% 0.63 mg IH Q4HR PRN #30 03/11/20 03/30/20 0 03/12/20 Rx NEBS] Lispro Insulin [HumaLOG] See Protocol SQ TID #10 units 03/11/20 03/30/20 Rx amLODIPine 10 mg PO DAILY #30 03/11/20 03/30/20 03/12/20 Rx carvediloL [Coreg] 25 mg PO BID #60 tablet 03/11/20 03/30/20 03/12/20 Rx hydrALAZINE [Apresoline TAB] 100 mg PO Q8HR #90 tab 03/11/20 03/30/20 03/12/20 Rx Metoclopramide [Reglan TAB] 10 mg PO ACHS PRN #30 tablet 03/16/20 03/30/20 Unknown Rx Ondansetron [Zofran ODT TAB] 4 mg PO Q8HR #10 tab.rapdis 03/16/20 03/30/20 Unkn own Rx Pantoprazole [Protonix TAB] 40 mg PO BID #60 tablet 03/16/20 03/30/20 Unknown Rx Ondansetron [Zofran ODT TAB] 4 mg PO Q8HR #10 tab.rapdis 03/22/20 03/30/20 Unknown Rx Review of Systems All systems: negative (as per HPI) Exam - Vital Signs Vital signs: Vital Signs Pulse Resp 110 H 24 04/04/20 10:08 04/04/20 10:08 - Physical Exam Narrative exam: Constitutional: mild acute distress Head: NC/AT Neck: supple Lungs: clear to auscultation CV: RRR, no M/R/G Abdomen: bowel sounds present Back: nontender Extremities: no edema, pulses WNL Skin: intact Neuro: no focal deficits, alert and oriented x4 Results - Lab Results 04/04/20 10:50 04/04/20 10:50 Most recent lab results Calcium 7.3 mg/dL (8.4-10.2) L 04/04/20 10:50 Assessment and Plan This is a 34 year old man who presents with abdominal pain, nausea, vomiting # ESRD: no acute indication for HD today based on mild hyperkalemia, reasonable volume status. Plan for HD tomorrow 04/05/2020 and continue // as needed - daily labs - renally dose meds - avoid nephrotoxins - renal diet # HTN: UF as tolerated with HD. BP elevated on arrival; likely due to vomiting. Resume home meds, may need cardene gtt to slowly bring down BP otherwise # Anemia: last hemoglobin 11.9, no indication for ESAs # Secondary Hyperparathyroidism: continue home binders as needed # Abdominal Pain/N/V: management per primary team
--- NOTE | 2020-04-04 15:05 | History and Physical Report ---
History of Present Illness Date of examination: 04/04/20 Date of admission: 04/04/20 12:34 Chief complaint: Nausea and vomiting hematemesis malignant hypertension. History of present illness: Patient 34-year-old male with history of hypertension diabetes erosive gastritis well-known to the staff from noncompliance and missing dialysis which lead patient is to have malignant hypertension and exacerbation of his erosive gastritis from nausea vomiting. Patient states this is similar to what happened this time. Last hemodialysis was did also receive Saturday and will need again today. Upon presentation to ED patient was found to have malignant hypertension. Nausea and vomiting associated with hematemesis. Patient still having issues with nausea as we speak. And that is his main complaint. No headache no chest pain at this particular time. Patient able to speak in full sentences alert. Patient denies any sick contacts denies any fever. Admission was complicated by hyperkalemia as well. Initial blood pressure 196/123. Because patient to have headaches as well as nausea vomiting. Past History Past Medical History: CAD, dialysis, ESRD, hypertension Past Surgical History: appendectomy, Other (toe surgery) Social history: single, lives with family, full code. denies: smoking, alcohol abuse, IV drug use Family history: diabetes, hypertension, other (Maternal diabetes and hypertension.) Medications and Allergies Allergies Allergy/AdvReac Type Severity Reaction Status Date / Time No Known Allergies Allergy Verified 03/09/20 19:55 Home Medications Medication Instructions Recorded Confirmed Last Taken Type Dicyclomine [Bentyl] 10 mg PO QID #30 capsule 02/09/20 03/30/20 03/14/20 Rx chlorproMAZINE [Thorazine] 25 mg PO TID #20 tablet 02/09/20 03/30/20 03/12/20 Rx Sucralfate [Carafate] 1 gm PO ACHS #120 tablet 03/05/20 03/30/20 03/12/20 Rx Albuterol Sulfate [Albuterol 0.63% 0.63 mg IH Q4HR PRN #30 03/11/20 03/30/20 03/12/20 Rx NEBS] Lispro Insulin [HumaLOG] See Protocol SQ TID #10 units 03/11/20 03/30/20 03/15/20 Rx amLODIPine 10 mg PO DAILY #30 03/11/20 03/30/20 03/12/20 Rx carvediloL [Coreg] 25 mg PO BID #60 tablet 03/11/20 03/30/20 03/12/20 Rx hydrALAZINE [Apresoline TAB] 100 mg PO Q8HR #90 tab 03/11/20 03/30/20 03/12/20 Rx Metoclopramide [Reglan TAB] 10 mg PO ACHS PRN #30 tablet 03/16/20 03/30/20 Unknown Rx Ondansetron [Zofran ODT TAB] 4 mg PO Q8HR #10 tab.rapdis 03/16/20 03/30/20 Unknown Rx Pantoprazole [Protonix TAB] 40 mg PO BID #60 tablet 03/16/20 03/30/20 Unknown Rx Ondansetron [Zofran ODT TAB] 4 mg PO Q8HR #10 tab.rapdis 03/22/20 03/30/20 Unknown Rx Review of Systems Constitutional: fatigue, weakness, poor appetite, no weight loss, no weight gain, no fever, no chills, no sweats, no night sweats, no anorexia, no malaise, no chronic headaches, no daytime sleepiness, no chronic pain Ears, nose, mouth and throat: no ear discharge, no decreased hearing, no nasal congestion, no nasal discharge, no dental pain, no mouth pain, no hoarseness, no swelling in mouth, no headache, no pain front of neck Cardiovascular: lightheadedness, high blood pressure, leg edema, decreased exercise tolerance, no chest pain, no orthopnea, no palpitations, no rapid/irregular heart beat, no edema, no syncope, no shortness of breath, no dyspnea on exertion, no paroxysmal nocturnal dyspnea, no claudication, no phlebitis Respiratory: no cough with sputum, no excessive sputum, no hemoptysis, no shortness of breath, no dyspnea on exertion, no congestion, no wheezing, no pain, no sleep apnea Gastrointestinal: abdominal pain, nausea, vomiting, hematemesis, coffee ground emesis, loss of appetite, heartburn, belching, dyspepsia/bloating, no diarrhea, no constipation, no change in bowel habits, no BRBPR, no melena, no hematochezia, no indigestion, no excessive gas, no jaundice, no early satiety, no lactose intolerance Genitourinary Male: no discharge, no urinary hesitancy, no erectile dysfunction, no genital pain, no difficulties fathering child Musculoskeletal: no neck stiffness, no neck pain, no shooting arm pain, no arm numbness/tingling, no low back pain, no shooting leg pain, no muscle weakness, no myalgias, no atrophy, no gait dysfunction, no fractures, no loss of height Integumentary: no sores, no darkening of skin, no striae, no hirsutism Neurological: no transient paralysis, no numbness, no syncope, no tremors, no migraines, no convulsions, no aphasia, no change in mentation, no motor disturbance, no sensory deficit, no paralysis Psychiatric: no anxiety, no change in sleep habits, no sleep disturbances, no insomnia, no hypersomnia, no change in appetite, no suicidal ideation, no disorientation, no hopelessness, no difficulties concentrating, no sadness/tearfullness Endocrine: no heat intolerance, no polydipsia, no nocturia, no weight change, no deepening of the voice, no high blood sugars, no recent glucocorticoid use, no fatigue Exam - Constitutional Vitals: Temp Pulse Resp BP Pulse Ox 99 F 101 H 17 194/119 96 04/04/20 10:12 04/04/20 13:30 04/04/20 13:30 04/04/20 13:30 04/04/20 13:30 General appearance: Present: well-nourished, other (Patient mild to moderate distress appears very weak. Still vomiting. This is patient's main problem) - EENT Eyes: Present: PERRL, EOM intact ENT: other (Mouth shows evidence of blood hematemesis. Oral mucosa stable moist.) - Neck Neck: Present: supple, normal ROM - Respiratory Respiratory: bilateral: CTA - Cardiovascular Rhythm: regular - Extremities Extremities: no ischemia Extremity abnormal: other (Toe surgery. Patient also has neuropathy extensive extending up above medial or lateral malleolus.) Peripheral Pulses: within normal limits - Abdominal General gastrointestinal: Present: soft, non-tender, non-distended, normal bowel sounds. Absent: hepatomegaly, splenomegaly Male genitourinary: Present: deferred - Integumentary Integumentary: Present: clear, warm, dry - Musculoskeletal Musculoskeletal: generalized weakness - Psychiatric Psychiatric: appropriate mood/affect, intact judgment & insight, memory intact - Neurologic Neurologic: CNII-XII intact, moves all extremities Results - Labs CBC & Chem 7: 04/04/20 10:50 04/04/20 10:50 Labs: Laboratory Last Values WBC 10.8 K/mm3 (4.5-11.0) 04/04/20 10:50 RBC 4.42 M/mm3 (3.65-5.03) 04/04/20 10:50 Hgb 11.9 gm/dl (11.8-15.2) 04/04/20 10:50 Hct 35.8 % (35.5-45.6) 04/04/20 10:50 MCV 81 fl (84-94) L 04/04/20 10:50 MCH 27 pg (28-32) L 04/04/20 10:50 MCHC 33 % (32-34) 04/04/20 10:50 RDW 17.3 % (13.2-15.2) H 04/04/20 10:50 Plt Count 422 K/mm3 (140-440) 04/04/20 10:50 Lymph % (Auto) 9.0 % (13.4-35.0) L 04/04/20 10:50 [place] % (Auto) 5.6 % (0.0-7.3) 04/04/20 10:50 Eos % (Auto) 1.1 % (0.0-4.3) 04/04/20 10:50 Baso % (Auto) 1.3 % (0.0-1.8) 04/04/20 10:50 Lymph # 1.0 K/mm3 (1.2-5.4) L 04/04/20 10:50 [place] # 0.6 K/mm3 (0.0-0.8) 04/04/20 10:50 Eos # 0.1 K/mm3 (0.0-0.4) 04/04/20 10:50 Baso # 0.1 K/mm3 (0.0-0.1) 04/04/20 10:50 Seg Neutrophils % 83.0 % (40.0-70.0) H 04/04/20 10:50 Seg Neutrophils # 9.0 K/mm3 (1.8-7.7) H 04/04/20 10:50 Sodium 137 mmol/L (137-145) 04/04/20 10:50 Potassium 5.1 mmol/L (3.6-5.0) H 04/04/20 10:50 Chloride 90.9 mmol/L (98-107) L 04/04/20 10:50 Carbon Dioxide 23 mmol/L (22-30) 04/04/20 10:50 Anion Gap 28 mmol/L 04/04/20 10:50 BUN 65 mg/dL (9-20) H 04/04/20 10:50 Creatinine 16.8 mg/dL (0.8-1.5) H 04/04/20 10:50 Estimated GFR 4 ml/min 04/04/20 10:50 BUN/Creatinine Ratio 4 % 04/04/20 10:50 Glucose 202 mg/dL (75-100) H 04/04/20 10:50 POC Glucose 186 (70-105) H 04/04/20 10:24 Calcium 7.3 mg/dL (8.4-10.2) L 04/04/20 10:50 Lipase 43 units/L (13-60) 04/04/20 10:50 - Diagnostic Impressions Diagnostic Impressions: #1 erosive esophagitis/gastritis-I feel this is most probably problematic for the patient besides malignant hypertension. We will first continue IV Protonix. PRN Carafate. Patient also has some underlying issues with gastroparesis as well. Reglan may benefit patient at some point. We will also provide gentle IV fluids because patient has end-stage renal disease if needed. Attempt to control nausea and vomiting. Place patient back on Carafate when able to hold food down. Will start Compazine 10 mg IV every 6 hours as needed for patient's nausea. Follow-up electrolyte abnormalities. GI consult. Patient may need EGD. N.p.o. for now after midnight. #2 malignant hypertension. Will add IV medications to gain blood pressure control more aggressively. Will start labetalol IV and hydralazine until patient able to swallow. Once able to swallow will resume patient's p.o. medications. #3 end-stage renal disease. Renal has already been obtained for further hemodialysis. #4 hyperkalemia secondary to patient's renal failure. #5 medicinal noncompliance. Stressed the importance of patient meeting his dialysis requirements. #6 anemia patient's has not dropped his H&H on last 2 hospital admissions. No transfusion needed at this time. Anemia is chronic from renal disease. #7 diabetes will start patient on sliding scale insulin. 10 units 3 times daily with meals. #8 DVT prophylaxis we will hold secondary to continue vomiting and hematemesis #9 chest pain most likely noncardiogenic at this time. Patient does have a history of coronary disease. Will treat most likely etiology of esophagitis abdominal pain prior to stress test at this time. Presenting and abdominal pain most likely secondary to erosive gastritis. Continue IV Protonix carefully if patient able to respond. Perez/IV: IV Catheter Type [Left INT / Saline Lock External Jugular] Assessment and Plan Advance Directives: Yes VTE prophylaxis?: Not ordered Contraindication Mechanical VTE Prophylaxis: Contraindicated Reason for no VTE Prophylaxis: Bleeding Plan of care discussed with patient/family: Yes
[2020-04-04] MEDS ORDERED: SODIUM CHLORIDE 0.9% 100 ML IV PRN (15:08)
[2020-04-04] MEDS ORDERED: ACETAMINOPHEN 325 MG TAB PO PRN (15:16)
[2020-04-04] MEDS ORDERED: NALOXONE 0.4 MG/1 ML INJ IV PRN (15:16)
[2020-04-04] MEDS ORDERED: DEXTROSE 50% IN WATER (25GM) 50 ML SYRINGE IV PRN (15:16)
[2020-04-04] MEDS ORDERED: ALBUTEROL SULFATE 0.63 MG IH PRN (15:27)
[2020-04-04] MEDS ORDERED: ALBUTEROL 2.5 MG/3 ML NEBU IH PRN (15:33)
[2020-04-04] MEDS ORDERED: MORPHINE 2 MG/1 ML INJ ONE (15:38)
[2020-04-04] MEDS ORDERED: METOCLOPRAMIDE 10 MG/2 ML INJ ONE (15:38)
[2020-04-04] MEDS: METOCLOPRAMIDE 10 MG/2 ML INJ IV PRN (15:41)
[2020-04-04] MEDS: MORPHINE 2 MG/1 ML INJ IV PRN ×2 (15:47→22:06)
[2020-04-04] MEDS: hydrALAZINE 20 MG/1 ML INJ IV PRN (17:31)
[2020-04-04] MEDS: INSULIN LISPRO 100 UNIT/ML SUB-Q SCH (17:59)
[2020-04-04] MEDS: PROCHLORPERAZINE EDISYLATE 10 MG/2 ML VIAL IV PRN (18:00)
[2020-04-04] MEDS: SUCRALFATE 1 GM TAB PO SCH ×2 (18:06→22:06)
[2020-04-04] MEDS ORDERED: PANTOPRAZOLE 80 MG in SODIUM CHLORIDE 0.9% 100 ML IV ONE (18:30)
[2020-04-05 05:03] LABS: Basophils # (Auto) 0.1 K/mm3 (0.0-0.1); Eosinophils # (Auto) 0.2 K/mm3 (0.0-0.4); Eosinophils % (Auto) 2.3 % (0.0-4.3); Hematocrit 32.1 % (35.5-45.6); Hemoglobin 10.4 gm/dl (11.8-15.2); Lymphocytes # (Auto) 1.3 K/mm3 (1.2-5.4); Lymphocytes % (Auto) 16.1 % (13.4-35.0); Mean Corpuscular HGB Conc 32 % (32-34); Mean Corpuscular Volume 82 fl (84-94); Monocytes # (Auto) 0.8 K/mm3 (0.0-0.8); Monocytes % (Auto) 10.3 % (0.0-7.3); Platelet Count 376 K/mm3 (140-440); Red Blood Count 3.91 M/mm3 (3.65-5.03)
[2020-04-05 05:23] LABS: Albumin 2.9 g/dL (3.9-5); Calcium 7.2 mg/dL (8.4-10.2)
[2020-04-05] MEDS: INSULIN LISPRO 100 UNIT/ML SUB-Q SCH ×4 (06:00→18:07)
[2020-04-05] MEDS: SUCRALFATE 1 GM TAB PO SCH ×4 (08:55→21:31)
[2020-04-05] MEDS: hydrALAZINE 20 MG/1 ML INJ IV PRN ×2 (13:40→21:32)
--- NOTE | 2020-04-05 13:47 | Progress Note ---
Assessment and Plan This is a 34 year old man who presents with abdominal pain, nausea, vomiting # ESRD: continue HD //, had HD this AM without issues. Next HD 04/07 - daily labs - renally dose meds - avoid nephrotoxins - renal diet # HTN: UF as tolerated with HD. BP remains elevated even after HD. Would restart home meds including amlodipine 10mg, carvedilol 25mg BID, hydralazine 100mg TID if able to take pills, may need cardene gtt to slowly bring down BP otherwise # Anemia: last hemoglobin 10.4, no indication for ESAs # Secondary Hyperparathyroidism: continue home binders as needed # Abdominal Pain/N/V: management per primary team Subjective Date of service: 04/05/20 Interval history: No acute events noted. Feels that nausea, vomiting are improving. Had HD this AM, no issues noted. Denies cramping, dizziness Objective - Exam Narrative Exam: Constitutional: no acute distress Head: NC/AT Neck: supple Lungs: clear to auscultation CV: RRR, no M/R/G Abdomen: bowel sounds present Back: nontender Extremities: no edema, pulses WNL Skin: intact Neuro: no focal deficits, alert and oriented x4 - Vital Signs Vital signs: Vital Signs - 12hr 04/05/20 04/05/20 04/05/20 03:50 06:00 08:45 Temperature 98.7 F 98.4 F Pulse Rate 92 H 90 91 H Respiratory 18 18 Rate Blood Pressure 179/105 199/113 O2 Sat by Pulse 98 Oximetry 04/05/20 04/05/20 04/05/20 09:00 09:15 09:30 Temperature Pulse Rate 92 H 91 H 92 H Respiratory Rate Blood Pressure 198/114 190/109 184/114 O2 Sat by Pulse Oximetry 04/05/20 04/05/20 04/05/20 09:45 10:00 10:15 Temperature Pulse Rate 94 H 80 90 Respiratory Rate Blood Pressure 200/116 210/123 200/120 O2 Sat by Pulse Oximetry 04/05/20 04/05/20 04/05/20 10:30 10:45 11:00 Temperature Pulse Rate 92 H 93 H 93 H Respiratory Rate Blood Pressure 220/129 207/122 207/119 O2 Sat by Pulse Oximetry 04/05/20 04/05/20 04/05/20 11:15 11:30 11:45 Temperature Pulse Rate 93 H 94 H 96 H Respiratory Rate Blood Pressure 183/98 217/112 212/115 O2 Sat by Pulse Oximetry 04/05/20 04/05/20 04/05/20 12:00 12:15 12:27 Temperature Pulse Rate 95 H 94 H 94 H Respiratory Rate Blood Pressure 221/128 215/123 214/124 O2 Sat by Pulse Oximetry 04/05/20 04/05/20 04/05/20 12:35 13:17 13:40 Temperature 98.2 F 98.3 F Pulse Rate 98 H 104 H 104 H Respiratory 16 20 Rate Blood Pressure 208/124 190/117 190/117 O2 Sat by Pulse 95 Oximetry - Lab 04/05/20 04:30 04/05/20 04:30 Most recent lab results Calcium 7.2 mg/dL (8.4-10.2) L 04/05/20 04:30 Medications & Allergies - Medications Allergies/Adverse Reactions: Allergies No Known Allergies Allergy (Verified 03/09/20 19:55) Home Medications: Home Medications Medication Instructions Recorded Confirmed Last Taken Type Dicyclomine [Bentyl] 10 mg PO QID #30 capsule 02/09/20 04/04/20 04/03/20 Rx chlorproMAZINE [Thorazine] 25 mg PO TID #20 tablet 02/09/20 04/04/20 04/03/20 Rx Sucralfate [Carafate] 1 gm PO ACHS #120 tablet 03/05/20 04/04/20 04/03/20 Rx Albuterol Sulfate [Albuterol 0.63% 0.63 mg IH Q4HR PRN #30 03/11/20 04/04/20 03/12/20 Rx NEBS] Lispro Insulin [HumaLOG] See Protocol SQ TID #10 units 03/11/20 04/04/20 04/03/20 Rx amLODIPine 10 mg PO DAILY #30 03/11/20 04/04/20 04/03/20 Rx carvediloL [Coreg] 25 mg PO BID #60 tablet 03/11/20 04/04/20 04/03/20 Rx hydrALAZINE [Apresoline TAB] 100 mg PO Q8HR #90 tab 03/11/20 04/04/20 04/03/20 Rx Metoclopramide [Reglan TAB] 10 mg PO ACHS PRN #30 tablet 03/16/20 04/04/20 04/03/20 Rx Pantoprazole [Protonix TAB] 40 mg PO BID #60 tablet 03/16/20 04/04/20 04/03/20 Rx Active Medications: Generic Name Dose Route Start Last Admin Trade Name Freq PRN Reason Stop Dose Admin Acetaminophen 650 mg 04/04/20 15:16 Tylenol PO Q4H PRN Pain MILD(1-3)/Fever >100.5/LANZA Albuterol 2.5 mg 04/04/20 15:33 Proventil IH Q4HRT PRN Wheezing Bisacodyl 10 mg 04/04/20 15:16 Dulcolax ND QDAY PRN Constipation unrelieved by MOM Dextrose 50 ml 04/04/20 15:16 D50w (25gm) Syringe IV Q30MIN PRN Hypoglycemia Protocol Hydralazine HCl 10 mg 04/04/20 17:16 04/05/20 13:40 Apresoline IV 10 mg Q6HR PRN Administration SYS BP>160 Sodium Chloride 100 mls @ 999 mls/hr 04/04/20 15:08 Nacl 0.9% IV BRENDAN PRN Hypotension Insulin Human Lispro 0 unit 04/04/20 18:00 04/05/20 12:00 Humalog SUB-Q 04/07/20 23:59 Not Given Q6HR [facility] Protocol Metoclopramide HCl 5 mg 04/04/20 15:16 04/04/20 15:41 Reglan IV 5 mg Q6H PRN Administration Nausea And Vomiting Morphine Sulfate 2 mg 04/04/20 15:16 04/04/20 22:06 Morphine IV 2 mg Q4H PRN Administration Pain, Moderate (4-6) Naloxone HCl 0.1 mg 04/04/20 15:16 Naloxone IV Q2MIN PRN Res Rate </= 8 or 02 SAT < 92% Prochlorperazine Edisylate 10 mg 04/04/20 15:26 04/04/20 18:00 Compazine IV 10 mg Q6H PRN Administration Nausea And Vomiting Sodium Chloride 10 ml 04/04/20 16:00 04/05/20 13:41 Sodium Chloride Flush Syringe 10 Ml IV 10 ml BID KESHIA Administration Sodium Chloride 10 ml 04/04/20 15:16 Sodium Chloride Flush Syringe 10 Ml IV PRN PRN LINE FLUSH Sucralfate 1 gm 04/04/20 16:30 04/05/20 13:39 Carafate PO 1 gm ACHS KESHIA Administration
[2020-04-05] MEDS ORDERED: SODIUM CHLORIDE 0.9% 1000 ML 2,000 ML ONE (14:58)
[2020-04-05] MEDS: METOCLOPRAMIDE 10 MG/2 ML INJ IV PRN (18:08)
--- NOTE | 2020-04-05 18:28 | Progress Note ---
Assessment and Plan Day #2 Symptonmatically better (1) Intractable nausea and vomiting Current Visit: Yes Status: Acute Plan to address problem: - Triggered by hypertensive crisis and missed HD, many times. - Resolved after HD today, and compliance stressed to patient (has missed HD requiring admit to hospital twice this month). Conr HD as per schedule - Continue patient's protonix. - (2)ESRD Compliance counselled (3)Maklignant HTN Improved Cont antihypertensives (4) Gastritis/Esophagitis Cont Protonix (5)DVT prophylaxis Heparin and GI prophylaxis Subjective Date of service: 04/05/20 Principal diagnosis: Esophagitis/vomiting Interval history: Symptomatically better after HD Objective - Constitutional Vitals: Vital Signs - 12hr 04/05/20 04/05/20 04/05/20 08:45 09:00 09:15 Temperature 98.4 F Pulse Rate 91 H 92 H 91 H Respiratory 18 Rate Blood Pressure 199/113 198/114 190/109 O2 Sat by Pulse Oximetry 04/05/20 04/05/20 04/05/20 09:30 09:45 10:00 Temperature Pulse Rate 92 H 94 H 80 Respiratory Rate Blood Pressure 184/114 200/116 210/123 O2 Sat by Pulse Oximetry 04/05/20 04/05/20 04/05/20 10:15 10:30 10:45 Temperature Pulse Rate 90 92 H 93 H Respiratory Rate Blood Pressure 200/120 220/129 207/122 O2 Sat by Pulse Oximetry 04/05/20 04/05/20 04/05/20 11:00 11:15 11:30 Temperature Pulse Rate 93 H 93 H 94 H Respiratory Rate Blood Pressure 207/119 183/98 217/112 O2 Sat by Pulse Oximetry 04/05/20 04/05/20 04/05/20 11:45 12:00 12:15 Temperature Pulse Rate 96 H 95 H 94 H Respiratory Rate Blood Pressure 212/115 221/128 215/123 O2 Sat by Pulse Oximetry 04/05/20 04/05/20 04/05/20 12:27 12:35 13:17 Temperature 98.2 F 98.3 F Pulse Rate 94 H 98 H 104 H Respiratory 16 20 Rate Blood Pressure 214/124 208/124 190/117 O2 Sat by Pulse 95 Oximetry 04/05/20 04/05/20 13:40 16:37 Temperature 98.8 F Pulse Rate 104 H 102 H Respiratory 20 Rate Blood Pressure 190/117 161/97 O2 Sat by Pulse 94 Oximetry General appearance: Present: no acute distress, well-nourished - EENT Eyes: PERRL, EOM intact ENT: hearing intact, clear oral mucosa Ears: bilateral: normal - Neck Neck: supple, normal ROM - Respiratory Respiratory effort: normal Respiratory: bilateral: CTA - Breasts Breasts: normal - Cardiovascular Heart rate: 76 Rhythm: regular Heart Sounds: Present: S1 & S2. Absent: gallop, rub Extremities: pulses intact, No edema, normal color, Full ROM - Gastrointestinal General gastrointestinal: Present: soft, non-tender, non-distended, normal bowel sounds - Genitourinary Male genitourinary: normal - Integumentary Integumentary: clear, warm, dry - Musculoskeletal Musculoskeletal: 1, strength equal bilaterally - Neurologic Neurologic: moves all extremities - Psychiatric Psychiatric: memory intact, appropriate mood/affect, intact judgment & insight - Labs CBC & Chem 7: 04/05/20 04:30 04/05/20 04:30 Labs: Abnormal lab results 04/04/20 04/04/20 04/05/20 Range/Units 17:13 20:49 04:30 Hgb 10.4 L (11.8-15.2) gm/dl Hct 32.1 L (35.5-45.6) % MCV 82 L (84-94) fl MCH 27 L (28-32) pg RDW 17.0 H (13.2-15.2) % [place] % (Auto) 10.3 H (0.0-7.3) % Seg Neutrophils % 70.3 H (40.0-70.0) % Sodium (137-145) mmol/L Potassium (3.6-5.0) mmol/L Chloride (98-107) mmol/L BUN (9-20) mg/dL Creatinine (0.8-1.5) mg/dL Glucose (75-100) mg/dL POC Glucose 183 H 143 H (70-105) Calcium (8.4-10.2) mg/dL Total Protein (6.3-8.2) g/dL Albumin (3.9-5) g/dL 04/05/20 04/05/20 04/05/20 Range/Units 04:30 07:16 13:33 Hgb (11.8-15.2) gm/dl Hct (35.5-45.6) % MCV (84-94) fl MCH (28-32) pg RDW (13.2-15.2) % [place] % (Auto) (0.0-7.3) % Seg Neutrophils % (40.0-70.0) % Sodium 135 L (137-145) mmol/L Potassium 5.1 H (3.6-5.0) mmol/L Chloride 88.9 L (98-107) mmol/L BUN 75 H (9-20) mg/dL Creatinine 17.9 H (0.8-1.5) mg/dL Glucose 146 H (75-100) mg/dL POC Glucose 138 H 192 H (70-105) Calcium 7.2 L (8.4-10.2) mg/dL Total Protein 5.8 L (6.3-8.2) g/dL Albumin 2.9 L (3.9-5) g/dL 04/05/20 Range/Units 16:51 Hgb (11.8-15.2) gm/dl Hct (35.5-45.6) % MCV (84-94) fl MCH (28-32) pg RDW (13.2-15.2) % [place] % (Auto) (0.0-7.3) % Seg Neutrophils % (40.0-70.0) % Sodium (137-145) mmol/L Potassium (3.6-5.0) mmol/L Chloride (98-107) mmol/L BUN (9-20) mg/dL Creatinine (0.8-1.5) mg/dL Glucose (75-100) mg/dL POC Glucose 257 H (70-105) Calcium (8.4-10.2) mg/dL Total Protein (6.3-8.2) g/dL Albumin (3.9-5) g/dL
--- NOTE | 2020-04-05 20:01 | Gastroenterology Consultation ---
History of Present Illness - Reason for Consult Consult date: 04/05/20 N/V Requesting physician: BRENDA MORFIN - History of Present Illness The patient is well-known to our service from prior admits. He has a hx of erosive esophagitis from severe N/V (and ?gastroparesis). This is usually triggered by missed HD, and surges of severe HTN. It usually resolves within 12 hours of re-initiation of HD. He missed HD this weekend, and was admitted with N/V/hyperemesis. Today, in his room after HD, he has tolerated a full dinner without N/V. He denies hematememesis or melena. His labs are near-baseline. Past History Past Medical History: CAD, dialysis, ESRD, hypertension Past Surgical History: appendectomy, Other (toe surgery) Social history: single, lives with family, full code. denies: smoking, alcohol abuse, IV drug use Family history: diabetes, hypertension, other (Maternal diabetes and hypertension.) Medications and Allergies Allergies Allergy/AdvReac Type Severity Reaction Status Date / Time No Known Allergies Allergy Verified 03/09/20 19:55 Home Medications Medication Instructions Recorded Confirmed Last Taken Type Dicyclomine [Bentyl] 10 mg PO QID #30 capsule 02/09/20 04/04/20 04/03/20 Rx chlorproMAZINE [Thorazine] 25 mg PO TID #20 tablet 02/09/20 04/04/20 04/03/20 Rx Sucralfate [Carafate] 1 gm PO ACHS #120 tablet 03/05/20 04/04/20 04/03/20 Rx Albuterol Sulfate [Albuterol 0.63% 0.63 mg IH Q4HR PRN #30 03/11/20 04/04/20 03/12/20 Rx NEBS] Lispro Insulin [HumaLOG] See Protocol SQ TID #10 units 03/11/20 04/04/20 04/03/20 Rx amLODIPine 10 mg PO DAILY #30 03/11/20 04/04/20 04/03/20 Rx carvediloL [Coreg] 25 mg PO BID #60 tablet 03/11/20 04/04/20 04/03/20 Rx hydrALAZINE [Apresoline TAB] 100 mg PO Q8HR #90 tab 03/11/20 04/04/20 04/03/20 Rx Metoclopramide [Reglan TAB] 10 mg PO ACHS PRN #30 tablet 03/16/20 04/04/20 Rx Pantoprazole [Protonix TAB] 40 mg PO BID #60 tablet 03/16/20 04/04/20 04/03/20 Rx Active Meds: Active Medications Acetaminophen (Tylenol) 650 mg PO Q4H PRN PRN Reason: Pain MILD(1-3)/Fever >100.5/LANZA Albuterol (Proventil) 2.5 mg IH Q4HRT PRN PRN Reason: Wheezing Bisacodyl (Dulcolax) 10 mg [place] QDAY PRN PRN Reason: Constipation unrelieved by MOM Dextrose (D50w (25gm) Syringe) 50 ml IV Q30MIN PRN; Protocol PRN Reason: Hypoglycemia Hydralazine HCl (Apresoline) 10 mg IV Q6HR PRN PRN Reason: SYS BP>160 Last Admin: 04/05/20 13:40 Dose: 10 mg Documented by: Sodium Chloride (Nacl 0.9%) 100 mls @ 999 mls/hr IV BRENDAN PRN PRN Reason: Hypotension Insulin Human Lispro (Humalog) 0 unit SUB-Q Q6HR KESHIA; Protocol Stop: 04/07/20 23:59 Last Admin: 04/05/20 18:07 Dose: 4 unit Documented by: Metoclopramide HCl (Reglan) 5 mg IV Q6H PRN PRN Reason: Nausea And Vomiting Last Admin: 04/05/20 18:08 Dose: 5 mg Documented by: Morphine Sulfate (Morphine) 2 mg IV Q4H PRN PRN Reason: Pain, Moderate (4-6) Last Admin: 04/04/20 22:06 Dose: 2 mg Documented by: Naloxone HCl (Naloxone) 0.1 mg IV Q2MIN PRN PRN Reason: Res Rate </= 8 or 02 SAT < 92% Prochlorperazine Edisylate (Compazine) 10 mg IV Q6H PRN PRN Reason: Nausea And Vomiting Last Admin: 04/04/20 18:00 Dose: 10 mg Documented by: Sodium Chloride (Sodium Chloride Flush Syringe 10 Ml) 10 ml IV BID KESHIA Last Admin: 05/26/20 13:41 Dose: 10 ml Documented by: Sodium Chloride (Sodium Chloride Flush Syringe 10 Ml) 10 ml IV PRN PRN PRN Reason: LINE FLUSH Last Admin: 04/05/20 18:09 Dose: 10 ml Documented by: Sucralfate (Carafate) 1 gm PO ACHS KESHIA Last Admin: 04/05/20 18:08 Dose: 1 gm Documented by: I HAVE REVIEWED/RECONCILED MEDICATIONS Review of Systems - Review of Systems All systems: negative (as noted in the HPI.) Exam - Constitutional Vital Signs: Temp Pulse Resp BP Pulse Ox 98.8 F 102 H 20 161/97 94 04/05/20 16:37 04/05/20 18:00 04/05/20 16:37 04/05/20 16:37 04/05/20 16:37 General appearance: no acute distress - EENT Eyes: PERRL, EOM intact ENT: hearing intact, clear oral mucosa, no thrush - Neck Neck: supple, normal ROM - Respiratory Respiratory effort: normal Respiratory: bilateral: CTA - Cardiovascular Rhythm: regular Heart Sounds: Present: S1 & S2 - Gastrointestinal General gastrointestinal: Present: soft, non-tender, non-distended - Integumentary Integumentary: Present: clear, warm, dry - Neurologic Neurological: alert and oriented x3 - Labs CBC & Chem 7: 04/05/20 04:30 04/05/20 04:30 Lab Results: Laboratory Results - last 24 hr 04/04/20 04/04/20 04/05/20 17:13 20:49 04:30 WBC 7.9 RBC 3.91 Hgb 10.4 L Hct 32.1 L MCV 82 L MCH 27 L MCHC 32 RDW 17.0 H Plt Count 376 Lymph % (Auto) 16.1 Maury % (Auto) 10.3 H Eos % (Auto) 2.3 Baso % (Auto) 1.0 Lymph # 1.3 Maury # 0.8 Eos # 0.2 Baso # 0.1 Seg Neutrophils % 70.3 H Seg Neutrophils # 5.5 Sodium Potassium Chloride Carbon Dioxide Anion Gap BUN Creatinine Estimated GFR BUN/Creatinine Ratio Glucose POC Glucose 183 H 143 H Calcium Total Bilirubin AST ALT Alkaline Phosphatase Total Protein Albumin Albumin/Globulin Ratio 04/05/20 04/05/20 04/05/20 04:30 07:16 13:33 WBC RBC Hgb Hct MCV MCH MCHC RDW Plt Count Lymph % (Auto) Maury % (Auto) Eos % (Auto) Baso % (Auto) Lymph # Maury # Eos # Baso # Seg Neutrophils % Seg Neutrophils # Sodium 135 L Potassium 5.1 H Chloride 88.9 L Carbon Dioxide 24 Anion Gap 27 BUN 75 H Creatinine 17.9 H Estimated GFR 4 BUN/Creatinine Ratio 4 Glucose 146 H POC Glucose 138 H 192 H Calcium 7.2 L Total Bilirubin 0.30 AST 12 ALT 9 Alkaline Phosphatase 79 Total Protein 5.8 L Albumin 2.9 L Albumin/Globulin Ratio 1.0 04/05/20 16:51 WBC RBC Hgb Hct MCV MCH MCHC RDW Plt Count Lymph % (Auto) Maury % (Auto) Eos % (Auto) Baso % (Auto) Lymph # Maury # Eos # Baso # Seg Neutrophils % Seg Neutrophils # Sodium Potassium Chloride Carbon Dioxide Anion Gap BUN Creatinine Estimated GFR BUN/Creatinine Ratio Glucose POC Glucose 257 H Calcium Total Bilirubin AST ALT Alkaline Phosphatase Total Protein Albumin Albumin/Globulin Ratio Assessment and Plan - Patient Problems (1) Intractable nausea and vomiting Current Visit: Yes Status: Acute Plan to address problem: - Triggered by hypertensive crisis and missed HD, many times. - Resolved after HD today, and compliance stressed to patient (has missed HD requiring admit to hospital twice this month). - No further recommendations other than to continue patient's protonix. - Will sign off; please call if needed.
[2020-04-05] MEDS: MORPHINE 2 MG/1 ML INJ IV PRN (21:32)
[2020-04-05] MEDS: PROCHLORPERAZINE EDISYLATE 10 MG/2 ML VIAL IV PRN (21:33)
[2020-04-06] MEDS: INSULIN LISPRO 100 UNIT/ML SUB-Q SCH ×4 (00:09→17:01)
[2020-04-06] MEDS: hydrALAZINE 20 MG/1 ML INJ IV PRN (06:09)
[2020-04-06] MEDS: SUCRALFATE 1 GM TAB PO SCH ×3 (08:36→16:56)
[2020-04-06] MEDS ORDERED: EPOETIN ALFA 10,000 UNIT/1 ML INJ ONE (09:28)
[2020-04-06] MEDS ORDERED: SODIUM CHLORIDE 0.9% 1000 ML 2,000 ML ONE (09:28)
[2020-04-06] MEDS: carvediloL 25 MG TAB PO SCH ×2 (12:12→12:13)
--- NOTE | 2020-04-06 12:52 | Progress Note ---
Assessment and Plan ESRD: continue HD /, - daily labs - renally dose meds - avoid nephrotoxins - renal diet # HTN: UF as tolerated with HD. BP remains elevated even after HD. restarted home meds prn cardene gtt to slowly bring down BP otherwise # Anemia: last hemoglobin 10.4, no indication for ESAs # Secondary Hyperparathyroidism: continue home binders as needed # Abdominal Pain/N/V: management per primary team Subjective Date of service: 04/06/20 Principal diagnosis: Esophagitis/vomiting Interval history: resting well in bed today Objective - Exam Narrative Exam: Constitutional: no acute distress Head: NC/AT Neck: supple Lungs: clear to auscultation CV: RRR, no M/R/G Abdomen: bowel sounds present Back: nontender Extremities: no edema, pulses WNL Skin: intact Neuro: no focal deficits, alert and oriented x4 - Vital Signs Vital signs: Vital Signs - 12hr 04/06/20 04/06/20 04/06/20 02:00 04:17 04:20 Temperature 98.9 F Pulse Rate 94 H 95 H Pulse Rate [ Radial] Respiratory 18 Rate Blood Pressure 184/101 O2 Sat by Pulse 91 Oximetry 04/06/20 04/06/20 04/06/20 06:09 08:16 10:30 Temperature 97.9 F Pulse Rate 95 H 93 H Pulse Rate [ 92 H Radial] Respiratory 17 Rate Blood Pressure 184/101 155/95 O2 Sat by Pulse 96 Oximetry 04/06/20 04/06/20 04/06/20 11:58 12:12 12:13 Temperature 98.4 F Pulse Rate 95 H 95 H 95 H Pulse Rate [ Radial] Respiratory 17 Rate Blood Pressure 191/107 191/107 191/107 O2 Sat by Pulse 100 Oximetry - Lab 04/05/20 04:30 04/05/20 04:30 Most recent lab results Calcium 7.2 mg/dL (8.4-10.2) L 04/05/20 04:30 Medications & Allergies - Medications Allergies/Adverse Reactions: Allergies No Known Allergies Allergy (Verified 03/09/20 19:55) Home Medications: Home Medications Medication Instructions Recorded Confirmed Last Taken Type Dicyclomine [Bentyl] 10 mg PO QID #30 capsule 02/09/20 04/04/20 04/03/20 Rx chlorproMAZINE [Thorazine] 25 mg PO TID #20 tablet 02/09/20 04/04/20 04/03/20 Rx Sucralfate [Carafate] 1 gm PO ACHS #120 tablet 03/05/20 04/04/20 04/03/20 Rx Albuterol Sulfate [Albuterol 0.63% 0.63 mg IH Q4HR PRN #30 03/11/20 04/04/20 03/12/20 Rx NEBS] Lispro Insulin [HumaLOG] See Protocol SQ TID #10 units 03/11/20 04/04/20 04/03/20 Rx amLODIPine 10 mg PO DAILY #30 03/11/20 04/04/20 04/03/20 Rx carvediloL [Coreg] 25 mg PO BID #60 tablet 03/11/20 04/04/20 04/03/20 Rx hydrALAZINE [Apresoline TAB] 100 mg PO Q8HR #90 tab 03/11/20 04/04/20 04/03/20 Rx Metoclopramide [Reglan TAB] 10 mg PO ACHS PRN #30 tablet 03/16/20 04/04/20 04/03/20 Rx Pantoprazole [Protonix TAB] 40 mg PO BID #60 tablet 03/16/20 04/04/20 04/03/20 Rx Active Medications: Generic Name Dose Route Start Last Admin Trade Name Freq PRN Reason Stop Dose Admin Acetaminophen 650 mg 04/04/20 15:16 Tylenol PO Q4H PRN Pain MILD(1-3)/Fever >100.5/LANZA Albuterol 2.5 mg 04/04/20 15:33 Proventil IH Q4HRT PRN Wheezing Amlodipine Besylate 10 mg 04/06/20 13:00 04/06/20 12:12 Amlodipine PO 10 mg QDAY KESHIA Administration Bisacodyl 10 mg 04/04/20 15:16 Dulcolax [place] QDAY PRN Constipation unrelieved by MOM Carvedilol 25 mg 04/06/20 13:00 04/06/20 12:13 Coreg PO 25 mg BID KESHIA Administration Dextrose 50 ml 04/04/20 15:16 D50w (25gm) Syringe IV Q30MIN PRN Hypoglycemia Protocol Hydralazine HCl 10 mg 04/04/20 17:16 04/06/20 06:09 Apresoline IV 10 mg Q6HR PRN Administration SYS BP>160 Hydralazine HCl 100 mg 04/06/20 14:00 Apresoline PO Q8HR KESHIA Sodium Chloride 100 mls @ 999 mls/hr 04/04/20 15:08 Nacl 0.9% IV BRENDAN PRN Hypotension Insulin Human Lispro 0 unit 04/04/20 18:00 04/06/20 12:08 Humalog SUB-Q 04/07/20 23:59 2 unit Q6HR KESHIA Administration Protocol Metoclopramide HCl 5 mg 04/04/20 15:16 04/05/20 18:08 Reglan IV 5 mg Q6H PRN Administration Nausea And Vomiting Morphine Sulfate 2 mg 04/04/20 15:16 04/05/20 21:32 Morphine IV 2 mg Q4H PRN Administration Pain, Moderate (4-6) Naloxone HCl 0.1 mg 04/04/20 15:16 Naloxone IV Q2MIN PRN Res Rate </= 8 or 02 SAT < 92% Prochlorperazine Edisylate 10 mg 04/04/20 15:26 04/05/20 21:33 Compazine IV 10 mg Q6H PRN Administration Nausea And Vomiting Sodium Chloride 10 ml 04/04/20 16:00 04/06/20 11:53 Sodium Chloride Flush Syringe 10 Ml IV 10 ml BID KESHIA Administration Sodium Chloride 10 ml 04/04/20 15:16 04/05/20 18:09 Sodium Chloride Flush Syringe 10 Ml IV 10 ml PRN PRN Administration LINE FLUSH Sucralfate 1 gm 04/04/20 16:30 04/06/20 11:50 Carafate PO 1 gm ACHS KESHIA Administration
[2020-04-06] MEDS ORDERED: amLODIPine 10 MG TAB PO SCH (13:00)
[2020-04-06] MEDS ORDERED: hydrALAZINE 100 MG TAB PO SCH (14:00)
--- NOTE | 2020-04-06 15:43 | Discharge Summary ---
Providers - Providers Date of Admission: 04/06/20 08:50 Date of discharge: 04/06/20 Attending physician: BRENDA MORFIN 04/04/20 14:44 Consult to Physician [CONS] Urgent Comment: Consulting Provider: LEN ULRICH Physician Instructions: Reason For Exam: ESRD needing dialysis 04/05/20 08:34 Consult to Physician [CONS] Routine Comment: Consulting Provider: CARLYN GONZALES Physician Instructions: Reason For Exam: gastritis Primary care physician: ROOF TILER Hospitalization Condition: Stable Hospital course: Patient 34-year-old male with history of hypertension diabetes ,erosive gastritis well-known to the staff from noncompliance and missing dialysis which lead patient is to have malignant hypertension and exacerbation of his erosive gastritis/Gastroparesis causing persisten nausea and vomiting. nausea vomiting. Patient states this is similar to what happened this time. Last hemodialysis was did also receive Saturday and will need again today. Upon presentation to ED patient was found to have malignant hypertension. Nausea and vomiting associated with hematemesis. Patient still having issues with nausea as we speak. And that is his main complaint. No headache no chest pain at this particular time. Patient able to speak in full sentences alert. Patient denies any sick contacts denies any fever. Admission was complicated by hyperkalemia as well. Initial blood pressure 196/123. Patient blood pressure better controlled after starting his oral antihypertensives and IV hydralazine. Past History Past Medical History: CAD, dialysis, ESRD, hypertension Past Surgical History: appendectomy, Other (toe surgery) Social history: single, lives with family, full code. denies: smoking, alcohol abuse, IV drug use Family history: diabetes, hypertension, other (Maternal diabetes and hyp ertension.) (1) Intractable nausea and vomiting Current Visit: Yes Status: Acute Plan to address problem: - Triggered by hypertensive crisis and missed HD, many times. - Resolved after HD today, and compliance stressed to patient (has missed HD requiring admit to hospital twice this month). Conr HD as per schedule - Continue patient's protonix. - (2)ESRD Compliance counselled (3)Maklignant HTN Improved Cont antihypertensives Patient counseled about compliance regarding his blood pressure medicines. (4) Gastritis/Esophagitis Cont Protonix (5)DVT prophylaxis Disposition: - TO HOME OR SELFCARE Core Measure Documentation - Palliative Care Palliative Care/ Comfort Measures: Not Applicable - Core Measures Any of the following diagnoses?: none Exam - Constitutional Vitals: Temp Pulse Resp BP Pulse Ox 98.4 F 95 H 17 191/107 100 04/06/20 11:58 04/06/20 12:13 04/06/20 11:58 04/06/20 12:13 04/06/20 11:58 General appearance: Present: no acute distress, well-nourished - EENT Eyes: Present: PERRL ENT: hearing intact, clear oral mucosa - Neck Neck: Present: supple, normal ROM - Respiratory Respiratory effort: normal Respiratory: bilateral: CTA - Cardiovascular Rhythm: regular Heart Sounds: Present: S1 & S2. Absent: rub, click - Extremities Extremities: no ischemia (76), pulses intact, pulses symmetrical, No edema Peripheral Pulses: within normal limits - Abdominal General gastrointestinal: Present: soft, non-tender, non-distended, normal bowel sounds Male genitourinary: Present: normal - Integumentary Integumentary: Present: clear, warm, dry - Musculoskeletal Musculoskeletal: gait normal, strength equal bilaterally - Psychiatric Psychiatric: appropriate mood/affect, intact judgment & insight - Neurologic Neurologic: CNII-XII intact, moves all extremities - Allied Health Allied health notes reviewed: nursing, case management Plan Activity: no restrictions Diet: renal Follow up with: CLEOPATRA HALL MD [Primary Care Provider] - 7 Days CAT BOWLES MD [Staff Physician] - 7 Days
[2020-04-06 16:21] VITALS: BP 154/90
== END 2020-04-06 18:18 | disposition home or self-care (01) | DRG 380 ==
LOC: ED 09:58 → 4A 12:34 → OBSVTOIN 04-06 08:50
PROVIDERS: ADMIT Internal Medicine; ATTEND Internal Medicine
PROC: 5A1D70Z Performance of Urinary Filtration, Intermittent, Less than 6 Hours Per Day (ICD-10-PCS; 2020-04-05)
PROC: 5A1D70Z Performance of Urinary Filtration, Intermittent, Less than 6 Hours Per Day (ICD-10-PCS; principal; 2020-04-06)
DX: K22.11 Ulcer of esophagus with bleeding (principal); N18.6 End stage renal disease; I13.2 Hypertensive heart and chronic kidney disease with heart failure and with stage 5 chronic kidney disease, or end stage renal disease; I16.9 Hypertensive crisis, unspecified; N25.81 Secondary hyperparathyroidism of renal origin; E87.5 Hyperkalemia; E11.65 Type 2 diabetes mellitus with hyperglycemia; Z91.14 Patient's other noncompliance with medication regimen; I25.2 Old myocardial infarction; I50.9 Heart failure, unspecified; E11.22 Type 2 diabetes mellitus with diabetic chronic kidney disease; Z99.2 Dependence on renal dialysis; J45.909 Unspecified asthma, uncomplicated; Z90.49 Acquired absence of other specified parts of digestive tract; E11.43 Type 2 diabetes mellitus with diabetic autonomic (poly)neuropathy; K31.84 Gastroparesis; I25.10 Atherosclerotic heart disease of native coronary artery without angina pectoris; D64.9 Anemia, unspecified; Z83.3 Family history of diabetes mellitus; Z82.49 Family history of ischemic heart disease and other diseases of the circulatory system; Z79.4 Long term (current) use of insulin
CPT/HCPCS: 36415; 80048; 80053; 82962; 83690; 85025; G0378; C9113; J0360; J0500; J0780; J0885; J1815; J2060; J2270; J2405; J2765; J7030; J7040

== ENCOUNTER 2020-04-14 16:31 | Inpatient (IN) | payer MEDICARE ==
[2020-04-14] MEDS ORDERED: ONDANSETRON 4 MG/2 ML INJ IV ONE (17:01)
[2020-04-14] MEDS ORDERED: PANTOPRAZOLE 40 MG INJ IV ONE (17:01)
--- NOTE | 2020-04-14 17:05 | Emergency Department Report ---
HPI - General Chief Complaint: GI Bleed Time Seen by Provider: 04/14/20 16:57 - HPI HPI: This is a 34-year-old male, who is well known to both myself and this facility, who presents today with a 3-day history of nausea, vomiting and hematemesis. Patient has a past medical history of CHF, diabetes, coronary artery disease, hypertension, ulcerative esophagitis, gastroparesis and end-stage renal disease on hemodialysis on Saturday//Saturday. Usually what appears to happen is the patient will miss dialysis sessions, his blood pressure will become elevated and uncontrolled, and the patient will have nausea and vomiting and then has some hematemesis secondary to his ulcerative esophagitis. The patient was just admitted here at the end of March and discharged on 04/06/2020 for similar symptoms. The patient usually gets dialyzed at [facility] and follows with [facility] nephrology. Patient has not been taking his medications because "I have been sick." ED Past Medical Hx - Past Medical History Previous Medical History?: Yes Hx Hypertension: Yes Hx Heart Attack/AMI: Yes Hx Congestive Heart Failure: Yes Hx Diabetes: Yes Hx Deep Vein Thrombosis: No Hx Pulmonary Embolism: No Hx Liver Disease: No Hx Renal Disease: No Hx Sickle Cell Disease: No Hx Kidney Stones: No Hx Asthma: Yes Hx COPD: No Hx Tuberculosis: No Hx HIV: No Additional medical history: Ulcerative esophagitis, Gastroparesis HD MWF - Surgical History Past Surgical History?: No Hx Coronary Stent: No Hx Pacemaker: No Hx Internal Defibrillator: No Hx Cholecystectomy: (v,vas) Hx Appendectomy: Yes Additional Surgical History: right great toe removed, Right chest PERMA-CATH - Social History Smoking Status: Never Smoker Substance Use Type: None - Medications Home Medications: Home Medications Medication Instructions Recorded Confirmed Last Taken Type Dicyclomine [Bentyl] 10 mg PO QID #30 capsule 02/09/20 04/04/20 04/03/20 Rx chlorproMAZINE [Thorazine] 25 mg PO TID #20 tablet 02/09/20 04/04/20 04/03/20 Rx Sucralfate [Carafate] 1 gm PO ACHS #120 tablet 03/05/20 04/04/20 04/03/20 Rx Albuterol Sulfate [Albuterol 0.63% 0.63 mg IH Q4HR PRN #30 05/01/20 05/25/20 05/02/20 Rx NEBS] Lispro Insulin [HumaLOG] See Protocol SQ TID #10 units 03/11/20 04/04/20 04/03/20 Rx Metoclopramide [Reglan TAB] 10 mg PO ACHS PRN 30 Days #30 04/06/20 Unknown Rx tablet Oxycodone HCl/Acetaminophen 1 each PO Q6HR PRN #15 tablet 04/06/20 Unknown Rx [Percocet 7.5/325 mg] Pantoprazole [Protonix TAB] 40 mg PO BID #60 tablet 04/06/20 Unknown Rx Sucralfate [Carafate] 1 gm PO Q6HR #120 udc 04/06/20 Unknown Rx amLODIPine 10 mg PO DAILY #30 04/06/20 Unknown Rx carvediloL [Coreg] 25 mg PO BID 30 Days #60 tablet 04/06/20 Unknown Rx hydrALAZINE [Apresoline TAB] 100 mg PO Q8HR 30 Days #90 tab 04/06/20 Unknown Rx ED Review of Systems ROS: Stated complaint: VOMITING BLOOD X3 DAYS Other details as noted in HPI Comment: All other systems reviewed and negative Constitutional: denies: chills, fever Eyes: denies: eye pain, vision change ENT: denies: ear pain, throat pain Respiratory: denies: cough, shortness of breath Cardiovascular: denies: chest pain, palpitations Gastrointestinal: nausea, vomiting, hematemesis Genitourinary: denies: dysuria, discharge Musculoskeletal: denies: back pain, arthralgia Skin: denies: rash, lesions Neurological: denies: headache, weakness Physical Exam - Physical Exam Vital Signs: Vital Signs 04/14/20 16:51 Temperature 98.7 F Pulse Rate 89 Respiratory 14 Rate Blood Pressure 186/106 [Left] O2 Sat by Pulse 95 Oximetry Physical Exam: GENERAL: The patient is well-developed well-nourished. HENT: Normocephalic. Atraumatic. Patient has moist mucous membranes. EYES: Extraocular motions are intact. NECK: Supple. Trachea is midline. CHEST/LUNGS: Coarse breath sounds. There is no respiratory distress noted. Dialysis catheter in right chest wall. HEART/CARDIOVASCULAR: Regular. There is no tachycardia. There is no murmur. ABDOMEN: Abdomen is soft, nontender. Patient has normal bowel sounds. SKIN: Skin is warm and dry. NEURO: The patient is awake, alert, and oriented. The patient is cooperative. The patient has no focal neurologic deficits. Normal speech. MUSCULOSKELETAL: There is no tenderness or deformity. There is no evidence of acute injury. ED Course Vital Signs 04/14/20 16:51 Temperature 98.7 F Pulse Rate 89 Respiratory 14 Rate Blood Pressure 186/106 [Left] O2 Sat by Pulse 95 Oximetry - Consultations Consultation #1: 04/14/20 19:[address] Jacobson of [facility] nephrology and he agrees with the hyperkalemia cocktail. The patient will receive dialysis in the morning. - EJ/Peripheral Line Neck L Time Out Performed: Yes Indications: nurses unable to establis Skin Cleansed in Sterile Fashion: Yes Size: 20 Dressing Placed: Tegaderm, tape Patient Tolerated Procedure: well ED Medical Decision Making - Lab Data Result diagrams: 04/14/20 17:02 04/14/20 17:02 - Radiology Data Radiology results: image reviewed interpreted by me: Abdominal x-ray shows nonspecific nonobstructive bowel gas. Chest x-ray shows some pulmonary vascular congestion. No obvious pneumonia or pneumothorax. - Medical Decision Making Patient presents with some nausea and vomiting and alleged hematemesis after missing his last 2 dialysis sessions. I have not yet seen the patient have any nausea, vomiting or any witnessed hematemesis. Patient does present with elevated blood pressure. Labs show hypokalemia with a potassium of 6.5 and the renal failure consistent with his end-stage renal disease needing dialysis, of which he has missed 2 sessions. Nephrology contacted and consulted. The patient received a hyperkalemia cocktail including Kayexalate, calcium, insulin, glucose, albuterol, and he received a dose of IV antihypertensive medication. The patient will be admitted to the hospital for further evaluation and sherif tment and was accepted for admission by the hospitalist, Dr. Gaytan. Critical Care Time: Yes Critical care time in (mins) excluding proc time.: 35 Critical care attestation.: If time is entered above; I have spent that time in minutes in the direct care of this critically ill patient, excluding procedure time. Critical care time was spent on this patient in doing his initial evaluation, multiple re- evaluations, ordering and interpretation of labs and imaging, discussion with the hydraulic specialist and hospitalist, medication for the acute hyperkalemia and IV antihypertensive medications. Critical Care Time: 35 minutes ED Disposition Clinical Impression: End-stage renal disease needing dialysis, Uncontrolled hypertension, Hyperkalemia, Hypertensive urgency Disposition: 09 OP ADMIT IP TO THIS HOSP Is pt being admited?: Yes Condition: Serious Instructions: Hypertension (ED) Referrals: PRIMARY CARE, [Primary Care Provider] - 3-5 Days Forms: Accompanied Note Time of Disposition: 18:36
[2020-04-14 17:24] LABS: Basophils # (Auto) 0.1 K/mm3 (0.0-0.1); Basophils % (Auto) 1.3 % (0.0-1.8); Eosinophils # (Auto) 0.1 K/mm3 (0.0-0.4); Eosinophils % (Auto) 0.8 % (0.0-4.3); Hematocrit 30.5 % (35.5-45.6); Hemoglobin 9.8 gm/dl (11.8-15.2); Lymphocytes # (Auto) 1.1 K/mm3 (1.2-5.4); Lymphocytes % (Auto) 11.9 % (13.4-35.0); Mean Corpuscular HGB Conc 32 % (32-34); Mean Corpuscular Volume 82 fl (84-94); Monocytes # (Auto) 0.7 K/mm3 (0.0-0.8); Monocytes % (Auto) 8.1 % (0.0-7.3); Platelet Count 428 K/mm3 (140-440); Red Blood Count 3.73 M/mm3 (3.65-5.03); Red Cell Distribution Width 17.5 % (13.2-15.2)
[2020-04-14 17:33] LABS: INR 1.12 (0.87-1.13)
[2020-04-14 17:34] LABS: Partial Thromboplastin Time 38.9 Sec. (24.2-36.6)
[2020-04-14 17:47] LABS: Albumin 3.3 g/dL (3.9-5); Calcium 8.6 mg/dL (8.4-10.2)
[2020-04-14] MEDS ORDERED: hydrALAZINE 20 MG/1 ML INJ IV ONE (18:07)
[2020-04-14] MEDS ORDERED: ALBUTEROL 2.5 MG/3 ML NEBU IH ONE ×2 (18:07→20:50)
[2020-04-14] MEDS ORDERED: CALCIUM GLUCONATE 1,000 MG in SODIUM CHLORIDE 0.9% 100 ML IV ONE (18:08)
[2020-04-14] MEDS ORDERED: INSULIN REGULAR, HUMAN 100 UNITS/1 ML IV ONE (18:08)
[2020-04-14] MEDS ORDERED: DEXTROSE 50% IN WATER (25GM) 50 ML SYRINGE IV ONE (18:08)
[2020-04-14] MEDS ORDERED: SODIUM POLYSTYRENE 15 GM/60 ML ORAL LIQD PO ONE (18:08)
[2020-04-14] MEDS ORDERED: SODIUM CHLORIDE 0.9% 100 ML IV PRN (18:31)
[2020-04-14 20:05] LABS: Hepatitis C Virus Antibody Non-Reactive (NonReactive)
[2020-04-14 20:33] LABS: Hepatitis B Surface Antigen Non-Reactive (Negative)
[2020-04-14] MEDS ORDERED: NON-FORMULARY EACH (Oxycodone Hcl/Acetaminophen [Percocet 7.5/325 Mg] 1 EACH) PO PRN (23:23)
[2020-04-14] MEDS ORDERED: METOCLOPRAMIDE 10 MG TAB PO PRN ×2 (23:23→23:35)
[2020-04-14] MEDS ORDERED: ALBUTEROL SULFATE 0.63 MG IH PRN (23:23)
[2020-04-14] MEDS ORDERED: HYDROmorphone 1 MG/1 ML INJ IV PRN (23:24)
[2020-04-14] MEDS ORDERED: ONDANSETRON 4 MG/2 ML INJ IV PRN (23:24)
[2020-04-14] MEDS ORDERED: ACETAMINOPHEN 325 MG TAB PO PRN (23:24)
[2020-04-14] MEDS ORDERED: CALCIUM GLUCONATE 2,000 MG in SODIUM CHLORIDE 0.9% 100 ML IV ONE (23:26)
[2020-04-14] MEDS ORDERED: ALBUTEROL 2.5 MG/3 ML NEBU IH PRN (23:34)
[2020-04-14] MEDS ORDERED: oxyCODONE /ACETAMINOPHEN 5-325MG TAB PO PRN (23:49)
[2020-04-14] MEDS ORDERED: oxyCODONE 5 MG TAB PO PRN (23:49)
[2020-04-15] MEDS ORDERED: hydrALAZINE 20 MG/1 ML INJ IV ONE (00:10)
[2020-04-15] MEDS: carvediloL 25 MG TAB PO SCH ×3 (00:30→21:51)
[2020-04-15] MEDS: HEPARIN 5,000 UNIT/1 ML VIAL SUB-Q SCH ×3 (00:30→21:50)
[2020-04-15 04:33] LABS: Basophils # (Auto) 0.1 K/mm3 (0.0-0.1); Basophils % (Auto) 1.4 % (0.0-1.8); Eosinophils # (Auto) 0.1 K/mm3 (0.0-0.4); Eosinophils % (Auto) 1.2 % (0.0-4.3); Hematocrit 29.3 % (35.5-45.6); Hemoglobin 9.3 gm/dl (11.8-15.2); Lymphocytes # (Auto) 1.5 K/mm3 (1.2-5.4); Lymphocytes % (Auto) 17.1 % (13.4-35.0); Mean Corpuscular HGB Conc 32 % (32-34); Mean Corpuscular Volume 82 fl (84-94); Monocytes # (Auto) 0.9 K/mm3 (0.0-0.8); Monocytes % (Auto) 9.9 % (0.0-7.3); Platelet Count 404 K/mm3 (140-440); Red Blood Count 3.57 M/mm3 (3.65-5.03)
[2020-04-15 04:45] LABS: Albumin 2.9 g/dL (3.9-5); Calcium 8.5 mg/dL (8.4-10.2)
[2020-04-15] MEDS: SUCRALFATE 1 GM TAB PO SCH ×4 (08:00→21:51)
[2020-04-15] MEDS: hydrALAZINE 100 MG TAB PO SCH ×3 (08:00→21:51)
--- NOTE | 2020-04-15 08:40 | History and Physical Report ---
History of Present Illness Date of examination: 04/14/20 Date of admission: 04/14/20 18:36 Chief complaint: N/v/3 days History of present illness: 34-year-old male, who is well known to this facility, presents today with a 3- day history of nausea, vomiting and hematemesis. Patient has a past medical history of CHF, diabetes, coronary artery disease, hypertension, ulcerative esophagitis, gastroparesis and end-stage renal disease on hemodialysis on Saturday//Saturday. Usually what appears to happen is the patient will miss dialysis sessions, his blood pressure will become elevated and uncontrolled, and the patient will have nausea and vomiting and then has some hematemesis secondary to his ulcerative esophagitis. The patient was just admitted here at the end of March and discharged on 04/06/2020 for similar symptoms. The patient usually gets dialyzed at [facility] and follows with [facility] nephrology. Patient has not been taking his medications because "I have been sick." Noncompliant - Past Medical History Previous Medical History?: Yes Hx Hypertension: Yes Hx Heart Attack/AMI: Yes Hx Congestive Heart Failure: Yes Hx Diabetes: Yes Hx Asthma: Yes Additional medical history: Ulcerative esophagitis, Gastroparesis HD MWF - Surgical History Past Surgical History Hx Cholecystectomy Hx Appendectomy Additional Surgical History: right great toe removed, Right chest PERMA-CATH Social History Smoking Status: Never Smoker Substance Use Type: None FH Htn - Medications Home Medications: Home Medications Medication Instructions Recorded Confirmed Last Taken Type Dicyclomine [Bentyl] 10 mg PO QID #30 capsule 02/09/20 04/04/20 04/03/20 Rx chlorproMAZINE [Thorazine] 25 mg PO TID #20 tablet 02/09/20 04/04/20 04/03/20 Rx Sucralfate [Carafate] 1 gm PO ACHS #120 tablet 03/05/20 04/04/20 04/03/20 Rx Albuterol Sulfate [Albuterol 0.63% 0.63 mg IH Q4HR PRN #30 03/11/20 04/04/20 03/12/20 Rx NEBS] Lispro Insulin [HumaLOG] See Protocol SQ TID #10 units 03/11/20 04/04/20 04/03/20 Rx Metoclopramide [Reglan TAB] 10 mg PO ACHS PRN 30 Days #30 04/06/20 Unknown Rx tablet Oxycodone HCl/Acetaminophen 1 each PO Q6HR PRN #15 tablet 04/06/20 Unknown Rx [Percocet 7.5/325 mg] Pantoprazole [Protonix TAB] 40 mg PO BID #60 tablet 04/06/20 Unknown Rx Sucralfate [Carafate] 1 gm PO Q6HR #120 udc 04/06/20 Unknown Rx amLODIPine 10 mg PO DAILY #30 04/06/20 Unknown Rx carvediloL [Coreg] 25 mg PO BID 30 Days #60 tablet 04/06/20 Unknown Rx hydrALAZINE [Apresoline TAB] 100 mg PO Q8HR 30 Days #90 tab 04/06/20 Unknown Rx Review of Systems ROS: Stated complaint: VOMITING BLOOD X3 DAYS Other details as noted in HPI Comment: All other systems reviewed and negative Constitutional: denies: chills, fever Eyes: denies: eye pain, vision change ENT: denies: ear pain, throat pain Respiratory: denies: cough, shortness of breath Cardiovascular: denies: chest pain, palpitations Gastrointestinal: nausea, vomiting, hematemesis Genitourinary: denies: dysuria, discharge Musculoskeletal: denies: back pain, arthralgia Skin: denies: rash, lesions Neurological: denies: headache, weakness Medications and Allergies Allergies Allergy/AdvReac Type Severity Reaction Status Date / Time No Known Allergies Allergy Verified 03/09/20 19:55 Home Medications Medication Instructions Recorded Confirmed Last Taken Type Dicyclomine [Bentyl] 10 mg PO QID #30 capsule 02/09/20 04/04/20 04/03/20 Rx chlorproMAZINE [Thorazine] 25 mg PO TID #20 tablet 02/09/20 04/04/20 04/03/20 Rx Sucralfate [Carafate] 1 gm PO ACHS #120 tablet 03/05/20 04/04/20 04/03/20 Rx Albuterol Sulfate [Albuterol 0.63% 0.63 mg IH Q4HR PRN #30 03/11/20 04/04/20 03/12/20 Rx NEBS] Lispro Insulin [HumaLOG] See Protocol SQ TID #10 units 03/11/20 04/04/20 04/03/20 Rx Metoclopramide [Reglan TAB] 10 mg PO ACHS PRN 30 Days #30 04/06/20 Unknown Rx tablet Oxycodone HCl/Acetaminophen 1 each PO Q6HR PRN #15 tablet 04/06/20 Unknown Rx [Percocet 7.5/325 mg] Pantoprazole [Protonix TAB] 40 mg PO BID #60 tablet 04/06/20 Unknown Rx Sucralfate [Carafate] 1 gm PO Q6HR #120 udc 04/06/20 Unknown Rx amLODIPine 10 mg PO DAILY #30 04/06/20 Unknown Rx carvediloL [Coreg] 25 mg PO BID 30 Days #60 tablet 04/06/20 Unknown Rx hydrALAZINE [Apresoline TAB] 100 mg PO Q8HR 30 Days #90 tab 04/06/20 Unknown Rx Active Meds: Active Medications Acetaminophen (Tylenol) 650 mg PO Q4H PRN PRN Reason: Pain MILD(1-3)/Fever >100.5/LANZA Albuterol (Proventil) 2.5 mg IH Q4HRT PRN PRN Reason: Wheezing Amlodipine Besylate (Amlodipine) 10 mg PO DAILY [facility] Carvedilol (Coreg) 25 mg PO BID [facility] Last Admin: 04/15/20 00:30 Dose: 25 mg Documented by: Chlorpromazine HCl (Thorazine) 25 mg PO TID [facility] Dicyclomine HCl (Bentyl) 10 mg PO QID [facility] Heparin Sodium (Porcine) (Heparin) 5,000 unit SUB-Q Q12HR [facility] Last Admin: 04/15/20 00:30 Dose: 5,000 unit Documented by: Hydralazine HCl (Apresoline) 100 mg PO Q8HR [facility] Last Admin: 04/15/20 08:00 Dose: 100 mg Documented by: Hydromorphone HCl (Dilaudid) 0.5 mg IV Q3H PRN PRN Reason: Pain , Severe (7-10) Last Admin: 04/15/20 08:00 Dose: 0.5 mg Documented by: Sodium Chloride (Nacl 0.9%) 100 mls @ 999 mls/hr IV BRENDAN PRN PRN Reason: Hypotension Insulin Human Lispro (Humalog) 5 unit SUB-Q TIDAC [facility] Metoclopramide HCl (Reglan) 5 mg PO ACHS PRN PRN Reason: Vomiting Ondansetron HCl (Zofran) 4 mg IV Q8H PRN PRN Reason: Nausea And Vomiting Oxycodone HCl (Roxicodone) 2.5 mg PO Q6H PRN PRN Reason: Pain, Moderate (4-6) Oxycodone/Acetaminophen (Percocet 5/325) 1 tab PO Q6H PRN PRN Reason: Pain, Moderate (4-6) Pantoprazole Sodium (Protonix) 40 mg PO BID KESHIA Sodium Chloride (Sodium Chloride Flush Syringe 10 Ml) 10 ml IV BID KESHIA Sodium Chloride (Sodium Chloride Flush Syringe 10 Ml) 10 ml IV PRN PRN PRN Reason: LINE FLUSH Sucralfate (Carafate) 1 gm PO ACHS KESHIA Last Admin: 04/15/20 08:00 Dose: 1 gm Documented by: Exam - Constitutional Vitals: Temp Pulse Resp BP Pulse Ox 98.2 F 68 18 151/68 98 04/15/20 04:56 04/15/20 06:00 04/15/20 04:56 04/15/20 04:56 04/15/20 04:50 General appearance: Present: no acute distress, well-nourished - EENT Eyes: Present: PERRL ENT: hearing intact, clear oral mucosa - Neck Neck: Present: supple, normal ROM - Respiratory Respiratory effort: normal Respiratory: bilateral: CTA - Cardiovascular Heart Sounds: Present: S1 & S2. Absent: rub, click - Extremities Extremities: pulses symmetrical, No edema Peripheral Pulses: within normal limits - Abdominal General gastrointestinal: Present: soft, non-tender, non-distended, normal bowel sounds Male genitourinary: Present: normal - Integumentary Integumentary: Present: clear, warm, dry - Musculoskeletal Musculoskeletal: gait normal, strength equal bilaterally - Psychiatric Psychiatric: appropriate mood/affect, intact judgment & insight - Neurologic Neurologic: CNII-XII intact, moves all extremities Results - Labs CBC & Chem 7: 04/15/20 03:51 04/15/20 03:51 Labs: Laboratory Last Values WBC 8.6 K/mm3 (4.5-11.0) 04/15/20 03:51 RBC 3.57 M/mm3 (3.65-5.03) L 04/15/20 03:51 Hgb 9.3 gm/dl (11.8-15.2) L 04/15/20 03:51 Hct 29.3 % (35.5-45.6) L 04/15/20 03:51 MCV 82 fl (84-94) L 04/15/20 03:51 MCH 26 pg (28-32) L 04/15/20 03:51 MCHC 32 % (32-34) 04/15/20 03:51 RDW 17.0 % (13.2-15.2) H 04/15/20 03:51 Plt Count 404 K/mm3 (140-440) 04/15/20 03:51 Lymph % (Auto) 17.1 % (13.4-35.0) 04/15/20 03:51 [place] % (Auto) 9.9 % (0.0-7.3) H 04/15/20 03:51 Eos % (Auto) 1.2 % (0.0-4.3) 04/15/20 03:51 Baso % (Auto) 1.4 % (0.0-1.8) 04/15/20 03:51 Lymph # 1.5 K/mm3 (1.2-5.4) 04/15/20 03:51 [place] # 0.9 K/mm3 (0.0-0.8) H 04/15/20 03:51 Eos # 0.1 K/mm3 (0.0-0.4) 04/15/20 03:51 Baso # 0.1 K/mm3 (0.0-0.1) 04/15/20 03:51 Seg Neutrophils % 70.4 % (40.0-70.0) H 04/15/20 03:51 Seg Neutrophils # 6.1 K/mm3 (1.8-7.7) 04/15/20 03:51 PT 14.2 Sec. (12.2-14.9) 04/14/20 17:02 INR 1.12 (0.87-1.13) 04/14/20 17:02 APTT 38.9 Sec. (24.2-36.6) H 04/14/20 17:02 Sodium 138 mmol/L (137-145) 04/15/20 03:51 Potassium 5.7 mmol/L (3.6-5.0) H 04/15/20 03:51 Chloride 95.4 mmol/L (98-107) L 04/15/20 03:51 Carbon Dioxide 27 mmol/L (22-30) 04/15/20 03:51 Anion Gap 21 mmol/L 04/15/20 03:51 BUN 55 mg/dL (9-20) H 04/15/20 03:51 Creatinine 14.4 mg/dL (0.8-1.5) H 04/15/20 03:51 Estimated GFR 5 ml/min 04/15/20 03:51 BUN/Creatinine Ratio 4 % 04/15/20 03:51 Glucose 173 mg/dL (75-100) H 04/15/20 03:51 POC Glucose 192 (70-105) H 04/15/20 08:26 Calcium 8.5 mg/dL (8.4-10.2) 04/15/20 03:51 Total Bilirubin 0.30 mg/dL (0.1-1.2) 04/15/20 03:51 AST 11 units/L (5-40) 04/15/20 03:51 ALT 21 units/L (7-56) 04/15/20 03:51 Alkaline Phosphatase 111 units/L (35-129) 04/15/20 03:51 Total Protein 5.9 g/dL (6.3-8.2) L 04/15/20 03:51 Albumin 2.9 g/dL (3.9-5) L 04/15/20 03:51 Albumin/Globulin Ratio 1.0 % 04/15/20 03:51 Hepatitis A IgM Ab Non-reactive (NonReactive) 04/14/20 19:25 Hep Bs Antigen Non-reactive (Negative) 04/14/20 19:25 Hep B Core IgM Ab Non-reactive (NonReactive) 04/14/20 19:25 Hepatitis C Antibody Non-reactive (NonReactive) 04/14/20 19:25 Short CBC 04/14/20 04/15/20 Range/Units 17:02 03:51 WBC 9.1 8.6 (4.5-11.0) K/mm3 Hgb 9.8 L 9.3 L (11.8-15.2) gm/dl Hct 30.5 L 29.3 L (35.5-45.6) % Plt Count 428 404 (140-440) K/mm3 BMP 04/14/20 04/15/20 17:02 03:51 Sodium 136 L 138 Potassium 6.5 H* 5.7 H Chloride 92.1 L 95.4 L Carbon Dioxide 27 27 BUN 54 H 55 H Creatinine 14.1 H 14.4 H Glucose 197 H 173 H Calcium 8.6 8.5 Liver Function 04/14/20 04/15/20 Range/Units 17:02 03:51 Total Bilirubin 0.40 0.30 (0.1-1.2) mg/dL AST 12 11 (5-40) units/L ALT 27 21 (7-56) units/L Alkaline Phosphatase 129 111 (35-129) units/L Albumin 3.3 L 2.9 L (3.9-5) g/dL Perez/IV: Voiding Method Urinal IV Catheter Type [Left INT / Saline Lock External Jugular] Assessment and Plan Advance Directives: Yes (FC) VTE prophylaxis?: Chemical Plan of care discussed with patient/family: Yes - Patient Problems (1) Hypertensive urgency Current Visit: Yes Status: Acute Plan to address problem: BP 190/104 Noncompliant BP meds restarted (2) Hyperkalemia Current Visit: Yes Status: Acute Plan to address problem: Treated (3) End-stage renal disease needing dialysis Current Visit: Yes Status: Chronic Plan to address problem: Nephrology consulted (4) Acute gastritis Current Visit: Yes Status: Acute Qualifiers: Gastritis type: unspecified gastritis Gastritis bleeding: presence of b leeding unspecified Qualified Code(s): K29.00 - Acute gastritis without b leeding Plan to address problem: IV Protonix (5) IDDM (insulin dependent diabetes mellitus) Current Visit: No Status: Chronic Plan to address problem: COnt home insulin and coverage (6) DVT prophylaxis Current Visit: No Status: Acute Plan to address problem: On scd's and GI prophylaxis
[2020-04-15] MEDS: chlorproMAZINE 25 MG TAB PO SCH ×3 (09:30→21:50)
[2020-04-15] MEDS: INSULIN LISPRO 100 UNIT/ML SUB-Q SCH ×3 (09:30→16:28)
[2020-04-15] MEDS: DICYCLOMINE 10 MG CAP PO SCH ×4 (10:00→21:50)
[2020-04-15] MEDS ORDERED: FAMOTIDINE 10 MG TAB PO SCH (10:00)
[2020-04-15] MEDS: amLODIPine 10 MG TAB PO SCH (12:20)
[2020-04-15] MEDS ORDERED: SODIUM CHLORIDE 0.9% 100 ML IV PRN (12:27)
--- NOTE | 2020-04-15 12:27 | Consultation ---
History of Present Illness - Reason for Consult Consult date: 04/15/20 end stage renal disease Requesting physician: BRENDA MORFIN - History of Present Illness 34-year-old male presented to the emergency room last night with a 3-day history of nausea, vomiting and hematemesis. Patient has a past medical history of CHF, diabetes, coronary artery disease, hypertension, ulcerative esophagitis, gastroparesis and end-stage renal disease on hemodialysis on Saturday//Saturday. Usually what appears to happen is the patient will miss dialysis sessions, his blood pressure will become elevated and uncontrolled, and the patient will have nausea and vomiting and then has some hematemesis secondary to his ulcerative esophagitis. The patient was just admitted here at the end of March and discharged on 04/06/2020 for similar symptoms. Patient states that he missed his last 2 dialysis sessions. Patient has not been taking his medications because "I have been sick." He undergoes dialysis on TTS schedule at [facility] Past History Past Medical History: CAD, diabetes, dialysis, hypertension Past Surgical History: Other (History of PermCath placement) Social history: no significant social history Family history: no significant family history Medications and Allergies Allergies Allergy/AdvReac Type Severity Reaction Status Date / Time No Known Allergies Allergy Verified 03/09/20 19:55 Home Medications Medication Instructions Recorded Confirmed Last Taken Type Dicyclomine [Bentyl] 10 mg PO QID #30 capsule 02/09/20 04/04/20 04/03/20 Rx chlorproMAZINE [Thorazine] 25 mg PO TID #20 tablet 02/09/20 04/04/20 04/03/20 Rx Sucralfate [Carafate] 1 gm PO ACHS #120 tablet 03/05/20 04/04/20 04/03/20 Rx Albuterol Sulfate [Albuterol 0.63% 0.63 mg IH Q4HR PRN #30 03/11/20 04/04/20 03/12/20 Rx NEBS] Lispro Insulin [HumaLOG] See Protocol SQ TID #10 units 03/11/20 04/04/20 04/03/20 Rx Metoclopramide [Reglan TAB] 10 mg PO ACHS PRN 30 Days #30 04/06/20 Unknown Rx tablet Oxycodone HCl/Acetaminophen 1 each PO Q6HR PRN #15 tablet 04/06/20 Unknown Rx [Percocet 7.5/325 mg] Pantoprazole [Protonix TAB] 40 mg PO BID #60 tablet 04/06/20 Unknown Rx Sucralfate [Carafate] 1 gm PO Q6HR #120 udc 04/06/20 Unknown Rx amLODIPine 10 mg PO DAILY #30 04/06/20 Unknown Rx carvediloL [Coreg] 25 mg PO BID 30 Days #60 tablet 04/06/20 Unknown Rx hydrALAZINE [Apresoline TAB] 100 mg PO Q8HR 30 Days #90 tab 04/06/20 Unknown Rx Active Meds: Active Medications Acetaminophen (Tylenol) 650 mg PO Q4H PRN PRN Reason: Pain MILD(1-3)/Fever >100.5/LANZA Albuterol (Proventil) 2.5 mg IH Q4HRT PRN PRN Reason: Wheezing Amlodipine Besylate (Amlodipine) 10 mg PO DAILY [facility] Last Admin: 04/15/20 12:20 Dose: 10 mg Documented by: Carvedilol (Coreg) 25 mg PO BID [facility] Last Admin: 04/15/20 00:30 Dose: 25 mg Documented by: Chlorpromazine HCl (Thorazine) 25 mg PO TID [facility] Last Admin: 04/15/20 09:30 Dose: Not Given Documented by: Dicyclomine HCl (Bentyl) 10 mg PO QID [facility] Heparin Sodium (Porcine) (Heparin) 5,000 unit SUB-Q Q12HR [facility] Last Admin: 04/15/20 00:30 Dose: 5,000 unit Documented by: Hydralazine HCl (Apresoline) 100 mg PO Q8HR [facility] Last Admin: 04/15/20 08:00 Dose: 100 mg Documented by: Hydromorphone HCl (Dilaudid) 0.5 mg IV Q3H PRN PRN Reason: Pain , Severe (7-10) Last Admin: 04/15/20 08:00 Dose: 0.5 mg Documented by: Sodium Chloride (Nacl 0.9%) 100 mls @ 999 mls/hr IV BRENDAN PRN PRN Reason: Hypotension Insulin Human Lispro (Humalog) 5 unit SUB-Q TIDAC [facility] Last Admin: 04/15/20 09:30 Dose: Not Given Documented by: Metoclopramide HCl (Reglan) 5 mg PO ACHS PRN PRN Reason: Vomiting Ondansetron HCl (Zofran) 4 mg IV Q8H PRN PRN Reason: Nausea And Vomiting Oxycodone HCl (Roxicodone) 2.5 mg PO Q6H PRN PRN Reason: Pain, Moderate (4-6) Oxycodone/Acetaminophen (Percocet 5/325) 1 tab PO Q6H PRN PRN Reason: Pain, Moderate (4-6) Pantoprazole Sodium (Protonix) 40 mg PO BID KESHIA Sodium Chloride (Sodium Chloride Flush Syringe 10 Ml) 10 ml IV BID KESHIA Sodium Chloride (Sodium Chloride Flush Syringe 10 Ml) 10 ml IV PRN PRN PRN Reason: LINE FLUSH Sucralfate (Carafate) 1 gm PO ACHS KESHIA Last Admin: 04/15/20 08:00 Dose: 1 gm Documented by: Review of Systems All systems: negative (Negative except as noted above) Exam - Vital Signs Vital signs: Vital Signs Resp 15 04/14/20 16:46 - General Appearance General appearance: well-developed, well-nourished, appears stated age EENT: ATNC, PERRL Neck: Present: neck supple, trachea midline, Other (Right IJ PermCath in place). Absent: JVD/HJR, Masses Respiratory: Clear to Ascultation Heart: regular, normal heart rate Gastrointestinal: Present: normal, normoactive bowel sounds Integumentary: other (No edema) Results - Lab Results 04/15/20 03:51 04/15/20 03:51 Most recent lab results Calcium 8.5 mg/dL (8.4-10.2) 04/15/20 03:51 Assessment and Plan Impression * End-stage renal disease on maintenance hemodialysis * Hyperkalemia * Nausea and vomiting. Possibly due to uremia * Hypertension * Diabetes * Noncompliance * Coronary artery disease * Anemia Recommendations * Patient is currently undergoing hemodialysis. Tolerating well. * Hopefully his hyperkalemia will be corrected. * Schedule patient for hemodialysis again tomorrow and keep him on TTS schedule as outpatient * Adjust diet and meds for ESRD state * Hold phosphate binders for now because of his GI symptoms * Epogen with dialysis * Avoid nephrotoxins * Patient advised regarding compliance with dialysis treatments * Thank you very much for the consultation. Shall follow along with you
[2020-04-15] MEDS: PANTOPRAZOLE 40 MG TAB PO SCH ×2 (16:26→21:51)
[2020-04-16] MEDS: hydrALAZINE 100 MG TAB PO SCH ×3 (05:40→21:01)
[2020-04-16] MEDS: SUCRALFATE 1 GM TAB PO SCH ×4 (07:44→21:01)
[2020-04-16] MEDS: INSULIN LISPRO 100 UNIT/ML SUB-Q SCH ×3 (07:44→17:03)
[2020-04-16] MEDS: chlorproMAZINE 25 MG TAB PO SCH ×3 (08:55→21:01)
[2020-04-16] MEDS: HEPARIN 5,000 UNIT/1 ML VIAL SUB-Q SCH ×2 (10:00→21:05)
[2020-04-16] MEDS: DICYCLOMINE 10 MG CAP PO SCH ×4 (10:00→21:04)
[2020-04-16] MEDS ORDERED: SODIUM CHLORIDE 0.9% 1000 ML 2,000 ML ONE (11:01)
--- NOTE | 2020-04-16 11:23 | Progress Note ---
Assessment and Plan Impression * End-stage renal disease on maintenance hemodialysis * Hyperkalemia * Nausea and vomiting. Possibly due to uremia * Hypertension * Diabetes * Noncompliance * Coronary artery disease * Anemia Recommendations * Patient is being initiated on hemodialysis. * Serum potassium was 5.7 yesterday morning. Hopefully will be corrected with dialysis. * Continue dialysis on TTS schedule as outpatient. * Adjust diet and meds for ESRD state * Hold phosphate binders for now because of his GI symptoms * Epogen with dialysis * Avoid nephrotoxins * Patient advised regarding compliance with dialysis treatments Subjective Date of service: 04/16/20 Interval history: Patient seen in the dialysis room. Hemodialysis being initiated. He is comfortable. Denies any shortness of breath. Abdominal pain is also much better. No more nausea or vomiting. Objective - Vital Signs Vital signs: Vital Signs - 12hr 04/16/20 04/16/20 04/16/20 04:12 04:41 07:32 Temperature 97.6 F 98.9 F 98.2 F Pulse Rate 43 L 73 Respiratory 16 18 18 Rate Blood Pressure 104/51 132/74 137/76 O2 Sat by Pulse 90 95 Oximetry O2 Sat by Pulse Oximetry [ Bilateral Throughout] 04/16/20 04/16/20 04/16/20 10:10 10:20 10:30 Temperature 98.3 F Pulse Rate 82 83 80 Respiratory 18 Rate Blood Pressure 169/91 157/96 179/96 O2 Sat by Pulse Oximetry O2 Sat by Pulse 99 Oximetry [ Bilateral Throughout] 04/16/20 04/16/20 04/16/20 10:46 11:00 11:15 Temperature Pulse Rate 87 77 77 Respiratory Rate Blood Pressure 174/97 168/90 176/91 O2 Sat by Pulse Oximetry O2 Sat by Pulse Oximetry [ Bilateral Throughout] - General Appearance General appearance: well-developed, well-nourished, appears stated age EENT: PERRL, mucous membranes moist Neck: no JVD, no thyromegaly, no carotid bruit, supple, other (IJ PermCath in place) Respiratory: Present: Clear to Ascultation Cardiology: regular, normal heart rate, S1S2, no murmurs Gastrointestinal: normal, normoactive bowel sounds Integumentary: no rash, other (AV fistula in his right upper arm. Good bruit and thrill.) - Lab 04/15/20 03:51 04/15/20 03:51 Most recent lab results Calcium 8.5 mg/dL (8.4-10.2) 04/15/20 03:51 Medications & Allergies - Medications Allergies/Adverse Reactions: Allergies No Known Allergies Allergy (Verified 03/09/20 19:55) Home Medications: Home Medications Medication Instructions Recorded Confirmed Last Taken Type Dicyclomine [Bentyl] 10 mg PO QID #30 capsule 02/09/20 04/16/20 2 Days Ago Rx ~04/14/20 chlorproMAZINE [Thorazine] 25 mg PO TID #20 tablet 02/09/20 04/16/20 2 Days Ago Rx ~04/14/20 Sucralfate [Carafate] 1 gm PO ACHS #120 tablet 03/05/20 04/16/20 2 Days Ago Rx ~04/14/20 Albuterol Sulfate [Albuterol 0.63% 0.63 mg IH Q4HR PRN #30 03/11/20 04/16/20 2 Days Ago Rx NEBS] ~04/14/20 Lispro Insulin [HumaLOG] See Protocol SQ TID #10 units 03/11/20 04/16/20 2 Days Ago Rx ~04/14/20 Metoclopramide [Reglan TAB] 10 mg PO ACHS PRN 30 Days #30 04/06/20 04/16/20 2 Days Ago Rx tablet ~04/14/20 Oxycodone HCl/Acetaminophen 1 each PO Q6HR PRN #15 tablet 04/06/20 04/16/20 2 Days Ago Rx [Percocet 7.5/325 mg] ~04/14/20 Pantoprazole [Protonix TAB] 40 mg PO BID #60 tablet 04/06/20 04/16/20 2 Days Ago Rx ~04/14/20 Sucralfate [Carafate] 1 gm PO Q6HR #120 udc 04/06/20 04/16/20 2 Days Ago Rx ~04/14/20 amLODIPine 10 mg PO DAILY #30 04/06/20 04/16/20 2 Days Ago Rx ~04/14/20 carvediloL [Coreg] 25 mg PO BID 30 Days #60 tablet 04/06/20 04/16/20 2 Days Ago Rx ~04/14/20 hydrALAZINE [Apresoline TAB] 100 mg PO Q8HR 30 Days #90 tab 04/06/20 04/16/20 2 Days Ago Rx ~04/14/20 Active Medications: Generic Name Dose Route Start Last Admin Trade Name Freq PRN Reason Stop Dose Admin Acetaminophen 650 mg 04/14/20 23:24 Tylenol PO Q4H PRN Pain MILD(1-3)/Fever >100.5/LANZA Albuterol 2.5 mg 04/14/20 23:34 Proventil IH Q4HRT PRN Wheezing Amlodipine Besylate 10 mg 04/15/20 10:00 04/15/20 12:20 Amlodipine PO 10 mg DAILY KESHIA Administration Carvedilol 25 mg 04/14/20 23:45 04/15/20 21:51 Coreg PO 25 mg BID KESHIA Administration Chlorpromazine HCl 25 mg 04/15/20 08:00 04/15/20 21:50 Thorazine PO 25 mg TID KESHIA Administration Dicyclomine HCl 10 mg 04/15/20 10:00 04/15/20 21:50 Bentyl PO 10 mg QID KESHIA Administration Heparin Sodium (Porcine) 5,000 unit 04/14/20 23:30 04/15/20 21:50 Heparin SUB-Q 5,000 unit Q12HR KESHIA Administration Hydralazine HCl 100 mg 04/15/20 06:00 04/16/20 05:40 Apresoline PO 100 mg Q8HR KESHIA Administration Hydromorphone HCl 0.5 mg 04/14/20 23:24 04/15/20 08:00 Dilaudid IV 0.5 mg Q3H PRN Administration Pain , Severe (7-10) Sodium Chloride 100 mls @ 999 mls/hr 04/15/20 12:27 Nacl 0.9% IV BRENDAN PRN Hypotension Insulin Human Lispro 5 unit 04/15/20 07:30 04/16/20 07:44 Humalog SUB-Q 5 unit TIDAC KESHIA Administration Metoclopramide HCl 5 mg 04/14/20 23:35 Reglan PO ACHS PRN Vomiting Ondansetron HCl 4 mg 04/14/20 23:24 Zofran IV Q8H PRN Nausea And Vomiting Oxycodone HCl 2.5 mg 04/14/20 23:49 Roxicodone PO Q6H PRN Pain, Moderate (4-6) Oxycodone/Acetaminophen 1 tab 04/14/20 23:49 Percocet 5/325 PO Q6H PRN Pain, Moderate (4-6) Pantoprazole Sodium 40 mg 04/15/20 10:00 04/15/20 21:51 Protonix PO 40 mg BID KESHIA Administration Sodium Chloride 10 ml 04/15/20 10:00 04/15/20 21:51 Sodium Chloride Flush Syringe 10 Ml IV 10 ml BID KESHIA Administration Sodium Chloride 10 ml 04/14/20 23:24 Sodium Chloride Flush Syringe 10 Ml IV PRN PRN LINE FLUSH Sucralfate 1 gm 04/15/20 07:30 04/16/20 07:44 Carafate PO 1 gm ACHS KESHIA Administration
[2020-04-16] MEDS: carvediloL 25 MG TAB PO SCH ×2 (14:54→21:01)
[2020-04-16] MEDS: PANTOPRAZOLE 40 MG TAB PO SCH ×2 (14:55→21:01)
[2020-04-16] MEDS: amLODIPine 10 MG TAB PO SCH (14:55)
[2020-04-16 17:29] LABS: Calcium 8.1 mg/dL (8.4-10.2)
--- NOTE | 2020-04-16 22:43 | Progress Note ---
Assessment and Plan Day #2 Still nauseous and vomiting - Patient Problems (1) Hypertensive urgency Current Visit: Yes Status: Acute Plan to address problem: BP 190/104 Noncompliant BP meds restarted (2) Hyperkalemia Current Visit: Yes Status: Acute Plan to address problem: Treated Potassium level still high For hemodialysis tomorrow (3) End-stage renal disease needing dialysis Current Visit: Yes Status: Chronic Plan to address problem: Nephrology consulted (4) Acute gastritis Current Visit: Yes Status: Acute Qualifiers: Gastritis type: unspecified gastritis Gastritis bleeding: presence of bleeding unspecified Qualified Code(s): K29.00 - Acute gastritis without bleeding Plan to address problem: IV Protonix (5) IDDM (insulin dependent diabetes mellitus) Current Visit: No Status: Chronic Plan to address problem: COnt home insulin and coverage (6) DVT prophylaxis Current Visit: No Status: Acute Plan to address problem: On scd's and GI prophylaxis Subjective Date of service: 04/15/20 Principal diagnosis: Hypertensive emergency, hyperkalemia, end-stage renal disease Interval history: 34-year-old male, who is well known to this facility, presents today with a 3- day history of nausea, vomiting and hematemesis. Patient has a past medical history of CHF, diabetes, coronary artery disease, hypertension, ulcerative esophagitis, gastroparesis and end-stage renal disease on hemodialysis on Saturday//Saturday. Usually what appears to happen is the patient will miss dialysis sessions, his blood pressure will become elevated and uncontrolled, and the patient will have nausea and vomiting and then has some hematemesis secondary to his ulcerative esophagitis. The patient was just admitted here at the end of March and discharged on 04/06/2020 for similar symptoms. The patient usually gets dialyzed at [facility] and follows with [facility] nephrology. Patient has not been taking his medications because "I have been sick." Noncompliant Patient still nauseous and vomiting. Objective - Constitutional Vitals: Vital Signs - 12hr 04/16/20 04/16/20 04/16/20 10:46 11:00 11:15 Temperature Pulse Rate 87 77 77 Respiratory Rate Blood Pressure 174/97 168/90 176/91 O2 Sat by Pulse Oximetry 04/16/20 04/16/20 04/16/20 11:30 11:45 12:00 Temperature Pulse Rate 78 78 76 Respiratory Rate Blood Pressure 181/99 176/102 176/94 O2 Sat by Pulse Oximetry 04/16/20 04/16/20 04/16/20 12:15 12:30 12:45 Temperature Pulse Rate 76 77 83 Respiratory Rate Blood Pressure 185/103 178/95 185/102 O2 Sat by Pulse Oximetry 04/16/20 04/16/20 04/16/20 13:00 13:15 13:30 Temperature Pulse Rate 78 78 81 Respiratory Rate Blood Pressure 171/86 183/90 185/100 O2 Sat by Pulse Oximetry 04/16/20 04/16/20 04/16/20 13:45 13:50 14:01 Temperature 98 F Pulse Rate 78 80 81 Respiratory 18 Rate Blood Pressure 185/102 185/95 193/93 O2 Sat by Pulse Oximetry 04/16/20 04/16/20 04/16/20 16:16 19:33 21:01 Temperature 98.3 F 98.6 F Pulse Rate 80 80 Respiratory 18 20 Rate Blood Pressure 181/91 167/95 169/95 O2 Sat by Pulse 99 Oximetry General appearance: Present: no acute distress, well-nourished - EENT Eyes: PERRL, EOM intact ENT: hearing intact, clear oral mucosa Ears: bilateral: normal - Neck Neck: supple, normal ROM - Respiratory Respiratory effort: normal Respiratory: bilateral: CTA - Breasts Breasts: normal - Cardiovascular Heart rate: 78 Rhythm: regular Heart Sounds: Present: S1 & S2. Absent: gallop, rub Extremities: pulses intact, No edema, normal color, Full ROM - Gastrointestinal General gastrointestinal: Present: soft, non-tender, non-distended, normal bowel sounds - Genitourinary Male genitourinary: normal - Integumentary Integumentary: clear, warm, dry - Musculoskeletal Musculoskeletal: 1, strength equal bilaterally - Neurologic Neurologic: moves all extremities - Psychiatric Psychiatric: memory intact, appropriate mood/affect, intact judgment & insight - Allied health notes Allied health notes reviewed: nursing, case management - Labs CBC & Chem 7: 04/15/20 03:51 04/16/20 16:53 Labs: Abnormal lab results 04/16/20 04/16/20 04/16/20 Range/Units 07:44 16:25 16:53 Sodium 135 L (137-145) mmol/L Chloride 95.9 L (98-107) mmol/L Creatinine 5.8 H D (0.8-1.5) mg/dL Glucose 263 H (75-100) mg/dL POC Glucose 190 H 248 H (70-105) Calcium 8.1 L (8.4-10.2) mg/dL 04/16/20 Range/Units 21:15 Sodium (137-145) mmol/L Chloride (98-107) mmol/L Creatinine (0.8-1.5) mg/dL Glucose (75-100) mg/dL POC Glucose 173 H (70-105) Calcium (8.4-10.2) mg/dL
--- NOTE | 2020-04-16 22:47 | Progress Note ---
Assessment and Plan Day #2 Still nauseous and vomiting Day #3 Nausea and vomiting improved Patient feels very weak - Patient Problems (1) Hypertensive urgency Current Visit: Yes Status: Acute Plan to address problem: BP 190/104 Noncompliant BP meds restarted Blood pressure better controlled (2) Hyperkalemia Current Visit: Yes Status: Acute Plan to address problem: Treated Potassium level still high For hemodialysis Potassium back to normal level (3) End-stage renal disease needing dialysis Current Visit: Yes Status: Chronic Plan to address problem: Nephrology consulted (4) Acute gastritis Current Visit: Yes Status: Acute Qualifiers: Gastritis type: unspecified gastritis Gastritis bleeding: presence of bleeding unspecified Qualified Code(s): K29.00 - Acute gastritis without bleeding Plan to address problem: IV Protonix (5) IDDM (insulin dependent diabetes mellitus) Current Visit: No Status: Chronic Plan to address problem: COnt home insulin and coverage (6) DVT prophylaxis Current Visit: No Status: Acute Plan to address problem: On scd's and GI prophylaxis Subjective Date of service: 04/16/20 Principal diagnosis: Hypertensive emergency, hyperkalemia, end-stage renal disease Interval history: 34-year-old male, who is well known to this facility, presents today with a 3-d ay history of nausea, vomiting and hematemesis. Patient has a past medical history of CHF, diabetes, coronary artery disease, hypertension, ulcerative esophagitis, gastroparesis and end-stage renal disease on hemodialysis on Saturday//Saturday. Usually what appears to happen is the patient will miss dialysis sessions, his blood pressure will become elevated and uncontrolled, and the patient will have nausea and vomiting and then has some hematemesis secondary to his ulcerative esophagitis. The patient was just admitted here at the end of March and discharged on 04/06/2020 for similar sy mptoms. The patient usually gets dialyzed at [facility] and follows with [facility] nephrology. Patient has not been taking his medications because "I have been sick." Noncompliant Patient still nauseous and vomiting. Objective - Constitutional Vitals: Vital Signs - 12hr 04/16/20 04/16/20 04/16/20 10:46 11:00 11:15 Temperature Pulse Rate 87 77 77 Respiratory Rate Blood Pressure 174/97 168/90 176/91 O2 Sat by Pulse Oximetry 04/16/20 04/16/20 04/16/20 11:30 11:45 12:00 Temperature Pulse Rate 78 78 76 Respiratory Rate Blood Pressure 181/99 176/102 176/94 O2 Sat by Pulse Oximetry 04/16/20 04/16/20 04/16/20 12:15 12:30 12:45 Temperature Pulse Rate 76 77 83 Respiratory Rate Blood Pressure 185/103 178/95 185/102 O2 Sat by Pulse Oximetry 04/16/20 04/16/20 04/16/20 13:00 13:15 13:30 Temperature Pulse Rate 78 78 81 Respiratory Rate Blood Pressure 171/86 183/90 185/100 O2 Sat by Pulse Oximetry 04/16/20 04/16/20 04/16/20 13:45 13:50 14:01 Temperature 98 F Pulse Rate 78 80 81 Respiratory 18 Rate Blood Pressure 185/102 185/95 193/93 O2 Sat by Pulse Oximetry 04/16/20 04/16/20 04/16/20 16:16 19:33 21:01 Temperature 98.3 F 98.6 F Pulse Rate 80 80 Respiratory 18 20 Rate Blood Pressure 181/91 167/95 169/95 O2 Sat by Pulse 99 Oximetry General appearance: Present: no acute distress, well-nourished - EENT Eyes: PERRL, EOM intact ENT: hearing intact, clear oral mucosa Ears: bilateral: normal - Neck Neck: supple, normal ROM - Respiratory Respiratory effort: normal Respiratory: bilateral: CTA - Breasts Breasts: normal - Cardiovascular Heart rate: 80 Rhythm: regular Heart Sounds: Present: S1 & S2. Absent: gallop, rub Extremities: pulses intact, No edema, normal color, Full ROM - Gastrointestinal General gastrointestinal: Present: soft, non-tender, non-distended, normal bowel sounds - Genitourinary Male genitourinary: normal - Integumentary Integumentary: clear, warm, dry - Musculoskeletal Musculoskeletal: 1, strength equal bilaterally - Neurologic Neurologic: moves all extremities - Psychiatric Psychiatric: memory intact, appropriate mood/affect, intact judgment & insight - Allied health notes Allied health notes reviewed: nursing, case management - Labs CBC & Chem 7: 04/15/20 03:51 04/16/20 16:53 Labs: Abnormal lab results 04/16/20 04/16/20 04/16/20 Range/Units 07:44 16:25 16:53 Sodium 135 L (137-145) mmol/L Chloride 95.9 L (98-107) mmol/L Creatinine 5.8 H D (0.8-1.5) mg/dL Glucose 263 H (75-100) mg/dL POC Glucose 190 H 248 H (70-105) Calcium 8.1 L (8.4-10.2) mg/dL 04/16/20 Range/Units 21:15 Sodium (137-145) mmol/L Chloride (98-107) mmol/L Creatinine (0.8-1.5) mg/dL Glucose (75-100) mg/dL POC Glucose 173 H (70-105) Calcium (8.4-10.2) mg/dL
[2020-04-17 04:49] VITALS: BP 157/94
[2020-04-17] MEDS: hydrALAZINE 100 MG TAB PO SCH ×2 (05:56→14:05)
[2020-04-17] MEDS: SUCRALFATE 1 GM TAB PO SCH ×3 (08:12→17:04)
[2020-04-17] MEDS: INSULIN LISPRO 100 UNIT/ML SUB-Q SCH ×3 (08:12→17:04)
[2020-04-17] MEDS: chlorproMAZINE 25 MG TAB PO SCH ×2 (08:12→14:05)
[2020-04-17 08:14] LABS: Calcium 8.2 mg/dL (8.4-10.2)
[2020-04-17] MEDS: HEPARIN 5,000 UNIT/1 ML VIAL SUB-Q SCH (10:18)
[2020-04-17] MEDS: DICYCLOMINE 10 MG CAP PO SCH ×3 (10:18→17:04)
[2020-04-17] MEDS: carvediloL 25 MG TAB PO SCH (10:18)
[2020-04-17] MEDS: PANTOPRAZOLE 40 MG TAB PO SCH (10:18)
[2020-04-17] MEDS: amLODIPine 10 MG TAB PO SCH (10:18)
--- NOTE | 2020-04-17 12:02 | Progress Note ---
Assessment and Plan Impression * End-stage renal disease on maintenance hemodialysis * Hyperkalemia * Nausea and vomiting. Possibly due to uremia * Hypertension * Diabetes * Noncompliance * Coronary artery disease * Anemia Recommendations * Patient had uneventful hemodialysis yesterday. * Hyperkalemia has been corrected . * Continue dialysis on TTS schedule as outpatient. * Adjust diet and meds for ESRD state * Hold phosphate binders for now because of his GI symptoms * Epogen with dialysis * Avoid nephrotoxins * Patient advised regarding compliance with dialysis treatments Subjective Date of service: 04/17/20 Principal diagnosis: Hypertensive emergency, hyperkalemia, end-stage renal disease Interval history: Patient is comfortable today. Denies any shortness of breath. No nausea or vomiting. Uneventful hemodialysis yesterday. Objective - Vital Signs Vital signs: Vital Signs - 12hr 04/17/20 04:47 Temperature 98.3 F Pulse Rate 78 Respiratory 150 H Rate Blood Pressure 157/94 O2 Sat by Pulse 97 Oximetry - General Appearance General appearance: well-developed, well-nourished, appears stated age EENT: PERRL, mucous membranes moist Neck: no JVD, no thyromegaly, no carotid bruit, supple, other (Right IJ PermCath in place) Respiratory: Present: Clear to Ascultation Cardiology: regular, normal heart rate, S1S2, no murmurs Gastrointestinal: normal, normoactive bowel sounds Integumentary: no rash, other (No edema) - Lab 04/15/20 03:51 04/17/20 07:18 Most recent lab results Calcium 8.2 mg/dL (8.4-10.2) L 04/17/20 07:18 Medications & Allergies - Medications Allergies/Adverse Reactions: Allergies No Known Allergies Allergy (Verified 03/09/20 19:55) Home Medications: Home Medications Medication Instructions Recorded Confirmed Last Taken Type Dicyclomine [Bentyl] 10 mg PO QID #30 capsule 02/09/20 04/16/20 2 Days Ago Rx ~04/14/20 chlorproMAZINE [Thorazine] 25 mg PO TID #20 tablet 02/09/20 04/16/20 2 Days Ago Rx ~04/14/20 Sucralfate [Carafate] 1 gm PO ACHS #120 tablet 03/05/20 04/16/20 2 Days Ago Rx ~04/14/20 Albuterol Sulfate [Albuterol 0.63% 0.63 mg IH Q4HR PRN #30 03/11/20 04/16/20 2 Days Ago Rx NEBS] ~04/14/20 Lispro Insulin [HumaLOG] See Protocol SQ TID #10 units 03/11/20 04/16/20 2 Days Ago Rx ~04/14/20 Metoclopramide [Reglan TAB] 10 mg PO ACHS PRN 30 Days #30 04/06/20 04/16/20 2 Days Ago Rx tablet ~04/14/20 Oxycodone HCl/Acetaminophen 1 each PO Q6HR PRN #15 tablet 04/06/20 04/16/20 2 Days Ago Rx [Percocet 7.5/325 mg] ~04/14/20 Pantoprazole [Protonix TAB] 40 mg PO BID #60 tablet 04/06/20 04/16/20 2 Days Ago Rx ~04/14/20 Sucralfate [Carafate] 1 gm PO Q6HR #120 udc 04/06/20 04/16/20 2 Days Ago Rx ~04/14/20 amLODIPine 10 mg PO DAILY #30 04/06/20 04/16/20 2 Days Ago Rx ~04/14/20 carvediloL [Coreg] 25 mg PO BID 30 Days #60 tablet 04/06/20 04/16/20 2 Days Ago Rx ~04/14/20 hydrALAZINE [Apresoline TAB] 100 mg PO Q8HR 30 Days #90 tab 04/06/20 04/16/20 2 Days Ago Rx ~04/14/20 Active Medications: Generic Name Dose Route Start Last Admin Trade Name Freq PRN Reason Stop Dose Admin Acetaminophen 650 mg 04/14/20 23:24 Tylenol PO Q4H PRN Pain MILD(1-3)/Fever >100.5/LANZA Albuterol 2.5 mg 04/14/20 23:34 Proventil IH Q4HRT PRN Wheezing Amlodipine Besylate 10 mg 04/15/20 10:00 04/17/20 10:18 Amlodipine PO 10 mg DAILY KESHIA Administration Carvedilol 25 mg 04/14/20 23:45 04/17/20 10:18 Coreg PO 25 mg BID KESHIA Administration Chlorpromazine HCl 25 mg 04/15/20 08:00 04/17/20 08:12 Thorazine PO 25 mg TID KESHIA Administration Dicyclomine HCl 10 mg 04/15/20 10:00 04/17/20 10:18 Bentyl PO 10 mg QID KESHIA Administration Heparin Sodium (Porcine) 5,000 unit 04/14/20 23:30 04/17/20 10:18 Heparin SUB-Q 5,000 unit Q12HR KESHIA Administration Hydralazine HCl 100 mg 04/15/20 06:00 04/17/20 05:56 Apresoline PO 100 mg Q8HR KESHIA Administration Hydromorphone HCl 0.5 mg 04/14/20 23:24 04/15/20 08:00 Dilaudid IV 0.5 mg Q3H PRN Administration Pain , Severe (7-10) Sodium Chloride 100 mls @ 999 mls/hr 04/15/20 12:27 Nacl 0.9% IV BRENDAN PRN Hypotension Insulin Human Lispro 5 unit 04/15/20 07:30 04/17/20 08:12 Humalog SUB-Q 5 unit TIDAC KESHIA Administration Metoclopramide HCl 5 mg 04/14/20 23:35 Reglan PO ACHS PRN Vomiting Ondansetron HCl 4 mg 04/14/20 23:24 Zofran IV Q8H PRN Nausea And Vomiting Oxycodone HCl 2.5 mg 04/14/20 23:49 Roxicodone PO Q6H PRN Pain, Moderate (4-6) Oxycodone/Acetaminophen 1 tab 04/14/20 23:49 Percocet 5/325 PO Q6H PRN Pain, Moderate (4-6) Pantoprazole Sodium 40 mg 04/15/20 10:00 04/17/20 10:18 Protonix PO 40 mg BID KESHIA Administration Sodium Chloride 10 ml 04/15/20 10:00 04/17/20 10:18 Sodium Chloride Flush Syringe 10 Ml IV 10 ml BID KESHIA Administration Sodium Chloride 10 ml 04/14/20 23:24 Sodium Chloride Flush Syringe 10 Ml IV PRN PRN LINE FLUSH Sucralfate 1 gm 04/15/20 07:30 04/17/20 08:12 Carafate PO 1 gm ACHS KESHIA Administration
--- NOTE | 2020-04-17 18:01 | Discharge Summary ---
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 Patient has a past medical history of CHF, diabetes, coronary artery disease, hypertension, ulcerative esophagitis, gastroparesis and end-stage renal disease on hemodialysis on Saturday//Saturday. Usually what appears to happen is the patient will miss dialysis sessions, his blood pressure will become elevated and uncontrolled, and the patient will have nausea and vomiting and then has some hematemesis secondary to his ulcerative esophagitis. The patient was just admitted here at the end of March and discharged on 04/06/2020 for similar symptoms. The patient usually gets dialyzed at [facility] and follows with [facility] nephrology. Patient has not been taking his medications because "I have been sick." Noncompliant Patient still nauseous and vomiting. Day #2 Still nauseous and vomiting Day #3 Nausea and vomiting improved Patient feels very weak Day #4 the day of discharge-- Patient feels much better Patient counseled about compliance - Patient Problems (1) Hypertensive urgency Current Visit: Yes Status: Acute Plan to address problem: BP 190/104--improved to 130/80 Noncompliant BP meds restarted Blood pressure better controlled Patient counseled about compliance (2) Hyperkalemia Current Visit: Yes Status: Acute Plan to address problem: Treated Potassium level still high For hemodialysis Potassium back to normal level (3) End-stage renal disease needing dialysis Current Visit: Yes Status: Chronic Plan to address problem: Nephrology consulted Patient counseled about compliance (4) Acute gastritis Current Visit: Yes Status: Acute Qualifiers: Gastritis type: unspecified gastritis Gastritis bleeding: presence of bleeding unspecified Qualified Code(s): K29.00 - Acute gastritis without bleeding Plan to address problem: IV Protonix (5) IDDM (insulin dependent diabetes mellitus) Current Visit: No Status: Chronic Plan to address problem: COnt home insulin and coverage Subjective Date of service: 04/16/20 Principal diagnosis: Hypertensive emergency, hyperkalemia, end-stage renal disease Interval history: Disposition: DC- TO HOME OR SELFCARE - Discharge Diagnoses (1) Hypertensive urgency Status: Acute (2) Hyperkalemia Status: Acute (3) End-stage renal disease needing dialysis Status: Chronic (4) Acute gastritis Status: Acute Qualifiers: Gastritis type: unspecified gastritis Gastritis bleeding: presence of bleeding unspecified Qualified Code(s): K29.00 - Acute gastritis without bleeding (5) IDDM (insulin dependent diabetes mellitus) Status: Chronic Core Measure Documentation - Palliative Care Palliative Care/ Comfort Measures: Not Applicable - Core Measures Any of the following diagnoses?: none Exam - Constitutional Vitals: Temp Pulse Resp BP Pulse Ox 98.3 F 79 150 H 157/94 97 04/17/20 04:47 04/17/20 12:53 04/17/20 04:47 04/17/20 04:47 04/17/20 04:47 General appearance: Present: no acute distress, well-nourished - EENT Eyes: Present: PERRL ENT: hearing intact, clear oral mucosa - Neck Neck: Present: supple, normal ROM - Respiratory Respiratory effort: normal Respiratory: bilateral: CTA - Cardiovascular Heart rate: 78 Rhythm: regular Heart Sounds: Present: S1 & S2. Absent: rub, click - Extremities Extremities: no ischemia, pulses intact, pulses symmetrical, No edema Peripheral Pulses: within normal limits - Abdominal General gastrointestinal: Present: soft, non-tender, non-distended, normal bowel sounds Male genitourinary: Present: normal - Rectal Rectal Exam: deferred - Integumentary Integumentary: Present: clear, warm, dry - Musculoskeletal Musculoskeletal: gait normal, strength equal bilaterally - Psychiatric Psychiatric: appropriate mood/affect, intact judgment & insight - Neurologic Neurologic: CNII-XII intact, moves all extremities - Allied Health Allied health notes reviewed: nursing, case management Plan Activity: no restrictions Diet: renal Special Instructions: restrict fluid intake to (1 L) Follow up with: CLEOPATRA HALL MD [Primary Care Provider] - 3-5 Days LEN ULRICH MD [Staff Physician] - 7 Days Forms: Discharge Signature Page
== END 2020-04-17 19:39 | disposition home or self-care (01) | DRG 391 ==
LOC: ED 16:31 → OBSVTOIN 18:36 → 4A 18:36
PROVIDERS: ADMIT Internal Medicine; ATTEND Internal Medicine
PROC: 5A1D70Z Performance of Urinary Filtration, Intermittent, Less than 6 Hours Per Day (ICD-10-PCS; 2020-04-15)
PROC: 5A1D70Z Performance of Urinary Filtration, Intermittent, Less than 6 Hours Per Day (ICD-10-PCS; principal; 2020-04-16)
DX: K29.00 Acute gastritis without bleeding (principal); N18.6 End stage renal disease; I13.2 Hypertensive heart and chronic kidney disease with heart failure and with stage 5 chronic kidney disease, or end stage renal disease; I16.0 Hypertensive urgency; E87.5 Hyperkalemia; E11.22 Type 2 diabetes mellitus with diabetic chronic kidney disease; Z99.2 Dependence on renal dialysis; Z91.15 Patient's noncompliance with renal dialysis; Z79.4 Long term (current) use of insulin; I25.10 Atherosclerotic heart disease of native coronary artery without angina pectoris; I50.9 Heart failure, unspecified; J45.909 Unspecified asthma, uncomplicated; Z90.49 Acquired absence of other specified parts of digestive tract; Z82.49 Family history of ischemic heart disease and other diseases of the circulatory system; D64.9 Anemia, unspecified
CPT/HCPCS: 36415; 74022; 80048; 80053; 80074; 82962; 85025; 85610; 85730; 94644; G0378; C9113; J0360; J0610; J1170; J1644; J1815; J2405; J7030; Q0161

== ENCOUNTER 2020-04-24 15:14 | Inpatient (IN) | payer MEDICARE ==
--- NOTE | 2020-04-24 16:15 | Event Note ---
ED Screening Note ED Screening Note: pt states he missed yesterday dialysis last went on 04/21/2020 N/V no diarrhea no fever lower abd pain PMHx ESRD, DM, HTN no allergies to meds This initial assessment/diagnostic orders/clinical plan/treatment(s) is/are subject to change based on patients health status, clinical progression and re-assessment by fellow clinical providers in the ED. Further treatment and workup at subsequent clinical providers discretion. Patient/guardian urged not to elope from the ED as their condition may be serious if not clinically assessed and managed. Initial orders include: labs repeat HR 99-100 temp is normal BP 183/106
[2020-04-24] MEDS ORDERED: ONDANSETRON 4 MG/2 ML INJ IV ONE (17:01)
--- NOTE | 2020-04-24 17:04 | Emergency Department Report ---
ED General Adult HPI - General Chief complaint: Nausea/Vomiting/Diarrhea Stated complaint: DIALYSIS/DIABETIC/ASTHMA PUI?: Yes Time Seen by Provider: 04/24/20 16:12 Source: patient Mode of arrival: Ambulatory Limitations: No Limitations - History of Present Illness Initial comments: Patient is a 34-year-old male that presents emergency room with multiple complaints. Patient states that he has fever, shortness of breath, nausea vomiting. Patient states he missed dialysis for 1 week. Patient states his symptoms are better with rest and worse with exertion. Patient denies vomiting blood this time. Patient denies diarrhea. Patient states that his fever, shortness of breath, nausea and vomiting started 3 days ago. Patient states that due to not feeling well he did not go to dialysis for 1 week. Patient denies chest pain. Patient denies body aches. Patient also complains of abdominal pain. Patient states abdominal pain is an 8 out of 10. Patient states is worse with movement and palpation. Patient states is better with rest. -: Sudden Location: abdomen Severity scale (0 -10): 8 Quality: stabbing Consistency: constant Improves with: rest Worsens with: movement, other Associated Symptoms: fever/chills, loss of appetite, malaise, nausea/vomiting, shortness of breath. denies: confusion, chest pain, cough, diaphoresis, headaches, rash, seizure, syncope, weakness Treatments Prior to Arrival: none - Related Data Previous Rx's Medication Instructions Recorded Last Taken Type chlorproMAZINE [Thorazine] 25 mg PO TID #20 tablet 02/09/20 2 Days Ago Rx ~04/14/20 Sucralfate [Carafate] 1 gm PO ACHS #120 tablet 03/05/20 2 Days Ago Rx ~04/14/20 Albuterol Sulfate [Albuterol 0.63% 0.63 mg IH Q4HR PRN #50 04/17/20 Unknown Rx NEBS] Dicyclomine [Bentyl] 10 mg PO QID PRN #30 capsule 04/17/20 Unknown Rx Insulin Detemir [Levemir VIAL] 0 unit SQ QHS #1 vial 04/17/20 Unknown Rx Lispro Insulin [HumaLOG] 5 unit SQ AC #1 vial 04/17/20 Unknown Rx Metoclopramide [Reglan TAB] 5 mg PO ACHS PRN #120 tablet 04/17/20 Unknown Rx Pantoprazole [Protonix TAB] 40 mg PO QDAY #30 tablet 04/17/20 Unknown Rx Sucralfate [Carafate] 1 gm PO Q6HR 30 Days #120 udc 04/17/20 Unknown Rx amLODIPine 10 mg PO DAILY #30 tablet 04/17/20 Unknown Rx carvediloL [Coreg] 25 mg PO BID #60 tablet 04/17/20 Unknown Rx carvediloL [Coreg] 25 mg PO BID 30 Days #60 tablet 04/17/20 Unknown Rx hydrALAZINE [Apresoline TAB] 100 mg PO Q8HR #90 tab 04/17/20 Unknown Rx oxyCODONE /ACETAMINOPHEN [Percocet 1 tab PO Q6H PRN #14 tablet 04/17/20 Unknown Rx 5/325 mg] Ondansetron [Zofran Odt] 4 mg PO Q8HR PRN #20 tab.rapdis 04/24/20 Unknown Rx Allergies Allergy/AdvReac Type Severity Reaction Status Date / Time No Known Allergies Allergy Verified 04/24/20 15:27 ED Review of Systems ROS: Stated complaint: DIALYSIS/DIABETIC/ASTHMA Other details as noted in HPI Comment: All other systems reviewed and negative Constitutional: fever. denies: chills Eyes: denies: eye pain, eye discharge, vision change ENT: denies: ear pain, throat pain Respiratory: shortness of breath. denies: cough, wheezing Cardiovascular: denies: chest pain, palpitations Endocrine: no symptoms reported Gastrointestinal: abdominal pain, nausea, vomiting. denies: diarrhea Genitourinary: denies: urgency, dysuria Musculoskeletal: denies: back pain, joint swelling, arthralgia Skin: denies: rash, lesions Neurological: denies: headache, weakness, paresthesias Psychiatric: denies: anxiety, depression Hematological/Lymphatic: denies: easy bleeding, easy bruising ED Past Medical Hx - Past Medical History Previous Medical History?: Yes Hx Hypertension: Yes Hx Heart Attack/AMI: Yes Hx Congestive Heart Failure: Yes Hx Diabetes: Yes Hx Deep Vein Thrombosis: No Hx Pulmonary Embolism: No Hx Liver Disease: No Hx Renal Disease: No Hx Sickle Cell Disease: No Hx Kidney Stones: No Hx Asthma: Yes Hx COPD: No Hx Tuberculosis: No Hx HIV: No Additional medical history: Ulcerative esophagitis, Gastroparesis HD MWF - Surgical History Past Surgical History?: Yes Hx Coronary Stent: No Hx Pacemaker: No Hx Internal Defibrillator: No Hx Cholecystectomy: Yes Hx Appendectomy: Yes Additional Surgical History: right great toe removed, Right chest PERMA-CATH - Family History Family history: no significant - Social History Smoking Status: Never Smoker Substance Use Type: None - Medications Home Medications: Home Medications Medication Instructions Recorded Confirmed Last Taken Type chlorproMAZINE [Thorazine] 25 mg PO TID #20 tablet 02/09/20 04/16/20 2 Days Ago Rx ~04/14/20 Sucralfate [Carafate] 1 gm PO ACHS #120 tablet 03/05/20 04/16/20 2 Days Ago Rx ~04/14/20 Albuterol Sulfate [Albuterol 0.63% 0.63 mg IH Q4HR PRN #50 04/17/20 Unknown Rx NEBS] Dicyclomine [Bentyl] 10 mg PO QID PRN #30 capsule 04/17/20 Unknown Rx Insulin Detemir [Levemir VIAL] 0 unit SQ QHS #1 vial 04/17/20 Unknown Rx Lispro Insulin [HumaLOG] 5 unit SQ AC #1 vial 04/17/20 Unknown Rx Metoclopramide [Reglan TAB] 5 mg PO ACHS PRN #120 tablet 04/17/20 Unknown Rx Pantoprazole [Protonix TAB] 40 mg PO QDAY #30 tablet 04/17/20 Unknown Rx Sucralfate [Carafate] 1 gm PO Q6HR 30 Days #120 udc 04/17/20 Unknown Rx amLODIPine 10 mg PO DAILY #30 tablet 04/17/20 Unknown Rx carvediloL [Coreg] 25 mg PO BID #60 tablet 04/17/20 Unknown Rx carvediloL [Coreg] 25 mg PO BID 30 Days #60 tablet 04/17/20 Unknown Rx hydrALAZINE [Apresoline TAB] 100 mg PO Q8HR #90 tab 04/17/20 Unknown Rx oxyCODONE /ACETAMINOPHEN [Percocet 1 tab PO Q6H PRN #14 tablet 04/17/20 Unknown Rx 5/325 mg] Ondansetron [Zofran Odt] 4 mg PO Q8HR PRN #20 tab.rapdis 04/24/20 Unknown Rx ED Physical Exam - General Limitations: No Limitations General appearance: alert, in no apparent distress - Head Head exam: Present: atraumatic, normocephalic - Eye Eye exam: Present: normal appearance - ENT ENT exam: Present: mucous membranes moist - Neck Neck exam: Present: normal inspection - Respiratory Respiratory exam: Present: normal lung sounds bilaterally. Absent: respiratory distress, wheezes, rales, rhonchi, stridor, accessory muscle use, decreased breath sounds, prolonged expiratory - Cardiovascular Cardiovascular Exam: Present: regular rate, normal rhythm. Absent: systolic murmur, diastolic murmur, rubs, gallop - GI/Abdominal GI/Abdominal exam: Present: soft, normal bowel sounds. Absent: distended, tenderness, guarding - Rectal Rectal exam: Present: deferred - Extremities Exam Extremities exam: Present: normal inspection - Back Exam Back exam: Present: normal inspection - Neurological Exam Neurological exam: Present: alert, oriented X3 - Psychiatric Psychiatric exam: Present: normal affect, normal mood - Skin Skin exam: Present: warm, dry, intact, normal color. Absent: rash ED Course Vital Signs 04/24/20 04/24/20 04/24/20 15:34 15:35 16:57 Temperature 100.6 F H 100.6 F H Pulse Rate 100 H 101 H Respiratory 20 20 Rate Blood Pressure 208/119 Blood Pressure 208/119 [Left] O2 Sat by Pulse 98 97 100 Oximetry 04/24/20 04/24/20 04/24/20 16:59 17:01 17:02 Temperature Pulse Rate 100 H 97 H 104 H Respiratory 26 H 21 17 Rate Blood Pressure 215/124 Blood Pressure [Left] O2 Sat by Pulse 100 100 97 Oximetry 04/24/20 04/24/20 04/24/20 17:05 17:06 17:15 Temperature Pulse Rate 104 H 99 H Respiratory 17 17 19 Rate Blood Pressure 215/124 211/116 Blood Pressure [Left] O2 Sat by Pulse 97 97 99 Oximetry 04/24/20 04/24/20 04/24/20 17:31 17:36 17:45 Temperature Pulse Rate 95 H 89 Respiratory 17 17 14 Rate Blood Pressure 211/116 186/106 Blood Pressure [Left] O2 Sat by Pulse 98 99 Oximetry 04/24/20 04/24/20 04/24/20 18:00 18:15 18:37 Temperature Pulse Rate 86 90 Respiratory 11 L 11 L 14 Rate Blood Pressure 168/98 192/109 192/109 Blood Pressure [Left] O2 Sat by Pulse 100 99 100 Oximetry - Reevaluation(s) Reevaluation #1: Initial valuation done. We will give patient Zofran and Dilaudid and monitor the patient's blood pressure and change treatment PRN. 04/24/20 16:12 Reevaluation #2: Patient blood pressure is improved. Patient's oxygen saturation stable. Patient's pain has improved. 04/24/20 17:18 Reevaluation #3: I discussed all results with patient. I discussed plan of care with patient. Patient agrees with plan of care and admission. Patient to be admitted to the hospitalist service. 04/24/20 19:18 Reevaluation #4: Patient's blood pressure is better. We will continue to monitor blood pressure. Patient states his pain is better. I discussed all results with patient. I discussed plan of care with patient. Patient agrees with plan of care and admission. Patient to be admitted to the hospitalist service. 04/24/20 19:29 - Consultations Consultation #1: I discussed case with Dr. eMndosa. Dr. Mendosa states that the patient admitted to the hospitalist service and she will dialyze the patient in the morning. 04/24/20 19:28 Consultation #2: Hospitalist consulted for admission. Hospitalist to admit patient. 04/24/20 19:28 ED Medical Decision Making - Lab Data Result diagrams: 04/24/20 17:36 04/24/20 17:36 - Radiology Data Radiology results: report reviewed, image reviewed CT ABDOMEN AND PELVIS WITHOUT CONTRAST HISTORY: MAIN: abd pain COVID PT SCANNED ON 4 SLICE SCANNER WO CONTRAST. COMPARISON: CT abdomen/pelvis from 03/30/2020 TECHNIQUE: CT images of the abdomen and pelvis were obtained without administration of intravenous contrast. All CT scans at this location are performed using CT dose reduction for ALARA by means of automated exposure control. FINDINGS: Lungs/bones: There is mild left basilar atelectasis with otherwise clear lungs. No acute osseous abnormality identified. Abdomen/pelvis: There is again circumferential wall thickening in the distal esophagus near the GE junction and a small hiatal hernia. The liver again contains a vague low-attenuation lesion in the posterior hepatic segment which is stable. The liver is also mildly enlarged. The gallbladder contains a small amount sludge with no inflammatory change identified. Spleen, pancreas, adrenals, kidneys, and proximal GI tract appear unremarkable. Urinary bladder and prostate are unremarkable with no pelvic free fluid. No acute colonic abnormality identified. The appendix appears to be surgically absent. The terminal ileum is normal. IMPRESSION: 1. Persistent moderate circumferential wall thickening in the distal esophagus. The GE junction and small hiatal hernia. 2. No acute abnormality identified. 3. Incidental findings as above. CHEST - 1 VIEW INDICATION: sob COMPARISON: 04/14/2020 FINDINGS: SUPPORT DEVICES: Stable support device positioning. HEART: Stable cardiomediastinal silhouette. LUNGS/PLEURA: Clear lungs. Minimal edema has resolved since the previous exam. ADDITIONAL FINDINGS: None. IMPRESSION: Clear lungs. - Medical Decision Making Patient is a 34-year-old male that presents emergency room with complaints of fever, shortness of breath, nausea, vomiting, abdominal pain AND missed dialysis. Patient found to have hypertensive urgency. Patient given pain medication and his blood pressure improved. Patient nausea resolved with Zofran. Patient had a CT of the abdomen done due to his complaints and it was negative for acute findings except for esophagitis and gastritis. 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 Patient admitted to the hospital service. Patient cli nical findings are consistent with pneumonia and missed dialysis. - Differential Diagnosis Pneumonia, shortness of breath, nausea vomiting, gastroparesis, abd pAIN Critical Care Time: Yes Critical care time in (mins) excluding proc time.: 35 Critical care attestation.: If time is entered above; I have spent that time in minutes in the direct care of this critically ill patient, excluding procedure time. Critical Care Time: 35 MINUTES ED Disposition Clinical Impression: SOB (shortness of breath), Missed dialysis, SIRS (systemic inflammatory response syndrome), Gastroparesis, Hypertensive crisis, Uncontrolled hypertension, Hypertensive emergency Fever Qualifiers: Fever type: unspecified Qualified Code(s): R50.9 - Fever, unspecified Abdominal pain Qualifiers: Abdominal location: lower abdomen, unspecified Qualified Code(s): R10.30 - Lower abdominal pain, unspecified Nausea & vomiting Qualifiers: Vomiting type: unspecified Vomiting Intractability: non-intractable Qualified Code(s): R11.2 - Nausea with vomiting, unspecified Pneumonia Qualifiers: Pneumonia type: due to unspecified organism Laterality: unspecified laterality Lung location: unspecified part of lung Qualified Code(s): J18.9 - Pneumonia, unspecified organism Acute gastritis Qualifiers: Gastritis type: unspecified gastritis Gastritis bleeding: presence of bleeding unspecified Qualified Code(s): K29.00 - Acute gastritis without bleeding Disposition: OP ADMIT IP TO THIS HOSP Is pt being admited?: Yes Does the pt Need Aspirin: No Condition: Critical Instructions: Hypertension (ED) Time of Disposition: 19:32
[2020-04-24] MEDS ORDERED: HYDROmorphone 1 MG/1 ML INJ IV ONE (17:18)
--- NOTE | 2020-04-24 17:43 | XRay Report ---
CHEST - 1 VIEW INDICATION: sob COMPARISON: 04/14/2020 FINDINGS: SUPPORT DEVICES: Stable support device positioning. HEART: Stable cardiomediastinal silhouette. LUNGS/PLEURA: Clear lungs. Minimal edema has resolved since the previous exam. ADDITIONAL FINDINGS: None. IMPRESSION: Clear lungs. Signer Name: Jai Clark MD Signed: 04/24/2020 5:39 PM Workstation Name: [id number]
[2020-04-24 17:49] LABS: Basophils # (Auto) 0.2 K/mm3 (0.0-0.1); Basophils % (Auto) 1.3 % (0.0-1.8); Eosinophils % (Auto) 0.1 % (0.0-4.3); Hematocrit 31.5 % (35.5-45.6); Lymphocytes # (Auto) 0.9 K/mm3 (1.2-5.4); Lymphocytes % (Auto) 7.4 % (13.4-35.0); Mean Corpuscular HGB Conc 35 % (32-34); Mean Corpuscular Volume 82 fl (84-94); Monocytes # (Auto) 1.4 K/mm3 (0.0-0.8); Monocytes % (Auto) 11.5 % (0.0-7.3); Platelet Count 546 K/mm3 (140-440); Red Blood Count 3.84 M/mm3 (3.65-5.03)
[2020-04-24 18:06] LABS: Albumin 3.8 g/dL (3.9-5); Calcium 9.4 mg/dL (8.4-10.2)
--- NOTE | 2020-04-24 19:03 | Cat Scan Report ---
CT ABDOMEN AND PELVIS WITHOUT CONTRAST HISTORY: MAIN: abd pain COVID PT SCANNED ON 4 SLICE SCANNER WO CONTRAST. COMPARISON: CT abdomen/pelvis from 03/30/2020 TECHNIQUE: CT images of the abdomen and pelvis were obtained without administration of intravenous co ntrast. All CT scans at this location are performed using CT dose reduction for ALARA by means of au tomated exposure control. FINDINGS: Lungs/bones: There is mild left basilar atelectasis with otherwise clear lungs. No acute osseous abn ormality identified. Abdomen/pelvis: There is again circumferential wall thickening in the distal esophagus near the GE junction and a sma ll hiatal hernia. The liver again contains a vague low-attenuation lesion in the posterior hepatic se gment which is stable. The liver is also mildly enlarged. The gallbladder contains a small amount slu dge with no inflammatory change identified. Spleen, pancreas, adrenals, kidneys, and proximal GI trac t appear unremarkable. Urinary bladder and prostate are unremarkable with no pelvic free fluid. No acute colonic abnormality identified. The appendix appears to be surgically absent. The terminal ileum is normal. IMPRESSION: 1. Persistent moderate circumferential wall thickening in the distal esophagus. The GE junction and s mall hiatal hernia. 2. No acute abnormality identified. 3. Incidental findings as above. Signer Name: Jai Clark MD Signed: 04/24/2020 6:58 PM Workstation Name: [id number]
[2020-04-24] MEDS ORDERED: ACETAMINOPHEN 325 MG TAB PO PRN (19:32)
[2020-04-24] MEDS ORDERED: ALBUTEROL 2.5 MG/3 ML NEBU IH PRN (19:32)
--- NOTE | 2020-04-24 19:37 | History and Physical Report ---
History of Present Illness Chief complaint: I just feel kind of sick History of present illness: 34 YO Male with HTN, DM complicated by Gastroparesis, ESRD on HD (M, W, F), Gastric Ulcer, Recurrent Ulcerative Esophagitis, noncompliance presents to ED for evaluation. Patient states that he has been "feeling sick" for the past 3 days with progressively worsening symptoms over the same timeframe. Patient states that he has experienced low-grade fever, shortness of breath, nausea, multiple episodes of vomiting. Patient acknowledges noncompliance with dialysis over the past week. Patient also acknowledges shortness of breath, and decreased exercise tolerance. Patient transported to [facility] via private vehicle for further care and evaluation. Patient seen and evaluated in the emergency department. Lab and imaging studies reviewed. Patient found to have hypertensive emergency with blood pressure of 215/124, end-stage renal disease in need of urgent dialysis, fluid overload, chest x-ray findings consistent with pneumonia, and systemic inflammatory response syndrome with acute organ dysfunction. Patient admitted to medical floor for medical stabilization due to high risk for cardiopulmonary and renal decompensation. Nephrology team consulted for urgent dialysis. Patient treated with IV antihypertensive therapy with improvement in systolic blood pressure. Patient initiated on pneumonia protocol and treated with IV antibiotic therapy. Patient denies chest pain, palpitations, productive cough, skin rash, recent ill contacts, or known exposure to COVID-19. Prior admission on 04/14/2020 reviewed. All medication listed at time of admission has been reconciled. Patient counseled regarding noncompliance with outpatient dialysis. Past History Past Medical History: diabetes, ESRD, hypertension, other (See HPI) Past Surgical History: appendectomy, Other (Dialysis access) Social history: single. denies: smoking, alcohol abuse Family history: diabetes, hypertension Medications and Allergies Allergies Allergy/AdvReac Type Severity Reaction Status Date / Time No Known Allergies Allergy Verified 04/24/20 15:27 Home Medications Medication Instructions Recorded Confirmed Last Taken Type chlorproMAZINE [Thorazine] 25 mg PO TID #20 tablet 02/09/20 04/16/20 2 Days Ago Rx ~04/14/20 Sucralfate [Carafate] 1 gm PO ACHS #120 tablet 03/05/20 04/16/20 2 Days Ago Rx ~04/14/20 Albuterol Sulfate [Albuterol 0.63% 0.63 mg IH Q4HR PRN #50 04/17/20 Unknown Rx NEBS] Dicyclomine [Bentyl] 10 mg PO QID PRN #30 capsule 04/17/20 Unknown Rx Insulin Detemir [Levemir VIAL] 0 unit SQ QHS #1 vial 04/17/20 Unknown Rx Lispro Insulin [HumaLOG] 5 unit SQ AC #1 vial 04/17/20 Unknown Rx Metoclopramide [Reglan TAB] 5 mg PO ACHS PRN #120 tablet 04/17/20 Unknown Rx Pantoprazole [Protonix TAB] 40 mg PO QDAY #30 tablet 04/17/20 Unknown Rx Sucralfate [Carafate] 1 gm PO Q6HR 30 Days #120 udc 04/17/20 Unknown Rx amLODIPine 10 mg PO DAILY #30 tablet 04/17/20 Unknown Rx carvediloL [Coreg] 25 mg PO BID #60 tablet 04/17/20 Unknown Rx carvediloL [Coreg] 25 mg PO BID 30 Days #60 tablet 04/17/20 Unknown Rx hydrALAZINE [Apresoline TAB] 100 mg PO Q8HR #90 tab 04/17/20 Unknown Rx oxyCODONE /ACETAMINOPHEN [Percocet 1 tab PO Q6H PRN #14 tablet 04/17/20 Unknown Rx 5/325 mg] Ondansetron [Zofran Odt] 4 mg PO Q8HR PRN #20 tab.rapdis 04/24/20 Unknown Rx Active Meds: Active Medications Acetaminophen (Tylenol) 650 mg PO Q4H PRN PRN Reason: Pain MILD(1-3)/Fever >100.5/LANZA Albuterol (Proventil) 2.5 mg IH Q4HRT PRN PRN Reason: Shortness Of Breath Ceftriaxone Sodium (Rocephin/Ns 2 Gm/100 Ml) 2 gm in 100 mls @ 200 mls/hr IV Q24HR KESHIA; Protocol Azithromycin 500 mg/ Sodium (Chloride) 250 mls @ 250 mls/hr IV Q24HR KESHIA; Protocol Ondansetron HCl (Zofran) 4 mg IV Q8H PRN PRN Reason: Nausea And Vomiting Sodium Chloride (Sodium Chloride Flush Syringe 10 Ml) 10 ml IV BID KESHIA Sodium Chloride (Sodium Chloride Flush Syringe 10 Ml) 10 ml IV PRN PRN PRN Reason: LINE FLUSH Review of Systems Constitutional: no weight loss, no weight gain, no fever, no chills Ears, nose, mouth and throat: no ear pain, no ear discharge, no tinnitis, no decreased hearing, no nose pain Cardiovascular: decreased exercise tolerance, no chest pain, no orthopnea, no palpitations, no edema, no syncope Respiratory: shortness of breath, no cough, no cough with sputum, no excessive sputum, no hemoptysis Gastrointestinal: abdominal pain, nausea, vomiting Genitourinary Male: no hematuria, no flank pain, no discharge, no urinary frequency Musculoskeletal: no neck stiffness, no neck pain, no shooting arm pain Integumentary: no rash, no pruritis, no redness, no wounds, no jaundice Neurological: no head injury, no transient paralysis, no paralysis, no parathesias, no tingling, no seizures, no syncope, no tremors Psychiatric: no anxiety, no memory loss, no change in sleep habits, no sleep disturbances, no hypersomnia, no change in libido, no suicidal ideation Endocrine: no cold intolerance, no heat intolerance, no polyphagia, no polydipsia, no excessive sweating Hematologic/Lymphatic: no easy bruising, no easy bleeding Allergic/Immunologic: no urticaria, no allergic rhinitis, no wheezing Exam - Constitutional Vitals: Temp Pulse Resp BP Pulse Ox 100.6 F H 90 14 192/109 100 04/24/20 15:35 04/24/20 18:15 04/24/20 18:37 04/24/20 18:37 04/24/20 18:37 General appearance: Present: mild distress - EENT Eyes: Present: PERRL ENT: hearing intact, clear oral mucosa - Neck Neck: Present: supple, normal ROM - Respiratory Respiratory effort: normal Respiratory: bilateral: diminished - Cardiovascular Heart Sounds: Present: S1 & S2. Absent: rub, click - Extremities Extremities: pulses symmetrical, No edema Peripheral Pulses: within normal limits - Abdominal General gastrointestinal: Present: soft, non-tender, non-distended, normal bowel sounds Male genitourinary: Present: normal - Integumentary Integumentary: Present: clear, warm, dry - Musculoskeletal Musculoskeletal: gait normal, strength equal bilaterally - Psychiatric Psychiatric: appropriate mood/affect, intact judgment & insight - Neurologic Neurologic: CNII-XII intact, moves all extremities Results - Labs CBC & Chem 7: 04/24/20 17:36 04/24/20 17:36 Labs: Abnormal lab results 04/24/20 04/24/20 Range/Units 17:36 17:36 WBC 12.3 H (4.5-11.0) K/mm3 Hgb 11.0 L (11.8-15.2) gm/dl Hct 31.5 L (35.5-45.6) % MCV 82 L (84-94) fl MCHC 35 H (32-34) % RDW 19.0 H (13.2-15.2) % Plt Count 546 H (140-440) K/mm3 Lymph % (Auto) 7.4 L (13.4-35.0) % [place] % (Auto) 11.5 H (0.0-7.3) % Lymph # 0.9 L (1.2-5.4) K/mm3 [place] # 1.4 H (0.0-0.8) K/mm3 Baso # 0.2 H (0.0-0.1) K/mm3 Seg Neutrophils % 79.7 H (40.0-70.0) % Seg Neutrophils # 9.8 H (1.8-7.7) K/mm3 Chloride 93.8 L (98-107) mmol/L BUN 53 H (9-20) mg/dL Creatinine 14.0 H (0.8-1.5) mg/dL Glucose 226 H (75-100) mg/dL Total Creatine Kinase 305 H (55-170) units/L Albumin 3.8 L (3.9-5) g/dL Assessment and Plan - Patient Problems (1) Pneumonia Current Visit: Yes Status: Acute Qualifiers: Laterality: left Lung location: lower lobe of lung Plan to address problem: Pneumonia protocol: Left lower lobe pneumonia, IV antibiotic therapy, chest x- ray, submental oxygen, nebulizer therapy, blood culture, IV antibiotic therapy, pulse oximetry. (2) ESRD (end stage renal disease) Current Visit: Yes Status: Acute Plan to address problem: Nephrology team consulted in ED, urgent dialysis as per renal team, strict I/O, monitor urine output every shift, daily weight, avoid nephrotoxic agents. (3) Accelerated hypertension Current Visit: Yes Status: Acute Plan to address problem: Monitor blood pressure every shift, resume prehospital antihypertensive therapy, IV hydralazine every 6 hours as needed for systolic blood pressure greater than or equal to 155 (4) SIRS (systemic inflammatory response syndrome) Current Visit: Yes Status: Acute Plan to address problem: CBC, CMP, urinalysis, chest x-ray, empiric IV antibiotic therapy, repeat CBC in a.m. (5) Fluid overload Current Visit: Yes Status: Acute Qualifiers: Hypervolemia type: other Qualified Code(s): E87.79 - Other fluid overload Plan to address problem: Dialysis as per renal team, monitor urine output every shift, monitor fluid balance. (6) DVT prophylaxis Current Visit: Yes Status: Acute Plan to address problem: SCD to bilateral lower extremities while in bed, patient is ambulatory.
[2020-04-24] MEDS ORDERED: cefTRIAXone/NS 2 GM/100 ML 2 GM/100 ML BAG IV ONE (20:27)
[2020-04-24] MEDS: cefTRIAXone/NS 2 GM/100 ML 2 GM/100 ML BAG IV SCH (20:30)
[2020-04-24] MEDS ORDERED: DICYCLOMINE 10 MG CAP PO PRN (20:37)
[2020-04-24] MEDS ORDERED: oxyCODONE /ACETAMINOPHEN 5-325MG TAB PO PRN (20:37)
[2020-04-24] MEDS ORDERED: ONDANSETRON 4 MG ODT TAB PO PRN (20:37)
[2020-04-24] MEDS ORDERED: ALBUTEROL SULFATE 0.63 MG IH PRN (20:37)
[2020-04-24] MEDS ORDERED: METOCLOPRAMIDE 10 MG TAB PO PRN (20:37)
[2020-04-24] MEDS: hydrALAZINE 20 MG/1 ML INJ IV PRN (21:24)
[2020-04-24] MEDS: carvediloL 25 MG TAB PO SCH (21:28)
[2020-04-24] MEDS: SUCRALFATE 1 GM TAB PO SCH (23:19)
[2020-04-24] MEDS: AZITHROMYCIN 500 MG in SODIUM CHLORIDE 0.9% 250ML 250 ML IV SCH (23:19)
[2020-04-24] MEDS: amLODIPine 10 MG TAB PO SCH (23:45)
[2020-04-25] MEDS: hydrALAZINE 100 MG TAB PO SCH ×6 (01:38→21:46)
[2020-04-25] MEDS: ONDANSETRON 4 MG/2 ML INJ IV PRN ×2 (04:10→15:02)
--- NOTE | 2020-04-25 07:47 | Progress Note ---
Assessment and Plan Assessment and plan: 34 YO Male with HTN, DM complicated by Gastroparesis, ESRD on HD (M, W, F), Gastric Ulcer, Recurrent Ulcerative Esophagitis, noncompliance presents to ED for evaluation. Patient states that he has been "feeling sick" for the past 3 days with progressively worsening symptoms over the same timeframe. Patient states that he has experienced low-grade fever, shortness of breath, nausea, multiple episodes of vomiting. Patient acknowledges noncompliance with dialysis over the past week. Patient also acknowledges shortness of breath, and decreased exercise tolerance. Patient transported to [facility] via private vehicle for further care and evaluation. Patient seen and evaluated in the emergency department. Lab and imaging studies reviewed. Patient found to have hypertensive emergency with blood pressure of 215/124, end-stage renal disease in need of urgent dialysis, fluid overload, chest x-ray findings consistent with pneumonia, and systemic inflammatory response syndrome with acute organ dysfun ction. Patient admitted to medical floor for medical stabilization due to high risk for cardiopulmonary and renal decompensation. Nephrology team consulted for urgent dialysis. Patient treated with IV antihypertensive therapy with improvement in systolic blood pressure. Patient initiated on pneumonia protocol and treated with IV antibiotic therapy. Patient denies chest pain, palpitations, productive cough, skin rash, recent ill contacts, or known exposure to COVID-19. Prior admission on 04/14/2020 reviewed. All medication listed at time of admission has been reconciled. Patient counseled regarding noncompliance with outpatient dialysis. Chest x-ray negative CT consistent with esophagitis. Plan 04/25/2020: Await nephrology input. I would recommend an outpatient GI evaluation for possible biopsies of the esophagus if this has not been done to rule out other pathologies. Extensive discussion on compliance. Follow cultures to rule out coronavirus as presentation could different different patients although I think this is less likely the case considering no pneumonia. Continue antibiotics for now. Pain control Fever of unknow origin: Rule out Coronavirus RULED OUT pneumonia as chest x-ray is normal per report actual image cannot be viewed by me due to system failure End-stage renal disease likely volume overload Gastroparesis with nausea vomiting Uremia from noncompliance which could also exacerbate gastroparesis and persistent nausea vomiting- Now resolved Hypertensive emergency now improved Systemic inflammatory response syndrome with organ dysfunction Leukocytosis Diabetes mellitus with hyperglycemia Anemia of chronic disease Acute respiratory failure secondary to volume overload Esophagitis with persistent circumferential wall thickening in the distal esophagus History Interval history: Patient seen and examined having dialysis today. No new complaints. Hospitalist Physical - Physical exam Narrative exam: General appearance: Present: No distress - EENT Eyes: Present: PERRL ENT: hearing intact, clear oral mucosa - Neck Neck: Present: supple, normal ROM - Respiratory Respiratory effort: normal Respiratory: bilateral: diminished - Cardiovascular Heart Sounds: Present: S1 & S2. Absent: rub, click - Extremities Extremities: pulses symmetrical, No edema Peripheral Pulses: within normal limits - Abdominal General gastrointestinal: Present: soft, non-tender, non-distended, normal bowel sounds Male genitourinary: Present: normal - Integumentary Integumentary: Present: clear, warm, dry - Musculoskeletal Musculoskeletal: gait normal, strength equal bilaterally - Psychiatric Psychiatric: appropriate mood/affect, intact judgment & insight - Neurologic Neurologic: CNII-XII intact, moves all extremities - Constitutional Vitals: Temp Pulse Resp BP Pulse Ox 97.6 F 80 18 131/76 96 04/25/20 06:28 04/25/20 06:28 04/25/20 06:28 04/25/20 06:28 04/25/20 06:28 General appearance: Present: mild distress Results - Labs CBC & Chem 7: 04/24/20 17:36 04/24/20 17:36 Labs: Laboratory Last Values WBC 12.3 K/mm3 (4.5-11.0) H 04/24/20 17:36 RBC 3.84 M/mm3 (3.65-5.03) 04/24/20 17:36 Hgb 11.0 gm/dl (11.8-15.2) L 04/24/20 17:36 Hct 31.5 % (35.5-45.6) L 04/24/20 17:36 MCV 82 fl (84-94) L 04/24/20 17:36 MCH 29 pg (28-32) 04/24/20 17:36 MCHC 35 % (32-34) H 04/24/20 17:36 RDW 19.0 % (13.2-15.2) H 04/24/20 17:36 Plt Count 546 K/mm3 (140-440) H 04/24/20 17:36 Lymph % (Auto) 7.4 % (13.4-35.0) L 04/24/20 17:36 [place] % (Auto) 11.5 % (0.0-7.3) H 04/24/20 17:36 Eos % (Auto) 0.1 % (0.0-4.3) 04/24/20 17:36 Baso % (Auto) 1.3 % (0.0-1.8) 04/24/20 17:36 Lymph # 0.9 K/mm3 (1.2-5.4) L 04/24/20 17:36 [place] # 1.4 K/mm3 (0.0-0.8) H 04/24/20 17:36 Eos # 0.0 K/mm3 (0.0-0.4) 04/24/20 17:36 Baso # 0.2 K/mm3 (0.0-0.1) H 04/24/20 17:36 Seg Neutrophils % 79.7 % (40.0-70.0) H 04/24/20 17:36 Seg Neutrophils # 9.8 K/mm3 (1.8-7.7) H 04/24/20 17:36 Sodium 144 mmol/L (137-145) 04/24/20 17:36 Potassium 3.9 mmol/L (3.6-5.0) 04/24/20 17:36 Chloride 93.8 mmol/L (98-107) L 04/24/20 17:36 Carbon Dioxide 30 mmol/L (22-30) 04/24/20 17:36 Anion Gap 24 mmol/L 04/24/20 17:36 BUN 53 mg/dL (9-20) H 04/24/20 17:36 Creatinine 14.0 mg/dL (0.8-1.5) H 04/24/20 17:36 Estimated GFR 5 ml/min 04/24/20 17:36 BUN/Creatinine Ratio 4 % 04/24/20 17:36 Glucose 226 mg/dL (75-100) H 04/24/20 17:36 POC Glucose 215 (70-105) H 04/24/20 21:16 Calcium 9.4 mg/dL (8.4-10.2) 04/24/20 17:36 Magnesium 2.00 mg/dL (1.7-2.3) 04/24/20 17:36 Total Bilirubin 0.50 mg/dL (0.1-1.2) 04/24/20 17:36 AST 14 units/L (5-40) 04/24/20 17:36 ALT 10 units/L (7-56) 04/24/20 17:36 Alkaline Phosphatase 113 units/L (35-129) 04/24/20 17:36 Total Creatine Kinase 305 units/L (55-170) H 04/24/20 17:36 Total Protein 7.5 g/dL (6.3-8.2) 04/24/20 17:36 Albumin 3.8 g/dL (3.9-5) L 04/24/20 17:36 Albumin/Globulin Ratio 1.0 % 04/24/20 17:36 Lipase 30 units/L (13-60) 04/24/20 17:36 Microbiology: Microbiology 04/24/20 19:54 Peripheral/Venous Blood Culture - Preliminary Culture in Progress 04/24/20 19:52 Peripheral/Venous Blood Culture - Preliminary Culture in Progress Perez/IV: Voiding Method Toilet IV Catheter Type [Right Chest] INT / Saline Lock Active Medications - Current Medications Current Medications: Generic Name Dose Route Start Last Admin Trade Name Freq PRN Reason Stop Dose Admin Acetaminophen 650 mg 04/24/20 19:32 Tylenol PO Q4H PRN Pain MILD(1-3)/Fever >100.5/LANZA Albuterol 2.5 mg 04/24/20 19:32 Proventil IH Q4HRT PRN Shortness Of Breath Amlodipine Besylate 10 mg 04/24/20 20:37 04/24/20 23:45 Amlodipine PO Not Given DAILY KESHIA Carvedilol 25 mg 04/24/20 22:00 04/24/20 21:28 Coreg PO 25 mg BID KESHIA Administration Chlorpromazine HCl 25 mg 04/25/20 08:00 Thorazine PO TID KESHIA Dicyclomine HCl 10 mg 04/24/20 20:37 Bentyl PO QID PRN Pain, Moderate (4-6) Hydralazine HCl 100 mg 04/24/20 20:37 04/25/20 07:33 Apresoline PO 100 mg Q8HR KESHIA Administration Hydralazine HCl 10 mg 04/24/20 20:39 04/24/20 21:24 Apresoline IV 10 mg Q6HR PRN Administration Hypertension Ceftriaxone Sodium 2 gm in 100 mls @ 200 mls/hr 04/24/20 19:32 04/24/20 20:30 Rocephin/Ns 2 Gm/100 Ml IV 200 mls/hr Q24HR KESHIA Administration Protocol Azithromycin 500 mg/ Sodium 250 mls @ 250 mls/hr 04/24/20 19:32 04/24/20 23:19 Chloride IV 250 mls/hr Q24HR KESHIA Administration Protocol Metoclopramide HCl 5 mg 04/24/20 20:37 Reglan PO ACHS PRN Vomiting Ondansetron HCl 4 mg 04/24/20 19:32 04/25/20 04:10 Zofran IV 4 mg Q8H PRN Administration Nausea And Vomiting Ondansetron HCl 4 mg 04/24/20 20:37 Zofran Odt PO Q8HR PRN Vomiting Oxycodone/Acetaminophen 1 tab 04/24/20 20:37 Percocet 5/325 PO Q6H PRN Pain, Moderate (4-6) Pantoprazole Sodium 40 mg 04/25/20 10:00 Protonix PO QDAY KESHIA Sodium Chloride 10 ml 04/24/20 22:00 04/24/20 23:19 Sodium Chloride Flush Syringe 10 Ml IV 10 ml BID KESHIA Administration Sodium Chloride 10 ml 04/24/20 19:32 Sodium Chloride Flush Syringe 10 Ml IV PRN PRN LINE FLUSH Sucralfate 1 gm 04/24/20 22:00 04/24/20 23:19 Carafate PO 1 gm ACHS KESHIA Administration
[2020-04-25] MEDS: chlorproMAZINE 25 MG TAB PO SCH ×3 (08:09→20:58)
[2020-04-25] MEDS: SUCRALFATE 1 GM TAB PO SCH ×4 (08:09→21:47)
[2020-04-25] MEDS ORDERED: SODIUM CHLORIDE 0.9% 100 ML IV PRN (10:37)
[2020-04-25] MEDS ORDERED: ALBUMIN HUMAN 25% (25 GM/100 ML) INJ IV PRN (10:37)
--- NOTE | 2020-04-25 10:39 | Consultation ---
History of Present Illness - Reason for Consult Consult date: 04/25/20 end stage renal disease, accelerated hypertension Requesting physician: BRENDA MORFIN - History of Present Illness atient is a 34-year-old male that presents emergency room with multiple complaints. Patient states that he has fever, shortness of breath, nausea vomiting. Patient states he missed dialysis for 1 week. Patient states his symptoms are better with rest and worse with exertion. Patient denies vomiting blood this time. Patient denies diarrhea. Patient states that his fever, short ness of breath, nausea and vomiting started 3 days ago. Patient states that due to not feeling well he did not go to dialysis for 1 week. Patient denies chest pain. Patient denies body aches. Patient also complains of abdominal pain. Patient states abdominal pain is an 8 out of 10. Patient states is worse with movement and palpation. Patient states is better with rest. -: Sudden Location: abdomen Severity scale (0 -10): 8 Quality: stabbing Consistency: constant Improves with: rest Worsens with: movement, other Associated Symptoms: fever/chills, loss of appetite, malaise, nausea/vomiting, shortness of breath. denies: confusion, chest pain, cough, diaphoresis, headaches, rash, seizure, syncope, weakness Treatments Prior to Arrival: none ROS: Stated complaint: DIALYSIS/DIABETIC/ASTHMA Other details as noted in HPI Comment: All other systems reviewed and negative Constitutional: fever. denies: chills Eyes: denies: eye pain, eye discharge, vision change ENT: denies: ear pain, throat pain Respiratory: shortness of breath. denies: cough, wheezing Cardiovascular: denies: chest pain, palpitations Endocrine: no symptoms reported Gastrointestinal: abdominal pain, nausea, vomiting. denies: diarrhea Genitourinary: denies: urgency, dysuria Musculoskeletal: denies: back pain, joint swelling, arthralgia Skin: denies: rash, lesions Neurological: denies: headache, weakness, paresthesias Psychiatric: denies: anxiety, depression Hematological/Lymphatic: denies: easy bleeding, easy bruising - Past Medical History Previous Medical History?: Yes Hx Hypertension: Yes Hx Heart Attack/AMI: Yes Hx Congestive Heart Failure: Yes Hx Diabetes: Yes Hx Deep Vein Thrombosis: No Hx Pulmonary Embolism: No Hx Liver Disease: No Hx Renal Disease: No Hx Sickle Cell Disease: No Hx Kidney Stones: No Hx Asthma: Yes Hx COPD: No Hx Tuberculosis: No Hx HIV: No Additional medical history: Ulcerative esophagitis, Gastroparesis HD MWF - Surgical History Past Surgical History?: Yes Hx Coronary Stent: No Hx Pacemaker: No Hx Internal Defibrillator: No Hx Cholecystectomy: Yes Hx Appendectomy: Yes Additional Surgical History: right great toe removed, Right chest PERMA-CATH - Family History Family history: no significant - Social History Smoking Status: Never Smoker Substance Use Type: None Past History Past Medical History: diabetes, ESRD, hypertension, other (See HPI) Past Surgical History: appendectomy, Other (Dialysis access) Social history: single. denies: smoking, alcohol abuse Family history: diabetes, hypertension Medications and Allergies Allergies Allergy/AdvReac Type Severity Reaction Status Date / Time No Known Allergies Allergy Verified 04/24/20 15:27 Home Medications Medication Instructions Recorded Confirmed Last Taken Type chlorproMAZINE [Thorazine] 25 mg PO TID #20 tablet 02/09/20 04/25/20 2 Days Ago Rx ~04/14/20 Sucralfate [Carafate] 1 gm PO ACHS #120 tablet 03/05/20 04/25/20 2 Days Ago Rx ~04/14/20 Albuterol Sulfate [Albuterol 0.63% 0.63 mg IH Q4HR PRN #50 04/17/20 04/25/20 Unknown Rx NEBS] Dicyclomine [Bentyl] 10 mg PO QID PRN #30 capsule 04/17/20 04/25/20 Unknown Rx Insulin Detemir [Levemir VIAL] 0 unit SQ QHS #1 vial 04/17/20 04/25/20 Unknown Rx Lispro Insulin [HumaLOG] 5 unit SQ AC #1 vial 04/17/20 04/25/20 Unknown Rx Metoclopramide [Reglan TAB] 5 mg PO ACHS PRN #120 tablet 04/17/20 04/25/20 Unknown Rx Pantoprazole [Protonix TAB] 40 mg PO QDAY #30 tablet 04/17/20 04/25/20 Unknown Rx Sucralfate [Carafate] 1 gm PO Q6HR 30 Days #120 udc 04/17/20 04/25/20 Unknown Rx amLODIPine 10 mg PO DAILY #30 tablet 04/17/20 04/25/20 Unknown Rx carvediloL [Coreg] 25 mg PO BID #60 tablet 04/17/20 04/25/20 Unknown Rx carvediloL [Coreg] 25 mg PO BID 30 Days #60 tablet 04/17/20 04/25/20 Unknown Rx hydrALAZINE [Apresoline TAB] 100 mg PO Q8HR #90 tab 04/17/20 04/25/20 Unknown Rx oxyCODONE /ACETAMINOPHEN [Percocet 1 tab PO Q6H PRN #14 tablet 04/17/20 04/25/20 Unknown Rx 5/325 mg] Ondansetron [Zofran Odt] 4 mg PO Q8HR PRN #20 tab.rapdis 04/24/20 04/25/20 Unknown Rx Active Meds: Active Medications Acetaminophen (Tylenol) 650 mg PO Q4H PRN PRN Reason: Pain MILD(1-3)/Fever >100.5/LANZA Albumin Human (Alburx 25% (Albumin)) 25 gm IV BRENDAN PRN PRN Reason: Hypotension Albuterol (Proventil) 2.5 mg IH Q4HRT PRN PRN Reason: Shortness Of Breath Amlodipine Besylate (Amlodipine) 10 mg PO DAILY [facility] Last Admin: 04/24/20 23:45 Dose: Not Given Documented by: Carvedilol (Coreg) 25 mg PO BID [facility] Last Admin: 04/24/20 21:28 Dose: 25 mg Documented by: Chlorpromazine HCl (Thorazine) 25 mg PO TID [facility] Last Admin: 04/25/20 08:09 Dose: 25 mg Documented by: Dicyclomine HCl (Bentyl) 10 mg PO QID PRN PRN Reason: Pain, Moderate (4-6) Hydralazine HCl (Apresoline) 100 mg PO Q8HR [facility] Last Admin: 04/25/20 07:33 Dose: 100 mg Documented by: Hydralazine HCl (Apresoline) 10 mg IV Q6HR PRN PRN Reason: Hypertension Last Admin: 04/24/20 21:24 Dose: 10 mg Documented by: Ceftriaxone Sodium (Rocephin/Ns 2 Gm/100 Ml) 2 gm in 100 mls @ 200 mls/hr IV Q24HR [facility]; Protocol Last Admin: 04/24/20 20:30 Dose: 200 mls/hr Documented by: Azithromycin 500 mg/ Sodium (Chloride) 250 mls @ 250 mls/hr IV Q24HR [facility]; Protocol Last Admin: 04/24/20 23:19 Dose: 250 mls/hr Documented by: Sodium Chloride (Nacl 0.9%) 100 mls @ 999 mls/hr IV BRENDAN PRN PRN Reason: Hypotension Metoclopramide HCl (Reglan) 5 mg PO ACHS PRN PRN Reason: Vomiting Ondansetron HCl (Zofran) 4 mg IV Q8H PRN PRN Reason: Nausea And Vomiting Last Admin: 04/25/20 04:10 Dose: 4 mg Documented by: Ondansetron HCl (Zofran Odt) 4 mg PO Q8HR PRN PRN Reason: Vomiting Oxycodone/Acetaminophen (Percocet 5/325) 1 tab PO Q6H PRN PRN Reason: Pain, Moderate (4-6) Pantoprazole Sodium (Protonix) 40 mg PO QDAY KESHIA Sodium Chloride (Sodium Chloride Flush Syringe 10 Ml) 10 ml IV BID [facility] Last Admin: 04/24/20 23:19 Dose: 10 ml Documented by: Sodium Chloride (Sodium Chloride Flush Syringe 10 Ml) 10 ml IV PRN PRN PRN Reason: LINE FLUSH Sucralfate (Carafate) 1 gm PO ACHS [facility] Last Admin: 04/25/20 08:09 Dose: 1 gm Documented by: Exam - Vital Signs Vital signs: Vital Signs Temp Pulse Resp BP Pulse Ox 100.6 F H 100 H 20 208/119 98 04/24/20 15:34 04/24/20 15:34 04/24/20 15:34 04/24/20 15:34 04/24/20 15:34 - Physical Exam Narrative exam: General appearance: well-developed, well-nourished, appears stated age EENT: ATNC, PERRL Neck: Present: neck supple, trachea midline, Other (Right IJ PermCath in place). Absent: JVD/HJR, Masses Respiratory: Clear to Ascultation Heart: regular, normal heart rate Gastrointestinal: Present: normal, normoactive bowel sounds Integumentary: other (No edema) Results - Lab Results 04/24/20 17:36 04/24/20 17:36 Most recent lab results Calcium 9.4 mg/dL (8.4-10.2) 04/24/20 17:36 Magnesium 2.00 mg/dL (1.7-2.3) 04/24/20 17:36 Assessment and Plan Impression * End-stage renal disease on maintenance hemodialysis * Hyperkalemia * Nausea and vomiting. Possibly due to uremia * Hypertension * Diabetes * Noncompliance * Coronary artery disease * Anemia Recommendations * hd today * Hopefully his hyperkalemia will be corrected. * Schedule patient for hemodialysis again tomorrow and keep him on TTS schedule as outpatient * Adjust diet and meds for ESRD state * Hold phosphate binders for now because of his GI symptoms * Epogen with dialysis * Avoid nephrotoxins * Patient advised regarding compliance with dialysis treatments * Thank you very much for the consultation. Shall follow along with you
[2020-04-25] MEDS: PANTOPRAZOLE 40 MG TAB PO SCH (12:18)
[2020-04-25] MEDS: cefTRIAXone/NS 2 GM/100 ML 2 GM/100 ML BAG IV SCH ×2 (12:18→16:22)
[2020-04-25] MEDS: carvediloL 25 MG TAB PO SCH ×3 (12:18→21:47)
[2020-04-25] MEDS: amLODIPine 10 MG TAB PO SCH (12:18)
[2020-04-25] MEDS: AZITHROMYCIN 500 MG in SODIUM CHLORIDE 0.9% 250ML 250 ML IV SCH ×2 (12:21→17:09)
[2020-04-25] MEDS ORDERED: DEXTROSE 50% IN WATER (25GM) 50 ML SYRINGE IV PRN (12:28)
[2020-04-25 15:20] LABS: Basophils # (Auto) 0.1 K/mm3 (0.0-0.1); Basophils % (Auto) 0.6 % (0.0-1.8); Eosinophils # (Auto) 0.1 K/mm3 (0.0-0.4); Hematocrit 31.9 % (35.5-45.6); Hemoglobin 10.4 gm/dl (11.8-15.2); Lymphocytes # (Auto) 1.5 K/mm3 (1.2-5.4); Lymphocytes % (Auto) 15.6 % (13.4-35.0); Mean Corpuscular HGB Conc 33 % (32-34); Mean Corpuscular Volume 82 fl (84-94); Monocytes # (Auto) 1.2 K/mm3 (0.0-0.8); Monocytes % (Auto) 12.7 % (0.0-7.3); Platelet Count 432 K/mm3 (140-440); Red Blood Count 3.91 M/mm3 (3.65-5.03); Red Cell Distribution Width 18.5 % (13.2-15.2)
[2020-04-25 15:34] LABS: Calcium 8.2 mg/dL (8.4-10.2)
[2020-04-25] MEDS: hydrALAZINE 20 MG/1 ML INJ IV PRN (16:21)
[2020-04-25] MEDS ORDERED: SODIUM CHLORIDE*PRIMING MACHINE ONLY FOR DIALYSIS MC ONE (16:53)
[2020-04-25] MEDS: INSULIN LISPRO 100 UNIT/ML SUB-Q SCH ×2 (18:44→18:47)
[2020-04-26] MEDS: ONDANSETRON 4 MG/2 ML INJ IV PRN (00:11)
[2020-04-26] MEDS: hydrALAZINE 100 MG TAB PO SCH ×3 (05:44→22:58)
[2020-04-26] MEDS: INSULIN LISPRO 100 UNIT/ML SUB-Q SCH ×3 (09:08→18:27)
[2020-04-26] MEDS: SUCRALFATE 1 GM TAB PO SCH ×4 (09:08→22:58)
[2020-04-26] MEDS: chlorproMAZINE 25 MG TAB PO SCH ×3 (09:08→22:58)
--- NOTE | 2020-04-26 09:42 | Progress Note ---
Assessment and Plan Impression * End-stage renal disease on maintenance hemodialysis * Hyperkalemia * Nausea and vomiting. Possibly due to uremia * Hypertension * Diabetes * Noncompliance * Coronary artery disease * Anemia Recommendations * Schedule patient for hemodialysis on TTS schedule as outpatient * Adjust diet and meds for ESRD state * Hold phosphate binders for now because of his GI symptoms * Epogen with dialysis * Avoid nephrotoxins * Patient advised regarding compliance with dialysis treatments * ok to dc from renal standpoint Subjective Date of service: 04/26/20 Principal diagnosis: esrd Interval history: resting in bed today Objective - Exam Narrative Exam: General appearance: well-developed, well-nourished, appears stated age EENT: ATNC, PERRL Neck: Present: neck supple, trachea midline, Other (Right IJ PermCath in place). Absent: JVD/HJR, Masses Respiratory: Clear to Ascultation Heart: regular, normal heart rate Gastrointestinal: Present: normal, normoactive bowel sounds Integumentary: other (No edema) - Vital Signs Vital signs: Vital Signs - 12hr 04/25/20 04/25/20 04/25/20 21:47 22:00 22:54 Temperature Pulse Rate 89 Respiratory Rate Respiratory 17 Rate [Abdomen] Blood Pressure 163/89 O2 Sat by Pulse 98 Oximetry 04/25/20 04/26/20 23:00 05:32 Temperature 98.2 F Pulse Rate 81 Respiratory 17 20 Rate Respiratory Rate [Abdomen] Blood Pressure 164/90 O2 Sat by Pulse 98 Oximetry - Lab 04/25/20 15:04 04/25/20 15:04 Most recent lab results Calcium 8.2 mg/dL (8.4-10.2) L 04/25/20 15:04 Magnesium 2.00 mg/dL (1.7-2.3) 04/24/20 17:36 Medications & Allergies - Medications Allergies/Adverse Reactions: Allergies No Known Allergies Allergy (Verified 04/24/20 15:27) Home Medications: Home Medications Medication Instructions Recorded Confirmed Last Taken Type chlorproMAZINE [Thorazine] 25 mg PO TID #20 tablet 02/09/20 04/25/20 2 Days Ago Rx ~04/14/20 Sucralfate [Carafate] 1 gm PO ACHS #120 tablet 03/05/20 04/25/20 2 Days Ago Rx ~04/14/20 Albuterol Sulfate [Albuterol 0.63% 0.63 mg IH Q4HR PRN #50 04/17/20 04/25/20 Unknown Rx NEBS] Dicyclomine [Bentyl] 10 mg PO QID PRN #30 capsule 04/17/20 04/25/20 Unknown Rx Insulin Detemir [Levemir VIAL] 0 unit SQ QHS #1 vial 04/17/20 04/25/20 Unknown Rx Lispro Insulin [HumaLOG] 5 unit SQ AC #1 vial 04/17/20 04/25/20 Unknown Rx Metoclopramide [Reglan TAB] 5 mg PO ACHS PRN #120 tablet 04/17/20 04/25/20 Unknown Rx Pantoprazole [Protonix TAB] 40 mg PO QDAY #30 tablet 04/17/20 04/25/20 Unknown Rx Sucralfate [Carafate] 1 gm PO Q6HR 30 Days #120 udc 04/17/20 04/25/20 Unknown Rx amLODIPine 10 mg PO DAILY #30 tablet 04/17/20 04/25/20 Unknown Rx carvediloL [Coreg] 25 mg PO BID #60 tablet 04/17/20 04/25/20 Unknown Rx carvediloL [Coreg] 25 mg PO BID 30 Days #60 tablet 04/17/20 04/25/20 Unknown Rx hydrALAZINE [Apresoline TAB] 100 mg PO Q8HR #90 tab 04/17/20 04/25/20 Unknown Rx oxyCODONE /ACETAMINOPHEN [Percocet 1 tab PO Q6H PRN #14 tablet 04/17/20 04/25/20 Unknown Rx 5/325 mg] Ondansetron [Zofran Odt] 4 mg PO Q8HR PRN #20 tab.rapdis 04/24/20 04/25/20 Unknown Rx Active Medications: Generic Name Dose Route Start Last Admin Trade Name Freq PRN Reason Stop Dose Admin Acetaminophen 650 mg 04/24/20 19:32 Tylenol PO Q4H PRN Pain MILD(1-3)/Fever >100.5/LANZA Albumin Human 25 gm 04/25/20 10:37 Alburx 25% (Albumin) IV BRENDAN PRN Hypotension Albuterol 2.5 mg 04/24/20 19:32 Proventil IH Q4HRT PRN Shortness Of Breath Amlodipine Besylate 10 mg 04/24/20 20:37 04/25/20 12:18 Amlodipine PO Not Given DAILY [facility] Azithromycin 500 mg 04/26/20 10:00 Zithromax PO 04/28/20 10:01 QDAY [facility] Carvedilol 25 mg 04/24/20 22:00 04/25/20 21:47 Coreg PO Not Given BID [facility] Chlorpromazine HCl 25 mg 04/25/20 08:00 04/26/20 09:08 Thorazine PO 25 mg TID KESHIA Administration Dextrose 50 ml 04/25/20 12:28 D50w (25gm) Syringe IV Q30MIN PRN Hypoglycemia Protocol Dicyclomine HCl 10 mg 04/24/20 20:37 Bentyl PO QID PRN Pain, Moderate (4-6) Hydralazine HCl 100 mg 04/24/20 20:37 04/26/20 05:44 Apresoline PO 100 mg Q8HR KESHIA Administration Hydralazine HCl 10 mg 04/24/20 20:39 04/25/20 16:21 Apresoline IV 10 mg Q6HR PRN Administration Hypertension Ceftriaxone Sodium 2 gm in 100 mls @ 200 mls/hr 04/24/20 19:32 04/25/20 16:22 Rocephin/Ns 2 Gm/100 Ml IV 200 mls/hr Q24HR KESHIA Administration Protocol Sodium Chloride 100 mls @ 999 mls/hr 04/25/20 10:37 Nacl 0.9% IV BRENDAN PRN Hypotension Insulin Human Lispro 0 unit 04/25/20 16:30 04/26/20 09:08 Humalog SUB-Q 3 unit AC [facility] Administration Protocol Metoclopramide HCl 5 mg 04/24/20 20:37 04/25/20 21:46 Reglan PO 5 mg ACHS PRN Administration Vomiting Ondansetron HCl 4 mg 04/24/20 19:32 04/26/20 00:11 Zofran IV 4 mg Q8H PRN Administration Nausea And Vomiting Ondansetron HCl 4 mg 04/24/20 20:37 Zofran Odt PO Q8HR PRN Vomiting Oxycodone/Acetaminophen 1 tab 04/24/20 20:37 Percocet 5/325 PO Q6H PRN Pain, Moderate (4-6) Pantoprazole Sodium 40 mg 04/25/20 10:00 04/25/20 12:18 Protonix PO Not Given QDAY KESHIA Sodium Chloride 10 ml 04/24/20 22:00 04/25/20 21:08 Sodium Chloride Flush Syringe 10 Ml IV 10 ml BID KESHIA Administration Sodium Chloride 10 ml 04/24/20 19:32 Sodium Chloride Flush Syringe 10 Ml IV PRN PRN LINE FLUSH Sucralfate 1 gm 04/24/20 22:00 04/26/20 09:08 Carafate PO 1 gm ACHS KESHIA Administration
[2020-04-26] MEDS: amLODIPine 10 MG TAB PO SCH (12:02)
[2020-04-26] MEDS: PANTOPRAZOLE 40 MG TAB PO SCH (12:03)
[2020-04-26] MEDS: carvediloL 25 MG TAB PO SCH ×2 (12:03→22:58)
[2020-04-26] MEDS: cefTRIAXone/NS 2 GM/100 ML 2 GM/100 ML BAG IV SCH ×2 (12:04→18:28)
[2020-04-26] MEDS: AZITHROMYCIN 250 MG TAB PO SCH (12:07)
[2020-04-26] MEDS ORDERED: SODIUM CHLORIDE*PRIMING MACHINE ONLY FOR DIALYSIS MC ONE (15:08)
--- NOTE | 2020-04-26 15:27 | Progress Note ---
Assessment and Plan Assessment and plan: --Negative for COVID-19 --Possible pneumonia Current Visit: Yes Status: Acute Patient had a low-grade fever , shortness of breath Leukocytosis , left lung atelectasis on CT abdomen and pelvis Symptoms improved with antibiotics and supportive care Oxygen titrate O2 sats to more than 90% --ESRD (end stage renal disease) Current Visit: Yes Status: Acute HD per schedule TTS Nephrology following --Accelerated hypertension Current Visit: Yes Status: Acute Monitor blood pressure every shift, resume prehospital antihypertensive therapy, IV hydralazine every 6 hours as needed for systolic blood pressure greater than or equal to 155 --SIRS (systemic inflammatory response syndrome) Current Visit: Yes Status: Acute Continue empiric IV antibiotic therapy, follow cultures --Fluid overload Current Visit: Yes Status: Acute Dialysis as per renal team, monitor urine output every shift, monitor fluid balance. --Type 2 diabetes mellitus; Current Visit: Yes Status: Acute Accu-Chek sliding scale coverage ADA diet insulin as needed -- DVT prophylaxis Current Visit: Yes Status: Acute SCD to bilateral lower extremities while in bed, patient is ambulatory. Disposition; possible discharge in 1 to 2 days if stable History Interval history: Seen and examined the patient at the bedside this morning Patient's chart and medications reviewed Isolation precautions, PPE protocols followed Patient is negative for COVID Patient feels better no new complaints Vital signs noted Hospitalist Physical - Constitutional Vitals: Temp Pulse Resp BP Pulse Ox 98.2 F 81 20 164/90 98 04/26/20 05:32 04/26/20 05:32 04/26/20 05:32 04/26/20 05:32 04/26/20 05:32 General appearance: Present: no acute distress, well-nourished - EENT Eyes: Present: PERRL, EOM intact - Neck Neck: Present: supple, normal ROM - Respiratory Respiratory effort: normal Respiratory: bilateral: diminished, rhonchi, negative: rales, wheezing - Cardiovascular Rhythm: regular Heart Sounds: Present: S1 & S2 - Extremities Extremities: no ischemia, No edema - Abdominal General gastrointestinal: soft, non-tender, non-distended, normal bowel sounds - Integumentary Integumentary: Present: clear, warm - Psychiatric Psychiatric: appropriate mood/affect, cooperative - Neurologic Neurologic: moves all extremities Results - Labs CBC & Chem 7: 04/25/20 15:04 04/25/20 15:04 Labs: Laboratory Last Values WBC 9.6 K/mm3 (4.5-11.0) 04/25/20 15:04 RBC 3.91 M/mm3 (3.65-5.03) 04/25/20 15:04 Hgb 10.4 gm/dl (11.8-15.2) L 04/25/20 15:04 Hct 31.9 % (35.5-45.6) L 04/25/20 15:04 MCV 82 fl (84-94) L 04/25/20 15:04 MCH 27 pg (28-32) L 04/25/20 15:04 MCHC 33 % (32-34) 04/25/20 15:04 RDW 18.5 % (13.2-15.2) H 04/25/20 15:04 Plt Count 432 K/mm3 (140-440) 04/25/20 15:04 Lymph % (Auto) 15.6 % (13.4-35.0) 04/25/20 15:04 Ray % (Auto) 12.7 % (0.0-7.3) H 04/25/20 15:04 Eos % (Auto) 1.0 % (0.0-4.3) 04/25/20 15:04 Baso % (Auto) 0.6 % (0.0-1.8) 04/25/20 15:04 Lymph # 1.5 K/mm3 (1.2-5.4) 04/25/20 15:04 Ray # 1.2 K/mm3 (0.0-0.8) H 04/25/20 15:04 Eos # 0.1 K/mm3 (0.0-0.4) 04/25/20 15:04 Baso # 0.1 K/mm3 (0.0-0.1) 04/25/20 15:04 Seg Neutrophils % 70.1 % (40.0-70.0) H 04/25/20 15:04 Seg Neutrophils # 6.7 K/mm3 (1.8-7.7) 04/25/20 15:04 Sodium 139 mmol/L (137-145) 04/25/20 15:04 Potassium 3.4 mmol/L (3.6-5.0) L 04/25/20 15:04 Chloride 93.6 mmol/L (98-107) L 04/25/20 15:04 Carbon Dioxide 30 mmol/L (22-30) 04/25/20 15:04 Anion Gap 19 mmol/L 04/25/20 15:04 BUN 30 mg/dL (9-20) H 04/25/20 15:04 Creatinine 8.2 mg/dL (0.8-1.5) H 04/25/20 15:04 Estimated GFR 9 ml/min 04/25/20 15:04 BUN/Creatinine Ratio 4 % 04/25/20 15:04 Glucose 183 mg/dL (75-100) H 04/25/20 15:04 POC Glucose 167 (70-105) H 04/26/20 08:01 Calcium 8.2 mg/dL (8.4-10.2) L 04/25/20 15:04 Magnesium 2.00 mg/dL (1.7-2.3) 04/24/20 17:36 Total Bilirubin 0.50 mg/dL (0.1-1.2) 04/24/20 17:36 AST 14 units/L (5-40) 04/24/20 17:36 ALT 10 units/L (7-56) 04/24/20 17:36 Alkaline Phosphatase 113 units/L (35-129) 04/24/20 17:36 Total Creatine Kinase 305 units/L (55-170) H 04/24/20 17:36 Total Protein 7.5 g/dL (6.3-8.2) 04/24/20 17:36 Albumin 3.8 g/dL (3.9-5) L 04/24/20 17:36 Albumin/Globulin Ratio 1.0 % 04/24/20 17:36 Lipase 30 units/L (13-60) 04/24/20 17:36 Coronavirus (PCR) Negative (Negative) 04/25/20 Unknown Microbiology: Microbiology 04/24/20 19:54 Peripheral/Venous Blood Culture - Preliminary NO GROWTH AFTER 24 HOURS 04/24/20 19:52 Peripheral/Venous Blood Culture - Preliminary NO GROWTH AFTER 24 HOURS Perez/IV: Voiding Method Toilet IV Catheter Type [Right Chest] INT / Saline Lock Active Medications - Current Medications Current Medications: Generic Name Dose Route Start Last Admin Trade Name Freq PRN Reason Stop Dose Admin Acetaminophen 650 mg 04/24/20 19:32 Tylenol PO Q4H PRN Pain MILD(1-3)/Fever >100.5/LANZA Albumin Human 25 gm 04/25/20 10:37 Alburx 25% (Albumin) IV BRENDAN PRN Hypotension Albuterol 2.5 mg 04/24/20 19:32 Proventil IH Q4HRT PRN Shortness Of Breath Amlodipine Besylate 10 mg 04/24/20 20:37 04/26/20 12:02 Amlodipine PO Not Given DAILY [facility] Azithromycin 500 mg 04/26/20 10:00 04/26/20 12:07 Zithromax PO 04/28/20 10:01 Not Given QDAY [facility] Carvedilol 25 mg 04/24/20 22:00 04/26/20 12:03 Coreg PO Not Given BID [facility] Chlorpromazine HCl 25 mg 04/25/20 08:00 04/26/20 09:08 Thorazine PO 25 mg TID KESHIA Administration Dextrose 50 ml 04/25/20 12:28 D50w (25gm) Syringe IV Q30MIN PRN Hypoglycemia Protocol Dicyclomine HCl 10 mg 04/24/20 20:37 Bentyl PO QID PRN Pain, Moderate (4-6) Hydralazine HCl 100 mg 04/24/20 20:37 04/26/20 05:44 Apresoline PO 100 mg Q8HR KESHIA Administration Hydralazine HCl 10 mg 04/24/20 20:39 04/25/20 16:21 Apresoline IV 10 mg Q6HR PRN Administration Hypertension Ceftriaxone Sodium 2 gm in 100 mls @ 200 mls/hr 04/24/20 19:32 04/26/20 12:04 Rocephin/Ns 2 Gm/100 Ml IV Not Given Q24HR [facility] Protocol Sodium Chloride 100 mls @ 999 mls/hr 04/25/20 10:37 Nacl 0.9% IV BRENDAN PRN Hypotension Insulin Human Lispro 0 unit 04/25/20 16:30 04/26/20 12:08 Humalog SUB-Q Not Given AC [facility] Protocol Metoclopramide HCl 5 mg 04/24/20 20:37 04/25/20 21:46 Reglan PO 5 mg ACHS PRN Administration Vomiting Ondansetron HCl 4 mg 04/24/20 19:32 04/26/20 00:11 Zofran IV 4 mg Q8H PRN Administration Nausea And Vomiting Ondansetron HCl 4 mg 04/24/20 20:37 Zofran Odt PO Q8HR PRN Vomiting Oxycodone/Acetaminophen 1 tab 04/24/20 20:37 Percocet 5/325 PO Q6H PRN Pain, Moderate (4-6) Pantoprazole Sodium 40 mg 04/25/20 10:00 04/26/20 12:03 Protonix PO Not Given QDAY KESHIA Sodium Chloride 10 ml 04/24/20 22:00 04/26/20 12:06 Sodium Chloride Flush Syringe 10 Ml IV Not Given BID KESHIA Sodium Chloride 10 ml 04/24/20 19:32 Sodium Chloride Flush Syringe 10 Ml IV PRN PRN LINE FLUSH Sucralfate 1 gm 04/24/20 22:00 04/26/20 12:07 Carafate PO Not Given ACHS KESHIA
[2020-04-27] MEDS: hydrALAZINE 100 MG TAB PO SCH ×2 (06:08→13:57)
[2020-04-27] MEDS: chlorproMAZINE 25 MG TAB PO SCH ×2 (08:30→14:00)
[2020-04-27] MEDS: SUCRALFATE 1 GM TAB PO SCH ×3 (08:30→16:48)
[2020-04-27] MEDS: INSULIN LISPRO 100 UNIT/ML SUB-Q SCH ×3 (09:14→17:16)
[2020-04-27] MEDS: cefTRIAXone/NS 2 GM/100 ML 2 GM/100 ML BAG IV SCH (09:15)
[2020-04-27] MEDS: AZITHROMYCIN 250 MG TAB PO SCH (09:15)
[2020-04-27] MEDS: PANTOPRAZOLE 40 MG TAB PO SCH (09:15)
[2020-04-27] MEDS: amLODIPine 10 MG TAB PO SCH (09:16)
[2020-04-27] MEDS: carvediloL 25 MG TAB PO SCH (09:17)
--- NOTE | 2020-04-27 11:57 | Progress Note ---
Assessment and Plan Impression * End-stage renal disease on maintenance hemodialysis * Hyperkalemia * Nausea and vomiting. Possibly due to uremia * Hypertension * Diabetes * Noncompliance * Coronary artery disease * Anemia Recommendations * Schedule patient for hemodialysis on TTS schedule as outpatient * Adjust diet and meds for ESRD state * Hold phosphate binders for now because of his GI symptoms * Epogen with dialysis * Avoid nephrotoxins * Patient advised regarding compliance with dialysis treatments * ok to dc from renal standpoint Subjective Date of service: 04/27/20 Principal diagnosis: esrd Interval history: resting in bed today Objective - Exam Narrative Exam: General appearance: well-developed, well-nourished, appears stated age EENT: ATNC, PERRL Neck: Present: neck supple, trachea midline, Other (Right IJ PermCath in place). Absent: JVD/HJR, Masses Respiratory: Clear to Ascultation Heart: regular, normal heart rate Gastrointestinal: Present: normal, normoactive bowel sounds Integumentary: other (No edema) - Vital Signs Vital signs: Vital Signs - 12hr 04/27/20 04/27/20 04/27/20 05:48 09:16 09:17 Temperature 98.0 F Pulse Rate 74 74 74 Respiratory 18 Rate Blood Pressure 137/77 140/80 140/80 O2 Sat by Pulse 100 Oximetry - Lab 04/25/20 15:04 04/25/20 15:04 Most recent lab results Calcium 8.2 mg/dL (8.4-10.2) L 04/25/20 15:04 Magnesium 2.00 mg/dL (1.7-2.3) 04/24/20 17:36 Medications & Allergies - Medications Allergies/Adverse Reactions: Allergies No Known Allergies Allergy (Verified 04/24/20 15:27) Home Medications: Home Medications Medication Instructions Recorded Confirmed Last Taken Type chlorproMAZINE [Thorazine] 25 mg PO TID #20 tablet 02/09/20 04/25/20 2 Days Ago Rx ~04/14/20 Sucralfate [Carafate] 1 gm PO ACHS #120 tablet 03/05/20 04/25/20 2 Days Ago Rx ~04/14/20 Albuterol Sulfate [Albuterol 0.63% 0.63 mg IH Q4HR PRN #50 04/17/20 04/25/20 Unknown Rx NEBS] Dicyclomine [Bentyl] 10 mg PO QID PRN #30 capsule 04/17/20 04/25/20 Unknown Rx Insulin Detemir [Levemir VIAL] 0 unit SQ QHS #1 vial 04/17/20 04/25/20 Unknown Rx Lispro Insulin [HumaLOG] 5 unit SQ AC #1 vial 04/17/20 04/25/20 Unknown Rx Metoclopramide [Reglan TAB] 5 mg PO ACHS PRN #120 tablet 04/17/20 04/25/20 Unknown Rx Pantoprazole [Protonix TAB] 40 mg PO QDAY #30 tablet 04/17/20 04/25/20 Unknown Rx Sucralfate [Carafate] 1 gm PO Q6HR 30 Days #120 udc 04/17/20 04/25/20 Unknown Rx amLODIPine 10 mg PO DAILY #30 tablet 04/17/20 04/25/20 Unknown Rx carvediloL [Coreg] 25 mg PO BID #60 tablet 04/17/20 04/25/20 Unknown Rx carvediloL [Coreg] 25 mg PO BID 30 Days #60 tablet 04/17/20 04/25/20 Unknown Rx hydrALAZINE [Apresoline TAB] 100 mg PO Q8HR #90 tab 04/17/20 04/25/20 Unknown Rx oxyCODONE /ACETAMINOPHEN [Percocet 1 tab PO Q6H PRN #14 tablet 04/17/20 04/25/20 Unknown Rx 5/325 mg] Ondansetron [Zofran Odt] 4 mg PO Q8HR PRN #20 tab.rapdis 04/24/20 04/25/20 Unknown Rx Active Medications: Generic Name Dose Route Start Last Admin Trade Name Freq PRN Reason Stop Dose Admin Acetaminophen 650 mg 04/24/20 19:32 Tylenol PO Q4H PRN Pain MILD(1-3)/Fever >100.5/LANZA Albumin Human 25 gm 04/25/20 10:37 Alburx 25% (Albumin) IV BRENDAN PRN Hypotension Albuterol 2.5 mg 04/24/20 19:32 Proventil IH Q4HRT PRN Shortness Of Breath Amlodipine Besylate 10 mg 04/24/20 20:37 04/27/20 09:16 Amlodipine PO 10 mg DAILY KESHIA Administration Azithromycin 500 mg 04/26/20 10:00 04/27/20 09:15 Zithromax PO 04/28/20 10:01 500 mg QDAY KESHIA Administration Carvedilol 25 mg 04/24/20 22:00 04/27/20 09:17 Coreg PO 25 mg BID KESHIA Administration Chlorpromazine HCl 25 mg 04/25/20 08:00 04/27/20 08:30 Thorazine PO 25 mg TID KESHIA Administration Dextrose 50 ml 04/25/20 12:28 D50w (25gm) Syringe IV Q30MIN PRN Hypoglycemia Protocol Dicyclomine HCl 10 mg 04/24/20 20:37 Bentyl PO QID PRN Pain, Moderate (4-6) Hydralazine HCl 100 mg 04/24/20 20:37 04/27/20 06:08 Apresoline PO 100 mg Q8HR KESHIA Administration Hydralazine HCl 10 mg 04/24/20 20:39 04/25/20 16:21 Apresoline IV 10 mg Q6HR PRN Administration Hypertension Ceftriaxone Sodium 2 gm in 100 mls @ 200 mls/hr 04/24/20 19:32 04/27/20 09:15 Rocephin/Ns 2 Gm/100 Ml IV 200 mls/hr Q24HR KESHIA Administration Protocol Sodium Chloride 100 mls @ 999 mls/hr 04/25/20 10:37 Nacl 0.9% IV BRENDAN PRN Hypotension Insulin Human Lispro 0 unit 04/25/20 16:30 04/27/20 09:14 Humalog SUB-Q 6 unit AC KESHIA Administration Protocol Metoclopramide HCl 5 mg 04/24/20 20:37 04/25/20 21:46 Reglan PO 5 mg ACHS PRN Administration Vomiting Ondansetron HCl 4 mg 04/24/20 19:32 04/26/20 00:11 Zofran IV 4 mg Q8H PRN Administration Nausea And Vomiting Ondansetron HCl 4 mg 04/24/20 20:37 Zofran Odt PO Q8HR PRN Vomiting Oxycodone/Acetaminophen 1 tab 04/24/20 20:37 Percocet 5/325 PO Q6H PRN Pain, Moderate (4-6) Pantoprazole Sodium 40 mg 04/25/20 10:00 04/27/20 09:15 Protonix PO 40 mg QDAY KESHIA Administration Sodium Chloride 10 ml 04/24/20 22:00 04/27/20 09:15 Sodium Chloride Flush Syringe 10 Ml IV 10 ml BID KESHIA Administration Sodium Chloride 10 ml 04/24/20 19:32 Sodium Chloride Flush Syringe 10 Ml IV PRN PRN LINE FLUSH Sucralfate 1 gm 04/24/20 22:00 04/27/20 08:30 Carafate PO 1 gm ACHS KESHIA Administration
--- NOTE | 2020-04-27 15:11 | Discharge Summary ---
Providers - Providers Date of Admission: 04/24/20 19:32 Date of discharge: 04/27/20 Attending physician: JIMBO DOWLING [facility] Condition: Stable Hospital course: --Negative for COVID-19 --Possible pneumonia Current Visit: Yes Status: Acute Patient had a low-grade fever , shortness of breath Leukocytosis , left lung atelectasis on CT abdomen and pelvis Symptoms improved with antibiotics and supportive care Oxygen titrate O2 sats to more than 90% --ESRD (end stage renal disease) Current Visit: Yes Status: Acute HD per schedule TTS Nephrology following --Accelerated hypertension Current Visit: Yes Status: Acute Monitor blood pressure every shift, resume prehospital antihypertensive therapy, IV hydralazine every 6 hours as needed for systolic blood pressure greater than or equal to 155 --SIRS (systemic inflammatory response syndrome) Current Visit: Yes Status: Acute Continue empiric IV antibiotic therapy, follow cultures --Fluid overload Current Visit: Yes Status: Acute Dialysis as per renal team, monitor urine output every shift, monitor fluid balance. --Type 2 diabetes mellitus; Current Visit: Yes Status: Acute Accu-Chek sliding scale coverage ADA diet insulin as needed -- DVT prophylaxis Current Visit: Yes Status: Acute SCD to bilateral lower extremities while in bed, patient is ambulatory. Disposition; possible discharge in 1 to 2 days if stable Disposition: DC-01 TO HOME OR SELFCARE Time spent for discharge: 32 alen Core Measure Documentation - Palliative Care Palliative Care/ Comfort Measures: Not Applicable - Core Measures Any of the following diagnoses?: none Exam - Constitutional Vitals: Temp Pulse Resp BP Pulse Ox 98.2 F 76 16 146/79 96 04/27/20 10:52 04/27/20 10:52 04/27/20 10:52 04/27/20 10:52 04/27/20 10:52 General appearance: Present: no acute distress, well-nourished - EENT Eyes: Present: PERRL, EOM intact - Neck Neck: Present: supple, normal ROM - Respiratory Respiratory effort: normal Respiratory: bilateral: diminished, negative: rales, rhonchi, wheezing - Cardiovascular Rhythm: regular Heart Sounds: Present: S1 & S2 - Extremities Extremities: no ischemia, No edema - Abdominal General gastrointestinal: Present: soft, non-tender, non-distended, normal bowel sounds - Integumentary Integumentary: Present: clear, warm - Musculoskeletal Musculoskeletal: strength equal bilaterally - Psychiatric Psychiatric: appropriate mood/affect, cooperative - Neurologic Neurologic: moves all extremities Plan Activity: no restrictions Diet: renal Additional Instructions: Follow renal/hemodialysis per schedule TTS. Advised to follow GI as needed. If you have any fever shortness of breath or cough contact MD or go to emergency room Follow up with: ARVADA ABRAMSARGENTS MD MACRINA [Primary Care Provider] - 7 Days CAT BOWLES MD [Staff Physician] - 7 Days Prescriptions: Azithromycin [Zithromax Z-DARCY] 0 mg PO DAILY #1 tab
[2020-04-27 17:39] VITALS: BP 124/74
== END 2020-04-27 18:22 | disposition home or self-care (01) | DRG 193 ==
LOC: ED 15:14 → 3A 19:32
PROVIDERS: ADMIT Internal Medicine; ATTEND Internal Medicine
PROC: 5A1D70Z Performance of Urinary Filtration, Intermittent, Less than 6 Hours Per Day (ICD-10-PCS; principal; 2020-04-25)
PROC: 5A1D70Z Performance of Urinary Filtration, Intermittent, Less than 6 Hours Per Day (ICD-10-PCS; 2020-04-26)
DX: J18.9 Pneumonia, unspecified organism (principal); N18.6 End stage renal disease; J96.01 Acute respiratory failure with hypoxia; R65.11 Systemic inflammatory response syndrome (SIRS) of non-infectious origin with acute organ dysfunction; I16.1 Hypertensive emergency; I13.2 Hypertensive heart and chronic kidney disease with heart failure and with stage 5 chronic kidney disease, or end stage renal disease; E87.70 Fluid overload, unspecified; E11.65 Type 2 diabetes mellitus with hyperglycemia; E11.22 Type 2 diabetes mellitus with diabetic chronic kidney disease; I50.9 Heart failure, unspecified; Z99.2 Dependence on renal dialysis; Z79.4 Long term (current) use of insulin; J45.909 Unspecified asthma, uncomplicated; Z90.49 Acquired absence of other specified parts of digestive tract; E11.43 Type 2 diabetes mellitus with diabetic autonomic (poly)neuropathy; K31.84 Gastroparesis; K29.00 Acute gastritis without bleeding; Z83.3 Family history of diabetes mellitus; Z82.49 Family history of ischemic heart disease and other diseases of the circulatory system; E87.79 Other fluid overload; E87.5 Hyperkalemia; I25.10 Atherosclerotic heart disease of native coronary artery without angina pectoris; D64.9 Anemia, unspecified; Z03.818 Encounter for observation for suspected exposure to other biological agents ruled out; Z91.15 Patient's noncompliance with renal dialysis
CPT/HCPCS: 36415; 71045; 74176; 80048; 80053; 82550; 82962; 83690; 83735; 85025; 87040; 94760; 96372; G0378; J0360; J0456; J0696; J1170; J1815; J2405; J7030; J7050; Q0161; U0003-CS

== ENCOUNTER 2020-07-29 14:39 | Inpatient (IN) | payer MEDICARE ==
[2020-07-29 15:53] LABS: Bacteria,Urine 1+ /HPF (Negative); Bilirubin,Urine NEG (Negative); Blood,Urine SM (Negative); Color,Urine Yellow (Yellow); Urobilinogen,Urine < 2.0 mg/dL (<2.0)
[2020-07-29 15:54] LABS: Protein,Urine >500 mg/dL (Negative)
[2020-07-29 15:55] LABS: Amphetamine Screen,Urine PRESUMPTIVE NEGATIVE; Benzodiazepines Screen,Urine PRESUMPTIVE NEGATIVE; Cannabinoid Screen,Urine PRESUMPTIVE NEGATIVE; Cocaine Screen,Urine PRESUMPTIVE NEGATIVE; Methadone Screen,Urine PRESUMPTIVE NEGATIVE; Opiate Screen,Urine PRESUMPTIVE NEGATIVE
[2020-07-29 16:18] LABS: Hematocrit 23.2 % (35.5-45.6); Mean Corpuscular HGB Conc 30 % (32-34); Mean Corpuscular Volume 80 fl (84-94); Platelet Count 380 K/mm3 (140-440)
[2020-07-29 16:29] LABS: Red Cell Distribution Width 21.7 % (13.2-15.2)
[2020-07-29 16:33] LABS: Calcium 7.5 mg/dL (8.4-10.2)
[2020-07-29 17:07] LABS: Anisocytosis 1+; Basophils % (Manual) 0 % (0.0-1.8); Hypochromasia 1+; Total Cells Counted 100
[2020-07-29] MEDS ORDERED: ONDANSETRON 4 MG/2 ML INJ IV ONE (20:50)
[2020-07-29] MEDS ORDERED: INSULIN REGULAR, HUMAN 100 UNIT/ML 3ML VIAL IV ONE (20:50)
[2020-07-29] MEDS ORDERED: DEXTROSE 50% IN WATER (25GM) 50 ML SYRINGE IV ONE (20:50)
[2020-07-29] MEDS ORDERED: PANTOPRAZOLE 40 MG INJ IV ONE (20:50)
[2020-07-29] MEDS ORDERED: SODIUM BICARB 8.4% 50 MEQ/50 ML SYRINGE IV ONE (20:50)
[2020-07-29] MEDS ORDERED: hydrALAZINE 20 MG/1 ML INJ IV ONE (21:00)
[2020-07-29] MEDS ORDERED: cefTRIAXone/NS 1 GM/50 ML 1 GM/50 ML BAG IV ONE (21:46)
--- NOTE | 2020-07-29 22:16 | Emergency Department Report ---
ED General Adult HPI - General Chief complaint: Medical Clearance Stated complaint: VOMIT/DEPRESSION Time Seen by Provider: 07/29/20 20:44 Source: patient Mode of arrival: Ambulatory Limitations: No Limitations - History of Present Illness Initial comments: Patient is a 34-year-old F Polish male with a past medical history of hypertension end-stage renal disease and diabetes as well as gastroparesis who is well-known to our department. Patient has a history of missing dialysis and coming in with gastroparesis and elevated blood pressure. Patient has not had dialysis and 1 week secondary to depression. States he was not actually trying to kill himself he was just depressed and lack of motivation. He has been vomiting for the last 24 hours with epigastric pain. There was some blood streaks in his vomit which is normal for this patient. He denies fevers chills cough cold or congestion. - Related Data Home Medications Medication Instructions Recorded Confirmed Last Taken Metoclopramide 5 mg PO ACHS PRN 07/11/20 07/20/20 Unknown Previous Rx's Medication Instructions Recorded Last Taken Type Albuterol Sulfate [Albuterol 0.63% 0.63 mg IH Q4HR PRN #50 04/17/20 05/30/20 Rx NEBS] Lispro Insulin [HumaLOG] 5 unit SQ AC #1 vial 04/17/20 06/15/20 Rx Apixaban [Eliquis] 1 tab PO BID #60 tablet 07/17/20 07/22/20 08:00 Rx Insulin Detemir [Levemir VIAL] 10 unit SQ QHS 30 Days vial 07/17/20 07/21/20 20:00 Rx Insulin Glargine [Lantus VIAL] 10 units SUB-Q QHS units 07/17/20 07/21/20 20:00 Rx Metoclopramide [Reglan TAB] 5 mg PO ACHS PRN #120 tablet 07/17/20 07/22/20 08:00 Rx Pantoprazole [Protonix TAB] 40 mg PO DAILY #60 tablet 07/17/20 07/22/20 08:00 Rx amLODIPine 10 mg PO DAILY #30 tablet 07/17/20 07/22/20 08:00 Rx carvediloL [Coreg] 25 mg PO BID 30 Days #60 tablet 07/17/20 07/22/20 08:00 Rx cloNIDine [Catapres] 0.1 mg PO BID #60 tablet 07/17/20 07/22/20 08:00 Rx hydrALAZINE [Apresoline TAB] 100 mg PO Q8HR #90 tab 07/17/20 07/22/20 08:00 Rx Allergies Allergy/AdvReac Type Severity Reaction Status Date / Time No Known Allergies Allergy Verified 07/20/20 15:05 ED Review of Systems ROS: Stated complaint: VOMIT/DEPRESSION Other details as noted in HPI Comment: All other systems reviewed and negative ED Past Medical Hx - Past Medical History Hx Hypertension: Yes Hx Heart Attack/AMI: Yes (NON-STEMI ELEVATED MYOCARDIAL INFARCTION) Hx Congestive Heart Failure: Yes Hx Diabetes: Yes (TYPE 11) Hx Deep Vein Thrombosis: No Hx Pulmonary Embolism: No Hx GERD: Yes Hx Liver Disease: No Hx Renal Disease: No Hx Sickle Cell Disease: No Hx Arthritis: No Hx Kidney Stones: No Hx Asthma: Yes Hx COPD: Yes Hx Tuberculosis: No Hx HIV: No Additional medical history: Ulcerative esophagitis, Gastroparesis HD MWF - Surgical History Hx Coronary Stent: No Hx Pacemaker: No Hx Internal Defibrillator: No Hx Cholecystectomy: Yes Hx Appendectomy: Yes Additional Surgical History: right great toe removed, Right chest PERMA-CATH - Social History Smoking Status: Never Smoker Substance Use Type: None - Medications Home Medications: Home Medications Medication Instructions Recorded Confirmed Last Taken Type Albuterol Sulfate [Albuterol 0.63% 0.63 mg IH Q4HR PRN #50 04/17/20 07/20/20 05/30/20 Rx NEBS] Lispro Insulin [HumaLOG] 5 unit SQ AC #1 vial 04/17/20 07/20/20 06/15/20 Rx Metoclopramide 5 mg PO ACHS PRN 07/11/20 07/20/20 Unknown History Apixaban [Eliquis] 1 tab PO BID #60 tablet 07/17/20 07/22/20 07/22/20 08:00 Rx Insulin Detemir [Levemir VIAL] 10 unit SQ QHS 30 Days vial 07/17/20 07/22/20 07/21/20 20:00 Rx Insulin Glargine [Lantus VIAL] 10 units SUB-Q QHS units 07/17/20 07/22/20 07/21/20 20:00 Rx Metoclopramide [Reglan TAB] 5 mg PO ACHS PRN #120 tablet 07/17/20 07/22/20 07/22/20 08:00 Rx Pantoprazole [Protonix TAB] 40 mg PO DAILY #60 tablet 07/17/20 07/22/20 07/22/20 08:00 Rx amLODIPine 10 mg PO DAILY #30 tablet 07/17/20 07/22/20 07/22/20 08:00 Rx carvediloL [Coreg] 25 mg PO BID 30 Days #60 tablet 07/17/20 07/22/20 07/22/20 08:00 Rx cloNIDine [Catapres] 0.1 mg PO BID #60 tablet 07/17/20 07/22/20 07/22/20 08:00 Rx hydrALAZINE [Apresoline TAB] 100 mg PO Q8HR #90 tab 07/17/20 07/22/20 07/22/20 08:00 Rx ED Physical Exam - General Limitations: No Limitations General appearance: alert, in no apparent distress - Head Head exam: Present: atraumatic, normocephalic - Eye Eye exam: Present: normal appearance - ENT ENT exam: Present: mucous membranes moist - Neck Neck exam: Present: normal inspection - Respiratory Respiratory exam: Present: normal lung sounds bilaterally. Absent: respiratory distress, wheezes, rales - Cardiovascular Cardiovascular Exam: Present: regular rate, normal rhythm, normal heart sounds. Absent: systolic murmur, diastolic murmur, rubs, gallop - GI/Abdominal GI/Abdominal exam: Present: soft, tenderness (Epigastric), normal bowel sounds. Absent: distended, guarding - Rectal Rectal exam: Present: deferred - Extremities Exam Extremities exam: Present: normal inspection - Back Exam Back exam: Present: normal inspection - Neurological Exam Neurological exam: Present: alert, oriented X3 - Psychiatric Psychiatric exam: Present: normal affect, normal mood - Skin Skin exam: Present: warm, dry, intact, normal color. Absent: rash ED Course Vital Signs 07/29/20 15:26 Temperature 98.5 F Pulse Rate 90 Respiratory 20 Rate Blood Pressure 190/92 O2 Sat by Pulse 96 Oximetry ED Medical Decision Making - Lab Data Result diagrams: 07/29/20 16:06 07/29/20 16:06 Lab Results 07/29/20 07/29/20 07/29/20 Range/Units 16:06 16:06 16:06 WBC (4.5-11.0) K/mm3 RBC (3.65-5.03) M/mm3 Hgb (11.8-15.2) gm/dl Hct (35.5-45.6) % MCV (84-94) fl MCH (28-32) pg MCHC (32-34) % RDW (13.2-15.2) % Plt Count (140-440) K/mm3 Add Manual Diff Total Counted Seg Neutrophils % Seg Neuts % (Manual) (40.0-70.0) % Band Neutrophils % % Lymphocytes % (Manual) (13.4-35.0) % Reactive Lymphs % (Man) % Monocytes % (Manual) (0.0-7.3) % Eosinophils % (Manual) (0.0-4.3) % Basophils % (Manual) (0.0-1.8) % Metamyelocytes % % Myelocytes % % Promyelocytes % % Blast Cells % % Nucleated RBC % Seg Neutrophils # Man (1.8-7.7) K/mm3 Band Neutrophils # K/mm3 Lymphocytes # (Manual) (1.2-5.4) K/mm3 Abs React Lymphs (Man) K/mm3 Monocytes # (Manual) (0.0-0.8) K/mm3 Eosinophils # (Manual) (0.0-0.4) K/mm3 Basophils # (Manual) (0.0-0.1) K/mm3 Metamyelocytes # K/mm3 Myelocytes # K/mm3 Promyelocytes # K/mm3 Blast Cells # K/mm3 WBC Morphology Hypersegmented Neuts Hyposegmented Neuts Hypogranular Neuts Smudge Cells Toxic Granulation Toxic Vacuolation Dohle Bodies Pelger-Huet Anomaly Julio Cesar Rods Platelet Estimate Clumped Platelets Plt Clumps, EDTA Large Platelets Giant Platelets Platelet Satelliting Plt Morphology Comment RBC Morphology Dimorphic RBCs Polychromasia Hypochromasia Poikilocytosis Anisocytosis Microcytosis Macrocytosis Spherocytes Pappenheimer Bodies Sickle Cells Target Cells Tear Drop Cells Ovalocytes Helmet Cells Pak-Cortez Bodies [place] Rings Olive Cells Bite Cells Crenated Cell Elliptocytes Acanthocytes (Spur) Rouleaux Hemoglobin C Crystals Schistocytes Malaria parasites David Bodies Hem Pathologist Commnt Sodium 139 (137-145) mmol/L Potassium 6.5 H* (3.6-5.0) mmol/L Chloride 97.3 L (98-107) mmol/L Carbon Dioxide 16 L (22-30) mmol/L Anion Gap 32 mmol/L BUN 87 H (9-20) mg/dL Creatinine 20.9 H (0.8-1.3) mg/dL Estimated GFR 3 ml/min BUN/Creatinine Ratio 4 % Glucose 172 H (75-100) mg/dL Calcium 7.5 L (8.4-10.2) mg/dL Urine Color (Yellow) Urine Turbidity (Clear) Urine pH (5.0-7.0) Ur Specific [place] (1.003-1.030) Urine Protein (Negative) mg/dL Urine Glucose (UA) (Negative) mg/dL Urine Ketones (Negative) mg/dL Urine Blood (Negative) Urine Nitrite (Negative) Urine Bilirubin (Negative) Urine Urobilinogen (<2.0) mg/dL Ur Leukocyte Esterase (Negative) Urine WBC (Auto) (0.0-6.0) /HPF Urine RBC (Auto) (0.0-6.0) /HPF U Epithel Cells (Auto) (0-13.0) /HPF Urine Bacteria (Auto) (Negative) /HPF Urine Yeast (Budding) /HPF Salicylates < 0.3 L (2.8-20.0) mg/dL Urine Opiates Screen Urine Methadone Screen Acetaminophen 5.0 L (10.0-30.0) ug/mL Ur Barbiturates Screen Ur Phencyclidine Scrn Ur Amphetamines Screen U Benzodiazepines Scrn Urine Cocaine Screen U Marijuana (THC) Screen Drugs of Abuse Note Plasma/Serum Alcohol (0-0.07) % 07/29/20 07/29/20 07/29/20 Range/Units 16:06 16:06 Unknown WBC 20.9 H (4.5-11.0) K/mm3 RBC 2.90 L (3.65-5.03) M/mm3 Hgb 7.0 L (11.8-15.2) gm/dl Hct 23.2 L (35.5-45.6) % MCV 80 L (84-94) fl MCH 24 L (28-32) pg MCHC 30 L (32-34) % RDW 21.7 H (13.2-15.2) % Plt Count 380 (140-440) K/mm3 Add Manual Diff Complete Total Counted 100 Seg Neutrophils % In Store Marketing Representative Seg Neuts % (Manual) 89.0 H (40.0-70.0) % Band Neutrophils % 0 % Lymphocytes % (Manual) 6.0 L (13.4-35.0) % Reactive Lymphs % (Man) 0 % Monocytes % (Manual) 4.0 (0.0-7.3) % Eosinophils % (Manual) 1.0 (0.0-4.3) % Basophils % (Manual) 0 (0.0-1.8) % Metamyelocytes % 0 % Myelocytes % 0 % Promyelocytes % 0 % Blast Cells % 0 % Nucleated RBC % Not Reportable Seg Neutrophils # Man 18.6 H (1.8-7.7) K/mm3 Band Neutrophils # 0.0 K/mm3 Lymphocytes # (Manual) 1.3 (1.2-5.4) K/mm3 Abs React Lymphs (Man) 0.0 K/mm3 Monocytes # (Manual) 0.8 (0.0-0.8) K/mm3 Eosinophils # (Manual) 0.2 (0.0-0.4) K/mm3 Basophils # (Manual) 0.0 (0.0-0.1) K/mm3 Metamyelocytes # 0.0 K/mm3 Myelocytes # 0.0 K/mm3 Promyelocytes # 0.0 K/mm3 Blast Cells # 0.0 K/mm3 WBC Morphology Not Reportable Hypersegmented Neuts Not Reportable Hyposegmented Neuts Not Reportable Hypogranular Neuts Not Reportable Smudge Cells Not Reportable Toxic Granulation Not Reportable Toxic Vacuolation Not Reportable Dohle Bodies Not Reportable Pelger-Huet Anomaly Not Reportable Julio Cesar Rods Not Reportable Platelet Estimate Not Reportable Clumped Platelets Not Reportable Plt Clumps, EDTA Not Reportable Large Platelets Not Reportable Giant Platelets Not Reportable Platelet Satelliting Not Reportable Plt Morphology Comment Not Reportable RBC Morphology Not Reportable Dimorphic RBCs Not Reportable Polychromasia Not Reportable Hypochromasia 1+ Poikilocytosis Not Reportable Anisocytosis 1+ Microcytosis Few Macrocytosis Not Reportable Spherocytes Not Reportable Pappenheimer Bodies Not Reportable Sickle Cells Not Reportable Target Cells Not Reportable Tear Drop Cells Not Reportable Ovalocytes Not Reportable Helmet Cells Not Reportable Pak-Cortez Bodies Not Reportable [place] Rings Not Reportable [place] Cells Not Reportable Bite Cells Not Reportable Crenated Cell Not Reportable Elliptocytes Not Reportable Acanthocytes (Spur) Not Reportable Rouleaux Not Reportable Hemoglobin C Crystals Not Reportable Schistocytes Not Reportable Malaria parasites Not Reportable David Bodies Not Reportable Hem Pathologist Commnt No Sodium (137-145) mmol/L Potassium (3.6-5.0) mmol/L Chloride (98-107) mmol/L Carbon Dioxide (22-30) mmol/L Anion Gap mmol/L BUN (9-20) mg/dL Creatinine (0.8-1.3) mg/dL Estimated GFR ml/min BUN/Creatinine Ratio % Glucose (75-100) mg/dL Calcium (8.4-10.2) mg/dL Urine Color Yellow (Yellow) Urine Turbidity Slightly-cloudy (Clear) Urine pH 6.0 (5.0-7.0) Ur Specific [place] 1.024 (1.003-1.030) Urine Protein >500 (Negative) mg/dL Urine Glucose (UA) >=500 (Negative) mg/dL Urine Ketones Tr (Negative) mg/dL Urine Blood Sm (Negative) Urine Nitrite Neg (Negative) Urine Bilirubin Neg (Negative) Urine Urobilinogen < 2.0 (<2.0) mg/dL Ur Leukocyte Esterase Tr (Negative) Urine WBC (Auto) 34.0 H (0.0-6.0) /HPF Urine RBC (Auto) 9.0 (0.0-6.0) /HPF U Epithel Cells (Auto) 1.0 (0-13.0) /HPF Urine Bacteria (Auto) 1+ (Negative) /HPF Urine Yeast (Budding) 1+ /HPF Salicylates (2.8-20.0) mg/dL Urine Opiates Screen Urine Methadone Screen Acetaminophen (10.0-30.0) ug/mL Ur Barbiturates Screen Ur Phencyclidine Scrn Ur Amphetamines Screen U Benzodiazepines Scrn Urine Cocaine Screen U Marijuana (THC) Screen Drugs of Abuse Note Plasma/Serum Alcohol < 0.01 (0-0.07) % 07/29/20 Range/Units Unknown WBC (4.5-11.0) K/mm3 RBC (3.65-5.03) M/mm3 Hgb (11.8-15.2) gm/dl Hct (35.5-45.6) % MCV (84-94) fl MCH (28-32) pg MCHC (32-34) % RDW (13.2-15.2) % Plt Count (140-440) K/mm3 Add Manual Diff Total Counted Seg Neutrophils % Seg Neuts % (Manual) (40.0-70.0) % Band Neutrophils % % Lymphocytes % (Manual) (13.4-35.0) % Reactive Lymphs % (Man) % Monocytes % (Manual) (0.0-7.3) % Eosinophils % (Manual) (0.0-4.3) % Basophils % (Manual) (0.0-1.8) % Metamyelocytes % % Myelocytes % % Promyelocytes % % Blast Cells % % Nucleated RBC % Seg Neutrophils # Man (1.8-7.7) K/mm3 Band Neutrophils # K/mm3 Lymphocytes # (Manual) (1.2-5.4) K/mm3 Abs React Lymphs (Man) K/mm3 Monocytes # (Manual) (0.0-0.8) K/mm3 Eosinophils # (Manual) (0.0-0.4) K/mm3 Basophils # (Manual) (0.0-0.1) K/mm3 Metamyelocytes # K/mm3 Myelocytes # K/mm3 Promyelocytes # K/mm3 Blast Cells # K/mm3 WBC Morphology Hypersegmented Neuts Hyposegmented Neuts Hypogranular Neuts Smudge Cells Toxic Granulation Toxic Vacuolation Dohle Bodies Pelger-Huet Anomaly Julio Cesar Rods Platelet Estimate Clumped Platelets Plt Clumps, EDTA Large Platelets Giant Platelets Platelet Satelliting Plt Morphology Comment RBC Morphology Dimorphic RBCs Polychromasia Hypochromasia Poikilocytosis Anisocytosis Microcytosis Macrocytosis Spherocytes Pappenheimer Bodies Sickle Cells Target Cells Tear Drop Cells Ovalocytes Helmet Cells Pak-Cortez Bodies [place] Rings Olive Cells Bite Cells Crenated Cell Elliptocytes Acanthocytes (Spur) Rouleaux Hemoglobin C Crystals Schistocytes Malaria parasites David Bodies Hem Pathologist Commnt Sodium (137-145) mmol/L Potassium (3.6-5.0) mmol/L Chloride (98-107) mmol/L Carbon Dioxide (22-30) mmol/L Anion Gap mmol/L BUN (9-20) mg/dL Creatinine (0.8-1.3) mg/dL Estimated GFR ml/min BUN/Creatinine Ratio % Glucose (75-100) mg/dL Calcium (8.4-10.2) mg/dL Urine Color (Yellow) Urine Turbidity (Clear) Urine pH (5.0-7.0) Ur Specific [place] (1.003-1.030) Urine Protein (Negative) mg/dL Urine Glucose (UA) (Negative) mg/dL Urine Ketones (Negative) mg/dL Urine Blood (Negative) Urine Nitrite (Negative) Urine Bilirubin (Negative) Urine Urobilinogen (<2.0) mg/dL Ur Leukocyte Esterase (Negative) Urine WBC (Auto) (0.0-6.0) /HPF Urine RBC (Auto) (0.0-6.0) /HPF U Epithel Cells (Auto) (0-13.0) /HPF Urine Bacteria (Auto) (Negative) /HPF Urine Yeast (Budding) /HPF Salicylates (2.8-20.0) mg/dL Urine Opiates Screen Presumptive negative Urine Methadone Screen Presumptive negative Acetaminophen (10.0-30.0) ug/mL Ur Barbiturates Screen Presumptive negative Ur Phencyclidine Scrn Presumptive negative Ur Amphetamines Screen Presumptive negative U Benzodiazepines Scrn Presumptive negative Urine Cocaine Screen Presumptive negative U Marijuana (THC) Screen Presumptive negative Drugs of Abuse Note Disclamer Plasma/Serum Alcohol (0-0.07) % - Medical Decision Making Patient's potassium was 6.5. Was treated with D50 insulin and given a dose of bicarb. Patient will be admitted to the hospitalist service for dialysis tomorrow. Patient's blood pressure was elevation was treated with hydralazine. He was given Protonix and Zofran to control his nausea. Critical Care Time: Yes (30) Critical care attestation.: If time is entered above; I have spent that time in minutes in the direct care of this critically ill patient, excluding procedure time. ED Disposition Clinical Impression: End-stage renal disease needing dialysis, Abdominal pain, Erosive esophagitis, Hematemesis, Hypertensive urgency, UTI (urinary tract infection) Disposition: DC- OP ADMIT IP TO THIS HOSP Is pt being admited?: Yes Does the pt Need Aspirin: No Condition: Stable Time of Disposition: 22:15
[2020-07-29] MEDS ORDERED: SODIUM CHLORIDE 0.9% 100 ML IV PRN (22:58)
[2020-07-30] MEDS ORDERED: ALBUTEROL 2.5 MG/3 ML NEBU IH ONE ×3 (00:17→11:00)
[2020-07-30] MEDS ORDERED: DEXTROSE 50% IN WATER (25GM) 50 ML SYRINGE IV PRN (00:41)
[2020-07-30] MEDS ORDERED: MAGNESIUM HYDROXIDE (MOM) ORAL LIQD UDC PO PRN (00:41)
--- NOTE | 2020-07-30 00:50 | History and Physical Report ---
History of Present Illness Date of examination: 07/29/20 Date of admission: 07/29/20 22:16 Chief complaint: Nausea and Vomiting History of present illness: 34-year-old -[place] male with known history of hypertension, diabetes mellitus, history of gastroparesis and end-stage renal disease on dialysis presenting to the emergency room today complaining of nausea and vomiting. He has also had a history of erosive esophagitis in the past. He denies any cof fee-ground emesis. He has been having associated abdominal pain. He denies any fever or chills, no chest pain or shortness of breath, denies any diarrhea. Patient indicates that he has missed dialysis for about a week because he has been depressed lately. He denies any homicidal or suicidal ideations. Work-up in the emergency room today reveals hyperkalemia of 6.5, he also had a UTI on the urinalysis. Patient was started on empiric IV antibiotics. He received insulin and glucose, nebulizer treatment and sodium bicarb in the emergency room. Consult has been placed to the [facility] software engineer for dialysis. Past History Past Medical History: diabetes, dialysis, ESRD, hypertension, other (Ulcerative esophagitis,Gastroparesis,NSTEMI,) Past Surgical History: appendectomy, cholecystectomy, Other (Right great toe amputation) Social history: no significant social history Family history: no significant family history Medications and Allergies Allergies Allergy/AdvReac Type Severity Reaction Status Date / Time No Known Allergies Allergy Verified 07/20/20 15:05 Home Medications Medication Instructions Recorded Confirmed Last Taken Type Albuterol Sulfate [Albuterol 0.63% 0.63 mg IH Q4HR PRN #50 04/17/20 07/30/20 05/30/20 Rx NEBS] Lispro Insulin [HumaLOG] 5 unit SQ AC #1 vial 04/17/20 07/30/20 06/15/20 Rx Apixaban [Eliquis] 1 tab PO BID #60 tablet 07/17/20 07/30/20 07/22/20 08:00 Rx Insulin Glargine [Lantus VIAL] 10 units SUB-Q QHS units 07/17/20 07/30/20 07/21/20 20:00 Rx Metoclopramide [Reglan TAB] 5 mg PO ACHS PRN #120 tablet 09/04/3007/30/20 07/22/20 08:00 Rx Pantoprazole [Protonix TAB] 40 mg PO DAILY #60 tablet 07/17/20 07/30/20 07/22/20 08:00 Rx amLODIPine 10 mg PO DAILY #30 tablet 07/17/20 07/30/20 07/22/20 08:00 Rx carvediloL [Coreg] 25 mg PO BID 30 Days #60 tablet 07/17/20 07/30/20 07/22/20 08:00 Rx cloNIDine [Catapres] 0.1 mg PO BID #60 tablet 07/17/20 07/30/20 07/22/20 08:00 Rx hydrALAZINE [Apresoline TAB] 100 mg PO Q8HR #90 tab 07/17/20 07/30/20 07/22/20 08:00 Rx Active Meds: Active Medications Acetaminophen (Tylenol) 650 mg PO Q4H PRN PRN Reason: Pain MILD(1-3)/Fever >100.5/LANZA Dextrose (D50w (25gm) Syringe) 50 ml IV Q30MIN PRN; Protocol PRN Reason: Hypoglycemia Dextrose (D50w (25gm) Syringe) 50 ml IV Q30MIN PRN; Protocol PRN Reason: Hypoglycemia Heparin Sodium (Porcine) (Heparin) 5,000 unit SUB-Q Q8HR KESHIA Sodium Chloride (Nacl 0.9%) 100 mls @ 999 mls/hr IV BRENDAN PRN PRN Reason: Hypotension Insulin Human Lispro (Humalog) 0 unit SUB-Q ACHS KESHIA; Protocol Magnesium Hydroxide (Milk Of Magnesia) 30 ml PO Q4H PRN PRN Reason: Constipation Ondansetron HCl (Zofran) 4 mg IV Q8H PRN PRN Reason: Nausea And Vomiting Sodium Chloride (Sodium Chloride Flush Syringe 10 Ml) 10 ml IV BID KESHIA Sodium Chloride (Sodium Chloride Flush Syringe 10 Ml) 10 ml IV PRN PRN PRN Reason: LINE FLUSH Review of Systems Constitutional: no fever, no chills Ears, nose, mouth and throat: no nasal congestion, no sore throat Cardiovascular: no chest pain, no palpitations Respiratory: no cough, no shortness of breath Gastrointestinal: nausea, vomiting, no abdominal pain, no diarrhea Genitourinary Male: no dysuria, no hematuria, no flank pain Musculoskeletal: no neck pain, no low back pain Integumentary: no rash, no pruritis Neurological: no headaches, no confusion Psychiatric: depression, no anxiety Exam - Constitutional Vitals: Temp Pulse Resp BP Pulse Ox 98.5 F 95 H 20 183/100 96 07/29/20 15:26 07/30/20 00:21 07/30/20 00:21 07/29/20 23:26 07/29/20 15:26 General appearance: Present: no acute distress, well-nourished - EENT Eyes: Present: PERRL, EOM intact ENT: hearing intact, clear oral mucosa, dentition normal - Neck Neck: Present: supple, normal ROM - Respiratory Respiratory effort: normal Respiratory: bilateral: CTA - Cardiovascular Rhythm: other (left perm cath) Heart Sounds: Present: S1 & S2. Absent: gallop, systolic murmur, diastolic murmur, rub - Extremities Extremities: no ischemia, pulses intact, pulses symmetrical, No edema, Full ROM Peripheral Pulses: within normal limits - Abdominal General gastrointestinal: Present: soft, non-tender, non-distended, normal bowel sounds. Absent: mass - Integumentary Integumentary: Present: clear, warm, dry - Musculoskeletal Musculoskeletal: strength equal bilaterally - Psychiatric Psychiatric: appropriate mood/affect, intact judgment & insight, memory intact, cooperative, other (Appears mildly anxious) - Neurologic Neurologic: CNII-XII intact, moves all extremities Results - Labs CBC & Chem 7: 07/29/20 16:06 07/29/20 16:06 Labs: Abnormal lab results 07/29/20 07/29/20 07/29/20 Range/Units 16:06 16:06 16:06 WBC (4.5-11.0) K/mm3 RBC (3.65-5.03) M/mm3 Hgb (11.8-15.2) gm/dl Hct (35.5-45.6) % MCV (84-94) fl MCH (28-32) pg MCHC (32-34) % RDW (13.2-15.2) % Seg Neuts % (Manual) (40.0-70.0) % Lymphocytes % (Manual) (13.4-35.0) % Seg Neutrophils # Man (1.8-7.7) K/mm3 Potassium 6.5 H* (3.6-5.0) mmol/L Chloride 97.3 L (98-107) mmol/L Carbon Dioxide 16 L (22-30) mmol/L BUN 87 H (9-20) mg/dL Creatinine 20.9 H (0.8-1.3) mg/dL Glucose 172 H (75-100) mg/dL Calcium 7.5 L (8.4-10.2) mg/dL Urine WBC (Auto) (0.0-6.0) /HPF Salicylates < 0.3 L (2.8-20.0) mg/dL Acetaminophen 5.0 L (10.0-30.0) ug/mL 07/29/20 07/29/20 Range/Units 16:06 Unknown WBC 20.9 H (4.5-11.0) K/mm3 RBC 2.90 L (3.65-5.03) M/mm3 Hgb 7.0 L (11.8-15.2) gm/dl Hct 23.2 L (35.5-45.6) % MCV 80 L (84-94) fl MCH 24 L (28-32) pg MCHC 30 L (32-34) % RDW 21.7 H (13.2-15.2) % Seg Neuts % (Manual) 89.0 H (40.0-70.0) % Lymphocytes % (Manual) 6.0 L (13.4-35.0) % Seg Neutrophils # Man 18.6 H (1.8-7.7) K/mm3 Potassium (3.6-5.0) mmol/L Chloride (98-107) mmol/L Carbon Dioxide (22-30) mmol/L BUN (9-20) mg/dL Creatinine (0.8-1.3) mg/dL Glucose (75-100) mg/dL Calcium (8.4-10.2) mg/dL Urine WBC (Auto) 34.0 H (0.0-6.0) /HPF Salicylates (2.8-20.0) mg/dL Acetaminophen (10.0-30.0) ug/mL Assessment and Plan - Patient Problems (1) End-stage renal disease needing dialysis Current Visit: Yes Status: Chronic Plan to address problem: Consult placed to [facility] software engineer for dialysis. (2) Abdominal pain Current Visit: Yes Status: Acute Qualifiers: Plan to address problem: Possibly secondary to the intractable nausea and vomiting. Will place patient on IV analgesic medication as needed. (3) Hypertensive urgency Current Visit: Yes Status: Acute Plan to address problem: We will resume patient's routine home medications and also placed on IV labetalol as needed for optimal blood pressure control. (4) UTI (urinary tract infection) Current Visit: Yes Status: Acute Plan to address problem: Patient placed on empiric IV antibiotics. We will await urine culture result. (5) Acute hyperkalemia Current Visit: No Status: Acute Plan to address problem: We will monitor up chemistry closely. Patient has had insulin and glucose, nebulizing treatment and sodium bicarb in the emergency room. (6) Depression Current Visit: Yes Status: Acute Plan to address problem: Patient indicates he has been depressed lately. We will place a consult to mental health for evaluation and recommendation. (7) DVT prophylaxis Current Visit: No Status: Acute Plan to address problem: Patient currently on anticoagulation. (8) Diabetes mellitus Current Visit: No Status: Acute (9) Full code status Current Visit: Yes Status: Acute
[2020-07-30] MEDS: ONDANSETRON 4 MG/2 ML INJ IV PRN ×3 (01:07→22:01)
[2020-07-30] MEDS: ACETAMINOPHEN 325 MG TAB PO PRN (05:36)
[2020-07-30] MEDS ORDERED: HEPARIN 5,000 UNIT/1 ML VIAL SUB-Q SCH (06:00)
[2020-07-30] MEDS ORDERED: ALBUTEROL SULFATE 0.63 MG IH PRN (06:52)
[2020-07-30 06:57] LABS: Hepatitis B Surface Antigen Non-Reactive (Negative); Hepatitis C Virus Antibody Non-Reactive (NonReactive)
[2020-07-30] MEDS ORDERED: ALBUTEROL 2.5 MG/3 ML NEBU IH PRN (07:01)
[2020-07-30] MEDS: INSULIN LISPRO 100 UNIT/ML VIAL 3 mL SUB-Q SCH ×4 (08:35→22:01)
--- NOTE | 2020-07-30 09:49 | Consultation ---
History of Present Illness - Reason for Consult Consult date: 07/30/20 end stage renal disease - History of Present Illness HPI: Mr Eddy is a 34 year old M with a PMH of DM2, HTN, Gastroparesis, ESRD on HD who has been admitted to the [facility] with misseed dialysis since 1 week along with nausea and vomiting and belly pain. He denies CP, SHOB, fever. He was found to have hyperkalemia in the ER. He underwent HD last night. ROS: As in HPI otherwise 12 point reveiw of systems -ve Past History Past Medical History: diabetes, dialysis, ESRD, hypertension, other (Ulcerative esophagitis,Gastroparesis,NSTEMI,) Past Surgical History: appendectomy, cholecystectomy, Other (Right great toe amputation) Social history: no significant social history Family history: no significant family history Medications and Allergies Allergies Allergy/AdvReac Type Severity Reaction Status Date / Time No Known Allergies Allergy Verified 07/20/20 15:05 Home Medications Medication Instructions Recorded Confirmed Last Taken Type Albuterol Sulfate [Albuterol 0.63% 0.63 mg IH Q4HR PRN #50 04/17/20 07/30/20 05/30/20 Rx NEBS] Lispro Insulin [HumaLOG] 5 unit SQ AC #1 vial 04/17/20 07/30/20 06/15/20 Rx Apixaban [Eliquis] 1 tab PO BID #60 tablet 07/17/20 07/30/20 07/22/20 08:00 Rx Insulin Glargine [Lantus VIAL] 10 units SUB-Q QHS units 07/17/20 07/30/20 07/21/20 20:00 Rx Metoclopramide [Reglan TAB] 5 mg PO ACHS PRN #120 tablet 07/17/20 07/30/20 07/22/20 08:00 Rx Pantoprazole [Protonix TAB] 40 mg PO DAILY #60 tablet 07/17/20 07/30/20 07/22/20 08:00 Rx amLODIPine 10 mg PO DAILY #30 tablet 07/17/20 07/30/20 07/22/20 08:00 Rx carvediloL [Coreg] 25 mg PO BID 30 Days #60 tablet 07/17/20 07/30/20 07/22/20 08:00 Rx cloNIDine [Catapres] 0.1 mg PO BID #60 tablet 07/17/20 07/30/20 07/22/20 08:00 Rx hydrALAZINE [Apresoline TAB] 100 mg PO Q8HR #90 tab 07/17/20 07/30/20 07/22/20 08:00 Rx Active Meds: Active Medications Acetaminophen (Tylenol) 650 mg PO Q4H PRN PRN Reason: Pain MILD(1-3)/Fever >100.5/LANZA Last Admin: 07/30/20 05:36 Dose: 650 mg Documented by: Albuterol (Proventil) 0.63 mg IH Q4HRT PRN PRN Reason: Shortness Of Breath Amlodipine Besylate (Amlodipine) 10 mg PO DAILY [facility] Apixaban (Eliquis) 5 mg PO BID [facility]; Protocol Carvedilol (Coreg) 25 mg PO BID@0800,1700 [facility] Clonidine HCl (Catapres) 0.1 mg PO BID [facility] Dextrose (D50w (25gm) Syringe) 0 ml IV Q30MIN PRN; Protocol PRN Reason: Hypoglycemia Hydralazine HCl (Apresoline) 100 mg PO Q8HR [facility] Sodium Chloride (Nacl 0.9%) 100 mls @ 999 mls/hr IV BRENDAN PRN PRN Reason: Hypotension Ceftriaxone Sodium (Rocephin/Ns 1 Gm/50 Ml) 1 gm in 50 mls @ 100 mls/hr IV Q24HR [facility]; Protocol Insulin Human Lispro (Humalog) 0 unit SUB-Q ACHS [facility]; Protocol Last Admin: 07/30/20 08:35 Dose: 2 unit Documented by: Magnesium Hydroxide (Milk Of Magnesia) 30 ml PO Q4H PRN PRN Reason: Constipation Ondansetron HCl (Zofran) 4 mg IV Q8H PRN PRN Reason: Nausea And Vomiting Last Admin: 07/30/20 01:07 Dose: 4 mg Documented by: Pantoprazole Sodium (Protonix) 40 mg PO QHS [facility] Sodium Chloride (Sodium Chloride Flush Syringe 10 Ml) 10 ml IV BID [facility] Sodium Chloride (Sodium Chloride Flush Syringe 10 Ml) 10 ml IV PRN PRN PRN Reason: LINE FLUSH Exam - Vital Signs Vital signs: Vital Signs Temp Pulse Resp BP Pulse Ox 98.5 F 90 20 190/92 96 07/29/20 15:26 07/29/20 15:26 07/29/20 15:26 07/29/20 15:26 07/29/20 15:26 - Physical Exam Narrative exam: General appearance: Present: no acute distress, well-nourished - EENT Eyes: Present: PERRL, EOM intact ENT: hearing intact, clear oral mucosa, dentition normal - Neck Neck: Present: supple, normal ROM - Respiratory Respiratory effort: normal Respiratory: bilateral: CTA - Cardiovascular Rhythm: other (left perm cath) Heart Sounds: Present: S1 & S2. Absent: gallop, systolic murmur, diastolic murmur, rub - Extremities Extremities: no ischemia, pulses intact, pulses symmetrical, No edema, Full ROM Peripheral Pulses: within normal limits - Abdominal General gastrointestinal: Present: soft, non-tender, non-distended, normal bowel sounds. Absent: mass - Integumentary Integumentary: Present: clear, warm, dry - Musculoskeletal Musculoskeletal: strength equal bilaterally - Psychiatric Psychiatric: appropriate mood/affect, intact judgment & insight, memory intact, cooperative, other (Appears mildly anxious) - Neurologic Neurologic: CNII-XII intact, moves all extremities Results - Lab Results 07/29/20 16:06 07/30/20 10:14 Most recent lab results Calcium 7.5 mg/dL (8.4-10.2) L 07/29/20 16:06 Assessment and Plan ESRD on Hemodialysis: Hyperkalemia: Abdominal Pain: HTN: Possible UTI: Depression: ACD due to ESRD: -s/p HD last night, HD again today -Epogen for ACD -Renally dose all meds -Strict I/Os Vaibhav Browning MD [phone]
[2020-07-30] MEDS: cloNIDine 0.1 MG TAB PO SCH ×3 (10:20→22:30)
[2020-07-30] MEDS: carvediloL 25 MG TAB PO SCH ×2 (10:21→17:09)
[2020-07-30] MEDS: cefTRIAXone/NS 1 GM/50 ML 1 GM/50 ML BAG IV SCH (10:21)
[2020-07-30] MEDS: amLODIPine 10 MG TAB PO SCH (10:21)
[2020-07-30] MEDS: APIXABAN 5 MG TAB PO SCH ×3 (10:21→22:30)
[2020-07-30 10:51] LABS: Calcium 7.7 mg/dL (8.4-10.2)
--- NOTE | 2020-07-30 11:10 | Consultation ---
History of Present Illness - Reason for Consult Consult date: 07/30/20 Reason for consult: MHE Requesting physician: SHABBIR VAN - Chief Complaint Chief complaint: Nausea and Vomiting - History of Present Psychiatric Illness PEr ED Provider: Patient is a 34-year-old Mexican male with a past medical history of hypertension end-stage renal disease and diabetes as well as g astroparesis who is well-known to our department. Patient has a history of missing dialysis and coming in with gastroparesis and elevated blood pressure. Patient has not had dialysis and 1 week secondary to depression. States he was not actually trying to kill himself he was just depressed and lack of motivation. He has been vomiting for the last 24 hours with epigastric pain. There was some blood streaks in his vomit which is normal for this patient. He denies fevers chills cough cold or congestion. PSYCH HPI Patient is single, unemployed currently on disability 34 year old Male without children living alone with no prior Psychiatric disorder and with Past Medical History of End Stage Renal disease and DM who was admitted [facility]at[facility] with complaints of missed dialysis due to depression at home. Patient says he has been feeling depressed at home, mostly due to his medical condition of ESRD which he was diagnosed with about a year ago and has been on dialysis since then. Patient endorses poor appetite, poor sleep pattern, de creased energy and interest but denies suicidal thoughts or ideations. Patient report he does have a PCP but no mental health discussion has happened. Patient does not report hearing voices or seeing things. According to patient he admits to self guilt for his own health, feels he could have taken care of himself well enough prior to this. He says he has a mother whom he his close with in [place] but strained relationship with his other 4 siblings. PAST PSYCHIATRIC HISTORY Diagnoses: None reported Suicide attempts or Self-harm behavior: None reported Prior psychiatric hospitalizations: None Substance Abuse history: When younger Previous psychiatric medications tried: none Outpatient treatment: none PAST MEDICAL HISTORY: DM, ESRD Family Psychiatric History: None reported or documented SOCIAL HISTORY Marital Status: Single Living Arrangements: with self Employment Status: Unemployed, on disability Access to guns/weapons: None reported Education: High school History of Abuse: none reported Legal History:none reported REVIEW OF SYSTEMS Constitutional: Negative for weight loss ENT: Negative for stridor Respiratory: Negative for cough or hemoptysis All other systems reviewed and are negative MENTAL STATUS EXAMINATION General Appearance and Behavior: Age appropriate, good hygiene, wearing appropriate clothes, lying in bed, good eye contact, cooperative polite with questioning. Cooperation: Participating/engaged Psychomotor Behavior: unremarkable and within normal limits Mood: sad Affect and affective range: decreased range Thought Process: Fluent/Logical Thought Content: Within reality Suicidal Ideation: Denies SI Homicidal Ideation: Denies HI Impulse Control: Unimpaired Insight and Judgment: Normal insight and judgment Memory: Normal Attention: Normal Orientation: Alert, oriented Assessment and Plan - Psychiatric problem (1) Depression Current Visit: Yes Status: Acute Qualifiers: Active/Remission status: currently active Major depression episode severity: moderate Treatment Plan MEDICATIONS: Zoloft, no renal dosing indicated Risks, benefits and alternatives of medications discussed with the patient, questions answered and consent obtained from patient. PSYCHOTHERAPY: Supportive psychotherapy provided MEDICAL: Per primary team DELIRIUM PRECAUTIONS: Please re-orient patient frequently, keep lights on during the day, and minimize benzodiazepines and opiates as these medications could worsen patient's confusion. CROP PULLER: DISPOSITION: Do Not Recommend acute inpatient psychiatric hospitalization at this time. Psychotherapy recommended LEGAL STATUS: Voluntary FOLLOW-UP: Will follow Thank you for the consult. Please contact with any questions and/or concerns. Medications and Allergies Allergies Allergy/AdvReac Type Severity Reaction Status Date / Time No Known Allergies Allergy Verified 07/20/20 15:05 Home Medications Medication Instructions Recorded Confirmed Last Taken Type Albuterol Sulfate [Albuterol 0.63% 0.63 mg IH Q4HR PRN #50 04/17/20 07/30/20 05/30/20 Rx NEBS] Lispro Insulin [HumaLOG] 5 unit SQ AC #1 vial 04/17/20 07/30/20 06/15/20 Rx Apixaban [Eliquis] 1 tab PO BID #60 tablet 07/17/20 07/30/20 07/22/20 08:00 Rx Insulin Glargine [Lantus VIAL] 10 units SUB-Q QHS units 07/17/20 07/30/20 07/21/20 20:00 Rx Metoclopramide [Reglan TAB] 5 mg PO ACHS PRN #120 tablet 07/17/20 07/30/20 07/22/20 08:00 Rx Pantoprazole [Protonix TAB] 40 mg PO DAILY #60 tablet 07/17/20 07/30/20 07/22/20 08:00 Rx amLODIPine 10 mg PO DAILY #30 tablet 07/17/20 07/30/20 07/22/20 08:00 Rx carvediloL [Coreg] 25 mg PO BID 30 Days #60 tablet 07/17/20 07/30/20 07/22/20 08:00 Rx cloNIDine [Catapres] 0.1 mg PO BID #60 tablet 07/17/20 07/30/20 07/22/20 08:00 Rx hydrALAZINE [Apresoline TAB] 100 mg PO Q8HR #90 tab 07/17/20 07/30/20 07/22/20 08:00 Rx Active Meds: Active Medications Acetaminophen (Tylenol) 650 mg PO Q4H PRN PRN Reason: Pain MILD(1-3)/Fever >100.5/LANZA Last Admin: 07/30/20 05:36 Dose: 650 mg Documented by: Albuterol (Proventil) 0.63 mg IH Q4HRT PRN PRN Reason: Shortness Of Breath Amlodipine Besylate (Amlodipine) 10 mg PO DAILY [facility] Last Admin: 07/30/20 10:21 Dose: 10 mg Documented by: Apixaban (Eliquis) 5 mg PO BID [facility]; Protocol Last Admin: 07/30/20 10:21 Dose: 5 mg Documented by: Carvedilol (Coreg) 25 mg PO BID@0800,1700 [facility] Last Admin: 07/30/20 10:21 Dose: 25 mg Documented by: Clonidine HCl (Catapres) 0.1 mg PO BID [facility] Last Admin: 07/30/20 10:20 Dose: 0.1 mg Documented by: Dextrose (D50w (25gm) Syringe) 0 ml IV Q30MIN PRN; Protocol PRN Reason: Hypoglycemia Hydralazine HCl (Apresoline) 100 mg PO Q8HR [facility] Sodium Chloride (Nacl 0.9%) 100 mls @ 999 mls/hr IV [facility] PRN PRN Reason: Hypotension Ceftriaxone Sodium (Rocephin/Ns 1 Gm/50 Ml) 1 gm in 50 mls @ 100 mls/hr IV Q24HR [facility]; Protocol Last Admin: 07/30/20 10:21 Dose: 100 mls/hr Documented by: Insulin Human Lispro (Humalog) 0 unit SUB-Q ACHS [facility]; Protocol Last Admin: 07/30/20 08:35 Dose: 2 unit Documented by: Magnesium Hydroxide (Milk Of Magnesia) 30 ml PO Q4H PRN PRN Reason: Constipation Ondansetron HCl (Zofran) 4 mg IV Q8H PRN PRN Reason: Nausea And Vomiting Last Admin: 07/30/20 01:07 Dose: 4 mg Documented by: Pantoprazole Sodium (Protonix) 40 mg PO QHS [facility] Sodium Chloride (Sodium Chloride Flush Syringe 10 Ml) 10 ml IV BID [facility] Last Admin: 07/30/20 10:21 Dose: 10 ml Documented by: Sodium Chloride (Sodium Chloride Flush Syringe 10 Ml) 10 ml IV PRN PRN PRN Reason: LINE FLUSH Mental Status Exam - Vital signs Last Vital Signs Temp 100.8 F H 07/30/20 06:35 Pulse 105 H 07/30/20 06:00 Resp 22 07/30/20 05:51 BP 164/85 07/30/20 04:38 Pulse Ox 92 07/30/20 05:51 Results Result Diagrams: 07/29/20 16:06 07/30/20 10:14 Abnormal lab results 07/29/20 07/29/20 07/29/20 Range/Units 16:06 16:06 16:06 WBC (4.5-11.0) K/mm3 RBC (3.65-5.03) M/mm3 Hgb (11.8-15.2) gm/dl Hct (35.5-45.6) % MCV (84-94) fl MCH (28-32) pg MCHC (32-34) % RDW (13.2-15.2) % Seg Neuts % (Manual) (40.0-70.0) % Lymphocytes % (Manual) (13.4-35.0) % Seg Neutrophils # Man (1.8-7.7) K/mm3 Potassium 6.5 H* (3.6-5.0) mmol/L Chloride 97.3 L (98-107) mmol/L Carbon Dioxide 16 L (22-30) mmol/L BUN 87 H (9-20) mg/dL Creatinine 20.9 H (0.8-1.3) mg/dL Glucose 172 H (75-100) mg/dL POC Glucose (70-105) Calcium 7.5 L (8.4-10.2) mg/dL Urine WBC (Auto) (0.0-6.0) /HPF Salicylates < 0.3 L (2.8-20.0) mg/dL Acetaminophen 5.0 L (10.0-30.0) ug/mL 07/29/20 07/29/20 07/30/20 Range/Units 16:06 Unknown 08:06 WBC 20.9 H (4.5-11.0) K/mm3 RBC 2.90 L (3.65-5.03) M/mm3 Hgb 7.0 L (11.8-15.2) gm/dl Hct 23.2 L (35.5-45.6) % MCV 80 L (84-94) fl MCH 24 L (28-32) pg MCHC 30 L (32-34) % RDW 21.7 H (13.2-15.2) % Seg Neuts % (Manual) 89.0 H (40.0-70.0) % Lymphocytes % (Manual) 6.0 L (13.4-35.0) % Seg Neutrophils # Man 18.6 H (1.8-7.7) K/mm3 Potassium (3.6-5.0) mmol/L Chloride (98-107) mmol/L Carbon Dioxide (22-30) mmol/L BUN (9-20) mg/dL Creatinine (0.8-1.3) mg/dL Glucose (75-100) mg/dL POC Glucose 179 H (70-105) Calcium (8.4-10.2) mg/dL Urine WBC (Auto) 34.0 H (0.0-6.0) /HPF Salicylates (2.8-20.0) mg/dL Acetaminophen (10.0-30.0) ug/mL 07/30/20 Range/Units 10:14 WBC (4.5-11.0) K/mm3 RBC (3.65-5.03) M/mm3 Hgb (11.8-15.2) gm/dl Hct (35.5-45.6) % MCV (84-94) fl MCH (28-32) pg MCHC (32-34) % RDW (13.2-15.2) % Seg Neuts % (Manual) (40.0-70.0) % Lymphocytes % (Manual) (13.4-35.0) % Seg Neutrophils # Man (1.8-7.7) K/mm3 Potassium 5.6 H (3.6-5.0) mmol/L Chloride (98-107) mmol/L Carbon Dioxide (22-30) mmol/L BUN 61 H (9-20) mg/dL Creatinine 14.2 H (0.8-1.3) mg/dL Glucose 132 H (75-100) mg/dL POC Glucose (70-105) Calcium 7.7 L (8.4-10.2) mg/dL Urine WBC (Auto) (0.0-6.0) /HPF Salicylates (2.8-20.0) mg/dL Acetaminophen (10.0-30.0) ug/mL All other labs normal. Assessment and Plan - Psychiatric problem (1) Depression Current Visit: Yes Status: Acute Qualifiers: Active/Remission status: currently active Major depression episode severity: moderate
[2020-07-30] MEDS: hydrALAZINE 100 MG TAB PO SCH ×3 (13:17→22:30)
[2020-07-30] MEDS: SERTRALINE 50 MG TAB PO SCH (13:17)
--- NOTE | 2020-07-30 14:31 | Progress Note ---
Assessment and Plan - Patient Problems (1) Hyperkalemia Current Visit: Yes Status: Acute Plan to address problem: Improved to normal (2) End-stage renal disease needing dialysis Current Visit: Yes Status: Chronic Plan to address problem: Continue hemodialysis (3) Erosive esophagitis Current Visit: Yes Status: Acute Plan to address problem: IV Protonix (4) Hypertensive urgency Current Visit: Yes Status: Acute Plan to address problem: Blood pressure readings are better (5) Gastroparesis Current Visit: Yes Status: Acute Plan to address problem: Symptomatic treatment (6) DVT prophylaxis Current Visit: No Status: Acute Plan to address problem: On heparin and GI prophylaxis Subjective Date of service: 07/30/20 Principal diagnosis: Hyperkalemia, end-stage renal disease, vomiting Interval history: Patient admitted for hyperkalemia, end-stage renal disease and persistent vomit ing. Patient is symptomatically better today. Patient missed hemodialysis for 1 week Objective - Constitutional Vitals: Vital Signs - 12hr 07/30/20 07/30/20 07/30/20 02:45 03:00 03:15 Temperature Pulse Rate 105 H 105 H 104 H Respiratory Rate Blood Pressure 182/100 184/101 179/98 Blood Pressure [Left] O2 Sat by Pulse Oximetry 07/30/20 07/30/20 07/30/20 03:30 04:10 04:38 Temperature 99.6 F 101.2 F H 101.3 F H Pulse Rate 104 H 105 H 102 H Respiratory 20 20 22 Rate Blood Pressure 178/98 184/93 Blood Pressure 164/85 [Left] O2 Sat by Pulse 88 91 Oximetry 07/30/20 07/30/20 07/30/20 05:51 06:00 06:35 Temperature 100.8 F H Pulse Rate 105 H Respiratory 22 Rate Blood Pressure Blood Pressure [Left] O2 Sat by Pulse 92 Oximetry 07/30/20 07/30/20 07/30/20 08:51 11:30 12:24 Temperature 98.7 F 98.7 F Pulse Rate 91 H 94 H 77 Respiratory 18 18 Rate Blood Pressure 165/85 116/62 Blood Pressure [Left] O2 Sat by Pulse 94 92 Oximetry General appearance: Present: no acute distress, well-nourished - EENT Eyes: PERRL, EOM intact ENT: hearing intact, clear oral mucosa Ears: bilateral: normal - Neck Neck: supple, normal ROM - Respiratory Respiratory effort: normal Respiratory: bilateral: CTA - Breasts Breasts: normal - Cardiovascular Heart rate: 78 Rhythm: regular Heart Sounds: Present: S1 & S2. Absent: gallop, rub Extremities: pulses intact, No edema, normal color, Full ROM - Gastrointestinal General gastrointestinal: Present: soft, non-tender, non-distended, normal bowel sounds - Genitourinary Male genitourinary: normal - Integumentary Integumentary: clear, warm, dry - Musculoskeletal Musculoskeletal: 1, strength equal bilaterally - Neurologic Neurologic: moves all extremities - Psychiatric Psychiatric: memory intact, appropriate mood/affect, intact judgment & insight - Labs CBC & Chem 7: 07/31/20 05:36 07/31/20 05:36 Labs: Abnormal lab results 07/29/20 07/29/20 07/29/20 Range/Units 16:06 16:06 16:06 WBC (4.5-11.0) K/mm3 RBC (3.65-5.03) M/mm3 Hgb (11.8-15.2) gm/dl Hct (35.5-45.6) % MCV (84-94) fl MCH (28-32) pg MCHC (32-34) % RDW (13.2-15.2) % Seg Neuts % (Manual) (40.0-70.0) % Lymphocytes % (Manual) (13.4-35.0) % Seg Neutrophils # Man (1.8-7.7) K/mm3 Potassium 6.5 H* (3.6-5.0) mmol/L Chloride 97.3 L (98-107) mmol/L Carbon Dioxide 16 L (22-30) mmol/L BUN 87 H (9-20) mg/dL Creatinine 20.9 H (0.8-1.3) mg/dL Glucose 172 H (75-100) mg/dL POC Glucose (70-105) Calcium 7.5 L (8.4-10.2) mg/dL Urine WBC (Auto) (0.0-6.0) /HPF Salicylates < 0.3 L (2.8-20.0) mg/dL Acetaminophen 5.0 L (10.0-30.0) ug/mL 07/29/20 07/29/20 07/30/20 Range/Units 16:06 Unknown 08:06 WBC 20.9 H (4.5-11.0) K/mm3 RBC 2.90 L (3.65-5.03) M/mm3 Hgb 7.0 L (11.8-15.2) gm/dl Hct 23.2 L (35.5-45.6) % MCV 80 L (84-94) fl MCH 24 L (28-32) pg MCHC 30 L (32-34) % RDW 21.7 H (13.2-15.2) % Seg Neuts % (Manual) 89.0 H (40.0-70.0) % Lymphocytes % (Manual) 6.0 L (13.4-35.0) % Seg Neutrophils # Man 18.6 H (1.8-7.7) K/mm3 Potassium (3.6-5.0) mmol/L Chloride (98-107) mmol/L Carbon Dioxide (22-30) mmol/L BUN (9-20) mg/dL Creatinine (0.8-1.3) mg/dL Glucose (75-100) mg/dL POC Glucose 179 H (70-105) Calcium (8.4-10.2) mg/dL Urine WBC (Auto) 34.0 H (0.0-6.0) /HPF Salicylates (2.8-20.0) mg/dL Acetaminophen (10.0-30.0) ug/mL 07/30/20 07/30/20 Range/Units 10:14 12:41 WBC (4.5-11.0) K/mm3 RBC (3.65-5.03) M/mm3 Hgb (11.8-15.2) gm/dl Hct (35.5-45.6) % MCV (84-94) fl MCH (28-32) pg MCHC (32-34) % RDW (13.2-15.2) % Seg Neuts % (Manual) (40.0-70.0) % Lymphocytes % (Manual) (13.4-35.0) % Seg Neutrophils # Man (1.8-7.7) K/mm3 Potassium 5.6 H (3.6-5.0) mmol/L Chloride (98-107) mmol/L Carbon Dioxide (22-30) mmol/L BUN 61 H (9-20) mg/dL Creatinine 14.2 H (0.8-1.3) mg/dL Glucose 132 H (75-100) mg/dL POC Glucose 129 H (70-105) Calcium 7.7 L (8.4-10.2) mg/dL Urine WBC (Auto) (0.0-6.0) /HPF Salicylates (2.8-20.0) mg/dL Acetaminophen (10.0-30.0) ug/mL
[2020-07-30] MEDS ORDERED: SODIUM CHLORIDE 0.9% 100 ML IV PRN (15:25)
[2020-07-30] MEDS ORDERED: SODIUM POLYSTYRENE 15 GM/60 ML ORAL LIQD PO ONE (16:00)
[2020-07-30] MEDS: PANTOPRAZOLE 40 MG TAB PO SCH ×2 (22:03→22:30)
[2020-07-31] MEDS: hydrALAZINE 100 MG TAB PO SCH ×4 (00:22→22:40)
[2020-07-31] MEDS: cloNIDine 0.1 MG TAB PO SCH ×3 (00:24→22:40)
[2020-07-31] MEDS: APIXABAN 5 MG TAB PO SCH ×3 (00:25→22:40)
[2020-07-31] MEDS: PANTOPRAZOLE 40 MG TAB PO SCH ×2 (00:26→22:40)
[2020-07-31] MEDS ORDERED: VANCOMYCIN PHARMACY TO DOSE IV SCH (06:00)
[2020-07-31 06:12] LABS: Basophils # (Auto) 0.1 K/mm3 (0.0-0.1); Basophils % (Auto) 0.4 % (0.0-1.8); Eosinophils % (Auto) 0.1 % (0.0-4.3); Hematocrit 22.3 % (35.5-45.6); Lymphocytes # (Auto) 0.6 K/mm3 (1.2-5.4); Mean Corpuscular HGB Conc 31 % (32-34); Mean Corpuscular Volume 78 fl (84-94); Monocytes % (Auto) 6.2 % (0.0-7.3); Platelet Count 332 K/mm3 (140-440); Red Blood Count 2.87 M/mm3 (3.65-5.03)
[2020-07-31 06:15] LABS: Red Cell Distribution Width 21.5 % (13.2-15.2)
[2020-07-31 06:19] LABS: INR 1.91 (0.87-1.13)
[2020-07-31 06:24] LABS: Calcium 7.8 mg/dL (8.4-10.2)
[2020-07-31] MEDS ORDERED: VANCOMYCIN 1,750 MG in SODIUM CHLORIDE 0.9% 500 ML 500 ML IV ONE (06:30)
[2020-07-31] MEDS: INSULIN LISPRO 100 UNIT/ML VIAL 3 mL SUB-Q SCH ×4 (08:30→22:41)
[2020-07-31] MEDS: SERTRALINE 50 MG TAB PO SCH (09:51)
[2020-07-31] MEDS: carvediloL 25 MG TAB PO SCH ×2 (09:51→18:17)
[2020-07-31] MEDS: cefTRIAXone/NS 1 GM/50 ML 1 GM/50 ML BAG IV SCH (09:52)
[2020-07-31] MEDS ORDERED: SODIUM CHLORIDE 0.9% 100 ML IV PRN (11:04)
--- NOTE | 2020-07-31 11:06 | Progress Note ---
Assessment and Plan ESRD on Hemodialysis: Hyperkalemia: Abdominal Pain: HTN: Possible UTI: Depression: ACD due to ESRD: -s/p HD yesterday, no HD today, HD tomorrow. -Epogen for ACD -Renally dose all meds -Strict I/Os Vaibhav Browning MD [phone] Subjective Date of service: 07/31/20 Principal diagnosis: Hyperkalemia, end-stage renal disease, vomiting Interval history: Tolerated HD yesterday. Objective - Exam Narrative Exam: General appearance: Present: no acute distress, well-nourished - EENT Eyes: Present: PERRL, EOM intact ENT: hearing intact, clear oral mucosa, dentition normal - Neck Neck: Present: supple, normal ROM - Respiratory Respiratory effort: normal Respiratory: bilateral: CTA - Cardiovascular Rhythm: other (left perm cath) Heart Sounds: Present: S1 & S2. Absent: gallop, systolic murmur, diastolic murmur, rub - Extremities Extremities: no ischemia, pulses intact, pulses symmetrical, No edema, Full ROM Peripheral Pulses: within normal limits - Abdominal General gastrointestinal: Present: soft, non-tender, non-distended, normal bowel sounds. Absent: mass - Integumentary Integumentary: Present: clear, warm, dry - Musculoskeletal Musculoskeletal: strength equal bilaterally - Psychiatric Psychiatric: appropriate mood/affect, intact judgment & insight, memory intact, cooperative, other (Appears mildly anxious) - Neurologic Neurologic: CNII-XII intact, moves all extremities - Vital Signs Vital signs: Vital Signs - 12hr 07/31/20 07/31/20 07/31/20 00:15 03:00 04:18 Temperature 99.0 F 99.1 F Pulse Rate 94 H 94 H 93 H Respiratory 20 18 Rate Blood Pressure 154/82 148/83 O2 Sat by Pulse 91 95 Oximetry 07/31/20 07/31/20 07/31/20 07:58 09:50 09:51 Temperature 98.7 F Pulse Rate 94 H 94 H Respiratory 18 Rate Blood Pressure 135/77 135/77 135/77 O2 Sat by Pulse 95 Oximetry - Lab 07/31/20 05:36 07/31/20 05:36 Most recent lab results Calcium 7.8 mg/dL (8.4-10.2) L 07/31/20 05:36 Medications & Allergies - Medications Allergies/Adverse Reactions: Allergies No Known Allergies Allergy (Verified 07/20/20 15:05) Home Medications: Home Medications Medication Instructions Recorded Confirmed Last Taken Type Albuterol Sulfate [Albuterol 0.63% 0.63 mg IH Q4HR PRN #50 04/17/20 07/30/20 05/30/20 Rx NEBS] Lispro Insulin [HumaLOG] 5 unit SQ AC #1 vial 04/17/20 07/30/20 06/15/20 Rx Apixaban [Eliquis] 1 tab PO BID #60 tablet 07/17/20 07/30/20 07/22/20 08:00 Rx Insulin Glargine [Lantus VIAL] 10 units SUB-Q QHS units 07/17/20 07/30/20 07/21/20 20:00 Rx Metoclopramide [Reglan TAB] 5 mg PO ACHS PRN #120 tablet 07/17/20 07/30/20 07/22/20 08:00 Rx Pantoprazole [Protonix TAB] 40 mg PO DAILY #60 tablet 07/17/20 07/30/20 07/22/20 08:00 Rx amLODIPine 10 mg PO DAILY #30 tablet 07/17/20 07/30/20 07/22/20 08:00 Rx carvediloL [Coreg] 25 mg PO BID 30 Days #60 tablet 07/17/20 07/30/20 07/22/20 08:00 Rx cloNIDine [Catapres] 0.1 mg PO BID #60 tablet 07/17/20 07/30/20 07/22/20 08:00 Rx hydrALAZINE [Apresoline TAB] 100 mg PO Q8HR #90 tab 07/17/20 07/30/20 07/22/20 08:00 Rx Active Medications: Generic Name Dose Route Start Last Admin Trade Name Freq PRN Reason Stop Dose Admin Acetaminophen 650 mg 07/30/20 00:41 07/30/20 05:36 Tylenol PO 650 mg Q4H PRN Administration Pain MILD(1-3)/Fever >100.5/LANZA Albuterol 0.63 mg 07/30/20 07:01 Proventil IH Q4HRT PRN Shortness Of Breath Amlodipine Besylate 10 mg 07/30/20 10:00 07/30/20 10:21 Amlodipine PO 10 mg DAILY KESHIA Administration Apixaban 5 mg 07/30/20 10:00 07/31/20 09:51 Eliquis PO 5 mg BID KESHIA Administration Protocol Carvedilol 25 mg 07/30/20 08:00 07/31/20 09:51 Coreg PO 25 mg BID@0800,1700 KESHIA Administration Clonidine HCl 0.1 mg 07/30/20 10:00 07/31/20 09:50 Catapres PO 0.1 mg BID KESHIA Administration Dextrose 0 ml 07/30/20 00:41 D50w (25gm) Syringe IV Q30MIN PRN Hypoglycemia Protocol Hydralazine HCl 100 mg 07/30/20 14:00 07/31/20 06:25 Apresoline PO 100 mg Q8HR KESHIA Administration Sodium Chloride 100 mls @ 999 mls/hr 07/29/20 22:58 Nacl 0.9% IV BRENDAN PRN Hypotension Ceftriaxone Sodium 1 gm in 50 mls @ 100 mls/hr 07/30/20 10:00 07/31/20 09:52 Rocephin/Ns 1 Gm/50 Ml IV 100 mls/hr Q24HR KESHIA Administration Protocol Sodium Chloride 100 mls @ 999 mls/hr 07/31/20 11:04 Nacl 0.9% IV BRENDAN PRN Hypotension Insulin Human Lispro 0 unit 07/30/20 07:30 07/31/20 08:30 Humalog SUB-Q Not Given ACHS KESHIA Protocol Magnesium Hydroxide 30 ml 07/30/20 00:41 Milk Of Magnesia PO Q4H PRN Constipation Ondansetron HCl 4 mg 07/30/20 00:41 07/30/20 22:01 Zofran IV 4 mg Q8H PRN Administration Nausea And Vomiting Pantoprazole Sodium 40 mg 07/30/20 22:00 07/30/20 22:30 Protonix PO 40 mg QHS KESHIA Administration Sertraline HCl 50 mg 07/30/20 12:00 07/31/20 09:51 Zoloft PO 50 mg DAILY KESHIA Administration Sodium Chloride 10 ml 07/30/20 10:00 07/31/20 09:59 Sodium Chloride Flush Syringe 10 Ml IV 10 ml BID KESHIA Administration Sodium Chloride 10 ml 07/30/20 00:41 Sodium Chloride Flush Syringe 10 Ml IV PRN PRN LINE FLUSH Sodium Polystyrene Sulfonate 30 gm 07/31/20 11:03 Kionex PO 07/31/20 11:04 ONCE ONE
[2020-07-31] MEDS: amLODIPine 10 MG TAB PO SCH (11:23)
[2020-07-31] MEDS ORDERED: SODIUM POLYSTYRENE 15 GM/60 ML ORAL LIQD PO ONE (11:30)
[2020-07-31] MEDS ORDERED: SODIUM CHLORIDE 0.9% 500 ML 500 ML IV NR (19:44)
--- NOTE | 2020-07-31 19:46 | Progress Note ---
Assessment and Plan Assessment and plan: --Sepsis ; secondary to UTI : POA Current Visit: Yes Status: Chronic Plan to address problem: Fever, leukocytosis, positive urine cultures ESBL Continue antibiotics Zosyn, ID consult --Sepsis ; secondary to staph bacteremia Current Visit: Yes Status: Chronic Plan to address problem: Vancomycin renal dose. Follow sensitivities Severe sepsis, ID consult --Hyperkalemia Current Visit: Yes Status: Acute . Plan to address problem: Improved to normal -- End-stage renal disease needing dialysis Current Visit: Yes Status: Chronic Plan to address problem: On hemodialysis , HD per schedule Nephrology following --Anemia; Hb 7.0 Current Visit: Yes Status: Chronic Plan to address problem: Multifactorial , anemia of chronic disease Secondary to erosive esophagitis , transfuse 1 unit of PRBC during dialysis Closely monitor H&H, transfuse additional PRBC as needed Procrit during dialysis --Erosive esophagitis Current Visit: Yes Status: Acute Plan to address problem: IV Protonix, GI consult if needed -- Hypertensive urgency/POA Current Visit: Yes Status: Acute Plan to address problem: Blood pressure moderate control Continue current antihypertensives and PRN medications --Gastroparesis Current Visit: Yes Status: Acute Plan to address problem: Symptomatic treatment Antiemetics, Reglan as needed. --Depression; Current Visit: Yes Status: Acute Plan to address problem: Denies suicidal thoughts or ideation Psych evaluation noted and appreciated Continue Zoloft -- DVT prophylaxis Current Visit: No Status: Acute Plan to address problem: On heparin and GI prophylaxis Protonix We will closely monitor the patient and adjust management as needed Patient is critically ill with severe sepsis, anemia Poor prognosis, Follow chain sales consultant recommendations Plan of care reviewed with the patient and his nurse History Interval history: I have seen and examined the patient at the bedside this evening Patient's chart and medications reviewed Patient has been positive blood and urine cultures Sepsis and critically ill. Complains of generalized weakness Afebrile Vital signs reviewed Hospitalist Physical - Constitutional Vitals: Temp Pulse Resp BP Pulse Ox 98.9 F 82 18 119/62 91 07/31/20 16:47 07/31/20 16:47 07/31/20 16:47 07/31/20 16:47 07/31/20 16:47 General appearance: Present: mild distress, well-nourished, other (Chronically ill looking) - EENT Eyes: Present: PERRL, EOM intact - Neck Neck: Present: supple, normal ROM - Respiratory Respiratory effort: normal Respiratory: bilateral: diminished, rales, negative: rhonchi, wheezing - Cardiovascular Rhythm: regular Heart Sounds: Present: S1 & S2 - Extremities Extremities: no ischemia, No edema - Abdominal General gastrointestinal: soft, non-tender, non-distended, normal bowel sounds - Integumentary Integumentary: Present: clear, warm - Psychiatric Psychiatric: appropriate mood/affect, cooperative - Neurologic Neurologic: moves all extremities Results - Labs CBC & Chem 7: 07/31/20 05:36 07/31/20 05:36 Labs: Laboratory Last Values WBC 16.0 K/mm3 (4.5-11.0) H 07/31/20 05:36 RBC 2.87 M/mm3 (3.65-5.03) L 07/31/20 05:36 Hgb 7.0 gm/dl (11.8-15.2) L 07/31/20 05:36 Hct 22.3 % (35.5-45.6) L 07/31/20 05:36 MCV 78 fl (84-94) L 07/31/20 05:36 MCH 24 pg (28-32) L 07/31/20 05:36 MCHC 31 % (32-34) L 07/31/20 05:36 RDW 21.5 % (13.2-15.2) H 07/31/20 05:36 Plt Count 332 K/mm3 (140-440) 07/31/20 05:36 Lymph % (Auto) 4.0 % (13.4-35.0) L 07/31/20 05:36 Hardy % (Auto) 6.2 % (0.0-7.3) 07/31/20 05:36 Eos % (Auto) 0.1 % (0.0-4.3) 07/31/20 05:36 Baso % (Auto) 0.4 % (0.0-1.8) 07/31/20 05:36 Lymph # 0.6 K/mm3 (1.2-5.4) L 07/31/20 05:36 Hardy # 1.0 K/mm3 (0.0-0.8) H 07/31/20 05:36 Eos # 0.0 K/mm3 (0.0-0.4) 07/31/20 05:36 Baso # 0.1 K/mm3 (0.0-0.1) 07/31/20 05:36 Add Manual Diff Complete 07/29/20 16:06 Total Counted 100 07/29/20 16:06 Seg Neutrophils % 89.3 % (40.0-70.0) H 07/31/20 05:36 Seg Neuts % (Manual) 89.0 % (40.0-70.0) H 07/29/20 16:06 Band Neutrophils % 0 % 07/29/20 16:06 Lymphocytes % (Manual) 6.0 % (13.4-35.0) L 07/29/20 16:06 Reactive Lymphs % (Man) 0 % 07/29/20 16:06 Monocytes % (Manual) 4.0 % (0.0-7.3) 07/29/20 16:06 Eosinophils % (Manual) 1.0 % (0.0-4.3) 07/29/20 16:06 Basophils % (Manual) 0 % (0.0-1.8) 07/29/20 16:06 Metamyelocytes % 0 % 07/29/20 16:06 Myelocytes % 0 % 07/29/20 16:06 Promyelocytes % 0 % 07/29/20 16:06 Blast Cells % 0 % 07/29/20 16:06 Nucleated RBC % Not Reportable 07/29/20 16:06 Seg Neutrophils # 14.3 K/mm3 (1.8-7.7) H 07/31/20 05:36 Seg Neutrophils # Man 18.6 K/mm3 (1.8-7.7) H 07/29/20 16:06 Band Neutrophils # 0.0 K/mm3 07/29/20 16:06 Lymphocytes # (Manual) 1.3 K/mm3 (1.2-5.4) 07/29/20 16:06 Abs React Lymphs (Man) 0.0 K/mm3 07/29/20 16:06 Monocytes # (Manual) 0.8 K/mm3 (0.0-0.8) 07/29/20 16:06 Eosinophils # (Manual) 0.2 K/mm3 (0.0-0.4) 07/29/20 16:06 Basophils # (Manual) 0.0 K/mm3 (0.0-0.1) 07/29/20 16:06 Metamyelocytes # 0.0 K/mm3 07/29/20 16:06 Myelocytes # 0.0 K/mm3 07/29/20 16:06 Promyelocytes # 0.0 K/mm3 07/29/20 16:06 Blast Cells # 0.0 K/mm3 07/29/20 16:06 WBC Morphology Not Reportable 07/29/20 16:06 Hypersegmented Neuts Not Reportable 07/29/20 16:06 Hyposegmented Neuts Not Reportable 07/29/20 16:06 Hypogranular Neuts Not Reportable 07/29/20 16:06 Smudge Cells Not Reportable 07/29/20 16:06 Toxic Granulation Not Reportable 07/29/20 16:06 Toxic Vacuolation Not Reportable 07/29/20 16:06 Dohle Bodies Not Reportable 07/29/20 16:06 Pelger-Huet Anomaly Not Reportable 07/29/20 16:06 Julio Cesar Rods Not Reportable 07/29/20 16:06 Platelet Estimate Not Reportable 07/29/20 16:06 Clumped Platelets Not Reportable 07/29/20 16:06 Plt Clumps, EDTA Not Reportable 07/29/20 16:06 Large Platelets Not Reportable 07/29/20 16:06 Giant Platelets Not Reportable 07/29/20 16:06 Platelet Satelliting Not Reportable 07/29/20 16:06 Plt Morphology Comment Not Reportable 07/29/20 16:06 RBC Morphology Not Reportable 07/29/20 16:06 Dimorphic RBCs Not Reportable 07/29/20 16:06 Polychromasia Not Reportable 07/29/20 16:06 Hypochromasia 1+ 07/29/20 16:06 Poikilocytosis Not Reportable 07/29/20 16:06 Anisocytosis 1+ 07/29/20 16:06 Microcytosis Few 07/29/20 16:06 Macrocytosis Not Reportable 07/29/20 16:06 Spherocytes Not Reportable 07/29/20 16:06 Pappenheimer Bodies Not Reportable 07/29/20 16:06 Sickle Cells Not Reportable 07/29/20 16:06 Target Cells Not Reportable 07/29/20 16:06 Tear Drop Cells Not Reportable 07/29/20 16:06 Ovalocytes Not Reportable 07/29/20 16:06 Helmet Cells Not Reportable 07/29/20 16:06 [place] Bodies Not Reportable 07/29/20 16:06 [place] Rings Not Reportable 07/29/20 16:06 [place] Cells Not Reportable 07/29/20 16:06 Bite Cells Not Reportable 07/29/20 16:06 Crenated Cell Not Reportable 07/29/20 16:06 Elliptocytes Not Reportable 07/29/20 16:06 Acanthocytes (Spur) Not Reportable 07/29/20 16:06 Rouleaux Not Reportable 07/29/20 16:06 Hemoglobin C Crystals Not Reportable 07/29/20 16:06 Schistocytes Not Reportable 07/29/20 16:06 Malaria parasites Not Reportable 07/29/20 16:06 David Bodies Not Reportable 07/29/20 16:06 Hem Pathologist Commnt No 07/29/20 16:06 PT 22.3 Sec. (12.2-14.9) H 07/31/20 05:36 INR 1.91 (0.87-1.13) H 07/31/20 05:36 Sodium 138 mmol/L (137-145) 07/31/20 05:36 Potassium 5.1 mmol/L (3.6-5.0) H 07/31/20 05:36 Chloride 95.1 mmol/L (98-107) L 07/31/20 05:36 Carbon Dioxide 22 mmol/L (22-30) 07/31/20 05:36 Anion Gap 26 mmol/L 07/31/20 05:36 BUN 37 mg/dL (9-20) H 07/31/20 05:36 Creatinine 9.3 mg/dL (0.8-1.3) H 07/31/20 05:36 Estimated GFR 8 ml/min 07/31/20 05:36 BUN/Creatinine Ratio 4 % 07/31/20 05:36 Glucose 169 mg/dL (75-100) H 07/31/20 05:36 POC Glucose 204 (70-105) H 07/31/20 17:03 Calcium 7.8 mg/dL (8.4-10.2) L 07/31/20 05:36 Urine Color Yellow (Yellow) 07/29/20 Unknown Urine Turbidity Slightly-cloudy (Clear) 07/29/20 Unknown Urine pH 6.0 (5.0-7.0) 07/29/20 Unknown Ur Specific [place] 1.024 (1.003-1.030) 07/29/20 Unknown Urine Protein >500 mg/dL (Negative) 07/29/20 Unknown Urine Glucose (UA) >=500 mg/dL (Negative) 07/29/20 Unknown Urine Ketones Tr mg/dL (Negative) 07/29/20 Unknown Urine Blood Sm (Negative) 07/29/20 Unknown Urine Nitrite Neg (Negative) 07/29/20 Unknown Urine Bilirubin Neg (Negative) 07/29/20 Unknown Urine Urobilinogen < 2.0 mg/dL (<2.0) 07/29/20 Unknown Ur Leukocyte Esterase Tr (Negative) 07/29/20 Unknown Urine WBC (Auto) 34.0 /HPF (0.0-6.0) H 07/29/20 Unknown Urine RBC (Auto) 9.0 /HPF (0.0-6.0) 07/29/20 Unknown U Epithel Cells (Auto) 1.0 /HPF (0-13.0) 07/29/20 Unknown Urine Bacteria (Auto) 1+ /HPF (Negative) 07/29/20 Unknown Urine Yeast ([place]) 1+ /HPF 07/29/20 Unknown Salicylates < 0.3 mg/dL (2.8-20.0) L 07/29/20 16:06 Urine Opiates Screen Presumptive negative 07/29/20 Unknown Urine Methadone Screen Presumptive negative 07/29/20 Unknown Acetaminophen 5.0 ug/mL (10.0-30.0) L 07/29/20 16:06 Ur Barbiturates Screen Presumptive negative 07/29/20 Unknown Ur Phencyclidine Scrn Presumptive negative 07/29/20 Unknown Ur Amphetamines Screen Presumptive negative 07/29/20 Unknown U Benzodiazepines Scrn Presumptive negative 07/29/20 Unknown Urine Cocaine Screen Presumptive negative 07/29/20 Unknown U Marijuana (THC) Screen Presumptive negative 07/29/20 Unknown Drugs of Abuse Note Disclamer 07/29/20 Unknown Plasma/Serum Alcohol < 0.01 % (0-0.07) 07/29/20 16:06 Hepatitis A IgM Ab Non-reactive (NonReactive) 07/30/20 05:31 Hep Bs Antigen Non-reactive (Negative) 07/30/20 05:31 Hep B Core IgM Ab Non-reactive (NonReactive) 07/30/20 05:31 Hepatitis C Antibody Non-reactive (NonReactive) 07/30/20 05:31 Microbiology: Microbiology 07/30/20 06:03 Peripheral/Venous Blood Culture - Preliminary Staphylococcus Aureus 07/31/20 15:42 Peripheral/Venous Blood Culture - Preliminary Culture in Progress 07/31/20 15:42 Peripheral/Venous Blood Culture - Preliminary Culture in Progress 07/30/20 05:31 Peripheral/Venous Blood Culture - Preliminary Staphylococcus Aureus 07/29/20 Unknown Urine,Clean Catch Urine Culture - Preliminary Escherichia Coli Perez/IV: Voiding Method Urinal IV Catheter Type [Left INT / Saline Lock External Jugular] IV Catheter Type [Left Chest] VAS Cath Active Medications - Current Medications Current Medications: Generic Name Dose Route Start Last Admin Trade Name Freq PRN Reason Stop Dose Admin Acetaminophen 650 mg 07/30/20 00:41 07/30/20 05:36 Tylenol PO 650 mg Q4H PRN Administration Pain MILD(1-3)/Fever >100.5/LANZA Albuterol 0.63 mg 07/30/20 07:01 Proventil IH Q4HRT PRN Shortness Of Breath Amlodipine Besylate 10 mg 07/30/20 10:00 07/31/20 11:23 Amlodipine PO 10 mg DAILY KESHIA Administration Apixaban 5 mg 07/30/20 10:00 07/31/20 09:51 Eliquis PO 5 mg BID KESHIA Administration Protocol Carvedilol 25 mg 07/30/20 08:00 07/31/20 18:17 Coreg PO 25 mg BID@0800,1700 KESHIA Administration Clonidine HCl 0.1 mg 07/30/20 10:00 07/31/20 09:50 Catapres PO 0.1 mg BID KESHIA Administration Dextrose 0 ml 07/30/20 00:41 D50w (25gm) Syringe IV Q30MIN PRN Hypoglycemia Protocol Hydralazine HCl 100 mg 07/30/20 14:00 07/31/20 13:32 Apresoline PO 100 mg Q8HR KESHIA Administration Sodium Chloride 100 mls @ 999 mls/hr 07/29/20 22:58 Nacl 0.9% IV BRENDAN PRN Hypotension Ceftriaxone Sodium 1 gm in 50 mls @ 100 mls/hr 07/30/20 10:00 07/31/20 09:52 Rocephin/Ns 1 Gm/50 Ml IV 100 mls/hr Q24HR KESHIA Administration Protocol Sodium Chloride 100 mls @ 999 mls/hr 07/31/20 11:04 Nacl 0.9% IV BRENDAN PRN Hypotension Piperacillin Sod/Tazobactam 50 mls @ 100 mls/hr 08/01/20 22:00 Sod 0.75 gm/ Sodium Chloride IV [id number]@2200 KESHIA Protocol Sodium Chloride 500 mls @ 0 mls/hr 07/31/20 19:44 Nacl 0.9% 500 Ml IV 07/31/20 19:45 ONCE ONE As Directed Insulin Human Lispro 0 unit 07/30/20 07:30 07/31/20 18:18 Humalog SUB-Q 3 unit ACHS KESHIA Administration Protocol Magnesium Hydroxide 30 ml 07/30/20 00:41 Milk Of Magnesia PO Q4H PRN Constipation Ondansetron HCl 4 mg 07/30/20 00:41 07/30/20 22:01 Zofran IV 4 mg Q8H PRN Administration Nausea And Vomiting Pantoprazole Sodium 40 mg 07/30/20 22:00 07/30/20 22:30 Protonix PO 40 mg QHS KESHIA Administration Sertraline HCl 50 mg 07/30/20 12:00 07/31/20 09:51 Zoloft PO 50 mg DAILY KESHIA Administration Sodium Chloride 10 ml 07/30/20 10:00 07/31/20 09:59 Sodium Chloride Flush Syringe 10 Ml IV 10 ml BID KESHIA Administration Sodium Chloride 10 ml 07/30/20 00:41 Sodium Chloride Flush Syringe 10 Ml IV PRN PRN LINE FLUSH Nutrition/Malnutrition Assess - Dietary Evaluation Nutrition/Malnutrition Findings: Nutrition Notes Start: 07/30/20 10:57 Freq: Status: Active Protocol: Document 07/30/20 10:58 YARELI (Rec: 07/30/20 11:15 YARELI [id number]) Co-Sign 07/30/20 10:58 LP Nutrition Notes Need for Assessment generated from: MD Order,Education Initial or Follow up Assessment Current Diagnosis CKD (stage V CKD),Diabetes, Hypertension Other Pertinent Diagnosis ESRD - HD, Abd pain, hx of erosive esophagitis, gastroparesis Current Diet Cardiac/Consistent CHO/Renal Labs/Tests K 6.5 Pertinent Medications Reviewed Height 6 ft 3 in Weight 87.6 kg Usual Body Weight 93.6 kg [place] Body Weight (kg) 89.09 BMI 24.1 Intake Prior to Admission Fair Weight change and time frame 6% weight loss in one month Weight Status Appropriate Subjective/Other Information MD consult for diet education. Pt was given some renal and DM education but started vomiting before complete and reports still having questions . Pt reports wt loss to decreased appetitie. Pt reports having an appetite today but unable to consume food. Burn Absent Trauma Absent GI Symptoms Nausea,Vomiting Current % PO Negligible Minimum of two criteria No Interpretation of Weight Loss (severe) >2% in 1 week #2 Nutrition Diagnosis Food and nutrition-related knowledge deficit Etiology Not understanding prior nutrition education As Evidenced by Signs and Symptoms Pt had questions about what foods to eat #1 Nutrition Diagnosis Inadequate oral intake Etiology Abdominal pain, missed HD As Evidenced by Signs and Symptoms N/V Is patient on ventilator? No Is Patient Ambulatory and/or Out of Bed Yes REE-([place]. Jeor-ambulatory/OOB) [ 2485.119 [id number]] Calculation Used for Recommendations [place] or Additional Notes Pro: >105g (>1.2g/kg) Fluid: 1ml/kcal or per MD Nutrition Intervention Change Diet Order: Renal/consistent CHO Teaching Recipient Patient Learning Readiness Fair Teaching Methods Discussion Response to Teaching Reinforcement needed Education Handouts Provided ESRD Diet Tips ESRD on HD Food List Barriers to Learning Physical RD phone number provided Yes Patient aware of follow up options Yes Goal #1 Understand ESRD and DM diet edu Goal #2 Meet at least 80% of protein and energy needs via PO intakes Anticipated Discharge Needs: Renal, Consistent CHO Follow-Up By: 08/02/20 Additional Comments FU for intakes and diet education
[2020-07-31] MEDS: PIPERACIL-TAZO 2.25 GM/50 ML 2.25 GM/50 ML BAG IV SCH (22:39)
[2020-08-01] MEDS: PIPERACIL-TAZO 2.25 GM/50 ML 2.25 GM/50 ML BAG IV SCH ×2 (05:34→15:26)
[2020-08-01] MEDS: hydrALAZINE 100 MG TAB PO SCH ×3 (05:34→21:31)
[2020-08-01 07:08] LABS: Basophils # (Auto) 0.1 K/mm3 (0.0-0.1); Basophils % (Auto) 0.5 % (0.0-1.8); Eosinophils # (Auto) 0.1 K/mm3 (0.0-0.4); Eosinophils % (Auto) 0.5 % (0.0-4.3); Hematocrit 22.6 % (35.5-45.6); Lymphocytes # (Auto) 0.8 K/mm3 (1.2-5.4); Lymphocytes % (Auto) 6.6 % (13.4-35.0); Mean Corpuscular HGB Conc 31 % (32-34); Mean Corpuscular Volume 77 fl (84-94); Monocytes # (Auto) 1.2 K/mm3 (0.0-0.8); Monocytes % (Auto) 9.6 % (0.0-7.3); Platelet Count 344 K/mm3 (140-440); Red Blood Count 2.92 M/mm3 (3.65-5.03)
[2020-08-01 07:11] LABS: Red Cell Distribution Width 21.2 % (13.2-15.2)
[2020-08-01 07:37] LABS: Calcium 7.5 mg/dL (8.4-10.2)
[2020-08-01] MEDS: carvediloL 25 MG TAB PO SCH ×2 (08:53→16:46)
[2020-08-01] MEDS ORDERED: SODIUM CHLORIDE 0.9% 100 ML IV PRN (09:00)
--- NOTE | 2020-08-01 09:05 | Progress Note ---
Assessment and Plan Assessment and plan: --Severe sepsis ; secondary to UTI : POA Current Visit: Yes Status: Chronic Plan to address problem: Fever, leukocytosis, positive urine cultures ESBL Patient on Zosyn, consider meropenem ID consult --Severe sepsis ; secondary to staph bacteremia Current Visit: Yes Status: Chronic Plan to address problem: Vancomycin renal dose. Follow sensitivities Severe sepsis, ID evaluation noted and appreciated We will check transthoracic echocardiogram And EWELINA if needed --Hyperkalemia Current Visit: Yes Status: Acute . Plan to address problem: Improved to normal -- End-stage renal disease needing dialysis Current Visit: Yes Status: Chronic Plan to address problem: On hemodialysis , HD per schedule Nephrology following --Anemia; Hb 7.0 Current Visit: Yes Status: Chronic Plan to address problem: Multifactorial , anemia of chronic disease Secondary to erosive esophagitis , transfuse 1 unit of PRBC during dialysis Closely monitor H&H, transfuse additional PRBC as needed Procrit during dialysis --Erosive esophagitis Current Visit: Yes Status: Acute Plan to address problem: IV Protonix, GI consult if needed -- Hypertensive urgency/POA Current Visit: Yes Status: Acute Plan to address problem: Blood pressure moderate control Continue current antihypertensives and PRN medications --Gastroparesis Current Visit: Yes Status: Acute Plan to address problem: Symptomatic treatment Antiemetics, Reglan as needed. --Depression; Current Visit: Yes Status: Acute Plan to address problem: Denies suicidal thoughts or ideation Psych evaluation noted and appreciated Continue Zoloft --Medical noncompliance; Current Visit: Yes Status: Acute Plan to address problem: patient strongly counseled the importance of adhering to the treatment plan Adhere to medications diet follow-up visit hemodialysis Patient verbalized understanding -- DVT prophylaxis Current Visit: No Status: Acute Plan to address problem: On heparin and GI prophylaxis Protonix We will closely monitor the patient and adjust management as needed Patient is critically ill with severe sepsis, anemia Poor prognosis, Follow cycle consultant recommendations Plan of care reviewed with the patient and his nurse History Interval history: I have seen and examined the patient at the bedside today Patient's chart and medications reviewed Severe sepsis with staph aureus bacteremia, And ESBL UTI ID evaluation and recommendations noted and appreciated Patient is afebrile, No new complaints Vital signs reviewed Hospitalist Physical - Constitutional Vitals: Temp Pulse Resp BP Pulse Ox 99.2 F 76 20 101/53 92 08/01/20 04:11 08/01/20 04:11 08/01/20 04:11 08/01/20 04:11 08/01/20 04:11 General appearance: Present: mild distress, well-nourished, other (Chronically ill looking) - EENT Eyes: Present: PERRL, EOM intact - Neck Neck: Present: supple, normal ROM - Respiratory Respiratory effort: normal Respiratory: bilateral: diminished, rales, negative: rhonchi, wheezing - Cardiovascular Rhythm: regular Heart Sounds: Present: S1 & S2 - Extremities Extremities: no ischemia, No edema - Abdominal General gastrointestinal: soft, non-tender, non-distended, normal bowel sounds - Integumentary Integumentary: Present: clear, warm - Psychiatric Psychiatric: appropriate mood/affect, cooperative - Neurologic Neurologic: CNII-XII intact, moves all extremities Results - Labs CBC & Chem 7: 08/01/20 06:32 08/01/20 06:32 Labs: Laboratory Last Values WBC 12.3 K/mm3 (4.5-11.0) H 08/01/20 06:32 RBC 2.92 M/mm3 (3.65-5.03) L 08/01/20 06:32 Hgb 7.0 gm/dl (11.8-15.2) L 08/01/20 06:32 Hct 22.6 % (35.5-45.6) L 08/01/20 06:32 MCV 77 fl (84-94) L 08/01/20 06:32 MCH 24 pg (28-32) L 08/01/20 06:32 MCHC 31 % (32-34) L 08/01/20 06:32 RDW 21.2 % (13.2-15.2) H 08/01/20 06:32 Plt Count 344 K/mm3 (140-440) 08/01/20 06:32 Lymph % (Auto) 6.6 % (13.4-35.0) L 08/01/20 06:32 [place] % (Auto) 9.6 % (0.0-7.3) H 08/01/20 06:32 Eos % (Auto) 0.5 % (0.0-4.3) 08/01/20 06:32 Baso % (Auto) 0.5 % (0.0-1.8) 08/01/20 06:32 Lymph # 0.8 K/mm3 (1.2-5.4) L 08/01/20 06:32 Loving # 1.2 K/mm3 (0.0-0.8) H 08/01/20 06:32 Eos # 0.1 K/mm3 (0.0-0.4) 08/01/20 06:32 Baso # 0.1 K/mm3 (0.0-0.1) 08/01/20 06:32 Add Manual Diff Complete 07/29/20 16:06 Total Counted 100 07/29/20 16:06 Seg Neutrophils % 82.8 % (40.0-70.0) H 08/01/20 06:32 Seg Neuts % (Manual) 89.0 % (40.0-70.0) H 07/29/20 16:06 Band Neutrophils % 0 % 07/29/20 16:06 Lymphocytes % (Manual) 6.0 % (13.4-35.0) L 07/29/20 16:06 Reactive Lymphs % (Man) 0 % 07/29/20 16:06 Monocytes % (Manual) 4.0 % (0.0-7.3) 07/29/20 16:06 Eosinophils % (Manual) 1.0 % (0.0-4.3) 07/29/20 16:06 Basophils % (Manual) 0 % (0.0-1.8) 07/29/20 16:06 Metamyelocytes % 0 % 07/29/20 16:06 Myelocytes % 0 % 07/29/20 16:06 Promyelocytes % 0 % 07/29/20 16:06 Blast Cells % 0 % 07/29/20 16:06 Nucleated RBC % Not Reportable 07/29/20 16:06 Seg Neutrophils # 10.2 K/mm3 (1.8-7.7) H 08/01/20 06:32 Seg Neutrophils # Man 18.6 K/mm3 (1.8-7.7) H 07/29/20 16:06 Band Neutrophils # 0.0 K/mm3 07/29/20 16:06 Lymphocytes # (Manual) 1.3 K/mm3 (1.2-5.4) 07/29/20 16:06 Abs React Lymphs (Man) 0.0 K/mm3 07/29/20 16:06 Monocytes # (Manual) 0.8 K/mm3 (0.0-0.8) 07/29/20 16:06 Eosinophils # (Manual) 0.2 K/mm3 (0.0-0.4) 07/29/20 16:06 Basophils # (Manual) 0.0 K/mm3 (0.0-0.1) 07/29/20 16:06 Metamyelocytes # 0.0 K/mm3 07/29/20 16:06 Myelocytes # 0.0 K/mm3 07/29/20 16:06 Promyelocytes # 0.0 K/mm3 07/29/20 16:06 Blast Cells # 0.0 K/mm3 07/29/20 16:06 WBC Morphology Not Reportable 07/29/20 16:06 Hypersegmented Neuts Not Reportable 07/29/20 16:06 Hyposegmented Neuts Not Reportable 07/29/20 16:06 Hypogranular Neuts Not Reportable 07/29/20 16:06 Smudge Cells Not Reportable 07/29/20 16:06 Toxic Granulation Not Reportable 07/29/20 16:06 Toxic Vacuolation Not Reportable 07/29/20 16:06 Dohle Bodies Not Reportable 07/29/20 16:06 Pelger-Huet Anomaly Not Reportable 07/29/20 16:06 Julio Cesar Rods Not Reportable 07/29/20 16:06 Platelet Estimate Not Reportable 07/29/20 16:06 Clumped Platelets Not Reportable 07/29/20 16:06 Plt Clumps, EDTA Not Reportable 07/29/20 16:06 Large Platelets Not Reportable 07/29/20 16:06 Giant Platelets Not Reportable 07/29/20 16:06 Platelet Satelliting Not Reportable 07/29/20 16:06 Plt Morphology Comment Not Reportable 07/29/20 16:06 RBC Morphology Not Reportable 07/29/20 16:06 Dimorphic RBCs Not Reportable 07/29/20 16:06 Polychromasia Not Reportable 07/29/20 16:06 Hypochromasia 1+ 07/29/20 16:06 Poikilocytosis Not Reportable 07/29/20 16:06 Anisocytosis 1+ 07/29/20 16:06 Microcytosis Few 07/29/20 16:06 Macrocytosis Not Reportable 07/29/20 16:06 Spherocytes Not Reportable 07/29/20 16:06 Pappenheimer Bodies Not Reportable 07/29/20 16:06 Sickle Cells Not Reportable 07/29/20 16:06 Target Cells Not Reportable 07/29/20 16:06 Tear Drop Cells Not Reportable 07/29/20 16:06 Ovalocytes Not Reportable 07/29/20 16:06 Helmet Cells Not Reportable 07/29/20 16:06 [place] Bodies Not Reportable 07/29/20 16:06 [place] Rings Not Reportable 07/29/20 16:06 Olive Cells Not Reportable 07/29/20 16:06 Bite Cells Not Reportable 07/29/20 16:06 Crenated Cell Not Reportable 07/29/20 16:06 Elliptocytes Not Reportable 07/29/20 16:06 Acanthocytes (Spur) Not Reportable 07/29/20 16:06 Rouleaux Not Reportable 07/29/20 16:06 Hemoglobin C Crystals Not Reportable 07/29/20 16:06 Schistocytes Not Reportable 07/29/20 16:06 Malaria parasites Not Reportable 07/29/20 16:06 David Bodies Not Reportable 07/29/20 16:06 Hem Pathologist Commnt No 07/29/20 16:06 PT 22.3 Sec. (12.2-14.9) H 07/31/20 05:36 INR 1.91 (0.87-1.13) H 07/31/20 05:36 Sodium 137 mmol/L (137-145) 08/01/20 06:32 Potassium 5.1 mmol/L (3.6-5.0) H 08/01/20 06:32 Chloride 93.8 mmol/L (98-107) L 08/01/20 06:32 Carbon Dioxide 23 mmol/L (22-30) 08/01/20 06:32 Anion Gap 25 mmol/L 08/01/20 06:32 BUN 62 mg/dL (9-20) H 08/01/20 06:32 Creatinine 11.4 mg/dL (0.8-1.3) H 08/01/20 06:32 Estimated GFR 6 ml/min 08/01/20 06:32 BUN/Creatinine Ratio 5 % 08/01/20 06:32 Glucose 217 mg/dL (75-100) H 08/01/20 06:32 POC Glucose 219 (70-105) H 08/01/20 07:53 Calcium 7.5 mg/dL (8.4-10.2) L 08/01/20 06:32 Urine Color Yellow (Yellow) 07/29/20 Unknown Urine Turbidity Slightly-cloudy (Clear) 07/29/20 Unknown Urine pH 6.0 (5.0-7.0) 07/29/20 Unknown Ur Specific [place] 1.024 (1.003-1.030) 07/29/20 Unknown Urine Protein >500 mg/dL (Negative) 07/29/20 Unknown Urine Glucose (UA) >=500 mg/dL (Negative) 07/29/20 Unknown Urine Ketones Tr mg/dL (Negative) 07/29/20 Unknown Urine Blood Sm (Negative) 07/29/20 Unknown Urine Nitrite Neg (Negative) 07/29/20 Unknown Urine Bilirubin Neg (Negative) 07/29/20 Unknown Urine Urobilinogen < 2.0 mg/dL (<2.0) 07/29/20 Unknown Ur Leukocyte Esterase Tr (Negative) 07/29/20 Unknown Urine WBC (Auto) 34.0 /HPF (0.0-6.0) H 07/29/20 Unknown Urine RBC (Auto) 9.0 /HPF (0.0-6.0) 07/29/20 Unknown U Epithel Cells (Auto) 1.0 /HPF (0-13.0) 07/29/20 Unknown Urine Bacteria (Auto) 1+ /HPF (Negative) 07/29/20 Unknown Urine Yeast (Budding) 1+ /HPF 07/29/20 Unknown Salicylates < 0.3 mg/dL (2.8-20.0) L 07/29/20 16:06 Urine Opiates Screen Presumptive negative 07/29/20 Unknown Urine Methadone Screen Presumptive negative 07/29/20 Unknown Acetaminophen 5.0 ug/mL (10.0-30.0) L 07/29/20 16:06 Ur Barbiturates Screen Presumptive negative 07/29/20 Unknown Ur Phencyclidine Scrn Presumptive negative 07/29/20 Unknown Ur Amphetamines Screen Presumptive negative 07/29/20 Unknown U Benzodiazepines Scrn Presumptive negative 07/29/20 Unknown Urine Cocaine Screen Presumptive negative 07/29/20 Unknown U Marijuana (THC) Screen Presumptive negative 07/29/20 Unknown Drugs of Abuse Note Disclamer 07/29/20 Unknown Plasma/Serum Alcohol < 0.01 % (0-0.07) 07/29/20 16:06 Hepatitis A IgM Ab Non-reactive (NonReactive) 07/30/20 05:31 Hep Bs Antigen Non-reactive (Negative) 07/30/20 05:31 Hep B Core IgM Ab Non-reactive (NonReactive) 07/30/20 05:31 Hepatitis C Antibody Non-reactive (NonReactive) 07/30/20 05:31 Blood Type O POSITIVE 07/31/20 20:30 Antibody Screen Negative 07/31/20 20:30 Crossmatch See Detail 07/31/20 20:30 Microbiology: Microbiology 07/30/20 06:03 Peripheral/Venous Blood Culture - Preliminary Staphylococcus Aureus 07/31/20 15:42 Peripheral/Venous Blood Culture - Preliminary Culture in Progress 07/31/20 15:42 Peripheral/Venous Blood Culture - Preliminary Culture in Progress 07/30/20 05:31 Peripheral/Venous Blood Culture - Preliminary Staphylococcus Aureus 07/29/20 Unknown Urine,Clean Catch Urine Culture - Preliminary Escherichia Coli Perez/IV: Voiding Method Urinal IV Catheter Type [Left INT / Saline Lock External Jugular] IV Catheter Type [Left Chest] VAS Cath Active Medications - Current Medications Current Medications: Generic Name Dose Route Start Last Admin Trade Name Freq PRN Reason Stop Dose Admin Acetaminophen 650 mg 07/30/20 00:41 07/30/20 05:36 Tylenol PO 650 mg Q4H PRN Administration Pain MILD(1-3)/Fever >100.5/LANZA Albuterol 0.63 mg 07/30/20 07:01 Proventil IH Q4HRT PRN Shortness Of Breath Amlodipine Besylate 10 mg 07/30/20 10:00 07/31/20 11:23 Amlodipine PO 10 mg DAILY KESHIA Administration Apixaban 5 mg 07/30/20 10:00 07/31/20 22:40 Eliquis PO 5 mg BID KESHIA Administration Protocol Carvedilol 25 mg 07/30/20 08:00 08/01/20 08:53 Coreg PO 25 mg BID@0800,1700 KESHIA Administration Clonidine HCl 0.1 mg 07/30/20 10:00 07/31/20 22:40 Catapres PO 0.1 mg BID KESHIA Administration Dextrose 0 ml 07/30/20 00:41 D50w (25gm) Syringe IV Q30MIN PRN Hypoglycemia Protocol Hydralazine HCl 100 mg 07/30/20 14:00 08/01/20 05:34 Apresoline PO 100 mg Q8HR KESHIA Administration Ceftriaxone Sodium 1 gm in 50 mls @ 100 mls/hr 07/30/20 10:00 07/31/20 09:52 Rocephin/Ns 1 Gm/50 Ml IV 100 mls/hr Q24HR KESHIA Administration Protocol Piperacillin Sod/Tazobactam 50 mls @ 100 mls/hr 08/01/20 22:00 Sod 0.75 gm/ Sodium Chloride IV MoWeFr@2200 KESHIA Protocol Piperacillin Sod/Tazobactam Sod 2.25 gm in 50 mls @ 100 mls/hr 07/31/20 22:00 08/01/20 05:34 Zosyn/Ns 2.25 Gm/50ml IV 100 mls/hr Q8HR KESHIA Administration Sodium Chloride 100 mls @ 999 mls/hr 08/01/20 09:00 Nacl 0.9% IV BRENDAN PRN Hypotension Insulin Human Lispro 0 unit 07/30/20 07:30 07/31/20 22:41 Humalog SUB-Q Not Given ACHS [facility] Protocol Magnesium Hydroxide 30 ml 07/30/20 00:41 Milk Of Magnesia PO Q4H PRN Constipation Ondansetron HCl 4 mg 07/30/20 00:41 07/30/20 22:01 Zofran IV 4 mg Q8H PRN Administration Nausea And Vomiting Pantoprazole Sodium 40 mg 07/30/20 22:00 07/31/20 22:40 Protonix PO 40 mg QHS KESHIA Administration Sertraline HCl 50 mg 07/30/20 12:00 07/31/20 09:51 Zoloft PO 50 mg DAILY KESHIA Administration Sodium Chloride 10 ml 07/30/20 10:00 07/31/20 22:40 Sodium Chloride Flush Syringe 10 Ml IV 10 ml BID KESHIA Administration Sodium Chloride 10 ml 07/30/20 00:41 Sodium Chloride Flush Syringe 10 Ml IV PRN PRN LINE FLUSH Nutrition/Malnutrition Assess - Dietary Evaluation Nutrition/Malnutrition Findings: Nutrition Notes Start: 07/30/20 10:57 Freq: Status: Active Protocol: Document 07/30/20 10:58 YARELI (Rec: 07/30/20 11:15 YARELI [id number]) Co-Sign 07/30/20 10:58 LP Nutrition Notes Need for Assessment generated from: MD Order,Education Initial or Follow up Assessment Current Diagnosis CKD (stage V CKD),Diabetes, Hypertension Other Pertinent Diagnosis ESRD - HD, Abd pain, hx of erosive esophagitis, gastroparesis Current Diet Cardiac/Consistent CHO/Renal Labs/Tests K 6.5 Pertinent Medications Reviewed Height 6 ft 3 in Weight 87.6 kg Usual Body Weight 93.6 kg [place] Body Weight (kg) 89.09 BMI 24.1 Intake Prior to Admission Fair Weight change and time frame 6% weight loss in one month Weight Status Appropriate Subjective/Other Information MD consult for diet education. Pt was given some renal and DM education but started vomiting before complete and reports still having questions . Pt reports wt loss to decreased appetitie. Pt reports having an appetite today but unable to consume food. Burn Absent Trauma Absent GI Symptoms Nausea,Vomiting Current % PO Negligible Minimum of two criteria No Interpretation of Weight Loss (severe) >2% in 1 week #2 Nutrition Diagnosis Food and nutrition-related knowledge deficit Etiology Not understanding prior nutrition education As Evidenced by Signs and Symptoms Pt had questions about what foods to eat #1 Nutrition Diagnosis Inadequate oral intake Etiology Abdominal pain, missed HD As Evidenced by Signs and Symptoms N/V Is patient on ventilator? No Is Patient Ambulatory and/or Out of Bed Yes REE-([facility]-ambulatory/OOB) [ [id number] [id number]] Calculation Used for Recommendations [facility] Additional Notes Pro: >105g (>1.2g/kg) Fluid: 1ml/kcal or per MD Nutrition Intervention Change Diet Order: Renal/consistent CHO Teaching Recipient Patient Learning Readiness Fair Teaching Methods Discussion Response to Teaching Reinforcement needed Education Handouts Provided ESRD Diet Tips ESRD on HD Food List Barriers to Learning Physical RD phone number provided Yes Patient aware of follow up options Yes Goal #1 Understand ESRD and DM diet edu Goal #2 Meet at least 80% of protein and energy needs via PO intakes Anticipated Discharge Needs: Renal, Consistent CHO Follow-Up By: 08/02/20 Additional Comments FU for intakes and diet education
[2020-08-01] MEDS: cloNIDine 0.1 MG TAB PO SCH ×2 (09:16→21:31)
[2020-08-01] MEDS: SERTRALINE 50 MG TAB PO SCH (09:17)
[2020-08-01] MEDS: amLODIPine 10 MG TAB PO SCH (09:17)
[2020-08-01] MEDS: APIXABAN 5 MG TAB PO SCH ×2 (09:17→21:31)
[2020-08-01] MEDS: INSULIN LISPRO 100 UNIT/ML VIAL 3 mL SUB-Q SCH ×4 (09:17→21:31)
[2020-08-01] MEDS: ACETAMINOPHEN 325 MG TAB PO PRN (13:44)
--- NOTE | 2020-08-01 14:12 | Consultation ---
History of Present Illness - Reason for Consult Consult date: 08/01/20 MRSA bacteremia/ESBL Ecoli UTI Requesting physician: JIMBO DOWLING - History of Present Illness 34 years old male with history of end-stage renal disease on hemodialysis via left IJ PermCath, noncompliance, hypertension, diabetes mellitus, gastric ulcer, recurrent ulcerative esophagitis, noncompliance, known to our service, recent ESBL Klebsiella bacteremia secondary to PermCath infection which was exchanged same site on 05/19/2020, bacteremia resolved, patient sent home on oral cipro floxacin, readmitted on 06/20/2020 recurrent Klebsiella ESBL bacteremia. Transthoracic echo no obvious vegetations. Had right IJ PermCath removal on 06/24/2020 with resolution of bacteremia. He was set up with a midline and IV Meropenem at home ending 07/08/2020 (14 days from HD cath removal and bacteremia clearance). However, patient states his line fell out 6 days post discharge. He never contacted our office, states he came to the ER here (no record of this in the EMR) and went home. Then admitted on 07/06/2022 2 hematemesis. He had also missed his dialysis treatment. Denies any fever or chills this admission. Due to concern for inadequate treatment of his previous bacteremia, infectious diseases was consulted. Antibiotics completed with ciprofloxacin p.o. for 7 days. Unfortunately patient readmitted on 07/29/2020 due to nausea and vomiting for several days. Patient also reports crampy abdominal pain. Patient reported he has been depressed lately and has missed hemodialysis twice. Denies any suicidal or homicidal ideation.. On arrival, temp 98.5-->101.3, Hr 101, R 20, O2 96%, BP 190/92. WBC 20.9. Hg 7. Plat 380. K6.5. Creat 20.9. UA wbc 34, trace LE. Blood culture 07/30/2020 MRSA 3 of 4 bottles. Urine culture 07/29/2020 ESBL E coli. Review of Systems: positive in bold print General: fever, chills, malaise Cutaneous: rash, pruritus Head: headaches or injury Eyes: changes in vision, eye pain, double vision Ears: ear pain, ear discharge, ringing or hearing loss Nose: nose bleeding, stuffiness Mouth & throat: bleeding gums, horseness, no dental problems, or swollen glands Neck: no pain, node enlargement/lumps, tyroid enlargement or tenderness Respiratory: SOB, cough, ESTRADA, wheezing, sputum, hemoptysis, pleuritic chest pain Cardiovascular: chest pain, leg edema, cyanosis, ESTRADA, orthopnea Musculoskeletal: edema, deformities, pain Gastrointestinal: nausea, vomiting, hematemesis, diarrhea, constipation, melena, bright red blood in stools, fecal incontinence, jaundice Genitourinary/Reproductive: frequent urination, dysuria, hematuria, incontinence Neurogical: seizures, headaches, weakness, paresthesias, loss of speech or vision; memory loss, vertigo, tremors, numbness Psychiatric: Depressive mood stable mood; excessive anxiety, sadness or moodiness Past History Past Medical History: diabetes, dialysis, ESRD, hypertension, other (Ulcerative esophagitis,Gastroparesis,NSTEMI,) Past Surgical History: appendectomy, cholecystectomy, Other (Right great toe amputation) Social history: no significant social history Family history: no significant family history Medications and Allergies Allergies Allergy/AdvReac Type Severity Reaction Status Date / Time No Known Allergies Allergy Verified 07/20/20 15:05 Home Medications Medication Instructions Recorded Confirmed Last Taken Type Albuterol Sulfate [Albuterol 0.63% 0.63 mg IH Q4HR PRN #50 04/17/20 07/30/20 05/30/20 Rx NEBS] Lispro Insulin [HumaLOG] 5 unit SQ AC #1 vial 04/17/20 07/30/20 06/15/20 Rx Apixaban [Eliquis] 1 tab PO BID #60 tablet 07/17/20 07/30/20 07/22/20 08:00 Rx Insulin Glargine [Lantus VIAL] 10 units SUB-Q QHS units 07/17/20 07/30/20 07/21/20 20:00 Rx Metoclopramide [Reglan TAB] 5 mg PO ACHS PRN #120 tablet 07/17/20 07/30/20 07/22/20 08:00 Rx Pantoprazole [Protonix TAB] 40 mg PO DAILY #60 tablet 07/17/20 07/30/20 07/22/20 08:00 Rx amLODIPine 10 mg PO DAILY #30 tablet 07/17/20 07/30/20 07/22/20 08:00 Rx carvediloL [Coreg] 25 mg PO BID 30 Days #60 tablet 07/17/20 07/30/20 07/22/20 08:00 Rx cloNIDine [Catapres] 0.1 mg PO BID #60 tablet 07/17/20 07/30/20 07/22/20 08:00 Rx hydrALAZINE [Apresoline TAB] 100 mg PO Q8HR #90 tab 07/17/20 07/30/20 07/22/20 08:00 Rx Active Meds: Active Medications Acetaminophen (Tylenol) 650 mg PO Q4H PRN PRN Reason: Pain MILD(1-3)/Fever >100.5/LANZA Last Admin: 08/01/20 13:44 Dose: 650 mg Documented by: Albuterol (Proventil) 0.63 mg IH Q4HRT PRN PRN Reason: Shortness Of Breath Amlodipine Besylate (Amlodipine) 10 mg PO DAILY [facility] Last Admin: 08/01/20 09:17 Dose: 10 mg Documented by: Apixaban (Eliquis) 5 mg PO BID [facility]; Protocol Last Admin: 08/01/20 09:17 Dose: 5 mg Documented by: Carvedilol (Coreg) 25 mg PO BID@0800,1700 [facility] Last Admin: 08/01/20 08:53 Dose: 25 mg Documented by: Clonidine HCl (Catapres) 0.1 mg PO BID [facility] Last Admin: 08/01/20 09:16 Dose: 0.1 mg Documented by: Dextrose (D50w (25gm) Syringe) 0 ml IV Q30MIN PRN; Protocol PRN Reason: Hypoglycemia Hydralazine HCl (Apresoline) 100 mg PO Q8HR [facility] Last Admin: 08/01/20 13:42 Dose: 100 mg Documented by: Piperacillin Sod/Tazobactam (Sod 0.75 gm/ Sodium Chloride) 50 mls @ 100 mls/hr IV MoWeFr@2200 [facility]; Protocol Piperacillin Sod/Tazobactam Sod (Zosyn/Ns 2.25 Gm/50ml) 2.25 gm in 50 mls @ 100 mls/hr IV Q8HR [facility] Last Admin: 08/01/20 05:34 Dose: 100 mls/hr Documented by: Sodium Chloride (Nacl 0.9%) 100 mls @ 999 mls/hr IV BRENDAN PRN PRN Reason: Hypotension Insulin Human Lispro (Humalog) 0 unit SUB-Q ACHS [facility]; Protocol Last Admin: 08/01/20 13:41 Dose: 2 unit Documented by: Magnesium Hydroxide (Milk Of Magnesia) 30 ml PO Q4H PRN PRN Reason: Constipation Ondansetron HCl (Zofran) 4 mg IV Q8H PRN PRN Reason: Nausea And Vomiting Last Admin: 07/30/20 22:01 Dose: 4 mg Documented by: Pantoprazole Sodium (Protonix) 40 mg PO QHS [facility] Last Admin: 07/31/20 22:40 Dose: 40 mg Documented by: Sertraline HCl (Zoloft) 50 mg PO DAILY [facility] Last Admin: 08/01/20 09:17 Dose: 50 mg Documented by: Sodium Chloride (Sodium Chloride Flush Syringe 10 Ml) 10 ml IV BID [facility] Last Admin: 08/01/20 09:17 Dose: 10 ml Documented by: Sodium Chloride (Sodium Chloride Flush Syringe 10 Ml) 10 ml IV PRN PRN PRN Reason: LINE FLUSH Physical Examination - Physical Exam Narrative exam: General appearance: Alert in NAD in no acute distress Eyes: anicteric sclerae, moist conjunctivae; no lid-lag; PERRLA HENT: Atraumatic; oropharynx clear with moist mucous membranes and no oral thrush; normal hard and soft palate. Lungs: CTA CV: RRR no murmur Abdomen: Soft, non-tender; no masses or hepatosplenomegaly Extremities: no edema, no cyanosis Skin: No rash. Psych: Flat affect Neuro: alert and oriented x 3. Moving all extermities Left upper chest HD cath no purulence seen - Constitutional Vitals: Vital Signs Temp Pulse Resp BP Pulse Ox 98.7 F 80 20 135/76 90 08/01/20 13:30 08/01/20 13:30 08/01/20 13:30 08/01/20 13:30 08/01/20 07:39 Temperature -Last 24 Hours Temperature 98.7 F Temperature 98.7 F Temperature 98.7 F Temperature 98.8 F Temperature 98.7 F Temperature 98.7 F Temperature 99.0 F Temperature 99.2 F Temperature 99.7 F Temperature 98.1 F Temperature 98.9 F Results - Labs CBC & Chem 7: 08/01/20 06:32 08/01/20 06:32 Labs: Abnormal lab results 07/31/20 07/31/20 07/31/20 Range/Units 17:03 20:30 22:06 WBC (4.5-11.0) K/mm3 RBC (3.65-5.03) M/mm3 Hgb (11.8-15.2) gm/dl Hct (35.5-45.6) % MCV (84-94) fl MCH (28-32) pg MCHC (32-34) % RDW (13.2-15.2) % Lymph % (Auto) (13.4-35.0) % Orange % (Auto) (0.0-7.3) % Lymph # (1.2-5.4) K/mm3 Orange # (0.0-0.8) K/mm3 Seg Neutrophils % (40.0-70.0) % Seg Neutrophils # (1.8-7.7) K/mm3 Potassium (3.6-5.0) mmol/L Chloride (98-107) mmol/L BUN (9-20) mg/dL Creatinine (0.8-1.3) mg/dL Glucose (75-100) mg/dL POC Glucose 204 H 146 H (70-105) Calcium (8.4-10.2) mg/dL Crossmatch See Detail 08/01/20 08/01/20 08/01/20 Range/Units 06:32 06:32 07:53 WBC 12.3 H (4.5-11.0) K/mm3 RBC 2.92 L (3.65-5.03) M/mm3 Hgb 7.0 L (11.8-15.2) gm/dl Hct 22.6 L (35.5-45.6) % MCV 77 L (84-94) fl MCH 24 L (28-32) pg MCHC 31 L (32-34) % RDW 21.2 H (13.2-15.2) % Lymph % (Auto) 6.6 L (13.4-35.0) % Orange % (Auto) 9.6 H (0.0-7.3) % Lymph # 0.8 L (1.2-5.4) K/mm3 Orange # 1.2 H (0.0-0.8) K/mm3 Seg Neutrophils % 82.8 H (40.0-70.0) % Seg Neutrophils # 10.2 H (1.8-7.7) K/mm3 Potassium 5.1 H (3.6-5.0) mmol/L Chloride 93.8 L (98-107) mmol/L BUN 62 H (9-20) mg/dL Creatinine 11.4 H (0.8-1.3) mg/dL Glucose 217 H (75-100) mg/dL POC Glucose 219 H (70-105) Calcium 7.5 L (8.4-10.2) mg/dL Crossmatch 08/01/20 Range/Units 11:52 WBC (4.5-11.0) K/mm3 RBC (3.65-5.03) M/mm3 Hgb (11.8-15.2) gm/dl Hct (35.5-45.6) % MCV (84-94) fl MCH (28-32) pg MCHC (32-34) % RDW (13.2-15.2) % Lymph % (Auto) (13.4-35.0) % Orange % (Auto) (0.0-7.3) % Lymph # (1.2-5.4) K/mm3 Orange # (0.0-0.8) K/mm3 Seg Neutrophils % (40.0-70.0) % Seg Neutrophils # (1.8-7.7) K/mm3 Potassium (3.6-5.0) mmol/L Chloride (98-107) mmol/L BUN (9-20) mg/dL Creatinine (0.8-1.3) mg/dL Glucose (75-100) mg/dL POC Glucose 193 H (70-105) Calcium (8.4-10.2) mg/dL Crossmatch Assessment and Plan Cultures: Blood culture 07/30/2020 MRSA 3 of 4 bottles. Urine culture 07/29/2020 ESBL E coli. Assessment: 34 years old male with history of end-stage renal disease on hemodialysis via left IJ PermCath, noncompliance, hypertension, diabetes bobby litus, gastric ulcer, recurrent ulcerative esophagitis, noncompliance, known to our service, recent ESBL Klebsiella bacteremia secondary to PermCath infectio, readmitted on 07/29/2020 due to nausea and vomiting for several days, patient missed dialysis twice: #Sepsis: present on admission with fever, leukocytosis, tachycardia, leukocytosis; source MRSA bacteremia/ESBL E coli UTI. #MRSA bacteremia: likely secondary to hemodialysis access infection. #ESBL E. coli UTI: pt makes urine. Urine culture grew E. coli UTI. #History of Recent ESBL Klebsiella bacteremia: Had right IJ PermCath removal on 06/24/2020 with resolution of bacteremia. Got about 6 days of IV Meropenem via midline after that but his line fell out 6 days post discharge. He never contacted our office, states he came to the ER here (no record of this in the EMR) and went home. He has been doing well without abx for more than 1 week. Given his issues with non compliance and no evidence of sepsis, I would not restart IV abx. More importantly, he had source control during previous admission. #Diabetes mellitus: Uncontrolled. #Anemia: Chronic. #Hyperkalemia: Patient missed hemodialysis. #Hypertension: Uncontrolled. #ESRD on HD via left chest hemodialysis access #Noncompliance Recs: -Psych consult given depressive mood and multiple readmissions/non compliance -Consult vascular. Requires hemodialysis catheter removal -Repeat blood cultures x 2 -Repeat TTE -Start vancomycin with PK consult -Stop Zosyn -Start ertapenem 500 mg IV qday -Obtain transthoracic echo -Education about non compliance Guarded prognosis Will follow. Chloe Fitch MD Infectious Diseases Air Quality Manager [facility] ([facility]) M [phone] O [phone]
--- NOTE | 2020-08-01 14:23 | Progress Note ---
Assessment and Plan Assessment: ESRD on Hemodialysis: Hyperkalemia: Abdominal Pain: HTN: Possible UTI: Depression: ACD due to ESRD: Plan: -Hemodialysis today for UF and clearance -Fluid restriction of 1 liter per day -Anemia-Start Epogen 20,000 units with HD -Renally dose medications -Strict I/Os monitoring -Obtain daily weights -Assess dialysis needs daily Subjective Date of service: 08/01/20 Principal diagnosis: Hyperkalemia, end-stage renal disease, vomiting Interval history: Patient seen sitting up in bed. States had HD this morning and it went well. Objective - Vital Signs Vital signs: Vital Signs - 12hr 08/01/20 08/01/20 08/01/20 03:00 04:11 07:39 Temperature 99.2 F 99.0 F Pulse Rate 85 76 78 Respiratory 20 20 Rate Blood Pressure 101/53 117/58 O2 Sat by Pulse 92 90 Oximetry 08/01/20 08/01/20 08/01/20 10:00 10:12 10:15 Temperature 98.7 F Pulse Rate 78 77 77 Respiratory 20 Rate Blood Pressure 148/74 133/67 137/72 O2 Sat by Pulse Oximetry 08/01/20 08/01/20 08/01/20 10:30 10:45 11:00 Temperature Pulse Rate 77 76 77 Respiratory Rate Blood Pressure 135/74 127/69 133/68 O2 Sat by Pulse Oximetry 08/01/20 08/01/20 08/01/20 11:15 11:30 11:45 Temperature Pulse Rate 80 80 77 Respiratory Rate Blood Pressure 133/69 141/74 138/73 O2 Sat by Pulse Oximetry 08/01/20 08/01/20 08/01/20 11:58 12:00 12:09 Temperature 98.7 F 98.8 F Pulse Rate 80 80 78 Respiratory 20 18 Rate Blood Pressure 137/73 137/73 143/79 O2 Sat by Pulse Oximetry 08/01/20 08/01/20 08/01/20 12:15 12:24 12:30 Temperature 98.7 F Pulse Rate 78 78 79 Respiratory 18 Rate Blood Pressure 143/79 145/81 149/81 O2 Sat by Pulse Oximetry 08/01/20 08/01/20 08/01/20 12:45 13:00 13:14 Temperature Pulse Rate 78 76 76 Respiratory Rate Blood Pressure 145/81 142/82 132/72 O2 Sat by Pulse Oximetry 08/01/20 08/01/20 13:25 13:30 Temperature 98.7 F 98.7 F Pulse Rate 80 80 Respiratory 18 20 Rate Blood Pressure 135/76 135/76 O2 Sat by Pulse Oximetry - General Appearance General appearance: well-developed, appears stated age EENT: ATNC, PERRL, hearing intact, vision intact Neck: no JVD, supple Respiratory: Present: Decreased Breath Sounds Cardiology: S1S2 Gastrointestinal: normoactive bowel sounds Integumentary: warm and dry Neurologic: alert and oriented x3 Musculoskeletal: other (No edema) - Lab 08/01/20 06:32 08/01/20 06:32 Most recent lab results Calcium 7.5 mg/dL (8.4-10.2) L 08/01/20 06:32 Medications & Allergies - Medications Allergies/Adverse Reactions: Allergies No Known Allergies Allergy (Verified 07/20/20 15:05) Home Medications: Home Medications Medication Instructions Recorded Confirmed Last Taken Type Albuterol Sulfate [Albuterol 0.63% 0.63 mg IH Q4HR PRN #50 04/17/20 07/30/20 05/30/20 Rx NEBS] Lispro Insulin [HumaLOG] 5 unit SQ AC #1 vial 04/17/20 07/30/20 06/15/20 Rx Apixaban [Eliquis] 1 tab PO BID #60 tablet 07/17/20 07/30/20 07/22/20 08:00 Rx Insulin Glargine [Lantus VIAL] 10 units SUB-Q QHS units 07/17/20 07/30/20 07/21/20 20:00 Rx Metoclopramide [Reglan TAB] 5 mg PO ACHS PRN #120 tablet 07/17/20 07/30/20 07/22/20 08:00 Rx Pantoprazole [Protonix TAB] 40 mg PO DAILY #60 tablet 07/17/20 07/30/20 07/22/20 08:00 Rx amLODIPine 10 mg PO DAILY #30 tablet 07/17/20 07/30/20 07/22/20 08:00 Rx carvediloL [Coreg] 25 mg PO BID 30 Days #60 tablet 07/17/20 07/30/20 07/22/20 08:00 Rx cloNIDine [Catapres] 0.1 mg PO BID #60 tablet 07/17/20 07/30/20 07/22/20 08:00 Rx hydrALAZINE [Apresoline TAB] 100 mg PO Q8HR #90 tab 07/17/20 07/30/20 07/22/20 08:00 Rx Active Medications: Generic Name Dose Route Start Last Admin Trade Name Freq PRN Reason Stop Dose Admin Acetaminophen 650 mg 07/30/20 00:41 08/01/20 13:44 Tylenol PO 650 mg Q4H PRN Administration Pain MILD(1-3)/Fever >100.5/LANZA Albuterol 0.63 mg 07/30/20 07:01 Proventil IH Q4HRT PRN Shortness Of Breath Amlodipine Besylate 10 mg 07/30/20 10:00 08/01/20 09:17 Amlodipine PO 10 mg DAILY [facility] Administration Apixaban 5 mg 07/30/20 10:00 08/01/20 09:17 Eliquis PO 5 mg BID [facility] Administration Protocol Carvedilol 25 mg 07/30/20 08:00 08/01/20 08:53 Coreg PO 25 mg BID@0800,1700 [facility] Administration Clonidine HCl 0.1 mg 07/30/20 10:00 08/01/20 09:16 Catapres PO 0.1 mg BID [facility] Administration Dextrose 0 ml 07/30/20 00:41 D50w (25gm) Syringe IV Q30MIN PRN Hypoglycemia Protocol Hydralazine HCl 100 mg 07/30/20 14:00 08/01/20 13:42 Apresoline PO 100 mg Q8HR [facility] Administration Piperacillin Sod/Tazobactam 50 mls @ 100 mls/hr 08/01/20 22:00 Sod 0.75 gm/ Sodium Chloride IV MoWeFr@2200 [facility] Protocol Piperacillin Sod/Tazobactam Sod 2.25 gm in 50 mls @ 100 mls/hr 07/31/20 22:00 08/01/20 05:34 Zosyn/Ns 2.25 Gm/50ml IV 100 mls/hr Q8HR [facility] Administration Sodium Chloride 100 mls @ 999 mls/hr 08/01/20 09:00 Nacl 0.9% IV BRENDAN PRN Hypotension Insulin Human Lispro 0 unit 07/30/20 07:30 09/21/20 13:41 Humalog SUB-Q 2 unit ACHS [facility] Administration Protocol Magnesium Hydroxide 30 ml 07/30/20 00:41 Milk Of Magnesia PO Q4H PRN Constipation Ondansetron HCl 4 mg 07/30/20 00:41 07/30/20 22:01 Zofran IV 4 mg Q8H PRN Administration Nausea And Vomiting Pantoprazole Sodium 40 mg 07/30/20 22:00 07/31/20 22:40 Protonix PO 40 mg QHS [facility] Administration Sertraline HCl 50 mg 07/30/20 12:00 08/01/20 09:17 Zoloft PO 50 mg DAILY [facility] Administration Sodium Chloride 10 ml 07/30/20 10:00 08/01/20 09:17 Sodium Chloride Flush Syringe 10 Ml IV 10 ml BID [facility] Administration Sodium Chloride 10 ml 07/30/20 00:41 Sodium Chloride Flush Syringe 10 Ml IV PRN PRN LINE FLUSH
[2020-08-01] MEDS ORDERED: EPOETIN ALFA 20,000 UNIT/1 ML INJ IV PRN (14:40)
[2020-08-01] MEDS ORDERED: VANCOMYCIN PHARMACY TO DOSE IV SCH (15:00)
[2020-08-01] MEDS: cefTRIAXone/NS 1 GM/50 ML 1 GM/50 ML BAG IV SCH (16:50)
[2020-08-01] MEDS: ERTAPENEM 0.5 GM in SODIUM CHLORIDE 0.9% 50 ML IV SCH (19:11)
[2020-08-01] MEDS: PANTOPRAZOLE 40 MG TAB PO SCH (21:31)
[2020-08-01] MEDS ORDERED: SODIUM CHLORIDE 0.9% IV SCH (22:00)
[2020-08-01] MEDS ORDERED: TAZOBACTAM IV SCH (22:00)
[2020-08-01] MEDS ORDERED: PIPERACILLIN IV SCH (22:00)
[2020-08-02] MEDS: hydrALAZINE 100 MG TAB PO SCH ×3 (06:27→22:42)
--- NOTE | 2020-08-02 10:15 | Progress Note ---
Assessment and Plan Cultures: Blood culture 07/30/2020 MRSA 3 of 4 bottles. Urine culture 07/29/2020 ESBL E coli. Blood culture 07/31/2020 Staph aureus 3 of 4 bottles Assessment: 34 years old male with history of end-stage renal disease on hemodialysis via left IJ PermCath, noncompliance, hypertension, diabetes mellitus, gastric ulcer, recurrent ulcerative esophagitis, noncompliance, known to our service, recent ESBL Klebsiella bacteremia secondary to PermCath infectio, readmitted on 07/29/2020 due to nausea and vomiting for several days, patient missed dialysis twice: #Sepsis: present on admission with fever, leukocytosis, tachycardia, leukocytosis; source MRSA bacteremia/ESBL E coli UTI. #MRSA bacteremia: likely secondary to hemodialysis access infection. Persistent bacteremia. Patient missed 3 hemodialysis sections, dressing was no change for almost 10 days. #ESBL E. coli UTI: pt makes urine. Urine culture grew E. coli UTI. #History of Recent ESBL Klebsiella bacteremia: Had right IJ PermCath removal on 06/24/2020 with resolution of bacteremia. Got about 6 days of IV Meropenem via midline after that but his line fell out 6 days post discharge. He never contacted our office, states he came to the ER here (no record of this in the EMR) and went home. He has been doing well without abx for more than 1 week. Given his issues with non compliance and no evidence of sepsis, I would not restart IV abx. More importantly, he had source control during previous admission. #Diabetes mellitus: Uncontrolled. #Anemia: Chronic. #Hyperkalemia: Patient missed hemodialysis. #Hypertension: Uncontrolled. Better. #ESRD on HD via left chest hemodialysis access #Noncompliance Recs: -Psych consult given depressive mood and multiple readmissions/non compliance -Repeat blood cultures today -Consult vascular. Requires hemodialysis catheter removal -Repeat TTE -pending -Continue vancomycin with PK consult -Continue ertapenem 500 mg IV qday -total 3 days -Education about non compliance Guarded prognosis Will follow. Chloe Fitch MD Infectious Diseases Numerical Control Programmer [facility] [phone] O [phone] Subjective Date of service: 08/02/20 Principal diagnosis: Hyperkalemia, end-stage renal disease, vomiting Objective - Constitutional Vitals: Vital Signs Temp Pulse Resp BP Pulse Ox 98.8 F 79 18 157/85 95 08/02/20 07:49 08/02/20 07:49 08/02/20 07:49 08/02/20 07:49 08/02/20 07:49 Temperature -Last 24 Hours Temperature 98.8 F Temperature 98.2 F Temperature 98.2 F Temperature 98.8 F Temperature 100.8 F Temperature 98.7 F Temperature 98.7 F Temperature 98.7 F Temperature 98.8 F Temperature 98.7 F - Labs CBC & Chem 7: 08/01/20 06:32 08/01/20 06:32 Labs: Abnormal lab results 07/31/20 08/01/20 08/01/20 Range/Units 20:30 11:52 15:58 POC Glucose 193 H 171 H (70-105) Crossmatch See Detail 08/01/20 08/02/20 Range/Units 21:06 08:06 POC Glucose 47 L 231 H (70-105) Crossmatch
[2020-08-02] MEDS: cloNIDine 0.1 MG TAB PO SCH ×2 (10:32→22:42)
[2020-08-02] MEDS: APIXABAN 5 MG TAB PO SCH ×2 (10:33→22:42)
[2020-08-02] MEDS: SERTRALINE 50 MG TAB PO SCH (10:33)
[2020-08-02] MEDS: ERTAPENEM 0.5 GM in SODIUM CHLORIDE 0.9% 50 ML IV SCH ×2 (10:33→15:02)
[2020-08-02] MEDS: amLODIPine 10 MG TAB PO SCH (10:33)
[2020-08-02] MEDS: carvediloL 25 MG TAB PO SCH ×2 (10:33→19:26)
[2020-08-02] MEDS: INSULIN LISPRO 100 UNIT/ML VIAL 3 mL SUB-Q SCH ×4 (10:34→22:41)
--- NOTE | 2020-08-02 10:47 | Progress Note ---
Assessment and Plan Assessment and plan: --MRSA bacteremia: ID recommend removal of hemodialysis catheter I personally discussed with hydro station operator Placed vascular consult --Severe sepsis ; secondary to MRSA bacteremia Current Visit: Yes Status: Chronic Plan to address problem: ID recommended to DC dialysis catheter I informed hydro station operator, placed vascular consult Antibiotics per ID, follow repeat blood cultures --Severe sepsis ; secondary to UTI : POA Current Visit: Yes Status: Chronic Plan to address problem: Fever, leukocytosis, positive urine cultures ESBL Continue ertapenem --Hyperkalemia Current Visit: Yes Status: Acute . Plan to address problem: Improved to normal -- End-stage renal disease needing dialysis Current Visit: Yes Status: Chronic Plan to address problem: On hemodialysis , ID recommended to remove HD catheter I discussed with nephrology , vascular consult placed --Anemia; Hb 7.0 Current Visit: Yes Status: Chronic Plan to address problem: Multifactorial , anemia of chronic disease Secondary to erosive esophagitis , transfuse 1 unit of PRBC during dialysis Closely monitor H&H, transfuse additional PRBC as needed Procrit during dialysis --Erosive esophagitis Current Visit: Yes Status: Acute Plan to address problem: IV Protonix, GI consult if needed -- Hypertensive urgency/POA Current Visit: Yes Status: Acute Plan to address problem: Blood pressure moderate control Continue current antihypertensives and PRN medications --Gastroparesis Current Visit: Yes Status: Acute Plan to address problem: Symptomatic treatment Antiemetics, Reglan as needed. --Depression; Current Visit: Yes Status: Acute Plan to address problem: Denies suicidal thoughts or ideation Psych evaluation noted and appreciated Continue Zoloft --Medical noncompliance; Current Visit: Yes Status: Acute Plan to address problem: patient strongly counseled the importance of adhering to the treatment plan Adhere to medications diet follow-up visit hemodialysis Patient verbalized understanding -- DVT prophylaxis Current Visit: No Status: Acute Plan to address problem: On heparin and GI prophylaxis Protonix We will closely monitor the patient and adjust management as needed Patient is critically ill with severe sepsis, anemia Poor prognosis, Follow tanning consultant recommendations Plan of care reviewed with the patient and his nurse History Interval history: I have seen and examined the patient at the bedside Patient's chart and medications reviewed Patient feels slightly better Vital signs noted On contact isolation due to ESBL Hospitalist Physical - Constitutional Vitals: Temp Pulse Resp BP Pulse Ox 98.8 F 79 18 157/85 95 08/02/20 07:49 08/02/20 07:49 08/02/20 07:49 08/02/20 07:49 08/02/20 07:49 General appearance: Present: mild distress, well-nourished, other (Chronically ill looking) - EENT Eyes: Present: PERRL, EOM intact - Neck Neck: Present: supple, normal ROM - Respiratory Respiratory effort: normal Respiratory: bilateral: diminished, negative: rales, rhonchi, wheezing - Cardiovascular Rhythm: regular Heart Sounds: Present: S1 & S2 - Extremities Extremities: no ischemia, No edema - Abdominal General gastrointestinal: soft, non-tender, non-distended, normal bowel sounds - Integumentary Integumentary: Present: clear, warm - Psychiatric Psychiatric: appropriate mood/affect, cooperative - Neurologic Neurologic: moves all extremities Results - Labs CBC & Chem 7: 08/01/20 06:32 08/01/20 06:32 Labs: Laboratory Last Values WBC 12.3 K/mm3 (4.5-11.0) H 08/01/20 06:32 RBC 2.92 M/mm3 (3.65-5.03) L 08/01/20 06:32 Hgb 7.0 gm/dl (11.8-15.2) L 08/01/20 06:32 Hct 22.6 % (35.5-45.6) L 08/01/20 06:32 MCV 77 fl (84-94) L 08/01/20 06:32 MCH 24 pg (28-32) L 08/01/20 06:32 MCHC 31 % (32-34) L 08/01/20 06:32 RDW 21.2 % (13.2-15.2) H 08/01/20 06:32 Plt Count 344 K/mm3 (140-440) 08/01/20 06:32 Lymph % (Auto) 6.6 % (13.4-35.0) L 08/01/20 06:32 [place] % (Auto) 9.6 % (0.0-7.3) H 08/01/20 06:32 Eos % (Auto) 0.5 % (0.0-4.3) 08/01/20 06:32 Baso % (Auto) 0.5 % (0.0-1.8) 08/01/20 06:32 Lymph # 0.8 K/mm3 (1.2-5.4) L 08/01/20 06:32 [place] # 1.2 K/mm3 (0.0-0.8) H 08/01/20 06:32 Eos # 0.1 K/mm3 (0.0-0.4) 08/01/20 06:32 Baso # 0.1 K/mm3 (0.0-0.1) 08/01/20 06:32 Add Manual Diff Complete 07/29/20 16:06 Total Counted 100 07/29/20 16:06 Seg Neutrophils % 82.8 % (40.0-70.0) H 08/01/20 06:32 Seg Neuts % (Manual) 89.0 % (40.0-70.0) H 07/29/20 16:06 Band Neutrophils % 0 % 07/29/20 16:06 Lymphocytes % (Manual) 6.0 % (13.4-35.0) L 07/29/20 16:06 Reactive Lymphs % (Man) 0 % 07/29/20 16:06 Monocytes % (Manual) 4.0 % (0.0-7.3) 07/29/20 16:06 Eosinophils % (Manual) 1.0 % (0.0-4.3) 07/29/20 16:06 Basophils % (Manual) 0 % (0.0-1.8) 07/29/20 16:06 Metamyelocytes % 0 % 07/29/20 16:06 Myelocytes % 0 % 07/29/20 16:06 Promyelocytes % 0 % 07/29/20 16:06 Blast Cells % 0 % 07/29/20 16:06 Nucleated RBC % Not Reportable 07/29/20 16:06 Seg Neutrophils # 10.2 K/mm3 (1.8-7.7) H 08/01/20 06:32 Seg Neutrophils # Man 18.6 K/mm3 (1.8-7.7) H 07/29/20 16:06 Band Neutrophils # 0.0 K/mm3 07/29/20 16:06 Lymphocytes # (Manual) 1.3 K/mm3 (1.2-5.4) 07/29/20 16:06 Abs React Lymphs (Man) 0.0 K/mm3 07/29/20 16:06 Monocytes # (Manual) 0.8 K/mm3 (0.0-0.8) 07/29/20 16:06 Eosinophils # (Manual) 0.2 K/mm3 (0.0-0.4) 07/29/20 16:06 Basophils # (Manual) 0.0 K/mm3 (0.0-0.1) 07/29/20 16:06 Metamyelocytes # 0.0 K/mm3 07/29/20 16:06 Myelocytes # 0.0 K/mm3 07/29/20 16:06 Promyelocytes # 0.0 K/mm3 07/29/20 16:06 Blast Cells # 0.0 K/mm3 07/29/20 16:06 WBC Morphology Not Reportable 07/29/20 16:06 Hypersegmented Neuts Not Reportable 07/29/20 16:06 Hyposegmented Neuts Not Reportable 07/29/20 16:06 Hypogranular Neuts Not Reportable 07/29/20 16:06 Smudge Cells Not Reportable 07/29/20 16:06 Toxic Granulation Not Reportable 07/29/20 16:06 Toxic Vacuolation Not Reportable 07/29/20 16:06 Dohle Bodies Not Reportable 07/29/20 16:06 Pelger-Huet Anomaly Not Reportable 07/29/20 16:06 Julio Cesar Rods Not Reportable 07/29/20 16:06 Platelet Estimate Not Reportable 07/29/20 16:06 Clumped Platelets Not Reportable 07/29/20 16:06 Plt Clumps, EDTA Not Reportable 07/29/20 16:06 Large Platelets Not Reportable 07/29/20 16:06 Giant Platelets Not Reportable 07/29/20 16:06 Platelet Satelliting Not Reportable 07/29/20 16:06 Plt Morphology Comment Not Reportable 07/29/20 16:06 RBC Morphology Not Reportable 07/29/20 16:06 Dimorphic RBCs Not Reportable 07/29/20 16:06 Polychromasia Not Reportable 07/29/20 16:06 Hypochromasia 1+ 07/29/20 16:06 Poikilocytosis Not Reportable 07/29/20 16:06 Anisocytosis 1+ 07/29/20 16:06 Microcytosis Few 07/29/20 16:06 Macrocytosis Not Reportable 07/29/20 16:06 Spherocytes Not Reportable 07/29/20 16:06 Pappenheimer Bodies Not Reportable 07/29/20 16:06 Sickle Cells Not Reportable 07/29/20 16:06 Target Cells Not Reportable 07/29/20 16:06 Tear Drop Cells Not Reportable 07/29/20 16:06 Ovalocytes Not Reportable 07/29/20 16:06 Helmet Cells Not Reportable 07/29/20 16:06 [place] Bodies Not Reportable 07/29/20 16:06 [place] Rings Not Reportable 07/29/20 16:06 Olive Cells Not Reportable 07/29/20 16:06 Bite Cells Not Reportable 07/29/20 16:06 Crenated Cell Not Reportable 07/29/20 16:06 Elliptocytes Not Reportable 07/29/20 16:06 Acanthocytes (Spur) Not Reportable 07/29/20 16:06 Rouleaux Not Reportable 07/29/20 16:06 Hemoglobin C Crystals Not Reportable 07/29/20 16:06 Schistocytes Not Reportable 07/29/20 16:06 Malaria parasites Not Reportable 07/29/20 16:06 David Bodies Not Reportable 07/29/20 16:06 Hem Pathologist Commnt No 07/29/20 16:06 PT 22.3 Sec. (12.2-14.9) H 07/31/20 05:36 INR 1.91 (0.87-1.13) H 07/31/20 05:36 Sodium 137 mmol/L (137-145) 08/01/20 06:32 Potassium 5.1 mmol/L (3.6-5.0) H 08/01/20 06:32 Chloride 93.8 mmol/L (98-107) L 08/01/20 06:32 Carbon Dioxide 23 mmol/L (22-30) 08/01/20 06:32 Anion Gap 25 mmol/L 08/01/20 06:32 BUN 62 mg/dL (9-20) H 08/01/20 06:32 Creatinine 11.4 mg/dL (0.8-1.3) H 08/01/20 06:32 Estimated GFR 6 ml/min 08/01/20 06:32 BUN/Creatinine Ratio 5 % 08/01/20 06:32 Glucose 217 mg/dL (75-100) H 08/01/20 06:32 POC Glucose 231 (70-105) H 08/02/20 08:06 Calcium 7.5 mg/dL (8.4-10.2) L 08/01/20 06:32 Urine Color Yellow (Yellow) 07/29/20 Unknown Urine Turbidity Slightly-cloudy (Clear) 07/29/20 Unknown Urine pH 6.0 (5.0-7.0) 07/29/20 Unknown Ur Specific [place] 1.024 (1.003-1.030) 07/29/20 Unknown Urine Protein >500 mg/dL (Negative) 07/29/20 Unknown Urine Glucose (UA) >=500 mg/dL (Negative) 07/29/20 Unknown Urine Ketones Tr mg/dL (Negative) 07/29/20 Unknown Urine Blood Sm (Negative) 07/29/20 Unknown Urine Nitrite Neg (Negative) 07/29/20 Unknown Urine Bilirubin Neg (Negative) 07/29/20 Unknown Urine Urobilinogen < 2.0 mg/dL (<2.0) 07/29/20 Unknown Ur Leukocyte Esterase Tr (Negative) 07/29/20 Unknown Urine WBC (Auto) 34.0 /HPF (0.0-6.0) H 07/29/20 Unknown Urine RBC (Auto) 9.0 /HPF (0.0-6.0) 07/29/20 Unknown U Epithel Cells (Auto) 1.0 /HPF (0-13.0) 07/29/20 Unknown Urine Bacteria (Auto) 1+ /HPF (Negative) 07/29/20 Unknown Urine Yeast (Budding) 1+ /HPF 07/29/20 Unknown Random Vancomycin 6.1 ug/mL (0-40.0) 08/02/20 07:22 Salicylates < 0.3 mg/dL (2.8-20.0) L 07/29/20 16:06 Urine Opiates Screen Presumptive negative 07/29/20 Unknown Urine Methadone Screen Presumptive negative 07/29/20 Unknown Acetaminophen 5.0 ug/mL (10.0-30.0) L 07/29/20 16:06 Ur Barbiturates Screen Presumptive negative 07/29/20 Unknown Ur Phencyclidine Scrn Presumptive negative 07/29/20 Unknown Ur Amphetamines Screen Presumptive negative 07/29/20 Unknown U Benzodiazepines Scrn Presumptive negative 07/29/20 Unknown Urine Cocaine Screen Presumptive negative 07/29/20 Unknown U Marijuana (THC) Screen Presumptive negative 07/29/20 Unknown Drugs of Abuse Note Disclamer 07/29/20 Unknown Plasma/Serum Alcohol < 0.01 % (0-0.07) 07/29/20 16:06 Hepatitis A IgM Ab Non-reactive (NonReactive) 07/30/20 05:31 Hep Bs Antigen Non-reactive (Negative) 07/30/20 05:31 Hep B Core IgM Ab Non-reactive (NonReactive) 07/30/20 05:31 Hepatitis C Antibody Non-reactive (NonReactive) 07/30/20 05:31 Blood Type O POSITIVE 07/31/20 20:30 Antibody Screen Negative 07/31/20 20:30 Crossmatch See Detail 07/31/20 20:30 Microbiology: Microbiology 07/30/20 06:03 Peripheral/Venous Blood Culture - Final Methicillin Resist S. Aureus 07/31/20 15:42 Peripheral/Venous Blood Culture - Preliminary Staphylococcus Aureus 07/31/20 15:42 Peripheral/Venous Blood Culture - Preliminary Staphylococcus Aureus 07/30/20 05:31 Peripheral/Venous Blood Culture - Preliminary Methicillin Resist S. Aureus Perez/IV: Voiding Method Urinal IV Catheter Type [Left INT / Saline Lock External Jugular] IV Catheter Type [Left Chest] VAS Cath IV Catheter Type [Left INT / Saline Lock Antecubital] Active Medications - Current Medications Current Medications: Generic Name Dose Route Start Last Admin Trade Name Freq PRN Reason Stop Dose Admin Acetaminophen 650 mg 07/30/20 00:41 08/01/20 13:44 Tylenol PO 650 mg Q4H PRN Administration Pain MILD(1-3)/Fever >100.5/LANZA Albuterol 0.63 mg 07/30/20 07:01 Proventil IH Q4HRT PRN Shortness Of Breath Amlodipine Besylate 10 mg 07/30/20 10:00 08/02/20 10:33 Amlodipine PO 10 mg DAILY KESHIA Administration Apixaban 5 mg 07/30/20 10:00 08/02/20 10:33 Eliquis PO 5 mg BID KESHIA Administration Protocol Carvedilol 25 mg 07/30/20 08:00 08/02/20 10:33 Coreg PO 25 mg BID@0800,1700 KESHIA Administration Clonidine HCl 0.1 mg 07/30/20 10:00 08/02/20 10:32 Catapres PO 0.1 mg BID KESHIA Administration Dextrose 0 ml 07/30/20 00:41 08/01/20 21:31 D50w (25gm) Syringe IV 50 ml Q30MIN PRN Administration Hypoglycemia Protocol Epoetin Wale 20,000 unit 08/01/20 14:40 Procrit IV BRENDAN PRN hemodialysis Hydralazine HCl 100 mg 07/30/20 14:00 08/02/20 06:27 Apresoline PO 100 mg Q8HR KESHIA Administration Sodium Chloride 100 mls @ 999 mls/hr 08/01/20 09:00 Nacl 0.9% IV BRENDAN PRN Hypotension Ertapenem 0.5 gm/ Sodium 50 mls @ 100 mls/hr 08/01/20 18:00 08/01/20 19:41 Chloride IV Infused QDAY KESHIA Infusion Insulin Human Lispro 0 unit 07/30/20 07:30 08/02/20 10:34 Humalog SUB-Q 3 unit ACHS KESHIA Administration Protocol Magnesium Hydroxide 30 ml 07/30/20 00:41 Milk Of Magnesia PO Q4H PRN Constipation Ondansetron HCl 4 mg 07/30/20 00:41 07/30/20 22:01 Zofran IV 4 mg Q8H PRN Administration Nausea And Vomiting Pantoprazole Sodium 40 mg 07/30/20 22:00 08/01/20 21:31 Protonix PO 40 mg QHS KESHIA Administration Sertraline HCl 50 mg 07/30/20 12:00 08/02/20 10:33 Zoloft PO 50 mg DAILY KESHIA Administration Sodium Chloride 10 ml 07/30/20 10:00 08/02/20 10:33 Sodium Chloride Flush Syringe 10 Ml IV 10 ml BID KESHIA Administration Sodium Chloride 10 ml 07/30/20 00:41 Sodium Chloride Flush Syringe 10 Ml IV PRN PRN LINE FLUSH Nutrition/Malnutrition Assess - Dietary Evaluation Nutrition/Malnutrition Findings: Nutrition Notes Start: 07/30/20 10:57 Freq: Status: Active Protocol: Document 07/30/20 10:58 YARELI (Rec: 07/30/20 11:15 YARELI [id number]) Co-Sign 07/30/20 10:58 LP Nutrition Notes Need for Assessment generated from: MD Order,Education Initial or Follow up Assessment Current Diagnosis CKD (stage V CKD),Diabetes, Hypertension Other Pertinent Diagnosis ESRD - HD, Abd pain, hx of erosive esophagitis, gastroparesis Current Diet Cardiac/Consistent CHO/Renal Labs/Tests K 6.5 Pertinent Medications Reviewed Height 6 ft 3 in Weight 87.6 kg Usual Body Weight 93.6 kg Carlotta Body Weight (kg) 89.09 BMI 24.1 Intake Prior to Admission Fair Weight change and time frame 6% weight loss in one month Weight Status Appropriate Subjective/Other Information MD consult for diet education. Pt was given some renal and DM education but started vomiting before complete and reports still having questions . Pt reports wt loss to decreased appetitie. Pt reports having an appetite today but unable to consume food. Burn Absent Trauma Absent GI Symptoms Nausea,Vomiting Current % PO Negligible Minimum of two criteria No Interpretation of Weight Loss (severe) >2% in 1 week #2 Nutrition Diagnosis Food and nutrition-related knowledge deficit Etiology Not understanding prior nutrition education As Evidenced by Signs and Symptoms Pt had questions about what foods to eat #1 Nutrition Diagnosis Inadequate oral intake Etiology Abdominal pain, missed HD As Evidenced by Signs and Symptoms N/V Is patient on ventilator? No Is Patient Ambulatory and/or Out of Bed Yes REE-([facility]-ambulatory/OOB) [ 2485.119 [id number]] Calculation Used for Recommendations [facility] Additional Notes Pro: >105g (>1.2g/kg) Fluid: 1ml/kcal or per MD Nutrition Intervention Change Diet Order: Renal/consistent CHO Teaching Recipient Patient Learning Readiness Fair Teaching Methods Discussion Response to Teaching Reinforcement needed Education Handouts Provided ESRD Diet Tips ESRD on HD Food List Barriers to Learning Physical RD phone number provided Yes Patient aware of follow up options Yes Goal #1 Understand ESRD and DM diet edu Goal #2 Meet at least 80% of protein and energy needs via PO intakes Anticipated Discharge Needs: Renal, Consistent CHO Follow-Up By: 08/02/20 Additional Comments FU for intakes and diet education
[2020-08-02] MEDS ORDERED: VANCOMYCIN 1,750 MG in SODIUM CHLORIDE 0.9% 500 ML 500 ML IV ONE (12:00)
--- NOTE | 2020-08-02 13:27 | Vascular Lab Report ---
DUPLEX DOPPLER UPPER EXTREMITY VENOUS, RIGHT INDICATION / CLINICAL INFORMATION: check for IJ atresia vs thrombus. TECHNIQUE: Duplex doppler imaging was performed through the veins of the right upper extremity using venous comp ression and other maneuvers. COMPARISON: None available. FINDINGS: RIGHT INTERNAL JUGULAR VEIN: Atretic. RIGHT SUBCLAVIAN VEIN: Negative. RIGHT AXILLARY VEIN: Negative. RIGHT BRACHIAL VEIN: Negative. RIGHT FOREARM VEINS: Negative. RIGHT BASILIC VEIN (SUPERFICIAL): Negative. ADDITIONAL FINDINGS: None. IMPRESSION: 1. No sonographic evidence for DVT. 2. Atretic right IJV. Signer Name: Alex Hernandez MD Signed: 08/02/2020 1:23 PM Workstation Name: [id number]
--- NOTE | 2020-08-02 14:56 | Progress Note ---
Assessment and Plan ESRD on Hemodialysis: Hyperkalemia: Abdominal Pain: HTN: Possible UTI: Depression: ACD due to ESRD: Plan: -no indication for HD today -Fluid restriction of 1 liter per day -Anemia-Epogen 20,000 units with HD -Renally dose medications -Strict I/Os monitoring -Obtain daily weights -Assess dialysis needs daily Rio Gallo MD [phone] Subjective Date of service: 08/02/20 Principal diagnosis: Hyperkalemia, end-stage renal disease, vomiting Interval history: weak but comfortable Objective - Vital Signs Vital signs: Vital Signs - 12hr 08/02/20 08/02/20 08/02/20 03:00 04:47 07:49 Temperature 98.2 F 98.8 F Pulse Rate 78 77 79 Respiratory 16 18 Rate Blood Pressure 124/68 157/85 O2 Sat by Pulse 93 95 Oximetry - General Appearance General appearance: well-developed, well-nourished EENT: ATNC, PERRL Neck: no JVD Respiratory: Present: Decreased Breath Sounds Cardiology: regular, S1S2 Gastrointestinal: normoactive bowel sounds Integumentary: no rash, warm and dry Neurologic: no focal deficit, no asterixis Musculoskeletal: deferred Psychiatric: cooperative - Lab 08/01/20 06:32 08/01/20 06:32 Most recent lab results Calcium 7.5 mg/dL (8.4-10.2) L 08/01/20 06:32 Medications & Allergies - Medications Allergies/Adverse Reactions: Allergies No Known Allergies Allergy (Verified 07/20/20 15:05) Home Medications: Home Medications Medication Instructions Recorded Confirmed Last Taken Type Albuterol Sulfate [Albuterol 0.63% 0.63 mg IH Q4HR PRN #50 04/17/20 07/30/20 05/30/20 Rx NEBS] Lispro Insulin [HumaLOG] 5 unit SQ AC #1 vial 04/17/20 07/30/20 06/15/20 Rx Apixaban [Eliquis] 1 tab PO BID #60 tablet 07/17/20 07/30/20 07/22/20 08:00 Rx Insulin Glargine [Lantus VIAL] 10 units SUB-Q QHS units 07/17/20 07/30/20 07/21/20 20:00 Rx Metoclopramide [Reglan TAB] 5 mg PO ACHS PRN #120 tablet 07/17/20 07/30/20 07/22/20 08:00 Rx Pantoprazole [Protonix TAB] 40 mg PO DAILY #60 tablet 07/17/20 07/30/20 07/22/20 08:00 Rx amLODIPine 10 mg PO DAILY #30 tablet 07/17/20 07/30/20 07/22/20 08:00 Rx carvediloL [Coreg] 25 mg PO BID 30 Days #60 tablet 07/17/20 07/30/20 07/22/20 08:00 Rx cloNIDine [Catapres] 0.1 mg PO BID #60 tablet 07/17/20 07/30/20 07/22/20 08:00 Rx hydrALAZINE [Apresoline TAB] 100 mg PO Q8HR #90 tab 07/17/20 07/30/20 07/22/20 08:00 Rx Active Medications: Generic Name Dose Route Start Last Admin Trade Name Freq PRN Reason Stop Dose Admin Acetaminophen 650 mg 07/30/20 00:41 08/01/20 13:44 Tylenol PO 650 mg Q4H PRN Administration Pain MILD(1-3)/Fever >100.5/LANZA Albuterol 0.63 mg 07/30/20 07:01 Proventil IH Q4HRT PRN Shortness Of Breath Amlodipine Besylate 10 mg 07/30/20 10:00 08/02/20 10:33 Amlodipine PO 10 mg DAILY KESHIA Administration Apixaban 5 mg 07/30/20 10:00 08/02/20 10:33 Eliquis PO 5 mg BID KESHIA Administration Protocol Carvedilol 25 mg 07/30/20 08:00 08/02/20 10:33 Coreg PO 25 mg BID@0800,1700 KESHIA Administration Clonidine HCl 0.1 mg 07/30/20 10:00 08/02/20 10:32 Catapres PO 0.1 mg BID KESHIA Administration Dextrose 0 ml 07/30/20 00:41 08/01/20 21:31 D50w (25gm) Syringe IV 50 ml Q30MIN PRN Administration Hypoglycemia Protocol Epoetin [place]ale 20,000 unit 08/01/20 14:40 Procrit IV BRENDAN PRN hemodialysis Hydralazine HCl 100 mg 07/30/20 14:00 08/02/20 13:57 Apresoline PO 100 mg Q8HR KESHIA Administration Sodium Chloride 100 mls @ 999 mls/hr 08/01/20 09:00 Nacl 0.9% IV BRENDAN PRN Hypotension Ertapenem 0.5 gm/ Sodium 50 mls @ 100 mls/hr 08/01/20 18:00 08/01/20 19:41 Chloride IV 08/03/20 10:29 Infused QDAY KESHIA Infusion Insulin Human Lispro 0 unit 07/30/20 07:30 08/02/20 14:02 Humalog SUB-Q Not Given ACHS [facility] Protocol Magnesium Hydroxide 30 ml 07/30/20 00:41 Milk Of Magnesia PO Q4H PRN Constipation Ondansetron HCl 4 mg 07/30/20 00:41 07/30/20 22:01 Zofran IV 4 mg Q8H PRN Administration Nausea And Vomiting Pantoprazole Sodium 40 mg 07/30/20 22:00 08/01/20 21:31 Protonix PO 40 mg QHS KESHIA Administration Sertraline HCl 50 mg 07/30/20 12:00 08/02/20 10:33 Zoloft PO 50 mg DAILY KESHIA Administration Sodium Chloride 10 ml 07/30/20 10:00 08/02/20 10:33 Sodium Chloride Flush Syringe 10 Ml IV 10 ml BID KESHIA Administration Sodium Chloride 10 ml 07/30/20 00:41 Sodium Chloride Flush Syringe 10 Ml IV PRN PRN LINE FLUSH
[2020-08-02] MEDS: PANTOPRAZOLE 40 MG TAB PO SCH (22:42)
[2020-08-03] MEDS: hydrALAZINE 100 MG TAB PO SCH ×3 (06:04→22:33)
[2020-08-03] MEDS: INSULIN LISPRO 100 UNIT/ML VIAL 3 mL SUB-Q SCH ×4 (08:00→22:34)
[2020-08-03] MEDS: cloNIDine 0.1 MG TAB PO SCH ×2 (11:03→22:33)
[2020-08-03] MEDS: amLODIPine 10 MG TAB PO SCH (11:03)
[2020-08-03] MEDS: SERTRALINE 50 MG TAB PO SCH (11:04)
[2020-08-03] MEDS: APIXABAN 5 MG TAB PO SCH ×2 (11:04→22:33)
[2020-08-03] MEDS: carvediloL 25 MG TAB PO SCH ×2 (11:08→17:47)
[2020-08-03] MEDS: ERTAPENEM 0.5 GM in SODIUM CHLORIDE 0.9% 50 ML IV SCH (11:11)
--- NOTE | 2020-08-03 12:02 | Consultation ---
History of Present Illness - Reason for Consult Consult date: 08/02/20 Permacath with MRSA Bacteremia Requesting physician: JIMBO DOWLING - History of Present Illness Patient is a 34-year-old male with a history of end-stage renal disease who has a right brachiobasilic arteriovenous fistula that has not yet been transposed in a left internal jugular permacath that he uses for dialysis. He presents with fevers and leukocytosis and was found to have an MRSA bacteremia. He also has drainage from his permacath site. The patient has been scheduled multiple times for revision with elevation of his brachiobasilic arteriovenous fistula however he is fairly noncompliant and has missed multiple dialysis days and presents with hyperkalemia requiring cancellation of his elective procedures. This has prevented him from having the second stage of his elevation. He has no additional complaints at this time. Past History Past Medical History: diabetes, dialysis, ESRD, hypertension, other (Ulcerative esophagitis,Gastroparesis,NSTEMI,) Past Surgical History: appendectomy, cholecystectomy, Other (Right great toe amputation) Social history: no significant social history Family history: no significant family history Medications and Allergies Allergies Allergy/AdvReac Type Severity Reaction Status Date / Time No Known Allergies Allergy Verified 07/20/20 15:05 Home Medications Medication Instructions Recorded Confirmed Last Taken Type Albuterol Sulfate [Albuterol 0.63% 0.63 mg IH Q4HR PRN #50 04/17/20 07/30/20 05/30/20 Rx NEBS] Lispro Insulin [HumaLOG] 5 unit SQ AC #1 vial 04/17/20 07/30/20 06/15/20 Rx Apixaban [Eliquis] 1 tab PO BID #60 tablet 07/17/20 07/30/20 07/22/20 08:00 Rx Insulin Glargine [Lantus VIAL] 10 units SUB-Q QHS units 07/17/20 07/30/20 07/21/20 20:00 Rx Metoclopramide [Reglan TAB] 5 mg PO ACHS PRN #120 tablet 07/17/20 07/30/20 07/22/20 08:00 Rx Pantoprazole [Protonix TAB] 40 mg PO DAILY #60 tablet 07/17/20 07/30/20 07/22/20 08:00 Rx amLODIPine 10 mg PO DAILY #30 tablet 07/17/20 07/30/20 07/22/20 08:00 Rx carvediloL [Coreg] 25 mg PO BID 30 Days #60 tablet 07/17/20 07/30/20 07/22/20 08:00 Rx cloNIDine [Catapres] 0.1 mg PO BID #60 tablet 07/17/20 07/30/20 07/22/20 08:00 Rx hydrALAZINE [Apresoline TAB] 100 mg PO Q8HR #90 tab 07/17/20 07/30/20 07/22/20 08:00 Rx Active Meds: Active Medications Acetaminophen (Tylenol) 650 mg PO Q4H PRN PRN Reason: Pain MILD(1-3)/Fever >100.5/LANZA Last Admin: 08/01/20 13:44 Dose: 650 mg Documented by: Albuterol (Proventil) 0.63 mg IH Q4HRT PRN PRN Reason: Shortness Of Breath Amlodipine Besylate (Amlodipine) 10 mg PO DAILY [facility] Last Admin: 08/03/20 11:03 Dose: 10 mg Documented by: Apixaban (Eliquis) 5 mg PO BID [facility]; Protocol Last Admin: 08/03/20 11:04 Dose: 5 mg Documented by: Carvedilol (Coreg) 25 mg PO BID@0800,1700 [facility] Last Admin: 08/03/20 11:08 Dose: 25 mg Documented by: Clonidine HCl (Catapres) 0.1 mg PO BID [facility] Last Admin: 08/03/20 11:03 Dose: 0.1 mg Documented by: Dextrose (D50w (25gm) Syringe) 0 ml IV Q30MIN PRN; Protocol PRN Reason: Hypoglycemia Last Admin: 08/01/20 21:31 Dose: 50 ml Documented by: Epoetin Wale (Procrit) 20,000 unit IV BRENDAN PRN PRN Reason: hemodialysis Hydralazine HCl (Apresoline) 100 mg PO Q8HR [facility] Last Admin: 08/03/20 06:04 Dose: 100 mg Documented by: Sodium Chloride (Nacl 0.9%) 100 mls @ 999 mls/hr IV BRENDAN PRN PRN Reason: Hypotension Insulin Human Lispro (Humalog) 0 unit SUB-Q ACHS [facility]; Protocol Last Admin: 08/03/20 08:00 Dose: Not Given Documented by: Magnesium Hydroxide (Milk Of Magnesia) 30 ml PO Q4H PRN PRN Reason: Constipation Ondansetron HCl (Zofran) 4 mg IV Q8H PRN PRN Reason: Nausea And Vomiting Last Admin: 07/30/20 22:01 Dose: 4 mg Documented by: Pantoprazole Sodium (Protonix) 40 mg PO QHS [facility] Last Admin: 08/02/20 22:42 Dose: 40 mg Documented by: Sertraline HCl (Zoloft) 50 mg PO DAILY [facility] Last Admin: 08/03/20 11:04 Dose: 50 mg Documented by: Sodium Chloride (Sodium Chloride Flush Syringe 10 Ml) 10 ml IV BID [facility] Last Admin: 08/03/20 11:04 Dose: 10 ml Documented by: Sodium Chloride (Sodium Chloride Flush Syringe 10 Ml) 10 ml IV PRN PRN PRN Reason: LINE FLUSH Review of Systems All systems: negative Exam - Constitutional Vitals: Temp Pulse Resp BP Pulse Ox 98.8 F 76 18 153/86 94 08/03/20 07:30 08/03/20 07:30 08/03/20 07:30 08/03/20 07:30 08/03/20 04:15 General appearance: Present: no acute distress - Neck Neck: Present: supple, other (Left internal jugular permacath with serosanguineous and slightly cloudy drainage from the exit site on the chest) - Respiratory Respiratory effort: normal - Cardiovascular Rhythm: regular - Extremities Extremities: no ischemia, pulses intact Extremity abnormal: other (Right arm arteriovenous fistula with palpable thrill) - Abdominal General gastrointestinal: Present: soft Male genitourinary: Present: deferred - Rectal Rectal Exam: deferred Results - Labs CBC & Chem 7: 08/01/20 06:32 08/01/20 06:32 Labs: Abnormal lab results 08/02/20 08/02/20 08/03/20 Range/Units 15:57 21:30 08:03 POC Glucose 132 H 186 H 204 H (70-105) 08/03/20 Range/Units 11:19 POC Glucose 195 H (70-105) Assessment and Plan And is a 34-year-old male with a history of end-stage renal disease and MRSA bacteremia from an left internal jugular permacath. He is in need of removal of the permacath and a catheter holiday while he is treated with antibiotics. 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 At some point the patient needs revision with elevation of his right brachiobasilic arteriovenous fistula however this has proven to be difficult secondary to his noncompliance. Performed the procedure during this hospitalization will be the optimal time from a logistical standpoint given his poor compliance however this is not typically done given his bacteremia. If his bacteremia is cleared with antibiotics during his hospitalization and infectious disease agrees with the plan, I will revise his right brachiobasilic arteriovenous fistula and elevate the fistula. These procedures have the tendency to develop seromas in the postoperative wound bed and given his current infection could become secondarily infected however I would place a Patrick-Hernandez drain to decrease the chances of a seroma and the chance of infection. I believe revising his fistula during this hospitalization would decrease the amount of time that he will require a permacath and therefore decrease his chances of developing additional catheter related infections. I will discuss this with infectious disease and ask for their input prior to proceeding. I did discuss this with the patient and he agrees with the plan.
--- NOTE | 2020-08-03 12:16 | Operative Report ---
Operative Report Operative Report: Date of Procedure: 08/02/2020 Pre-operative Diagnosis: Left Internal Jugular Permacath with MRSA Bacteremia Post-operative Diagnosis: Same Procedure(s): 1. Removal of Left Internal Jugular Permacath Surgeon: Shakir Benítez M.D. Digital Designer: Kim Anesthesia: None EBL: Minimal Counts:Correct Complications: None Condition: Stable Findings: Serosanguineous and cloudy drainage from permacath exit site. Specimen: Left internal jugular permacath tip sent for culture. Indication: The patient is a 34-year-old male with a history of end-stage renal disease who is currently on hemodialysis through a left internal jugular permacath. He presented with MRSA bacteremia and is in need of removal of the permacath. He was given the risk, benefits, and alternative procedures and consented to the procedure. Description of Procedure: This procedure was performed at the patient's bedside. After informed consent was obtained, the patient's left neck and chest were prepped and draped in normal sterile fashion. Given the amount of drainage from the exit site it was felt that the catheter were the easy to remove when there was no need for lidocaine. Scissors were used to remove the suture and steady pressure was used to pull the catheter from the exit site. The catheter was easily removed from the site and manual pressure was held on the neck to achieve hemostasis. Once hemostasis was achieved a sterile dressing was applied to the exit site. The catheter tip was cut and sent for culture. The patient tolerated the procedure well and remained in his room in stable condition.
--- NOTE | 2020-08-03 12:46 | Progress Note ---
Assessment and Plan Assessment: ESRD on Hemodialysis: Hyperkalemia: Abdominal Pain: HTN: Possible UTI: Depression: ACD due to ESRD: Plan: -S/P perm-cath removal this morning for line holiday due to MRSA Bacteremia -Fluid restriction of 1 liter per day -Anemia-On Epogen 20,000 units with HD -Renally dose medications -Strict I/Os monitoring -Obtain daily weights -Assess dialysis needs daily Vascular access plan: Per Vascular, Dr. Benítez: "Patient will eventually require replacement of a temporary dialysis catheter. At some point the patient needs revision with elevation of his right brachiobasilic arteriovenous fistula, if his bacteremia is cleared with antibiotics during his hospitalization and infectious disease agrees with the plan, I will revise his right brachiobasilic arteriovenous fistula and elevate the fistula. I will discuss this with infectious disease and ask for their input prior to proceeding." Subjective Date of service: 08/03/20 Principal diagnosis: Hyperkalemia, end-stage renal disease, vomiting Interval history: Patient seen lying in bed. Perm-cath removed this morning. Objective - Vital Signs Vital signs: Vital Signs - 12hr 08/03/20 08/03/20 08/03/20 04:15 06:00 07:30 Temperature 98.8 F 98.8 F Pulse Rate 77 77 76 Respiratory 16 18 Rate Blood Pressure 142/78 Blood Pressure 153/86 [Left] O2 Sat by Pulse 94 Oximetry - General Appearance General appearance: well-developed, fatigue EENT: ATNC, PERRL Neck: no JVD, supple Respiratory: Present: Decreased Breath Sounds Cardiology: S1S2 Gastrointestinal: normoactive bowel sounds Integumentary: warm and dry Neurologic: alert and oriented x3 Musculoskeletal: other (No edema) - Lab 08/01/20 06:32 08/01/20 06:32 Most recent lab results Calcium 7.5 mg/dL (8.4-10.2) L 08/01/20 06:32 Medications & Allergies - Medications Allergies/Adverse Reactions: Allergies No Known Allergies Allergy (Verified 07/20/20 15:05) Home Medications: Home Medications Medication Instructions Recorded Confirmed Last Taken Type Albuterol Sulfate [Albuterol 0.63% 0.63 mg IH Q4HR PRN #50 04/17/20 07/30/20 05/30/20 Rx NEBS] Lispro Insulin [HumaLOG] 5 unit SQ AC #1 vial 06/07/20 09/19/20 08/05/20 Rx Apixaban [Eliquis] 1 tab PO BID #60 tablet 07/17/20 07/30/20 07/22/20 08:00 Rx Insulin Glargine [Lantus VIAL] 10 units SUB-Q QHS units 07/17/20 07/30/20 07/21/20 20:00 Rx Metoclopramide [Reglan TAB] 5 mg PO ACHS PRN #120 tablet 07/17/20 07/30/20 07/22/20 08:00 Rx Pantoprazole [Protonix TAB] 40 mg PO DAILY #60 tablet 07/17/20 07/30/20 07/22/20 08:00 Rx amLODIPine 10 mg PO DAILY #30 tablet 07/17/20 07/30/20 07/22/20 08:00 Rx carvediloL [Coreg] 25 mg PO BID 30 Days #60 tablet 07/17/20 07/30/20 07/22/20 08:00 Rx cloNIDine [Catapres] 0.1 mg PO BID #60 tablet 07/17/20 07/30/20 07/22/20 08:00 Rx hydrALAZINE [Apresoline TAB] 100 mg PO Q8HR #90 tab 07/17/20 07/30/20 07/22/20 08:00 Rx Active Medications: Generic Name Dose Route Start Last Admin Trade Name Freq PRN Reason Stop Dose Admin Acetaminophen 650 mg 07/30/20 00:41 08/01/20 13:44 Tylenol PO 650 mg Q4H PRN Administration Pain MILD(1-3)/Fever >100.5/LANZA Albuterol 0.63 mg 07/30/20 07:01 Proventil IH Q4HRT PRN Shortness Of Breath Amlodipine Besylate 10 mg 07/30/20 10:00 08/03/20 11:03 Amlodipine PO 10 mg DAILY KESHIA Administration Apixaban 5 mg 07/30/20 10:00 08/03/20 11:04 Eliquis PO 5 mg BID KESHIA Administration Protocol Carvedilol 25 mg 07/30/20 08:00 08/03/20 11:08 Coreg PO 25 mg BID@0800,1700 KESHIA Administration Clonidine HCl 0.1 mg 07/30/20 10:00 08/03/20 11:03 Catapres PO 0.1 mg BID KESHIA Administration Dextrose 0 ml 07/30/20 00:41 08/01/20 21:31 D50w (25gm) Syringe IV 50 ml Q30MIN PRN Administration Hypoglycemia Protocol Epoetin Wale 20,000 unit 08/01/20 14:40 Procrit IV BRENDAN PRN hemodialysis Hydralazine HCl 100 mg 07/30/20 14:00 08/03/20 06:04 Apresoline PO 100 mg Q8HR KESHIA Administration Sodium Chloride 100 mls @ 999 mls/hr 08/01/20 09:00 Nacl 0.9% IV BRENDAN PRN Hypotension Insulin Human Lispro 0 unit 07/30/20 07:30 08/03/20 12:32 Humalog SUB-Q Not Given ACHS KESHIA Protocol Magnesium Hydroxide 30 ml 07/30/20 00:41 Milk Of Magnesia PO Q4H PRN Constipation Ondansetron HCl 4 mg 07/30/20 00:41 07/30/20 22:01 Zofran IV 4 mg Q8H PRN Administration Nausea And Vomiting Pantoprazole Sodium 40 mg 07/30/20 22:00 08/02/20 22:42 Protonix PO 40 mg QHS KESHIA Administration Sertraline HCl 50 mg 07/30/20 12:00 08/03/20 11:04 Zoloft PO 50 mg DAILY KESHIA Administration Sodium Chloride 10 ml 07/30/20 10:00 08/03/20 11:04 Sodium Chloride Flush Syringe 10 Ml IV 10 ml BID KESHIA Administration Sodium Chloride 10 ml 07/30/20 00:41 Sodium Chloride Flush Syringe 10 Ml IV PRN PRN LINE FLUSH
--- NOTE | 2020-08-03 15:23 | Progress Note ---
Assessment and Plan Cultures: Blood culture 07/30/2020 MRSA 3 of 4 bottles. Urine culture 07/29/2020 ESBL E coli. Blood culture 07/31/2020 Staph aureus 3 of 4 bottles Blood culture 08/02/2020 no growth today Assessment: 34 years old male with history of end-stage renal disease on hemodialysis via left IJ PermCath, noncompliance, hypertension, diabetes mellitus, gastric ulcer, recurrent ulcerative esophagitis, noncompliance, known to our service, recent ESBL Klebsiella bacteremia secondary to PermCath infectio, readmitted on 07/29/2020 due to nausea and vomiting for several days, patient missed dialysis twice: #Sepsis: present on admission with fever, leukocytosis, tachycardia, leukocytosis; source MRSA bacteremia/ESBL E coli UTI. #MRSA bacteremia: likely secondary to hemodialysis access infection. Persistent bacteremia. Patient missed 3 hemodialysis sections, dressing was no changed for almost 10 days. Left IJ hemodialysis catheter removed. Transthoracic echo no evidence of vegetation. #ESBL E. coli UTI: pt makes urine. Urine culture grew E. coli UTI. Treated with ertapenem x3 days #History of Recent ESBL Klebsiella bacteremia: Had right IJ PermCath removal on 06/24/2020 with resolution of bacteremia. Got about 6 days of IV Meropenem via midline after that but his line fell out 6 days post discharge. He never contacted our office, states he came to the ER here (no record of this in the EMR) and went home. He has been doing well without abx for more than 1 week. Given his issues with non compliance and no evidence of sepsis, I would not restart IV abx. More importantly, he had source control during previous admission. #Diabetes mellitus: Uncontrolled. #Anemia: Chronic. #Hyperkalemia: Patient missed hemodialysis. #Hypertension: Uncontrolled. Better. #ESRD on HD via left chest hemodialysis access #Noncompliance Recs: -Okay to reevaluate his right brachiobasilic AV fistula and elevation of the fistula from an ID standpoint, blood cultures are now negative -Psych consult given depressive mood and multiple readmissions/non compliance -Follow-up repeat blood cultures -Continue vancomycin with PK consult -Education about non compliance -Anticipate to discharge on vancomycin IV for 4 weeks. Guarded prognosis Will follow. Chloe Fitch MD Infectious Diseases Resource Coordinator [facility] [phone] Subjective Date of service: 08/03/20 Principal diagnosis: Hyperkalemia, end-stage renal disease, vomiting Objective - Constitutional Vitals: Vital Signs Temp Pulse Resp BP Pulse Ox 98.6 F 76 18 139/67 93 08/03/20 11:05 08/03/20 13:00 08/03/20 11:05 08/03/20 11:05 08/03/20 11:05 Temperature -Last 24 Hours Temperature 98.6 F Temperature 98.8 F Temperature 98.8 F Temperature 99.1 F Temperature 98.9 F Temperature 98.1 F - Labs CBC & Chem 7: 08/01/20 06:32 08/01/20 06:32 Labs: Abnormal lab results 08/02/20 08/02/20 08/03/20 Range/Units 15:57 21:30 08:03 POC Glucose 132 H 186 H 204 H (70-105) 08/03/20 Range/Units 11:19 POC Glucose 195 H (70-105)
--- NOTE | 2020-08-03 18:18 | Progress Note ---
Assessment and Plan Assessment and plan: --Severe sepsis ; secondary to MRSA bacteremia Current Visit: Yes Status: Chronic Plan to address problem: Left IJ permacath removed by vascular per ID recommendations ID recommend long-term vancomycin for 4 wks --Severe sepsis ; secondary to UTI : POA Current Visit: Yes Status: Chronic Plan to address problem: Fever, leukocytosis, positive urine cultures ESBL s/p ertapenem,x3days, contact isolation, ID following --Hyperkalemia Current Visit: Yes Status: Acute . Plan to address problem: Improved to normal -- End-stage renal disease needing dialysis Current Visit: Yes Status: Chronic Plan to address problem: On hemodialysis , ID recommended to remove HD catheter s/p removal of left IJ permacath [due to MRSA Bacteremia] --Anemia; Hb 7.0 Current Visit: Yes Status: Chronic Plan to address problem: Multifactorial , anemia of chronic disease Secondary to erosive esophagitis , transfuse 1 unit of PRBC during dialysis Closely monitor H&H, transfuse additional PRBC as needed Procrit during dialysis --Erosive esophagitis Current Visit: Yes Status: Acute Plan to address problem: IV Protonix, GI consult if needed -- Hypertensive urgency/POA Current Visit: Yes Status: Acute Plan to address problem: Blood pressure moderate control Continue current antihypertensives and PRN medications --Gastroparesis Current Visit: Yes Status: Acute Plan to address problem: Symptomatic treatment Antiemetics, Reglan as needed. --Depression; Current Visit: Yes Status: Acute Plan to address problem: Denies suicidal thoughts or ideation Psych evaluation noted and appreciated Continue Zoloft --Medical noncompliance; Current Visit: Yes Status: Acute Plan to address problem: patient strongly counseled the importance of adhering to the treatment plan Adhere to medications diet follow-up visit hemodialysis Patient verbalized understanding -- DVT prophylaxis Current Visit: No Status: Acute Plan to address problem: On heparin and GI prophylaxis Protonix We will closely monitor the patient and adjust management as needed Patient is critically ill with severe sepsis, anemia Poor prognosis, Follow training consultant recommendations Plan of care reviewed with the patient and his nurse 08/02: Severe sepsis MRSA bacteremia, ID recommend HD catheter removal, vascular consulted Patient is on ertapenem 08/03; MRSA bacteremia, hemodialysis catheter removed, ID recommend long-term Vanco, ESBL UTI, contact isolation History Interval history: I have seen and examined the patient at the bedside Patient's chart and medications reviewed Patient is on isolation precautions secondary to ESBL Patient is alert and awake, depressed minimally communicative Vital signs reviewed Afebrile Hospitalist Physical - Constitutional Vitals: Temp Pulse Resp BP Pulse Ox 98.6 F 76 18 139/67 93 08/03/20 11:05 08/03/20 13:00 08/03/20 11:05 08/03/20 11:05 08/03/20 11:05 General appearance: Present: no acute distress, well-nourished - EENT Eyes: Present: PERRL, EOM intact - Neck Neck: Present: supple, normal ROM - Respiratory Respiratory effort: normal Respiratory: bilateral: diminished, negative: rales, rhonchi, wheezing - Cardiovascular Rhythm: regular Heart Sounds: Present: S1 & S2 - Extremities Extremities: no ischemia, No edema - Abdominal General gastrointestinal: soft, non-tender, non-distended, normal bowel sounds - Integumentary Integumentary: Present: clear, warm - Psychiatric Psychiatric: appropriate mood/affect, cooperative - Neurologic Neurologic: moves all extremities Results - Labs CBC & Chem 7: 08/01/20 06:32 08/01/20 06:32 Labs: Laboratory Last Values WBC 12.3 K/mm3 (4.5-11.0) H 08/01/20 06:32 RBC 2.92 M/mm3 (3.65-5.03) L 08/01/20 06:32 Hgb 7.0 gm/dl (11.8-15.2) L 08/01/20 06:32 Hct 22.6 % (35.5-45.6) L 08/01/20 06:32 MCV 77 fl (84-94) L 08/01/20 06:32 MCH 24 pg (28-32) L 08/01/20 06:32 MCHC 31 % (32-34) L 08/01/20 06:32 RDW 21.2 % (13.2-15.2) H 08/01/20 06:32 Plt Count 344 K/mm3 (140-440) 08/01/20 06:32 Lymph % (Auto) 6.6 % (13.4-35.0) L 08/01/20 06:32 Hamb[place] % (Auto) 9.6 % (0.0-7.3) H 08/01/20 06:32 Eos % (Auto) 0.5 % (0.0-4.3) 08/01/20 06:32 Baso % (Auto) 0.5 % (0.0-1.8) 08/01/20 06:32 Lymph # 0.8 K/mm3 (1.2-5.4) L 08/01/20 06:32 Hamblen # 1.2 K/mm3 (0.0-0.8) H 08/01/20 06:32 Eos # 0.1 K/mm3 (0.0-0.4) 08/01/20 06:32 Baso # 0.1 K/mm3 (0.0-0.1) 08/01/20 06:32 Add Manual Diff Complete 07/29/20 16:06 Total Counted 100 07/29/20 16:06 Seg Neutrophils % 82.8 % (40.0-70.0) H 08/01/20 06:32 Seg Neuts % (Manual) 89.0 % (40.0-70.0) H 07/29/20 16:06 Band Neutrophils % 0 % 07/29/20 16:06 Lymphocytes % (Manual) 6.0 % (13.4-35.0) L 07/29/20 16:06 Reactive Lymphs % (Man) 0 % 07/29/20 16:06 Monocytes % (Manual) 4.0 % (0.0-7.3) 07/29/20 16:06 Eosinophils % (Manual) 1.0 % (0.0-4.3) 07/29/20 16:06 Basophils % (Manual) 0 % (0.0-1.8) 07/29/20 16:06 Metamyelocytes % 0 % 07/29/20 16:06 Myelocytes % 0 % 07/29/20 16:06 Promyelocytes % 0 % 07/29/20 16:06 Blast Cells % 0 % 07/29/20 16:06 Nucleated RBC % Not Reportable 07/29/20 16:06 Seg Neutrophils # 10.2 K/mm3 (1.8-7.7) H 08/01/20 06:32 Seg Neutrophils # Man 18.6 K/mm3 (1.8-7.7) H 07/29/20 16:06 Band Neutrophils # 0.0 K/mm3 07/29/20 16:06 Lymphocytes # (Manual) 1.3 K/mm3 (1.2-5.4) 07/29/20 16:06 Abs React Lymphs (Man) 0.0 K/mm3 07/29/20 16:06 Monocytes # (Manual) 0.8 K/mm3 (0.0-0.8) 07/29/20 16:06 Eosinophils # (Manual) 0.2 K/mm3 (0.0-0.4) 07/29/20 16:06 Basophils # (Manual) 0.0 K/mm3 (0.0-0.1) 07/29/20 16:06 Metamyelocytes # 0.0 K/mm3 07/29/20 16:06 Myelocytes # 0.0 K/mm3 07/29/20 16:06 Promyelocytes # 0.0 K/mm3 07/29/20 16:06 Blast Cells # 0.0 K/mm3 07/29/20 16:06 WBC Morphology Not Reportable 07/29/20 16:06 Hypersegmented Neuts Not Reportable 07/29/20 16:06 Hyposegmented Neuts Not Reportable 07/29/20 16:06 Hypogranular Neuts Not Reportable 07/29/20 16:06 Smudge Cells Not Reportable 07/29/20 16:06 Toxic Granulation Not Reportable 07/29/20 16:06 Toxic Vacuolation Not Reportable 07/29/20 16:06 Dohle Bodies Not Reportable 07/29/20 16:06 Pelger-Huet Anomaly Not Reportable 07/29/20 16:06 Julio Cesar Rods Not Reportable 07/29/20 16:06 Platelet Estimate Not Reportable 07/29/20 16:06 Clumped Platelets Not Reportable 07/29/20 16:06 Plt Clumps, EDTA Not Reportable 07/29/20 16:06 Large Platelets Not Reportable 07/29/20 16:06 Giant Platelets Not Reportable 07/29/20 16:06 Platelet Satelliting Not Reportable 07/29/20 16:06 Plt Morphology Comment Not Reportable 07/29/20 16:06 RBC Morphology Not Reportable 07/29/20 16:06 Dimorphic RBCs Not Reportable 07/29/20 16:06 Polychromasia Not Reportable 07/29/20 16:06 Hypochromasia 1+ 07/29/20 16:06 Poikilocytosis Not Reportable 07/29/20 16:06 Anisocytosis 1+ 07/29/20 16:06 Microcytosis Few 07/29/20 16:06 Macrocytosis Not Reportable 07/29/20 16:06 Spherocytes Not Reportable 07/29/20 16:06 Pappenheimer Bodies Not Reportable 07/29/20 16:06 Sickle Cells Not Reportable 07/29/20 16:06 Target Cells Not Reportable 07/29/20 16:06 Tear Drop Cells Not Reportable 07/29/20 16:06 Ovalocytes Not Reportable 07/29/20 16:06 Helmet Cells Not Reportable 07/29/20 16:06 Pak-Lafferty Bodies Not Reportable 07/29/20 16:06 Armona Rings Not Reportable 07/29/20 16:06 Olive Cells Not Reportable 07/29/20 16:06 Bite Cells Not Reportable 07/29/20 16:06 Crenated Cell Not Reportable 07/29/20 16:06 Elliptocytes Not Reportable 07/29/20 16:06 Acanthocytes (Spur) Not Reportable 07/29/20 16:06 Rouleaux Not Reportable 07/29/20 16:06 Hemoglobin C Crystals Not Reportable 07/29/20 16:06 Schistocytes Not Reportable 07/29/20 16:06 Malaria parasites Not Reportable 07/29/20 16:06 David Bodies Not Reportable 07/29/20 16:06 Hem Pathologist Commnt No 07/29/20 16:06 PT 22.3 Sec. (12.2-14.9) H 07/31/20 05:36 INR 1.91 (0.87-1.13) H 07/31/20 05:36 Sodium 137 mmol/L (137-145) 08/01/20 06:32 Potassium 5.1 mmol/L (3.6-5.0) H 08/01/20 06:32 Chloride 93.8 mmol/L (98-107) L 08/01/20 06:32 Carbon Dioxide 23 mmol/L (22-30) 08/01/20 06:32 Anion Gap 25 mmol/L 08/01/20 06:32 BUN 62 mg/dL (9-20) H 08/01/20 06:32 Creatinine 11.4 mg/dL (0.8-1.3) H 08/01/20 06:32 Estimated GFR 6 ml/min 08/01/20 06:32 BUN/Creatinine Ratio 5 % 08/01/20 06:32 Glucose 217 mg/dL (75-100) H 08/01/20 06:32 POC Glucose 184 (70-105) H 08/03/20 17:08 Calcium 7.5 mg/dL (8.4-10.2) L 08/01/20 06:32 Urine Color Yellow (Yellow) 07/29/20 Unknown Urine Turbidity Slightly-cloudy (Clear) 07/29/20 Unknown Urine pH 6.0 (5.0-7.0) 07/29/20 Unknown Ur Specific Horton 1.024 (1.003-1.030) 07/29/20 Unknown Urine Protein >500 mg/dL (Negative) 07/29/20 Unknown Urine Glucose (UA) >=500 mg/dL (Negative) 07/29/20 Unknown Urine Ketones Tr mg/dL (Negative) 07/29/20 Unknown Urine Blood Sm (Negative) 07/29/20 Unknown Urine Nitrite Neg (Negative) 07/29/20 Unknown Urine Bilirubin Neg (Negative) 07/29/20 Unknown Urine Urobilinogen < 2.0 mg/dL (<2.0) 07/29/20 Unknown Ur Leukocyte Esterase Tr (Negative) 07/29/20 Unknown Urine WBC (Auto) 34.0 /HPF (0.0-6.0) H 07/29/20 Unknown Urine RBC (Auto) 9.0 /HPF (0.0-6.0) 07/29/20 Unknown U Epithel Cells (Auto) 1.0 /HPF (0-13.0) 07/29/20 Unknown Urine Bacteria (Auto) 1+ /HPF (Negative) 07/29/20 Unknown Urine Yeast (Budding) 1+ /HPF 07/29/20 Unknown Random Vancomycin 6.1 ug/mL (0-40.0) 08/02/20 07:22 Salicylates < 0.3 mg/dL (2.8-20.0) L 07/29/20 16:06 Urine Opiates Screen Presumptive negative 07/29/20 Unknown Urine Methadone Screen Presumptive negative 07/29/20 Unknown Acetaminophen 5.0 ug/mL (10.0-30.0) L 07/29/20 16:06 Ur Barbiturates Screen Presumptive negative 07/29/20 Unknown Ur Phencyclidine Scrn Presumptive negative 07/29/20 Unknown Ur Amphetamines Screen Presumptive negative 07/29/20 Unknown U Benzodiazepines Scrn Presumptive negative 07/29/20 Unknown Urine Cocaine Screen Presumptive negative 07/29/20 Unknown U Marijuana (THC) Screen Presumptive negative 07/29/20 Unknown Drugs of Abuse Note Disclamer 07/29/20 Unknown Plasma/Serum Alcohol < 0.01 % (0-0.07) 07/29/20 16:06 Hepatitis A IgM Ab Non-reactive (NonReactive) 07/30/20 05:31 Hep Bs Antigen Non-reactive (Negative) 07/30/20 05:31 Hep B Core IgM Ab Non-reactive (NonReactive) 07/30/20 05:31 Hepatitis C Antibody Non-reactive (NonReactive) 07/30/20 05:31 Blood Type O POSITIVE 07/31/20 20:30 Antibody Screen Negative 07/31/20 20:30 Crossmatch See Detail 07/31/20 20:30 Microbiology: Microbiology 08/02/20 14:18 Peripheral/Venous Blood Culture - Preliminary Staphylococcus Aureus 07/31/20 15:42 Peripheral/Venous Blood Culture - Final Methicillin Resist S. Aureus 08/02/20 14:18 Peripheral/Venous Blood Culture - Preliminary Staphylococcus Aureus 07/30/20 05:31 Peripheral/Venous Blood Culture - Preliminary Methicillin Resist S. Aureus 07/31/20 15:42 Peripheral/Venous Blood Culture - Final Methicillin Resist S. Aureus - Diagnostic Impressions Diagnostic Impressions: Echocardiogram 08/01/20 20:32 Transthoracic Echocardiogram Indication: Endocarditis BP: 124/68 HR: 83 Conclusions *Mild concentric left ventricular hypertrophy is observed. *Global left ventricular systolic function is normal. *The estimated ejection fraction is 50-55%. *Abnormal left ventricular diastolic filling is observed, consistent with impaired relaxation. Findings Procedure Info: The study quality is fair. Left Ventricle: The left ventricular chamber size is normal. Mild concentric left ventricular hypertrophy is observed. Global left ventricular systolic function is normal. The estimated ejection fraction is 50-55%. Abnormal left ventricular diastolic filling is observed, consistent with impaired relaxation. Left Atrium: The left atrial chamber size is normal. Right Ventricle: The right ventricular cavity size is normal. Right Atrium: The right atrial cavity size is normal. Aortic Valve: The aortic valve is trileaflet. There is no evidence of aortic regurgitation. There is no evidence of aortic stenosis. Mitral Valve: The mitral valve leaflets appear normal. There is trace of mitral regurgitation. Tricuspid Valve: There is tricuspid annular calcification. The tricuspid valve leaflets are normal. There is trace tricuspid regurgitation. Pulmonic Valve: The pulmonic valve appears normal. There is trace pulmonic regurgitation. Pericardium: A trivial pericardial effusion is visualized. Aorta: The aorta appears normal. Venous: The inferior vena cava is dilated. Measurements Chambers 2D Name Value Normal Range IVSd (2D) 1.33 cm (0.6 - 1.1) LVPWd (2D) 1.31 cm (0.6 - 1.1) LVIDd (2D) 5.03 cm (3.7 - 5.6) LVIDs (2D) 3.71 cm (2 - 3.8) LV FS (2D) 26.3 % - EF Teichholz (2D) 51.3 % - Ao root diameter (2D) 2.58 cm (2 - 3.7) Volumes/Mass Name Value Normal Range LA ESV SP 4CH (A/L) 68.16 ml - LA ESV SP 2CH (A/L) 71.81 ml - LA ESV BP (A/L) 72.16 ml - LA ESV BP (A/L) index 34.2 ml/m2 - LA ESV SP 4CH (MOD) 65.34 ml - LA ESV SP 2CH (MOD) 63.27 ml - LA ESV BP (MOD) 65.31 ml - LA ESV BP (MOD) index 30.95 ml/m2 - LV EDV SP 4CH (MOD) 185.13 ml - LV ESV SP 4CH (MOD) 79.24 ml - EF SP 4CH (MOD) 57.2 % - LV EDV SP 2CH (MOD) 191.64 ml - LV ESV SP 2CH (MOD) 112.9 ml - EF SP 2CH (MOD) 41.09 % - LV EDV BP 187.9 ml - LV ESV BP 100.66 ml - BP EF (MOD) 46.43 % - Diastolic/Systolic Function Name Value Normal Range MV E-wave Vmax 0.98 m/sec - MV deceleration time 279.48 msec - MV A-wave Vmax 0.99 m/sec - MV E:A ratio 0.99 ratio - Aortic Valve Name Value Normal Range AV Vmax 1.89 m/sec - AV VTI 32.14 cm - AV peak gradient 14.23 mmHg - AV mean gradient 7.6 mmHg - LVOT diameter 2.15 cm - LVOT Vmax 1.71 m/sec - LVOT VTI 28.31 cm - LVOT peak gradient 11.71 mmHg - LVOT mean gradient 5.52 mmHg - SV LVOT 102.46 ml - PRAVIN (continuity Vmax) 3.28 cm2 - PRAVIN (continuity VTI) 3.19 cm2 - Ascending Ao 2.59 cm - Tricuspid Valve Name Value Normal Range TR Vmax 2.67 m/sec - TR peak gradient 28 mmHg - RAP 5 mmHg - RVSP 33 mmHg - IVC diameter 2.17 cm (1.2 - 2.3) Pulmonic Valve/Qp:Qs Name Value Normal Range PV Vmax 1.4 m/sec - PV VTI 24.99 cm - PV peak gradient 7.83 mmHg - PV mean gradient 3.58 mmHg - NH end-diastolic Vmax 1.07 m/sec - RVOT Vmax 1.01 m/sec - RVOT VTI 17.18 cm - RVOT peak gradient 4.11 mmHg - Perez/IV: Voiding Method Urinal IV Catheter Type [Left Forearm INT / Saline Lock ] IV Catheter Type [Left INT / Saline Lock External Jugular] IV Catheter Type [Left Chest] VAS Cath IV Catheter Type [Left INT / Saline Lock Antecubital] Active Medications - Current Medications Current Medications: Generic Name Dose Route Start Last Admin Trade Name Freq PRN Reason Stop Dose Admin Acetaminophen 650 mg 07/30/20 00:41 08/01/20 13:44 Tylenol PO 650 mg Q4H PRN Administration Pain MILD(1-3)/Fever >100.5/LANZA Albuterol 0.63 mg 07/30/20 07:01 Proventil IH Q4HRT PRN Shortness Of Breath Amlodipine Besylate 10 mg 07/30/20 10:00 08/03/20 11:03 Amlodipine PO 10 mg DAILY KESHIA Administration Apixaban 5 mg 07/30/20 10:00 08/03/20 11:04 Eliquis PO 5 mg BID KESHIA Administration Protocol Carvedilol 25 mg 07/30/20 08:00 08/03/20 17:47 Coreg PO 25 mg BID@0800,1700 KESHIA Administration Clonidine HCl 0.1 mg 07/30/20 10:00 08/03/20 11:03 Catapres PO 0.1 mg BID KESHIA Administration Dextrose 0 ml 07/30/20 00:41 08/01/20 21:31 D50w (25gm) Syringe IV 50 ml Q30MIN PRN Administration Hypoglycemia Protocol Epoetin Wale 20,000 unit 08/01/20 14:40 Procrit IV BRENDAN PRN hemodialysis Hydralazine HCl 100 mg 07/30/20 14:00 08/03/20 14:09 Apresoline PO 100 mg Q8HR KESHIA Administration Sodium Chloride 100 mls @ 999 mls/hr 08/01/20 09:00 Nacl 0.9% IV BRENDAN PRN Hypotension Insulin Human Lispro 0 unit 07/30/20 07:30 08/03/20 17:48 Humalog SUB-Q 2 unit ACHS KESHIA Administration Protocol Magnesium Hydroxide 30 ml 07/30/20 00:41 Milk Of Magnesia PO Q4H PRN Constipation Ondansetron HCl 4 mg 07/30/20 00:41 07/30/20 22:01 Zofran IV 4 mg Q8H PRN Administration Nausea And Vomiting Pantoprazole Sodium 40 mg 07/30/20 22:00 08/02/20 22:42 Protonix PO 40 mg QHS KESHIA Administration Sertraline HCl 50 mg 07/30/20 12:00 08/03/20 11:04 Zoloft PO 50 mg DAILY KESHIA Administration Sodium Chloride 10 ml 07/30/20 10:00 08/03/20 11:04 Sodium Chloride Flush Syringe 10 Ml IV 10 ml BID KESHIA Administration Sodium Chloride 10 ml 07/30/20 00:41 Sodium Chloride Flush Syringe 10 Ml IV PRN PRN LINE FLUSH Nutrition/Malnutrition Assess - Dietary Evaluation Nutrition/Malnutrition Findings: Nutrition Notes Start: 07/30/20 10:57 Freq: Status: Active Protocol: Document 08/02/20 13:03 AL (Rec: 08/02/20 13:35 AL [id number]) Co-Sign 08/02/20 13:03 LM Nutrition Notes Initial or Follow up Reassessment Current Diagnosis CKD (stage V CKD),Diabetes, Hypertension Other Pertinent Diagnosis ESRD - HD, Abd pain, hx of erosive esophagitis, gastroparesis Current Diet Renal/Consistent CHO Labs/Tests K 5.1 Glu 217 Pertinent Medications Reviewed Height 6 ft 3 in Weight 86.4 kg Usual Body Weight 93.6 kg [facility] Body Weight (kg) 89.09 BMI 23.8 Intake Prior to Admission Fair Weight Status Appropriate Subjective/Other Information Follow up for intakes and diet education. Pt reports having an okay appetite today. Pt reports eating 100% of his breakfast. Pt declined further diet education. Percent of energy/protein needs met: 65%/56% Burn Absent Trauma Absent Current % PO Good (75-100%) Minimum of two criteria No Interpretation of Weight Loss (severe) >2% in 1 week #2 Nutrition Diagnosis Food and nutrition-related knowledge deficit As Evidenced by Signs and Symptoms Pt had no further questions Diagnosis Progress(for reassessment Resolved documentation) #1 Nutrition Diagnosis Inadequate oral intake As Evidenced by Signs and Symptoms Pt ate 100% of breakfast with no N/V. Diagnosis Progress(for reassessment Improved documentation) Is patient on ventilator? No Is Patient Ambulatory and/or Out of Bed Yes REE-([facility]-ambulatory/OOB) [ [id number] [id number]] Calculation Used for Recommendations [facility] Additional Notes Pro: >105g (>1.2g/kg) Fluid: 1ml/kcal or per MD Nutrition Intervention Change Diet Order: continue current Goal #1 Meet at least 80% of protein and energy needs via PO intakes Anticipated Discharge Needs: Renal, Consistent CHO Follow-Up By: 08/04/20 Additional Comments FU for stable intakes
[2020-08-03] MEDS: PANTOPRAZOLE 40 MG TAB PO SCH (22:33)
[2020-08-04] MEDS: hydrALAZINE 100 MG TAB PO SCH ×3 (06:36→21:58)
[2020-08-04 08:11] LABS: Hematocrit 25.7 % (35.5-45.6); Hemoglobin 8.2 gm/dl (11.8-15.2); Mean Corpuscular HGB Conc 32 % (32-34); Mean Corpuscular Volume 77 fl (84-94); Platelet Count 422 K/mm3 (140-440); Red Blood Count 3.32 M/mm3 (3.65-5.03); Red Cell Distribution Width 19.9 % (13.2-15.2)
[2020-08-04] MEDS: INSULIN LISPRO 100 UNIT/ML VIAL 3 mL SUB-Q SCH ×4 (08:56→21:59)
[2020-08-04 09:28] LABS: Anisocytosis Few; Basophils % (Manual) 0 % (0.0-1.8); Hypochromasia 1+; Myelocytes # (Manual) 0.1 K/mm3; Platelet Estimate Consistent w Auto; Total Cells Counted 100
[2020-08-04] MEDS: amLODIPine 10 MG TAB PO SCH (10:55)
[2020-08-04] MEDS: cloNIDine 0.1 MG TAB PO SCH ×2 (10:55→21:58)
[2020-08-04] MEDS: SERTRALINE 50 MG TAB PO SCH (10:55)
[2020-08-04] MEDS: carvediloL 25 MG TAB PO SCH ×2 (10:56→21:13)
[2020-08-04] MEDS: APIXABAN 5 MG TAB PO SCH ×2 (10:58→21:58)
--- NOTE | 2020-08-04 16:01 | Progress Note ---
Assessment and Plan Assessment: ESRD on Hemodialysis: Hyperkalemia: Abdominal Pain: HTN: Possible UTI: Depression: ACD due to ESRD: Plan: -S/P perm-cath removal by Vascular Surgeon -Dr. Benítez on 08/03/20 for line holiday due to MRSA Bacteremia -Discussed with mother and patient today that a new perm-catheter will be placed once infection is cleared and that Infectious Disease doctor and Vascular surgeon are working closely together to coordinate this. Patient will continued to be monitored daily. Patient currently remains stable off HD. -Fluid restriction of 1 liter per day -Anemia-On Epogen 20,000 units with HD -Renally dose medications -Strict I/Os monitoring -Obtain daily weights -Assess dialysis needs daily Subjective Date of service: 08/04/20 Principal diagnosis: Hyperkalemia, end-stage renal disease, vomiting Interval history: Patient seen lying in bed. Spoke to his mother over the phone in front of patient to discuss why his perm-cath was removed and Vascular surgeon plans for replacement when cleared by ID. Mother and patient voiced understanding. Objective - Vital Signs Vital signs: Vital Signs - 12hr 08/04/20 08/04/20 08/04/20 05:03 07:45 10:00 Temperature 98.3 F 99.9 F H Pulse Rate 81 79 Respiratory 20 18 Rate Blood Pressure 137/74 152/83 O2 Sat by Pulse 95 95 97 Oximetry - General Appearance General appearance: well-developed, fatigue EENT: ATNC, PERRL, hearing intact, vision intact Neck: no JVD, supple Respiratory: Present: Decreased Breath Sounds Cardiology: S1S2 Gastrointestinal: normoactive bowel sounds Integumentary: warm and dry Neurologic: alert and oriented x3 Musculoskeletal: other (No edema) - Lab 08/04/20 07:18 08/04/20 07:18 Most recent lab results Calcium 9.0 mg/dL (8.4-10.2) D 08/04/20 07:18 Medications & Allergies - Medications Allergies/Adverse Reactions: Allergies No Known Allergies Allergy (Verified 07/20/20 15:05) Home Medications: Home Medications Medication Instructions Recorded Confirmed Last Taken Type Albuterol Sulfate [Albuterol 0.63% 0.63 mg IH Q4HR PRN #50 04/17/20 07/30/20 05/30/20 Rx NEBS] Lispro Insulin [HumaLOG] 5 unit SQ AC #1 vial 06/07/20 09/19/20 08/05/20 Rx Apixaban [Eliquis] 1 tab PO BID #60 tablet 07/17/20 07/30/20 07/22/20 08:00 Rx Insulin Glargine [Lantus VIAL] 10 units SUB-Q QHS units 07/17/20 07/30/20 07/21/20 20:00 Rx Metoclopramide [Reglan TAB] 5 mg PO ACHS PRN #120 tablet 07/17/20 07/30/20 07/22/20 08:00 Rx Pantoprazole [Protonix TAB] 40 mg PO DAILY #60 tablet 07/17/20 07/30/20 07/22/20 08:00 Rx amLODIPine 10 mg PO DAILY #30 tablet 07/17/20 07/30/20 07/22/20 08:00 Rx carvediloL [Coreg] 25 mg PO BID 30 Days #60 tablet 07/17/20 07/30/20 07/22/20 08:00 Rx cloNIDine [Catapres] 0.1 mg PO BID #60 tablet 07/17/20 07/30/20 07/22/20 08:00 Rx hydrALAZINE [Apresoline TAB] 100 mg PO Q8HR #90 tab 07/17/20 07/30/20 07/22/20 08:00 Rx Active Medications: Generic Name Dose Route Start Last Admin Trade Name Freq PRN Reason Stop Dose Admin Acetaminophen 650 mg 07/30/20 00:41 08/01/20 13:44 Tylenol PO 650 mg Q4H PRN Administration Pain MILD(1-3)/Fever >100.5/LANZA Albuterol 0.63 mg 07/30/20 07:01 Proventil IH Q4HRT PRN Shortness Of Breath Amlodipine Besylate 10 mg 07/30/20 10:00 08/04/20 10:55 Amlodipine PO 10 mg DAILY KESHIA Administration Apixaban 5 mg 07/30/20 10:00 08/04/20 10:58 Eliquis PO 5 mg BID KESHIA Administration Protocol Carvedilol 25 mg 07/30/20 08:00 08/04/20 10:56 Coreg PO 25 mg BID@0800,1700 KESHIA Administration Clonidine HCl 0.1 mg 07/30/20 10:00 08/04/20 10:55 Catapres PO 0.1 mg BID KESHIA Administration Dextrose 0 ml 07/30/20 00:41 08/01/20 21:31 D50w (25gm) Syringe IV 50 ml Q30MIN PRN Administration Hypoglycemia Protocol Epoetin Wale 20,000 unit 08/01/20 14:40 Procrit IV BRENDAN PRN hemodialysis Hydralazine HCl 100 mg 07/30/20 14:00 08/04/20 06:36 Apresoline PO 100 mg Q8HR KESHIA Administration Sodium Chloride 100 mls @ 999 mls/hr 08/01/20 09:00 Nacl 0.9% IV BRENDAN PRN Hypotension Insulin Human Lispro 0 unit 07/30/20 07:30 08/04/20 08:56 Humalog SUB-Q Not Given ACHS KESHIA Protocol Magnesium Hydroxide 30 ml 07/30/20 00:41 Milk Of Magnesia PO Q4H PRN Constipation Ondansetron HCl 4 mg 07/30/20 00:41 07/30/20 22:01 Zofran IV 4 mg Q8H PRN Administration Nausea And Vomiting Pantoprazole Sodium 40 mg 07/30/20 22:00 08/03/20 22:33 Protonix PO 40 mg QHS KESHIA Administration Sertraline HCl 50 mg 07/30/20 12:00 08/04/20 10:55 Zoloft PO 50 mg DAILY KESHIA Administration Sodium Chloride 10 ml 07/30/20 10:00 08/03/20 22:34 Sodium Chloride Flush Syringe 10 Ml IV 10 ml BID KESHIA Administration Sodium Chloride 10 ml 07/30/20 00:41 Sodium Chloride Flush Syringe 10 Ml IV PRN PRN LINE FLUSH
--- NOTE | 2020-08-04 19:50 | Progress Note ---
Assessment and Plan Assessment and plan: --Severe sepsis ; secondary to MRSA bacteremia Current Visit: Yes Status: Chronic Plan to address problem: Left IJ permacath removed by vascular per ID recommendations ID recommend long-term vancomycin for 4 wks TTE negative for vegetation --Severe sepsis ; secondary to UTI : POA Current Visit: Yes Status: Chronic Plan to address problem: Fever, leukocytosis, positive urine cultures ESBL s/p ertapenem,x3days, contact isolation, ID following --Hyperkalemia Current Visit: Yes Status: Acute . Plan to address problem: Improved to normal -- End-stage renal disease needing dialysis Current Visit: Yes Status: Chronic Plan to address problem: On hemodialysis , MRSA sepsis ID recommended to remove HD catheter s/p removal of left IJ permacath [due to MRSA Bacteremia] --Anemia; Hb 7.0 Current Visit: Yes Status: Chronic Plan to address problem: Multifactorial , anemia of chronic disease Secondary to erosive esophagitis , transfuse 1 unit of PRBC during dialysis Closely monitor H&H, transfuse additional PRBC as needed Procrit during dialysis --Erosive esophagitis Current Visit: Yes Status: Acute Plan to address problem: IV Protonix, GI consult if needed -- Hypertensive urgency/POA Current Visit: Yes Status: Acute Plan to address problem: Blood pressure moderate control Continue current antihypertensives and PRN medications --Gastroparesis Current Visit: Yes Status: Acute Plan to address problem: Symptomatic treatment Antiemetics, Reglan as needed. --Depression; Current Visit: Yes Status: Acute Plan to address problem: Denies suicidal thoughts or ideation Psych following, continue Zoloft --Medical noncompliance; Current Visit: Yes Status: Acute Plan to address problem: patient strongly counseled the importance of adhering to the treatment plan Adhere to medications diet follow-up visit hemodialysis Patient verbalized understanding -- DVT prophylaxis Current Visit: No Status: Acute Plan to address problem: On heparin and GI prophylaxis Protonix We will closely monitor the patient and adjust management as needed Patient is critically ill with severe sepsis, anemia Poor prognosis, Follow oim consultant recommendations Plan of care reviewed with the patient and his nurse 08/02: Severe sepsis MRSA bacteremia, ID recommend HD catheter removal, vascular consulted Patient is on ertapenem 08/03; MRSA bacteremia, hemodialysis catheter removed, ID recommend long-term Vanco, ESBL UTI, contact isolation 08/04; HD catheter is out, patient did not receive hemodialysis last 3 days, vascular and nephrology closely monitoring ID recommend long-term vancomycin for 4 weeks, TTE negative for vegetation Closely monitor the patient and adjust management as needed Plan of care reviewed with the patient and his nurse History Interval history: Have seen and examined the patient in his room Patient's chart and medications reviewed Patient has no new complaints Vital signs noted Hospitalist Physical - Constitutional Vitals: Temp Pulse Resp BP Pulse Ox 98.7 F 68 19 116/60 94 08/04/20 16:08 08/04/20 16:08 08/04/20 16:08 08/04/20 16:08 08/04/20 16:08 General appearance: Present: no acute distress, well-nourished, other (Chronically ill looking, afebrile) - EENT Eyes: Present: PERRL, EOM intact - Neck Neck: Present: supple, normal ROM - Respiratory Respiratory effort: normal Respiratory: bilateral: diminished, negative: rales, rhonchi, wheezing - Cardiovascular Rhythm: regular Heart Sounds: Present: S1 & S2 - Extremities Extremities: no ischemia, No edema - Abdominal General gastrointestinal: soft, non-tender, non-distended, normal bowel sounds - Integumentary Integumentary: Present: clear, warm - Psychiatric Psychiatric: appropriate mood/affect, cooperative - Neurologic Neurologic: CNII-XII intact, moves all extremities Results - Labs CBC & Chem 7: 08/04/20 07:18 08/04/20 07:18 Labs: Laboratory Last Values WBC 10.1 K/mm3 (4.5-11.0) 08/04/20 07:18 RBC 3.32 M/mm3 (3.65-5.03) L 08/04/20 07:18 Hgb 8.2 gm/dl (11.8-15.2) L 08/04/20 07:18 Hct 25.7 % (35.5-45.6) L 08/04/20 07:18 MCV 77 fl (84-94) L 08/04/20 07:18 MCH 25 pg (28-32) L 08/04/20 07:18 MCHC 32 % (32-34) 08/04/20 07:18 RDW 19.9 % (13.2-15.2) H 08/04/20 07:18 Plt Count 422 K/mm3 (140-440) 08/04/20 07:18 Lymph % (Auto) 6.6 % (13.4-35.0) L 08/01/20 06:32 Emm[place] % (Auto) 9.6 % (0.0-7.3) H 08/01/20 06:32 Eos % (Auto) 0.5 % (0.0-4.3) 08/01/20 06:32 Baso % (Auto) 0.5 % (0.0-1.8) 08/01/20 06:32 Lymph # 0.8 K/mm3 (1.2-5.4) L 08/01/20 06:32 Emmet # 1.2 K/mm3 (0.0-0.8) H 08/01/20 06:32 Eos # 0.1 K/mm3 (0.0-0.4) 08/01/20 06:32 Baso # 0.1 K/mm3 (0.0-0.1) 08/01/20 06:32 Seg Neutrophils % 82.8 % (40.0-70.0) H 08/01/20 06:32 Add Manual Diff Complete 08/04/20 07:18 Total Counted 100 08/04/20 07:18 Seg Neutrophils # 10.2 K/mm3 (1.8-7.7) H 08/01/20 06:32 Seg Neuts % (Manual) 70.0 % (40.0-70.0) 08/04/20 07:18 Band Neutrophils % 0 % 08/04/20 07:18 Lymphocytes % (Manual) 15.0 % (13.4-35.0) 08/04/20 07:18 Reactive Lymphs % (Man) 0 % 08/04/20 07:18 Monocytes % (Manual) 13.0 % (0.0-7.3) H 08/04/20 07:18 Eosinophils % (Manual) 1.0 % (0.0-4.3) 08/04/20 07:18 Basophils % (Manual) 0 % (0.0-1.8) 08/04/20 07:18 Metamyelocytes % 0 % 08/04/20 07:18 Myelocytes % 1.0 % 08/04/20 07:18 Promyelocytes % 0 % 08/04/20 07:18 Blast Cells % 0 % 08/04/20 07:18 Nucleated RBC % Not Reportable 08/04/20 07:18 Seg Neutrophils # Man 7.1 K/mm3 (1.8-7.7) 08/04/20 07:18 Band Neutrophils # 0.0 K/mm3 08/04/20 07:18 Lymphocytes # (Manual) 1.5 K/mm3 (1.2-5.4) 08/04/20 07:18 Abs React Lymphs (Man) 0.0 K/mm3 08/04/20 07:18 Monocytes # (Manual) 1.3 K/mm3 (0.0-0.8) H 08/04/20 07:18 Eosinophils # (Manual) 0.1 K/mm3 (0.0-0.4) 08/04/20 07:18 Basophils # (Manual) 0.0 K/mm3 (0.0-0.1) 08/04/20 07:18 Metamyelocytes # 0.0 K/mm3 08/04/20 07:18 Myelocytes # 0.1 K/mm3 08/04/20 07:18 Promyelocytes # 0.0 K/mm3 08/04/20 07:18 Blast Cells # 0.0 K/mm3 08/04/20 07:18 WBC Morphology Not Reportable 08/04/20 07:18 Hypersegmented Neuts Not Reportable 08/04/20 07:18 Hyposegmented Neuts Not Reportable 08/04/20 07:18 Hypogranular Neuts Not Reportable 08/04/20 07:18 Smudge Cells Not Reportable 08/04/20 07:18 Toxic Granulation Not Reportable 08/04/20 07:18 Toxic Vacuolation Not Reportable 08/04/20 07:18 Dohle Bodies Not Reportable 08/04/20 07:18 Pelger-Huet Anomaly Not Reportable 08/04/20 07:18 Julio Cesar Rods Not Reportable 08/04/20 07:18 Platelet Estimate Consistent w auto 08/04/20 07:18 Clumped Platelets Not Reportable 08/04/20 07:18 Plt Clumps, EDTA Not Reportable 08/04/20 07:18 Large Platelets Not Reportable 08/04/20 07:18 Giant Platelets Not Reportable 08/04/20 07:18 Platelet Satelliting Not Reportable 08/04/20 07:18 Plt Morphology Comment Not Reportable 08/04/20 07:18 RBC Morphology Not Reportable 08/04/20 07:18 Dimorphic RBCs Not Reportable 08/04/20 07:18 Polychromasia Not Reportable 08/04/20 07:18 Hypochromasia 1+ 08/04/20 07:18 Poikilocytosis Not Reportable 08/04/20 07:18 Anisocytosis Few 08/04/20 07:18 Microcytosis Not Reportable 08/04/20 07:18 Macrocytosis Not Reportable 08/04/20 07:18 Spherocytes Not Reportable 08/04/20 07:18 Pappenheimer Bodies Not Reportable 08/04/20 07:18 Sickle Cells Not Reportable 08/04/20 07:18 Target Cells Not Reportable 08/04/20 07:18 Tear Drop Cells Not Reportable 08/04/20 07:18 Ovalocytes Not Reportable 08/04/20 07:18 Helmet Cells Not Reportable 08/04/20 07:18 [place] Bodies Not Reportable 08/04/20 07:18 [place] Rings Not Reportable 08/04/20 07:18 Olive Cells Not Reportable 08/04/20 07:18 Bite Cells Not Reportable 08/04/20 07:18 Crenated Cell Not Reportable 08/04/20 07:18 Elliptocytes Not Reportable 08/04/20 07:18 Acanthocytes (Spur) Not Reportable 08/04/20 07:18 Rouleaux Not Reportable 08/04/20 07:18 Hemoglobin C Crystals Not Reportable 08/04/20 07:18 Schistocytes Not Reportable 08/04/20 07:18 Malaria parasites Not Reportable 08/04/20 07:18 David Bodies Not Reportable 08/04/20 07:18 Hem Pathologist Commnt No 08/04/20 07:18 PT 22.3 Sec. (12.2-14.9) H 07/31/20 05:36 INR 1.91 (0.87-1.13) H 07/31/20 05:36 Sodium 134 mmol/L (137-145) L 08/04/20 07:18 Potassium 4.7 mmol/L (3.6-5.0) 08/04/20 07:18 Chloride 92.7 mmol/L (98-107) L 08/04/20 07:18 Carbon Dioxide 22 mmol/L (22-30) 08/04/20 07:18 Anion Gap 24 mmol/L 08/04/20 07:18 BUN 65 mg/dL (9-20) H 08/04/20 07:18 Creatinine 11.8 mg/dL (0.8-1.3) H 08/04/20 07:18 Estimated GFR 6 ml/min 08/04/20 07:18 BUN/Creatinine Ratio 6 % 08/04/20 07:18 Glucose 148 mg/dL (75-100) H 08/04/20 07:18 POC Glucose 184 (70-105) H 08/04/20 16:23 Calcium 9.0 mg/dL (8.4-10.2) D 08/04/20 07:18 Urine Color Yellow (Yellow) 07/29/20 Unknown Urine Turbidity Slightly-cloudy (Clear) 07/29/20 Unknown Urine pH 6.0 (5.0-7.0) 07/29/20 Unknown Ur Specific [place] 1.024 (1.003-1.030) 07/29/20 Unknown Urine Protein >500 mg/dL (Negative) 07/29/20 Unknown Urine Glucose (UA) >=500 mg/dL (Negative) 07/29/20 Unknown Urine Ketones Tr mg/dL (Negative) 07/29/20 Unknown Urine Blood Sm (Negative) 07/29/20 Unknown Urine Nitrite Neg (Negative) 07/29/20 Unknown Urine Bilirubin Neg (Negative) 07/29/20 Unknown Urine Urobilinogen < 2.0 mg/dL (<2.0) 07/29/20 Unknown Ur Leukocyte Esterase Tr (Negative) 07/29/20 Unknown Urine WBC (Auto) 34.0 /HPF (0.0-6.0) H 07/29/20 Unknown Urine RBC (Auto) 9.0 /HPF (0.0-6.0) 07/29/20 Unknown U Epithel Cells (Auto) 1.0 /HPF (0-13.0) 07/29/20 Unknown Urine Bacteria (Auto) 1+ /HPF (Negative) 07/29/20 Unknown Urine Yeast (Budding) 1+ /HPF 07/29/20 Unknown Random Vancomycin 24.0 ug/mL (0-40.0) 08/04/20 07:18 Salicylates < 0.3 mg/dL (2.8-20.0) L 07/29/20 16:06 Urine Opiates Screen Presumptive negative 07/29/20 Unknown Urine Methadone Screen Presumptive negative 07/29/20 Unknown Acetaminophen 5.0 ug/mL (10.0-30.0) L 07/29/20 16:06 Ur Barbiturates Screen Presumptive negative 07/29/20 Unknown Ur Phencyclidine Scrn Presumptive negative 07/29/20 Unknown Ur Amphetamines Screen Presumptive negative 07/29/20 Unknown U Benzodiazepines Scrn Presumptive negative 07/29/20 Unknown Urine Cocaine Screen Presumptive negative 07/29/20 Unknown U Marijuana (THC) Screen Presumptive negative 07/29/20 Unknown Drugs of Abuse Note Disclamer 07/29/20 Unknown Plasma/Serum Alcohol < 0.01 % (0-0.07) 07/29/20 16:06 Hepatitis A IgM Ab Non-reactive (NonReactive) 07/30/20 05:31 Hep Bs Antigen Non-reactive (Negative) 07/30/20 05:31 Hep B Core IgM Ab Non-reactive (NonReactive) 07/30/20 05:31 Hepatitis C Antibody Non-reactive (NonReactive) 07/30/20 05:31 Blood Type O POSITIVE 07/31/20 20:30 Antibody Screen Negative 07/31/20 20:30 Crossmatch See Detail 07/31/20 20:30 Microbiology: Microbiology 08/02/20 14:18 Peripheral/Venous Blood Culture - Preliminary Methicillin Resist S. Aureus 08/02/20 14:18 Peripheral/Venous Blood Culture - Preliminary Methicillin Resist S. Aureus 07/30/20 05:31 Peripheral/Venous Blood Culture - Final Methicillin Resist S. Aureus 07/31/20 15:42 Peripheral/Venous Blood Culture - Final Methicillin Resist S. Aureus 07/31/20 15:42 Peripheral/Venous Blood Culture - Final Methicillin Resist S. Aureus - Diagnostic Impressions Diagnostic Impressions: Echocardiogram 08/01/20 20:32 Transthoracic Echocardiogram Indication: Endocarditis BP: 124/68 HR: 83 Conclusions *Mild concentric left ventricular hypertrophy is observed. *Global left ventricular systolic function is normal. *The estimated ejection fraction is 50-55%. *Abnormal left ventricular diastolic filling is observed, consistent with impaired relaxation. Findings Procedure Info: The study quality is fair. Left Ventricle: The left ventricular chamber size is normal. Mild concentric left ventricular hypertrophy is observed. Global left ventricular systolic function is normal. The estimated ejection fraction is 50-55%. Abnormal left ventricular diastolic filling is observed, consistent with impaired relaxation. Left Atrium: The left atrial chamber size is normal. Right Ventricle: The right ventricular cavity size is normal. Right Atrium: The right atrial cavity size is normal. Aortic Valve: The aortic valve is trileaflet. There is no evidence of aortic regurgitation. There is no evidence of aortic stenosis. Mitral Valve: The mitral valve leaflets appear normal. There is trace of mitral regurgitation. Tricuspid Valve: There is tricuspid annular calcification. The tricuspid valve leaflets are normal. There is trace tricuspid regurgitation. Pulmonic Valve: The pulmonic valve appears normal. There is trace pulmonic regurgitation. Pericardium: A trivial pericardial effusion is visualized. Aorta: The aorta appears normal. Venous: The inferior vena cava is dilated. Measurements Chambers 2D Name Value Normal Range IVSd (2D) 1.33 cm (0.6 - 1.1) LVPWd (2D) 1.31 cm (0.6 - 1.1) LVIDd (2D) 5.03 cm (3.7 - 5.6) LVIDs (2D) 3.71 cm (2 - 3.8) LV FS (2D) 26.3 % - EF Teichholz (2D) 51.3 % - Ao root diameter (2D) 2.58 cm (2 - 3.7) Volumes/Mass Name Value Normal Range LA ESV SP 4CH (A/L) 68.16 ml - LA ESV SP 2CH (A/L) 71.81 ml - LA ESV BP (A/L) 72.16 ml - LA ESV BP (A/L) index 34.2 ml/m2 - LA ESV SP 4CH (MOD) 65.34 ml - LA ESV SP 2CH (MOD) 63.27 ml - LA ESV BP (MOD) 65.31 ml - LA ESV BP (MOD) index 30.95 ml/m2 - LV EDV SP 4CH (MOD) 185.13 ml - LV ESV SP 4CH (MOD) 79.24 ml - EF SP 4CH (MOD) 57.2 % - LV EDV SP 2CH (MOD) 191.64 ml - LV ESV SP 2CH (MOD) 112.9 ml - EF SP 2CH (MOD) 41.09 % - LV EDV BP 187.9 ml - LV ESV BP 100.66 ml - BP EF (MOD) 46.43 % - Diastolic/Systolic Function Name Value Normal Range MV E-wave Vmax 0.98 m/sec - MV deceleration time 279.48 msec - MV A-wave Vmax 0.99 m/sec - MV E:A ratio 0.99 ratio - Aortic Valve Name Value Normal Range AV Vmax 1.89 m/sec - AV VTI 32.14 cm - AV peak gradient 14.23 mmHg - AV mean gradient 7.6 mmHg - LVOT diameter 2.15 cm - LVOT Vmax 1.71 m/sec - LVOT VTI 28.31 cm - LVOT peak gradient 11.71 mmHg - LVOT mean gradient 5.52 mmHg - SV LVOT 102.46 ml - PRAVIN (continuity Vmax) 3.28 cm2 - PRAVIN (continuity VTI) 3.19 cm2 - Ascending Ao 2.59 cm - Tricuspid Valve Name Value Normal Range TR Vmax 2.67 m/sec - TR peak gradient 28 mmHg - RAP 5 mmHg - RVSP 33 mmHg - IVC diameter 2.17 cm (1.2 - 2.3) Pulmonic Valve/Qp:Qs Name Value Normal Range PV Vmax 1.4 m/sec - PV VTI 24.99 cm - PV peak gradient 7.83 mmHg - PV mean gradient 3.58 mmHg - NM end-diastolic Vmax 1.07 m/sec - RVOT Vmax 1.01 m/sec - RVOT VTI 17.18 cm - RVOT peak gradient 4.11 mmHg - Perez/IV: Voiding Method Toilet IV Catheter Type [Left Forearm INT / Saline Lock ] IV Catheter Type [Left INT / Saline Lock External Jugular] IV Catheter Type [Left Chest] VAS Cath IV Catheter Type [Left INT / Saline Lock Antecubital] Active Medications - Current Medications Current Medications: Generic Name Dose Route Start Last Admin Trade Name Freq PRN Reason Stop Dose Admin Acetaminophen 650 mg 07/30/20 00:41 08/01/20 13:44 Tylenol PO 650 mg Q4H PRN Administration Pain MILD(1-3)/Fever >100.5/LANZA Albuterol 0.63 mg 07/30/20 07:01 Proventil IH Q4HRT PRN Shortness Of Breath Amlodipine Besylate 10 mg 07/30/20 10:00 08/04/20 10:55 Amlodipine PO 10 mg DAILY KESHIA Administration Apixaban 5 mg 07/30/20 10:00 08/04/20 10:58 Eliquis PO 5 mg BID KESHIA Administration Protocol Carvedilol 25 mg 07/30/20 08:00 08/04/20 10:56 Coreg PO 25 mg BID@0800,1700 KESHIA Administration Clonidine HCl 0.1 mg 07/30/20 10:00 08/04/20 10:55 Catapres PO 0.1 mg BID KESHIA Administration Dextrose 0 ml 07/30/20 00:41 08/01/20 21:31 D50w (25gm) Syringe IV 50 ml Q30MIN PRN Administration Hypoglycemia Protocol Epoetin Wale 20,000 unit 08/01/20 14:40 Procrit IV BRENDAN PRN hemodialysis Hydralazine HCl 100 mg 07/30/20 14:00 08/04/20 15:43 Apresoline PO Not Given Q8HR [facility] Sodium Chloride 100 mls @ 999 mls/hr 08/01/20 09:00 Nacl 0.9% IV BRENDAN PRN Hypotension Insulin Human Lispro 0 unit 07/30/20 07:30 08/04/20 19:04 Humalog SUB-Q Not Given ACHS [facility] Protocol Magnesium Hydroxide 30 ml 07/30/20 00:41 Milk Of Magnesia PO Q4H PRN Constipation Ondansetron HCl 4 mg 07/30/20 00:41 07/30/20 22:01 Zofran IV 4 mg Q8H PRN Administration Nausea And Vomiting Pantoprazole Sodium 40 mg 07/30/20 22:00 08/03/20 22:33 Protonix PO 40 mg QHS KESHIA Administration Sertraline HCl 50 mg 07/30/20 12:00 08/04/20 10:55 Zoloft PO 50 mg DAILY KESHIA Administration Sodium Chloride 10 ml 07/30/20 10:00 08/03/20 22:34 Sodium Chloride Flush Syringe 10 Ml IV 10 ml BID KESHIA Administration Sodium Chloride 10 ml 07/30/20 00:41 Sodium Chloride Flush Syringe 10 Ml IV PRN PRN LINE FLUSH Nutrition/Malnutrition Assess - Dietary Evaluation Nutrition/Malnutrition Findings: Nutrition Notes Start: 07/30/20 10:57 Freq: Status: Active Protocol: Document 08/04/20 15:21 AL (Rec: 08/04/20 16:00 AL [id number]) Co-Sign 08/04/20 15:21 NHALL Nutrition Notes Initial or Follow up Brief Note Current Diagnosis CKD (stage V CKD),Diabetes, Hypertension Other Pertinent Diagnosis ESRD - HD, Abd pain, hx of erosive esophagitis, gastroparesis Current Diet Renal/Consistent CHO Labs/Tests Na 134 BUN 65 Cr 11.8 Glu 148 Pertinent Medications Reviewed Height 6 ft 3 in Weight 84.2 kg [place] Body Weight (kg) 89.09 BMI 23.2 Weight Status Appropriate Subjective/Other Information F/U for stable intakes. RN reports that pt did not eat at all this morning because he did not want to. RN reports pt consume cranberry juice. Per chart, pt consumed 25% of his lunch. Burn Absent Trauma Absent Current % PO Poor (25-49%) Minimum of two criteria No Interpretation of Weight Loss (severe) >2% in 1 week #1 Nutrition Diagnosis Inadequate oral intake As Evidenced by Signs and Symptoms pt only consuming 25% of lunch Diagnosis Progress(for reassessment Worsened documentation) Is patient on ventilator? No Is Patient Ambulatory and/or Out of Bed Yes REE-([facility]-ambulatory/OOB) [ 2440.919 [id number]] Calculation Used for Recommendations [facility] Additional Notes Pro: >101g (>1.2g/kg) Fluid: 1ml/kcal or per Nutrition Intervention Change Diet Order: continue Goal #1 Meet at least 80% of protein and energy needs via PO intakes Anticipated Discharge Needs: Renal, Consistent CHO Follow-Up By: 08/09/20 Additional Comments F/U for stable intakes
[2020-08-04] MEDS: PANTOPRAZOLE 40 MG TAB PO SCH (21:58)
[2020-08-05] MEDS: hydrALAZINE 100 MG TAB PO SCH ×3 (05:22→21:08)
[2020-08-05] MEDS: carvediloL 25 MG TAB PO SCH ×2 (09:44→16:45)
[2020-08-05] MEDS: APIXABAN 5 MG TAB PO SCH ×2 (09:44→21:08)
[2020-08-05] MEDS: cloNIDine 0.1 MG TAB PO SCH ×2 (09:44→21:07)
[2020-08-05] MEDS: SERTRALINE 50 MG TAB PO SCH (09:45)
[2020-08-05] MEDS: amLODIPine 10 MG TAB PO SCH (09:45)
[2020-08-05] MEDS: INSULIN LISPRO 100 UNIT/ML VIAL 3 mL SUB-Q SCH ×4 (09:46→21:13)
--- NOTE | 2020-08-05 11:31 | Progress Note ---
Assessment and Plan Cultures: Blood culture 07/30/2020 MRSA 3 of 4 bottles. Urine culture 07/29/2020 ESBL E coli. Blood culture 07/31/2020 MRSA 3 of 4 bottles Blood culture 08/02/2020 MRSA Assessment: 34 years old male with history of end-stage renal disease on hemodialysis via left IJ PermCath, noncompliance, hypertension, diabetes mellitus, gastric ulcer, recurrent ulcerative esophagitis, noncompliance, known to our service, recent ESBL Klebsiella bacteremia secondary to PermCath infectio, readmitted on 07/29/2020 due to nausea and vomiting for several days, patient missed dialysis twice: #Sepsis: present on admission with fever, leukocytosis, tachycardia, leukocytosis; source MRSA bacteremia/ESBL E coli UTI. #MRSA bacteremia: likely secondary to hemodialysis access infection. Persistent bacteremia. Patient missed 3 hemodialysis sections, dressing was no changed for almost 10 days. Left IJ hemodialysis catheter removed. Transthoracic echo no evidence of vegetation. Hemodialysis catheter removed on 08/03/2020. #ESBL E. coli UTI: pt makes urine. Urine culture grew E. coli UTI. Treated with ertapenem x3 days #History of Recent ESBL Klebsiella bacteremia: Had right IJ PermCath removal on 06/24/2020 with resolution of bacteremia. Got about 6 days of IV Meropenem via midline after that but his line fell out 6 days post discharge. He never contacted our office, states he came to the ER here (no record of this in the EMR) and went home. He has been doing well without abx for more than 1 week. Given his issues with non compliance and no evidence of sepsis, I would not restart IV abx. More importantly, he had source control during previous admission. #Diabetes mellitus: Uncontrolled. #Anemia: Chronic. #Hyperkalemia: Patient missed hemodialysis. #Hypertension: Uncontrolled. Better. #ESRD on HD via left chest hemodialysis access #Noncompliance Recs: -Obtain blood cultures today -If need for hemodialysis during this weekend please place a Vas-Cath until repeat blood cultures negative for 48 hours -Vascular on board -Psych consult given depressive mood and multiple readmissions/non compliance -Follow-up repeat blood cultures -Continue vancomycin with PK consult -Education about non compliance -Anticipate to discharge on vancomycin IV for 4 weeks if repeat blood culture negative Discussed with renal I am rounding this weekend, Dr. Valdez rounding on Saturday Will follow. Chloe Fitch MD Infectious Diseases [employer] [facility] ([facility]) M [phone] O [phone] Subjective Date of service: 08/05/20 Principal diagnosis: Hyperkalemia, end-stage renal disease, vomiting Interval history: Remains afebrile, feeling much better, denies any nausea vomiting or diarrhea. Objective - Exam Narrative Exam: General appearance: Alert in NAD in no acute distress Eyes: anicteric sclerae, moist conjunctivae; no lid-lag; PERRLA HENT: Atraumatic; oropharynx clear Lungs: CTA CV: RRR no murmur Abdomen: Soft, non-tender Extremities: no edema, no cyanosis Skin: No rash. Psych: Flat affect Neuro: alert and oriented x 3. Moving all extermities - Constitutional Vitals: Vital Signs Temp Pulse Resp BP Pulse Ox 99.2 F 78 18 146/76 97 08/05/20 08:46 08/05/20 09:45 08/05/20 08:46 08/05/20 09:45 08/05/20 08:46 Temperature -Last 24 Hours Temperature 99.2 F Temperature 98.7 F Temperature 98.8 F Temperature 98.6 F Temperature 98.7 F Temperature 99.2 F - Labs CBC & Chem 7: 08/04/20 07:18 08/04/20 07:18 Labs: Abnormal lab results 08/04/20 08/04/20 08/04/20 Range/Units 12:43 16:23 21:26 POC Glucose 189 H 184 H 214 H (70-105) 08/05/20 Range/Units 09:02 POC Glucose 212 H (70-105)
--- NOTE | 2020-08-05 11:34 | Progress Note ---
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 Benítez on 08/03/20 for line holiday due to MRSA Bacteremia - cont to have +ve BC, discussed with ID and vascular, Dr Benítez will place vascath today and if BC -ve, permcath on Saturday - HD today for clearance and volume removal post vascath placement -Fluid restriction of 1 liter per day -Anemia-On Epogen 20,000 units with HD -Renally dose medications -Strict I/Os monitoring -Obtain daily weights -Assess dialysis needs daily Rio Gallo MD [phone] Subjective Date of service: 08/05/20 Principal diagnosis: Hyperkalemia, end-stage renal disease, vomiting Interval history: denies acute issues, comfortablle Objective - Vital Signs Vital signs: Vital Signs - 12hr 08/05/20 08/05/20 08/05/20 03:31 08:46 09:44 Temperature 98.7 F 99.2 F Pulse Rate 74 78 78 Respiratory 16 18 Rate Blood Pressure 136/71 146/76 146/76 O2 Sat by Pulse 95 97 Oximetry 08/05/20 09:45 Temperature Pulse Rate 78 Respiratory Rate Blood Pressure 146/76 O2 Sat by Pulse Oximetry - General Appearance General appearance: well-developed, well-nourished, appears stated age EENT: ATNC, PERRL Neck: no JVD, no carotid bruit Respiratory: Present: Clear to Ascultation. Absent: Rales, Ronchi Cardiology: regular, S1S2 Gastrointestinal: normoactive bowel sounds, no tenderness, no distended Integumentary: no rash, warm and dry Neurologic: no focal deficit, no asterixis, alert and oriented x3 Musculoskeletal: other (no edema in BLE) Psychiatric: mood/affect appropriate, cooperative - Lab 08/04/20 07:18 08/04/20 07:18 Most recent lab results Calcium 9.0 mg/dL (8.4-10.2) D 08/04/20 07:18 Medications & Allergies - Medications Allergies/Adverse Reactions: Allergies No Known Allergies Allergy (Verified 07/20/20 15:05) Home Medications: Home Medications Medication Instructions Recorded Confirmed Last Taken Type Albuterol Sulfate [Albuterol 0.63% 0.63 mg IH Q4HR PRN #50 04/17/20 07/30/20 05/30/20 Rx NEBS] Lispro Insulin [HumaLOG] 5 unit SQ AC #1 vial 04/17/20 07/30/20 06/15/20 Rx Apixaban [Eliquis] 1 tab PO BID #60 tablet 07/17/20 07/30/20 07/22/20 08:00 Rx Insulin Glargine [Lantus VIAL] 10 units SUB-Q QHS units 07/17/20 07/30/20 07/21/20 20:00 Rx Metoclopramide [Reglan TAB] 5 mg PO ACHS PRN #120 tablet 07/17/20 07/30/20 07/22/20 08:00 Rx Pantoprazole [Protonix TAB] 40 mg PO DAILY #60 tablet 07/17/20 07/30/20 07/22/20 08:00 Rx amLODIPine 10 mg PO DAILY #30 tablet 07/17/20 07/30/20 07/22/20 08:00 Rx carvediloL [Coreg] 25 mg PO BID 30 Days #60 tablet 07/17/20 07/30/20 07/22/20 08:00 Rx cloNIDine [Catapres] 0.1 mg PO BID #60 tablet 07/17/20 07/30/20 07/22/20 08:00 Rx hydrALAZINE [Apresoline TAB] 100 mg PO Q8HR #90 tab 07/17/20 07/30/20 07/22/20 08:00 Rx Active Medications: Generic Name Dose Route Start Last Admin Trade Name Edmundo PRN Reason Stop Dose Admin Acetaminophen 650 mg 07/30/20 00:41 08/01/20 13:44 Tylenol PO 650 mg Q4H PRN Administration Pain MILD(1-3)/Fever >100.5/LANZA Albuterol 0.63 mg 07/30/20 07:01 Proventil IH Q4HRT PRN Shortness Of Breath Amlodipine Besylate 10 mg 07/30/20 10:00 08/05/20 09:45 Amlodipine PO 10 mg DAILY KESHIA Administration Apixaban 5 mg 07/30/20 10:00 08/05/20 09:44 Eliquis PO 5 mg BID KESHIA Administration Protocol Carvedilol 25 mg 07/30/20 08:00 08/05/20 09:44 Coreg PO 25 mg BID@0800,1700 KESHIA Administration Clonidine HCl 0.1 mg 07/30/20 10:00 08/05/20 09:44 Catapres PO 0.1 mg BID KESHIA Administration Dextrose 0 ml 07/30/20 00:41 08/01/20 21:31 D50w (25gm) Syringe IV 50 ml Q30MIN PRN Administration Hypoglycemia Protocol Epoetin Wale 20,000 unit 08/01/20 14:40 Procrit IV BRENDAN PRN hemodialysis Hydralazine HCl 100 mg 07/30/20 14:00 08/05/20 05:22 Apresoline PO 100 mg Q8HR KESHIA Administration Sodium Chloride 100 mls @ 999 mls/hr 08/01/20 09:00 Nacl 0.9% IV BRENDAN PRN Hypotension Insulin Human Lispro 0 unit 07/30/20 07:30 08/05/20 09:46 Humalog SUB-Q 3 unit ACHS KESHIA Administration Protocol Magnesium Hydroxide 30 ml 07/30/20 00:41 Milk Of Magnesia PO Q4H PRN Constipation Ondansetron HCl 4 mg 07/30/20 00:41 07/30/20 22:01 Zofran IV 4 mg Q8H PRN Administration Nausea And Vomiting Pantoprazole Sodium 40 mg 07/30/20 22:00 08/04/20 21:58 Protonix PO 40 mg QHS KESHIA Administration Sertraline HCl 50 mg 07/30/20 12:00 08/05/20 09:45 Zoloft PO 50 mg DAILY KESHIA Administration Sodium Chloride 10 ml 07/30/20 10:00 08/05/20 09:45 Sodium Chloride Flush Syringe 10 Ml IV 10 ml BID KESHIA Administration Sodium Chloride 10 ml 07/30/20 00:41 Sodium Chloride Flush Syringe 10 Ml IV PRN PRN LINE FLUSH
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
--- NOTE | 2020-08-05 20:22 | Progress Note ---
Assessment and Plan Assessment and plan: --Possible dialysis access catheter placement today /tomorrow I discussed with roof bolter helper He informed that his discussing with vascular for possible Vas-Cath placement today Followed by hemodialysis --Severe sepsis ; secondary to MRSA bacteremia Current Visit: Yes Status: Chronic Plan to address problem: Left IJ permacath removed by vascular per ID recommendations ID recommend long-term vancomycin for 4 wks TTE negative for vegetation --Severe sepsis ; secondary to UTI : POA Current Visit: Yes Status: Chronic Plan to address problem: Fever, leukocytosis, positive urine cultures ESBL s/p ertapenem,x3days, contact isolation, ID following --Hyperkalemia/ Current Visit: Yes Status: Acute . Plan to address problem: Improved to normal -- End-stage renal disease needing dialysis Current Visit: Yes Status: Chronic Plan to address problem: On hemodialysis , MRSA sepsis ID recommended to remove HD catheter s/p removal of left IJ permacath [due to MRSA Bacteremia] Possible vascular consult, Vas-Cath placement followed by hemodialysis Per nephrology --Anemia; Hb 7.0-8.2 Current Visit: Yes Status: Chronic Plan to address problem: Multifactorial , anemia of chronic disease Secondary to erosive esophagitis , Received 1 unit of PRBC during dialysis Closely monitor H&H, transfuse additional PRBC as needed Procrit during dialysis --Erosive esophagitis Current Visit: Yes Status: Acute Plan to address problem: IV Protonix, GI consult if needed -- Hypertensive urgency/POA Current Visit: Yes Status: Acute Plan to address problem: Blood pressure moderate control Continue current antihypertensives and PRN medications --Gastroparesis Current Visit: Yes Status: Acute Plan to address problem: Symptomatic treatment Antiemetics, Reglan as needed. --Depression; Current Visit: Yes Status: Acute Plan to address problem: Denies suicidal thoughts or ideation Psych following, continue Zoloft --Medical noncompliance; Current Visit: Yes Status: Acute Plan to address problem: patient strongly counseled the importance of adhering to the treatment plan Adhere to medications diet follow-up visit hemodialysis Patient verbalized understanding -- DVT prophylaxis Current Visit: No Status: Acute Plan to address problem: On heparin and GI prophylaxis Protonix We will closely monitor the patient and adjust management as needed Patient is critically ill with severe sepsis, anemia Poor prognosis, Follow senior management consultant recommendations Plan of care reviewed with the patient and his nurse 08/02: Severe sepsis MRSA bacteremia, ID recommend HD catheter removal, vascular consulted Patient is on ertapenem 08/03; MRSA bacteremia, hemodialysis catheter removed, ID recommend long-term Vanco, ESBL UTI, contact isolation 08/04; HD catheter is out, patient did not receive hemodialysis last 3 days, vascular and nephrology closely monitoring ID recommend long-term vancomycin for 4 weeks, TTE negative for vegetation Closely monitor the patient and adjust management as needed 08/05; Vas-Cath placement followed by hemodialysis per nephrology Plan of care reviewed with the patient and his nurse History Interval history: I have seen and examined the patient at the bedside Patient's chart and medications reviewed Patient is concerned about hemodialysis Reports that he did not have HD for the last 3 days Denies any chest pain or shortness of breath Vital signs noted Hospitalist Physical - Constitutional Vitals: Temp Pulse Resp BP Pulse Ox 99.8 F H 83 16 126/62 72 L 08/05/20 16:42 08/05/20 16:45 08/05/20 16:42 08/05/20 16:45 08/05/20 16:42 General appearance: Present: no acute distress, well-nourished, other (Chronically ill looking, afebrile) - EENT Eyes: Present: PERRL, EOM intact - Neck Neck: Present: supple, normal ROM - Respiratory Respiratory effort: normal Respiratory: bilateral: diminished, negative: rales, rhonchi, wheezing - Cardiovascular Rhythm: regular Heart Sounds: Present: S1 & S2 - Extremities Extremities: no ischemia, No edema - Abdominal General gastrointestinal: soft, non-tender, non-distended, normal bowel sounds - Integumentary Integumentary: Present: clear, warm - Neurologic Neurologic: CNII-XII intact, moves all extremities Results - Labs CBC & Chem 7: 08/04/20 07:18 08/04/20 07:18 Labs: Laboratory Last Values WBC 10.1 K/mm3 (4.5-11.0) 08/04/20 07:18 RBC 3.32 M/mm3 (3.65-5.03) L 08/04/20 07:18 Hgb 8.2 gm/dl (11.8-15.2) L 08/04/20 07:18 Hct 25.7 % (35.5-45.6) L 08/04/20 07:18 MCV 77 fl (84-94) L 08/04/20 07:18 MCH 25 pg (28-32) L 08/04/20 07:18 MCHC 32 % (32-34) 08/04/20 07:18 RDW 19.9 % (13.2-15.2) H 08/04/20 07:18 Plt Count 422 K/mm3 (140-440) 08/04/20 07:18 Lymph % (Auto) 6.6 % (13.4-35.0) L 08/01/20 06:32 [place] % (Auto) 9.6 % (0.0-7.3) H 08/01/20 06:32 Eos % (Auto) 0.5 % (0.0-4.3) 08/01/20 06:32 Baso % (Auto) 0.5 % (0.0-1.8) 08/01/20 06:32 Lymph # 0.8 K/mm3 (1.2-5.4) L 08/01/20 06:32 Bradford # 1.2 K/mm3 (0.0-0.8) H 08/01/20 06:32 Eos # 0.1 K/mm3 (0.0-0.4) 08/01/20 06:32 Baso # 0.1 K/mm3 (0.0-0.1) 08/01/20 06:32 Seg Neutrophils % 82.8 % (40.0-70.0) H 08/01/20 06:32 Add Manual Diff Complete 08/04/20 07:18 Total Counted 100 08/04/20 07:18 Seg Neutrophils # 10.2 K/mm3 (1.8-7.7) H 08/01/20 06:32 Seg Neuts % (Manual) 70.0 % (40.0-70.0) 08/04/20 07:18 Band Neutrophils % 0 % 08/04/20 07:18 Lymphocytes % (Manual) 15.0 % (13.4-35.0) 08/04/20 07:18 Reactive Lymphs % (Man) 0 % 08/04/20 07:18 Monocytes % (Manual) 13.0 % (0.0-7.3) H 08/04/20 07:18 Eosinophils % (Manual) 1.0 % (0.0-4.3) 08/04/20 07:18 Basophils % (Manual) 0 % (0.0-1.8) 08/04/20 07:18 Metamyelocytes % 0 % 08/04/20 07:18 Myelocytes % 1.0 % 08/04/20 07:18 Promyelocytes % 0 % 08/04/20 07:18 Blast Cells % 0 % 08/04/20 07:18 Nucleated RBC % Not Reportable 08/04/20 07:18 Seg Neutrophils # Man 7.1 K/mm3 (1.8-7.7) 08/04/20 07:18 Band Neutrophils # 0.0 K/mm3 08/04/20 07:18 Lymphocytes # (Manual) 1.5 K/mm3 (1.2-5.4) 08/04/20 07:18 Abs React Lymphs (Man) 0.0 K/mm3 08/04/20 07:18 Monocytes # (Manual) 1.3 K/mm3 (0.0-0.8) H 08/04/20 07:18 Eosinophils # (Manual) 0.1 K/mm3 (0.0-0.4) 08/04/20 07:18 Basophils # (Manual) 0.0 K/mm3 (0.0-0.1) 08/04/20 07:18 Metamyelocytes # 0.0 K/mm3 08/04/20 07:18 Myelocytes # 0.1 K/mm3 08/04/20 07:18 Promyelocytes # 0.0 K/mm3 08/04/20 07:18 Blast Cells # 0.0 K/mm3 08/04/20 07:18 WBC Morphology Not Reportable 08/04/20 07:18 Hypersegmented Neuts Not Reportable 08/04/20 07:18 Hyposegmented Neuts Not Reportable 08/04/20 07:18 Hypogranular Neuts Not Reportable 08/04/20 07:18 Smudge Cells Not Reportable 08/04/20 07:18 Toxic Granulation Not Reportable 08/04/20 07:18 Toxic Vacuolation Not Reportable 08/04/20 07:18 Dohle Bodies Not Reportable 08/04/20 07:18 Pelger-Huet Anomaly Not Reportable 08/04/20 07:18 Julio Cesar Rods Not Reportable 08/04/20 07:18 Platelet Estimate Consistent w auto 08/04/20 07:18 Clumped Platelets Not Reportable 08/04/20 07:18 Plt Clumps, EDTA Not Reportable 08/04/20 07:18 Large Platelets Not Reportable 08/04/20 07:18 Giant Platelets Not Reportable 08/04/20 07:18 Platelet Satelliting Not Reportable 08/04/20 07:18 Plt Morphology Comment Not Reportable 08/04/20 07:18 RBC Morphology Not Reportable 08/04/20 07:18 Dimorphic RBCs Not Reportable 08/04/20 07:18 Polychromasia Not Reportable 08/04/20 07:18 Hypochromasia 1+ 08/04/20 07:18 Poikilocytosis Not Reportable 08/04/20 07:18 Anisocytosis Few 08/04/20 07:18 Microcytosis Not Reportable 08/04/20 07:18 Macrocytosis Not Reportable 08/04/20 07:18 Spherocytes Not Reportable 08/04/20 07:18 Pappenheimer Bodies Not Reportable 08/04/20 07:18 Sickle Cells Not Reportable 08/04/20 07:18 Target Cells Not Reportable 08/04/20 07:18 Tear Drop Cells Not Reportable 08/04/20 07:18 Ovalocytes Not Reportable 08/04/20 07:18 Helmet Cells Not Reportable 08/04/20 07:18 [place] Bodies Not Reportable 08/04/20 07:18 Emmet Rings Not Reportable 08/04/20 07:18 [place] Cells Not Reportable 08/04/20 07:18 Bite Cells Not Reportable 08/04/20 07:18 Crenated Cell Not Reportable 08/04/20 07:18 Elliptocytes Not Reportable 08/04/20 07:18 Acanthocytes (Spur) Not Reportable 08/04/20 07:18 Rouleaux Not Reportable 08/04/20 07:18 Hemoglobin C Crystals Not Reportable 08/04/20 07:18 Schistocytes Not Reportable 08/04/20 07:18 Malaria parasites Not Reportable 08/04/20 07:18 David Bodies Not Reportable 08/04/20 07:18 Hem Pathologist Commnt No 08/04/20 07:18 PT 22.3 Sec. (12.2-14.9) H 07/31/20 05:36 INR 1.91 (0.87-1.13) H 07/31/20 05:36 Sodium 134 mmol/L (137-145) L 08/04/20 07:18 Potassium 4.7 mmol/L (3.6-5.0) 08/04/20 07:18 Chloride 92.7 mmol/L (98-107) L 08/04/20 07:18 Carbon Dioxide 22 mmol/L (22-30) 08/04/20 07:18 Anion Gap 24 mmol/L 08/04/20 07:18 BUN 65 mg/dL (9-20) H 08/04/20 07:18 Creatinine 11.8 mg/dL (0.8-1.3) H 08/04/20 07:18 Estimated GFR 6 ml/min 08/04/20 07:18 BUN/Creatinine Ratio 6 % 08/04/20 07:18 Glucose 148 mg/dL (75-100) H 08/04/20 07:18 POC Glucose 122 (70-105) H 08/05/20 17:04 Calcium 9.0 mg/dL (8.4-10.2) D 08/04/20 07:18 Urine Color Yellow (Yellow) 07/29/20 Unknown Urine Turbidity Slightly-cloudy (Clear) 07/29/20 Unknown Urine pH 6.0 (5.0-7.0) 07/29/20 Unknown Ur Specific [place] 1.024 (1.003-1.030) 07/29/20 Unknown Urine Protein >500 mg/dL (Negative) 07/29/20 Unknown Urine Glucose (UA) >=500 mg/dL (Negative) 07/29/20 Unknown Urine Ketones Tr mg/dL (Negative) 07/29/20 Unknown Urine Blood Sm (Negative) 07/29/20 Unknown Urine Nitrite Neg (Negative) 07/29/20 Unknown Urine Bilirubin Neg (Negative) 07/29/20 Unknown Urine Urobilinogen < 2.0 mg/dL (<2.0) 07/29/20 Unknown Ur Leukocyte Esterase Tr (Negative) 07/29/20 Unknown Urine WBC (Auto) 34.0 /HPF (0.0-6.0) H 07/29/20 Unknown Urine RBC (Auto) 9.0 /HPF (0.0-6.0) 07/29/20 Unknown U Epithel Cells (Auto) 1.0 /HPF (0-13.0) 07/29/20 Unknown Urine Bacteria (Auto) 1+ /HPF (Negative) 07/29/20 Unknown Urine Yeast (Budding) 1+ /HPF 07/29/20 Unknown Random Vancomycin 24.0 ug/mL (0-40.0) 08/04/20 07:18 Salicylates < 0.3 mg/dL (2.8-20.0) L 07/29/20 16:06 Urine Opiates Screen Presumptive negative 07/29/20 Unknown Urine Methadone Screen Presumptive negative 07/29/20 Unknown Acetaminophen 5.0 ug/mL (10.0-30.0) L 07/29/20 16:06 Ur Barbiturates Screen Presumptive negative 07/29/20 Unknown Ur Phencyclidine Scrn Presumptive negative 07/29/20 Unknown Ur Amphetamines Screen Presumptive negative 07/29/20 Unknown U Benzodiazepines Scrn Presumptive negative 07/29/20 Unknown Urine Cocaine Screen Presumptive negative 07/29/20 Unknown U Marijuana (THC) Screen Presumptive negative 07/29/20 Unknown Drugs of Abuse Note Disclamer 07/29/20 Unknown Plasma/Serum Alcohol < 0.01 % (0-0.07) 07/29/20 16:06 Hepatitis A IgM Ab Non-reactive (NonReactive) 07/30/20 05:31 Hep Bs Antigen Non-reactive (Negative) 07/30/20 05:31 Hep B Core IgM Ab Non-reactive (NonReactive) 07/30/20 05:31 Hepatitis C Antibody Non-reactive (NonReactive) 07/30/20 05:31 Blood Type O POSITIVE 07/31/20 20:30 Antibody Screen Negative 07/31/20 20:30 Crossmatch See Detail 07/31/20 20:30 Microbiology: Microbiology 07/30/20 05:31 Peripheral/Venous Blood Culture - Final Methicillin Resist S. Aureus 08/05/20 13:32 Peripheral/Venous Blood Culture - Preliminary Culture in Progress 08/05/20 13:58 Peripheral/Venous Blood Culture - Preliminary Culture in Progress 08/02/20 Unknown Vascular Cath Catheter Tip Culture - Final Methicillin Resist S. Aureus 08/02/20 14:18 Peripheral/Venous Blood Culture - Final Methicillin Resist S. Aureus 08/02/20 14:18 Peripheral/Venous Blood Culture - Final Methicillin Resist S. Aureus - Diagnostic Impressions Diagnostic Impressions: Echocardiogram 08/01/20 20:32 Transthoracic Echocardiogram Indication: Endocarditis BP: 124/68 HR: 83 Conclusions *Mild concentric left ventricular hypertrophy is observed. *Global left ventricular systolic function is normal. *The estimated ejection fraction is 50-55%. *Abnormal left ventricular diastolic filling is observed, consistent with impaired relaxation. Findings Procedure Info: The study quality is fair. Left Ventricle: The left ventricular chamber size is normal. Mild concentric left ventricular hypertrophy is observed. Global left ventricular systolic function is normal. The estimated ejection fraction is 50-55%. Abnormal left ventricular diastolic filling is observed, consistent with impaired relaxation. Left Atrium: The left atrial chamber size is normal. Right Ventricle: The right ventricular cavity size is normal. Right Atrium: The right atrial cavity size is normal. Aortic Valve: The aortic valve is trileaflet. There is no evidence of aortic regurgitation. There is no evidence of aortic stenosis. Mitral Valve: The mitral valve leaflets appear normal. There is trace of mitral regurgitation. Tricuspid Valve: There is tricuspid annular calcification. The tricuspid valve leaflets are normal. There is trace tricuspid regurgitation. Pulmonic Valve: The pulmonic valve appears normal. There is trace pulmonic regurgitation. Pericardium: A trivial pericardial effusion is visualized. Aorta: The aorta appears normal. Venous: The inferior vena cava is dilated. Measurements Chambers 2D Name Value Normal Range IVSd (2D) 1.33 cm (0.6 - 1.1) LVPWd (2D) 1.31 cm (0.6 - 1.1) LVIDd (2D) 5.03 cm (3.7 - 5.6) LVIDs (2D) 3.71 cm (2 - 3.8) LV FS (2D) 26.3 % - EF Teichholz (2D) 51.3 % - Ao root diameter (2D) 2.58 cm (2 - 3.7) Volumes/Mass Name Value Normal Range LA ESV SP 4CH (A/L) 68.16 ml - LA ESV SP 2CH (A/L) 71.81 ml - LA ESV BP (A/L) 72.16 ml - LA ESV BP (A/L) index 34.2 ml/m2 - LA ESV SP 4CH (MOD) 65.34 ml - LA ESV SP 2CH (MOD) 63.27 ml - LA ESV BP (MOD) 65.31 ml - LA ESV BP (MOD) index 30.95 ml/m2 - LV EDV SP 4CH (MOD) 185.13 ml - LV ESV SP 4CH (MOD) 79.24 ml - EF SP 4CH (MOD) 57.2 % - LV EDV SP 2CH (MOD) 191.64 ml - LV ESV SP 2CH (MOD) 112.9 ml - EF SP 2CH (MOD) 41.09 % - LV EDV BP 187.9 ml - LV ESV BP 100.66 ml - BP EF (MOD) 46.43 % - Diastolic/Systolic Function Name Value Normal Range MV E-wave Vmax 0.98 m/sec - MV deceleration time 279.48 msec - MV A-wave Vmax 0.99 m/sec - MV E:A ratio 0.99 ratio - Aortic Valve Name Value Normal Range AV Vmax 1.89 m/sec - AV VTI 32.14 cm - AV peak gradient 14.23 mmHg - AV mean gradient 7.6 mmHg - LVOT diameter 2.15 cm - LVOT Vmax 1.71 m/sec - LVOT VTI 28.31 cm - LVOT peak gradient 11.71 mmHg - LVOT mean gradient 5.52 mmHg - SV LVOT 102.46 ml - PRAVIN (continuity Vmax) 3.28 cm2 - PRAVIN (continuity VTI) 3.19 cm2 - Ascending Ao 2.59 cm - Tricuspid Valve Name Value Normal Range TR Vmax 2.67 m/sec - TR peak gradient 28 mmHg - RAP 5 mmHg - RVSP 33 mmHg - IVC diameter 2.17 cm (1.2 - 2.3) Pulmonic Valve/Qp:Qs Name Value Normal Range PV Vmax 1.4 m/sec - PV VTI 24.99 cm - PV peak gradient 7.83 mmHg - PV mean gradient 3.58 mmHg - VT end-diastolic Vmax 1.07 m/sec - RVOT Vmax 1.01 m/sec - RVOT VTI 17.18 cm - RVOT peak gradient 4.11 mmHg - Perez/IV: Voiding Method Toilet IV Catheter Type [Left Forearm INT / Saline Lock ] IV Catheter Type [Left INT / Saline Lock External Jugular] IV Catheter Type [Left Chest] VAS Cath IV Catheter Type [Left INT / Saline Lock Antecubital] Active Medications - Current Medications Current Medications: Generic Name Dose Route Start Last Admin Trade Name Freq PRN Reason Stop Dose Admin Acetaminophen 650 mg 07/30/20 00:41 08/01/20 13:44 Tylenol PO 650 mg Q4H PRN Administration Pain MILD(1-3)/Fever >100.5/LANZA Albuterol 0.63 mg 07/30/20 07:01 Proventil IH Q4HRT PRN Shortness Of Breath Amlodipine Besylate 10 mg 07/30/20 10:00 08/05/20 09:45 Amlodipine PO 10 mg DAILY KESHIA Administration Apixaban 5 mg 07/30/20 10:00 08/05/20 09:44 Eliquis PO 5 mg BID KESHIA Administration Protocol Carvedilol 25 mg 07/30/20 08:00 08/05/20 16:45 Coreg PO 25 mg BID@0800,1700 KESHIA Administration Clonidine HCl 0.1 mg 07/30/20 10:00 08/05/20 09:44 Catapres PO 0.1 mg BID KESHIA Administration Dextrose 0 ml 07/30/20 00:41 08/01/20 21:31 D50w (25gm) Syringe IV 50 ml Q30MIN PRN Administration Hypoglycemia Protocol Epoetin Wale 20,000 unit 08/01/20 14:40 Procrit IV BRENDAN PRN hemodialysis Hydralazine HCl 100 mg 07/30/20 14:00 08/05/20 13:32 Apresoline PO 100 mg Q8HR KESHIA Administration Sodium Chloride 100 mls @ 999 mls/hr 08/01/20 09:00 Nacl 0.9% IV BRENDAN PRN Hypotension Insulin Human Lispro 0 unit 07/30/20 07:30 08/05/20 16:48 Humalog SUB-Q Not Given ACHS [facility] Protocol Magnesium Hydroxide 30 ml 07/30/20 00:41 Milk Of Magnesia PO Q4H PRN Constipation Ondansetron HCl 4 mg 07/30/20 00:41 07/30/20 22:01 Zofran IV 4 mg Q8H PRN Administration Nausea And Vomiting Pantoprazole Sodium 40 mg 07/30/20 22:00 08/04/20 21:58 Protonix PO 40 mg QHS KESHIA Administration Sertraline HCl 50 mg 07/30/20 12:00 08/05/20 09:45 Zoloft PO 50 mg DAILY KESHIA Administration Sodium Chloride 10 ml 07/30/20 10:00 08/05/20 09:45 Sodium Chloride Flush Syringe 10 Ml IV 10 ml BID KESHIA Administration Sodium Chloride 10 ml 07/30/20 00:41 Sodium Chloride Flush Syringe 10 Ml IV PRN PRN LINE FLUSH Nutrition/Malnutrition Assess - Dietary Evaluation Nutrition/Malnutrition Findings: Nutrition Notes Start: 07/30/20 10:57 Freq: Status: Active Protocol: Document 08/04/20 15:21 AL (Rec: 08/04/20 16:00 AL [id number]) Co-Sign 08/04/20 15:21 NHALL Nutrition Notes Initial or Follow up Brief Note Current Diagnosis CKD (stage V CKD),Diabetes, Hypertension Other Pertinent Diagnosis ESRD - HD, Abd pain, hx of erosive esophagitis, gastroparesis Current Diet Renal/Consistent CHO Labs/Tests Na 134 BUN 65 Cr 11.8 Glu 148 Pertinent Medications Reviewed Height 6 ft 3 in Weight 84.2 kg [place] Body Weight (kg) 89.09 BMI 23.2 Weight Status Appropriate Subjective/Other Information F/U for stable intakes. RN reports that pt did not eat at all this morning because he did not want to. RN reports pt consume cranberry juice. Per chart, pt consumed 25% of his lunch. Burn Absent Trauma Absent Current % PO Poor (25-49%) Minimum of two criteria No Interpretation of Weight Loss (severe) >2% in 1 week #1 Nutrition Diagnosis Inadequate oral intake As Evidenced by Signs and Symptoms pt only consuming 25% of lunch Diagnosis Progress(for reassessment Worsened documentation) Is patient on ventilator? No Is Patient Ambulatory and/or Out of Bed Yes REE-([place]-St. Jeor-ambulatory/OOB) [ [id number] [id number]] Calculation Used for Recommendations [place] Jeor Additional Notes Pro: >101g (>1.2g/kg) Fluid: 1ml/kcal or per Nutrition Intervention Change Diet Order: continue Goal #1 Meet at least 80% of protein and energy needs via PO intakes Anticipated Discharge Needs: Renal, Consistent CHO Follow-Up By: 08/09/20 Additional Comments F/U for stable intakes
[2020-08-05] MEDS: ACETAMINOPHEN 325 MG TAB PO PRN (21:07)
[2020-08-05] MEDS: PANTOPRAZOLE 40 MG TAB PO SCH (21:08)
[2020-08-06] MEDS: hydrALAZINE 100 MG TAB PO SCH ×4 (07:28→21:38)
--- NOTE | 2020-08-06 08:17 | Progress Note ---
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 Benítez on 08/03/20 for line holiday due to MRSA Bacteremia - cont to have +ve BC, discussed with ID and vascular, Dr Benítez will place vascath today, could not be done yesterday because the dental laboratory technician was not available, hopefully today - HD today for clearance and volume removal post vascath placement -Fluid restriction of 1 liter per day -Anemia-On Epogen 20,000 units with HD -Renally dose medications -Strict I/Os monitoring -Obtain daily weights -Assess dialysis needs daily Rio Gallo MD [phone] Subjective Date of service: 08/06/20 Principal diagnosis: Hyperkalemia, end-stage renal disease, vomiting Interval history: could have done vascath yesterday Objective - Vital Signs Vital signs: Vital Signs - 12hr 08/05/20 08/05/20 08/06/20 20:21 20:48 00:22 Temperature 100.1 F H 98.4 F Pulse Rate 76 73 Respiratory 20 20 Rate Blood Pressure 121/64 Blood Pressure 126/65 [Left] O2 Sat by Pulse 96 96 Oximetry 08/06/20 04:41 Temperature 98.8 F Pulse Rate 68 Respiratory Rate Blood Pressure Blood Pressure 141/68 [Left] O2 Sat by Pulse Oximetry - Lab 08/04/20 07:18 08/04/20 07:18 Most recent lab results Calcium 9.0 mg/dL (8.4-10.2) D 08/04/20 07:18 Medications & Allergies - Medications Allergies/Adverse Reactions: Allergies No Known Allergies Allergy (Verified 07/20/20 15:05) Home Medications: Home Medications Medication Instructions Recorded Confirmed Last Taken Type Albuterol Sulfate [Albuterol 0.63% 0.63 mg IH Q4HR PRN #50 04/17/20 07/30/20 05/30/20 Rx NEBS] Lispro Insulin [HumaLOG] 5 unit SQ AC #1 vial 04/17/20 07/30/20 06/15/20 Rx Apixaban [Eliquis] 1 tab PO BID #60 tablet 07/17/20 07/30/20 07/22/20 08:00 Rx Insulin Glargine [Lantus VIAL] 10 units SUB-Q QHS units 07/17/20 07/30/20 07/21/20 20:00 Rx Metoclopramide [Reglan TAB] 5 mg PO ACHS PRN #120 tablet 07/17/20 07/30/20 07/22/20 08:00 Rx Pantoprazole [Protonix TAB] 40 mg PO DAILY #60 tablet 07/17/20 07/30/20 07/22/20 08:00 Rx amLODIPine 10 mg PO DAILY #30 tablet 07/17/20 07/30/20 07/22/20 08:00 Rx carvediloL [Coreg] 25 mg PO BID 30 Days #60 tablet 07/17/20 07/30/20 07/22/20 08:00 Rx cloNIDine [Catapres] 0.1 mg PO BID #60 tablet 07/17/20 07/30/20 07/22/20 08:00 Rx hydrALAZINE [Apresoline TAB] 100 mg PO Q8HR #90 tab 07/17/20 07/30/20 07/22/20 08:00 Rx Active Medications: Generic Name Dose Route Start Last Admin Trade Name Freq PRN Reason Stop Dose Admin Acetaminophen 650 mg 07/30/20 00:41 08/05/20 21:07 Tylenol PO 650 mg Q4H PRN Administration Pain MILD(1-3)/Fever >100.5/LANZA Albuterol 0.63 mg 07/30/20 07:01 Proventil IH Q4HRT PRN Shortness Of Breath Amlodipine Besylate 10 mg 07/30/20 10:00 08/05/20 09:45 Amlodipine PO 10 mg DAILY KESHIA Administration Apixaban 5 mg 07/30/20 10:00 08/05/20 21:08 Eliquis PO 5 mg BID KESHIA Administration Protocol Carvedilol 25 mg 07/30/20 08:00 08/05/20 16:45 Coreg PO 25 mg BID@0800,1700 KESHIA Administration Clonidine HCl 0.1 mg 07/30/20 10:00 08/05/20 21:07 Catapres PO 0.1 mg BID KESHIA Administration Dextrose 0 ml 07/30/20 00:41 08/01/20 21:31 D50w (25gm) Syringe IV 50 ml Q30MIN PRN Administration Hypoglycemia Protocol Epoetin Wale 20,000 unit 08/01/20 14:40 Procrit IV BRENDAN PRN hemodialysis Hydralazine HCl 100 mg 07/30/20 14:00 08/06/20 07:28 Apresoline PO Not Given Q8HR KESHIA Sodium Chloride 100 mls @ 999 mls/hr 08/01/20 09:00 Nacl 0.9% IV BRENDAN PRN Hypotension Insulin Human Lispro 0 unit 07/30/20 07:30 08/05/20 21:13 Humalog SUB-Q 2 unit ACHS KESHIA Administration Protocol Magnesium Hydroxide 30 ml 07/30/20 00:41 Milk Of Magnesia PO Q4H PRN Constipation Ondansetron HCl 4 mg 07/30/20 00:41 07/30/20 22:01 Zofran IV 4 mg Q8H PRN Administration Nausea And Vomiting Pantoprazole Sodium 40 mg 07/30/20 22:00 08/05/20 21:08 Protonix PO 40 mg QHS KESHIA Administration Sertraline HCl 50 mg 07/30/20 12:00 08/05/20 09:45 Zoloft PO 50 mg DAILY KESHIA Administration Sodium Chloride 10 ml 07/30/20 10:00 08/05/20 21:08 Sodium Chloride Flush Syringe 10 Ml IV 10 ml BID KESHIA Administration Sodium Chloride 10 ml 07/30/20 00:41 Sodium Chloride Flush Syringe 10 Ml IV PRN PRN LINE FLUSH
[2020-08-06 08:33] LABS: Calcium 9.3 mg/dL (8.4-10.2)
[2020-08-06] MEDS: INSULIN LISPRO 100 UNIT/ML VIAL 3 mL SUB-Q SCH ×4 (10:22→21:34)
[2020-08-06] MEDS: cloNIDine 0.1 MG TAB PO SCH ×2 (10:25→21:35)
[2020-08-06] MEDS: SERTRALINE 50 MG TAB PO SCH (10:25)
[2020-08-06] MEDS: amLODIPine 10 MG TAB PO SCH (10:25)
[2020-08-06] MEDS: APIXABAN 5 MG TAB PO SCH ×2 (10:25→21:35)
[2020-08-06] MEDS: carvediloL 25 MG TAB PO SCH ×2 (10:27→17:07)
--- NOTE | 2020-08-06 10:36 | Progress Note ---
Assessment and Plan Assessment and plan: --Possible dialysis access catheter placement today /tomorrow I discussed with hide tanner He informed that he is discussing with vascular for possible Vas-Cath placement Vas-Cath could not be placed yesterday due to Tool Shaper Setup Operator unavailability Possible Vas-Cath placement today followed by HD per nephro --Severe sepsis ; secondary to MRSA bacteremia Current Visit: Yes Status: Chronic Plan to address problem: Left IJ permacath removed by vascular per ID recommendations ID recommend long-term vancomycin for 4 wks TTE negative for vegetation --Severe sepsis ; secondary to UTI : POA Current Visit: Yes Status: Chronic Plan to address problem: Fever, leukocytosis, positive urine cultures ESBL s/p ertapenem,x3days, contact isolation, ID following --Hyperkalemia/insignificant 5.1 today Current Visit: Yes Status: Acute . Plan to address problem: Improved to normal -- End-stage renal disease needing dialysis Current Visit: Yes Status: Chronic Plan to address problem: On hemodialysis , MRSA sepsis ID recommended to remove HD catheter s/p removal of left IJ permacath [due to MRSA Bacteremia] Possible vascular consult, Vas-Cath placement followed by hemodialysis Per nephrology --Anemia; Hb 7.0-8.2 Current Visit: Yes Status: Chronic Plan to address problem: Multifactorial , anemia of chronic disease Secondary to erosive esophagitis , Received 1 unit of PRBC during dialysis Closely monitor H&H, transfuse additional PRBC as needed Procrit during dialysis --Erosive esophagitis Current Visit: Yes Status: Acute Plan to address problem: IV Protonix, GI consult if needed -- Hypertensive urgency/POA Current Visit: Yes Status: Acute Plan to address problem: Blood pressure moderate control Continue current antihypertensives and PRN medications --Gastroparesis Current Visit: Yes Status: Acute Plan to address problem: Symptomatic treatment Antiemetics, Reglan as needed. --Depression; Current Visit: Yes Status: Acute Plan to address problem: Denies suicidal thoughts or ideation Psych following, continue Zoloft --Medical noncompliance; Current Visit: Yes Status: Acute Plan to address problem: patient strongly counseled the importance of adhering to the treatment plan Adhere to medications diet follow-up visit hemodialysis Patient verbalized understanding -- DVT prophylaxis Current Visit: No Status: Acute Plan to address problem: On heparin and GI prophylaxis Protonix We will closely monitor the patient and adjust management as needed Patient is critically ill with severe sepsis, anemia Poor prognosis, Follow field service consultant recommendations Plan of care reviewed with the patient and his nurse 08/02: Severe sepsis MRSA bacteremia, ID recommend HD catheter removal, vascular consulted Patient is on ertapenem 08/03; MRSA bacteremia, hemodialysis catheter removed, ID recommend long-term Vanco, ESBL UTI, contact isolation 08/04; HD catheter is out, patient did not receive hemodialysis last 3 days, vascular and nephrology closely monitoring ID recommend long-term vancomycin for 4 weeks, TTE negative for vegetation Closely monitor the patient and adjust management as needed 08/05; Vas-Cath placement followed by hemodialysis per nephrology 08/06; could not have Vas-Cath placement yesterday due to unavailability of Tool Shaper Setup Operator, awaiting Vas-Cath placement followed by dialysis Plan of care reviewed with the patient and his nurse History Interval history: I have seen and examined the patient at the bedside this morning Patient's chart , current medications , consults recommendations reviewed Patient has no new complaints However concerned about his dialysis Possible Vas-Cath placement today per vascular Vital signs noted Hospitalist Physical - Constitutional Vitals: Temp Pulse Resp BP Pulse Ox 98.8 F 68 20 141/68 96 08/06/20 04:41 08/06/20 04:41 08/06/20 00:22 08/06/20 04:41 08/06/20 00:22 General appearance: Present: no acute distress, well-nourished, other (Chronically ill looking, afebrile) - EENT Eyes: Present: PERRL, EOM intact - Neck Neck: Present: supple, normal ROM - Respiratory Respiratory effort: normal Respiratory: bilateral: diminished, rales, negative: rhonchi, wheezing - Cardiovascular Rhythm: regular Heart Sounds: Present: S1 & S2 - Extremities Extremities: no ischemia, No edema - Abdominal General gastrointestinal: soft, non-tender, non-distended, normal bowel sounds - Integumentary Integumentary: Present: clear, warm - Psychiatric Psychiatric: appropriate mood/affect, cooperative - Neurologic Neurologic: CNII-XII intact, moves all extremities Results - Labs CBC & Chem 7: 08/04/20 07:18 08/06/20 07:30 Labs: Laboratory Last Values WBC 10.1 K/mm3 (4.5-11.0) 08/04/20 07:18 RBC 3.32 M/mm3 (3.65-5.03) L 08/04/20 07:18 Hgb 8.2 gm/dl (11.8-15.2) L 08/04/20 07:18 Hct 25.7 % (35.5-45.6) L 08/04/20 07:18 MCV 77 fl (84-94) L 08/04/20 07:18 MCH 25 pg (28-32) L 08/04/20 07:18 MCHC 32 % (32-34) 08/04/20 07:18 RDW 19.9 % (13.2-15.2) H 08/04/20 07:18 Plt Count 422 K/mm3 (140-440) 08/04/20 07:18 Lymph % (Auto) 6.6 % (13.4-35.0) L 08/01/20 06:32 [place] % (Auto) 9.6 % (0.0-7.3) H 08/01/20 06:32 Eos % (Auto) 0.5 % (0.0-4.3) 08/01/20 06:32 Baso % (Auto) 0.5 % (0.0-1.8) 08/01/20 06:32 Lymph # 0.8 K/mm3 (1.2-5.4) L 08/01/20 06:32 [place] # 1.2 K/mm3 (0.0-0.8) H 08/01/20 06:32 Eos # 0.1 K/mm3 (0.0-0.4) 08/01/20 06:32 Baso # 0.1 K/mm3 (0.0-0.1) 08/01/20 06:32 Seg Neutrophils % 82.8 % (40.0-70.0) H 08/01/20 06:32 Add Manual Diff Complete 08/04/20 07:18 Total Counted 100 08/04/20 07:18 Seg Neutrophils # 10.2 K/mm3 (1.8-7.7) H 08/01/20 06:32 Seg Neuts % (Manual) 70.0 % (40.0-70.0) 08/04/20 07:18 Band Neutrophils % 0 % 08/04/20 07:18 Lymphocytes % (Manual) 15.0 % (13.4-35.0) 08/04/20 07:18 Reactive Lymphs % (Man) 0 % 08/04/20 07:18 Monocytes % (Manual) 13.0 % (0.0-7.3) H 08/04/20 07:18 Eosinophils % (Manual) 1.0 % (0.0-4.3) 08/04/20 07:18 Basophils % (Manual) 0 % (0.0-1.8) 08/04/20 07:18 Metamyelocytes % 0 % 08/04/20 07:18 Myelocytes % 1.0 % 08/04/20 07:18 Promyelocytes % 0 % 08/04/20 07:18 Blast Cells % 0 % 08/04/20 07:18 Nucleated RBC % Not Reportable 08/04/20 07:18 Seg Neutrophils # Man 7.1 K/mm3 (1.8-7.7) 08/04/20 07:18 Band Neutrophils # 0.0 K/mm3 08/04/20 07:18 Lymphocytes # (Manual) 1.5 K/mm3 (1.2-5.4) 08/04/20 07:18 Abs React Lymphs (Man) 0.0 K/mm3 08/04/20 07:18 Monocytes # (Manual) 1.3 K/mm3 (0.0-0.8) H 08/04/20 07:18 Eosinophils # (Manual) 0.1 K/mm3 (0.0-0.4) 08/04/20 07:18 Basophils # (Manual) 0.0 K/mm3 (0.0-0.1) 08/04/20 07:18 Metamyelocytes # 0.0 K/mm3 08/04/20 07:18 Myelocytes # 0.1 K/mm3 08/04/20 07:18 Promyelocytes # 0.0 K/mm3 08/04/20 07:18 Blast Cells # 0.0 K/mm3 08/04/20 07:18 WBC Morphology Not Reportable 08/04/20 07:18 Hypersegmented Neuts Not Reportable 08/04/20 07:18 Hyposegmented Neuts Not Reportable 08/04/20 07:18 Hypogranular Neuts Not Reportable 08/04/20 07:18 Smudge Cells Not Reportable 08/04/20 07:18 Toxic Granulation Not Reportable 08/04/20 07:18 Toxic Vacuolation Not Reportable 08/04/20 07:18 Dohle Bodies Not Reportable 08/04/20 07:18 Pelger-Huet Anomaly Not Reportable 08/04/20 07:18 Julio Cesar Rods Not Reportable 08/04/20 07:18 Platelet Estimate Consistent w auto 08/04/20 07:18 Clumped Platelets Not Reportable 08/04/20 07:18 Plt Clumps, EDTA Not Reportable 08/04/20 07:18 Large Platelets Not Reportable 08/04/20 07:18 Giant Platelets Not Reportable 08/04/20 07:18 Platelet Satelliting Not Reportable 08/04/20 07:18 Plt Morphology Comment Not Reportable 08/04/20 07:18 RBC Morphology Not Reportable 08/04/20 07:18 Dimorphic RBCs Not Reportable 08/04/20 07:18 Polychromasia Not Reportable 08/04/20 07:18 Hypochromasia 1+ 08/04/20 07:18 Poikilocytosis Not Reportable 08/04/20 07:18 Anisocytosis Few 08/04/20 07:18 Microcytosis Not Reportable 08/04/20 07:18 Macrocytosis Not Reportable 08/04/20 07:18 Spherocytes Not Reportable 08/04/20 07:18 Pappenheimer Bodies Not Reportable 08/04/20 07:18 Sickle Cells Not Reportable 08/04/20 07:18 Target Cells Not Reportable 08/04/20 07:18 Tear Drop Cells Not Reportable 08/04/20 07:18 Ovalocytes Not Reportable 08/04/20 07:18 Helmet Cells Not Reportable 08/04/20 07:18 [place] Bodies Not Reportable 08/04/20 07:18 [place] Rings Not Reportable 08/04/20 07:18 [place] Cells Not Reportable 08/04/20 07:18 Bite Cells Not Reportable 08/04/20 07:18 Crenated Cell Not Reportable 08/04/20 07:18 Elliptocytes Not Reportable 08/04/20 07:18 Acanthocytes (Spur) Not Reportable 08/04/20 07:18 Rouleaux Not Reportable 08/04/20 07:18 Hemoglobin C Crystals Not Reportable 08/04/20 07:18 Schistocytes Not Reportable 08/04/20 07:18 Malaria parasites Not Reportable 08/04/20 07:18 David Bodies Not Reportable 08/04/20 07:18 Hem Pathologist Commnt No 08/04/20 07:18 PT 22.3 Sec. (12.2-14.9) H 07/31/20 05:36 INR 1.91 (0.87-1.13) H 07/31/20 05:36 Sodium 134 mmol/L (137-145) L 08/06/20 07:30 Potassium 5.1 mmol/L (3.6-5.0) H 08/06/20 07:30 Chloride 90.7 mmol/L (98-107) L 08/06/20 07:30 Carbon Dioxide 24 mmol/L (22-30) 08/06/20 07:30 Anion Gap 24 mmol/L 08/06/20 07:30 BUN 82 mg/dL (9-20) H 08/06/20 07:30 Creatinine 15.7 mg/dL (0.8-1.3) H 08/06/20 07:30 Estimated GFR 4 ml/min 08/06/20 07:30 BUN/Creatinine Ratio 5 % 08/06/20 07:30 Glucose 186 mg/dL (75-100) H 08/06/20 07:30 POC Glucose 207 (70-105) H 08/06/20 08:05 Calcium 9.3 mg/dL (8.4-10.2) 08/06/20 07:30 Urine Color Yellow (Yellow) 07/29/20 Unknown Urine Turbidity Slightly-cloudy (Clear) 07/29/20 Unknown Urine pH 6.0 (5.0-7.0) 07/29/20 Unknown Ur Specific [place] 1.024 (1.003-1.030) 07/29/20 Unknown Urine Protein >500 mg/dL (Negative) 07/29/20 Unknown Urine Glucose (UA) >=500 mg/dL (Negative) 07/29/20 Unknown Urine Ketones Tr mg/dL (Negative) 07/29/20 Unknown Urine Blood Sm (Negative) 07/29/20 Unknown Urine Nitrite Neg (Negative) 07/29/20 Unknown Urine Bilirubin Neg (Negative) 07/29/20 Unknown Urine Urobilinogen < 2.0 mg/dL (<2.0) 07/29/20 Unknown Ur Leukocyte Esterase Tr (Negative) 07/29/20 Unknown Urine WBC (Auto) 34.0 /HPF (0.0-6.0) H 07/29/20 Unknown Urine RBC (Auto) 9.0 /HPF (0.0-6.0) 07/29/20 Unknown U Epithel Cells (Auto) 1.0 /HPF (0-13.0) 07/29/20 Unknown Urine Bacteria (Auto) 1+ /HPF (Negative) 07/29/20 Unknown Urine Yeast (Budding) 1+ /HPF 07/29/20 Unknown Random Vancomycin 20.9 ug/mL (0-40.0) 08/06/20 07:30 Salicylates < 0.3 mg/dL (2.8-20.0) L 07/29/20 16:06 Urine Opiates Screen Presumptive negative 07/29/20 Unknown Urine Methadone Screen Presumptive negative 07/29/20 Unknown Acetaminophen 5.0 ug/mL (10.0-30.0) L 07/29/20 16:06 Ur Barbiturates Screen Presumptive negative 07/29/20 Unknown Ur Phencyclidine Scrn Presumptive negative 07/29/20 Unknown Ur Amphetamines Screen Presumptive negative 07/29/20 Unknown U Benzodiazepines Scrn Presumptive negative 07/29/20 Unknown Urine Cocaine Screen Presumptive negative 07/29/20 Unknown U Marijuana (THC) Screen Presumptive negative 07/29/20 Unknown Drugs of Abuse Note Disclamer 07/29/20 Unknown Plasma/Serum Alcohol < 0.01 % (0-0.07) 07/29/20 16:06 Hepatitis A IgM Ab Non-reactive (NonReactive) 07/30/20 05:31 Hep Bs Antigen Non-reactive (Negative) 07/30/20 05:31 Hep B Core IgM Ab Non-reactive (NonReactive) 07/30/20 05:31 Hepatitis C Antibody Non-reactive (NonReactive) 07/30/20 05:31 Blood Type O POSITIVE 07/31/20 20:30 Antibody Screen Negative 07/31/20 20:30 Crossmatch See Detail 07/31/20 20:30 Microbiology: Microbiology 07/30/20 05:31 Peripheral/Venous Blood Culture - Final Methicillin Resist S. Aureus 08/05/20 13:32 Peripheral/Venous Blood Culture - Preliminary Culture in Progress 08/05/20 13:58 Peripheral/Venous Blood Culture - Preliminary Culture in Progress 08/02/20 Unknown Vascular Cath Catheter Tip Culture - Final Methicillin Resist S. Aureus 08/02/20 14:18 Peripheral/Venous Blood Culture - Final Methicillin Resist S. Aureus 08/02/20 14:18 Peripheral/Venous Blood Culture - Final Methicillin Resist S. Aureus - Diagnostic Impressions Diagnostic Impressions: Echocardiogram 08/01/20 20:32 Transthoracic Echocardiogram Indication: Endocarditis BP: 124/68 HR: 83 Conclusions *Mild concentric left ventricular hypertrophy is observed. *Global left ventricular systolic function is normal. *The estimated ejection fraction is 50-55%. *Abnormal left ventricular diastolic filling is observed, consistent with impaired relaxation. Findings Procedure Info: The study quality is fair. Left Ventricle: The left ventricular chamber size is normal. Mild concentric left ventricular hypertrophy is observed. Global left ventricular systolic function is normal. The estimated ejection fraction is 50-55%. Abnormal left ventricular diastolic filling is observed, consistent with impaired relaxation. Left Atrium: The left atrial chamber size is normal. Right Ventricle: The right ventricular cavity size is normal. Right Atrium: The right atrial cavity size is normal. Aortic Valve: The aortic valve is trileaflet. There is no evidence of aortic regurgitation. There is no evidence of aortic stenosis. Mitral Valve: The mitral valve leaflets appear normal. There is trace of mitral regurgitation. Tricuspid Valve: There is tricuspid annular calcification. The tricuspid valve leaflets are normal. There is trace tricuspid regurgitation. Pulmonic Valve: The pulmonic valve appears normal. There is trace pulmonic regurgitation. Pericardium: A trivial pericardial effusion is visualized. Aorta: The aorta appears normal. Venous: The inferior vena cava is dilated. Measurements Chambers 2D Name Value Normal Range IVSd (2D) 1.33 cm (0.6 - 1.1) LVPWd (2D) 1.31 cm (0.6 - 1.1) LVIDd (2D) 5.03 cm (3.7 - 5.6) LVIDs (2D) 3.71 cm (2 - 3.8) LV FS (2D) 26.3 % - EF Teichholz (2D) 51.3 % - Ao root diameter (2D) 2.58 cm (2 - 3.7) Volumes/Mass Name Value Normal Range LA ESV SP 4CH (A/L) 68.16 ml - LA ESV SP 2CH (A/L) 71.81 ml - LA ESV BP (A/L) 72.16 ml - LA ESV BP (A/L) index 34.2 ml/m2 - LA ESV SP 4CH (MOD) 65.34 ml - LA ESV SP 2CH (MOD) 63.27 ml - LA ESV BP (MOD) 65.31 ml - LA ESV BP (MOD) index 30.95 ml/m2 - LV EDV SP 4CH (MOD) 185.13 ml - LV ESV SP 4CH (MOD) 79.24 ml - EF SP 4CH (MOD) 57.2 % - LV EDV SP 2CH (MOD) 191.64 ml - LV ESV SP 2CH (MOD) 112.9 ml - EF SP 2CH (MOD) 41.09 % - LV EDV BP 187.9 ml - LV ESV BP 100.66 ml - BP EF (MOD) 46.43 % - Diastolic/Systolic Function Name Value Normal Range MV E-wave Vmax 0.98 m/sec - MV deceleration time 279.48 msec - MV A-wave Vmax 0.99 m/sec - MV E:A ratio 0.99 ratio - Aortic Valve Name Value Normal Range AV Vmax 1.89 m/sec - AV VTI 32.14 cm - AV peak gradient 14.23 mmHg - AV mean gradient 7.6 mmHg - LVOT diameter 2.15 cm - LVOT Vmax 1.71 m/sec - LVOT VTI 28.31 cm - LVOT peak gradient 11.71 mmHg - LVOT mean gradient 5.52 mmHg - SV LVOT 102.46 ml - PRAVIN (continuity Vmax) 3.28 cm2 - PRAVIN (continuity VTI) 3.19 cm2 - Ascending Ao 2.59 cm - Tricuspid Valve Name Value Normal Range TR Vmax 2.67 m/sec - TR peak gradient 28 mmHg - RAP 5 mmHg - RVSP 33 mmHg - IVC diameter 2.17 cm (1.2 - 2.3) Pulmonic Valve/Qp:Qs Name Value Normal Range PV Vmax 1.4 m/sec - PV VTI 24.99 cm - PV peak gradient 7.83 mmHg - PV mean gradient 3.58 mmHg - [place] end-diastolic Vmax 1.07 m/sec - RVOT Vmax 1.01 m/sec - RVOT VTI 17.18 cm - RVOT peak gradient 4.11 mmHg - Perez/IV: Voiding Method Toilet IV Catheter Type [Left Forearm INT / Saline Lock ] IV Catheter Type [Left INT / Saline Lock External Jugular] IV Catheter Type [Left Chest] VAS Cath IV Catheter Type [Left INT / Saline Lock Antecubital] Active Medications - Current Medications Current Medications: Generic Name Dose Route Start Last Admin Trade Name Freq PRN Reason Stop Dose Admin Acetaminophen 650 mg 07/30/20 00:41 08/05/20 21:07 Tylenol PO 650 mg Q4H PRN Administration Pain MILD(1-3)/Fever >100.5/LANZA Albuterol 0.63 mg 07/30/20 07:01 Proventil IH Q4HRT PRN Shortness Of Breath Amlodipine Besylate 10 mg 07/30/20 10:00 08/06/20 10:25 Amlodipine PO 10 mg DAILY KESHIA Administration Apixaban 5 mg 07/30/20 10:00 08/06/20 10:25 Eliquis PO 5 mg BID KESHIA Administration Protocol Carvedilol 25 mg 07/30/20 08:00 08/06/20 10:27 Coreg PO 25 mg BID@0800,1700 KESHIA Administration Clonidine HCl 0.1 mg 07/30/20 10:00 08/06/20 10:25 Catapres PO 0.1 mg BID KESHIA Administration Dextrose 0 ml 07/30/20 00:41 08/01/20 21:31 D50w (25gm) Syringe IV 50 ml Q30MIN PRN Administration Hypoglycemia Protocol Epoetin Wale 20,000 unit 08/01/20 14:40 Procrit IV BRENDAN PRN hemodialysis Hydralazine HCl 100 mg 07/30/20 14:00 08/06/20 07:28 Apresoline PO Not Given Q8HR KESHIA Sodium Chloride 100 mls @ 999 mls/hr 08/01/20 09:00 Nacl 0.9% IV BRENDAN PRN Hypotension Insulin Human Lispro 0 unit 07/30/20 07:30 08/06/20 10:22 Humalog SUB-Q Not Given ACHS KESHIA Protocol Magnesium Hydroxide 30 ml 07/30/20 00:41 Milk Of Magnesia PO Q4H PRN Constipation Ondansetron HCl 4 mg 07/30/20 00:41 07/30/20 22:01 Zofran IV 4 mg Q8H PRN Administration Nausea And Vomiting Pantoprazole Sodium 40 mg 07/30/20 22:00 08/05/20 21:08 Protonix PO 40 mg QHS KESHIA Administration Sertraline HCl 50 mg 07/30/20 12:00 08/06/20 10:25 Zoloft PO 50 mg DAILY KESHIA Administration Sodium Chloride 10 ml 07/30/20 10:00 08/06/20 10:26 Sodium Chloride Flush Syringe 10 Ml IV 10 ml BID KESHIA Administration Sodium Chloride 10 ml 07/30/20 00:41 Sodium Chloride Flush Syringe 10 Ml IV PRN PRN LINE FLUSH Nutrition/Malnutrition Assess - Dietary Evaluation Nutrition/Malnutrition Findings: Nutrition Notes Start: 07/30/20 10:57 Freq: Status: Active Protocol: Document 08/04/20 15:21 AL (Rec: 08/04/20 16:00 AL [id number]) Co-Sign 08/04/20 15:21 NHALL Nutrition Notes Initial or Follow up Brief Note Current Diagnosis CKD (stage V CKD),Diabetes, Hypertension Other Pertinent Diagnosis ESRD - HD, Abd pain, hx of erosive esophagitis, gastroparesis Current Diet Renal/Consistent CHO Labs/Tests Na 134 BUN 65 Cr 11.8 Glu 148 Pertinent Medications Reviewed Height 6 ft 3 in Weight 84.2 kg [place] Body Weight (kg) 89.09 BMI 23.2 Weight Status Appropriate Subjective/Other Information F/U for stable intakes. RN reports that pt did not eat at all this morning because he did not want to. RN reports pt consume cranberry juice. Per chart, pt consumed 25% of his lunch. Burn Absent Trauma Absent Current % PO Poor (25-49%) Minimum of two criteria No Interpretation of Weight Loss (severe) >2% in 1 week #1 Nutrition Diagnosis Inadequate oral intake As Evidenced by Signs and Symptoms pt only consuming 25% of lunch Diagnosis Progress(for reassessment Worsened documentation) Is patient on ventilator? No Is Patient Ambulatory and/or Out of Bed Yes REE-(Hemet-St. Jeor-ambulatory/OOB) [ [id number] [id number]] Calculation Used for Recommendations Hemet-St Jeor Additional Notes Pro: >101g (>1.2g/kg) Fluid: 1ml/kcal or per MD Nutrition Intervention Change Diet Order: continue Goal #1 Meet at least 80% of protein and energy needs via PO intakes Anticipated Discharge Needs: Renal, Consistent CHO Follow-Up By: 08/09/20 Additional Comments F/U for stable intakes
--- NOTE | 2020-08-06 14:10 | Event Note ---
Date: 08/06/20 34 year old male with MRSA bacteremia and permcath infection. No SOB. Reviewed BMP which demonstrated no critical labs with K 5.1 and BUN 82. Recent BCx 08/05/2020 still pending. Hopefully can place permcath on saturday and provide line holiday until then as patient had MRSA bacteremia.
[2020-08-06] MEDS: PANTOPRAZOLE 40 MG TAB PO SCH (21:35)
[2020-08-07] MEDS: hydrALAZINE 100 MG TAB PO SCH ×3 (05:19→21:48)
--- NOTE | 2020-08-07 09:47 | Progress Note ---
Assessment and Plan Cultures: Blood culture 07/30/2020 MRSA 3 of 4 bottles. Urine culture 07/29/2020 ESBL E coli. Blood culture 07/31/2020 MRSA 3 of 4 bottles Blood culture 08/02/2020 MRSA Cath tip culture 08/02/2020 MRSA Blood culture 08/05/2020 no growth today Assessment: 34 years old male with history of end-stage renal disease on hemodialysis via left IJ PermCath, noncompliance, hypertension, diabetes mellitus, gastric ulcer, recurrent ulcerative esophagitis, noncompliance, known to our service, recent ESBL Klebsiella bacteremia secondary to PermCath infectio, readmitted on 07/29/2020 due to nausea and vomiting for several days, patient missed dialysis twice: #Sepsis: present on admission with fever, leukocytosis, tachycardia, leukocytosis; source MRSA bacteremia/ESBL E coli UTI. #MRSA bacteremia: likely secondary to hemodialysis access infection. Persistent bacteremia. Patient missed 3 hemodialysis sections, dressing was no changed for almost 10 days. Left IJ hemodialysis catheter removed. Transthoracic echo no evidence of vegetation. Hemodialysis catheter removed on 08/03/2020. #ESBL E. coli UTI: pt makes urine. Urine culture grew E. coli UTI. Treated with ertapenem x3 days #History of Recent ESBL Klebsiella bacteremia: Had right IJ PermCath removal on 06/24/2020 with resolution of bacteremia. Got about 6 days of IV Meropenem via midline after that but his line fell out 6 days post discharge. He never contacted our office, states he came to the ER here (no record of this in the EMR) and went home. He has been doing well without abx for more than 1 week. Given his issues with non compliance and no evidence of sepsis, I would not restart IV abx. More importantly, he had source control during previous admission. #Diabetes mellitus: Uncontrolled. #Anemia: Chronic. #Hyperkalemia: Patient missed hemodialysis. #Hypertension: Uncontrolled. Better. #ESRD on HD via left chest hemodialysis access #Noncompliance Recs: -Patient to have PermCath placement on Saturday as long as blood culture from 08/05/2020 remains negative -Vascular on board appreciate input -Psych consult given depressive mood and multiple readmissions/non compliance -Continue vancomycin with PK consult -Education about non compliance -Anticipate to discharge on vancomycin IV 1g after each hemodialysis for 4 weeks until 09/02/2020. Sent to case resolution specialist. Discussed with renal Dr. José Miguel aleman on Saturday Will follow. Chloe Fitch MD Infectious Diseases Development Officer [facility] ([facility]) M [phone] O [phone] Subjective Date of service: 08/07/20 Principal diagnosis: Hyperkalemia, end-stage renal disease, vomiting Interval history: Remains afebrile, denies pain. Denies shortness of breath, cough, nausea vomiting or diarrhea. Better mood. Objective - Exam Narrative Exam: General appearance: Alert in NAD in no acute distress Eyes: anicteric sclerae, moist conjunctivae; no lid-lag; PERRLA HENT: Atraumatic; oropharynx clear Lungs: CTA CV: RRR no murmur Abdomen: Soft, non-tender Extremities: no edema, no cyanosis Skin: No rash. Psych: Flat affect Neuro: alert and oriented x 3. Moving all extermities - Constitutional Vitals: Vital Signs Temp Pulse Resp BP Pulse Ox 99.7 F H 78 18 123/59 90 08/07/20 07:19 08/07/20 07:19 08/07/20 07:19 08/07/20 07:19 08/07/20 07:19 Temperature -Last 24 Hours Temperature 99.7 F Temperature 100.6 F Temperature 100.5 F Temperature 99.8 F Temperature 98.2 F - Labs CBC & Chem 7: 08/04/20 07:18 08/06/20 07:30 Labs: Abnormal lab results 08/06/20 08/06/20 08/06/20 Range/Units 11:39 17:34 21:38 POC Glucose 215 H 120 H 187 H (70-105) 08/07/20 Range/Units 07:37 POC Glucose 158 H (70-105)
[2020-08-07] MEDS: APIXABAN 5 MG TAB PO SCH ×2 (10:12→21:48)
[2020-08-07] MEDS: amLODIPine 10 MG TAB PO SCH (10:13)
[2020-08-07] MEDS: cloNIDine 0.1 MG TAB PO SCH ×2 (10:13→21:47)
[2020-08-07] MEDS: carvediloL 25 MG TAB PO SCH ×2 (10:13→17:52)
[2020-08-07] MEDS: SERTRALINE 50 MG TAB PO SCH (10:13)
[2020-08-07] MEDS: INSULIN LISPRO 100 UNIT/ML VIAL 3 mL SUB-Q SCH ×3 (10:13→17:53)
--- NOTE | 2020-08-07 10:45 | Progress Note ---
Assessment and Plan Assessment and plan: --Possible permacath placement tomorrow Current Visit: Yes Status: Chronic Plan to address problem: Permacath placement tomorrow per IR/vascular Followed by hemodialysis, n.p.o. except meds midnight --Severe sepsis ; secondary to MRSA bacteremia Current Visit: Yes Status: Chronic Plan to address problem: Left IJ permacath removed , new permacath placement tomorrow ID recommend long-term vancomycin for 4 wks TTE negative for vegetation --Severe sepsis ; secondary to UTI : POA Current Visit: Yes Status: Chronic Plan to address problem: Fever, leukocytosis, positive urine cultures ESBL s/p ertapenem,x3days, contact isolation, ID following --Hyperkalemia Current Visit: Yes Status: Acute . Plan to address problem: Improved , HD per schedule -- End-stage renal disease needing dialysis Current Visit: Yes Status: Chronic Plan to address problem: On hemodialysis , MRSA sepsis ID recommended to remove HD catheter s/p removal of left IJ permacath [due to MRSA Bacteremia] New permacath placement tomorrow 08/08/2020 Followed by hemodialysis --Anemia; Hb 7.0-8.2 Current Visit: Yes Status: Chronic Plan to address problem: Multifactorial , anemia of chronic disease Secondary to erosive esophagitis , Received 1 unit of PRBC during dialysis Closely monitor H&H, transfuse additional PRBC as needed Procrit during dialysis --Erosive esophagitis Current Visit: Yes Status: Acute Plan to address problem: IV Protonix, GI consult if needed -- Hypertensive urgency/POA Current Visit: Yes Status: Acute Plan to address problem: Blood pressure moderate control Continue current antihypertensives and PRN medications --Gastroparesis Current Visit: Yes Status: Acute Plan to address problem: Symptomatic treatment Antiemetics, Reglan as needed. --Depression; Current Visit: Yes Status: Acute Plan to address problem: Denies suicidal thoughts or ideation Psych following, continue Zoloft --Medical noncompliance; Current Visit: Yes Status: Acute Plan to address problem: patient strongly counseled the importance of adhering to the treatment plan Adhere to medications diet follow-up visit hemodialysis Patient verbalized understanding -- DVT prophylaxis Current Visit: No Status: Acute Plan to address problem: On heparin and GI prophylaxis Protonix We will closely monitor the patient and adjust management as needed Patient is critically ill with severe sepsis, anemia Poor prognosis, Follow networks software consultant recommendations Plan of care reviewed with the patient and his nurse 08/02: Severe sepsis MRSA bacteremia, ID recommend HD catheter removal, vascular consulted Patient is on ertapenem 08/03; MRSA bacteremia, hemodialysis catheter removed, ID recommend long-term Vanco, ESBL UTI, contact isolation 08/04; HD catheter is out, patient did not receive hemodialysis last 3 days, vascular and nephrology closely monitoring ID recommend long-term vancomycin for 4 weeks, TTE negative for vegetation Closely monitor the patient and adjust management as needed 08/05; Vas-Cath placement followed by hemodialysis per nephrology 08/06; could not have Vas-Cath placement yesterday due to unavailability of Fulfillment Specialist, awaiting Vas-Cath placement followed by dialysis 05/07; new permacath placement tomorrow per IR/vascular followed by dialysis Plan of care reviewed with the patient and his nurse History Interval history: I have seen and examined the patient at the bedside Patient's chart and medications reviewed Patient feels slightly better no new complaints Vital signs noted Hospitalist Physical - Constitutional Vitals: Temp Pulse Resp BP Pulse Ox 99.7 F H 78 18 123/59 90 08/07/20 07:19 08/07/20 07:19 08/07/20 07:19 08/07/20 07:19 08/07/20 07:19 General appearance: Present: no acute distress, well-nourished, other (Chronic ally ill looking, afebrile) - EENT Eyes: Present: PERRL, EOM intact - Neck Neck: Present: supple, normal ROM - Respiratory Respiratory effort: normal Respiratory: bilateral: diminished, rales, negative: rhonchi, wheezing - Cardiovascular Rhythm: regular Heart Sounds: Present: S1 & S2 - Extremities Extremities: no ischemia, No edema - Abdominal General gastrointestinal: soft, non-tender, non-distended, normal bowel sounds - Integumentary Integumentary: Present: clear, warm - Psychiatric Psychiatric: appropriate mood/affect, cooperative - Neurologic Neurologic: CNII-XII intact Results - Labs CBC & Chem 7: 08/04/20 07:18 08/07/20 10:30 Labs: Laboratory Last Values WBC 10.1 K/mm3 (4.5-11.0) 08/04/20 07:18 RBC 3.32 M/mm3 (3.65-5.03) L 08/04/20 07:18 Hgb 8.2 gm/dl (11.8-15.2) L 08/04/20 07:18 Hct 25.7 % (35.5-45.6) L 08/04/20 07:18 MCV 77 fl (84-94) L 08/04/20 07:18 MCH 25 pg (28-32) L 08/04/20 07:18 MCHC 32 % (32-34) 08/04/20 07:18 RDW 19.9 % (13.2-15.2) H 08/04/20 07:18 Plt Count 422 K/mm3 (140-440) 08/04/20 07:18 Lymph % (Auto) 6.6 % (13.4-35.0) L 08/01/20 06:32 Sharkey % (Auto) 9.6 % (0.0-7.3) H 08/01/20 06:32 Eos % (Auto) 0.5 % (0.0-4.3) 08/01/20 06:32 Baso % (Auto) 0.5 % (0.0-1.8) 08/01/20 06:32 Lymph # 0.8 K/mm3 (1.2-5.4) L 08/01/20 06:32 Sharkey # 1.2 K/mm3 (0.0-0.8) H 08/01/20 06:32 Eos # 0.1 K/mm3 (0.0-0.4) 08/01/20 06:32 Baso # 0.1 K/mm3 (0.0-0.1) 08/01/20 06:32 Seg Neutrophils % 82.8 % (40.0-70.0) H 08/01/20 06:32 Add Manual Diff Complete 08/04/20 07:18 Total Counted 100 08/04/20 07:18 Seg Neutrophils # 10.2 K/mm3 (1.8-7.7) H 08/01/20 06:32 Seg Neuts % (Manual) 70.0 % (40.0-70.0) 08/04/20 07:18 Band Neutrophils % 0 % 08/04/20 07:18 Lymphocytes % (Manual) 15.0 % (13.4-35.0) 08/04/20 07:18 Reactive Lymphs % (Man) 0 % 08/04/20 07:18 Monocytes % (Manual) 13.0 % (0.0-7.3) H 08/04/20 07:18 Eosinophils % (Manual) 1.0 % (0.0-4.3) 08/04/20 07:18 Basophils % (Manual) 0 % (0.0-1.8) 08/04/20 07:18 Metamyelocytes % 0 % 08/04/20 07:18 Myelocytes % 1.0 % 08/04/20 07:18 Promyelocytes % 0 % 08/04/20 07:18 Blast Cells % 0 % 08/04/20 07:18 Nucleated RBC % Not Reportable 08/04/20 07:18 Seg Neutrophils # Man 7.1 K/mm3 (1.8-7.7) 08/04/20 07:18 Band Neutrophils # 0.0 K/mm3 08/04/20 07:18 Lymphocytes # (Manual) 1.5 K/mm3 (1.2-5.4) 08/04/20 07:18 Abs React Lymphs (Man) 0.0 K/mm3 08/04/20 07:18 Monocytes # (Manual) 1.3 K/mm3 (0.0-0.8) H 08/04/20 07:18 Eosinophils # (Manual) 0.1 K/mm3 (0.0-0.4) 08/04/20 07:18 Basophils # (Manual) 0.0 K/mm3 (0.0-0.1) 08/04/20 07:18 Metamyelocytes # 0.0 K/mm3 08/04/20 07:18 Myelocytes # 0.1 K/mm3 08/04/20 07:18 Promyelocytes # 0.0 K/mm3 08/04/20 07:18 Blast Cells # 0.0 K/mm3 08/04/20 07:18 WBC Morphology Not Reportable 08/04/20 07:18 Hypersegmented Neuts Not Reportable 08/04/20 07:18 Hyposegmented Neuts Not Reportable 08/04/20 07:18 Hypogranular Neuts Not Reportable 08/04/20 07:18 Smudge Cells Not Reportable 08/04/20 07:18 Toxic Granulation Not Reportable 08/04/20 07:18 Toxic Vacuolation Not Reportable 08/04/20 07:18 Dohle Bodies Not Reportable 08/04/20 07:18 Pelger-Huet Anomaly Not Reportable 08/04/20 07:18 Julio Cesar Rods Not Reportable 08/04/20 07:18 Platelet Estimate Consistent w auto 08/04/20 07:18 Clumped Platelets Not Reportable 08/04/20 07:18 Plt Clumps, EDTA Not Reportable 08/04/20 07:18 Large Platelets Not Reportable 08/04/20 07:18 Giant Platelets Not Reportable 08/04/20 07:18 Platelet Satelliting Not Reportable 08/04/20 07:18 Plt Morphology Comment Not Reportable 08/04/20 07:18 RBC Morphology Not Reportable 08/04/20 07:18 Dimorphic RBCs Not Reportable 08/04/20 07:18 Polychromasia Not Reportable 08/04/20 07:18 Hypochromasia 1+ 08/04/20 07:18 Poikilocytosis Not Reportable 08/04/20 07:18 Anisocytosis Few 08/04/20 07:18 Microcytosis Not Reportable 08/04/20 07:18 Macrocytosis Not Reportable 08/04/20 07:18 Spherocytes Not Reportable 08/04/20 07:18 Pappenheimer Bodies Not Reportable 08/04/20 07:18 Sickle Cells Not Reportable 08/04/20 07:18 Target Cells Not Reportable 08/04/20 07:18 Tear Drop Cells Not Reportable 08/04/20 07:18 Ovalocytes Not Reportable 08/04/20 07:18 Helmet Cells Not Reportable 08/04/20 07:18 [place] Bodies Not Reportable 08/04/20 07:18 Sterling Rings Not Reportable 08/04/20 07:18 [place] Cells Not Reportable 08/04/20 07:18 Bite Cells Not Reportable 08/04/20 07:18 Crenated Cell Not Reportable 08/04/20 07:18 Elliptocytes Not Reportable 08/04/20 07:18 Acanthocytes (Spur) Not Reportable 08/04/20 07:18 Rouleaux Not Reportable 08/04/20 07:18 Hemoglobin C Crystals Not Reportable 08/04/20 07:18 Schistocytes Not Reportable 08/04/20 07:18 Malaria parasites Not Reportable 08/04/20 07:18 David Bodies Not Reportable 08/04/20 07:18 Hem Pathologist Commnt No 08/04/20 07:18 PT 22.3 Sec. (12.2-14.9) H 07/31/20 05:36 INR 1.91 (0.87-1.13) H 07/31/20 05:36 Sodium 134 mmol/L (137-145) L 08/06/20 07:30 Potassium 5.1 mmol/L (3.6-5.0) H 08/06/20 07:30 Chloride 90.7 mmol/L (98-107) L 08/06/20 07:30 Carbon Dioxide 24 mmol/L (22-30) 08/06/20 07:30 Anion Gap 24 mmol/L 08/06/20 07:30 BUN 82 mg/dL (9-20) H 08/06/20 07:30 Creatinine 15.7 mg/dL (0.8-1.3) H 08/06/20 07:30 Estimated GFR 4 ml/min 08/06/20 07:30 BUN/Creatinine Ratio 5 % 08/06/20 07:30 Glucose 186 mg/dL (75-100) H 08/06/20 07:30 POC Glucose 158 (70-105) H 08/07/20 07:37 Calcium 9.3 mg/dL (8.4-10.2) 08/06/20 07:30 Urine Color Yellow (Yellow) 07/29/20 Unknown Urine Turbidity Slightly-cloudy (Clear) 07/29/20 Unknown Urine pH 6.0 (5.0-7.0) 07/29/20 Unknown Ur Specific V[place] 1.024 (1.003-1.030) 07/29/20 Unknown Urine Protein >500 mg/dL (Negative) 07/29/20 Unknown Urine Glucose (UA) >=500 mg/dL (Negative) 07/29/20 Unknown Urine Ketones Tr mg/dL (Negative) 07/29/20 Unknown Urine Blood Sm (Negative) 07/29/20 Unknown Urine Nitrite Neg (Negative) 07/29/20 Unknown Urine Bilirubin Neg (Negative) 07/29/20 Unknown Urine Urobilinogen < 2.0 mg/dL (<2.0) 07/29/20 Unknown Ur Leukocyte Esterase Tr (Negative) 07/29/20 Unknown Urine WBC (Auto) 34.0 /HPF (0.0-6.0) H 07/29/20 Unknown Urine RBC (Auto) 9.0 /HPF (0.0-6.0) 07/29/20 Unknown U Epithel Cells (Auto) 1.0 /HPF (0-13.0) 07/29/20 Unknown Urine Bacteria (Auto) 1+ /HPF (Negative) 07/29/20 Unknown Urine Yeast (Budding) 1+ /HPF 07/29/20 Unknown Random Vancomycin 20.9 ug/mL (0-40.0) 08/06/20 07:30 Salicylates < 0.3 mg/dL (2.8-20.0) L 07/29/20 16:06 Urine Opiates Screen Presumptive negative 07/29/20 Unknown Urine Methadone Screen Presumptive negative 07/29/20 Unknown Acetaminophen 5.0 ug/mL (10.0-30.0) L 07/29/20 16:06 Ur Barbiturates Screen Presumptive negative 07/29/20 Unknown Ur Phencyclidine Scrn Presumptive negative 07/29/20 Unknown Ur Amphetamines Screen Presumptive negative 07/29/20 Unknown U Benzodiazepines Scrn Presumptive negative 07/29/20 Unknown Urine Cocaine Screen Presumptive negative 07/29/20 Unknown U Marijuana (THC) Screen Presumptive negative 07/29/20 Unknown Drugs of Abuse Note Disclamer 07/29/20 Unknown Plasma/Serum Alcohol < 0.01 % (0-0.07) 07/29/20 16:06 Hepatitis A IgM Ab Non-reactive (NonReactive) 07/30/20 05:31 Hep Bs Antigen Non-reactive (Negative) 07/30/20 05:31 Hep B Core IgM Ab Non-reactive (NonReactive) 07/30/20 05:31 Hepatitis C Antibody Non-reactive (NonReactive) 07/30/20 05:31 Blood Type O POSITIVE 07/31/20 20:30 Antibody Screen Negative 07/31/20 20:30 Crossmatch See Detail 07/31/20 20:30 Microbiology: Microbiology 08/05/20 13:32 Peripheral/Venous Blood Culture - Preliminary NO GROWTH AFTER 24 HOURS 08/05/20 13:58 Peripheral/Venous Blood Culture - Preliminary NO GROWTH AFTER 24 HOURS 08/02/20 14:18 Peripheral/Venous Blood Culture - Final Methicillin Resist S. Aureus 08/02/20 14:18 Peripheral/Venous Blood Culture - Final Methicillin Resist S. Aureus - Diagnostic Impressions Diagnostic Impressions: Echocardiogram 08/01/20 20:32 Transthoracic Echocardiogram Indication: Endocarditis BP: 124/68 HR: 83 Conclusions *Mild concentric left ventricular hypertrophy is observed. *Global left ventricular systolic function is normal. *The estimated ejection fraction is 50-55%. *Abnormal left ventricular diastolic filling is observed, consistent with impaired relaxation. Findings Procedure Info: The study quality is fair. Left Ventricle: The left ventricular chamber size is normal. Mild concentric left ventricular hypertrophy is observed. Global left ventricular systolic function is normal. The estimated ejection fraction is 50-55%. Abnormal left ventricular diastolic filling is observed, consistent with impaired relaxation. Left Atrium: The left atrial chamber size is normal. Right Ventricle: The right ventricular cavity size is normal. Right Atrium: The right atrial cavity size is normal. Aortic Valve: The aortic valve is trileaflet. There is no evidence of aortic regurgitation. There is no evidence of aortic stenosis. Mitral Valve: The mitral valve leaflets appear normal. There is trace of mitral regurgitation. Tricuspid Valve: There is tricuspid annular calcification. The tricuspid valve leaflets are normal. There is trace tricuspid regurgitation. Pulmonic Valve: The pulmonic valve appears normal. There is trace pulmonic regurgitation. Pericardium: A trivial pericardial effusion is visualized. Aorta: The aorta appears normal. Venous: The inferior vena cava is dilated. Measurements Chambers 2D Name Value Normal Range IVSd (2D) 1.33 cm (0.6 - 1.1) LVPWd (2D) 1.31 cm (0.6 - 1.1) LVIDd (2D) 5.03 cm (3.7 - 5.6) LVIDs (2D) 3.71 cm (2 - 3.8) LV FS (2D) 26.3 % - EF Teichholz (2D) 51.3 % - Ao root diameter (2D) 2.58 cm (2 - 3.7) Volumes/Mass Name Value Normal Range LA ESV SP 4CH (A/L) 68.16 ml - LA ESV SP 2CH (A/L) 71.81 ml - LA ESV BP (A/L) 72.16 ml - LA ESV BP (A/L) index 34.2 ml/m2 - LA ESV SP 4CH (MOD) 65.34 ml - LA ESV SP 2CH (MOD) 63.27 ml - LA ESV BP (MOD) 65.31 ml - LA ESV BP (MOD) index 30.95 ml/m2 - LV EDV SP 4CH (MOD) 185.13 ml - LV ESV SP 4CH (MOD) 79.24 ml - EF SP 4CH (MOD) 57.2 % - LV EDV SP 2CH (MOD) 191.64 ml - LV ESV SP 2CH (MOD) 112.9 ml - EF SP 2CH (MOD) 41.09 % - LV EDV BP 187.9 ml - LV ESV BP 100.66 ml - BP EF (MOD) 46.43 % - Diastolic/Systolic Function Name Value Normal Range MV E-wave Vmax 0.98 m/sec - MV deceleration time 279.48 msec - MV A-wave Vmax 0.99 m/sec - MV E:A ratio 0.99 ratio - Aortic Valve Name Value Normal Range AV Vmax 1.89 m/sec - AV VTI 32.14 cm - AV peak gradient 14.23 mmHg - AV mean gradient 7.6 mmHg - LVOT diameter 2.15 cm - LVOT Vmax 1.71 m/sec - LVOT VTI 28.31 cm - LVOT peak gradient 11.71 mmHg - LVOT mean gradient 5.52 mmHg - SV LVOT 102.46 ml - PRAVIN (continuity Vmax) 3.28 cm2 - PRAVIN (continuity VTI) 3.19 cm2 - Ascending Ao 2.59 cm - Tricuspid Valve Name Value Normal Range TR Vmax 2.67 m/sec - TR peak gradient 28 mmHg - RAP 5 mmHg - RVSP 33 mmHg - IVC diameter 2.17 cm (1.2 - 2.3) Pulmonic Valve/Qp:Qs Name Value Normal Range PV Vmax 1.4 m/sec - PV VTI 24.99 cm - PV peak gradient 7.83 mmHg - PV mean gradient 3.58 mmHg - AZ end-diastolic Vmax 1.07 m/sec - RVOT Vmax 1.01 m/sec - RVOT VTI 17.18 cm - RVOT peak gradient 4.11 mmHg - Perez/IV: Voiding Method Toilet IV Catheter Type [Left Forearm INT / Saline Lock ] IV Catheter Type [Left INT / Saline Lock External Jugular] IV Catheter Type [Left Chest] VAS Cath IV Catheter Type [Left INT / Saline Lock Antecubital] Active Medications - Current Medications Current Medications: Generic Name Dose Route Start Last Admin Trade Name Freq PRN Reason Stop Dose Admin Acetaminophen 650 mg 07/30/20 00:41 08/05/20 21:07 Tylenol PO 650 mg Q4H PRN Administration Pain MILD(1-3)/Fever >100.5/LANZA Albuterol 0.63 mg 07/30/20 07:01 Proventil IH Q4HRT PRN Shortness Of Breath Amlodipine Besylate 10 mg 07/30/20 10:00 08/07/20 10:13 Amlodipine PO 10 mg DAILY KESHIA Administration Apixaban 5 mg 07/30/20 10:00 08/07/20 10:12 Eliquis PO 5 mg BID KESHIA Administration Protocol Carvedilol 25 mg 07/30/20 08:00 08/07/20 10:13 Coreg PO 25 mg BID@0800,1700 KESHIA Administration Clonidine HCl 0.1 mg 07/30/20 10:00 08/07/20 10:13 Catapres PO 0.1 mg BID KESHIA Administration Dextrose 0 ml 07/30/20 00:41 08/01/20 21:31 D50w (25gm) Syringe IV 50 ml Q30MIN PRN Administration Hypoglycemia Protocol Epoetin Wale 20,000 unit 08/01/20 14:40 Procrit IV BRENDAN PRN hemodialysis Hydralazine HCl 100 mg 07/30/20 14:00 08/07/20 05:19 Apresoline PO 100 mg Q8HR KESHIA Administration Sodium Chloride 100 mls @ 999 mls/hr 08/01/20 09:00 Nacl 0.9% IV BRENDAN PRN Hypotension Insulin Human Lispro 0 unit 07/30/20 07:30 08/07/20 10:13 Humalog SUB-Q 2 unit ACHS KESHIA Administration Protocol Magnesium Hydroxide 30 ml 07/30/20 00:41 Milk Of Magnesia PO Q4H PRN Constipation Ondansetron HCl 4 mg 07/30/20 00:41 07/30/20 22:01 Zofran IV 4 mg Q8H PRN Administration Nausea And Vomiting Pantoprazole Sodium 40 mg 07/30/20 22:00 08/06/20 21:35 Protonix PO 40 mg QHS KESHIA Administration Sertraline HCl 50 mg 07/30/20 12:00 08/07/20 10:13 Zoloft PO 50 mg DAILY KESHIA Administration Sodium Chloride 10 ml 07/30/20 10:00 08/07/20 10:13 Sodium Chloride Flush Syringe 10 Ml IV 10 ml BID KESHIA Administration Sodium Chloride 10 ml 07/30/20 00:41 Sodium Chloride Flush Syringe 10 Ml IV PRN PRN LINE FLUSH Nutrition/Malnutrition Assess - Dietary Evaluation Nutrition/Malnutrition Findings: Nutrition Notes Start: 07/30/20 10:57 Freq: Status: Active Protocol: Document 08/04/20 15:21 AL (Rec: 08/04/20 16:00 AL [id number]) Co-Sign 08/04/20 15:21 NHALL Nutrition Notes Initial or Follow up Brief Note Current Diagnosis CKD (stage V CKD),Diabetes, Hypertension Other Pertinent Diagnosis ESRD - HD, Abd pain, hx of erosive esophagitis, gastroparesis Current Diet Renal/Consistent CHO Labs/Tests Na 134 BUN 65 Cr 11.8 Glu 148 Pertinent Medications Reviewed Height 6 ft 3 in Weight 84.2 kg [place] Body Weight (kg) 89.09 BMI 23.2 Weight Status Appropriate Subjective/Other Information F/U for stable intakes. RN reports that pt did not eat at all this morning because he did not want to. RN reports pt consume cranberry juice. Per chart, pt consumed 25% of his lunch. Burn Absent Trauma Absent Current % PO Poor (25-49%) Minimum of two criteria No Interpretation of Weight Loss (severe) >2% in 1 week #1 Nutrition Diagnosis Inadequate oral intake As Evidenced by Signs and Symptoms pt only consuming 25% of lunch Diagnosis Progress(for reassessment Worsened documentation) Is patient on ventilator? No Is Patient Ambulatory and/or Out of Bed Yes REE-([facility]-ambulatory/OOB) [ [id number] [id number]] Calculation Used for Recommendations [facility] Additional Notes Pro: >101g (>1.2g/kg) Fluid: 1ml/kcal or per MD Nutrition Intervention Change Diet Order: continue Goal #1 Meet at least 80% of protein and energy needs via PO intakes Anticipated Discharge Needs: Renal, Consistent CHO Follow-Up By: 08/09/20 Additional Comments F/U for stable intakes
[2020-08-07 11:53] LABS: Calcium 9.1 mg/dL (8.4-10.2)
--- NOTE | 2020-08-07 13:04 | Progress Note ---
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 Benítez on 08/03/20 for line holiday due to MRSA Bacteremia - discussed with ID and vascular, planning permcath tomorrow if blood cultures remain negative, vascath was not done yesterday to avoid multiple procedures, so far patient is breathing comfortable without uremic sx - HD today for clearance and volume removal tomorrow -Fluid restriction of 1 liter per day -Anemia-On Epogen 20,000 units with HD -Renally dose medications -Strict I/Os monitoring -Obtain daily weights -Assess dialysis needs daily Rio Gallo MD [phone] Subjective Date of service: 08/07/20 Principal diagnosis: Hyperkalemia, end-stage renal disease, vomiting Interval history: denies SHOB, nausea, vomiting. Objective - Vital Signs Vital signs: Vital Signs - 12hr 08/07/20 08/07/20 05:00 07:19 Temperature 100.6 F H 99.7 F H Pulse Rate 84 78 Respiratory 18 18 Rate Blood Pressure 135/63 123/59 O2 Sat by Pulse 96 90 Oximetry - General Appearance General appearance: well-developed, well-nourished, appears stated age EENT: ATNC, PERRL, mucous membranes moist Neck: no JVD, no carotid bruit Respiratory: Present: Clear to Ascultation. Absent: Rales, Ronchi Cardiology: regular, S1S2 Gastrointestinal: normoactive bowel sounds, no absent bowel sounds, no tenderness, no distended, no masses Integumentary: no rash, warm and dry Neurologic: no focal deficit, no asterixis, alert and oriented x3 Musculoskeletal: other (no edema in BLE) Psychiatric: mood/affect appropriate, cooperative - Lab 08/04/20 07:18 08/07/20 10:30 Most recent lab results Calcium 9.1 mg/dL (8.4-10.2) 08/07/20 10:30 Medications & Allergies - Medications Allergies/Adverse Reactions: Allergies No Known Allergies Allergy (Verified 07/20/20 15:05) Home Medications: Home Medications Medication Instructions Recorded Confirmed Last Taken Type Albuterol Sulfate [Albuterol 0.63% 0.63 mg IH Q4HR PRN #50 04/17/20 07/30/20 05/30/20 Rx NEBS] Lispro Insulin [HumaLOG] 5 unit SQ AC #1 vial 04/17/20 07/30/20 06/15/20 Rx Apixaban [Eliquis] 1 tab PO BID #60 tablet 07/17/20 07/30/20 07/22/20 08:00 Rx Insulin Glargine [Lantus VIAL] 10 units SUB-Q QHS units 07/17/20 07/30/20 07/21/20 20:00 Rx Metoclopramide [Reglan TAB] 5 mg PO ACHS PRN #120 tablet 07/17/20 07/30/20 07/22/20 08:00 Rx Pantoprazole [Protonix TAB] 40 mg PO DAILY #60 tablet 07/17/20 07/30/20 07/22/20 08:00 Rx amLODIPine 10 mg PO DAILY #30 tablet 07/17/20 07/30/20 07/22/20 08:00 Rx carvediloL [Coreg] 25 mg PO BID 30 Days #60 tablet 07/17/20 07/30/20 07/22/20 08:00 Rx cloNIDine [Catapres] 0.1 mg PO BID #60 tablet 07/17/20 07/30/20 07/22/20 08:00 Rx hydrALAZINE [Apresoline TAB] 100 mg PO Q8HR #90 tab 07/17/20 07/30/20 07/22/20 08:00 Rx Active Medications: Generic Name Dose Route Start Last Admin Trade Name Freq PRN Reason Stop Dose Admin Acetaminophen 650 mg 07/30/20 00:41 08/05/20 21:07 Tylenol PO 650 mg Q4H PRN Administration Pain MILD(1-3)/Fever >100.5/LANZA Albuterol 0.63 mg 07/30/20 07:01 Proventil IH Q4HRT PRN Shortness Of Breath Amlodipine Besylate 10 mg 07/30/20 10:00 08/07/20 10:13 Amlodipine PO 10 mg DAILY KESHIA Administration Apixaban 5 mg 07/30/20 10:00 08/07/20 10:12 Eliquis PO 5 mg BID KESHIA Administration Protocol Carvedilol 25 mg 07/30/20 08:00 08/07/20 10:13 Coreg PO 25 mg BID@0800,1700 KESHIA Administration Clonidine HCl 0.1 mg 07/30/20 10:00 08/07/20 10:13 Catapres PO 0.1 mg BID KESHIA Administration Dextrose 0 ml 07/30/20 00:41 08/01/20 21:31 D50w (25gm) Syringe IV 50 ml Q30MIN PRN Administration Hypoglycemia Protocol Epoetin Wale 20,000 unit 08/01/20 14:40 Procrit IV BRENDAN PRN hemodialysis Hydralazine HCl 100 mg 07/30/20 14:00 08/07/20 05:19 Apresoline PO 100 mg Q8HR KESHIA Administration Sodium Chloride 100 mls @ 999 mls/hr 08/01/20 09:00 Nacl 0.9% IV BRENDAN PRN Hypotension Insulin Human Lispro 0 unit 07/30/20 07:30 08/07/20 12:08 Humalog SUB-Q Not Given ACHS KESHIA Protocol Magnesium Hydroxide 30 ml 07/30/20 00:41 Milk Of Magnesia PO Q4H PRN Constipation Ondansetron HCl 4 mg 07/30/20 00:41 07/30/20 22:01 Zofran IV 4 mg Q8H PRN Administration Nausea And Vomiting Pantoprazole Sodium 40 mg 07/30/20 22:00 08/06/20 21:35 Protonix PO 40 mg QHS KESHIA Administration Sertraline HCl 50 mg 07/30/20 12:00 08/07/20 10:13 Zoloft PO 50 mg DAILY KESHIA Administration Sodium Chloride 10 ml 07/30/20 10:00 08/07/20 10:13 Sodium Chloride Flush Syringe 10 Ml IV 10 ml BID KESHIA Administration Sodium Chloride 10 ml 07/30/20 00:41 Sodium Chloride Flush Syringe 10 Ml IV PRN PRN LINE FLUSH
--- NOTE | 2020-08-07 13:21 | Event Note ---
Date: 08/07/20 34 year old male with MRSA bacteremia and permcath infection. No SOB. Reviewed BMP which demonstrated no critical labs with K 5.6 and BUN 89. Recent BCx 08/05/2020 NGTD.. NPO after MN except sips of water with meds. Permcath placement tomorrow.
[2020-08-07] MEDS: PANTOPRAZOLE 40 MG TAB PO SCH (21:48)
[2020-08-08] MEDS: INSULIN LISPRO 100 UNIT/ML VIAL 3 mL SUB-Q SCH ×5 (00:35→22:12)
[2020-08-08] MEDS: hydrALAZINE 100 MG TAB PO SCH ×3 (06:51→22:11)
[2020-08-08] MEDS: carvediloL 25 MG TAB PO SCH ×2 (09:39→18:08)
[2020-08-08] MEDS: SERTRALINE 50 MG TAB PO SCH (10:31)
[2020-08-08] MEDS: cloNIDine 0.1 MG TAB PO SCH ×2 (10:31→22:11)
[2020-08-08] MEDS: APIXABAN 5 MG TAB PO SCH ×2 (10:31→22:11)
[2020-08-08] MEDS: amLODIPine 10 MG TAB PO SCH (10:31)
--- NOTE | 2020-08-08 11:46 | Progress Note ---
Assessment and Plan Cultures: Blood culture 07/30/2020 MRSA 3 of 4 bottles. Urine culture 07/29/2020 ESBL E coli. Blood culture 07/31/2020 MRSA 3 of 4 bottles Blood culture 08/02/2020 MRSA Cath tip culture 08/02/2020 MRSA Blood culture 08/05/2020 no growth Assessment: 34 years old male with history of end-stage renal disease on hemodialysis via left IJ PermCath, noncompliance, hypertension, diabetes mellitus, gastric ulcer, recurrent ulcerative esophagitis, noncompliance, known to our service, recent ESBL Klebsiella bacteremia secondary to PermCath infection, readmitted on 07/29/2020 due to nausea and vomiting for several days, patient missed dialysis twice: #Sepsis: secondary to MRSA bacteremia. #MRSA bacteremia: likely secondary to hemodialysis access infection. Patient missed 3 hemodialysis sections, dressing was not changed for almost 10 days. Transthoracic echo no evidence of vegetation. Hemodialysis catheter removed on 08/03/2020. #ESBL E. coli UTI: pt makes urine. Urine culture grew E. coli UTI. Treated with ertapenem x 3 days. #History of recent ESBL Klebsiella bacteremia: Had right IJ PermCath removal on 06/24/2020 with resolution of bacteremia. Got about 6 days of IV Meropenem via midline after that but his line fell out 6 days post discharge. He never contacted our office, states he came to the ER here (no record of this in the EMR) and went home. He has been doing well without abx for more than 1 week. Given his issues with non compliance and no evidence of sepsis, I would not restart IV abx. More importantly, he had source control during previous admission. #Diabetes mellitus: Uncontrolled. #ESRD on HD #Noncompliance Recs: -blood culture from 08/05/2020 remains negative, so OK to place PermCath -Continue vancomycin renally dosed, will need to continue vancomycin IV 1g after each hemodialysis for 4 weeks until 09/02/2020. Orders were sent to case finishing machine adjuster by Dr. Carlitos Valdez MD, FACP [facility] ([facility] C: [phone] O: [phone] F: [phone] Subjective Date of service: 08/08/20 Principal diagnosis: Hyperkalemia, end-stage renal disease, vomiting Interval history: No fever. Awaiting PermCath. Objective - Exam Narrative Exam: Physical Exam: Constitutional: Alert, cooperative. No acute distress Head, Ears, Nose: Normocephalic, atraumatic. External ears, nose normal Eyes: Conjunctivae/corneas clear. No icterus. No ptosis. Neck: Supple, no meningeal signs Cardiovascular: S1, S2 normal. Respiratory: Good air entry, clear to auscultation bilaterally GI: Soft, non-tender; bowel sounds normal. No peritoneal signs Musculoskeletal: No pedal edema, no cyanosis. Right great toe stump, well- healed Skin: No rash or abscess Hem/Lymphatic: No palpable cervical or supraclavicular nodes. No lymphangitis Psych: Flat affect Neurological: Awake, alert, oriented. No gross abnormality. - Constitutional Vitals: Vital Signs Temp Pulse Resp BP Pulse Ox 99.1 F 81 18 121/60 96 08/08/20 08:35 08/08/20 08:35 08/08/20 10:00 08/08/20 08:35 08/08/20 10:00 Temperature -Last 24 Hours Temperature 99.1 F Temperature 98.9 F Temperature 100.0 F Temperature 99.4 F Temperature 98.1 F - Labs CBC & Chem 7: 08/04/20 07:18 08/07/20 10:30 Labs: Abnormal lab results 08/07/20 08/07/20 08/07/20 Range/Units 10:30 11:37 15:42 Sodium 135 L (137-145) mmol/L Potassium 5.6 H (3.6-5.0) mmol/L Chloride 91.1 L (98-107) mmol/L Carbon Dioxide 19 L (22-30) mmol/L BUN 89 H (9-20) mg/dL Creatinine 18.6 H (0.8-1.3) mg/dL Glucose 128 H (75-100) mg/dL POC Glucose 136 H 190 H (70-105) 08/08/20 08/08/20 Range/Units 00:15 08:52 Sodium (137-145) mmol/L Potassium (3.6-5.0) mmol/L Chloride (98-107) mmol/L Carbon Dioxide (22-30) mmol/L BUN (9-20) mg/dL Creatinine (0.8-1.3) mg/dL Glucose (75-100) mg/dL POC Glucose 151 H 173 H (70-105)
[2020-08-08] MEDS ORDERED: HEPARIN/NS 5000 UNIT/500ML 1,000 ML IR ONE (12:32)
[2020-08-08] MEDS ORDERED: HEPARIN 10,000 UNITS/10 ML VIAL ONE (12:32)
[2020-08-08] MEDS ORDERED: SODIUM CHLORIDE 0.9% 250ML 250 ML ONE (12:33)
[2020-08-08] MEDS ORDERED: fentaNYL 100 MCG/2 ML INJ ONE (12:33)
[2020-08-08] MEDS ORDERED: LIDOCAINE 1%/EPINEPHRINE 1:100,000 VIAL (20 ML) INFILTRATI ONE (12:33)
[2020-08-08] MEDS ORDERED: MIDAZOLAM 2 MG/2 ML INJ ONE (12:33)
--- NOTE | 2020-08-08 14:28 | Operative Report ---
Operative Report Operative Report: EXAM: 1. Ultrasound-guided puncture of the left internal jugular vein 2. Fluoroscopic-guided placement of a left internal jugular tunneled cuffed hemodialysis catheter. 3. Venography of the left innominate vein and SVC DATE: 08/08/2020 INDICATION: End-stage renal disease requiring hemodialysis access MEDICATIONS: Please see nursing report for full details. DEVICES: 27 cm tip to cuff 15 Fr dual lumen hemodialysis catheter TRIMMER SORTER: ERNESTINA ALLISON MD CONTRAST: None PROCEDURE: The risks, benefits, and alternatives were discussed and informed consent was obtained. The patient was transported to the angiography suite in satisfactory/stable condition and was transported onto the angiography table. The patient's neck veins were evaluated prior to procedure and the right internal jugular vein was occluded and the left internal jugular vein was still patent. In order to preserve upper extremity access, there were no other reasonable options other than to re-access the left internal jugular vein. Plan was to access the left internal jugular vein superior to the prior catheter and more lateral in the prior catheter in order to avoid crossing tracts. The patient's left internal jugular vein was assessed with ultrasound and determined to be patent prior to procedure. The patient was prepped and draped in a sterile fashion. The puncture site was anesthetized. Under sonographic guidance, the right internal jugular vein was punctured with a 21-gauge micropuncture needle and a 0.018 inch wire was advanced into the inferior vena cava. The micropuncture needle was exchanged for a transitional dilator and the wire was retracted into the right atrium to natalee intravascular distance. The wire and inner dilator were removed. Digital subtraction angiography was performed through the outer dilator demonstrating patency of the left innominate vein and SVC. 0.035 inch Amplatz wire was advanced through the transitional dilator into the inferior vena cava with the assistance of a angled catheter. A suitable exit site was identified on the patient's chest inferior and lateral to the venotomy. The site was anesthetized with local anesthetic and the track was anesthetized. Dermatotomy was made. The PermCath was attached to the tunneling device and tunneled between the dermatotomy to the venotomy. Over the 0.035 inch wire, serial dilatation was performed with ultimate placement of a peel-away sheath. The catheter was advanced through the peel- away sheath after the wire was removed and positioned centrally under fluoroscopic guidance. The peel-away sheath was removed. 4-0 Vicryl suture was used to close the venotomy and Dermabond was then applied. 2-0 Ethilon suture was used to secure the catheter at the dermatotomy. The catheter was charged with heparin 1000 units/mL of space. Sterile dressing and Biopatch applied. The patient was transferred from the angiography suite back to the floor in stable condition. FINDINGS: 1. Excellent flow was obtained through the dialysis catheter with 20 mL syringes. 2. The catheter tip is in the right atrium. IMPRESSION: 1. Successful ultrasound and fluoroscopically guided placement of a left internal jugular tunneled cuffed hemodialysis catheter.
[2020-08-08 14:29] LABS: Hematocrit 21.4 % (35.5-45.6); Hemoglobin 6.9 gm/dl (11.8-15.2); Mean Corpuscular HGB Conc 32 % (32-34); Mean Corpuscular Volume 77 fl (84-94); Platelet Count 551 K/mm3 (140-440); Red Cell Distribution Width 19.9 % (13.2-15.2)
[2020-08-08 14:49] LABS: INR 1.85 (0.87-1.13)
[2020-08-08 15:12] LABS: Calcium 8.9 mg/dL (8.4-10.2)
--- NOTE | 2020-08-08 15:15 | Progress Note ---
Assessment and Plan Assessment: ESRD on Hemodialysis: Hyperkalemia: Abdominal Pain: HTN: Possible UTI: Depression: ACD due to ESRD: Plan: -S/P perm-cath removal by Vascular Surgeon -Dr. Benítez on 08/03/20 for line holiday due to MRSA Bacteremia. New Perm-cath was placed today on 08/08/20 -Patient is currently undergoing hemodialysis via left IF perm-cath -Fluid restriction of 1 liter per day -Anemia-On Epogen 20,000 units with HD -Renally dose medications -Strict I/Os monitoring -Obtain daily weights -Assess dialysis needs daily -Patient can be discharged back to his outpatient dialysis clinic under the care of his outpatient motion pictures cartoonist when cleared by ID Subjective Date of service: 08/08/20 Principal diagnosis: Hyperkalemia, end-stage renal disease, vomiting Interval history: Patient seen in dialysis unit undergoing HD. S/P Left IJ perm-cath placement this morning. Patient states his chest feels sore. Objective - Vital Signs Vital signs: Vital Signs - 12hr 08/08/20 08/08/20 08/08/20 04:16 08:35 10:00 Temperature 98.9 F 99.1 F Pulse Rate 81 81 Respiratory 18 18 18 Rate Blood Pressure 127/61 121/60 O2 Sat by Pulse 96 95 96 Oximetry 08/08/20 08/08/20 08/08/20 13:55 14:00 14:15 Temperature 98.2 F Pulse Rate 67 67 68 Respiratory 18 Rate Blood Pressure 119/65 117/64 110/55 O2 Sat by Pulse Oximetry 08/08/20 14:30 Temperature Pulse Rate 70 Respiratory Rate Blood Pressure 127/62 O2 Sat by Pulse Oximetry - General Appearance General appearance: well-developed, appears stated age, fatigue EENT: ATNC, PERRL, hearing intact, vision intact Neck: no JVD, supple Respiratory: Present: Decreased Breath Sounds Cardiology: S1S2 Gastrointestinal: normoactive bowel sounds Integumentary: warm and dry Neurologic: alert and oriented x3 Musculoskeletal: other (No edema) - Lab 08/08/20 14:21 08/08/20 14:21 Most recent lab results Calcium 8.9 mg/dL (8.4-10.2) 08/08/20 14:21 Medications & Allergies - Medications Allergies/Adverse Reactions: Allergies No Known Allergies Allergy (Verified 07/20/20 15:05) Home Medications: Home Medications Medication Instructions Recorded Confirmed Last Taken Type Albuterol Sulfate [Albuterol 0.63% 0.63 mg IH Q4HR PRN #50 04/17/20 07/30/20 05/30/20 Rx NEBS] Lispro Insulin [HumaLOG] 5 unit SQ AC #1 vial 04/17/20 07/30/20 06/15/20 Rx Apixaban [Eliquis] 1 tab PO BID #60 tablet 07/17/20 07/30/20 07/22/20 08:00 Rx Insulin Glargine [Lantus VIAL] 10 units SUB-Q QHS units 07/17/20 07/30/20 07/21/20 20:00 Rx Metoclopramide [Reglan TAB] 5 mg PO ACHS PRN #120 tablet 07/17/20 07/30/20 07/22/20 08:00 Rx Pantoprazole [Protonix TAB] 40 mg PO DAILY #60 tablet 07/17/20 07/30/20 07/22/20 08:00 Rx amLODIPine 10 mg PO DAILY #30 tablet 07/17/20 07/30/20 07/22/20 08:00 Rx carvediloL [Coreg] 25 mg PO BID 30 Days #60 tablet 07/17/20 07/30/20 07/22/20 08:00 Rx cloNIDine [Catapres] 0.1 mg PO BID #60 tablet 07/17/20 07/30/20 07/22/20 08:00 Rx hydrALAZINE [Apresoline TAB] 100 mg PO Q8HR #90 tab 07/17/20 07/30/20 07/22/20 08:00 Rx Active Medications: Generic Name Dose Route Start Last Admin Trade Name Freq PRN Reason Stop Dose Admin Acetaminophen 650 mg 07/30/20 00:41 08/05/20 21:07 Tylenol PO 650 mg Q4H PRN Administration Pain MILD(1-3)/Fever >100.5/LANZA Albuterol 0.63 mg 07/30/20 07:01 Proventil IH Q4HRT PRN Shortness Of Breath Amlodipine Besylate 10 mg 07/30/20 10:00 08/08/20 10:31 Amlodipine PO 10 mg DAILY KESHIA Administration Apixaban 5 mg 07/30/20 10:00 08/08/20 10:31 Eliquis PO 5 mg BID KESHIA Administration Protocol Carvedilol 25 mg 07/30/20 08:00 08/08/20 09:39 Coreg PO 25 mg BID@0800,1700 KESHIA Administration Clonidine HCl 0.1 mg 07/30/20 10:00 08/08/20 10:31 Catapres PO 0.1 mg BID KESHIA Administration Dextrose 0 ml 07/30/20 00:41 08/01/20 21:31 D50w (25gm) Syringe IV 50 ml Q30MIN PRN Administration Hypoglycemia Protocol Epoetin Wale 20,000 unit 08/01/20 14:40 Procrit IV BRENDAN PRN hemodialysis Hydralazine HCl 100 mg 07/30/20 14:00 08/08/20 06:51 Apresoline PO 100 mg Q8HR KESHIA Administration Sodium Chloride 100 mls @ 999 mls/hr 08/01/20 09:00 Nacl 0.9% IV BRENDAN PRN Hypotension Insulin Human Lispro 0 unit 07/30/20 07:30 08/08/20 11:58 Humalog SUB-Q Not Given ACHS [facility] Protocol Magnesium Hydroxide 30 ml 07/30/20 00:41 Milk Of Magnesia PO Q4H PRN Constipation Ondansetron HCl 4 mg 07/30/20 00:41 07/30/20 22:01 Zofran IV 4 mg Q8H PRN Administration Nausea And Vomiting Pantoprazole Sodium 40 mg 07/30/20 22:00 08/07/20 21:48 Protonix PO 40 mg QHS KESHIA Administration Sertraline HCl 50 mg 07/30/20 12:00 08/08/20 10:31 Zoloft PO 50 mg DAILY KESHIA Administration Sodium Chloride 10 ml 07/30/20 10:00 08/08/20 09:40 Sodium Chloride Flush Syringe 10 Ml IV 10 ml BID KESHIA Administration Sodium Chloride 10 ml 07/30/20 00:41 Sodium Chloride Flush Syringe 10 Ml IV PRN PRN LINE FLUSH
[2020-08-08 15:16] LABS: Basophils % (Manual) 0 % (0.0-1.8); Hypochromasia 1+; Platelet Estimate Consistent w Auto; Total Cells Counted 100
--- NOTE | 2020-08-08 18:48 | Progress Note ---
Assessment and Plan Assessment and plan: Patient underwent left internal jugular tunneled cuffed hemodialysis catheter. Placement followed by hemodialysis --Left IJ tunneled cuffed HD catheter placement today Current Visit: Yes Status: Chronic Plan to address problem: Followed by hemodialysis, --Anemia; Hb 7.0-8.2-6.9 Current Visit: Yes Status: Chronic Plan to address problem: Hemoglobin 6.9 today, recheck tomorrow Transfuse 1 unit of PRBC if less than 7 Chronic anemia of ESRD s/p 1 unit transfusion in the past --Severe sepsis ; secondary to MRSA bacteremia Current Visit: Yes Status: Chronic Plan to address problem: Left IJ permacath removed , new permacath placement tomorrow ID recommend long-term vancomycin for 4 wks TTE negative for vegetation --Severe sepsis ; secondary to UTI : POA Current Visit: Yes Status: Chronic Plan to address problem: Fever, leukocytosis, positive urine cultures ESBL s/p ertapenem,x3days, contact isolation, ID following --Hyperkalemia Current Visit: Yes Status: Acute . Plan to address problem: Improved , HD per schedule -- End-stage renal disease needing dialysis Current Visit: Yes Status: Chronic Plan to address problem: On hemodialysis , MRSA sepsis ID recommended to remove HD catheter s/p removal of left IJ permacath [due to MRSA Bacteremia] New permacath placement tomorrow 08/08/2020 Followed by hemodialysis --Erosive esophagitis Current Visit: Yes Status: Acute Plan to address problem: IV Protonix, GI consult if needed -- Hypertensive urgency/POA Current Visit: Yes Status: Acute Plan to address problem: Blood pressure moderate control Continue current antihypertensives and PRN medications --Gastroparesis Current Visit: Yes Status: Acute Plan to address problem: Symptomatic treatment Antiemetics, Reglan as needed. --Depression; Current Visit: Yes Status: Acute Plan to address problem: Denies suicidal thoughts or ideation Psych following, continue Zoloft --Medical noncompliance; Current Visit: Yes Status: Acute Plan to address problem: patient strongly counseled the importance of adhering to the treatment plan Adhere to medications diet follow-up visit hemodialysis Patient verbalized understanding -- DVT prophylaxis Current Visit: No Status: Acute Plan to address problem: On heparin and GI prophylaxis Protonix We will closely monitor the patient and adjust management as needed Patient is critically ill with severe sepsis, anemia Poor prognosis, Follow oracle fusion consultant recommendations Plan of care reviewed with the patient and his nurse 08/02: Severe sepsis MRSA bacteremia, ID recommend HD catheter removal, vascular consulted Patient is on ertapenem 08/03; MRSA bacteremia, hemodialysis catheter removed, ID recommend long-term Vanco, ESBL UTI, contact isolation 08/04; HD catheter is out, patient did not receive hemodialysis last 3 days, vascular and nephrology closely monitoring ID recommend long-term vancomycin for 4 weeks, TTE negative for vegetation Closely monitor the patient and adjust management as needed 08/05; Vas-Cath placement followed by hemodialysis per nephrology 08/06; could not have Vas-Cath placement yesterday due to unavailability of Network Development Coordinator, awaiting Vas-Cath placement followed by dialysis ; new permacath placement tomorrow per IR/vascular followed by dialysis 08/08; patient received left IJ tunnel HD catheter placed followed by hemodialysis Mild anemia hemoglobin 6.9, repeat H&H tomorrow and transfuse as needed Plan of care reviewed with the patient and his nurse History Interval history: Today patient underwent left internal jugular tunneled cuffed hemodialysis catheter Placement followed by hemodialysis Mild drop in hemoglobin, patient tolerated the procedure well Vital signs reviewed Hospitalist Physical - Constitutional Vitals: Temp Pulse Resp BP Pulse Ox 98.2 F 77 18 113/63 96 08/08/20 17:15 08/08/20 18:08 08/08/20 17:15 08/08/20 18:08 08/08/20 10:00 General appearance: Present: no acute distress, well-nourished, other (Chronically ill looking, afebrile) - EENT Eyes: Present: PERRL, EOM intact - Neck Neck: Present: supple, normal ROM - Respiratory Respiratory effort: normal Respiratory: bilateral: diminished, rales, negative: rhonchi, wheezing - Cardiovascular Rhythm: regular Heart Sounds: Present: S1 & S2 - Extremities Extremities: no ischemia, No edema - Abdominal General gastrointestinal: soft, non-tender, non-distended, normal bowel sounds - Integumentary Integumentary: Present: clear, warm - Psychiatric Psychiatric: appropriate mood/affect, cooperative - Neurologic Neurologic: moves all extremities Results - Labs CBC & Chem 7: 08/08/20 14:21 08/08/20 14:21 Labs: Laboratory Last Values WBC 7.8 K/mm3 (4.5-11.0) 08/08/20 14:21 RBC 2.80 M/mm3 (3.65-5.03) L 08/08/20 14:21 Hgb 6.9 gm/dl (11.8-15.2) L 08/08/20 14:21 Hct 21.4 % (35.5-45.6) L 08/08/20 14:21 MCV 77 fl (84-94) L 08/08/20 14:21 MCH 25 pg (28-32) L 08/08/20 14:21 MCHC 32 % (32-34) 08/08/20 14:21 RDW 19.9 % (13.2-15.2) H 08/08/20 14:21 Plt Count 551 K/mm3 (140-440) H 08/08/20 14:21 Lymph % (Auto) 6.6 % (13.4-35.0) L 08/01/20 06:32 [place] % (Auto) 9.6 % (0.0-7.3) H 08/01/20 06:32 Eos % (Auto) 0.5 % (0.0-4.3) 08/01/20 06:32 Baso % (Auto) 0.5 % (0.0-1.8) 08/01/20 06:32 Lymph # 0.8 K/mm3 (1.2-5.4) L 08/01/20 06:32 [place] # 1.2 K/mm3 (0.0-0.8) H 08/01/20 06:32 Eos # 0.1 K/mm3 (0.0-0.4) 08/01/20 06:32 Baso # 0.1 K/mm3 (0.0-0.1) 08/01/20 06:32 Seg Neutrophils % 82.8 % (40.0-70.0) H 08/01/20 06:32 Add Manual Diff Complete 08/08/20 14:21 Total Counted 100 08/08/20 14:21 Seg Neutrophils # 10.2 K/mm3 (1.8-7.7) H 08/01/20 06:32 Seg Neuts % (Manual) 88.0 % (40.0-70.0) H 08/08/20 14:21 Band Neutrophils % 0 % 08/08/20 14:21 Lymphocytes % (Manual) 7.0 % (13.4-35.0) L 08/08/20 14:21 Reactive Lymphs % (Man) 0 % 08/08/20 14:21 Monocytes % (Manual) 2.0 % (0.0-7.3) 08/08/20 14:21 Eosinophils % (Manual) 3.0 % (0.0-4.3) 08/08/20 14:21 Basophils % (Manual) 0 % (0.0-1.8) 08/08/20 14:21 Metamyelocytes % 0 % 08/08/20 14:21 Myelocytes % 0 % 08/08/20 14:21 Promyelocytes % 0 % 08/08/20 14:21 Blast Cells % 0 % 08/08/20 14:21 Nucleated RBC % Not Reportable 08/08/20 14:21 Seg Neutrophils # Man 6.9 K/mm3 (1.8-7.7) 08/08/20 14:21 Band Neutrophils # 0.0 K/mm3 08/08/20 14:21 Lymphocytes # (Manual) 0.5 K/mm3 (1.2-5.4) L 08/08/20 14:21 Abs React Lymphs (Man) 0.0 K/mm3 08/08/20 14:21 Monocytes # (Manual) 0.2 K/mm3 (0.0-0.8) 08/08/20 14:21 Eosinophils # (Manual) 0.2 K/mm3 (0.0-0.4) 08/08/20 14:21 Basophils # (Manual) 0.0 K/mm3 (0.0-0.1) 08/08/20 14:21 Metamyelocytes # 0.0 K/mm3 08/08/20 14:21 Myelocytes # 0.0 K/mm3 08/08/20 14:21 Promyelocytes # 0.0 K/mm3 08/08/20 14:21 Blast Cells # 0.0 K/mm3 08/08/20 14:21 WBC Morphology Not Reportable 08/08/20 14:21 Hypersegmented Neuts Not Reportable 08/08/20 14:21 Hyposegmented Neuts Not Reportable 08/08/20 14:21 Hypogranular Neuts Not Reportable 08/08/20 14:21 Smudge Cells Not Reportable 08/08/20 14:21 Toxic Granulation Not Reportable 08/08/20 14:21 Toxic Vacuolation Not Reportable 08/08/20 14:21 Dohle Bodies Not Reportable 08/08/20 14:21 Pelger-Huet Anomaly Not Reportable 08/08/20 14:21 Julio Cesar Rods Not Reportable 08/08/20 14:21 Platelet Estimate Consistent w auto 08/08/20 14:21 Clumped Platelets Not Reportable 08/08/20 14:21 Plt Clumps, EDTA Not Reportable 08/08/20 14:21 Large Platelets Not Reportable 08/08/20 14:21 Giant Platelets Not Reportable 08/08/20 14:21 Platelet Satelliting Not Reportable 08/08/20 14:21 Plt Morphology Comment Not Reportable 08/08/20 14:21 RBC Morphology Not Reportable 08/08/20 14:21 Dimorphic RBCs Not Reportable 08/08/20 14:21 Polychromasia Not Reportable 08/08/20 14:21 Hypochromasia 1+ 08/08/20 14:21 Poikilocytosis Not Reportable 08/08/20 14:21 Anisocytosis Not Reportable 08/08/20 14:21 Microcytosis Few 08/08/20 14:21 Macrocytosis Not Reportable 08/08/20 14:21 Spherocytes Not Reportable 08/08/20 14:21 Pappenheimer Bodies Not Reportable 08/08/20 14:21 Sickle Cells Not Reportable 08/08/20 14:21 Target Cells Not Reportable 08/08/20 14:21 Tear Drop Cells Not Reportable 08/08/20 14:21 Ovalocytes Not Reportable 08/08/20 14:21 Helmet Cells Not Reportable 08/08/20 14:21 Pak-Lebo Bodies Not Reportable 08/08/20 14:21 Remer Rings Not Reportable 08/08/20 14:21 Chappell Cells Not Reportable 08/08/20 14:21 Bite Cells Not Reportable 08/08/20 14:21 Crenated Cell Not Reportable 08/08/20 14:21 Elliptocytes Not Reportable 08/08/20 14:21 Acanthocytes (Spur) Not Reportable 08/08/20 14:21 Rouleaux Not Reportable 08/08/20 14:21 Hemoglobin C Crystals Not Reportable 08/08/20 14:21 Schistocytes Not Reportable 08/08/20 14:21 Malaria parasites Not Reportable 08/08/20 14:21 David Bodies Not Reportable 08/08/20 14:21 Hem Pathologist Commnt No 08/08/20 14:21 PT 21.6 Sec. (12.2-14.9) H 08/08/20 14:21 INR 1.85 (0.87-1.13) H 08/08/20 14:21 Sodium 135 mmol/L (137-145) L 08/08/20 14:21 Potassium 5.5 mmol/L (3.6-5.0) H 08/08/20 14:21 Chloride 90.6 mmol/L (98-107) L 08/08/20 14:21 Carbon Dioxide 23 mmol/L (22-30) 08/08/20 14:21 Anion Gap 27 mmol/L 08/08/20 14:21 BUN 93 mg/dL (9-20) H 08/08/20 14:21 Creatinine 16.9 mg/dL (0.8-1.3) H 08/08/20 14:21 Estimated GFR 4 ml/min 08/08/20 14:21 BUN/Creatinine Ratio 6 % 08/08/20 14:21 Glucose 141 mg/dL (75-100) H 08/08/20 14:21 POC Glucose 173 (70-105) H 08/08/20 08:52 Calcium 8.9 mg/dL (8.4-10.2) 08/08/20 14:21 Urine Color Yellow (Yellow) 07/29/20 Unknown Urine Turbidity Slightly-cloudy (Clear) 07/29/20 Unknown Urine pH 6.0 (5.0-7.0) 07/29/20 Unknown Ur Specific [place] 1.024 (1.003-1.030) 07/29/20 Unknown Urine Protein >500 mg/dL (Negative) 07/29/20 Unknown Urine Glucose (UA) >=500 mg/dL (Negative) 07/29/20 Unknown Urine Ketones Tr mg/dL (Negative) 07/29/20 Unknown Urine Blood Sm (Negative) 07/29/20 Unknown Urine Nitrite Neg (Negative) 07/29/20 Unknown Urine Bilirubin Neg (Negative) 07/29/20 Unknown Urine Urobilinogen < 2.0 mg/dL (<2.0) 07/29/20 Unknown Ur Leukocyte Esterase Tr (Negative) 07/29/20 Unknown Urine WBC (Auto) 34.0 /HPF (0.0-6.0) H 07/29/20 Unknown Urine RBC (Auto) 9.0 /HPF (0.0-6.0) 07/29/20 Unknown U Epithel Cells (Auto) 1.0 /HPF (0-13.0) 07/29/20 Unknown Urine Bacteria (Auto) 1+ /HPF (Negative) 07/29/20 Unknown Urine Yeast (Budding) 1+ /HPF 07/29/20 Unknown Random Vancomycin 20.9 ug/mL (0-40.0) 08/06/20 07:30 Salicylates < 0.3 mg/dL (2.8-20.0) L 07/29/20 16:06 Urine Opiates Screen Presumptive negative 07/29/20 Unknown Urine Methadone Screen Presumptive negative 07/29/20 Unknown Acetaminophen 5.0 ug/mL (10.0-30.0) L 07/29/20 16:06 Ur Barbiturates Screen Presumptive negative 07/29/20 Unknown Ur Phencyclidine Scrn Presumptive negative 07/29/20 Unknown Ur Amphetamines Screen Presumptive negative 07/29/20 Unknown U Benzodiazepines Scrn Presumptive negative 07/29/20 Unknown Urine Cocaine Screen Presumptive negative 07/29/20 Unknown U Marijuana (THC) Screen Presumptive negative 07/29/20 Unknown Drugs of Abuse Note Disclamer 07/29/20 Unknown Plasma/Serum Alcohol < 0.01 % (0-0.07) 07/29/20 16:06 Hepatitis A IgM Ab Non-reactive (NonReactive) 07/30/20 05:31 Hep Bs Antigen Non-reactive (Negative) 07/30/20 05:31 Hep B Core IgM Ab Non-reactive (NonReactive) 07/30/20 05:31 Hepatitis C Antibody Non-reactive (NonReactive) 07/30/20 05:31 Blood Type O POSITIVE 07/31/20 20:30 Antibody Screen Negative 07/31/20 20:30 Crossmatch See Detail 07/31/20 20:30 Microbiology: Microbiology 08/05/20 13:32 Peripheral/Venous Blood Culture - Preliminary NO GROWTH AFTER 72 HOURS 08/05/20 13:58 Peripheral/Venous Blood Culture - Preliminary NO GROWTH AFTER 72 HOURS - Diagnostic Impressions Diagnostic Impressions: Echocardiogram 08/01/20 20:32 Transthoracic Echocardiogram Indication: Endocarditis BP: 124/68 HR: 83 Conclusions *Mild concentric left ventricular hypertrophy is observed. *Global left ventricular systolic function is normal. *The estimated ejection fraction is 50-55%. *Abnormal left ventricular diastolic filling is observed, consistent with impaired relaxation. Findings Procedure Info: The study quality is fair. Left Ventricle: The left ventricular chamber size is normal. Mild concentric left ventricular hypertrophy is observed. Global left ventricular systolic function is normal. The estimated ejection fraction is 50-55%. Abnormal left ventricular diastolic filling is observed, consistent with impaired relaxation. Left Atrium: The left atrial chamber size is normal. Right Ventricle: The right ventricular cavity size is normal. Right Atrium: The right atrial cavity size is normal. Aortic Valve: The aortic valve is trileaflet. There is no evidence of aortic regurgitation. There is no evidence of aortic stenosis. Mitral Valve: The mitral valve leaflets appear normal. There is trace of mitral regurgitation. Tricuspid Valve: There is tricuspid annular calcification. The tricuspid valve leaflets are normal. There is trace tricuspid regurgitation. Pulmonic Valve: The pulmonic valve appears normal. There is trace pulmonic regurgitation. Pericardium: A trivial pericardial effusion is visualized. Aorta: The aorta appears normal. Venous: The inferior vena cava is dilated. Measurements Chambers 2D Name Value Normal Range IVSd (2D) 1.33 cm (0.6 - 1.1) LVPWd (2D) 1.31 cm (0.6 - 1.1) LVIDd (2D) 5.03 cm (3.7 - 5.6) LVIDs (2D) 3.71 cm (2 - 3.8) LV FS (2D) 26.3 % - EF Teichholz (2D) 51.3 % - Ao root diameter (2D) 2.58 cm (2 - 3.7) Volumes/Mass Name Value Normal Range LA ESV SP 4CH (A/L) 68.16 ml - LA ESV SP 2CH (A/L) 71.81 ml - LA ESV BP (A/L) 72.16 ml - LA ESV BP (A/L) index 34.2 ml/m2 - LA ESV SP 4CH (MOD) 65.34 ml - LA ESV SP 2CH (MOD) 63.27 ml - LA ESV BP (MOD) 65.31 ml - LA ESV BP (MOD) index 30.95 ml/m2 - LV EDV SP 4CH (MOD) 185.13 ml - LV ESV SP 4CH (MOD) 79.24 ml - EF SP 4CH (MOD) 57.2 % - LV EDV SP 2CH (MOD) 191.64 ml - LV ESV SP 2CH (MOD) 112.9 ml - EF SP 2CH (MOD) 41.09 % - LV EDV BP 187.9 ml - LV ESV BP 100.66 ml - BP EF (MOD) 46.43 % - Diastolic/Systolic Function Name Value Normal Range MV E-wave Vmax 0.98 m/sec - MV deceleration time 279.48 msec - MV A-wave Vmax 0.99 m/sec - MV E:A ratio 0.99 ratio - Aortic Valve Name Value Normal Range AV Vmax 1.89 m/sec - AV VTI 32.14 cm - AV peak gradient 14.23 mmHg - AV mean gradient 7.6 mmHg - LVOT diameter 2.15 cm - LVOT Vmax 1.71 m/sec - LVOT VTI 28.31 cm - LVOT peak gradient 11.71 mmHg - LVOT mean gradient 5.52 mmHg - SV LVOT 102.46 ml - PRAVIN (continuity Vmax) 3.28 cm2 - PRAVIN (continuity VTI) 3.19 cm2 - Ascending Ao 2.59 cm - Tricuspid Valve Name Value Normal Range TR Vmax 2.67 m/sec - TR peak gradient 28 mmHg - RAP 5 mmHg - RVSP 33 mmHg - IVC diameter 2.17 cm (1.2 - 2.3) Pulmonic Valve/Qp:Qs Name Value Normal Range PV Vmax 1.4 m/sec - PV VTI 24.99 cm - PV peak gradient 7.83 mmHg - PV mean gradient 3.58 mmHg - DE end-diastolic Vmax 1.07 m/sec - RVOT Vmax 1.01 m/sec - RVOT VTI 17.18 cm - RVOT peak gradient 4.11 mmHg - Perez/IV: Voiding Method Toilet IV Catheter Type [Left Forearm INT / Saline Lock ] IV Catheter Type [Left INT / Saline Lock External Jugular] IV Catheter Type [Left Chest] VAS Cath IV Catheter Type [Left INT / Saline Lock Antecubital] Active Medications - Current Medications Current Medications: Generic Name Dose Route Start Last Admin Trade Name Freq PRN Reason Stop Dose Admin Acetaminophen 650 mg 07/30/20 00:41 08/05/20 21:07 Tylenol PO 650 mg Q4H PRN Administration Pain MILD(1-3)/Fever >100.5/LANZA Albuterol 0.63 mg 07/30/20 07:01 Proventil IH Q4HRT PRN Shortness Of Breath Amlodipine Besylate 10 mg 07/30/20 10:00 08/08/20 10:31 Amlodipine PO 10 mg DAILY KESHIA Administration Apixaban 5 mg 07/30/20 10:00 08/08/20 10:31 Eliquis PO 5 mg BID KESHIA Administration Protocol Carvedilol 25 mg 07/30/20 08:00 08/08/20 18:08 Coreg PO 25 mg BID@0800,1700 KESHIA Administration Clonidine HCl 0.1 mg 07/30/20 10:00 08/08/20 10:31 Catapres PO 0.1 mg BID KESHIA Administration Dextrose 0 ml 07/30/20 00:41 08/01/20 21:31 D50w (25gm) Syringe IV 50 ml Q30MIN PRN Administration Hypoglycemia Protocol Epoetin Wale 20,000 unit 08/01/20 14:40 Procrit IV BRENDAN PRN hemodialysis Hydralazine HCl 100 mg 07/30/20 14:00 08/08/20 17:07 Apresoline PO Not Given Q8HR [facility] Sodium Chloride 100 mls @ 999 mls/hr 08/01/20 09:00 Nacl 0.9% IV BRENDAN PRN Hypotension Insulin Human Lispro 0 unit 07/30/20 07:30 08/08/20 16:51 Humalog SUB-Q Not Given ACHS [facility] Protocol Magnesium Hydroxide 30 ml 07/30/20 00:41 Milk Of Magnesia PO Q4H PRN Constipation Ondansetron HCl 4 mg 07/30/20 00:41 07/30/20 22:01 Zofran IV 4 mg Q8H PRN Administration Nausea And Vomiting Pantoprazole Sodium 40 mg 07/30/20 22:00 08/07/20 21:48 Protonix PO 40 mg QHS KESHIA Administration Sertraline HCl 50 mg 07/30/20 12:00 08/08/20 10:31 Zoloft PO 50 mg DAILY KESHIA Administration Sodium Chloride 10 ml 07/30/20 10:00 08/08/20 09:40 Sodium Chloride Flush Syringe 10 Ml IV 10 ml BID KESHIA Administration Sodium Chloride 10 ml 07/30/20 00:41 Sodium Chloride Flush Syringe 10 Ml IV PRN PRN LINE FLUSH Nutrition/Malnutrition Assess - Dietary Evaluation Nutrition/Malnutrition Findings: Nutrition Notes Start: 07/30/20 10:57 Freq: Status: Active Protocol: Document 08/04/20 15:21 AL (Rec: 08/04/20 16:00 AL [id number]) Co-Sign 08/04/20 15:21 NHALL Nutrition Notes Initial or Follow up Brief Note Current Diagnosis CKD (stage V CKD),Diabetes, Hypertension Other Pertinent Diagnosis ESRD - HD, Abd pain, hx of erosive esophagitis, gastroparesis Current Diet Renal/Consistent CHO Labs/Tests Na 134 BUN 65 Cr 11.8 Glu 148 Pertinent Medications Reviewed Height 6 ft 3 in Weight 84.2 kg [place] Body Weight (kg) 89.09 BMI 23.2 Weight Status Appropriate Subjective/Other Information F/U for stable intakes. RN reports that pt did not eat at all this morning because he did not want to. RN reports pt consume cranberry juice. Per chart, pt consumed 25% of his lunch. Burn Absent Trauma Absent Current % PO Poor (25-49%) Minimum of two criteria No Interpretation of Weight Loss (severe) >2% in 1 week #1 Nutrition Diagnosis Inadequate oral intake As Evidenced by Signs and Symptoms pt only consuming 25% of lunch Diagnosis Progress(for reassessment Worsened documentation) Is patient on ventilator? No Is Patient Ambulatory and/or Out of Bed Yes REE-(Hoffman-St. Jeor-ambulatory/OOB) [ 2440.919 [id number]] Calculation Used for Recommendations Hoffman-St or Additional Notes Pro: >101g (>1.2g/kg) Fluid: 1ml/kcal or per Nutrition Intervention Change Diet Order: continue Goal #1 Meet at least 80% of protein and energy needs via PO intakes Anticipated Discharge Needs: Renal, Consistent CHO Follow-Up By: 08/09/20 Additional Comments F/U for stable intakes
[2020-08-08] MEDS: PANTOPRAZOLE 40 MG TAB PO SCH (22:11)
[2020-08-09] MEDS: hydrALAZINE 100 MG TAB PO SCH ×3 (06:30→21:41)
[2020-08-09] MEDS: INSULIN LISPRO 100 UNIT/ML VIAL 3 mL SUB-Q SCH ×4 (08:00→21:42)
--- NOTE | 2020-08-09 08:29 | Progress Note ---
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 Benítez on 08/03/20 for line holiday due to MRSA Bacteremia. New Perm-cath was placed on 08/08/20 - HD again today for clearance and volume removal, can be discharged post HD today from renal standpoint -Fluid restriction of 1 liter per day -Anemia-On Epogen 20,000 units with HD -Renally dose medications -Strict I/Os monitoring -Obtain daily weights -Assess dialysis needs daily Subjective Date of service: 08/09/20 Principal diagnosis: Hyperkalemia, end-stage renal disease, vomiting Interval history: tolerated HD yesterday Objective - Vital Signs Vital signs: Vital Signs - 12hr 08/08/20 08/08/20 08/09/20 22:11 23:26 03:59 Temperature 97.8 F 98.0 F Pulse Rate 79 76 71 Respiratory 18 18 Rate Blood Pressure 120/62 119/61 117/60 O2 Sat by Pulse 96 97 Oximetry 08/09/20 07:31 Temperature 99.0 F Pulse Rate 77 Respiratory 17 Rate Blood Pressure 128/62 O2 Sat by Pulse 94 Oximetry - Lab 08/08/20 14:21 08/08/20 14:21 Most recent lab results Calcium 8.9 mg/dL (8.4-10.2) 08/08/20 14:21 Medications & Allergies - Medications Allergies/Adverse Reactions: Allergies No Known Allergies Allergy (Verified 07/20/20 15:05) Home Medications: Home Medications Medication Instructions Recorded Confirmed Last Taken Type Albuterol Sulfate [Albuterol 0.63% 0.63 mg IH Q4HR PRN #50 04/17/20 07/30/20 05/30/20 Rx NEBS] Lispro Insulin [HumaLOG] 5 unit SQ AC #1 vial 04/17/20 07/30/20 06/15/20 Rx Apixaban [Eliquis] 1 tab PO BID #60 tablet 07/17/20 07/30/20 07/22/20 08:00 Rx Insulin Glargine [Lantus VIAL] 10 units SUB-Q QHS units 07/17/20 07/30/20 07/21/20 20:00 Rx Metoclopramide [Reglan TAB] 5 mg PO ACHS PRN #120 tablet 07/17/20 07/30/2007/22 08:00 Rx Pantoprazole [Protonix TAB] 40 mg PO DAILY #60 tablet 07/17/20 07/30/20 07/22/20 08:00 Rx amLODIPine 10 mg PO DAILY #30 tablet 07/17/20 07/30/20 07/22/20 08:00 Rx carvediloL [Coreg] 25 mg PO BID 30 Days #60 tablet 07/17/20 07/30/20 07/22/20 08:00 Rx cloNIDine [Catapres] 0.1 mg PO BID #60 tablet 07/17/20 07/30/20 07/22/20 08:00 Rx hydrALAZINE [Apresoline TAB] 100 mg PO Q8HR #90 tab 07/17/20 07/30/20 07/22/20 08:00 Rx Active Medications: Generic Name Dose Route Start Last Admin Trade Name Freq PRN Reason Stop Dose Admin Acetaminophen 650 mg 07/30/20 00:41 08/05/20 21:07 Tylenol PO 650 mg Q4H PRN Administration Pain MILD(1-3)/Fever >100.5/LANZA Albuterol 0.63 mg 07/30/20 07:01 Proventil IH Q4HRT PRN Shortness Of Breath Amlodipine Besylate 10 mg 07/30/20 10:00 08/08/20 10:31 Amlodipine PO 10 mg DAILY KESHIA Administration Apixaban 5 mg 07/30/20 10:00 08/08/20 22:11 Eliquis PO 5 mg BID KESHIA Administration Protocol Carvedilol 25 mg 07/30/20 08:00 08/08/20 18:08 Coreg PO 25 mg BID@0800,1700 KESHIA Administration Clonidine HCl 0.1 mg 07/30/20 10:00 08/08/20 22:11 Catapres PO 0.1 mg BID KESHIA Administration Dextrose 0 ml 07/30/20 00:41 08/01/20 21:31 D50w (25gm) Syringe IV 50 ml Q30MIN PRN Administration Hypoglycemia Protocol Epoetin [place] 20,000 unit 08/01/20 14:40 Procrit IV BRENDAN PRN hemodialysis Hydralazine HCl 100 mg 07/30/20 14:00 08/09/20 06:30 Apresoline PO 100 mg Q8HR KESHIA Administration Sodium Chloride 100 mls @ 999 mls/hr 08/01/20 09:00 Nacl 0.9% IV BRENDAN PRN Hypotension Vancomycin HCl 1 gm in 250 mls @ 167.007 mls/hr 08/09/20 10:00 Vancomycin/Ns 1 Gm/250 Ml IV 08/09/20 11:29 ONCE ONE Insulin Human Lispro 0 unit 07/30/20 07:30 08/08/20 22:12 Humalog SUB-Q 4 unit ACHS KESHIA Administration Protocol Magnesium Hydroxide 30 ml 07/30/20 00:41 Milk Of Magnesia PO Q4H PRN Constipation Ondansetron HCl 4 mg 07/30/20 00:41 07/30/20 22:01 Zofran IV 4 mg Q8H PRN Administration Nausea And Vomiting Pantoprazole Sodium 40 mg 07/30/20 22:00 08/08/20 22:11 Protonix PO 40 mg QHS KESHIA Administration Sertraline HCl 50 mg 07/30/20 12:00 08/08/20 10:31 Zoloft PO 50 mg DAILY KESHIA Administration Sodium Chloride 10 ml 07/30/20 10:00 08/08/20 22:13 Sodium Chloride Flush Syringe 10 Ml IV Not Given BID KESHIA Sodium Chloride 10 ml 07/30/20 00:41 Sodium Chloride Flush Syringe 10 Ml IV PRN PRN LINE FLUSH
[2020-08-09] MEDS: carvediloL 25 MG TAB PO SCH ×2 (08:50→17:33)
[2020-08-09] MEDS: SERTRALINE 50 MG TAB PO SCH (09:11)
[2020-08-09] MEDS: amLODIPine 10 MG TAB PO SCH (09:11)
[2020-08-09] MEDS: cloNIDine 0.1 MG TAB PO SCH ×2 (09:11→21:41)
[2020-08-09] MEDS: APIXABAN 5 MG TAB PO SCH ×2 (09:11→21:41)
[2020-08-09 09:33] LABS: Basophils # (Auto) 0.1 K/mm3 (0.0-0.1); Basophils % (Auto) 0.8 % (0.0-1.8); Eosinophils # (Auto) 0.2 K/mm3 (0.0-0.4); Eosinophils % (Auto) 2.2 % (0.0-4.3); Hematocrit 21.9 % (35.5-45.6); Lymphocytes # (Auto) 1.1 K/mm3 (1.2-5.4); Lymphocytes % (Auto) 11.5 % (13.4-35.0); Mean Corpuscular HGB Conc 32 % (32-34); Mean Corpuscular Volume 78 fl (84-94); Monocytes # (Auto) 1.1 K/mm3 (0.0-0.8); Platelet Count 536 K/mm3 (140-440); Red Blood Count 2.82 M/mm3 (3.65-5.03); Red Cell Distribution Width 19.6 % (13.2-15.2)
[2020-08-09 09:50] LABS: Calcium 9.5 mg/dL (8.4-10.2)
[2020-08-09] MEDS ORDERED: VANCOMYCIN/NS 1 GM/250 ML 1 GM/250 ML BAG IV ONE (10:00)
[2020-08-09] MEDS ORDERED: SODIUM CHLORIDE 0.9% 500 ML 500 ML IV SCH (11:00)
--- NOTE | 2020-08-09 11:15 | Event Note ---
Date: 08/09/20 Case cancelled secondary to patient taking his dose of Eliquis this morning. Due to my schedule, will be unable to perform the operation prior to Saturday.
--- NOTE | 2020-08-09 16:25 | Progress Note ---
Assessment and Plan Cultures: Blood culture 07/30/2020 MRSA 3 of 4 bottles. Urine culture 07/29/2020 ESBL E coli. Blood culture 07/31/2020 MRSA 3 of 4 bottles Blood culture 08/02/2020 MRSA Cath tip culture 08/02/2020 MRSA Blood culture 08/05/2020: no growth Assessment: 34 years old male with history of end-stage renal disease on hemodialysis via left IJ PermCath, noncompliance, hypertension, diabetes mellitus, gastric ulcer, recurrent ulcerative esophagitis, noncompliance, known to our service, recent ESBL Klebsiella bacteremia secondary to PermCath infection, readmitted on 07/29/2020 due to nausea and vomiting for several days, patient missed dialysis twice: #Sepsis: secondary to MRSA bacteremia. #MRSA bacteremia: likely secondary to hemodialysis access infection. Patient missed 3 hemodialysis sections, dressing was not changed for almost 10 days. Transthoracic echo no evidence of vegetation. Hemodialysis catheter removed on 08/03/2020. Had tunneled HD catheter placed on 08/08/2020. #ESBL E. coli UTI: pt makes urine. Urine culture grew E. coli UTI. Treated with ertapenem x 3 days. #History of recent ESBL Klebsiella bacteremia: Had right IJ PermCath removal on 06/24/2020 with resolution of bacteremia. Got about 6 days of IV Meropenem via midline after that but his line fell out 6 days post discharge. He never contacted our office, states he came to the ER here (no record of this in the EMR) and went home. He has been doing well without abx for more than 1 week. Given his issues with non compliance and no evidence of sepsis, I would not restart IV abx. More importantly, he had source control during previous admission. #Diabetes mellitus: Uncontrolled. #ESRD on HD #Noncompliance Recs: -continue vancomycin IV 1 g after each hemodialysis session for 4 weeks until 09/02/2020. Orders were sent to [facility] by Dr. Urbina. Pito Valdez MD, [facility] ([facility]) C: [phone] O: [phone] F: [phone] Subjective Date of service: 08/09/20 Principal diagnosis: Hyperkalemia, end-stage renal disease, vomiting Interval history: No fever. Had tunneled HD catheter placed on 08/08/2020. Had dialysis today without issues. Objective - Exam Narrative Exam: Physical Exam: Constitutional: Alert, cooperative. No acute distress Head, Ears, Nose: Normocephalic, atraumatic. External ears, nose normal Eyes: Conjunctivae/corneas clear. No icterus. No ptosis. Neck: Supple, no meningeal signs Cardiovascular: S1, S2 normal. Respiratory: Good air entry, clear to auscultation bilaterally GI: Soft, non-tender; bowel sounds normal. No peritoneal signs Musculoskeletal: No pedal edema, no cyanosis. Right great toe stump, well- healed. PermCath + Skin: No rash or abscess Hem/Lymphatic: No palpable cervical or supraclavicular nodes. No lymphangitis Psych: Flat affect Neurological: Awake, alert, oriented. No gross abnormality. - Constitutional Vitals: Vital Signs Temp Pulse Resp BP Pulse Ox 98.3 F 78 17 106/46 99 08/09/20 16:15 08/09/20 16:15 08/09/20 16:15 08/09/20 16:15 08/09/20 16:15 Temperature -Last 24 Hours Temperature 98.3 F Temperature 98.2 F Temperature 98.8 F Temperature 99.0 F Temperature 98.0 F Temperature 97.8 F Temperature 98.3 F Temperature 98.2 F - Labs CBC & Chem 7: 08/09/20 09:06 08/09/20 09:06 Labs: Abnormal lab results 08/08/20 08/09/20 08/09/20 Range/Units 20:40 07:46 09:06 RBC (3.65-5.03) M/mm3 Hgb (11.8-15.2) gm/dl Hct (35.5-45.6) % MCV (84-94) fl MCH (28-32) pg RDW (13.2-15.2) % Plt Count (140-440) K/mm3 Lymph % (Auto) (13.4-35.0) % [place] % (Auto) (0.0-7.3) % Lymph # (Auto) (1.2-5.4) K/mm3 [place] # (Auto) (0.0-0.8) K/mm3 Seg Neutrophils % (40.0-70.0) % Chloride 93.6 L (98-107) mmol/L BUN 51 H (9-20) mg/dL Creatinine 12.1 H (0.8-1.3) mg/dL Glucose 163 H (75-100) mg/dL POC Glucose 250 H 177 H (70-105) Crossmatch 08/09/20 08/09/20 Range/Units 09:06 11:55 RBC 2.82 L (3.65-5.03) M/mm3 Hgb 7.0 L (11.8-15.2) gm/dl Hct 21.9 L (35.5-45.6) % MCV 78 L (84-94) fl MCH 25 L (28-32) pg RDW 19.6 H (13.2-15.2) % Plt Count 536 H (140-440) K/mm3 Lymph % (Auto) 11.5 L (13.4-35.0) % [place] % (Auto) 12.0 H (0.0-7.3) % Lymph # (Auto) 1.1 L (1.2-5.4) K/mm3 [place] # (Auto) 1.1 H (0.0-0.8) K/mm3 Seg Neutrophils % 73.5 H (40.0-70.0) % Chloride (98-107) mmol/L BUN (9-20) mg/dL Creatinine (0.8-1.3) mg/dL Glucose (75-100) mg/dL POC Glucose (70-105) Crossmatch See Detail
--- NOTE | 2020-08-09 18:54 | Progress Note ---
Assessment and Plan Assessment and plan: Patient received hemodialysis today Hemoglobin dropped to 7.0, recommend 1 unit blood transfusion However blood was not ready during dialysis. Will transfuse tomorrow --Left IJ tunneled cuffed HD catheter placement today Current Visit: Yes Status: Chronic Plan to address problem: Followed by hemodialysis, --Anemia; Hb 7.0-8.2-6.9-7.0 Current Visit: Yes Status: Chronic Plan to address problem: Hemoglobin 7.0 today, switch 1 unit PRBC Chronic anemia of ESRD s/p 1 unit transfusion in the past --Severe sepsis ; secondary to MRSA bacteremia Current Visit: Yes Status: Chronic Plan to address problem: Left IJ permacath removed , new permacath placement tomorrow ID recommend long-term vancomycin for 4 wks TTE negative for vegetation --Severe sepsis ; secondary to UTI : POA Current Visit: Yes Status: Chronic Plan to address problem: Fever, leukocytosis, positive urine cultures ESBL s/p ertapenem,x3days, contact isolation, ID following --Hyperkalemia Current Visit: Yes Status: Acute . Plan to address problem: Improved , HD per schedule -- End-stage renal disease needing dialysis Current Visit: Yes Status: Chronic Plan to address problem: On hemodialysis , MRSA sepsis ID recommended to remove HD catheter s/p removal of left IJ permacath [due to MRSA Bacteremia] New permacath placement tomorrow 08/08/2020 Followed by hemodialysis --Erosive esophagitis Current Visit: Yes Status: Acute Plan to address problem: IV Protonix, GI consult if needed -- Hypertensive urgency/POA Current Visit: Yes Status: Acute Plan to address problem: Blood pressure moderate control Continue current antihypertensives and PRN medications --Gastroparesis Current Visit: Yes Status: Acute Plan to address problem: Symptomatic treatment Antiemetics, Reglan as needed. --Depression; Current Visit: Yes Status: Acute Plan to address problem: Denies suicidal thoughts or ideation Psych following, continue Zoloft --Medical noncompliance; Current Visit: Yes Status: Acute Plan to address problem: patient strongly counseled the importance of adhering to the treatment plan Adhere to medications diet follow-up visit hemodialysis Patient verbalized understanding -- DVT prophylaxis Current Visit: No Status: Acute Plan to address problem: On heparin and GI prophylaxis Protonix We will closely monitor the patient and adjust management as needed Patient is critically ill with severe sepsis, anemia Poor prognosis, Follow digital marketing consultant recommendations Plan of care reviewed with the patient and his nurse 08/02: Severe sepsis MRSA bacteremia, ID recommend HD catheter removal, vascular consulted Patient is on ertapenem 08/03; MRSA bacteremia, hemodialysis catheter removed, ID recommend long-term Vanco, ESBL UTI, contact isolation 08/04; HD catheter is out, patient did not receive hemodialysis last 3 days, vascular and nephrology closely monitoring ID recommend long-term vancomycin for 4 weeks, TTE negative for vegetation Closely monitor the patient and adjust management as needed 08/05; Vas-Cath placement followed by hemodialysis per nephrology 08/06; could not have Vas-Cath placement yesterday due to unavailability of Mult[employer] Intelligence Officer, awaiting Vas-Cath placement followed by dialysis ; new permacath placement tomorrow per IR/vascular followed by dialysis 08/08; patient received left IJ tunnel HD catheter placed followed by hemodialysis Mild anemia hemoglobin 6.9, repeat H&H tomorrow and transfuse as needed 08/09; hemoglobin 7.0, recommend transfusion 1 unit PRBC tomorrow Plan of care reviewed with the patient and his nurse History Interval history: Patient received hemodialysis today No new complaints vital signs stable Have seen and examined the patient in the room Vital signs reviewed Hospitalist Physical - Physical exam Narrative exam: Patient was in dialysis unit - Constitutional Vitals: Temp Pulse Resp BP Pulse Ox 98.3 F 78 17 106/46 99 08/09/20 16:15 08/09/20 17:33 08/09/20 16:15 08/09/20 17:33 08/09/20 16:15 General appearance: Present: no acute distress, well-nourished - EENT Eyes: Present: PERRL, EOM intact - Neck Neck: Present: supple, normal ROM - Respiratory Respiratory effort: normal Respiratory: bilateral: diminished, negative: rales, rhonchi, wheezing - Cardiovascular Rhythm: regular Heart Sounds: Present: S1 & S2 - Extremities Extremities: no ischemia, No edema - Abdominal General gastrointestinal: soft, non-tender, non-distended, normal bowel sounds - Integumentary Integumentary: Present: clear, warm - Psychiatric Psychiatric: appropriate mood/affect, cooperative - Neurologic Neurologic: moves all extremities Results - Labs CBC & Chem 7: 08/09/20 09:06 08/09/20 09:06 Labs: Laboratory Last Values WBC 9.5 K/mm3 (4.5-11.0) 08/09/20 09:06 RBC 2.82 M/mm3 (3.65-5.03) L 08/09/20 09:06 Hgb 7.0 gm/dl (11.8-15.2) L 08/09/20 09:06 Hct 21.9 % (35.5-45.6) L 08/09/20 09:06 MCV 78 fl (84-94) L 08/09/20 09:06 MCH 25 pg (28-32) L 08/09/20 09:06 MCHC 32 % (32-34) 08/09/20 09:06 RDW 19.6 % (13.2-15.2) H 08/09/20 09:06 Plt Count 536 K/mm3 (140-440) H 08/09/20 09:06 Lymph % (Auto) 11.5 % (13.4-35.0) L 08/09/20 09:06 Sac % (Auto) 12.0 % (0.0-7.3) H 08/09/20 09:06 Eos % (Auto) 2.2 % (0.0-4.3) 08/09/20 09:06 Baso % (Auto) 0.8 % (0.0-1.8) 08/09/20 09:06 Lymph # (Auto) 1.1 K/mm3 (1.2-5.4) L 08/09/20 09:06 Sac # (Auto) 1.1 K/mm3 (0.0-0.8) H 08/09/20 09:06 Eos # (Auto) 0.2 K/mm3 (0.0-0.4) 08/09/20 09:06 Baso # (Auto) 0.1 K/mm3 (0.0-0.1) 08/09/20 09:06 Add Manual Diff Complete 08/08/20 14:21 Total Counted 100 08/08/20 14:21 Seg Neutrophils % 73.5 % (40.0-70.0) H 08/09/20 09:06 Seg Neuts % (Manual) 88.0 % (40.0-70.0) H 08/08/20 14:21 Band Neutrophils % 0 % 08/08/20 14:21 Lymphocytes % (Manual) 7.0 % (13.4-35.0) L 08/08/20 14:21 Reactive Lymphs % (Man) 0 % 08/08/20 14:21 Monocytes % (Manual) 2.0 % (0.0-7.3) 08/08/20 14:21 Eosinophils % (Manual) 3.0 % (0.0-4.3) 08/08/20 14:21 Basophils % (Manual) 0 % (0.0-1.8) 08/08/20 14:21 Metamyelocytes % 0 % 08/08/20 14:21 Myelocytes % 0 % 08/08/20 14:21 Promyelocytes % 0 % 08/08/20 14: Blast Cells % 0 % 08/08/20 14:21 Nucleated RBC % Not Reportable 08/08/20 14:21 Seg Neutrophils # 6.9 K/mm3 (1.8-7.7) 08/09/20 09:06 Seg Neutrophils # Man 6.9 K/mm3 (1.8-7.7) 08/08/20 14:21 Band Neutrophils # 0.0 K/mm3 08/08/20 14:21 Lymphocytes # (Manual) 0.5 K/mm3 (1.2-5.4) L 08/08/20 14:21 Abs React Lymphs (Man) 0.0 K/mm3 08/08/20 14:21 Monocytes # (Manual) 0.2 K/mm3 (0.0-0.8) 08/08/20 14:21 Eosinophils # (Manual) 0.2 K/mm3 (0.0-0.4) 08/08/20 14:21 Basophils # (Manual) 0.0 K/mm3 (0.0-0.1) 08/08/20 14:21 Metamyelocytes # 0.0 K/mm3 08/08/20 14:21 Myelocytes # 0.0 K/mm3 08/08/20 14:21 Promyelocytes # 0.0 K/mm3 08/08/20 14:21 Blast Cells # 0.0 K/mm3 08/08/20 14:21 WBC Morphology Not Reportable 08/08/20 14:21 Hypersegmented Neuts Not Reportable 08/08/20 14:21 Hyposegmented Neuts Not Reportable 08/08/20 14:21 Hypogranular Neuts Not Reportable 08/08/20 14:21 Smudge Cells Not Reportable 08/08/20 14:21 Toxic Granulation Not Reportable 08/08/20 14:21 Toxic Vacuolation Not Reportable 08/08/20 14:21 Dohle Bodies Not Reportable 08/08/20 14:21 Pelger-Huet Anomaly Not Reportable 08/08/20 14:21 Julio Cesar Rods Not Reportable 08/08/20 14:21 Platelet Estimate Consistent w auto 08/08/20 14:21 Clumped Platelets Not Reportable 08/08/20 14:21 Plt Clumps, EDTA Not Reportable 08/08/20 14:21 Large Platelets Not Reportable 08/08/20 14:21 Giant Platelets Not Reportable 08/08/20 14:21 Platelet Satelliting Not Reportable 08/08/20 14:21 Plt Morphology Comment Not Reportable 08/08/20 14:21 RBC Morphology Not Reportable 08/08/20 14:21 Dimorphic RBCs Not Reportable 08/08/20 14:21 Polychromasia Not Reportable 08/08/20 14:21 Hypochromasia 1+ 08/08/20 14:21 Poikilocytosis Not Reportable 08/08/20 14:21 Anisocytosis Not Reportable 08/08/20 14:21 Microcytosis Few 08/08/20 14:21 Macrocytosis Not Reportable 08/08/20 14:21 Spherocytes Not Reportable 08/08/20 14:21 Pappenheimer Bodies Not Reportable 08/08/20 14:21 Sickle Cells Not Reportable 08/08/20 14:21 Target Cells Not Reportable 08/08/20 14:21 Tear Drop Cells Not Reportable 08/08/20 14:21 Ovalocytes Not Reportable 08/08/20 14:21 Helmet Cells Not Reportable 08/08/20 14:21 [place] Bodies Not Reportable 08/08/20 14:21 [place] Rings Not Reportable 08/08/20 14:21 [place] Cells Not Reportable 08/08/20 14:21 Bite Cells Not Reportable 08/08/20 14:21 Crenated Cell Not Reportable 08/08/20 14:21 Elliptocytes Not Reportable 08/08/20 14:21 Acanthocytes (Spur) Not Reportable 08/08/20 14:21 Rouleaux Not Reportable 08/08/20 14:21 Hemoglobin C Crystals Not Reportable 08/08/20 14:21 Schistocytes Not Reportable 08/08/20 14:21 Malaria parasites Not Reportable 08/08/20 14:21 David Bodies Not Reportable 08/08/20 14:21 Hem Pathologist Commnt No 08/08/20 14:21 PT 21.6 Sec. (12.2-14.9) H 08/08/20 14:21 INR 1.85 (0.87-1.13) H 08/08/20 14:21 Sodium 137 mmol/L (137-145) 08/09/20 09:06 Potassium 4.8 mmol/L (3.6-5.0) 08/09/20 09:06 Chloride 93.6 mmol/L (98-107) L 08/09/20 09:06 Carbon Dioxide 28 mmol/L (22-30) 08/09/20 09:06 Anion Gap 20 mmol/L 08/09/20 09:06 BUN 51 mg/dL (9-20) H 08/09/20 09:06 Creatinine 12.1 mg/dL (0.8-1.3) H 08/09/20 09:06 Estimated GFR 6 ml/min 08/09/20 09:06 BUN/Creatinine Ratio 4 % 08/09/20 09:06 Glucose 163 mg/dL (75-100) H 08/09/20 09:06 POC Glucose 172 (70-105) H 08/09/20 16:29 Calcium 9.5 mg/dL (8.4-10.2) 08/09/20 09:06 Urine Color Yellow (Yellow) 07/29/20 Unknown Urine Turbidity Slightly-cloudy (Clear) 07/29/20 Unknown Urine pH 6.0 (5.0-7.0) 07/29/20 Unknown Ur Specific Graham 1.024 (1.003-1.030) 07/29/20 Unknown Urine Protein >500 mg/dL (Negative) 07/29/20 Unknown Urine Glucose (UA) >=500 mg/dL (Negative) 07/29/20 Unknown Urine Ketones Tr mg/dL (Negative) 07/29/20 Unknown Urine Blood Sm (Negative) 07/29/20 Unknown Urine Nitrite Neg (Negative) 07/29/20 Unknown Urine Bilirubin Neg (Negative) 07/29/20 Unknown Urine Urobilinogen < 2.0 mg/dL (<2.0) 07/29/20 Unknown Ur Leukocyte Esterase Tr (Negative) 07/29/20 Unknown Urine WBC (Auto) 34.0 /HPF (0.0-6.0) H 07/29/20 Unknown Urine RBC (Auto) 9.0 /HPF (0.0-6.0) 07/29/20 Unknown U Epithel Cells (Auto) 1.0 /HPF (0-13.0) 07/29/20 Unknown Urine Bacteria (Auto) 1+ /HPF (Negative) 07/29/20 Unknown Urine Yeast (Budding) 1+ /HPF 07/29/20 Unknown Random Vancomycin 20.9 ug/mL (0-40.0) 08/06/20 07:30 Salicylates < 0.3 mg/dL (2.8-20.0) L 07/29/20 16:06 Urine Opiates Screen Presumptive negative 07/29/20 Unknown Urine Methadone Screen Presumptive negative 07/29/20 Unknown Acetaminophen 5.0 ug/mL (10.0-30.0) L 07/29/20 16:06 Ur Barbiturates Screen Presumptive negative 07/29/20 Unknown Ur Phencyclidine Scrn Presumptive negative 07/29/20 Unknown Ur Amphetamines Screen Presumptive negative 07/29/20 Unknown U Benzodiazepines Scrn Presumptive negative 07/29/20 Unknown Urine Cocaine Screen Presumptive negative 07/29/20 Unknown U Marijuana (THC) Screen Presumptive negative 07/29/20 Unknown Drugs of Abuse Note Disclamer 07/29/20 Unknown Plasma/Serum Alcohol < 0.01 % (0-0.07) 07/29/20 16:06 Hepatitis A IgM Ab Non-reactive (NonReactive) 07/30/20 05:31 Hep Bs Antigen Non-reactive (Negative) 07/30/20 05:31 Hep B Core IgM Ab Non-reactive (NonReactive) 07/30/20 05:31 Hepatitis C Antibody Non-reactive (NonReactive) 07/30/20 05:31 Blood Type O POSITIVE 08/09/20 11:55 Antibody Screen Negative 08/09/20 11:55 Crossmatch See Detail 08/09/20 11:55 Microbiology: Microbiology 08/05/20 13:32 Peripheral/Venous Blood Culture - Preliminary NO GROWTH AFTER 4 DAYS 08/05/20 13:58 Peripheral/Venous Blood Culture - Preliminary NO GROWTH AFTER 4 DAYS - Diagnostic Impressions Diagnostic Impressions: Echocardiogram 08/01/20 20:32 Transthoracic Echocardiogram Indication: Endocarditis BP: 124/68 HR: 83 Conclusions *Mild concentric left ventricular hypertrophy is observed. *Global left ventricular systolic function is normal. *The estimated ejection fraction is 50-55%. *Abnormal left ventricular diastolic filling is observed, consistent with impaired relaxation. Findings Procedure Info: The study quality is fair. Left Ventricle: The left ventricular chamber size is normal. Mild concentric left ventricular hypertrophy is observed. Global left ventricular systolic function is normal. The estimated ejection fraction is 50-55%. Abnormal left ventricular diastolic filling is observed, consistent with impaired relaxation. Left Atrium: The left atrial chamber size is normal. Right Ventricle: The right ventricular cavity size is normal. Right Atrium: The right atrial cavity size is normal. Aortic Valve: The aortic valve is trileaflet. There is no evidence of aortic regurgitation. There is no evidence of aortic stenosis. Mitral Valve: The mitral valve leaflets appear normal. There is trace of mitral regurgitation. Tricuspid Valve: There is tricuspid annular calcification. The tricuspid valve leaflets are normal. There is trace tricuspid regurgitation. Pulmonic Valve: The pulmonic valve appears normal. There is trace pulmonic regurgitation. Pericardium: A trivial pericardial effusion is visualized. Aorta: The aorta appears normal. Venous: The inferior vena cava is dilated. Measurements Chambers 2D Name Value Normal Range IVSd (2D) 1.33 cm (0.6 - 1.1) LVPWd (2D) 1.31 cm (0.6 - 1.1) LVIDd (2D) 5.03 cm (3.7 - 5.6) LVIDs (2D) 3.71 cm (2 - 3.8) LV FS (2D) 26.3 % - EF Teichholz (2D) 51.3 % - Ao root diameter (2D) 2.58 cm (2 - 3.7) Volumes/Mass Name Value Normal Range LA ESV SP 4CH (A/L) 68.16 ml - LA ESV SP 2CH (A/L) 71.81 ml - LA ESV BP (A/L) 72.16 ml - LA ESV BP (A/L) index 34.2 ml/m2 - LA ESV SP 4CH (MOD) 65.34 ml - LA ESV SP 2CH (MOD) 63.27 ml - LA ESV BP (MOD) 65.31 ml - LA ESV BP (MOD) index 30.95 ml/m2 - LV EDV SP 4CH (MOD) 185.13 ml - LV ESV SP 4CH (MOD) 79.24 ml - EF SP 4CH (MOD) 57.2 % - LV EDV SP 2CH (MOD) 191.64 ml - LV ESV SP 2CH (MOD) 112.9 ml - EF SP 2CH (MOD) 41.09 % - LV EDV BP 187.9 ml - LV ESV BP 100.66 ml - BP EF (MOD) 46.43 % - Diastolic/Systolic Function Name Value Normal Range MV E-wave Vmax 0.98 m/sec - MV deceleration time 279.48 msec - MV A-wave Vmax 0.99 m/sec - MV E:A ratio 0.99 ratio - Aortic Valve Name Value Normal Range AV Vmax 1.89 m/sec - AV VTI 32.14 cm - AV peak gradient 14.23 mmHg - AV mean gradient 7.6 mmHg - LVOT diameter 2.15 cm - LVOT Vmax 1.71 m/sec - LVOT VTI 28.31 cm - LVOT peak gradient 11.71 mmHg - LVOT mean gradient 5.52 mmHg - SV LVOT 102.46 ml - PRAVIN (continuity Vmax) 3.28 cm2 - PRAVIN (continuity VTI) 3.19 cm2 - Ascending Ao 2.59 cm - Tricuspid Valve Name Value Normal Range TR Vmax 2.67 m/sec - TR peak gradient 28 mmHg - RAP 5 mmHg - RVSP 33 mmHg - IVC diameter 2.17 cm (1.2 - 2.3) Pulmonic Valve/Qp:Qs Name Value Normal Range PV Vmax 1.4 m/sec - PV VTI 24.99 cm - PV peak gradient 7.83 mmHg - PV mean gradient 3.58 mmHg - TX end-diastolic Vmax 1.07 m/sec - RVOT Vmax 1.01 m/sec - RVOT VTI 17.18 cm - RVOT peak gradient 4.11 mmHg - Perez/IV: Voiding Method Toilet IV Catheter Type [Left Forearm INT / Saline Lock ] IV Catheter Type [Left INT / Saline Lock External Jugular] IV Catheter Type [Left Chest] VAS Cath IV Catheter Type [Left INT / Saline Lock Antecubital] IV Catheter Type [Left VAS Cath Internal Jugular] Active Medications - Current Medications Current Medications: Generic Name Dose Route Start Last Admin Trade Name Freq PRN Reason Stop Dose Admin Acetaminophen 650 mg 07/30/20 00:41 08/05/20 21:07 Tylenol PO 650 mg Q4H PRN Administration Pain MILD(1-3)/Fever >100.5/LANZA Albuterol 0.63 mg 07/30/20 07:01 Proventil IH Q4HRT PRN Shortness Of Breath Amlodipine Besylate 10 mg 07/30/20 10:00 08/09/20 09:11 Amlodipine PO 10 mg DAILY KESHIA Administration Apixaban 5 mg 07/30/20 10:00 08/09/20 09:11 Eliquis PO 5 mg BID KESHIA Administration Protocol Carvedilol 25 mg 07/30/20 08:00 08/09/20 17:33 Coreg PO Not Given BID@0800,1700 KESHIA Clonidine HCl 0.1 mg 07/30/20 10:00 08/09/20 09:11 Catapres PO 0.1 mg BID KESHIA Administration Dextrose 0 ml 07/30/20 00:41 08/01/20 21:31 D50w (25gm) Syringe IV 50 ml Q30MIN PRN Administration Hypoglycemia Protocol Epoetin Wale 20,000 unit 08/01/20 14:40 08/09/20 12:18 Procrit IV 20,000 unit BRENDAN PRN Administration hemodialysis Hydralazine HCl 100 mg 07/30/20 14:00 08/09/20 14:08 Apresoline PO 100 mg Q8HR KESHIA Administration Sodium Chloride 100 mls @ 999 mls/hr 08/01/20 09:00 Nacl 0.9% IV BRENDAN PRN Hypotension Insulin Human Lispro 0 unit 07/30/20 07:30 08/09/20 18:30 Humalog SUB-Q 2 unit ACHS KESHIA Administration Protocol Magnesium Hydroxide 30 ml 07/30/20 00:41 Milk Of Magnesia PO Q4H PRN Constipation Ondansetron HCl 4 mg 07/30/20 00:41 07/30/20 22:01 Zofran IV 4 mg Q8H PRN Administration Nausea And Vomiting Pantoprazole Sodium 40 mg 07/30/20 22:00 08/08/20 22:11 Protonix PO 40 mg QHS KESHIA Administration Sertraline HCl 50 mg 07/30/20 12:00 08/09/20 09:11 Zoloft PO 50 mg DAILY KESHIA Administration Sodium Chloride 10 ml 07/30/20 10:00 08/09/20 09:15 Sodium Chloride Flush Syringe 10 Ml IV Not Given BID KESHIA Sodium Chloride 10 ml 07/30/20 00:41 Sodium Chloride Flush Syringe 10 Ml IV PRN PRN LINE FLUSH Nutrition/Malnutrition Assess - Dietary Evaluation Nutrition/Malnutrition Findings: Nutrition Notes Start: 07/30/20 10:57 Freq: Status: Active Protocol: Document 08/09/20 13:58 AL (Rec: 08/09/20 14:02 AL [id number]) Co-Sign 08/09/20 13:58 MK Nutrition Notes Initial or Follow up Brief Note Current Diagnosis CKD (stage V CKD),Diabetes, Hypertension Other Pertinent Diagnosis ESRD - HD, Abd pain, hx of erosive esophagitis, gastroparesis Current Diet Renal [place] Body Weight (kg) 0 Subjective/Other Information F/U for stable intakes. Pt was not in room at time of visit due to procedure. Nutrition Intervention Follow-Up By: 08/11/20 Additional Comments F/U for stable intakes
[2020-08-09] MEDS: PANTOPRAZOLE 40 MG TAB PO SCH (21:41)
[2020-08-10] MEDS: hydrALAZINE 100 MG TAB PO SCH ×2 (05:28→13:26)
[2020-08-10] MEDS: INSULIN LISPRO 100 UNIT/ML VIAL 3 mL SUB-Q SCH ×3 (08:10→16:10)
[2020-08-10] MEDS: carvediloL 25 MG TAB PO SCH ×2 (08:20→16:11)
[2020-08-10] MEDS: SERTRALINE 50 MG TAB PO SCH (09:19)
[2020-08-10] MEDS: amLODIPine 10 MG TAB PO SCH (09:19)
[2020-08-10] MEDS: cloNIDine 0.1 MG TAB PO SCH (09:20)
--- NOTE | 2020-08-10 11:07 | Progress Note ---
Assessment and Plan Cultures: Blood culture 07/30/2020 MRSA 3 of 4 bottles. Urine culture 07/29/2020 ESBL E coli. Blood culture 07/31/2020 MRSA 3 of 4 bottles Blood culture 08/02/2020 MRSA Cath tip culture 08/02/2020 MRSA Blood culture 08/05/2020: no growth Assessment: 34 years old male with history of end-stage renal disease on hemodialysis via left IJ PermCath, noncompliance, hypertension, diabetes mellitus, gastric ulcer, recurrent ulcerative esophagitis, noncompliance, known to our service, recent ESBL Klebsiella bacteremia secondary to PermCath infection, readmitted on 07/29/2020 due to nausea and vomiting for several days, patient missed dialysis twice: #Sepsis: secondary to MRSA bacteremia. #MRSA bacteremia: likely secondary to hemodialysis access infection. Patient missed 3 hemodialysis sections, dressing was not changed for almost 10 days. Transthoracic echo no evidence of vegetation. Hemodialysis catheter removed on 08/03/2020. Had tunneled HD catheter placed on 08/08/2020. #ESBL E. coli UTI: pt makes urine. Urine culture grew E. coli UTI. Treated with ertapenem x 3 days. #History of recent ESBL Klebsiella bacteremia: Had right IJ PermCath removal on 06/24/2020 with resolution of bacteremia. Got about 6 days of IV Meropenem via midline after that but his line fell out 6 days post discharge. He never contacted our office, states he came to the ER here (no record of this in the EMR) and went home. He has been doing well without abx for more than 1 week. Given his issues with non compliance and no evidence of sepsis, I would not restart IV abx. More importantly, he had source control during previous admission. #Diabetes mellitus: Uncontrolled. #ESRD on HD #Noncompliance Recs: -continue vancomycin IV 1 g after each hemodialysis session for 4 weeks until 09/02/2020. Orders were sent to housing case manager by Dr. Urbina. Will sign off. Please call with questions. Pito Valdez MD, FACP [facility] ([facility]) C: [phone] O: [phone] F: [phone] Subjective Date of service: 08/10/20 Principal diagnosis: Hyperkalemia, end-stage renal disease, vomiting Interval history: No fever. Denies any complaints. Objective - Exam Narrative Exam: Physical Exam: Constitutional: Alert, cooperative. No acute distress Head, Ears, Nose: Normocephalic, atraumatic. External ears, nose normal Eyes: Conjunctivae/corneas clear. No icterus. No ptosis. Neck: Supple, no meningeal signs Cardiovascular: S1, S2 normal. Respiratory: Good air entry, clear to auscultation bilaterally GI: Soft, non-tender; bowel sounds normal. No peritoneal signs Musculoskeletal: No pedal edema, no cyanosis. Right great toe stump, well-healed. PermCath + Skin: No rash or abscess Hem/Lymphatic: No palpable cervical or supraclavicular nodes. No lymphangitis Psych: Flat affect Neurological: Awake, alert, oriented. No gross abnormality. - Constitutional Vitals: Vital Signs Temp Pulse Resp BP Pulse Ox 98.3 F 73 20 123/60 94 08/10/20 08:41 08/10/20 09:20 08/10/20 08:41 08/10/20 09:20 08/10/20 03:59 Temperature -Last 24 Hours Temperature 98.3 F Temperature 98.7 F Temperature 98.3 F Temperature 98.5 F Temperature 98.3 F Temperature 98.2 F - Labs CBC & Chem 7: 08/09/20 09:06 08/09/20 09:06 Labs: Abnormal lab results 08/09/20 08/09/20 08/09/20 Range/Units 11:55 16:29 20:41 POC Glucose 172 H 109 H (70-105) Crossmatch See Detail
--- NOTE | 2020-08-10 12:17 | Progress Note ---
Assessment and Plan Assessment: ESRD on Hemodialysis: Hyperkalemia: Abdominal Pain: HTN: Possible UTI: Depression: ACD due to ESRD: Plan: -No new chemistries noted at present -S/P perm-cath removal by Vascular Surgeon -Dr. Benítez on 08/03/20 for line holiday due to MRSA Bacteremia. New Perm-cath was placed on 08/08/20 -S/P hemodialysis yesterday. Hemodialysis again today for UF and clearance -Fluid restriction of 1 liter per day -Anemia-On Epogen 20,000 units with HD and can transfuse PRBC's as needed -Renally dose medications -Strict I/Os monitoring -Obtain daily weights -Assess dialysis needs daily -Patient can be discharged back to his outpatient dialysis clinic under the care of his outpatient business office director when cleared by ID Subjective Date of service: 08/10/20 Principal diagnosis: Hyperkalemia, end-stage renal disease, vomiting Interval history: Patient resting in bed. Objective - Vital Signs Vital signs: Vital Signs - 12hr 08/10/20 08/10/20 08/10/20 03:59 08:20 08:41 Temperature 98.7 F 98.3 F Pulse Rate 72 72 Respiratory 16 20 Rate Blood Pressure 127/60 122/58 122/58 O2 Sat by Pulse 94 Oximetry 08/10/20 08/10/20 09:19 09:20 Temperature Pulse Rate 73 73 Respiratory Rate Blood Pressure 123/60 123/60 O2 Sat by Pulse Oximetry - General Appearance General appearance: well-developed, fatigue EENT: ATNC, PERRL Neck: no JVD Respiratory: Present: Decreased Breath Sounds Cardiology: S1S2 Gastrointestinal: normoactive bowel sounds Integumentary: warm and dry Neurologic: alert and oriented x3 Musculoskeletal: other (No edema) - Lab 08/09/20 09:06 08/09/20 09:06 Most recent lab results Calcium 9.5 mg/dL (8.4-10.2) 08/09/20 09:06 Medications & Allergies - Medications Allergies/Adverse Reactions: Allergies No Known Allergies Allergy (Verified 07/20/20 15:05) Home Medications: Home Medications Medication Instructions Recorded Confirmed Last Taken Type Albuterol Sulfate [Albuterol 0.63% 0.63 mg IH Q4HR PRN #50 04/17/20 07/30/20 05/30/20 Rx NEBS] Lispro Insulin [HumaLOG] 5 unit SQ AC #1 vial 04/17/20 07/30/20 06/15/20 Rx Apixaban [Eliquis] 1 tab PO BID #60 tablet 07/17/20 07/30/20 07/22/20 08:00 Rx Insulin Glargine [Lantus VIAL] 10 units SUB-Q QHS units 07/17/20 07/30/20 07/21/20 20:00 Rx Metoclopramide [Reglan TAB] 5 mg PO ACHS PRN #120 tablet 07/17/20 07/30/20 07/22/20 08:00 Rx Pantoprazole [Protonix TAB] 40 mg PO DAILY #60 tablet 07/17/20 07/30/20 07/22/20 08:00 Rx amLODIPine 10 mg PO DAILY #30 tablet 07/17/20 07/30/20 07/22/20 08:00 Rx carvediloL [Coreg] 25 mg PO BID 30 Days #60 tablet 07/17/20 07/30/20 07/22/20 08:00 Rx cloNIDine [Catapres] 0.1 mg PO BID #60 tablet 07/17/20 07/30/20 07/22/20 08:00 Rx hydrALAZINE [Apresoline TAB] 100 mg PO Q8HR #90 tab 07/17/20 07/30/20 07/22/20 08:00 Rx Active Medications: Generic Name Dose Route Start Last Admin Trade Name Freq PRN Reason Stop Dose Admin Acetaminophen 650 mg 07/30/20 00:41 08/05/20 21:07 Tylenol PO 650 mg Q4H PRN Administration Pain MILD(1-3)/Fever >100.5/LANZA Albuterol 0.63 mg 07/30/20 07:01 Proventil IH Q4HRT PRN Shortness Of Breath Amlodipine Besylate 10 mg 07/30/20 10:00 08/10/20 09:19 Amlodipine PO 10 mg DAILY KESHIA Administration Carvedilol 25 mg 07/30/20 08:00 08/10/20 08:20 Coreg PO 25 mg BID@0800,1700 KESHIA Administration Clonidine HCl 0.1 mg 07/30/20 10:00 08/10/20 09:20 Catapres PO 0.1 mg BID KESHIA Administration Dextrose 0 ml 07/30/20 00:41 08/01/20 21:31 D50w (25gm) Syringe IV 50 ml Q30MIN PRN Administration Hypoglycemia Protocol Epoetin Wale 20,000 unit 08/01/20 14:40 08/09/20 12:18 Procrit IV 20,000 unit BRNEDAN PRN Administration hemodialysis Hydralazine HCl 100 mg 07/30/20 14:00 08/10/20 05:28 Apresoline PO 100 mg Q8HR KESHIA Administration Sodium Chloride 100 mls @ 999 mls/hr 08/01/20 09:00 Nacl 0.9% IV BRENDAN PRN Hypotension Insulin Human Lispro 0 unit 07/30/20 07:30 08/10/20 08:10 Humalog SUB-Q 2 unit ACHS KESHIA Administration Protocol Magnesium Hydroxide 30 ml 07/30/20 00:41 Milk Of Magnesia PO Q4H PRN Constipation Ondansetron HCl 4 mg 07/30/20 00:41 07/30/20 22:01 Zofran IV 4 mg Q8H PRN Administration Nausea And Vomiting Pantoprazole Sodium 40 mg 07/30/20 22:00 08/09/20 21:41 Protonix PO 40 mg QHS KESHIA Administration Sertraline HCl 50 mg 07/30/20 12:00 08/10/20 09:19 Zoloft PO 50 mg DAILY KESHIA Administration Sodium Chloride 10 ml 07/30/20 10:00 08/10/20 09:20 Sodium Chloride Flush Syringe 10 Ml IV 10 ml BID KESHIA Administration Sodium Chloride 10 ml 07/30/20 00:41 Sodium Chloride Flush Syringe 10 Ml IV PRN PRN LINE FLUSH
[2020-08-10] MEDS ORDERED: SODIUM CHLORIDE 0.9% 500 ML 500 ML ONE (12:22)
--- NOTE | 2020-08-10 13:58 | Discharge Summary ---
Providers - Providers Date of Admission: 07/29/20 22:16 Date of discharge: 08/10/20 Attending physician: JIMBO DOWLING 07/29/20 23:12 Consult to Physician [CONS] Urgent Comment: Dr. Weller spoke with Dr. Clark @ [id number] Consulting Provider: JOSSIE CLARK Physician Instructions: Reason For Exam: missed HD 07/30/20 00:41 Consult to Dietitian/Nutrition [CONS] Routine Physician Instructions: Reason For Exam: Reason for Consult: Diet education 07/30/20 06:57 Consult to Mental Health [CONS] Routine Reason For Exam: Depression 08/01/20 08:58 Consult to Physician [CONS] Routine Comment: Consulting Provider: VANESSA ALVARADO Physician Instructions: Reason For Exam: Sepsis/staph aureus bacteremia/ESBL UTI 08/01/20 20:35 Consult to Physician [CONS] Routine Comment: Consulting Provider: ERNESTINA REYES Physician Instructions: Reason For Exam: Sepsis /HD catheter removal[rec by ID] 08/07/20 09:47 Consult to Case Management [CONS] Stat Services Needed at Discharge: Other Notified:: peoplesoft functional analyst Additional Physician Instructions: [facility] ([facility]) [address] [place] [address] OUTPATIENT PARENTERAL ANTIBIOTIC THERAPY (OPAT) ORDERS Diagnoses: MRSA bacteremia Administer: vancomycin IV 1g after each hemodialysis for 4 weeks until 09/02/2020. Line: Maintain IV access with weekly dressing changes and locks per protocol. Labs: Every Saturday CBC, Creatinine, vancomcyin trough. Please fax results to [phone] and call [phone] for critical lab results. Chloe Urbina MD Infectious Diseases Chief Growth Officer [facility] ([facility]) O: [phone] F: [phone] [facility] Hospitalization Condition: Stable Hospital course: Patient received hemodialysis today Hemoglobin dropped to 7.0, recommend 1 unit blood transfusion However blood was not ready during dialysis. Will transfuse tomorrow --Left IJ tunneled cuffed HD catheter placement today Current Visit: Yes Status: Chronic Plan to address problem: Followed by hemodialysis, --Anemia; Hb 7.0-8.2-6.9-7.0 Current Visit: Yes Status: Chronic Plan to address problem: Hemoglobin 7.0 today, switch 1 unit PRBC Chronic anemia of ESRD s/p 1 unit transfusion in the past --Severe sepsis ; secondary to MRSA bacteremia Current Visit: Yes Status: Chronic Plan to address problem: Left IJ permacath removed , new permacath placement tomorrow ID recommend long-term vancomycin for 4 wks TTE negative for vegetation --Severe sepsis ; secondary to UTI : POA Current Visit: Yes Status: Chronic Plan to address problem: Fever, leukocytosis, positive urine cultures ESBL s/p ertapenem,x3days, contact isolation, ID following --Hyperkalemia Current Visit: Yes Status: Acute . Plan to address problem: Improved , HD per schedule -- End-stage renal disease needing dialysis Current Visit: Yes Status: Chronic Plan to address problem: On hemodialysis , MRSA sepsis ID recommended to remove HD catheter s/p removal of left IJ permacath [due to MRSA Bacteremia] New permacath placement tomorrow 08/08/2020 Followed by hemodialysis --Erosive esophagitis Current Visit: Yes Status: Acute Plan to address problem: IV Protonix, GI consult if needed -- Hypertensive urgency/POA Current Visit: Yes Status: Acute Plan to address problem: Blood pressure moderate control Continue current antihypertensives and PRN medications --Gastroparesis Current Visit: Yes Status: Acute Plan to address problem: Symptomatic treatment Antiemetics, Reglan as needed. --Depression; Current Visit: Yes Status: Acute Plan to address problem: Denies suicidal thoughts or ideation Psych following, continue Zoloft --Medical noncompliance; Current Visit: Yes Status: Acute Plan to address problem: patient strongly counseled the importance of adhering to the treatment plan Adhere to medications diet follow-up visit hemodialysis Patient verbalized understanding -- DVT prophylaxis Current Visit: No Status: Acute Plan to address problem: On heparin and GI prophylaxis Protonix Disposition: - TO HOME OR SELFCARE Time spent for discharge: 35 min Core Measure Documentation - Palliative Care Palliative Care/ Comfort Measures: Not Applicable - Core Measures Any of the following diagnoses?: none Exam - Constitutional Vitals: Temp Pulse Resp BP Pulse Ox 98.2 F 69 15 114/59 98 08/10/20 13:34 08/10/20 13:34 08/10/20 13:34 08/10/20 13:34 08/10/20 13:34 General appearance: Present: no acute distress, well-nourished - EENT Eyes: Present: PERRL, EOM intact - Neck Neck: Present: supple, normal ROM - Respiratory Respiratory effort: normal Respiratory: bilateral: diminished, negative: rales, rhonchi, wheezing - Cardiovascular Rhythm: regular Heart Sounds: Present: S1 & S2 - Extremities Extremities: no ischemia, No edema - Abdominal General gastrointestinal: Present: soft, non-tender, non-distended, normal bowel sounds - Integumentary Integumentary: Present: clear, warm - Musculoskeletal Musculoskeletal: strength equal bilaterally, generalized weakness - Psychiatric Psychiatric: appropriate mood/affect, cooperative - Neurologic Neurologic: moves all extremities Plan Activity: no restrictions Diet: diabetic, renal Additional Instructions: Follow renal / hemodialysis per schedule. ID recommend vancomycin IV 1 g after each hemodialysis session for 4 weeks until 09/02/2020 [information sent to the dialysis center]. If you have worsening symptoms contact MD or go to emergency room Follow up with: PERRI COOPER MD [Staff Physician] - [facility]CR[facility] [Primary Care Provider] - 7 Days TEJAL TOVAR MD [Staff Physician] - 7 Days Prescriptions: Sertraline [Zoloft] 50 mg PO DAILY #30 tablet
[2020-08-10 16:24] VITALS: BP 117/66
== END 2020-08-10 19:06 | disposition home or self-care (01) | DRG 314 ==
LOC: ED 14:39 → OBSVTOIN 22:16 → 4A 22:16
PROVIDERS: ADMIT Internal Medicine Geriatric Medicine; ATTEND Internal Medicine
PROC: 0JPT3XZ Removal of Tunneled Vascular Access Device from Trunk Subcutaneous Tissue and Fascia, Percutaneous Approach (ICD-10-PCS; principal; 2020-08-01)
PROC: 30233N1 Transfusion of Nonautologous Red Blood Cells into Peripheral Vein, Percutaneous Approach (ICD-10-PCS; 2020-08-01)
PROC: 02PY33Z Removal of Infusion Device from Great Vessel, Percutaneous Approach (ICD-10-PCS; 2020-08-01)
PROC: 5A1D70Z Performance of Urinary Filtration, Intermittent, Less than 6 Hours Per Day (ICD-10-PCS; 2020-08-01)
PROC: 5A1D70Z Performance of Urinary Filtration, Intermittent, Less than 6 Hours Per Day (ICD-10-PCS; 2020-08-06)
PROC: 5A1D70Z Performance of Urinary Filtration, Intermittent, Less than 6 Hours Per Day (ICD-10-PCS; 2020-08-07)
PROC: 0JH63XZ Insertion of Tunneled Vascular Access Device into Chest Subcutaneous Tissue and Fascia, Percutaneous Approach (ICD-10-PCS; 2020-08-08)
PROC: B548ZZA Ultrasonography of Superior Vena Cava, Guidance (ICD-10-PCS; 2020-08-08)
PROC: 02H633Z Insertion of Infusion Device into Right Atrium, Percutaneous Approach (ICD-10-PCS; 2020-08-08)
PROC: B5181ZA Fluoroscopy of Superior Vena Cava using Low Osmolar Contrast, Guidance (ICD-10-PCS; 2020-08-08)
PROC: B5181ZZ Fluoroscopy of Superior Vena Cava using Low Osmolar Contrast (ICD-10-PCS; 2020-08-08)
PROC: B51V1ZZ Fluoroscopy of Other Veins using Low Osmolar Contrast (ICD-10-PCS; 2020-08-08)
PROC: 5A1D70Z Performance of Urinary Filtration, Intermittent, Less than 6 Hours Per Day (ICD-10-PCS; 2020-08-09)
DX: T82.7XXA Infection and inflammatory reaction due to other cardiac and vascular devices, implants and grafts, initial encounter (principal); A41.02 Sepsis due to Methicillin resistant Staphylococcus aureus; N18.6 End stage renal disease; A41.51 Sepsis due to Escherichia coli [E. coli]; R65.20 Severe sepsis without septic shock; I12.0 Hypertensive chronic kidney disease with stage 5 chronic kidney disease or end stage renal disease; K22.10 Ulcer of esophagus without bleeding; N39.0 Urinary tract infection, site not specified; F32.1 Major depressive disorder, single episode, moderate; E87.5 Hyperkalemia; I16.0 Hypertensive urgency; K31.84 Gastroparesis; E11.22 Type 2 diabetes mellitus with diabetic chronic kidney disease; Z99.2 Dependence on renal dialysis; Z79.4 Long term (current) use of insulin; E11.43 Type 2 diabetes mellitus with diabetic autonomic (poly)neuropathy; I25.2 Old myocardial infarction; K21.9 Gastro-esophageal reflux disease without esophagitis; J44.9 Chronic obstructive pulmonary disease, unspecified; J45.909 Unspecified asthma, uncomplicated; Z90.49 Acquired absence of other specified parts of digestive tract; D64.9 Anemia, unspecified; Z91.14 Patient's other noncompliance with medication regimen; Y83.9 Surgical procedure, unspecified as the cause of abnormal reaction of the patient, or of later complication, without mention of misadventure at the time of the procedure; Y92.9 Unspecified place or not applicable
CPT/HCPCS: 36415; 36430; 36558; 77001; 80048; 80074; 80202; 80307; 80320; 81001; 82962; 85007; 85025; 85610; 86850; 86900; 86901; 86920; 87040; 87076; 87086; 87116; 87186; 93005; 93306; 94644; 96365; G0378; C1750; C1769; C9113; G0480; J0360; J0696; J0885; J1335; J1644; J1815; J2250; J2405; J2543; J3010; J3370; J7040; J7050; P9016; Q9967

== ENCOUNTER 2020-08-17 19:53 | Observation (INO) | payer MEDICARE ==
--- NOTE | 2020-08-17 20:48 | Emergency Department Report ---
ED General Adult HPI - General Chief complaint: Nausea/Vomiting/Diarrhea Stated complaint: DIFFICULTY IN BREATHING PUI?: No Time Seen by Provider: 08/17/20 20:43 Source: patient, EMS Mode of arrival: Stretcher Limitations: No Limitations - History of Present Illness Initial comments: Patient is a 34-year-old male that presents emergency room with complaints of nausea vomiting and vomiting blood. Patient states his symptoms started yesterday at 5 PM. Patient has been to this emergency room multiple times for the same complaint. Patient states he is having abdominal pain. Patient states he has a history of diabetes and gastroparesis. Patient is also on hemodialysis for end-stage renal disease. Patient denies chest pain. Patient states when he vomits he had some shortness of breath. Patient states shortness of breath has resolved. Patient denies fever and chills. Patient denies chest pain. Patient states he missed his last 3 dialysis treatments. Patient's last dialysis treatment was on August 13. Patient denies recent travel. Patient denies recent international travel. Patient denies exposure to the novel coronavirus. Patient denies sick contacts. Patient denies fever and chills. Patient denies cough. Patient denies diarrhea. Patient denies coming in contact with anybody with symptoms of the novel coronavirus. -: Sudden Location: abdomen Severity scale (0 -10): 10 Quality: stabbing Consistency: constant Improves with: rest Worsens with: movement, other (Vomiting) Associated Symptoms: nausea/vomiting. denies: confusion, chest pain, cough, diaphoresis, fever/chills, headaches, loss of appetite, malaise, syncope, weakness Treatments Prior to Arrival: none - Related Data Previous Rx's Medication Instructions Recorded Last Taken Type Albuterol Sulfate [Albuterol 0.63% 0.63 mg IH Q4HR PRN #50 04/17/20 05/30/20 Rx NEBS] Lispro Insulin [HumaLOG] 5 unit SQ AC #1 vial 04/17/20 06/15/20 Rx Apixaban [Eliquis] 1 tab PO BID #60 tablet 07/17/20 07/22/20 08:00 Rx Insulin Glargine [Lantus VIAL] 10 units SUB-Q QHS units 07/17/20 07/21/20 20:00 Rx Metoclopramide [Reglan TAB] 5 mg PO ACHS PRN #120 tablet 07/17/20 07/22/20 08:00 Rx Pantoprazole [Protonix TAB] 40 mg PO DAILY #60 tablet 07/17/20 07/22/20 08:00 Rx amLODIPine 10 mg PO DAILY #30 tablet 07/17/20 07/22/20 08:00 Rx carvediloL [Coreg] 25 mg PO BID 30 Days #60 tablet 07/17/20 07/22/20 08:00 Rx cloNIDine [Catapres] 0.1 mg PO BID #60 tablet 07/17/20 07/22/20 08:00 Rx hydrALAZINE [Apresoline TAB] 100 mg PO Q8HR #90 tab 07/17/20 07/22/20 08:00 Rx Sertraline [Zoloft] 50 mg PO DAILY #30 tablet 08/10/20 Unknown Rx Allergies Allergy/AdvReac Type Severity Reaction Status Date / Time No Known Allergies Allergy Verified 07/20/20 15:05 ED Review of Systems ROS: Stated complaint: DIFFICULTY IN BREATHING Other details as noted in HPI Constitutional: denies: chills, fever Eyes: denies: eye pain, eye discharge, vision change ENT: denies: ear pain, throat pain Respiratory: shortness of breath. denies: cough, wheezing Cardiovascular: denies: chest pain, palpitations Endocrine: no symptoms reported Gastrointestinal: abdominal pain, nausea, vomiting, hematemesis. denies: diarrhea, constipation, melena Genitourinary: denies: urgency, dysuria Musculoskeletal: denies: back pain, joint swelling, arthralgia Skin: denies: rash, lesions Neurological: denies: headache, weakness, paresthesias Psychiatric: denies: anxiety, depression Hematological/Lymphatic: denies: easy bleeding, easy bruising ED Past Medical Hx - Past Medical History Previous Medical History?: Yes Hx Hypertension: Yes Hx Heart Attack/AMI: Yes (NON-STEMI ELEVATED MYOCARDIAL INFARCTION) Hx Congestive Heart Failure: Yes Hx Diabetes: Yes (TYPE 1) Hx Deep Vein Thrombosis: No Hx Pulmonary Embolism: No Hx GERD: Yes Hx Liver Disease: No Hx Renal Disease: No Hx Sickle Cell Disease: No Hx Arthritis: No Hx Kidney Stones: No Hx Asthma: Yes Hx COPD: Yes Hx Tuberculosis: No Hx HIV: No Additional medical history: Ulcerative esophagitis, Gastroparesis HD MWF - Surgical History Past Surgical History?: Yes Hx Coronary Stent: No Hx Pacemaker: No Hx Internal Defibrillator: No Hx Cholecystectomy: Yes Hx Appendectomy: Yes Additional Surgical History: right great toe removed, Right chest PERMA-CATH - Family History Family history: no significant - Social History Smoking Status: Never Smoker Substance Use Type: None - Medications Home Medications: Home Medications Medication Instructions Recorded Confirmed Last Taken Type Albuterol Sulfate [Albuterol 0.63% 0.63 mg IH Q4HR PRN #50 04/17/20 07/30/20 05/30/20 Rx NEBS] Lispro Insulin [HumaLOG] 5 unit SQ AC #1 vial 04/17/20 07/30/20 06/15/20 Rx Apixaban [Eliquis] 1 tab PO BID #60 tablet 07/17/20 07/30/20 07/22/20 08:00 Rx Insulin Glargine [Lantus VIAL] 10 units SUB-Q QHS units 07/17/20 07/30/20 07/21/20 20:00 Rx Metoclopramide [Reglan TAB] 5 mg PO ACHS PRN #120 tablet 07/17/20 07/30/20 07/22/20 08:00 Rx Pantoprazole [Protonix TAB] 40 mg PO DAILY #60 tablet 07/17/20 07/30/20 07/22/20 08:00 Rx amLODIPine 10 mg PO DAILY #30 tablet 07/17/20 07/30/20 07/22/20 08:00 Rx carvediloL [Coreg] 25 mg PO BID 30 Days #60 tablet 07/17/20 07/30/20 07/22/20 08:00 Rx cloNIDine [Catapres] 0.1 mg PO BID #60 tablet 07/17/20 07/30/20 07/22/20 08:00 Rx hydrALAZINE [Apresoline TAB] 100 mg PO Q8HR #90 tab 07/17/20 07/30/20 07/22/20 08:00 Rx Sertraline [Zoloft] 50 mg PO DAILY #30 tablet 08/10/20 Unknown Rx ED Physical Exam - General Limitations: No Limitations General appearance: alert, in no apparent distress - Head Head exam: Present: atraumatic, normocephalic - Eye Eye exam: Present: normal appearance - ENT ENT exam: Present: mucous membranes moist - Neck Neck exam: Present: normal inspection - Respiratory Respiratory exam: Present: normal lung sounds bilaterally. Absent: respiratory distress - Cardiovascular Cardiovascular Exam: Present: regular rate, normal rhythm. Absent: systolic murmur, diastolic murmur, rubs, gallop - GI/Abdominal GI/Abdominal exam: Present: soft, tenderness (Generalized tenderness), normal bowel sounds - Rectal Rectal exam: Present: deferred - Extremities Exam Extremities exam: Present: normal inspection - Back Exam Back exam: Present: normal inspection - Neurological Exam Neurological exam: Present: alert, oriented X3 - Psychiatric Psychiatric exam: Present: normal affect, normal mood - Skin Skin exam: Present: warm, dry, intact, normal color. Absent: rash ED Course Vital Signs 08/17/20 08/17/20 08/17/20 19:55 20:36 21:26 Temperature 98.6 F 98.6 F Pulse Rate 101 H 101 H 98 H Respiratory 18 18 Rate Blood Pressure 202/118 211/123 Blood Pressure 202/118 [Left] O2 Sat by Pulse 100 100 Oximetry 08/17/20 08/17/20 08/17/20 21:30 22:00 22:30 Temperature Pulse Rate 93 H 96 H 94 H Respiratory 16 19 20 Rate Blood Pressure Blood Pressure 201/103 196/102 201/104 [Left] O2 Sat by Pulse 93 100 93 Oximetry 08/17/20 23:00 Temperature Pulse Rate 93 H Respiratory 28 H Rate Blood Pressure Blood Pressure 191/91 [Left] O2 Sat by Pulse 98 Oximetry - Reevaluation(s) Reevaluation #1: Nurse unable to start a peripheral IV. A left EJ was placed. See procedure note. 08/17/20 21:09 Reevaluation #2: Patient still complaining of nausea and pain. Patient will be given another dose of Zofran and Dilaudid. I discussed all results with patient. I discussed plan of care with patient. Patient agrees with plan of care and admission. Patient to be admitted to the hospitalist service. 08/17/20 22:13 - Consultations Consultation #1: I discussed case with nephrology. 08/17/20 22:09 Consultation #2: Hospitalist consulted for admission. Hospitalist to admit patient. Bridge orders placed. 08/17/20 22:14 Consultation #3: GI consult placed. 08/17/20 22:34 - EJ/Peripheral Line Neck L Time Out Performed: Yes Indications: nurses unable to establis Skin Cleansed in Sterile Fashion: No Size: 20 Dressing Placed: Tegaderm, tape Patient Tolerated Procedure: well, no complications ED Medical Decision Making - Lab Data Result diagrams: 08/17/20 21:10 08/17/20 21:10 - Radiology Data Radiology results: report reviewed, image reviewed interpreted by me: Chest x-ray: No pneumonia, no pneumothorax, no foreign body, no osseous findings, no acute findings except mild edema. - Medical Decision Making Patient is a 34-year-old male that presents emergency room for vomiting blood, abdominal pain, shortness of breath. Patient shortness of breath resolved prior to initial evaluation. Patient had labs done. Patient's labs were consistent with anemia, end-stage renal disease. Nephrology consulted. GI consulted. Patient's initial blood pressure was significantly elevated and patient was given labetalol and his blood pressure improved. Patient admitted to the ospital service for further evaluation treatment. - Differential Diagnosis abd pain. Gastroparesis, shortness of breath, n/v, hematemesis Critical Care Time: Yes Critical care time in (mins) excluding proc time.: 35 Critical care attestation.: If time is entered above; I have spent that time in minutes in the direct care of this critically ill patient, excluding procedure time. Critical Care Time: 35 minutes ED Disposition Clinical Impression: Hypertensive emergency, Coffee ground emesis, Uremia, End-stage renal disease needing dialysis, Missed dialysis, SOB (shortness of breath), Gastroparesis Hematemesis Qualifiers: Nausea presence: with nausea Qualified Code(s): K92.0 - Hematemesis Anemia Qualifiers: Anemia type: unspecified type Qualified Code(s): D64.9 - Anemia, unspecified Nausea & vomiting Qualifiers: Vomiting type: unspecified Vomiting Intractability: intractable Qualified Code(s): R11.2 - Nausea with vomiting, unspecified Abdominal pain Qualifiers: Abdominal location: generalized Qualified Code(s): R10.84 - Generalized abdominal pain Disposition: OP ADMIT IP TO THIS HOSP Is pt being admited?: Yes Does the pt Need Aspirin: No Condition: Critical Time of Disposition: 22:39
[2020-08-17] MEDS ORDERED: SODIUM CHLORIDE 0.9% 500 ML 500 ML IV ONE (20:49)
[2020-08-17] MEDS ORDERED: ONDANSETRON 4 MG/2 ML INJ IV ONE ×2 (20:49→22:12)
[2020-08-17 21:39] LABS: Basophils # (Auto) 0.1 K/mm3 (0.0-0.1); Basophils % (Auto) 1.2 % (0.0-1.8); Eosinophils % (Auto) 0.4 % (0.0-4.3); Hematocrit 28.6 % (35.5-45.6); Lymphocytes % (Auto) 9.3 % (13.4-35.0); Mean Corpuscular HGB Conc 31 % (32-34); Mean Corpuscular Volume 78 fl (84-94); Monocytes # (Auto) 0.7 K/mm3 (0.0-0.8); Monocytes % (Auto) 6.5 % (0.0-7.3); Platelet Count 461 K/mm3 (140-440); Red Blood Count 3.66 M/mm3 (3.65-5.03)
[2020-08-17 21:43] LABS: Albumin 3.4 g/dL (3.9-5); Calcium 8.8 mg/dL (8.4-10.2)
[2020-08-17 21:55] LABS: Red Cell Distribution Width 20.1 % (13.2-15.2)
[2020-08-17] MEDS ORDERED: HYDROmorphone 2 MG/1 ML INJ IV ONE (22:12)
--- NOTE | 2020-08-17 23:19 | XRay Report ---
CHEST 1 VIEW INDICATION: sob COMPARISON: 07/05/2020 FINDINGS: Support devices: Unchanged. Heart: Mildly enlarged but stable Lungs/Pleura: There is suggestion of minimal interstitial edema, but this is unchanged from previous exams. No significant pleural fluid. IMPRESSION: 1. Minimal interstitial edema. No significant interval change. Signer Name: Temo Malone MD Signed: 08/17/2020 11:14 PM Workstation Name: [email or web address]
[2020-08-18] MEDS ORDERED: HYDROmorphone 1 MG/1 ML INJ IV PRN (04:33)
--- NOTE | 2020-08-18 05:27 | History and Physical Report ---
History of Present Illness Date of examination: 08/17/20 Date of admission: 08/17/20 23:06 Chief complaint: Persistent vomiting for couple of days History of present illness: 34-year-old male present with a chief complaint of vomiting which is blood- streaked and abdominal pain. The patient states he developed abdominal pain and blood-streaked vomiting this morning. Patient states he has vomitus with streaks of blood. Patient states his last bowel movement occurred approximately 30 minutes ago and was normal document hello document [id number] man she 8 3 we will try to reach you she coded 3 times and we could not revive her thank you. Patient denies melena or bright red blood per rectum. The patient has a history of end-stage renal disease and normally receives dialysis every Saturday. Last time he received dialysis was one week ago. Patient comes in with the same complaints all the time. Past Medical History Previous Medical History?: Yes Hypertension: Yes Heart Attack/AMI: Yes Congestive Heart Failure: Yes Diabetes: Yes Asthma: Yes Additional medical history: Ulcerative esophagitis, Gastroparesis HD MWF Surgical History Past Surgical History?: Yes Hx Cholecystectomy: (v,vas) HAppendectomy: Yes Additional Surgical History: right great toe removed, Right chest PERMA-CATH Family History Family history: no significant Social History Smoking Status: Never Smoker Substance Use Type: None (Denies illicit drug use) - Medications Home Medications: Home Medications Medication Instructions Recorded Confirmed Last Taken Type Lispro Insulin [HumaLOG] 0 unit SQ TID 11/30/19 01/12/20 01/02/20 History Albuterol Sulfate [Albuterol 0.63% 0.63 mg IH Q4HR PRN #30 01/15/20 Unknown Rx NEBS] Dicyclomine [Bentyl] 10 mg PO QID #30 capsule 01/15/20 Unknown Rx Hydralazine HCl 100 mg PO Q8H #120 tablet 01/15/20 Unknown Rx Metoclopramide [Reglan TAB] 10 mg PO QID #120 tablet 01/15/20 Unknown Rx Ondansetron [Zofran ODT TAB] 4 mg PO Q8HR #10 tab.rapdis 01/15/20 Unknown Rx Pantoprazole [Protonix TAB] 40 mg PO DAILY #30 tablet 01/15/20 Unknown Rx Sucralfate [Carafate] 1 gm PO Q6HR 14 Days 01/15/20 Unknown Rx amLODIPine 10 mg PO DAILY #30 01/15/20 Unknown Rx carvediloL [Coreg] 25 mg PO BID #60 01/15/20 Unknown Rx Review of Systems ROS: Stated complaint: VOMITING BLOOD Other details as noted in HPI Constitutional: diaphoresis Gastrointestinal: abdominal pain, nausea, vomiting Medications and Allergies Allergies Allergy/AdvReac Type Severity Reaction Status Date / Time No Known Allergies Allergy Verified 07/20/20 15:05 Home Medications Medication Instructions Recorded Confirmed Last Taken Type Albuterol Sulfate [Albuterol 0.63% 0.63 mg IH Q4HR PRN #50 04/17/20 08/18/20 05/30/20 Rx NEBS] Lispro Insulin [HumaLOG] 5 unit SQ AC #1 vial 04/17/20 08/18/20 06/15/20 Rx Apixaban [Eliquis] 1 tab PO BID #60 tablet 07/17/20 08/18/20 07/22/20 08:00 Rx Insulin Glargine [Lantus VIAL] 10 units SUB-Q QHS units 07/17/20 08/18/20 07/21/20 20:00 Rx Metoclopramide [Reglan TAB] 5 mg PO ACHS PRN #120 tablet 07/17/20 08/18/20 07/22/20 08:00 Rx Pantoprazole [Protonix TAB] 40 mg PO DAILY #60 tablet 07/17/20 08/18/20 07/22/20 08:00 Rx amLODIPine 10 mg PO DAILY #30 tablet 07/17/20 08/18/20 07/22/20 08:00 Rx cloNIDine [Catapres] 0.1 mg PO BID #60 tablet 07/17/20 08/18/20 07/22/20 08:00 Rx hydrALAZINE [Apresoline TAB] 100 mg PO Q8HR #90 tab 07/17/20 08/18/20 07/22/20 08:00 Rx Sertraline [Zoloft] 50 mg PO DAILY #30 tablet 08/10/20 08/18/20 Unknown Rx carvediloL [Coreg] 25 mg PO BID 08/18/20 08/18/20 Unknown History Active Meds: Active Medications Hydromorphone HCl (Dilaudid) 0.5 mg IV Q4H PRN PRN Reason: Pain , Severe (7-10) Last Admin: 08/18/20 05:15 Dose: 0.5 mg Documented by: Exam - Constitutional Vitals: Temp Pulse Resp BP Pulse Ox 98.8 F 90 20 189/109 98 08/18/20 04:17 08/18/20 04:17 08/18/20 04:17 08/18/20 04:17 08/18/20 04:17 General appearance: Present: no acute distress, well-nourished - EENT Eyes: Present: PERRL ENT: hearing intact, clear oral mucosa - Neck Neck: Present: supple, normal ROM - Respiratory Respiratory effort: normal Respiratory: bilateral: CTA - Cardiovascular Heart rate: 78 Rhythm: regular Heart Sounds: Present: S1 & S2. Absent: rub, click - Extremities Extremities: no ischemia, pulses symmetrical, No edema Peripheral Pulses: within normal limits - Abdominal General gastrointestinal: Present: soft, non-tender, non-distended, normal bowel sounds Male genitourinary: Present: normal - Rectal Rectal Exam: deferred - Integumentary Integumentary: Present: clear, warm, dry - Musculoskeletal Musculoskeletal: gait normal, strength equal bilaterally - Psychiatric Psychiatric: appropriate mood/affect, intact judgment & insight - Neurologic Neurologic: CNII-XII intact, moves all extremities - Allied Health Allied health notes reviewed: nursing, case management Results - Labs CBC & Chem 7: 08/17/20 21:10 08/17/20 21:10 Labs: Laboratory Last Values WBC 11.2 K/mm3 (4.5-11.0) H 08/17/20 21:10 RBC 3.66 M/mm3 (3.65-5.03) 08/17/20 21:10 Hgb 9.0 gm/dl (11.8-15.2) L 08/17/20 21:10 Hct 28.6 % (35.5-45.6) L 08/17/20 21:10 MCV 78 fl (84-94) L 08/17/20 21:10 MCH 25 pg (28-32) L 08/17/20 21:10 MCHC 31 % (32-34) L 08/17/20 21:10 RDW 20.1 % (13.2-15.2) H 08/17/20 21:10 Plt Count 461 K/mm3 (140-440) H 08/17/20 21:10 Lymph % (Auto) 9.3 % (13.4-35.0) L 08/17/20 21:10 [place] % (Auto) 6.5 % (0.0-7.3) 08/17/20 21:10 Eos % (Auto) 0.4 % (0.0-4.3) 08/17/20 21:10 Baso % (Auto) 1.2 % (0.0-1.8) 08/17/20 21:10 Lymph # (Auto) 1.0 K/mm3 (1.2-5.4) L 08/17/20 21:10 [place] # (Auto) 0.7 K/mm3 (0.0-0.8) 08/17/20 21:10 Eos # (Auto) 0.0 K/mm3 (0.0-0.4) 08/17/20 21:10 Baso # (Auto) 0.1 K/mm3 (0.0-0.1) 08/17/20 21:10 Seg Neutrophils % 82.6 % (40.0-70.0) H 08/17/20 21:10 Seg Neutrophils # 9.3 K/mm3 (1.8-7.7) H 08/17/20 21:10 Sodium 139 mmol/L (137-145) 08/17/20 21:10 Potassium 4.7 mmol/L (3.6-5.0) 08/17/20 21:10 Chloride 90.8 mmol/L (98-107) L 08/17/20 21:10 Carbon Dioxide 25 mmol/L (22-30) 08/17/20 21:10 Anion Gap 28 mmol/L 08/17/20 21:10 BUN 53 mg/dL (9-20) H 08/17/20 21:10 Creatinine 13.5 mg/dL (0.8-1.3) H 08/17/20 21:10 Estimated GFR 5 ml/min 08/17/20 21:10 BUN/Creatinine Ratio 4 % 08/17/20 21:10 Glucose 145 mg/dL (75-100) H 08/17/20 21:10 Calcium 8.8 mg/dL (8.4-10.2) 08/17/20 21:10 Total Bilirubin 0.50 mg/dL (0.1-1.2) 08/17/20 21:10 AST 15 units/L (5-40) 08/17/20 21:10 ALT 8 units/L (7-56) 08/17/20 21:10 Alkaline Phosphatase 136 units/L (35-129) H 08/17/20 21:10 Total Protein 8.0 g/dL (6.3-8.2) 08/17/20 21:10 Albumin 3.4 g/dL (3.9-5) L 08/17/20 21:10 Albumin/Globulin Ratio 0.7 % 08/17/20 21:10 Perez/IV: IV Catheter Type [Left INT / Saline Lock Internal Jugular] Assessment and Plan Assessment and plan: Assessment and Plan Advance Directives: Yes (Full code) VTE prophylaxis?: Chemical, Mechanical Plan of care discussed with patient/family: Yes - Patient Problems (1) Upper GI bleeding Current Visit: No Status: Acute Plan to address problem: IV Protonix H/H q8 GI consult Has hx of ulcerative esophagitis (2) Hypertensive crisis Current Visit: Yes Status: Acute Plan to address problem: IV Hydralazine BP meds adjusted IV labetalol every 3 hrs prn (3) End stage renal disease Current Visit: No Status: Chronic Plan to address problem: For HD today (4) IDDM (insulin dependent diabetes mellitus) Current Visit: Yes Status: Chronic Plan to address problem: Coverage for now Check A1c (5) DVT prophylaxis Current Visit: No Status: Acute Advance Directives: Yes (Full code) VTE prophylaxis?: Chemical Plan of care discussed with patient/family: Yes
[2020-08-18] MEDS ORDERED: ALBUTEROL SULFATE 0.63 MG IH PRN (05:36)
[2020-08-18] MEDS ORDERED: ONDANSETRON 4 MG/2 ML INJ IV PRN (05:37)
[2020-08-18] MEDS ORDERED: ACETAMINOPHEN 325 MG TAB PO PRN (05:37)
[2020-08-18] MEDS ORDERED: METOCLOPRAMIDE 10 MG/2 ML INJ IV PRN (05:37)
[2020-08-18] MEDS ORDERED: ALBUTEROL 2.5 MG/3 ML NEBU IH PRN (05:55)
[2020-08-18] MEDS: hydrALAZINE 100 MG TAB PO SCH ×3 (06:36→22:01)
[2020-08-18] MEDS: INSULIN LISPRO 100 UNIT/ML VIAL 3 mL SUB-Q SCH ×3 (06:37→18:15)
[2020-08-18 07:37] LABS: Basophils # (Auto) 0.2 K/mm3 (0.0-0.1); Basophils % (Auto) 1.7 % (0.0-1.8); Eosinophils # (Auto) 0.1 K/mm3 (0.0-0.4); Eosinophils % (Auto) 1.1 % (0.0-4.3); Hematocrit 24.7 % (35.5-45.6); Hemoglobin 7.6 gm/dl (11.8-15.2); Lymphocytes # (Auto) 1.4 K/mm3 (1.2-5.4); Lymphocytes % (Auto) 12.3 % (13.4-35.0); Mean Corpuscular HGB Conc 31 % (32-34); Mean Corpuscular Volume 79 fl (84-94); Monocytes # (Auto) 0.8 K/mm3 (0.0-0.8); Monocytes % (Auto) 7.4 % (0.0-7.3); Platelet Count 462 K/mm3 (140-440); Red Blood Count 3.14 M/mm3 (3.65-5.03)
[2020-08-18 07:43] LABS: Red Cell Distribution Width 20.3 % (13.2-15.2)
[2020-08-18 08:01] LABS: Albumin 3.2 g/dL (3.9-5); Calcium 8.3 mg/dL (8.4-10.2)
[2020-08-18] MEDS: carvediloL 25 MG TAB PO SCH ×2 (10:11→18:15)
[2020-08-18] MEDS: cloNIDine 0.1 MG TAB PO SCH ×2 (10:11→22:01)
[2020-08-18] MEDS: amLODIPine 10 MG TAB PO SCH (10:11)
[2020-08-18] MEDS: PANTOPRAZOLE 40 MG TAB PO SCH (10:11)
[2020-08-18] MEDS: SERTRALINE 50 MG TAB PO SCH (10:13)
[2020-08-18] MEDS ORDERED: SODIUM CHLORIDE 0.9% 100 ML IV PRN (12:06)
--- NOTE | 2020-08-18 12:49 | Progress Note ---
Assessment and Plan Assessment and plan: 34-year-old male with a medical history of diabetes, hypertension, ESRD [Saturday] who presents to the emergency room with a chief complaint of vomiting which is blood-streaked and abdominal pain. The patient states he developed abdominal pain and blood-streaked vomiting this morning. Patient states he has vomitus with streaks of blood. Patient states his last bowel movement occurred approximately 30 minutes prior to presentation. Patient denies melena or bright red blood per rectum. Last time he received dialysis was one week ago. Patient comes in with the same complaints all the time. 08/18. Patient seen and examined at bedside this AM. Complains of abdominal pain and nausea. Patient is n.p.o. pending GI evaluation. Blood pressure is elevated and has been started on IV medication. He misses dialysis 2 days ago. Nephrology has been consulted for continuation of hemodialysis. Plan for today will be control symptoms, GI follow-up and blood pressure control. 1) Upper GI bleeding Current Visit: No Status: Acute Plan to address problem: IV Protonix H/H q8 GI consulted Has hx of ulcerative esophagitis (2) Hypertensive crisis Current Visit: Yes Status: Acute Plan to address problem: IV labetalol every 3 hrs prn Resume p.o. meds when able to take p.o. (3) End stage renal disease Current Visit: No Status: Chronic Plan to address problem: Hemodialysis as scheduled Nephrology consulted (4) IDDM (insulin dependent diabetes mellitus) Current Visit: Yes Status: Chronic Plan to address problem: Insulin-Lantus and lispro Monitor blood glucose closely (5) DVT prophylaxis Current Visit: No Status: Acute Advance Directives: Yes (Full code) VTE prophylaxis?: Chemical Plan of care discussed with patient/family: Yes History Interval history: Patient seen and examined at bedside this morning. He complains of abdominal pain and nausea. GI to evaluate today Hospitalist Physical - Constitutional Vitals: Temp Pulse Resp BP Pulse Ox 98.7 F 84 18 184/99 100 08/18/20 11:59 08/18/20 11:59 08/18/20 11:59 08/18/20 11:59 08/18/20 11:59 General appearance: Present: no acute distress, well-nourished - EENT Eyes: Present: PERRL - Respiratory Respiratory: bilateral: CTA - Cardiovascular Heart Sounds: Present: S1 & S2 - Extremities Extremities: No edema - Abdominal General gastrointestinal: soft, tender, non-distended, normal bowel sounds - Neurologic Neurologic: CNII-XII intact Results - Labs CBC & Chem 7: 08/18/20 07:25 08/18/20 07:25 Labs: Laboratory Last Values WBC 11.0 K/mm3 (4.5-11.0) 08/18/20 07:25 RBC 3.14 M/mm3 (3.65-5.03) L 08/18/20 07:25 Hgb 7.6 gm/dl (11.8-15.2) L 08/18/20 07:25 Hct 24.7 % (35.5-45.6) L 08/18/20 07:25 MCV 79 fl (84-94) L 08/18/20 07:25 MCH 24 pg (28-32) L 08/18/20 07:25 MCHC 31 % (32-34) L 08/18/20 07:25 RDW 20.3 % (13.2-15.2) H 08/18/20 07:25 Plt Count 462 K/mm3 (140-440) H 08/18/20 07:25 Lymph % (Auto) 12.3 % (13.4-35.0) L 08/18/20 07:25 [place] % (Auto) 7.4 % (0.0-7.3) H 08/18/20 07:25 Eos % (Auto) 1.1 % (0.0-4.3) 08/18/20 07:25 Baso % (Auto) 1.7 % (0.0-1.8) 08/18/20 07:25 Lymph # (Auto) 1.4 K/mm3 (1.2-5.4) 08/18/20 07:25 [place] # (Auto) 0.8 K/mm3 (0.0-0.8) 08/18/20 07:25 Eos # (Auto) 0.1 K/mm3 (0.0-0.4) 08/18/20 07:25 Baso # (Auto) 0.2 K/mm3 (0.0-0.1) H 08/18/20 07:25 Seg Neutrophils % 77.5 % (40.0-70.0) H 08/18/20 07:25 Seg Neutrophils # 8.6 K/mm3 (1.8-7.7) H 08/18/20 07:25 Sodium 142 mmol/L (137-145) 08/18/20 07:25 Potassium 4.9 mmol/L (3.6-5.0) 08/18/20 07:25 Chloride 94.0 mmol/L (98-107) L 08/18/20 07:25 Carbon Dioxide 27 mmol/L (22-30) 08/18/20 07:25 Anion Gap 26 mmol/L 08/18/20 07:25 BUN 62 mg/dL (9-20) H 08/18/20 07:25 Creatinine 15.6 mg/dL (0.8-1.3) H 08/18/20 07:25 Estimated GFR 4 ml/min 08/18/20 07:25 BUN/Creatinine Ratio 4 % 08/18/20 07:25 Glucose 134 mg/dL (75-100) H 08/18/20 07:25 POC Glucose 115 (70-105) H 08/18/20 12:12 Calcium 8.3 mg/dL (8.4-10.2) L 08/18/20 07:25 Total Bilirubin 0.40 mg/dL (0.1-1.2) 08/18/20 07:25 AST 11 units/L (5-40) 08/18/20 07:25 ALT 8 units/L (7-56) 08/18/20 07:25 Alkaline Phosphatase 135 units/L (35-129) H 08/18/20 07:25 Total Protein 6.7 g/dL (6.3-8.2) 08/18/20 07:25 Albumin 3.2 g/dL (3.9-5) L 08/18/20 07:25 Albumin/Globulin Ratio 0.9 % 08/18/20 07:25 Perez/IV: IV Catheter Type [Left INT / Saline Lock Internal Jugular] Active Medications - Current Medications Current Medications: Generic Name Dose Route Start Last Admin Trade Name Freq PRN Reason Stop Dose Admin Acetaminophen 650 mg 08/18/20 05:37 Tylenol PO Q4H PRN Pain MILD(1-3)/Fever >100.5/LANZA Albuterol 0.63 mg 08/18/20 05:55 Proventil IH Q4HRT PRN Shortness Of Breath Amlodipine Besylate 10 mg 08/18/20 10:00 08/18/20 10:11 Amlodipine PO Not Given DAILY [facility] Carvedilol 25 mg 08/18/20 08:00 08/18/20 10:11 Coreg PO Not Given BID@0800,1700 [facility] Clonidine HCl 0.1 mg 08/18/20 10:00 08/18/20 10:11 Catapres PO Not Given BID [facility] Hydralazine HCl 100 mg 08/18/20 06:00 08/18/20 06:36 Apresoline PO 100 mg Q8HR [facility] Administration Hydromorphone HCl 0.5 mg 08/18/20 04:33 08/18/20 05:15 Dilaudid IV 0.5 mg Q4H PRN Administration Pain , Severe (7-10) Sodium Chloride 100 mls @ 999 mls/hr 08/18/20 12:06 Nacl 0.9% IV BRENDAN PRN Hypotension Insulin Human Lispro 0 unit 08/18/20 06:00 08/18/20 12:29 Humalog SUB-Q Not Given Q6H [facility] Protocol Labetalol HCl 10 mg 08/18/20 09:28 08/18/20 09:55 Labetalol IV 10 mg Q6H PRN Administration Blood Pressure Metoclopramide HCl 5 mg 08/18/20 05:37 08/18/20 06:37 Reglan IV 5 mg Q6H PRN Administration Nausea And Vomiting Ondansetron HCl 4 mg 08/18/20 05:37 08/18/20 09:57 Zofran IV 4 mg Q3H PRN Administration Nausea And Vomiting Pantoprazole Sodium 40 mg 08/18/20 10:00 08/18/20 10:11 Protonix PO Not Given DAILY [facility] Sertraline HCl 50 mg 08/18/20 10:00 08/18/20 10:13 Zoloft PO Not Given DAILY [facility] Sodium Chloride 10 ml 08/18/20 10:00 08/18/20 10:01 Sodium Chloride Flush Syringe 10 Ml IV 10 ml BID KESHIA Administration Sodium Chloride 10 ml 08/18/20 05:37 Sodium Chloride Flush Syringe 10 Ml IV PRN PRN LINE FLUSH Nutrition/Malnutrition Assess - Dietary Evaluation Nutrition/Malnutrition Findings: Nutrition Notes Start: 08/18/20 11:03 Freq: Status: Active Protocol: Document 08/18/20 11:03 YARELI (Rec: 08/18/20 11:20 YARELI [id number]) Nutrition Notes Need for Assessment generated from: dry talc racker,MST Initial or Follow up Assessment Current Diagnosis CKD (stage V CKD),Diabetes, Hypertension,Heart Failure Other Pertinent Diagnosis ESRD- HD (M,W,F), upper GI bleed, ulcerative esophagitits , gastroparesis Current Diet NPO Labs/Tests BUN 62 Cr 15.4 Pertinent Medications Reviewed Height 6 ft 2 in Weight 87 kg Usual Body Weight 96 kg [place] Body Weight (kg) 86.36 BMI 24.6 Intake Prior to Admission Fair Weight change and time frame 9% wt loss in 1 month Weight Status Appropriate Subjective/Other Information RN screen for MST and skin risk. Terry score 21. Pt reports wt loss but unsure why . Pt reports a normal intake of 1 meal per day. Pt would like supplement when diet advances. Burn Absent Trauma Absent GI Symptoms Nausea,Vomiting Current % PO Negligible Minimum of two criteria No Interpretation of Weight Loss (severe) >5% in 1 month #1 Nutrition Diagnosis Inadequate oral intake Etiology gastroparesis As Evidenced by Signs and Symptoms N/V, NPO Is patient on ventilator? No Is Patient Ambulatory and/or Out of Bed Yes REE-(P[place]-St. or-ambulatory/OOB) [ 2456.675 [id number]] Calculation Used for Recommendations [place]-St or Additional Notes Pro: >105g (>1.2g/kg) Fluid: 1 ml/kcal Nutrition Intervention Change Diet Order: Advance when medically feasible Goal #1 Diet advancement Anticipated Discharge Needs: Renal, ONS PRN Follow-Up By: 08/22/20 Additional Comments FU for diet advancement
--- NOTE | 2020-08-18 13:02 | Consultation ---
History of Present Illness - Reason for Consult Consult date: 08/18/20 end stage renal disease Requesting physician: BRENDA MORFIN - History of Present Illness This is a 34 yo M with past medical history Hypertension, Type 2 DM, gastroparesis, ESRD on HD, with h/o noncompliance of treatments, who presents to [facility] ER with complaints of vomiting which is blood-streaked and abdominal pain. As per patient his last HD was last Sat. Missed treatment last Sat d/t above sym ptoms. Pt receives dialysis at [facility]. Pt was found to be anemic with Hb at 7.6, pt was admitted for further GI w/u and blood transfusion. Renal consult is requested for management of ESRD/HD. Past History Past Medical History: diabetes, hypertension, renal failure Past Surgical History: Other (AVF placement ) Social history: denies: smoking, alcohol abuse, prescription drug abuse, IV drug use Medications and Allergies Allergies Allergy/AdvReac Type Severity Reaction Status Date / Time No Known Allergies Allergy Verified 07/20/20 15:05 Home Medications Medication Instructions Recorded Confirmed Last Taken Type Albuterol Sulfate [Albuterol 0.63% 0.63 mg IH Q4HR PRN #50 04/17/20 08/18/20 05/30/20 Rx NEBS] Lispro Insulin [HumaLOG] 5 unit SQ AC #1 vial 04/17/20 08/18/20 06/15/20 Rx Apixaban [Eliquis] 1 tab PO BID #60 tablet 07/17/20 08/18/20 07/22/20 08:00 Rx Insulin Glargine [Lantus VIAL] 10 units SUB-Q QHS units 07/17/20 08/18/20 07/21/20 20:00 Rx Metoclopramide [Reglan TAB] 5 mg PO ACHS PRN #120 tablet 07/17/20 08/18/20 07/22/20 08:00 Rx Pantoprazole [Protonix TAB] 40 mg PO DAILY #60 tablet 07/17/20 08/18/20 07/22/20 08:00 Rx amLODIPine 10 mg PO DAILY #30 tablet 07/17/20 08/18/20 07/22/20 08:00 Rx cloNIDine [Catapres] 0.1 mg PO BID #60 tablet 07/17/20 08/18/20 07/22/20 08:00 Rx hydrALAZINE [Apresoline TAB] 100 mg PO Q8HR #90 tab 07/17/20 08/18/20 07/22/20 08:00 Rx Sertraline [Zoloft] 50 mg PO DAILY #30 tablet 08/10/20 08/18/20 Unknown Rx carvediloL [Coreg] 25 mg PO BID 08/18/20 08/18/20 Unknown History Active Meds: Active Medications Acetaminophen (Tylenol) 650 mg PO Q4H PRN PRN Reason: Pain MILD(1-3)/Fever >100.5/LANZA Albuterol (Proventil) 0.63 mg IH Q4HRT PRN PRN Reason: Shortness Of Breath Amlodipine Besylate (Amlodipine) 10 mg PO DAILY [facility] Last Admin: 08/18/20 10:11 Dose: Not Given Documented by: Carvedilol (Coreg) 25 mg PO BID@0800,1700 [facility] Last Admin: 08/18/20 10:11 Dose: Not Given Documented by: Clonidine HCl (Catapres) 0.1 mg PO BID [facility] Last Admin: 08/18/20 10:11 Dose: Not Given Documented by: Hydralazine HCl (Apresoline) 100 mg PO Q8HR [facility] Last Admin: 08/18/20 06:36 Dose: 100 mg Documented by: Hydromorphone HCl (Dilaudid) 0.5 mg IV Q4H PRN PRN Reason: Pain , Severe (7-10) Last Admin: 08/18/20 05:15 Dose: 0.5 mg Documented by: Sodium Chloride (Nacl 0.9%) 100 mls @ 999 mls/hr IV BRENDAN PRN PRN Reason: Hypotension Insulin Human Lispro (Humalog) 0 unit SUB-Q Q6H [facility]; Protocol Last Admin: 08/18/20 12:29 Dose: Not Given Documented by: Labetalol HCl (Labetalol) 10 mg IV Q6H PRN PRN Reason: Blood Pressure Last Admin: 08/18/20 09:55 Dose: 10 mg Documented by: Metoclopramide HCl (Reglan) 5 mg IV Q6H KESHIA Ondansetron HCl (Zofran) 4 mg IV Q3H PRN PRN Reason: Nausea And Vomiting Last Admin: 08/18/20 09:57 Dose: 4 mg Documented by: Pantoprazole Sodium (Protonix) 40 mg PO DAILY [facility] Last Admin: 08/18/20 10:11 Dose: Not Given Documented by: Sertraline HCl (Zoloft) 50 mg PO DAILY [facility] Last Admin: 08/18/20 10:13 Dose: Not Given Documented by: Sodium Chloride (Sodium Chloride Flush Syringe 10 Ml) 10 ml IV BID [facility] Last Admin: 08/18/20 10:01 Dose: 10 ml Documented by: Sodium Chloride (Sodium Chloride Flush Syringe 10 Ml) 10 ml IV PRN PRN PRN Reason: LINE FLUSH Review of Systems All systems: negative Constitutional: anorexia, weakness, poor appetite Gastrointestinal: abdominal pain, nausea, vomiting Exam - Vital Signs Vital signs: Vital Signs Temp Pulse Resp BP Pulse Ox 98.6 F 101 H 18 202/118 100 08/17/20 19:55 08/17/20 19:55 08/17/20 19:55 08/17/20 19:55 08/17/20 19:55 - General Appearance General appearance: well-developed, well-nourished, appears stated age EENT: ATNC, PERRL, mucous membranes moist Neck: Present: neck supple Respiratory: Clear to Ascultation Heart: regular, S1S2 Gastrointestinal: Present: normoactive bowel sounds Integumentary: no rash, other (no edema ) Neurologic: no focal deficit, alert and oriented x3, strength 5/5, CN 3-12 intact Psychiatric: mood/affect appropriate, cooperative Results - Lab Results 08/18/20 16:23 08/18/20 07:25 Most recent lab results Calcium 8.3 mg/dL (8.4-10.2) L 08/18/20 07:25 Assessment and Plan - Patient Problems (1) ESRD (end stage renal disease) Current Visit: No Status: Acute Plan to address problem: HD arranged for TTS schedule, target UF 2-3 L as tolerated (2) Coffee ground emesis Current Visit: Yes Status: Acute Plan to address problem: follow GI recommendations (3) Hypertensive chronic kidney disease with stage 5 chronic kidney disease or end stage renal disease Current Visit: No Status: Chronic Plan to address problem: resume home BP regimen. further volume and BP control with HD (4) Type 2 diabetes mellitus with diabetic chronic kidney disease Current Visit: No Status: Chronic Qualifiers: Chronic kidney disease stage: on chronic dialysis Plan to address problem: Diabetes management as per primary attending (5) Anemia in chronic illness Current Visit: Yes Status: Acute Plan to address problem: start EPO with HD once BP is better controlled. Pt scheduled for 2PRBC transfusion
[2020-08-18] MEDS: METOCLOPRAMIDE 10 MG/2 ML INJ IV SCH ×2 (13:29→18:49)
[2020-08-18 16:31] LABS: Hematocrit 24.5 % (35.5-45.6); Hemoglobin 7.8 gm/dl (11.8-15.2)
--- NOTE | 2020-08-18 18:56 | Gastroenterology Consultation ---
History of Present Illness - Reason for Consult Consult date: 08/18/20 nausea/vomiting Requesting physician: BRENDA MORFIN - History of Present Illness This is a 34 yo male well-known t our service from prior admissions for similar presentations with nausea/vomiting and coffee ground emesis. He has h/o erosive esophagitis with multiple EGDs in the past, last one on 02/07/2020 with erosive esophagitis but no active bleeding. Patient missed HD this week due to schedule change per patient. Louise ill with nausea and vomiting. Reports having blood streaks. States he has been taking his medications. No melena or blood in the stools. He is not vomiting this morning. Wants to try clears. Medication list reviewed. Past History Past Medical History: diabetes, hypertension, renal failure Past Surgical History: Other (AVF placement ) Social history: denies: smoking, alcohol abuse, prescription drug abuse, IV drug use Medications and Allergies Allergies Allergy/AdvReac Type Severity Reaction Status Date / Time No Known Allergies Allergy Verified 07/20/20 15:05 Home Medications Medication Instructions Recorded Confirmed Last Taken Type Albuterol Sulfate [Albuterol 0.63% 0.63 mg IH Q4HR PRN #50 04/17/20 08/18/20 05/30/20 Rx NEBS] Lispro Insulin [HumaLOG] 5 unit SQ AC #1 vial 04/17/20 08/18/20 06/15/20 Rx Apixaban [Eliquis] 1 tab PO BID #60 tablet 07/17/20 08/18/20 07/22/20 08:00 Rx Insulin Glargine [Lantus VIAL] 10 units SUB-Q QHS units 07/17/20 08/18/20 07/21/20 20:00 Rx Metoclopramide [Reglan TAB] 5 mg PO ACHS PRN #120 tablet 07/17/20 08/18/20 07/22/20 08:00 Rx Pantoprazole [Protonix TAB] 40 mg PO DAILY #60 tablet 07/17/20 08/18/20 07/22/20 08:00 Rx amLODIPine 10 mg PO DAILY #30 tablet 07/17/20 08/18/20 07/22/20 08:00 Rx cloNIDine [Catapres] 0.1 mg PO BID #60 tablet 07/17/20 08/18/20 07/22/20 08:00 Rx hydrALAZINE [Apresoline TAB] 100 mg PO Q8HR #90 tab 07/17/20 08/18/20 07/22/20 08:00 Rx Sertraline [Zoloft] 50 mg PO DAILY #30 tablet 08/10/20 08/18/20 Unknown Rx carvediloL [Coreg] 25 mg PO BID 08/18/20 08/18/20 Unknown History Active Meds: Active Medications Acetaminophen (Tylenol) 650 mg PO Q4H PRN PRN Reason: Pain MILD(1-3)/Fever >100.5/LANZA Albuterol (Proventil) 0.63 mg IH Q4HRT PRN PRN Reason: Shortness Of Breath Amlodipine Besylate (Amlodipine) 10 mg PO DAILY [facility] Last Admin: 08/18/20 10:11 Dose: Not Given Documented by: Carvedilol (Coreg) 25 mg PO BID@0800,1700 [facility] Last Admin: 08/18/20 18:15 Dose: Not Given Documented by: Clonidine HCl (Catapres) 0.1 mg PO BID [facility] Last Admin: 08/18/20 10:11 Dose: Not Given Documented by: Hydralazine HCl (Apresoline) 100 mg PO Q8HR [facility] Last Admin: 08/18/20 15:27 Dose: Not Given Documented by: Hydromorphone HCl (Dilaudid) 0.5 mg IV Q4H PRN PRN Reason: Pain , Severe (7-10) Last Admin: 08/18/20 05:15 Dose: 0.5 mg Documented by: Sodium Chloride (Nacl 0.9%) 100 mls @ 999 mls/hr IV BRENDAN PRN PRN Reason: Hypotension Insulin Human Lispro (Humalog) 0 unit SUB-Q Q6H [facility]; Protocol Last Admin: 08/18/20 18:15 Dose: Not Given Documented by: Labetalol HCl (Labetalol) 10 mg IV Q6H PRN PRN Reason: Blood Pressure Last Admin: 08/18/20 18:46 Dose: 10 mg Documented by: Metoclopramide HCl (Reglan) 5 mg IV Q6H [facility] Last Admin: 08/18/20 18:49 Dose: 5 mg Documented by: Ondansetron HCl (Zofran) 4 mg IV Q3H PRN PRN Reason: Nausea And Vomiting Last Admin: 08/18/20 09:57 Dose: 4 mg Documented by: Pantoprazole Sodium (Protonix) 40 mg PO DAILY [facility] Last Admin: 08/18/20 10:11 Dose: Not Given Documented by: Sertraline HCl (Zoloft) 50 mg PO DAILY [facility] Last Admin: 08/18/20 10:13 Dose: Not Given Documented by: Sodium Chloride (Sodium Chloride Flush Syringe 10 Ml) 10 ml IV BID [facility] Last Admin: 08/18/20 10:01 Dose: 10 ml Documented by: Sodium Chloride (Sodium Chloride Flush Syringe 10 Ml) 10 ml IV PRN PRN PRN Reason: LINE FLUSH Review of Systems - Review of Systems Constitutional: weakness, no weight loss, no weight gain Cardiovascular: no chest pain Gastrointestinal: abdominal pain, nausea, vomiting, no melena, no hematochezia Rectal: no bleeding Neurological: no head injury Psychiatric: anxiety Exam - Constitutional Vital Signs: Temp Pulse Resp BP Pulse Ox 98.1 F 95 H 16 181/97 94 08/18/20 18:32 08/18/20 18:46 08/18/20 18:32 08/18/20 18:46 08/18/20 14:00 General appearance: no acute distress - EENT ENT: hearing intact - Neck Neck: supple - Respiratory Respiratory effort: normal - Cardiovascular Rhythm: regular Heart Sounds: Present: S1 & S2 - Gastrointestinal General gastrointestinal: Present: soft, non-tender, non-distended - Neurologic Neurological: alert and oriented x3 - Labs CBC & Chem 7: 08/18/20 16:23 08/18/20 07:25 Lab Results: Laboratory Results - last 24 hr 08/17/20 08/17/20 08/18/20 21:10 21:10 06:35 WBC 11.2 H RBC 3.66 Hgb 9.0 L Hct 28.6 L MCV 78 L MCH 25 L MCHC 31 L RDW 20.1 H Plt Count 461 H Lymph % (Auto) 9.3 L Elk % (Auto) 6.5 Eos % (Auto) 0.4 Baso % (Auto) 1.2 Lymph # (Auto) 1.0 L Elk # (Auto) 0.7 Eos # (Auto) 0.0 Baso # (Auto) 0.1 Seg Neutrophils % 82.6 H Seg Neutrophils # 9.3 H Sodium 139 Potassium 4.7 Chloride 90.8 L Carbon Dioxide 25 Anion Gap 28 BUN 53 H Creatinine 13.5 H Estimated GFR 5 BUN/Creatinine Ratio 4 Glucose 145 H POC Glucose 132 H Calcium 8.8 Total Bilirubin 0.50 AST 15 ALT 8 Alkaline Phosphatase 136 H Total Protein 8.0 Albumin 3.4 L Albumin/Globulin Ratio 0.7 Nasal Screen MRSA (PCR) 08/18/20 08/18/20 08/18/20 07:25 07:25 12:12 WBC 11.0 RBC 3.14 L Hgb 7.6 L Hct 24.7 L MCV 79 L MCH 24 L MCHC 31 L RDW 20.3 H Plt Count 462 H Lymph % (Auto) 12.3 L Elk % (Auto) 7.4 H Eos % (Auto) 1.1 Baso % (Auto) 1.7 Lymph # (Auto) 1.4 Elk # (Auto) 0.8 Eos # (Auto) 0.1 Baso # (Auto) 0.2 H Seg Neutrophils % 77.5 H Seg Neutrophils # 8.6 H Sodium 142 Potassium 4.9 Chloride 94.0 L Carbon Dioxide 27 Anion Gap 26 BUN 62 H Creatinine 15.6 H Estimated GFR 4 BUN/Creatinine Ratio 4 Glucose 134 H POC Glucose 115 H Calcium 8.3 L Total Bilirubin 0.40 AST 11 ALT 8 Alkaline Phosphatase 135 H Total Protein 6.7 Albumin 3.2 L Albumin/Globulin Ratio 0.9 Nasal Screen MRSA (PCR) 08/18/20 08/18/20 16:23 Unknown WBC RBC Hgb 7.8 L Hct 24.5 L MCV MCH MCHC RDW Plt Count Lymph % (Auto) Elk % (Auto) Eos % (Auto) Baso % (Auto) Lymph # (Auto) Elk # (Auto) Eos # (Auto) Baso # (Auto) Seg Neutrophils % Seg Neutrophils # Sodium Potassium Chloride Carbon Dioxide Anion Gap BUN Creatinine Estimated GFR BUN/Creatinine Ratio Glucose POC Glucose Calcium Total Bilirubin AST ALT Alkaline Phosphatase Total Protein Albumin Albumin/Globulin Ratio Nasal Screen MRSA (PCR) Positive Assessment and Plan # Gastroparesis # Esophagitis # Poor compliance - missing HD this week and developed worsening nausea/vomiting. - H/H stable. - no signs of active GI bleeding. Likely 2/2 known erosive esophagitis. Rec - cont with PPI and antiemetics prn. - monitor H/H. - advance diet as tolerated. - no plans for endoscopy. - will sign off.
[2020-08-18] MEDS ORDERED: INSULIN GLARGINE 100 UNITS/ML SUB-Q SCH (22:00)
[2020-08-19] MEDS: INSULIN LISPRO 100 UNIT/ML VIAL 3 mL SUB-Q SCH ×3 (00:32→12:39)
[2020-08-19] MEDS: METOCLOPRAMIDE 10 MG/2 ML INJ IV SCH ×2 (01:33→10:00)
[2020-08-19] MEDS: hydrALAZINE 100 MG TAB PO SCH (06:58)
[2020-08-19] MEDS ORDERED: ALUM-MAG HYDROXIDE-SIMETHICONE 200-200-20MG/5ML ORAL LIQD 30 ML PO PRN (07:23)
[2020-08-19 09:16] LABS: Basophils # (Auto) 0.2 K/mm3 (0.0-0.1); Basophils % (Auto) 2.6 % (0.0-1.8); Eosinophils # (Auto) 0.4 K/mm3 (0.0-0.4); Eosinophils % (Auto) 4.5 % (0.0-4.3); Hematocrit 25.3 % (35.5-45.6); Lymphocytes # (Auto) 1.8 K/mm3 (1.2-5.4); Lymphocytes % (Auto) 21.8 % (13.4-35.0); Mean Corpuscular HGB Conc 32 % (32-34); Mean Corpuscular Volume 77 fl (84-94); Monocytes # (Auto) 0.8 K/mm3 (0.0-0.8); Monocytes % (Auto) 10.2 % (0.0-7.3); Platelet Count 413 K/mm3 (140-440); Red Blood Count 3.27 M/mm3 (3.65-5.03); Red Cell Distribution Width 19.8 % (13.2-15.2)
[2020-08-19 09:26] LABS: Calcium 8.6 mg/dL (8.4-10.2)
[2020-08-19] MEDS: cloNIDine 0.1 MG TAB PO SCH (09:53)
[2020-08-19] MEDS: PANTOPRAZOLE 40 MG TAB PO SCH (10:01)
[2020-08-19] MEDS: carvediloL 25 MG TAB PO SCH (10:01)
[2020-08-19] MEDS: SERTRALINE 50 MG TAB PO SCH (10:02)
[2020-08-19] MEDS: amLODIPine 10 MG TAB PO SCH (10:02)
[2020-08-19 10:13] VITALS: BP 161/86
--- NOTE | 2020-08-19 10:27 | Discharge Summary ---
Providers - Providers Date of Admission: 08/17/20 23:06 Date of discharge: 08/19/20 Attending physician: DINO CARDONA 08/17/20 22:34 Consult to Physician [CONS] Routine Comment: Dr. Harp spoke with Dr. Encinas @ [phone] Consulting Provider: KHAI ENCINAS Physician Instructions: Reason For Exam: esrd. hd 08/17/20 22:35 Consult to Physician [CONS] Routine Comment: Consulting Provider: CARLYN GONZALES Physician Instructions: Reason For Exam: n/v. vomiting blood Primary care physician: UPHOLSTERY CUTTER Hospitalization Condition: Critical Hospital course: 34-year-old male with a medical history of diabetes, hypertension, ESRD [Saturday] who presents to the emergency room with a chief complaint of vomiting which is blood-streaked and abdominal pain. The patient states he developed abdominal pain and blood-streaked vomiting this morning. Patient states he has vomitus with streaks of blood. Patient states his last bowel movement occurred approximately 30 minutes prior to presentation. Patient denies melena or bright red blood per rectum. Last time he received dialysis was one week ago. Patient comes in with the same complaints all the time. 08/18. Patient seen and examined at bedside this AM. Complains of abdominal pain and nausea. Patient is n.p.o. pending GI evaluation. Blood pressure is elevated and has been started on IV medication. He misses dialysis 2 days ago. Nephrology has been consulted for continuation of hemodialysis. Plan for today will be control symptoms, GI follow-up and blood pressure control. 08/19. He feels much better. GI evaluated and recommends PPI. No need for EGD. He is tolerating normal diet. BP improved. Stable for Dc. Disposition: DC-01 TO HOME OR SELFCARE - Discharge Diagnoses (1) Coffee ground emesis Status: Acute (2) Gastroparesis Status: Acute (3) Accelerated hypertension Status: Acute Core Measure Documentation - Palliative Care Palliative Care/ Comfort Measures: Not Applicable - Core Measures Any of the following diagnoses?: none Exam - Constitutional Vitals: Temp Pulse Resp BP Pulse Ox 98.3 F 86 16 161/86 97 08/19/20 09:55 08/19/20 09:55 08/19/20 09:55 08/19/20 10:02 08/19/20 09:55 General appearance: Present: no acute distress, well-nourished - EENT Eyes: Present: PERRL ENT: hearing intact, clear oral mucosa - Neck Neck: Present: supple, normal ROM - Respiratory Respiratory effort: normal Respiratory: bilateral: CTA - Cardiovascular Heart Sounds: Present: S1 & S2. Absent: rub, click - Extremities Extremities: pulses symmetrical, No edema Peripheral Pulses: within normal limits - Abdominal General gastrointestinal: Present: soft, non-tender, non-distended, normal bowel sounds Male genitourinary: Present: normal - Integumentary Integumentary: Present: clear, warm, dry - Musculoskeletal Musculoskeletal: gait normal, strength equal bilaterally - Psychiatric Psychiatric: appropriate mood/affect, intact judgment & insight - Neurologic Neurologic: CNII-XII intact, moves all extremities Plan Diet: diabetic, renal Additional Instructions: Continue medications. Ensure you do not miss hemodialysis sessions Follow up with: PRIMARY CARE, [Primary Care Provider] - 7 Days
== END 2020-08-19 14:30 | disposition home or self-care (01) ==
LOC: ED 19:53 → 3A 23:06
PROVIDERS: ADMIT Internal Medicine; ATTEND Internal Medicine
DX: K92.2 Gastrointestinal hemorrhage, unspecified (principal); K31.84 Gastroparesis; I16.9 Hypertensive crisis, unspecified; I13.2 Hypertensive heart and chronic kidney disease with heart failure and with stage 5 chronic kidney disease, or end stage renal disease; I50.9 Heart failure, unspecified; N18.6 End stage renal disease; D63.1 Anemia in chronic kidney disease; E10.9 Type 1 diabetes mellitus without complications; J44.9 Chronic obstructive pulmonary disease, unspecified; K21.9 Gastro-esophageal reflux disease without esophagitis; Z90.49 Acquired absence of other specified parts of digestive tract; Z98.890 Other specified postprocedural states; Z79.4 Long term (current) use of insulin; Z99.2 Dependence on renal dialysis
CPT/HCPCS: 36415; 71045; 80048; 80053; 82962; 85014; 85018; 85025; 87641; 96374; 96375; 96376; 99291; G0257; G0378; J1170; J2405; J2765; J7040

== ENCOUNTER 2020-09-20 23:35 | Observation (INO) | payer MEDICARE ==
[2020-09-21 03:56] LABS: Basophils # (Auto) 0.2 K/mm3 (0.0-0.1); Eosinophils % (Auto) 0.2 % (0.0-4.3); Monocytes # (Auto) 0.9 K/mm3 (0.0-0.8); Monocytes % (Auto) 4.6 % (0.0-7.3)
[2020-09-21 04:17] LABS: Calcium 10.2 mg/dL (8.4-10.2)
[2020-09-21] MEDS ORDERED: hydrALAZINE 20 MG/1 ML INJ IV ONE (04:20)
[2020-09-21] MEDS ORDERED: ONDANSETRON 4 MG/2 ML INJ IV ONE (04:21)
[2020-09-21] MEDS ORDERED: MORPHINE 2 MG/1 ML INJ IV ONE (04:21)
--- NOTE | 2020-09-21 04:31 | Emergency Department Report ---
<YOSELYN ARGUELLESEBONI VinnieJoshua - Last Filed: 09/21/20 05:48> ED General Adult HPI - General Chief complaint: High BP Stated complaint: HYPERTENSION, MISSED DIALYSIS Time Seen by Provider: 09/21/20 04:23 Source: patient Mode of arrival: Ambulatory Limitations: No Limitations - History of Present Illness Initial comments: 34-year-old male with history of ESRD, CHF, COPD, diabetes, GERD, gastroparesis, ulcerative esophagitis, presents to ED with chief complaint of "missed dialysis." Difficult to obtain a history from patient as he also refuses to speak. Patient does not know when he was last dialyzed. 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 He will not tell me why he missed dialysis. Patient currently vomiting coffee-ground emesis, which is common for him. When asked when this started, patient states it never stopped, vomiting has been ongoing. Review of chart shows the patient was discharged 5 days ago with diagnoses of se psis, MRSA bacteremia secondary to PermCath infection, hypertensive urgency, dialysis fistula malfunction. Infectious disease note states that patient should be receiving vancomycin 1 g IV after each hemodialysis for 4 weeks until 10/08/2020. -: unknown Location: abdomen Consistency: constant Improves with: none Worsens with: none Associated Symptoms: nausea/vomiting. denies: shortness of breath - Related Data Home Medications Medication Instructions Recorded Confirmed Last Taken Albuterol Sulfate [Albuterol 0.63% 0.63 mg IH BID PRN 09/05/20 09/08/20 09/05/20 17:00 NEBS] Apixaban [Eliquis] 5 mg PO BID 09/05/20 09/08/20 09/05/20 17:00 Labetalol 300mg TAB 300 mg PO BID 09/05/20 09/08/20 09/05/20 17:00 Levemir Flextouch 10 units SQ PC 09/05/20 09/08/20 09/05/20 17:00 Metoclopramide [Reglan TAB] 10 mg PO TID PRN 09/05/20 09/08/20 09/05/20 17:00 Pantoprazole [Protonix TAB] 40 mg PO BID 09/05/20 09/08/20 09/05/20 17:00 Previous Rx's Medication Instructions Recorded Last Taken Type Lispro Insulin [HumaLOG] 5 unit SQ AC #1 vial 04/17/20 09/05/20 17:00 Rx cloNIDine [Catapres] 0.2 mg PO TID #180 tablet 09/15/20 Unknown Rx lisinopriL [Zestril TAB] 20 mg PO QHS #30 tablet 09/15/20 Unknown Rx Allergies Allergy/AdvReac Type Severity Reaction Status Date / Time No Known Allergies Allergy Verified 07/20/20 15:05 ED Review of Systems Comment: All other systems reviewed and negative Respiratory: denies: shortness of breath Cardiovascular: denies: chest pain Gastrointestinal: abdominal pain, vomiting. denies: diarrhea ED Past Medical Hx - Past Medical History Previous Medical History?: Yes Hx Hypertension: Yes Hx Heart Attack/AMI: Yes (-NON STEMI ELEVATED ME) Hx Congestive Heart Failure: Yes Hx Diabetes: Yes (TYPE 11) Hx Deep Vein Thrombosis: No Hx Pulmonary Embolism: No Hx GERD: Yes Hx Liver Disease: No Hx Renal Disease: No Hx Sickle Cell Disease: No Hx Arthritis: Yes (BINTA. HANDS) Hx Headaches / Migraines: No Hx Seizures: No Hx Kidney Stones: No Hx Asthma: Yes Hx COPD: Yes Hx Tuberculosis: No Hx HIV: No Additional medical history: Ulcerative esophagitis, Gastroparesis HD MWF - Surgical History Past Surgical History?: Yes Hx Coronary Stent: No Hx Pacemaker: No Hx Internal Defibrillator: No Hx Cholecystectomy: Yes Hx Appendectomy: Yes Additional Surgical History: right great toe removed, Right chest PERMA-CATH - Social History Smoking Status: Never Smoker Substance Use Type: None - Medications Home Medications: Home Medications Medication Instructions Recorded Confirmed Last Taken Type Lispro Insulin [HumaLOG] 5 unit SQ AC #1 vial 04/17/20 09/08/20 09/05/20 17:00 Rx Albuterol Sulfate [Albuterol 0.63% 0.63 mg IH BID PRN 09/05/20 09/08/20 09/05/20 17:00 History NEBS] Apixaban [Eliquis] 5 mg PO BID 09/05/20 09/08/20 09/05/20 17:00 History Labetalol 300mg TAB 300 mg PO BID 09/05/20 09/08/20 09/05/20 17:00 History Levemir Flextouch 10 units SQ PC 09/05/20 09/08/20 09/05/20 17:00 History Metoclopramide [Reglan TAB] 10 mg PO TID PRN 09/05/20 09/08/20 09/05/20 17:00 History Pantoprazole [Protonix TAB] 40 mg PO BID 09/05/20 09/08/20 09/05/20 17:00 History cloNIDine [Catapres] 0.2 mg PO TID #180 tablet 09/15/20 Unknown Rx lisinopriL [Zestril TAB] 20 mg PO QHS #30 tablet 09/15/20 Unknown Rx ED Physical Exam - General Limitations: No Limitations General appearance: alert - Head Head exam: Present: atraumatic, normocephalic - Eye Eye exam: Present: normal appearance - ENT ENT exam: Present: mucous membranes moist - Neck Neck exam: Present: normal inspection - Respiratory Respiratory exam: Present: normal lung sounds bilaterally. Absent: respiratory distress - Cardiovascular Cardiovascular Exam: Present: normal rhythm, tachycardia - GI/Abdominal GI/Abdominal exam: Present: soft, tenderness (Mild epigastric). Absent: distend ed - Extremities Exam Extremities exam: Present: normal inspection - Neurological Exam Neurological exam: Present: alert, oriented X3 - Psychiatric Psychiatric exam: Present: flat affect - Skin Skin exam: Present: diaphoretic ED Medical Decision Making - Lab Data Result diagrams: 09/21/20 03:25 09/21/20 03:25 - EKG Data -: EKG Interpreted by Ct EKG shows normal: sinus rhythm Rate: tachycardia (rate 118) - EKG Data Interpretation: no acute changes, other (Prolonged QT) - Radiology Data Radiology results: report reviewed, image reviewed - Medical Decision Making 35-year-old male presents to ED today with complaint of missed dialysis. Potassium is only slightly elevated at 5.2. Chest x-ray does not show any evidence of pulmonary edema. Patient extremely hypertensive here in ED. He has been given hydralazine and labetalol which has improved his blood pressure. Patient was also given Zofran and Reglan for his vomiting. Previous notes have shown that when patient misses dialysis and become extremely hypertensive, this can be a trigger for his gastroparesis. Patient is unclear when he was last dialyzed. According to notes he is supposed to be receiving vancomycin with every dialysis for treatment of his bacteremia. Today, patient does have elevated WBCs of 19 and found to be tachycardic. Lactic acid sent off, blood cultures ordered. Patient given a dose of vancomycin and cefepime here in ED. Patient will be admitted for his intractable nausea and vomiting. He does not require any emergent dialysis, however will likely receive it during admission. Will avoid any large boluses of IV fluids secondary to patient's CHF and end- stage renal disease. ED Disposition Clinical Impression: Abdominal pain, Intractable nausea and vomiting, Ulcerative esophagitis, Gastroparesis, ESRD on hemodialysis, Hypertensive urgency, Malignant hypertension, Insulin dependent diabetes mellitus, Missed dialysis Disposition: OP ADMIT IP TO THIS HOSP Condition: Stable Instructions: Hypertension (ED), Diabetes Mellitus Type 2 in Adults (ED) <TEMO REINOSO - Last Filed: 09/21/20 07:18> ED Review of Systems ROS: Stated complaint: HYPERTENSION, MISSED DIALYSIS Other details as noted in HPI ED Course Vital Signs 09/21/20 09/21/20 09/21/20 02:09 03:53 04:00 Temperature 98.2 F Pulse Rate 114 H 115 H 117 H Respiratory 16 15 12 Rate Blood Pressure 209/128 220/186 O2 Sat by Pulse 100 100 100 Oximetry 09/21/20 09/21/20 09/21/20 04:15 04:30 04:45 Temperature Pulse Rate 113 H 115 H 113 H Respiratory 20 24 25 H Rate Blood Pressure 220/186 217/132 217/132 O2 Sat by Pulse 100 Oximetry 09/21/20 09/21/20 09/21/20 04:57 05:00 05:11 Temperature Pulse Rate 114 H 114 H Respiratory 23 20 Rate Blood Pressure 217/132 215/127 O2 Sat by Pulse 100 Oximetry 09/21/20 09/21/20 09/21/20 05:15 05:30 05:45 Temperature Pulse Rate 116 H 115 H 109 H Respiratory 21 20 21 Rate Blood Pressure 215/127 163/97 163/97 O2 Sat by Pulse Oximetry 09/21/20 09/21/20 06:00 06:30 Temperature Pulse Rate 111 H Respiratory 20 21 Rate Blood Pressure 196/116 163/106 O2 Sat by Pulse Oximetry ED Medical Decision Making - Lab Data Result diagrams: 09/21/20 03:25 09/21/20 03:25 - Radiology Data Radiology results: report reviewed CT abdomen pelvis wo con INDICATION / CLINICAL INFORMATION: Patient complains of abdominal pain with vomiting.. TECHNIQUE: Axial CT imaging of abdomen and pelvis was obtained without contrast. Coronal and sagittal reformatted imaging obtained and reviewed. All CT scans at this location are performed using CT dose reduction for ALARA by means of automated exposure control. COMPARISON: Prior CT abdomen/pelvis 06/01/2020 FINDINGS: CT abdomen without contrast shows grossly normal appearance of the liver, spleen, pancreas, kidneys, and adrenal glands. Gallbladder is present without obvious abnormality. CT pelvis without contrast does not demonstrate any mass, free fluid, or focal inflammatory change. The appendix appears to have been removed. There are numerous loops of fluid- filled small bowel without dilatation. The appearance is grossly unchanged from prior exam, but could indicate the presence of enteritis.. GI tract is otherwise grossly unremarkable. Visualized lung bases show no acute pulmonary or pleural disease. As noted on prior study, there is marked wall thickening of the distal esophagus. Very small pericardial effusion is again noted. No acute skeletal abnormality. IMPRESSION: 1. No definite acute finding within the abdomen or pelvis. 2. Prominent esophageal wall thickening in the visualized portion of the distal esophagus. This was present on the prior study as well. 3. Nondilated fluid-filled small bowel. No evidence of mechanical obstruction. This could indicate the presence of mild enteritis, if clinical symptoms/presentation are appropriate. - Medical Decision Making This gentleman will be admitted for intractable nausea vomiting due to ga stroparesis. Patient also has recurrent hematemesis due to ulcerative esophagitis. CT abdomen pelvis reflects persistent thickened esophageal wall. Fluid-filled small bowel nonspecific finding. He does not have any abdominal tenderness. He does have persistent abdominal pain. Critical care attestation.: If time is entered above; I have spent that time in minutes in the direct care of this critically ill patient, excluding procedure time. ED Disposition Is pt being admited?: Yes Does the pt Need Aspirin: No
[2020-09-21 04:42] LABS: Basophils % (Auto) 1.1 % (0.0-1.8); Hematocrit 34.7 % (35.5-45.6); Hemoglobin 11.2 gm/dl (11.8-15.2); Lymphocytes # (Auto) 1.2 K/mm3 (1.2-5.4); Lymphocytes % (Auto) 6.3 % (13.4-35.0); Mean Corpuscular HGB Conc 32 % (32-34); Mean Corpuscular Volume 80 fl (84-94); Platelet Count 731 K/mm3 (140-440); Red Blood Count 4.33 M/mm3 (3.65-5.03)
[2020-09-21 04:50] LABS: Red Cell Distribution Width 22.6 % (13.2-15.2)
[2020-09-21] MEDS ORDERED: METOCLOPRAMIDE 10 MG/2 ML INJ IV ONE (05:29)
--- NOTE | 2020-09-21 05:42 | XRay Report ---
ABDOMEN 2 VIEW WITH PA CHEST INDICATION / CLINICAL INFORMATION: vomiting, abd pain. COMPARISON: 09/07/2020 FINDINGS: Bowel gas pattern is grossly normal. No abnormally dilated loops of bowel. No free air. Accompanying PA view chest shows normal positioning of the dialysis catheter. Cardiac silhouette size remains slightly enlarged but unchanged. Mild pulmonary venous hypertension is present without overt interstitial pulmonary edema. Both lungs are grossly clear. IMPRESSION: 1. No acute finding within the abdomen. 2. Mild cardiomegaly with pulmonary venous hypertension. Signer Name: Clarice Meraz MD Signed: 09/21/2020 5:37 AM Workstation Name: [id number]
[2020-09-21] MEDS ORDERED: VANCOMYCIN/NS 1 GM/250 ML 1 GM/250 ML BAG IV ONE (05:47)
[2020-09-21] MEDS ORDERED: CEFEPIME/NS 2 GM/100 ML 2 GM/100 ML BAG IV ONE (05:47)
[2020-09-21] MEDS ORDERED: VANCOMYCIN 1,250 MG in SODIUM CHLORIDE 0.9% 250ML 250 ML IV ONE (06:00)
[2020-09-21] MEDS ORDERED: MORPHINE 4 MG/1 ML INJ IV ONE (06:15)
--- NOTE | 2020-09-21 06:58 | Cat Scan Report ---
CT abdomen pelvis wo con INDICATION / CLINICAL INFORMATION: Patient complains of abdominal pain with vomiting.. TECHNIQUE: Axial CT imaging of abdomen and pelvis was obtained without contrast. Coronal and sagittal reformatte d imaging obtained and reviewed. All CT scans at this location are performed using CT dose reduction for ALARA by means of automated exposure control. COMPARISON: Prior CT abdomen/pelvis 06/01/2020 FINDINGS: CT abdomen without contrast shows grossly normal appearance of the liver, spleen, pancreas, kidneys, and adrenal glands. Gallbladder is present without obvious abnormality. CT pelvis without contrast does not demonstrate any mass, free fluid, or focal inflammatory change. T he appendix appears to have been removed. There are numerous loops of fluid-filled small bowel withou t dilatation. The appearance is grossly unchanged from prior exam, but could indicate the presence of enteritis.. GI tract is otherwise grossly unremarkable. Visualized lung bases show no acute pulmonary or pleural disease. As noted on prior study, there is m arked wall thickening of the distal esophagus. Very small pericardial effusion is again noted. No acu te skeletal abnormality. IMPRESSION: 1. No definite acute finding within the abdomen or pelvis. 2. Prominent esophageal wall thickening in the visualized portion of the distal esophagus. This was p resent on the prior study as well. 3. Nondilated fluid-filled small bowel. No evidence of mechanical obstruction. This could indicate th e presence of mild enteritis, if clinical symptoms/presentation are appropriate. Signer Name: Clarice Meraz MD Signed: 09/21/2020 6:54 AM Workstation Name: [id number]
[2020-09-21] MEDS ORDERED: ONDANSETRON 4 MG/2 ML INJ IV PRN (08:00)
[2020-09-21] MEDS ORDERED: ALBUTEROL 2.5 MG/3 ML NEBU IH PRN (08:00)
[2020-09-21] MEDS ORDERED: ACETAMINOPHEN 325 MG TAB PO PRN (08:00)
[2020-09-21] MEDS ORDERED: oxyCODONE /ACETAMINOPHEN 5-325MG TAB PO PRN (08:00)
[2020-09-21] MEDS ORDERED: DEXTROSE 50% IN WATER (25GM) 50 ML SYRINGE IV PRN (08:00)
[2020-09-21] MEDS ORDERED: VANCOMYCIN PHARMACY TO DOSE IV SCH (08:00)
[2020-09-21] MEDS ORDERED: NALOXONE 0.4 MG/1 ML INJ IV PRN (08:00)
--- NOTE | 2020-09-21 08:42 | History and Physical Report ---
<SADIA SANCHEZ - Last Filed: 09/21/20 10:01> History of Present Illness Date of admission: 09/21/20 07:22 History of present illness: This is a 34-year-old male with CHF, ESRD on HD (MWF), COPD, DM, GERD, gastroparesis, ulcerative esophagitis who presented to the emergency department on 09/20 for complaints of "missed dialysis, coughing up blood and high blood pressure". Patient is a poor historian and is uncooperative with the interview and most of the history is obtained from prior chart review. 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 Patient states that he has been coughing up blood for about 6 days however upon review prior records this is a common phenomenon for him. Patient denies any chills, chest pain, night sweats, fevers, shortness of breath, nausea or vomiting or diarrhea, any sick contacts, recent known exposure to COVID-19 or tuberculosis. Of note patient was discharged on 09/15 after diagnosis of sepsis secondary to MRSA bacteremia secondary to permacath infection, hypertensive emergency and dialysis fistula malfunction. Patient was supposed to receive 1 g of vancomycin IV after each HD session for 4 weeks until 10/08. Of note patient had ESBL Klebsiella bacteremia from, permacath infection and most recent MRSA bacteremia from permacath infection in July and was treated for with vancomycin IV for 4 weeks until 09/02/2020. On 09/14 his echocardiogram showed no vegetation and he had a negative stress test in 2018. Upon arrival to the emergency department he was hypertensive to 190/128, tachycardic 114, afebrile but had leukocytosis and started treatment for MRSA bacteremia for sepsis pathway was initiated. However patient's lactic acid was normal and given history of his ESRD and CHF and current hypertension patient did not require fluid resuscitation. Work-up in the emergency department reveals leukocytosis at 19,000, hyperkalemia at 5.2, thrombocytosis at 731,000, hypochloremia at 92.9, hyperglycemia 237 with an A1c of 6.2 and elevated BUN/creatinine at 80/15.4. CXR shows mild cardiomegaly with pulmonary venous hypertension and a CT abdomen/pelvis shows primary esophageal wall thickening which is present in the prior study as well and nondilated fluid-filled small bowel without evidence of mechanical obstruction. In the emergency department he received hydralazine and labetalol for his hypertensive emergency and Zofran and Reglan for his persistent nausea and vomiting. Nephrology and infectious disease were consulted. Patient will be admitted to the hospital service for continuation of his MRSA bacteremia treatment, hypertensive emergency and persistent nausea and vomiting. Past History Past Medical History: COPD, diabetes, ESRD, GERD, hypertension (COPD diabetes), renal failure, other (Ulcerative esophagitis, NSTEMI, Gastroparesis) Past Surgical History: appendectomy, cholecystectomy, Other (Right great toe amputation and right chest wall permacath) Social history: single, lives with family, full code. denies: smoking, alcohol abuse, prescription drug abuse, IV drug use Family history: no significant family history Medications and Allergies Allergies Allergy/AdvReac Type Severity Reaction Status Date / Time No Known Allergies Allergy Verified 07/20/20 15:05 Home Medications Medication Instructions Recorded Confirmed Last Taken Type Lispro Insulin [HumaLOG] 5 unit SQ AC #1 vial 04/17/20 09/08/20 09/05/20 17:00 Rx Albuterol Sulfate [Albuterol 0.63% 0.63 mg IH BID PRN 09/05/20 09/08/20 09/05/20 17:00 History NEBS] Apixaban [Eliquis] 5 mg PO BID 09/05/20 09/08/20 09/05/20 17:00 History Labetalol 300mg TAB 300 mg PO BID 09/05/20 09/08/20 09/05/20 17:00 History Levemir Flextouch 10 units SQ PC 09/05/20 09/08/20 09/05/20 17:00 History Metoclopramide [Reglan TAB] 10 mg PO TID PRN 09/05/20 09/08/20 09/05/20 17:00 History Pantoprazole [Protonix TAB] 40 mg PO BID 09/05/20 09/08/20 09/05/20 17:00 History cloNIDine [Catapres] 0.2 mg PO TID #180 tablet 09/15/20 Unknown Rx lisinopriL [Zestril TAB] 20 mg PO QHS #30 tablet 09/15/20 Unknown Rx Active Meds: Active Medications Acetaminophen (Tylenol) 650 mg PO Q4H PRN PRN Reason: Pain MILD(1-3)/Fever >100.5/LANZA Albuterol (Proventil) 2.5 mg IH Q4HRT PRN PRN Reason: Shortness Of Breath Clonidine HCl (Catapres) 0.2 mg PO TID [facility] Dextrose (D50w (25gm) Syringe) 50 ml IV Q30MIN PRN; Protocol PRN Reason: Hypoglycemia Insulin Human Lispro (Humalog) 0 unit SUB-Q ACHS [facility]; Protocol Labetalol HCl (Labetalol) 300 mg PO BID [facility] Lisinopril (Zestril) 20 mg PO QHS [facility] Naloxone HCl (Naloxone) 0.1 mg IV Q2MIN PRN PRN Reason: Res Rate </= 8 or 02 SAT < 92% Ondansetron HCl (Zofran) 4 mg IV Q8H PRN PRN Reason: Nausea And Vomiting Oxycodone/Acetaminophen (Percocet 5/325) 1 tab PO Q6H PRN PRN Reason: Pain, Moderate (4-6) Pantoprazole Sodium (Protonix) 40 mg PO BIDAC KESHIA Sodium Chloride (Sodium Chloride Flush Syringe 10 Ml) 10 ml IV BID KESHIA Sodium Chloride (Sodium Chloride Flush Syringe 10 Ml) 10 ml IV PRN PRN PRN Reason: LINE FLUSH Review of Systems Constitutional: no weight loss, no weight gain, no fever, no chills, no sweats, no night sweats, no anorexia, no fatigue, no weakness, no malaise, no lethargy, no chronic headaches, no poor appetite Ears, nose, mouth and throat: no ear pain, no ear discharge, no tinnitis, no decreased hearing, no nose pain, no nasal congestion, no nasal discharge, no sinus pressure, no sinus pain, no epistaxis, no bleeding gums, no dental pain, no mouth pain, no dysphagia, no hoarseness, no sore throat, no swelling in mouth, no swelling in throat, no post-nasal drip, no headache Cardiovascular: edema, high blood pressure, leg edema, no chest pain, no orthopnea, no palpitations, no rapid/irregular heart beat, no syncope, no lightheadedness, no shortness of breath, no dyspnea on exertion, no paroxysmal nocturnal dyspnea Respiratory: hemoptysis, no cough, no cough with sputum, no excessive sputum, no shortness of breath, no dyspnea on exertion, no congestion, no wheezing, no pl eurisy Gastrointestinal: no abdominal pain, no nausea, no vomiting, no diarrhea, no constipation, no change in bowel habits, no hematemesis, no coffee ground emesis, no melena, no hematochezia, no early satiety, no heartburn, no indigestion, no dyspepsia/bloating Genitourinary Male: no dysuria, no hematuria, no flank pain, no discharge, no urinary frequency, no urinary hesitancy, no nocturia Rectal: no incontinence, no bleeding, no hemorrhoids Musculoskeletal: no neck stiffness, no neck pain, no shooting arm pain, no arm numbness/tingling, no low back pain, no shooting leg pain, no leg numbnes s/tingling Integumentary: no rash, no pruritis, no redness, no sores Neurological: no head injury, no transient paralysis, no paralysis, no weakness, no parathesias, no numbness, no tingling, no seizures, no headaches, no migraines, no convulsions, no change in speech Psychiatric: no anxiety Endocrine: no cold intolerance, no heat intolerance, no polyphagia, no excessive thirst, no polydipsia, no polyuria, no nocturia, no palpatations, no high blood sugars Hematologic/Lymphatic: no easy bruising, no easy bleeding Allergic/Immunologic: no urticaria, no allergic rhinitis, no persistent infections Exam - Constitutional Vitals: Temp Pulse Resp BP Pulse Ox 98.2 F 111 H 21 163/106 100 09/21/20 02:09 09/21/20 06:00 09/21/20 06:30 09/21/20 06:30 09/21/20 05:11 - EENT Eyes: Present: PERRL ENT: hearing intact, poor dentition - Neck Neck: Present: normal ROM - Respiratory Respiratory effort: normal Respiratory: bilateral: CTA - Cardiovascular Rhythm: regular Heart Sounds: Present: S1 & S2. Absent: systolic murmur, diastolic murmur - Extremities Extremities: no ischemia, pulses intact, pulses symmetrical, No edema, normal temperature, normal color, Full ROM Peripheral Pulses: within normal limits - Abdominal General gastrointestinal: Present: soft, tender, non-distended, normal bowel sounds Localized gastrointestinal: tender: diffuse - Integumentary Integumentary: Present: clear, warm, dry - Musculoskeletal Musculoskeletal: strength equal bilaterally - Psychiatric Psychiatric: other (Uncooperative ) - Neurologic Neurologic: CNII-XII intact, no focal deficits, moves all extremities Results - Labs CBC & Chem 7: 09/21/20 03:25 09/21/20 03:25 Labs: Laboratory Last Values WBC 19.1 K/mm3 (4.5-11.0) H 09/21/20 03:25 RBC 4.33 M/mm3 (3.65-5.03) 09/21/20 03:25 Hgb 11.2 gm/dl (11.8-15.2) L 09/21/20 03:25 Hct 34.7 % (35.5-45.6) L 09/21/20 03:25 MCV 80 fl (84-94) L 09/21/20 03:25 MCH 26 pg (28-32) L 09/21/20 03:25 MCHC 32 % (32-34) 09/21/20 03:25 RDW 22.6 % (13.2-15.2) H 09/21/20 03:25 Plt Count 731 K/mm3 (140-440) H 09/21/20 03:25 Lymph % (Auto) 6.3 % (13.4-35.0) L 09/21/20 03:25 [place] % (Auto) 4.6 % (0.0-7.3) 09/21/20 03:25 Eos % (Auto) 0.2 % (0.0-4.3) 09/21/20 03:25 Baso % (Auto) 1.1 % (0.0-1.8) 09/21/20 03:25 Lymph # (Auto) 1.2 K/mm3 (1.2-5.4) 09/21/20 03:25 [place] # (Auto) 0.9 K/mm3 (0.0-0.8) H 09/21/20 03:25 Eos # (Auto) 0.0 K/mm3 (0.0-0.4) 09/21/20 03:25 Baso # (Auto) 0.2 K/mm3 (0.0-0.1) H 09/21/20 03:25 Seg Neutrophils % 89.4 % (40.0-70.0) H 09/21/20 03:25 Seg Neutrophils # 17.0 K/mm3 (1.8-7.7) H 09/21/20 03:25 APTT 39.3 Sec. (24.2-36.6) H 09/21/20 03:25 Sodium 137 mmol/L (137-145) 09/21/20 03:25 Potassium 5.2 mmol/L (3.6-5.0) H 09/21/20 03:25 Chloride 92.9 mmol/L (98-107) L 09/21/20 03:25 Carbon Dioxide 22 mmol/L (22-30) 09/21/20 03:25 Anion Gap 27 mmol/L 09/21/20 03:25 BUN 80 mg/dL (9-20) H 09/21/20 03:25 Creatinine 15.4 mg/dL (0.8-1.3) H 09/21/20 03:25 Estimated GFR 4 ml/min 09/21/20 03:25 BUN/Creatinine Ratio 5 % 09/21/20 03:25 Glucose 237 mg/dL (75-100) H 09/21/20 03:25 Hemoglobin A1c 6.2 % (4-6) H 09/21/20 03:25 Lactic Acid 1.30 mmol/L (0.7-2.0) 09/21/20 05:18 Calcium 10.2 mg/dL (8.4-10.2) 09/21/20 03:25 Total Bilirubin 0.60 mg/dL (0.1-1.2) 09/21/20 03:25 AST 16 units/L (5-40) 09/21/20 03:25 ALT 8 units/L (7-56) 09/21/20 03:25 Alkaline Phosphatase 172 units/L (35-129) H 09/21/20 03:25 Total Protein 8.3 g/dL (6.3-8.2) H 09/21/20 03:25 Albumin 4.0 g/dL (3.9-5) 09/21/20 03:25 Albumin/Globulin Ratio 0.9 % 09/21/20 03:25 Microbiology: Microbiology 09/21/20 06:08 Peripheral/Venous Blood Culture - Preliminary Culture in Progress 09/21/20 06:02 Peripheral/Venous Blood Culture - Preliminary Culture in Progress - Imaging and Cardiology Chest x-ray: report reviewed CT scan - abdomen: report reviewed CT scan - pelvis: report reviewed - Diagnostic Impressions Diagnostic Impressions: 09/21 CT abdomen/pelvis: 1. No definite acute finding within the abdomen or pelvis. 2. Prominent esophageal wall thickening in the visualized portion of the distal esophagus. This was present on the prior study as well. 3. Nondilated fluid-filled small bowel. No evidence of mechanical obstruction. This could indicate the presence of mild enteritis, if clinical symptoms/presentation are appropriate. 09/21 CXR/ABD XR: 1. No acute finding within the abdomen. 2. Mild cardiomegaly with pulmonary venous hypertension. Perez/IV: IV Catheter Type [Right INT / Saline Lock Internal Jugular] Assessment and Plan VTE prophylaxis?: Mechanical Plan of care discussed with patient/family: Yes - Patient Problems (1) Sepsis Current Visit: Yes Status: Acute Plan to address problem: Presented with leukocytosis, tachycardia, hypertension and was recently discharged with MRSA bacteremia for which he did not finish his treatment Substance pathway initiated No need for IVF resuscitation in light of hypertension CHF and ESRD 09/21 BC x2 obtained in the ED 09/21 MRSA PCR pending IV antibiotics ID consult (2) Hypertensive emergency Current Visit: No Status: Acute Plan to address problem: Presented with a blood pressure of 209/128 S/p hydralazine and labetalol in the emergency department Resume home antihypertensive regimen Patient does not know why he missed his blood pressure medications Blood pressure monitoring per protocol As needed hydralazine for SBP greater than 160 (3) Thrombocytosis Current Visit: Yes Status: Acute Plan to address problem: Presenting platelets of 731 Heparin subcu for prophylaxis Trend CBC (4) Intractable nausea and vomiting Current Visit: Yes Status: Acute Plan to address problem: S/p Zofran and Reglan in the ED As needed antiemetics Supportive care (5) Acute hyperkalemia Current Visit: No Status: Acute Plan to address problem: Presented with a calcium of 5.2 Nephrology consulted Secondary to missed HD session trend BMP (6) ESRD on hemodialysis Current Visit: Yes Status: Chronic Plan to address problem: Patient missed last HD session and 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 Presented with BUN/creatinine of 80/15.4 Nephrology consulted Avoid nephrotoxic medications Renally dose medications HD per nephrology Outpatient HD schedule MWF Strict intake and output (7) IDDM (insulin dependent diabetes mellitus) Current Visit: Yes Status: Chronic Plan to address problem: 09/21 hemoglobin A1c 6.2 SSI Accu-Cheks AC at bedtime CC renal cardiac diet Restart home insulin (8) Anemia in chronic illness Current Visit: No Status: Chronic Plan to address problem: Presented with H/H 11.2/34.7 Epogen per renal team Trend CBC Transfuse for hemoglobin less than 7 (9) Esophagitis Current Visit: No Status: Chronic Plan to address problem: Patient has a history of ulcerative esophagitis Resume home PPI Supportive care (10) Medical non-compliance Current Visit: No Status: Chronic Plan to address problem: Patient states he does not have a PCP and 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 Medical compliance strongly encouraged Patient was supposed to be getting vancomycin with each HD session until 10/08 Case management consulted (11) DVT prophylaxis Current Visit: No Status: Acute Plan to address problem: SCDs to bilateral lower extremities while in bed Heparin subcu for DVT prophylaxis (12) Full code status Current Visit: No Status: Acute <ANASTACIO CEDEÑO R - Last Filed: 09/21/20 16:37> History of Present Illness Date of examination: 09/21/20 Date of admission: 09/21/20 07:22 Chief complaint: missed HD Medications and Allergies Active Meds: Active Medications Acetaminophen (Tylenol) 650 mg PO Q4H PRN PRN Reason: Pain MILD(1-3)/Fever >100.5/LANZA Albuterol (Proventil) 2.5 mg IH Q4HRT PRN PRN Reason: Shortness Of Breath Clonidine HCl (Catapres) 0.2 mg PO TID [facility] Last Admin: 09/21/20 14:42 Dose: Not Given Documented by: Dextrose (D50w (25gm) Syringe) 50 ml IV Q30MIN PRN; Protocol PRN Reason: Hypoglycemia Heparin Sodium (Porcine) (Heparin) 5,000 unit SUB-Q Q8HR [facility] Last Admin: 09/21/20 14:42 Dose: Not Given Documented by: Hydralazine HCl (Apresoline) 10 mg IV Q4H PRN PRN Reason: Hypertension Cefepime HCl (Cefepime/Ns 1 Gm/100 Ml) 1 gm in 100 mls @ 200 mls/hr IV Q24HR [facility]; Protocol Insulin Human Lispro (Humalog) 0 unit SUB-Q ACHS [facility]; Protocol Last Admin: 09/21/20 11:13 Dose: 3 unit Documented by: Insulin Human Lispro (Humalog) 5 unit SUB-Q AC [facility] Last Admin: 09/21/20 11:13 Dose: 5 unit Documented by: Labetalol HCl (Labetalol) 300 mg PO BID [facility] Last Admin: 09/21/20 11:02 Dose: 300 mg Documented by: Lisinopril (Zestril) 20 mg PO QHS [facility] Metronidazole (Flagyl) 500 mg PO Q8HR [facility]; Protocol Last Admin: 09/21/20 14:42 Dose: Not Given Documented by: Naloxone HCl (Naloxone) 0.1 mg IV Q2MIN PRN PRN Reason: Res Rate </= 8 or 02 SAT < 92% Ondansetron HCl (Zofran) 4 mg IV Q8H PRN PRN Reason: Nausea And Vomiting Oxycodone/Acetaminophen (Percocet 5/325) 1 tab PO Q6H PRN PRN Reason: Pain, Moderate (4-6) Pantoprazole Sodium (Protonix) 40 mg PO BIDAC [facility] Last Admin: 09/21/20 11:01 Dose: 40 mg Documented by: Sodium Chloride (Sodium Chloride Flush Syringe 10 Ml) 10 ml IV BID [facility] Last Admin: 09/21/20 11:02 Dose: 10 ml Documented by: Sodium Chloride (Sodium Chloride Flush Syringe 10 Ml) 10 ml IV PRN PRN PRN Reason: LINE FLUSH Exam - Constitutional Vitals: Temp Pulse Resp BP Pulse Ox 98.2 F 91 H 15 122/72 97 09/21/20 02:09 09/21/20 12:15 09/21/20 12:15 09/21/20 12:15 09/21/20 12:15 Results - Labs CBC & Chem 7: 09/21/20 03:25 09/21/20 03:25 Labs: Laboratory Last Values WBC 19.1 K/mm3 (4.5-11.0) H 09/21/20 03:25 RBC 4.33 M/mm3 (3.65-5.03) 09/21/20 03:25 Hgb 11.2 gm/dl (11.8-15.2) L 09/21/20 03:25 Hct 34.7 % (35.5-45.6) L 09/21/20 03:25 MCV 80 fl (84-94) L 09/21/20 03:25 MCH 26 pg (28-32) L 09/21/20 03:25 MCHC 32 % (32-34) 09/21/20 03:25 RDW 22.6 % (13.2-15.2) H 09/21/20 03:25 Plt Count 731 K/mm3 (140-440) H 09/21/20 03:25 Lymph % (Auto) 6.3 % (13.4-35.0) L 09/21/20 03:25 [place] % (Auto) 4.6 % (0.0-7.3) 09/21/20 03:25 Eos % (Auto) 0.2 % (0.0-4.3) 09/21/20 03:25 Baso % (Auto) 1.1 % (0.0-1.8) 09/21/20 03:25 Lymph # (Auto) 1.2 K/mm3 (1.2-5.4) 09/21/20 03:25 [place] # (Auto) 0.9 K/mm3 (0.0-0.8) H 09/21/20 03:25 Eos # (Auto) 0.0 K/mm3 (0.0-0.4) 09/21/20 03:25 Baso # (Auto) 0.2 K/mm3 (0.0-0.1) H 09/21/20 03:25 Seg Neutrophils % 89.4 % (40.0-70.0) H 09/21/20 03:25 Seg Neutrophils # 17.0 K/mm3 (1.8-7.7) H 09/21/20 03:25 APTT 39.3 Sec. (24.2-36.6) H 09/21/20 03:25 Sodium 137 mmol/L (137-145) 09/21/20 03:25 Potassium 5.2 mmol/L (3.6-5.0) H 09/21/20 03:25 Chloride 92.9 mmol/L (98-107) L 09/21/20 03:25 Carbon Dioxide 22 mmol/L (22-30) 09/21/20 03:25 Anion Gap 27 mmol/L 09/21/20 03:25 BUN 80 mg/dL (9-20) H 09/21/20 03:25 Creatinine 15.4 mg/dL (0.8-1.3) H 09/21/20 03:25 Estimated GFR 4 ml/min 09/21/20 03:25 BUN/Creatinine Ratio 5 % 09/21/20 03:25 Glucose 237 mg/dL (75-100) H 09/21/20 03:25 POC Glucose 250 mg/dL (70-105) H 09/21/20 11:24 Hemoglobin A1c 6.2 % (4-6) H 09/21/20 03:25 Lactic Acid 1.30 mmol/L (0.7-2.0) 09/21/20 05:18 Calcium 10.2 mg/dL (8.4-10.2) 09/21/20 03:25 Total Bilirubin 0.60 mg/dL (0.1-1.2) 09/21/20 03:25 AST 16 units/L (5-40) 09/21/20 03:25 ALT 8 units/L (7-56) 09/21/20 03:25 Alkaline Phosphatase 172 units/L (35-129) H 09/21/20 03:25 Total Protein 8.3 g/dL (6.3-8.2) H 09/21/20 03:25 Albumin 4.0 g/dL (3.9-5) 09/21/20 03:25 Albumin/Globulin Ratio 0.9 % 09/21/20 03:25 Microbiology: Microbiology 09/21/20 06:08 Peripheral/Venous Blood Culture - Preliminary Culture in Progress 09/21/20 06:02 Peripheral/Venous Blood Culture - Preliminary Culture in Progress Perez/IV: IV Catheter Type [Right INT / Saline Lock Internal Jugular] Assessment and Plan Assessment and plan: I saw and evaluated the patient. I agree with the findings and the plan of care as documented in the Nurse Practitioner's~note,
[2020-09-21] MEDS ORDERED: CEFEPIME/NS 1 GM/100 ML 1 GM/100 ML BAG IV SCH ×2 (10:00)
[2020-09-21] MEDS ORDERED: hydrALAZINE 20 MG/1 ML INJ IV PRN (10:00)
[2020-09-21] MEDS ORDERED: PANTOPRAZOLE 40 MG TAB PO ONE (10:57)
[2020-09-21] MEDS ORDERED: cloNIDine 0.2 MG TAB ONE (10:58)
[2020-09-21] MEDS: PANTOPRAZOLE 40 MG TAB PO SCH ×2 (11:01→18:13)
[2020-09-21] MEDS: cloNIDine 0.1 MG TAB PO SCH ×3 (11:02→22:45)
[2020-09-21] MEDS ORDERED: INSULIN LISPRO 100 UNIT/ML VIAL 3 mL SUB-Q ONE (11:11)
[2020-09-21] MEDS: INSULIN LISPRO 100 UNIT/ML VIAL 3 mL SUB-Q SCH ×5 (11:13→22:50)
[2020-09-21] MEDS ORDERED: LISPRO INSULIN SQ SCH (11:30)
[2020-09-21] MEDS ORDERED: SODIUM POLYSTYRENE 15 GM/60 ML ORAL LIQD PO ONE (14:30)
[2020-09-21] MEDS: HEPARIN 5,000 UNIT/1 ML VIAL SUB-Q SCH ×2 (14:42→22:50)
[2020-09-21] MEDS: metroNIDAZOLE 500 MG TAB PO SCH ×2 (14:42→22:59)
[2020-09-21] MEDS ORDERED: LISINOPRIL 20 MG TAB PO SCH (22:00)
[2020-09-22 05:03] LABS: Basophils # (Auto) 0.1 K/mm3 (0.0-0.1); Basophils % (Auto) 1.2 % (0.0-1.8); Eosinophils # (Auto) 0.2 K/mm3 (0.0-0.4); Eosinophils % (Auto) 1.5 % (0.0-4.3); Hemoglobin 9.9 gm/dl (11.8-15.2); Lymphocytes # (Auto) 1.5 K/mm3 (1.2-5.4); Lymphocytes % (Auto) 13.6 % (13.4-35.0); Mean Corpuscular HGB Conc 32 % (32-34); Mean Corpuscular Volume 83 fl (84-94); Monocytes # (Auto) 0.9 K/mm3 (0.0-0.8); Monocytes % (Auto) 7.9 % (0.0-7.3); Platelet Count 527 K/mm3 (140-440); Red Blood Count 3.72 M/mm3 (3.65-5.03)
[2020-09-22 05:10] LABS: Red Cell Distribution Width 22.9 % (13.2-15.2)
[2020-09-22 05:23] LABS: Calcium 9.2 mg/dL (8.4-10.2)
[2020-09-22] MEDS: HEPARIN 5,000 UNIT/1 ML VIAL SUB-Q SCH ×2 (06:20→14:31)
[2020-09-22] MEDS: metroNIDAZOLE 500 MG TAB PO SCH ×2 (06:21→14:31)
[2020-09-22] MEDS: INSULIN LISPRO 100 UNIT/ML VIAL 3 mL SUB-Q SCH ×6 (07:30→16:57)
--- NOTE | 2020-09-22 07:34 | Consultation ---
History of Present Illness - Reason for Consult Consult date: 09/22/20 - History of Present Illness 34 years old male with history of end-stage renal disease on hemodialysis, noncompliance, hypertension, diabetes mellitus, recurrent ulcerative esophagitis, known to ID service secondary to previous ESBL Klebsiella bacteremia from permacath infection and most recently MRSA bacteremia from PermCath infection in July 2020 and then again in August 2020. Patient was recently discharged from this hospital due to recurrent MRSA bacteremia on 09/07/2020. Repeat blood cultures were negative. Repeat transthoracic echo showed no vegetations. Patient initially underwent revision of the AV fistula with elevation and replacement on 09/09/2020. Patient underwent fluoroscopic guided replacement of the left internal jugular to alcohol dialysis catheter and angioplasty of the left innominate vein and SVC on 09/12/2020. Patient was discharged home on vancomycin 1 g IV after each hemodialysis for 4 weeks until 10/08/2020. Unfortunately, patient was readmitted secondary to 6 days history of coughing up blood and missing hemodialysis. Patient is well-known to me is hemodialysis often. He reports that the cough with glottis, for him. Patient denies any fever, chills, nausea, vomiting, diarrhea. Patient denies any exposure to tuberculosis. In the emergency room, initial WBC 19,000, platelets 731,000, chest x-ray shows cardiomegaly with pulmonary venous hypertension. CT of abdomen shows primary esophageal wall thickening. Past History Review of Systems: positive in bold print General: fever, chills, malaise Cutaneous: rash, pruritus Head: headaches or injury Eyes: changes in vision, eye pain, double vision Ears: ear pain, ear discharge, ringing or hearing loss Nose: nose bleeding, stuffiness Mouth & throat: bleeding gums, horseness, no dental problems, or swollen glands Neck: no pain, node enlargement/lumps, tyroid enlargement or tenderness Respiratory: SOB, cough, ESTRADA, wheezing, sputum, hemoptysis, pleuritic chest pain Cardiovascular: chest pain, leg edema, cyanosis, ESTRADA, orthopnea Musculoskeletal: edema, deformities, pain Gastrointestinal: nausea, vomiting, hematemesis, diarrhea, constipation, melena, bright red blood in stools, fecal incontinence, jaundice Genitourinary/Reproductive: frequent urination, dysuria, hematuria, incontinence Neurogical: seizures, headaches, weakness, paresthesias, loss of speech or vision; memory loss, vertigo, tremors, numbness Psychiatric: stable mood; excessive anxiety, sadness or moodiness General appearance: Alert in NAD pleasant Eyes: anicteric sclerae, moist conjunctivae; no lid-lag; PERRLA HENT: Normocephalic, Atraumatic; normal external ears, nares open, oropharynx clear with moist mucous membranes and no oral thrush; normal hard and soft palate. Neck: supple, tracheal midline, no JVD Lungs: CTA, with normal respiratory effort and no intercostal retractions CV: RRR no murmur Abdomen: Soft, non-tender; no masses or hepatosplenomegaly Extremities: no edema, no cyanosis Skin: No rash. Psych: no agitated Neuro: alert and oriented x 3. Moving all extermities Cultures: Blood cultures 09/21/2020 no growth today Assessment: Sepsis: present on admission with fever, tachycardia, hypotension, elevated lactate; source Recommendations: Will follow. Chloe Fitch MD Infectious Diseases Coach [employer] [facility] ([facility]) M [phone] O [phone] Past History Past Medical History: COPD, diabetes, ESRD, GERD, hypertension (COPD diabetes), renal failure, other (Ulcerative esophagitis, NSTEMI, Gastroparesis) Past Surgical History: appendectomy, cholecystectomy, Other (Right great toe amputation and right chest wall permacath) Social history: single, lives with family, full code. denies: smoking, alcohol abuse, prescription drug abuse, IV drug use Family history: no significant family history Medications and Allergies Allergies Allergy/AdvReac Type Severity Reaction Status Date / Time No Known Allergies Allergy Verified 07/20/20 15:05 Home Medications Medication Instructions Recorded Confirmed Last Taken Type Lispro Insulin [HumaLOG] 5 unit SQ AC #1 vial 04/17/20 09/22/20 09/05/20 17:00 Rx Albuterol Sulfate [Albuterol 0.63% 0.63 mg IH BID PRN 09/05/20 09/22/20 09/05/20 17:00 History NEBS] Apixaban [Eliquis] 5 mg PO BID 09/05/20 09/22/20 09/21/20 History Labetalol 300mg TAB 300 mg PO BID 09/05/20 09/22/20 09/21/20 History Levemir Flextouch 10 units SQ PC 09/05/20 09/22/20 09/05/20 17:00 History Metoclopramide [Reglan TAB] 10 mg PO TID PRN 09/05/20 09/22/20 09/21/20 History Pantoprazole [Protonix TAB] 40 mg PO BID 09/05/20 09/22/20 09/21/20 History cloNIDine [Catapres] 0.2 mg PO TID #180 tablet 09/15/20 09/22/20 09/21/20 Rx lisinopriL [Zestril TAB] 20 mg PO QHS #30 tablet 09/15/20 09/22/20 09/21/20 Rx Active Meds: Active Medications Acetaminophen (Tylenol) 650 mg PO Q4H PRN PRN Reason: Pain MILD(1-3)/Fever >100.5/LANZA Albuterol (Proventil) 2.5 mg IH Q4HRT PRN PRN Reason: Shortness Of Breath Clonidine HCl (Catapres) 0.2 mg PO TID [facility] Last Admin: 09/21/20 22:45 Dose: 0.2 mg Documented by: Dextrose (D50w (25gm) Syringe) 50 ml IV Q30MIN PRN; Protocol PRN Reason: Hypoglycemia Heparin Sodium (Porcine) (Heparin) 5,000 unit SUB-Q Q8HR [facility] Last Admin: 09/22/20 06:20 Dose: 5,000 unit Documented by: Hydralazine HCl (Apresoline) 10 mg IV Q4H PRN PRN Reason: Hypertension Cefepime HCl (Cefepime/Ns 1 Gm/100 Ml) 1 gm in 100 mls @ 200 mls/hr IV Q24HR [facility]; Protocol Insulin Human Lispro (Humalog) 0 unit SUB-Q ACHS [facility]; Protocol Last Admin: 09/21/20 22:50 Dose: Not Given Documented by: Insulin Human Lispro (Humalog) 5 unit SUB-Q AC [facility] Last Admin: 09/21/20 18:11 Dose: 5 unit Documented by: Labetalol HCl (Labetalol) 300 mg PO BID [facility] Last Admin: 09/21/20 22:58 Dose: 300 mg Documented by: Lisinopril (Zestril) 20 mg PO QHS [facility] Last Admin: 09/21/20 22:50 Dose: 20 mg Documented by: Metronidazole (Flagyl) 500 mg PO Q8HR [facility]; Protocol Last Admin: 09/22/20 06:21 Dose: 500 mg Documented by: Naloxone HCl (Naloxone) 0.1 mg IV Q2MIN PRN PRN Reason: Res Rate </= 8 or 02 SAT < 92% Ondansetron HCl (Zofran) 4 mg IV Q8H PRN PRN Reason: Nausea And Vomiting Last Admin: 09/21/20 18:03 Dose: 4 mg Documented by: Oxycodone/Acetaminophen (Percocet 5/325) 1 tab PO Q6H PRN PRN Reason: Pain, Moderate (4-6) Pantoprazole Sodium (Protonix) 40 mg PO BIDAC [facility] Last Admin: 09/21/20 18:13 Dose: Not Given Documented by: Sodium Chloride (Sodium Chloride Flush Syringe 10 Ml) 10 ml IV BID [facility] Last Admin: 09/21/20 22:50 Dose: 10 ml Documented by: Sodium Chloride (Sodium Chloride Flush Syringe 10 Ml) 10 ml IV PRN PRN PRN Reason: LINE FLUSH Physical Examination - Constitutional Vitals: Vital Signs Temp Pulse Resp BP Pulse Ox 98.6 F 82 18 150/98 99 09/22/20 04:40 09/22/20 04:40 09/22/20 04:40 09/22/20 04:40 09/22/20 04:40 Temperature -Last 24 Hours Temperature 98.6 F Temperature 98.4 F Temperature 98.1 F Temperature 98.5 F Temperature 98 F Results - Labs CBC & Chem 7: 09/22/20 04:43 09/22/20 04:43 Labs: Abnormal lab results 09/21/20 09/21/20 09/21/20 Range/Units 03:25 11:24 17:19 Hgb (11.8-15.2) gm/dl Hct (35.5-45.6) % MCV (84-94) fl MCH (28-32) pg RDW (13.2-15.2) % Plt Count (140-440) K/mm3 Carlton % (Auto) (0.0-7.3) % Carlton # (Auto) (0.0-0.8) K/mm3 Seg Neutrophils % (40.0-70.0) % Seg Neutrophils # (1.8-7.7) K/mm3 Potassium (3.6-5.0) mmol/L BUN (9-20) mg/dL Creatinine (0.8-1.3) mg/dL Glucose (75-100) mg/dL POC Glucose 250 H 158 H (70-105) mg/dL Hemoglobin A1c 6.2 H (4-6) % 09/22/20 09/22/20 Range/Units 04:43 04:43 Hgb 9.9 L (11.8-15.2) gm/dl Hct 31.0 L (35.5-45.6) % MCV 83 L (84-94) fl MCH 27 L (28-32) pg RDW 22.9 H (13.2-15.2) % Plt Count 527 H (140-440) K/mm3 Carlton % (Auto) 7.9 H (0.0-7.3) % Carlton # (Auto) 0.9 H (0.0-0.8) K/mm3 Seg Neutrophils % 75.8 H (40.0-70.0) % Seg Neutrophils # 8.3 H (1.8-7.7) K/mm3 Potassium 5.3 H (3.6-5.0) mmol/L BUN 51 H (9-20) mg/dL Creatinine 10.7 H (0.8-1.3) mg/dL Glucose 152 H (75-100) mg/dL POC Glucose (70-105) mg/dL Hemoglobin A1c (4-6) %
[2020-09-22] MEDS: cloNIDine 0.1 MG TAB PO SCH ×2 (08:00→14:31)
[2020-09-22] MEDS ORDERED: SODIUM POLYSTYRENE 15 GM/60 ML ORAL LIQD PO SCH (09:23)
--- NOTE | 2020-09-22 09:24 | Discharge Summary ---
Providers - Providers Date of Admission: 09/21/20 07:22 Attending physician: ANASTACIO CEDEÑO 09/21/20 07:58 Consult to Physician [CONS] Routine Comment: Consulting Provider: KAMILLE MOTTA Physician Instructions: Reason For Exam: MRSA bacteremia, ? complience with abx 09/21/20 08:03 Consult to Physician [CONS] Routine Comment: Consulting Provider: ABDELRAHMAN MADRID Physician Instructions: Reason For Exam: ESRD on HD Primary care physician: [employer] Hospitalization Condition: Stable Hospital course: This is a 34-year-old male with CHF, ESRD on HD (MWF), COPD, DM, GERD, gastroparesis, ulcerative esophagitis who presented to the emergency department on 09/20 for complaints of "missed dialysis, coughing up blood and high blood pressure". Patient is a poor historian and is uncooperative with the interview and most of the history is obtained from prior chart review. 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 Patient states that he has been coughing up blood for about 6 days however upon review prior records this is a common phenomenon for him. Patient denies any chills, chest pain, night sweats, fevers, shortness of breath, nausea or vomiting or diarrhea, any sick contacts, recent known exposure to COVID-19 or tuberculosis. Of note patient was discharged on 09/15 after diagnosis of sepsis secondary to MRSA bacteremia secondary to permacath infection, hypertensive emergency and dialysis fistula malfunction. Patient was supposed to receive 1 g of vancomycin IV after each HD session for 4 weeks until 10/08. Of note patient had ESBL Klebsiella bacteremia from, permacath infection and m ost recent MRSA bacteremia from permacath infection in July and was treated for with vancomycin IV for 4 weeks until 09/02/2020. On 09/14 his echocardiogram showed no vegetation and he had a negative stress test in 2018. Upon arrival to the emergency department he was hypertensive to 190/128, tachycardic 114, afebrile but had leukocytosis and started treatment for MRSA bacteremia for sepsis pathway was initiated. However patient's lactic acid was normal and given history of his ESRD and CHF and current hypertension patient did not require fluid resuscitation. Work-up in the emergency department reveals leukocytosis at 19,000, hyperkalemia at 5.2, thrombocytosis at 731,000, hypochloremia at 92.9, hyperglycemia 237 with an A1c of 6.2 and elevated BUN/creatinine at 80/15.4. CXR shows mild cardiomegaly with pulmonary venous hypertension and a CT abdomen/pelvis shows primary esophageal wall thickening which is present in the prior study as well and nondilated fluid-filled small bowel without evidence of mechanical obstruction. In the emergency department he received hydralazine and labetalol for his hypertensive emergency and Zofran and Reglan for his persistent nausea and vomiting. Nephrology and infectious disease were consulted. Patient will be admitted to the hospital service for continuation of his MRSA bacteremia treatment, hypertensive emergency and persistent nausea and vomiting. He received hemodialysis yesterday on 09/21. Patient will be discharged home and will resume his outpatient HD schedule and he will be receiving vancomycin with HD till 10/08 as previously arranged. Patient will need to follow-up with infectious disease, nephrology and primary care physician post discharge. (1) Sepsis Current Visit: Yes Status: Acute Plan to address problem: Presented with leukocytosis, tachycardia, hypertension and was recently discharged with MRSA bacteremia for which he did not finish his treatment Substance pathway initiated No need for IVF resuscitation in light of hypertension CHF and ESRD 09/21 BC x2 obtained in the ED 09/21 MRSA PCR pending IV antibiotics while inpatient Patient will resume antibiotics with HD per orders from last visit ID consulted, follow-up outpatient (2) Hypertensive emergency Current Visit: No Status: Acute Plan to address problem: Presented with a blood pressure of 209/128 S/p hydralazine and labetalol in the emergency department Resume home antihypertensive regimen Patient does not know why he missed his blood pressure medications Blood pressure monitoring per PCP instructions (3) Thrombocytosis Current Visit: Yes Status: Acute Plan to address problem: Presenting platelets of 731 Discharge platelets 527 (4) Intractable nausea and vomiting Current Visit: Yes Status: Resolved Plan to address problem: S/p Zofran and Reglan in the ED As needed antiemetics Supportive care (5) Acute hyperkalemia Current Visit: No Status: Acute Plan to address problem: Presented with a calcium of 5.2, 09/22 potassium 5.3, patient did not receive his Kayexalate as ordered 09/21 due to HD Nephrology consulted Secondary to missed HD session Given kayexalate on 09/22 (6) ESRD on hemodialysis Current Visit: Yes Status: Chronic Plan to address problem: Patient missed last HD session and does not know his 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 Presented with BUN/creatinine of 80/15.4 Discharge BUN/creatinine 51/10.7 Nephrology consulted and he received HD on 09/21 Avoid nephrotoxic medications Renally dose medications HD per nephrology Outpatient HD schedule MWF (7) IDDM (insulin dependent diabetes mellitus) Current Visit: Yes Status: Chronic Plan to address problem: 09/21 hemoglobin A1c 6.2 Blood glucose monitoring per PCP instructions Resume home insulin Follow-up with wound care physician within 1 to 2 weeks of discharge (8) Anemia in chronic illness Current Visit: No Status: Chronic Plan to address problem: Presented with H/H 11.2/34.7 Epogen per renal team 09/22 H/H 9. 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 is Medical compliance strongly encouraged Patient was supposed to be getting vancomycin with each HD session until 10/08 Case management consulted Patient will resume scheduled HD and DC vancomycin with HD session to 10/08 This was explained to the patient and he agrees to comply with treatment regimen (10) Pulmonary Embolism Current Visit: No Status: Chronic Plan to address problem: Patient had a small pulmonary embolism in May 2020 Patient has had 3 months of therapy with Eliquis Patient was advised to stop taking his Eliquis Disposition: DC-01 TO HOME OR SELFCARE Time spent for discharge: 35 Core Measure Documentation - Palliative Care Palliative Care/ Comfort Measures: Not Applicable - Core Measures Any of the following diagnoses?: history only Exam - Constitutional Vitals: Temp Pulse Resp BP Pulse Ox 98.6 F 82 18 150/98 99 09/22/20 04:40 09/22/20 04:40 09/22/20 04:40 09/22/20 04:40 09/22/20 04:40 General appearance: Present: no acute distress - EENT Eyes: Present: PERRL, EOM intact ENT: hearing intact, poor dentition - Neck Neck: Present: supple, normal ROM - Respiratory Respiratory effort: normal Respiratory: bilateral: CTA - Cardiovascular Rhythm: regular Heart Sounds: Present: S1 & S2. Absent: systolic murmur, diastolic murmur - Extremities Extremities: no ischemia, pulses intact, pulses symmetrical, No edema, normal temperature, normal color, Full ROM Peripheral Pulses: within normal limits - Abdominal General gastrointestinal: Present: soft, non-tender, non-distended, normal bowel sounds - Integumentary Integumentary: Present: warm, dry - Musculoskeletal Musculoskeletal: strength equal bilaterally - Psychiatric Psychiatric: appropriate mood/affect, cooperative - Neurologic Neurologic: CNII-XII intact, no focal deficits, moves all extremities - Allied Health Allied health notes reviewed: nursing, social work, case management Plan Activity: advance as tolerated Diet: low fat, low cholesterol, low salt, diabetic, renal, low carbohydrate Special Instructions: record daily weights, record daily BP diary, record blood sugar diary Additional Instructions: Report to nearest emergency department or contact [facility] physician for worsening symptoms. Medical compliance strongly encouraged. Resume your home HD schedule and you will receive vancomycin with each HD session till 10/08 as previously arranged. Do not miss your dialysis or antibiotic dose. Follow-up with your primary care physician within 1 to 2 weeks of discharge. Follow-up with ID and nephrology post discharge. Follow up with: PRIMARY CARE, [Primary Care Provider] - 7 Days NYA MORENO MD [Staff Physician] - 7 Days KAMILLE MOTTA MD [Staff Physician] - 7 Days Prescriptions: lisinopriL [Zestril TAB] 20 mg PO QHS #30 tablet Albuterol Sulfate [Albuterol 0.63% NEBS] 0.63 mg IH BID PRN #60 vial PRN Reason: Wheezing cloNIDine [Catapres] 0.2 mg PO TID #180 tablet Labetalol 300mg TAB 300 mg PO BID #60 tab Pantoprazole [Protonix TAB] 40 mg PO BID #60 tab
[2020-09-22] MEDS ORDERED: CEFEPIME 0.5 GM in SODIUM CHLORIDE 0.9% 100 ML IV SCH (10:00)
[2020-09-22] MEDS ORDERED: CEFEPIME/NS 1 GM/100 ML 1 GM/100 ML BAG IV SCH (10:00)
[2020-09-22] MEDS: PANTOPRAZOLE 40 MG TAB PO SCH ×2 (10:30→17:04)
--- NOTE | 2020-09-22 11:29 | Consultation ---
History of Present Illness - Reason for Consult Consult date: 09/21/20 end stage renal disease Past History Past Medical History: COPD, diabetes, ESRD, GERD, hypertension (COPD diabetes), renal failure, other (Ulcerative esophagitis, NSTEMI, Gastroparesis) Past Surgical History: appendectomy, cholecystectomy, Other (Right great toe amputation and right chest wall permacath) Social history: single, lives with family, full code. denies: smoking, alcohol abuse, prescription drug abuse, IV drug use Family history: no significant family history Medications and Allergies Allergies Allergy/AdvReac Type Severity Reaction Status Date / Time No Known Allergies Allergy Verified 07/20/20 15:05 Home Medications Medication Instructions Recorded Confirmed Last Taken Type Lispro Insulin [HumaLOG] 5 unit SQ AC #1 vial 04/17/20 09/22/20 09/05/20 17:00 Rx Apixaban [Eliquis] 5 mg PO BID 09/05/20 09/22/20 09/21/20 History Levemir Flextouch 10 units SQ PC 09/05/20 09/22/20 09/05/20 17:00 History Metoclopramide [Reglan TAB] 10 mg PO TID PRN 09/05/20 09/22/20 09/21/20 History Acetaminophen [Acetaminophen TAB] 650 mg PO Q4H PRN tablet 09/22/20 Unknown Rx Albuterol Sulfate [Albuterol 0.63% 0.63 mg IH BID PRN #60 vial 09/22/20 Unknown Rx NEBS] Insulin Lispro [Humalog] 5 unit SUB-Q AC vial 09/22/20 Unknown Rx Labetalol 300mg TAB 300 mg PO BID #60 tab 09/22/20 Unknown Rx Pantoprazole [Protonix TAB] 40 mg PO BID #60 tab 09/22/20 Unknown Rx cloNIDine [Catapres] 0.2 mg PO TID #180 tablet 09/22/20 Unknown Rx lisinopriL [Zestril TAB] 20 mg PO QHS #30 tablet 09/22/20 Unknown Rx oxyCODONE /ACETAMINOPHEN [Percocet 1 tab PO Q6H PRN tablet 09/22/20 Unknown Rx 5/325 mg] Active Meds: Active Medications Acetaminophen (Tylenol) 650 mg PO Q4H PRN PRN Reason: Pain MILD(1-3)/Fever >100.5/LANZA Albuterol (Proventil) 2.5 mg IH Q4HRT PRN PRN Reason: Shortness Of Breath Clonidine HCl (Catapres) 0.2 mg PO TID [facility] Last Admin: 09/22/20 08:00 Dose: 0.2 mg Documented by: Dextrose (D50w (25gm) Syringe) 50 ml IV Q30MIN [facility]; Protocol PRN Reason: Hypoglycemia Heparin Sodium (Porcine) (Heparin) 5,000 unit SUB-Q Q8HR [facility] Last Admin: 09/22/20 06:20 Dose: 5,000 unit Documented by: Hydralazine HCl (Apresoline) 10 mg IV Q4H PRN PRN Reason: Hypertension Cefepime HCl (Cefepime/Ns 1 Gm/100 Ml) 1 gm in 100 mls @ 200 mls/hr IV Q24HR [facility]; Protocol Last Admin: 09/22/20 10:26 Dose: 200 mls/hr Documented by: Insulin Human Lispro (Humalog) 0 unit SUB-Q ACHS [facility]; Protocol Last Admin: 09/22/20 07:30 Dose: 1 unit Documented by: Insulin Human Lispro (Humalog) 5 unit SUB-Q [facility] Last Admin: 09/22/20 07:30 Dose: 5 unit Documented by: Labetalol HCl (Labetalol) 300 mg PO BID [facility] Last Admin: 09/22/20 10:26 Dose: 300 mg Documented by: Lisinopril (Zestril) 20 mg PO QHS [facility] Last Admin: 09/21/20 22:50 Dose: 20 mg Documented by: Metronidazole (Flagyl) 500 mg PO Q8HR [facility]; Protocol Last Admin: 09/22/20 06:21 Dose: 500 mg Documented by: Naloxone HCl (Naloxone) 0.1 mg IV Q2MIN PRN PRN Reason: Res Rate </= 8 or 02 SAT < 92% Ondansetron HCl (Zofran) 4 mg IV Q8H PRN PRN Reason: Nausea And Vomiting Last Admin: 09/21/20 18:03 Dose: 4 mg Documented by: Oxycodone/Acetaminophen (Percocet 5/325) 1 tab PO Q6H PRN PRN Reason: Pain, Moderate (4-6) Pantoprazole Sodium (Protonix) 40 mg PO BIDAC [facility] Last Admin: 09/22/20 10:30 Dose: 40 mg Documented by: Sodium Chloride (Sodium Chloride Flush Syringe 10 Ml) 10 ml IV BID [facility] Last Admin: 09/22/20 10:30 Dose: 10 ml Documented by: Sodium Chloride (Sodium Chloride Flush Syringe 10 Ml) 10 ml IV PRN PRN PRN Reason: LINE FLUSH Sodium Polystyrene Sulfonate (Kionex) 30 gm PO ONCE [facility] Stop: 09/22/20 11:30 Last Admin: 09/22/20 10:31 Dose: 30 gm Documented by: Review of Systems All systems: negative Exam - Vital Signs Vital signs: Vital Signs Temp Pulse Resp BP Pulse Ox 98.2 F 114 H 16 209/128 100 09/21/20 02:09 09/21/20 02:09 09/21/20 02:09 09/21/20 02:09 09/21/20 02:09 - General Appearance General appearance: well-developed, well-nourished EENT: ATNC Neck: Present: neck supple Respiratory: Clear to Ascultation Heart: regular, S1S2 Gastrointestinal: Present: normal. Absent: tenderness, distended Neurologic: alert and oriented x3 Psychiatric: cooperative Results - Lab Results 09/22/20 04:43 09/22/20 04:43 Most recent lab results Calcium 9.2 mg/dL (8.4-10.2) 09/22/20 04:43
[2020-09-22] MEDS ORDERED: METOCLOPRAMIDE 10 MG TAB PO PRN (12:01)
[2020-09-22 17:03] VITALS: BP 170/95
[2020-09-22] MEDS ORDERED: APIXABAN 5 MG TAB PO SCH (22:00)
== END 2020-09-22 18:23 | disposition home or self-care (01) ==
LOC: ED 23:35 → 4A 09-21 07:22
PROVIDERS: ADMIT Internal Medicine; ATTEND Internal Medicine
DX: A41.9 Sepsis, unspecified organism (principal); I16.0 Hypertensive urgency; I13.2 Hypertensive heart and chronic kidney disease with heart failure and with stage 5 chronic kidney disease, or end stage renal disease; I50.9 Heart failure, unspecified; N18.6 End stage renal disease; K31.84 Gastroparesis; K92.0 Hematemesis; R10.9 Unspecified abdominal pain; J44.9 Chronic obstructive pulmonary disease, unspecified; D47.3 Essential (hemorrhagic) thrombocythemia; E87.5 Hyperkalemia; E11.22 Type 2 diabetes mellitus with diabetic chronic kidney disease; K20.90 Esophagitis, unspecified without bleeding; K21.9 Gastro-esophageal reflux disease without esophagitis; D63.1 Anemia in chronic kidney disease; Z99.2 Dependence on renal dialysis; Z91.14 Patient's other noncompliance with medication regimen; Z90.49 Acquired absence of other specified parts of digestive tract; Z98.890 Other specified postprocedural states; Z79.4 Long term (current) use of insulin
CPT/HCPCS: 36415; 74022; 74176; 80048; 80053; 80202; 82140; 82962; 83036; 85025; 85730; 87040; 93005; 96365; 96366; 96367; 96372; 96375; 96376; 99285; G0378; J0360; J0692; J1644; J2270; J2405; J2765; J3370; J7050

== ENCOUNTER 2020-09-28 16:15 | Emergency (ER) | payer MEDICARE ==
[2020-09-28] MEDS ORDERED: ONDANSETRON 4 MG/2 ML INJ IV ONE (17:02)
--- NOTE | 2020-09-28 17:15 | Emergency Department Report ---
HPI - General Chief Complaint: Nausea/Vomiting/Diarrhea Time Seen by Provider: 09/28/20 16:54 - HPI HPI: Room 24 The patient is a 34-year-old male present with a chief complaint of vomiting. The patient presents to the ED holding an emesis bag but does not answer questions. Chart review reveals patient has been a poor historian in the past not offering any information. The patient does not answer any questions for me but makes eye contact. Patient is found to be hypertensive ED Past Medical Hx - Past Medical History Hx Hypertension: Yes Hx Heart Attack/AMI: Yes (-NON STEMI ELEVATED SC) Hx Congestive Heart Failure: Yes Hx Diabetes: Yes (TYPE 11) Hx GERD: Yes Hx Arthritis: Yes (BINTA. HANDS) Hx Asthma: Yes Hx COPD: Yes Additional medical history: Ulcerative esophagitis, Gastroparesis HD MWF - Surgical History Hx Cholecystectomy: Yes Hx Appendectomy: Yes Additional Surgical History: right great toe removed, Right chest PERMA-CATH - Family History Family history: no significant - Social History Smoking Status: Unknown if ever smoked - Medications Home Medications: Home Medications Medication Instructions Recorded Confirmed Last Taken Type Lispro Insulin [HumaLOG] 5 unit SQ AC #1 vial 04/17/20 09/22/20 09/05/20 17:00 Rx Apixaban [Eliquis] 5 mg PO BID 09/05/20 09/22/20 09/21/20 History Levemir Flextouch 10 units SQ PC 09/05/20 09/22/20 09/05/20 17:00 History Metoclopramide [Reglan TAB] 10 mg PO TID PRN 09/05/20 09/22/20 09/21/20 History Acetaminophen [Acetaminophen TAB] 650 mg PO Q4H PRN tablet 09/22/20 Unknown Rx Albuterol Sulfate [Albuterol 0.63% 0.63 mg IH BID PRN #60 vial 09/22/20 Unknown Rx NEBS] Insulin Lispro [Humalog] 5 unit SUB-Q AC vial 09/22/20 Unknown Rx Labetalol 300mg TAB 300 mg PO BID #60 tab 09/22/20 Unknown Rx Pantoprazole [Protonix TAB] 40 mg PO BID #60 tab 09/22/20 Unknown Rx cloNIDine [Catapres] 0.2 mg PO TID #180 tablet 09/22/20 Unknown Rx lisinopriL [Zestril TAB] 20 mg PO QHS #30 tablet 09/22/20 Unknown Rx oxyCODONE /ACETAMINOPHEN [Percocet 1 tab PO Q6H PRN tablet 09/22/20 Unknown Rx 5/325 mg] Ondansetron [Zofran ODT TAB] 8 mg PO Q8HR #20 tab.rapdis 09/28/20 Unknown Rx ED Review of Systems ROS: Stated complaint: COUGH/VOMIT BLOOD Other details as noted in HPI Comment: Unobtainable due to pts medical conditions (Patient not answering questions) Physical Exam - Physical Exam Vital Signs: Vital Signs 09/28/20 16:49 Pulse Rate 115 H Respiratory 20 Rate Blood Pressure 230/130 [Right] O2 Sat by Pulse 98 Oximetry Physical Exam: GENERAL: The patient is well-developed well-nourished male lying on stretcher not appearing to be in acute distress. [] HEENT: Normocephalic. Atraumatic. Extraocular motions are intact. Patient has moist mucous membranes. NECK: Supple. Trachea midline CHEST/LUNGS: Clear to auscultation. There is no respiratory distress noted. HEART/CARDIOVASCULAR: Regular. There is tachycardia. There is no gallop rub or murmur. ABDOMEN: Abdomen is soft, nontender. Patient has normal bowel sounds. There is no abdominal distention. SKIN: There is no rash. There is no edema. There is diaphoresis. NEURO: The patient is awake and alert but does not answer questions. The patient is not cooperative with history or neurologic exam. MUSCULOSKELETAL: There is no evidence of acute injury. ED Course Vital Signs 09/28/20 16:49 Pulse Rate 115 H Respiratory 20 Rate Blood Pressure 230/130 [Right] O2 Sat by Pulse 98 Oximetry - Reevaluation(s) Reevaluation #1: 09/28/20 18:48 I asked the patient if he changes mind about offering a history as to why he came to the emergency department. The patient replies "mmmmhhmmmm" but offers no more information ED Medical Decision Making - Lab Data Result diagrams: 09/28/20 17:06 09/28/20 17:06 Laboratory Tests 09/28/20 09/28/20 09/28/20 17:01 17:06 17:06 WBC 10.8 RBC 4.46 Hgb 11.9 Hct 37.5 MCV 84 MCH 27 L MCHC 32 RDW 23.2 H Plt Count 314 Lymph % (Auto) Aviation Project Engineer [place] % (Auto) Aviation Project Engineer Eos % (Auto) Aviation Project Engineer Baso % (Auto) Aviation Project Engineer Lymph # (Auto) Aviation Project Engineer [place] # (Auto) Aviation Project Engineer Eos # (Auto) Aviation Project Engineer Baso # (Auto) Aviation Project Engineer Seg Neutrophils % Aviation Project Engineer Seg Neutrophils # Aviation Project Engineer PT 15.0 H INR 1.17 H APTT 34.2 Sodium Potassium Chloride Carbon Dioxide Anion Gap BUN Creatinine Estimated GFR BUN/Creatinine Ratio Glucose Calcium Total Bilirubin AST ALT Alkaline Phosphatase Total Protein Albumin Albumin/Globulin Ratio Lipase Blood Type O POSITIVE Antibody Screen Negative 09/28/20 17:06 WBC RBC Hgb Hct MCV MCH MCHC RDW Plt Count Lymph % (Auto) [place] % (Auto) Eos % (Auto) Baso % (Auto) Lymph # (Auto) [place] # (Auto) Eos # (Auto) Baso # (Auto) Seg Neutrophils % Seg Neutrophils # PT INR APTT Sodium 140 Potassium 5.2 H Chloride 97.9 L Carbon Dioxide 19 L Anion Gap 28 BUN 63 H Creatinine 13.5 H Estimated GFR 5 BUN/Creatinine Ratio 5 Glucose 177 H Calcium 8.8 Total Bilirubin 0.60 AST 19 ALT 8 Alkaline Phosphatase 135 H Total Protein 7.5 Albumin 3.7 L Albumin/Globulin Ratio 1.0 Lipase 28 Blood Type Antibody Screen - Radiology Data Radiology results: report reviewed (CT head ), image reviewed (CT head) [place] [address] Cat Scan Report Signed Patient: GAY OSWALD MR #: [id number] : 1985 Acct:[id number] Age/Sex: 34 / M ADM Date: 09/28/20 Loc: ED Attending Dr: Ordering Physician: BERNARDA YO MD Date of Service: 09/28/20 Procedure(s): CT head/brain wo con Accession Number(s): [id number] cc: BERNARDA YO MD CT head/brain wo con INDICATION / CLINICAL INFORMATION: 34 years Male; Hypertension, vomiting. TECHNIQUE: Routine CT head without contrast. All CT scans at this location are performed using CT dose reduction for ALARA by means of automated exposure control. COMPARISON: 01/25/2020 FINDINGS: BRAIN / INTRACRANIAL CONTENTS: No acute hemorrhage, mass effect, midline shift, hydrocephalus, or acute, large territorial infarct. No signs of significant atrophy or chronic infarct. There may be minimal, nonspecific white matter disease. CRANIOCERVICAL JUNCTION: No significant abnormality. ORBITS: No significant abnormality of visualized orbits. SINUSES / MASTOIDS: Minimal opacification of the mid ethmoids on the left. ADDITIONAL FINDINGS: None. IMPRESSION: 1. No focal mass, hemorrhage, hydrocephalus, or acute, large territorial infarct. Signer Name: Chino Santiago MD, III Signed: 09/28/2020 5:47 PM Workstation Name: [email or web address] Transcribed By: HR Dictated By: Chino Snatiago MD Electronically Authenticated By: Chino Santiago MD Signed Date/Time: 09/28/201746 DD/ 45 TD/TT: - Differential Diagnosis Hypertensive urgency, hypertensive emergency, uncontrolled hypertension, ga Critical care attestation.: If time is entered above; I have spent that time in minutes in the direct care of this critically ill patient, excluding procedure time. ED Disposition Clinical Impression: Hypertensive urgency, End stage renal disease, Nausea & vomiting Disposition: DC-01 TO HOME OR SELFCARE Is pt being admited?: No Does the pt Need Aspirin: No Condition: Stable Additional Instructions: Return to the emergency department should you develop worsening symptoms, inability to tolerate food or liquids, high fever or any other concerns Prescriptions: Ondansetron [Zofran ODT TAB] 8 mg PO Q8HR #20 tab.elijah Referrals: PRIMARY CAREMD [Primary Care Provider] - 3-5 Days Time of Disposition: 20:58
[2020-09-28 17:45] LABS: Hematocrit 37.5 % (35.5-45.6); Hemoglobin 11.9 gm/dl (11.8-15.2); Mean Corpuscular HGB Conc 32 % (32-34); Mean Corpuscular Volume 84 fl (84-94); Platelet Count 314 K/mm3 (140-440); Red Blood Count 4.46 M/mm3 (3.65-5.03); Red Cell Distribution Width 23.2 % (13.2-15.2)
[2020-09-28 17:47] LABS: INR 1.17 (0.87-1.13); Partial Thromboplastin Time 34.2 Sec. (24.2-36.6)
--- NOTE | 2020-09-28 17:48 | Cat Scan Report ---
CT head/brain wo con INDICATION / CLINICAL INFORMATION: 34 years Male; Hypertension, vomiting. TECHNIQUE: Routine CT head without contrast. All CT scans at this location are performed using CT dos e reduction for ALARA by means of automated exposure control. COMPARISON: 01/25/2020 FINDINGS: BRAIN / INTRACRANIAL CONTENTS: No acute hemorrhage, mass effect, midline shift, hydrocephalus, or acu te, large territorial infarct. No signs of significant atrophy or chronic infarct. There may be minim al, nonspecific white matter disease. CRANIOCERVICAL JUNCTION: No significant abnormality. ORBITS: No significant abnormality of visualized orbits. SINUSES / MASTOIDS: Minimal opacification of the mid ethmoids on the left. ADDITIONAL FINDINGS: None. IMPRESSION: 1. No focal mass, hemorrhage, hydrocephalus, or acute, large territorial infarct. Signer Name: Chino Santiago MD, III Signed: 09/28/2020 5:47 PM Workstation Name: [id number]
[2020-09-28 17:52] LABS: Albumin 3.7 g/dL (3.9-5); Calcium 8.8 mg/dL (8.4-10.2)
[2020-09-28] MEDS ORDERED: SODIUM POLYSTYRENE 15 GM/60 ML ORAL LIQD PO ONE (19:13)
[2020-09-28 20:51] VITALS: BP 185/110
[2020-09-28] MEDS ORDERED: cloNIDine 0.1 MG TAB PO ONE (20:52)
== END 2020-09-28 21:32 | disposition home or self-care (01) ==
LOC: ED 16:15
DX: I16.0 Hypertensive urgency (principal); I13.2 Hypertensive heart and chronic kidney disease with heart failure and with stage 5 chronic kidney disease, or end stage renal disease; E11.22 Type 2 diabetes mellitus with diabetic chronic kidney disease; N18.6 End stage renal disease; I50.9 Heart failure, unspecified; K21.9 Gastro-esophageal reflux disease without esophagitis; M19.90 Unspecified osteoarthritis, unspecified site; J44.9 Chronic obstructive pulmonary disease, unspecified; Z90.49 Acquired absence of other specified parts of digestive tract; Z79.899 Other long term (current) drug therapy
CPT/HCPCS: 36415; 70450; 80053; 83690; 85025; 85610; 85730; 86850; 86900; 86901; 96374; 96375; 99284; J2405

== ENCOUNTER 2020-10-05 15:22 | Emergency (ER) | payer MEDICARE ==
[2020-10-05] MEDS ORDERED: ONDANSETRON 4 MG/2 ML INJ IV ONE (16:10)
--- NOTE | 2020-10-05 16:13 | XRay Report ---
CHEST 1 VIEW 10/05/2020 4:06 PM INDICATION / CLINICAL INFORMATION: Dyspnea. COMPARISON: Chest x-ray on 09/21/2020 FINDINGS: SUPPORT DEVICES: Left IJ central venous catheter appears in unchanged appropriate position. HEART / MEDIASTINUM: Stable borderline cardiomegaly. LUNGS / PLEURA: Stable mild pulmonary vascular congestion. No pneumothorax. ADDITIONAL FINDINGS: No significant additional findings. IMPRESSION: 1. Stable mild pulmonary vascular congestion compared with 09/21/2020. Signer Name: Alex Hernandez MD Signed: 10/05/2020 4:08 PM Workstation Name: [id number]
[2020-10-05 16:31] LABS: Basophils # (Auto) 0.1 K/mm3 (0.0-0.1); Basophils % (Auto) 1.3 % (0.0-1.8); Eosinophils # (Auto) 0.3 K/mm3 (0.0-0.4); Eosinophils % (Auto) 4.9 % (0.0-4.3); Hemoglobin 11.5 gm/dl (11.8-15.2); Lymphocytes # (Auto) 1.1 K/mm3 (1.2-5.4); Lymphocytes % (Auto) 16.6 % (13.4-35.0); Mean Corpuscular HGB Conc 31 % (32-34); Mean Corpuscular Volume 88 fl (84-94); Monocytes # (Auto) 0.5 K/mm3 (0.0-0.8); Monocytes % (Auto) 7.7 % (0.0-7.3); Platelet Count 267 K/mm3 (140-440); Red Blood Count 4.19 M/mm3 (3.65-5.03)
[2020-10-05 16:38] LABS: INR 1.06 (0.87-1.13)
[2020-10-05 16:39] LABS: Partial Thromboplastin Time 36.3 Sec. (24.2-36.6)
[2020-10-05 16:42] LABS: Red Cell Distribution Width 24.1 % (13.2-15.2)
--- NOTE | 2020-10-05 16:44 | Emergency Department Report ---
ED General Adult HPI - General Chief complaint: High BP Stated complaint: HYPERTENSION/VOMIT Time Seen by Provider: 10/05/20 15:51 Source: EMS Mode of arrival: Stretcher Limitations: No Limitations - History of Present Illness Initial comments: Patient is 34 years old male with history of end-stage renal disease on hemodialysis. Patient presented to the ER from his dialysis center after patient reported for his regular dialysis. Patient found to be hypertensive with a blood pressure of 234/135. Patient also complaining of nausea and vomiting. Patient stated that last dialysis was 2 days ago. Patient denied any headache, neck pain, chest pain or shortness of breath. Patient given labetalol 20 mg IV stat. Rest of vital signs stable including oxygen saturation of 100% on room air. - Related Data Home Medications Medication Instructions Recorded Confirmed Last Taken Apixaban [Eliquis] 5 mg PO BID 09/05/20 09/22/20 09/21/20 Levemir Flextouch 10 units SQ PC 09/05/20 09/22/20 09/05/20 17:00 Metoclopramide [Reglan TAB] 10 mg PO TID PRN 09/05/20 09/22/20 09/21/20 Previous Rx's Medication Instructions Recorded Last Taken Type Lispro Insulin [HumaLOG] 5 unit SQ AC #1 vial 04/17/20 09/05/20 17:00 Rx Acetaminophen [Acetaminophen TAB] 650 mg PO Q4H PRN tablet 09/22/20 Unknown Rx Albuterol Sulfate [Albuterol 0.63% 0.63 mg IH BID PRN #60 vial 09/22/20 Unknown Rx NEBS] Insulin Lispro [Humalog] 5 unit SUB-Q AC vial 09/22/20 Unknown Rx Labetalol 300mg TAB 300 mg PO BID #60 tab 09/22/20 Unknown Rx Pantoprazole [Protonix TAB] 40 mg PO BID #60 tab 09/22/20 Unknown Rx cloNIDine [Catapres] 0.2 mg PO TID #180 tablet 09/22/20 Unknown Rx lisinopriL [Zestril TAB] 20 mg PO QHS #30 tablet 09/22/20 Unknown Rx oxyCODONE /ACETAMINOPHEN [Percocet 1 tab PO Q6H PRN tablet 09/22/20 Unknown Rx 5/325 mg] Ondansetron [Zofran ODT TAB] 8 mg PO Q8HR #20 tab.rapdis 09/28/20 Unknown Rx Ondansetron [Zofran Odt] 4 mg PO Q8HR PRN #14 tab.rapdis 10/05/20 Unknown Rx Allergies Allergy/AdvReac Type Severity Reaction Status Date / Time No Known Allergies Allergy Verified 07/20/20 15:05 ED Review of Systems ROS: Stated complaint: HYPERTENSION/VOMIT Other details as noted in HPI Comment: All other systems reviewed and negative Constitutional: denies: chills, fever Respiratory: denies: cough, shortness of breath, SOB with exertion, SOB at rest Cardiovascular: denies: chest pain, palpitations Gastrointestinal: nausea, vomiting. denies: abdominal pain, diarrhea, constipation, hematemesis, melena, hematochezia Musculoskeletal: denies: back pain Neurological: denies: headache, weakness, numbness, paresthesias, confusion, abnormal gait ED Past Medical Hx - Past Medical History Hx Hypertension: Yes Hx Heart Attack/AMI: Yes (-NON STEMI ELEVATED RI) Hx Congestive Heart Failure: Yes Hx Diabetes: Yes (TYPE 11) Hx Deep Vein Thrombosis: No Hx Pulmonary Embolism: No Hx GERD: Yes Hx Liver Disease: No Hx Renal Disease: No Hx Sickle Cell Disease: No Hx Arthritis: Yes (BINTA. HANDS) Hx Headaches / Migraines: No Hx Seizures: No Hx Kidney Stones: No Hx Asthma: Yes Hx COPD: Yes Hx Tuberculosis: No Hx HIV: No Additional medical history: Ulcerative esophagitis, Gastroparesis HD MWF - Surgical History Hx Coronary Stent: No Hx Pacemaker: No Hx Internal Defibrillator: No Hx Cholecystectomy: Yes Hx Appendectomy: Yes Additional Surgical History: right great toe removed, Right chest PERMA-CATH - Social History Smoking Status: Never Smoker Substance Use Type: None - Medications Home Medications: Home Medications Medication Instructions Recorded Confirmed Last Taken Type Lispro Insulin [HumaLOG] 5 unit SQ AC #1 vial 04/17/20 09/22/20 09/05/20 17:00 Rx Apixaban [Eliquis] 5 mg PO BID 09/05/20 09/22/20 09/21/20 History Levemir Flextouch 10 units SQ PC 09/05/20 09/22/20 09/05/20 17:00 History Metoclopramide [Reglan TAB] 10 mg PO TID PRN 09/05/20 09/22/20 09/21/20 History Acetaminophen [Acetaminophen TAB] 650 mg PO Q4H PRN tablet 09/22/20 Unknown Rx Albuterol Sulfate [Albuterol 0.63% 0.63 mg IH BID PRN #60 vial 09/22/20 Unknown Rx NEBS] Insulin Lispro [Humalog] 5 unit SUB-Q AC vial 09/22/20 Unknown Rx Labetalol 300mg TAB 300 mg PO BID #60 tab 09/22/20 Unknown Rx Pantoprazole [Protonix TAB] 40 mg PO BID #60 tab 09/22/20 Unknown Rx cloNIDine [Catapres] 0.2 mg PO TID #180 tablet 09/22/20 Unknown Rx lisinopriL [Zestril TAB] 20 mg PO QHS #30 tablet 09/22/20 Unknown Rx oxyCODONE /ACETAMINOPHEN [Percocet 1 tab PO Q6H PRN tablet 09/22/20 Unknown Rx 5/325 mg] Ondansetron [Zofran ODT TAB] 8 mg PO Q8HR #20 tab.rapdis 09/28/20 Unknown Rx Ondansetron [Zofran Odt] 4 mg PO Q8HR PRN #14 tab.rapdis 10/05/20 Unknown Rx ED Physical Exam - General Limitations: No Limitations General appearance: alert, in no apparent distress - Head Head exam: Present: atraumatic, normocephalic, normal inspection - Eye Eye exam: Present: normal appearance, PERRL - ENT ENT exam: Present: normal exam, normal orophraynx, mucous membranes moist - Neck Neck exam: Present: normal inspection, full ROM. Absent: tenderness, men ingismus - Respiratory Respiratory exam: Present: normal lung sounds bilaterally - Cardiovascular Cardiovascular Exam: Present: regular rate, normal rhythm, normal heart sounds - GI/Abdominal GI/Abdominal exam: Present: soft, normal bowel sounds. Absent: distended, tenderness, guarding, rebound, rigid, organomegaly, mass, bruit, pulsatile mass, hernia - Extremities Exam Extremities exam: Present: normal inspection, full ROM, normal capillary refill. Absent: pedal edema, calf tenderness - Back Exam Back exam: Present: normal inspection, full ROM. Absent: CVA tenderness (R), CVA tenderness (L) - Neurological Exam Neurological exam: Present: alert, oriented X3, CN II-XII intact - Psychiatric Psychiatric exam: Present: normal mood - Skin Skin exam: Present: warm, intact, normal color ED Course Vital Signs 10/05/20 10/05/20 10/05/20 15:45 16:01 16:31 Temperature 97.9 F Pulse Rate 109 H 108 H 98 H Respiratory 22 26 H Rate Blood Pressure 234/135 240/133 242/141 O2 Sat by Pulse 97 99 100 Oximetry 10/05/20 10/05/20 10/05/20 17:15 17:31 17:45 Temperature Pulse Rate 85 85 Respiratory Rate Blood Pressure 203/109 182/101 177/100 O2 Sat by Pulse 98 98 99 Oximetry 10/05/20 10/05/20 10/05/20 18:01 18:15 18:45 Temperature Pulse Rate 90 92 H 91 H Respiratory Rate Blood Pressure 177/100 189/103 184/101 O2 Sat by Pulse 99 100 98 Oximetry 10/05/20 10/05/20 19:01 19:30 Temperature Pulse Rate 88 Respiratory Rate Blood Pressure 195/107 172/94 O2 Sat by Pulse 97 Oximetry ED Medical Decision Making - Lab Data Result diagrams: 10/05/20 16:04 10/05/20 16:04 - Radiology Data Radiology results: report reviewed - Medical Decision Making Patient is 34 years old male with history of end-stage renal disease on hemodialysis. Patient presented to the ER from his dialysis center after patient reported for his regular dialysis. Patient found to be hypertensive with a blood pressure of 234/135. Patient also complaining of nausea and vomiting. Patient stated that last dialysis was 2 days ago. Patient denied any headache, neck pain, chest pain or shortness of breath. Patient given labetalol 20 mg IV stat. Rest of vital signs stable including oxygen saturation of 100% on room air. Patient received clonidine and his blood pressure significantly improved. Patient received Zofran for nausea and vomiting and no vomiting observed in the ER. Patient potassium is 4.8. Patient is due for dialysis tomorrow. No indication for admission since patient responded very well to the antihypertensive medication. Patient advised to return to the ER if he develop any new symptoms. Critical care attestation.: If time is entered above; I have spent that time in minutes in the direct care of this critically ill patient, excluding procedure time. ED Disposition Clinical Impression: Hypertensive urgency, Nausea and vomiting Disposition: DC-01 TO HOME OR SELFCARE Is pt being admited?: No Condition: Stable Instructions: Nausea and Vomiting, Adult, Urnw-ml-Bpak Prescriptions: Ondansetron [Zofran Odt] 4 mg PO Q8HR PRN #14 tab.rapdis PRN Reason: Nausea And Vomiting Referrals: PRIMARY CARE,MD [Primary Care Provider] - 3-5 Days
[2020-10-05 17:38] LABS: Calcium 9.4 mg/dL (8.4-10.2)
[2020-10-05] MEDS ORDERED: cloNIDine 0.1 MG TAB PO ONE ×2 (17:59→19:19)
[2020-10-05 19:56] VITALS: BP 172/94
== END 2020-10-05 19:40 | disposition home or self-care (01) ==
LOC: ED 15:22
DX: I10 Essential (primary) hypertension (principal); R11.2 Nausea with vomiting, unspecified; I11.0 Hypertensive heart disease with heart failure; I50.9 Heart failure, unspecified; E11.9 Type 2 diabetes mellitus without complications; J44.9 Chronic obstructive pulmonary disease, unspecified
CPT/HCPCS: 36415; 71045; 80048; 85025; 85610; 85730; 93005; 96374; 96375; 99284; J2405

== ENCOUNTER 2020-10-18 14:35 | Inpatient (IN) | payer MEDICARE ==
[2020-10-18] MEDS ORDERED: ASPIRIN 325 MG TAB PO ONE (15:52)
[2020-10-18 16:33] LABS: Basophils # (Auto) 0.2 K/mm3 (0.0-0.1); Basophils % (Auto) 2.4 % (0.0-1.8); Eosinophils # (Auto) 0.2 K/mm3 (0.0-0.4); Eosinophils % (Auto) 3.1 % (0.0-4.3); Hematocrit 39.2 % (35.5-45.6); Hemoglobin 12.4 gm/dl (11.8-15.2); Lymphocytes # (Auto) 1.1 K/mm3 (1.2-5.4); Lymphocytes % (Auto) 16.4 % (13.4-35.0); Mean Corpuscular HGB Conc 32 % (32-34); Mean Corpuscular Volume 89 fl (84-94); Monocytes # (Auto) 0.5 K/mm3 (0.0-0.8); Monocytes % (Auto) 7.1 % (0.0-7.3); Platelet Count 392 K/mm3 (140-440); Red Blood Count 4.39 M/mm3 (3.65-5.03)
[2020-10-18 16:34] LABS: Red Cell Distribution Width 20.3 % (13.2-15.2)
[2020-10-18 16:50] LABS: Calcium 9.8 mg/dL (8.4-10.2)
[2020-10-18 17:09] LABS: Chol/HDL Ratio 2.42 %
[2020-10-18] MEDS ORDERED: DEXTROSE 50% IN WATER (25GM) 50 ML SYRINGE IV ONE (18:31)
[2020-10-18] MEDS ORDERED: INSULIN REGULAR, HUMAN 100 UNIT/ML 3ML VIAL IV ONE (18:31)
[2020-10-18] MEDS ORDERED: CALCIUM CHLORIDE 1,000 MG in SODIUM CHLORIDE 0.9% 100 ML IV ONE (18:31)
[2020-10-18] MEDS ORDERED: hydrALAZINE 20 MG/1 ML INJ IV ONE (18:32)
[2020-10-18] MEDS ORDERED: ONDANSETRON 4 MG/2 ML INJ IV ONE (18:34)
--- NOTE | 2020-10-18 18:37 | Emergency Department Report ---
ED General Adult HPI - General Chief complaint: Chest Pain Stated complaint: HYPERTENSION Time Seen by Provider: 10/18/20 18:31 Source: patient Mode of arrival: Wheelchair Limitations: No Limitations - History of Present Illness Initial comments: Patient is 34 years old male with history of end-stage renal disease on hemodialysis. Also history of hypertension. Patient presented to the ER complaining of nausea vomiting and chest pain started today. Patient stated that he did not go for his dialysis today because he told him that when he is vomiting he does not need to come to dialysis. Patient also complaining of shortness of breath however he denied any fever or chills. Patient found to have a potassium of 6. Patient immediately given calcium chloride, dextrose 50 and insulin 5. Stat consult order for nephrology for emergency dialysis. - Related Data Home Medications Medication Instructions Recorded Confirmed Last Taken Apixaban [Eliquis] 5 mg PO BID 09/05/20 09/22/20 09/21/20 Levemir Flextouch 10 units SQ PC 09/05/20 09/22/20 09/05/20 17:00 Metoclopramide [Reglan TAB] 10 mg PO TID PRN 09/05/20 09/22/20 09/21/20 Previous Rx's Medication Instructions Recorded Last Taken Type Lispro Insulin [HumaLOG] 5 unit SQ AC #1 vial 04/17/20 09/05/20 17:00 Rx Acetaminophen [Acetaminophen TAB] 650 mg PO Q4H PRN tablet 09/22/20 Unknown Rx Albuterol Sulfate [Albuterol 0.63% 0.63 mg IH BID PRN #60 vial 09/22/20 Unknown Rx NEBS] Insulin Lispro [Humalog] 5 unit SUB-Q AC vial 09/22/20 Unknown Rx Labetalol 300mg TAB 300 mg PO BID #60 tab 09/22/20 Unknown Rx Pantoprazole [Protonix TAB] 40 mg PO BID #60 tab 09/22/20 Unknown Rx cloNIDine [Catapres] 0.2 mg PO TID #180 tablet 09/22/20 Unknown Rx lisinopriL [Zestril TAB] 20 mg PO QHS #30 tablet 09/22/20 Unknown Rx oxyCODONE /ACETAMINOPHEN [Percocet 1 tab PO Q6H PRN tablet 09/22/20 Unknown Rx 5/325 mg] Ondansetron [Zofran ODT TAB] 8 mg PO Q8HR #20 tab.rapdis 09/28/20 Unknown Rx Ondansetron [Zofran Odt] 4 mg PO Q8HR PRN #14 tab.rapdis 10/05/20 Unknown Rx Allergies Allergy/AdvReac Type Severity Reaction Status Date / Time No Known Allergies Allergy Verified 07/20/20 15:05 ED Review of Systems ROS: Stated complaint: HYPERTENSION Other details as noted in HPI Comment: All other systems reviewed and negative Constitutional: denies: chills, fever Respiratory: shortness of breath. denies: cough, SOB with exertion, SOB at res t, wheezing Cardiovascular: chest pain Gastrointestinal: nausea, vomiting. denies: abdominal pain, diarrhea, constipation, hematemesis Musculoskeletal: denies: back pain Neurological: denies: headache, weakness, numbness, paresthesias, confusion, abnormal gait ED Past Medical Hx - Past Medical History Previous Medical History?: Yes Hx Hypertension: Yes Hx Heart Attack/AMI: Yes (-NON STEMI ELEVATED NM) Hx Congestive Heart Failure: Yes Hx Diabetes: Yes (TYPE 11) Hx Deep Vein Thrombosis: No Hx Pulmonary Embolism: No Hx GERD: Yes Hx Liver Disease: No Hx Renal Disease: No Hx Sickle Cell Disease: No Hx Arthritis: Yes (BINTA. HANDS) Hx Headaches / Migraines: No Hx Seizures: No Hx Kidney Stones: No Hx Asthma: Yes Hx COPD: Yes Hx Tuberculosis: No Hx HIV: No Additional medical history: Ulcerative esophagitis, Gastroparesis HD MWF - Surgical History Past Surgical History?: Yes Hx Coronary Stent: No Hx Pacemaker: No Hx Internal Defibrillator: No Hx Cholecystectomy: Yes Hx Appendectomy: Yes Additional Surgical History: right great toe removed, Right chest PERMA-CATH - Social History Smoking Status: Never Smoker Substance Use Type: None - Medications Home Medications: Home Medications Medication Instructions Recorded Confirmed Last Taken Type Lispro Insulin [HumaLOG] 5 unit SQ AC #1 vial 04/17/20 09/22/20 09/05/20 17:00 Rx Apixaban [Eliquis] 5 mg PO BID 09/05/20 09/22/20 09/21/20 History Levemir Flextouch 10 units SQ PC 09/05/20 09/22/20 09/05/20 17:00 History Metoclopramide [Reglan TAB] 10 mg PO TID PRN 09/05/20 09/22/20 09/21/20 History Acetaminophen [Acetaminophen TAB] 650 mg PO Q4H PRN tablet 09/22/20 Unknown Rx Albuterol Sulfate [Albuterol 0.63% 0.63 mg IH BID PRN #60 vial 09/22/20 Unknown Rx NEBS] Insulin Lispro [Humalog] 5 unit SUB-Q AC vial 09/22/20 Unknown Rx Labetalol 300mg TAB 300 mg PO BID #60 tab 09/22/20 Unknown Rx Pantoprazole [Protonix TAB] 40 mg PO BID #60 tab 09/22/20 Unknown Rx cloNIDine [Catapres] 0.2 mg PO TID #180 tablet 09/22/20 Unknown Rx lisinopriL [Zestril TAB] 20 mg PO QHS #30 tablet 09/22/20 Unknown Rx oxyCODONE /ACETAMINOPHEN [Percocet 1 tab PO Q6H PRN tablet 09/22/20 Unknown Rx 5/325 mg] Ondansetron [Zofran ODT TAB] 8 mg PO Q8HR #20 tab.rapdis 09/28/20 Unknown Rx Ondansetron [Zofran Odt] 4 mg PO Q8HR PRN #14 tab.rapdis 10/05/20 Unknown Rx ED Physical Exam - General Limitations: No Limitations General appearance: alert, in no apparent distress - Head Head exam: Present: atraumatic, normocephalic, normal inspection - Eye Eye exam: Present: normal appearance, PERRL - ENT ENT exam: Present: normal exam, normal orophraynx, mucous membranes moist - Neck Neck exam: Present: normal inspection, full ROM. Absent: tenderness, meningismus - Respiratory Respiratory exam: Present: normal lung sounds bilaterally - Cardiovascular Cardiovascular Exam: Present: regular rate, normal rhythm, normal heart sounds - GI/Abdominal GI/Abdominal exam: Present: soft, normal bowel sounds. Absent: distended, tenderness, guarding, rebound, rigid, organomegaly, mass, bruit, pulsatile mass, hernia - Back Exam Back exam: Present: normal inspection, full ROM. Absent: CVA tenderness (R), CVA tenderness (L) - Neurological Exam Neurological exam: Present: alert, oriented X3, CN II-XII intact, normal gait, reflexes normal. Absent: motor sensory deficit - Psychiatric Psychiatric exam: Present: normal mood - Skin Skin exam: Present: warm, intact, normal color ED Course Vital Signs 10/18/20 10/18/20 10/18/20 15:45 20:10 20:15 Temperature 98.3 F Pulse Rate 103 H 100 H 97 H Respiratory 20 13 Rate Blood Pressure 210/131 O2 Sat by Pulse 100 100 Oximetry 10/18/20 10/18/20 10/18/20 20:16 20:30 20:45 Temperature Pulse Rate 99 H 98 H 96 H Respiratory 19 12 16 Rate Blood Pressure 196/107 196/107 O2 Sat by Pulse 99 100 100 Oximetry 10/18/20 10/18/20 10/18/20 21:01 21:15 21:31 Temperature Pulse Rate 93 H 96 H 96 H Respiratory 23 20 18 Rate Blood Pressure 196/107 197/110 197/110 O2 Sat by Pulse 100 100 99 Oximetry 10/18/20 21:45 Temperature Pulse Rate 96 H Respiratory 22 Rate Blood Pressure 166/105 O2 Sat by Pulse 99 Oximetry - EJ/Peripheral Line Neck R Time Out Performed: Yes Indications: nurses unable to establis Skin Cleansed in Sterile Fashion: Yes Size: 20 Dressing Placed: Tegaderm, tape Patient Tolerated Procedure: well, no complications ED Medical Decision Making - Lab Data Result diagrams: 10/18/20 16:09 10/18/20 16:09 - EKG Data -: EKG Interpreted by Me EKG shows normal: sinus rhythm Rate: normal - EKG Data Interpretation: no acute changes - Radiology Data Radiology results: report reviewed - Medical Decision Making Patient is 34 years old male with history of end-stage renal disease on hemodialysis. Also history of hypertension. Patient presented to the ER complaining of nausea vomiting and chest pain started today. Patient stated that he did not go for his dialysis today because he told him that when he is vomiting he does not need to come to dialysis. Patient also complaining of shortness of breath however he denied any fever or chills. Patient found to have a potassium of 6. Patient immediately given calcium chloride, dextrose 50 and insulin 5. Stat consult order for nephrology for emergency dialysis. I discussed the patient with Dr. Mendosa, senior lead project manager donor relations associate for the patient. He advised to give patient Kayexalate 60 mg p.o. and start patient on Cardene drip and if the patient respond to this medication she will postpone the dialysis until the morning. Patient refused Kayexalate. Per patient nurse report that patient is next for dialysis tonight. I discussed the patient with Dr. Dove, he agreed to admit the patient to medical service. Critical Care Time: Yes Critical care time in (mins) excluding proc time.: 30 Critical care attestation.: If time is entered above; I have spent that time in minutes in the direct care of this critically ill patient, excluding procedure time. ED Disposition Clinical Impression: Acute hyperkalemia, End-stage renal disease needing dialysis, Hypertensive emergency Disposition: DC-09 OP ADMIT IP TO THIS HOSP Is pt being admited?: Yes Condition: Stable
[2020-10-18] MEDS ORDERED: niCARdipine DRIP 40 MG/200 ML BAG IV ONE (19:23)
--- NOTE | 2020-10-18 19:40 | XRay Report ---
XR chest 1V ap INDICATION / CLINICAL INFORMATION: Chest Pain. COMPARISON: 10/05/2020 FINDINGS: SUPPORT DEVICES: Left IJ central venous catheter is stable. HEART /PULMONARY VASCULATURE: Cardiac enlargement with pulmonary vasculature congestion. LUNGS / PLEURA: Increased perihilar and bibasilar opacities, most likely reflecting edema. No sizable pleural effusion. No pneumothorax. ADDITIONAL FINDINGS: No significant additional findings. IMPRESSION: CHF/volume overload with increasing pulmonary edema. Signer Name: Elijah Guillaume MD Signed: 10/18/2020 7:35 PM Workstation Name: [id number]
[2020-10-18] MEDS ORDERED: SODIUM CHLORIDE 0.9% 100 ML IV PRN (19:41)
[2020-10-18] MEDS ORDERED: ASPIRIN 325 MG TAB ONE (19:51)
[2020-10-18] MEDS: SODIUM POLYSTYRENE 15 GM/60 ML ORAL LIQD PO ONE ×2 (19:59→21:23)
[2020-10-18] MEDS ORDERED: INSULIN REGULAR, HUMAN 100 UNITS/1 ML ONE (20:00)
[2020-10-18] MEDS ORDERED: MORPHINE 4 MG/1 ML INJ IV ONE (21:13)
[2020-10-18 21:28] LABS: Hepatitis C Virus Antibody Non-Reactive (NonReactive)
[2020-10-18 21:51] LABS: Hepatitis B Surface Antigen Non-Reactive (Negative)
[2020-10-18] MEDS ORDERED: ACETAMINOPHEN 325 MG TAB PO PRN (22:24)
[2020-10-18] MEDS ORDERED: DEXTROSE 50% IN WATER (25GM) 50 ML SYRINGE IV PRN (22:24)
[2020-10-18] MEDS ORDERED: MAGNESIUM HYDROXIDE (MOM) ORAL LIQD UDC PO PRN (22:24)
[2020-10-18] MEDS ORDERED: ONDANSETRON 4 MG/2 ML INJ IV PRN (22:24)
[2020-10-18] MEDS ORDERED: MORPHINE 2 MG/1 ML INJ IV PRN (22:24)
--- NOTE | 2020-10-18 22:34 | History and Physical Report ---
History of Present Illness Date of examination: 10/18/20 Date of admission: 10/18/20 21:31 Chief complaint: ESRD needing dialysis History of present illness: 34-year-old -[place] male with known history of hypertension, end-stage renal disease on dialysis presenting to the emergency room today complaining of nausea and vomiting and some chest discomfort. He therefore has not been able to go for dialysis today because of the vomiting. He has had some shortness of breath, denies any fever or chills, no abdominal pain and no diarrhea. Work-up in the emergency room today reveals a potassium of 6, BUN was 51 and creatinine was 12.5. Patient was also found to be quite hypertensive and was started on Cardene drip. He was also given insulin and glucose and calcium gluconate for the hyperkalemia. Biofuels Production Manager Dr. Mendosa has been consulted by the ER physician for dialysis. Past History Past Medical History: arthritis, COPD, diabetes, dialysis, ESRD, GERD, heart failure, hypertension, other (Ulcerative Esopgagitis,Gastroparesis) Past Surgical History: appendectomy, cholecystectomy, Other (A-V fistula placement on right upper extremity, Vas Cath placement.) Social history: no significant social history Family history: no significant family history Medications and Allergies Allergies Allergy/AdvReac Type Severity Reaction Status Date / Time No Known Allergies Allergy Verified 07/20/20 15:05 Home Medications Medication Instructions Recorded Confirmed Last Taken Type Lispro Insulin [HumaLOG] 5 unit SQ AC #1 vial 04/17/20 09/22/20 09/05/20 17:00 Rx Levemir Flextouch 10 units SQ PC 09/05/20 09/22/20 09/05/20 17:00 History Metoclopramide [Reglan TAB] 10 mg PO TID PRN 09/05/20 09/22/20 09/21/20 History Albuterol Sulfate [Albuterol 0.63% 0.63 mg IH BID PRN #60 vial 09/22/20 Unknown Rx NEBS] Labetalol 300mg TAB 300 mg PO BID #60 tab 09/22/20 Unknown Rx Pantoprazole [Protonix TAB] 40 mg PO BID #60 tab 09/22/20 Unknown Rx lisinopriL [Zestril TAB] 20 mg PO QHS #30 tablet 09/22/20 Unknown Rx oxyCODONE /ACETAMINOPHEN [Percocet 1 tab PO Q6H PRN tablet 09/22/20 Unknown Rx 5/325 mg] Ondansetron [Zofran Odt] 4 mg PO Q8HR PRN #14 tab.rapdis 10/05/20 Unknown Rx Active Meds: Active Medications Acetaminophen (Tylenol) 650 mg PO Q4H PRN PRN Reason: Pain MILD(1-3)/Fever >100.5/LANZA Dextrose (D50w (25gm) Syringe) 50 ml IV Q30MIN PRN; Protocol PRN Reason: Hypoglycemia Dextrose (D50w (25gm) Syringe) 50 ml IV Q30MIN PRN; Protocol PRN Reason: Hypoglycemia Heparin Sodium (Porcine) (Heparin) 5,000 unit SUB-Q Q8HR KESHIA Nicardipine/Sodium Chloride (Cardene Drip 40 Mg/200 Ml) 40 mg in 200 mls @ 25 mls/hr IV ONCE ONE; Protocol Stop: 10/19/20 03:22 Last Admin: 10/18/20 21:15 Dose: 5 mg/hr, 25 mls/hr Documented by: Sodium Chloride (Nacl 0.9%) 100 mls @ 999 mls/hr IV BRENDAN PRN PRN Reason: Hypotension Insulin Human Lispro (Humalog) 0 unit SUB-Q ACHS KESHIA; Protocol Magnesium Hydroxide (Milk Of Magnesia) 30 ml PO Q4H PRN PRN Reason: Constipation Morphine Sulfate (Morphine) 2 mg IV Q4H PRN PRN Reason: Pain, Moderate (4-6) Ondansetron HCl (Zofran) 4 mg IV Q8H PRN PRN Reason: Nausea And Vomiting Sodium Chloride (Sodium Chloride Flush Syringe 10 Ml) 10 ml IV BID KESHIA Sodium Chloride (Sodium Chloride Flush Syringe 10 Ml) 10 ml IV PRN PRN PRN Reason: LINE FLUSH Review of Systems Constitutional: no fever, no chills Ears, nose, mouth and throat: no nasal congestion, no sore throat Cardiovascular: no chest pain, no palpitations Respiratory: no cough, no shortness of breath Gastrointestinal: no abdominal pain, no nausea, no vomiting, no diarrhea Genitourinary Male: no dysuria, no hematuria, no nocturia Musculoskeletal: no neck pain, no low back pain Integumentary: no rash, no pruritis Neurological: no headaches, no convulsions, no confusion Psychiatric: no anxiety, no depression Exam - Constitutional Vitals: Temp Pulse Resp BP Pulse Ox 98.3 F 96 H 22 166/105 99 10/18/20 15:45 10/18/20 21:45 10/18/20 21:45 10/18/20 21:45 10/18/20 21:45 General appearance: Present: no acute distress, well-nourished - EENT Eyes: Present: PERRL, EOM intact. Absent: scleral icterus ENT: hearing intact, clear oral mucosa, dentition normal - Neck Neck: Present: supple, normal ROM - Respiratory Respiratory effort: normal Respiratory: bilateral: CTA - Cardiovascular Rhythm: regular Heart Sounds: Present: S1 & S2. Absent: gallop, systolic murmur, diastolic murmur, rub - Extremities Extremities: no ischemia, pulses intact, pulses symmetrical, No edema, Full ROM Peripheral Pulses: within normal limits - Abdominal General gastrointestinal: Present: soft, non-tender, non-distended, normal bowel sounds. Absent: mass - Integumentary Integumentary: Present: clear, warm, dry. Absent: rash - Musculoskeletal Musculoskeletal: strength equal bilaterally - Psychiatric Psychiatric: appropriate mood/affect, intact judgment & insight, memory intact, cooperative - Neurologic Neurologic: CNII-XII intact, no focal deficits, moves all extremities HEART Score - HEART Score Troponin: Troponin T 0.790 ng/mL (0.00-0.029) H* 10/18/20 18:50 Results - Labs CBC & Chem 7: 10/18/20 16:09 10/18/20 16:09 Labs: Abnormal lab results 10/18/20 10/18/20 10/18/20 Range/Units 16:09 16:09 18:50 RDW 20.3 H (13.2-15.2) % Baso % (Auto) 2.4 H (0.0-1.8) % Lymph # (Auto) 1.1 L (1.2-5.4) K/mm3 Baso # (Auto) 0.2 H (0.0-0.1) K/mm3 Seg Neutrophils % 71.0 H (40.0-70.0) % Potassium 6.0 H (3.6-5.0) mmol/L BUN 51 H (9-20) mg/dL Creatinine 12.5 H (0.8-1.3) mg/dL Glucose 124 H (75-100) mg/dL Troponin T 0.808 H* 0.790 H* (0.00-0.029) ng/mL HDL Cholesterol 70 H (40-59) mg/dL Assessment and Plan - Patient Problems (1) End-stage renal disease needing dialysis Current Visit: Yes Status: Chronic Plan to address problem: Biofuels Production Manager has been consulted for dialysis. (2) Hypertensive emergency Current Visit: Yes Status: Acute Plan to address problem: Patient placed on Cardene drip. Will monitor vital signs accordingly. (3) Acute hyperkalemia Current Visit: Yes Status: Acute Plan to address problem: We will monitor chemistry. Patient has received insulin and glucose, calcium gluconate and Kayexalate. (4) Diabetes mellitus Current Visit: No Status: Acute Plan to address problem: We will monitor Accu-Cheks. (5) DVT prophylaxis Current Visit: No Status: Acute Plan to address problem: Patient placed on subcutaneous heparin. (6) Full code status Current Visit: No Status: Acute
[2020-10-19] MEDS ORDERED: SODIUM CHLORIDE 0.9% 1000 ML 1,000 ML ONE (00:49)
[2020-10-19] MEDS ORDERED: cloNIDine 0.2 MG TAB PO ONE (04:04)
[2020-10-19] MEDS ORDERED: HYALURONIDASE 150 UNIT/ML VIAL SUB-Q ONE (04:05)
[2020-10-19] MEDS ORDERED: hydrALAZINE 100 MG TAB PO ONE (05:00)
[2020-10-19] MEDS ORDERED: LISINOPRIL 20 MG TAB PO ONE (05:03)
[2020-10-19 05:21] LABS: Basophils # (Auto) 0.1 K/mm3 (0.0-0.1); Basophils % (Auto) 1.4 % (0.0-1.8); Eosinophils # (Auto) 0.3 K/mm3 (0.0-0.4); Eosinophils % (Auto) 4.1 % (0.0-4.3); Hematocrit 30.1 % (35.5-45.6); Lymphocytes # (Auto) 1.5 K/mm3 (1.2-5.4); Lymphocytes % (Auto) 22.3 % (13.4-35.0); Mean Corpuscular HGB Conc 33 % (32-34); Mean Corpuscular Volume 85 fl (84-94); Monocytes # (Auto) 0.7 K/mm3 (0.0-0.8); Monocytes % (Auto) 10.2 % (0.0-7.3); Platelet Count 380 K/mm3 (140-440); Red Blood Count 3.52 M/mm3 (3.65-5.03); Red Cell Distribution Width 19.4 % (13.2-15.2)
[2020-10-19 05:30] LABS: INR 1.28 (0.87-1.13)
[2020-10-19 05:48] LABS: Calcium 9.2 mg/dL (8.4-10.2)
[2020-10-19] MEDS ORDERED: HEPARIN 5,000 UNIT/1 ML VIAL SUB-Q SCH (06:00)
[2020-10-19] MEDS ORDERED: METOCLOPRAMIDE 10 MG TAB PO PRN (09:55)
[2020-10-19] MEDS ORDERED: oxyCODONE /ACETAMINOPHEN 5-325MG TAB PO PRN (09:55)
[2020-10-19] MEDS ORDERED: INSULIN DETEMIR 10 UNIT SQ SCH (10:00)
[2020-10-19] MEDS ORDERED: PANTOPRAZOLE 40 MG TAB PO SCH (10:15)
--- NOTE | 2020-10-19 10:28 | Discharge Summary ---
Providers - Providers Date of Admission: 10/18/20 21:31 Attending physician: BERNARDINO PHAN MD 10/18/20 19:24 Consult to Physician [CONS] Stat Comment: Consulting Provider: NYA MENDOSA Physician Instructions: Reason For Exam: Acute hyperkalemia, volume overload 10/18/20 22:24 Consult to Dietitian/Nutrition [CONS] Routine Physician Instructions: Reason For Exam: Reason for Consult: Diet education 10/19/20 06:50 Consult to Physician [CONS] Routine Comment: Consulting Provider: FAITH ST Physician Instructions: Reason For Exam: Hypertensive Emergency on Nicardipine drip Primary care physician: SULFONATION EQUIPMENT OPERATOR Hospitalization Reason for admission: HTN Condition: Stable Hospital course: 34-year-old -British male with known history of hypertension, end-stage renal disease on dialysis presenting to the emergency room today complaining of nausea and vomiting and some chest discomfort. He therefore has not been able to go for dialysis today because of the vomiting. He has had some shortness of breath, denies any fever or chills, no abdominal pain and no diarrhea. Work-up in the emergency room today reveals a potassium of 6, BUN was 51 and creatinine was 12.5. Patient was also found to be quite hypertensive and was started on Cardene drip. He was also given insulin and glucose and calcium gluconate for the hyperkalemia. Supervisor Covering And Lining Dr. Mendosa has been consulted by the ER physician for dialysis. Patient seen and examined, BP now 140/88. Patient was dialyzed yesterday and states he is doing well. While he has his home meds he states he ran out of his pain medicine. I have advised his to follow at the [facility] for further evaluation of his GI issues He is eating and tolerating his diet. Patient improved faster than expected 1) End-stage renal disease needing dialysis Current Visit: Yes Status: Chronic Plan to address problem: Supervisor Covering And Lining has been consulted for dialysis. (2) Hypertensive emergency Current Visit: Yes Status: Acute Plan to address problem: Patient placed on Cardene drip. Will monitor vital signs accordingly. (3) Acute hyperkalemia Current Visit: Yes Status: Acute Plan to address problem: We will monitor chemistry. Patient has received insulin and glucose, calcium gluconate and Kayexalate. (4) Diabetes mellitus Current Visit: No Status: Acute Plan to address problem: We will monitor Accu-Cheks. (5) Gastroparesis (6) Chronic Pain syndrome Disposition: DC-01 TO HOME OR SELFCARE Time spent for discharge: 35 mins Core Measure Documentation - Palliative Care Palliative Care/ Comfort Measures: Not Applicable - Core Measures Any of the following diagnoses?: none Exam - Physical Exam Narrative exam: General appearance: Present: no acute distress, well-nourished - EENT Eyes: Present: PERRL, EOM intact. Absent: scleral icterus ENT: hearing intact, clear oral mucosa, dentition normal - Neck Neck: Present: supple, normal ROM - Respiratory Respiratory effort: normal Respiratory: bilateral: CTA - Cardiovascular Rhythm: regular Heart Sounds: Present: S1 & S2. Absent: gallop, systolic murmur, diastolic murmur, rub - Extremities Extremities: no ischemia, pulses intact, pulses symmetrical, No edema, Full ROM Peripheral Pulses: within normal limits - Abdominal General gastrointestinal: Present: soft, non-tender, non-distended, normal bowel sounds. Absent: mass - Integumentary Integumentary: Present: clear, warm, dry. Absent: rash - Musculoskeletal Musculoskeletal: strength equal bilaterally - Psychiatric Psychiatric: appropriate mood/affect, intact judgment & insight, memory intact, cooperative - Neurologic Neurologic: CNII-XII intact, no focal deficits, moves all extremities - Constitutional Vitals: Temp Pulse Resp BP Pulse Ox 98.2 F 86 10 L 142/82 90 10/19/20 03:32 10/19/20 10:11 10/19/20 10:11 10/19/20 10:11 10/19/20 10:11 Plan Activity: advance as tolerated, fall precautions Diet: diabetic, renal Special Instructions: record daily weights, record daily BP diary Follow up with: PRIMARY CARE, [Primary Care Provider] - 3-5 Days LEN ULRICH MD [Staff Physician] - 7 Days Prescriptions: oxyCODONE /ACETAMINOPHEN [Percocet 5/325 mg] 1 tab PO Q6H PRN #14 tablet PRN Reason: Pain, Moderate (4-6) Metoclopramide [Reglan TAB] 10 mg PO TID PRN #30 PRN Reason: Nausea
[2020-10-19] MEDS: INSULIN LISPRO 100 UNIT/ML VIAL 3 mL SUB-Q SCH (12:08)
--- NOTE | 2020-10-19 12:17 | Consultation ---
History of Present Illness - Reason for Consult Consult date: 10/19/20 end stage renal disease - History of Present Illness This is a 34-year-old man with known history of hypertension, end-stage renal disease on dialysis who presented to the emergency room today complaining of nausea and vomiting and some chest discomfort. Missed his usual HD as a result, came to ED with dyspnea and volume, found to have BP >200 systolic, K 6.0. Received urgent HD for 2 hours last night and was placed on Cardene gtt. This AM, he notes feeling much better. He notes that his BP had been well controlled when he doubles the doses of his medications (hydralazine, labetalol). Denies any dyspnea, edema, nausea, vomiting, headaches this AM Past History Past Medical History: arthritis, COPD, diabetes, dialysis, ESRD, GERD, heart failure, hypertension, other (Ulcerative Esopgagitis,Gastroparesis) Past Surgical History: appendectomy, cholecystectomy, Other (A-V fistula placement on right upper extremity, Vas Cath placement.) Social history: no significant social history Family history: no significant family history Medications and Allergies Allergies Allergy/AdvReac Type Severity Reaction Status Date / Time No Known Allergies Allergy Verified 07/20/20 15:05 Home Medications Medication Instructions Recorded Confirmed Last Taken Type Lispro Insulin [HumaLOG] 5 unit SQ AC #1 vial 04/17/20 10/19/20 09/05/20 17:00 Rx Insulin Detemir [Levemir Flextouch] 10 units SQ PC #0 09/05/20 10/19/20 09/05/20 17:00 History Albuterol Sulfate [Albuterol 0.63% 0.63 mg IH BID PRN #60 vial 09/22/20 10/19/20 Unknown Rx NEBS] Labetalol 300mg TAB 300 mg PO BID #60 tab 09/22/20 10/19/20 Unknown Rx Pantoprazole [Protonix TAB] 40 mg PO BID #60 tab 09/22/20 10/19/20 Unknown Rx lisinopriL [Zestril TAB] 20 mg PO QHS #30 tablet 09/22/20 10/19/20 Unknown Rx Ondansetron [Zofran ODT TAB] 4 mg PO Q8HR PRN #14 tab.rapdis 10/05/20 10/19/20 Unknown Rx Metoclopramide [Reglan TAB] 10 mg PO TID PRN #30 10/19/20 Unknown Rx oxyCODONE /ACETAMINOPHEN [Percocet 1 tab PO Q6H PRN #14 tablet 10/19/20 Unknown Rx 5/325 mg] Active Meds: Active Medications Acetaminophen (Tylenol) 650 mg PO Q4H PRN PRN Reason: Pain MILD(1-3)/Fever >100.5/LANZA Dextrose (D50w (25gm) Syringe) 50 ml IV Q30MIN PRN; Protocol PRN Reason: Hypoglycemia Heparin Sodium (Porcine) (Heparin) 5,000 unit SUB-Q Q8HR [facility] Last Admin: 10/19/20 06:10 Dose: 5,000 unit Documented by: Sodium Chloride (Nacl 0.9%) 100 mls @ 999 mls/hr IV BRENDAN PRN PRN Reason: Hypotension Insulin Glargine (Lantus) 10 units SUB-Q 1800 [facility] Insulin Human Lispro (Humalog) 0 unit SUB-Q ACHS [facility]; Protocol Last Admin: 10/19/20 12:08 Dose: Not Given Documented by: Labetalol HCl (Labetalol) 300 mg PO BID [facility] Last Admin: 10/19/20 11:25 Dose: 300 mg Documented by: Lisinopril (Zestril) 20 mg PO QHS [facility] Magnesium Hydroxide (Milk Of Magnesia) 30 ml PO Q4H PRN PRN Reason: Constipation Metoclopramide HCl (Reglan) 10 mg PO TID PRN PRN Reason: Nausea Morphine Sulfate (Morphine) 2 mg IV Q4H PRN PRN Reason: Pain, Moderate (4-6) Last Admin: 10/19/20 06:21 Dose: 2 mg Documented by: Ondansetron HCl (Zofran) 4 mg IV Q8H PRN PRN Reason: Nausea And Vomiting Oxycodone/Acetaminophen (Percocet 5/325) 1 tab PO Q6H PRN PRN Reason: Pain, Moderate (4-6) Pantoprazole Sodium (Protonix) 40 mg PO BIDAC [facility] Last Admin: 10/19/20 12:09 Dose: Not Given Documented by: Sodium Chloride (Sodium Chloride Flush Syringe 10 Ml) 10 ml IV BID [facility] Last Admin: 10/19/20 12:08 Dose: Not Given Documented by: Sodium Chloride (Sodium Chloride Flush Syringe 10 Ml) 10 ml IV PRN PRN PRN Reason: LINE FLUSH Review of Systems All systems: negative (as per HPI) Exam - Vital Signs Vital signs: Vital Signs Temp Pulse Resp BP Pulse Ox 98.3 F 103 H 20 210/131 100 10/18/20 15:45 10/18/20 15:45 10/18/20 15:45 10/18/20 15:45 10/18/20 15:45 - General Appearance General appearance: well-developed, well-nourished EENT: ATNC Neck: Present: neck supple, trachea midline Respiratory: Clear to Ascultation Heart: regular, normal heart rate Gastrointestinal: Present: normal, normoactive bowel sounds Integumentary: no rash, warm and dry Neurologic: no focal deficit, alert and oriented x3 Psychiatric: mood/affect appropriate Results - Lab Results 10/19/20 04:37 10/19/20 04:37 Most recent lab results Calcium 9.2 mg/dL (8.4-10.2) 10/19/20 04:37 Assessment and Plan This is a 34 year old man who presents with hyperkalemia, hypertensive urgency. # ESRD: HD yesterday for hyperkalemia, volume/BP. Labs much improved today, no need for additional HD today. Resume outpatient // schedule, due tomorrow, can be done at outpatient unit - daily labs - renally dose meds - avoid nephrotoxins - renal diet # Anemia: last hemoglobin 10.0, no indication for ESAs with HD # HTN: UF as tolerated. BP now stable. # Secondary Hyperparathyroidism: continue home binders as needed
[2020-10-19 12:47] VITALS: BP 139/88
--- NOTE | 2020-10-19 12:52 | Consultation ---
History of Present Illness Consult date: 10/19/20 History of present illness: Patient discharged before I see the patient. Past History Past Medical History: arthritis, COPD, diabetes, dialysis, ESRD, GERD, heart failure, hypertension, other (Ulcerative Esopgagitis,Gastroparesis) Past Surgical History: appendectomy, cholecystectomy, Other (A-V fistula p lacement on right upper extremity, Vas Cath placement.) Social history: no significant social history Family history: no significant family history Medications and Allergies Allergies Allergy/AdvReac Type Severity Reaction Status Date / Time No Known Allergies Allergy Verified 07/20/20 15:05 Home Medications Medication Instructions Recorded Confirmed Last Taken Type Lispro Insulin [HumaLOG] 5 unit SQ AC #1 vial 04/17/20 10/19/20 09/05/20 17:00 Rx Insulin Detemir [Levemir Flextouch] 10 units SQ PC #0 09/05/20 10/19/20 09/05/20 17:00 History Albuterol Sulfate [Albuterol 0.63% 0.63 mg IH BID PRN #60 vial 09/22/20 10/19/20 Unknown Rx NEBS] Labetalol 300mg TAB 300 mg PO BID #60 tab 09/22/20 10/19/20 Unknown Rx Pantoprazole [Protonix TAB] 40 mg PO BID #60 tab 09/22/20 10/19/20 Unknown Rx lisinopriL [Zestril TAB] 20 mg PO QHS #30 tablet 09/22/20 10/19/20 Unknown Rx Ondansetron [Zofran ODT TAB] 4 mg PO Q8HR PRN #14 tab.rapdis 10/05/20 10/19/20 Unknown Rx Metoclopramide [Reglan TAB] 10 mg PO TID PRN #30 10/19/20 Unknown Rx oxyCODONE /ACETAMINOPHEN [Percocet 1 tab PO Q6H PRN #14 tablet 10/19/20 Unknown Rx 5/325 mg] Active Meds: Active Medications Acetaminophen (Tylenol) 650 mg PO Q4H PRN PRN Reason: Pain MILD(1-3)/Fever >100.5/LANZA Dextrose (D50w (25gm) Syringe) 50 ml IV Q30MIN PRN; Protocol PRN Reason: Hypoglycemia Heparin Sodium (Porcine) (Heparin) 5,000 unit SUB-Q Q8HR [facility] Last Admin: 10/19/20 06:10 Dose: 5,000 unit Documented by: Sodium Chloride (Nacl 0.9%) 100 mls @ 999 mls/hr IV BRENDAN PRN PRN Reason: Hypotension Insulin Glargine (Lantus) 10 units SUB-Q 1800 [facility] Insulin Human Lispro (Humalog) 0 unit SUB-Q ACHS [facility]; Protocol Last Admin: 10/19/20 12:08 Dose: Not Given Documented by: Labetalol HCl (Labetalol) 300 mg PO BID [facility] Last Admin: 10/19/20 11:25 Dose: 300 mg Documented by: Lisinopril (Zestril) 20 mg PO QHS [facility] Magnesium Hydroxide (Milk Of Magnesia) 30 ml PO Q4H PRN PRN Reason: Constipation Metoclopramide HCl (Reglan) 10 mg PO TID PRN PRN Reason: Nausea Morphine Sulfate (Morphine) 2 mg IV Q4H PRN PRN Reason: Pain, Moderate (4-6) Last Admin: 10/19/20 06:21 Dose: 2 mg Documented by: Ondansetron HCl (Zofran) 4 mg IV Q8H PRN PRN Reason: Nausea And Vomiting Oxycodone/Acetaminophen (Percocet 5/325) 1 tab PO Q6H PRN PRN Reason: Pain, Moderate (4-6) Pantoprazole Sodium (Protonix) 40 mg PO BIDAC [facility] Last Admin: 10/19/20 12:09 Dose: Not Given Documented by: Sodium Chloride (Sodium Chloride Flush Syringe 10 Ml) 10 ml IV BID [facility] Last Admin: 10/19/20 12:08 Dose: Not Given Documented by: Sodium Chloride (Sodium Chloride Flush Syringe 10 Ml) 10 ml IV PRN PRN PRN Reason: LINE FLUSH Review of Systems All systems: negative Physical Examination Vital signs: Vital Signs Temp Pulse Resp BP Pulse Ox 98.3 F 103 H 20 210/131 100 10/18/20 15:45 10/18/20 15:45 10/18/20 15:45 10/18/20 15:45 10/18/20 15:45 Results - Laboratory Findings CBC and BMP: 10/19/20 04:37 10/19/20 04:37 PT/INR, D-dimer PT 16.0 Sec. (12.2-14.9) H 10/19/20 04:37 INR 1.28 (0.87-1.13) H 10/19/20 04:37 Abnormal lab findings: Abnormal Labs 10/18/20 10/18/20 10/18/20 16:09 16:09 18:50 RBC Hgb Hct RDW 20.3 H Jackson % (Auto) Baso % (Auto) 2.4 H Lymph # (Auto) 1.1 L Baso # (Auto) 0.2 H Seg Neutrophils % 71.0 H PT INR Potassium 6.0 H BUN 51 H Creatinine 12.5 H Glucose 124 H Troponin T 0.808 H* 0.790 H* HDL Cholesterol 70 H 10/19/20 10/19/20 10/19/20 04:37 04:37 04:37 RBC 3.52 L Hgb 10.0 L Hct 30.1 L D RDW 19.4 H Jackson % (Auto) 10.2 H Baso % (Auto) Lymph # (Auto) Baso # (Auto) Seg Neutrophils % PT 16.0 H INR 1.28 H Potassium BUN 34 H Creatinine 9.5 H Glucose 148 H Troponin T HDL Cholesterol Assessment and Plan - Patient Problems (1) SOB (shortness of breath) Status: Acute (2) COPD (chronic obstructive pulmonary disease) Status: Acute
[2020-10-19] MEDS ORDERED: INSULIN GLARGINE 100 UNITS/ML SUB-Q SCH (18:00)
[2020-10-19] MEDS ORDERED: LISINOPRIL 20 MG TAB PO SCH (22:00)
== END 2020-10-19 13:05 | disposition home or self-care (01) | DRG 640 ==
LOC: ED 14:35 → CC1 21:31 → 3A 10-19 10:58
PROVIDERS: ADMIT Internal Medicine Geriatric Medicine; ATTEND Internal Medicine
PROC: 5A1D70Z Performance of Urinary Filtration, Intermittent, Less than 6 Hours Per Day (ICD-10-PCS; principal; 2020-10-19)
DX: E87.5 Hyperkalemia (principal); N18.6 End stage renal disease; I16.1 Hypertensive emergency; N25.81 Secondary hyperparathyroidism of renal origin; I13.2 Hypertensive heart and chronic kidney disease with heart failure and with stage 5 chronic kidney disease, or end stage renal disease; Z99.2 Dependence on renal dialysis; E11.43 Type 2 diabetes mellitus with diabetic autonomic (poly)neuropathy; K31.84 Gastroparesis; G89.4 Chronic pain syndrome; M19.90 Unspecified osteoarthritis, unspecified site; J44.9 Chronic obstructive pulmonary disease, unspecified; E11.22 Type 2 diabetes mellitus with diabetic chronic kidney disease; K21.9 Gastro-esophageal reflux disease without esophagitis; D64.9 Anemia, unspecified; I50.9 Heart failure, unspecified; Z90.49 Acquired absence of other specified parts of digestive tract; Z79.899 Other long term (current) drug therapy
CPT/HCPCS: 36415; 71045; 80048; 80061; 80074; 84484; 85025; 85610; 90471; 93005; 96372; 96374; 96375; 96376; G0378; J0360; J1644; J1815; J2270; J2405; J3470; J7030

== ENCOUNTER 2020-12-10 18:15 | Inpatient (IN) | payer MEDICARE ==
--- NOTE | 2020-12-10 18:50 | Event Note ---
ED Screening Note ED Screening Note: states he needs dialysis last [facility] did not pick him [facility]" +sob +CP, right sided feels like throbbing This initial assessment/diagnostic orders/clinical plan/treatment(s) is/are subject to change based on patients health status, clinical progression and re- assessment by fellow clinical providers in the ED. Further treatment and workup at subsequent clinical providers discretion. Patient/guardian urged not to elope from the ED as their condition may be serious if not clinically assessed and managed. Initial orders include: CP protocol
--- NOTE | 2020-12-10 19:38 | XRay Report ---
CHEST 2 VIEWS INDICATION / CLINICAL INFORMATION: Chest Pain. COMPARISON: 10/18/2020 FINDINGS: SUPPORT DEVICES: Left central venous line HEART / MEDIASTINUM: No significant abnormality. LUNGS / PLEURA: Patchy bilateral airspace disease No pneumothorax. ADDITIONAL FINDINGS: No significant additional findings. IMPRESSION: Patchy bilateral airspace disease is present Signer Name: Faisal Weaver MD FACR Signed: 12/10/2020 7:33 PM Workstation Name: [id number]
[2020-12-10 20:57] LABS: Basophils # (Auto) 0.1 K/mm3 (0.0-0.1); Basophils % (Auto) 0.7 % (0.0-1.8); Eosinophils # (Auto) 0.2 K/mm3 (0.0-0.4); Eosinophils % (Auto) 2.7 % (0.0-4.3); Hematocrit 21.3 % (35.5-45.6); Hemoglobin 6.9 gm/dl (11.8-15.2); Lymphocytes # (Auto) 1.3 K/mm3 (1.2-5.4); Lymphocytes % (Auto) 14.1 % (13.4-35.0); Mean Corpuscular HGB Conc 32 % (32-34); Mean Corpuscular Volume 85 fl (84-94); Monocytes # (Auto) 1.3 K/mm3 (0.0-0.8); Monocytes % (Auto) 14.6 % (0.0-7.3); Platelet Count 318 K/mm3 (140-440)
[2020-12-10 21:38] LABS: Albumin 3.9 g/dL (3.9-5); Calcium 8.8 mg/dL (8.4-10.2)
[2020-12-10] MEDS ORDERED: ALBUTEROL 2.5 MG/3 ML NEBU IH ONE (21:49)
[2020-12-10] MEDS ORDERED: DEXTROSE 50% IN WATER (25GM) 50 ML SYRINGE IV ONE (21:49)
[2020-12-10] MEDS ORDERED: CALCIUM GLUCONATE 1,000 MG in SODIUM CHLORIDE 0.9% 100 ML IV ONE ×2 (21:49→23:00)
[2020-12-10] MEDS ORDERED: SODIUM BICARB 8.4% 50 MEQ/50 ML SYRINGE IV ONE (21:49)
[2020-12-10] MEDS ORDERED: INSULIN REGULAR, HUMAN 100 UNITS/1 ML IV ONE (21:49)
[2020-12-10] MEDS ORDERED: SODIUM CHLORIDE 0.9% 100 ML IV PRN (22:41)
[2020-12-10] MEDS ORDERED: EPOETIN ALFA 20,000 UNIT/1 ML INJ IV PRN (22:41)
[2020-12-10] MEDS ORDERED: ACETAMINOPHEN 325 MG TAB PO PRN (22:56)
[2020-12-10] MEDS ORDERED: ONDANSETRON 4 MG/2 ML INJ IV PRN (22:56)
--- NOTE | 2020-12-10 23:06 | History and Physical Report ---
History of Present Illness Date of examination: 12/10/20 Chief complaint: Shortness of breath Missed dialysis History of present illness: 35 years old male with history of end-stage renal disease on hemodialysis missed the hemodialysis. As per the patient he usually went to the dialysis last time at 12/05/2020 at [facility]. As per the patient the new clinic did not pick him up for dialysis. Patient came to the emergency room with shortness of breath, questionable chest pain which is right-sided which feels like throbbing. In In the emergency room patient is found to have BUN of 127 and creatinine of 14.9 and potassium of 7.2. Hemoglobin is 6.9 and hematocrit 21.3 We are admitting the patient for emergent hemodialysis. Patient already get D50, 10 units of insulin, 1 ampoule of sodium bicarb and calcium gluconate one 1 g x 1 Past History Past Medical History: ESRD Medications and Allergies Allergies Allergy/AdvReac Type Severity Reaction Status Date / Time No Known Allergies Allergy Verified 07/20/20 15:05 Home Medications Medication Instructions Recorded Confirmed Last Taken Type Lispro Insulin [HumaLOG] 5 unit SQ AC #1 vial 04/17/20 10/27/20 09/05/20 17:00 Rx Ondansetron [Zofran ODT TAB] 4 mg PO Q8HR PRN #14 tab.rapdis 10/05/20 10/27/20 Unknown Rx Albuterol Sulfate [Albuterol 0.63% 0.63 mg IH BID PRN #60 vial 11/03/20 Unknown Rx NEBS] Insulin Detemir [Levemir Flextouch] 10 units SQ PC 30 Days 11/03/20 Unknown Rx Metoclopramide [Reglan TAB] 10 mg PO TID PRN #30 11/03/20 Unknown Rx NIFEdipine XL [Procardia Xl] 60 mg PO Q12HR #60 tablet 11/03/20 Unknown Rx Pantoprazole [Protonix TAB] 40 mg PO BID #60 tab 11/03/20 Unknown Rx hydrALAZINE [Apresoline TAB] 100 mg PO TID #90 tab 11/03/20 Unknown Rx labetaloL [Labetalol 100mg TAB] 100 mg PO TID #90 tablet 11/03/20 Unknown Rx labetaloL [Labetalol 200mg TAB] 200 mg PO TID #90 tablet 11/03/20 Unknown Rx lisinopriL [Zestril TAB] 20 mg PO QHS #30 tablet 11/03/20 Unknown Rx oxyCODONE /ACETAMINOPHEN [Percocet 1 tab PO Q6H PRN #14 tablet 11/03/20 Unknown Rx 5/325 mg] Active Meds: Active Medications Acetaminophen (Acetaminophen 325 Mg Tab) 650 mg PO Q6H PRN PRN Reason: Pain MILD(1-3)/Fever >100.5/LANZA Epoetin Wale (Epoetin Wale 20,000 Unit/1 Ml Inj) 20,000 unit IV BRENDAN PRN PRN Reason: hemodialysis Famotidine (Famotidine 20 Mg Tab) 20 mg PO BID [facility] Heparin Sodium (Porcine) (Heparin 5,000 Unit/1 Ml Vial) 5,000 unit SUB-Q Q8HR [facility] Sodium Chloride (Nacl 0.9%) 100 mls @ 999 mls/hr IV BRENDAN PRN PRN Reason: Hypotension Calcium Gluconate 1,000 mg/ (Sodium Chloride) 110 mls @ 660 mls/hr IV ONCE ONE Stop: 12/10/20 23:09 Ondansetron HCl (Ondansetron 4 Mg/2 Ml Inj) 4 mg IV Q8H PRN PRN Reason: Nausea And Vomiting Sodium Chloride (Sodium Chloride 0.9% 10 Ml Flush Syringe) 10 ml IV BID [facility] Sodium Chloride (Sodium Chloride 0.9% 10 Ml Flush Syringe) 10 ml IV PRN PRN PRN Reason: LINE FLUSH Review of Systems Constitutional: fatigue, weakness Cardiovascular: chest pain, shortness of breath Exam - Constitutional Vitals: Temp Pulse Resp BP Pulse Ox 98.6 F 89 15 216/114 98 12/10/20 20:53 12/10/20 20:53 12/10/20 20:53 12/10/20 20:53 12/10/20 20:53 General appearance: Present: no acute distress, well-nourished - EENT Eyes: Present: PERRL ENT: hearing intact, clear oral mucosa - Neck Neck: Present: supple, normal ROM - Respiratory Respiratory effort: normal Respiratory: bilateral: diminished - Cardiovascular Heart Sounds: Present: S1 & S2. Absent: rub, click - Extremities Extremities: pulses symmetrical, No edema Peripheral Pulses: within normal limits - Abdominal General gastrointestinal: Present: soft, non-tender, non-distended, normal bowel sounds Male genitourinary: Present: normal - Integumentary Integumentary: Present: clear, warm, dry - Musculoskeletal Musculoskeletal: gait normal, strength equal bilaterally - Psychiatric Psychiatric: appropriate mood/affect, intact judgment & insight - Neurologic Neurologic: CNII-XII intact, moves all extremities Results - Labs CBC & Chem 7: 12/10/20 20:38 12/10/20 20:38 Labs: Laboratory Last Values WBC 8.9 K/mm3 (4.5-11.0) 12/10/20 20:38 RBC 2.50 M/mm3 (3.65-5.03) L 12/10/20 20:38 Hgb 6.9 gm/dl (11.8-15.2) L 12/10/20 20:38 Hct 21.3 % (35.5-45.6) L 12/10/20 20:38 MCV 85 fl (84-94) 12/10/20 20:38 MCH 28 pg (28-32) 12/10/20 20:38 MCHC 32 % (32-34) 12/10/20 20:38 RDW 20.0 % (13.2-15.2) H 12/10/20 20:38 Plt Count 318 K/mm3 (140-440) 12/10/20 20:38 Lymph % (Auto) 14.1 % (13.4-35.0) 12/10/20 20:38 Carbon % (Auto) 14.6 % (0.0-7.3) H 12/10/20 20:38 Eos % (Auto) 2.7 % (0.0-4.3) 12/10/20 20:38 Baso % (Auto) 0.7 % (0.0-1.8) 12/10/20 20:38 Lymph # (Auto) 1.3 K/mm3 (1.2-5.4) 12/10/20 20:38 Carbon # (Auto) 1.3 K/mm3 (0.0-0.8) H 12/10/20 20:38 Eos # (Auto) 0.2 K/mm3 (0.0-0.4) 12/10/20 20:38 Baso # (Auto) 0.1 K/mm3 (0.0-0.1) 12/10/20 20:38 Seg Neutrophils % 67.9 % (40.0-70.0) 12/10/20 20:38 Seg Neutrophils # 6.0 K/mm3 (1.8-7.7) 12/10/20 20:38 Sodium 139 mmol/L (137-145) 12/10/20 20:38 Potassium 7.2 mmol/L (3.6-5.0) H* 12/10/20 20:38 Chloride 99.0 mmol/L (98-107) 12/10/20 20:38 Carbon Dioxide 21 mmol/L (22-30) L 12/10/20 20:38 Anion Gap 26 mmol/L 12/10/20 20:38 BUN 127 mg/dL (9-20) H 12/10/20 20:38 Creatinine 14.9 mg/dL (0.8-1.3) H 12/10/20 20:38 Estimated GFR 5 ml/min 12/10/20 20:38 BUN/Creatinine Ratio 9 % 12/10/20 20:38 Glucose 110 mg/dL (75-100) H 12/10/20 20:38 Calcium 8.8 mg/dL (8.4-10.2) 12/10/20 20:38 Total Bilirubin 0.30 mg/dL (0.1-1.2) 12/10/20 20:38 AST 23 units/L (5-40) 12/10/20 20:38 ALT 68 units/L (7-56) H 12/10/20 20:38 Alkaline Phosphatase 227 units/L (35-129) H 12/10/20 20:38 Total Protein 6.7 g/dL (6.3-8.2) 12/10/20 20:38 Albumin 3.9 g/dL (3.9-5) 12/10/20 20:38 Albumin/Globulin Ratio 1.4 % 12/10/20 20:38 - Imaging and Cardiology Chest x-ray: image reviewed Assessment and Plan - Patient Problems (1) ESRD (end stage renal disease) on dialysis Current Visit: Yes Status: Acute Plan to address problem: Admit the patient to the ICU. Put the patient on renal diet. Oxygen by nasal cannula 3 L/min. Will consult nephrology for emergent dialysis. Recheck CBC BMP in the morning (2) Anemia in ESRD (end-stage renal disease) Current Visit: No Status: Acute Plan to address problem: We will give 1 unit of packed red blood cells with the hemodialysis. Will consult nephrology for emergent dialysis. Recheck CBC BMP in the morning (3) T2DM (type 2 diabetes mellitus) Current Visit: No Status: Chronic Plan to address problem: We will put the patient on 1800 kcal ADA diet we also put the patient on insulin sliding scale and diabetic education. Will recheck CBC BMP in the morning (4) Acute hyperkalemia Current Visit: No Status: Acute Plan to address problem: Admit the patient to the ICU. Oxygen by nasal cannula 3 L/min. Patient already got D50 1 ampoule, insulin 10 units IV, 1 ampoule of sodium bicarb and calcium gluconate 1 g IV x1 dose. we consulted nephrology for emergent dial ysis. Recheck CBC BMP in the morning
[2020-12-10] MEDS ORDERED: DEXTROSE 50% IN WATER (25GM) 50 ML SYRINGE IV PRN (23:10)
[2020-12-10] MEDS ORDERED: METOCLOPRAMIDE 10 MG TAB PO PRN ×2 (23:11→23:52)
[2020-12-10] MEDS ORDERED: NON-FORMULARY EACH (Albuterol Sulfate [Albuterol 0.63% Nebs] 0.63 MG/3 ML Vial.Neb) IH PRN (23:11)
--- NOTE | 2020-12-10 23:36 | Emergency Department Report ---
ED General Adult HPI - General Chief complaint: Weakness Stated complaint: DIALYSIS Time Seen by Provider: 12/10/20 18:48 Source: patient Mode of arrival: Ambulatory Limitations: No Limitations - History of Present Illness Initial comments: Chief complaint: "I need dialysis." HPI: Is a 35-year-old male with history of end-stage renal disease on hemodia lysis, diabetes mellitus, recurrent HD related bacteremia, gastric ulcer, esophagitis, who presents with after missing dialysis scheduled for today. He now receives dialysis at present he is a dialysis clinic on [facility]. He does not have a personal labourers. He last received hemodialysis [facility] on Saturday. He denies any pain or discomfort. He endorsed throbbing chest pain to the triage provider. However he denies chest discomfort. His only concern is mild shortness of breath. -: Gradual, days(s) (Several days shortness of breath) Severity scale (0 -10): 0 Consistency: constant, other (No pain only mild shortness of breath) Improves with: none Worsens with: none Associated Symptoms: shortness of breath Treatments Prior to Arrival: none - Related Data Previous Rx's Medication Instructions Recorded Last Taken Type Lispro Insulin [HumaLOG] 5 unit SQ AC #1 vial 04/17/20 09/05/20 17:00 Rx Ondansetron [Zofran ODT TAB] 4 mg PO Q8HR PRN #14 tab.rapdis 10/05/20 Unknown Rx Albuterol Sulfate [Albuterol 0.63% 0.63 mg IH BID PRN #60 vial 11/03/20 Unknown Rx NEBS] Insulin Detemir [Levemir Flextouch] 10 units SQ PC 30 Days 11/03/20 Unknown Rx Metoclopramide [Reglan TAB] 10 mg PO TID PRN #30 11/03/20 Unknown Rx NIFEdipine XL [Procardia Xl] 60 mg PO Q12HR #60 tablet 11/03/20 Unknown Rx Pantoprazole [Protonix TAB] 40 mg PO BID #60 tab 11/03/20 Unknown Rx hydrALAZINE [Apresoline TAB] 100 mg PO TID #90 tab 11/03/20 Unknown Rx labetaloL [Labetalol 100mg TAB] 100 mg PO TID #90 tablet 11/03/20 Unknown Rx labetaloL [Labetalol 200mg TAB] 200 mg PO TID #90 tablet 11/03/20 Unknown Rx lisinopriL [Zestril TAB] 20 mg PO QHS #30 tablet 11/03/20 Unknown Rx oxyCODONE /ACETAMINOPHEN [Percocet 1 tab PO Q6H PRN #14 tablet 11/03/20 Unknown Rx 5/325 mg] Allergies Allergy/AdvReac Type Severity Reaction Status Date / Time No Known Allergies Allergy Verified 07/20/20 15:05 ED Review of Systems ROS: Stated complaint: DIALYSIS Other details as noted in HPI Comment: All other systems reviewed and negative Constitutional: denies: fever, malaise Respiratory: denies: cough Cardiovascular: denies: chest pain Gastrointestinal: denies: abdominal pain, nausea, vomiting ED Past Medical Hx - Past Medical History Previous Medical History?: Yes Hx Hypertension: Yes Hx Heart Attack/AMI: Yes (-NON STEMI ELEVATED MN) Hx Congestive Heart Failure: Yes Hx Diabetes: Yes (TYPE 11) Hx Deep Vein Thrombosis: No Hx Pulmonary Embolism: No Hx GERD: Yes Hx Liver Disease: No Hx Renal Disease: Yes Hx Sickle Cell Disease: No Hx Arthritis: Yes (BINTA. HANDS) Hx Headaches / Migraines: No Hx Seizures: No Hx Kidney Stones: No Hx Asthma: Yes Hx COPD: Yes Hx Tuberculosis: No Hx HIV: No Additional medical history: Ulcerative esophagitis, Gastroparesis HD MWF - Surgical History Past Surgical History?: Yes Hx Coronary Stent: No Hx Pacemaker: No Hx Internal Defibrillator: No Hx Cholecystectomy: Yes Hx Appendectomy: Yes Additional Surgical History: right great toe removed, Right chest PERMA-CATH - Social History Smoking Status: Never Smoker Substance Use Type: None - Medications Home Medications: Home Medications Medication Instructions Recorded Confirmed Last Taken Type Lispro Insulin [HumaLOG] 5 unit SQ AC #1 vial 04/17/20 10/27/20 09/05/20 17:00 Rx Ondansetron [Zofran ODT TAB] 4 mg PO Q8HR PRN #14 tab.rapdis 10/05/20 10/27/20 Unknown Rx Albuterol Sulfate [Albuterol 0.63% 0.63 mg IH BID PRN #60 vial 11/03/20 Unknown Rx NEBS] Insulin Detemir [Levemir Flextouch] 10 units SQ PC 30 Days 11/03/20 Unknown Rx Metoclopramide [Reglan TAB] 10 mg PO TID PRN #30 11/03/20 Unknown Rx NIFEdipine XL [Procardia Xl] 60 mg PO Q12HR #60 tablet 11/03/20 Unknown Rx Pantoprazole [Protonix TAB] 40 mg PO BID #60 tab 11/03/20 Unknown Rx hydrALAZINE [Apresoline TAB] 100 mg PO TID #90 tab 11/03/20 Unknown Rx labetaloL [Labetalol 100mg TAB] 100 mg PO TID #90 tablet 11/03/20 Unknown Rx labetaloL [Labetalol 200mg TAB] 200 mg PO TID #90 tablet 11/03/20 Unknown Rx lisinopriL [Zestril TAB] 20 mg PO QHS #30 tablet 11/03/20 Unknown Rx oxyCODONE /ACETAMINOPHEN [Percocet 1 tab PO Q6H PRN #14 tablet 11/03/20 Unknown Rx 5/325 mg] ED Physical Exam - General Limitations: No Limitations General appearance: alert, in no apparent distress, other (Appears chronically ill but no acute distress, speaking for sentences) - Head Head exam: Present: atraumatic, normocephalic - Eye Eye exam: Present: normal appearance - ENT ENT exam: Present: mucous membranes moist - Neck Neck exam: Present: normal inspection, full ROM - Respiratory Respiratory exam: Present: normal lung sounds bilaterally. Absent: respiratory distress, wheezes, rales, rhonchi - Cardiovascular Cardiovascular Exam: Present: regular rate, normal rhythm, normal heart sounds. Absent: systolic murmur, diastolic murmur, rubs, gallop - GI/Abdominal GI/Abdominal exam: Present: soft, normal bowel sounds. Absent: distended, tenderness, guarding, rebound - Rectal Rectal exam: Present: deferred - Back Exam Back exam: Present: normal inspection - Neurological Exam Neurological exam: Present: alert, oriented X3 - Psychiatric Psychiatric exam: Present: normal affect, normal mood - Skin Skin exam: Present: warm, dry, normal color, other (Left hand dorsal region: 3 cm chronic healing wound no surrounding cellulitis) ED Course Vital Signs 12/10/20 12/10/20 18:35 20:53 Temperature 98.2 F 98.6 F Pulse Rate 97 H 89 Respiratory 18 15 Rate Blood Pressure 180/119 Blood Pressure 216/114 [Right] O2 Sat by Pulse 98 98 Oximetry - Procedure Description Procedures done: Venous blood draw from permacath. [employer] attempted to obtain venous blood for lab evaluation on 3 different occasions. Due to poor vascular access, blood draw was unsuccessful. Under clean conditions, I obtained blood from permacath. I removed. I used alcohol wipe to clean the port. I wasted 5 cc of blood. I used sterile syringe to draw 7 mL of blood for lab evaluation. I ensured that the port was clear of air. I flushed the permacath. I ensured that the clamp was closed. ED Medical Decision Making - Lab Data Result diagrams: 12/10/20 20:38 12/10/20 20:38 - EKG Data -: EKG Interpreted by Me EKG shows normal: sinus rhythm, axis Rate: normal - EKG Data 12/10/20 23:37 EKG obtained 1853 Normal sinus rhythm rate 90 bpm normal axis prolonged QTC prolonged NH interval increased amplitude T waves no ST elevation - Radiology Data Radiology results: report reviewed, image reviewed Chest radiograph 2 views: Patchy bilateral airspace disease according to radiology impression - Medical Decision Making Uremic complications due to missed dialysis, noncompliance: Significant uremia with pulmonary edema hyperkalemia. Dr. Mendosa labourers arranged emergent dialysis. EKG did reveal peaked T waves in prolonged QTC. Patient also had prolonged NH interval on EKG. Hyperkalemia treatment initiated emergency department included: Sodium bicarbonate, calcium gluconate, insulin/dextrose, albuterol Critical Care Time: Yes Critical care time in (mins) excluding proc time.: 40 Critical care attestation.: If time is entered above; I have spent that time in minutes in the direct care of this critically ill patient, excluding procedure time. 40 minutes of critical care time excluding procedures were used in the care of the patient. I came immediately to the bedside upon patient's arrival to treatment room. I discussed treatment plan with the nursing team members. I reviewed electronic record. I was concerned for impending arrhythmia considering patient's EKG changes. Patient required multiple interventions and reassessments. I spoke with several consultants regarding patient's care including labourers and hospitalist. ED Disposition Clinical Impression: Acute hyperkalemia, End-stage renal disease needing dialysis, Uremia Disposition: OP ADMIT IP TO THIS HOSP Is pt being admited?: Yes Does the pt Need Aspirin: No
[2020-12-10] MEDS ORDERED: ALBUTEROL 2.5 MG/3 ML NEBU IH PRN (23:55)
[2020-12-11] MEDS: LISINOPRIL 20 MG TAB PO SCH (00:30)
[2020-12-11 01:09] LABS: Hepatitis B Surface Antigen Non-Reactive (Negative); Hepatitis C Virus Antibody Non-Reactive (NonReactive)
[2020-12-11] MEDS: NIFEdipine XL 60 MG TAB PO SCH ×3 (01:15→22:47)
[2020-12-11] MEDS: hydrALAZINE 100 MG TAB PO SCH ×4 (02:39→22:47)
[2020-12-11] MEDS ORDERED: SODIUM CHLORIDE 0.9% 500 ML 500 ML IV ONE ×2 (04:16→16:28)
[2020-12-11] MEDS: hydrALAZINE 20 MG/1 ML INJ IV PRN (05:07)
[2020-12-11 05:41] LABS: Basophils % (Auto) 0.4 % (0.0-1.8); Eosinophils # (Auto) 0.3 K/mm3 (0.0-0.4); Eosinophils % (Auto) 3.7 % (0.0-4.3); Hemoglobin 6.1 gm/dl (11.8-15.2); Lymphocytes # (Auto) 1.1 K/mm3 (1.2-5.4); Lymphocytes % (Auto) 15.7 % (13.4-35.0); Mean Corpuscular HGB Conc 33 % (32-34); Mean Corpuscular Volume 83 fl (84-94); Monocytes % (Auto) 14.2 % (0.0-7.3); Platelet Count 273 K/mm3 (140-440); Red Blood Count 2.24 M/mm3 (3.65-5.03)
[2020-12-11 05:48] LABS: Calcium 8.9 mg/dL (8.4-10.2)
[2020-12-11] MEDS: HEPARIN 5,000 UNIT/1 ML VIAL SUB-Q SCH ×3 (05:56→22:47)
[2020-12-11 05:58] LABS: Hematocrit 18.5 % (35.5-45.6)
[2020-12-11] MEDS: INSULIN LISPRO 100 UNIT/ML SUB-Q SCH ×4 (07:02→17:32)
[2020-12-11] MEDS: FAMOTIDINE 10 MG TAB PO SCH (09:50)
[2020-12-11] MEDS: INSULIN GLARGINE 100 UNITS/ML SUB-Q SCH (09:53)
[2020-12-11] MEDS ORDERED: NON-FORMULARY EACH (Insulin Detemir [Levemir Flextouch] 100 UNIT/ML Insuln.Pen) SQ SCH (10:00)
[2020-12-11] MEDS ORDERED: FAMOTIDINE 20 MG TAB PO SCH (10:00)
--- NOTE | 2020-12-11 10:30 | Progress Note ---
Assessment and Plan Assessment and plan: 35-year-old -[place] male with a past medical history of end-stage renal disease on hemodialysis, hypertension, diabetes mellitus type 2, insulin- dependent who presented to [facility] with shortness of breath secondary to missing dialysis. Plan: End-stage renal disease with fluid overload Nephrology consulted Emergent dialysis Patient will need transportation to dialysis clinic Normocytic anemia secondary to renal disease Hemoglobin 6.1 Transfuse 1 unit, recheck H&H Hyperkalemia Secondary to noncompliance with hemodialysis Resolved Diabetes mellitus type 2 Patient takes Levemir 10 units at bedtime and Humalog AC 4 to 5 units, continue insulin Hypertension Continue hydralazine, labetalol, nifedipine. GERD Famotidine CODE STATUS: Full DVT prophylaxis: Heparin Disposition: Continue inpatient care, blood transfusion, hemodialysis per nephrology recommendations. Case management consulted to determine and establish consistent hemodialysis outpatient care. History Interval history: No acute distress, no fevers chills, shortness of breath has resolved after dialysis. Pending blood transfusion. Patient asymptomatic, no confusion. Hospitalist Physical - Physical exam Narrative exam: General appearance: Present: no acute distress, well-nourished - EENT Eyes: Present: PERRL, EOM intact ENT: hearing intact, clear oral mucosa - Respiratory Respiratory effort: normal Respiratory: bilateral: CTA, negative: rales, rhonchi, wheezing - Cardiovascular Rhythm: regular Heart Sounds: Present: S1 & S2. Absent: rub, click - Extremities Extremities: no ischemia, No edema, normal temperature, normal color, Full ROM - Abdominal General gastrointestinal: non-tender, distended, soft, normal bowel sounds - Integumentary Integumentary: Present: clear, warm, dry, normal turgor - Neurologic Neurologic: CNII-XII intact, no focal deficits, moves all extremities - Constitutional Vitals: Temp Pulse Resp BP Pulse Ox 99.9 F H 104 H 20 164/86 98 12/11/20 07:45 12/11/20 08:25 12/11/20 08:25 12/11/20 07:45 12/11/20 08:25 Results - Labs CBC & Chem 7: 12/11/20 04:45 12/11/20 04:45 Labs: Laboratory Last Values WBC 7.1 K/mm3 (4.5-11.0) 12/11/20 04:45 RBC 2.24 M/mm3 (3.65-5.03) L 12/11/20 04:45 Hgb 6.1 gm/dl (11.8-15.2) L 12/11/20 04:45 Hct 18.5 % (35.5-45.6) L* 12/11/20 04:45 MCV 83 fl (84-94) L 12/11/20 04:45 MCH 27 pg (28-32) L 12/11/20 04:45 MCHC 33 % (32-34) 12/11/20 04:45 RDW 20.0 % (13.2-15.2) H 12/11/20 04:45 Plt Count 273 K/mm3 (140-440) 12/11/20 04:45 Lymph % (Auto) 15.7 % (13.4-35.0) 12/11/20 04:45 Atlantic % (Auto) 14.2 % (0.0-7.3) H 12/11/20 04:45 Eos % (Auto) 3.7 % (0.0-4.3) 12/11/20 04:45 Baso % (Auto) 0.4 % (0.0-1.8) 12/11/20 04:45 Lymph # (Auto) 1.1 K/mm3 (1.2-5.4) L 12/11/20 04:45 Atlantic # (Auto) 1.0 K/mm3 (0.0-0.8) H 12/11/20 04:45 Eos # (Auto) 0.3 K/mm3 (0.0-0.4) 12/11/20 04:45 Baso # (Auto) 0.0 K/mm3 (0.0-0.1) 12/11/20 04:45 Seg Neutrophils % 66.0 % (40.0-70.0) 12/11/20 04:45 Seg Neutrophils # 4.7 K/mm3 (1.8-7.7) 12/11/20 04:45 Sodium 139 mmol/L (137-145) 12/11/20 04:45 Potassium 4.7 mmol/L (3.6-5.0) D 12/11/20 04:45 Chloride 99.1 mmol/L (98-107) 12/11/20 04:45 Carbon Dioxide 23 mmol/L (22-30) 12/11/20 04:45 Anion Gap 22 mmol/L 12/11/20 04:45 BUN 80 mg/dL (9-20) H 12/11/20 04:45 Creatinine 10.0 mg/dL (0.8-1.3) H 12/11/20 04:45 Estimated GFR 7 ml/min 12/11/20 04:45 BUN/Creatinine Ratio 8 % 12/11/20 04:45 Glucose 104 mg/dL (75-100) H 12/11/20 04:45 POC Glucose 125 mg/dL (70-105) H 12/11/20 06:55 Calcium 8.9 mg/dL (8.4-10.2) 12/11/20 04:45 Total Bilirubin 0.30 mg/dL (0.1-1.2) 12/10/20 20:38 AST 23 units/L (5-40) 12/10/20 20:38 ALT 68 units/L (7-56) H 12/10/20 20:38 Alkaline Phosphatase 227 units/L (35-129) H 12/10/20 20:38 Total Protein 6.7 g/dL (6.3-8.2) 12/10/20 20:38 Albumin 3.9 g/dL (3.9-5) 12/10/20 20:38 Albumin/Globulin Ratio 1.4 % 12/10/20 20:38 Hepatitis A IgM Ab Non-reactive (NonReactive) 12/11/20 00:05 Hep Bs Antigen Non-reactive (Negative) 12/11/20 00:05 Hep B Core IgM Ab Non-reactive (NonReactive) 12/11/20 00:05 Hepatitis C Antibody Non-reactive (NonReactive) 12/11/20 00:05 Blood Type O POSITIVE 12/11/20 04:16 Antibody Screen Negative 12/11/20 04:16 Crossmatch See Detail 12/11/20 04:16 Perez/IV: Voiding Method Urinal Active Medications - Current Medications Current Medications: Generic Name Dose Route Start Last Admin Trade Name Freq PRN Reason Stop Dose Admin Acetaminophen 650 mg 12/10/20 22:56 Acetaminophen 325 Mg Tab PO Q6H PRN Pain MILD(1-3)/Fever >100.5/LANZA Albuterol 2.5 mg 12/10/20 23:55 12/11/20 08:25 Albuterol 2.5 Mg/3 Ml Nebu IH 2.5 mg BIDRT PRN Administration Wheezing Dextrose 50 ml 12/10/20 23:10 Dextrose 50% In Water (25gm) 50 Ml Syringe IV Q30MIN PRN Hypoglycemia Protocol Epoetin Wale 20,000 unit 12/10/20 22:41 Epoetin Wale 20,000 Unit/1 Ml Inj IV BRENDAN PRN hemodialysis Famotidine 10 mg 12/11/20 10:00 12/11/20 09:50 Famotidine 10 Mg Tab PO 10 mg BID KESHIA Administration Heparin Sodium (Porcine) 5,000 unit 12/11/20 06:00 12/11/20 05:56 Heparin 5,000 Unit/1 Ml Vial SUB-Q 5,000 unit Q8HR KESHIA Administration Hydralazine HCl 100 mg 12/11/20 01:15 12/11/20 09:50 Hydralazine 100 Mg Tab PO 100 mg TID KESHIA Administration Hydralazine HCl 10 mg 12/11/20 04:11 12/11/20 05:07 Hydralazine 20 Mg/1 Ml Inj IV 10 mg Q6HR PRN Administration Hypertension Sodium Chloride 100 mls @ 999 mls/hr 12/10/20 22:41 Nacl 0.9% IV BRENDAN PRN Hypotension Insulin Glargine 10 units 12/11/20 10:00 12/11/20 09:53 Insulin Glargine 100 Units/Ml SUB-Q 10 units QDAY KESHIA Administration Insulin Human Lispro 0 unit 12/11/20 00:00 12/11/20 07:16 Insulin Lispro 100 Unit/Ml SUB-Q Not Given Q6HR [facility] Protocol Labetalol HCl 100 mg 12/11/20 08:00 12/11/20 09:50 Labetalol 100 Mg Tab PO 100 mg TID KESHIA Administration Labetalol HCl 200 mg 12/11/20 08:00 12/11/20 09:50 Labetalol 200 Mg Tab PO 200 mg TID KESHIA Administration Lisinopril 20 mg 12/11/20 01:15 12/11/20 00:30 Lisinopril 20 Mg Tab PO 20 mg QHS KESHIA Administration Metoclopramide HCl 5 mg 12/10/20 23:52 Metoclopramide 10 Mg Tab PO TID PRN Nausea Nifedipine 60 mg 12/11/20 01:15 12/11/20 09:53 Nifedipine Xl 60 Mg Tab PO 60 mg Q12HR KESHIA Administration Ondansetron HCl 4 mg 12/10/20 22:56 Ondansetron 4 Mg/2 Ml Inj IV Q8H PRN Nausea And Vomiting Sodium Chloride 10 ml 12/11/20 10:00 12/11/20 09:50 Sodium Chloride 0.9% 10 Ml Flush Syringe IV 10 ml BID KESHIA Administration Sodium Chloride 10 ml 12/10/20 22:56 Sodium Chloride 0.9% 10 Ml Flush Syringe IV PRN PRN LINE FLUSH
--- NOTE | 2020-12-11 14:09 | Consultation ---
History of Present Illness - Reason for Consult end stage renal disease, hyperkalemia - History of Present Illness Mr. Eddy is a 35yo with ESRD on HD, hypertension and type II DM w/ gastroparesis who presented to the ED requestinig dialysis. He reports that he missed dialysis on Saturday due to lack of transportation. He reports that he last received dialysis on Saturday while hospitalized at . Labs at admission were notable for K 7.2. He is s/p emergent HD overnight. Past History Past Medical History: diabetes, ESRD, hypertension Social history: no significant social history Family history: no significant family history Medications and Allergies Allergies Allergy/AdvReac Type Severity Reaction Status Date / Time No Known Allergies Allergy Verified 07/20/20 15:05 Home Medications Medication Instructions Recorded Confirmed Last Taken Type Lispro Insulin [HumaLOG] 5 unit SQ AC #1 vial 04/17/20 12/11/20 09/05/20 17:00 Rx Ondansetron [Zofran ODT TAB] 4 mg PO Q8HR PRN #14 tab.rapdis 10/05/20 12/11/20 Unknown Rx Albuterol Sulfate [Albuterol 0.63% 0.63 mg IH BID PRN #60 vial 11/03/20 12/11/20 Unknown Rx NEBS] Insulin Detemir [Levemir Flextouch] 10 units SQ PC 30 Days 11/03/20 12/11/20 Unknown Rx Metoclopramide [Reglan TAB] 10 mg PO TID PRN #30 11/03/20 12/11/20 Unknown Rx NIFEdipine XL [Procardia Xl] 60 mg PO Q12HR #60 tablet 11/03/20 12/11/20 Unknown Rx Pantoprazole [Protonix TAB] 40 mg PO BID #60 tab 11/03/20 12/11/20 Unknown Rx hydrALAZINE [Apresoline TAB] 100 mg PO TID #90 tab 11/03/20 12/11/20 Unknown Rx labetaloL [Labetalol 100mg TAB] 100 mg PO TID #90 tablet 11/03/20 12/11/20 Unknown Rx labetaloL [Labetalol 200mg TAB] 200 mg PO TID #90 tablet 11/03/20 12/11/20 Unk nown Rx lisinopriL [Zestril TAB] 20 mg PO QHS #30 tablet 11/03/20 12/11/20 Unknown Rx oxyCODONE /ACETAMINOPHEN [Percocet 1 tab PO Q6H PRN #14 tablet 11/03/20 12/11/20 Unknown Rx 5/325 mg] Active Meds: Active Medications Acetaminophen (Acetaminophen 325 Mg Tab) 650 mg PO Q6H PRN PRN Reason: Pain MILD(1-3)/Fever >100.5/LANZA Albuterol (Albuterol 2.5 Mg/3 Ml Nebu) 2.5 mg IH BIDRT PRN PRN Reason: Wheezing Last Admin: 12/11/20 08:25 Dose: 2.5 mg Documented by: Dextrose (Dextrose 50% In Water (25gm) 50 Ml Syringe) 50 ml IV Q30MIN PRN; Protocol PRN Reason: Hypoglycemia Epoetin Wale (Epoetin Wale 20,000 Unit/1 Ml Inj) 20,000 unit IV BRENDAN PRN PRN Reason: hemodialysis Famotidine (Famotidine 10 Mg Tab) 10 mg PO BID [facility] Last Admin: 12/11/20 09:50 Dose: 10 mg Documented by: Heparin Sodium (Porcine) (Heparin 5,000 Unit/1 Ml Vial) 5,000 unit SUB-Q Q8HR [facility] Last Admin: 12/11/20 05:56 Dose: 5,000 unit Documented by: Hydralazine HCl (Hydralazine 100 Mg Tab) 100 mg PO TID [facility] Last Admin: 12/11/20 09:50 Dose: 100 mg Documented by: Hydralazine HCl (Hydralazine 20 Mg/1 Ml Inj) 10 mg IV Q6HR PRN PRN Reason: Hypertension Last Admin: 12/11/20 05:07 Dose: 10 mg Documented by: Sodium Chloride (Nacl 0.9%) 100 mls @ 999 mls/hr IV BRENDAN PRN PRN Reason: Hypotension Insulin Glargine (Insulin Glargine 100 Units/Ml) 10 units SUB-Q QDAY [facility] Last Admin: 12/11/20 09:53 Dose: 10 units Documented by: Insulin Human Lispro (Insulin Lispro 100 Unit/Ml) 0 unit SUB-Q Q6HR [facility]; Protocol Last Admin: 12/11/20 12:35 Dose: Not Given Documented by: Labetalol HCl (Labetalol 100 Mg Tab) 100 mg PO TID [facility] Last Admin: 12/11/20 09:50 Dose: 100 mg Documented by: Labetalol HCl (Labetalol 200 Mg Tab) 200 mg PO TID [facility] Last Admin: 12/11/20 09:50 Dose: 200 mg Documented by: Lisinopril (Lisinopril 20 Mg Tab) 20 mg PO QHS [facility] Last Admin: 12/11/20 00:30 Dose: 20 mg Documented by: Metoclopramide HCl (Metoclopramide 10 Mg Tab) 5 mg PO TID PRN PRN Reason: Nausea Nifedipine (Nifedipine Xl 60 Mg Tab) 60 mg PO Q12HR [facility] Last Admin: 12/11/20 09:53 Dose: 60 mg Documented by: Ondansetron HCl (Ondansetron 4 Mg/2 Ml Inj) 4 mg IV Q8H PRN PRN Reason: Nausea And Vomiting Sodium Chloride (Sodium Chloride 0.9% 10 Ml Flush Syringe) 10 ml IV BID [facility] Last Admin: 12/11/20 09:50 Dose: 10 ml Documented by: Sodium Chloride (Sodium Chloride 0.9% 10 Ml Flush Syringe) 10 ml IV PRN PRN PRN Reason: LINE FLUSH Review of Systems All systems: negative Exam - Vital Signs Vital signs: Vital Signs Temp Pulse Resp BP Pulse Ox 98.2 F 97 H 18 180/119 98 12/10/20 18:35 12/10/20 18:35 12/10/20 18:35 12/10/20 18:35 12/10/20 18:35 - General Appearance General appearance: well-developed, well-nourished EENT: ATNC Respiratory: Clear to Ascultation Heart: regular, S1S2 Gastrointestinal: Present: normal. Absent: tenderness Integumentary: warm and dry Musculoskeletal: Present: other (no edema) Psychiatric: cooperative Results - Lab Results 12/11/20 16:01 12/11/20 04:45 Most recent lab results Calcium 8.9 mg/dL (8.4-10.2) 12/11/20 04:45 Assessment and Plan Assessment: * End stage renal disease * Hyperkalemia, severe * Accelerated hypertension * Type II DM w/ diabetic gastroparesis * Anemia secondary to ESRD Plan: * Patient is s/p STAT HD overnight * Resume MWF schedule tomorrow * UF as tolerated * Dose medications for renal function * Epogen once BP controlled * Renal/HD diet * CM consulted to clarify outpatient dialysis transportation
[2020-12-11 16:09] LABS: Hematocrit 21.2 % (35.5-45.6)
[2020-12-12] MEDS: INSULIN LISPRO 100 UNIT/ML SUB-Q SCH ×4 (01:10→18:29)
[2020-12-12] MEDS ORDERED: SODIUM CHLORIDE 0.9% 500 ML 500 ML IV ONE (01:20)
[2020-12-12] MEDS: FAMOTIDINE 10 MG TAB PO SCH ×3 (03:38→22:04)
[2020-12-12] MEDS: LISINOPRIL 20 MG TAB PO SCH ×2 (03:38→22:07)
[2020-12-12] MEDS ORDERED: SODIUM CHLORIDE 0.9% 100 ML IV PRN (05:07)
[2020-12-12] MEDS: HEPARIN 5,000 UNIT/1 ML VIAL SUB-Q SCH ×3 (06:07→22:06)
[2020-12-12 10:02] LABS: Hemoglobin 7.6 gm/dl (11.8-15.2); Mean Corpuscular HGB Conc 33 % (32-34); Mean Corpuscular Volume 84 fl (84-94); Platelet Count 276 K/mm3 (140-440); Red Blood Count 2.75 M/mm3 (3.65-5.03); Red Cell Distribution Width 19.9 % (13.2-15.2)
[2020-12-12 10:12] LABS: Calcium 7.6 mg/dL (8.4-10.2)
[2020-12-12] MEDS: NIFEdipine XL 60 MG TAB PO SCH ×2 (14:35→22:04)
[2020-12-12] MEDS: hydrALAZINE 100 MG TAB PO SCH ×3 (14:39→22:05)
[2020-12-12] MEDS: INSULIN GLARGINE 100 UNITS/ML SUB-Q SCH (14:40)
[2020-12-12] MEDS: hydrALAZINE 20 MG/1 ML INJ IV PRN (17:16)
--- NOTE | 2020-12-12 17:49 | Progress Note ---
Assessment and Plan Assessment and plan: 35-year-old -[place] male with a past medical history of end-stage renal disease on hemodialysis, hypertension, diabetes mellitus type 2, insulin- dependent who presented to [facility] with shortness of breath secondary to missing dialysis. Plan: End-stage renal disease with fluid overload Nephrology consulted Emergent dialysis Patient will need transportation to dialysis clinic Covid test pending for outpatient dialysis clinic Normocytic anemia secondary to renal disease Hemoglobin 6.1 Status post transfusion 2 units Hemoglobin above 7, transfuse if it falls below Hyperkalemia Secondary to noncompliance with hemodialysis Resolved Diabetes mellitus type 2 Patient takes Levemir 10 units at bedtime and Humalog AC 4 to 5 units, continue insulin Hypertension Continue hydralazine, labetalol, nifedipine. GERD Famotidine CODE STATUS: Full DVT prophylaxis: Heparin Disposition: Continue inpatient care, Case management consulted to determine and establish consistent hemodialysis outpatient care, patient needs Covid test. History Interval history: Patient seen after dialysis, no complaints. No confusion. Hospitalist Physical - Physical exam Narrative exam: General appearance: Present: no acute distress, well-nourished - EENT Eyes: Present: PERRL, EOM intact ENT: hearing intact, clear oral mucosa - Respiratory Respiratory effort: normal Respiratory: bilateral: CTA, negative: rales, rhonchi, wheezing - Cardiovascular Rhythm: regular Heart Sounds: Present: S1 & S2. Absent: rub, click - Extremities Extremities: no ischemia, No edema, normal temperature, normal color, Full ROM - Abdominal General gastrointestinal: non-tender, distended, soft, normal bowel sounds - Integumentary Integumentary: Present: clear, warm, dry, normal turgor dry eschar on left dorsal wrist 1.0 cm - Neurologic Neurologic: CNII-XII intact, no focal deficits, moves all extremities - Constitutional Vitals: Temp Pulse Resp BP Pulse Ox 98.3 F 83 16 191/100 96 12/12/20 12:27 12/12/20 17:16 12/12/20 12:27 12/12/20 17:16 12/12/20 10:00 Results - Labs CBC & Chem 7: 12/12/20 09:38 12/12/20 04:00 Labs: Laboratory Last Values WBC 5.6 K/mm3 (4.5-11.0) 12/12/20 09:38 RBC 2.75 M/mm3 (3.65-5.03) L 12/12/20 09:38 Hgb 7.6 gm/dl (11.8-15.2) L 12/12/20 09:38 Hct 23.0 % (35.5-45.6) L 12/12/20 09:38 MCV 84 fl (84-94) 12/12/20 09:38 MCH 28 pg (28-32) 12/12/20 09:38 MCHC 33 % (32-34) 12/12/20 09:38 RDW 19.9 % (13.2-15.2) H 12/12/20 09:38 Plt Count 276 K/mm3 (140-440) 12/12/20 09:38 Lymph % (Auto) 15.7 % (13.4-35.0) 12/11/20 04:45 [place] % (Auto) 14.2 % (0.0-7.3) H 12/11/20 04:45 Eos % (Auto) 3.7 % (0.0-4.3) 12/11/20 04:45 Baso % (Auto) 0.4 % (0.0-1.8) 12/11/20 04:45 Lymph # (Auto) 1.1 K/mm3 (1.2-5.4) L 12/11/20 04:45 [place] # (Auto) 1.0 K/mm3 (0.0-0.8) H 12/11/20 04:45 Eos # (Auto) 0.3 K/mm3 (0.0-0.4) 12/11/20 04:45 Baso # (Auto) 0.0 K/mm3 (0.0-0.1) 12/11/20 04:45 Seg Neutrophils % 66.0 % (40.0-70.0) 12/11/20 04:45 Seg Neutrophils # 4.7 K/mm3 (1.8-7.7) 12/11/20 04:45 Sodium 139 mmol/L (137-145) 12/12/20 04:00 Potassium 5.2 mmol/L (3.6-5.0) H 12/12/20 04:00 Chloride 98.8 mmol/L (98-107) 12/12/20 04:00 Carbon Dioxide 26 mmol/L (22-30) 12/12/20 04:00 Anion Gap 19 mmol/L 12/12/20 04:00 BUN 77 mg/dL (9-20) H 12/12/20 04:00 Creatinine 10.2 mg/dL (0.8-1.3) H 12/12/20 04:00 Estimated GFR 7 ml/min 12/12/20 04:00 BUN/Creatinine Ratio 8 % 12/12/20 04:00 Glucose 99 mg/dL (75-100) 12/12/20 04:00 POC Glucose 136 mg/dL (70-105) H 12/12/20 16:40 Calcium 7.6 mg/dL (8.4-10.2) L 12/12/20 04:00 Total Bilirubin 0.30 mg/dL (0.1-1.2) 12/10/20 20:38 AST 23 units/L (5-40) 12/10/20 20:38 ALT 68 units/L (7-56) H 12/10/20 20:38 Alkaline Phosphatase 227 units/L (35-129) H 12/10/20 20:38 Total Protein 6.7 g/dL (6.3-8.2) 12/10/20 20:38 Albumin 3.9 g/dL (3.9-5) 12/10/20 20:38 Albumin/Globulin Ratio 1.4 % 12/10/20 20:38 Nasal Screen MRSA (PCR) Negative (Negative) 12/11/20 05:06 Hepatitis A IgM Ab Non-reactive (NonReactive) 12/11/20 00:05 Hep Bs Antigen Non-reactive (Negative) 12/11/20 00:05 Hep B Core IgM Ab Non-reactive (NonReactive) 12/11/20 00:05 Hepatitis C Antibody Non-reactive (NonReactive) 12/11/20 00:05 Blood Type O POSITIVE 12/11/20 04:16 Antibody Screen Negative 12/11/20 04:16 Crossmatch See Detail 12/11/20 04:16 Perez/IV: Voiding Method Urinal Active Medications - Current Medications Current Medications: Generic Name Dose Route Start Last Admin Trade Name Freq PRN Reason Stop Dose Admin Acetaminophen 650 mg 12/10/20 22:56 12/11/20 22:59 Acetaminophen 325 Mg Tab PO 650 mg Q6H PRN Administration Pain MILD(1-3)/Fever >100.5/LANZA Albuterol 2.5 mg 12/10/20 23:55 12/11/20 08:25 Albuterol 2.5 Mg/3 Ml Nebu IH 2.5 mg BIDRT PRN Administration Wheezing Dextrose 50 ml 12/10/20 23:10 Dextrose 50% In Water (25gm) 50 Ml Syringe IV Q30MIN PRN Hypoglycemia Protocol Epoetin Wale 20,000 unit 12/10/20 22:41 Epoetin Wale 20,000 Unit/1 Ml Inj IV BRENDAN PRN hemodialysis Famotidine 10 mg 12/11/20 10:00 12/12/20 14:35 Famotidine 10 Mg Tab PO 10 mg BID KESHIA Administration Heparin Sodium (Porcine) 5,000 unit 12/11/20 06:00 12/12/20 14:37 Heparin 5,000 Unit/1 Ml Vial SUB-Q 5,000 unit Q8HR KESHIA Administration Hydralazine HCl 100 mg 12/11/20 01:15 12/12/20 14:42 Hydralazine 100 Mg Tab PO 100 mg TID KESHIA Administration Hydralazine HCl 10 mg 12/11/20 04:11 12/12/20 17:16 Hydralazine 20 Mg/1 Ml Inj IV 10 mg Q6HR PRN Administration Hypertension;SBP > 160 Sodium Chloride 100 mls @ 999 mls/hr 12/12/20 05:07 Nacl 0.9% IV BRENDAN PRN Hypotension Insulin Glargine 10 units 12/11/20 10:00 12/12/20 14:40 Insulin Glargine 100 Units/Ml SUB-Q Not Given QDAY [facility] Insulin Human Lispro 0 unit 12/11/20 00:00 12/12/20 14:37 Insulin Lispro 100 Unit/Ml SUB-Q Not Given Q6HR [facility] Protocol Labetalol HCl 100 mg 12/11/20 08:00 12/12/20 14:42 Labetalol 100 Mg Tab PO 100 mg TID KESHIA Administration Labetalol HCl 200 mg 12/11/20 08:00 12/12/20 14:41 Labetalol 200 Mg Tab PO 200 mg TID KESHIA Administration Lisinopril 20 mg 12/11/20 01:15 12/12/20 03:38 Lisinopril 20 Mg Tab PO 20 mg QHS KESHIA Administration Metoclopramide HCl 5 mg 12/10/20 23:52 Metoclopramide 10 Mg Tab PO TID PRN Nausea Nifedipine 60 mg 12/11/20 01:15 12/12/20 14:35 Nifedipine Xl 60 Mg Tab PO 60 mg Q12HR KESHIA Administration Ondansetron HCl 4 mg 12/10/20 22:56 Ondansetron 4 Mg/2 Ml Inj IV Q8H PRN Nausea And Vomiting Sodium Chloride 10 ml 12/11/20 10:00 12/12/20 14:38 Sodium Chloride 0.9% 10 Ml Flush Syringe IV 10 ml BID KESHIA Administration Sodium Chloride 10 ml 12/10/20 22:56 Sodium Chloride 0.9% 10 Ml Flush Syringe IV PRN PRN LINE FLUSH Nutrition/Malnutrition Assess - Dietary Evaluation Nutrition/Malnutrition Findings: Nutrition Notes Start: 12/11/20 11:11 Freq: Status: Active Protocol: Document 12/11/20 11:11 LM (Rec: 12/11/20 11:14 LM [id number]) Nutrition Notes Need for Assessment generated from: MD Order Initial or Follow up Brief Note Subjective/Other Information MD consult for diet education. Pt has a good appetite and ate 100% of breakfast. Pt did not want diet education at this time. Nutrition Intervention Revisit per MD consult or patient Sign Off request:
--- NOTE | 2020-12-12 19:05 | Progress Note ---
Assessment and Plan Assessment: * End stage renal disease * Hyperkalemia, severe * Accelerated hypertension * Type II DM w/ diabetic gastroparesis * Anemia secondary to ESRD Plan: * Patient is s/p STAT HD on admission * Continue MWF * UF as tolerated * Dose medications for renal function * Epogen once BP controlled * Renal/HD diet * CM consulted to clarify outpatient dialysis transportation Subjective Date of service: 12/12/20 Principal diagnosis: Hyperkalemia Interval history: Patient was seen for his renal issues Nursing, interdisciplinary and consult notes were reviewed Vitals, input and output, medications and labs were reviewed Tolerating dialysis without complications Objective - Exam Narrative Exam: General: No acute distress HEENT: Oral mucosa moist Neck: Supple, no JVD Chest: Clear to auscultation bilaterally Heart: RRR, S1 and S2, no pericardial rub Abdomen: Soft, nontender, no renal bruit Extremity: No peripheral cyanosis, edema Neurological: Alert, awake, no asterixis Dermatology: Eschar on hand noted Psych: No agitation Musculoskeletal: No joint effusion - Vital Signs Vital signs: Vital Signs - 12hr 12/12/20 12/12/20 12/12/20 08:45 08:50 09:00 Temperature 98.3 F Pulse Rate 85 85 83 Respiratory 16 Rate Blood Pressure 183/97 183/97 180/98 O2 Sat by Pulse Oximetry 12/12/20 12/12/20 12/12/20 09:15 09:30 09:45 Temperature Pulse Rate 85 83 80 Respiratory Rate Blood Pressure 171/80 181/98 177/97 O2 Sat by Pulse Oximetry 12/12/20 12/12/20 12/12/20 10:00 10:15 10:30 Temperature Pulse Rate 79 83 82 Respiratory Rate Blood Pressure 186/91 178/91 164/88 O2 Sat by Pulse 96 Oximetry 12/12/20 12/12/20 12/12/20 10:45 11:00 11:15 Temperature Pulse Rate 85 85 83 Respiratory Rate Blood Pressure 171/91 172/91 181/96 O2 Sat by Pulse Oximetry 12/12/20 12/12/20 12/12/20 11:30 11:45 12:00 Temperature Pulse Rate 85 86 86 Respiratory Rate Blood Pressure 170/93 156/89 156/84 O2 Sat by Pulse Oximetry 12/12/20 12/12/20 12/12/20 12:15 12:27 14:41 Temperature 98.3 F Pulse Rate 57 L 87 83 Respiratory 16 Rate Blood Pressure 178/62 155/81 145/85 O2 Sat by Pulse Oximetry 12/12/20 12/12/20 14:42 17:16 Temperature Pulse Rate 83 83 Respiratory Rate Blood Pressure 145/85 191/100 O2 Sat by Pulse Oximetry - Lab 12/12/20 09:38 12/12/20 04:00 Most recent lab results Calcium 7.6 mg/dL (8.4-10.2) L 12/12/20 04:00 Medications & Allergies - Medications Allergies/Adverse Reactions: Allergies No Known Allergies Allergy (Verified 07/20/20 15:05) Home Medications: Home Medications Medication Instructions Recorded Confirmed Last Taken Type Lispro Insulin [HumaLOG] 5 unit SQ AC #1 vial 04/17/20 12/11/20 09/05/20 17:00 Rx Ondansetron [Zofran ODT TAB] 4 mg PO Q8HR PRN #14 tab.rapdis 10/05/20 12/11/20 Unknown Rx Albuterol Sulfate [Albuterol 0.63% 0.63 mg IH BID PRN #60 vial 11/03/20 12/11/20 Unknown Rx NEBS] Insulin Detemir [Levemir Flextouch] 10 units SQ PC 30 Days 11/03/20 12/11/20 Unknown Rx Metoclopramide [Reglan TAB] 10 mg PO TID PRN #30 11/03/20 12/11/20 Unknown Rx NIFEdipine XL [Procardia Xl] 60 mg PO Q12HR #60 tablet 11/03/20 12/11/20 Unknown Rx Pantoprazole [Protonix TAB] 40 mg PO BID #60 tab 11/03/20 12/11/20 Unknown Rx hydrALAZINE [Apresoline TAB] 100 mg PO TID #90 tab 11/03/20 12/11/20 Unknown Rx labetaloL [Labetalol 100mg TAB] 100 mg PO TID #90 tablet 11/03/20 12/11/20 Unknown Rx labetaloL [Labetalol 200mg TAB] 200 mg PO TID #90 tablet 11/03/20 12/11/20 Unknown Rx lisinopriL [Zestril TAB] 20 mg PO QHS #30 tablet 11/03/20 12/11/20 Unknown Rx oxyCODONE /ACETAMINOPHEN [Percocet 1 tab PO Q6H PRN #14 tablet 11/03/20 12/11/20 Unknown Rx 5/325 mg] Active Medications: Generic Name Dose Route Start Last Admin Trade Name Freq PRN Reason Stop Dose Admin Acetaminophen 650 mg 12/10/20 22:56 12/11/20 22:59 Acetaminophen 325 Mg Tab PO 650 mg Q6H PRN Administration Pain MILD(1-3)/Fever >100.5/LANZA Albuterol 2.5 mg 12/10/20 23:55 12/11/20 08:25 Albuterol 2.5 Mg/3 Ml Nebu IH 2.5 mg BIDRT PRN Administration Wheezing Dextrose 50 ml 12/10/20 23:10 Dextrose 50% In Water (25gm) 50 Ml Syringe IV Q30MIN PRN Hypoglycemia Protocol Epoetin Wale 20,000 unit 12/10/20 22:41 Epoetin Wale 20,000 Unit/1 Ml Inj IV BRENDAN PRN hemodialysis Famotidine 10 mg 12/11/20 10:00 12/12/20 14:35 Famotidine 10 Mg Tab PO 10 mg BID KESHIA Administration Heparin Sodium (Porcine) 5,000 unit 12/11/20 06:00 12/12/20 14:37 Heparin 5,000 Unit/1 Ml Vial SUB-Q 5,000 unit Q8HR KESHIA Administration Hydralazine HCl 100 mg 12/11/20 01:15 12/12/20 14:42 Hydralazine 100 Mg Tab PO 100 mg TID KESHIA Administration Hydralazine HCl 10 mg 12/11/20 04:11 12/12/20 17:16 Hydralazine 20 Mg/1 Ml Inj IV 10 mg Q6HR PRN Administration Hypertension;SBP > 160 Sodium Chloride 100 mls @ 999 mls/hr 12/12/20 05:07 Nacl 0.9% IV BRENDAN PRN Hypotension Insulin Glargine 10 units 12/11/20 10:00 12/12/20 14:40 Insulin Glargine 100 Units/Ml SUB-Q Not Given QDAY [facility] Insulin Human Lispro 0 unit 12/11/20 00:00 12/12/20 18:29 Insulin Lispro 100 Unit/Ml SUB-Q Not Given Q6HR [facility] Protocol Labetalol HCl 100 mg 12/11/20 08:00 12/12/20 14:42 Labetalol 100 Mg Tab PO 100 mg TID KESHIA Administration Labetalol HCl 200 mg 12/11/20 08:00 12/12/20 14:41 Labetalol 200 Mg Tab PO 200 mg TID KESHIA Administration Lisinopril 20 mg 12/11/20 01:15 12/12/20 03:38 Lisinopril 20 Mg Tab PO 20 mg QHS KESHIA Administration Metoclopramide HCl 5 mg 12/10/20 23:52 Metoclopramide 10 Mg Tab PO TID PRN Nausea Nifedipine 60 mg 12/11/20 01:15 12/12/20 14:35 Nifedipine Xl 60 Mg Tab PO 60 mg Q12HR KESHIA Administration Ondansetron HCl 4 mg 12/10/20 22:56 12/12/20 18:32 Ondansetron 4 Mg/2 Ml Inj IV 4 mg Q8H PRN Administration Nausea And Vomiting Sodium Chloride 10 ml 12/11/20 10:00 12/12/20 14:38 Sodium Chloride 0.9% 10 Ml Flush Syringe IV 10 ml BID KESHIA Administration Sodium Chloride 10 ml 12/10/20 22:56 Sodium Chloride 0.9% 10 Ml Flush Syringe IV PRN PRN LINE FLUSH
[2020-12-13] MEDS: INSULIN LISPRO 100 UNIT/ML SUB-Q SCH ×3 (05:02→13:09)
[2020-12-13] MEDS: HEPARIN 5,000 UNIT/1 ML VIAL SUB-Q SCH ×2 (05:18→15:07)
[2020-12-13 08:40] LABS: Hematocrit 22.9 % (35.5-45.6); Hemoglobin 7.7 gm/dl (11.8-15.2); Mean Corpuscular HGB Conc 34 % (32-34); Mean Corpuscular Volume 84 fl (84-94); Platelet Count 265 K/mm3 (140-440); Red Blood Count 2.74 M/mm3 (3.65-5.03); Red Cell Distribution Width 19.4 % (13.2-15.2)
[2020-12-13 08:42] VITALS: BP 131/72
[2020-12-13 08:51] LABS: Calcium 8.1 mg/dL (8.4-10.2)
[2020-12-13] MEDS: hydrALAZINE 100 MG TAB PO SCH ×2 (08:52→15:09)
[2020-12-13] MEDS ORDERED: SODIUM POLYSTYRENE 15 GM/60 ML ORAL LIQD PO NR (09:42)
--- NOTE | 2020-12-13 09:47 | Discharge Summary ---
Providers - Providers Date of Admission: 12/12/20 08:52 Attending physician: BERNARDINO PHAN MD 12/10/20 22:34 Consult to Physician [CONS] Stat Comment: Dr. Weller spoke with Dr. Mendosa @ 1845 Consulting Provider: NYA MENDOSA Physician Instructions: Reason For Exam: ESRD on HD 12/10/20 22:57 Consult to Dietitian/Nutrition [CONS] Routine Physician Instructions: Reason For Exam: Reason for Consult: Diet education 12/11/20 07:06 Consult to Wound/ET Nurse [CONS] Routine Reason For Exam: wound eval 12/11/20 16:24 Consult to Case Management [CONS] Routine Services Needed at Discharge: Other Notified:: pending Additional Physician Instructions: make sure pt has transportation to dialysis Primary care physician: [employer] Hospitalization Condition: Stable Hospital course: 35-year-old -[place] male with a past medical history of end-stage renal disease on hemodialysis, hypertension, diabetes mellitus type 2, insulin- dependent who presented to [facility] with shortness of breath secondary to missing dialysis. 2/: Patient continues to do well clinically and is stable for discharge, also wants to go home. He states that he was recently set up for 3 weeks to undergo dialysis at a [place] [facility] He refused to do covid 19 test as requested by the old dialysis center since he feels that after 3 weeks at this [place] [facility] he will need to do it again. He states that he has been in contact with [place] and they have arranged transportation to this new center. Plan: End-stage renal disease with fluid overload Nephrology consulted Emergent dialysis Patient will need transportation to dialysis clinic Covid test pending for outpatient dialysis clinic Normocytic anemia secondary to renal disease Hemoglobin 6.1 Status post transfusion 2 units Hemoglobin above 7, transfuse if it falls below Hyperkalemia Secondary to noncompliance with hemodialysis Resolved Diabetes mellitus type 2 Patient takes Levemir 10 units at bedtime and Humalog AC 4 to 5 units, continue insulin Hypertension Continue hydralazine, labetalol, nifedipine. GERD Famotidine CODE STATUS: Full DVT prophylaxis: Heparin Disposition: Continue inpatient care, Case management consulted to determine and establish consistent hemodialysis outpatient care, patient needs Covid test. Disposition: TO HOME OR SELFCARE Time spent for discharge: 35 MINS Exam - Constitutional Vitals: Temp Pulse Resp BP Pulse Ox 98.2 F 84 18 131/72 94 12/13/20 08:08 12/13/20 08:08 12/13/20 08:08 12/13/20 08:53 12/13/20 08:59 Plan Activity: advance as tolerated, fall precautions Diet: diabetic, renal Special Instructions: record daily weights, record daily BP diary, record blood sugar diary Follow up with: PRIMARY MD ISABEL [Primary Care Provider] - 7 Days NYA MENDOSA MD [Staff Physician] - 7 Days
[2020-12-13] MEDS: FAMOTIDINE 10 MG TAB PO SCH (10:43)
[2020-12-13] MEDS: NIFEdipine XL 60 MG TAB PO SCH (10:43)
[2020-12-13] MEDS: INSULIN GLARGINE 100 UNITS/ML SUB-Q SCH (10:43)
--- NOTE | 2020-12-13 19:00 | Progress Note ---
Assessment and Plan Assessment: * End stage renal disease * Hyperkalemia, severe * Accelerated hypertension * Type II DM w/ diabetic gastroparesis * Anemia secondary to ESRD Plan: * Patient is s/p STAT HD on admission * Continue MWF * UF as tolerated * Dose medications for renal function * Epogen once BP controlled * Renal/HD diet * Counseled on importamce of OPdialysis adherence * CM consulted to clarify outpatient dialysis transportation Subjective Date of service: 12/13/20 Principal diagnosis: Hyperkalemia Interval history: Patient was seen for his renal issues Tolerated dialysis without complications yesterday Nursing, interdisciplinary and consult notes were reviewed Vitals, input and output, medications and labs were reviewed Tolerating dialysis without complications Objective - Exam Narrative Exam: General: No acute distress HEENT: Oral mucosa moist Neck: Supple, no JVD Chest: Clear to auscultation bilaterally Heart: RRR, S1 and S2, no pericardial rub Abdomen: Soft, nontender, no renal bruit Extremity: No peripheral cyanosis, edema Neurological: Alert, awake, no asterixis Dermatology: Eschar on hand noted Psych: No agitation Musculoskeletal: No joint effusion - Vital Signs Vital signs: Vital Signs - 12hr 12/13/20 12/13/20 12/13/20 08:08 08:52 08:53 Temperature 98.2 F Pulse Rate 84 Respiratory 18 Rate Blood Pressure 131/72 131/72 131/72 O2 Sat by Pulse 91 Oximetry 12/13/20 12/13/20 12/13/20 08:59 10:00 14:00 Temperature Pulse Rate 84 Respiratory Rate Blood Pressure O2 Sat by Pulse 94 97 Oximetry - Lab 12/13/20 08:12 12/13/20 08:12 Most recent lab results Calcium 8.1 mg/dL (8.4-10.2) L 12/13/20 08:12 Medications & Allergies - Medications Allergies/Adverse Reactions: Allergies No Known Allergies Allergy (Verified 07/20/20 15:05) Home Medications: Home Medications Medication Instructions Recorded Confirmed Last Taken Type Lispro Insulin [HumaLOG] 5 unit SQ AC #1 vial 04/17/20 12/11/20 09/05/20 17:00 Rx Ondansetron [Zofran ODT TAB] 4 mg PO Q8HR PRN #14 tab.rapdis 10/05/20 12/11/20 Unknown Rx Albuterol Sulfate [Albuterol 0.63% 0.63 mg IH BID PRN #60 vial 11/03/20 12/11/20 Unknown Rx NEBS] Insulin Detemir [Levemir Flextouch] 10 units SQ PC 30 Days 11/03/20 12/11/20 Unknown Rx Metoclopramide [Reglan TAB] 10 mg PO TID PRN #30 11/03/20 12/11/20 Unknown Rx NIFEdipine XL [Procardia Xl] 60 mg PO Q12HR #60 tablet 11/03/20 12/11/20 Unknown Rx Pantoprazole [Protonix TAB] 40 mg PO BID #60 tab 11/03/20 12/11/20 Unknown Rx hydrALAZINE [Apresoline TAB] 100 mg PO TID #90 tab 11/03/20 12/11/20 Unknown Rx labetaloL [Labetalol 100mg TAB] 100 mg PO TID #90 tablet 11/03/20 12/11/20 Unknown Rx labetaloL [Labetalol 200mg TAB] 200 mg PO TID #90 tablet 11/03/20 12/11/20 Unknown Rx lisinopriL [Zestril TAB] 20 mg PO QHS #30 tablet 11/03/20 12/11/20 Unknown Rx oxyCODONE /ACETAMINOPHEN [Percocet 1 tab PO Q6H PRN #14 tablet 11/03/20 12/11/20 Unknown Rx 5/325 mg]
== END 2020-12-13 18:20 | disposition home or self-care (01) | DRG 640 ==
LOC: ED 18:15 → 4A 22:42 → OBSVTOIN 12-12 08:52
PROVIDERS: ADMIT Hospitalist; ATTEND Internal Medicine
PROC: 5A1D70Z Performance of Urinary Filtration, Intermittent, Less than 6 Hours Per Day (ICD-10-PCS; 2020-12-10)
PROC: 30233N1 Transfusion of Nonautologous Red Blood Cells into Peripheral Vein, Percutaneous Approach (ICD-10-PCS; principal; 2020-12-11)
PROC: 5A1D70Z Performance of Urinary Filtration, Intermittent, Less than 6 Hours Per Day (ICD-10-PCS; 2020-12-11)
PROC: 5A1D70Z Performance of Urinary Filtration, Intermittent, Less than 6 Hours Per Day (ICD-10-PCS; 2020-12-12)
DX: E87.5 Hyperkalemia (principal); N18.6 End stage renal disease; I13.2 Hypertensive heart and chronic kidney disease with heart failure and with stage 5 chronic kidney disease, or end stage renal disease; E11.22 Type 2 diabetes mellitus with diabetic chronic kidney disease; E87.70 Fluid overload, unspecified; K21.9 Gastro-esophageal reflux disease without esophagitis; D63.1 Anemia in chronic kidney disease; E11.43 Type 2 diabetes mellitus with diabetic autonomic (poly)neuropathy; K31.84 Gastroparesis; Z79.899 Other long term (current) drug therapy
CPT/HCPCS: 36415; 71046; 80048; 80053; 80074; 82962; 85014; 85018; 85025; 85027; 86850; 86900; 86901; 86920; 87641; 94640; G0378; J0360; J0610; J1644; J1815; J2405; J7040; P9016

== ENCOUNTER 2020-12-16 19:17 | Inpatient (IN) | payer MEDICARE ==
[2020-12-16 20:51] LABS: Basophils # (Auto) 0.1 K/mm3 (0.0-0.1); Basophils % (Auto) 0.8 % (0.0-1.8); Eosinophils % (Auto) 0.2 % (0.0-4.3); Hematocrit 29.5 % (35.5-45.6); Hemoglobin 9.7 gm/dl (11.8-15.2); Lymphocytes # (Auto) 1.1 K/mm3 (1.2-5.4); Lymphocytes % (Auto) 10.8 % (13.4-35.0); Mean Corpuscular HGB Conc 33 % (32-34); Mean Corpuscular Volume 86 fl (84-94); Monocytes # (Auto) 0.9 K/mm3 (0.0-0.8); Monocytes % (Auto) 8.8 % (0.0-7.3); Platelet Count 315 K/mm3 (140-440); Red Blood Count 3.44 M/mm3 (3.65-5.03)
[2020-12-16 21:04] LABS: Red Cell Distribution Width 20.2 % (13.2-15.2)
[2020-12-16 21:27] LABS: Albumin 4.3 g/dL (3.9-5); Calcium 7.6 mg/dL (8.4-10.2)
[2020-12-16] MEDS ORDERED: CALCIUM CHLORIDE 1,000 MG/10 ML SYRINGE IV ONE (21:40)
[2020-12-16] MEDS ORDERED: HYDROmorphone 1 MG/1 ML INJ IV ONE (21:40)
[2020-12-16] MEDS ORDERED: DEXTROSE 50% IN WATER (25GM) 50 ML SYRINGE IV ONE (21:40)
[2020-12-16] MEDS ORDERED: ONDANSETRON 4 MG/2 ML INJ IV ONE (21:40)
[2020-12-16] MEDS ORDERED: INSULIN REGULAR, HUMAN 100 UNITS/1 ML IV ONE (21:40)
--- NOTE | 2020-12-16 21:45 | Emergency Department Report ---
ED Chest Pain HPI - General Chief Complaint: Nausea/Vomiting/Diarrhea Stated Complaint: CHEST PAIN/ABD PAIN PUI?: No Time Seen by Provider: 12/16/20 21:15 Source: patient Mode of arrival: Ambulatory Limitations: No Limitations - History of Present Illness Initial Comments: Patient is a 35-year-old male that presents emergency room with complaints of abdominal pain, lower chest pain, nausea, vomiting, coffee-ground emesis. Pat ient states his symptoms started 3 days ago. Patient states that his symptoms are worsening. Patient states he is on dialysis but misses dialysis for the past 2 sessions. Patient states his last treatment was Saturday. Patient states he goes Saturday, Saturday, Saturday. Patient states that his epigastric pain is a 10 out of 10. Patient states his lower chest pain is a 10 out of 10. Patient states his chest pain and epigastric pain are better with rest. Patient states his chest pain and epigastric pain are worse with movement, palpation and vomiting. Patient states he is unable to hold anything down. Patient states he has had this many times in the past. Patient has had multiple visits his ER. Patient's prior ER records were reviewed. Patient denies recent travel. Patient denies recent international travel. Patient denies exposure to the novel coronavirus. Patient denies sick contacts. Patient denies fever and chills. Patient denies cough. Patient denies diarrhea. Patient denies coming in contact with anybody with symptoms of the novel coronavirus. MD Complaint: chest pain, other (abd pain) -: Sudden, days(s) Onset: during rest Pain Location: epigastric Pain Radiation: abdomen, other Severity: severe Severity scale (0 -10): 10 Quality: sharp Consistency: constant Improves With: rest Worsens With: palpation, movement, other (vomiting) re: nausea, vomting. denies: diaphoresis, dyspnea, sense of impending doom Other Symptoms: burping. denies: cough, fever, syncope, rash, acid taste in mouth, leg swelling, palpitations Treatments Prior to Arrival: none Aspirin use within the Past 7 Days: (1) Yes - Related Data On Oral Contraceptives: No Previous Rx's Medication Instructions Recorded Last Taken Type Lispro Insulin [HumaLOG] 5 unit SQ AC #1 vial 04/17/20 09/05/20 17:00 Rx Ondansetron [Zofran ODT TAB] 4 mg PO Q8HR PRN #14 tab.rapdis 10/05/20 Unknown Rx Albuterol Sulfate [Albuterol 0.63% 0.63 mg IH BID PRN #60 vial 11/03/20 Unknown Rx NEBS] Insulin Detemir [Levemir Flextouch] 10 units SQ PC 30 Days 11/03/20 Unknown Rx Metoclopramide [Reglan TAB] 10 mg PO TID PRN #30 11/03/20 Unknown Rx NIFEdipine XL [Procardia Xl] 60 mg PO Q12HR #60 tablet 11/03/20 Unknown Rx Pantoprazole [Protonix TAB] 40 mg PO BID #60 tab 11/03/20 Unknown Rx hydrALAZINE [Apresoline TAB] 100 mg PO TID #90 tab 11/03/20 Unknown Rx labetaloL [Labetalol 100mg TAB] 100 mg PO TID #90 tablet 11/03/20 Unknown Rx labetaloL [Labetalol 200mg TAB] 200 mg PO TID #90 tablet 11/03/20 Unknown Rx lisinopriL [Zestril TAB] 20 mg PO QHS #30 tablet 11/03/20 Unknown Rx oxyCODONE /ACETAMINOPHEN [Percocet 1 tab PO Q6H PRN #14 tablet 11/03/20 Unknown Rx 5/325 mg] Allergies Allergy/AdvReac Type Severity Reaction Status Date / Time No Known Allergies Allergy Verified 07/20/20 15:05 Heart Score - HEART Score History: Slightly suspicious EKG: Normal Age: < 45 Risk factors: > 3 risk factors or hx of atherosclerotic disease Troponin: > 3x normal limit HEART Score: 4 ED Review of Systems ROS: Stated complaint: CHEST PAIN/ABD PAIN Other details as noted in HPI Constitutional: denies: chills, fever Eyes: denies: eye pain, eye discharge, vision change ENT: denies: ear pain, throat pain Respiratory: denies: cough, shortness of breath, wheezing Cardiovascular: chest pain. denies: palpitations Endocrine: no symptoms reported Gastrointestinal: abdominal pain, nausea, vomiting, hematemesis. denies: diarrhea, constipation, melena, hematochezia Genitourinary: denies: urgency, dysuria Musculoskeletal: denies: back pain, joint swelling, arthralgia Skin: denies: rash, lesions Neurological: denies: headache, weakness, paresthesias Psychiatric: denies: anxiety, depression Hematological/Lymphatic: denies: easy bleeding, easy bruising ED Past Medical Hx - Past Medical History Previous Medical History?: Yes Hx Hypertension: Yes Hx Heart Attack/AMI: Yes (-NON STEMI ELEVATED ME) Hx Congestive Heart Failure: Yes Hx Diabetes: Yes (TYPE 11) Hx Deep Vein Thrombosis: No Hx Pulmonary Embolism: No Hx GERD: Yes Hx Liver Disease: No Hx Renal Disease: Yes Hx Sickle Cell Disease: No Hx Arthritis: Yes (BINTA. HANDS) Hx Headaches / Migraines: No Hx Seizures: No Hx Kidney Stones: No Hx Asthma: Yes Hx COPD: Yes Hx Tuberculosis: No Hx HIV: No Additional medical history: Ulcerative esophagitis, Gastroparesis HD MWF - Surgical History Past Surgical History?: Yes Hx Coronary Stent: No Hx Pacemaker: No Hx Internal Defibrillator: No Hx Cholecystectomy: Yes Hx Appendectomy: Yes Additional Surgical History: right great toe removed, Right chest PERMA-CATH - Family History Family history: no significant - Social History Smoking Status: Never Smoker Substance Use Type: Alcohol - Medications Home Medications: Home Medications Medication Instructions Recorded Confirmed Last Taken Type Lispro Insulin [HumaLOG] 5 unit SQ AC #1 vial 04/17/20 12/11/20 09/05/20 17:00 Rx Ondansetron [Zofran ODT TAB] 4 mg PO Q8HR PRN #14 tab.rapdis 10/05/20 12/11/20 Unknown Rx Albuterol Sulfate [Albuterol 0.63% 0.63 mg IH BID PRN #60 vial 11/03/20 12/11/20 Unknown Rx NEBS] Insulin Detemir [Levemir Flextouch] 10 units SQ PC 30 Days 11/03/20 12/11/20 Un known Rx Metoclopramide [Reglan TAB] 10 mg PO TID PRN #30 11/03/20 12/11/20 Unknown Rx NIFEdipine XL [Procardia Xl] 60 mg PO Q12HR #60 tablet 11/03/20 12/11/20 Unknown Rx Pantoprazole [Protonix TAB] 40 mg PO BID #60 tab 11/03/20 12/11/20 Unknown Rx hydrALAZINE [Apresoline TAB] 100 mg PO TID #90 tab 11/03/20 12/11/20 Unknown Rx labetaloL [Labetalol 100mg TAB] 100 mg PO TID #90 tablet 11/03/20 12/11/20 Unknown Rx labetaloL [Labetalol 200mg TAB] 200 mg PO TID #90 tablet 11/03/20 12/11/20 Unknown Rx lisinopriL [Zestril TAB] 20 mg PO QHS #30 tablet 11/03/20 12/11/20 Unknown Rx oxyCODONE /ACETAMINOPHEN [Percocet 1 tab PO Q6H PRN #14 tablet 11/03/20 12/11/20 Unknown Rx 5/325 mg] ED Physical Exam - General Limitations: No Limitations General appearance: alert, in no apparent distress - Head Head exam: Present: atraumatic, normocephalic - Eye Eye exam: Present: normal appearance - ENT ENT exam: Present: mucous membranes moist - Neck Neck exam: Present: normal inspection - Respiratory Respiratory exam: Present: normal lung sounds bilaterally, chest wall tenderness (Lower chest wall tenderness to palpation. Palpation of chest wall reproduces symptoms.), other (Left chest dialysis port noted.). Absent: respiratory distress - Cardiovascular Cardiovascular Exam: Present: regular rate, normal rhythm. Absent: systolic murmur, diastolic murmur, rubs, gallop - GI/Abdominal GI/Abdominal exam: Present: soft, tenderness (Epigastric tenderness to palpation), normal bowel sounds - Rectal Rectal exam: Present: deferred - Extremities Exam Extremities exam: Present: normal inspection - Back Exam Back exam: Present: normal inspection - Neurological Exam Neurological exam: Present: alert, oriented X3 - Psychiatric Psychiatric exam: Present: normal affect, normal mood - Skin Skin exam: Present: warm, dry, intact, normal color. Absent: rash ED Course Vital Signs 12/16/20 12/16/20 12/16/20 20:03 21:40 22:04 Temperature 98.6 F Pulse Rate 92 H 87 Respiratory 17 24 18 Rate Blood Pressure 188/109 Blood Pressure 193/121 [Left] O2 Sat by Pulse 97 99 Oximetry 12/16/20 12/16/20 12/16/20 22:59 23:05 23:52 Temperature Pulse Rate 98 H 89 89 Respiratory 18 18 Rate Blood Pressure Blood Pressure 211/116 190/101 [Left] O2 Sat by Pulse 98 99 Oximetry - Reevaluation(s) Reevaluation #1: I discussed all results with patient. I discussed plan of care with patient. Patient agrees with plan of care and admission. Patient to be admitted to the hospitalist service. 12/16/20 22:03 - Consultations Consultation #1: I discussed case with Dr. Fairbanks, nephrology. Nephrology recommends emergent dialysis and states they will place the orders for dialysis to be done now. Dr. Vaughan agrees with hyperkalemia protocol placed. 12/16/20 21:50 Consultation #2: Hospitalist consulted for admission. Hospitalist to admit patient. 12/16/20 22:03 - EJ/Peripheral Line Neck L Time Out Performed: Yes Indications: nurses unable to establis Skin Cleansed in Sterile Fashion: Yes Size: 18 Dressing Placed: Tegaderm, tape Patient Tolerated Procedure: well, no complications JANENE score - Janene Score Age > 65: (0) No Aspirin use within the Past 7 Days: (1) Yes 3 or more CAD Risk Factors: (1) Yes 2 or more Angina events in past 24 hrs: (0) No Known CAD with more than 50% Stenosis: (0) No Elevated Cardiac Markers: (1) Yes ST Deviation Greater than 0.5mm: (0) No JANENE Score: 3 ED Medical Decision Making - Lab Data Result diagrams: 12/16/20 20:22 12/16/20 20:22 - EKG Data -: EKG Interpreted by Me EKG shows normal: sinus rhythm, axis, intervals, QRS complexes Rate: normal, tachycardia - EKG Data Interpretation: other (Peaked T waves.) - Medical Decision Making Patient is a 35-year-old male that presents emergency room with multiple complaints. Patient's complaints include chest pain, abdominal pain, nausea, vomiting, vomiting blood, missed dialysis. Patient missed his last 2 sessions of dialysis. Patient had labs done which showed elevated potassium and end- stage renal disease. Patient given a hyperkalemia protocol to include insulin, D50 and calcium. Patient's adjunct lecturer consulted. Nephrology wants the emergent dialysis. Nephrology wants patient admitted to the hospital service. Nephrology ordered emergency dialysis. Patient had an EKG for chest pain and elevated potassium. Patient showed spiked T waves. Patient had no other acute findings on EKG. Patient admitted to the hospital service for further evaluation treatment. - Differential Diagnosis Nausea, vomiting, missed dialysis, chest pain, abdominal pain, GI bleed Critical Care Time: Yes Critical care time in (mins) excluding proc time.: 35 Critical care attestation.: If time is entered above; I have spent that time in minutes in the direct care of this critically ill patient, excluding procedure time. Critical Care Time: 35 minutes ED Disposition Clinical Impression: Gastroparesis, Coffee ground emesis, End-stage renal disease needing dialysis, Hyperkalemia Abdominal pain Qualifiers: Abdominal location: epigastric Qualified Code(s): R10.13 - Epigastric pain Chest pain Qualifiers: Chest pain type: unspecified Qualified Code(s): R07.9 - Chest pain, unspecified Nausea & vomiting Qualifiers: Vomiting type: unspecified Vomiting Intractability: non-intractable Qualified Code(s): R11.2 - Nausea with vomiting, unspecified Disposition: DC-09 OP ADMIT IP TO THIS HOSP Is pt being admited?: Yes Does the pt Need Aspirin: No Condition: Critical Time of Disposition: 22:00
[2020-12-16 22:59] LABS: Chol/HDL Ratio 2.34 %
[2020-12-16] MEDS ORDERED: ACETAMINOPHEN 325 MG TAB PO PRN (22:59)
[2020-12-16] MEDS ORDERED: DEXTROSE 50% IN WATER (25GM) 50 ML SYRINGE IV PRN (22:59)
[2020-12-16] MEDS ORDERED: NITROGLYCERIN 0.4 MG TAB SUBL SL PRN (22:59)
[2020-12-16] MEDS ORDERED: MAGNESIUM HYDROXIDE (MOM) ORAL LIQD UDC PO PRN (22:59)
[2020-12-16] MEDS ORDERED: MORPHINE 2 MG/1 ML INJ IV PRN (22:59)
--- NOTE | 2020-12-16 23:13 | History and Physical Report ---
History of Present Illness Date of examination: 12/16/20 Date of admission: 12/16/2020 Chief complaint: Nausea & Vomiting Abdominal Pain Chest Pain History of present illness: 35-year-old -[place] male with known history of end-stage renal disease on dialysis Wednesdays and Fridays presenting to the emergency room today complaining of nausea vomiting with associated abdominal pain. Symptoms was said to have started about 3 days ago and got worse today. He has missed 2 sessions of his dialysis, last dialysis was on Saturday. Abdominal pain is said to be epigastric and also radiating towards his lower chest. On a scale of 10 pain was about 10/10. He denies any fever or chills, no headache or dizziness, no diaphoresis. Patient has had some coffee-ground emesis according to him. He has had this type of presentation on many occasions. Work-up in the emergency room today reveals elevated troponin, hyperkalemia with potassium of 7. Detail Assembler on-call has been consulted by the ER physician. Patient will be scheduled for immediate dialysis. He received insulin and glucose, calcium gluconate in the emergency room for his hyperkalemia. Patient has been admitted for his nausea and vomiting with abdominal pain, chest pain and hyperkalemia. Past History Past Medical History: arthritis, CAD, diabetes, dialysis, ESRD, GERD, hypertension, other (Ulcerative Colitis,Asthma,Gastroparesis,Copd,) Past Surgical History: appendectomy, cholecystectomy, Other (Right great Toe Obey thelma,Perma-Cath Placement.) Social history: alcohol abuse Family history: no significant family history Medications and Allergies Allergies Allergy/AdvReac Type Severity Reaction Status Date / Time No Known Allergies Allergy Verified 07/20/20 15:05 Home Medications Medication Instructions Recorded Confirmed Last Taken Type Lispro Insulin [HumaLOG] 5 unit SQ AC #1 vial 04/17/20 12/11/20 09/05/20 17:00 Rx Ondansetron [Zofran ODT TAB] 4 mg PO Q8HR PRN #14 tab.rapdis 10/05/20 12/11/20 Unknown Rx Albuterol Sulfate [Albuterol 0.63% 0.63 mg IH BID PRN #60 vial 11/03/20 12/11/20 Unknown Rx NEBS] Insulin Detemir [Levemir Flextouch] 10 units SQ PC 30 Days 11/03/20 12/11/20 Unknown Rx Metoclopramide [Reglan TAB] 10 mg PO TID PRN #30 11/03/20 12/11/20 Unknown Rx NIFEdipine XL [Procardia Xl] 60 mg PO Q12HR #60 tablet 11/03/20 12/11/20 Unknown Rx Pantoprazole [Protonix TAB] 40 mg PO BID #60 tab 11/03/20 12/11/20 Unknown Rx hydrALAZINE [Apresoline TAB] 100 mg PO TID #90 tab 11/03/20 12/11/20 Unknown Rx labetaloL [Labetalol 100mg TAB] 100 mg PO TID #90 tablet 11/03/20 12/11/20 Unknown Rx labetaloL [Labetalol 200mg TAB] 200 mg PO TID #90 tablet 11/03/20 12/11/20 Unknown Rx lisinopriL [Zestril TAB] 20 mg PO QHS #30 tablet 11/03/20 12/11/20 Unknown Rx oxyCODONE /ACETAMINOPHEN [Percocet 1 tab PO Q6H PRN #14 tablet 11/03/20 12/11/20 Unknown Rx 5/325 mg] Active Meds: Active Medications Acetaminophen (Acetaminophen 325 Mg Tab) 650 mg PO Q4H PRN PRN Reason: Pain MILD(1-3)/Fever >100.5/LANZA Acetaminophen (Acetaminophen 325 Mg Tab) 650 mg PO Q6H PRN PRN Reason: Pain, Mild (1-3) Aspirin (Aspirin Ec 325 Mg Tab) 325 mg PO QDAY KESHIA Dextrose (Dextrose 50% In Water (25gm) 50 Ml Syringe) 50 ml IV Q30MIN PRN; Protocol PRN Reason: Hypoglycemia Dextrose (Dextrose 50% In Water (25gm) 50 Ml Syringe) 50 ml IV Q30MIN PRN; Protocol PRN Reason: Hypoglycemia Heparin Sodium (Porcine) (Heparin 5,000 Unit/1 Ml Vial) 5,000 unit SUB-Q Q8HR KESHIA Insulin Human Regular (Insulin Regular, Human 100 Units/1 Ml) 0 units SUB-Q ACHS KESHIA; Protocol Magnesium Hydroxide (Magnesium Hydroxide (Mom) Oral Liqd Udc) 30 ml PO Q4H PRN PRN Reason: Constipation Morphine Sulfate (Morphine 4 Mg/1 Ml Inj) 2 mg IV Q5MIN PRN PRN Reason: Chest Pain Nitroglycerin (Nitroglycerin 0.4 Mg Tab Subl) 0.4 mg SL Q5M PRN PRN Reason: Chest Pain Ondansetron HCl (Ondansetron 4 Mg/2 Ml Inj) 4 mg IV Q8H PRN PRN Reason: Nausea And Vomiting Sodium Chloride (Sodium Chloride 0.9% 10 Ml Flush Syringe) 10 ml IV BID KESHIA Sodium Chloride (Sodium Chloride 0.9% 10 Ml Flush Syringe) 10 ml IV PRN PRN PRN Reason: LINE FLUSH Sodium Chloride (Sodium Chloride 0.9% 10 Ml Flush Syringe) 10 ml IV PRN PRN PRN Reason: LINE FLUSH Review of Systems Constitutional: no fever, no chills Ears, nose, mouth and throat: no nasal congestion, no sore throat Cardiovascular: chest pain, no palpitations Respiratory: no cough, no shortness of breath Gastrointestinal: abdominal pain, nausea, vomiting, coffee ground emesis, no diarrhea Genitourinary Male: no dysuria, no hematuria, no nocturia Musculoskeletal: no neck pain, no low back pain Integumentary: no rash, no pruritis Neurological: no headaches, no confusion Psychiatric: no anxiety, no depression Exam - Constitutional Vitals: Temp Pulse Resp BP Pulse Ox 98.6 F 92 H 17 188/109 97 12/16/20 20:03 12/16/20 20:03 12/16/20 20:03 12/16/20 20:03 12/16/20 20:03 General appearance: Present: no acute distress, well-nourished - EENT Eyes: Present: PERRL, EOM intact. Absent: scleral icterus ENT: hearing intact, clear oral mucosa, dentition normal - Neck Neck: Present: supple, normal ROM - Respiratory Respiratory effort: normal Respiratory: bilateral: CTA - Cardiovascular Rhythm: regular Heart Sounds: Present: S1 & S2. Absent: gallop, systolic murmur, diastolic murmur, rub, click - Extremities Extremities: no ischemia, pulses intact, pulses symmetrical, No edema, normal temperature, normal color, Full ROM Peripheral Pulses: within normal limits - Abdominal General gastrointestinal: Present: soft, non-tender, non-distended, normal bowel sounds. Absent: mass - Integumentary Integumentary: Present: clear, warm, dry. Absent: rash - Musculoskeletal Musculoskeletal: strength equal bilaterally - Psychiatric Psychiatric: appropriate mood/affect, intact judgment & insight, memory intact, cooperative - Neurologic Neurologic: CNII-XII intact, no focal deficits, moves all extremities - Additional findings Additional findings: Open Wound -3x3cm in diameter over dorsal aspect of Left Wrist. Non-tender, no obvious Discharge. HEART Score - HEART Score History: Moderately suspicious EKG: Normal Age: < 45 Risk factors: > 3 risk factors or hx of atherosclerotic disease Troponin: Troponin T 1.130 ng/mL (0.00-0.029) H* 12/16/20 21:58 Troponin: 1-3x normal limit HEART Score: 4 Results - Labs CBC & Chem 7: 12/16/20 20:22 12/16/20 20:22 Labs: Abnormal lab results 12/16/20 12/16/20 12/16/20 Range/Units 20:22 20:22 21:58 RBC 3.44 L (3.65-5.03) M/mm3 Hgb 9.7 L (11.8-15.2) gm/dl Hct 29.5 L (35.5-45.6) % RDW 20.2 H (13.2-15.2) % Lymph % (Auto) 10.8 L (13.4-35.0) % [place] % (Auto) 8.8 H (0.0-7.3) % Lymph # (Auto) 1.1 L (1.2-5.4) K/mm3 [place] # (Auto) 0.9 H (0.0-0.8) K/mm3 Seg Neutrophils % 79.4 H (40.0-70.0) % Seg Neutrophils # 7.9 H (1.8-7.7) K/mm3 Potassium 7.2 H* D (3.6-5.0) mmol/L Chloride 95.7 L (98-107) mmol/L Carbon Dioxide 14 L D (22-30) mmol/L BUN 106 H (9-20) mg/dL Creatinine 14.7 H D (0.8-1.3) mg/dL Glucose 162 H (75-100) mg/dL Calcium 7.6 L (8.4-10.2) mg/dL AST 47 H (5-40) units/L ALT 73 H (7-56) units/L Alkaline Phosphatase 327 H (35-129) units/L Troponin T 1.130 H* (0.00-0.029) ng/mL HDL Cholesterol 84 H (40-59) mg/dL Assessment and Plan - Patient Problems (1) Chest pain Current Visit: Yes Status: Acute Qualifiers: Chest pain type: unspecified Qualified Code(s): R07.9 - Chest pain, unspecified Plan to address problem: Will follow serial cardiac enzymes. Patient will be placed on aspirin, sublingual nitroglycerin and IV morphine as needed for chest pain. We will await evaluation by cardiology. (2) Hyperkalemia Current Visit: Yes Status: Acute Plan to address problem: Patient has received insulin and glucose, calcium gluconate in the emergency room. He has been asked scheduled for immediate dialysis. We will follow potassium levels. (3) Nausea & vomiting Current Visit: Yes Status: Acute Qualifiers: Vomiting type: unspecified Vomiting Intractability: non-intractable Qualified Code(s): R11.2 - Nausea with vomiting, unspecified Plan to address problem: Patient placed on IV Zofran as needed. He has known history of gastroparesis. (4) End-stage renal disease needing dialysis Current Visit: Yes Status: Chronic Plan to address problem: Consult placed to nephrology for dialysis. Patient has been encouraged to be compliant with his dialysis. (5) Diabetes mellitus Current Visit: No Status: Acute Plan to address problem: We will monitor Accu-Cheks closely. (6) Hypertensive urgency Current Visit: No Status: Acute Plan to address problem: Resume routine home medications and monitor vital signs closely. (7) DVT prophylaxis Current Visit: No Status: Acute Plan to address problem: Patient placed on subcutaneous heparin. (8) Full code status Current Visit: No Status: Acute Plan to address problem: Patient is a full code.
[2020-12-16 23:27] LABS: Creatine Kinase MB 18.6 ng/mL (0.0-4.0)
[2020-12-17] MEDS: hydrALAZINE 20 MG/1 ML INJ IV PRN ×4 (02:30→23:23)
[2020-12-17 05:16] LABS: Basophils # (Auto) 0.1 K/mm3 (0.0-0.1); Eosinophils # (Auto) 0.1 K/mm3 (0.0-0.4); Eosinophils % (Auto) 0.6 % (0.0-4.3); Hematocrit 25.8 % (35.5-45.6); Hemoglobin 8.4 gm/dl (11.8-15.2); Lymphocytes # (Auto) 0.9 K/mm3 (1.2-5.4); Lymphocytes % (Auto) 9.1 % (13.4-35.0); Mean Corpuscular HGB Conc 32 % (32-34); Mean Corpuscular Volume 86 fl (84-94); Monocytes # (Auto) 1.3 K/mm3 (0.0-0.8); Platelet Count 287 K/mm3 (140-440); Red Blood Count 2.99 M/mm3 (3.65-5.03)
[2020-12-17 05:18] LABS: Red Cell Distribution Width 20.3 % (13.2-15.2)
[2020-12-17 05:21] LABS: INR 1.48 (0.87-1.13)
[2020-12-17 05:26] LABS: Calcium 7.7 mg/dL (8.4-10.2)
[2020-12-17] MEDS: HEPARIN 5,000 UNIT/1 ML VIAL SUB-Q SCH ×3 (06:33→22:08)
[2020-12-17] MEDS: DICYCLOMINE 10 MG/5 ML ORAL LIQD PO SCH ×4 (10:55→22:08)
--- NOTE | 2020-12-17 11:03 | Progress Note ---
Assessment and Plan Assessment and plan: 35-year-old -[place] male with known history of end-stage renal disease on dialysis Wednesdays and Fridays presenting to the emergency room today complaining of nausea vomiting with associated abdominal pain. Symptoms was said to have started about 3 days ago and got worse today. He has missed 2 sessions of his dialysis, last dialysis was on Saturday. Abdominal pain is said to be epigastric and also radiating towards his lower chest. On a scale of 10 pain was about 10/10. He denies any fever or chills, no headache or dizziness, no diaphoresis. Patient has had some coffee-ground emesis according to him. He has had this type of presentation on many occasions. Work-up in the emergency room today reveals elevated troponin, hyperkalemia with potassium of 7. Survey Director on-call has been consulted by the ER physician. Patient will be scheduled for immediate dialysis. He received insulin and glucose, calcium gluconate in the emergency room for his hyperkalemia. Patient has been admitted for his nausea and vomiting with abdominal pain, chest pain and hyperkalemia. 12/17: Patient seen and examined reports some improvement. Unfortunately has not followed up discharge instructions which is unremarkable recommended in the past. Again I have had extensive discussion with the patient. Hypokalemia has improved. We will start the patient on Reglan and also add Bentyl. No toxic appearance noted at this time. Will monitor 1 additional day of discharge in a.m. (1) Chest pain Current Visit: Yes Status: Acute Qualifiers: Chest pain type: unspecified Qualified Code(s): R07.9 - Chest pain, unspecified Plan to address problem: Will follow serial cardiac enzymes. Patient will be placed on aspirin, sublingual nitroglycerin and IV morphine as needed for chest pain. We will await evaluation by cardiology. (2) Hyperkalemia Current Visit: Yes Status: Acute Plan to address problem: Patient has received insulin and glucose, calcium gluconate in the emergency room. He has been asked scheduled for immediate dialysis. We will follow potassium levels. (3) Nausea & vomiting Current Visit: Yes Status: Acute Qualifiers: Vomiting type: unspecified Vomiting Intractability: non-intractable Qualified Code(s): R11.2 - Nausea with vomiting, unspecified Plan to address problem: Patient placed on IV Zofran as needed. He has known history of gastroparesis. (4) End-stage renal disease needing dialysis Current Visit: Yes Status: Chronic Plan to address problem: Consult placed to nephrology for dialysis. Patient has been encouraged to be compliant with his dialysis. (5) Diabetes mellitus Current Visit: No Status: Acute Plan to address problem: We will monitor Accu-Cheks closely. (6) Hypertensive urgency Current Visit: No Status: Acute Plan to address problem: Resume routine home medications and monitor vital signs closely. (7) DVT prophylaxis Current Visit: No Status: Acute Plan to address problem: Patient placed on subcutaneous heparin. (8) Full code status Current Visit: No Status: Acute Plan to address problem: Patient is a full code. History Interval history: Patient seen and examined resting comfortably no new complaints. Hospitalist Physical - Physical exam Narrative exam: General appearance: Present: no acute distress, well-nourished - EENT Eyes: Present: PERRL, EOM intact. Absent: scleral icterus ENT: hearing intact, clear oral mucosa, dentition normal - Neck Neck: Present: supple, normal ROM - Respiratory Respiratory effort: normal Respiratory: bilateral: CTA - Cardiovascular Rhythm: regular Heart Sounds: Present: S1 & S2. Absent: gallop, systolic murmur, diastolic murmur, rub, click - Extremities Extremities: no ischemia, pulses intact, pulses symmetrical, No edema, normal temperature, normal color, Full ROM Peripheral Pulses: within normal limits - Abdominal General gastrointestinal: Present: soft, non-tender, non-distended, normal bowel sounds. Absent: mass - Integumentary Integumentary: Present: clear, warm, dry. Absent: rash - Musculoskeletal Musculoskeletal: strength equal bilaterally - Psychiatric Psychiatric: appropriate mood/affect, intact judgment & insight, memory intact, cooperative - Neurologic Neurologic: CNII-XII intact, no focal deficits, moves all extremities - Additional findings Additional findings: Open Wound -3x3cm in diameter over dorsal aspect of Left Wrist. Non-tender, no obvious Discharge. - Constitutional Vitals: Temp Pulse Resp BP Pulse Ox 98.6 F 94 H 19 193/112 90 12/17/20 07:21 12/17/20 07:21 12/17/20 07:21 12/17/20 07:21 12/17/20 07:21 General appearance: Present: no acute distress, well-nourished HEART Score - HEART Score EKG: Normal Age: < 45 Risk factors: > 3 risk factors or hx of atherosclerotic disease Troponin: Troponin T 0.991 ng/mL (0.00-0.029) H* 12/17/20 04:47 Troponin: > 3x normal limit Results - Labs CBC & Chem 7: 12/17/20 04:47 12/17/20 04:47 Labs: Laboratory Last Values WBC 9.7 K/mm3 (4.5-11.0) 12/17/20 04:47 RBC 2.99 M/mm3 (3.65-5.03) L 12/17/20 04:47 Hgb 8.4 gm/dl (11.8-15.2) L 12/17/20 04:47 Hct 25.8 % (35.5-45.6) L 12/17/20 04:47 MCV 86 fl (84-94) 12/17/20 04:47 MCH 28 pg (28-32) 12/17/20 04:47 MCHC 32 % (32-34) 12/17/20 04:47 RDW 20.3 % (13.2-15.2) H 12/17/20 04:47 Plt Count 287 K/mm3 (140-440) 12/17/20 04:47 Lymph % (Auto) 9.1 % (13.4-35.0) L 12/17/20 04:47 [place] % (Auto) 13.0 % (0.0-7.3) H 12/17/20 04:47 Eos % (Auto) 0.6 % (0.0-4.3) 12/17/20 04:47 Baso % (Auto) 1.0 % (0.0-1.8) 12/17/20 04:47 Lymph # (Auto) 0.9 K/mm3 (1.2-5.4) L 12/17/20 04:47 [place] # (Auto) 1.3 K/mm3 (0.0-0.8) H 12/17/20 04:47 Eos # (Auto) 0.1 K/mm3 (0.0-0.4) 12/17/20 04:47 Baso # (Auto) 0.1 K/mm3 (0.0-0.1) 12/17/20 04:47 Seg Neutrophils % 76.3 % (40.0-70.0) H 12/17/20 04:47 Seg Neutrophils # 7.4 K/mm3 (1.8-7.7) 12/17/20 04:47 PT 17.9 Sec. (12.2-14.9) H 12/17/20 04:47 INR 1.48 (0.87-1.13) H 12/17/20 04:47 Sodium 141 mmol/L (137-145) 12/17/20 04:47 Potassium 4.7 mmol/L (3.6-5.0) D 12/17/20 04:47 Chloride 96.2 mmol/L (98-107) L 12/17/20 04:47 Carbon Dioxide 21 mmol/L (22-30) L D 12/17/20 04:47 Anion Gap 29 mmol/L 12/17/20 04:47 BUN 79 mg/dL (9-20) H 12/17/20 04:47 Creatinine 11.4 mg/dL (0.8-1.3) H 12/17/20 04:47 Estimated GFR 6 ml/min 12/17/20 04:47 BUN/Creatinine Ratio 7 % 12/17/20 04:47 Glucose 104 mg/dL (75-100) H 12/17/20 04:47 POC Glucose 93 mg/dL (70-105) 12/17/20 07:23 Calcium 7.7 mg/dL (8.4-10.2) L 12/17/20 04:47 Total Bilirubin 0.60 mg/dL (0.1-1.2) 12/16/20 20:22 AST 47 units/L (5-40) H 12/16/20 20:22 ALT 73 units/L (7-56) H 12/16/20 20:22 Alkaline Phosphatase 327 units/L (35-129) H 12/16/20 20:22 Total Creatine Kinase 593 units/L (55-170) H 12/16/20 21:58 CK-MB (CK-2) 18.6 ng/mL (0.0-4.0) H 12/16/20 21:58 CK-MB (CK-2) Rel Index 3.1 (0-4) 12/16/20 21:58 Troponin T 0.991 ng/mL (0.00-0.029) H* 12/17/20 04:47 Total Protein 7.2 g/dL (6.3-8.2) 12/16/20 20:22 Albumin 4.3 g/dL (3.9-5) 12/16/20 20:22 Albumin/Globulin Ratio 1.5 % 12/16/20 20:22 Triglycerides 104 mg/dL (2-149) 12/16/20 21:58 Cholesterol 197 mg/dL (50-199) 12/16/20 21:58 LDL Cholesterol Direct 103 mg/dL (50-130) 12/16/20 21:58 HDL Cholesterol 84 mg/dL (40-59) H 12/16/20 21:58 Cholesterol/HDL Ratio 2.34 % 12/16/20 21:58 Active Medications - Current Medications Current Medications: Generic Name Dose Route Start Last Admin Trade Name Freq PRN Reason Stop Dose Admin Acetaminophen 650 mg 12/16/20 22:59 Acetaminophen 325 Mg Tab PO Q4H PRN Pain MILD(1-3)/Fever >100.5/LANZA Aspirin 325 mg 12/17/20 10:00 Aspirin Ec 325 Mg Tab PO QDAY [facility] Dextrose 0 ml 12/16/20 22:59 Dextrose 50% In Water (25gm) 50 Ml Syringe IV Q30MIN PRN Hypoglycemia Protocol Dicyclomine HCl 20 mg 12/17/20 10:00 Dicyclomine 10 Mg/5 Ml Oral Liqd PO QID [facility] Heparin Sodium (Porcine) 5,000 unit 12/17/20 06:00 12/17/20 06:33 Heparin 5,000 Unit/1 Ml Vial SUB-Q 5,000 unit Q8HR [facility] Administration Hydralazine HCl 10 mg 12/16/20 23:23 12/17/20 02:30 Hydralazine 20 Mg/1 Ml Inj IV 10 mg Q4H PRN Administration Blood Pressure Hydralazine HCl 100 mg 12/17/20 08:00 Hydralazine 100 Mg Tab PO TID [facility] Insulin Human Regular 0 units 12/17/20 07:30 Insulin Regular, Human 100 Units/1 Ml SUB-Q ACHS [facility] Protocol Labetalol HCl 100 mg 12/17/20 08:00 Labetalol 100 Mg Tab PO TID [facility] Lisinopril 20 mg 12/17/20 22:00 Lisinopril 20 Mg Tab PO QHS [facility] Magnesium Hydroxide 30 ml 12/16/20 22:59 Magnesium Hydroxide (Mom) Oral Liqd Udc PO Q4H PRN Constipation Metoclopramide HCl 5 mg 12/17/20 11:30 Metoclopramide 10 Mg Tab PO ACHS [facility] Nifedipine 60 mg 12/17/20 10:00 Nifedipine Xl 60 Mg Tab PO Q12HR [facility] Nitroglycerin 0.4 mg 12/16/20 22:59 Nitroglycerin 0.4 Mg Tab Subl SL Q5M PRN Chest Pain Ondansetron HCl 4 mg 12/16/20 22:59 Ondansetron 4 Mg/2 Ml Inj IV Q8H PRN Nausea And Vomiting Pantoprazole Sodium 40 mg 12/17/20 10:00 Pantoprazole 40 Mg Tab PO BID [facility] Sodium Chloride 10 ml 12/17/20 10:00 Sodium Chloride 0.9% 10 Ml Flush Syringe IV BID [facility] Sodium Chloride 10 ml 12/16/20 22:59 Sodium Chloride 0.9% 10 Ml Flush Syringe IV PRN PRN LINE FLUSH
[2020-12-17] MEDS: NIFEdipine XL 60 MG TAB PO SCH ×2 (11:08→22:09)
[2020-12-17] MEDS: PANTOPRAZOLE 40 MG TAB PO SCH ×2 (11:08→22:09)
[2020-12-17] MEDS: INSULIN REGULAR, HUMAN 100 UNITS/1 ML SUB-Q SCH ×4 (11:08→22:08)
[2020-12-17] MEDS: ASPIRIN EC 325 MG TAB PO SCH (11:08)
[2020-12-17] MEDS: METOCLOPRAMIDE 10 MG TAB PO SCH ×3 (11:09→22:09)
[2020-12-17] MEDS: ACETAMINOPHEN 325 MG TAB PO PRN (11:12)
[2020-12-17] MEDS: hydrALAZINE 100 MG TAB PO SCH ×4 (11:12→20:00)
[2020-12-17] MEDS: ONDANSETRON 4 MG/2 ML INJ IV PRN ×2 (11:13→19:51)
[2020-12-17] MEDS ORDERED: SODIUM CHLORIDE 0.9% 100 ML IV PRN (12:41)
--- NOTE | 2020-12-17 14:05 | Consultation ---
History of Present Illness - Reason for Consult end stage renal disease - History of Present Illness 35-year-old -[place] male with a past medical history of end-stage renal disease in the setting of hypertension and diabetes, who has had history of noncompliance with previous hemodialysis treatments and has been seen in the hospital multiple times in the past secondary to this, presented essentially with worsening shortness of breath and generalized weakness and fatigue in the setting of missed dialysis sessions. He dialyzes at [facility]. Nephrology consult at this time further management. He was emergently dialyzed early this morning late last night secondary to severe hyperkalemia with admission potassium of greater than 7. I am setting patient up for a second hem odialysis treatment today as he is feeling very weak and nauseous and I believe a lot of this is from his missed treatments. Blood pressures are also elevated and an extra dialysis treatment today will get him further closer to his dry weight. Past History Past Medical History: arthritis, CAD, diabetes, dialysis, ESRD, GERD, hypertension, other (Ulcerative Colitis,Asthma,Gastroparesis,Copd,) Past Surgical History: appendectomy, cholecystectomy, Other (Right great Toe Surgery,Perma-Cath Placement.) Social history: alcohol abuse Family history: no significant family history Medications and Allergies Allergies Allergy/AdvReac Type Severity Reaction Status Date / Time No Known Allergies Allergy Verified 07/20/20 15:05 Home Medications Medication Instructions Recorded Confirmed Last Taken Type Lispro Insulin [HumaLOG] 5 unit SQ AC #1 vial 04/17/20 12/17/20 09/05/20 17:00 Rx Ondansetron [Zofran ODT TAB] 4 mg PO Q8HR PRN #14 tab.rapdis 10/05/20 12/17/20 Unknown Rx Albuterol Sulfate [Albuterol 0.63% 0.63 mg IH BID PRN #60 vial 11/03/20 12/17/20 Unknown Rx NEBS] Insulin Detemir [Levemir Flextouch] 10 units SQ PC 30 Days 11/03/20 12/17/20 Unknown Rx Metoclopramide [Reglan TAB] 10 mg PO TID PRN #30 11/03/20 12/17/20 Unknown Rx NIFEdipine XL [Procardia Xl] 60 mg PO Q12HR #60 tablet 11/03/20 12/17/20 Unknown Rx Pantoprazole [Protonix TAB] 40 mg PO BID #60 tab 11/03/20 12/17/20 Unknown Rx hydrALAZINE [Apresoline TAB] 100 mg PO TID #90 tab 11/03/20 12/17/20 Unknown Rx labetaloL [Labetalol 100mg TAB] 100 mg PO TID #90 tablet 11/03/20 12/17/20 Unknown Rx labetaloL [Labetalol 200mg TAB] 200 mg PO TID #90 tablet 11/03/20 12/17/20 Unknown Rx lisinopriL [Zestril TAB] 20 mg PO QHS #30 tablet 11/03/20 12/17/20 Unknown Rx oxyCODONE /ACETAMINOPHEN [Percocet 1 tab PO Q6H PRN #14 tablet 11/03/20 12/17/20 Unknown Rx 5/325 mg] Active Meds: Active Medications Acetaminophen (Acetaminophen 325 Mg Tab) 650 mg PO Q4H PRN PRN Reason: Pain MILD(1-3)/Fever >100.5/LANZA Last Admin: 12/17/20 11:12 Dose: 650 mg Documented by: Aspirin (Aspirin Ec 325 Mg Tab) 325 mg PO QDAY [facility] Last Admin: 12/17/20 11:08 Dose: 325 mg Documented by: Dextrose (Dextrose 50% In Water (25gm) 50 Ml Syringe) 0 ml IV Q30MIN PRN; Protocol PRN Reason: Hypoglycemia Dicyclomine HCl (Dicyclomine 10 Mg/5 Ml Oral Liqd) 20 mg PO QID [facility] Heparin Sodium (Porcine) (Heparin 5,000 Unit/1 Ml Vial) 5,000 unit SUB-Q Q8HR [facility] Last Admin: 12/17/20 06:33 Dose: 5,000 unit Documented by: Hydralazine HCl (Hydralazine 20 Mg/1 Ml Inj) 10 mg IV Q4H PRN PRN Reason: Blood Pressure Last Admin: 12/17/20 02:30 Dose: 10 mg Documented by: Hydralazine HCl (Hydralazine 100 Mg Tab) 100 mg PO TID [facility] Last Admin: 12/17/20 11:12 Dose: 100 mg Documented by: Sodium Chloride (Nacl 0.9%) 100 mls @ 999 mls/hr IV BRENDAN PRN PRN Reason: Hypotension Insulin Human Regular (Insulin Regular, Human 100 Units/1 Ml) 0 units SUB-Q ACHS [facility]; Protocol Last Admin: 12/17/20 11:08 Dose: Not Given Documented by: Labetalol HCl (Labetalol 100 Mg Tab) 100 mg PO TID [facility] Last Admin: 12/17/20 11:12 Dose: 100 mg Documented by: Lisinopril (Lisinopril 20 Mg Tab) 20 mg PO QHS [facility] Magnesium Hydroxide (Magnesium Hydroxide (Mom) Oral Liqd Udc) 30 ml PO Q4H PRN PRN Reason: Constipation Metoclopramide HCl (Metoclopramide 10 Mg Tab) 5 mg PO ACHS [facility] Last Admin: 12/17/20 11:09 Dose: 5 mg Documented by: Nifedipine (Nifedipine Xl 60 Mg Tab) 60 mg PO Q12HR [facility] Last Admin: 12/17/20 11:08 Dose: 60 mg Documented by: Nitroglycerin (Nitroglycerin 0.4 Mg Tab Subl) 0.4 mg SL Q5M PRN PRN Reason: Chest Pain Ondansetron HCl (Ondansetron 4 Mg/2 Ml Inj) 4 mg IV Q8H PRN PRN Reason: Nausea And Vomiting Last Admin: 12/17/20 11:13 Dose: 4 mg Documented by: Pantoprazole Sodium (Pantoprazole 40 Mg Tab) 40 mg PO BID [facility] Last Admin: 12/17/20 11:08 Dose: 40 mg Documented by: Sodium Chloride (Sodium Chloride 0.9% 10 Ml Flush Syringe) 10 ml IV BID [facility] Last Admin: 12/17/20 11:09 Dose: 10 ml Documented by: Sodium Chloride (Sodium Chloride 0.9% 10 Ml Flush Syringe) 10 ml IV PRN PRN PRN Reason: LINE FLUSH Review of Systems All systems: negative Constitutional: fatigue, weakness, malaise, poor appetite Respiratory: shortness of breath Gastrointestinal: nausea, vomiting Exam - Vital Signs Vital signs: Vital Signs Temp Pulse Resp BP Pulse Ox 98.6 F 92 H 17 188/109 97 12/16/20 20:03 12/16/20 20:03 12/16/20 20:03 12/16/20 20:03 12/16/20 20:03 - General Appearance General appearance: appears stated age EENT: ATNC Neck: Present: neck supple Respiratory: Decreased Breath Sounds Heart: regular Gastrointestinal: Present: normal Integumentary: no rash Neurologic: no focal deficit Musculoskeletal: Present: deferred Psychiatric: cooperative Results - Lab Results 12/17/20 04:47 12/17/20 04:47 Most recent lab results Calcium 7.7 mg/dL (8.4-10.2) L 12/17/20 04:47 Assessment and Plan - Patient Problems (1) End-stage renal disease needing dialysis Current Visit: Yes Status: Chronic Plan to address problem: Plan for second hemodialysis treatment today and then will place on a Saturday inpatient hemodialysis schedule. (2) Hyperkalemia Current Visit: Yes Status: Acute Plan to address problem: In the setting of multiple missed hemodialysis treatments. Corrected with hemodialysis late last night. We will dialyze again today. Counseled patient on importance of hemodialysis compliance as well as complying with low potassium diet at home. (3) Nausea & vomiting Current Visit: Yes Status: Acute Qualifiers: Vomiting type: unspecified Vomiting Intractability: non-intractable Qualified Code(s): R11.2 - Nausea with vomiting, unspecified Plan to address problem: Secondary to history of gastroparesis which is also further complicated by multiple missed hemodialysis treatments and likely underlying uremic symptoms. Symptomatic management per primary attending. Anticipate that with further hemodialysis his symptoms should start to improve as well. (4) Type 2 diabetes mellitus with diabetic chronic kidney disease Current Visit: Yes Status: Chronic Qualifiers: Chronic kidney disease stage: on chronic dialysis Plan to address problem: Management per primary attending. (5) Hypertensive chronic kidney disease with stage 5 chronic kidney disease or end stage renal disease Current Visit: Yes Status: Chronic Plan to address problem: Monitor blood pressures under current regimen. We will dialyze again today for further ultrafiltration and this should further aid in his blood pressure management.
--- NOTE | 2020-12-17 16:33 | Consultation ---
History of Present Illness Consult date: 12/17/20 Consult reason: elevated troponin History of present illness: 35 YO man with h/o ESRD, Htn, and DM presented to ED complaining of nausea vomiting with associated abdominal pain. He has missed 2 sessions of his dialysis, last dialysis was on Saturday. He has not experienced chest pain or unusual dyspnea. Patient has had some coffee-ground emesis according to him. He has had this type of presentation on many occasions and is frequently non-compliant with outpatient dialysis. Cardiology is being consulted due to elevated troponin level. Of note, review of previous records reveals that his troponins are frequently similarly elevated during numerous previous hospitalizations. Previous cardiac testing included Echo in 08/2019 which revealed EF of 45/50%, moderate LVH. MPI in 10/2019 revealed normal perfusion. ECG on current presentation reveals sinus tachycardia, likely LVH, prolonged QTc. Past History Past Medical History: arthritis, diabetes, dialysis, ESRD, GERD, hypertension, other (Ulcerative Colitis,Asthma,Gastroparesis,Copd,) Past Surgical History: appendectomy, cholecystectomy, Other (Right great Toe Surgery,Perma-Cath Placement.) Social history: alcohol abuse Family history: no significant family history Medications and Allergies Allergies Allergy/AdvReac Type Severity Reaction Status Date / Time No Known Allergies Allergy Verified 07/20/20 15:05 Home Medications Medication Instructions Recorded Confirmed Last Taken Type Lispro Insulin [HumaLOG] 5 unit SQ AC #1 vial 04/17/20 12/17/20 09/05/20 17:00 Rx Ondansetron [Zofran ODT TAB] 4 mg PO Q8HR PRN #14 tab.rapdis 10/05/20 12/17/20 Unknown Rx Albuterol Sulfate [Albuterol 0.63% 0.63 mg IH BID PRN #60 vial 11/03/20 12/17/20 Unknown Rx NEBS] Insulin Detemir [Levemir Flextouch] 10 units SQ PC 30 Days 11/03/20 12/17/20 Unknown Rx Metoclopramide [Reglan TAB] 10 mg PO TID PRN #30 11/03/20 12/17/20 Unknown Rx NIFEdipine XL [Procardia Xl] 60 mg PO Q12HR #60 tablet 11/03/20 12/17/20 Unknown Rx Pantoprazole [Protonix TAB] 40 mg PO BID #60 tab 11/03/20 12/17/20 Unknown Rx hydrALAZINE [Apresoline TAB] 100 mg PO TID #90 tab 11/03/20 12/17/20 Unknown Rx labetaloL [Labetalol 100mg TAB] 100 mg PO TID #90 tablet 11/03/20 12/17/20 Unknown Rx labetaloL [Labetalol 200mg TAB] 200 mg PO TID #90 tablet 11/03/20 12/17/20 Unknown Rx lisinopriL [Zestril TAB] 20 mg PO QHS #30 tablet 11/03/20 12/17/20 Unknown Rx oxyCODONE /ACETAMINOPHEN [Percocet 1 tab PO Q6H PRN #14 tablet 11/03/20 12/17/20 Unknown Rx 5/325 mg] Active Meds: Active Medications Acetaminophen (Acetaminophen 325 Mg Tab) 650 mg PO Q4H PRN PRN Reason: Pain MILD(1-3)/Fever >100.5/LANZA Last Admin: 12/17/20 11:12 Dose: 650 mg Documented by: Aspirin (Aspirin Ec 325 Mg Tab) 325 mg PO QDAY [facility] Last Admin: 12/17/20 11:08 Dose: 325 mg Documented by: Dextrose (Dextrose 50% In Water (25gm) 50 Ml Syringe) 0 ml IV Q30MIN PRN; Protocol PRN Reason: Hypoglycemia Dicyclomine HCl (Dicyclomine 10 Mg/5 Ml Oral Liqd) 20 mg PO QID [facility] Last Admin: 12/17/20 14:24 Dose: Not Given Documented by: Heparin Sodium (Porcine) (Heparin 5,000 Unit/1 Ml Vial) 5,000 unit SUB-Q Q8HR [facility] Last Admin: 12/17/20 14:24 Dose: Not Given Documented by: Hydralazine HCl (Hydralazine 20 Mg/1 Ml Inj) 10 mg IV Q4H PRN PRN Reason: Blood Pressure Last Admin: 12/17/20 14:27 Dose: 10 mg Documented by: Hydralazine HCl (Hydralazine 100 Mg Tab) 100 mg PO TID [facility] Last Admin: 12/17/20 14:24 Dose: Not Given Documented by: Sodium Chloride (Nacl 0.9%) 100 mls @ 999 mls/hr IV BRENDAN PRN PRN Reason: Hypotension Insulin Human Regular (Insulin Regular, Human 100 Units/1 Ml) 0 units SUB-Q ACHS [facility]; Protocol Last Admin: 12/17/20 15:15 Dose: Not Given Documented by: Labetalol HCl (Labetalol 100 Mg Tab) 100 mg PO TID [facility] Last Admin: 12/17/20 14:24 Dose: Not Given Documented by: Lisinopril (Lisinopril 20 Mg Tab) 20 mg PO QHS [facility] Magnesium Hydroxide (Magnesium Hydroxide (Mom) Oral Liqd Udc) 30 ml PO Q4H PRN PRN Reason: Constipation Metoclopramide HCl (Metoclopramide 10 Mg Tab) 5 mg PO ACHS [facility] Last Admin: 12/17/20 11:09 Dose: 5 mg Documented by: Nifedipine (Nifedipine Xl 60 Mg Tab) 60 mg PO Q12HR [facility] Last Admin: 12/17/20 11:08 Dose: 60 mg Documented by: Nitroglycerin (Nitroglycerin 0.4 Mg Tab Subl) 0.4 mg SL Q5M PRN PRN Reason: Chest Pain Ondansetron HCl (Ondansetron 4 Mg/2 Ml Inj) 4 mg IV Q8H PRN PRN Reason: Nausea And Vomiting Last Admin: 12/17/20 11:13 Dose: 4 mg Documented by: Pantoprazole Sodium (Pantoprazole 40 Mg Tab) 40 mg PO BID [facility] Last Admin: 12/17/20 11:08 Dose: 40 mg Documented by: Sodium Chloride (Sodium Chloride 0.9% 10 Ml Flush Syringe) 10 ml IV BID [facility] Last Admin: 12/17/20 11:09 Dose: 10 ml Documented by: Sodium Chloride (Sodium Chloride 0.9% 10 Ml Flush Syringe) 10 ml IV PRN PRN PRN Reason: LINE FLUSH Physical Examination Vital Signs Temp Pulse Resp BP Pulse Ox 98.6 F 92 H 17 188/109 97 12/16/20 20:03 12/16/20 20:03 12/16/20 20:03 12/16/20 20:03 12/16/20 20:03 General appearance: no acute distress Neck: Positive: neck supple Cardiac: Positive: Reg Rate and Rhythm Lungs: Positive: Decreased Breath Sounds Abdomen: Positive: Soft, Active Bowel Sounds Results 12/17/20 04:47 12/17/20 04:47 Cardiac Enzymes 12/16/20 12/16/20 12/16/20 Range/Units 20:22 20:22 21:58 WBC 9.9 (4.5-11.0) K/mm3 RBC 3.44 L (3.65-5.03) M/mm3 Hgb 9.7 L (11.8-15.2) gm/dl Hct 29.5 L (35.5-45.6) % MCV 86 (84-94) fl MCH 28 (28-32) pg MCHC 33 (32-34) % RDW 20.2 H (13.2-15.2) % Plt Count 315 (140-440) K/mm3 Lymph % (Auto) 10.8 L (13.4-35.0) % [place] % (Auto) 8.8 H (0.0-7.3) % Eos % (Auto) 0.2 (0.0-4.3) % Baso % (Auto) 0.8 (0.0-1.8) % Lymph # (Auto) 1.1 L (1.2-5.4) K/mm3 [place] # (Auto) 0.9 H (0.0-0.8) K/mm3 Eos # (Auto) 0.0 (0.0-0.4) K/mm3 Baso # (Auto) 0.1 (0.0-0.1) K/mm3 Seg Neutrophils % 79.4 H (40.0-70.0) % Seg Neutrophils # 7.9 H (1.8-7.7) K/mm3 PT (12.2-14.9) Sec. INR (0.87-1.13) Sodium 141 (137-145) mmol/L Potassium 7.2 H* D (3.6-5.0) mmol/L Chloride 95.7 L (98-107) mmol/L Carbon Dioxide 14 L D (22-30) mmol/L Anion Gap 39 mmol/L BUN 106 H (9-20) mg/dL Creatinine 14.7 H D (0.8-1.3) mg/dL Estimated GFR 5 ml/min BUN/Creatinine Ratio 7 % Glucose 162 H (75-100) mg/dL POC Glucose (70-105) mg/dL Calcium 7.6 L (8.4-10.2) mg/dL Total Bilirubin 0.60 (0.1-1.2) mg/dL AST 47 H (5-40) units/L ALT 73 H (7-56) units/L Alkaline Phosphatase 327 H (35-129) units/L Total Creatine Kinase (55-170) units/L CK-MB (CK-2) (0.0-4.0) ng/mL CK-MB (CK-2) Rel Index (0-4) Troponin T 1.130 H* (0.00-0.029) ng/mL Total Protein 7.2 (6.3-8.2) g/dL Albumin 4.3 (3.9-5) g/dL Albumin/Globulin Ratio 1.5 % Triglycerides 104 (2-149) mg/dL Cholesterol 197 (50-199) mg/dL LDL Cholesterol Direct 103 (50-130) mg/dL HDL Cholesterol 84 H (40-59) mg/dL Cholesterol/HDL Ratio 2.34 % 12/16/20 12/16/20 12/17/20 Range/Units 21:58 22:43 04:47 WBC 9.7 (4.5-11.0) K/mm3 RBC 2.99 L (3.65-5.03) M/mm3 Hgb 8.4 L (11.8-15.2) gm/dl Hct 25.8 L (35.5-45.6) % MCV 86 (84-94) fl MCH 28 (28-32) pg MCHC 32 (32-34) % RDW 20.3 H (13.2-15.2) % Plt Count 287 (140-440) K/mm3 Lymph % (Auto) 9.1 L (13.4-35.0) % [place] % (Auto) 13.0 H (0.0-7.3) % Eos % (Auto) 0.6 (0.0-4.3) % Baso % (Auto) 1.0 (0.0-1.8) % Lymph # (Auto) 0.9 L (1.2-5.4) K/mm3 [place] # (Auto) 1.3 H (0.0-0.8) K/mm3 Eos # (Auto) 0.1 (0.0-0.4) K/mm3 Baso # (Auto) 0.1 (0.0-0.1) K/mm3 Seg Neutrophils % 76.3 H (40.0-70.0) % Seg Neutrophils # 7.4 (1.8-7.7) K/mm3 PT (12.2-14.9) Sec. INR (0.87-1.13) Sodium (137-145) mmol/L Potassium (3.6-5.0) mmol/L Chloride (98-107) mmol/L Carbon Dioxide (22-30) mmol/L Anion Gap mmol/L BUN (9-20) mg/dL Creatinine (0.8-1.3) mg/dL Estimated GFR ml/min BUN/Creatinine Ratio % Glucose (75-100) mg/dL POC Glucose 152 H (70-105) mg/dL Calcium (8.4-10.2) mg/dL Total Bilirubin (0.1-1.2) mg/dL AST (5-40) units/L ALT (7-56) units/L Alkaline Phosphatase (35-129) units/L Total Creatine Kinase 593 H (55-170) units/L CK-MB (CK-2) 18.6 H (0.0-4.0) ng/mL CK-MB (CK-2) Rel Index 3.1 (0-4) Troponin T (0.00-0.029) ng/mL Total Protein (6.3-8.2) g/dL Albumin (3.9-5) g/dL Albumin/Globulin Ratio % Triglycerides (2-149) mg/dL Cholesterol (50-199) mg/dL LDL Cholesterol Direct (50-130) mg/dL HDL Cholesterol (40-59) mg/dL Cholesterol/HDL Ratio % 12/17/20 12/17/20 12/17/20 Range/Units 04:47 04:47 04:47 WBC (4.5-11.0) K/mm3 RBC (3.65-5.03) M/mm3 Hgb (11.8-15.2) gm/dl Hct (35.5-45.6) % MCV (84-94) fl MCH (28-32) pg MCHC (32-34) % RDW (13.2-15.2) % Plt Count (140-440) K/mm3 Lymph % (Auto) (13.4-35.0) % [place] % (Auto) (0.0-7.3) % Eos % (Auto) (0.0-4.3) % Baso % (Auto) (0.0-1.8) % Lymph # (Auto) (1.2-5.4) K/mm3 [place] # (Auto) (0.0-0.8) K/mm3 Eos # (Auto) (0.0-0.4) K/mm3 Baso # (Auto) (0.0-0.1) K/mm3 Seg Neutrophils % (40.0-70.0) % Seg Neutrophils # (1.8-7.7) K/mm3 PT 17.9 H (12.2-14.9) Sec. INR 1.48 H (0.87-1.13) Sodium 141 (137-145) mmol/L Potassium 4.7 D (3.6-5.0) mmol/L Chloride 96.2 L (98-107) mmol/L Carbon Dioxide 21 L D (22-30) mmol/L Anion Gap 29 mmol/L BUN 79 H (9-20) mg/dL Creatinine 11.4 H (0.8-1.3) mg/dL Estimated GFR 6 ml/min BUN/Creatinine Ratio 7 % Glucose 104 H (75-100) mg/dL POC Glucose (70-105) mg/dL Calcium 7.7 L (8.4-10.2) mg/dL Total Bilirubin (0.1-1.2) mg/dL AST (5-40) units/L ALT (7-56) units/L Alkaline Phosphatase (35-129) units/L Total Creatine Kinase (55-170) units/L CK-MB (CK-2) (0.0-4.0) ng/mL CK-MB (CK-2) Rel Index (0-4) Troponin T 0.991 H* (0.00-0.029) ng/mL Total Protein (6.3-8.2) g/dL Albumin (3.9-5) g/dL Albumin/Globulin Ratio % Triglycerides (2-149) mg/dL Cholesterol (50-199) mg/dL LDL Cholesterol Direct (50-130) mg/dL HDL Cholesterol (40-59) mg/dL Cholesterol/HDL Ratio % 12/17/20 Range/Units 07:23 WBC (4.5-11.0) K/mm3 RBC (3.65-5.03) M/mm3 Hgb (11.8-15.2) gm/dl Hct (35.5-45.6) % MCV (84-94) fl MCH (28-32) pg MCHC (32-34) % RDW (13.2-15.2) % Plt Count (140-440) K/mm3 Lymph % (Auto) (13.4-35.0) % [place] % (Auto) (0.0-7.3) % Eos % (Auto) (0.0-4.3) % Baso % (Auto) (0.0-1.8) % Lymph # (Auto) (1.2-5.4) K/mm3 [place] # (Auto) (0.0-0.8) K/mm3 Eos # (Auto) (0.0-0.4) K/mm3 Baso # (Auto) (0.0-0.1) K/mm3 Seg Neutrophils % (40.0-70.0) % Seg Neutrophils # (1.8-7.7) K/mm3 PT (12.2-14.9) Sec. INR (0.87-1.13) Sodium (137-145) mmol/L Potassium (3.6-5.0) mmol/L Chloride (98-107) mmol/L Carbon Dioxide (22-30) mmol/L Anion Gap mmol/L BUN (9-20) mg/dL Creatinine (0.8-1.3) mg/dL Estimated GFR ml/min BUN/Creatinine Ratio % Glucose (75-100) mg/dL POC Glucose 93 (70-105) mg/dL Calcium (8.4-10.2) mg/dL Total Bilirubin (0.1-1.2) mg/dL AST (5-40) units/L ALT (7-56) units/L Alkaline Phosphatase (35-129) units/L Total Creatine Kinase (55-170) units/L CK-MB (CK-2) (0.0-4.0) ng/mL CK-MB (CK-2) Rel Index (0-4) Troponin T (0.00-0.029) ng/mL Total Protein (6.3-8.2) g/dL Albumin (3.9-5) g/dL Albumin/Globulin Ratio % Triglycerides (2-149) mg/dL Cholesterol (50-199) mg/dL LDL Cholesterol Direct (50-130) mg/dL HDL Cholesterol (40-59) mg/dL Cholesterol/HDL Ratio % Coagulation 12/17/20 Range/Units 04:47 PT 17.9 H (12.2-14.9) Sec. INR 1.48 H (0.87-1.13) Lipids 12/16/20 Range/Units 21:58 Triglycerides 104 (2-149) mg/dL Cholesterol 197 (50-199) mg/dL HDL Cholesterol 84 H (40-59) mg/dL Cholesterol/HDL Ratio 2.34 % CBC 12/16/20 12/17/20 Range/Units 20:22 04:47 WBC 9.9 9.7 (4.5-11.0) K/mm3 RBC 3.44 L 2.99 L (3.65-5.03) M/mm3 Hgb 9.7 L 8.4 L (11.8-15.2) gm/dl Hct 29.5 L 25.8 L (35.5-45.6) % Plt Count 315 287 (140-440) K/mm3 Lymph # (Auto) 1.1 L 0.9 L (1.2-5.4) K/mm3 [place] # (Auto) 0.9 H 1.3 H (0.0-0.8) K/mm3 Eos # (Auto) 0.0 0.1 (0.0-0.4) K/mm3 Baso # (Auto) 0.1 0.1 (0.0-0.1) K/mm3 Comprehensive Metabolic Panel 12/16/20 12/17/20 Range/Units 20:22 04:47 Sodium 141 141 (137-145) mmol/L Potassium 7.2 H* D 4.7 D (3.6-5.0) mmol/L Chloride 95.7 L 96.2 L (98-107) mmol/L Carbon Dioxide 14 L D 21 L D (22-30) mmol/L BUN 106 H 79 H (9-20) mg/dL Creatinine 14.7 H D 11.4 H (0.8-1.3) mg/dL Glucose 162 H 104 H (75-100) mg/dL Calcium 7.6 L 7.7 L (8.4-10.2) mg/dL AST 47 H (5-40) units/L ALT 73 H (7-56) units/L Alkaline Phosphatase 327 H (35-129) units/L Total Protein 7.2 (6.3-8.2) g/dL Albumin 4.3 (3.9-5) g/dL Assessment and Plan Nonspecific chronic troponin elevation in setting of ESRD ESRD on HD Non-compliance Htn DM Recommend: Repeat echocardiogram Hemodialysis per nephrology Titrate BP meds as needed
[2020-12-17] MEDS: LISINOPRIL 20 MG TAB PO SCH (22:09)
[2020-12-18] MEDS: ONDANSETRON 4 MG/2 ML INJ IV PRN ×2 (04:12→11:06)
[2020-12-18] MEDS: hydrALAZINE 20 MG/1 ML INJ IV PRN ×2 (04:12→12:01)
[2020-12-18] MEDS: HEPARIN 5,000 UNIT/1 ML VIAL SUB-Q SCH ×3 (07:10→21:48)
[2020-12-18] MEDS: INSULIN REGULAR, HUMAN 100 UNITS/1 ML SUB-Q SCH ×4 (08:55→21:53)
--- NOTE | 2020-12-18 09:08 | Progress Note ---
Assessment and Plan Assessment and plan: 35-year-old -Citizen Of [place] male with known history of end-stage renal disease on dialysis Wednesdays and Fridays presenting to the emergency room today complaining of nausea vomiting with associated abdominal pain. Symptoms was said to have started about 3 days ago and got worse today. He has missed 2 sessions of his dialysis, last dialysis was on Saturday. Abdominal pain is said to be epigastric and also radiating towards his lower chest. On a scale of 10 pain was about 10/10. He denies any fever or chills, no headache or dizziness, no diaphoresis. Patient has had some coffee-ground emesis according to him. He has had this type of presentation on many occasions. Work-up in the emergency room today reveals elevated troponin, hyperkalemia with potassium of 7. Senior Human Resources Representative on-call has been consulted by the ER physician. Patient will be scheduled for immediate dialysis. He received insulin and glucose, calcium gluconate in the emergency room for his hyperkalemia. Patient has been admitted for his nausea and vomiting with abdominal pain, chest pain and hyperkalemia. 12/17: Patient seen and examined reports some improvement. Unfortunately has not followed up discharge instructions which is unremarkable recommended in the past. Again I have had extensive discussion with the patient. Hypokalemia has improved. We will start the patient on Reglan and also add Bentyl. No toxic appearance noted at this time. Will monitor 1 additional day of discharge in a.m. 12/18: Persistent intractable nausea and vomiting we will add Phenergan. LA. As patient is unable to give any p.o. down. Will start on morphine every 6 hours as needed 2 mg. Patient is very noncompliant have discussed with him extensively the importance of being compliant and following with plan outlined including evaluation at tertiary institution for severe gastroparesis also to obtain a pain physician. While he may border of the pain seeking behavior he does have significant clinical problems but unfortunately has not been following up as recommended resulted in missed treatments. Will monitor 1 additional night of anticipate discharge in a.m. (1) Chest pain Current Visit: Yes Status: Acute Qualifiers: Chest pain type: unspecified Qualified Code(s): R07.9 - Chest pain, unspecified Plan to address problem: Will follow serial cardiac enzymes. Patient will be placed on aspirin, sublingual nitroglycerin and IV morphine as needed for chest pain. We will await evaluation by cardiology. (2) Hyperkalemia Current Visit: Yes Status: Acute Plan to address problem: Patient has received insulin and glucose, calcium gluconate in the emergency room. He has been asked scheduled for immediate dialysis. We will follow potassium levels. (3) Nausea & vomiting Current Visit: Yes Status: Acute Qualifiers: Vomiting type: unspecified Vomiting Intractability: non-intractable Qualified Code(s): R11.2 - Nausea with vomiting, unspecified Plan to address problem: Patient placed on IV Zofran as needed. He has known history of gastroparesis. (4) End-stage renal disease needing dialysis Current Visit: Yes Status: Chronic Plan to address problem: Consult placed to nephrology for dialysis. Patient has been encouraged to be compliant with his dialysis. (5) Diabetes mellitus Current Visit: No Status: Acute Plan to address problem: We will monitor Accu-Cheks closely. (6) Hypertensive urgency Current Visit: No Status: Acute Plan to address problem: Resume routine home medications and monitor vital signs closely. (7) DVT prophylaxis Current Visit: No Status: Acute Plan to address problem: Patient placed on subcutaneous heparin. (8) Full code status Current Visit: No Status: Acute Plan to address problem: Patient is a full code. History Interval history: Patient seen and examined per nursing staff and patient vomited throughout the night. This morning complaining of abdominal pain Hospitalist Physical - Physical exam Narrative exam: General appearance: Present: no acute distress, well-nourished - EENT Eyes: Present: PERRL, EOM intact. Absent: scleral icterus ENT: hearing intact, clear oral mucosa, dentition normal - Neck Neck: Present: supple, normal ROM - Respiratory Respiratory effort: normal Respiratory: bilateral: CTA - Cardiovascular Rhythm: regular Heart Sounds: Present: S1 & S2. Absent: gallop, systolic murmur, diastolic murmur, rub, click - Extremities Extremities: no ischemia, pulses intact, pulses symmetrical, No edema, normal temperature, normal color, Full ROM Peripheral Pulses: within normal limits - Abdominal General gastrointestinal: Present: soft, non-tender, non-distended, normal bowel sounds. Absent: mass - Integumentary Integumentary: Present: clear, warm, dry. Absent: rash - Musculoskeletal Musculoskeletal: strength equal bilaterally - Psychiatric Psychiatric: appropriate mood/affect, intact judgment & insight, memory intact, cooperative - Neurologic Neurologic: CNII-XII intact, no focal deficits, moves all extremities - Additional findings Additional findings: Open Wound -3x3cm in diameter over dorsal aspect of Left Wrist. Non-tender, no obvious Discharge. - Constitutional Vitals: Temp Pulse Resp BP Pulse Ox 99.1 F 96 H 18 190/123 96 12/17/20 23:14 12/17/20 23:14 12/17/20 23:14 12/17/20 23:14 12/17/20 23:14 General appearance: Present: no acute distress HEART Score - HEART Score EKG: Normal Age: < 45 Risk factors: > 3 risk factors or hx of atherosclerotic disease Troponin: Troponin T 0.991 ng/mL (0.00-0.029) H* 12/17/20 04:47 Troponin: > 3x normal limit Results - Labs CBC & Chem 7: 12/17/20 04:47 12/17/20 04:47 Labs: Laboratory Last Values WBC 9.7 K/mm3 (4.5-11.0) 12/17/20 04:47 RBC 2.99 M/mm3 (3.65-5.03) L 12/17/20 04:47 Hgb 8.4 gm/dl (11.8-15.2) L 12/17/20 04:47 Hct 25.8 % (35.5-45.6) L 12/17/20 04:47 MCV 86 fl (84-94) 12/17/20 04:47 MCH 28 pg (28-32) 12/17/20 04:47 MCHC 32 % (32-34) 12/17/20 04:47 RDW 20.3 % (13.2-15.2) H 12/17/20 04:47 Plt Count 287 K/mm3 (140-440) 12/17/20 04:47 Lymph % (Auto) 9.1 % (13.4-35.0) L 12/17/20 04:47 [place] % (Auto) 13.0 % (0.0-7.3) H 12/17/20 04:47 Eos % (Auto) 0.6 % (0.0-4.3) 12/17/20 04:47 Baso % (Auto) 1.0 % (0.0-1.8) 12/17/20 04:47 Lymph # (Auto) 0.9 K/mm3 (1.2-5.4) L 12/17/20 04:47 [place] # (Auto) 1.3 K/mm3 (0.0-0.8) H 12/17/20 04:47 Eos # (Auto) 0.1 K/mm3 (0.0-0.4) 12/17/20 04:47 Baso # (Auto) 0.1 K/mm3 (0.0-0.1) 12/17/20 04:47 Seg Neutrophils % 76.3 % (40.0-70.0) H 12/17/20 04:47 Seg Neutrophils # 7.4 K/mm3 (1.8-7.7) 12/17/20 04:47 PT 17.9 Sec. (12.2-14.9) H 12/17/20 04:47 INR 1.48 (0.87-1.13) H 12/17/20 04:47 Sodium 141 mmol/L (137-145) 12/17/20 04:47 Potassium 4.7 mmol/L (3.6-5.0) D 12/17/20 04:47 Chloride 96.2 mmol/L (98-107) L 12/17/20 04:47 Carbon Dioxide 21 mmol/L (22-30) L D 12/17/20 04:47 Anion Gap 29 mmol/L 12/17/20 04:47 BUN 79 mg/dL (9-20) H 12/17/20 04:47 Creatinine 11.4 mg/dL (0.8-1.3) H 12/17/20 04:47 Estimated GFR 6 ml/min 12/17/20 04:47 BUN/Creatinine Ratio 7 % 12/17/20 04:47 Glucose 104 mg/dL (75-100) H 12/17/20 04:47 POC Glucose 120 mg/dL (70-105) H 12/18/20 07:53 Calcium 7.7 mg/dL (8.4-10.2) L 12/17/20 04:47 Total Bilirubin 0.60 mg/dL (0.1-1.2) 12/16/20 20:22 AST 47 units/L (5-40) H 12/16/20 20:22 ALT 73 units/L (7-56) H 12/16/20 20:22 Alkaline Phosphatase 327 units/L (35-129) H 12/16/20 20:22 Total Creatine Kinase 593 units/L (55-170) H 12/16/20 21:58 CK-MB (CK-2) 18.6 ng/mL (0.0-4.0) H 12/16/20 21:58 CK-MB (CK-2) Rel Index 3.1 (0-4) 12/16/20 21:58 Troponin T 0.991 ng/mL (0.00-0.029) H* 12/17/20 04:47 Total Protein 7.2 g/dL (6.3-8.2) 12/16/20 20:22 Albumin 4.3 g/dL (3.9-5) 12/16/20 20:22 Albumin/Globulin Ratio 1.5 % 12/16/20 20:22 Triglycerides 104 mg/dL (2-149) 12/16/20 21:58 Cholesterol 197 mg/dL (50-199) 12/16/20 21:58 LDL Cholesterol Direct 103 mg/dL (50-130) 12/16/20 21:58 HDL Cholesterol 84 mg/dL (40-59) H 12/16/20 21:58 Cholesterol/HDL Ratio 2.34 % 12/16/20 21:58 Active Medications - Current Medications Current Medications: Generic Name Dose Route Start Last Admin Trade Name Freq PRN Reason Stop Dose Admin Acetaminophen 650 mg 12/16/20 22:59 12/17/20 11:12 Acetaminophen 325 Mg Tab PO 650 mg Q4H PRN Administration Pain MILD(1-3)/Fever >100.5/LANZA Aspirin 325 mg 12/17/20 10:00 12/17/20 11:08 Aspirin Ec 325 Mg Tab PO 325 mg QDAY KESHIA Administration Dextrose 0 ml 12/16/20 22:59 Dextrose 50% In Water (25gm) 50 Ml Syringe IV Q30MIN PRN Hypoglycemia Protocol Dicyclomine HCl 20 mg 12/17/20 10:00 12/17/20 22:08 Dicyclomine 10 Mg/5 Ml Oral Liqd PO Not Given QID KESHIA Heparin Sodium (Porcine) 5,000 unit 12/17/20 06:00 12/18/20 07:10 Heparin 5,000 Unit/1 Ml Vial SUB-Q Not Given Q8HR ON LICENSE OF [facility] Hydralazine HCl 10 mg 12/16/20 23:23 12/18/20 04:12 Hydralazine 20 Mg/1 Ml Inj IV 10 mg Q4H PRN Administration Blood Pressure Hydralazine HCl 100 mg 12/17/20 08:00 12/17/20 20:00 Hydralazine 100 Mg Tab PO Not Given TID ON LICENSE OF [facility] Sodium Chloride 100 mls @ 999 mls/hr 12/17/20 12:41 Nacl 0.9% IV BRENDAN PRN Hypotension Insulin Human Regular 0 units 12/17/20 07:30 12/18/20 08:55 Insulin Regular, Human 100 Units/1 Ml SUB-Q Not Given ACHS ON LICENSE OF [facility] Protocol Labetalol HCl 100 mg 12/17/20 08:00 12/17/20 20:00 Labetalol 100 Mg Tab PO Not Given TID ON LICENSE OF [facility] Lisinopril 20 mg 12/17/20 22:00 12/17/20 22:09 Lisinopril 20 Mg Tab PO Not Given QHS ON LICENSE OF [facility] Magnesium Hydroxide 30 ml 12/16/20 22:59 Magnesium Hydroxide (Mom) Oral Liqd Udc PO Q4H PRN Constipation Metoclopramide HCl 5 mg 12/17/20 11:30 12/17/20 22:09 Metoclopramide 10 Mg Tab PO Not Given ACHS ON LICENSE OF [facility] Morphine Sulfate 2 mg 12/18/20 08:03 12/18/20 08:54 Morphine 2 Mg/1 Ml Inj IV 2 mg Q6H PRN Administration Pain, Moderate (4-6) Nifedipine 60 mg 12/17/20 10:00 12/17/20 22:09 Nifedipine Xl 60 Mg Tab PO Not Given Q12HR ON LICENSE OF [facility] Nitroglycerin 0.4 mg 12/16/20 22:59 Nitroglycerin 0.4 Mg Tab Subl SL Q5M PRN Chest Pain Ondansetron HCl 4 mg 12/16/20 22:59 12/18/20 04:12 Ondansetron 4 Mg/2 Ml Inj IV 4 mg Q8H PRN Administration Nausea And Vomiting Pantoprazole Sodium 40 mg 12/17/20 10:00 12/17/20 22:09 Pantoprazole 40 Mg Tab PO Not Given BID KESHIA Promethazine HCl 25 mg 12/18/20 08:33 Promethazine 25 Mg Tab PO Q6H PRN Nausea And Vomiting Sodium Chloride 10 ml 12/17/20 10:00 12/17/20 23:24 Sodium Chloride 0.9% 10 Ml Flush Syringe IV 10 ml BID KESHIA Administration Sodium Chloride 10 ml 12/16/20 22:59 Sodium Chloride 0.9% 10 Ml Flush Syringe IV PRN PRN LINE FLUSH Nutrition/Malnutrition Assess - Dietary Evaluation Nutrition/Malnutrition Findings: Nutrition Notes Start: 12/17/20 11:07 Freq: Status: Active Protocol: Document 12/17/20 11:07 JOSUE (Rec: 12/17/20 11:14 [id number]) Nutrition Notes Need for Assessment generated from: MD Order,Education Initial or Follow up Assessment Current Diagnosis CKD (stage V CKD),COPD, Coronary Artery Disease, Diabetes,Hypertension Other Pertinent Diagnosis N/V, abdominal pain, Chest pain, missed HD Current Diet Renal Labs/Tests BUN 79 Cr 11.4 Pertinent Medications Reviewed Height 6 ft 3 in Weight 100.7 kg [place] Body Weight (kg) 89.09 BMI 27.7 Weight Status Overweight Subjective/Other Information RD consulted for diet education. Pt with multiple admissions this and last year and received diet education for DM and renal dz multiple times. He refused diet education on 12/11/20. Pt with hx of non-compliance with HD. Burn Absent Trauma Absent GI Symptoms Nausea,Vomiting Minimum of two criteria No #1 Nutrition Diagnosis Predicted suboptimal energy intake Etiology admitting dx As Evidenced by Signs and Symptoms pt admitted with chest pain, abdominal pain, N/V Is patient on ventilator? No Is Patient Ambulatory and/or Out of Bed No [facility] 1377.112 Calculation Used for Recommendations [facility] Additional Notes Pro needs >1.2g/kg: >121g/day Fluid needs 1-1.5L/day Nutrition Intervention Change Diet Order: Continue current diet order Goal #1 PO tolerance Goal #2 PO intake of meals to meet at least 75% energy and pro needs Anticipated Discharge Needs: Continue renal/CHO-controlled diet Follow-Up By: 12/21/20 Additional Comments F/U: intakes
[2020-12-18] MEDS: METOCLOPRAMIDE 10 MG TAB PO SCH ×4 (10:28→21:47)
[2020-12-18] MEDS: PANTOPRAZOLE 40 MG TAB PO SCH ×3 (10:29→21:48)
[2020-12-18] MEDS: NIFEdipine XL 60 MG TAB PO SCH ×3 (10:29→21:46)
[2020-12-18] MEDS: DICYCLOMINE 10 MG/5 ML ORAL LIQD PO SCH ×4 (10:29→21:48)
[2020-12-18] MEDS: hydrALAZINE 100 MG TAB PO SCH ×4 (10:29→20:45)
[2020-12-18] MEDS: ASPIRIN EC 325 MG TAB PO SCH (10:29)
[2020-12-18] MEDS: MORPHINE 2 MG/1 ML INJ IV PRN ×2 (11:05→17:28)
--- NOTE | 2020-12-18 12:48 | Progress Note ---
Assessment and Plan - Patient Problems (1) End-stage renal disease needing dialysis Current Visit: Yes Status: Chronic Plan to address problem: Will place on MWF inpatinet HD schedule. (2) Hyperkalemia Current Visit: Yes Status: Acute Plan to address problem: In the setting of multiple missed hemodialysis treatments. Corrected with hemodialysist. Counseled patient on importance of hemodialysis compliance as well as complying with low potassium diet at home. (3) Nausea & vomiting Current Visit: Yes Status: Acute Qualifiers: Vomiting type: unspecified Vomiting Intractability: non-intractable Qualified Code(s): R11.2 - Nausea with vomiting, unspecified Plan to address problem: Secondary to history of gastroparesis which is also further complicated by multiple missed hemodialysis treatments and likely underlying uremic symptoms. Symptomatic management per primary attending. Anticipate that with further hemodialysis his symptoms should start to improve as well. Elevated blood pressures complicated by inability of patient to keep anything down with his persistent nausea/vomiting. (4) Type 2 diabetes mellitus with diabetic chronic kidney disease Current Visit: Yes Status: Chronic Qualifiers: Chronic kidney disease stage: on chronic dialysis Plan to address problem: Management per primary attending. (5) Hypertensive chronic kidney disease with stage 5 chronic kidney disease or end stage renal disease Current Visit: Yes Status: Chronic Plan to address problem: Monitor blood pressures under current regimen. Elevated as he has not had his nausea and vomiting well controlled in order to prevent vomiting his medicatio ns. Phergan added by PCP. Need to monitor closely. Subjective Date of service: 12/18/20 Interval history: Tolerated HD well without any issues. S/o nausea and vomiting. Objective - Vital Signs Vital signs: Vital Signs - 12hr 12/18/20 12/18/20 10:51 11:37 Temperature 98.8 F Pulse Rate 98 H 101 H Respiratory 19 Rate Blood Pressure 219/126 O2 Sat by Pulse 91 Oximetry - General Appearance General appearance: appears stated age EENT: ATNC Neck: no JVD Respiratory: Present: Clear to Ascultation, Normal Exam Cardiology: regular Gastrointestinal: normal Integumentary: no rash Neurologic: no focal deficit Musculoskeletal: deferred Psychiatric: cooperative - Lab 12/17/20 04:47 12/17/20 04:47 Most recent lab results Calcium 7.7 mg/dL (8.4-10.2) L 12/17/20 04:47 - Allied health notes Allied health notes reviewed: nursing Medications & Allergies - Medications Allergies/Adverse Reactions: Allergies No Known Allergies Allergy (Verified 07/20/20 15:05) Home Medications: Home Medications Medication Instructions Recorded Confirmed Last Taken Type Lispro Insulin [HumaLOG] 5 unit SQ AC #1 vial 04/17/20 12/17/20 09/05/20 17:00 Rx Ondansetron [Zofran ODT TAB] 4 mg PO Q8HR PRN #14 tab.rapdis 10/05/20 12/17/20 Unknown Rx Albuterol Sulfate [Albuterol 0.63% 0.63 mg IH BID PRN #60 vial 11/03/20 12/17/20 Unknown Rx NEBS] Insulin Detemir [Levemir Flextouch] 10 units SQ PC 30 Days 11/03/20 12/17/20 Unknown Rx Metoclopramide [Reglan TAB] 10 mg PO TID PRN #30 11/03/20 12/17/20 Unknown Rx NIFEdipine XL [Procardia Xl] 60 mg PO Q12HR #60 tablet 11/03/20 12/17/20 Unknown Rx Pantoprazole [Protonix TAB] 40 mg PO BID #60 tab 11/03/20 12/17/20 Unknown Rx hydrALAZINE [Apresoline TAB] 100 mg PO TID #90 tab 11/03/20 12/17/20 Unknown Rx labetaloL [Labetalol 100mg TAB] 100 mg PO TID #90 tablet 11/03/20 12/17/20 Unknown Rx labetaloL [Labetalol 200mg TAB] 200 mg PO TID #90 tablet 11/03/20 12/17/20 Unknown Rx lisinopriL [Zestril TAB] 20 mg PO QHS #30 tablet 11/03/20 12/17/20 Unknown Rx oxyCODONE /ACETAMINOPHEN [Percocet 1 tab PO Q6H PRN #14 tablet 11/03/20 12/17/20 Unknown Rx 5/325 mg] Active Medications: Generic Name Dose Route Start Last Admin Trade Name Freq PRN Reason Stop Dose Admin Acetaminophen 650 mg 12/16/20 22:59 12/17/20 11:12 Acetaminophen 325 Mg Tab PO 650 mg Q4H PRN Administration Pain MILD(1-3)/Fever >100.5/LANZA Aspirin 325 mg 12/17/20 10:00 12/18/20 10:29 Aspirin Ec 325 Mg Tab PO Not Given QDAY [facility] Dextrose 0 ml 12/16/20 22:59 Dextrose 50% In Water (25gm) 50 Ml Syringe IV Q30MIN PRN Hypoglycemia Protocol Dicyclomine HCl 20 mg 12/17/20 10:00 12/18/20 10:29 Dicyclomine 10 Mg/5 Ml Oral Liqd PO Not Given QID [facility] Heparin Sodium (Porcine) 5,000 unit 12/17/20 06:00 12/18/20 07:10 Heparin 5,000 Unit/1 Ml Vial SUB-Q Not Given Q8HR [facility] Hydralazine HCl 10 mg 12/16/20 23:23 12/18/20 12:01 Hydralazine 20 Mg/1 Ml Inj IV 10 mg Q4H PRN Administration Blood Pressure Hydralazine HCl 100 mg 12/17/20 08:00 12/18/20 12:12 Hydralazine 100 Mg Tab PO 100 mg TID [facility] Administration Sodium Chloride 100 mls @ 999 mls/hr 12/17/20 12:41 Nacl 0.9% IV BRENDAN PRN Hypotension Insulin Human Regular 0 units 12/17/20 07:30 12/18/20 12:12 Insulin Regular, Human 100 Units/1 Ml SUB-Q Not Given ACHS [facility] Protocol Labetalol HCl 100 mg 12/17/20 08:00 12/18/20 12:11 Labetalol 100 Mg Tab PO 100 mg TID [facility] Administration Lisinopril 20 mg 12/17/20 22:00 12/17/20 22:09 Lisinopril 20 Mg Tab PO Not Given QHS [facility] Magnesium Hydroxide 30 ml 12/16/20 22:59 Magnesium Hydroxide (Mom) Oral Liqd Udc PO Q4H PRN Constipation Metoclopramide HCl 5 mg 12/17/20 11:30 12/18/20 12:12 Metoclopramide 10 Mg Tab PO 5 mg ACHS [facility] Administration Morphine Sulfate 2 mg 12/18/20 08:03 12/18/20 11:05 Morphine 2 Mg/1 Ml Inj IV 2 mg Q6H PRN Administration Pain, Moderate (4-6) Nifedipine 60 mg 12/17/20 10:00 12/18/20 12:11 Nifedipine Xl 60 Mg Tab PO 60 mg Q12HR KESHIA Administration Nitroglycerin 0.4 mg 12/16/20 22:59 Nitroglycerin 0.4 Mg Tab Subl SL Q5M PRN Chest Pain Ondansetron HCl 4 mg 12/16/20 22:59 12/18/20 11:06 Ondansetron 4 Mg/2 Ml Inj IV 4 mg Q8H PRN Administration Nausea And Vomiting Pantoprazole Sodium 40 mg 12/17/20 10:00 12/18/20 12:12 Pantoprazole 40 Mg Tab PO 40 mg BID KESHIA Administration Promethazine HCl 25 mg 12/18/20 08:33 Promethazine 25 Mg Tab PO Q6H PRN Nausea And Vomiting Sodium Chloride 10 ml 12/17/20 10:00 12/18/20 12:12 Sodium Chloride 0.9% 10 Ml Flush Syringe IV 10 ml BID KESHIA Administration Sodium Chloride 10 ml 12/16/20 22:59 Sodium Chloride 0.9% 10 Ml Flush Syringe IV PRN PRN LINE FLUSH
[2020-12-18] MEDS: PROMETHAZINE 25 MG TAB PO PRN ×2 (14:15→21:46)
--- NOTE | 2020-12-18 15:14 | Progress Note ---
Assessment and Plan Nonspecific chronic troponin elevation in setting of ESRD ESRD on HD Non-compliance Htn DM Recommend: Repeat echocardiogram Hemodialysis per nephrology Increase labetalol Subjective Date of service: 12/18/20 Interval history: No acute events. BP markedly elevated. Objective Vital Signs Temp Pulse Resp BP Pulse Ox 12/18/20 11:37 98.8 F 101 H 19 219/126 91 12/18/20 10:51 98 H 12/17/20 23:14 99.1 F 96 H 18 190/123 96 12/17/20 22:00 103 H 12/17/20 19:57 98.4 F 96 H 17 195/101 98 12/17/20 19:00 98.0 F 88 18 200/110 12/17/20 18:45 89 212/119 12/17/20 18:30 92 H 209/121 12/17/20 18:15 92 H 213/124 12/17/20 18:00 92 H 211/126 12/17/20 17:45 92 H 213/124 12/17/20 17:30 90 216/123 12/17/20 17:15 93 H 211/131 12/17/20 17:00 90 201/124 12/17/20 16:45 90 207/117 12/17/20 16:30 90 200/122 12/17/20 16:15 92 H 206/118 12/17/20 16:00 98.5 F 94 H 18 204/119 - Physical Examination Neck: Positive: neck supple Cardiac: Positive: Reg Rate and Rhythm Lungs: Positive: Decreased Breath Sounds Abdomen: Positive: Soft, Active Bowel Sounds - Allied health notes Allied health notes reviewed: nursing
[2020-12-18] MEDS: ACETAMINOPHEN 325 MG TAB PO PRN (21:46)
[2020-12-18] MEDS: LISINOPRIL 20 MG TAB PO SCH (21:46)
[2020-12-19 05:50] LABS: Hematocrit 23.6 % (35.5-45.6); Hemoglobin 7.8 gm/dl (11.8-15.2); Mean Corpuscular HGB Conc 33 % (32-34); Mean Corpuscular Volume 84 fl (84-94); Platelet Count 287 K/mm3 (140-440); Red Blood Count 2.81 M/mm3 (3.65-5.03); Red Cell Distribution Width 19.7 % (13.2-15.2)
[2020-12-19 06:07] LABS: Calcium 7.2 mg/dL (8.4-10.2)
[2020-12-19] MEDS: HEPARIN 5,000 UNIT/1 ML VIAL SUB-Q SCH (06:38)
[2020-12-19] MEDS: INSULIN REGULAR, HUMAN 100 UNITS/1 ML SUB-Q SCH (07:35)
[2020-12-19] MEDS: hydrALAZINE 100 MG TAB PO SCH (08:33)
[2020-12-19] MEDS: METOCLOPRAMIDE 10 MG TAB PO SCH (08:33)
[2020-12-19] MEDS: ASPIRIN EC 325 MG TAB PO SCH (09:56)
[2020-12-19] MEDS: PANTOPRAZOLE 40 MG TAB PO SCH (09:56)
[2020-12-19] MEDS: NIFEdipine XL 60 MG TAB PO SCH (09:56)
[2020-12-19] MEDS: DICYCLOMINE 10 MG/5 ML ORAL LIQD PO SCH (09:56)
--- NOTE | 2020-12-19 10:43 | Discharge Summary ---
Providers - Providers Date of Admission: 12/16/20 22:24 Attending physician: BERNARDINO PHAN MD 12/16/20 Consult to Cardiac Rehabilitation [CONS] Routine Reason For Exam: Phase I 12/16/20 21:50 Consult to Physician [CONS] Routine Comment: Dr. Harp spoke with Dr. Laird @ [id number] Consulting Provider: VIKRAM LAIRD Physician Instructions: Reason For Exam: em hd, high k 12/16/20 22:59 Consult to Cardiology [CONS] Routine Consulting Provider: ISSAC MURPHY Reason For Exam: Chest Pain, Elevated troponin Consult to Dietitian/Nutrition [CONS] Routine Physician Instructions: Reason For Exam: Reason for Consult: Diet education Primary care physician: [employer]ROLL SUPERVISOR Hospitalization Reason for admission: Intractable nausea Condition: Stable Hospital course: 35-year-old -[place] male with known history of end-stage renal disease on dialysis Wednesdays and Fridays presenting to the emergency room today complaining of nausea vomiting with associated abdominal pain. Symptoms was said to have started about 3 days ago and got worse today. He has missed 2 sessions of his dialysis, last dialysis was on Saturday. Abdominal pain is said to be epigastric and also radiating towards his lower chest. On a scale of 10 pain was about 10/10. He denies any fever or chills, no headache or dizziness, no diaphoresis. Patient has had some coffee-ground emesis according to him. He has had this type of presentation on many occasions. Work-up in the emergency room today reveals elevated troponin, hyperkalemia with potassium of 7. Joint Filler on-call has been consulted by the ER physician. Patient will be scheduled for immediate dialysis. He received insulin and glucose, calcium gluconate in the emergency room for his hyperkalemia. Patient has been admitted for his nausea and vomiting with abdominal pain, chest pain and hyperkalemia. 12/17: Patient seen and examined reports some improvement. Unfortunately has not followed up discharge instructions which is unremarkable recommended in the past. Again I have had extensive discussion with the patient. Hypokalemia has improved. We will start the patient on Reglan and also add Bentyl. No toxic appearance noted at this time. Will monitor 1 additional day of discharge in a.m. 12/18: Persistent intractable nausea and vomiting we will add Phenergan. ME. As patient is unable to give any p.o. down. Will start on morphine every 6 hours as needed 2 mg. Patient is very noncompliant have discussed with him extensively the importance of being compliant and following with plan outlined including evaluation at tertiary institution for severe gastroparesis also to obtain a pain physician. While he may border of the pain seeking behavior he does have significant clinical problems but unfortunately has not been following up as recommended resulted in missed treatments. Will monitor 1 additional night of anticipate discharge in a.m. 12/19: Patient seen and examined this am, BP meds increased and I have discussed this with the patient. I have also discussed the repeated admissions and the recommendations including follow up at [facility] and including the pain or management recommendations he verbalized understanding he is not sure why he has not done this but promises to follow the recommended requirements and also promises to be compliant with his dialysis. He does not have any further nausea vomiting this morning. And is stable for discharge. (1) Chest pain secondary to GERD Current Visit: Yes Status: Acute Qualifiers: Chest pain type: unspecified Qualified Code(s): R07.9 - Chest pain, unspecified Plan to address problem: Will follow serial cardiac enzymes. Patient will be placed on aspirin, sublingual nitroglycerin and IV morphine as needed for chest pain. We will await evaluation by cardiology. (2) Hyperkalemia Current Visit: Yes Status: Acute Plan to address problem: Patient has received insulin and glucose, calcium gluconate in the emergency room. He has been asked scheduled for immediate dialysis. We will follow potassium levels. (3) Intractable Nausea & vomiting Current Visit: Yes Status: Acute Qualifiers: Vomiting type: unspecified Vomiting Intractability: non-intractable Qualified Code(s): R11.2 - Nausea with vomiting, unspecified Plan to address problem: Patient placed on IV Zofran as needed. He has known history of gastroparesis. (4) End-stage renal disease needing dialysis Current Visit: Yes Status: Chronic Plan to address problem: Consult placed to nephrology for dialysis. Patient has been encouraged to be compliant with his dialysis. (5) Diabetes mellitus Current Visit: No Status: Acute Plan to address problem: We will monitor Accu-Cheks closely. (6) Hypertensive urgency Current Visit: No Status: Acute Plan to address problem: Resume routine home medications and monitor vital signs closely. (7) Chronic Tropenimia secondary to ESRD Current Visit: No Status: Acute Plan to address problem: Patient placed on subcutaneous heparin. Disposition: DC-01 TO HOME OR SELFCARE Time spent for discharge: 35 minutes Core Measure Documentation - Palliative Care Palliative Care/ Comfort Measures: Not Applicable - Core Measures Any of the following diagnoses?: none Exam - Physical Exam Narrative exam: General appearance: Present: no acute distress, well-nourished - EENT Eyes: Present: PERRL, EOM intact. Absent: scleral icterus ENT: hearing intact, clear oral mucosa, dentition normal - Neck Neck: Present: supple, normal ROM - Respiratory Respiratory effort: normal Respiratory: bilateral: CTA - Cardiovascular Rhythm: regular Heart Sounds: Present: S1 & S2. Absent: gallop, systolic murmur, diastolic murmur, rub, click - Extremities Extremities: no ischemia, pulses intact, pulses symmetrical, No edema, normal temperature, normal color, Full ROM Peripheral Pulses: within normal limits - Abdominal General gastrointestinal: Present: soft, non-tender, non-distended, normal bowel sounds. Absent: mass - Integumentary Integumentary: Present: clear, warm, dry. Absent: rash - Musculoskeletal Musculoskeletal: strength equal bilaterally - Psychiatric Psychiatric: appropriate mood/affect, intact judgment & insight, memory intact, cooperative - Neurologic Neurologic: CNII-XII intact, no focal deficits, moves all extremities - Additional findings Additional findings: Open Wound -3x3cm in diameter over dorsal aspect of Left Wrist. Non-tender, no obvious Discharge. - Constitutional Vitals: Temp Pulse Resp BP Pulse Ox 98.8 F 96 H 18 170/94 94 12/19/20 08:07 12/19/20 08:07 12/19/20 08:07 12/19/20 08:33 12/19/20 08:07 Plan Activity: advance as tolerated, fall precautions Diet: renal Special Instructions: record daily weights, record daily BP diary, record blood sugar diary Follow up with: PRIMARY CARE, [Primary Care Provider] - 7 Days VIKRAM LAIRD DO [Staff Physician] - 7 Days [facility] [Provider Group] - 7 Days Prescriptions: Dicyclomine [Bentyl] 20 mg PO QID 30 Days #100 ml labetaloL [Labetalol 200mg TAB] 200 mg PO TID #90 tablet Promethazine [Phenergan] 25 mg PO Q6H PRN #30 tablet PRN Reason: Nausea And Vomiting Metoclopramide [Reglan TAB] 5 mg PO ACHS #30 tablet
--- NOTE | 2020-12-19 11:25 | Progress Note ---
Assessment and Plan - Patient Problems (1) Elevated troponin Current Visit: Yes Status: Acute Plan to address problem: Nonspecific troponin elevation in this patient with end-stage renal disease, who missed 2 dialysis sessions on presentation. His symptoms on presentation with nausea vomiting and abdominal pain, no cardiac complaints. Dialysis has been resumed and symptoms improved. Further cardiac work-up will be deferred to his primary attending manager strategic partnerships, [facility]. (2) Severe uncontrolled hypertension Current Visit: Yes Status: Acute Plan to address problem: Patient is currently on nifedipine, labetalol and lisinopril, I will switch lisinopril to valsartan 160 mg daily to optimize antihypertensive regimen. Subjective Date of service: 12/19/20 Interval history: No further cardiac complaints, patient's dialysis has been resumed after 2 missed sessions before his presentation. Echocardiogram shows severe concentric left ventricular hypertrophy, mild four-chamber dilated cardiomyopathy, with left ventricular ejection fraction 35 to 40%. On further review, he is a long-term patient of [facility], we will defer to their service for further management of his cardiac status. Objective Vital Signs Temp Pulse Resp BP Pulse Ox 12/19/20 08:33 170/94 12/19/20 08:07 98.8 F 96 H 18 170/94 94 12/19/20 04:22 99.2 F 18 120/65 12/19/20 02:00 88 12/18/20 22:00 18 12/18/20 21:46 95 H 149/89 12/18/20 20:45 95 H 149/89 12/18/20 20:19 100.0 F H 95 H 18 149/89 87 12/18/20 16:40 98.8 F 90 18 136/71 87 12/18/20 11:37 98.8 F 101 H 19 219/126 91 - Physical Examination General: No Apparent Distress HEENT: Positive: PERRL Neck: Positive: neck supple Cardiac: Positive: Reg Rate and Rhythm Lungs: Positive: Decreased Breath Sounds Neuro: Positive: Grossly Intact Abdomen: Positive: Soft Skin: Positive: Clear Extremities: Absent: edema - Labs and Meds CBC 12/19/20 Range/Units 05:12 WBC 12.9 H (4.5-11.0) K/mm3 RBC 2.81 L (3.65-5.03) M/mm3 Hgb 7.8 L (11.8-15.2) gm/dl Hct 23.6 L (35.5-45.6) % Plt Count 287 (140-440) K/mm3 Comprehensive Metabolic Panel 12/19/20 Range/Units 05:12 Sodium 139 (137-145) mmol/L Potassium 4.2 (3.6-5.0) mmol/L Chloride 96.6 L (98-107) mmol/L Carbon Dioxide 29 D (22-30) mmol/L BUN 65 H (9-20) mg/dL Creatinine 11.9 H (0.8-1.3) mg/dL Glucose 130 H (75-100) mg/dL Calcium 7.2 L (8.4-10.2) mg/dL - Allied health notes Allied health notes reviewed: nursing
[2020-12-19] MEDS ORDERED: VALSARTAN 40 MG TAB PO SCH (12:00)
[2020-12-19] MEDS ORDERED: SODIUM CHLORIDE 0.9% 100 ML IV PRN (12:43)
[2020-12-19] MEDS ORDERED: PHENOL 1.4% 177 ML BOTTLE MM PRN (15:36)
[2020-12-19 16:21] VITALS: BP 170/96
== END 2020-12-19 18:46 | disposition home or self-care (01) | DRG 640 ==
LOC: ED 19:17 → OBSVTOIN 22:24 → 4A 22:24
PROVIDERS: ADMIT Internal Medicine Geriatric Medicine; ATTEND Internal Medicine
PROC: 5A1D70Z Performance of Urinary Filtration, Intermittent, Less than 6 Hours Per Day (ICD-10-PCS; principal; 2020-12-17)
DX: E87.5 Hyperkalemia (principal); N18.6 End stage renal disease; I12.0 Hypertensive chronic kidney disease with stage 5 chronic kidney disease or end stage renal disease; K31.84 Gastroparesis; K21.9 Gastro-esophageal reflux disease without esophagitis; E11.22 Type 2 diabetes mellitus with diabetic chronic kidney disease; J44.9 Chronic obstructive pulmonary disease, unspecified; R79.89 Other specified abnormal findings of blood chemistry; E11.43 Type 2 diabetes mellitus with diabetic autonomic (poly)neuropathy; I25.10 Atherosclerotic heart disease of native coronary artery without angina pectoris; I16.0 Hypertensive urgency; Z91.19 Patient's noncompliance with other medical treatment and regimen; I25.2 Old myocardial infarction; Z90.49 Acquired absence of other specified parts of digestive tract; R11.2 Nausea with vomiting, unspecified
CPT/HCPCS: 36415; 80048; 80053; 80061; 82550; 82553; 82962; 84484; 85025; 85027; 85610; 93005; 93306; 96374; 96375; G0378; J0360; J1170; J1644; J1815; J2270; J2405; Q0169

== ENCOUNTER 2021-05-31 13:45 | Inpatient (IN) | payer MEDICARE ==
--- NOTE | 2021-05-31 14:37 | Event Note ---
ED Screening Note Date of service: 05/31/21 Time: 14:35 ED Screening Note: 35-year-old male patient with history of end-stage renal disease and diabetes presents to emergency department with complaints of generalized weakness, bilateral lower extremity swelling, and shortness of breath. States he has not undergone dialysis in approximately 6 weeks due to transportation issues. States he recently underwent valve replacement. Unsure if he is anticoagulated. General: Awake, appropriately interactive, no acute distress. Neck: Supple. Full range of motion intact. Cardiovascular: Normal peripheral perfusion. Pulmonary: No respiratory distress. Patient is speaking normally without use of accessory muscles. Skin: No apparent rashes or lesions. Neurological: No facial asymmetry. Speech is clear. Follows commands. Patient is alert and oriented. Musculoskeletal: Moves all four extremities spontaneously with normal range of motion. Psych: Cooperative. Appropriate mood and affect. I have greeted and performed a focused rapid initial assessment of this patient. A comprehensive ED assessment and evaluation of the patient, analysis of all test results, and completion of the medical decision-making process will be conducted by additional ED providers. This initial assessment/diagnostic orders/clinical plan/treatment(s) is/are subject to change based on patients health status, clinical progression and re-assessment. Further treatment and workup at subsequent clinical provider's discretion. Patient/guardian urged not to elope from the ED as their condition may be serious if not clinically assessed and managed.
--- NOTE | 2021-05-31 16:55 | XRay Report ---
CHEST 1 VIEW 05/31/2021 3:48 PM INDICATION / CLINICAL INFORMATION: Shortness of breath. COMPARISON: 02/02/2021 FINDINGS: SUPPORT DEVICES: None. HEART / MEDIASTINUM: Stable moderate cardiomegaly. LUNGS / PLEURA: Bilateral pulmonary edema with likely small effusions. No pneumothorax. ADDITIONAL FINDINGS: No significant additional findings. IMPRESSION: 1. Findings likely indicating CHF as above. Signer Name: Alex Hernandez MD Signed: 05/31/2021 4:51 PM Workstation Name: [id number]
[2021-05-31 17:20] LABS: Hematocrit 25.3 % (35.5-45.6); Hemoglobin 7.7 gm/dl (11.8-15.2); Mean Corpuscular HGB Conc 30 % (32-34); Mean Corpuscular Volume 87 fl (84-94); Platelet Count 171 K/mm3 (140-440); Red Cell Distribution Width 18.6 % (13.2-15.2)
[2021-05-31 17:22] LABS: INR 1.58 (0.87-1.13)
[2021-05-31 17:23] LABS: Partial Thromboplastin Time 46.8 Sec. (24.2-36.6)
--- NOTE | 2021-05-31 17:25 | Emergency Department Report ---
ED General Adult HPI - General Chief complaint: Weakness Stated complaint: MISSED 2 WEEKS OF DIALYSIS PUI?: No Time Seen by Provider: 05/31/21 16:57 Source: patient, EMS ( EMS documentation not available at time of chart dictation ), RN notes reviewed, old records reviewed Mode of arrival: Stretcher Limitations: Physical Limitation - History of Present Illness Initial comments: Patient is a 35-year-old gentleman. Past medical history includes end-stage renal disease on hemodialysis, diabetes, GERD, asthma, hypertension. Also has history of MRSA bacteremia, infective endocarditis, transferred to [facility], February 2021, for the aforementioned. He had blood cultures that grew out MRSA. Also previously seen by infectious disease in February, who recommended cefepime and vancomycin. Patient presents to the ER today with a complaint of shortness of breath, abdominal swelling, leg swelling, malaise and fatigue. He tells me he has not received dialysis for a few weeks secondary to transportation issues. He feels short of breath. He denies loss of taste and smell. He denies headache, neck pain, chest pain. Positive abdominal distention. Positive bilateral lower extremity swelling. No urinary symptoms. No exposure to Covid. Patient not sure if he is receiving antibiotics. Patient not sure if he requires antibiotics. Patient not sure if he require systemic anticoagulation. Patient denies history of trauma. -: Gradual Consistency: constant Improves with: rest Worsens with: movement - Related Data Previous Rx's Medication Instructions Recorded Last Taken Type Lispro Insulin [HumaLOG] 5 unit SQ AC #1 vial 04/17/20 09/05/20 17:00 Rx Albuterol Sulfate [Albuterol 0.63% 0.63 mg IH BID PRN #60 vial 11/03/20 Unknown Rx NEBS] Metoclopramide [Reglan TAB] 5 mg PO ACHS #30 tablet 12/19/20 Unknown Rx Epoetin Wale-Epbx 10,000 Unit 10,000 unit SUB-Q BRENDAN vial 01/12/21 Unknown Rx [Retacrit] labetaloL [Labetalol 100mg TAB] 100 mg PO TID #90 tablet 01/12/21 Unknown Rx Acetaminophen [Acetaminophen TAB] 650 mg PO Q4H PRN tablet 02/26/21 Unknown Rx DAPTOmycin 500 mg IV Q48H vial 02/26/21 Unknown Rx Dextrose 50% in Water [D50W (25GM) 50 ml IV Q30MIN PRN syringe 02/26/21 Unknown Rx Syringe] Epoetin Wale-Epbx 10,000 Unit 10,000 unit SUB-Q BRENDAN vial 02/26/21 Unknown Rx [Retacrit] Insulin Glargine [Lantus VIAL] 12 units SUB-Q QHS units 02/26/21 Unknown Rx Lispro Insulin [HumaLOG] 0 unit SUB-Q ACHS units 02/26/21 Unknown Rx NIFEdipine XL [Procardia Xl] 60 mg PO Q12HR tablet 02/26/21 Unknown Rx Pantoprazole [Protonix TAB] 40 mg PO BID tablet 02/26/21 Unknown Rx guaiFENesin ER [Mucinex ER] 600 mg PO BID PRN tablet 02/26/21 Unknown Rx hydrALAZINE [Apresoline INJ] 10 mg IV Q4HR PRN vial 02/26/21 Unknown Rx hydrALAZINE [Apresoline TAB] 50 mg PO Q8HR tablet 02/26/21 Unknown Rx lisinopriL [Zestril TAB] 20 mg PO QHS tablet 02/26/21 Unknown Rx Allergies Allergy/AdvReac Type Severity Reaction Status Date / Time No Known Allergies Allergy Verified 07/20/20 15:05 ED Review of Systems ROS: Stated complaint: MISSED 2 WEEKS OF DIALYSIS Other details as noted in HPI Constitutional: malaise, weakness Eyes: denies: eye discharge ENT: denies: epistaxis Respiratory: shortness of breath Cardiovascular: dyspnea on exertion, edema Gastrointestinal: denies: vomiting, hematemesis, melena, hematochezia Neurological: weakness Hematological/Lymphatic: denies: easy bleeding ED Past Medical Hx - Past Medical History Previous Medical History?: Yes Hx Hypertension: Yes Hx Heart Attack/AMI: Yes (NSTEMI) Hx Congestive Heart Failure: Yes Hx Diabetes: Yes (TYPE 2) Hx Deep Vein Thrombosis: No Hx Pulmonary Embolism: No Hx GERD: Yes Hx Liver Disease: No Hx Renal Disease: Yes Hx Sickle Cell Disease: No Hx Arthritis: Yes (BINTA HANDS) Hx Headaches / Migraines: No Hx Seizures: No Hx Kidney Stones: No Hx Asthma: Yes Hx COPD: Yes Hx Tuberculosis: No Hx HIV: No Additional medical history: Ulcerative esophagitis, Gastroparesis HD MWF - Surgical History Past Surgical History?: Yes Hx Coronary Stent: No Hx Pacemaker: No Hx Internal Defibrillator: No Hx Cholecystectomy: Yes Hx Appendectomy: Yes Additional Surgical History: right great toe removed, Right chest PERMA-CATH - Social History Smoking Status: Unknown if ever smoked - Medications Home Medications: Home Medications Medication Instructions Recorded Confirmed Last Taken Type Lispro Insulin [HumaLOG] 5 unit SQ AC #1 vial 04/17/20 01/01/21 09/05/20 17:00 Rx Albuterol Sulfate [Albuterol 0.63% 0.63 mg IH BID PRN #60 vial 11/03/20 01/01/21 Unknown Rx NEBS] Metoclopramide [Reglan TAB] 5 mg PO ACHS #30 tablet 12/19/20 01/01/21 Unknown Rx Epoetin Wale-Epbx 10,000 Unit 10,000 unit SUB-Q BRENDAN vial 01/12/21 Unknown Rx [Retacrit] labetaloL [Labetalol 100mg TAB] 100 mg PO TID #90 tablet 01/12/21 Unknown Rx Acetaminophen [Acetaminophen TAB] 650 mg PO Q4H PRN tablet 02/26/21 Unknown Rx DAPTOmycin 500 mg IV Q48H vial 02/26/21 Unknown Rx Dextrose 50% in Water [D50W (25GM) 50 ml IV Q30MIN PRN syringe 02/26/21 Unknown Rx Syringe] Epoetin Wale-Epbx 10,000 Unit 10,000 unit SUB-Q BRENDAN vial 02/26/21 Unknown Rx [Retacrit] Insulin Glargine [Lantus VIAL] 12 units SUB-Q QHS units 02/26/21 Unknown Rx Lispro Insulin [HumaLOG] 0 unit SUB-Q ACHS units 02/26/21 Unknown Rx NIFEdipine XL [Procardia Xl] 60 mg PO Q12HR tablet 02/26/21 Unknown Rx Pantoprazole [Protonix TAB] 40 mg PO BID tablet 02/26/21 Unknown Rx guaiFENesin ER [Mucinex ER] 600 mg PO BID PRN tablet 02/26/21 Unknown Rx hydrALAZINE [Apresoline INJ] 10 mg IV Q4HR PRN vial 02/26/21 Unknown Rx hydrALAZINE [Apresoline TAB] 50 mg PO Q8HR tablet 02/26/21 Unknown Rx lisinopriL [Zestril TAB] 20 mg PO QHS tablet 02/26/21 Unknown Rx ED Physical Exam - General Limitations: Physical Limitation General appearance: anxious, in distress, obese - Head Head exam: Present: atraumatic, normocephalic - Eye Eye exam: Present: normal appearance, EOMI. Absent: nystagmus - ENT ENT exam: Present: normal exam, mucous membranes moist, normal external ear exam - Neck Neck exam: Present: normal inspection, full ROM. Absent: tenderness, meningismus - Respiratory Respiratory exam: Present: respiratory distress, rales, accessory muscle use - Cardiovascular Cardiovascular Exam: Present: regular rate, normal rhythm, systolic murmur, JVD (5 to 6 cm of JVD bilaterally). Absent: bradycardia, tachycardia, irregular rhythm, diastolic murmur, rubs, gallop - GI/Abdominal GI/Abdominal exam: Present: soft, distended. Absent: tenderness, guarding, rebound, rigid, pulsatile mass - Rectal Rectal exam: Present: deferred - Extremities Exam Extremities exam: Present: normal inspection (Right upper extremity fistula, without redness, pus or streaking.), pedal edema (3+ edema noted in the bilateral lower extremities), other (2+ pulses noted in the bilateral upper and lower extremities. There is no palpable cord. negative Homans sign. Muscular compartments are soft. The pelvis is stable.). Absent: calf tenderness - Back Exam Back exam: Present: normal inspection. Absent: tenderness, CVA tenderness (R), CVA tenderness (L), paraspinal tenderness, vertebral tenderness - Neurological Exam Neurological exam: Present: alert, other (No facial droop. Tongue midline. Extraocular movements intact bilaterally. Facial sensation intact to light touch in V1, V2, V3 distribution bilaterally. 5 and a 5 strength in 4 extremities. Sensation intact to light touch in 4 extremities.) - Psychiatric Psychiatric exam: Present: anxious - Skin Skin exam: Present: warm, dry, intact, normal color. Absent: rash ED Course Vital Signs 05/31/21 05/31/21 05/31/21 13:46 14:17 14:34 Temperature 94.0 F L 94.0 F L Pulse Rate 68 72 67 Respiratory 18 20 16 Rate Blood Pressure 143/76 147/72 147/74 [Right] O2 Sat by Pulse 100 100 100 Oximetry - Reevaluation(s) Reevaluation #1: 05/31/21 17:23 Differential diagnosis, including but not limited to: Acute volume overload, azotemia uremia, metabolic acidosis, hyperkalemia, noncompliance, electrolyte derangement, anemia of chronic disease Assessment and plan: 35-year-old gentleman, presenting with obvious clinical fluid overload, not having received hemodialysis in a few weeks, manifest by abdominal distention, JVD, crackles, rales, lower extremity edema. X-ray of the chest demonstrates acute pulmonary vascular congestion. Patient in moderate respiratory distress, require supplemental oxygen, but does not require BiPAP at this time. Laboratory studies, EKG, and temperature pending at this time. Have specifically communicated to patient's nurse, that we would need a temperature, and an EKG. Have advised this patient that he requires admission for emergent hemodialysis. The patient is amenable to this plan of care. Have contacted nephrology on-call, Dr. Moss, and hospital physician, Dr. Dickinson. Have discussed the patient's history, physical, imaging studies, and overall clinical impression. We agreed to admit this patient for emergent hemodialysis. I will follow up on this patient's laboratory studies, and if potassium markedly elevated, which I anticipate, will administer potassium/hyperkalemia cocktail. I will also follow-up with these physicians in real-time, as to the results of the patient's laboratory studies. Anemia is a chronic microcytic anemia, likely secondary to anemia of chronic disease. Have also requested medical records from [facility]. Patient is amenable to admission and hospitalization for the aforementioned. I have discussed my plan of care with the patient. He is amenable to this plan of care. 05/31/21 17:46 Patient found to have metabolic acidosis, hyperkalemia, azotemia, uremia, and probable type II troponin leak. Hyperkalemia cocktail is ordered. He is also found to be hypothermic with a core temperature of 94 degrees. Given leukopenia, thrombocytopenia, hypothermia, known history of MRSA bacteremia, recent culture results, will medicate empirically with vancomycin and cefepime. Active patient rewarming ordered. Blood cultures and lactic acid ordered. Hospital physician and nephrology have been updated. Have asked if antibiotics can be administered during hemodialysis. Awaiting response. Patient demonstrating obvious signs of fluid overload, therefore, 30 cc/kg bolus is contraindicated. Dr. Dickinson advises that antibiotics may be giving during dialysis. Therefore, will convey this to nursing staff. ED Medical Decision Making - Lab Data Result diagrams: 05/31/21 16:47 05/31/21 16:47 Vital Signs 05/31/21 14:17 Pulse Rate 72 Respiratory 20 Rate Blood Pressure 147/72 [Right] O2 Sat by Pulse 100 Oximetry Lab Results 05/31/21 05/31/21 Range/Units 16:47 16:47 WBC 3.9 L (4.5-11.0) K/mm3 RBC 2.90 L (3.65-5.03) M/mm3 Hgb 7.7 L (11.8-15.2) gm/dl Hct 25.3 L (35.5-45.6) % MCV 87 (84-94) fl MCH 27 L (28-32) pg MCHC 30 L (32-34) % RDW 18.6 H (13.2-15.2) % Plt Count 171 (140-440) K/mm3 Whiteside % (Auto) Shopping Inspector Baso % (Auto) Shopping Inspector PT 19.3 H (12.2-14.9) Sec. INR 1.58 H (0.87-1.13) Lab Results 05/31/21 05/31/21 05/31/21 Range/Units 16:47 16:47 16:47 WBC 3.9 L (4.5-11.0) K/mm3 RBC 2.90 L (3.65-5.03) M/mm3 Hgb 7.7 L (11.8-15.2) gm/dl Hct 25.3 L (35.5-45.6) % MCV 87 (84-94) fl MCH 27 L (28-32) pg MCHC 30 L (32-34) % RDW 18.6 H (13.2-15.2) % Plt Count 171 (140-440) K/mm3 Whiteside % (Auto) Shopping Inspector Baso % (Auto) Shopping Inspector PT 19.3 H (12.2-14.9) Sec. INR 1.58 H (0.87-1.13) APTT 46.8 H (24.2-36.6) Sec. Sodium 147 H (137-145) mmol/L Potassium 7.0 H* (3.6-5.0) mmol/L Chloride 108.0 H (98-107) mmol/L Carbon Dioxide 16 L (22-30) mmol/L Anion Gap 30 mmol/L BUN 135 H (9-20) mg/dL Creatinine 17.2 H (0.8-1.3) mg/dL Estimated GFR 4 ml/min BUN/Creatinine Ratio 8 % Glucose 104 H (75-100) mg/dL Calcium 8.6 (8.4-10.2) mg/dL Phosphorus 10.20 H (2.5-4.5) mg/dL Magnesium 2.80 H (1.7-2.3) mg/dL Total Bilirubin 0.60 (0.1-1.2) mg/dL AST 16 (5-40) units/L ALT 12 (7-56) units/L Alkaline Phosphatase 416 H (35-129) units/L Troponin T 0.995 H* (0.00-0.029) ng/mL Total Protein 8.2 (6.3-8.2) g/dL Albumin 3.4 L (3.9-5) g/dL Albumin/Globulin Ratio 0.7 % Vital Signs 05/31/21 05/31/21 05/31/21 13:46 14:17 14:34 Temperature 94.0 F L 94.0 F L Pulse Rate 68 72 67 Respiratory 18 20 16 Rate Blood Pressure 143/76 147/72 147/74 [Right] O2 Sat by Pulse 100 100 100 Oximetry - EKG Data -: EKG Interpreted by Wy - EKG Data 05/31/21 17:33 EKG today is interpreted at 17: 26 This is a sinus rhythm, with a normal P wave axis. Rate is 68 bpm. There is a left axis deviation, with a left anterior fascicular block. There is low voltage. There is motion artifact. This is an abnormal EKG. This is not a STEMI. - Radiology Data Radiology results: report reviewed, image reviewed CHEST 1 VIEW 05/31/2021 3:48 PM INDICATION / CLINICAL INFORMATION: Shortness of breath. COMPARISON: 02/02/2021 FINDINGS: SUPPORT DEVICES: None. HEART / MEDIASTINUM: Stable moderate cardiomegaly. LUNGS / PLEURA: Bilateral pulmonary edema with likely small effusions. No pneumothorax. ADDITIONAL FINDINGS: No significant additional findings. IMPRESSION: 1. Findings likely indicating CHF as above. Signer Name: Alex Hernandez MD Signed: 05/31/2021 3:51 PM Workstation Name: [email or web address] Critical Care Time: Yes Critical care time in (mins) excluding proc time.: 45 Critical care attestation.: If time is entered above; I have spent that time in minutes in the direct care of this critically ill patient, excluding procedure time. ED Disposition Clinical Impression: Medical non-compliance, Anemia in ESRD (end-stage renal disease), End-stage renal disease needing dialysis, Volume overload, Hyperkalemia, Azotemia, Uremia, Metabolic acidosis, Hypothermia Disposition: [id number] OP ADMIT IP TO THIS HOSP Is pt being admited?: Yes Condition: Serious
[2021-05-31 17:27] LABS: Alanine Aminotransferase 12 units/L (7-56); Albumin 3.4 g/dL (3.9-5); Calcium 8.6 mg/dL (8.4-10.2); Hemolysis Index 5
[2021-05-31 17:37] LABS: BUN/Creatinine Ratio 8; Blood Urea Nitrogen 135 mg/dL (9-20)
[2021-05-31] MEDS ORDERED: ALBUTEROL 2.5 MG/3 ML NEBU IH ONE (17:43)
[2021-05-31] MEDS ORDERED: SODIUM POLYSTYRENE 15 GM/60 ML ORAL LIQD PO ONE (17:43)
[2021-05-31] MEDS ORDERED: INSULIN REGULAR, HUMAN 100 UNITS/1 ML IV ONE (17:43)
[2021-05-31] MEDS ORDERED: VANCOMYCIN/NS 1 GM/250 ML 1 GM/250 ML BAG IV ONE (17:45)
[2021-05-31] MEDS ORDERED: HEPARIN 10,000 UNITS/10 ML VIAL IV PRN (17:45)
[2021-05-31] MEDS ORDERED: SODIUM CHLORIDE 0.9% 100 ML IV PRN (17:45)
[2021-05-31] MEDS ORDERED: CEFEPIME/NS 1 GM/100 ML 1 GM/100 ML BAG IV ONE (17:45)
[2021-05-31 17:56] LABS: Chol/HDL Ratio 2.34 %; HDL Cholesterol 35 mg/dL (40-59); LDL Cholesterol,Direct 28 mg/dL (50-130)
[2021-05-31 18:03] LABS: Total Cells Counted 100
[2021-05-31 18:04] LABS: Anisocytosis 1+; Hypochromasia 1+; Platelet Estimate Consistent w Auto
--- NOTE | 2021-05-31 18:29 | History and Physical Report ---
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 Was receiving vancomycin and cefepime at hemodialysis at some point. Patient has missed dialysis for 3 weeks and presents with generalized malaise associated with increased abdominal girth and lower extremity edema. Patient at present poor historian secondary to somnolence consistent with metabolic encephalopathy. Will wake up and he is alert but will go back to sleep and mumble. Patient stated fluid built up over the last several days of not receiving hemodialysis. Gives no reason for not going. After review of patient's past visits to the hospital he has been here 6 times this year alone and is notorious for noncompliance. Past History Past Medical History: anemia, diabetes, dialysis, ESRD, GERD, heart failure, hypertension, hyperlipidemia, renal failure. denies: acute [place], atrial fib, arrhythmia, arthritis, CAD, cancer, COPD, DVT, hepatitis, HIV/AIDS, hyperthyroidism, hypothyroidism, liver disease, migraines, PVD, pulmonary embolism, seizures, stroke, sarcoidosis Past Surgical History: Other (Patient gives a history of heart surgery but cannot tell me why. Also surgery in his graft for hemodialysis). denies: arthroscopy, valve replacement, total hip replacement Social history: single, lives with family, full code. denies: smoking, alcohol abuse Family history: diabetes, hypertension Medications and Allergies Allergies Allergy/AdvReac Type Severity Reaction Status Date / Time No Known Allergies Allergy Verified 07/20/20 15:05 Home Medications Medication Instructions Recorded Confirmed Last Taken Type Lispro Insulin [HumaLOG] 5 unit SQ AC #1 vial 04/17/20 01/01/21 09/05/20 17:00 Rx Albuterol Sulfate [Albuterol 0.63% 0.63 mg IH BID PRN #60 vial 11/03/20 01/01/21 Unknown Rx NEBS] Metoclopramide [Reglan TAB] 5 mg PO ACHS #30 tablet 12/19/20 01/01/21 Unknown Rx Epoetin Wale-Epbx 10,000 Unit 10,000 unit SUB-Q BRENDAN vial 01/12/21 Unknown Rx [Retacrit] labetaloL [Labetalol 100mg TAB] 100 mg PO TID #90 tablet 01/12/21 Unknown Rx Acetaminophen [Acetaminophen TAB] 650 mg PO Q4H PRN tablet 02/26/21 Unknown Rx DAPTOmycin 500 mg IV Q48H vial 02/26/21 Unknown Rx Dextrose 50% in Water [D50W (25GM) 50 ml IV Q30MIN PRN syringe 02/26/21 Unknown Rx Syringe] Epoetin Wale-Epbx 10,000 Unit 10,000 unit SUB-Q BRENDAN vial 02/26/21 Unknown Rx [Retacrit] Insulin Glargine [Lantus VIAL] 12 units SUB-Q QHS units 02/26/21 Unknown Rx Lispro Insulin [HumaLOG] 0 unit SUB-Q ACHS units 02/26/21 Unknown Rx NIFEdipine XL [Procardia Xl] 60 mg PO Q12HR tablet 02/26/21 Unknown Rx Pantoprazole [Protonix TAB] 40 mg PO BID tablet 02/26/21 Unknown Rx guaiFENesin ER [Mucinex ER] 600 mg PO BID PRN tablet 02/26/21 Unknown Rx hydrALAZINE [Apresoline INJ] 10 mg IV Q4HR PRN vial 02/26/21 Unknown Rx hydrALAZINE [Apresoline TAB] 50 mg PO Q8HR tablet 02/26/21 Unknown Rx lisinopriL [Zestril TAB] 20 mg PO QHS tablet 02/26/21 Unknown Rx Active Meds: Active Medications Dextrose (Dextrose 50% In Water (25gm) 50 Ml Vial) 50 gm IV ONCE ONE; Protocol Stop: 05/31/21 18:44 Heparin Sodium (Porcine) (Heparin 10,000 Units/10 Ml Vial) 3,000 unit IV BRENDAN PRN PRN Reason: hemodialysis Calcium Gluconate 1,000 mg/ (Sodium Chloride) 110 mls @ 660 mls/hr IV ONCE ONE Stop: 05/31/21 18:52 Vancomycin HCl (Vancomycin/Ns 1 Gm/250 Ml) 1 gm in 250 mls @ 167.007 mls/hr IV ONCE ONE; Protocol Stop: 05/31/21 19:14 Sodium Chloride (Nacl 0.9%) 100 mls @ 999 mls/hr IV BRENDAN PRN PRN Reason: Hypotension Review of Systems Constitutional: weight gain, fatigue, weakness, malaise, lethargy, no weight loss, no fever, no chills, no sweats, no night sweats, no anorexia, no chronic headaches, no poor appetite, no daytime sleepiness, no chronic pain Ears, nose, mouth and throat: no ear discharge, no decreased hearing, no nasal congestion, no dental pain, no dysphagia, no vertigo, no pain front of neck Cardiovascular: shortness of breath, dyspnea on exertion, high blood pressure, leg edema, decreased exercise tolerance, no chest pain, no orthopnea, no palpitations, no rapid/irregular heart beat, no edema, no syncope, no lightheadedness, no paroxysmal nocturnal dyspnea, no claudication, no phlebitis Respiratory: shortness of breath, no cough with sputum, no hemoptysis, no wheezing, no pleurisy, no pain on inspiration, no sleep apnea, no respiratory infections Gastrointestinal: nausea, no abdominal pain, no vomiting, no diarrhea, no constipation, no change in bowel habits, no hematemesis, no BRBPR, no melena, no loss of appetite, no early satiety, no heartburn, no indigestion Genitourinary Male: no dysuria, no flank pain, no discharge, no urinary hesitancy, no incontinence, no testicular lump Musculoskeletal: low back pain, muscle weakness, muscle cramps, no neck stiffness, no neck pain, no shooting arm pain, no shooting leg pain, no leg numbness/tingling, no redness of joints, no hot joints, no myalgias, no atrophy, no limitation of motion, no gait dysfunction, no frequent falls, no loss of height Neurological: change in mentation, no head injury, no transient paralysis, no paralysis, no weakness, no parathesias, no numbness, no tingling, no seizures, no syncope, no tremors, no ataxia, no lack of coordination, no vertigo, no headaches, no convulsions, no loss of vision, no hearing difficulties Psychiatric: confusion, no sleep disturbances, no hypersomnia, no change in libi do, no depression, no difficulties concentrating Endocrine: no cold intolerance, no polydipsia, no nocturia, no excessive sweating, no increase in ring/shoe/hat size, no thyroid mass, no low blood sugars Allergic/Immunologic: no urticaria, no wheezing, no persistent infections Exam - Constitutional Vitals: Temp Pulse Resp BP Pulse Ox 94.0 F L 67 16 147/74 100 05/31/21 14:34 05/31/21 14:34 05/31/21 14:34 05/31/21 14:34 05/31/21 14:34 General appearance: Present: mild distress, other (Encephalopathic) - EENT ENT: hearing intact, clear oral mucosa, dentition normal, other ([place] sclera oral mucosa moist) - Respiratory Respiratory effort: normal Respiratory: bilateral: diminished, rhonchi - Cardiovascular Heart Sounds: Present: S1 & S2. Absent: rub, click - Extremities Extremities: no ischemia, pulses intact Extremity abnormal: edema, other (+2 pitting edema) Peripheral Pulses: within normal limits - Abdominal General gastrointestinal: Present: soft, non-tender, non-distended, normal bowel sounds, other (Ascites) Male genitourinary: Present: scrotal edema - Rectal Rectal Exam: deferred - Integumentary Integumentary: Present: clear, warm, dry - Musculoskeletal Musculoskeletal: generalized weakness - Psychiatric Psychiatric: other (flat mood encephalopathic) - Neurologic Neurologic: CNII-XII intact, no focal deficits, moves all extremities HEART Score - HEART Score Troponin: Troponin T 0.995 ng/mL (0.00-0.029) H* 05/31/21 16:47 Results - Labs CBC & Chem 7: 05/31/21 16:47 05/31/21 16:47 Labs: Laboratory Last Values WBC 3.9 K/mm3 (4.5-11.0) L 05/31/21 16:47 RBC 2.90 M/mm3 (3.65-5.03) L 05/31/21 16:47 Hgb 7.7 gm/dl (11.8-15.2) L 05/31/21 16:47 Hct 25.3 % (35.5-45.6) L 05/31/21 16:47 MCV 87 fl (84-94) 05/31/21 16:47 MCH 27 pg (28-32) L 05/31/21 16:47 MCHC 30 % (32-34) L 05/31/21 16:47 RDW 18.6 % (13.2-15.2) H 05/31/21 16:47 Plt Count 171 K/mm3 (140-440) 05/31/21 16:47 Trigg % (Auto) Pet Ambassador 05/31/21 16:47 Baso % (Auto) Pet Ambassador 05/31/21 16:47 Add Manual Diff Complete 05/31/21 16:47 Total Counted 100 05/31/21 16:47 Seg Neuts % (Manual) 54.0 % (40.0-70.0) 05/31/21 16:47 Lymphocytes % (Manual) 31.0 % (13.4-35.0) 05/31/21 16:47 Monocytes % (Manual) 11.0 % (0.0-7.3) H 05/31/21 16:47 Eosinophils % (Manual) 1.0 % (0.0-4.3) 05/31/21 16:47 Basophils % (Manual) 3.0 % (0.0-1.8) H 05/31/21 16:47 Nucleated RBC % Not Reportable 05/31/21 16:47 Seg Neutrophils # Man 2.1 K/mm3 (1.8-7.7) 05/31/21 16:47 Band Neutrophils # 0.0 K/mm3 05/31/21 16:47 Lymphocytes # (Manual) 1.2 K/mm3 (1.2-5.4) 05/31/21 16:47 Abs React Lymphs (Man) 0.0 K/mm3 05/31/21 16:47 Monocytes # (Manual) 0.4 K/mm3 (0.0-0.8) 05/31/21 16:47 Eosinophils # (Manual) 0.0 K/mm3 (0.0-0.4) 05/31/21 16:47 Basophils # (Manual) 0.1 K/mm3 (0.0-0.1) 05/31/21 16:47 Metamyelocytes # 0.0 K/mm3 05/31/21 16:47 Myelocytes # 0.0 K/mm3 05/31/21 16:47 Promyelocytes # 0.0 K/mm3 05/31/21 16:47 Blast Cells # 0.0 K/mm3 05/31/21 16:47 WBC Morphology Not Reportable 05/31/21 16:47 Hypersegmented Neuts Not Reportable 05/31/21 16:47 Hyposegmented Neuts Not Reportable 05/31/21 16:47 Hypogranular Neuts Not Reportable 05/31/21 16:47 Smudge Cells Not Reportable 05/31/21 16:47 Toxic Granulation Not Reportable 05/31/21 16:47 Toxic Vacuolation Not Reportable 05/31/21 16:47 Dohle Bodies Not Reportable 05/31/21 16:47 Pelger-Huet Anomaly Not Reportable 05/31/21 16:47 Julio Cesar Rods Not Reportable 05/31/21 16:47 Platelet Estimate Consistent w auto 05/31/21 16:47 Clumped Platelets Not Reportable 05/31/21 16:47 Plt Clumps, EDTA Not Reportable 05/31/21 16:47 Large Platelets Not Reportable 05/31/21 16:47 Giant Platelets Not Reportable 05/31/21 16:47 Platelet Satelliting Not Reportable 05/31/21 16:47 Plt Morphology Comment Not Reportable 05/31/21 16:47 RBC Morphology Not Reportable 05/31/21 16:47 Dimorphic RBCs Not Reportable 05/31/21 16:47 Polychromasia Not Reportable 05/31/21 16:47 Hypochromasia 1+ 05/31/21 16:47 Poikilocytosis Not Reportable 05/31/21 16:47 Anisocytosis 1+ 05/31/21 16:47 Microcytosis Not Reportable 05/31/21 16:47 Macrocytosis Not Reportable 05/31/21 16:47 Spherocytes Not Reportable 05/31/21 16:47 Pappenheimer Bodies Not Reportable 05/31/21 16:47 Sickle Cells Not Reportable 05/31/21 16:47 Target Cells Not Reportable 05/31/21 16:47 Tear Drop Cells Not Reportable 05/31/21 16:47 Ovalocytes Not Reportable 05/31/21 16:47 Helmet Cells Not Reportable 05/31/21 16:47 [place] Bodies Not Reportable 05/31/21 16:47 [place] Rings Not Reportable 05/31/21 16:47 [place] Cells Not Reportable 05/31/21 16:47 Bite Cells Not Reportable 05/31/21 16:47 Crenated Cell Not Reportable 05/31/21 16:47 Elliptocytes Not Reportable 05/31/21 16:47 Acanthocytes (Spur) Not Reportable 05/31/21 16:47 Rouleaux Not Reportable 05/31/21 16:47 Hemoglobin C Crystals Not Reportable 05/31/21 16:47 Schistocytes Not Reportable 05/31/21 16:47 Malaria parasites Not Reportable 05/31/21 16:47 David Bodies Not Reportable 05/31/21 16:47 Hem Pathologist Commnt No 05/31/21 16:47 PT 19.3 Sec. (12.2-14.9) H 05/31/21 16:47 INR 1.58 (0.87-1.13) H 05/31/21 16:47 APTT 46.8 Sec. (24.2-36.6) H 05/31/21 16:47 Sodium 147 mmol/L (137-145) H 05/31/21 16:47 Potassium 7.0 mmol/L (3.6-5.0) H* 05/31/21 16:47 Chloride 108.0 mmol/L (98-107) H 05/31/21 16:47 Carbon Dioxide 16 mmol/L (22-30) L 05/31/21 16:47 Anion Gap 30 mmol/L 05/31/21 16:47 BUN 135 mg/dL (9-20) H 05/31/21 16:47 Creatinine 17.2 mg/dL (0.8-1.3) H 05/31/21 16:47 Estimated GFR 4 ml/min 05/31/21 16:47 BUN/Creatinine Ratio 8 % 05/31/21 16:47 Glucose 104 mg/dL (75-100) H 05/31/21 16:47 Calcium 8.6 mg/dL (8.4-10.2) 05/31/21 16:47 Phosphorus 10.20 mg/dL (2.5-4.5) H 05/31/21 16:47 Magnesium 2.80 mg/dL (1.7-2.3) H 05/31/21 16:47 Total Bilirubin 0.60 mg/dL (0.1-1.2) 05/31/21 16:47 AST 16 units/L (5-40) 05/31/21 16:47 ALT 12 units/L (7-56) 05/31/21 16:47 Alkaline Phosphatase 416 units/L (35-129) H 05/31/21 16:47 Troponin T 0.995 ng/mL (0.00-0.029) H* 05/31/21 16:47 NT-Pro-B Natriuret Pep > 79633 pg/mL (0-450) H 05/31/21 16:47 Total Protein 8.2 g/dL (6.3-8.2) 05/31/21 16:47 Albumin 3.4 g/dL (3.9-5) L 05/31/21 16:47 Albumin/Globulin Ratio 0.7 % 05/31/21 16:47 Triglycerides 102 mg/dL (2-149) 05/31/21 16:47 Cholesterol 82 mg/dL (50-199) 05/31/21 16:47 LDL Cholesterol Direct 28 mg/dL (50-130) L 05/31/21 16:47 HDL Cholesterol 35 mg/dL (40-59) L 05/31/21 16:47 Cholesterol/HDL Ratio 2.34 % 05/31/21 16:47 - Imaging and Cardiology EKG: report reviewed, image reviewed Chest x-ray: report reviewed, image reviewed Assessment and Plan Advance Directives: Yes (Patient did not answer questions directly) VTE prophylaxis?: Chemical Plan of care discussed with patient/family: Yes - Patient Problems (1) Accelerated hypertension Status: Acute Plan to address problem: Patient with accelerated hypertension. Requiring hemodialysis will restart antihypertensives labetalol at this time. Would not be too aggressive with blood pressure because of high suspicion for underlying sepsis and septic shock. Patient hypothermic hypotensive upon admission. (2) Acute hyperkalemia Status: Acute Plan to address problem: Secondary to missed dialysis and acute on chronic end-stage renal disease. Will place patient insulin, glucose, Kayexalate. Hyperkalemia cocktail, serial chemistries (3) Acute on chronic renal insufficiency Status: Acute Plan to address problem: Acute on chronic renal sufficiency secondary to missed dialysis and noncompliance. Nephrology has been contacted for emergent hemodialysis. Follow electrolytes and correct accordingly. Stress compliance. (4) Bacteremia due to Staphylococcus aureus Status: Acute Plan to address problem: Patient clearly has a picture of sepsis as well. Patient is hypothermic, hypotensive and is receiving vancomycin and cefepime at hemodialysis. If patient has missed the last 3 weeks of dialysis patient has not been receiving antibiotics. Last source was ineffective endocarditis which I suspect was suboptimally treated secondary to noncompliance as well. Will obtain follow-up blood cultures and reinitiate vancomycin and cefepime (5) Diabetes mellitus Status: Acute Plan to address problem: Patient is encephalopathic currently not hypoglycemic will cover with sliding scale only for now. Reintroduce previous insulin or hypoglycemic regime when patient more stable and eating better. For now sliding scale only. (6) ESRD (end stage renal disease) on dialysis Status: Acute Plan to address problem: Hemodialysis as per nephrology. Patient will require emergent hemodialysis now. Severe hyperkalemia and encephalopathy with volume overload. (7) Elevated troponin Status: Acute Plan to address problem: Type II non-STEMI. No EKG changes consistent with STEMI. (8) Fluid overload Status: Acute Qualifiers: Hypervolemia type: other Qualified Code(s): E87.79 - Other fluid overload Plan to address problem: Secondary to missed hemodialysis and renal failure. Will need to follow-up for evidence of congestive heart failure and ejection fraction as well. Patient has been here multiple times in the past 2 years. Work-up most likely has been completed. (9) Full code status Status: Acute (10) Gram-negative bacteremia Status: Acute Plan to address problem: Cardiac vegetations. Treat vancomycin and cefepime. (11) Infectious endocarditis Status: Acute (12) Metabolic encephalopathy Status: Acute Plan to address problem: Multifactorial sepsis along with uremia as clear sources for metabolic encephalopathy. Correct underlying etiology. Blood cultures antibiotics and emergent hemodialysis. (13) NSTEMI (non-ST elevated myocardial infarction) Status: Acute (14) Nausea & vomiting Status: Acute Qualifiers: Vomiting type: unspecified Vomiting Intractability: non-intractable Qualified Code(s): R11.2 - Nausea with vomiting, unspecified Plan to address problem: Zofran as needed secondary to uremia. (15) Sepsis Status: Acute Qualifiers: Sepsis type: methicillin resistant Staphylococcus aureus (16) IDDM (insulin dependent diabetes mellitus) Status: Chronic (17) Medical non-compliance Status: Chronic Plan to address problem: Patient is encephalopathic however did stress compliance. Will probably require additional education prior to discharge.
[2021-05-31] MEDS ORDERED: ONDANSETRON 4 MG/2 ML INJ IV PRN (18:43)
[2021-05-31] MEDS ORDERED: DEXTROSE 50% IN WATER (25GM) 50 ML VIAL IV ONE (18:43)
[2021-05-31] MEDS ORDERED: oxyCODONE /ACETAMINOPHEN 5-325MG TAB PO PRN (18:43)
[2021-05-31] MEDS ORDERED: ACETAMINOPHEN 325 MG TAB PO PRN ×2 (18:43→18:47)
[2021-05-31] MEDS ORDERED: CALCIUM GLUCONATE 1,000 MG in SODIUM CHLORIDE 0.9% 100 ML IV ONE (18:43)
[2021-05-31] MEDS ORDERED: DEXTROSE 50% IN WATER (25GM) 50 ML SYRINGE IV PRN (18:43)
[2021-05-31] MEDS ORDERED: MORPHINE 2 MG/1 ML INJ IV PRN (18:43)
[2021-05-31] MEDS ORDERED: NON-FORMULARY EACH (Albuterol Sulfate [Albuterol 0.63% Nebs] 0.63 MG/3 ML Vial.Neb) IH PRN (18:47)
[2021-05-31] MEDS ORDERED: EPOETIN ALFA-EPBX 10,000 UNIT/1 ML VIAL SUB-Q SCH ×2 (19:00)
[2021-05-31] MEDS ORDERED: CEFEPIME/NS 1 GM/100 ML 1 GM/100 ML BAG IV SCH (19:00)
[2021-05-31] MEDS ORDERED: ALBUTEROL 2.5 MG/3 ML NEBU IH PRN (19:19)
[2021-05-31] MEDS ORDERED: DAPTOmycin 500 MG VIAL IV SCH (20:00)
[2021-05-31] MEDS: EPOETIN ALFA-EPBX 20,000 UNIT/1 ML VIAL SUB-Q PRN (20:51)
--- NOTE | 2021-05-31 20:54 | Event Note ---
Date: 05/31/21 Patient with presented twith missed HD, volume overload and hyperkalemia. Need emergent hemodialysis due to above and I did d/w ER physician.
[2021-05-31 21:06] LABS: Hepatitis B Surface Antigen Non-Reactive (Negative); Hepatitis C Virus Antibody Non-Reactive (NonReactive)
[2021-05-31] MEDS: hydrALAZINE 25 MG TAB PO SCH (22:00)
[2021-05-31] MEDS ORDERED: PANTOPRAZOLE 40 MG TAB PO SCH (22:00)
[2021-05-31] MEDS: NIFEdipine XL 60 MG TAB PO SCH (22:00)
[2021-05-31] MEDS: INSULIN REGULAR, HUMAN 100 UNITS/1 ML SUB-Q SCH (22:00)
[2021-05-31] MEDS ORDERED: METOCLOPRAMIDE 10 MG TAB PO SCH (22:00)
[2021-05-31] MEDS: LISINOPRIL 20 MG TAB PO SCH (22:00)
[2021-05-31] MEDS: METOCLOPRAMIDE 10 MG TAB PO SCH (22:00)
[2021-05-31] MEDS: FAMOTIDINE 20 MG/2 ML INJ IV SCH (22:00)
[2021-06-01] MEDS: hydrALAZINE 25 MG TAB PO SCH (06:00)
[2021-06-01] MEDS: INSULIN REGULAR, HUMAN 100 UNITS/1 ML SUB-Q SCH ×4 (07:30→23:26)
[2021-06-01] MEDS: METOCLOPRAMIDE 10 MG TAB PO SCH ×3 (07:30→16:23)
--- NOTE | 2021-06-01 09:17 | Consultation ---
History of Present Illness - Reason for Consult Consult date: 06/01/21 end stage renal disease - History of Present Illness Patient is a 35 YO male with history significant for HTN, DM, ESRD on h emodialysis, h/o MRSA bacteremia, CAD s/p CABG and Anemia who presented to [facility] ED 05/31 with c/o generalized malaise associated with increased abdominal girth and lower extremity edema. He missed hemodialysis for the past 3 weeks and he claims that he was discharged from the outpatient hemodialysis clinic. He was receiving vancomycin and cefepime at hemodialysis at some point. He denies N, V, D, fever, chills, abd pain, cp, dizziness or syncope. Labs significant for K 7, Creat 17, BUN 135, Troponin 0.995 and Hb 7.7. Nephrology was consulted for further evaluation and treatment of ESRD / hyperkalemia. Past History Past Medical History: anemia, diabetes, dialysis, ESRD, GERD, heart failure, hypertension, hyperlipidemia, renal failure Past Surgical History: Other (Patient gives a history of heart surgery but cannot tell me why. Also surgery in his graft for hemodialysis). denies: total knee replacement Social history: single, lives with family, full code. denies: smoking, alcohol abuse Family history: diabetes, hypertension Medications and Allergies Allergies Allergy/AdvReac Type Severity Reaction Status Date / Time No Known Allergies Allergy Verified 07/20/20 15:05 Home Medications Medication Instructions Recorded Confirmed Last Taken Type Lispro Insulin [HumaLOG] 5 unit SQ AC #1 vial 04/17/20 06/01/21 09/05/20 17:00 Rx Albuterol Sulfate [Albuterol 0.63% 0.63 mg IH BID PRN #60 vial 11/03/20 06/01/21 Unknown Rx NEBS] Metoclopramide [Reglan TAB] 5 mg PO ACHS #30 tablet 12/19/20 06/01/21 Unknown Rx Epoetin Wale-Epbx 10,000 Unit 10,000 unit SUB-Q BRENDAN vial 01/12/21 06/01/21 Unknown Rx [Retacrit] labetaloL [Labetalol 100mg TAB] 100 mg PO TID #90 tablet 01/12/21 06/01/21 Unknown Rx Acetaminophen [Acetaminophen TAB] 650 mg PO Q4H PRN tablet 02/26/21 06/01/21 Unknown Rx DAPTOmycin 500 mg IV Q48H vial 02/26/21 06/01/21 Unknown Rx Dextrose 50% in Water [D50W (25GM) 50 ml IV Q30MIN PRN syringe 02/26/21 06/01/21 Unknown Rx Syringe] Epoetin Wale-Epbx 10,000 Unit 10,000 unit SUB-Q BRENDAN vial 02/26/21 06/01/21 Unknown Rx [Retacrit] Insulin Glargine [Lantus VIAL] 12 units SUB-Q QHS units 02/26/21 06/01/21 Unknown Rx Lispro Insulin [HumaLOG] 0 unit SUB-Q ACHS units 02/26/21 06/01/21 Unknown Rx NIFEdipine XL [Procardia Xl] 60 mg PO Q12HR tablet 02/26/21 06/01/21 Unknown Rx Pantoprazole [Protonix TAB] 40 mg PO BID tablet 02/26/21 06/01/21 Unknown Rx guaiFENesin ER [Mucinex ER] 600 mg PO BID PRN tablet 02/26/21 06/01/21 Unknown Rx hydrALAZINE [Apresoline INJ] 10 mg IV Q4HR PRN vial 02/26/21 06/01/21 Unknown Rx hydrALAZINE [Apresoline TAB] 50 mg PO Q8HR tablet 02/26/21 06/01/21 Unknown Rx lisinopriL [Zestril TAB] 20 mg PO QHS tablet 02/26/21 06/01/21 Unknown Rx Active Meds: Active Medications Acetaminophen (Acetaminophen 325 Mg Tab) 650 mg PO Q4H PRN PRN Reason: Pain MILD(1-3)/Fever >100.5/LANZA Albuterol (Albuterol 2.5 Mg/3 Ml Nebu) 2.5 mg IH Q4HRT PRN PRN Reason: Shortness Of Breath Dextrose (Dextrose 50% In Water (25gm) 50 Ml Syringe) 50 ml IV Q30MIN PRN; P rotocol PRN Reason: Hypoglycemia Enoxaparin Sodium (Enoxaparin 30 Mg/0.3 Ml Inj) 30 mg SUB-Q QDAY KESHIA Famotidine (Famotidine 20 Mg/2 Ml Inj) 10 mg IV BID KESHIA Last Admin: 05/31/21 22:00 Dose: Not Given Documented by: Heparin Sodium (Porcine) (Heparin 10,000 Units/10 Ml Vial) 3,000 unit IV BRENDAN PRN PRN Reason: hemodialysis Hydralazine HCl (Hydralazine 25 Mg Tab) 50 mg PO Q8HR [facility] Last Admin: 06/01/21 06:00 Dose: Not Given Documented by: Sodium Chloride (Nacl 0.9%) 100 mls @ 999 mls/hr IV BRENDAN PRN PRN Reason: Hypotension Cefepime HCl (Cefepime/Ns 1 Gm/100 Ml) 1 gm in 100 mls @ 200 mls/hr IV Q24H [facility]; Protocol Daptomycin 500 mg/ Sodium (Chloride) 100 mls @ 200 mls/hr IV Q48H [facility] Last Admin: 05/31/21 22:00 Dose: Not Given Documented by: Insulin Human Regular (Insulin Regular, Human 100 Units/1 Ml) 0 units SUB-Q ACHS [facility]; Protocol Last Admin: 05/31/21 22:00 Dose: Not Given Documented by: Labetalol HCl (Labetalol 100 Mg Tab) 100 mg PO TID [facility] Last Admin: 05/31/21 20:00 Dose: Not Given Documented by: Lisinopril (Lisinopril 20 Mg Tab) 20 mg PO QHS [facility] Last Admin: 05/31/21 22:00 Dose: Not Given Documented by: Metoclopramide HCl (Metoclopramide 10 Mg Tab) 2.5 mg PO ACHS [facility] Last Admin: 05/31/21 22:00 Dose: Not Given Documented by: Morphine Sulfate (Morphine 2 Mg/1 Ml Inj) 2 mg IV Q4H PRN PRN Reason: Pain, Moderate (4-6) Nifedipine (Nifedipine Xl 60 Mg Tab) 60 mg PO Q12HR [facility] Last Admin: 05/31/21 22:00 Dose: Not Given Documented by: Ondansetron HCl (Ondansetron 4 Mg/2 Ml Inj) 4 mg IV Q8H PRN PRN Reason: Nausea And Vomiting Oxycodone/Acetaminophen (Oxycodone /Acetaminophen 5-325mg Tab) 1 tab PO Q6H PRN PRN Reason: Pain, Moderate (4-6) Sodium Chloride (Sodium Chloride 0.9% 10 Ml Flush Syringe) 10 ml IV BID [facility] Last Admin: 05/31/21 22:00 Dose: Not Given Documented by: Sodium Chloride (Sodium Chloride 0.9% 10 Ml Flush Syringe) 10 ml IV PRN PRN PRN Reason: LINE FLUSH Review of Systems Constitutional: weight gain, fatigue, weakness, malaise, no weight loss, no fever, no chills, no anorexia Cardiovascular: orthopnea, edema, shortness of breath, high blood pressure, leg edema, no chest pain, no syncope, no lightheadedness Respiratory: shortness of breath, dyspnea on exertion, no cough Gastrointestinal: no abdominal pain, no nausea, no vomiting, no diarrhea, no melena Neurological: no aphasia, no change in speech, no change in mentation, no confusion Exam - Vital Signs Vital signs: Vital Signs Temp Pulse Resp BP Pulse Ox 94.0 F L 68 18 143/76 100 05/31/21 13:46 05/31/21 13:46 05/31/21 13:46 05/31/21 13:46 05/31/21 13:46 Results - Lab Results 06/01/21 11:19 06/01/21 11:19 Most recent lab results Calcium 8.6 mg/dL (8.4-10.2) 05/31/21 16:47 Phosphorus 10.20 mg/dL (2.5-4.5) H 05/31/21 16:47 Magnesium 2.80 mg/dL (1.7-2.3) H 05/31/21 16:47 Assessment and Plan 1. ESRD: Patient presented after he missed three weeks of hemodialysis. Meds dosage based on GFR. Hemodialysis: 05/31. HD today. 2. FEN: Hyperkalemia, s/p urgent HD 05/31. Volume overload, UF with HD as tolerated. Monitor lytes and volume status. 3. Anemia, POA: 2/2 ESRD. Epogen with HD as needed. 4. CAD s/p CABG: Continue home meds. 5. H/o MRSA bacteremia: On Daptomycin and Cefepime. ID consulted. Follow cultures. 6. DM. 7. Hypertension: Volume control. Adjust meds as needed. Monitor. Subjective: Patient was seen and examined at the bedside. General Appearance: General appearance: well-developed, appears stated age, not in distress, appears chronically ill HEENT: ATNC, pupils equal Neck: trachea midline Respiratory: ctab Heart: regular, S1S2, no murmur Abdomen: soft, bowel sounds heard, distended, not tender Integumentary: no rash, warm and dry Neurologic: AO, able to move extremities Ext: trace LE edema, amputation of R great toe Hemodialysis access: R arm AVF
[2021-06-01] MEDS: ENOXAPARIN 30 MG/0.3 ML INJ SUB-Q SCH (09:30)
[2021-06-01] MEDS: NIFEdipine XL 60 MG TAB PO SCH (09:30)
[2021-06-01] MEDS: FAMOTIDINE 20 MG/2 ML INJ IV SCH (09:31)
[2021-06-01] MEDS ORDERED: ENOXAPARIN 40 MG/0.4 ML INJ SUB-Q SCH (10:00)
[2021-06-01] MEDS ORDERED: HEPARIN 10,000 UNITS/10 ML VIAL IV PRN (10:20)
[2021-06-01] MEDS: FAMOTIDINE 10 MG TAB PO SCH (10:26)
[2021-06-01 11:39] LABS: Hematocrit 21.1 % (35.5-45.6); Hemoglobin 6.6 gm/dl (11.8-15.2); Mean Corpuscular HGB Conc 31 % (32-34); Mean Corpuscular Volume 87 fl (84-94); Platelet Count 176 K/mm3 (140-440); Red Blood Count 2.44 M/mm3 (3.65-5.03); Red Cell Distribution Width 18.6 % (13.2-15.2)
--- NOTE | 2021-06-01 11:39 | Progress Note ---
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 Was receiving vancomycin and cefepime at hemodialysis at some point. Patient has missed dialysis for 3 weeks and presents with generalized malaise associated with increased abdominal girth and lower extremity edema. Patient at present poor historian secondary to somnolence consistent with metabolic encephalopathy. Will wake up and he is alert but will go back to sleep and mumble. Patient stated fluid built up over the last several days of not receiving hemodialysis. Gives no reason for not going. After review of patient's past visits to the hospital he has been here 6 times this year alone and is notorious for noncompliance. cxr: CHF 06/01: Patient with multiple medical conditions. Currently had dialysis yesterday awaiting results to ensure resolution of hyperkalemia. Extensive counseling provided to the patient about his noncompliance. I have also taken the liberty to consult cardiology and also infectious disease I am not sure if the valve surgery was full treatment and if patient completed antibiotics. I will defer to the team will also request records from [place]. I will also obtain a BiPAP to the bedside. Continue to monitor oxygen management as patient has underlying acute hypoxic respiratory failure states that he is on 5 l of oxygen at home. If no improvement will probably need a pulmonary consultation in addition. Condition at this time remains guarded 15 minutes of counseling provided along with case management and the patient's nurse at bedside (1) Accelerated hypertension Status: Acute Plan to address problem: Patient with accelerated hypertension. Requiring hemodialysis will restart antihypertensives labetalol at this time. Would not be too aggressive with blood pressure because of high suspicion for underlying sepsis and septic shock. Patient hypothermic hypotensive upon admission. (2) Acute hyperkalemia Status: Acute Plan to address problem: Secondary to missed dialysis and acute on chronic end-stage renal disease. Will place patient insulin, glucose, Kayexalate. Hyperkalemia cocktail, serial chemistries (3) Acute on chronic renal insufficiency Status: Acute Plan to address problem: Acute on chronic renal sufficiency secondary to missed dialysis and noncompliance. Nephrology has been contacted for emergent hemodialysis. Follow electrolytes and correct accordingly. Stress compliance. (4) Bacteremia due to Staphylococcus aureus Status: Acute Plan to address problem: Patient clearly has a picture of sepsis as well. Patient is hypothermic, hypotensive and is receiving vancomycin and cefepime at hemodialysis. If patient has missed the last 3 weeks of dialysis patient has not been receiving antibiotics. Last source was ineffective endocarditis which I suspect was s uboptimally treated secondary to noncompliance as well. Will obtain follow-up blood cultures and reinitiate vancomycin and cefepime (5) Diabetes mellitus Status: Acute Plan to address problem: Patient is encephalopathic currently not hypoglycemic will cover with sliding scale only for now. Reintroduce previous insulin or hypoglycemic regime when patient more stable and eating better. For now sliding scale only. (6) ESRD (end stage renal disease) on dialysis Status: Acute Plan to address problem: Hemodialysis as per nephrology. Patient will require emergent hemodialysis now. Severe hyperkalemia and encephalopathy with volume overload. (7) Elevated troponin Status: Acute Plan to address problem: Type II non-STEMI. No EKG changes consistent with STEMI. (8) Fluid overload Status: Acute Qualifiers: Hypervolemia type: other Qualified Code(s): E87.79 - Other fluid overload Plan to address problem: Secondary to missed hemodialysis and renal failure. Will need to follow-up for evidence of congestive heart failure and ejection fraction as well. Patient has been here multiple times in the past 2 years. Work-up most likely has been completed. (9) acute hypoxic respiratory failure Status: Acute (10) Gram-negative bacteremia Status: Acute Plan to address problem: Cardiac vegetations. Treat vancomycin and cefepime. (11) recent infectious endocarditis- Recent Valve surgery (12) Metabolic encephalopathy Status: Acute Plan to address problem: Multifactorial sepsis along with uremia as clear sources for metabolic encephalopathy. Correct underlying etiology. Blood cultures antibiotics and emergent hemodialysis. (13) NSTEMI (non-ST elevated myocardial infarction) Status: Acute (14) Nausea & vomiting Status: Acute Qualifiers: Vomiting type: unspecified Vomiting Intractability: non-intractable Qualified Code(s): R11.2 - Nausea with vomiting, unspecified Plan to address problem: Zofran as needed secondary to uremia. (15) Sepsis Status: Acute Qualifiers: Sepsis type: methicillin resistant Staphylococcus aureus (16) IDDM (insulin dependent diabetes mellitus) Status: Chronic (17) Medical non-compliance Status: Chronic Plan to address problem: Patient is encephalopathic however did stress compliance. Will probably require additional education prior to discharge. (18) full code status History Interval history: Patient seen and examined this morning reports continued shortness of breath although improving. 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 Tells me he uses 5 l of oxygen at home. Hospitalist Physical - Physical exam Narrative exam: VITAL SIGNS: Reviewed. GENERAL: The patient appears normally developed, mild to moderate distress vital signs as documented. HEAD: No signs of head trauma. EYES: Pupils are equal. Extraocular motions intact. EARS: Hearing grossly intact. MOUTH: Oropharynx is normal. NECK: No adenopathy, no JVD. CHEST: Chest with diminished breath sounds bilaterally. Shallow breath no wheezes, rales, or rhonchi. CARDIAC: Regular rate and rhythm. S1 and S2, without murmurs, gallops, or rubs. VASCULAR: No Edema. Peripheral pulses normal and equal in all extremities. ABDOMEN: Soft, non tender and non distended. No rebound or guarding, and no masses palpated. Bowel Sounds normal. MUSCULOSKELETAL: Well-healed surgical line in the mid sternum area good range of motion of all major joints. Extremities without clubbing, cyanosis or edema. NEUROLOGIC EXAM: Awake but lethargic and oriented x 3 No focal sensory or strength deficits. Speech normal. Follows commands. PSYCHIATRIC: Mood normal. SKIN: detail exam as documented in skin assessment - Constitutional Vitals: Temp Pulse Resp BP Pulse Ox 97.8 F 107 H 24 130/72 94 05/31/21 21:30 05/31/21 21:30 05/31/21 21:30 05/31/21 21:30 06/01/21 10:00 General appearance: Present: mild distress, other (Encephalopathic) HEART Score - HEART Score Troponin: Troponin T 0.995 ng/mL (0.00-0.029) H* 05/31/21 16:47 Results - Labs CBC & Chem 7: 05/31/21 16:47 05/31/21 16:47 Labs: Laboratory Last Values WBC 3.9 K/mm3 (4.5-11.0) L 05/31/21 16:47 RBC 2.90 M/mm3 (3.65-5.03) L 05/31/21 16:47 Hgb 7.7 gm/dl (11.8-15.2) L 05/31/21 16:47 Hct 25.3 % (35.5-45.6) L 05/31/21 16:47 MCV 87 fl (84-94) 05/31/21 16:47 MCH 27 pg (28-32) L 05/31/21 16:47 MCHC 30 % (32-34) L 05/31/21 16:47 RDW 18.6 % (13.2-15.2) H 05/31/21 16:47 Plt Count 171 K/mm3 (140-440) 05/31/21 16:47 Iron % (Auto) [employer]ward 05/31/21 16:47 Baso % (Auto) [employer] Steward 05/31/21 16:47 Add Manual Diff Complete 05/31/21 16:47 Total Counted 100 05/31/21 16:47 Seg Neuts % (Manual) 54.0 % (40.0-70.0) 05/31/21 16:47 Lymphocytes % (Manual) 31.0 % (13.4-35.0) 05/31/21 16:47 Monocytes % (Manual) 11.0 % (0.0-7.3) H 05/31/21 16:47 Eosinophils % (Manual) 1.0 % (0.0-4.3) 05/31/21 16:47 Basophils % (Manual) 3.0 % (0.0-1.8) H 05/31/21 16:47 Nucleated RBC % Not Reportable 05/31/21 16:47 Seg Neutrophils # Man 2.1 K/mm3 (1.8-7.7) 05/31/21 16:47 Band Neutrophils # 0.0 K/mm3 05/31/21 16:47 Lymphocytes # (Manual) 1.2 K/mm3 (1.2-5.4) 05/31/21 16:47 Abs React Lymphs (Man) 0.0 K/mm3 05/31/21 16:47 Monocytes # (Manual) 0.4 K/mm3 (0.0-0.8) 05/31/21 16:47 Eosinophils # (Manual) 0.0 K/mm3 (0.0-0.4) 05/31/21 16:47 Basophils # (Manual) 0.1 K/mm3 (0.0-0.1) 05/31/21 16:47 Metamyelocytes # 0.0 K/mm3 05/31/21 16:47 Myelocytes # 0.0 K/mm3 05/31/21 16:47 Promyelocytes # 0.0 K/mm3 05/31/21 16:47 Blast Cells # 0.0 K/mm3 05/31/21 16:47 WBC Morphology Not Reportable 05/31/21 16:47 Hypersegmented Neuts Not Reportable 05/31/21 16:47 Hyposegmented Neuts Not Reportable 05/31/21 16:47 Hypogranular Neuts Not Reportable 05/31/21 16:47 Smudge Cells Not Reportable 05/31/21 16:47 Toxic Granulation Not Reportable 05/31/21 16:47 Toxic Vacuolation Not Reportable 05/31/21 16:47 Dohle Bodies Not Reportable 05/31/21 16:47 Pelger-Huet Anomaly Not Reportable 05/31/21 16:47 Julio Cesar Rods Not Reportable 05/31/21 16:47 Platelet Estimate Consistent w auto 05/31/21 16:47 Clumped Platelets Not Reportable 05/31/21 16:47 Plt Clumps, EDTA Not Reportable 05/31/21 16:47 Large Platelets Not Reportable 05/31/21 16:47 Giant Platelets Not Reportable 05/31/21 16:47 Platelet Satelliting Not Reportable 05/31/21 16:47 Plt Morphology Comment Not Reportable 05/31/21 16:47 RBC Morphology Not Reportable 05/31/21 16:47 Dimorphic RBCs Not Reportable 05/31/21 16:47 Polychromasia Not Reportable 05/31/21 16:47 Hypochromasia 1+ 05/31/21 16:47 Poikilocytosis Not Reportable 05/31/21 16:47 Anisocytosis 1+ 05/31/21 16:47 Microcytosis Not Reportable 05/31/21 16:47 Macrocytosis Not Reportable 05/31/21 16:47 Spherocytes Not Reportable 05/31/21 16:47 Pappenheimer Bodies Not Reportable 05/31/21 16:47 Sickle Cells Not Reportable 05/31/21 16:47 Target Cells Not Reportable 05/31/21 16:47 Tear Drop Cells Not Reportable 05/31/21 16:47 Ovalocytes Not Reportable 05/31/21 16:47 Helmet Cells Not Reportable 05/31/21 16:47 [place] Bodies Not Reportable 05/31/21 16:47 [place] Rings Not Reportable 05/31/21 16:47 Olive Cells Not Reportable 05/31/21 16:47 Bite Cells Not Reportable 05/31/21 16:47 Crenated Cell Not Reportable 05/31/21 16:47 Elliptocytes Not Reportable 05/31/21 16:47 Acanthocytes (Spur) Not Reportable 05/31/21 16:47 Rouleaux Not Reportable 05/31/21 16:47 Hemoglobin C Crystals Not Reportable 05/31/21 16:47 Schistocytes Not Reportable 05/31/21 16:47 Malaria parasites Not Reportable 05/31/21 16:47 David Bodies Not Reportable 05/31/21 16:47 Hem Pathologist Commnt No 05/31/21 16:47 PT 19.3 Sec. (12.2-14.9) H 05/31/21 16:47 INR 1.58 (0.87-1.13) H 05/31/21 16:47 APTT 46.8 Sec. (24.2-36.6) H 05/31/21 16:47 Sodium 147 mmol/L (137-145) H 05/31/21 16:47 Potassium 7.0 mmol/L (3.6-5.0) H* 05/31/21 16:47 Chloride 108.0 mmol/L (98-107) H 05/31/21 16:47 Carbon Dioxide 16 mmol/L (22-30) L 05/31/21 16:47 Anion Gap 30 mmol/L 05/31/21 16:47 BUN 135 mg/dL (9-20) H 05/31/21 16:47 Creatinine 17.2 mg/dL (0.8-1.3) H 05/31/21 16:47 Estimated GFR 4 ml/min 05/31/21 16:47 BUN/Creatinine Ratio 8 % 05/31/21 16:47 Glucose 104 mg/dL (75-100) H 05/31/21 16:47 POC Glucose 90 mg/dL (70-105) 06/01/21 07:47 Lactic Acid 0.80 mmol/L (0.7-2.0) 05/31/21 18:29 Calcium 8.6 mg/dL (8.4-10.2) 05/31/21 16:47 Phosphorus 10.20 mg/dL (2.5-4.5) H 05/31/21 16:47 Magnesium 2.80 mg/dL (1.7-2.3) H 05/31/21 16:47 Total Bilirubin 0.60 mg/dL (0.1-1.2) 05/31/21 16:47 AST 16 units/L (5-40) 05/31/21 16:47 ALT 12 units/L (7-56) 05/31/21 16:47 Alkaline Phosphatase 416 units/L (35-129) H 05/31/21 16:47 Troponin T 0.995 ng/mL (0.00-0.029) H* 05/31/21 16:47 NT-Pro-B Natriuret Pep > 34179 pg/mL (0-450) H 05/31/21 16:47 Total Protein 8.2 g/dL (6.3-8.2) 05/31/21 16:47 Albumin 3.4 g/dL (3.9-5) L 05/31/21 16:47 Albumin/Globulin Ratio 0.7 % 05/31/21 16:47 Triglycerides 102 mg/dL (2-149) 05/31/21 16:47 Cholesterol 82 mg/dL (50-199) 05/31/21 16:47 LDL Cholesterol Direct 28 mg/dL (50-130) L 05/31/21 16:47 HDL Cholesterol 35 mg/dL (40-59) L 05/31/21 16:47 Cholesterol/HDL Ratio 2.34 % 05/31/21 16:47 TSH 9.830 mlU/mL (0.270-4.200) H 05/31/21 18:29 Hepatitis A IgM Ab Non-reactive (NonReactive) 05/31/21 20:00 Hep Bs Antigen Non-reactive (Negative) 05/31/21 20:00 Hep B Core IgM Ab Non-reactive (NonReactive) 05/31/21 20:00 Hepatitis C Antibody Non-reactive (NonReactive) 05/31/21 20:00 Microbiology: Microbiology 05/31/21 18:38 Peripheral/Venous Blood Culture - Preliminary Culture in Progress 05/31/21 18:29 Peripheral/Venous Blood Culture - Preliminary Culture in Progress Perez/IV: Voiding Method Urinal Active Medications - Current Medications Current Medications: Generic Name Dose Route Start Last Admin Trade Name Freq PRN Reason Stop Dose Admin Acetaminophen 650 mg 05/31/21 18:43 Acetaminophen 325 Mg Tab PO Q4H PRN Pain MILD(1-3)/Fever >100.5/LANZA Albuterol 2.5 mg 05/31/21 19:19 Albuterol 2.5 Mg/3 Ml Nebu IH Q4HRT PRN Shortness Of Breath Dextrose 50 ml 05/31/21 18:43 Dextrose 50% In Water (25gm) 50 Ml Syringe IV Q30MIN PRN Hypoglycemia Protocol Enoxaparin Sodium 30 mg 06/01/21 10:00 06/01/21 09:30 Enoxaparin 30 Mg/0.3 Ml Inj SUB-Q 30 mg QDAY [facility] Administration Famotidine 10 mg 06/01/21 10:00 06/01/21 10:26 Famotidine 10 Mg Tab PO Not Given BID [facility] Heparin Sodium (Porcine) 2,000 unit 06/01/21 10:20 Heparin 10,000 Units/10 Ml Vial IV BRENDAN PRN hemodialysis Hydralazine HCl 50 mg 05/31/21 22:00 06/01/21 06:00 Hydralazine 25 Mg Tab PO Not Given Q8HR [facility] Sodium Chloride 100 mls @ 999 mls/hr 05/31/21 17:45 Nacl 0.9% IV BRENDAN PRN Hypotension Cefepime HCl 1 gm in 100 mls @ 200 mls/hr 06/01/21 16:00 Cefepime/Ns 1 Gm/100 Ml IV Q24H [facility] Protocol Daptomycin 500 mg/ Sodium 100 mls @ 200 mls/hr 05/31/21 22:00 Chloride IV Q48H [facility] Insulin Human Regular 0 units 05/31/21 22:00 06/01/21 07:30 Insulin Regular, Human 100 Units/1 Ml SUB-Q Not Given ACHS [facility] Protocol Labetalol HCl 100 mg 05/31/21 20:00 06/01/21 08:00 Labetalol 100 Mg Tab PO 100 mg TID [facility] Administration Lisinopril 20 mg 05/31/21 22:00 05/31/21 22:00 Lisinopril 20 Mg Tab PO Not Given QHS [facility] Metoclopramide HCl 2.5 mg 05/31/21 22:00 06/01/21 07:30 Metoclopramide 10 Mg Tab PO 2.5 mg ACHS [facility] Administration Morphine Sulfate 2 mg 05/31/21 18:43 Morphine 2 Mg/1 Ml Inj IV Q4H PRN Pain, Moderate (4-6) Nifedipine 60 mg 05/31/21 22:00 06/01/21 09:30 Nifedipine Xl 60 Mg Tab PO 60 mg Q12HR [facility] Administration Ondansetron HCl 4 mg 05/31/21 18:43 Ondansetron 4 Mg/2 Ml Inj IV Q8H PRN Nausea And Vomiting Oxycodone/Acetaminophen 1 tab 05/31/21 18:43 Oxycodone /Acetaminophen 5-325mg Tab PO Q6H PRN Pain, Moderate (4-6) Sodium Chloride 10 ml 05/31/21 22:00 06/01/21 09:30 Sodium Chloride 0.9% 10 Ml Flush Syringe IV 10 ml BID [facility] Administration Sodium Chloride 10 ml 05/31/21 18:43 Sodium Chloride 0.9% 10 Ml Flush Syringe IV PRN PRN LINE FLUSH
[2021-06-01 11:46] LABS: Calcium 8.5 mg/dL (8.4-10.2)
[2021-06-01] MEDS ORDERED: hydrALAZINE 20 MG/1 ML INJ IV PRN (12:01)
--- NOTE | 2021-06-01 12:33 | Electrocardiograph Report ---
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
[2021-06-01] MEDS: SEVELAMER CARBONATE 800 MG TAB PO SCH ×2 (13:08→17:42)
[2021-06-01] MEDS: ASPIRIN 81 MG TAB CHEW PO SCH (13:09)
[2021-06-01] MEDS: SERTRALINE 50 MG TAB PO SCH (13:09)
[2021-06-01 14:22] LABS: Anisocytosis 1+; Hypochromasia 1+; Platelet Estimate Consistent w Auto; Total Cells Counted 100
--- NOTE | 2021-06-01 15:18 | Consultation ---
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 The patient presented to the ED with maliase and lower extremity edema. The patient was hospitalized from MVR surgery form 03/10/2021 to 05/05/2021 and has not had dialysis since his discharge. He states that he has not gone to dialysis because he had pain throughout his body but could not describe it. Echo 02/24/2021- EF 50-55%, Normal LV function moderate LVH large anterior mitral valve vegetation moderate pericardial effusion no tamponade mild to moderate mitral rotation TTE 03/18 Ef 45-50%, mean mitral grad 11, moderate TR, est RVSP 57, mild PI, grade 2 diastolic dysfunction Past History Past Medical History: anemia, diabetes, dialysis, ESRD, GERD, heart failure, hypertension, hyperlipidemia, renal failure. denies: acute PR, atrial fib, arrhythmia, arthritis, CAD, cancer, COPD, DVT, hepatitis, HIV/AIDS, hyperthyroidism, hypothyroidism, liver disease, migraines, PVD, pulmonary embolism, seizures, stroke, sarcoidosis Past Surgical History: valve replacement (Mitral valve replacement ), Other ( Also surgery in his graft for hemodialysis). denies: arthroscopy, total hip replacement Social history: single, lives with family, full code. denies: smoking, alcohol abuse Family history: diabetes, hypertension Medications and Allergies Allergies Allergy/AdvReac Type Severity Reaction Status Date / Time No Known Allergies Allergy Verified 07/20/20 15:05 Home Medications Medication Instructions Recorded Confirmed Last Taken Type Lispro Insulin [HumaLOG] 5 unit SQ AC #1 vial 04/17/20 06/01/21 09/05/20 17:00 Rx Albuterol Sulfate [Albuterol 0.63% 0.63 mg IH BID PRN #60 vial 11/03/20 06/01/21 Unknown Rx NEBS] Metoclopramide [Reglan TAB] 5 mg PO ACHS #30 tablet 12/19/20 06/01/21 Unknown Rx Epoetin Wale-Epbx 10,000 Unit 10,000 unit SUB-Q BRENDAN vial 01/12/21 06/01/21 Unknown Rx [Retacrit] labetaloL [Labetalol 100mg TAB] 100 mg PO TID #90 tablet 01/12/21 06/01/21 Unkno wn Rx Acetaminophen [Acetaminophen TAB] 650 mg PO Q4H PRN tablet 02/26/21 06/01/21 Unknown Rx DAPTOmycin 500 mg IV Q48H vial 02/26/21 06/01/21 Unknown Rx Dextrose 50% in Water [D50W (25GM) 50 ml IV Q30MIN PRN syringe 02/26/21 06/01/21 Unknown Rx Syringe] Epoetin Wale-Epbx 10,000 Unit 10,000 unit SUB-Q BRENDAN vial 02/26/21 06/01/21 Unknown Rx [Retacrit] Insulin Glargine [Lantus VIAL] 12 units SUB-Q QHS units 02/26/21 06/01/21 Unknown Rx Lispro Insulin [HumaLOG] 0 unit SUB-Q ACHS units 02/26/21 06/01/21 Unknown Rx NIFEdipine XL [Procardia Xl] 60 mg PO Q12HR tablet 02/26/21 06/01/21 Unknown Rx Pantoprazole [Protonix TAB] 40 mg PO BID tablet 02/26/21 06/01/21 Unknown Rx guaiFENesin ER [Mucinex ER] 600 mg PO BID PRN tablet 02/26/21 06/01/21 Unknown Rx hydrALAZINE [Apresoline INJ] 10 mg IV Q4HR PRN vial 02/26/21 06/01/21 Unknown Rx hydrALAZINE [Apresoline TAB] 50 mg PO Q8HR tablet 02/26/21 06/01/21 Unknown Rx lisinopriL [Zestril TAB] 20 mg PO QHS tablet 02/26/21 06/01/21 Unknown Rx Active Meds: Active Medications Acetaminophen (Acetaminophen 325 Mg Tab) 650 mg PO Q4H PRN PRN Reason: Pain MILD(1-3)/Fever >100.5/LANZA Albuterol (Albuterol 2.5 Mg/3 Ml Nebu) 2.5 mg IH Q4HRT PRN PRN Reason: Shortness Of Breath Amlodipine Besylate (Amlodipine 10 Mg Tab) 10 mg PO QDAY K[facility] Aspirin (Aspirin 81 Mg Tab Chew) 81 mg PO QDAY [facility] Last Admin: 06/01/21 13:09 Dose: 81 mg Documented by: Carvedilol (Carvedilol 6.25 Mg Tab) 6.25 mg PO BID [facility] Dextrose (Dextrose 50% In Water (25gm) 50 Ml Syringe) 50 ml IV Q30MIN PRN; P rotocol PRN Reason: Hypoglycemia Docusate Sodium (Docusate Sodium 100 Mg Cap) 100 mg PO BID [facility] Enoxaparin Sodium (Enoxaparin 30 Mg/0.3 Ml Inj) 30 mg SUB-Q QDAY [facility] Last Admin: 06/01/21 09:30 Dose: 30 mg Documented by: Famotidine (Famotidine 10 Mg Tab) 10 mg PO BID [facility] Last Admin: 06/01/21 10:26 Dose: Not Given Documented by: Heparin Sodium (Porcine) (Heparin 10,000 Units/10 Ml Vial) 2,000 unit IV BRENDAN PRN PRN Reason: hemodialysis Hydralazine HCl (Hydralazine 20 Mg/1 Ml Inj) 10 mg IV Q4HR PRN PRN Reason: Hypertension Sodium Chloride (Nacl 0.9%) 100 mls @ 999 mls/hr IV BRENDAN PRN PRN Reason: Hypotension Daptomycin 500 mg/ Sodium (Chloride) 100 mls @ 200 mls/hr IV Q48H [facility] Last Admin: 06/01/21 13:08 Dose: 200 mls/hr Documented by: Insulin Human Regular (Insulin Regular, Human 100 Units/1 Ml) 0 units SUB-Q [facility]; Protocol Last Admin: 06/01/21 11:30 Dose: Not Given Documented by: Lisinopril (Lisinopril 20 Mg Tab) 20 mg PO QHS [facility] Last Admin: 05/31/21 22:00 Dose: Not Given Documented by: Metoclopramide HCl (Metoclopramide 10 Mg Tab) 2.5 mg PO ACHS [facility] Last Admin: 06/01/21 13:09 Dose: 2.5 mg Documented by: Morphine Sulfate (Morphine 2 Mg/1 Ml Inj) 2 mg IV Q4H PRN PRN Reason: Pain, Moderate (4-6) Ondansetron HCl (Ondansetron 4 Mg/2 Ml Inj) 4 mg IV Q8H PRN PRN Reason: Nausea And Vomiting Oxycodone/Acetaminophen (Oxycodone /Acetaminophen 5-325mg Tab) 1 tab PO Q6H PRN PRN Reason: Pain, Moderate (4-6) Sertraline HCl (Sertraline 50 Mg Tab) 50 mg PO QDAY [facility] Last Admin: 06/01/21 13:09 Dose: 50 mg Documented by: Sevelamer Carbonate (Sevelamer Carbonate 800 Mg Tab) 1,600 mg PO TIDWM [facility] Last Admin: 06/01/21 13:08 Dose: 1,600 mg Documented by: Sodium Chloride (Sodium Chloride 0.9% 10 Ml Flush Syringe) 10 ml IV BID [facility] Last Admin: 06/01/21 09:30 Dose: 10 ml Documented by: Sodium Chloride (Sodium Chloride 0.9% 10 Ml Flush Syringe) 10 ml IV PRN PRN PRN Reason: LINE FLUSH Review of Systems All systems: negative Constitutional: weight gain, weakness, malaise, no weight loss, no fever, no chills Ears, nose, mouth and throat: no ear pain, no ear discharge, no tinnitis, no decreased hearing Cardiovascular: chest pain, edema, shortness of breath, dyspnea on exertion, no palpitations Respiratory: shortness of breath, dyspnea on exertion, no cough, no cough with sputum, no excessive sputum Gastrointestinal: abdominal pain, no nausea, no vomiting, no diarrhea Musculoskeletal: no neck stiffness, no neck pain, no shooting arm pain, no arm numbness/tingling Integumentary: no rash, no pruritis, no redness, no sores Neurological: no head injury, no transient paralysis, no paralysis Psychiatric: no anxiety Endocrine: no cold intolerance, no heat intolerance Hematologic/Lymphatic: no easy bruising, no easy bleeding Physical Examination Last Vital Signs Temp 97.8 F 05/31/21 21:30 Pulse 107 H 05/31/21 21:30 Resp 24 05/31/21 21:30 BP 130/72 05/31/21 21:30 Pulse Ox 94 06/01/21 10:00 General appearance: no acute distress HEENT: Positive: PERRL Neck: Positive: trachea midline Cardiac: Positive: Reg Rate and Rhythm Lungs: Positive: Decreased Breath Sounds Neuro: Positive: Grossly Intact Abdomen: Positive: Soft, Active Bowel Sounds Skin: Negative: Rash, Suspicious Lesions Extremities: Present: upper extr. pulses, lower extr. pulses, +2 Edema Results 06/01/21 11:19 06/01/21 11:19 Cardiac Enzymes 05/31/21 Range/Units 16:47 AST 16 (5-40) units/L Coagulation 05/31/21 Range/Units 16:47 PT 19.3 H (12.2-14.9) Sec. INR 1.58 H (0.87-1.13) APTT 46.8 H (24.2-36.6) Sec. Lipids 05/31/21 Range/Units 16:47 Triglycerides 102 (2-149) mg/dL Cholesterol 82 (50-199) mg/dL HDL Cholesterol 35 L (40-59) mg/dL Cholesterol/HDL Ratio 2.34 % CBC 05/31/21 06/01/21 Range/Units 16:47 11:19 WBC 3.9 L 3.6 L (4.5-11.0) K/mm3 RBC 2.90 L 2.44 L (3.65-5.03) M/mm3 Hgb 7.7 L 6.6 L (11.8-15.2) gm/dl Hct 25.3 L 21.1 L (35.5-45.6) % Plt Count 171 176 (140-440) K/mm3 Comprehensive Metabolic Panel 05/31/21 06/01/21 Range/Units 16:47 11:19 Sodium 147 H 148 H (137-145) mmol/L Potassium 7.0 H* 5.0 D (3.6-5.0) mmol/L Chloride 108.0 H 107.0 (98-107) mmol/L Carbon Dioxide 16 L 22 (22-30) mmol/L BUN 135 H 98 H (9-20) mg/dL Creatinine 17.2 H 13.5 H (0.8-1.3) mg/dL Glucose 104 H 122 H (75-100) mg/dL Calcium 8.6 8.5 (8.4-10.2) mg/dL AST 16 (5-40) units/L ALT 12 (7-56) units/L Alkaline Phosphatase 416 H (35-129) units/L Total Protein 8.2 (6.3-8.2) g/dL Albumin 3.4 L (3.9-5) g/dL - Imaging and Cardiology Echo: report reviewed EKG: report reviewed, image reviewed EKG interpretations - Telemetry EKG Rhythm: Sinus Rhythm - EKG Sinus rhythms and dysrhythmias: sinus rhythm Assessment and Plan NSTEMI type 2 * EKG shows normal sinus rhythm, Troponins elevated most likely secondary to volume overload. AMI ruled out * Echo pending HFrEF * TTE 03/18 Ef 45-50%, mean mitral grad 11, moderate TR, est RVSP 57, mild PI, grade 2 diastolic dysfunction * BNP noted to be elevated most likely secondary to volume overload from missing HD for several weeks * Volume management per nephrology recommendations HTN * Continue Coreg 6.125mg PO BID , amlodipine 10 mg PO QD , and hydralizine 10mg IV PRN * Hold lisinopril in setting of JERED on CKD Patient seen in conjunction with who agrees with this plan of care. We will continue to follow - Patient Problems (1) Diastolic CHF, acute Current Visit: Yes Status: Acute (2) Diabetes mellitus Current Visit: Yes Status: Acute (3) ESRD (end stage renal disease) Current Visit: Yes Status: Acute (4) Elevated troponin Current Visit: Yes Status: Acute (5) Fluid overload Current Visit: Yes Status: Acute Qualifiers: Hypervolemia type: other Qualified Code(s): E87.79 - Other fluid overload (6) Hyperkalemia Current Visit: Yes Status: Acute (7) NSTEMI (non-ST elevated myocardial infarction) Current Visit: Yes Status: Acute (8) SOB (shortness of breath) Current Visit: Yes Status: Acute
[2021-06-01] MEDS ORDERED: SODIUM CHLORIDE 0.9% 500 ML 500 ML IV SCH (15:21)
[2021-06-01] MEDS ORDERED: CEFEPIME/NS 1 GM/100 ML 1 GM/100 ML BAG IV SCH (16:00)
[2021-06-01] MEDS: EPOETIN ALFA-EPBX 20,000 UNIT/1 ML VIAL SUB-Q PRN (17:47)
--- NOTE | 2021-06-01 19:23 | Event Note ---
Date: 06/01/21 Came to see patient, he is out of his room
[2021-06-01] MEDS ORDERED: carvediloL 6.25 MG TAB PO SCH (22:00)
[2021-06-02] MEDS: DOCUSATE SODIUM 100 MG CAP PO SCH ×3 (00:32→22:20)
[2021-06-02] MEDS: METOCLOPRAMIDE 10 MG TAB PO SCH ×5 (00:33→22:21)
[2021-06-02] MEDS: FAMOTIDINE 10 MG TAB PO SCH ×3 (00:33→22:21)
[2021-06-02] MEDS: LISINOPRIL 20 MG TAB PO SCH ×2 (00:33→22:22)
[2021-06-02] MEDS: INSULIN REGULAR, HUMAN 100 UNITS/1 ML SUB-Q SCH ×3 (07:30→16:30)
[2021-06-02] MEDS: SEVELAMER CARBONATE 800 MG TAB PO SCH ×3 (08:00→17:00)
--- NOTE | 2021-06-02 08:43 | Progress Note ---
Assessment and Plan 1. ESRD: Patient presented after he missed three weeks of hemodialysis. Meds dosage based on GFR. Hemodialysis: 05/31, 06/01. 2. FEN: Hyperkalemia, improved with urgent HD 05/31. Volume overload, UF with HD as tolerated. Monitor lytes and volume status. 3. Anemia, POA: 2/2 ESRD. Epogen with HD as needed. 4. CAD s/p CABG: Continue home meds. 5. H/o MRSA bacteremia: On Daptomycin. ID consulted. Follow cultures. 6. NSTEMI type 2: Followed by Cards. 7. HFrEF: Volume control with HD. 8. DM. 9. Hypertension: Volume control. Adjust meds as needed. Monitor. Subjective: Patient was seen and examined at the bedside. General Appearance: General appearance: well-developed, appears stated age, not in distress, appears chronically ill HEENT: ATNC, pupils equal Neck: trachea midline Respiratory: ctab Heart: regular, S1S2, no murmur Abdomen: soft, bowel sounds heard, distended, not tender Integumentary: no rash, warm and dry Neurologic: AO, able to move extremities Ext: no edema, amputation of R great toe Hemodialysis access: R arm AVF Subjective Date of service: 06/02/21 Objective - Vital Signs Vital signs: Vital Signs - 12hr 06/01/21 06/02/21 21:22 07:50 O2 Sat by Pulse 100 95 Oximetry - Lab 06/01/21 11:19 06/01/21 11:19 Most recent lab results Calcium 8.5 mg/dL (8.4-10.2) 06/01/21 11:19 Phosphorus 10.20 mg/dL (2.5-4.5) H 05/31/21 16:47 Magnesium 2.80 mg/dL (1.7-2.3) H 05/31/21 16:47 Medications & Allergies - Medications Allergies/Adverse Reactions: Allergies No Known Allergies Allergy (Verified 07/20/20 15:05) Home Medications: Home Medications Medication Instructions Recorded Confirmed Last Taken Type Lispro Insulin [HumaLOG] 5 unit SQ AC #1 vial 04/17/20 06/01/21 09/05/20 17:00 Rx Albuterol Sulfate [Albuterol 0.63% 0.63 mg IH BID PRN #60 vial 11/03/20 06/01/21 Unknown Rx NEBS] Metoclopramide [Reglan TAB] 5 mg PO ACHS #30 tablet 12/19/20 06/01/21 Unknown Rx Epoetin Wale-Epbx 10,000 Unit 10,000 unit SUB-Q BRENDAN vial 01/12/21 06/01/21 Unknown Rx [Retacrit] labetaloL [Labetalol 100mg TAB] 100 mg PO TID #90 tablet 01/12/21 06/01/21 Unknown Rx Acetaminophen [Acetaminophen TAB] 650 mg PO Q4H PRN tablet 02/26/21 06/01/21 Unknown Rx DAPTOmycin 500 mg IV Q48H vial 02/26/21 06/01/21 Unknown Rx Dextrose 50% in Water [D50W (25GM) 50 ml IV Q30MIN PRN syringe 02/26/21 06/01/21 Unknown Rx Syringe] Epoetin Wale-Epbx 10,000 Unit 10,000 unit SUB-Q BRENDAN vial 02/26/21 06/01/21 Unknown Rx [Retacrit] Insulin Glargine [Lantus VIAL] 12 units SUB-Q QHS units 02/26/21 06/01/21 Unknown Rx Lispro Insulin [HumaLOG] 0 unit SUB-Q ACHS units 02/26/21 06/01/21 Unknown Rx NIFEdipine XL [Procardia Xl] 60 mg PO Q12HR tablet 02/26/21 06/01/21 Unknown Rx Pantoprazole [Protonix TAB] 40 mg PO BID tablet 02/26/21 06/01/21 Unknown Rx guaiFENesin ER [Mucinex ER] 600 mg PO BID PRN tablet 02/26/21 06/01/21 Unknown Rx hydrALAZINE [Apresoline INJ] 10 mg IV Q4HR PRN vial 02/26/21 06/01/21 Unknown Rx hydrALAZINE [Apresoline TAB] 50 mg PO Q8HR tablet 02/26/21 06/01/21 Unknown Rx lisinopriL [Zestril TAB] 20 mg PO QHS tablet 02/26/21 06/01/21 Unknown Rx Active Medications: Generic Name Dose Route Start Last Admin Trade Name Freq PRN Reason Stop Dose Admin Acetaminophen 650 mg 05/31/21 18:43 Acetaminophen 325 Mg Tab PO Q4H PRN Pain MILD(1-3)/Fever >100.5/LANZA Albuterol 2.5 mg 05/31/21 19:19 Albuterol 2.5 Mg/3 Ml Nebu IH Q4HRT PRN Shortness Of Breath Amlodipine Besylate 10 mg 06/02/21 10:00 Amlodipine 10 Mg Tab PO QDAY KESHIA Aspirin 81 mg 06/01/21 13:00 06/01/21 13:09 Aspirin 81 Mg Tab Chew PO 81 mg QDAY KESHIA Administration Carvedilol 6.25 mg 06/01/21 22:00 06/02/21 00:32 Carvedilol 6.25 Mg Tab PO Not Given BID KESHIA Dextrose 50 ml 05/31/21 18:43 Dextrose 50% In Water (25gm) 50 Ml Syringe IV Q30MIN PRN Hypoglycemia Protocol Docusate Sodium 100 mg 06/01/21 22:00 06/02/21 00:32 Docusate Sodium 100 Mg Cap PO Not Given BID [facility] Enoxaparin Sodium 30 mg 06/01/21 10:00 06/01/21 09:30 Enoxaparin 30 Mg/0.3 Ml Inj SUB-Q 30 mg QDAY [facility] Administration Famotidine 10 mg 06/01/21 10:00 06/02/21 00:33 Famotidine 10 Mg Tab PO Not Given BID [facility] Heparin Sodium (Porcine) 2,000 unit 06/01/21 10:20 Heparin 10,000 Units/10 Ml Vial IV BRENDAN PRN hemodialysis Hydralazine HCl 10 mg 06/01/21 12:01 Hydralazine 20 Mg/1 Ml Inj IV Q4HR PRN Hypertension Sodium Chloride 100 mls @ 999 mls/hr 05/31/21 17:45 Nacl 0.9% IV BRENDAN PRN Hypotension Daptomycin 500 mg/ Sodium 100 mls @ 200 mls/hr 05/31/21 22:00 06/01/21 13:08 Chloride IV 200 mls/hr Q48H KESHIA Administration Sodium Chloride 500 mls @ 0 mls/hr 06/01/21 15:21 Nacl 0.9% 500 Ml IV 06/02/21 15:20 ONCE KESHIA As Directed Insulin Human Regular 0 units 05/31/21 22:00 06/01/21 23:26 Insulin Regular, Human 100 Units/1 Ml SUB-Q Not Given ACHS [facility] Protocol Lisinopril 20 mg 05/31/21 22:00 06/02/21 00:33 Lisinopril 20 Mg Tab PO Not Given QHS [facility] Metoclopramide HCl 2.5 mg 05/31/21 22:00 06/02/21 00:33 Metoclopramide 10 Mg Tab PO Not Given ACHS [facility] Morphine Sulfate 2 mg 05/31/21 18:43 Morphine 2 Mg/1 Ml Inj IV Q4H PRN Pain, Moderate (4-6) Ondansetron HCl 4 mg 05/31/21 18:43 Ondansetron 4 Mg/2 Ml Inj IV Q8H PRN Nausea And Vomiting Oxycodone/Acetaminophen 1 tab 05/31/21 18:43 Oxycodone /Acetaminophen 5-325mg Tab PO Q6H PRN Pain, Moderate (4-6) Sertraline HCl 50 mg 06/01/21 13:00 06/01/21 13:09 Sertraline 50 Mg Tab PO 50 mg QDAY [facility] Administration Sevelamer Carbonate 1,600 mg 06/01/21 12:30 06/01/21 17:42 Sevelamer Carbonate 800 Mg Tab PO Not Given TIDWM [facility] Sodium Chloride 10 ml 05/31/21 22:00 06/02/21 00:35 Sodium Chloride 0.9% 10 Ml Flush Syringe IV 10 ml BID [facility] Administration Sodium Chloride 10 ml 05/31/21 18:43 Sodium Chloride 0.9% 10 Ml Flush Syringe IV PRN PRN LINE FLUSH
[2021-06-02] MEDS ORDERED: amLODIPine 10 MG TAB PO SCH (10:00)
[2021-06-02] MEDS: ENOXAPARIN 30 MG/0.3 ML INJ SUB-Q SCH (11:16)
[2021-06-02] MEDS: ASPIRIN 81 MG TAB CHEW PO SCH (11:17)
[2021-06-02] MEDS: SERTRALINE 50 MG TAB PO SCH (11:18)
[2021-06-02] MEDS: carvediloL 12.5 MG TAB PO SCH ×2 (11:19→22:20)
--- NOTE | 2021-06-02 12:29 | Progress Note ---
Assessment and Plan NSTEMI type 2 * EKG shows normal sinus rhythm, Troponins elevated most likely secondary to volume overload. AMI ruled out * Preliminary Echo report shows that MV has no growth or appendages on it with no regurgitation HFrEF * TTE 03/18 Ef 45-50%, mean mitral grad 11, moderate TR, est RVSP 57, mild PI, grade 2 diastolic dysfunction * BNP noted to be elevated most likely secondary to volume overload from missing HD for several weeks * Volume management per nephrology recommendations HTN * Continue amlodipine 10 mg PO QD , and hydralizine 10mg IV PRN. Increased Coreg to 12.5mg PO BID * Hold lisinopril in setting of JERED on CKD Patient seen in conjunction with who agrees with this plan of care. We will continue to follow - Patient Problems (1) Diastolic CHF, acute Current Visit: Yes Status: Acute (2) Diabetes mellitus Current Visit: Yes Status: Acute (3) ESRD (end stage renal disease) Current Visit: Yes Status: Acute (4) Elevated troponin Current Visit: Yes Status: Acute (5) Fluid overload Current Visit: Yes Status: Acute Qualifiers: Hypervolemia type: other Qualified Code(s): E87.79 - Other fluid overload (6) Hyperkalemia Current Visit: Yes Status: Acute (7) NSTEMI (non-ST elevated myocardial infarction) Current Visit: Yes Status: Acute (8) SOB (shortness of breath) Current Visit: Yes Status: Acute Subjective Date of service: 06/02/21 Principal diagnosis: volume overload Interval history: Patient in bed HOB raised with complaint of SOB. Denies chest pain Objective Last Vital Signs Temp 97.4 F L 06/01/21 18:52 Pulse 76 06/01/21 18:52 Resp 16 06/01/21 18:52 BP 165/89 06/01/21 18:52 Pulse Ox 95 06/02/21 07:50 - Physical Examination General: No Apparent Distress HEENT: Positive: PERRL Neck: Positive: trachea midline Cardiac: Positive: Reg Rate and Rhythm Lungs: Positive: Decreased Breath Sounds (diminished on right side) Neuro: Positive: Grossly Intact Abdomen: Positive: Soft, Active Bowel Sounds Skin: Negative: Rash, Suspicious Lesions Extremities: Present: upper extr. pulses, lower extr. pulses, +1 Edema - Imaging and Cardiology EKG: report reviewed, image reviewed Echo: report reviewed - Telemetry EKG Rhythm: Sinus Rhythm - EKG Sinus rhythms and dysrhythmias: sinus rhythm
--- NOTE | 2021-06-02 12:45 | Progress Note ---
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 Was receiving vancomycin and cefepime at hemodialysis at some point. Patient has missed dialysis for 3 weeks and presents with generalized malaise associated with increased abdominal girth and lower extremity edema. Patient at present poor historian secondary to somnolence consistent with metabolic encephalopathy. Will wake up and he is alert but will go back to sleep and mumble. Patient stated fluid built up over the last several days of not receiving hemodialysis. Gives no reason for not going. After review of patient's past visits to the hospital he has been here 6 times this year alone and is notorious for noncompliance. cxr: CHF 06/01: Patient with multiple medical conditions. Currently had dialysis yesterday awaiting results to ensure resolution of hyperkalemia. Extensive counseling provided to the patient about his noncompliance. I have also taken the liberty to consult cardiology and also infectious disease I am not sure if the valve surgery was full treatment and if patient completed antibiotics. I will defer to the team will also request records from [facility]. I will also obtain a BiPAP to the bedside. Continue to monitor oxygen management as patient has underlying acute hypoxic respiratory failure states that he is on 5 l of oxygen at home. If no improvement will probably need a pulmonary consultation in addition. Condition at this time remains guarded 15 minutes of counseling provided along with case management and the patient's nurse at bedside 06/02: Continue supportive care, patient underwent HD today. No further growth noted on MV. Await further evaluation by ID. Continue to hold lisinopril in setting of JERED on CKD. Considering missed multiple dialysis will continue to need inpatient stay for HD. Will need PT OT evaluation still with exertional dyspnea. (1) Accelerated hypertension Status: Acute Plan to address problem: Patient with accelerated hypertension. Requiring hemodialysis will restart antihypertensives labetalol at this time. Would not be too aggressive with blood pressure because of high suspicion for underlying sepsis and septic shock. Patient hypothermic hypotensive upon admission. (2) Acute hyperkalemia Status: Acute Plan to address problem: Secondary to missed dialysis and acute on chronic end-stage renal disease. Will place patient insulin, glucose, Kayexalate. Hyperkalemia cocktail, serial chemistries (3) Acute on chronic renal insufficiency Status: Acute Plan to address problem: Acute on chronic renal sufficiency secondary to missed dialysis and noncompliance. Nephrology has been contacted for emergent hemodialysis. Follow electrolytes and correct accordingly. Stress compliance. (4) Bacteremia due to Staphylococcus aureus Status: Acute Plan to address problem: Patient clearly has a picture of sepsis as well. Patient is hypothermic, hypotensive and is receiving vancomycin and cefepime at hemodialysis. If patient has missed the last 3 weeks of dialysis patient has not been receiving antibiotics. Last source was ineffective endocarditis which I suspect was suboptimally treated secondary to noncompliance as well. Will obtain follow-up blood cultures and reinitiate vancomycin and cefepime (5) Diabetes mellitus Status: Acute Plan to address problem: Patient is encephalopathic currently not hypoglycemic will cover with sliding scale only for now. Reintroduce previous insulin or hypoglycemic regime when patient more stable and eating better. For now sliding scale only. (6) ESRD (end stage renal disease) on dialysis Status: Acute Plan to address problem: Hemodialysis as per nephrology. Patient will require emergent hemodialysis now. Severe hyperkalemia and encephalopathy with volume overload. (7) Elevated troponin Status: Acute Plan to address problem: Type II non-STEMI. No EKG changes consistent with STEMI. (8) Fluid overload Status: Acute Qualifiers: Hypervolemia type: other Qualified Code(s): E87.79 - Other fluid overload Plan to address problem: Secondary to missed hemodialysis and renal failure. Will need to follow-up for evidence of congestive heart failure and ejection fraction as well. Patient has been here multiple times in the past 2 years. Work-up most likely has been completed. (9) acute hypoxic respiratory failure Status: Acute (10) Gram-negative bacteremia Status: Acute Plan to address problem: Cardiac vegetations. Treat vancomycin and cefepime. (11) recent infectious endocarditis- Recent Valve surgery (12) Metabolic encephalopathy Status: Acute Plan to address problem: Multifactorial sepsis along with uremia as clear sources for metabolic encephalopathy. Correct underlying etiology. Blood cultures antibiotics and emergent hemodialysis. (13) NSTEMI (non-ST elevated myocardial infarction) Status: Acute (14) Nausea & vomiting Status: Acute Qualifiers: Vomiting type: unspecified Vomiting Intractability: non-intractable Qualified Code(s): R11.2 - Nausea with vomiting, unspecified Plan to address problem: Zofran as needed secondary to uremia. (15) Sepsis Status: Acute Qualifiers: Sepsis type: methicillin resistant Staphylococcus aureus (16) IDDM (insulin dependent diabetes mellitus) Status: Chronic (17) Medical non-compliance Status: Chronic Plan to address problem: Patient is encephalopathic however did stress compliance. Will probably require additional education prior to discharge. (18) full code status History Interval history: Patient seen and examined this morning reports much more rested compared to yesterday but still very lethargic now down to 4 L of oxygen Hospitalist Physical - Physical exam Narrative exam: VITAL SIGNS: Reviewed. GENERAL: The patient appears normally developed, mild distress. Lethargic, vital signs as documented. HEAD: No signs of head trauma. EYES: Pupils are equal. Extraocular motions intact. EARS: Hearing grossly intact. MOUTH: Oropharynx is normal. NECK: No adenopathy, no JVD. CHEST: Chest with diminished breath sounds bilaterally. Shallow breath no wheezes, rales, or rhonchi. CARDIAC: Regular rate and rhythm. S1 and S2, without murmurs, gallops, or rubs. VASCULAR: No Edema. Peripheral pulses normal and equal in all extremities. ABDOMEN: Soft, non tender and non distended. No rebound or guarding, and no masses palpated. Bowel Sounds normal. MUSCULOSKELETAL: Well-healed surgical line in the mid sternum area good range of motion of all major joints. Extremities without clubbing, cyanosis or edema. NEUROLOGIC EXAM: Awake but lethargic and oriented x 3 No focal sensory or strength deficits. Speech normal. Follows commands. PSYCHIATRIC: Mood normal. SKIN: detail exam as documented in skin assessment - Constitutional Vitals: Temp Pulse Resp BP Pulse Ox 97.4 F L 76 16 165/89 95 06/01/21 18:52 06/01/21 18:52 06/01/21 18:52 06/01/21 18:52 06/02/21 07:50 General appearance: Present: no acute distress HEART Score - HEART Score Troponin: Troponin T 0.995 ng/mL (0.00-0.029) H* 05/31/21 16:47 Results - Labs CBC & Chem 7: 06/01/21 11:19 06/01/21 11:19 Labs: Laboratory Last Values WBC 3.6 K/mm3 (4.5-11.0) L 06/01/21 11:19 RBC 2.44 M/mm3 (3.65-5.03) L 06/01/21 11:19 Hgb 6.6 gm/dl (11.8-15.2) L 06/01/21 11:19 Hct 21.1 % (35.5-45.6) L 06/01/21 11:19 MCV 87 fl (84-94) 06/01/21 11:19 MCH 27 pg (28-32) L 06/01/21 11:19 MCHC 31 % (32-34) L 06/01/21 11:19 RDW 18.6 % (13.2-15.2) H 06/01/21 11:19 Plt Count 176 K/mm3 (140-440) 06/01/21 11:19 [place] % (Auto) Sign Builder 06/01/21 11:19 Baso % (Auto) Sign Builder 06/01/21 11:19 Add Manual Diff Complete 06/01/21 11:19 Total Counted 100 06/01/21 11:19 Seg Neuts % (Manual) 60.0 % (40.0-70.0) 06/01/21 11:19 Lymphocytes % (Manual) 22.0 % (13.4-35.0) 06/01/21 11:19 Monocytes % (Manual) 10.0 % (0.0-7.3) H 06/01/21 11:19 Eosinophils % (Manual) 7.0 % (0.0-4.3) H 06/01/21 11:19 Basophils % (Manual) 1.0 % (0.0-1.8) 06/01/21 11:19 Nucleated RBC % Not Reportable 06/01/21 11:19 Seg Neutrophils # Man 2.2 K/mm3 (1.8-7.7) 06/01/21 11:19 Band Neutrophils # 0.0 K/mm3 06/01/21 11:19 Lymphocytes # (Manual) 0.8 K/mm3 (1.2-5.4) L 06/01/21 11:19 Abs React Lymphs (Man) 0.0 K/mm3 06/01/21 11:19 Monocytes # (Manual) 0.4 K/mm3 (0.0-0.8) 06/01/21 11:19 Eosinophils # (Manual) 0.3 K/mm3 (0.0-0.4) 06/01/21 11:19 Basophils # (Manual) 0.0 K/mm3 (0.0-0.1) 06/01/21 11:19 Metamyelocytes # 0.0 K/mm3 06/01/21 11:19 Myelocytes # 0.0 K/mm3 06/01/21 11:19 Promyelocytes # 0.0 K/mm3 06/01/21 11:19 Blast Cells # 0.0 K/mm3 06/01/21 11:19 WBC Morphology Not Reportable 06/01/21 11:19 Hypersegmented Neuts Not Reportable 06/01/21 11:19 Hyposegmented Neuts Not Reportable 06/01/21 11:19 Hypogranular Neuts Not Reportable 06/01/21 11:19 Smudge Cells Not Reportable 06/01/21 11:19 Toxic Granulation Not Reportable 06/01/21 11:19 Toxic Vacuolation Not Reportable 06/01/21 11:19 Dohle Bodies Not Reportable 06/01/21 11:19 Pelger-Huet Anomaly Not Reportable 06/01/21 11:19 Julio Cesar Rods Not Reportable 06/01/21 11:19 Platelet Estimate Consistent w auto 06/01/21 11:19 Clumped Platelets Not Reportable 06/01/21 11:19 Plt Clumps, EDTA Not Reportable 06/01/21 11:19 Large Platelets Not Reportable 06/01/21 11:19 Giant Platelets Not Reportable 06/01/21 11:19 Platelet Satelliting Not Reportable 06/01/21 11:19 Plt Morphology Comment Not Reportable 06/01/21 11:19 RBC Morphology Not Reportable 06/01/21 11:19 Dimorphic RBCs Not Reportable 06/01/21 11:19 Polychromasia Not Reportable 06/01/21 11:19 Hypochromasia 1+ 06/01/21 11:19 Poikilocytosis Not Reportable 06/01/21 11:19 Anisocytosis 1+ 06/01/21 11:19 Microcytosis Not Reportable 06/01/21 11:19 Macrocytosis Not Reportable 06/01/21 11:19 Spherocytes Not Reportable 06/01/21 11:19 Pappenheimer Bodies Not Reportable 06/01/21 11:19 Sickle Cells Not Reportable 06/01/21 11:19 Target Cells Not Reportable 06/01/21 11:19 Tear Drop Cells Not Reportable 06/01/21 11:19 Ovalocytes Not Reportable 06/01/21 11:19 Helmet Cells Not Reportable 06/01/21 11:19 Pak-Sacred Heart Bodies Not Reportable 06/01/21 11:19 [place] Rings Not Reportable 06/01/21 11:19 Olive Cells Not Reportable 06/01/21 11:19 Bite Cells Not Reportable 06/01/21 11:19 Crenated Cell Not Reportable 06/01/21 11:19 Elliptocytes Not Reportable 06/01/21 11:19 Acanthocytes (Spur) Not Reportable 06/01/21 11:19 Rouleaux Not Reportable 06/01/21 11:19 Hemoglobin C Crystals Not Reportable 06/01/21 11:19 Schistocytes Not Reportable 06/01/21 11:19 Malaria parasites Not Reportable 06/01/21 11:19 David Bodies Not Reportable 06/01/21 11:19 Hem Pathologist Commnt No 06/01/21 11:19 PT 19.3 Sec. (12.2-14.9) H 05/31/21 16:47 INR 1.58 (0.87-1.13) H 05/31/21 16:47 APTT 46.8 Sec. (24.2-36.6) H 05/31/21 16:47 Sodium 148 mmol/L (137-145) H 06/01/21 11:19 Potassium 5.0 mmol/L (3.6-5.0) D 06/01/21 11:19 Chloride 107.0 mmol/L (98-107) 06/01/21 11:19 Carbon Dioxide 22 mmol/L (22-30) 06/01/21 11:19 Anion Gap 24 mmol/L 06/01/21 11:19 BUN 98 mg/dL (9-20) H 06/01/21 11:19 Creatinine 13.5 mg/dL (0.8-1.3) H 06/01/21 11:19 Estimated GFR 5 ml/min 06/01/21 11:19 BUN/Creatinine Ratio 7 % 06/01/21 11:19 Glucose 122 mg/dL (75-100) H 06/01/21 11:19 POC Glucose 94 mg/dL (70-105) 06/02/21 11:00 Lactic Acid 0.80 mmol/L (0.7-2.0) 05/31/21 18:29 Calcium 8.5 mg/dL (8.4-10.2) 06/01/21 11:19 Phosphorus 10.20 mg/dL (2.5-4.5) H 05/31/21 16:47 Magnesium 2.80 mg/dL (1.7-2.3) H 05/31/21 16:47 Total Bilirubin 0.60 mg/dL (0.1-1.2) 05/31/21 16:47 AST 16 units/L (5-40) 05/31/21 16:47 ALT 12 units/L (7-56) 05/31/21 16:47 Alkaline Phosphatase 416 units/L (35-129) H 05/31/21 16:47 Troponin T 0.995 ng/mL (0.00-0.029) H* 05/31/21 16:47 NT-Pro-B Natriuret Pep > 89904 pg/mL (0-450) H 05/31/21 16:47 Total Protein 8.2 g/dL (6.3-8.2) 05/31/21 16:47 Albumin 3.4 g/dL (3.9-5) L 05/31/21 16:47 Albumin/Globulin Ratio 0.7 % 05/31/21 16:47 Triglycerides 102 mg/dL (2-149) 05/31/21 16:47 Cholesterol 82 mg/dL (50-199) 05/31/21 16:47 LDL Cholesterol Direct 28 mg/dL (50-130) L 05/31/21 16:47 HDL Cholesterol 35 mg/dL (40-59) L 05/31/21 16:47 Cholesterol/HDL Ratio 2.34 % 05/31/21 16:47 TSH 9.830 mlU/mL (0.270-4.200) H 05/31/21 18:29 Hepatitis A IgM Ab Non-reactive (NonReactive) 05/31/21 20:00 Hep Bs Antigen Non-reactive (Negative) 05/31/21 20:00 Hep B Core IgM Ab Non-reactive (NonReactive) 05/31/21 20:00 Hepatitis C Antibody Non-reactive (NonReactive) 05/31/21 20:00 Blood Type O POSITIVE 06/01/21 15:41 Antibody Screen Negative 06/01/21 15:41 Crossmatch See Detail 06/01/21 15:41 Microbiology: Microbiology 05/31/21 18:38 Peripheral/Venous Blood Culture - Preliminary NO GROWTH AFTER 24 HOURS 05/31/21 18:29 Peripheral/Venous Blood Culture - Preliminary NO GROWTH AFTER 24 HOURS Eprez/IV: Voiding Method Incontinent Active Medications - Current Medications Current Medications: Generic Name Dose Route Start Last Admin Trade Name Freq PRN Reason Stop Dose Admin Acetaminophen 650 mg 05/31/21 18:43 Acetaminophen 325 Mg Tab PO Q4H PRN Pain MILD(1-3)/Fever >100.5/LANZA Albuterol 2.5 mg 05/31/21 19:19 Albuterol 2.5 Mg/3 Ml Nebu IH Q4HRT PRN Shortness Of Breath Amlodipine Besylate 10 mg 06/02/21 10:00 06/02/21 11:17 Amlodipine 10 Mg Tab PO 10 mg QDAY KESHIA Administration Aspirin 81 mg 06/01/21 13:00 06/02/21 11:17 Aspirin 81 Mg Tab Chew PO 81 mg QDAY KESHIA Administration Carvedilol 12.5 mg 06/02/21 10:00 06/02/21 11:19 Carvedilol 12.5 Mg Tab PO 12.5 mg BID KESHIA Administration Dextrose 50 ml 05/31/21 18:43 Dextrose 50% In Water (25gm) 50 Ml Syringe IV Q30MIN PRN Hypoglycemia Protocol Docusate Sodium 100 mg 06/01/21 22:00 06/02/21 11:17 Docusate Sodium 100 Mg Cap PO 100 mg BID KESHIA Administration Enoxaparin Sodium 30 mg 06/01/21 10:00 06/02/21 11:16 Enoxaparin 30 Mg/0.3 Ml Inj SUB-Q 30 mg QDAY KESHIA Administration Famotidine 10 mg 06/01/21 10:00 06/02/21 11:17 Famotidine 10 Mg Tab PO 10 mg BID KESHIA Administration Heparin Sodium (Porcine) 2,000 unit 06/01/21 10:20 Heparin 10,000 Units/10 Ml Vial IV BRENDAN PRN hemodialysis Hydralazine HCl 10 mg 06/01/21 12:01 Hydralazine 20 Mg/1 Ml Inj IV Q4HR PRN Hypertension Sodium Chloride 100 mls @ 999 mls/hr 05/31/21 17:45 Nacl 0.9% IV BRENDAN PRN Hypotension Daptomycin 500 mg/ Sodium 100 mls @ 200 mls/hr 05/31/21 22:00 06/01/21 13:08 Chloride IV 200 mls/hr Q48H KESHIA Administration Sodium Chloride 500 mls @ 0 mls/hr 06/01/21 15:21 Nacl 0.9% 500 Ml IV 06/02/21 15:20 ONCE KESHIA As Directed Insulin Human Regular 0 units 05/31/21 22:00 06/02/21 07:30 Insulin Regular, Human 100 Units/1 Ml SUB-Q Not Given [facility] Protocol Lisinopril 20 mg 05/31/21 22:00 06/02/21 00:33 Lisinopril 20 Mg Tab PO Not Given QHS KESHIA Metoclopramide HCl 2.5 mg 05/31/21 22:00 06/02/21 11:17 Metoclopramide 10 Mg Tab PO 2.5 mg ACHS KESHIA Administration Morphine Sulfate 2 mg 05/31/21 18:43 Morphine 2 Mg/1 Ml Inj IV Q4H PRN Pain, Moderate (4-6) Ondansetron HCl 4 mg 05/31/21 18:43 Ondansetron 4 Mg/2 Ml Inj IV Q8H PRN Nausea And Vomiting Oxycodone/Acetaminophen 1 tab 05/31/21 18:43 Oxycodone /Acetaminophen 5-325mg Tab PO Q6H PRN Pain, Moderate (4-6) Sertraline HCl 50 mg 06/01/21 13:00 06/02/21 11:18 Sertraline 50 Mg Tab PO 50 mg QDAY KESHIA Administration Sevelamer Carbonate 1,600 mg 06/01/21 12:30 06/02/21 11:16 Sevelamer Carbonate 800 Mg Tab PO 1,600 mg TIDWM KESHIA Administration Sodium Chloride 10 ml 05/31/21 22:00 06/02/21 11:19 Sodium Chloride 0.9% 10 Ml Flush Syringe IV 10 ml BID KESHIA Administration Sodium Chloride 10 ml 05/31/21 18:43 Sodium Chloride 0.9% 10 Ml Flush Syringe IV PRN PRN LINE FLUSH
[2021-06-03] MEDS: INSULIN REGULAR, HUMAN 100 UNITS/1 ML SUB-Q SCH ×3 (02:00→12:39)
[2021-06-03] MEDS: METOCLOPRAMIDE 10 MG TAB PO SCH ×2 (08:25→12:40)
[2021-06-03] MEDS: SEVELAMER CARBONATE 800 MG TAB PO SCH ×2 (08:25→12:40)
--- NOTE | 2021-06-03 09:06 | Consultation ---
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 Patient has missed hemodialysis for 3 weeks. Patient is not the best historian, very somnolent. O n arrival, temperature 94, HR 68, RR 18, O2 sat 100, BP 143/76. Initial WBC 3.9. Hemoglobin 7.7. Platelets 171. Creatinine 17.2. Sodium 147. Potassium 7. Troponin 0 0.09. BNP 35,000. Chest x-ray with bilateral pulmonary edema. Transthoracic echo with preserved EF, noted bioprosthetic mitral valve normal, well-seated. Blood cultures 05/31/2021 no growth today. Review of Systems: positive in bold print General: fever, chills, malaise, generalized weakness Cutaneous: rash, pruritus Head: headaches or injury Eyes: changes in vision, eye pain, double vision Ears: ear pain, ear discharge, ringing or hearing loss Nose: nose bleeding, stuffiness Mouth & throat: bleeding gums, horseness, no dental problems, or swollen glands Neck: no pain, node enlargement/lumps, tyroid enlargement or tenderness Respiratory: SOB, cough, ESTRADA, wheezing, sputum, hemoptysis, pleuritic chest pain Cardiovascular: chest pain, leg edema, cyanosis, ESTRADA, orthopnea Musculoskeletal: edema, deformities, pain Gastrointestinal: nausea, vomiting, hematemesis, diarrhea, constipation, melena, bright red blood in stools, fecal incontinence, jaundice Genitourinary/Reproductive: frequent urination, dysuria, hematuria, incontinence Neurogical: seizures, headaches, weakness, paresthesias, loss of speech or vision; memory loss, vertigo, tremors, numbness Psychiatric: stable mood; excessive anxiety, sadness or moodiness Past History Past Medical History: anemia, diabetes, dialysis, ESRD, GERD, heart failure, hypertension, hyperlipidemia, renal failure Past Surgical History: Other (Patient gives a history of heart surgery but cannot tell me why. Also surgery in his graft for hemodialysis). denies: total knee replacement Social history: single, lives with family, full code. denies: smoking, alcohol abuse Family history: diabetes, hypertension Medications and Allergies Allergies Allergy/AdvReac Type Severity Reaction Status Date / Time No Known Allergies Allergy Verified 07/20/20 15:05 Home Medications Medication Instructions Recorded Confirmed Last Taken Type Lispro Insulin [HumaLOG] 5 unit SQ AC #1 vial 04/17/20 06/01/21 09/05/20 17:00 Rx Albuterol Sulfate [Albuterol 0.63% 0.63 mg IH BID PRN #60 vial 11/03/20 06/01/21 Unknown Rx NEBS] Metoclopramide [Reglan TAB] 5 mg PO ACHS #30 tablet 12/19/20 06/01/21 Unknown Rx Epoetin Wale-Epbx 10,000 Unit 10,000 unit SUB-Q BRENDAN vial 01/12/21 06/01/21 Unkn own Rx [Retacrit] labetaloL [Labetalol 100mg TAB] 100 mg PO TID #90 tablet 01/12/21 06/01/21 Unknown Rx Acetaminophen [Acetaminophen TAB] 650 mg PO Q4H PRN tablet 02/26/21 06/01/21 Unknown Rx DAPTOmycin 500 mg IV Q48H vial 02/26/21 06/01/21 Unknown Rx Dextrose 50% in Water [D50W (25GM) 50 ml IV Q30MIN PRN syringe 02/26/21 06/01/21 Unknown Rx Syringe] Epoetin Wale-Epbx 10,000 Unit 10,000 unit SUB-Q BRENDAN vial 02/26/21 06/01/21 Unknown Rx [Retacrit] Insulin Glargine [Lantus VIAL] 12 units SUB-Q QHS units 02/26/21 06/01/21 Unknown Rx Lispro Insulin [HumaLOG] 0 unit SUB-Q ACHS units 02/26/21 06/01/21 Unknown Rx NIFEdipine XL [Procardia Xl] 60 mg PO Q12HR tablet 02/26/21 06/01/21 Unknown Rx Pantoprazole [Protonix TAB] 40 mg PO BID tablet 02/26/21 06/01/21 Unknown Rx guaiFENesin ER [Mucinex ER] 600 mg PO BID PRN tablet 02/26/21 06/01/21 Unknown Rx hydrALAZINE [Apresoline INJ] 10 mg IV Q4HR PRN vial 02/26/21 06/01/21 Unknown Rx hydrALAZINE [Apresoline TAB] 50 mg PO Q8HR tablet 02/26/21 06/01/21 Unknown Rx lisinopriL [Zestril TAB] 20 mg PO QHS tablet 02/26/21 06/01/21 Unknown Rx Active Meds: Active Medications Acetaminophen (Acetaminophen 325 Mg Tab) 650 mg PO Q4H PRN PRN Reason: Pain MILD(1-3)/Fever >100.5/LANZA Albuterol (Albuterol 2.5 Mg/3 Ml Nebu) 2.5 mg IH Q4HRT PRN PRN Reason: Shortness Of Breath Aspirin (Aspirin 81 Mg Tab Chew) 81 mg PO QDAY [facility] Last Admin: 06/02/21 11:17 Dose: 81 mg Documented by: Carvedilol (Carvedilol 12.5 Mg Tab) 12.5 mg PO BID [facility] Last Admin: 06/02/21 22:20 Dose: 12.5 mg Documented by: Dextrose (Dextrose 50% In Water (25gm) 50 Ml Syringe) 50 ml IV Q30MIN PRN; Protocol PRN Reason: Hypoglycemia Docusate Sodium (Docusate Sodium 100 Mg Cap) 100 mg PO BID [facility] Last Admin: 06/02/21 22:20 Dose: 100 mg Documented by: Enoxaparin Sodium (Enoxaparin 30 Mg/0.3 Ml Inj) 30 mg SUB-Q QDAY [facility] Last Admin: 06/02/21 11:16 Dose: 30 mg Documented by: Famotidine (Famotidine 10 Mg Tab) 10 mg PO BID [facility] Last Admin: 06/02/21 22:21 Dose: 10 mg Documented by: Heparin Sodium (Porcine) (Heparin 10,000 Units/10 Ml Vial) 2,000 unit IV BRENDAN PRN PRN Reason: hemodialysis Hydralazine HCl (Hydralazine 20 Mg/1 Ml Inj) 10 mg IV Q4HR PRN PRN Reason: Hypertension Sodium Chloride (Nacl 0.9%) 100 mls @ 999 mls/hr IV BRENDAN PRN PRN Reason: Hypotension Daptomycin 500 mg/ Sodium (Chloride) 100 mls @ 200 mls/hr IV Q48H [facility] Last Infusion: 06/03/21 01:49 Dose: Infused Documented by: Insulin Human Regular (Insulin Regular, Human 100 Units/1 Ml) 0 units SUB-Q [facility]; Protocol Last Admin: 06/03/21 08:28 Dose: Not Given Documented by: Lisinopril (Lisinopril 20 Mg Tab) 20 mg PO QHS [facility] Last Admin: 06/02/21 22:22 Dose: 20 mg Documented by: Metoclopramide HCl (Metoclopramide 10 Mg Tab) 2.5 mg PO [facility] Last Admin: 06/03/21 08:25 Dose: 2.5 mg Documented by: Morphine Sulfate (Morphine 2 Mg/1 Ml Inj) 2 mg IV Q4H PRN PRN Reason: Pain, Moderate (4-6) Ondansetron HCl (Ondansetron 4 Mg/2 Ml Inj) 4 mg IV Q8H PRN PRN Reason: Nausea And Vomiting Oxycodone/Acetaminophen (Oxycodone /Acetaminophen 5-325mg Tab) 1 tab PO Q6H PRN PRN Reason: Pain, Moderate (4-6) Sertraline HCl (Sertraline 50 Mg Tab) 50 mg PO QDAY [facility] Last Admin: 06/02/21 11:18 Dose: 50 mg Documented by: Sevelamer Carbonate (Sevelamer Carbonate 800 Mg Tab) 1,600 mg PO TIDWM [facility] Last Admin: 06/03/21 08:25 Dose: 1,600 mg Documented by: Sodium Chloride (Sodium Chloride 0.9% 10 Ml Flush Syringe) 10 ml IV BID [facility] Last Admin: 06/02/21 22:22 Dose: 10 ml Documented by: Sodium Chloride (Sodium Chloride 0.9% 10 Ml Flush Syringe) 10 ml IV PRN PRN PRN Reason: LINE FLUSH Physical Examination - Physical Exam Narrative exam: General appearance: Alert no acute distress debilitated Eyes: anicteric sclerae, moist conjunctivae; no lid-lag; PERRLA HENT: Normocephalic, Atraumatic; normal external ears, nares open, oropharynx clear Neck: supple, tracheal midline, no JVD Lungs: CTA, CV: RRR no murmur Abdomen: Soft, non-tender; no masses or hepatosplenomegaly Extremities: no edema, no cyanosis Skin: Sternal wound healing Psych: no agitated Neuro: alert and oriented x 3. Moving all extermities - Constitutional Vitals: Vital Signs Temp Pulse Resp BP Pulse Ox 94.2 F L 59 L 24 109/55 98 06/03/21 05:20 06/03/21 05:20 06/02/21 17:54 06/03/21 05:20 06/03/21 08:44 Temperature -Last 24 Hours Temperature 94.2 F Temperature 97.2 F Temperature 98.3 F Results - Labs CBC & Chem 7: 06/01/21 11:19 06/01/21 11:19 Assessment and Plan Cultures: Blood cultures 05/31/2021 no growth today. 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 Likely secondary to uncontrolled hypothyroidism. No evidence of recurrent MRSA bacteremia. #Probably uncontrolled hypothyroidism: Patient with hypothermia, bradycardia, neutropenia. TSH at 7.8. #History of recurrent MRSA bacteremia: Patient with multiple episode of MRSA bacteremia from hemodialysis catheter infections, ultimately developed MRSA mitral valve endocarditis in February 2021. Patient underwent mitral valve replacement at [place] in February 2021. Repeat blood cultures no growth. Transthoracic echo shows normal bioprosthetic mitral valve well-seated. #ESRD: On hemodialysis via AV fistula, missing hemodialysis Recommendations: -Optimize thyroid function -No need for antibiotics at this time -Monitor off antibiotics Will follow. Chloe Fitch MD Infectious Diseases [employer] [facility] ([facility] M [phone]
[2021-06-03] MEDS: DOCUSATE SODIUM 100 MG CAP PO SCH (10:56)
[2021-06-03] MEDS: carvediloL 12.5 MG TAB PO SCH (10:56)
[2021-06-03] MEDS: ENOXAPARIN 30 MG/0.3 ML INJ SUB-Q SCH (10:56)
[2021-06-03] MEDS: FAMOTIDINE 10 MG TAB PO SCH (10:56)
[2021-06-03] MEDS: ASPIRIN 81 MG TAB CHEW PO SCH (10:56)
[2021-06-03] MEDS: SERTRALINE 50 MG TAB PO SCH (10:57)
--- NOTE | 2021-06-03 11:16 | Progress Note ---
Assessment and Plan 35-year-old male history of replacement of mitral valve for endocarditis recent echocardiogram shows functioning mitral valve with normally function as per ID does not require antibiotics. Patient missed dialysis for several weeks by not going to dialysis center. Causing his fluid overload and acute diastolic dysfunction. BP control with the current measures. Patient may be discharged from cardiovascular point of view but patient is deconditioned and unmotivated to do things urged the patient to be more physically active to help with his rehabilitation prognosis is guarded. - Patient Problems (1) Non-STEMI (non-ST elevated myocardial infarction) Current Visit: Yes Status: Acute Plan to address problem: type 2 (2) Diabetes mellitus Current Visit: Yes Status: Acute (3) Diastolic CHF, acute Current Visit: Yes Status: Acute (4) ESRD (end stage renal disease) Current Visit: Yes Status: Chronic (5) Fluid overload Current Visit: Yes Status: Acute Qualifiers: Hypervolemia type: other Qualified Code(s): E87.79 - Other fluid overload (6) Hypertensive urgency Current Visit: No Status: Acute Subjective Date of service: 06/03/21 Principal diagnosis: volume overload Interval history: Shortness of breath has improved Objective Vital Signs Temp Pulse Resp BP Pulse Ox 06/03/21 08:44 98 06/03/21 05:20 94.2 F L 59 L 109/55 98 06/02/21 22:22 79 186/67 06/02/21 22:20 79 186/87 06/02/21 17:54 97.2 F L 79 24 186/87 97 - Physical Examination General: No Apparent Distress HEENT: Positive: PERRL Neck: Positive: trachea midline Cardiac: Positive: Reg Rate and Rhythm Lungs: Positive: clear to auscultation Neuro: Positive: Grossly Intact Abdomen: Positive: Soft, Active Bowel Sounds Skin: Negative: Rash, Suspicious Lesions Extremities: Present: upper extr. pulses, lower extr. pulses. Absent: edema - Imaging and Cardiology EKG: report reviewed, image reviewed Echo: report reviewed (Normal LV function with functioning mitral valve bio prosthetic valve) - Telemetry EKG Rhythm: Sinus Rhythm - EKG Sinus rhythms and dysrhythmias: sinus rhythm
--- NOTE | 2021-06-03 11:20 | Progress Note ---
Assessment and Plan 1. ESRD: Patient presented after he missed three weeks of hemodialysis. Meds dosage based on GFR. Hemodialysis: 05/31, 06/01, 06/03. 2. FEN: Hyperkalemia, improved with urgent HD 05/31. Volume overload, UF with HD as tolerated. Monitor lytes and volume status. 3. Anemia, POA: 2/2 ESRD. Epogen with HD as needed. 4. S/p MV replacement. 5. H/o MRSA bacteremia: Patient seen by ID. 6. NSTEMI type 2: Followed by Cards. 7. HFrEF: Volume control with HD. 8. DM. 9. Hypertension: Volume control. Adjust meds as needed. Monitor. Subjective: Patient was seen and examined at the bedside. General Appearance: General appearance: well-developed, appears stated age, not in distress, appears chronically ill HEENT: ATNC, pupils equal Neck: trachea midline Respiratory: ctab Heart: regular, S1S2, no murmur Abdomen: soft, bowel sounds heard, distended, not tender Integumentary: no rash, warm and dry Neurologic: AO, able to move extremities Ext: no edema, amputation of R great toe Hemodialysis access: R arm AVF Subjective Date of service: 06/03/21 Principal diagnosis: volume overload Objective - Vital Signs Vital signs: Vital Signs - 12hr 06/03/21 06/03/21 05:20 08:44 Temperature 94.2 F L Pulse Rate 59 L Blood Pressure 109/55 O2 Sat by Pulse 98 98 Oximetry - Lab 06/01/21 11:19 06/01/21 11:19 Most recent lab results Calcium 8.5 mg/dL (8.4-10.2) 06/01/21 11:19 Phosphorus 10.20 mg/dL (2.5-4.5) H 05/31/21 16:47 Magnesium 2.80 mg/dL (1.7-2.3) H 05/31/21 16:47 Medications & Allergies - Medications Allergies/Adverse Reactions: Allergies No Known Allergies Allergy (Verified 07/20/20 15:05) Home Medications: Home Medications Medication Instructions Recorded Confirmed Last Taken Type Albuterol Sulfate [Albuterol 0.63% 0.63 mg IH BID PRN #60 vial 11/03/20 06/01/21 Unknown Rx NEBS] Metoclopramide [Reglan TAB] 5 mg PO ACHS #30 tablet 12/19/20 06/01/21 Unknown Rx Epoetin Wale-Epbx 10,000 Unit 10,000 unit SUB-Q BRENDAN vial 01/12/21 06/01/21 Unknown Rx [Retacrit] Acetaminophen [Acetaminophen TAB] 650 mg PO Q4H PRN tablet 02/26/21 06/01/21 Un known Rx Insulin Glargine [Lantus VIAL] 12 units SUB-Q QHS units 02/26/21 06/01/21 Unknown Rx Lispro Insulin [HumaLOG] 0 unit SUB-Q ACHS units 02/26/21 06/01/21 Unknown Rx guaiFENesin ER [Mucinex ER] 600 mg PO BID PRN tablet 02/26/21 06/01/21 Unknown Rx lisinopriL [Zestril TAB] 20 mg PO QHS tablet 02/26/21 06/01/21 Unknown Rx Aspirin [Aspirin BABY CHEW TAB] 81 mg PO QDAY #30 tab.chew 06/03/21 Unknown Rx Docusate Sodium [Colace CAP] 100 mg PO BID #30 capsule 06/03/21 Unknown Rx Famotidine [Pepcid] 10 mg PO BID #60 tablet 06/03/21 Unknown Rx Sertraline [Zoloft] 50 mg PO QDAY #30 tablet 06/03/21 Unknown Rx Sevelamer Carbonate [Renvela] 1,600 mg PO TIDWM #90 tablet 06/03/21 Unknown Rx carvediloL [Coreg] 12.5 mg PO BID #60 tablet 06/03/21 Unknown Rx oxyCODONE /ACETAMINOPHEN [Percocet 1 tab PO Q6H PRN #10 tablet 06/03/21 Unknown Rx 5/325 mg] Active Medications: Generic Name Dose Route Start Last Admin Trade Name Freq PRN Reason Stop Dose Admin Acetaminophen 650 mg 05/31/21 18:43 Acetaminophen 325 Mg Tab PO Q4H PRN Pain MILD(1-3)/Fever >100.5/LANZA Albuterol 2.5 mg 05/31/21 19:19 Albuterol 2.5 Mg/3 Ml Nebu IH Q4HRT PRN Shortness Of Breath Aspirin 81 mg 06/01/21 13:00 06/03/21 10:56 Aspirin 81 Mg Tab Chew PO Not Given QDAY KESHIA Carvedilol 12.5 mg 06/02/21 10:00 06/03/21 10:56 Carvedilol 12.5 Mg Tab PO Not Given BID COUNTS INCLUDE 234 BEDS AT THE [facility] Dextrose 50 ml 05/31/21 18:43 Dextrose 50% In Water (25gm) 50 Ml Syringe IV Q30MIN PRN Hypoglycemia Protocol Docusate Sodium 100 mg 06/01/21 22:00 06/03/21 10:56 Docusate Sodium 100 Mg Cap PO Not Given BID COUNTS INCLUDE 234 BEDS AT THE [facility] Enoxaparin Sodium 30 mg 06/01/21 10:00 06/03/21 10:56 Enoxaparin 30 Mg/0.3 Ml Inj SUB-Q Not Given QDAY COUNTS INCLUDE 234 BEDS AT THE [facility] Famotidine 10 mg 06/01/21 10:00 06/03/21 10:56 Famotidine 10 Mg Tab PO Not Given BID COUNTS INCLUDE 234 BEDS AT THE [facility] Heparin Sodium (Porcine) 2,000 unit 06/01/21 10:20 Heparin 10,000 Units/10 Ml Vial IV BRENDAN PRN hemodialysis Hydralazine HCl 10 mg 06/01/21 12:01 Hydralazine 20 Mg/1 Ml Inj IV Q4HR PRN Hypertension Sodium Chloride 100 mls @ 999 mls/hr 05/31/21 17:45 Nacl 0.9% IV BRENDAN PRN Hypotension Insulin Human Regular 0 units 05/31/21 22:00 06/03/21 08:28 Insulin Regular, Human 100 Units/1 Ml SUB-Q Not Given ACHS COUNTS INCLUDE 234 BEDS AT THE [facility] Protocol Lisinopril 20 mg 05/31/21 22:00 06/02/21 22:22 Lisinopril 20 Mg Tab PO 20 mg QHS COUNTS INCLUDE 234 BEDS AT THE [facility] Administration Metoclopramide HCl 2.5 mg 05/31/21 22:00 06/03/21 08:25 Metoclopramide 10 Mg Tab PO 2.5 mg ACHS COUNTS INCLUDE 234 BEDS AT THE [facility] Administration Morphine Sulfate 2 mg 05/31/21 18:43 Morphine 2 Mg/1 Ml Inj IV Q4H PRN Pain, Moderate (4-6) Ondansetron HCl 4 mg 05/31/21 18:43 06/03/21 10:30 Ondansetron 4 Mg/2 Ml Inj IV 4 mg Q8H PRN Administration Nausea And Vomiting Oxycodone/Acetaminophen 1 tab 05/31/21 18:43 Oxycodone /Acetaminophen 5-325mg Tab PO Q6H PRN Pain, Moderate (4-6) Sertraline HCl 50 mg 06/01/21 13:00 06/03/21 10:57 Sertraline 50 Mg Tab PO Not Given QDAY KESHIA Sevelamer Carbonate 1,600 mg 06/01/21 12:30 06/03/21 08:25 Sevelamer Carbonate 800 Mg Tab PO 1,600 mg TIDWM KESHIA Administration Sodium Chloride 10 ml 05/31/21 22:00 06/03/21 11:00 Sodium Chloride 0.9% 10 Ml Flush Syringe IV Not Given BID KESHIA Sodium Chloride 10 ml 05/31/21 18:43 Sodium Chloride 0.9% 10 Ml Flush Syringe IV PRN PRN LINE FLUSH
--- NOTE | 2021-06-03 11:23 | Discharge Summary ---
Providers - Providers Date of Admission: 05/31/21 18:43 Attending physician: BERNARDINO PHAN MD 05/31/21 17:08 Consult to Physician [CONS] Urgent Comment: Consulting Provider: HELENA TATE Physician Instructions: Reason For Exam: esrd 06/01/21 09:35 Consult to Physician [CONS] Routine Comment: Consulting Provider: ADLABERTO OLSON Physician Instructions: Reason For Exam: CONGESTIVE HEART FAILURE RECENT PROCEDURE 06/01/21 09:46 Consult to Physician [CONS] Routine Comment: Consulting Provider: KAMILLE MOTTA Physician Instructions: Reason For Exam: ABX MANAGEMENT FOR RECENT ENDOCARDITIS 06/02/21 12:46 Occupational Therapy Evaluate and Treat [CONS] Routine Comment: Reason For Exam: Debility Physical Therapy Evaluation and Treat [CONS] Routine Comment: Reason For Exam: Debility Primary care physician: LEAN SIX SIGMA BLACK BELT Hospitalization Reason for admission: Shortness of breath Condition: Stable Hospital course: Patient 35-year-old male with a history of end-stage renal disease, diabetes, hypertension, 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 Was receiving vancomycin and cefepime at hemodialysis at some point. Patient has missed dialysis for 3 weeks and presents with generalized malaise associated with increased abdominal girth and lower extremity edema. Patient at present poor historian secondary to somnolence consistent with metabolic encephalopathy. Will wake up and he is alert but will go back to sleep and mumble. Patient stated fluid built up over the last several days of not receiving hemodialysis. Gives no reason for not going. After review of patient's past visits to the hospital he has been here 6 times this year alone and is notorious for noncompliance. cxr: CHF 06/01: Patient with multiple medical conditions. Currently had dialysis yesterday awaiting results to ensure resolution of hyperkalemia. Extensive counseling provided to the patient about his noncompliance. I have also taken the liberty to consult cardiology and also infectious disease I am not sure if the valve surgery was full treatment and if patient completed antibiotics. I will defer to the team will also request records from [place]. I will also obtain a BiPAP to the bedside. Continue to monitor oxygen management as patient has underlying acute hypoxic respiratory failure states that he is on 5 l of oxygen at home. If no improvement will probably need a pulmonary consultation in addition. Condition at this time remains guarded 15 minutes of counseling provided along with case management and the patient's nurse at bedside 06/02: Continue supportive care, patient underwent HD today. No further growth noted on MV. Await further evaluation by ID. Continue to hold lisinopril in setting of JERED on CKD. Considering missed multiple dialysis will continue to need inpatient stay for HD. Will need PT OT evaluation still with exertional dyspnea. 06/03: Patient continues to show some improvement. Although still very noncompliant and today wanted to avoid dialysis because he does not eat. 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 He is otherwise clinically stable for discharge no further need of antibiotics at this time. (1) Accelerated hypertension Status: Acute Plan to address problem: Patient with accelerated hypertension. Requiring hemodialysis will restart antihypertensives labetalol at this time. Would not be too aggressive with blood pressure because of high suspicion for underlying sepsis and septic shock. Patient hypothermic hypotensive upon admission. (2) Acute hyperkalemia Status: Acute Plan to address problem: Secondary to missed dialysis and acute on chronic end-stage renal disease. Will place patient insulin, glucose, Kayexalate. Hyperkalemia cocktail, serial chemistries (3) Acute on chronic renal insufficiency Status: Acute Plan to address problem: Acute on chronic renal sufficiency secondary to missed dialysis and noncompliance. Nephrology has been contacted for emergent hemodialysis. Follow electrolytes and correct accordingly. Stress compliance. (4) Bacteremia due to Staphylococcus aureus Status: Acute Plan to address problem: Patient clearly has a picture of sepsis as well. Patient is hypothermic, hypotensive and is receiving vancomycin and cefepime at hemodialysis. If patient has missed the last 3 weeks of dialysis patient has not been receiving antibiotics. Last source was ineffective endocarditis which I suspect was suboptimally treated secondary to noncompliance as well. Will obtain follow-up blood cultures and reinitiate vancomycin and cefepime (5) Diabetes mellitus Status: Acute Plan to address problem: Patient is encephalopathic currently not hypoglycemic will cover with sliding scale only for now. Reintroduce previous insulin or hypoglycemic regime when patient more stable and eating better. For now sliding scale only. (6) ESRD (end stage renal disease) on dialysis Status: Acute Plan to address problem: Hemodialysis as per nephrology. Patient will require emergent hemodialysis now. Severe hyperkalemia and encephalopathy with volume overload. (7) Elevated troponin Status: Acute Plan to address problem: Type II non-STEMI. No EKG changes consistent with STEMI. (8) Fluid overload Status: Acute Qualifiers: Hypervolemia type: other Qualified Code(s): E87.79 - Other fluid overload Plan to address problem: Secondary to missed hemodialysis and renal failure. Will need to follow-up for evidence of congestive heart failure and ejection fraction as well. Patient has been here multiple times in the past 2 years. Work-up most likely has been completed. (9) acute hypoxic respiratory failure Status: Acute (10) Gram-negative bacteremia Status: Acute Plan to address problem: Cardiac vegetations. Treat vancomycin and cefepime. (11) recent infectious endocarditis- Recent Valve surgery (12) Metabolic encephalopathy Status: Acute Plan to address problem: Multifactorial sepsis along with uremia as clear sources for metabolic encephalopathy. Correct underlying etiology. Blood cultures antibiotics and emergent hemodialysis. (13) NSTEMI (non-ST elevated myocardial infarction) Status: Acute (14) Nausea & vomiting Status: Acute Qualifiers: Vomiting type: unspecified Vomiting Intractability: non-intractable Qualified Code(s): R11.2 - Nausea with vomiting, unspecified Plan to address problem: Zofran as needed secondary to uremia. (15) Sepsis Status: Acute Qualifiers: Sepsis type: methicillin resistant Staphylococcus aureus (16) IDDM (insulin dependent diabetes mellitus) Status: Chronic (17) Medical non-compliance Status: Chronic Plan to address problem: Patient is encephalopathic however did stress compliance. Will probably require additional education prior to discharge. Disposition: [id number] HOME UNDER HOME [facility] Final Discharge Diagnosis (Prints w/discharge instructions): acute metabolic acidosis with acute hypoxic respiratory failure Time spent for discharge: 35 mins Core Measure Documentation - Palliative Care Palliative Care/ Comfort Measures: Not Applicable - Core Measures Any of the following diagnoses?: none Exam - Physical Exam Narrative exam: VITAL SIGNS: Reviewed. GENERAL: The patient appears normally developed, vital signs as documented. HEAD: No signs of head trauma. EYES: Pupils are equal. Extraocular motions intact. EARS: Hearing grossly intact. MOUTH: Oropharynx is normal. NECK: No adenopathy, no JVD. CHEST: Chest with diminished breath sounds bilaterally. Shallow breath no wheezes, rales, or rhonchi. CARDIAC: Regular rate and rhythm. S1 and S2, without murmurs, gallops, or rubs. VASCULAR: No Edema. Peripheral pulses normal and equal in all extremities. ABDOMEN: Soft, non tender and non distended. No rebound or guarding, and no masses palpated. Bowel Sounds normal. MUSCULOSKELETAL: Well-healed surgical line in the mid sternum area good range of motion of all major joints. Extremities without clubbing, cyanosis or edema. NEUROLOGIC EXAM: Awake but lethargic and oriented x 3 No focal sensory or strength deficits. Speech normal. Follows commands. PSYCHIATRIC: Mood normal. SKIN: detail exam as documented in skin assessment - Constitutional Vitals: Temp Pulse Resp BP Pulse Ox 94.2 F L 59 L 24 109/55 98 06/03/21 05:20 06/03/21 05:20 06/02/21 17:54 06/03/21 05:20 06/03/21 08:44 Plan Activity: advance as tolerated, fall precautions Diet: low salt, diabetic, renal Special Instructions: restrict fluid intake to (1000cc/day), record daily weights, record daily BP diary, record blood sugar diary, physical therapy, occupational therapy Follow up with: PRIMARY CARE, [Primary Care Provider] - 7 Days HELENA TATE MD [Staff Physician] - 7 Days ADALBERTO OLSON MD [Staff Physician] - 7 Days Prescriptions: Aspirin [Aspirin BABY CHEW TAB] 81 mg PO QDAY #30 tab.chew Docusate Sodium [Colace CAP] 100 mg PO BID #30 capsule carvediloL [Coreg] 12.5 mg PO BID #60 tablet Famotidine [Pepcid] 10 mg PO BID #60 tablet oxyCODONE /ACETAMINOPHEN [Percocet 5/325 mg] 1 tab PO Q6H PRN #10 tablet PRN Reason: Pain, Moderate (4-6) Sevelamer Carbonate [Renvela] 1,600 mg PO TIDWM #90 tablet Sertraline [Zoloft] 50 mg PO QDAY #30 tablet
[2021-06-03 16:46] VITALS: BP 119/69
== END 2021-06-03 17:16 | disposition home or self-care (01) | DRG 871 ==
LOC: ED 13:45 → 4A 18:43 → 3A 20:44
PROVIDERS: ADMIT Internal Medicine; ATTEND Internal Medicine
PROC: 5A1D70Z Performance of Urinary Filtration, Intermittent, Less than 6 Hours Per Day (ICD-10-PCS; 2021-05-31)
PROC: 5A09357 Assistance with Respiratory Ventilation, Less than 24 Consecutive Hours, Continuous Positive Airway Pressure (ICD-10-PCS; principal; 2021-06-01)
PROC: 5A1D70Z Performance of Urinary Filtration, Intermittent, Less than 6 Hours Per Day (ICD-10-PCS; 2021-06-01)
PROC: 5A1D70Z Performance of Urinary Filtration, Intermittent, Less than 6 Hours Per Day (ICD-10-PCS; 2021-06-03)
DX: A41.89 Other specified sepsis (principal); N18.6 End stage renal disease; G93.41 Metabolic encephalopathy; I21.A1 Myocardial infarction type 2; I50.23 Acute on chronic systolic (congestive) heart failure; I13.2 Hypertensive heart and chronic kidney disease with heart failure and with stage 5 chronic kidney disease, or end stage renal disease; Z21 Asymptomatic human immunodeficiency virus [HIV] infection status; E87.5 Hyperkalemia; E10.22 Type 1 diabetes mellitus with diabetic chronic kidney disease; E87.70 Fluid overload, unspecified; I16.0 Hypertensive urgency; K21.9 Gastro-esophageal reflux disease without esophagitis; J45.909 Unspecified asthma, uncomplicated; J44.9 Chronic obstructive pulmonary disease, unspecified; D63.8 Anemia in other chronic diseases classified elsewhere; T68.XXXA Hypothermia, initial encounter; M13.812 Other specified arthritis, left shoulder; M13.811 Other specified arthritis, right shoulder; Z90.49 Acquired absence of other specified parts of digestive tract; Z79.899 Other long term (current) drug therapy; Z99.2 Dependence on renal dialysis; Z79.891 Long term (current) use of opiate analgesic; Z79.4 Long term (current) use of insulin; Z91.19 Patient's noncompliance with other medical treatment and regimen; Z83.3 Family history of diabetes mellitus; Z82.49 Family history of ischemic heart disease and other diseases of the circulatory system
CPT/HCPCS: 36415; 71045; 80048; 80053; 80061; 80074; 82140; 82962; 83735; 83880; 84100; 84443; 84484; 85007; 85025; 85610; 85730; 86850; 86900; 86901; 86920; 87040; 93005; 93306; 94660; 96374; G0378; J0610; J0878; J0885; J1650; J2270; J2405; P9016

== ENCOUNTER 2022-07-25 17:55 | Emergency (ER) | payer MEDICARE, MEDICAID ==
[2022-07-25] MEDS ORDERED: ONDANSETRON 4 MG ODT TAB PO ONE (23:01)
[2022-07-26] MEDS ORDERED: METOCLOPRAMIDE 10 MG/2 ML INJ IV ONE (00:35)
[2022-07-26] MEDS ORDERED: diphenhydrAMINE 50 MG/ML VIAL IV STA (00:37)
[2022-07-26] MEDS ORDERED: METOCLOPRAMIDE 10 MG TAB PO ONE (01:06)
[2022-07-26] MEDS ORDERED: HYOSCYAMINE SUBL 0.125 MG TAB SL ONE (03:49)
[2022-07-26] MEDS ORDERED: oxyCODONE /ACETAMINOPHEN 5-325MG TAB PO STA (03:49)
[2022-07-26 04:16] VITALS: BP 112/89
== END 2022-07-26 04:16 | disposition left against medical advice (07) ==
LOC: ED 17:55
DX: R10.9 Unspecified abdominal pain (principal); Z53.21 Procedure and treatment not carried out due to patient leaving prior to being seen by health care provider
CPT/HCPCS: J3490; Q0162

== ENCOUNTER 2022-07-27 13:47 | Inpatient (IN) | payer MEDICARE ==
[2022-07-27] MEDS ORDERED: MORPHINE 4 MG/1 ML INJ IM ONE (15:32)
[2022-07-27] MEDS ORDERED: ONDANSETRON 4 MG/2 ML INJ IM ONE (15:32)
[2022-07-27] MEDS ORDERED: FAMOTIDINE 20 MG/2 ML INJ IV ONE (15:34)
--- NOTE | 2022-07-27 15:35 | Emergency Department Report ---
ED Abdominal Pain HPI - General Chief Complaint: Abdominal Pain Stated Complaint: ABD PAIN Time Seen by Provider: 07/27/22 15:22 Source: patient, EMS Mode of arrival: Stretcher Limitations: No Limitations - History of Present Illness Severity scale (0 -10): 9 - Related Data Previous Rx's Medication Instructions Recorded Last Taken Type Albuterol Sulfate [Albuterol 0.63% 0.63 mg IH BID PRN #60 vial 11/03/20 Unknown Rx NEBS] Metoclopramide [Reglan TAB] 5 mg PO ACHS #30 tablet 12/19/20 Unknown Rx Epoetin Wale-Epbx 10,000 Unit 10,000 unit SUB-Q BRENDAN vial 01/12/21 Unknown Rx [Retacrit] Acetaminophen [Acetaminophen TAB] 650 mg PO Q4H PRN tablet 02/26/21 Unknown Rx Insulin Glargine [Lantus VIAL] 12 units SUB-Q QHS units 02/26/21 Unknown Rx Lispro Insulin [HumaLOG] 0 unit SUB-Q ACHS units 02/26/21 Unknown Rx guaiFENesin ER [Mucinex ER] 600 mg PO BID PRN tablet 02/26/21 Unknown Rx lisinopriL [Zestril TAB] 20 mg PO QHS tablet 02/26/21 Unknown Rx Aspirin [Aspirin BABY CHEW TAB] 81 mg PO QDAY #30 tab.chew 06/03/21 Unknown Rx Docusate Sodium [Colace CAP] 100 mg PO BID #30 capsule 06/03/21 Unknown Rx Famotidine [Pepcid] 10 mg PO BID #60 tablet 06/03/21 Unknown Rx Sertraline [Zoloft] 50 mg PO QDAY #30 tablet 06/03/21 Unknown Rx Sevelamer Carbonate [Renvela] 1,600 mg PO TIDWM #90 tablet 06/03/21 Unknown Rx carvediloL [Coreg] 12.5 mg PO BID #60 tablet 06/03/21 Unknown Rx oxyCODONE /ACETAMINOPHEN [Percocet 1 tab PO Q6H PRN #10 tablet 06/03/21 Unknown Rx 5/325 mg] Allergies Allergy/AdvReac Type Severity Reaction Status Date / Time hydromorphone [From Dilaudid] AdvReac Unknown Verified 07/25/22 18:14 ED Review of Systems ROS: Stated complaint: ABD PAIN Other details as noted in HPI ED Past Medical Hx - Past Medical History Hx Hypertension: Yes Hx Heart Attack/AMI: Yes (NSTEMI) Hx Congestive Heart Failure: Yes Hx Diabetes: Yes (TYPE 2) Hx Deep Vein Thrombosis: No Hx Pulmonary Embolism: No Hx GERD: Yes Hx Liver Disease: No Hx Renal Disease: Yes Hx Sickle Cell Disease: No Hx Arthritis: Yes (BINTA HANDS) Hx Headaches / Migraines: No Hx Seizures: No Hx Kidney Stones: No Hx Asthma: Yes Hx COPD: Yes Hx Tuberculosis: No Hx HIV: No Additional medical history: Ulcerative esophagitis, Gastroparesis HD MWF - Surgical History Hx Coronary Stent: No Hx Pacemaker: No Hx Internal Defibrillator: No Hx Cholecystectomy: Yes Hx Appendectomy: Yes Additional Surgical History: right great toe removed, Right chest PERMA-CATH - Social History Smoking Status: Never Smoker - Medications Home Medications: Home Medications Medication Instructions Recorded Confirmed Last Taken Type Albuterol Sulfate [Albuterol 0.63% 0.63 mg IH BID PRN #60 vial 11/03/20 06/01/21 Unknown Rx NEBS] Metoclopramide [Reglan TAB] 5 mg PO ACHS #30 tablet 12/19/20 06/01/21 Unknown Rx Epoetin Wale-Epbx 10,000 Unit 10,000 unit SUB-Q BRENDAN vial 01/12/21 06/01/21 Unknown Rx [Retacrit] Acetaminophen [Acetaminophen TAB] 650 mg PO Q4H PRN tablet 02/26/21 06/01/21 Unknown Rx Insulin Glargine [Lantus VIAL] 12 units SUB-Q QHS units 02/26/21 06/01/21 Unknown Rx Lispro Insulin [HumaLOG] 0 unit SUB-Q ACHS units 02/26/21 06/01/21 Unknown Rx guaiFENesin ER [Mucinex ER] 600 mg PO BID PRN tablet 02/26/21 06/01/21 Unknown Rx lisinopriL [Zestril TAB] 20 mg PO QHS tablet 02/26/21 06/01/21 Unknown Rx Aspirin [Aspirin BABY CHEW TAB] 81 mg PO QDAY #30 tab.chew 06/03/21 Unknown Rx Docusate Sodium [Colace CAP] 100 mg PO BID #30 capsule 06/03/21 Unknown Rx Famotidine [Pepcid] 10 mg PO BID #60 tablet 06/03/21 Unknown Rx Sertraline [Zoloft] 50 mg PO QDAY #30 tablet 06/03/21 Unknown Rx Sevelamer Carbonate [Renvela] 1,600 mg PO TIDWM #90 tablet 06/03/21 Unknown Rx carvediloL [Coreg] 12.5 mg PO BID #60 tablet 06/03/21 Unknown Rx oxyCODONE /ACETAMINOPHEN [Percocet 1 tab PO Q6H PRN #10 tablet 06/03/21 Unknown Rx 5/325 mg] ED Physical Exam - General Limitations: No Limitations ED Course Vital Signs 07/27/22 13:51 Temperature 98 F Pulse Rate 97 H Respiratory 18 Rate Blood Pressure 143/100 [Left] O2 Sat by Pulse 100 Oximetry Critical care attestation.: If time is entered above; I have spent that time in minutes in the direct care of this critically ill patient, excluding procedure time. ED Disposition Condition: Stable
--- NOTE | 2022-07-27 15:37 | Emergency Department Report ---
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 The patient complains of intermittent 9/10 aching lower abdominal pain that spreads to his entire abdomen. Pain is worse with palpation. No alleviating factors reported. Vomiting with p.o. intolerance reported. Patient denies fever, diarrhea, or dysuria. Patient has very minimal urine output at baseline. He receives dialysis Saturday, Saturday, and Saturday and has missed his last 2 sessions. His children's service supervisor is Dr. Trimble affiliated with [place]. Patient has had previous appendectomy but denies previous cholecystectomy contrary to what is listed on past medical history Severity scale (0 -10): 9 - Related Data Previous Rx's Medication Instructions Recorded Last Taken Type Albuterol Sulfate [Albuterol 0.63% 0.63 mg IH BID PRN #60 vial 11/03/20 Unknown Rx NEBS] Metoclopramide [Reglan TAB] 5 mg PO ACHS #30 tablet 12/19/20 Unknown Rx Epoetin Wale-Epbx 10,000 Unit 10,000 unit SUB-Q BRENDAN vial 01/12/21 Unknown Rx [Retacrit] Acetaminophen [Acetaminophen TAB] 650 mg PO Q4H PRN tablet 02/26/21 Unknown Rx Insulin Glargine [Lantus VIAL] 12 units SUB-Q QHS units 02/26/21 Unknown Rx Lispro Insulin [HumaLOG] 0 unit SUB-Q ACHS units 02/26/21 Unknown Rx guaiFENesin ER [Mucinex ER] 600 mg PO BID PRN tablet 02/26/21 Unknown Rx lisinopriL [Zestril TAB] 20 mg PO QHS tablet 02/26/21 Unknown Rx Aspirin [Aspirin BABY CHEW TAB] 81 mg PO QDAY #30 tab.chew 06/03/21 Unknown Rx Docusate Sodium [Colace CAP] 100 mg PO BID #30 capsule 06/03/21 Unknown Rx Famotidine [Pepcid] 10 mg PO BID #60 tablet 06/03/21 Unknown Rx Sertraline [Zoloft] 50 mg PO QDAY #30 tablet 06/03/21 Unknown Rx Sevelamer Carbonate [Renvela] 1,600 mg PO TIDWM #90 tablet 06/03/21 Unknown Rx carvediloL [Coreg] 12.5 mg PO BID #60 tablet 06/03/21 Unknown Rx oxyCODONE /ACETAMINOPHEN [Percocet 1 tab PO Q6H PRN #10 tablet 06/03/21 Unknown Rx 5/325 mg] Allergies Allergy/AdvReac Type Severity Reaction Status Date / Time hydromorphone [From Dilaudid] AdvReac Unknown Verified 07/25/22 18:14 ED Review of Systems ROS: Stated complaint: ABD PAIN Other details as noted in HPI ED Past Medical Hx - Past Medical History Hx Hypertension: Yes Hx Heart Attack/AMI: Yes (NSTEMI) Hx Congestive Heart Failure: Yes Hx Diabetes: Yes (TYPE 2) Hx Deep Vein Thrombosis: No Hx Pulmonary Embolism: Yes (July 2022) Hx GERD: Yes Hx Liver Disease: No Hx Renal Disease: Yes Hx Sickle Cell Disease: No Hx Arthritis: Yes (BINTA HANDS) Hx Headaches / Migraines: No Hx Seizures: No Hx Kidney Stones: No Hx Asthma: Yes Hx COPD: Yes Hx Tuberculosis: No Hx HIV: No Additional medical history: Ulcerative esophagitis, Gastroparesis HD MWF - Surgical History Hx Coronary Stent: No Hx Pacemaker: No Hx Internal Defibrillator: No Hx Cholecystectomy: Yes Hx Appendectomy: Yes Additional Surgical History: right great toe removed, Right chest PERMA-CATH - Social History Smoking Status: Never Smoker - Medications Home Medications: Home Medications Medication Instructions Recorded Confirmed Last Taken Type Albuterol Sulfate [Albuterol 0.63% 0.63 mg IH BID PRN #60 vial 11/03/20 06/01/21 Unknown Rx NEBS] Metoclopramide [Reglan TAB] 5 mg PO ACHS #30 tablet 12/19/20 06/01/21 Unknown Rx Epoetin Wale-Epbx 10,000 Unit 10,000 unit SUB-Q BRENDAN vial 01/12/21 06/01/21 Unknown Rx [Retacrit] Acetaminophen [Acetaminophen TAB] 650 mg PO Q4H PRN tablet 02/26/21 06/01/21 Unknown Rx Insulin Glargine [Lantus VIAL] 12 units SUB-Q QHS units 02/26/21 06/01/21 Unknown Rx Lispro Insulin [HumaLOG] 0 unit SUB-Q ACHS units 02/26/21 06/01/21 Unknown Rx guaiFENesin ER [Mucinex ER] 600 mg PO BID PRN tablet 02/26/21 06/01/21 Unknown Rx lisinopriL [Zestril TAB] 20 mg PO QHS tablet 02/26/21 06/01/21 Unknown Rx Aspirin [Aspirin BABY CHEW TAB] 81 mg PO QDAY #30 tab.chew 06/03/21 Unknown Rx Docusate Sodium [Colace CAP] 100 mg PO BID #30 capsule 06/03/21 Unknown Rx Famotidine [Pepcid] 10 mg PO BID #60 tablet 06/03/21 Unknown Rx Sertraline [Zoloft] 50 mg PO QDAY #30 tablet 06/03/21 Unknown Rx Sevelamer Carbonate [Renvela] 1,600 mg PO TIDWM #90 tablet 06/03/21 Unknown Rx carvediloL [Coreg] 12.5 mg PO BID #60 tablet 06/03/21 Unknown Rx oxyCODONE /ACETAMINOPHEN [Percocet 1 tab PO Q6H PRN #10 tablet 06/03/21 Unknown Rx 5/325 mg] ED Physical Exam - General Limitations: No Limitations - Other Other exam information: General: No acute distress Head: Atraumatic Eyes: normal appearance ENT: Moist mucous membranes Neck: Normal appearance, no midline tenderness Chest: Clear to auscultation bilaterally CV: Mild tachycardia regular rhythm, right upper arm dialysis access positive thrill Abdomen: Soft, normal bowel sounds, generalized abdominal tenderness, no rebound or guarding, active vomiting Back: Normal inspection Extremity: Normal inspection, full range of motion Neuro: Alert O x 3, no facial asymmetry, speech clear, no gross motor sensory deficit Psych: Appropriate behavior Skin: No rash ED Course Vital Signs 07/27/22 07/27/22 07/27/22 13:51 17:05 18:01 Temperature 98 F Pulse Rate 97 H 94 H 91 H Respiratory 18 11 L 14 Rate Blood Pressure 139/102 130/97 Blood Pressure 143/100 [Left] O2 Sat by Pulse 100 100 100 Oximetry 07/27/22 07/27/22 07/27/22 19:00 19:01 20:01 Temperature 98 F Pulse Rate 98 H 90 89 Respiratory 90 H 10 L 10 L Rate Blood Pressure 113/74 99/63 Blood Pressure 113/74 [Left] O2 Sat by Pulse 100 100 100 Oximetry 07/27/22 21:01 Temperature Pulse Rate 90 Respiratory 19 Rate Blood Pressure 126/89 Blood Pressure [Left] O2 Sat by Pulse 100 Oximetry - Consultations Consultation #1: 07/27/22 16:53 Discussed with children's service supervisor Dr. Elmore, S who will manage dialysis needs with plan to perform dialysis tomorrow. 07/27/22 19:00 case d/w DR Jonathan PRESTON, rec levaquin and flagy, consult ordered 07/27/22 19:05 case d/w DR Solorzano, pulmonology. Will consult regarding abnormal findings in the chest on CT 07/27/22 19:21 - EJ/Peripheral Line Neck R Time Out Performed: Yes Indications: nurses unable to establis Skin Cleansed in Sterile Fashion: Yes Size: 20 Dressing Placed: Tegaderm, tape Patient Tolerated Procedure: well, no complications Additional Comments: US guided IV line previous placed by IV nurse has infiltrated ED Medical Decision Making - Lab Data Result diagrams: 07/27/22 16:14 07/27/22 16:14 Lab Results 07/27/22 07/27/22 07/27/22 Range/Units 16:14 16:14 16:14 WBC 5.1 (4.5-11.0) K/mm3 RBC 3.71 (3.65-5.03) M/mm3 Hgb 10.6 L (11.8-15.2) gm/dl Hct 33.9 L (35.5-45.6) % MCV 92 (84-94) fl MCH 29 (28-32) pg MCHC 31 L (32-34) % RDW 17.7 H (13.2-15.2) % Plt Count 259 (140-440) K/mm3 Lymph % (Auto) 21.0 (13.4-35.0) % Scott % (Auto) 7.2 (0.0-7.3) % Eos % (Auto) 0.2 (0.0-4.3) % Baso % (Auto) 1.0 (0.0-1.8) % Lymph # (Auto) 1.1 L (1.2-5.4) K/mm3 Scott # (Auto) 0.4 (0.0-0.8) K/mm3 Eos # (Auto) 0.0 (0.0-0.4) K/mm3 Baso # (Auto) 0.1 (0.0-0.1) K/mm3 Seg Neutrophils % 70.6 H (40.0-70.0) % Seg Neutrophils # 3.6 (1.8-7.7) K/mm3 Sodium 139 (137-145) mmol/L Potassium 4.4 (3.6-5.0) mmol/L Chloride 91.0 L (98-107) mmol/L Carbon Dioxide 25 (22-30) mmol/L Anion Gap 27 mmol/L BUN 84 H (9-20) mg/dL Creatinine 13.1 H (0.8-1.3) mg/dL Estimated GFR 5 ml/min BUN/Creatinine Ratio 6 % Glucose 222 H (75-100) mg/dL Calcium 9.0 (8.4-10.2) mg/dL Total Bilirubin 1.00 (0.1-1.2) mg/dL AST 10 (5-40) units/L ALT 10 (7-56) units/L Alkaline Phosphatase 253 H (35-129) units/L Troponin T 0.564 H* (0.00-0.029) ng/mL Total Protein 7.0 (6.3-8.2) g/dL Albumin 4.2 (3.9-5) g/dL Albumin/Globulin Ratio 1.5 % Lipase 34 (13-60) units/L - EKG Data -: EKG Interpreted by [facility] EKG shows normal: sinus rhythm, ST-T waves (no stemi) Rate: normal - Radiology Data Radiology results: report reviewed CHEST 1 VIEW 07/27/2022 3:05 PM INDICATION / CLINICAL INFORMATION: missed dialysis, sob, n,v. COMPARISON: Chest radiograph 05/31/2021 FINDINGS: SUPPORT DEVICES: Median sternotomy wires are present. HEART / MEDIASTINUM: Mild cardiomegaly. Mild central pulmonary vascular prominence. LUNGS / PLEURA: Diffuse interstitial prominence throughout the bilateral lungs. No pneumothorax. ADDITIONAL FINDINGS: No significant additional findings. IMPRESSION: 1. Cardiomegaly with pulmonary edema, indicative of CHF. CT ABDOMEN AND PELVIS WITHOUT CONTRAST INDICATION / CLINICAL INFORMATION: n,v abd pain, dialysis pt. TECHNIQUE: Axial CT images were obtained through the abdomen and pelvis without IV contrast. All CT scans at this location are performed using CT dose reduction for ALARA by means of automated exposure control. COMPARISON: 2020 FINDINGS: LOWER CHEST: Interval development of small bilateral effusions with moderate interlobular septal thickening. An additional area of wedge-shaped hyperdensity within the left lower lobe posterior laterally measuring 3.3 cm the previous examination. Four-chamber cardiomegaly with trace pericardial fluid. LIVER: Mild hepatomegaly with questionable mild nodular hepatic contour. GALLBLADDER: No significant abnormality. BILE DUCTS: No significant abnormality. PANCREAS: No significant abnormality. SPLEEN: No significant abnormality. ADRENALS: No significant abnormality. RIGHT KIDNEY / URETER: No significant abnormality. LEFT KIDNEY / URETER: No significant abnormality. STOMACH / SMALL BOWEL: No significant abnormality. COLON: Mural thickening and surrounding mild pericolic injection, most pronounced at the hepatic flexure. APPENDIX: Not visualized. PERITONEUM: Small volume ascites/free pelvic fluid. No free air. No fluid collection. LYMPH NODES: Mildly prominent periaortic lymph nodes. AORTA / ARTERIES: Advanced atherosclerosis. IVC / VEINS: No significant abnormality. URINARY BLADDER: Mild perivesicular injection. REPRODUCTIVE ORGANS: No acute abnormality. ADDITIONAL FINDINGS: None. SKELETAL SYSTEM: Features of renal osteodystrophy, increasing. IMPRESSION: 1. Imaging features most concerning for multifocal colitis most pronounced involving the hepatic flexure, infectious, inflammatory as well as ischemic etiologies considered. Gastrology evaluation is recommended. 2. Small volume ascites/free pelvic fluid in the setting of trace basilar effusions and interlobular septal thickening, which may reflect a component of volume overload, hypoproteinemia/systemic disease, intrinsic hepatocellular disease with slight hepatic nodular contour, mild congestive heart failure, or a combination of these entities. 3. Mild aortic adenopathy, nonspecific, statistically reactive. 4. New radiopaque hyperdensity within the left lung base, most concerning for sequelae of interval aspiration of high dense material less likely sequelae of interval intervention or other mimicking etiology. Recommend clinical correlation. 5. Possible cystitis. Correlate with urinalysis. 6. Other ancillary findings as described. - Medical Decision Making 36-year-old male presents to the hospital with nausea, vomiting, shortness of breath, and missed dialysis. ED work-up reveals lung findings of volume overload/pulmonary edema, radiopaque material in the lung, colitis, and ascites. Patient also noted to have mild troponin elevation likely secondary to underlying renal failure. Repeat pending at disposition. Case was discussed with several specialists including nephrology, pulmonology, and GI. Consults have been ordered. Patient treated with antibiotics, pain medication, IV Lasix, and antiemetic with improvement in symptoms. Hospitalist Dr. Arnold to admit Critical Care Time: No Critical care attestation.: If time is entered above; I have spent that time in minutes in the direct care of this critically ill patient, excluding procedure time. ED Disposition Clinical Impression: Colitis, ESRD needing dialysis, Pulmonary edema, Missed dialysis, Nausea and vomiting Disposition: ADMITTED INPATIENT Is pt being admited?: Yes Condition: Stable Instructions: Pulmonary Edema (ED) Time of Disposition: 19:17 (DR Arnold/hospitalist)
--- NOTE | 2022-07-27 16:11 | XRay Report ---
CHEST 1 VIEW 07/27/2022 3:05 PM INDICATION / CLINICAL INFORMATION: missed dialysis, sob, n,v. COMPARISON: Chest radiograph 05/31/2021 FINDINGS: SUPPORT DEVICES: Median sternotomy wires are present. HEART / MEDIASTINUM: Mild cardiomegaly. Mild central pulmonary vascular prominence. LUNGS / PLEURA: Diffuse interstitial prominence throughout the bilateral lungs. No pneumothorax. ADDITIONAL FINDINGS: No significant additional findings. IMPRESSION: 1. Cardiomegaly with pulmonary edema, indicative of CHF. Signer Name: Seng Noble MD Signed: 07/27/2022 4:07 PM Workstation Name: [id number]
[2022-07-27] MEDS ORDERED: FUROSEMIDE 40 MG/4 ML INJ IV ONE (16:29)
[2022-07-27 16:45] LABS: Basophils # (Auto) 0.1 K/mm3 (0.0-0.1); Eosinophils % (Auto) 0.2 % (0.0-4.3); Hematocrit 33.9 % (35.5-45.6); Hemoglobin 10.6 gm/dl (11.8-15.2); Lymphocytes # (Auto) 1.1 K/mm3 (1.2-5.4); Mean Corpuscular HGB Conc 31 % (32-34); Mean Corpuscular Volume 92 fl (84-94); Monocytes # (Auto) 0.4 K/mm3 (0.0-0.8); Monocytes % (Auto) 7.2 % (0.0-7.3); Platelet Count 259 K/mm3 (140-440); Red Blood Count 3.71 M/mm3 (3.65-5.03); Red Cell Distribution Width 17.7 % (13.2-15.2)
[2022-07-27] MEDS ORDERED: MORPHINE 4 MG/1 ML INJ IV ONE (16:54)
[2022-07-27 17:05] LABS: Albumin 4.2 g/dL (3.9-5)
--- NOTE | 2022-07-27 18:19 | Cat Scan Report ---
. CT ABDOMEN AND PELVIS WITHOUT CONTRAST INDICATION / CLINICAL INFORMATION: n,v abd pain, dialysis pt. TECHNIQUE: Axial CT images were obtained through the abdomen and pelvis without IV contrast. All CT scans at this location are performed using CT dose reduction for ALARA by means of automated exposure control. COMPARISON: 2019 FINDINGS: LOWER CHEST: Interval development of small bilateral effusions with moderate interlobular septal thic kening. An additional area of wedge-shaped hyperdensity within the left lower lobe posterior laterall y measuring 3.3 cm the previous examination. Four-chamber cardiomegaly with trace pericardial fluid. LIVER: Mild hepatomegaly with questionable mild nodular hepatic contour. GALLBLADDER: No significant abnormality. BILE DUCTS: No significant abnormality. PANCREAS: No significant abnormality. SPLEEN: No significant abnormality. ADRENALS: No significant abnormality. RIGHT KIDNEY / URETER: No significant abnormality. LEFT KIDNEY / URETER: No significant abnormality. STOMACH / SMALL BOWEL: No significant abnormality. COLON: Mural thickening and surrounding mild pericolic injection, most pronounced at the hepatic flex ure. APPENDIX: Not visualized. PERITONEUM: Small volume ascites/free pelvic fluid. No free air. No fluid collection. LYMPH NODES: Mildly prominent periaortic lymph nodes. AORTA / ARTERIES: Advanced atherosclerosis. IVC / VEINS: No significant abnormality. URINARY BLADDER: Mild perivesicular injection. REPRODUCTIVE ORGANS: No acute abnormality. ADDITIONAL FINDINGS: None. SKELETAL SYSTEM: Features of renal osteodystrophy, increasing. IMPRESSION: 1. Imaging features most concerning for multifocal colitis most pronounced involving the hepatic flex ure, infectious, inflammatory as well as ischemic etiologies considered. Gastrology evaluation is rec ommended. 2. Small volume ascites/free pelvic fluid in the setting of trace basilar effusions and interlobular septal thickening, which may reflect a component of volume overload, hypoproteinemia/systemic disease , intrinsic hepatocellular disease with slight hepatic nodular contour, mild congestive heart failure , or a combination of these entities. 3. Mild aortic adenopathy, nonspecific, statistically reactive. 4. New radiopaque hyperdensity within the left lung base, most concerning for sequelae of interval as piration of high dense material less likely sequelae of interval intervention or other mimicking etio logy. Recommend clinical correlation. 5. Possible cystitis. Correlate with urinalysis. 6. Other ancillary findings as described. Signer Name: Yovany Morris MD Signed: 07/27/2022 6:15 PM Workstation Name: [id number]
[2022-07-27] MEDS ORDERED: metroNIDAZOLE/NS 500 MG/100 ML 500 MG/100 ML BAG IV ONE (18:58)
--- NOTE | 2022-07-27 19:24 | History and Physical Report ---
History of Present Illness Chief complaint: I feel sick History of present illness: 36 YO Male with HTN, DM complicated by Gastroparesis, ESRD on HD (M, W, F), Gastric Ulcer, Recurrent Ulcerative Esophagitis, PE not taking therapeutic anticoagulatioin, medication noncompliance presents to ED for evaluation. Patient reports "I feel sick". Patient states he has experienced nausea, multiple episodes of vomiting, and generalized weakness over the past 3 days with persistent and worsening symptoms over the same timeframe. Patient states that he has missed his last 2 dialysis sessions. EMS was notified and upon ar rival the patient was found to be in distress and subsequent transported to [facility] for further care and evaluation of the aforementioned symptoms. The patient was seen and evaluated in the emergency department. All lab and imaging studies reviewed. CT scan of the abdomen and pelvis revealed evidence of colitis. Patient also found to have end-stage renal disease needed urgent dialysis, fluid overload, as well as pulmonary edema. Patient also found to have left lung basal lesion. Patient admitted to medical floor due to increased risk of worsening symptoms after medical stabilization. Nephrology team consulted in ED for urgent dialysis. Patient denies fever, chills, chest pain, palpitation, productive cough, skin rash, recent contact, or known exposure to COVID-19. Prior admission on 05/31/2021 reviewed. All medication listed at time of admission has been reconciled. Advanced care planning conducted in ED. GI team consulted in ED. Pulmonary team consulted in ED. Past History Past Medical History: diabetes, ESRD, hypertension, pulmonary embolism Past Surgical History: appendectomy, cholecystectomy, Other (Dialysis access) Social history: single. denies: smoking, alcohol abuse, prescription drug abuse Family history: diabetes, hypertension Medications and Allergies Allergies Allergy/AdvReac Type Severity Reaction Status Date / Time hydromorphone [From Dilaudid] AdvReac Unknown Verified 07/25/22 18:14 Home Medications Medication Instructions Recorded Confirmed Last Taken Type Albuterol Sulfate [Albuterol 0.63% 0.63 mg IH BID PRN #60 vial 11/03/20 06/01/21 Unknown Rx NEBS] Metoclopramide [Reglan TAB] 5 mg PO ACHS #30 tablet 12/19/20 06/01/21 Unknown Rx Epoetin Wale-Epbx 10,000 Unit 10,000 unit SUB-Q BRENDAN vial 01/12/21 06/01/21 Unknown Rx [Retacrit] Acetaminophen [Acetaminophen TAB] 650 mg PO Q4H PRN tablet 02/26/21 06/01/21 Unknown Rx Insulin Glargine [Lantus VIAL] 12 units SUB-Q QHS units 02/26/21 06/01/21 Unknown Rx Lispro Insulin [HumaLOG] 0 unit SUB-Q ACHS units 02/26/21 06/01/21 Unknown Rx guaiFENesin ER [Mucinex ER] 600 mg PO BID PRN tablet 02/26/21 06/01/21 Unknown Rx lisinopriL [Zestril TAB] 20 mg PO QHS tablet 02/26/21 06/01/21 Unknown Rx Aspirin [Aspirin BABY CHEW TAB] 81 mg PO QDAY #30 tab.chew 06/03/21 Unknown Rx Docusate Sodium [Colace CAP] 100 mg PO BID #30 capsule 06/03/21 Unknown Rx Famotidine [Pepcid] 10 mg PO BID #60 tablet 06/03/21 Unknown Rx Sertraline [Zoloft] 50 mg PO QDAY #30 tablet 06/03/21 Unknown Rx Sevelamer Carbonate [Renvela] 1,600 mg PO TIDWM #90 tablet 06/03/21 Unknown Rx carvediloL [Coreg] 12.5 mg PO BID #60 tablet 06/03/21 Unknown Rx oxyCODONE /ACETAMINOPHEN [Percocet 1 tab PO Q6H PRN #10 tablet 06/03/21 Unknown Rx 5/325 mg] Active Meds: Active Medications Metronidazole (Flagyl 500 Mg/100 Ml) 500 mg in 100 mls @ 200 mls/hr IV ONCE ONE; Protocol Stop: 07/27/22 19:27 Levofloxacin/Dextrose (Levaquin 750mg/150ml) 750 mg in 150 mls @ 100 mls/hr IV ONCE ONE; Protocol Stop: 07/27/22 20:27 Review of Systems Constitutional: no weight loss, no weight gain, no fever, no chills Ears, nose, mouth and throat: no ear pain, no tinnitis, no decreased hearing, no nasal congestion, no nasal discharge Cardiovascular: no chest pain, no orthopnea, no rapid/irregular heart beat Respiratory: no cough, no cough with sputum, no excessive sputum, no hemoptysis Gastrointestinal: nausea, vomiting, no diarrhea, no constipation Genitourinary Male: no hematuria, no flank pain, no discharge, no urinary frequency Rectal: no pain, no incontinence, no bleeding Musculoskeletal: no neck stiffness Integumentary: no pruritis, no redness, no sores, no jaundice Neurological: no head injury, no paralysis, no parathesias, no tingling, no seizures Psychiatric: no anxiety, no change in sleep habits, no insomnia, no change in libido Endocrine: no cold intolerance, no polyphagia, no polydipsia, no nocturia Hematologic/Lymphatic: no easy bruising, no easy bleeding Allergic/Immunologic: no urticaria, no allergic rhinitis, no wheezing Exam - Constitutional Vitals: Temp Pulse Resp BP Pulse Ox 98 F 97 H 18 143/100 100 07/27/22 13:51 07/27/22 13:51 07/27/22 13:51 07/27/22 13:51 07/27/22 13:51 General appearance: Present: mild distress - EENT Eyes: Present: PERRL ENT: hearing intact, clear oral mucosa - Neck Neck: Present: supple, normal ROM - Respiratory Respiratory effort: normal Respiratory: bilateral: CTA - Cardiovascular Heart Sounds: Present: S1 & S2. Absent: rub, click - Extremities Extremities: pulses symmetrical, No edema Peripheral Pulses: within normal limits - Abdominal General gastrointestinal: Present: soft, non-tender, non-distended, normal bowel sounds Male genitourinary: Present: normal - Integumentary Integumentary: Present: clear, warm, dry - Musculoskeletal Musculoskeletal: gait normal, strength equal bilaterally - Psychiatric Psychiatric: appropriate mood/affect, intact judgment & insight - Neurologic Neurologic: CNII-XII intact, moves all extremities HEART Score - HEART Score Troponin: Troponin T 0.564 ng/mL (0.00-0.029) H* 07/27/22 16:14 Results - Labs CBC & Chem 7: 07/27/22 16:14 07/27/22 16:14 Labs: Abnormal lab results 07/27/22 07/27/22 07/27/22 Range/Units 16:14 16:14 16:14 Hgb 10.6 L (11.8-15.2) gm/dl Hct 33.9 L (35.5-45.6) % MCHC 31 L (32-34) % RDW 17.7 H (13.2-15.2) % Lymph # (Auto) 1.1 L (1.2-5.4) K/mm3 Seg Neutrophils % 70.6 H (40.0-70.0) % Chloride 91.0 L (98-107) mmol/L BUN 84 H (9-20) mg/dL Creatinine 13.1 H (0.8-1.3) mg/dL Glucose 222 H (75-100) mg/dL Alkaline Phosphatase 253 H (35-129) units/L Troponin T 0.564 H* (0.00-0.029) ng/mL Triglycerides 175 H (2-149) mg/dL HDL Cholesterol 38 L (40-59) mg/dL Assessment and Plan - Patient Problems (1) Colitis Status: Acute Plan to address problem: GI team consulted in ED, further care and evaluation as per GI team. (2) End stage renal disease Status: Acute Plan to address problem: Nephrology team consulted in ED. Dialysis as per renal team. Renal diet, strict I's/O, avoid nephrotoxic agents. (3) Fluid overload Status: Acute Plan to address problem: Urgent dialysis as per renal team, monitor fluid balance. (4) Pulmonary edema Status: Acute Plan to address problem: Urgent dialysis, supportive care, supplemental oxygen. Pulmonary toilet. Pulmonary team consulted. (5) Left pulmonary lesion Status: Acute Plan to address problem: Pulmonary team consulted, check x-ray, continue to monitor. (6) DVT prophylaxis Status: Acute Plan to address problem: SCD to bilateral lower extremities while in bed (7) Advance care planning Status: Acute Plan to address problem: Disease education data, care plan discussed, diagnoses discussed, prognosis dis cussed, patient is full code. Patient knowledges understanding and agreement with care plan, +30 minutes. (8) Preventative health care Status: Acute Plan to address problem: Patient counseled regarding medication compliance, compliance with outpatient dialysis, and outpatient follow-up with primary care physician for all age and risk factor appropriate screening test. +30 minutes.
[2022-07-27] MEDS ORDERED: HYDROmorphone 0.5 MG/0.5 ML INJ IV PRN (19:27)
[2022-07-27] MEDS ORDERED: oxyCODONE /ACETAMINOPHEN 5-325MG TAB PO PRN (19:27)
[2022-07-27] MEDS ORDERED: ALBUTEROL 2.5 MG/3 ML NEBU IH PRN (19:27)
[2022-07-27] MEDS ORDERED: ACETAMINOPHEN 325 MG TAB PO PRN (19:27)
[2022-07-27] MEDS ORDERED: guaiFENesin ER 600 MG TAB PO PRN (19:29)
[2022-07-27] MEDS ORDERED: DEXTROSE 50% IN WATER (25GM) 50 ML SYRINGE IV PRN (19:30)
[2022-07-27] MEDS ORDERED: EPOETIN ALFA-EPBX 10,000 UNIT/1 ML VIAL SUB-Q SCH (20:00)
[2022-07-27] MEDS: INSULIN LISPRO 100 UNIT/ML SUB-Q SCH ×2 (22:15→22:23)
[2022-07-27] MEDS: DOCUSATE SODIUM 100 MG CAP PO SCH (22:18)
[2022-07-27] MEDS: FAMOTIDINE 10 MG TAB PO SCH ×2 (22:18→22:23)
[2022-07-27] MEDS: METOCLOPRAMIDE 10 MG TAB PO SCH ×2 (22:18→22:24)
[2022-07-27] MEDS: LISINOPRIL 20 MG TAB PO SCH (22:19)
[2022-07-28] MEDS: ONDANSETRON 4 MG/2 ML INJ IV PRN ×3 (00:07→18:32)
[2022-07-28] MEDS ORDERED: MORPHINE 2 MG/1 ML INJ IV ONE (02:42)
--- NOTE | 2022-07-28 08:26 | Consultation ---
History of Present Illness Consult date: 07/28/22 Reason for consult: pulmonary embolism, other (Pulmonary edema.) History of present illness: 36 YO Male with HTN, DM complicated by Gastroparesis, ESRD on HD (M, W, F), Gastric Ulcer, Recurrent Ulcerative Esophagitis, PE not taking therapeutic a nticoagulatioin, medication noncompliance presents to ED for evaluation. Patient states he has experienced nausea, multiple episodes of vomiting, and generalized weakness over the past 3 days with persistent and worsening symptoms over the same timeframe. Patient states that he has missed his last 2 dialysis sessions. EMS was notified and upon arrival the patient was found to be in distress and subsequent transported to [facility] for further care and evaluation of the aforementioned symptoms. CT scan of the abdomen and pelvis revealed evidence of colitis. Patient also found to have end-stage renal disease needed urgent dialysis, fluid overload, as well as pulmonary edema. Patient also found to have left lung basal lesion. Patient admitted to medical floor . Nephrology team consulted in ED for urgent dialysis. Patient denies fever, chills, chest pain, palpitation, productive cough, skin rash, recent contact, or known exposure to COVID-19. Surgical history Appendectomy, Cholecystectomy, Dialysis access. Denies smoking, alcohol or drug abuse. 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 Allergic to hydromorphone. Patient awake. On 3 litres O2. O2 saturation 100%. Complaing slight shortness of breath and cough.Complaining abdominal pain. No acute respiratory distress at rest. Patient afebrile. No leukocytosis, Blood pressure 141/98, pulse 90 , respirations 20. Chest xray done 07/27/22 reported Cardiomegaly with pulmonary edema, indicative of CHF. CT of abdomenn and pelvis with out contrast 07/27/22 reported Imaging features most concerning for multifocal colitis most pronounced involving the hepatic flexure, infectious, inflammatory as well as ischemic etiologies considered. Gastrology evaluation is recommended. 2. Small volume ascites/free pelvic fluid in the setting of trace basilar effusions and interlobular septal thickening, which may reflect a component of volume overload, hypoproteinemia/systemic disease, intrinsic hepatocellular disease with slight hepatic nodular contour, mild congestive heart failure, or a combination of these entities. 3. Mild aortic adenopathy, nonspecific, statistically reactive. 4. New radiopaque hyperdensity within the left lung base, most concerning for sequelae of interval aspiration of high dense material less likely sequelae of interval intervention or other mimicking etiology. Recommend clinical correlation. 5. Possible cystitis. Correlate with urinalysis. 6. Other ancillary findings as described. Patient is on Levaquin, Metronidazole, albuterol inhaler, famotidine, I/V fluid bolus NSS prn for hypotension. Past History Past Medical History: diabetes, ESRD, hypertension, pulmonary embolism Past Surgical History: appendectomy, cholecystectomy, Other (Dialysis access) Social history: single. denies: smoking, alcohol abuse, prescription drug abuse Family history: diabetes, hypertension Medications and Allergies Allergies Allergy/AdvReac Type Severity Reaction Status Date / Time hydromorphone [From Dilaudid] AdvReac Unknown Verified 07/25/22 18:14 Home Medications Medication Instructions Recorded Confirmed Last Taken Type Albuterol Sulfate [Albuterol 0.63% 0.63 mg IH BID PRN #60 vial 11/03/20 06/01/21 Unknown Rx NEBS] Metoclopramide [Reglan TAB] 5 mg PO ACHS #30 tablet 12/19/20 06/01/21 Unknown Rx Epoetin Wale-Epbx 10,000 Unit 10,000 unit SUB-Q BRENDAN vial 01/12/21 06/01/21 Unknown Rx [Retacrit] Acetaminophen [Acetaminophen TAB] 650 mg PO Q4H PRN tablet 02/26/21 06/01/21 Unknown Rx Insulin Glargine [Lantus VIAL] 12 units SUB-Q QHS units 02/26/21 06/01/21 Unknown Rx Lispro Insulin [HumaLOG] 0 unit SUB-Q ACHS units 02/26/21 06/01/21 Unknown Rx guaiFENesin ER [Mucinex ER] 600 mg PO BID PRN tablet 02/26/21 06/01/21 Unknown Rx lisinopriL [Zestril TAB] 20 mg PO QHS tablet 02/26/21 06/01/21 Unknown Rx Aspirin [Aspirin BABY CHEW TAB] 81 mg PO QDAY #30 tab.chew 06/03/21 Unknown Rx Docusate Sodium [Colace CAP] 100 mg PO BID #30 capsule 06/03/21 Unknown Rx Famotidine [Pepcid] 10 mg PO BID #60 tablet 06/03/21 Unknown Rx Sertraline [Zoloft] 50 mg PO QDAY #30 tablet 06/03/21 Unknown Rx Sevelamer Carbonate [Renvela] 1,600 mg PO TIDWM #90 tablet 06/03/21 Unknown Rx carvediloL [Coreg] 12.5 mg PO BID #60 tablet 06/03/21 Unknown Rx oxyCODONE /ACETAMINOPHEN [Percocet 1 tab PO Q6H PRN #10 tablet 06/03/21 Unknown Rx 5/325 mg] Active Meds: Active Medications Acetaminophen (Acetaminophen 325 Mg Tab) 650 mg PO Q4H PRN PRN Reason: Pain MILD(1-3)/Fever >100.5/LANZA Albuterol (Albuterol 2.5 Mg/3 Ml Nebu) 2.5 mg IH Q4HRT PRN PRN Reason: Shortness Of Breath Aspirin (Aspirin 81 Mg Tab Chew) 81 mg PO QDAY KESHIA Carvedilol (Carvedilol 12.5 Mg Tab) 12.5 mg PO BID@0800,1700 [facility] Dextrose (Dextrose 50% In Water (25gm) 50 Ml Syringe) 0 ml IV Q30MIN PRN; Protocol PRN Reason: Hypoglycemia Docusate Sodium (Docusate Sodium 100 Mg Cap) 100 mg PO BID [facility] Last Admin: 07/27/22 22:18 Dose: 100 mg Epoetin Wale-epbx (Epoetin Wale-Epbx 10,000 Unit/1 Ml Vial) 10,000 unit SUB-Q BRENDAN KESHIA Famotidine (Famotidine 10 Mg Tab) 10 mg PO BID [facility] Last Admin: 07/27/22 22:23 Dose: Not Given Guaifenesin (Guaifenesin Er 600 Mg Tab) 600 mg PO BID PRN PRN Reason: mucous Insulin Human Lispro (Insulin Lispro 100 Unit/Ml) 0 unit SUB-Q ACHS [facility]; Protocol Last Admin: 07/27/22 22:23 Dose: Not Given Lisinopril (Lisinopril 20 Mg Tab) 20 mg PO QHS [facility] Last Admin: 07/27/22 22:19 Dose: 20 mg Metoclopramide HCl (Metoclopramide 10 Mg Tab) 5 mg PO ACHS [facility] Last Admin: 07/27/22 22:24 Dose: Not Given Ondansetron HCl (Ondansetron 4 Mg/2 Ml Inj) 4 mg IV Q8H PRN PRN Reason: Nausea And Vomiting Last Admin: 07/28/22 06:43 Dose: 4 mg Oxycodone/Acetaminophen (Oxycodone /Acetaminophen 5-325mg Tab) 1 tab PO Q16H PRN PRN Reason: Pain, Moderate (4-6) Sertraline HCl (Sertraline 50 Mg Tab) 50 mg PO QDAY KESHIA Sevelamer Carbonate (Sevelamer Carbonate 800 Mg Tab) 1,600 mg PO TIDWM KESHIA Sodium Chloride (Sodium Chloride 0.9% 10 Ml Flush Syringe) 10 ml IV BID KESHIA Last Admin: 07/27/22 22:19 Dose: 10 ml Sodium Chloride (Sodium Chloride 0.9% 10 Ml Flush Syringe) 10 ml IV PRN PRN PRN Reason: LINE FLUSH Last Admin: 07/28/22 06:50 Dose: 10 ml Review of Systems All systems: negative Physical Examination Vital signs: Vital Signs Temp Pulse Resp BP Pulse Ox 98 F 97 H 18 143/100 100 07/27/22 13:51 07/27/22 13:51 07/27/22 13:51 07/27/22 13:51 07/27/22 13:51 General appearance: alert, appears uncomfortable Eyes: non-icteric ENT: oropharynx moist Neck: supple, no JVD Effort: mildly labored Ascultation: Bilateral: rales Cardiovascular: regular rate and rhythm Gastrointestinal: hypoactive bowel sounds, tender Extremities: no cyanosis, no edema Musculoskeletal: no deformities Gait: other (Can not evaluate at this time.) normal mental status, non-focal exam, pupils equal and round anxious Results - Laboratory Findings CBC and BMP: 07/27/22 16:14 07/28/22 16:34 Abnormal lab findings: Abnormal Labs 07/27/22 07/27/22 07/27/22 16:14 16:14 16:14 Hgb 10.6 L Hct 33.9 L MCHC 31 L RDW 17.7 H Lymph # (Auto) 1.1 L Seg Neutrophils % 70.6 H Chloride 91.0 L BUN 84 H Creatinine 13.1 H Glucose 222 H POC Glucose Alkaline Phosphatase 253 H Troponin T 0.564 H* Triglycerides 175 H HDL Cholesterol 38 L 07/27/22 07/27/22 07/28/22 20:57 22:08 01:11 Hgb Hct MCHC RDW Lymph # (Auto) Seg Neutrophils % Chloride BUN Creatinine Glucose POC Glucose 194 H 190 H Alkaline Phosphatase Troponin T 0.552 H* Triglycerides HDL Cholesterol - Diagnostic Findings Chest x-ray: report reviewed, image reviewed Additional studies: CHEST 1 VIEW 07/27/2022 3:05 PM INDICATION / CLINICAL INFORMATION: missed dialysis, sob, n,v. COMPARISON: Chest radiograph 05/31/2021 FINDINGS: SUPPORT DEVICES: Median sternotomy wires are present. HEART / MEDIASTINUM: Mild cardiomegaly. Mild central pulmonary vascular prominence. LUNGS / PLEURA: Diffuse interstitial prominence throughout the bilateral lungs. No pneumothorax. ADDITIONAL FINDINGS: No significant additional findings. IMPRESSION: 1. Cardiomegaly with pulmonary edema, indicative of CHF. CT ABDOMEN AND PELVIS WITHOUT CONTRAST 07/27/22 INDICATION / CLINICAL INFORMATION: n,v abd pain, dialysis pt. TECHNIQUE: Axial CT images were obtained through the abdomen and pelvis without IV contrast. All CT scans at this location are performed using CT dose reduction for ALARA by means of automated exposure control. COMPARISON: 2019 FINDINGS: LOWER CHEST: Interval development of small bilateral effusions with moderate interlobular septal thickening. An additional area of wedge-shaped hyperdensity within the left lower lobe posterior laterally measuring 3.3 cm the previous examination. Four-chamber cardiomegaly with trace pericardial fluid. LIVER: Mild hepatomegaly with questionable mild nodular hepatic contour. GALLBLADDER: No significant abnormality. BILE DUCTS: No significant abnormality. PANCREAS: No significant abnormality. SPLEEN: No significant abnormality. ADRENALS: No significant abnormality. RIGHT KIDNEY / URETER: No significant abnormality. LEFT KIDNEY / URETER: No significant abnormality. STOMACH / SMALL BOWEL: No significant abnormality. COLON: Mural thickening and surrounding mild pericolic injection, most pronounced at the hepatic flexure. APPENDIX: Not visualized. PERITONEUM: Small volume ascites/free pelvic fluid. No free air. No fluid collection. LYMPH NODES: Mildly prominent periaortic lymph nodes. AORTA / ARTERIES: Advanced atherosclerosis. IVC / VEINS: No significant abnormality. URINARY BLADDER: Mild perivesicular injection. REPRODUCTIVE ORGANS: No acute abnormality. ADDITIONAL FINDINGS: None. SKELETAL SYSTEM: Features of renal osteodystrophy, increasing. IMPRESSION: 1. Imaging features most concerning for multifocal colitis most pronounced involving the hepatic flexure, infectious, inflammatory as well as ischemic etiologies considered. Gastrology evaluation is recommended. 2. Small volume ascites/free pelvic fluid in the setting of trace basilar eff usions and interlobular septal thickening, which may reflect a component of volume overload, hypoproteinemia/systemic disease, intrinsic hepatocellular disease with slight hepatic nodular contour, mild congestive heart failure, or a combination of these entities. 3. Mild aortic adenopathy, nonspecific, statistically reactive. 4. New radiopaque hyperdensity within the left lung base, most concerning for sequelae of interval aspiration of high dense material less likely sequelae of interval intervention or other mimicking etiology. Recommend clinical correlation. 5. Possible cystitis. Correlate with urinalysis. 6. Other ancillary findings as described. Assessment and Plan 36 YO Male with HTN, DM complicated by Gastroparesis, ESRD on HD (M, W, F), Gastric Ulcer, Recurrent Ulcerative Esophagitis, PE not taking therapeutic anticoagulatioin, medication noncompliance presents to ED for evaluation. Patient states he has experienced nausea, multiple episodes of vomiting, and generalized weakness over the past 3 days with persistent and worsening symptoms over the same timeframe. Patient states that he has missed his last 2 dialysis sessions. EMS was notified and upon arrival the patient was found to be in distress and subsequent transported to [facility] for further care and evaluation of the aforementioned symptoms. CT scan of the abdomen and pelvis revealed evidence of colitis. Patient also found to have end-stage renal disease needed urgent dialysis, fluid overload, as well as pulmonary edema. Patient also found to have left lung basal lesion. Patient admitted to medical floor . Nephrology team consulted in ED for urgent dialysis. Patient denies fever, chills, chest pain, palpitation, productive cough, skin rash, recent contact, or known exposure to COVID-19. Surgical history Appendectomy, Cholecystectomy, Dialysis access. Denies smoking, alcohol or drug abuse. 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 Allergic to hydromorphone. Patient awake. On 3 litres O2. O2 saturation 100%. Complaing slight shortness of breath and cough.Complaining abdominal pain. No acute respiratory distress at rest. Patient afebrile. No leukocytosis, Blood pressure 141/98, pulse 90 , respirations 20. Chest xray done 07/27/22 reported Cardiomegaly with pulmonary edema, indicative of CHF. CT of abdomenn and pelvis with out contrast 07/27/22 reported Imaging features most concerning for multifocal colitis most pronounced involving the hepatic flexure, infectious, inflammatory as well as ischemic etiologies considered. Gastrology evaluation is recommended. 2. Small volume ascites/free pelvic fluid in the setting of trace basilar effusions and interlobular septal thickening, which may reflect a component of volume overload, hypoproteinemia/systemic disease, intrinsic hepatocellular disease with slight hepatic nodular contour, mild congestive heart failure, or a combination of these entities. 3. Mild aortic adenopathy, nonspecific, statistically reactive. 4. New radiopaque hyperdensity within the left lung base, most concerning for sequelae of interval aspiration of high dense material less likely sequelae of interval intervention or other mimicking etiology. Recommend clinical correlation. 5. Possible cystitis. Correlate with urinalysis. 6. Other ancillary findings as described. Patient is on Levaquin, Metronidazole, albuterol inhaler, famotidine, I/V fluid bolus NSS prn for hypotension. I spent critical care time of 50 minutes on this patient obtaining history, review the chart, examine the patient, review xrays, review lab work, talking to the nursing staff , respiratory therapy staff and work up plan of treatment in this patient with multiple medical problems. - Patient Problems (1) Pulmonary edema Current Visit: Yes Status: Acute Plan to address problem: Patient is on dialysis. Albuterol inhaler 2 puffs po q 6 hours prn for shortness of breath. (2) Accelerated hypertension Current Visit: No Status: Acute Plan to address problem: Patient is on Lisinopril and Coreg. Management as per primary care. (3) Acute gastritis Current Visit: No Status: Acute Qualifiers: Gastritis type: unspecified gastritis Gastritis bleeding: presence of bleeding unspecified Qualified Code(s): K29.00 - Acute gastritis without bleeding Plan to address problem: Patient is on Famotidine. Management as per gastroenterology. (4) Colitis Current Visit: No Status: Acute Plan to address problem: Patient is on Levaquin and Metronidazole. Management as per gastroenterology. (5) Diabetes mellitus Current Visit: No Status: Acute Plan to address problem: Management as per primary care. (6) ESRD (end stage renal disease) on dialysis Current Visit: No Status: Acute Plan to address problem: Patient is on dialysis. Management as per nephrology. (7) History of pulmonary embolism Current Visit: Yes Status: Acute Plan to address problem: Start anticoagulation after GI problems controlled if pulmonary embolism not completely treated.
[2022-07-28] MEDS ORDERED: SODIUM CHLORIDE 0.9% 100 ML IV PRN (09:04)
[2022-07-28] MEDS: carvediloL 12.5 MG TAB PO SCH ×2 (10:40→17:44)
[2022-07-28] MEDS: FAMOTIDINE 10 MG TAB PO SCH ×2 (10:40→22:27)
[2022-07-28] MEDS: SEVELAMER CARBONATE 800 MG TAB PO SCH ×3 (10:40→17:44)
[2022-07-28] MEDS: SERTRALINE 50 MG TAB PO SCH (10:41)
[2022-07-28] MEDS: METOCLOPRAMIDE 10 MG TAB PO SCH ×4 (10:41→22:26)
[2022-07-28] MEDS: ASPIRIN 81 MG TAB CHEW PO SCH (10:41)
[2022-07-28] MEDS: DOCUSATE SODIUM 100 MG CAP PO SCH ×2 (10:41→22:26)
[2022-07-28] MEDS: INSULIN LISPRO 100 UNIT/ML SUB-Q SCH ×4 (10:41→22:27)
--- NOTE | 2022-07-28 11:07 | Consultation ---
DATE OF CONSULTATION: 07/28/2022 REFERRING PHYSICIAN: Dr. Sabrina Rivas. INDICATION: 1. Abdominal pain. 2. Abnormal CT scan. HISTORY OF PRESENT ILLNESS: The patient is a 36-year-old black male with history of hypertension, diabetes, end-stage renal disease, on dialysis as well as peptic ulcer disease and esophagitis in the past. The patient has been also diagnosed with PE, but not therapeutically anticoagulation with a history of noncompliance. The patient presented to the Emergency Room with complaints of feeling sick with nausea, vomiting, multiple episodes. The patient reports symptoms have been worsening over that time. The patient had missed dialysis x2. The patient was noted to be in some distress when he was subsequently seen in the Emergency Room after presentation. The patient subsequently was noted to need for urgent dialysis. The patient subsequently had a CT scan raising possible colitis and GI is consulted to aid in management. The patient is not the best historian. He denies any diarrhea or rectal bleeding. The patient is unclear as to whether or not he has had a colonoscopy in the past. He denies any other specific GI problems or complaints. PAST MEDICAL HISTORY: 1. Diabetes. 2. End-stage renal disease. 3. Hypertension. 4. PE. PAST SURGICAL HISTORY: 1. Status post appendectomy. 2. Status post cholecystectomy. MEDICATIONS: Reviewed and updated in chart. ALLERGIES: DILAUDID. SOCIAL HISTORY: Denies alcohol, tobacco or drug abuse. FAMILY HISTORY: Negative for colon cancer, IBD, or liver disease. REVIEW OF SYSTEMS: GENERAL: Reports some weakness. HEENT: Denies visual complaints or tinnitus. PULMONARY: Denies shortness of breath. CARDIOVASCULAR: Denies chest pain. GASTROINTESTINAL: Reports upper and lower abdominal pain with nausea. All points of 13-point review of systems otherwise negative. PHYSICAL EXAMINATION: VITAL SIGNS: Temperature of 97.9, pulse 91, respirations 20, blood pressure 133/90. GENERAL: Fairly nourished with no acute distress, somewhat sleepy. HEENT: Pupils equal, round and reactive. PULMONARY: Clear to auscultation bilaterally. CARDIOVASCULAR: Regular rate and rhythm. Normal S1, S2. ABDOMEN: Positive bowel sounds, soft. Mild discomfort, no guarding, no rebound. SKIN: No obvious rashes. LABORATORY DATA: Pertinent for white count of 5.1, hemoglobin and hematocrit of 10.6 and 33.9, platelet count of 259. Chem-7: Sodium of 139, potassium 4.4, chloride 91, CO2 of 25, BUN and creatinine of 84 and 13.1. LFTs within normal limits. Lipase within normal limits. CT scan abdomen and pelvis without contrast on 07/27/2022 showed features concerning for multifocal colitis in the colon and small ascites, also mentions a new radiopaque hyperdensity within the lung base. ASSESSMENT: A 36-year-old black male with multiple medical problems including end-stage renal disease, on dialysis and pulmonary embolus as well as gastrointestinal diagnosis of gastroparesis with a history of diabetes, also with a known history of noncompliance and has missed dialysis x2, now presents with nausea, vomiting with signs that he requires emergent dialysis. The patient reports no signs of diarrhea, but a CT scan showed possible colitis. The patient is unclear as to whether or not he has a colonoscopy. His exam showed mild pain. Management as noted below. PLAN: 1. We will review CT scan. 2. Agree with Levaquin and Flagyl as ordered. 3. We will order stool cultures if diarrhea. 4. Renal, on dialysis needs per primary team and consultants. 5. No plans for colonoscopy at this time. 6. We will review chart for previous interventions. 7. Okay for p.o. from GI standpoint. 8. We will follow. TID: [id number] RECEIPT: [id number] CAB/PRE
--- NOTE | 2022-07-28 11:49 | Progress Note ---
Assessment and Plan (1) Colitis Status: Acute Plan to address problem: GI team consulted in ED, further care and evaluation as per GI team. Continue empiric antibiotics (2) End stage renal disease Status: Acute Plan to address problem: Nephrology team consulted in ED. Dialysis as per renal team. Renal diet, strict I's/O, avoid nephrotoxic agents. Plan for dialysis today (3) Fluid overload Status: Acute Plan to address problem: Urgent dialysis as per renal team, monitor fluid balance. (4) Pulmonary edema Status: Acute Plan to address problem: Urgent dialysis, supportive care, supplemental oxygen. Pulmonary toilet. Pulmonary team consulted. (5) Left pulmonary lesion Status: Acute Plan to address problem: Pulmonary team consulted, check x-ray, continue to monitor. Follow pulmonary recommendation (6) DVT prophylaxis Status: Acute Plan to address problem: SCD to bilateral lower extremities while in bed (7) Advance care planning Status: Acute Plan to address problem: Disease education data, care plan discussed, diagnoses discussed, prognosis discussed, patient is full code. Patient knowledges understanding and agreement with care plan, +30 minutes. (8) Preventative health care Status: Acute Plan to address problem: Patient counseled regarding medication compliance, compliance with outpatient dialysis, and outpatient follow-up with primary care physician for all age and risk factor appropriate screening test. +30 minutes. --Continue antibiotics for colitis, placed on clear liquid diet, plan for hemodialysis today. Follow pulmonary recommendation. Subjective Date of service: 07/28/22 Interval history: Patient seen and examined. Medical records and medication list reviewed. No acute event overnight noted by the RN. Patient continued to complains of abdominal pain Discussed plan of care at bedside with patient. Objective - Exam Narrative Exam: GENERAL: well-developed and well-nourished -French male lying on bed appeared to be in mild discomfort. HEENT: Normocephalic. Atraumatic. No conjunctival congestion or icterus. Lanie ent has moist mucous membranes. NECK: Supple. Trachea midline. CHEST/LUNGS: Clear to auscultated bilaterally, breathing nonlabored. No wheezes crackles or rhonchi. HEART/CARDIOVASCULAR: Regular in rate and rhythm. S1 and S2 positive. ABDOMEN: Abdomen is soft, diffuse tender. Patient has normal bowel sounds. SKIN: There is no rash. Warm and dry. NEURO: No focal motor deficit. Follows command. MUSCULOSKELETAL: No joint effusion or tenderness. EXTRIMITY: No edema, no cyanosis or clubbing. PSYCH: Cooperative. - Constitutional Vitals: Vital Signs - 12hr 07/27/22 07/28/22 07/28/22 23:51 00:01 00:19 Temperature 97.9 F Pulse Rate 86 100 H 96 H Respiratory 12 18 20 Rate Blood Pressure 116/83 116/83 141/99 O2 Sat by Pulse 100 100 100 Oximetry 07/28/22 07/28/22 07/28/22 01:00 01:19 06:18 Temperature 97.9 F Pulse Rate 86 91 H Respiratory 16 22 Rate Blood Pressure 130/60 133/101 O2 Sat by Pulse 94 100 100 Oximetry 07/28/22 07/28/22 08:52 10:40 Temperature Pulse Rate Respiratory Rate Blood Pressure 141/98 O2 Sat by Pulse 100 Oximetry - Labs CBC & Chem 7: 07/27/22 16:14 07/28/22 16:34 Labs: Abnormal lab results 07/27/22 07/27/22 07/27/22 Range/Units 16:14 16:14 16:14 Hgb 10.6 L (11.8-15.2) gm/dl Hct 33.9 L (35.5-45.6) % MCHC 31 L (32-34) % RDW 17.7 H (13.2-15.2) % Lymph # (Auto) 1.1 L (1.2-5.4) K/mm3 Seg Neutrophils % 70.6 H (40.0-70.0) % Chloride 91.0 L (98-107) mmol/L BUN 84 H (9-20) mg/dL Creatinine 13.1 H (0.8-1.3) mg/dL Glucose 222 H (75-100) mg/dL POC Glucose (70-105) mg/dL Alkaline Phosphatase 253 H (35-129) units/L Troponin T 0.564 H* (0.00-0.029) ng/mL Triglycerides 175 H (2-149) mg/dL HDL Cholesterol 38 L (40-59) mg/dL 07/27/22 07/27/22 07/28/22 Range/Units 20:57 22:08 01:11 Hgb (11.8-15.2) gm/dl Hct (35.5-45.6) % MCHC (32-34) % RDW (13.2-15.2) % Lymph # (Auto) (1.2-5.4) K/mm3 Seg Neutrophils % (40.0-70.0) % Chloride (98-107) mmol/L BUN (9-20) mg/dL Creatinine (0.8-1.3) mg/dL Glucose (75-100) mg/dL POC Glucose 194 H 190 H (70-105) mg/dL Alkaline Phosphatase (35-129) units/L Troponin T 0.552 H* (0.00-0.029) ng/mL Triglycerides (2-149) mg/dL HDL Cholesterol (40-59) mg/dL HEART Score - HEART Score Troponin: Troponin T 0.552 ng/mL (0.00-0.029) H* 07/27/22 20:57
[2022-07-28] MEDS: metroNIDAZOLE 500 MG TAB PO SCH ×2 (13:58→22:27)
[2022-07-28 17:26] LABS: Calcium 9.2 mg/dL (8.4-10.2)
[2022-07-28 17:39] LABS: Hepatitis B Surface Antigen Non-Reactive (Negative); Hepatitis C Virus Antibody Non-Reactive (NonReactive)
--- NOTE | 2022-07-28 21:25 | Consultation ---
History of Present Illness - Reason for Consult Consult date: 07/28/22 end stage renal disease - History of Present Illness This is a 36-year-old man with end-stage renal disease on hemodialysis hy pertension, diabetes complicated by gastroparesis who presented to the emergency department with 3-day history of nausea, vomiting and weakness. Nephrology was consulted for ESRD management. Patient denies chest pain, syncope and presyncope. Past History Past Medical History: diabetes, ESRD, hypertension, pulmonary embolism Past Surgical History: appendectomy, cholecystectomy, Other (Dialysis access) Social history: single. denies: smoking, alcohol abuse, prescription drug abuse Family history: diabetes, hypertension Medications and Allergies Allergies Allergy/AdvReac Type Severity Reaction Status Date / Time hydromorphone [From Dilaudid] AdvReac Unknown Verified 07/25/22 18:14 Home Medications Medication Instructions Recorded Confirmed Last Taken Type Albuterol Sulfate [Albuterol 0.63% 0.63 mg IH BID PRN #60 vial 11/03/20 06/01/21 Unknown Rx NEBS] Metoclopramide [Reglan TAB] 5 mg PO ACHS #30 tablet 12/19/20 06/01/21 Unknown Rx Epoetin Wale-Epbx 10,000 Unit 10,000 unit SUB-Q BRENDAN vial 01/12/21 06/01/21 Unknown Rx [Retacrit] Acetaminophen [Acetaminophen TAB] 650 mg PO Q4H PRN tablet 02/26/21 06/01/21 Unknown Rx Insulin Glargine [Lantus VIAL] 12 units SUB-Q QHS units 02/26/21 06/01/21 Unknown Rx Lispro Insulin [HumaLOG] 0 unit SUB-Q ACHS units 02/26/21 06/01/21 Unknown Rx guaiFENesin ER [Mucinex ER] 600 mg PO BID PRN tablet 02/26/21 06/01/21 Unknown Rx lisinopriL [Zestril TAB] 20 mg PO QHS tablet 02/26/21 06/01/21 Unknown Rx Aspirin [Aspirin BABY CHEW TAB] 81 mg PO QDAY #30 tab.chew 06/03/21 Unknown Rx Docusate Sodium [Colace CAP] 100 mg PO BID #30 capsule 06/03/21 Unknown Rx Famotidine [Pepcid] 10 mg PO BID #60 tablet 06/03/21 Unknown Rx Sertraline [Zoloft] 50 mg PO QDAY #30 tablet 06/03/21 Unknown Rx Sevelamer Carbonate [Renvela] 1,600 mg PO TIDWM #90 tablet 06/03/21 Unknown Rx carvediloL [Coreg] 12.5 mg PO BID #60 tablet 06/03/21 Unknown Rx oxyCODONE /ACETAMINOPHEN [Percocet 1 tab PO Q6H PRN #10 tablet 06/03/21 Unknown Rx 5/325 mg] Active Meds: Active Medications Acetaminophen (Acetaminophen 325 Mg Tab) 650 mg PO Q4H PRN PRN Reason: Pain MILD(1-3)/Fever >100.5/LANZA Albuterol (Albuterol 2.5 Mg/3 Ml Nebu) 2.5 mg IH Q4HRT PRN PRN Reason: Shortness Of Breath Aspirin (Aspirin 81 Mg Tab Chew) 81 mg PO QDAY [facility] Last Admin: 07/28/22 10:41 Dose: 81 mg Carvedilol (Carvedilol 12.5 Mg Tab) 12.5 mg PO BID@0800,1700 [facility] Last Admin: 07/28/22 17:44 Dose: Not Given Dextrose (Dextrose 50% In Water (25gm) 50 Ml Syringe) 0 ml IV Q30MIN PRN; Protocol PRN Reason: Hypoglycemia Docusate Sodium (Docusate Sodium 100 Mg Cap) 100 mg PO BID [facility] Last Admin: 07/28/22 10:41 Dose: 100 mg Epoetin Wale-epbx (Epoetin Wale-Epbx 10,000 Unit/1 Ml Vial) 10,000 unit SUB-Q BRENDAN [facility] Last Admin: 07/28/22 18:30 Dose: 10,000 unit Famotidine (Famotidine 10 Mg Tab) 10 mg PO BID [facility] Last Admin: 07/28/22 10:40 Dose: 10 mg Guaifenesin (Guaifenesin Er 600 Mg Tab) 600 mg PO BID PRN PRN Reason: mucous Sodium Chloride (Nacl 0.9%) 100 mls @ 999 mls/hr IV BRENDAN PRN PRN Reason: Hypotension Insulin Human Lispro (Insulin Lispro 100 Unit/Ml) 0 unit SUB-Q ACHS KESHIA; Pr otocol Last Admin: 07/28/22 17:44 Dose: Not Given Levofloxacin (Levofloxacin 250 Mg Tab) 250 mg PO Q24HR [facility]; Protocol Lisinopril (Lisinopril 20 Mg Tab) 20 mg PO QHS [facility] Last Admin: 07/27/22 22:19 Dose: 20 mg Metoclopramide HCl (Metoclopramide 10 Mg Tab) 5 mg PO ACHS [facility] Last Admin: 07/28/22 17:44 Dose: Not Given Metronidazole (Metronidazole 500 Mg Tab) 500 mg PO Q8HR [facility]; Protocol Last Admin: 07/28/22 13:58 Dose: 500 mg Ondansetron HCl (Ondansetron 4 Mg/2 Ml Inj) 4 mg IV Q8H PRN PRN Reason: Nausea And Vomiting Last Admin: 07/28/22 18:32 Dose: 4 mg Oxycodone/Acetaminophen (Oxycodone /Acetaminophen 5-325mg Tab) 1 tab PO Q16H PRN PRN Reason: Pain, Moderate (4-6) Sertraline HCl (Sertraline 50 Mg Tab) 50 mg PO QDAY [facility] Last Admin: 07/28/22 10:41 Dose: 50 mg Sevelamer Carbonate (Sevelamer Carbonate 800 Mg Tab) 1,600 mg PO TIDWM [facility] Last Admin: 07/28/22 17:44 Dose: Not Given Sodium Chloride (Sodium Chloride 0.9% 10 Ml Flush Syringe) 10 ml IV BID [facility] Last Admin: 07/28/22 10:42 Dose: 10 ml Sodium Chloride (Sodium Chloride 0.9% 10 Ml Flush Syringe) 10 ml IV PRN PRN PRN Reason: LINE FLUSH Last Admin: 07/28/22 06:50 Dose: 10 ml Review of Systems All systems: negative Constitutional: weakness Gastrointestinal: nausea, vomiting Exam - Vital Signs Vital signs: Vital Signs Temp Pulse Resp BP Pulse Ox 98 F 97 H 18 143/100 100 07/27/22 13:51 07/27/22 13:51 07/27/22 13:51 07/27/22 13:51 07/27/22 13:51 - Physical Exam Narrative exam: Constitutional: no acute distress Head: NC/AT Neck: supple Lungs: clear to auscultation CV: RRR, no M/R/G Abdomen: soft, non-tender, bowel sounds present Back: nontender Extremities: no edema, pulses WNL Skin: intact Neuro: no focal deficits, alert and oriented x4 Results - Lab Results 07/27/22 16:14 07/28/22 16:34 Most recent lab results Calcium 9.2 mg/dL (8.4-10.2) 07/28/22 16:34 Assessment and Plan End-stage renal disease on hemodialysis Essential hypertension Anemia of ESRD Hyperphosphatemia Hyperparathyroidism Hemodialysis today Continue antihypertensives Hold antihypertensives on hemodialysis days for systolics less than 160 Continue binders Epogen with HD as needed Renally dose medications ESRD diet with 1.2-1. 4 g/kg/d protein intake
[2022-07-28] MEDS: LISINOPRIL 20 MG TAB PO SCH (22:26)
[2022-07-29] MEDS: metroNIDAZOLE 500 MG TAB PO SCH ×3 (05:18→22:25)
[2022-07-29] MEDS: INSULIN LISPRO 100 UNIT/ML SUB-Q SCH ×5 (09:12→22:33)
[2022-07-29] MEDS: SEVELAMER CARBONATE 800 MG TAB PO SCH ×3 (09:13→17:33)
[2022-07-29] MEDS: ASPIRIN 81 MG TAB CHEW PO SCH (09:13)
[2022-07-29] MEDS: METOCLOPRAMIDE 10 MG TAB PO SCH ×4 (09:13→22:25)
[2022-07-29] MEDS: DOCUSATE SODIUM 100 MG CAP PO SCH ×2 (09:13→22:22)
[2022-07-29] MEDS: FAMOTIDINE 10 MG TAB PO SCH ×2 (09:13→22:25)
[2022-07-29] MEDS: carvediloL 12.5 MG TAB PO SCH ×3 (09:14→17:48)
[2022-07-29] MEDS: SERTRALINE 50 MG TAB PO SCH (09:17)
[2022-07-29] MEDS ORDERED: levoFLOXacin 250 MG TAB PO SCH (10:00)
--- NOTE | 2022-07-29 13:13 | Progress Note ---
Assessment and Plan 36 YO Male with HTN, DM complicated by Gastroparesis, ESRD on HD (M, W, F), Gastric Ulcer, Recurrent Ulcerative Esophagitis, PE not taking therapeutic anticoagulatioin, medication noncompliance presents to ED for evaluation. Patient states he has experienced nausea, multiple episodes of vomiting, and generalized weakness over the past 3 days with persistent and worsening symptoms over the same timeframe. Patient states that he has missed his last 2 dialysis sessions. EMS was notified and upon arrival the patient was found to be in distress and subsequent transported to [facility] for further care and evaluation of the aforementioned symptoms. CT scan of the abdomen and pelvis revealed evidence of colitis. Patient also found to have end-stage renal disease needed urgent dialysis, fluid overload, as well as pulmonary edema. Patient also found to have left lung basal lesion. Patient admitted to medical floor . Nephrology team consulted in ED for urgent dialysis. Patient denies fever, chills, chest pain, palpitation, productive cough, skin rash, recent contact, or known exposure to COVID-19. Surgical history Appendectomy, Cholecystectomy, Dialysis access. Denies smoking, alcohol or drug abuse. 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 Allergic to hydromorphone. Patient awake. On 1 litres O2. O2 saturation 98%. No complaint of chest pain, shortness of breath or cough.Complaining slight abdominal pain. No acute resp iratory distress at rest. Patient afebrile. No leukocytosis, Blood pressure 106/73, pulse 82 , resp irations 18. Chest xray done 07/27/22 reported Cardiomegaly with pulmonary edema, indicative of CHF. CT of abdomenn and pelvis with out contrast 07/27/22 reported Imaging features most concerning for multifocal colitis most pronounced involving the hepatic flexure, infectious, inflammatory as well as ischemic etiologies considered. Gastrology evaluation is recommended. 2. Small volume ascites/free pelvic fluid in the setting of trace basilar effusions and interlobular septal thickening, which may reflect a component of volume overload, hypoproteinemia/systemic disease, intrinsic hepatocellular disease with slight hepatic nodular contour, mild congestive heart failure, or a combination of these entities. 3. Mild aortic adenopathy, nonspecific, statistically reactive. 4. New radiopaque hyperdensity within the left lung base, most concerning for sequelae of interval aspiration of high dense material less likely sequelae of interval intervention or other mimicking etiology. Recommend clinical correlation. 5. Possible cystitis. Correlate with urinalysis. 6. Other ancillary findings as described. Patient is on Levaquin, Metronidazole, albuterol inhaler, famotidine, I/V fluid bolus NSS prn for hypotension. I - Patient Problems (1) Pulmonary edema Current Visit: Yes Status: Acute Plan to address problem: Patient is on dialysis. Albuterol inhaler 2 puffs po q 6 hours prn for shortness of breath. (2) Accelerated hypertension Current Visit: No Status: Acute Plan to address problem: Patient is on Lisinopril and Coreg. Management as per primary care. (3) Acute gastritis Current Visit: No Status: Acute Qualifiers: Gastritis type: unspecified gastritis Gastritis bleeding: presence of bleeding unspecified Qualified Code(s): K29.00 - Acute gastritis without bleeding Plan to address problem: Patient is on Famotidine. Management as per gastroenterology. (4) Colitis Current Visit: No Status: Acute Plan to address problem: Patient is on Levaquin and Metronidazole. Management as per gastroenterology. (5) Diabetes mellitus Current Visit: No Status: Acute Plan to address problem: Management as per primary care. (6) ESRD (end stage renal disease) on dialysis Current Visit: No Status: Acute Plan to address problem: Patient is on dialysis. Management as per nephrology. (7) History of pulmonary embolism Current Visit: Yes Status: Acute Plan to address problem: Start anticoagulation after GI problems controlled if pulmonary embolism not completely treated. Subjective Date of service: 07/29/22 Interval history: 36 YO Male with HTN, DM complicated by Gastroparesis, ESRD on HD (M, W, F), Gastric Ulcer, Recurrent Ulcerative Esophagitis, PE not taking therapeutic anticoagulatioin, medication noncompliance presents to ED for evaluation. Patient states he has experienced nausea, multiple episodes of vomiting, and generalized weakness over the past 3 days with persistent and worsening symptoms over the same timeframe. Patient states that he has missed his last 2 dialysis sessions. EMS was notified and upon arrival the patient was found to be in distress and subsequent transported to [facility] for further care and evaluation of the aforementioned symptoms. CT scan of the abdomen and pelvis revealed evidence of colitis. Patient also found to have end-stage renal disease needed urgent dialysis, fluid overload, as well as pulmonary edema. Patient also found to have left lung basal lesion. Patient admitted to medical floor . Nephrology team consulted in ED for urgent dialysis. Patient denies fever, chills, chest pain, palpitation, productive cough, skin rash, recent contact, or known exposure to COVID-19. Surgical history Appendectomy, Cholecystectomy, Dialysis access. Denies smoking, alcohol or drug abuse. 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 Allergic to hydromorphone. Patient awake. On 1 litres O2. O2 saturation 98%. No complaint of chest pain, shortness of breath or cough.Complaining slight abdominal pain. No acute respiratory distress at rest. Patient afebrile. No leukocytosis, Blood pressure 106/73, pulse 82 , respirations 18. Chest xray done 07/27/22 reported Cardiomegaly with pulmonary edema, indicative of CHF. CT of abdomenn and pelvis with out contrast 07/27/22 reported Imaging features most concerning for multifocal colitis most pronounced involving the hepatic flexure, infectious, inflammatory as well as ischemic etiologies considered. Gastrology evaluation is recommended. 2. Small volume ascites/free pelvic fluid in the setting of trace basilar effusions and interlobular septal thickening, which may reflect a component of volume overload, hypoproteinemia/systemic disease, intrinsic hepatocellular disease with slight hepatic nodular contour, mild congestive heart failure, or a combination of these entities. 3. Mild aortic adenopathy, nonspecific, statistically reactive. 4. New radiopaque hyperdensity within the left lung base, most concerning for sequelae of interval aspiration of high dense material less likely sequelae of interval intervention or other mimicking etiology. Recommend clinical correlation. 5. Possible cystitis. Correlate with urinalysis. 6. Other ancillary findings as described. Patient is on Levaquin, Metronidazole, albuterol inhaler, famotidine, I/V fluid bolus NSS prn for hypotension. Objective Vital Signs - 12hr 07/29/22 07/29/22 07/29/22 06:02 09:14 12:41 Temperature 97.6 F Pulse Rate 78 Respiratory 18 Rate Blood Pressure 108/75 106/73 O2 Sat by Pulse 100 98 Oximetry Constitutional: no acute distress, alert Eyes: non-icteric ENT: oropharynx moist Neck: supple, no JVD Effort: mildly labored Ascultation: Bilateral: rales Cardiovascular: regular rate and rhythm Gastrointestinal: hypoactive bowel sounds, tender Extremities: no cyanosis, no edema Neurologic: normal mental status, non-focal exam, pupils equal and round Psychiatric: mood appropriate, affect normal CBC and BMP: 07/27/22 16:14 07/28/22 16:34 Abnormal lab findings: Abnormal Labs 07/27/22 07/27/22 07/27/22 16:14 16:14 16:14 Hgb 10.6 L Hct 33.9 L MCHC 31 L RDW 17.7 H Lymph # (Auto) 1.1 L Seg Neutrophils % 70.6 H Chloride 91.0 L BUN 84 H Creatinine 13.1 H Glucose 222 H POC Glucose Alkaline Phosphatase 253 H Troponin T 0.564 H* Triglycerides 175 H HDL Cholesterol 38 L 07/27/22 07/27/22 07/28/22 20:57 22:08 01:11 Hgb Hct MCHC RDW Lymph # (Auto) Seg Neutrophils % Chloride BUN Creatinine Glucose POC Glucose 194 H 190 H Alkaline Phosphatase Troponin T 0.552 H* Triglycerides HDL Cholesterol 07/28/22 07/28/22 07/28/22 07:30 12:42 16:34 Hgb Hct MCHC RDW Lymph # (Auto) Seg Neutrophils % Chloride 92.1 L BUN 93 H Creatinine 14.8 H Glucose 137 H POC Glucose 177 H 142 H Alkaline Phosphatase Troponin T Triglycerides HDL Cholesterol 07/28/22 07/28/22 07/29/22 16:50 21:20 07:36 Hgb Hct MCHC RDW Lymph # (Auto) Seg Neutrophils % Chloride BUN Creatinine Glucose POC Glucose 133 H 163 H 140 H Alkaline Phosphatase Troponin T Triglycerides HDL Cholesterol
--- NOTE | 2022-07-29 18:48 | Progress Note ---
Assessment and Plan End-stage renal disease on hemodialysis Essential hypertension Anemia of ESRD Hyperphosphatemia Hyperparathyroidism Continue HD TTS Continue antihypertensives Hold antihypertensives on hemodialysis days for systolics less than 160 Continue binders Epogen with HD as needed Renally dose medications ESRD diet with 1.2-1. 4 g/kg/d protein intake Subjective Date of service: 07/29/22 Principal diagnosis: Vomiting Interval history: Patient resting in bed Vitals, labs and I/os reviewed Interdisciplinary notes and consults reviewed Objective - Exam Narrative Exam: Constitutional: no acute distress Head: NC/AT Neck: supple Lungs: clear to auscultation CV: RRR, no M/R/G Abdomen: soft, non-tender, bowel sounds present Back: nontender Extremities: no edema, pulses WNL Skin: intact Neuro: no focal deficits, alert and oriented x4 - Vital Signs Vital signs: Vital Signs - 12hr 07/29/22 07/29/22 07/29/22 09:14 09:22 12:41 Pulse Rate 82 Respiratory 18 Rate Blood Pressure 106/73 106/73 O2 Sat by Pulse 98 98 Oximetry 07/29/22 15:51 Pulse Rate Respiratory Rate Blood Pressure O2 Sat by Pulse 96 Oximetry - Lab 07/27/22 16:14 07/28/22 16:34 Most recent lab results Calcium 9.2 mg/dL (8.4-10.2) 07/28/22 16:34 Medications & Allergies - Medications Allergies/Adverse Reactions: Allergies hydromorphone [From Dilaudid] Adverse Reaction (Verified 07/25/22 18:14) Unknown Home Medications: Home Medications Medication Instructions Recorded Confirmed Last Taken Type Albuterol Sulfate [Albuterol 0.63% 0.63 mg IH BID PRN #60 vial 11/03/20 06/01/21 Unknown Rx NEBS] Metoclopramide [Reglan TAB] 5 mg PO ACHS #30 tablet 12/19/20 06/01/21 Unknown Rx Epoetin Wale-Epbx 10,000 Unit 10,000 unit SUB-Q BRENDAN vial 01/12/21 06/01/21 Unknown Rx [Retacrit] Acetaminophen [Acetaminophen TAB] 650 mg PO Q4H PRN tablet 02/26/21 06/01/21 Unknown Rx Insulin Glargine [Lantus VIAL] 12 units SUB-Q QHS units 02/26/21 06/01/21 Unknown Rx Lispro Insulin [HumaLOG] 0 unit SUB-Q ACHS units 02/26/21 06/01/21 Unknown Rx guaiFENesin ER [Mucinex ER] 600 mg PO BID PRN tablet 02/26/21 06/01/21 Unknown Rx lisinopriL [Zestril TAB] 20 mg PO QHS tablet 02/26/21 06/01/21 Unknown Rx Aspirin [Aspirin BABY CHEW TAB] 81 mg PO QDAY #30 tab.chew 06/03/21 Unknown Rx Docusate Sodium [Colace CAP] 100 mg PO BID #30 capsule 06/03/21 Unknown Rx Famotidine [Pepcid] 10 mg PO BID #60 tablet 06/03/21 Unknown Rx Sertraline [Zoloft] 50 mg PO QDAY #30 tablet 06/03/21 Unknown Rx Sevelamer Carbonate [Renvela] 1,600 mg PO TIDWM #90 tablet 06/03/21 Unknown Rx carvediloL [Coreg] 12.5 mg PO BID #60 tablet 06/03/21 Unknown Rx oxyCODONE /ACETAMINOPHEN [Percocet 1 tab PO Q6H PRN #10 tablet 06/03/21 Unknown Rx 5/325 mg] Active Medications: Generic Name Dose Route Start Last Admin Trade Name Freq PRN Reason Stop Dose Admin Acetaminophen 650 mg 07/27/22 19:27 Acetaminophen 325 Mg Tab PO Q4H PRN Pain MILD(1-3)/Fever >100.5/LANZA Albuterol 2.5 mg 07/27/22 19:27 Albuterol 2.5 Mg/3 Ml Nebu IH Q4HRT PRN Shortness Of Breath Aspirin 81 mg 07/28/22 10:00 07/29/22 09:13 Aspirin 81 Mg Tab Chew PO 81 mg QDAY KESHIA Administration Carvedilol 12.5 mg 07/28/22 08:00 07/29/22 17:48 Carvedilol 12.5 Mg Tab PO 12.5 mg BID@0800,1700 KESHIA Administration Dextrose 0 ml 07/27/22 19:30 Dextrose 50% In Water (25gm) 50 Ml Syringe IV Q30MIN PRN Hypoglycemia Protocol Docusate Sodium 100 mg 07/27/22 22:00 07/29/22 09:13 Docusate Sodium 100 Mg Cap PO 100 mg BID KESHIA Administration Epoetin Wale-epbx 10,000 unit 07/27/22 20:00 07/28/22 18:30 Epoetin Wale-Epbx 10,000 Unit/1 Ml Vial SUB-Q 10,000 unit BRENDAN KESHIA Administration Famotidine 10 mg 07/27/22 22:00 07/29/22 09:13 Famotidine 10 Mg Tab PO 10 mg BID KESHIA Administration Guaifenesin 600 mg 07/27/22 19:29 Guaifenesin Er 600 Mg Tab PO BID PRN mucous Sodium Chloride 100 mls @ 999 mls/hr 07/28/22 09:04 Nacl 0.9% IV BRENDAN PRN Hypotension Insulin Human Lispro 0 unit 07/27/22 22:00 07/29/22 17:08 Insulin Lispro 100 Unit/Ml SUB-Q Not Given ACHS [facility] Protocol Levofloxacin 250 mg 07/29/22 10:00 07/29/22 09:13 Levofloxacin 250 Mg Tab PO 250 mg Q24HR KESHIA Administration Protocol Lisinopril 20 mg 07/27/22 22:00 07/28/22 22:26 Lisinopril 20 Mg Tab PO 20 mg QHS KESHIA Administration Metoclopramide HCl 5 mg 07/27/22 22:00 07/29/22 17:34 Metoclopramide 10 Mg Tab PO 5 mg ACHS KESHIA Administration Metronidazole 500 mg 07/28/22 14:00 07/29/22 13:20 Metronidazole 500 Mg Tab PO 500 mg Q8HR KESHIA Administration Protocol Ondansetron HCl 4 mg 07/27/22 19:27 07/28/22 18:32 Ondansetron 4 Mg/2 Ml Inj IV 4 mg Q8H PRN Administration Nausea And Vomiting Oxycodone/Acetaminophen 1 tab 07/27/22 19:27 Oxycodone /Acetaminophen 5-325mg Tab PO Q16H PRN Pain, Moderate (4-6) Sertraline HCl 50 mg 07/28/22 10:00 07/29/22 09:17 Sertraline 50 Mg Tab PO 50 mg QDAY KESHIA Administration Sevelamer Carbonate 1,600 mg 07/28/22 08:00 07/29/22 17:33 Sevelamer Carbonate 800 Mg Tab PO 1,600 mg TIDWM KESHIA Administration Sodium Chloride 10 ml 07/27/22 22:00 07/29/22 09:14 Sodium Chloride 0.9% 10 Ml Flush Syringe IV 10 ml BID KESHIA Administration Sodium Chloride 10 ml 07/27/22 19:27 07/28/22 06:50 Sodium Chloride 0.9% 10 Ml Flush Syringe IV 10 ml PRN PRN Administration LINE FLUSH
[2022-07-29] MEDS: LISINOPRIL 20 MG TAB PO SCH (22:25)
--- NOTE | 2022-07-29 22:56 | Gastroenterology Progress Note ---
Assessment and Plan 1. GI: pt w/ nausea, abdominal pain with ct w/ possible gastritis, colitis - pt overall improved - advance diet as tolerated - continue Pepcid - continue IV antibiotics -if stable in am ok to dc from GI standpoint - will sill follow Subjective Date of service: 07/29/22 Principal diagnosis: Vomiting Interval history: - reports overall GI symptoms improved, Tolerating po Objective - Constitutional Vitals: Temp Pulse Resp BP Pulse Ox 98.1 F 77 18 121/51 98 07/29/22 21:32 07/29/22 21:32 07/29/22 21:32 07/29/22 21:32 07/29/22 21:32 General appearance: no acute distress - EENT Eyes: PERRL - Respiratory Respiratory: bilateral: CTA - Cardiovascular Rhythm: regular Heart Sounds: Present: S1 & S2 - Gastrointestinal General gastrointestinal: Present: soft, non-tender, non-distended - Labs CBC & Chem 7: 07/27/22 16:14 07/28/22 16:34 Labs: Laboratory Results - last 24 hr 07/28/22 07/28/22 07/28/22 12:42 16:50 21:20 POC Glucose 142 H 133 H 163 H 07/29/22 07:36 POC Glucose 140 H
[2022-07-30] MEDS: metroNIDAZOLE 500 MG TAB PO SCH ×2 (05:43→12:38)
[2022-07-30 06:19] VITALS: BP 123/56
[2022-07-30] MEDS: INSULIN LISPRO 100 UNIT/ML SUB-Q SCH ×2 (08:06→12:25)
[2022-07-30] MEDS: METOCLOPRAMIDE 10 MG TAB PO SCH ×2 (08:43→12:31)
[2022-07-30] MEDS: carvediloL 12.5 MG TAB PO SCH (08:44)
[2022-07-30] MEDS: SEVELAMER CARBONATE 800 MG TAB PO SCH ×2 (08:44→12:27)
--- NOTE | 2022-07-30 10:30 | Progress Note ---
Assessment and Plan (1) Colitis Status: Acute Plan to address problem: GI team consulted in ED, further care and evaluation as per GI team. Continue empiric antibiotics (2) End stage renal disease Status: Acute Plan to address problem: Nephrology team consulted in ED. Dialysis as per renal team. Renal diet, strict I's/O, avoid nephrotoxic agents. HD per renal team (3) Fluid overload Status: Acute Plan to address problem: Urgent dialysis as per renal team, monitor fluid balance. (4) Pulmonary edema Status: Acute Plan to address problem: Urgent dialysis, supportive care, supplemental oxygen. Pulmonary toilet. Pulmonary team consulted. (5) Left pulmonary lesion Status: Acute Plan to address problem: Pulmonary team consulted, check x-ray, continue to monitor. Follow pulmonary recommendation (6) DVT prophylaxis Status: Acute Plan to address problem: SCD to bilateral lower extremities while in bed Daily clinical course: 07/28; Continue antibiotics for colitis, placed on clear liquid diet, plan for hemodialysis today. Follow pulmonary recommendation. 07/29: Advance diet as tolerated. DC in the am after HD, follow clinically. Subjective Date of service: 07/29/22 Principal diagnosis: Vomiting Interval history: Patient seen and examined. Medical records and medication list reviewed. No acute event overnight noted by the RN. Patient continued to complains of abdominal pain Discussed plan of care at bedside with patient. Objective - Exam Narrative Exam: GENERAL: well-developed and well-nourished -Chinese male lying on bed appeared to be in mild discomfort. HEENT: Normocephalic. Atraumatic. No conjunctival congestion or icterus. Patient has moist mucous membranes. NECK: Supple. Trachea midline. CHEST/LUNGS: Clear to auscultated bilaterally, breathing nonlabored. No wheezes crackles or rhonchi. HEART/CARDIOVASCULAR: Regular in rate and rhythm. S1 and S2 positive. ABDOMEN: Abdomen is soft. Patient has normal bowel sounds. SKIN: There is no rash. Warm and dry. NEURO: No focal motor deficit. Follows command. MUSCULOSKELETAL: No joint effusion or tenderness. EXTRIMITY: No edema, no cyanosis or clubbing. PSYCH: Cooperative. - Constitutional Vitals: Vital Signs - 12hr 07/30/22 07/30/22 05:00 08:44 Temperature 97.9 F Pulse Rate 75 75 Respiratory 18 Rate Blood Pressure 123/56 [Left] O2 Sat by Pulse 98 Oximetry - Labs CBC & Chem 7: 07/27/22 16:14 07/28/22 16:34 Labs: Abnormal lab results 07/30/22 Range/Units 07:53 POC Glucose 215 H (70-105) mg/dL HEART Score - HEART Score Troponin: Troponin T 0.552 ng/mL (0.00-0.029) H* 07/27/22 20:57
--- NOTE | 2022-07-30 10:50 | Gastroenterology Progress Note ---
Assessment and Plan 1. GI: pt w/ nausea, abdominal pain with ct w/ possible gastritis, colitis - pt overall improved - tolerating PO intake, continue to advance diet as tolerated - continue Pepcid, can add PPI if this is not enough to control symptoms - continue IV antibiotics Subjective Date of service: 07/30/22 Principal diagnosis: Vomiting Interval history: Pt seen and examined. Lying comfortably in bed. Only complaint is some indigestion which he states started 5 mins ago. Denies N/V, abd pain or diarrhea. States he is tolerating PO intake w/o issues. Objective - Constitutional Vitals: Temp Pulse Resp BP Pulse Ox 97.9 F 75 18 123/56 98 07/30/22 05:00 07/30/22 08:44 07/30/22 05:00 07/30/22 05:00 07/30/22 05:00 General appearance: no acute distress - Gastrointestinal General gastrointestinal: Present: soft, non-tender, non-distended - Labs CBC & Chem 7: 07/27/22 16:14 07/28/22 16:34 Labs: Laboratory Results - last 24 hr 07/30/22 07:53 POC Glucose 215 H
[2022-07-30] MEDS ORDERED: levoFLOXacin 500 MG TAB PO SCH (12:00)
[2022-07-30] MEDS: FAMOTIDINE 10 MG TAB PO SCH (12:27)
[2022-07-30] MEDS: ASPIRIN 81 MG TAB CHEW PO SCH (12:27)
[2022-07-30] MEDS: DOCUSATE SODIUM 100 MG CAP PO SCH (12:27)
[2022-07-30] MEDS: SERTRALINE 50 MG TAB PO SCH (12:27)
--- NOTE | 2022-07-30 13:49 | Discharge Summary ---
Providers - Providers Date of Admission: 07/27/22 19:27 Date of discharge: 07/30/22 Attending physician: ANASTACIO CEDEÑO 07/27/22 16:53 Consult to Physician [CONS] Urgent Comment: Consulting Provider: ABDELRAHMAN MADRID Physician Instructions: Reason For Exam: esrd needing dialysis 07/27/22 18:56 Consult to Physician [CONS] Urgent Comment: Consulting Provider: AYO MILLS Physician Instructions: Reason For Exam: colitis 07/27/22 19:00 Consult to Physician [CONS] Urgent Comment: Consulting Provider: FAITH ST Physician Instructions: Reason For Exam: Radiopaque material on lung CT Primary care physician: SANDRITA QUIÑONES Hospitalization Condition: Stable Hospital course: (1) Colitis Status: Acute Plan to address problem: GI team consulted in ED, further care and evaluation as per GI team. Continue empiric antibiotics (2) End stage renal disease Status: Acute Plan to address problem: Nephrology team consulted in ED. Dialysis as per renal team. Renal diet, strict I's/O, avoid nephrotoxic agents. HD per renal team (3) Fluid overload Status: Acute Plan to address problem: Urgent dialysis as per renal team, monitor fluid balance. (4) Pulmonary edema Status: Acute Plan to address problem: Urgent dialysis, supportive care, supplemental oxygen. Pulmonary toilet. Pulmonary team consulted. (5) Left pulmonary lesion Status: Acute Plan to address problem: Pulmonary team consulted, check x-ray, continue to monitor. Follow pulmonary recommendation (6) DVT prophylaxis Status: Acute Plan to address problem: SCD to bilateral lower extremities while in bed Daily clinical course: 07/28; Continue antibiotics for colitis, placed on clear liquid diet, plan for hemodialysis today. Follow pulmonary recommendation. 07/29: Advance diet as tolerated. DC in the am after HD, follow clinically. Disposition: 01 HOME / SELF CARE / HOMELESS Time spent for discharge: 34 minutes Core Measure Documentation - Palliative Care Palliative Care/ Comfort Measures: Not Applicable Exam - Physical Exam Narrative exam: GENERAL: well-developed and well-nourished -[place]osoth[place] male lying on bed appeared to be in mild discomfort. HEENT: Normocephalic. Atraumatic. No conjunctival congestion or icterus. Patient has moist mucous membranes. NECK: Supple. Trachea midline. CHEST/LUNGS: Clear to auscultated bilaterally, breathing nonlabored. No wheezes crackles or rhonchi. HEART/CARDIOVASCULAR: Regular in rate and rhythm. S1 and S2 positive. ABDOMEN: Abdomen is soft. Patient has normal bowel sounds. SKIN: There is no rash. Warm and dry. NEURO: No focal motor deficit. Follows command. MUSCULOSKELETAL: No joint effusion or tenderness. EXTRIMITY: No edema, no cyanosis or clubbing. PSYCH: Cooperative. - Constitutional Vitals: Temp Pulse Resp BP Pulse Ox 97.9 F 75 18 123/56 98 07/30/22 05:00 07/30/22 08:44 07/30/22 05:00 07/30/22 05:00 07/30/22 05:00 Plan Activity: advance as tolerated Weight Bearing Status: Weight Bear as Tolerated Diet: renal Special Instructions: restrict fluid intake to (1.2 L daily ) Follow up with: SANDRITA QUIÑONES MD [Primary Care Provider] - 3-5 Days Prescriptions: metroNIDAZOLE [Flagyl TAB] 500 mg PO Q8HR #18 tablet levoFLOXacin [Levaquin TAB] 500 mg PO Q48HR #3 tablet
--- NOTE | 2022-07-30 17:11 | Progress Note ---
Assessment and Plan Pulmonary edema Accelerated hypertension Acute gastritis Colitis Diabetes mellitus ESRD (end stage renal disease) on dialysis History of pulmonary embolism - Abdominal pain resolved - complete AB's per ID recommendations (on Flagyl & Levaquin) - Blood pressure better controlled - continue HD/UF for toxin and water clearance re: Pulmonary edema - prn supplemental oxygen to keep O2 sats > 90% - prn bronchodilators (ABDELRAHMAN) with pulm hygiene per RT - continue to avoid nephrotoxins, renally dose all medications - mobility protocols to prevent pressure ulcers - PT/OT as tolerated - Wound care per RN/WCT - prn analgesia per pain score - accuchecks with glycemic control per SSI for target blood glucose < 180 mg/dL - tobacco abstinence strongly counseled at the bedside - home oxygen evaluation at discharge - GI & VTE prophylaxis - Flu & pneumovax per protocol - Pulmonary out patient follow up for PFTs and optimization of respiratory status - continue other care per attending / other consultants ... re-evaluate in am & prn Subjective Date of service: 07/30/22 Principal diagnosis: Pulmonary edema; Accelerated HTN; Acute gastritis; DM II; Colitis; ESRD; PE Interval history: Patient is seen today for: Pulmonary edema; Accelerated HTN; Acute gastritis; DM II; Colitis; ESRD on dialysis; H/O P.E. Seen and examined at bedside; 24hour events reviewed; nursing and respiratory care staff consulted; no adverse overnight events reported to me; resting peacefully in bed; denies N/V/F/C Objective Vital Signs - 12hr 07/30/22 07/30/22 08:44 14:46 Pulse Rate 75 O2 Sat by Pulse 100 Oximetry Constitutional: no acute distress, alert Eyes: non-icteric ENT: oropharynx moist Neck: supple, no JVD Effort: mildly labored Ascultation: Bilateral: rales Cardiovascular: regular rate and rhythm Gastrointestinal: hypoactive bowel sounds, tender Extremities: no cyanosis, no edema Neurologic: normal mental status, non-focal exam, pupils equal and round Psychiatric: mood appropriate, affect normal CBC and BMP: 07/27/22 16:14 07/28/22 16:34 Abnormal lab findings: Abnormal Labs 07/27/22 07/27/22 07/27/22 16:14 16:14 16:14 Hgb 10.6 L Hct 33.9 L MCHC 31 L RDW 17.7 H Lymph # (Auto) 1.1 L Seg Neutrophils % 70.6 H Chloride 91.0 L BUN 84 H Creatinine 13.1 H Glucose 222 H POC Glucose Alkaline Phosphatase 253 H Troponin T 0.564 H* Triglycerides 175 H HDL Cholesterol 38 L 07/27/22 07/27/22 07/28/22 20:57 22:08 01:11 Hgb Hct MCHC RDW Lymph # (Auto) Seg Neutrophils % Chloride BUN Creatinine Glucose POC Glucose 194 H 190 H Alkaline Phosphatase Troponin T 0.552 H* Triglycerides HDL Cholesterol 07/28/22 07/28/22 07/28/22 07:30 12:42 16:34 Hgb Hct MCHC RDW Lymph # (Auto) Seg Neutrophils % Chloride 92.1 L BUN 93 H Creatinine 14.8 H Glucose 137 H POC Glucose 177 H 142 H Alkaline Phosphatase Troponin T Triglycerides HDL Cholesterol 07/28/22 07/28/22 07/29/22 16:50 21:20 07:36 Hgb Hct MCHC RDW Lymph # (Auto) Seg Neutrophils % Chloride BUN Creatinine Glucose POC Glucose 133 H 163 H 140 H Alkaline Phosphatase Troponin T Triglycerides HDL Cholesterol 07/30/22 07/30/22 07:53 11:40 Hgb Hct MCHC RDW Lymph # (Auto) Seg Neutrophils % Chloride BUN Creatinine Glucose POC Glucose 215 H 256 H Alkaline Phosphatase Troponin T Triglycerides HDL Cholesterol
--- NOTE | 2022-07-30 18:55 | Progress Note ---
Assessment and Plan End-stage renal disease on hemodialysis Essential hypertension Anemia of ESRD Hyperphosphatemia Hyperparathyroidism Continue HD TTS, due tomorrow, no indication for HD today per labs/clinical assessment Continue antihypertensives Hold antihypertensives on hemodialysis days for systolics less than 160 Continue binders Epogen with HD as needed Renally dose medications ESRD diet with 1.2-1. 4 g/kg/d protein intake Subjective Date of service: 07/30/22 Principal diagnosis: Pulmonary edema; Accelerated HTN; Acute gastritis; DM II; Colitis; ESRD; PE Interval history: Resting in bed, no acute issues noted Objective - Exam Narrative Exam: Constitutional: no acute distress Head: NC/AT Neck: supple Lungs: clear to auscultation CV: RRR, no M/R/G Abdomen: soft, non-tender, bowel sounds present Back: nontender Extremities: no edema, pulses WNL Skin: intact Neuro: no focal deficits, alert and oriented x4 - Vital Signs Vital signs: Vital Signs - 12hr 07/30/22 07/30/22 08:44 14:46 Pulse Rate 75 O2 Sat by Pulse 100 Oximetry - Lab 07/27/22 16:14 07/28/22 16:34 Most recent lab results Calcium 9.2 mg/dL (8.4-10.2) 07/28/22 16:34 Medications & Allergies - Medications Allergies/Adverse Reactions: Allergies hydromorphone [From Dilaudid] Adverse Reaction (Verified 07/25/22 18:14) Unknown Home Medications: Home Medications Medication Instructions Recorded Confirmed Last Taken Type Albuterol Sulfate [Albuterol 0.63% 0.63 mg IH BID PRN #60 vial 11/03/20 06/01/21 Unknown Rx NEBS] Metoclopramide [Reglan TAB] 5 mg PO ACHS #30 tablet 12/19/20 06/01/21 Unknown Rx Epoetin Wale-Epbx 10,000 Unit 10,000 unit SUB-Q BRENDAN vial 01/12/21 06/01/21 Unknown Rx [Retacrit] Acetaminophen [Acetaminophen TAB] 650 mg PO Q4H PRN tablet 02/26/21 06/01/21 Unknown Rx Insulin Glargine [Lantus VIAL] 12 units SUB-Q QHS units 02/26/21 06/01/21 Unknown Rx Lispro Insulin [HumaLOG] 0 unit SUB-Q ACHS units 02/26/21 06/01/21 Unknown Rx guaiFENesin ER [Mucinex ER] 600 mg PO BID PRN tablet 02/26/21 06/01/21 Unknown Rx lisinopriL [Zestril TAB] 20 mg PO QHS tablet 02/26/21 06/01/21 Unknown Rx Aspirin [Aspirin BABY CHEW TAB] 81 mg PO QDAY #30 tab.chew 06/03/21 Unknown Rx Docusate Sodium [Colace CAP] 100 mg PO BID #30 capsule 06/03/21 Unknown Rx Famotidine [Pepcid] 10 mg PO BID #60 tablet 06/03/21 Unknown Rx Sertraline [Zoloft] 50 mg PO QDAY #30 tablet 06/03/21 Unknown Rx Sevelamer Carbonate [Renvela] 1,600 mg PO TIDWM #90 tablet 06/03/21 Unknown Rx carvediloL [Coreg] 12.5 mg PO BID #60 tablet 06/03/21 Unknown Rx oxyCODONE /ACETAMINOPHEN [Percocet 1 tab PO Q6H PRN #10 tablet 06/03/21 Unknown Rx 5/325 mg] levoFLOXacin [Levaquin TAB] 500 mg PO Q48HR #3 tablet 07/30/22 Unknown Rx metroNIDAZOLE [Flagyl TAB] 500 mg PO Q8HR #18 tablet 07/30/22 Unknown Rx
--- NOTE | 2022-08-01 13:54 | Electrocardiograph Report ---
[facility] Test Date: 2022-07-27 Test Time: 17:08:30 Pat Name: GAY OSWALD Department: Room: A383 Gender: M Maori Liaison Adviser: [birth year] : 1985 Requested By: KELBY ARMENDARIZ Order Number: [id number] Reading MD: Jose Luis Steele Measurements Intervals Zullinger Rate: 92 P: 47 VA: 198 QRS: 57 QRSD: 110 T: 169 QT: 384 QTc: 477 Interpretive Statements Sinus rhythm Borderline prolonged VA interval Probable left atrial enlargement Right ventricular conduction delay Nonspecific ST segment abnormality Compared to ECG 05/31/2021 17:26:40 No significant change Electronically Signed On 08-01-2022 13:53:51 EDT by Jose Luis Steele
== END 2022-07-30 18:30 | disposition home or self-care (01) | DRG 391 ==
LOC: ED 13:47 → 3A 19:27
PROVIDERS: ADMIT Internal Medicine; ATTEND Internal Medicine
PROC: 5A1D70Z Performance of Urinary Filtration, Intermittent, Less than 6 Hours Per Day (ICD-10-PCS; principal; 2022-07-28)
DX: K29.00 Acute gastritis without bleeding (principal); N18.6 End stage renal disease; J81.1 Chronic pulmonary edema; I12.0 Hypertensive chronic kidney disease with stage 5 chronic kidney disease or end stage renal disease; K52.9 Noninfective gastroenteritis and colitis, unspecified; Z20.822 Contact with and (suspected) exposure to COVID-19; E87.70 Fluid overload, unspecified; E11.22 Type 2 diabetes mellitus with diabetic chronic kidney disease; Z99.2 Dependence on renal dialysis; D63.1 Anemia in chronic kidney disease; E21.3 Hyperparathyroidism, unspecified; M19.90 Unspecified osteoarthritis, unspecified site; Z83.3 Family history of diabetes mellitus; Z82.49 Family history of ischemic heart disease and other diseases of the circulatory system; I25.2 Old myocardial infarction; Z90.49 Acquired absence of other specified parts of digestive tract; Z86.711 Personal history of pulmonary embolism; Z91.14 Patient's other noncompliance with medication regimen
CPT/HCPCS: 36415; 71045; 74176; 80048; 80053; 80061; 80074; 82962; 83690; 84484; 85025; 93005; 94760; 96365; 96367; 96375; 99285; G0378; J3490; J7517; Q9967; J0885; J1815; J1940; J1956; J2270; J2405; Q0162